=== PATIENT | female | born 1990 | race Caucasian/White ===

== ENCOUNTER 2022-06-30 09:39 | Outpatient (CLI) | payer MEDICARE, OTHER, SELFPAY ==
--- OUTSIDE RECORDS SUMMARY | 2022-06-30 09:47 | XMS_ITS | Encounter Summary ---
:1990 Author Organization [facility] Address [address] [place] [id number] Care Team Providers Name Role Phone Monty Musa MD Primary Care Provider Alfonso Tang Unavailable Unavailable Dayanara Bee MD Unavailable Min Lange MD Unavailable Unavailable Albert Gee MD Unavailable Mel Buckley RN Unavailable Douglas Cadet MD Unavailable [phone] Rosalba Pendleton MANUFACTURING FINANCE MANAGER SAUSAGE SMOKER Unavailable Rosalba Pendleton APRN [employer]AGE S[employer]KER Unavailable Douglas Cadet MD Unavailable [phone] Albert Gee MD Unavailable Reason for Referral Consultation (Routine: Next available opening) - Pending Review Specialty Diagnoses / Procedures Referred By Contact Refer red To Contact Cardiovascular Disease Diagnoses Vasovagal syncope Autonomic dysfunction Albert Gee MD [address] [facility] [address] [place] [address] Referral ID Status Reason Start Date Expiration Date Visits V isits Requested Authorized [id number] Pending 05/28/2022 05/28/2023 1 1 Review Reason for Visit Reason Comments Follow Up No questions while rooming p t, pt requested removal of a medication during e check in, phq9 score of 11 today, pt declined triage, states she speaks to counselor Consultation (Routine: Next available opening) - Pending Review Specialty Diagnoses / Procedures Referred By Contact Refer red To Contact Cardiovascular Disease Diagnoses Vasovagal syncope Albert Gee MD [address] [place] [address] [address] [place] [address] Referral ID Status Reason Start Date Expiration Date Visits V isits Requested Authorized [id number] Pending 03/03/2022 03/03/2023 1 1 Review Encounter Details Date Type Department Care Team Description 05/28/[address] [facility] Albert Geeg al syncope; Heart Clinic Christina Carlos MD Autonomic dysfunction [address] [id number] [place], [place] [phone] Social History Tobacco Use Types Packs/Day Years Used Date Smoking Tobacco: Never Smokeless Tobacco: Never Alcohol Use Standard Drinks/Week Comments No 0 (1 standard drink = 0.6 oz pure alcoho l) Sex Assigned at Date Recorded Female 10/31/2021 7:59 AM SOFTWARE ARCHITECT COVID-19 Exposure Response Date Recorded In the last 10 days, have you been in contact with No / Unsu re 05/04/2022 7:58 AM CDT someone who was confirmed or suspected to have Coronavirus/COVID-19? documented as of this encounter Patient Instructions Patient Zion Blake RN - 05/28/2022 12:00 PM CDT Images from the original note were not included. You were seen in the Electrophysiology Clinic today by: Dr Gee Plan: Medication Changes: Increase fludrocortisone to 0.2mg daily Follow up visit: 2 months If you have further questions, please utilize [employer] to contact us. Your Care Team: EP Cardiology Telephone Number Nurse Line DIAZ Linder RN For scheduling appointments: Leslie For procedure scheduling: Lizet Laguna For the Device Clinic (Pacemakers, ICDs, Loop Recorders) During business hours: [phone] After business hours: [phone]- select option 4 and ask for job code [id number]. On-call asphalt paver operator for after hours or on weekends: [phone], option #4, and ask to speak to the on-call asphalt paver operator. Cardiovascular Clinic: [address] [place] [address]. [place] [address] As always, Thank you for trusting us with your health care needs! documented in this encounter Progress Notes Brit Johnson MA - 05/28/2022 12:00 PM CDT Latricia is a 32 year old who is being evaluated via a billable video visit. How would you like to obtain your AVS? MyChart If the video visit is dropped, the invitation should be resent by: Text to cell phone: [phone] Will anyone else be joining your video visit? No SUE Villa/WAYNE Answers for HPI/ROS submitted by the patient on 05/28/2022 If you checked off any problems, how difficult have these problems made it for you to do your work, take care of things at home, or get along with other people?: Somewhat difficult PHQ9 TOTAL SCORE: 11 Albert Gee MD - 05/28/2022 12:00 PM CDT HPI: Latricia is a 32-year-old woman who is being followed in this clinic for recurrent vasovagal faints. Latricia is not working outside the home currently. She does not recognize a consistent trigger but feels that heart whether may be contributing. She continues to take fludrocortisone 0.1 daily and uses compressive stockings on her lower legs. She uses 2 Vitassium caplets daily and about 30 ounces of Pedialyte. At today's visit we reviewed her not an exercise test which was revealed excellent heart rate response and excellent stamina. Also reviewed the latest ambulatory ECG monitor in which she did have a faint but it occurred during sinus rhythm with a heart rate in the 90s. There were no significant abnormal rhythms detected. Despite the current treatment schedule Latricia continues to have symptoms. These are occurring about twice per week. 1 recent episode was typical. She was driving and felt unwell with symptoms of being hot and nausea. She pulled over to the side of the road and was noted by a witness to be sweating and guerrero. She did faint after she pulled over and open the door. These symptoms were very typical of vasovagal episode. Based on Latricia's continuing symptoms from the discussed the role of using compressive undergarments such as spanx as well as increasing her fludrocortisone to 0.2 daily. If there is does not seem to beadequate we will add midodrine our next visit. Latricia voiced understanding and agreement with the plan. PAST MEDICAL HISTORY: Past Medical History: Diagnosis Date ??? Anesthesia complication sensitivity ??? Autonomic dysfunction ??? Chronic constipation ??? Depression ??? Depressive disorder ??? Generalized anxiety disorder ??? History of colonic polyps ??? HLD (hyperlipidemia) ??? Migraines ??? Mixed sleep apnea Central and obstructive according to 05/05/16 PSG ??? Obesity ??? Other nervous system complications ??? PCOS (polycystic ovarian syndrome) ??? Stomach problems ??? Syncope CURRENT MEDICATIONS: Current Outpatient Medications Medication Sig Dispense Refill ??? clonazePAM (KLONOPIN) 0.5 MG tablet Take 0.5 mg by mouth daily ??? clonazePAM (KLONOPIN) 0.5 MG tablet Take 0.5 mg by mouth as needed ??? DULoxetine (CYMBALTA) 30 MG capsule Take 30 mg by mouth 2 times daily ??? erenumab-aooe (AIMOVIG) 140 MG/ML injection Inject 1 mL (140 mg) Subcutaneous every 30 days 1 mL12 ??? fludrocortisone (FLORINEF) 0.1 MG tablet Take 1 tablet (0.1 mg) by mouth daily 90 tablet 2 ??? hydrOXYzine (ATARAX) 50 MG tablet Take 50 mg by mouth daily ??? ipratropium (ATROVENT) 0.03 % nasal spray ??? KURVELO 0.15-30 MG-MCG tablet Take 0.15-30 tablets by mouth ??? linaclotide (LINZESS) 145 MCG capsule Take 2 capsules (290 mcg) by mouth every morning (before breakfast) 60 capsule 11 ??? meclizine (ANTIVERT) 25 MG tablet TAKE 1 TABLET BY MOUTH THREE TIMES DAILY ??? ondansetron (ZOFRAN-ODT) 4 MG disintegrating tablet DISSOLVE 1 TABLET (4 MG TOTAL) ON TONGUE EVERY 8 (EIGHT) HOURS NEEDED FOR NAUSEA. ??? order for DME Equipment being ordered: Micro climate cooling vest 1 kit 0 ??? prochlorperazine (COMPAZINE) 5 MG tablet Take 1-2 tablets (5-10 mg) by mouth every 6 hours as needed for nausea or vomiting 20 tablet 3 ??? SUMAtriptan (IMITREX) 100 MG tablet Take 1 tablet (100 mg) by mouth at onset of headache for migraine (may repeat in 2 hours as needed. Max 2 tabs in 24 hours) 12 tablet 6 ??? ubrogepant (UBRELVY) 100 MG tablet Take 1 tablet (100 mg) by mouth at onset of headache (may repeat in 2 hours as needed. Max 2 tabs in 24 hours) 20 tablet 9 PAST SURGICAL HISTORY: Past Surgical History: Procedure Laterality Date ??? APPENDECTOMY ??? APPENDECTOMY ??? BREAST SURGERY ??? COLONOSCOPY N/A 12/10/2016 Procedure: COMBINED COLONOSCOPY, SINGLE OR MULTIPLE BIOPSY/POLYPECTOMY BY BIOPSY; Surgeon: Chaitanya Colon MD; Location: [facility] ??? COLONOSCOPY WITH CO2 INSUFFLATION N/A 12/13/2014 Procedure: COLONOSCOPY WITH CO2 INSUFFLATION; Surgeon: Adelso Dawson MD; Location: [facility] ??? ORTHOPEDIC SURGERY ??? ZZC EXPLORATORY OF ABDOMEN ALLERGIES: Allergies Allergen Reactions ??? Augmentin GI Disturbance ? ? Vicodin Hp [Apap-Fd&C Blue #1-Hydrocodone] FAMILY HISTORY: Family History Problem Relation Age of Onset ??? Colon Polyps Other grandfather ??? Cancer - colorectal Father 50 ??? Diabetes Father ??? Coronary Artery Disease Father ??? Hyperlipidemia Father ??? Colon Cancer Father ??? Colon Polyps Father ??? Obesity Father ??? Cancer Other breast ??? Coronary Artery Disease Mother ??? Hyperlipidemia Mother ??? Aneurysm Mother ??? Colon Polyps Mother ??? Depression Mother ??? Anxiety Disorder Mother ??? Anesthesia Reaction Mother ??? Cerebrovascular Disease Maternal Grandmother ??? Diabetes Paternal Grandmother ??? Breast Cancer Paternal Grandmother ??? Ovarian Cancer Paternal Grandmother ??? Cerebrovascular Disease Other ??? Colon Polyps Other ??? Breast Cancer Other ??? Ovarian Cancer Sister ??? Crohn's Disease No family hx of ??? Ulcerative Colitis No family hx of SOCIAL HISTORY: Social History Tobacco Use ??? Smoking status: Never Smoker ??? Smokeless tobacco: Never Used Substance Use Topics ??? Alcohol use: No ??? Drug use: No ROS: Constitutional: No fever, chills, or sweats. Weight stable. ENT: No visual disturbance, . Cardiovascular: As per HPI. Respiratory: No cough, hemoptysis. GI: No nausea, vomiting, . : No hematuria. Integument: Negative. Psychiatric: Negative. Hematologic: , no easy bleeding. Neuro: Negative. Endocrinology: No significant heat or cold intolerance Musculoskeletal: No myalgia. Exam: There were no vitals taken for this visit. GENERAL APPEARANCE: healthy, alert and no distress HEENT: no icterus,no central cyanosis NECK:JVP not elevated RESPIRATORY:no rales, rhonchi or wheezes, no use of accessory muscles, no retractions, respirations are unlabored, normal respiratory rate NEURO: alert and oriented to person/place/time, normal speechand affect SKIN: no ecchymoses, no rashes Labs: CBC RESULTS: Lab Results Component Value Date WBC 4.7 03/04/2022 WBC 5.2 04/10/2016 RBC 4.49 03/04/2022 RBC 4.29 04/10/2016 HGB 14.0 03/04/2022 HGB 13.3 04/10/2016 HCT 40.7 03/04/2022 HCT 38.9 04/10/2016 MCV 91 03/04/2022 MCV 91 04/10/2016 MCH 31.2 03/04/2022 MCH 31.1 04/10/2016 MCHC 34.4 03/04/2022 MCHC 34.2 04/10/2016 RDW 12.9 03/04/2022 RDW 12.2 04/10/2016 PLT 222 03/04/2022 PLT 232 04/10/2016 PLT 257 01/07/2015 BMP RESULTS: Lab Results Component Value Date NA 135 03/04/2022 NA 137 04/10/2016 POTASSIUM 4.1 03/04/2022 POTASSIUM 3.9 04/10/2016 CHLORIDE 108 03/04/2022 CHLORIDE 103 04/10/2016 CO2 25 03/04/2022 CO2 24 01/07/2015 ANIONGAP 2 (L) 03/04/2022 ANIONGAP 10 04/10/2016 GLC 82 03/04/2022 GLC 82 04/10/2016 BUN 9 03/04/2022 BUN 8 01/07/2015 CR 0.56 03/04/2022 CR 0.72 04/10/2016 GFRESTIMATED >90 03/04/2022 GFRESTIMATED >90 Non GFR Calc 01/07/2015 GFRESTBLACK >90 GFR Calc 01/07/2015 JESUS 9.3 03/04/2022 JESUS 9.3 04/10/2016 INR RESULTS: No results found for: INR Procedures: PULMONARY FUNCTION TESTS: No flowsheet data found. ECHOCARDIOGRAM: No results found for this or any previous visit (from the past 8760 hour(s)). Assessment and Plan: 1. Recurrent vasovagal syncope resistant to current treatment strategy 2. Excellent exercise tolerance based on Brad study 3. Documented syncopal episode on ambulatory monitor in sinus rhythm in the 90s. Plan 1. Increase fludrocortisone to 0.2 mg daily- Please provide prescription to [facility] for 3-month supply and 4 refills 2. Follow-up clinic visit in approximately 2 months to assess need for adding midodrine Video on 12: 00; video of 12: 20 Platform Doximity Patient at home; clinic [facility] heart Total elapsed time today with chart review, video visit and documentation 40 minutes I very much appreciated the opportunity to see and assess Latricia Hatch in the clinic today. Please do not hesitate to contact my office if you have any questions or concerns. Albert Gee MD Cardiac Arrhythmia Service [facility] [phone] CC ALBERT GEE documented in this encounter Nursing Notes Brit Johnson MA - 05/28/2022 12:00 PM CDT Chief Complaint Patient presents with ??? Follow Up No questions while rooming pt, pt requested removal of a medication during e check in, phq9 score of 11 today, pt declined triage, states she speaks to counselor Patient declined individual allergy and medication review by information support project manager because patient denies any changes since echeck-in completion and states all information entered during echeck-in remains accurate. SUE Villa/WAYNE Zion Rendon RN - 05/28/2022 12:00 PM CDT Received PHQ9 red alert. Virtual bottle gauger documented that patient declined speaking to triage nurse, as she sees a counselor. Vice President Of Advertising has also notified provider per protocol. documented in this encounter Miscellaneous Notes Addendum Note - Zion Rendon RN - 05/28/2022 12:00 PM CDT Addended by: ZION RENDON on: 05/28/2022 02:08 PM Modules accepted: Orders, SmartSet documented in this encounter Plan of Treatment Upcoming Encounters Date Type Specialty Care Team Description 08/19/2022 Office Visit Gastroenterology Mirza Vasquez MD [address] [place] [id number] (Wo rk) Scheduled Referrals Name Type Priority Associated Diagnoses Order S chedule Follow-Up with Referral Routine: Next Vasovagal syncop e Expected: Cardiology available opening Autonomic 07/28/2022 dysfunction (Approximate), Expires: 05/28/2023 documented as of this encounter Visit Diagnoses Diagnosis Vasovagal syncope Syncope and collapse Autonomic dysfunction Unspecified disorder of autonomic nervou s system documented in this encounter Additional Health Concerns Assessment Noted Time PHQ-9 Depression Total Score: 11 05/28/2022 11:52 AM C DT documented as of this encounter Care Teams Cement Block Maker Relationship Specialty Start Date End Date Monty Musa, PCP - General Family Medicine 08/13/21 [facility] [address] [place] [address] Alfonso Tang Family Practice 08/13/21 Dayanara Bee MD Pediatrics 12/26/[address] [place] [address] [address] [place], [place] [id number] Min Lange MD Neurology 03/30/16 Albert Christopher MD Cardiology 10/27/16 MD [place] [address] [facility] [address] [place] [address] Mel Buckley, Nurse Coordinator Physical Medicine and 12/02/16 senior c software engineer Douglas Cadet MD Gastroenterology 08/13/21 [facility] [place] [address] [place] [address] Rosalba Pendleton Nurse Practitioner Neurology 09/05/21 [facility] [employer] SAUSAGE SMOKER [address] [address] Rosalba Pendleton Assigned Neuroscience 11/09/21 Alexi, Provider MANUFACTURING FINANCE MANAGER SAUSAGE SMOKER [address] [id number] Douglas Cadet Assigned 03/14/22 [facility] [address] [place] [address] Albert Gee Assigned Heart and 03/14/22 MD [place] Vascular Provider [address] [facility] [address] [place], [place] [address] documented as of this encounter
--- OUTSIDE RECORDS SUMMARY | 2022-06-30 09:47 | XMS_ITS | Encounter Summary ---
:1990 Author Organization [place] Address [address] [place] [address] Care Team Providers Name Role Phone Monty Musa MD Primary Care Provider Alfonso Tang Unavailable Unavailable Dayanara Bee MD Unavailable Min Lange MD Unavailable Unavailable Marlo Madsen MD Unavailable Mel Buckley RN Unavailable Douglas Cadet MD Unavailable [phone] Rosalba Pendleton SERVICES ACCOUNT MANAGER MANAGER SEARCH ENGINE Unavailable Rosalba Pendleton APRN MANAGER SEARCH ENGINE Unavailable Douglas Cadet MD Unavailable [phone] Marlo Madsen MD Unavailable Reason for Referral Diagnostic Imaging NM (Routine) - Closed Specialty Diagnoses / Procedures Referred By Contact Refer red To Contact Diagnoses Irritable bowel syndrome with constipation Chronic nausea Chronic abdominal pain Douglas Cadet, Procedures NM Gastric emptying [address] [place], [place] [address] Referral ID Status Reason Start Date Expiration Date Visits Requ ested Visits Authorized [id number] Closed 03/04/2022 03/04/2023 1 1 Reason for Visit Diagnostic Imaging NM (Routine) - Closed Specialty Diagnoses / Procedures Referred By Contact Refer red To Contact Diagnoses Irritable bowel syndrome with constipation Chronic nausea Chronic abdominal pain Douglas Cadet, Procedures NM Gastric emptying MD [address] [place], [place] [address] Referral ID Status Reason Start Date Expiration Date Visits Requ ested Visits Authorized [id number] Closed 03/04/2022 03/04/2023 1 1 Encounter Details Date Type Department Care Team Description 05/04/2022 Hospital Encounter [facility] Douglas Cadet Ir ritable bowel syndrome with constipation; [facility] Imaging MD [place] Chronic nausea; 500 [facility] 500 [facility] Chronic abdominal pain [facility] [address] [place], [place] [phone] [address] Social History Tobacco Use Types Packs/Day Years Used Date Smoking Tobacco: Never Smokeless Tobacco: Never Alcohol Use Standard Drinks/Week Comments No 0 (1 standard drink = 0.6 oz pure alcoho l) Sex Assigned at Date Recorded Female 10/31/2021 7:59 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 documented as of this encounter Medications at Time of Discharge Medication Sig Dispensed Refills Start Date End Date clonazePAM (KLONOPIN) Take 0.5 mg by mouth 0 07/16 0.5 MG tablet daily DULoxetine (CYMBALTA) 30 Take 30 mg by mouth 0 MG capsule 2 times daily erenumab-aooe (AIMOVIG) Inject 1 mL (140 mg) 1 mL 12 140 MG/ML Subcutaneous every injectionIndications: 30 days Intractable 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 hydrOXYzine (ATARAX) 50 Take 50 mg by mouth 0 MG tablet daily ipratropium (ATROVENT) 0 10/13/2021 0.03 % nasal spray KURVELO 0.15-30 MG-MCG Take 0.15-30 tablets 0 tablet by mouth linaclotide (LINZESS) Take 2 capsules (290 60 capsule 11 02/12 145 MCG mcg) by mouth every capsuleIndications: morning (before Irritable bowel syndrome breakfast) with constipation, Chronic idiopathic constipation meclizine (ANTIVERT) 25 TAKE 1 TABLET BY 0 2015 MG tablet MOUTH THREE TIMES DAILY ondansetron (ZOFRAN-ODT) DISSOLVE 1 TABLET (4 0 0 12/27/2015 4 MG disintegrating MG TOTAL) ON TONGUE tablet EVERY 8 (EIGHT) HOURS NEEDED FOR NAUSEA. order for Equipment being 1 kit 0 04/03/2015 DMEIndications: ordered: Micro Dysautonomia (H), Heat climate cooling vest intolerance prochlorperazine Take 1-2 tablets 20 tablet 3 01/14/2022 (COMPAZINE) 5 MG (5-10 mg) by mouth tabletIndications: every 6 hours as Intractable chronic needed for nausea or migraine without aura vomiting and without status migrainosus SUMAtriptan (IMITREX) Take 1 tablet (100 12 tablet 6 2021 100 MG mg) by mouth at tabletIndications: onset of headache Intractable chronic for migraine (may migraine without aura repeat in 2 hours as and without status needed. Max 2 tabs migrainosus in 24 hours) ubrogepant (UBRELVY) 100 Take 1 tablet (100 20 tablet 9 MG tabletIndications: mg) by mouth at Intractable chronic onset of headache migraine without aura (may repeat in 2 and without status hours as needed. Max migrainosus 2 tabs in 24 hours) fludrocortisone Take 1 tablet (0.1 90 tablet 2 03/03/2022 0 05/28/2022 (FLORINEF) 0.1 MG mg) by mouth daily tabletIndications: Autonomic dysfunction documented as of this encounter Plan of Treatment Upcoming Encounters Date Type Specialty Care Team Description 08/19/2022 Office Visit Gastroenterology Mirza Vasquez MD [address] [place] [address] [id number] (Wo rk) documented as of this encounter Procedures Procedure Name Priority Date/Time Associated Diagnosis Comme nts NM GASTRIC EMPTYING Routine 05/04/2022 12:46 PM Irritable paige l Results for this CDT syndrome with procedure are in constipation the results Chronic nausea section. Chronic abdominal pain documented in this encounter Results NM Gastric emptying (05/04/2022 12:46 PM CDT) Anatomical Region Laterality Modality Abdomen/Pelvis Nuclear Medicine Specimen (Source) Anatomical Location Collection Method / Collectio n Time Received Time / Laterality Volume Impressions 05/04/2022 1:28 PM CDT IMPRESSION: Upper limits of normal for gastric emptying. ?? Reference Range: Gastric emptying - 30 minutes: <70% of retention (> 30% e mptying) suggests abnormally ?? fast emptying. - 60 minutes: <90% retention (>10% empty ing) is normal; less than 30% ?? retention (>70% emptying) suggests a bnormally rapid emptying. - 90 minutes: <65% retention (> 35% empt ruben) is normal. - 120 minutes: <60% retention (> 40% emp tying) is normal. - 180 minutes: <30% retention (> 70% emp tying) is normal. Gastric emptying T-1/2: Solid: The normal range is 60-105 minute s Liquid only: Normal range is 10-45 minut es. Liquid only-children: At 60 minutes, nor mal range is 44-58 % . Liquid only-infants: At 60 minutes, norm al range is 32-64 %. I have personally reviewed the examinati on and initial interpretation and I agree with the findings. DEMOND REMY MD Narrative 05/04/2022 1:28 PM CDT EXAM: ??NM GASTRIC EMPTYING, 05/04/2022 12:46 PM. HISTORY: Irritable bowel syndrome with c onstipation; Chronic nausea; Chronic abdominal pain; Chronic abdomina l pain TECHNIQUE: The patient ingested 2.2 mCi of Tc-99m sulfur colloid in 2 eggs and 2 toast with jelly. Static imag es were acquired at approximately 1 hour intervals out throu gh 4 hours using a dual head gamma camera in an anterior and posterio r position. The calculation of emptying was based on dual head imaging with geometric mean calculations. ??A Linear square fit was calculated to the emptying curve to determine the amount of residua l activity at each time point. FINDINGS: Percent retention at 60 min = 89%. Percent retention at 120 min = 58%. Percent retention at 180 min = 29%. Percent retention at 240 min =8%. T 1/2 emptying time = ??136 mins. Procedure Note Demond Remy MD - 022 EXAM: NM GASTRIC EMPTYING, 05/04/2022 12: 46 PM. HISTORY: Irritable bowel syndrome with c onstipation; Chronic nausea; Chronic abdominal pain; Chronic abdomina l pain TECHNIQUE: The patient ingested 2.2 mCi of Tc-99m sulfur colloid in 2 eggs and 2 toast with jelly. Static imag es were acquired at approximately 1 hour intervals out throu gh 4 hours using a dual head gamma camera in an anterior and posterio r position. The calculation of emptying was based on dual head imaging with geometric mean calculations. A Linear square fit was ca lculated to the emptying curve to determine the amount of residua l activity at each time point. FINDINGS: Percent retention at 60 min = 89%. Percent retention at 120 min = 58%. Percent retention at 180 min = 29%. Percent retention at 240 min =8%. T 1/2 emptying time = 136 mins. IMPRESSION: Upper limits of normal for g astric emptying. Reference Range: Gastric emptying - 30 minutes: <70% of retention (> 30% e mptying) suggests abnormally fast emptying. - 60 minutes: <90% retention (>10% empty ing) is normal; less than 30% retention (>70% emptying) suggests abno rmally rapid emptying. - 90 minutes: <65% retention (> 35% empt ruben) is normal. - 120 minutes: <60% retention (> 40% emp tying) is normal. - 180 minutes: <30% retention (> 70% emp tying) is normal. Gastric emptying T-1/2: Solid: The normal range is 60-105 minute s Liquid only: Normal range is 10-45 minut es. Liquid only-children: At 60 minutes, nor mal range is 44-58 % . Liquid only-infants: At 60 minutes, norm al range is 32-64 %. I have personally reviewed the examinati on and initial interpretation and I agree with the findings. DEMOND REMY MD [place] MD IMG NM ORDERABLES documented in this encounter Visit Diagnoses Diagnosis Irritable bowel syndrome with constipati on Irritable bowel syndrome Chronic nausea Nausea alone Chronic abdominal pain Abdominal pain, unspecified site documented in this encounter Administered Medications Inactive Administered Medications - up to 3 most recent administrations Medication Order MAR Action Action Date Dose Rate Site technetium sulfur colloid Given 05/04/2022 8:23 AM 2.2 millicuri es radioisotope oral solution CDT 1.6-2.4 millicurie 1.6-2.4 millicurie, Oral, ONCE, On 05/04/22 at 0830, For 1 dose, Supplied by, and administered by Nuclear Medicine. documented in this encounter Additional Health Concerns Assessment Noted Time PHQ-9 Depression Total Score: 17 01/14/2022 7:02 AM CD T documented as of this encounter Care Teams Corporate Compliance Officer Relationship Specialty Start Date End Date Monty Musa, PCP - General Family Medicine 08/13/21 [facility] [address] [place] [address] Alfonso Tang Family Practice 08/13/21 Dayanara Bee MD Pediatrics 12/26/[address] [place] [address] 75 [place], [place] [address] Min Lange MD Neurology 03/30/16 Marlo Christopher MD Cardiology 10/27/16 MD Terrance [address] [place] [address] 508 [place], [place] [address] Mel Buckley, Nurse Coordinator Physical Medicine and 12/02/16 salt lifter Douglas Cadet MD Gastroenterology 08/13/21 MD [place] [address] [place], [place] [address] Rosalba Pendleton Nurse Practitioner Neurology 09/05/21 Alexi, SERVICES ACCOUNT MANAGER MANAGER SEARCH ENGINE 909 [id number] [place], [place] [address] Rosalba Pendleton Assigned Neuroscience 11/09/21 Alexi, Provider SERVICES ACCOUNT MANAGER MANAGER SEARCH ENGINE [id number] [place], [place] [id number] Douglas Cadet Assigned 03/14/22 MD [place] Gastroenterology [address] [facility] Provider [place], [place] [id number] Marlo Madsen Assigned Heart and 03/14/22 MD [place] Vascular Provider 420 [facility] [address] [place], [place] [address] documented as of this encounter
--- OUTSIDE RECORDS SUMMARY | 2022-06-30 09:47 | XMS_ITS | Encounter Summary ---
:1990 Author Organization [place] Address [address] [place] [address]. [place] [address] Care Team Providers Name Role Phone Monty Musa MD Primary Care Provider Alfonso aTng Unavailable Unavailable Dayanara Bee MD Unavailable Min Lange MD Unavailable Unavailable Marlo Madsen MD Unavailable Mel Buckley RN Unavailable Douglas Cadet MD Unavailable [phone] Rosalba Pendleton APRN COMPLAINT MANAGER Unavailable Rosalba Pendleton APRN COMPLAINT MANAGER Unavailable Reason for Visit CV Testing (Routine) - Pending Review Specialty Diagnoses / Procedures Referred By Contact Refer red To Contact Diagnoses Vasovagal syncope Marlo Madsen MD Procedures Cardiac Event Monitor Adult/Pediatric [address] [facility] 508 [place], [place] [address] Referral ID Status Reason Start Date Expiration Date Visits V isits Requested Authorized [id number] Pending 03/03/2022 03/03/2023 1 1 Review Encounter Details Date Type Department Care Team Description 03/03/2022 Ancillary Procedure [facility] Marlo Madsen, Syncope [facility] Christina GAUTHIER [address] [place] [address] [phone] (Wo rk) Social History Tobacco Use Types Packs/Day Years Used Date Smoking Tobacco: Never Smokeless Tobacco: Never Alcohol Use Standard Drinks/Week Comments No 0 (1 standard drink = 0.6 oz pure alcoho l) Sex Assigned at Date Recorded Female 10/31/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 documented as of this encounter Plan of Treatment Upcoming Encounters Date Type Specialty Care Team Description 08/19/2022 Office Visit Gastroenterology Mirza Vasquez MD [address] [place] [phone] (Wo rk) documented as of this encounter Procedures Procedure Name Priority Date/Time Associated Diagnosis Comme nts CARDIAC EVENT MONITOR Routine 03/03/2022 10:58 AM Syncope APPLICATION AND PROVIDER CDT INTERPRETATION documented in this encounter Results CARDIAC EVENT MONITOR APPLICATION AND PROVIDER INTERPRETATION (03/03/2022 10:58 AM CDT) Anatomical Region Laterality Modality Other Specimen (Source) Anatomical Location Collection Method / Collectio n Time Received Time / Laterality Volume Narrative This result has an attachment that is no t available. Marlo Madsen MD CV CARDIAC SERVICES ORDERABL ES documented in this encounter Visit Diagnoses Diagnosis Syncope Syncope and collapse documented in this encounter Additional Health Concerns Assessment Noted Time PHQ-9 Depression Total Score: 17 01/14/2022 7:02 AM CD T documented as of this encounter Care Teams Marine Equipment Test Engineer Relationship Specialty Start Date End Date Monty Musa, PCP - General Family Medicine 08/13/21 [facility] [address] [place] [address] Alfonso Tang Family Practice 08/13/21 Dayanara Bee MD MD Pediatrics 12/26/14 420 [facility] 75 [place] [address] Min Lange MD Neurology 03/30/16 Marlo Christopher MD Cardiology 10/27/16 MD [place] 420 [facility] 508 [place] [address] Mel Buckley, RN Nurse Coordinator Physical Medicine and 12/02/16 Rehabilitation (Work) Douglas Cadet MD Gastroenterology 08/13/21 MD [place] 500 [place] [address] Rosalba Pendleton Nurse Practitioner Neurology 09/05/21 Alexi, DIRECT CARE PROVIDER COMPLAINT MANAGER [address] [address] Rosalba Pendleton Assigned Neuroscience 11/09/21 Alexi, Provider DIRECT CARE PROVIDER COMPLAINT MANAGER [address] [address] documented as of this encounter
--- OUTSIDE RECORDS SUMMARY | 2022-06-30 09:47 | XMS_ITS | Encounter Summary ---
:1990 Author Organization [place] Address [address] [place] [address] Care Team Providers Name Role Phone Monty Musa MD Primary Care Provider Alfonso Tang Unavailable Unavailable Dayanara Bee MD Unavailable Min Lange MD Unavailable Unavailable Marlo Madsen MD Unavailable Mel Buckley RN Unavailable Douglas Cadet MD Unavailable [phone] Rosalba Pendleton APRN LEAD PONY RIDER Unavailable Rosalba Pendleton APRN LEAD PONY RIDER Unavailable Douglas Cadet MD Unavailable [phone] Marlo Madsen MD Unavailable Encounter Details Date Type Department Care Team Description 05/04/2022 Travel Social History Tobacco Use Types Packs/Day Years Used Date Smoking Tobacco: Never Smokeless Tobacco: Never Alcohol Use Standard Drinks/Week Comments No 0 (1 standard drink = 0.6 oz pure alcoho l) Sex Assigned at Date Recorded Female 10/31/2021 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 documented as of this encounter Plan of Treatment Upcoming Encounters Date Type Specialty Care Team Description 08/19/2022 Office Visit Gastroenterology Mirza Vasquez MD 909 [place], [place] [phone] (Wo rk) documented as of this encounter Visit Diagnoses Not on filedocumented in this encounter Additional Health Concerns Assessment Noted Time PHQ-9 Depression Total Score: 17 01/14/2022 7:02 AM CD T documented as of this encounter Care Teams Custom Seamstress Relationship Specialty Start Date End Date Monty Musa, PCP - General Family Medicine 08/13/21 [facility] [address] [place] [address] Alfonso Tang Family Practice 08/13/21 Dayanara Bee MD Pediatrics 12/26/[address] [place] [address] 75 [place], [place] [address] Min Lange MD Neurology 03/30/16 Marlo Christopher MD Cardiology 10/27/16 MD [place] 420 [facility] 508 [place], [place] [address] Mel Buckley, Nurse Coordinator Physical Medicine and 12/02/16 chemical laboratory tester Douglas Cadet MD Gastroenterology 08/13/21 MD [place] 500 [place] [address] Rosalba Pendleton Nurse Practitioner Neurology 09/05/21 BAM TruongN LEAD PONY RIDER 909 [id number] [place], [place] [address] Rosalba Pendleton Assigned Neuroscience 11/09/21 Alexi, Provider FINANCIAL COMPLIANCE MANAGER LEAD PONY RIDER 909 [facility] [id number] [place], [place] 3[address] Douglas Cadet Assigned 03/14/22 MD [place] Gastroenterology 500 [facility] Provider [place], [place] [address] Marlo Madsen Assigned Heart and 03/14/22 MD [place] Vascular Provider 420 [facility] [address] [place] [address] documented as of this encounter
--- OUTSIDE RECORDS SUMMARY | 2022-06-30 09:47 | XMS_ITS | Encounter Summary ---
:1990 Author Organization [place] Address [address] [place] [address]. [place] [address] Care Team Providers Name Role Phone Monty Musa MD Primary Care Provider Alfonso Tang Unavailable Unavailable Dayanara Bee MD Unavailable Min Lange MD Unavailable Unavailable Marlo Madsen MD Unavailable Mel Buckley RN Unavailable Douglas Cadet MD Unavailable [phone] Rosalba Pendleton COUNSELING SERVICES DIRECTOR ADULT PROTECTIVE CASEWORKER Unavailable Rosalba Pendleton APRN ADULT PROTECTIVE CASEWORKER Unavailable Douglas Cadet MD Unavailable [phone] Marlo Madsen MD Unavailable Encounter Details Date Type Department Care Team Description 03/17/2022 Telephone [facility] Nathan Finnegan Hospitalists [address] [place] [address] [phone] [place] [address] 282 [place] [address] (Wo rk) Social History Tobacco Use Types Packs/Day Years Used Date Smoking Tobacco: Never Smokeless Tobacco: Never Alcohol Use Standard Drinks/Week Comments No 0 (1 standard drink = 0.6 oz pure alcoho l) Sex Assigned at Date Recorded Female 10/31/2021 7:59 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 documented as of this encounter Miscellaneous Notes Telephone Encounter - Nathan Finnegan MD - 03/17/2022 12:13 AM CDT Received call from [facility] that patient had a syncope event; I am told that the rhythm was sinus at a rate of 90 bpm during the encounter. Patient estimates she was out for 20 - 30 seconds during the episode. She declined medical attention. Will route to Dr. Madsen for further assessment and planning. documented in this encounter Plan of Treatment Upcoming Encounters Date Type Specialty Care Team Description 08/19/2022 Office Visit Gastroenterology Mirza Vasquez MD [address] [place] [address] [phone] (Wo rk) documented as of this encounter Visit Diagnoses Not on filedocumented in this encounter Additional Health Concerns Assessment Noted Time PHQ-9 Depression Total Score: 17 01/14/2022 7:02 AM CD T documented as of this encounter Care Teams Casino Floor Runner Relationship Specialty Start Date End Date Monty Musa, PCP - General Family Medicine 08/13/21 [facility] [address] [place] [address] Alfonso Tang Family Practice 08/13/21 Dayanara Bee MD Pediatrics 12/26/[address] [place] [address] 75 [place], [place] [address] Min Lange MD Neurology 03/30/16 Marlo Christopher MD Cardiology 10/27/16 MD [place] 420 [facility] 508 [place], [place] [address] Mel Buckley, Nurse Coordinator Physical Medicine and 12/02/16 clinical trial specialist Douglas Cadet MD Gastroenterology 08/13/21 MD [place] 500 [place] [address] Rosalba Pendleton Nurse Practitioner Neurology 09/05/21 Alexi, COUNSELING SERVICES DIRECTOR ADULT PROTECTIVE CASEWORKER [address] [address] Rosalba Pendleton Assigned Neuroscience 11/09/21 Alexi, Provider COUNSELING SERVICES DIRECTOR ADULT PROTECTIVE CASEWORKER [address] [address] Douglas Cadet Assigned 03/14/22 MD [place] Gastroenterology 500 [place] [address] Marlo Madsen Assigned Heart and 03/14/22 MD [place] Vascular Provider [address] [address] [place], [place] [address] documented as of this encounter
--- OUTSIDE RECORDS SUMMARY | 2022-06-30 09:47 | XMS_ITS | Encounter Summary ---
:1990 Author Organization [place] Address [address] [place] [address] Care Team Providers Name Role Phone Monty Musa MD Primary Care Provider Alfonso Tang Unavailable Unavailable Dayanara Bee MD Unavailable Min Lange MD Unavailable Unavailable Marlo Madsen MD Unavailable Mel Buckley RN Unavailable Douglas Cadet MD Unavailable [phone] Rosalba Pendleton APRN CHEESE CUTTER Unavailable Rosalba Pendleton APRN CHEESE CUTTER Unavailable Douglas Cadet MD Unavailable [phone] Marlo Madsen MD Unavailable Encounter Details Date Type Department Care Team Description 03/18/2022 Travel Social History Tobacco Use Types Packs/Day Years Used Date Smoking Tobacco: Never Smokeless Tobacco: Never Alcohol Use Standard Drinks/Week Comments No 0 (1 standard drink = 0.6 oz pure alcoho l) Sex Assigned at Date Recorded Female 10/31/2021 7:59 AM 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 documented as of this encounter Plan of Treatment Upcoming Encounters Date Type Specialty Care Team Description 08/19/2022 Office Visit Gastroenterology Mirza Vasquez MD 909 [place], [place] [id number] (Wo rk) documented as of this encounter Visit Diagnoses Not on filedocumented in this encounter Additional Health Concerns Assessment Noted Time PHQ-9 Depression Total Score: 17 01/14/2022 7:02 AM CD T documented as of this encounter Care Teams Extrusion Press Adjuster Relationship Specialty Start Date End Date Monty Musa, PCP - General Family Medicine 08/13/21 [facility] [address] [place] [address] Alfonso Tang Family Practice 08/13/21 Dayanara Bee MD Pediatrics 12/26/[address] [place] [address] 75 [place], [place] [address] Min Lange MD Neurology 03/30/16 Marlo Christopher MD Cardiology 10/27/16 MD [place] 420 [facility] 508 [place], [place] [address] Mel Buckley, Nurse Coordinator Physical Medicine and 12/02/16 corporate account executive Douglas Cadet MD Gastroenterology 08/13/21 MD [place] 500 [place] [address] Rosalba Pendleton Nurse Practitioner Neurology 09/05/21 BAM TruongN CHEESE CUTTER 909 [id number] [place], [place] [address] Rosalba Pendleton Assigned Neuroscience 11/09/21 Alexi, Provider TRAFFIC COURT REFEREE CHEESE CUTTER 909 [facility] [id number] [place], [place] [address] Douglas Cadet Assigned 03/14/22 MD [place] Gastro[facility] 500 [facility] Provider [place], [place] [address] Marlo Madsen Assigned Heart and 03/14/22 MD [place] Vascular Provider 420 [facility] [address] [place] [address] documented as of this encounter
--- OUTSIDE RECORDS SUMMARY | 2022-06-30 09:47 | XMS_ITS | Encounter Summary ---
:1990 Author Organization [facility] Address [address] [place] [id number] Care Team Providers Name Role Phone Monty Musa MD Primary Care Provider Alfonso Tang Unavailable Unavailable Dayanara Bee MD Unavailable Min Lange MD Unavailable Unavailable Marlo Madsen MD Unavailable Mel Buckley RN Unavailable Douglas Cadet MD Unavailable [phone] Rosalba Pendleton APRN GUEST ASSOCIATE Unavailable Rosalba Pendleton APRN GUEST ASSOCIATE Unavailable Reason for Referral Diagnostic Imaging NM (Routine) - Closed Specialty Diagnoses / Procedures Referred By Contact Refer red To Contact Diagnoses Irritable bowel syndrome with constipation Chronic nausea Chronic abdominal pain Douglas Cadet, Procedures NM Gastric emptying [address] [place] [place], [place] [address] Referral ID Status Reason Start Date Expiration Date Visits Requ ested Visits Authorized [id number] Closed 03/04/2022 03/04/2023 1 1 Consultation (Routine) - Pending Review Specialty Diagnoses / Procedures Referred By Contact Refer red To Contact Diagnoses Irritable bowel syndrome with constipation Chronic idiopathic constipation Douglas Cadet MD [address] [place] [place], [place] [address] Referral ID Status Reason Start Date Expiration Date Visits V isits Requested Authorized [id number] Pending 03/04/2022 03/04/2023 1 1 Review Scheduling Instructions Refer to Pelvic Floor Center Reason for Visit Reason Comments New Patient Consultation (Routine) - Pending Review Specialty Diagnoses / Procedures Referred By Contact Refer red To Contact Gastroenterology Diagnoses Irritable bowel syndrome with constipation Monty Musa MD [facility] Gastroenterology [address] 4[address] [place] [phone] Fax: Referral ID Status Reason Start Date Expiration Date Visits V isits Requested Authorized [id number] Pending 08/12/2021 08/12/2022 1 1 Review Encounter Details Date Type Department Care Team Description 03/04/2022 Office Visit [facility] Monty Musa MD [facility] [address] [place] [address] Irritable bowel syndrome with constipati on (Primary Dx); Gastroenterology Clinic Douglas Cadet MD [address] [place] [id number] Chronic idiopathic constipation; Jerome Chronic nausea; [address] [place] [address] Chronic abdominal pain 4th [place] [address] Social History Tobacco Use Types Packs/Day Years Used Date Smoking Tobacco: Never Smokeless Tobacco: Never Alcohol Use Standard Drinks/Week Comments No 0 (1 standard drink = 0.6 oz pure alcoho l) Sex Assigned at Date Recorded Female 10/31/2021 7:59 AM [employer] COVID-19 Exposure Response Date Recorded In the last 10 days, have you been in contact with No / Unsu re 03/04/2022 10:51 AM CDT someone who was confirmed or suspected to have Coronavirus/COVID-19? documented as of this encounter Last Filed Vital Signs Vital Sign Reading Time Taken Comments Blood Pressure 114/84 03/04/2022 10:53 AM CDT Pulse 78 03/04/2022 10:53 AM CDT Temperature - - Respiratory Rate - - Oxygen Saturation 99% 03/04/2022 10:53 AM CDT Inhaled Oxygen Concentration - - Weight 70 kg (154 lb 4.8 oz) 03/04/2022 10:53 AM CDT Height 170.2 cm (5' 7) 03/04/2022 10:53 AM CDT Body Mass Index 24.17 03/04/2022 10:53 AM CDT documented in this encounter Patient Instructions Patient InstructionsDouglas Cadet MD - 03/04/2022 11:20 AM CDT It is very nice to meet you today. I have outlined my recommendations below. We will work to improve your constipation. We will restart the Linzess at 290 mcg daily. You can always decrease the dose to 145 mcg if the higher dose causes too much diarrhea. While we are waiting for the Linzess to get approved you can increase your miralax to 2 heaping capfuls. If needed you can always go up to 3 capfuls. Ok to take the dulcolax if you don't have a BM after 3-4 (hopefully the need for this decreases) We will place a referral to the pelvic floor center. This can be helpful to manage constipation if there is pelvic floor dysfunction. Call my nurse if you do not hear from anyone about scheduling this within 1-2 weeks. Usually the pelvic floor center is booking out 3 months We will check some routine labs today I will see if I can find a way to get you a new TENDS unit documented in this encounter Progress Notes Douglas Cadet MD - 03/04/2022 11:20 AM CDT GI CLINIC VISIT CC/REFERRING MD: Monty Musa REASON FOR CONSULTATION: Monty Musa for Chief Complaint Patient presents with ??? New Patient Chronic GI symptoms ASSESSMENT/PLAN: 1. Chronic idiopathic constipation- likely has underlying slow transit. There may be a component of pelvic floor dysfunction. She has done well on Linzess in the past. We will restart this at 290 mcg/day. When she starts the Linzess she can take the MiraLAX as needed. Until she has access to the Linzess she can increase her MiraLAX to 2 capfuls per day. We will refer her to the pelvic floor center tosee if there is any evidence of pelvic floor dysfunction. If she is present she may benefit from biofeedback or physical therapy - Linzess 290 mcg daily. She will let us know if there is an issue filling the prescription - MiraLAX 2 capfuls per day until she starts the Linzess. Then decrease to 1 capful per day. Adjust as needed - Referral to pelvic floor center - 64 ounces of water daily - Continue to work to obtain fiber in diet 2. Nausea- currently, seems to be driven by underlying constipation. Manage constipation as above. Also, her migraines are driving factor. These are improved now that she has started her new medication. She will continue to follow with neurology. There has been a question of delayed gastric emptying on an EGD in the past. We will order a gastric emptying study but only do this after her constipation is improved. - Manage constipation - Obtain gastric emptying study in 2 months after she is on the Linzess - Continue to manage chronic migraines with neurology. 3. Chronic abdominal pain- likely contributed by constipation and visceral hypersensitivity. Manage as above. We will see how best we can get her a new TENS unit. The patient would like to follow-up with Dr. Vasquez going forward. We will work to get her a follow-up in 4 months. RTC [address] Vasquez Thank you for this consultation. It was a pleasure to participate in the care of this patient; please contact us with any further questions. I spent a total of 60 minutes during the day of encounter performed chart review, meeting with patient, patient counseling, care coordination, and documentation. This note was created with voice recognition software, and while reviewed for accuracy, typos may remain. Douglas Cadet MD Inflammatory Bowel Disease Program Division of Gastroenterology, Hepatology and Nutrition [facility] Pager: [phone] HPI: Latricia is a very pleasant 32-year-old female with long history of chronic diabetic constipation, chronic nausea, chronic migraines, dysautonomia who is here to reestablish care in the GI clinic and [facility]. She has a long history of GI issues and had follow-up with Dr. Dawson did [facility] as well as Dr. Vasquez. She then moved to [place] after getting . Unfortunately, she has not and has now moved back to [place]. She tried to set up an appointment with Dr. Vasquez but there was no adequate opening. She is now seeing me today in clinic. 1. Constipation-her main complaint today is ongoing issues with constipation. Please see Dr. Vasquez's prior notes for full details. In the past she was actually quite well managed on Linzess 290 mcg daily with MiraLAX as needed. In doing this she would have multiple looser bowel movements alternating with some harder bowel movements most days of the week. She will take MiraLAX as needed. When she moved on to [place] her insurance no longer cover the Linzess. She transitioned to taking MiraLAX 1 capful per day. On this regimen she goes about 4 to 5 days without a bowel movement. She then will take a Dulcolax and then have multiple bowel movements (up to 6). His bowel movements start at a Bossier score of 1 and then loosen up to a Bossier score of 4. She is definitely interested in going back on the Linzess. She has never been seen at the pelvic floor center. She does note sometimes that she has to insert her finger to get things positioned correctly to have a bowel movement. 2. Chronic nausea-also longstanding. Currently, she associates her nausea most significantly with when her constipation is less well controlled. Nausea appears improved when she is having more regular bowel movements and worse when she is now. Nausea also is worse with her migraines. Migraines are better controlled now on her new medication. 3. Question of delayed gastric emptying-she reports that she has not had a Gastrografin study since her adolescence. She states that while in [place] she had an upper endoscopy that showed residual food in her stomach even though she has been n.p.o. for 15 hours. She cannot remember whether she was constipated at the time of access. 4. Chronic abdominal pain-she attributes this to her chronic constipation and irritable bowel syndrome and possibly delayed gastric emptying. At baseline it is 4 out of 10 in severity. It can worsen and go up to 8 out of 10. She derives great benefit from a TENS unit. Her current TENS unit is very oldand she is wondering if she can get a prescription for a new one. 5. Personal history of colon polyps and family history of colon cancer under the age of 60-she has had multiple colonoscopies. Most recent in our system was in 2017 with 2 hyperplastic polyps at the rectosigmoid junction. She reports she had another colonoscopy in 2019 in [place] with 1 small cecal adenoma and some hyperplastic polyps. She did have a colonoscopy in [place] (we do not have these records) as she reports she had some small hyperplastic polyps. She wonders if she can extend her colonoscopy up to 3 years. ROS: No fevers or chills No weight loss No blurry vision, double vision or change in vision No sore throat No lymphadenopathy No headache, paraesthesias, or weakness in a limb No shortness of breath or wheezing No chest pain or pressure No arthralgias or myalgias No rashes or skin changes No odynophagia or dysphagia No BRBPR, hematochezia, melena No dysuria, frequency or urgency No hot/cold intolerance or polyria No anxiety or depression PREVIOUS ENDOSCOPY: As above PERTINENT RELEVANT IMAGING OR LABS: As above ALLERGIES: Allergies Allergen Reactions ??? Augmentin GI Disturbance ? ? Vicodin Hp [Apap-Fd&C Blue #1-Hydrocodone] PERTINENT MEDICATIONS: Current Outpatient Medications: ??? clonazePAM (KLONOPIN) 0.5 MG tablet, Take 0.5 mg by mouth daily, Disp: , Rfl: ??? clonazePAM (KLONOPIN) 0.5 MG tablet, Take 0.5 mg by mouth as needed, Disp: , Rfl: ??? DULoxetine (CYMBALTA) 30 MG capsule, Take 30 mg by mouth 2 times daily, Disp: , Rfl: ??? erenumab-aooe (AIMOVIG) 140 MG/ML injection, Inject 1 mL (140 mg) Subcutaneous every 30 days, Disp: 1 mL, Rfl: 12 ??? fludrocortisone (FLORINEF) 0.1 MG tablet, Take 1 tablet (0.1 mg) by mouth daily, Disp: 90 tablet, Rfl: 2 ??? hydrOXYzine (ATARAX) 50 MG tablet, Take 50 mg by mouth daily, Disp: , Rfl: ??? ipratropium (ATROVENT) 0.03 % nasal spray, , Disp: , Rfl: ??? KURVELO 0.15-30 MG-MCG tablet, Take 0.15-30 tablets by mouth, Disp: , Rfl: ??? meclizine (ANTIVERT) 25 MG tablet, TAKE 1 TABLET BY MOUTH THREE TIMES DAILY, Disp: , Rfl: ??? ondansetron (ZOFRAN-ODT) 4 MG disintegrating tablet, DISSOLVE 1 TABLET (4 MG TOTAL) ON TONGUE EVERY 8 (EIGHT) HOURS NEEDED FOR NAUSEA., Disp: , Rfl: ??? order for DME, Equipment being ordered: Micro climate cooling vest, Disp: 1 kit, Rfl: 0 ??? prochlorperazine (COMPAZINE) 5 MG tablet, Take 1-2 tablets (5-10 mg) by mouth every 6 hours as needed for nausea or vomiting, Disp: 20 tablet, Rfl: 3 ??? SUMAtriptan (IMITREX) 100 MG tablet, Take 1 tablet (100 mg) by mouth at onset of headache for migraine (may repeat in 2 hours as needed. Max 2 tabs in 24 hours), Disp: 12 tablet, Rfl: 6 ??? ubrogepant (UBRELVY) 100 MG tablet, Take 1 tablet (100 mg) by mouth at onset of headache (may repeat in 2 hours as needed. Max 2 tabs in 24 hours), Disp: 20 tablet, Rfl: 9 PROBLEM LIST Patient Active Problem List Diagnosis Date Noted ??? Irritable bowel syndrome without diarrhea 04/15/2016 Priority: Medium ??? Syncope 01/25/2014 Priority: Medium ??? Intractable 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 aura 10/05/2013 Priority: Medium Problem list name updated by automated process. Provider to review ??? Autonomic nervous system disorder 10/05/2013 Priority: Medium ??? Abdominal pain, generalized 10/05/2013 Priority: Medium PERTINENT PAST MEDICAL HISTORY: Past Medical History: Diagnosis [...] ovarian syndrome) ??? Stomach problems ??? Syncope PREVIOUS SURGERIES: Past Surgical History: Procedure Laterality Date ??? APPENDECTOMY ??? APPENDECTOMY ??? BREAST SURGERY ??? COLONOSCOPY N/A 12/10/2016 Procedure: COMBINED COLONOSCOPY, SINGLE OR MULTIPLE BIOPSY/POLYPECTOMY BY BIOPSY; Surgeon: Chaitanya Colon MD; Location: [facility] ??? COLONOSCOPY WITH CO2 INSUFFLATION N/A 12/13/2014 Procedure: COLONOSCOPY WITH CO2 INSUFFLATION; Surgeon: Adelso Dawson MD; Location: [facility] ??? ORTHOPEDIC SURGERY ??? ZZC EXPLORATORY OF ABDOMEN SOCIAL HISTORY: Social History Socioeconomic History ??? Marital status: Spouse name: Not on file ??? Number of children: Not on file ??? Years of education: Not on file ??? Highest education level: Not on file Occupational History ??? Not on file Tobacco Use ??? Smoking status: Never Smoker ??? Smokeless tobacco: Never Used Substance and Sexual Activity ??? Alcohol use: No ??? Drug use: No ??? Sexual activity: Yes Partners: Male control/protection: Pill Other Topics Concern ??? Not on file Social History Narrative ??? Not on file Social Determinants of Health Financial Resource Strain: Not on file Food Insecurity: Not on file Transportation Needs: Not on file Physical Activity: Not on file Stress: Not on file Social Connections: Not on file Intimate Partner Violence: Not on file Housing Stability: Not on file FAMILY HISTORY: Family History Problem Relation Age [...] ??? Ulcerative Colitis No family hx of Past/family/social history reviewed and no changes PHYSICAL EXAMINATION: Constitutional: aaox3, cooperative, pleasant, not dyspneic/diaphoretic, no acute distress Vitals reviewed: BP 114/84 Pulse 78 Ht 1.702 m (5' 7) Wt 70 kg (154 lb 4.8 oz) SpO2 99% BMI 24.17 kg/m?? Wt: Wt Readings from Last 2 Encounters: 03/04/22 70 kg (154 lb 4.8 oz) 03/03/22 68.4 kg (150 lb 14.4 oz) Eyes: Sclera anicteric/injected Ears/nose/mouth/throat: Normal oropharynx without ulcers or exudate, mucus membranes moist, hearing intact Neck: supple, thyroid normal size CV: No edema Respiratory: Unlabored breathing Lymph: No axillary, submandibular, supraclavicular or inguinal lymphadenopathy Abd: Nondistended, +bs, no hepatosplenomegaly, nontender, no peritoneal signs Skin: warm, perfused, no jaundice Psych: Normal affect MSK: Normal gait Answers for HPI/ROS submitted by the patient on 03/02/2022 General Symptoms: Yes Skin Symptoms: No HENT Symptoms: No EYE SYMPTOMS: No HEART SYMPTOMS: Yes LUNG SYMPTOMS: No INTESTINAL SYMPTOMS: Yes URINARY SYMPTOMS: No GYNECOLOGIC SYMPTOMS: No BREAST SYMPTOMS: No SKELETAL SYMPTOMS: No BLOOD SYMPTOMS: No NERVOUS SYSTEM SYMPTOMS: Yes MENTAL HEALTH SYMPTOMS: Yes Fever: No Loss of appetite: No Weight loss: No Weight gain: No Fatigue: Yes Night sweats: No Chills: No Increased stress: Yes Excessive hunger: No Excessive thirst: Yes Feeling hot or cold when others believe the temperature is normal: Yes Loss of height: No Post-operative complications: No Surgical site pain: No Hallucinations: No Change in or Loss of Energy: Yes Hyperactivity: No Confusion: Yes Chest pain or pressure: No Fast or irregular heartbeat: Yes Pain in legs with walking: No Trouble breathing while lying down: No Fingers or toes appear blue: Yes High blood pressure: No Low blood pressure: Yes Fainting: Yes Murmurs: No Pacemaker: No Varicose veins: No Edema or swelling: No Wake up at night with shortness of breath: No Light-headedness: Yes Exercise intolerance: Yes Heart burn or indigestion: No Nausea: Yes Vomiting: No Abdominal pain: Yes Bloating: No Constipation: Yes Diarrhea: No Blood in stool: No Black stools: No Rectal or Anal pain: No Fecal incontinence: No Yellowing of skin or eyes: No Vomit with blood: No Change in stools: No Trouble with coordination: Yes Dizziness or trouble with balance: Yes Fainting or black-out spells: Yes Memory loss: No Headache: Yes Seizures: No Speech problems: No Tingling: No Tremor: No Weakness: Yes Difficulty walking: No Paralysis: No Numbness: No Nervous or Anxious: Yes Depression: Yes Trouble sleeping: Yes Trouble thinking or concentrating: No Mood changes: No Panic attacks: Yes documented in this encounter Nursing Notes Cindy Vines CMA - 03/04/2022 11:20 AM CDT Chief Complaint Patient presents with ??? New Patient Vitals: 03/04/22 1053 BP: 114/84 Pulse: 78 SpO2: 99% Weight: 70 kg (154 lb 4.8 oz) Height: 1.702 m (5' 7) Body mass index is 24.17 kg/m??. Cindy Vines CMA documented in this encounter Miscellaneous Notes Addendum Note - Cristina King - 03/04/2022 11:20 AM CDT Addended by: CRISTINA KING on: 03/04/2022 05:06 PM Modules accepted: Orders documented in this encounter Plan of Treatment Upcoming Encounters Date Type Specialty Care Team Description 08/19/2022 Office Visit Gastroenterology iMrza Vasquez MD [address] [place] [address] (Wo rk) Scheduled Referrals Name Type Priority Associated Diagnoses Order S chedule Other Specialty Referral Routine Irritable bowel syndrome Ordered: 03/04/2022 Referral with constipatio n Chronic idiopathic constipation documented as of this encounter Procedures Procedure Name Priority Date/Time Associated Diagnosis Comme nts FOLATE Routine 03/04/2022 12:35 PM Irritable bowel Resul ts for this CDT syndrome with procedure are in the constipation results section. Chronic idiopathic constipation Chronic nausea Chronic abdominal pain documented in this encounter [...] at approximately 1 hour intervals out throu 4 hours using a dual head gamma [...] acquired at approximately 1 hour intervals [facility] using a dual head gamma [...] findings. DEMOND REMY MD Douglas Cadet MD [facility] [place] ORDERABLES Folate (03/04/2022 12:35 PM CDT) athologist Signature Folic Acid 32.2 4.6 - 34.8 03/04/2022 [facility] ng/mL 8:02 PM CDT Specimen Anatomical Collection Method / Collection Time Recei monika Time (Source) Location / Volume Laterality Blood STRUCTURE OF RIGHT Venipuncture / 03/04/2022 12:35 5:06 UPPER LIMB / Unknown PM CDT PM CDT Unknown Douglas Cadet MD LAB - BLOOD ORDERABLES Performing Organization Address City/State/ZIP Code Phon e Number [facility] [place] [address] [phone] Lab [address] [facility] [address] Building, Room 3-580 IgA (03/04/2022 12:35 PM CDT) athologist Signature Immunoglobulin A 149 84 - 499 03/05/2022 [facility] mg/dL 10:20 AM CDT CORE/PROT/END O Specimen Anatomical Collection Method / Collection Time Recei monika Time (Source) Location / Volume Laterality Blood STRUCTURE OF RIGHT Venipuncture / 03/04/2022 12:35 UPPER LIMB / Unknown PM CDT 12:37 PM CDT Unknown Douglas Cadet MD LAB - BLOOD ORDERABLES Performing Organization Address City/State/ZIP Code Phon e Number [facility] CORE/PROT/ENDO [facility] [place], [place] [address] Core/Prot/Endo [address] [facility] [address] Building, Room 3-580 Hepatic panel (03/04/2022 12:35 PM CDT) athologist Signature Bilirubin Total 0.2 0.2 - 1.3 03/04/2022 [facility] [place]/dL 1:01 PM CDT LABORATORY - CORE LAB Bilirubin Direct <0.1 0.0 - 0.2 03/04/2022 [facility] mg/dL 1:01 PM CDT LABORATORY - CORE LAB Protein Total 7.6 6.8 - 8.8 03/04/2022 [facility] g/dL 1:01 PM CDT LABORATORY - CORE LAB Albumin 3.4 3.4 - 5.0 03/04/2022 [facility] g/dL 1:01 PM CDT LABORATORY - CORE LAB Alkaline 50 40 - 150 03/04/2022 [facility] Phosphatase U/L 1:01 PM CDT LABORATORY - CORE LAB AST 23 0 - 45 U/L 03/04/2022 [facility] 1:01 PM CDT LABORATORY - CORE LAB ALT 22 0 - 50 U/L 03/04/2022 [facility] 1:01 PM CDT LABORATORY - CORE LAB Specimen Anatomical Collection Method / Collection Time Recei monika Time (Source) Location / Volume Laterality Blood STRUCTURE OF RIGHT Venipuncture / 03/04/2022 12:35 UPPER LIMB / Unknown PM CDT 12:37 PM CDT Unknown Douglas Cadet MD LAB - BLOOD ORDERABLES Performing Organization Address City/State/ZIP Code Phon e Number [facility] - CORE LAB [facility] [place] [address] 1[address] Floor Lab Core Lab [facility] - CORE LAB [place], [place] [address] Clinics and Surgery [address] 1st Floor Lab Core Lab (ABNORMAL) Basic metabolic panel (03/04/2022 12:35 PM CDT) athologist Signature Sodium 135 133 - 144 03/04/2022 [facility] mmol/L 12:57 PM CDT - CORE LAB Potassium 4.1 3.4 - 5.3 03/04/2022 [facility] mmol/L 12:57 PM CDT - CORE LAB Chloride 108 94 - 109 03/04/2022 [facility] mmol/L 12:57 PM CDT - CORE LAB Carbon Dioxide 25 20 - 32 03/04/2022 [facility] LABORATOR Y (CO2) mmol/L 12:57 PM CDT - CORE LAB Anion Gap 2 (L) 3 - 14 03/04/2022 [facility] mmol/L 12:57 PM CDT - CORE LAB Urea Nitrogen 9 7 - 30 03/04/2022 [facility] mg/dL 12:57 PM CDT - CORE LAB Creatinine 0.56 0.52 - 03/04/2022 [facility] 1.04 mg/dL 12:57 PM CDT - CORE LAB Calcium 9.3 8.5 - 10.1 03/04/2022 [facility] mg/dL 12:57 PM CDT - CORE LAB Glucose 82 70 - 99 03/04/2022 [facility] mg/dL 12:57 PM CDT - CORE LAB GFR Estimate >90 >60 03/04/2022 [facility] mL/min/1.7 12:57 PM CDT - CORE LAB 3m2 Comment: Effective September 02, 2021 eGF Rcr in adults is calculated using the 2020 CKD-EPI creatinine equation which includ es age and gender (Charlie et al., NEJ, DOI: 10.1056/UDUZgh6877149) Specimen Anatomical Collection Method / Collection Time Recei monika Time (Source) Location / Volume Laterality Blood STRUCTURE OF RIGHT Venipuncture / 03/04/2022 12:35 UPPER LIMB / Unknown PM CDT 12:37 PM CDT Unknown Douglas Cadet MD LAB - BLOOD ORDERABLES Performing Organization Address City/State/ZIP Code Phon e Number [facility] - CORE LAB [facility] [place] [address] [place] - [address] 1[address] Floor Lab Core Lab [facility] - CORE LAB [place], [place] [address] Clinics and Surgery [place] - [address] 1[address] Floor Lab Core Lab TSH (03/04/2022 12:35 PM CDT) athologist Signature TSH 0.65 0.40 - 4.00 03/04/2022 [facility] mU/L 1:08 PM CDT - CORE LAB Specimen Anatomical Collection Method / Collection Time Recei monika Time (Source) Location / Volume Laterality Blood STRUCTURE OF RIGHT Venipuncture / 03/04/2022 12:35 UPPER LIMB / Unknown PM CDT 12:37 PM CDT Unknown Douglas Cadet MD LAB - BLOOD ORDERABLES Performing Organization Address [facility] Phon e Number [facility] - CORE LAB [facility] [place] [address] 1[address] Floor Lab Core Lab [facility] - CORE LAB [place], [place] [address] Clinics and Surgery [address] Floor Lab Core Lab Vitamin B12 (03/04/2022 12:35 PM CDT) P athologist Signature Vitamin B12 331 193 - 986 03/04/2022 [facility] pg/mL 1:23 PM CDT - CORE LAB Specimen Anatomical Collection Method / Collection Time Recei monika Time (Source) Location / Volume Laterality Blood STRUCTURE OF RIGHT Venipuncture / 03/04/2022 12:35 UPPER LIMB / Unknown PM CDT 12:37 PM CDT Unknown Douglas Cadet MD LAB - BLOOD ORDERABLES Performing Organization Address [facility] Phon e Number [facility] - CORE LAB [facility] [place] [address] Floor Lab Core Lab [facility] - CORE LAB [place], [place] [address] Clinics and Surgery [address] Floor Lab Core Lab Tissue transglutaminase mikayla IgA and IgG (03/04/2022 12:31 PM CDT) Patholo gist Method Time Signature Tissue 0.3 <7.0 U/mL 03/05/2022 [facility] Transglutaminase 2:00 PM CDT CORE/PROT/E ND Antibody IgA O Comment: Negative- The tTG-IgA assay has limited utility for patients with decreased levels of IgA. Screening for celiac dise ase should include IgA testing to rule out selective IgA deficiency and to guide se lection and interpretation of serological testing. tTG-IgG testing may be positive in celiac disease patients with IgA deficiency. Tissue Transglutaminase <0.6 <7.0 U/mL 03/05/2022 2:00 PM SPECIALTY Antibody IgG CDT CORE/PROT/ENDO Comment: Negative Specimen Anatomical Collection Method / Collection Time Recei monika Time (Source) Location / Volume Laterality Blood STRUCTURE OF RIGHT Venipuncture / 03/04/2022 12:31 HAND / Unknown Unknown PM CDT 12:32 PM CDT Douglas Cadet MD LAB - BLOOD ORDERABLES Performing Organization Address City/State/ZIP Code Phon e Number SPECIALTY CORE/PROT/ENDO Specialty [place], [place] [address] Core/Prot/Endo [address] [facility] [address] Building, Room 3-580 documented in this encounter Visit Diagnoses Diagnosis Irritable bowel syndrome with constipati on - Primary Irritable bowel syndrome Chronic idiopathic constipation Unspecified constipation Chronic nausea Nausea alone Chronic abdominal pain Abdominal pain, unspecified site Irritable bowel syndrome with constipati on Irritable bowel syndrome Chronic nausea Nausea alone Chronic abdominal pain Abdominal pain, unspecified site documented in this encounter Additional Health Concerns Assessment Noted Time PHQ-9 Depression Total Score: 17 01/14/2022 7:02 AM CD T documented as of this encounter Care Teams Machine Rough Rounder Relationship Specialty Start Date End Date Monty Musa, PCP - General Family Medicine 08/13/21 [facility] [address] [place] [address] Alfonso Tang Family Practice 08/13/21 Dayanara Bee MD MD Pediatrics 12/26/14 420 [facility] 75 [place], [place] [address] Min Lange MD Neurology 03/30/16 Marlo Christopher MD Cardiology 10/27/16 MD Terrance [address] [facility] 508 [place], [place] [address] Mel Buckley, RN Nurse Coordinator Physical Medicine and 12/02/16 Rehabilitation (Work) Douglas Cadet MD Gastroenterology 08/13/21 [place] [address] [place] [id number] Rosalba Pendleton Nurse Practitioner Neurology 09/05/21 MAXIMILIANO Truong GUEST ASSOCIATE [address] [id number] Rosalba Pendleton Assigned Neuroscience 11/09/21 Alexi, Provider INFORMATION TECHNOLOGY INSTRUCTOR GUEST ASSOCIATE [address] [address] documented as of this encounter
--- OUTSIDE RECORDS SUMMARY | 2022-06-30 09:47 | XMS_ITS | Encounter Summary ---
:1990 Author Organization [place] Address [address] [place] [address] Care Team Providers Name Role Phone Monty Musa MD Primary Care Provider Alfonso Tang Unavailable Unavailable Dayanara Bee MD Unavailable Min Lange MD Unavailable Unavailable Marlo Madsen MD Unavailable Mel Buckley RN Unavailable Douglas Cadet MD Unavailable Rosalba Pendleton APRN PUMP TESTER Unavailable Rosalba Pendleton APRN PUMP TESTER Unavailable Encounter Details Date Type Department Care Team Description 03/04/2022 Travel Social History Tobacco Use Types Packs/Day Years Used Date Smoking Tobacco: Never Smokeless Tobacco: Never Alcohol Use Standard Drinks/Week Comments No 0 (1 standard drink = 0.6 oz pure alcoho l) Sex Assigned at Date Recorded Female 10/31/2021 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 documented as of this encounter Plan of Treatment Upcoming Encounters Date Type Specialty Care Team Description 08/19/2022 Office Visit Gastroenterology Mirza Vasquez MD 909 [place] [address] (Wo rk) documented as of this encounter Visit Diagnoses Not on filedocumented in this encounter Additional Health Concerns Assessment Noted Time PHQ-9 Depression Total Score: 17 01/14/2022 7:02 AM CD T documented as of this encounter Care Teams Defect Cutter Relationship Specialty Start Date End Date Monty Musa, PCP - General Family Medicine 08/13/21 [facility] [address] [place] [address] Alfonso Tang [facility] Practice 08/13/21 Dayanara Bee MD MD Pediatrics 12/26/14 420 [facility] 75 [place] [address] Min Lange MD Neurology 03/30/16 Marlo Christopher MD Cardiology 10/27/16 MD Terrance 420 [facility] 508 [place], [place] [address] Mel Buckley, RN Nurse Coordinator Physical Medicine and 12/02/16 Rehabilitation (Work) Douglas Cadet MD Gastroenterology 08/13/21 MD [place] [address] [place] [address] Rosalba Pendleton Nurse Practitioner Neurology 09/05/21 MAXIMILIANO Truong PUMP TESTER [address] [phone] Rosalba Pendleton Assigned Neuroscience 11/09/21 Alexi, Provider SCRAP PILER PUMP TESTER [address] [address] documented as of this encounter
--- OUTSIDE RECORDS SUMMARY | 2022-06-30 09:47 | XMS_ITS | Encounter Summary ---
:1990 Author Organization [place] Address [address] [place] [address]. [place] [address] Care Team Providers Name Role Phone Monty Musa MD Primary Care Provider Alfonso Tang Unavailable Unavailable Dayanara Bee MD Unavailable Min Lange MD Unavailable Unavailable Marlo Madsen MD Unavailable Mel Buckley RN Unavailable Douglas Cadet MD Unavailable [phone] Rosalba Pendleton APRN MELTER SUPERVISOR ELECTRIC ARC FURNACE Unavailable Rosalba Pendleton APRN MELTER SUPERVISOR ELECTRIC ARC FURNACE Unavailable Encounter Details Date Type Department Care Team Description 03/04/2022 Lab [facility] Lab Irrita ble bowel syndrome with [place] constipation [address] [facility] [address] 1st Floor [place], [place] [phone] Social History Tobacco Use Types Packs/Day Years Used Date Smoking Tobacco: Never Smokeless Tobacco: Never Alcohol Use Standard Drinks/Week Comments No 0 (1 standard drink = 0.6 oz pure alcoho l) Sex Assigned at Date Recorded Female 10/31/2021 7:59 AM RN ADVANCED COVID-19 Exposure Response Date Recorded In the last 10 days, have you been in contact with No / Unsu re 03/04/2022 10:51 AM CDT someone who was confirmed or suspected to have Coronavirus/COVID-19? documented as of this encounter Plan of Treatment Upcoming Encounters Date Type Specialty Care Team Description 08/19/2022 Office Visit Gastroenterology Mirza Vasquez MD [address] [place] [address] (Wo rk) documented as of this encounter Procedures Procedure Name Priority Date/Time Associated Comments Diagnosis CBC WITH PLATELETS AND Routine 03/04/2022 12:35 Irritable paige l Results for this DIFFERENTIAL PM CDT syndrome with procedure are in constipation the results section. CBC WITH PLATELETS & Routine 03/04/2022 12:35 Irritable bowel Results for this DIFFERENTIAL PM CDT syndrome with procedure are in constipation the results section. TSH Routine 03/04/2022 12:35 Irritable bowel Results for this PM CDT syndrome with procedure are in constipation the results section. IGA Routine 03/04/2022 12:35 Irritable bowel Results for this PM CDT syndrome with procedure are in constipation the results section. HEPATIC FUNCTION PANEL Routine 03/04/2022 12:35 Irritable paige l Results for this PM CDT syndrome with procedure are in constipation the results section. VITAMIN B12 Routine 03/04/2022 12:35 Irritable bowel Results for this PM CDT syndrome with procedure are in constipation the results section. BASIC METABOLIC PANEL Routine 03/04/2022 12:35 Irritable bowel Results for this PM CDT syndrome with procedure are in constipation the results section. TISSUE TRANSGLUTAMINASE Routine 03/04/2022 12:31 Irritable bow el Results for this MIKAYLA IGA AND IGG PM CDT syndrome with procedure a re in constipation the results section. documented in this encounter Results CBC with platelets and differential (03/04/2022 12:35 PM CDT) Analysis Performed At Patho logist Time Signature WBC Count 4.7 4.0 - 11.0 03/04/2022 [facility] 10e3/uL 12:41 PM CDT LABORATORY - CORE LAB RBC Count 4.49 3.80 - 03/04/2022 [facility] 5.20 12:41 PM CDT LABORATORY - 10e6/uL CORE LAB Hemoglobin 14.0 11.7 - 03/04/2022 [facility] 15.7 g/dL 12:41 PM CDT LABORATORY - CORE LAB Hematocrit 40.7 35.0 - 03/04/2022 [facility] 47.0 % 12:41 PM CDT LABORATORY - CORE LAB MCV 91 78 - 100 03/04/2022 [facility] fL 12:41 PM CDT LABORATORY - CORE LAB MCH 31.2 26.5 - 03/04/2022 [facility] 33.0 pg 12:41 PM CDT LABORATORY - CORE LAB MCHC 34.4 31.5 - 03/04/2022 [facility] 36.5 g/dL 12:41 PM CDT LABORATORY - CORE LAB RDW 12.9 10.0 - 03/04/2022 [facility] 15.0 % 12:41 PM CDT LABORATORY - CORE LAB Platelet Count 222 150 - 450 03/04/2022 [facility] 10e3/uL 12:41 PM CDT LABORATORY - CORE LAB % Neutrophils 64 % 03/04/2022 [facility] 12:41 PM CDT LABORATORY - CORE LAB % Lymphocytes 29 % 03/04/2022 [facility] 12:41 PM CDT LABORATORY - CORE LAB % Monocytes 6 % 03/04/2022 [facility] 12:41 PM CDT LABORATORY - CORE LAB % Eosinophils 1 % 03/04/2022 [facility] 12:41 PM CDT LABORATORY - CORE LAB % Basophils 0 % 03/04/2022 [facility] 12:41 PM CDT LABORATORY - CORE LAB % Immature 0 % 03/04/2022 [facility] Granulocytes 12:41 PM CDT LABORATORY - CORE LAB NRBCs per 100 WBC 0 <1 /100 03/04/2022 [facility] 12:41 PM CDT LABORATORY - CORE LAB Absolute 3.0 1.6 - 8.3 03/04/2022 [facility] Neutrophils 10e3/uL 12:41 PM CDT LABORATORY - CORE LAB Absolute 1.4 0.8 - 5.3 03/04/2022 [facility] Lymphocytes 10e3/uL 12:41 PM CDT LABORATORY - CORE LAB Absolute 0.3 0.0 - 1.3 03/04/2022 [facility] Monocytes 10e3/uL 12:41 PM CDT LABORATORY - CORE LAB Absolute 0.0 0.0 - 0.7 03/04/2022 [facility] Eosinophils 10e3/uL 12:41 PM CDT LABORATORY - CORE LAB Absolute 0.0 0.0 - 0.2 03/04/2022 [facility] Basophils 10e3/uL 12:41 PM CDT LABORATORY - CORE LAB Absolute Immature 0.0 <=0.4 03/04/2022 [facility] Granulocytes 10e3/uL 12:41 PM CDT LABORATORY - CORE LAB Absolute NRBCs 0.0 10e3/uL 03/04/2022 [facility] 12:41 PM CDT LABORATORY - CORE LAB Specimen Anatomical Collection Method / Collection Time Recei monika Time (Source) Location / Volume Laterality Blood STRUCTURE OF RIGHT Venipuncture / 03/04/2022 12:35 UPPER LIMB / Unknown PM CDT 12:37 PM CDT Unknown Douglas Cadet MD LAB - BLOOD ORDERABLES Performing Organization Address [facility] Phon e Number [facility]ORATORY - CORE LAB [facility] [place] [address] 1st Floor Lab Core Lab [facility] - CORE LAB [place], [place] [address] Clinics and Surgery [address] 1st Floor Lab Core Lab Vitamin B12 (03/04/2022 12:35 PM CDT) athologist Signature Vitamin B12 331 193 - 986 03/04/2022 [facility] pg/mL 1:23 PM CDT - CORE LAB Specimen Anatomical Collection Method / Collection Time Recei monika Time (Source) Location / Volume Laterality Blood STRUCTURE OF RIGHT Venipuncture / 03/04/2022 12:35 UPPER LIMB / Unknown PM CDT 12:37 PM CDT Unknown Douglas Cadet MD LAB - BLOOD ORDERABLES Performing Organization Address City/[facility] Phon e Number [facility]ORATORY - CORE LAB [facility] [place] [address] 1st Floor Lab Core Lab [facility]ATORY - CORE LAB [place], [place] [address] [facility] [address] 1st Floor Lab Core Lab TSH (03/04/2022 12:35 PM CDT) athologist Signature TSH 0.65 0.40 - 4.00 03/04/2022 [facility] mU/L 1:08 PM CDT - CORE LAB Specimen Anatomical Collection Method / Collection Time Recei monika Time (Source) Location / Volume Laterality Blood STRUCTURE OF RIGHT Venipuncture / 03/04/2022 12:35 UPPER LIMB / Unknown PM CDT 12:37 PM CDT Unknown Douglas Cadet MD LAB - BLOOD ORDERABLES Performing Organization Address [facility]/State/ZIP Code Phon e Number [facility]ORATORY - CORE LAB [facility] [place] [address] 1st Floor Lab Core Lab [facility] - CORE LAB [place], [place] [address] Clinics and Surgery [place] - [address] 1st Floor Lab Core Lab (ABNORMAL) Basic metabolic panel (03/04/2022 12:35 PM CDT) P athologist Signature Sodium 135 133 - 144 03/04/2022 [facility] mmol/L 12:57 PM CDT - CORE LAB Potassium 4.1 3.4 - 5.3 03/04/2022 [facility] mmol/L 12:57 PM CDT - CORE LAB Chloride 108 94 - 109 03/04/2022 [facility] mmol/L 12:57 PM CDT - CORE LAB Carbon Dioxide 25 20 - 32 03/04/2022 [facility] LABORATOR Y (CO2) mmol/L 12:57 PM CDT - CORE LAB Anion Gap 2 (L) 3 - 14 03/04/2022 [facility] mmol/L 12:57 PM CDT - CORE LAB Urea Nitrogen 9 7 - 30 03/04/2022 [facility] mg/dL 12:57 PM CDT - CORE LAB Creatinine 0.56 0.52 - 03/04/2022 [facility] 1.04 mg/dL 12:57 PM CDT - CORE LAB Calcium 9.3 8.5 - 10.1 03/04/2022 [facility] mg/dL 12:57 PM CDT - CORE LAB Glucose 82 70 - 99 03/04/2022 [facility] mg/dL 12:57 PM CDT - CORE LAB GFR Estimate >90 >60 03/04/2022 [facility] mL/min/1.7 12:57 PM CDT - CORE LAB 3m2 Comment: Effective September 02, 2021 eGF Rcr in adults is calculated using the 2020 CKD-EPI creatinine equation which includ es age and gender (Charlie et al., NEJM, DOI: 10.1056/GCUScs6434167) Specimen Anatomical Collection Method / Collection Time Recei monika Time (Source) Location / Volume Laterality Blood STRUCTURE OF RIGHT Venipuncture / 03/04/2022 12:35 UPPER LIMB / Unknown PM CDT 12:37 PM CDT Unknown Douglas Cadet MD LAB - BLOOD ORDERABLES Performing Organization Address [facility]/State/[facility] Code Phon e Number [facility] LABORATORY - CORE LAB [facility] [place] [address] 1st Floor Lab Core Lab [facility] LABORATORY - CORE LAB [place], [place] [address] Clinics and Surgery [address] 1st Floor Lab Core Lab Hepatic panel (03/04/2022 12:35 PM CDT) athologist Signature Bilirubin Total 0.2 0.2 - 1.3 03/04/2022 [facility] mg/dL 1:01 PM CDT LABORATORY - CORE LAB Bilirubin Direct <0.1 0.0 - 0.2 03/04/2022 [facility] mg/dL 1:01 PM CDT LABORATORY - CORE LAB Protein Total 7.6 6.8 - 8.8 03/04/2022 [facility] g/dL 1:01 PM CDT LABORATORY - CORE LAB Albumin 3.4 3.4 - 5.0 03/04/2022 [facility] g/dL 1:01 PM CDT LABORATORY - CORE LAB Alkaline 50 40 - 150 03/04/2022 [facility] Phosphatase U/L 1:01 PM CDT LABORATORY - CORE LAB AST 23 0 - 45 U/L 03/04/2022 [facility] 1:01 PM CDT LABORATORY - CORE LAB ALT 22 0 - 50 U/L 03/04/2022 [facility] 1:01 PM CDT LABORATORY - CORE LAB Specimen Anatomical Collection Method / Collection Time Recei monika Time (Source) Location / Volume Laterality Blood STRUCTURE OF RIGHT Venipuncture / 03/04/2022 12:35 UPPER LIMB / Unknown PM CDT 12:37 PM CDT Unknown Douglas Cadet MD LAB - BLOOD ORDERABLES Performing Organization Address City/State/ZIP Code Phon e Number [facility] LABORATORY - CORE LAB [facility] [place] [address] Center - [address] 1st Floor Lab Core Lab [facility] LABORATORY - CORE LAB [place], [place] [address] Clinics and Surgery Center - [address] 1st Floor Lab Core Lab IgA (03/04/2022 12:35 PM CDT) P athologist Signature Immunoglobulin A 149 84 - 499 03/05/2022 [facility] mg/dL 10:20 AM CDT CORE/PROT/END O Specimen Anatomical Collection Method / Collection Time Recei monika Time (Source) Location / Volume Laterality Blood STRUCTURE OF RIGHT Venipuncture / 03/04/2022 12:35 UPPER LIMB / Unknown PM CDT 12:37 PM CDT Unknown Douglas Cadet MD LAB - BLOOD ORDERABLES Performing Organization Address City/[facility]/ZIP Code Phon e Number [facility] CORE/PROT/ENDO [facility] [place], [place] [address] Core/Prot/Endo [address] [facility] [address] Building, Room 3-580 Tissue transglutaminase mikayla IgA and IgG (03/04/2022 [...] Transglutaminase <0.6 <7.0 U/mL 03/05/2022 2:00 PM [facility] Antibody IgG CDT CORE/PROT/ENDO Comment: Negative Specimen Anatomical Collection Method / Collection Time Recei monika Time (Source) Location / Volume Laterality Blood STRUCTURE OF RIGHT Venipuncture / 03/04/2022 12:31 HAND / Unknown Unknown PM CDT 12:32 PM CDT Douglas Cadet MD LAB - BLOOD ORDERABLES Performing Organization Address City/State/ZIP Code Phon e Number [facility] CORE/PROT/ENDO [facility] [place], [place] [address] Core/Prot/Endo [address] [facility] [address] Building, Room 3-580 documented in this encounter Visit Diagnoses Diagnosis Irritable bowel syndrome with constipati on Irritable bowel syndrome documented in this encounter Additional Health Concerns Assessment Noted Time PHQ-9 Depression Total Score: 17 01/14/2022 7:02 AM CD T documented as of this encounter Care Teams Baseball Pitcher Relationship Specialty Start Date End Date Monty Musa, PCP - General Family Medicine 08/13/21 [facility] [address] [place] [address] Alfonso Tang Family Practice 08/13/21 Dayanara Bee MD MD Pediatrics 12/26/14 420 [facility] 75 [place], [place] [address] Min Lange MD Neurology 03/30/16 Marlo Christopher MD Cardiology 10/27/16 MD Terrance 420 [facility] 508 [place], [place] [address] Mel Buckley, DIAZ Nurse Coordinator Physical Medicine and 12/02/16 Rehabilitation (Work) Douglas Cadet MD Gastroenterology 08/13/21 MD [place] [address] [place] [address] Rosalba Pendleton Nurse Practitioner Neurology 09/05/21 Alexi, SURVEYOR HYDROGRAPHIC MELTER SUPERVISOR ELECTRIC ARC FURNACE [address] [id number] [place], [place] [address] Rosalba Pendleton Assigned Neuroscience 11/09/21 Alexi, Provider SURVEYOR HYDROGRAPHIC MELTER SUPERVISOR ELECTRIC ARC FURNACE [address] [id number] [place] [address] documented as of this encounter
--- OUTSIDE RECORDS SUMMARY | 2022-06-30 09:47 | XMS_ITS | Encounter Summary ---
:1990 Author Organization [place] Address [address] [place] [address] Care Team Providers Name Role Phone Monty Musa MD Primary Care Provider Alfonso Tang Unavailable Unavailable Dayanara Bee MD Unavailable Min Lange MD Unavailable Unavailable Marlo Madsen MD Unavailable Mel Buckley RN Unavailable Douglas Cadet MD Unavailable [phone] Rosalba Pendleton APRN CUSTOM FRAMING SPECIALIST Unavailable Rosalba Pendleton APRN CUSTOM FRAMING SPECIALIST Unavailable Encounter Details Date Type Department Care Team Description 03/03/2022 Travel Social History Tobacco Use Types Packs/Day Years Used Date Smoking Tobacco: Never Smokeless Tobacco: Never Alcohol Use Standard Drinks/Week Comments No 0 (1 standard drink = 0.6 oz pure alcoho l) Sex Assigned at Date Recorded Female 10/31/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 documented as of this encounter Plan of Treatment Upcoming Encounters Date Type Specialty Care Team Description 08/19/2022 Office Visit Gastroenterology Mirza Vasquez MD 909 [place] [address] (Wo rk) documented as of this encounter Visit Diagnoses Not on filedocumented in this encounter Additional Health Concerns Assessment Noted Time PHQ-9 Depression Total Score: 17 01/14/2022 7:02 AM CD T documented as of this encounter Care Teams Sole Stitcher Hand Relationship Specialty Start Date End Date Monty Musa, PCP - General Family Medicine 08/13/21 [facility] [address] [place] [address] Alfonso Tang [facility] Practice 08/13/21 Dayanara Bee MD MD Pediatrics 12/26/14 420 [facility] 75 [place] [address] Min Lange MD Neurology 03/30/16 Marlo Christopher MD Cardiology 10/27/16 MD Terr[place] 420 [facility] [address] [place], [place] [address] Mel Buckley, RN Nurse Coordinator Physical Medicine and 12/02/16 Rehabilitation (Work) Douglas Cadet MD Gastroenterology 08/13/21 MD [place] [address] [place] [address] Rosalba Pendleton Nurse Practitioner Neurology 09/05/21 MAXIMILIANO Truong CUSTOM FRAMING SPECIALIST [address] [phone] Rosalba Pendleton Assigned Neuroscience 11/09/21 Alexi, Provider DECK MECHANIC CUSTOM FRAMING SPECIALIST [address] [address] documented as of this encounter
--- OUTSIDE RECORDS SUMMARY | 2022-06-30 09:47 | XMS_ITS | Encounter Summary ---
:1990 Author Organization [facility] Address [address] [place] [address]. [place] [address] Care Team Providers Name Role Phone Monty Musa MD Primary Care Provider Alfonso Tang Unavailable Unavailable Dayanara Bee MD Unavailable Min Lange MD Unavailable Unavailable Marlo Madsen MD Unavailable Mel Buckley RN Unavailable Douglas Cadet MD Unavailable [phone] Rosalba Pendleton WOMEN'S STUDIES PROFESSOR MANUFACTURING BAKER Unavailable Rosalba Pendleton APRN MANUFACTURING BAKER Unavailable Douglas Cadet MD Unavailable [phone] Marlo Madsen MD Unavailable Encounter Details Date Type Department Care Team Description 05/29/2022 [facility] Marlo Madsen MD [id number] [place] [address] [phone] Social History Tobacco Use Types Packs/Day Years Used Date Smoking Tobacco: Never Smokeless Tobacco: Never Alcohol Use Standard Drinks/Week Comments No 0 (1 standard drink = 0.6 oz pure alcoho l) Sex Assigned at Date Recorded Female 10/31/2021 7:59 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 documented as of this encounter Miscellaneous Notes Telephone Encounter - Rosenda Perez - 05/29/2022 11:28 AM CDT 05/29: LVM/MC sent to schedule f/u. -SS documented in this encounter Plan of Treatment Upcoming Encounters Date Type Specialty Care Team Description 08/19/2022 Office Visit Gastroenterology Mirza Vasquez MD [address] [place] [address] (Wo rk) documented as of this encounter Visit Diagnoses Not on filedocumented in this encounter Additional Health Concerns Assessment Noted Time PHQ-9 Depression Total Score: 11 05/28/2022 11:52 AM C DT documented as of this encounter Care Teams Senior Application Programmer Relationship Specialty Start Date End Date Monty Musa, PCP - General Family Medicine 08/13/21 [facility] [address] [place] [address] Alfonso Tang Family Practice 08/13/21 Dayanara Bee MD Pediatrics 12/26/14 [address] [facility] 75 [place] [address] Min Lange MD Neurology 03/30/16 Marlo Christopher MD Cardiology 10/27/16 MD Terr[place] [address] [facility] 508 [place], [place] [address] Mel Buckley, Nurse Coordinator Physical Medicine and 12/02/16 cone runner Douglas Cadet MD Gastroenterology 08/13/21 MD [place] 500 [place] [address] Rosalba Pendleton Nurse Practitioner Neurology 09/05/21 Alexi, WOMEN'S STUDIES PROFESSOR MANUFACTURING BAKER [address] [address], [place] [address] Rosalba Pendleton Assigned Neuroscience 11/09/21 Alexi, Provider WOMEN'S STUDIES PROFESSOR MANUFACTURING BAKER [address] [id number] [address] Douglas Cadet Assigned 03/14/22 MD [place] Gastroenterology 500 [facility] [place] [address] Marlo Madsen Assigned Heart and 03/14/22 MD [place] Vascular Provider [address] [facility] [address] [place], [place] [address] documented as of this encounter
--- OUTSIDE RECORDS SUMMARY | 2022-06-30 09:47 | XMS_ITS | Encounter Summary ---
:1990 Author Organization [facility] Address [address] [place] [address] Care Team Providers Name Role Phone Monty Musa MD Primary Care Provider Alfonso Tang Unavailable Unavailable Dayanara Bee MD Unavailable Min Lange MD Unavailable Unavailable Marlo Madsen MD Unavailable Mel Buckley RN Unavailable Douglas Cadet MD Unavailable [phone] Rosalba Pendleton APRN ELECTRIC SEALING MACHINE OPERATOR Unavailable Rosalba Pendleton APRN ELECTRIC SEALING MACHINE OPERATOR Unavailable Douglas Cadet MD Unavailable [phone] Marlo Madsen MD Unavailable Encounter Details Date Type Department Care Team Description 03/17/2022 Travel Social History Tobacco Use Types Packs/Day Years Used Date Smoking Tobacco: Never Smokeless Tobacco: Never Alcohol Use Standard Drinks/Week Comments No 0 (1 standard drink = 0.6 oz pure alcoho l) Sex Assigned at Date Recorded 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 documented as of this encounter Plan of Treatment Upcoming Encounters Date Type Specialty Care Team Description 08/19/2022 Office Visit Gastroenterology Mirza Vasquez MD [address] [place], [place] [id number] (Wo rk) documented as of this encounter Visit Diagnoses Not on filedocumented in this encounter Additional Health Concerns Assessment Noted Time PHQ-9 Depression Total Score: 17 01/14/2022 7:02 AM CD T documented as of this encounter Care Teams Collections And Archives Director Relationship Specialty Start Date End Date Monty Musa, PCP - General Family Medicine 08/13/21 [facility] [address] [place] [address] Alfonso Tang Family Practice 08/13/21 Dayanara Bee MD Pediatrics 12/26/[address] [place] [address] 75 [place], [place] [address] Min Lange MD Neurology 03/30/16 Marlo Christopher MD Cardiology 10/27/16 MD [place] [address] [facility] 508 [place], [place] [address] Mel Buckley, Nurse Coordinator Physical Medicine and 12/02/16 performance improvement analyst Douglas Cadet MD Gastroenterology 08/13/21 MD [place] 500 [place] [address] oRsalba Pendleton Nurse Practitioner Neurology 09/05/21 BAM TruongN ELECTRIC SEALING MACHINE OPERATOR 909 [facility] [place], [place] [address] Rosalba Pendleton Assigned Neuroscience 11/09/21 Alexi, Provider PACU NURSE ELECTRIC SEALING MACHINE OPERATOR 909 [facility] [id number] [place], [place] [address] Douglas Cadet Assigned 03/14/22 MD [place] Gastroenterology 500 [facility] Provider [place], [place] [address] Marlo Madsen Assigned Heart and 03/14/22 MD [place] Vascular Provider 420 [facility] [address] [place] [address] documented as of this encounter
--- OUTSIDE RECORDS SUMMARY | 2022-06-30 09:47 | XMS_ITS | Clinical Summary ---
:1990 Author Organization [facility] Address [address] [place] [address] Care Team Providers Name Role Phone Monty Musa MD Primary Care Provider Alfonso Tang Unavailable Unavailable Dayanara Bee MD Unavailable Min Lange MD Unavailable Unavailable Marlo Madsen MD Unavailable Mel Buckley RN Unavailable Douglas Cadet MD Unavailable [phone] Rosalba Pendleton SECURITY OFFICERS AND GUARDS THREAD MILLING MACHINE SET UP OPERATOR Unavailable Rosalba Pendleton APRN THREAD MILLING MACHINE SET UP OPERATOR Unavailable Douglas Cadet MD Unavailable [phone] Marlo Madsen MD Unavailable Allergies Active Allergy Reactions Severity Noted Date Comments Augmentin GI Disturbance Medium 10/21/2016 Apap-Fd&C Blue #1-Hydrocodone 01/14/2022 Medications Medication Sig Dispensed Refills Start Date End Date Status order for Equipment being 1 kit 0 04/03/2015 Act [facility] DMEIndications: ordered: Micro Dysautonomia (H), Heat climate cooling intolerance vest meclizine (ANTIVERT) TAKE 1 TABLET BY 0 12/27/2015 Active 25 MG tablet MOUTH THREE TIMES DAILY ondansetron DISSOLVE 1 TABLET 0 12/27/2015 Active (ZOFRAN-ODT) 4 MG (4 MG TOTAL) ON disintegrating tablet TONGUE EVERY 8 (EIGHT) HOURS NEEDED FOR NAUSEA. clonazePAM (KLONOPIN) Take 0.5 mg by 0 01/01/2016 Active 0.5 MG tablet mouth as needed erenumab-aooe Inject 1 mL (140 1 mL 12 10/31/2021 Active (AIMOVIG) 140 MG/ML mg) Subcutaneous injectionIndications: every 30 days Intractable 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 ubrogepant (UBRELVY) Take 1 tablet (100 20 tablet 9 10/31/2021 Active 100 MG mg) by mouth at tabletIndications: onset of headache Intractable chronic (may repeat in 2 migraine without aura hours as needed. and without status Max 2 tabs in 24 migrainosus hours) hydrOXYzine (ATARAX) Take 50 mg by 0 01/07/2022 Active 50 MG tablet mouth daily clonazePAM (KLONOPIN) Take 0.5 mg by 0 08/12/2021 Active 0.5 MG tablet mouth daily ipratropium (ATROVENT) 0 10/13/2021 Active 0.03 % nasal spray KURVELO 0.15-30 MG-MCG Take 0.15-30 0 12/05/2021 Active tablet tablets by mouth prochlorperazine Take 1-2 tablets 20 tablet 3 01/14/2022 Active (COMPAZINE) 5 MG (5-10 mg) by mouth tabletIndications: every 6 hours as Intractable chronic needed for nausea migraine without aura or vomiting and without status migrainosus SUMAtriptan (IMITREX) Take 1 tablet (100 12 tablet 6 2 Active 100 MG mg) by mouth at tabletIndications: onset of headache Intractable chronic for migraine (may migraine without aura repeat in 2 hours and without status as needed. Max 2 migrainosus tabs in 24 hours) DULoxetine (CYMBALTA) Take 30 mg by 0 02/02/2022 Active 30 MG capsule mouth 2 times daily linaclotide (LINZESS) Take 2 capsules 60 capsule 11 03/04/2022 Active 145 MCG (290 mcg) by mouth capsuleIndications: every morning Irritable bowel (before breakfast) syndrome with constipation, Chronic idiopathic constipation fludrocortisone Take 2 tablets 180 tablet 3 05/28/2022 Active (FLORINEF) 0.1 MG (0.2 mg) by mouth tabletIndications: daily Vasovagal syncope Active Problems Problem Noted Date Irritable bowel syndrome without diarrhea 04/15/2016 Syncope 01/25/2014 Intractable 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 aura 10/05/2013 Overview: Problem list name updated by rosemary cintron 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 Abdominal pain, generalized 10/05/2013 Encounters Date Type Specialty Care Team Description 06/01/2022 Telephone Cardiology Marlo Madsen MD 05/29/2022 Telephone Cardiology Marlo Madsen MD 05/28/2022 Virtual Visit Cardiology Marlo Madsen, Vasova gal syncope; Autonomic dysfu nction 05/04/2022 Hospital Encounter Radiology. Douglas Cadet Irrradu le bowel syndrome with constipation; MD [place] Chronic nausea ; Chronic abdomin al pain 05/04/2022 Travel 05/03/2022 Travel from Last 3 Months Immunizations Name Administration Dates Next Due DTAP (<7y) 11/16/2003, 03/31/1996, 01/31/1993, 1991, 1991, 1991 HEPA 03/24/2013, 11/01/2006 HPV 02/02/2011, 09/19/2010 HepB 05/15/2004, 12/18/2003, 11/16/2003 Influenza (IIV3) PF 05/23/2013 MMR 03/31/1996, 06/14/1992 Pedvax-hib 06/14/1992, 1991, 1991 Poliovirus, inactivated (IPV) 03/31/1996, 1991, 1990, 1991 Tdap (Adacel,Boostrix) 03/24/2013 Varicella 03/24/2013, 08/03/1995 Family History Medical History Relation Comments Cancer - colorectal Father Colon Cancer Father Colon Polyps Father Coronary Artery Disease Father Diabetes Father Hyperlipidemia Father Obesity Father Cerebrovascular Disease Maternal Grandmother Anesthesia Reaction Mother Aneurysm Mother Anxiety Disorder Mother Colon Polyps Mother Coronary Artery Disease Mother Depression Mother Hyperlipidemia Mother Colon Polyps Other 1 grandfather Cancer Other 2 breast Cerebrovascular Disease Other 3 Colon Polyps Other 3 Breast Cancer Other 4 Breast Cancer Paternal Grandmother Diabetes Paternal Grandmother Ovarian Cancer Paternal Grandmother Ovarian Cancer Sister Crohn's Disease No family hx of Ulcerative Colitis No family hx of Relation Status Comments Father Maternal Grandmother Mother Other 1 Other 2 Other 3 Other 4 Paternal Grandmother Sister Social History Tobacco Use Types Packs/Day Years Used Date Smoking Tobacco: Never Smokeless Tobacco: Never Tobacco Cessation: Counseling Given: No Alcohol Use Standard Drinks/Week Comments No 0 (1 standard drink = 0.6 oz pure alcoho l) Sex Assigned at Date Recorded 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 Vital Signs Vital Sign Reading Time Taken Comments Blood Pressure 114/84 03/04/2022 10:53 AM CDT Pulse 78 03/04/2022 10:53 AM CDT Temperature 36.6 ??C (97.9 ??F) 12/18/2016 8:54 AM CDT Respiratory Rate 8 12/10/2016 9:59 AM CDT Oxygen Saturation 99% 03/04/2022 10:53 AM CDT Inhaled Oxygen Concentration - - Weight 70 kg (154 lb 4.8 oz) 03/04/2022 10:53 AM CDT Height 170.2 cm (5' 7) 03/04/2022 10:53 AM CDT Body Mass Index 24.17 03/04/2022 10:53 AM CDT Plan of Treatment Upcoming Encounters Date Type Specialty Care Team Description 08/19/2022 Office Visit Gastroenterology Mirza Vasquez MD [address] [place] [phone] (Wo rk) Health Maintenance Due Date Last Done Comments ADVANCE CARE PLANNING 1990 ANNUAL REVIEW OF HM ORDERS 1991 HIV SCREENING 2006 HEPATITIS C SCREENING 2009 MEDICARE ANNUAL WELLNESS 2009 VISIT PAP 03/13/2018 03/13/2015 COVID-19 Vaccine (4 - 12/26/2021 10/31/2021, 01/29/2021, Booster for Moderna series) 01/01/2021 INFLUENZA VACCINE (#1) 2022 06/04/2021, 05/25/2016, 05/23/2013, Additional history exists DTAP/TDAP/TD IMMUNIZATION 03/24/2023 03/24/2013, 11/16/2003 , (5 - Td or Tdap) 11/16/2003, Additional history exists IPV IMMUNIZATION Completed 03/31/1996, 1991, 1991, Additional history exists HEPATITIS B IMMUNIZATION Completed 05/15/2004, 12/18/2003, 11/16/2003 PHQ-2 (once per calendar Completed 05/28/2022, 05/28/2022, year) 01/14/2022, Additional history exists MENINGITIS IMMUNIZATION Aged Out No longe r eligible based on patient 's age to complete this topic Pneumococcal Vaccine: Aged Out No longer eligible Pediatrics (0 to 5 Years) based on patient's age and At-Risk Patients (6 to to co mplete this topic 64 Years) Procedures Procedure Name Priority Date/Time Associated Diagnosis Comme nts NM GASTRIC EMPTYING Routine 05/04/2022 12:46 PM Irritable paige l Results for this CDT syndrome with procedure are in constipation the results Chronic nausea section. Chronic abdominal pain from Last 3 Months Results NM Gastric emptying (05/04/2022 12:46 PM [...] acquired at approximately 1 hour intervals out [facility] 4 hours using a dual head gamma [...] [facility] using a dual head [...] MD Douglas Cadet MD IMG NM ORDERABLES from Last 3 Months Insurance Payer Benefit Plan / Subscriber ID Effective Phone Address T ype Group Dates MEDICA MEDICA PRIME [id number] 2021-Prese [phone] [address] Indemnity SOLUTION nt [address] [place] [address] MEDICA MEDICA ACCESS [id number] 2021-Prese [phone] [address] [address] HMO ABILITY MA nt [address] [place] [address] MEDICARE MEDICARE FOR HB [id number] 2019-Prese [phone] ATTN CLAIMS Medicare SUPPLEMENT nt 40 [address] [facility] [place] [address] (Home) [place] [id number] Care Teams Flame Cutting Machine Operator Helper Relationship Specialty Start Date End Date Monty Musa, PCP - General Family Medicine 08/13/21 [facility] [address] [place] [address] Alfonso Tang Family Practice 08/13/21 Dayanara Bee MD Pediatrics 12/26/14 420 [facility] 75 [place], [place] [address] Min Lange MD Neurology 03/30/16 Marlo Christopher MD Cardiology 10/27/16 MD [place] 420 [facility] 508 [place], [place] [address] Mel Buckley, Nurse Coordinator Physical Medicine and 12/02/16 date night sitter Douglas Cadet MD Gastroenterology 08/13/21 MD [place] 500 [place], [place] [address] Rosalba Pendleton Nurse Practitioner Neurology 09/05/21 Alexi, SECURITY OFFICERS AND GUARDS THREAD MILLING MACHINE SET UP OPERATOR [address] [address] Rosalba Pendleton Assigned Neuroscience 11/09/21 Alexi, Provider SECURITY OFFICERS AND GUARDS THREAD MILLING MACHINE SET UP OPERATOR [address] [address] Douglas Cadet Assigned 03/14/22 MD [place] Gastroenterology 500 [facility] Provider [place], [place] [address] Marlo Madsen Assigned Heart and 03/14/22 MD [place] Vascular Provider [address] [address]
--- OUTSIDE RECORDS SUMMARY | 2022-06-30 09:47 | XMS_ITS | Encounter Summary ---
:1990 Author Organization [facility] Address [address] [place] [address] Care Team Providers Name Role Phone Monty Musa MD Primary Care Provider Alfonso Tang Unavailable Unavailable Dayanara Bee MD Unavailable Min Lange MD Unavailable Unavailable Albert Madsen MD Unavailable Mel Buckley RN Unavailable Douglas Cadet MD Unavailable [phone] Rosalba Pendleton APRN RADIO RECORDER Unavailable Rosalba Pendleton APRN RADIO RECORDER Unavailable Douglas Cadet MD Unavailable [phone] Albert Madsen MD Unavailable Reason for Referral CV Testing (Routine) - Closed Specialty Diagnoses / Procedures Referred By Contact Refer red To Contact Diagnoses Bradycardia Vasovagal syncope Albert Madsen MD Procedures Stress Test - Adult [address] [facility] [address] [place], [place] [address] Referral ID Status Reason Start Date Expiration Date Visits Requ ested Visits Authorized [id number] Closed 03/03/2022 03/03/2023 1 1 Reason for Visit CV Testing (Routine) - Closed Specialty Diagnoses / Procedures Referred By Contact Refer red To Contact Diagnoses Bradycardia Vasovagal syncope Albert Madsen MD Procedures Stress Test - Adult [address] [address] Referral ID Status Reason Start Date Expiration Date Visits Requ ested Visits Authorized [id number] Closed 03/03/2022 03/03/2023 1 1 Encounter Details Date Type Department Care Team Description 03/18/2022 Hospital Encounter [facility] Albert Madsen Br adycardia; [facility] MD Prudencio Vasovagal syncope [address] Heart Care [facility] 50 [address] [place] [phone] Social History Tobacco Use Types Packs/Day Years Used Date Smoking Tobacco: Never Smokeless Tobacco: Never Alcohol Use Standard Drinks/Week Comments No 0 (1 standard drink = 0.6 oz pure alcoho l) Sex Assigned at Date Recorded 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 documented in this encounter Results EXERCISE STRESS TEST (03/18/2022 10:12 AM CDT) Anatomical Region Laterality Modality Other Specimen (Source) Anatomical Collection Method Collection Time Re ceived Time Location / / Volume Laterality 03/18/2022 9:04 AM CDT Narrative 03/23/2022 1:39 AM CDT [id number]^MARLEN^ALBERT^PRUDENCIO [facility] Echocardiography Laboratory [address] [place] [address] Name: DARIN HATCH : 1990 Study Date: 03/18/2022 09:04 AM Age: 32 yrs Gender: Female Patient Location: [facility] Reason For Study: Bradycardia, Vasovagal syncope History: Bradycardiac, Vasovagal Syncope Ordering Physician: ALBERT MADSEN Referring Physician: ALBERT MADSEN Performed By: Chan Lowery HR: 72 BP: 120/86 mmHg Medications: Fludrocortisone Interpretation Summary This was an exercise stress test, no javier ges were submitted for review. The indication for the test was vasovagal sy ncope. Patient exercised for a total of 26 antonino akil and 01 seconds on the Brad protocol then continued on with a manual protocol that peaked with 5.0mph and 21.5% incline. She achieved a maximum he art rate of 186BPM, corresponding to 16 METS and representing 98% of the maxi mum predicted heart rate. Heart rate and blood pressure response to exercise were blunted. No desaturation was noted. The study was terminated due to l ightheadedness at maximal stress. Baseline ECG shows normal sinus rhythm w ith a heart rate of 72BPM. No ST segment or T wave changes noted with str ess to suggest underlying myocardial ischemia. Occasional PACs noted during s tress and recovery. No VT or other arrhythmias. Stress Results ?Protocol: ??brad ?Maximum Predicted HR: ?? 189 bpm ?Target HR: 161 bpm ? % Maximum Predicted HR: 98 % ?Stage ?? DurationHeart Ra te ??BP ? Comment ?(mm:ss) ?? (b pm) ?Rest ?76 ?125/81SpO2 100% ? Stage 1 ?2:00 ?9 4 ?132/80SpO2 100% ? Stage 2 ?4:00 ?9 0 ?/ ?? SpO2 100% ? Stage 3 ?6:00 ?9 3 ?126/82SpO2 100% ? Stage 4 ?8:00 ? 101 ?122/78SpO2 100% ? Stage 5 ?? 10:00 ? 103 ?126/80SpO2 100% ? Stage 6 ?? 12:00 ? 115 ?128/76SpO2 99% ? Stage 7 ?? 14:00 ? 122 ?142/86SpO2 99% ? Stage 8 ?? 16:00 ? 129 ?146/82SpO2 99% ? Stage 9 ?? 18:00 ? 139 ?154/84SpO2 98% ?Stage 10 ?? 20:00 ? 149 ?158/80SpO2 99% ? Stage 11-13 26:00 ? 186 ?164/82SpO2 99%, Lightheaded ? Stress Duration: ? ? 26:01 mm:ss * ? Maximum Stress HR: 186 bpm * ?METS: 16 Report approved by: Jose STEWART 01:39 AM Procedure Andrey Briggs MD - 03/23/2022 [id number]^MARLEN^ALBERT^PRUDENCIO [facility] Echocardiography Laboratory [address] [place] [address] Name: DARIN HATCH : 1990 Study Date: 03/18/2022 09:04 AM Age: 32 yrs Gender: Female Patient Location: [facility] Reason For Study: Bradycardia, Vasovagal syncope History: Bradycardiac, Vasovagal Syncope Ordering Physician: ALBERT MADSEN Referring Physician: ALBERT MADSEN Performed By: Chan Lowery HR: 72 BP: 120/86 mmHg Medications: Fludrocortisone Interpretation Summary This was an exercise stress test, no javier ges were submitted for review. The indication for the test was vasovagal sy ncope. Patient exercised for a total of 26 antonino akil and 01 seconds on the Brad protocol then continued on with a manual protocol that peaked with 5.0mph and 21.5% incline. She achieved a maximum he art rate of 186BPM, corresponding to 16 METS and representing 98% of the maxi mum predicted heart rate. Heart rate and blood pressure response to exercise were blunted. No desaturation was noted. The study was terminated due to l ightheadedness at maximal stress. Baseline ECG shows normal sinus rhythm w ith a heart rate of 72BPM. No ST segment or T wave changes noted with str ess to suggest underlying myocardial ischemia. Occasional PACs noted during s tress and recovery. No VT or other arrhythmias. Stress Results Protocol: brad Maximum Predicted HR : 189 bpm Target HR: 161 bpm % Maximum Predicted HR: 98 % Stage DurationHeart Rate BP Comment (mm:ss) (bpm) Rest 76 125/81SpO2 100% Stage 1 2:00 94 132/80SpO2 100% Stage 2 4:00 90 / SpO2 100% Stage 3 6:00 93 126/82SpO2 100% Stage 4 8:00 101 122/78SpO2 100% Stage 5 10:00 103 126/80SpO2 100% Stage 6 12:00 115 128/76SpO2 99% Stage 7 14:00 122 142/86SpO2 99% Stage 8 16:00 129 146/82SpO2 99% Stage 9 18:00 139 154/84SpO2 98% Stage 10 20:00 149 158/80SpO2 99% Stage 11-13 26:00 186 164/82SpO2 99%, 4 -06/22 Lightheaded Stress Duration: 26:01 mm:ss * Maximum Stress HR: 186 bpm * METS: 16 Report approved by: Jose STEWART 01:39 AM Albert Madsen MD CV CARDIAC SERVICES ORDERABL ES documented in this encounter Visit Diagnoses Diagnosis Bradycardia Other specified cardiac dysrhythmias Vasovagal syncope Syncope and collapse documented in this encounter Additional Health Concerns Assessment Noted Time PHQ-9 Depression Total Score: 17 01/14/2022 7:02 AM CD T documented as of this encounter Care Teams Rn Transition Relationship Specialty Start Date End Date Monty Musa, PCP - General Family Medicine 08/13/21 [facility] [address] [place] [address] Alfonso Tang Family Practice 08/13/21 Dayanara Bee MD Pediatrics 12/26/[address] [place] [address] 75 [place], [place] [address] Min Lange MD Neurology 03/30/16 Albert Christopher MD Cardiology 10/27/16 MD Prudencio 420 [facility] [address] [place] [address] Mel Buckley, Nurse Coordinator Physical Medicine and 12/02/16 metal shaping machine operator Douglas Cadet MD Gastroenterology 08/13/21 MD [place] [address] [place] [address] Rosalba Pendleton Nurse Practitioner Neurology 09/05/21 Alexi, SHARE HOLDER RADIO RECORDER [address] [address] Rosalba Pendleton Assigned Neuroscience 11/09/21 Alexi, Provider SHARE HOLDER RADIO RECORDER [address] [address] Douglas Cadet Assigned 03/14/22 MD [place] Gastro[facility] 500 [place] [address] Albert Madsen Assigned Heart and 03/14/22 MD Prudencio Vascular Provider [address] [place] [address] [address] [place] [address] documented as of this encounter
--- OUTSIDE RECORDS SUMMARY | 2022-06-30 09:47 | XMS_ITS | Encounter Summary ---
:1991 Author Organization [facility] Address [address] [place] [address]. [place] [address] Care Team Providers Name Role Phone Monty Musa MD Primary Care Provider Alfonso Tang Unavailable Unavailable Dayanara Bee MD Unavailable Min Lange MD Unavailable Unavailable Marlo Madsen MD Unavailable Mel Buckley RN Unavailable Douglas Cadet MD Unavailable [phone] Rosalba Pendleton MILD DISABILITIES TEACHER HAND WORKER Unavailable Rosalba Pendleton APRN HAND WORKER Unavailable Douglas Cadet MD Unavailable [phone] Marlo Madsen MD Unavailable Encounter Details Date Type Department Care Team Description 06/01/2022 [facility] Marlo Madsen MD [id number] [place] [address] [phone] Social History Tobacco Use Types Packs/Day Years Used Date Smoking Tobacco: Never Smokeless Tobacco: Never Alcohol Use Standard Drinks/Week Comments No 0 (1 standard drink = 0.6 oz pure alcoho l) Sex Assigned at Date Recorded Female 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 documented as of this encounter Miscellaneous Notes Telephone Encounter - Rosenda Perez - 06/01/2022 12:27 PM CDT 05/31: LVM/MC sent to schedule f/u. Remove max attempts reached. -SS documented in this encounter Plan of Treatment Upcoming Encounters Date Type Specialty Care Team Description 08/19/2022 Office Visit Gastroenterology Mirza Vasquez MD [address] [place] [address] (Wo rk) documented as of this encounter Visit Diagnoses Not on filedocumented in this encounter Additional Health Concerns Assessment Noted Time PHQ-9 Depression Total Score: 11 05/28/2022 11:52 AM C DT documented as of this encounter Care Teams Clay Mixer Relationship Specialty Start Date End Date Monty Musa, PCP - General Family Medicine 08/13/21 [facility] [address] [place] [address] Alfonso Tang Family Practice 08/13/21 Dayanara Bee MD Pediatrics 12/26/[address] [place] [address] 75 [place] [address] Min Lange MD Neurology 03/30/16 Marlo Christophre MD Cardiology 10/27/16 MD [place] [facility] 508 [place] [address] Mel Buckley, Nurse Coordinator Physical Medicine and 12/02/16 accounting system expert Douglas Cadet MD Gastroenterology 08/13/21 MD [place] 500 [place] [address] Rosalba Pendleton Nurse Practitioner Neurology 09/05/21 Alexi, MILD DISABILITIES TEACHER HAND WORKER [address] [address] Rosalba Pendleton Assigned Neuroscience 11/09/21 Alexi, Provider MILD DISABILITIES TEACHER HAND WORKER [address] [address] Douglas Cadet Assigned 03/14/22 MD [place] Gastroenterology 500 [facility] [place] [address] Marlo Madsen Assigned Heart and 03/14/22 MD [place] Vascular Provider [address] [facility] [address] [place] [address] documented as of this encounter
--- OUTSIDE RECORDS SUMMARY | 2022-06-30 09:47 | XMS_ITS | Encounter Summary ---
:1990 Author Organization [facility] Address [address] [place] [address] Care Team Providers Name Role Phone Monty Musa MD Primary Care Provider Alfonso Tang Unavailable Unavailable Dayanara Bee MD Unavailable Min Lange MD Unavailable Unavailable Marlo Madsen MD Unavailable Mel Buckley RN Unavailable Douglas Cadet MD Unavailable [phone] Rosalba Pendleton APRN BULK PICKER Unavailable Rosalba Pendleton APRN BULK PICKER Unavailable Douglas Cadet MD Unavailable [phone] Marlo Madsen MD Unavailable Encounter Details Date Type Department Care Team Description 05/03/2022 Travel Social History Tobacco Use Types Packs/Day Years Used Date Smoking Tobacco: Never Smokeless Tobacco: Never Alcohol Use Standard Drinks/Week Comments No 0 (1 standard drink = 0.6 oz pure alcoho l) Sex Assigned at Date Recorded 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 documented as of this encounter Plan of Treatment Upcoming Encounters Date Type Specialty Care Team Description 08/19/2022 Office Visit Gastroenterology Mirza Vasquez MD [address] [place], [place] [id number] (Wo rk) documented as of this encounter Visit Diagnoses Not on filedocumented in this encounter Additional Health Concerns Assessment Noted Time PHQ-9 Depression Total Score: 17 01/14/2022 7:02 AM CD T documented as of this encounter Care Teams Electroplating Technician Relationship Specialty Start Date End Date Monty Musa, PCP - General Family Medicine 08/13/21 [facility] [address] [place] [address] Alfonso Tang Family Practice 08/13/21 Dayanara Bee MD Pediatrics 12/26/[address] [place] [address] 75 [place], [place] [address] Min Lange MD Neurology 03/30/16 Marlo Christopher MD Cardiology 10/27/16 MD [place] 420 [facility] 508 [place], [place] [id number] Mel Buckley, Nurse Coordinator Physical Medicine and 12/02/16 machine ceramic coater Douglas Cadet MD Gastroenterology 08/13/21 MD [place] 500 [place] [address] Rosalba Pendleton Nurse Practitioner Neurology 09/05/21 B[facility] BULK PICKER 909 [id number] [place], [place] [address] Rosalba Pendleton Assigned Neuroscience 11/09/21 Alexi, Provider FILL TECHNICIAN BULK PICKER 909 [facility] [id number] [place], [place] [id number] Douglas Cadet Assigned 03/14/22 MD [place] Gastroenterology 500 [facility] Provider [place], [place] [address] Marlo Madsen Assigned Heart and 03/14/22 MD [place] Vascular Provider 420 [facility] 508 [place] [address] documented as of this encounter
--- OUTSIDE RECORDS SUMMARY | 2022-06-30 09:48 | XMS_ITS | Encounter Summary ---
:1990 Author Organization [facility] Address [address] [place] [address] Care Team Providers Name Role Phone Monty Musa MD Primary Care Provider Alfonso Tang Unavailable Unavailable Dayanara Bee MD Unavailable Min Lange MD Unavailable Unavailable Marlo Madsen MD Unavailable Mel Buckley RN Unavailable Douglas Cadet MD Unavailable Rosalba Pnedleton APRN TRAILER TECHNICIAN Unavailable Rosalba Pendleton APRN TRAILER TECHNICIAN Unavailable Reason for Referral Diagnostic Imaging MRI (Routine) - Closed Specialty Diagnoses / Procedures Referred By Contact Refer red To Contact Diagnoses Family history of cerebral aneurysm Headache disorder Other hereditary cerebrovascular disease Rosalba Pendleton Procedures MRA Brain ([place]) w/o Contrast MAXIMILIANO Truong TRAILER TECHNICIAN 909 [facility] [id number] [place], [place] [address] Referral ID Status Reason Start Date Expiration Date Visits Requ ested Visits Authorized [id number] Closed 01/14/2022 01/14/2023 1 1 Reason for Visit Diagnostic Imaging MRI (Routine) - Closed Specialty Diagnoses / Procedures Referred By Contact Refer red To Contact Diagnoses Family history of cerebral aneurysm Headache disorder Other hereditary cerebrovascular disease Rosalba Pendleton Procedures MRA Brain ([place]) w/o Contrast MAXIMILIANO Truong TRAILER TECHNICIAN 909 [id number] [place], [place] [address] Referral ID Status Reason Start Date Expiration Date Visits Requ ested Visits Authorized [id number] Closed 01/14/2022 01/14/2023 1 1 Encounter Details Date Type Department Care Team Description 01/21/2022 Hospital Encounter [facility] Sheela Pendleton history of cerebral aneurysm; [facility] Rosalba Headache disorder; [address], Other hered itary cerebrovascular disease [address] PRESERVATIVE FILLER MACHINE OPERATOR TRAILER TECHNICIAN [place], [place] 909 [facility] [phone] [id number] [phone] [place] [address] Social History Tobacco Use Types Packs/Day Years Used Date Smoking Tobacco: Never Smokeless Tobacco: Never Alcohol Use Standard Drinks/Week Comments No 0 (1 standard drink = 0.6 oz pure alcoho l) Sex Assigned at Date Recorded Female 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/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 documented as of this encounter Medications at Time of Discharge Medication Sig Dispensed Refills Start Date End Date clonazePAM (KLONOPIN) 0.5 Take 0.5 mg by mouth 0 08/12/2021 MG tablet daily erenumab-aooe (AIMOVIG) Inject 1 mL (140 mg) 1 mL 12 140 MG/ML Subcutaneous every injectionIndications: 30 days Intractable 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 hydrOXYzine (ATARAX) 50 Take 50 mg by mouth 0 MG tablet daily ipratropium (ATROVENT) 0 10/13/2021 0.03 % nasal spray KURVELO 0.15-30 MG-MCG Take 0.15-30 tablets 0 tablet by mouth meclizine (ANTIVERT) 25 TAKE 1 TABLET BY 0 2015 MG tablet MOUTH THREE TIMES DAILY ondansetron (ZOFRAN-ODT) DISSOLVE 1 TABLET (4 0 0 12/27/2015 4 MG disintegrating MG TOTAL) ON TONGUE tablet EVERY 8 (EIGHT) HOURS NEEDED FOR NAUSEA. order for DMEIndications: Equipment being 1 kit 0 04/03 Dysautonomia (H), Heat ordered: Micro intolerance climate cooling vest prochlorperazine Take 1-2 tablets 20 tablet 3 01/14/2022 (COMPAZINE) 5 MG (5-10 mg) by mouth tabletIndications: every 6 hours as Intractable chronic needed for nausea or migraine without aura and vomiting without status migrainosus SUMAtriptan (IMITREX) 100 Take 1 tablet (100 12 tablet 6 MG tabletIndications: mg) by mouth at Intractable chronic onset of headache migraine without aura and for migraine (may without status repeat in 2 hours as migrainosus needed. Max 2 tabs in 24 hours) ubrogepant (UBRELVY) 100 Take 1 tablet (100 20 tablet 9 MG tabletIndications: mg) by mouth at Intractable chronic onset of headache migraine without aura and (may repeat in 2 without status hours as needed. Max migrainosus 2 tabs in 24 hours) citalopram (CELEXA) 20 MG Take 20 mg by mouth 0 03/03/2022 tablet daily desvenlafaxine (PRISTIQ) Take 100 mg by mouth 0 0 12/10/2021 03/03/2022 100 MG 24 hr tablet daily fludrocortisone Take 1 tablet (0.1 30 tablet 0 09/05/2016 0 03/03/2022 (FLORINEF) 0.1 MG mg) by mouth daily tabletIndications: No refills, please Autonomic dysfunction contact PCP or appt needed ondansetron (ZOFRAN-ODT) Take 1 tablet (4 mg) 20 tablet 3 0 10/31/2021 03/03/2022 4 MG ODT tabIndications: by mouth every 8 Intractable chronic hours as needed for migraine without aura and nausea without status migrainosus documented as of this encounter Miscellaneous Notes Result Encounter Note - Rosalba Pendleton APRN TRAILER TECHNICIAN - 01/21/2022 11:59 PM CDT Nicole Rome, Your recent brain MRA did not show anything abnormal at this time-in particular there is no aneurysmor narrowing of your vessels seen. Rosalba Rondon documented in this encounter Plan of Treatment Upcoming Encounters Date Type Specialty Care Team Description 08/19/2022 Office Visit Gastroenterology Mirza Vasquez MD [address] [place] [address] (Wo rk) documented as of this encounter Procedures Procedure Name Priority Date/Time Associated Diagnosis Comme nts MRA BRAIN ([place] Routine 01/21/2022 9:10 AM Family history of Results for this OF CHILE[place]) W/O CDT cerebral aneurys m procedure are in CONTRAST Headache disorde r the results Other hereditary section. cerebrovascular disease documented in this encounter Results MRA Brain ([place]) w/o Contrast (01/21/2022 9:10 AM CDT) Anatomical Region Laterality Modality Head, SUBRAD MR NEURO, UMP MR NEURO, RAD MR Magnetic Resonance Specimen (Source) Anatomical Location Collection Method / Collectio n Time Received Time / Laterality Volume Impressions 01/21/2022 10:56 AM CDT IMPRESSION: ??Normal MR angiogram of the head. ?? FILIPPO GALEAS MD SYSTEM ID: ??[id number] Narrative 01/21/2022 10:56 AM CDT MR ANGIOGRAM OF THE HEAD WITHOUT CONTRAST ?? 01/21/2022 9:10 AM COMPARISON: None HISTORY: Cerebral aneurysm screening, ge netic risk; Family history of cerebral aneurysm; Headache disorder; Ot her hereditary cerebrovascular disease. TECHNIQUE: ??3D [id number] MR angiog ojrge of the head without contrast. MIP reconstruction of all MR a ngiographic data was performed. FINDINGS: ??The bilateral distal interna l carotid, basilar, bilateral anterior cerebral, bilateral middle cere bral and bilateral posterior cerebral arteries are patent and unremar kable with no evidence for cerebral artery stenosis or aneurysm. Procedure Note Filippo Galeas MD - 01/21/2022Forma tting of this note might be different from the original. MR ANGIOGRAM OF THE HEAD WITHOUT CONTRAS T 01/21/2022 9:10 AM COMPARISON: None HISTORY: Cerebral aneurysm screening, ge netic risk; Family history of cerebral aneurysm; Headache disorder; Ot her hereditary cerebrovascular disease. TECHNIQUE: 3D [id number] MR angiogra m of the head without contrast. MIP reconstruction of all MR a ngiographic data was performed. FINDINGS: The bilateral distal internal carotid, basilar, bilateral anterior cerebral, bilateral middle cere bral and bilateral posterior cerebral arteries are patent and unremar kable with no evidence for cerebral artery stenosis or aneurysm. IMPRESSION: Normal MR angiogram of the h ead. FILIPPO GALEAS MD SYSTEM ID: [id number] Rosalba Pendleton PRESERVATIVE FILLER MACHINE OPERATOR TRAILER TECHNICIAN IMG MRI ORDERAB LES documented in this encounter Visit Diagnoses Diagnosis Family history of cerebral aneurysm Family history of other cardiovascular d iseases Headache disorder Headache Other hereditary cerebrovascular disease documented in this encounter Additional Health Concerns Assessment Noted Time PHQ-9 Depression Total Score: 17 01/14/2022 7:02 AM CD T documented as of this encounter Care Teams Occupational Safety Specialist Relationship Specialty Start Date End Date Monty Musa, PCP - General Family Medicine 08/13/21 [facility] [address] [place] [address] Alfonso Tang Family Practice 08/13/21 Dayanara Bee MD MD Pediatrics 12/26/[address] [place] [address] 75 [place] [address] Min Lange MD Neurology 03/30/16 Marlo Christopher MD Cardiology 10/27/16 MD [place] 420 [facility] 508 [place] [address] Mel Buckley, RN Nurse Coordinator Physical Medicine and 12/02/16 Rehabilitation (Work) Douglas Cadet MD Gastroenterology 08/13/21 MD [place] 500 [place] [address] Rosalba Pendleton Nurse Practitioner Neurology 09/05/21 MAXIMILIANO Truong TRAILER TECHNICIAN [address] [address] Rosalba Pendleton Assigned Neuroscience 11/09/21 Alexi, Provider PRESERVATIVE FILLER MACHINE OPERATOR TRAILER TECHNICIAN [address] [address] documented as of this encounter
--- OUTSIDE RECORDS SUMMARY | 2022-06-30 09:48 | XMS_ITS | Encounter Summary ---
:1991 Author Organization [facility] Address [address] [place] [address] Care Team Providers Name Role Phone Alfonso Tang Primary Care Provider Unavailable Dayanara Bee MD Unavailable Min Lange MD Unavailable Unavailable Marlo Madsen MD Unavailable Mel Buckley RN Unavailable Encounter Details Date Type Department Care Team Description 01/18/2017 Records - [facility] CONVERSION Provider, Zo campbell Social History Tobacco Use Types Packs/Day Years Used Date Smoking Tobacco: Never Smokeless Tobacco: Never Alcohol Use Standard Drinks/Week Comments No 0 (1 standard drink = 0.6 oz pure alcoho l) Sex Assigned at Date Recorded Female 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 documented as of this encounter Plan of Treatment Upcoming Encounters Date Type Specialty Care Team Description 08/19/2022 Office Visit Gastroenterology Mirza Vasquez MD 909 [place] [address] (Wo rk) documented as of this encounter Visit Diagnoses Not on filedocumented in this encounter Care Teams Shipping Team Leader Relationship Specialty Start Date End Date Alfonso Tang PCP - General Family Practice 09/04/13 08/12/21 Dayanara Bee MD MD Pediatrics 12/26/[address] [place] [address] 75 [place] [address] Min Lange MD MD Neurology 03/30/16 Marlo Madsen MD Cardiology 10/27/[address] [place] [address] Mel Buckley, DIAZ Nurse Coordinator Physical Medicine and 12/02/16 Rehabilitation documented as of this encounter
--- OUTSIDE RECORDS SUMMARY | 2022-06-30 09:48 | XMS_ITS | Encounter Summary ---
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 documented as of this encounter Plan of Treatment Upcoming Encounters Date Type Specialty Care Team Description 08/19/2022 Office Visit Gastroenterology Mirza Vasquez MD 909 [place] [address] (Wo rk) documented as of this encounter Visit Diagnoses Not on filedocumented in this encounter Care Teams Barber Relationship Specialty Start Date End Date Monty Musa MD PCP - General Family Medicine 08/13/21 [facility] [address] [place] [address] Alfonso Tang Family Practice 08/13/21 Dayanara Bee MD MD Pediatrics 12/26/14 420 [facility] 75 [place] [address] Min Lange MD MD Neurology 03/30/16 Marlo Madsen MD Cardiology 10/27/16 [place] 420 [facility] 508 [place] [address] Mel Buckley, RN Nurse Coordinator Physical Medicine and 12/02/16 Rehabilitation Douglas Cadet MD Gastroenterology 08/13/21 MD [place] 500 [place] [address] documented as of this encounter
--- OUTSIDE RECORDS SUMMARY | 2022-06-30 09:48 | XMS_ITS | Encounter Summary ---
:1991 Author Organization [facility] Address [address] [facility] [place] [address] Care Team Providers Name Role Phone Alfonso Tang Primary Care Provider Unavailable Dayanara Bee MD Unavailable Min Lange MD Unavailable Unavailable Marlo Madsen MD Unavailable Mel Buckley RN Unavailable Reason for Referral CV Cardio consult (Routine) - Pending Review Specialty Diagnoses / Procedures Referred By Contact Refer red To Contact Cardiovascular Disease Diagnoses Bradycardia Monty Musa MD Cardiac Services [facility] 9[address] 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 documented as of this encounter Plan of Treatment Upcoming Encounters Date Type Specialty Care Team Description 08/19/2022 Office Visit Gastroenterology Mirza Vasquez MD [address] [place] [phone] (Wo rk) Scheduled Referrals Name Type Priority Associated Diagnoses Order S chedule Adult Cardiology Eval Referral Routine Bradycardia Ordere d: 08/12/2021 Referral documented as of this encounter Visit Diagnoses Diagnosis Bradycardia - Primary Other specified cardiac dysrhythmias documented in this encounter Care Teams Delivery Driver Assistant Relationship Specialty Start Date End Date Alfonso Tang PCP - General Family Practice 09/04/13 08/12/21 Dayanara Bee MD MD Pediatrics 12/26/[address] [place] [address] 75 [place], [place] [id number] Min Lange MD MD Neurology 03/30/16 Marlo Madsen MD Cardiology 10/27/[address] [place], [place] [address] Mel Buckley, DIAZ Nurse Coordinator Physical Medicine and 12/02/16 Rehabilitation documented as of this encounter
--- OUTSIDE RECORDS SUMMARY | 2022-06-30 09:48 | XMS_ITS | Encounter Summary ---
:1991 Author Organization [facility] Address [address] [place] [address]. [place] [address] Care Team Providers Name Role Phone Alfonso Tang Primary Care Provider Unavailable Monty Musa MD Primary Care Provider Alfonso Tang Unavailable Unavailable Dayanara Bee MD Unavailable Min Lange MD Unavailable Unavailable Marlo Madsen MD Unavailable Mel Buckley RN Unavailable Douglas Cadet MD Unavailable [phone] Encounter Details Date Type Department Care Team Description 08/12/2021 Medical Correspondence [facility], CLINIC REFERRAL Health [facility] Non-Provider [facility] [address] [place] [phone] Social History Tobacco Use Types Packs/Day Years Used Date Smoking Tobacco: Never Assessed Sex Assigned at Date Recorded Female 10/31/2021 7:59 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 documented as of this encounter Plan of Treatment Upcoming Encounters Date Type Specialty Care Team Description 08/19/2022 Office Visit Gastroenterology Mirza Vasquez MD 909 [place] [address] (Wo rk) documented as of this encounter Visit Diagnoses Not on filedocumented in this encounter Care Teams Camper Assembler Relationship Specialty Start Date End Date Alfonso Tang PCP - General Family Practice 09/04/13 08/12/21 Monty Musa MD PCP - General Family Medicine 08/13/21 [facility] [address] [place] [address] Alfonso Tang Family Practice 08/13/21 Dayanara Bee MD MD Pediatrics 12/26/[address] [place] [address] 75 [place] [address] Min Lange MD MD Neurology 03/30/16 Marlo Madsen MD Cardiology 10/27/[address] [place] [address] Mel Buckley, RN Nurse Coordinator Physical Medicine and 12/02/16 Rehabilitation Douglas Cadet MD Gastroenterology 08/13/21 MD [place] [address] [place] [address] documented as of this encounter
--- OUTSIDE RECORDS SUMMARY | 2022-06-30 09:48 | XMS_ITS | Encounter Summary ---
:1990 Author Organization [place] Address [address] [place] [address] Care Team Providers Name Role Phone Monty Musa MD Primary Care Provider Alfonso Tang Unavailable Unavailable Dayanara Bee MD Unavailable Min Lange MD Unavailable Unavailable Marlo Madsen MD Unavailable Mel Buckley RN Unavailable Douglas Cadet MD Unavailable [phone] Rosalba Pendleton APRN SAT MATH TUTOR Unavailable Reason for Visit Reason Onset Date Comments Prior Auth - Medication 10/31/2021 ubrogepant (UBRE LVY) 100 MG tablet--APPROVED Encounter Details Date Type Department Care Team Description 10/31/2021 [facility] Bianca Quintanilla, DIAZ Prior A [facility] - Medication Neurology Clinic (ubrogepant (UBRELVY) [place] 100 MG tablet--APPROVED) [address] [address] Social History Tobacco Use Types Packs/Day Years Used Date Smoking Tobacco: Never Smokeless Tobacco: Never Alcohol Use Standard Drinks/Week Comments No 0 (1 standard drink = 0.6 oz pure alcoho l) Sex Assigned at Date Recorded Female 10/31/2021 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 Prior Authorization Approval Authorization Effective Date: 10/03/2021 Authorization Expiration Date: 11/02/2022 Medication: ubrogepant (UBRELVY) 100 MG tablet--APPROVED Approved Dose/Quantity: Reference #: Insurance Company: [employer] - Expected CoPay: CoPay Card Available: [facility] Assistance Needed: Which Pharmacy is filling the prescription (Not needed for infusion/clinic administered): [facility] [address] [place] [address] Pharmacy Notified: Yes Patient Notified: Yes Instructed pharmacy to notify patient when script is ready to machine pecan picker/ship. DER SET UP OPERATOR THREAD Telephone Encounter - Adriana Anand - 11/02/2021 9:54 AM CST Images from the original note were not included. PA Initiation Medication: ubrogepant (UBRELVY) 100 MG tablet Insurance Company: [employer] - Pharmacy Filling the Rx: [facility] [address] [place] [address] Filling Pharmacy Filling Pharmacy Start Date: 11/02/2021 DER SET UP OPERATOR THREAD Telephone Encounter - Bianca Quintanilla RN - 10/31/2021 9:20 AM CST Prior Authorization Retail Medication Request ?? Medication/Dose: Ubrelvy ICD code (if different than what is on RX): G43.719 Previously Tried and Failed: Botox, zonisamide, atrovastatin, sumatriptan, eletriptan, rizatriptan, zolmitriptan, topiramate, gabapentin, Rationale: migraine ?? Insurance Name: medicare ? Pharmacy Information (if different than what is on RX) Name: Phone: ?? DER SET UP OPERATOR THREAD documented in this encounter Plan of Treatment Upcoming Encounters Date Type Specialty Care Team Description 08/19/2022 Office Visit Gastroenterology Mirza Vasquez MD 909 [place], [place] [id number] (Wo rk) documented as of this encounter Visit Diagnoses Not on filedocumented in this encounter Additional Health Concerns Assessment Noted Time PHQ-9 Depression Total Score: 16 11/01/2021 7:01 AM CS T documented as of this encounter Care Teams Senior Integration Architect Relationship Specialty Start Date End Date Monty Musa MD PCP - General Family Medicine 08/13/21 [facility] [address] [place] [address] Alfonso Tang [facility] 08/13/21 Dayanara Bee MD MD Pediatrics 12/26/14 420 [facility] [address] [place] [address] Min Lange MD Neurology 03/30/16 Marlo Christopher MD Cardiology 10/27/16 MD Terrance 420 [facility] [address] [place] [address] Mel Buckley, DIAZ Nurse Coordinator Physical Medicine and 12/02/16 Rehabilitation Douglas Cadet MD Gastroenterology 08/13/21 [place] [address] [place] [address] Rosalba Pendleton Nurse Practitioner Neurology 09/05/21 MAXIMILIANO Truong SAT MATH TUTOR 909 [id number] [place] [address] documented as of this encounter
--- OUTSIDE RECORDS SUMMARY | 2022-06-30 09:48 | XMS_ITS | Encounter Summary ---
:1990 Author Organization [place] Address [address] [place] [address]. [place] [address] Care Team Providers Name Role Phone Monty Musa MD Primary Care Provider Alfonso Tang Unavailable Unavailable Dayanara Bee MD Unavailable Min Lange MD Unavailable Unavailable Marlo Madsen MD Unavailable Mel Buckley RN Unavailable Douglas Cadet MD Unavailable [phone] Rosalba Pendleton APRN SOFT WORK CIGAR MACHINE OPERATOR Unavailable Reason for Visit Reason Comments Headache Consultation (Routine) - Pending Review Specialty Diagnoses / Procedures Referred By Contact Refer red To Contact Diagnoses Migraine Monty Musa MD [facility] [address] [place] [address] Referral ID Status Reason Start Date Expiration Date Visits V isits Requested Authorized [id number] Pending 08/12/2021 08/12/2022 1 1 Review Encounter Details Date Type Department Care Team Description 10/31/2021 Virtual Visit [facility] Monty Musa MD [facility] [address] [place] [address] Intractable chronic Neurology Clinic Rosalba Pendleton APRN SOFT WORK CIGAR MACHINE OPERATOR 909 [facility] [id number] [place], [place] [id number] migraine without aura [place] and without status 909 [facility] migrainosus (Primary 3rd Floor Dx) [place] [address] Social History Tobacco Use Types Packs/Day Years Used Date Smoking Tobacco: Never Smokeless Tobacco: Never Alcohol Use Standard Drinks/Week Comments No 0 (1 standard drink = 0.6 oz pure alcoho l) Sex Assigned at Date Recorded Female 10/31/2021 7:59 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 Compazine side effects -dizziness, drowsiness, insomnia, increased anxiety, muscle tension Follow up in 2-3 months or sooner if needed GHT SOLICITOR documented in this encounter Progress Notes Rosalba Pendleton APRN CNP - 10/31/2021 8:30 AM CST Latricia is a 31 year old who is being evaluated via a billable video visit. How would you like to obtain your AVS? MyChart If the video visit is dropped, the invitation should be resent by: Text to cell phone: [phone] Will anyone else be joining your video visit? No Video Start Time: 8:47 AM Video-Visit Details Type of service: Video Visit Video End Time: Originating Location (pt. Location): Home Distant Location (provider location): [facility] Platform used for Video Visit: [facility] MIGRAINE DISABILITY ASSESSMENT (MIDAS) On how many days in the last 3 months did you miss work or school because of your headaches? 0 How many days in the last 3 months was your productivity at work or school reduced by half or more because of your headaches? (Do not include days you counted in question 1 where you missed work or school.) 0 On how many days in the last 3 months did you not do household work (such as housework, home repairsand maintenance, shopping, caring for children and relatives) because of your headaches? 30 How many days in the last 3 months was your productivity in household work reduced by half or more because of your headaches? (Do not include days you counted in question 3 where you did not do household work). 30 On how many days in the last 3 months did you miss family, social, or lesiure activities because of your headaches? 25 MIDAS Total Score: 85 On how many days in the last 3 months did you have a headache? (If a headache lasted more than 1 day, count each day.) 54 On a scale of 0 - 10, on average how painful were these headaches (where 0 = no pain at all, and 10 = pain as bad as it can be.) 7 Last Patient-Answered HIT-6 Questionnaire HIT-6 10/31/2021 When you have headaches, how often is the pain severe 11 How often do headaches limit your ability to do usual daily activities including household work, work, school, or social activities? 10 When you have a headache, how often do you wish you could lie down? 13 In the past 4 weeks, how often have you felt too tired to do work or daily activities because of your headaches 11 In the past 4 weeks, how often have you felt fed up or irritated because of your headaches 11 In the past 4 weeks, how often did headaches limit your ability to concentrate on work or daily activities 10 HIT-6 Total Score 66 ASSESSMENT AND PLAN: Chronic migraine headaches and meets criteria for chronic migraine headaches. Plan to reinstate Aimovig for migraine prevention and Ubrelvy as a rescue as needed Ondansetron for nausea as need may cause worsening of headache May try compazine +benedryl as needed for nausea/vomiting with migraine headache. Compazine side effects -dizziness, drowsiness, insomnia, increased anxiety, muscle tension Follow up in 2-3 months or sooner if needed Ara Rome is a 31 year old who presents for the following health issues -headache HPI Back to [place] about a year ago after divorce. Lived in [place] for 4 years and return back to [place] Saw Dr Lange in 2016 -note reviewed Was seen at [facility]-note reviewed -last visit in January 2020 Was provided with Aimovig 140 mg for about a year and it was very effective and reduced migraine headaches from 25-28/month down to 10-12/month and migraine headaches were less intense while on Aimovig. No side effects with Aimovig. Off Aimovig for about a year and headaches back to 20-22 headache days per month now and duration from 24-48 hours. Missed events due to migraine headaches and affecting life. Headaches are loc-behind left eye and left supraorbital area and radiates to the left side of her head and if start on the right side than extremely severe but less frequent. Gradually increasing in pain and pain severe to prevent from doing thing. Pain is pounding. Associated with photophobia, nauseaand vomiting, fatigue and increased tiredness. I reviewed abortive treatments that have been tried and failed in the past and these include DHE nasal spray, Relpax, oral Imitrex, rizatriptan, naratriptan, injectable Imitrex, Zomig and Midrin, ubrelvy helped a little bit, tried ibuprofen or any other NSAIDs did not do anything, percocet -9 pills in3 month, Nurtec -no effect, She has been tried on several preventative drugs including Topamax, zonisamide, Depakote and gabapentin. I am reluctant to use a beta angella with her history of dysautonomia. She is already on antidepressant drug- citalopram Botox injections-helped a little bit but not much and much better response to Aimovig and only med patient found to help Depression is always there -started seeing mental health-a therapist and GP who manages meds. Has crisis line numbers. Has support. SI thoughts but would never act on them. SH On disability Objective Vitals - Patient Reported Weight (Patient Reported): 58.1 kg (128 lb) Pain Score: Moderate Pain (4) Pain Loc: Head Physical Exam GENERAL: Healthy, alert and no distress EYES: Eyes grossly normal to inspection. RESP: No audible wheeze, cough, or visible cyanosis. No visible retractions or increased work of breathing. SKIN: Visible skin clear. No significant rash, abnormal pigmentation or lesions. NEURO: Face is symmetrical and symmetrical facial expressions Mentation and speech appropriate for age. PSYCH: Mentation appears normal, affect normal, judgement and insight intact, normal speech and appearance well-groomed. I discussed all my recommendations with Latricia Hatch who verbalizes understanding and comfortable with the plan. All of patient's questions were answered from the best of my knowledge. Patient is in agreement with the plan. 66 minutes spent on the date of the encounter doing video access, chart review, exam, results review, meds review, treatment plan, documentation and further activities as noted above Rosalba Pendleton APRN, [facility] Headache certified [facility] GHT SOLICITOR documented in this encounter Plan of Treatment Upcoming Encounters Date Type Specialty Care Team Description 08/19/2022 Office Visit Gastroenterology Mirza Vasquez MD [address] [place] [id number] (Wo rk) Scheduled Referrals Name Type Priority Associated Diagnoses Order S [facility] Adult Neurology Referral Referral Routine Migraine Ord ered: 08/12/2021 documented as of this encounter Visit Diagnoses Diagnosis Intractable 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 aur a and without status migrainosus - Primary Chronic migraine without aura, with intr actable migraine, so stated, without mention of status migrainosus documented in this encounter Additional Health Concerns Assessment Noted Time PHQ-9 Depression Total Score: 16 11/01/2021 7:01 AM CS T documented as of this encounter Care Teams Process Pumper Relationship Specialty Start Date End Date Monty Musa MD PCP - General Family Medicine 08/13/21 [facility] [address] [place] [address] Alfonso Tang Family Practice 08/13/21 Dayanara Bee MD MD Pediatrics 12/26/14 [address] [place] [address] [facility] [address] [place] [address] Min Lange MD Neurology 03/30/16 Marlo Christopher MD Cardiology 10/27/16 MD Terrance 420 [facility] [address] [place] [address] Mel Buckley, RN Nurse Coordinator Physical Medicine and 12/02/16 Rehabilitation Douglas Cadet MD Gastroenterology 08/13/21 MD [place] [address] [place] [address] Rosalba Pendleton Nurse Practitioner Neurology 09/05/21 MAXIMILIANO Truong SOFT WORK CIGAR MACHINE OPERATOR 909 [facility], [place] [address] documented as of this encounter
--- OUTSIDE RECORDS SUMMARY | 2022-06-30 09:48 | XMS_ITS | Encounter Summary ---
:1990 Author Organization [place] Address [address] [place] [address]. [place] [address] Care Team Providers Name Role Phone Monty Musa MD Primary Care Provider Alfonso Tang Unavailable Unavailable Dayanara Bee MD Unavailable Min Lange MD Unavailable Unavailable Marlo Madsen MD Unavailable Mel Bucklye RN Unavailable Douglas Cadet MD Unavailable [phone] Rosalba Pendleton APRN SENSOR SPECIALIST Unavailable Reason for Visit Reason Onset Date Comments Prior Auth - Medication 10/31/2021 erenumab-aooe (A IMOVIG) 140 MG/ML injection--APPROVED Encounter Details Date Type Department Care Team Description 10/31/2021 [facility] Bianca Quintanilla, DIAZ Prior A [facility] - Medication Neurology Clinic (erenumab-a ooe (AIMOVIG) [place] 140 MG/ML 909 [facility] injection--APPROVED) [address] [place] [address] Social History Tobacco Use Types Packs/Day Years Used Date Smoking Tobacco: Never Smokeless Tobacco: Never Alcohol Use Standard Drinks/Week Comments No 0 (1 standard drink = 0.6 oz pure alcoho l) Sex Assigned at Date Recorded Female 10/31/2021 7:59 AM 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 Prior Authorization Approval Authorization Effective Date: 10/03/2021 Authorization Expiration Date: 11/02/2022 Medication: erenumab-aooe (AIMOVIG) 140 MG/ML injection--APPROVED Approved Dose/Quantity: Reference #: Insurance Company: [employer] - Expected CoPay: CoPay Card Available: [facility] Assistance Needed: Which Pharmacy is filling the prescription (Not needed for infusion/clinic administered): [facility] [address] [place] [address] Pharmacy Notified: Yes Patient Notified: Yes Instructed pharmacy to notify patient when script is ready to pickling grader/ship. D SERVICES ARCHITECT Telephone Encounter - Adriana Anand - 11/02/2021 9:47 AM CST Images from the original note were not included. PA Initiation Medication: erenumab-aooe (AIMOVIG) 140 MG/ML injection Insurance [employer]: [employer] - Pharmacy Filling the Rx: [facility] [address] [place] [address] Filling Pharmacy Filling Pharmacy Start Date: 11/02/2021 D SERVICES ARCHITECT Telephone Encounter - Bianca Quintanilla RN - 10/31/2021 9:16 AM CST Prior Authorization Retail Medication Request Medication/Dose: erenumab-aooe (AIMOVIG) 140 MG/ML injection; Inject 1 mL (140 mg) Subcutaneous every 30 days - Subcutaneous ICD code (if different than what is on RX): G43.719 Previously Tried and Failed: Botox, zonisamide, atrovastatin, sumatriptan, eletriptan, rizatriptan, zolmitriptan, topiramate, gabapentin, Rationale: migraine Insurance Name: medicare Pharmacy Information (if different than what is on RX) Name: Phone: D SERVICES ARCHITECT documented in this encounter Plan of Treatment Upcoming Encounters Date Type Specialty Care Team Description 08/19/2022 Office Visit Gastroenterology Mirza Vasquez MD 909 [place] [address] (Wo rk) documented as of this encounter Visit Diagnoses Not on filedocumented in this encounter Additional Health Concerns Assessment Noted Time PHQ-9 Depression Total Score: 16 11/01/2021 7:01 AM CS T documented as of this encounter Care Teams Salesperson Terrazzo Tiles Relationship Specialty Start Date End Date Monty Musa MD PCP - General Family Medicine 08/13/21 [facility] [address] [place] [address] [facility] 08/13/21 Dayanara Bee MD MD Pediatrics 12/26/14 420 [facility] [address] [place], [place] [address] Min Lange MD Neurology 03/30/16 Marlo Christopher MD Cardiology 10/27/16 MD Terrance 420 [facility] [address] [place], [place] [address] Mel Buckley, RN Nurse Coordinator Physical Medicine and 12/02/16 Rehabilitation Douglas Cadet MD Gastroenterology 08/13/21 MD [place] [address] [place], [place] [id number] Rosalba Pendleton Nurse Practitioner Neurology 09/05/21 MAXIMILIANO Truong SENSOR SPECIALIST 909 [facility] [id number] [place] [address] documented as of this encounter
--- OUTSIDE RECORDS SUMMARY | 2022-06-30 09:48 | XMS_ITS | Encounter Summary ---
:1990 Author Organization [facility] Address [address] [place] [id number] Care Team Providers Name Role Phone Lázaro Castellanos MD Primary Care Provider Alfonso Tang Unavailable Unavailable Dayanara Bee MD Unavailable Min Lange MD Unavailable Unavailable Albert Gee MD Unavailable Mel Buckley RN Unavailable Douglas Cadet MD Unavailable [phone] Rosalab Pendleton APRN WOODS SUPERINTENDENT Unavailable Rosalba Pendleton APRN WOODS SUPERINTENDENT Unavailable Reason for Referral CV Testing (Routine) - Closed Specialty Diagnoses / Procedures Referred By Contact Refer red To Contact Diagnoses Bradycardia Vasovagal syncope Albert Gee MD Procedures Stress Test - Adult [address] [facility] [address] [place], [place] [address] Referral ID Status Reason Start Date Expiration Date Visits Requ ested Visits Authorized [id number] Closed 03/03/2022 03/03/2023 1 1 V Testing (Routine) - Pending Review Specialty Diagnoses / Procedures Referred By Contact Refer red To Contact Diagnoses Vasovagal syncope Albert Gee MD Procedures Cardiac Event Monitor Adult/Pediatric [address] [place] [address] [address] [place], [place] [address] Referral ID Status Reason Start Date Expiration Date Visits V isits Requested Authorized [id number] Pending 03/03/2022 03/03/2023 1 1 Review Consultation (Routine: Next available opening) - Pending Review Specialty Diagnoses / Procedures Referred By Contact Refer red To Contact Cardiovascular Disease Diagnoses Vasovagal syncope Albert Gee MD [address] [place] [id number] Referral ID Status Reason Start Date Expiration Date Visits V isits Requested Authorized [id number] Pending 03/03/2022 03/03/2023 1 1 Review Reason for Visit Reason Comments New Patient Hx of dysautonomia, hypotens ion and bradycardia, syncopal spells CV Cardio consult (Routine) - Pending Review Specialty Diagnoses / Procedures Referred By Contact Refer red To Contact Cardiovascular Disease Diagnoses Bradycardia Lázaro Castellanos MD Cardiac Services [address] [place] [phone] Fax: Referral ID Status Reason Start Date Expiration Date Visits V isits Requested Authorized [id number] Pending 08/12/2021 08/12/2022 1 1 Review Encounter Details Date Type Department Care Team Description 03/03/2022 Office Visit [facility] Lázaro Castellanos MD [facility] [address] [place] [address] Bradycardia (Primary Dx); Heart Clinic Albert Cowan MD [address] [facility] [address] [place] [address] Vasovagal syncope; [address] [facility] Autonomic dysfunction; [place], [place] Syncope and collapse [phone] Social History Tobacco Use Types Packs/Day Years Used Date Smoking Tobacco: Never Smokeless Tobacco: Never Alcohol Use Standard Drinks/Week Comments No 0 (1 standard drink = 0.6 oz pure alcoho l) Sex Assigned at Date Recorded Female 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 documented as of this encounter Last Filed Vital Signs Vital Sign Reading Time Taken Comments Blood Pressure - - Pulse - - Temperature - - Respiratory Rate - - Oxygen Saturation 98% 03/03/2022 9:49 AM CDT Inhaled Oxygen Concentration - - Weight 68.4 kg (150 lb 14.4 03/03/2022 9:49 AM with kasie es on oz) CDT Height 170.2 cm (5' 7) 03/03/2022 9:49 AM with shoes o n CDT Body Mass Index 23.63 03/03/2022 9:49 AM CDT documented in this encounter Patient Instructions Patient InstructionsJuliana Kelley RN - 03/03/2022 10:08 AM CDT Images from the original note were not included. You were seen in the Electrophysiology Clinic today by: Dr Gee Plan: Labs/Tests Needed: 14 day biotel Treadmill stress test Follow up visit: 2-3 months video visit Your Care Team: EP Cardiology Telephone Number Nurse Line Juliana Kelley, RN For scheduling appts or procedures: [facility] [place] (Pacemakers, ICDs, Loop Recorders) During business hours: [phone] After business hours: [phone]- select option 4 and ask for job code [phone]. On-call rolling attendant for after hours or on weekends: [phone], option #4, and ask to speak to the on-call rolling attendant. Cardiovascular Clinic: [address] [facility] [address] As always, Thank you for trusting us with your health care needs! documented in this encounter Progress Notes Albert Gee MD - 03/03/2022 10:00 AM CDT HPI: Darin is a pleasant 32-year-old woman who was last seen in this clinic in 2013. She had moved away to [place] in the interim and is just recently returned. At today's visit Darin indicates that she continues to have periodic lightheadedness and near syncope when standing for prolonged period of time. This occurs 3 or 4 times per week. On other occasions she may in fact have a savannah syncopal event-these occur about twice a month. Previously she was begun on fludrocortisone with reasonable success in regard to her dizziness but she continued to have other symptoms which did not respond. She is also known to have gastroparesis and has a tens unit for pain control. Today she indicates that she still does use it off and on. Currently Darin's principal complaints are the near syncope and syncope noted above. Additional symptoms include concern regarding a slow resting heart rate (in the 30s to 40s at rest). She has howevernoted that her heart rate has come up since beginning the a nasal spray for rhinitis. I assured her that his slow resting heart rate was not necessarily a concern that she also has some slowness of heart rate response to exertion with persistence of high heart rates following termination of exercise. Although unlikely the possibility of sinus node dysfunction needs consideration and the treadmill stress test using a Brad protocol may be helpful. We will also provide a ambulatory ECG monitor to assess symptomatic events in the outpatient environment. Darin has no evident underlying structural heart disease and no medical issues although she is now disabled due to a combination of fainting symptoms, depression, and a prior diagnosis of dysautonomia.Currently her fainting episodes or often associated with a prodrome of nausea and feeling hot. For several years bleeding has been not taking fludrocortisone but this was restarted last winter. Prior to fludrocortisone her blood pressures were in the 70/40 range, normally she says and afterwardstypically 100/60. Orthostatic evaluation was undertaken today with the following results: Supine blood pressure 116/80 heart rate 74 Immediate seated blood pressure 129/89 heart rate 83 Immediate standing blood pressure 124/89 heart rate 82 Standing 1 minute blood pressure 128/92 heart rate 102-feels okay but somewhat hot standing 3 minutes blood pressure 126/91 heart rate 105-feels hot and woozy We will assess Darin with exercise test and ambulatory ECG monitor. No change in medications for thetime being. We will follow-up with a video visit in about 2 months time. \\\\\\ Summary from 2013 visit: The patient is a 23-year-old female with past medical history significant for dysautonomia. ?? The patient was previously followed at the [facility]. Her symptomatology includes nausea, abdominal pain and dizziness. She also has a history of migraines for which she is seen by neurology. She is being followed by [facility] regarding her chronic abdominal pain and is managed currently with a TENS unit. ?? The reason for this consultation is her history of recurrent dizziness with postural change and syncope while standing PAST MEDICAL HISTORY: Past Medical History: Diagnosis Date ??? Anesthesia complication sensitivity ??? Autonomic dysfunction ??? Depression ??? Generalized anxiety disorder ??? HLD (hyperlipidemia) ??? Migraines ??? Mixed sleep apnea Central and obstructive according to 05/05/16 PSG ??? Obesity ??? PCOS (polycystic ovarian syndrome) ??? Syncope CURRENT MEDICATIONS: Current Outpatient Medications Medication Sig Dispense Refill ??? clonazePAM (KLONOPIN) 0.5 MG tablet Take 0.5 mg by mouth daily ??? erenumab-aooe (AIMOVIG) 140 MG/ML injection Inject 1 mL (140 mg) Subcutaneous every 30 days 1 mL12 ??? fludrocortisone (FLORINEF) 0.1 MG tablet Take 1 tablet (0.1 mg) by mouth daily No refills, please contact PCP or appt needed (Patient taking differently: Take 0.2 mg by mouth every morning No refills, please contact PCP or appt needed) 30 tablet 0 ??? hydrOXYzine (ATARAX) 50 MG tablet Take 50 mg by mouth daily ??? ipratropium (ATROVENT) 0.03 % nasal spray ??? KURVELO 0.15-30 MG-MCG tablet Take 0.15-30 tablets by mouth ??? meclizine (ANTIVERT) 25 MG tablet TAKE [...] tabs in 24 hours) 20 tablet 9 ??? citalopram (CELEXA) 20 MG tablet Take 20 mg by mouth daily ??? clonazePAM (KLONOPIN) 0.5 MG tablet Take 0.5 mg by mouth as needed ??? desvenlafaxine (PRISTIQ) 100 MG 24 hr tablet Take 100 mg by mouth daily ??? DULoxetine (CYMBALTA) 30 MG capsule Take 30 mg by mouth 2 times daily ??? ondansetron (ZOFRAN-ODT) 4 MG ODT tab Take 1 tablet (4 mg) by mouth every 8 hours as needed for nausea (Patient not taking: Reported on 03/03/2022) 20 tablet 3 PAST SURGICAL HISTORY: Past Surgical History: Procedure Laterality Date ??? APPENDECTOMY ??? APPENDECTOMY ??? COLONOSCOPY N/A 12/10/2016 Procedure: COMBINED COLONOSCOPY, SINGLE OR MULTIPLE BIOPSY/POLYPECTOMY BY BIOPSY; Surgeon: Chaitanya Colon MD; Location: [facility] ??? COLONOSCOPY WITH CO2 INSUFFLATION N/A 12/13/2014 Procedure: COLONOSCOPY WITH CO2 INSUFFLATION; Surgeon: Adelso Dawson MD; Location: [facility] OR ??? ZZC EXPLORATORY OF ABDOMEN ALLERGIES: Allergies Allergen Reactions ??? Augmentin GI Disturbance ? ? Vicodin Hp [Apap-Fd&C Blue #1-Hydrocodone] FAMILY HISTORY: Family History Problem Relation Age of Onset ??? Colon Polyps Other grandfather ??? Cancer - colorectal Father 50 ??? Cancer Other breast ??? Crohn's Disease No family hx of ??? Ulcerative Colitis No family hx of SOCIAL HISTORY: Social History Tobacco Use ??? Smoking status: Never Smoker ??? Smokeless tobacco: Never Used Substance Use Topics ??? Alcohol use: No ??? Drug use: No ROS: Constitutional: No fever, chills, or sweats. Weight stable. ENT: No visual disturbance, ear ache, epistaxis, sore throat. Cardiovascular: As per HPI. Respiratory: No cough, hemoptysis. GI: No nausea, vomiting, hematemesis, melena, or hematochezia. : No hematuria. Integument: Negative. Psychiatric: Negative. Hematologic:no easy bleeding. Neuro: Negative apart from the faints noted in HPI. Endocrinology: No significant heat or cold intolerance Musculoskeletal: No myalgia. Exam: Ht 1.702 m (5' 7) Wt 68.4 kg (150 lb 14.4 oz) SpO2 98% BMI 23.63 kg/m?? GENERAL APPEARANCE: healthy, alert and no distress HEENT: no icterus,, no central cyanosis NECK: , JVP not elevated RESPIRATORY: no rales, rhonchi or wheezes, no use of accessory muscles, no retractions, respirationsare unlabored, normal respiratory rate CARDIOVASCULAR: regular rhythm, normal S1 with physiologic split S2, ABDOMEN: soft, non tender, w NEURO: alert and oriented to person/place/time, normal speech, gait and affect SKIN: no ecchymoses, no rashes Labs: CBC RESULTS: Lab Results Component Value Date WBC 5.2 04/10/2016 RBC 4.29 04/10/2016 HGB 13.3 04/10/2016 HCT 38.9 04/10/2016 MCV 91 04/10/2016 MCH 31.1 04/10/2016 MCHC 34.2 04/10/2016 RDW 12.2 04/10/2016 PLT 232 04/10/2016 PLT 257 01/07/2015 BMP RESULTS: Lab Results Component Value Date NA 137 04/10/2016 POTASSIUM 3.9 04/10/2016 CHLORIDE 103 04/10/2016 CO2 24 01/07/2015 ANIONGAP 10 04/10/2016 GLC 82 04/10/2016 BUN 8 01/07/2015 CR 0.72 04/10/2016 GFRESTIMATED >90 Non GFR Calc 01/07/2015 GFRESTBLACK >90 GFR Calc 01/07/2015 JESUS 9.3 04/10/2016 INR RESULTS: No results found for: INR Procedures: PULMONARY FUNCTION TESTS: No flowsheet data found. ECHOCARDIOGRAM: No results found for this or any previous visit (from the past 8760 hour(s)). Assessment and Plan: 1. Possible dysautonomia manifesting primarily as vasovagal-like symptoms 2. Low resting heart rates with slow heart rate increments on exertion and sustained high heart rates as described by patient but not yet documented-rule out sinus node dysfunction Plan 1. Brad exercise protocol 2. Bio tell ambulatory ECG monitoring-2 weeks 3. Clinic follow-up (video) approximately 2 months Total elapsed time today with chart review, clinic visit and documentation 60 minutes I very much appreciated the opportunity to see and assess Darin Hatch in the clinic today. Please do not hesitate to contact my office if you have any questions or concerns. Albert Gee MD Cardiac Arrhythmia Service [facility] [phone] CC LÁZARO CASTELLANOS documented in this encounter Nursing Notes Reuben Trejo - 03/03/2022 10:00 AM CDT Chief Complaint Patient presents with ??? New Patient Hx of dysautonomia, hypotension and bradycardia, syncopal spells Vitals were taken and medications were reconciled. EKG was performed DELIA Lucero 10:08 AM documented in this encounter Plan of Treatment Upcoming Encounters Date Type Specialty Care Team Description 08/19/2022 Office Visit Gastroenterology Mirza Vasquez MD [address] [place] [phone] (Wo rk) Scheduled Referrals Name Type Priority Associated Diagnoses Order S chedule Follow-Up with Referral Routine: Next Vasovagal syncope Expecte d: Cardiology available opening 05/03/2022 (Approximate), Expires: 03/03/2023 documented as of this encounter Procedures Procedure Name Priority Date/Time Associated Diagnosis Comme nts EKG 12-LEAD, Routine 03/03/2022 9:55 AM Bradycardia Results f or this TRACING ONLY CDT procedure are i n the results section. documented in this encounter Results EXERCISE STRESS TEST (03/18/2022 10:12 AM CDT) Anatomical Region Laterality Modality Other Specimen (Source) Anatomical Collection Method Collection Time Re ceived Time Location / / Volume Laterality 03/18/2022 9:04 AM CDT Narrative 03/23/2022 1:39 AM CDT [id number]^MARLEN^ALBERT^PRUDENCIO [facility] Echocardiography Laboratory [address] [place] [id number] Name: DARIN HATCH : 1990 Study Date: 03/18/2022 09:04 AM Age: 32 yrs Gender: Female Patient Location: [facility] Reason For Study: Bradycardia, Vasovagal syncope History: Bradycardiac, Vasovagal Syncope Ordering Physician: ALBERT GEE Referring Physician: ALBERT GEE Performed By: Chan Lowery HR: 72 BP: [...] Stage 11-13 26:00 ? 186 ?164/82SpO2 99%, 4-10/10 Lightheaded ? Stress Duration: ? ? 26:01 mm:ss * ? Maximum Stress HR: 186 bpm * ?METS: 16 Report approved by: Jose STEWART 01:39 AM Procedure Note Andrey Holliday MD - 03/23/2022 [id number]^MARLEN^ALBERT^PRUDENCIO [facility] Echocardiography Laboratory [address] [id number] Name: DARIN HATCH : 1990 Study Date: 03/18/2022 09:04 AM Age: 32 yrs Gender: Female Patient Location: [facility] Reason For Study: Bradycardia, Vasovagal syncope History: Bradycardiac, Vasovagal Syncope Ordering Physician: ALBERT GEE Referring Physician: ALBERT GEE Performed By: Chan Lowery HR: 72 BP: [...] Stage 11-13 26:00 186 164/82SpO2 99%, 4 -10/10 Lightheaded Stress Duration: 26:01 mm:ss * Maximum Stress HR: 186 bpm * METS: 16 Report approved by: Jose STEWART 01:39 AM Albert Gee MD CV CARDIAC SERVICES ORDERABL ES CARDIAC EVENT MONITOR APPLICATION AND PROVIDER INTERPRETATION (03/03/2022 10:58 AM CDT) Anatomical Region Laterality Modality Other Specimen (Source) Anatomical Location Collection Method / Collectio n Time Received Time / Laterality Volume Narrative This result has an attachment that is no t available. Albert Gee MD CV CARDIAC SERVICES ORDERABL ES EKG 12-lead, tracing only (Same Day) (03/03/2022 9:55 AM CDT) Component Value Ref Range Test Analysis Performed Pathologis t Method Time At Signature Systolic Blood mmHg RADIOLOGY Pressure RESULTS Diastolic Blood mmHg RADIOLOGY Pressure RESULTS Ventricular Rate 73 BPM RADIOLOGY RESULTS Atrial Rate 73 BPM RADIOLOGY RESULTS VA Interval 136 ms RADIOLOGY RESULTS QRS Duration 96 ms RADIOLOGY RESULTS QT 396 ms RADIOLOGY RESULTS QTc 436 ms RADIOLOGY RESULTS P Savanna 50 degrees RADIOLOGY RESULTS R AXIS 68 degrees RADIOLOGY RESULTS T Savanna 40 degrees RADIOLOGY RESULTS Interpretation Sinus rhythm RADIOLOGY ECG Normal ECG RESULTS When compared with ECG of 12-JUL-2014 13:28, No significant change was found Confirmed by Susy Vazquez ([id number]) on 03/04/2022 9:53:22 AM Specimen Anatomical Collection Method Collection Time Receive d Time (Source) Location / / Volume Laterality 03/03/2022 9:55 AM 9:53 CDT AM CDT Albert Gee MD ECG ORDERABLES Performing Organization Address City/State/ZIP Code Phon e Number RADIOLOGY RESULTS documented in this encounter Visit Diagnoses Diagnosis Bradycardia - Primary Other specified cardiac dysrhythmias Vasovagal syncope Syncope and collapse Autonomic dysfunction Unspecified disorder of autonomic nervou s system Syncope and collapse Bradycardia Other specified cardiac dysrhythmias Vasovagal syncope Syncope and collapse documented in this encounter Additional Health Concerns Assessment Noted Time PHQ-9 Depression Total Score: 17 01/14/2022 7:02 AM CD T documented as of this encounter Care Teams Shank Taper Relationship Specialty Start Date End Date Lázaro Castellanos, PCP - General Family Medicine 08/13/21 [facility] [address] [place] [address] Alfonso Tang Family Practice 08/13/21 Dayanara Bee MD MD Pediatrics 12/26/14 [address] [facility] [address] [place] [address] Min Lange MD Neurology 03/30/16 Albert Christopher MD Cardiology 10/27/16 MD Prudencio [address] [facility] [address] [place] [address] Mel Buckley, RN Nurse Coordinator Physical Medicine and 12/02/16 Rehabilitation (Work) Douglas Cadet MD Gastroenterology 08/13/21 [place] [address] [place] [address] Rosalba Pendleton Nurse Practitioner Neurology 09/05/21 MAXIMILIANO Truong WOODS SUPERINTENDENT [address] [address] Rosalba Pendleton Assigned Neuroscience 11/09/21 Alexi, Provider LOCKSTITCH LINING MAKER WOODS SUPERINTENDENT [address] [address] documented as of this encounter"
--- OUTSIDE RECORDS SUMMARY | 2022-06-30 09:48 | XMS_ITS | Encounter Summary ---
:1990 Author Organization [place] Address [facility] [place] [address] Care Team Providers Name Role Phone Alfonso Tang Primary Care Provider Unavailable Dayanara Bee MD Unavailable Min Lange MD Unavailable Unavailable Marlo Madsen MD Unavailable Mel Buckley RN Unavailable Reason for Referral Consultation (Routine) - Pending Review Specialty Diagnoses / Procedures Referred By Contact Refer red To Contact Gastroenterology Diagnoses Irritable bowel syndrome with constipation Monty Musa MD [facility] [address] [place] [phone] Fax: Referral ID Status Reason Start Date Expiration Date Visits V isits Requested Authorized [id number] Pending 08/12/2021 08/12/2022 1 1 Review 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 HELPER Encounter Details Date Type Department Care Team Description 08/12/2021 Transcribe Orders GENERIC EXTERNAL Provider, Generic I rritable bowel DATA DEPARTMENT External Data syndrome wi th constipation (Primary Dx) Social History Tobacco Use Types Packs/Day Years Used Date Smoking Tobacco: Never Assessed Sex Assigned at Date Recorded Female 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 Plan of Treatment Upcoming Encounters Date Type Specialty Care Team Description 08/19/2022 Office Visit Gastroenterology Mirza Vasquez MD [address] [place] [phone] (Wo rk) Scheduled Referrals Name Type Priority Associated Diagnoses Order S chedule Adult Gastro Ref - Referral Routine Irritable bowel syndro me Expected: 08/12/2021 Consult Only with constipation (Approxima te), Expires: 2021 documented as of this encounter Visit Diagnoses Diagnosis Irritable bowel syndrome with constipati on - Primary Irritable bowel syndrome documented in this encounter Care Teams [employer] Business Manager Relationship Specialty Start Date End Date Alfonso Tang PCP - General Family Practice 09/04/13 08/12/21 Dayanara Bee MD MD Pediatrics 12/26/[address] [place] [address] [address] [place], [place] [id number] Min Lange MD MD Neurology 03/30/16 Marlo Madsen MD Cardiology 10/27/16 [place] [address] [facility] [address] [place] [address] Mel Buckley, RN Nurse Coordinator Physical Medicine and 12/02/16 Rehabilitation documented as of this encounter
--- OUTSIDE RECORDS SUMMARY | 2022-06-30 09:48 | XMS_ITS | Encounter Summary ---
:1990 Author Organization [place] Address [address] [place] [address]. [place] [address] Care Team Providers Name Role Phone Monty Musa MD Primary Care Provider Alfonso Tang Unavailable Unavailable Dayanara Bee MD Unavailable Min Lange MD Unavailable Unavailable Marlo Madsen MD Unavailable Mel Buckley RN Unavailable Douglas Cadet MD Unavailable [phone] Rosalba Pendleton APRN APPLIANCE COUNSELOR Unavailable Rosalba Pendleton APRN APPLIANCE COUNSELOR Unavailable Reason for Visit Reason Onset Date Comments Previsit 02/11/2022 Encounter Details Date Type Department Care Team Description 02/11/2022 PRE VISIT [facility] Douglas Cadet Previsit Gastroenterology Clinic Samantha jenkins MD [place] [id number] [place], [place] [id number] [place] [address] Floor [place] [address] 5-4800 [phone] Social History Tobacco Use Types Packs/Day Years Used Date Smoking Tobacco: Never Smokeless Tobacco: Never Alcohol Use Standard Drinks/Week Comments No 0 (1 standard drink = 0.6 oz pure alcoho l) Sex Assigned at Date Recorded Female 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 Referring Provider: Dr. Monty Musa ?? Referring Clinic: [facility] ?? Reason for Visit/Diagnosis: IBS with constipation FUTURE VISIT INFORMATION: ?? Appointment Date: 02/11/2022 ?? Appointment Time: 2:20 PM NOTES STATUS DETAILS OFFICE NOTE from Referring Provider Received 08/12/[address] Musa OFFICE NOTE from Other Specialist Internal 11/18/16, 04/15/16, 10/16/[address] Abby Vasquez ([facility]) 03/21/[address] Chanda Durand ([facility]) 09/18/[address] 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 SUPERVISOR documented in this encounter Plan of Treatment Upcoming Encounters Date Type Specialty Care Team Description 08/19/2022 Office Visit Gastroenterology Mirza Vasquez MD [address] [place] [address] (Wo rk) documented as of this encounter Visit Diagnoses Not on filedocumented in this encounter Additional Health Concerns Assessment Noted Time PHQ-9 Depression Total Score: 17 01/14/2022 7:02 AM CD T documented as of this encounter Care Teams Consulting Psychologist Relationship Specialty Start Date End Date Monty Musa, PCP - General Family Medicine 08/13/21 [facility] [address] [place] [address] Alfonso Tang Family Practice 08/13/21 Dayanara Bee MD MD Pediatrics 12/26/14 [address] [facility] [address] [place] [address] Min Lange MD Neurology 03/30/16 Marlo Christopher MD Cardiology 10/27/16 MD [place] [address] [facility] [address] [place] [address] Mel Buckley, DIAZ Nurse Coordinator Physical Medicine and 12/02/16 Rehabilitation (Work) Douglas Cadet MD Gastroenterology 08/13/21 MD [place] [address] [place] [address] Rosalba Pendleton Nurse Practitioner Neurology 09/05/21 Alexi, DIRECTOR QUALITY ASSURANCE APPLIANCE COUNSELOR [address] [address] Rosalba Pendleton Assigned Neuroscience 11/09/21 Alexi, Provider DIRECTOR QUALITY ASSURANCE APPLIANCE COUNSELOR [address] [address] documented as of this encounter
--- OUTSIDE RECORDS SUMMARY | 2022-06-30 09:48 | XMS_ITS | Encounter Summary ---
:1990 Author Organization [place] Address [address] [place] [address]. [place] [address] Care Team Providers Name Role Phone Monty Musa MD Primary Care Provider Alfonso Tang Unavailable Unavailable Dayanara Bee MD Unavailable Min Lange MD Unavailable Unavailable Marlo Madsen MD Unavailable Mel Buckley RN Unavailable Douglas Cadet MD Unavailable [phone] Rosalba Pendleton APRN INDUSTRIAL DESIGNER Unavailable Rosalba Pendleton APRN INDUSTRIAL DESIGNER Unavailable Reason for Visit Reason Onset Date Comments Previsit 03/03/2022 Encounter Details Date Type Department Care Team Description 03/03/2022 PRE VISIT [facility] Marlo Madsen MD Previsit Clinic [id number] [place] [address] 5-4800 [phone] Social History Tobacco Use Types Packs/Day Years Used Date Smoking Tobacco: Never Smokeless Tobacco: Never Alcohol Use Standard Drinks/Week Comments No 0 (1 standard drink = 0.6 oz pure alcoho l) Sex Assigned at Date Recorded 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 uMsa [facility] 08-12-21 OFFICE NOTE from other hand brush filler N/A DISCHARGE SUMMARY from hospital N/A DISCHARGE REPORT from the ER N/A OPERATIVE REPORT N/A MEDICATION LIST Internal LABS BMP N/A CBC Internal 08-12-21 CMP N/A Lipids Internal 08-12-21 TSH N/A DIAGNOSTIC PROCEDURES EKG N/A Monitor Reports N/A IMAGING (DISC & REPORT) Echo N/A Stress Tests N/A Cath N/A MRI/MRA N/A CT/CTA N/A documented in this encounter Plan of Treatment Upcoming Encounters Date Type Specialty Care Team Description 08/19/2022 Office Visit Gastroenterology Mirza Vasquez MD [address] [place] [address] (Wo rk) documented as of this encounter Visit Diagnoses Not on filedocumented in this encounter Additional Health Concerns Assessment Noted Time PHQ-9 Depression Total Score: 17 01/14/2022 7:02 AM CD T documented as of this encounter Care Teams Lead Engineer Relationship Specialty Start Date End Date Monty Musa, PCP - General Family Medicine 08/13/21 [facility] [address] [place] [address] Alfonso Tang Family Practice 08/13/21 Dayanara Bee MD MD Pediatrics 12/26/14 [address] [facility] [address] [place] [address] Min Lange MD Neurology 03/30/16 Marlo Christopher MD Cardiology 10/27/16 MD [place] [address] [facility] [address] [place] [address] Mel Buckley, RN Nurse Coordinator Physical Medicine and 12/02/16 Rehabilitation (Work) Douglas Cadet MD Gastroenterology 08/13/21 MD [place] [address] [place] [address] Rosalba Pendleton Nurse Practitioner Neurology 09/05/21 Alexi, APPLICATIONS ANALYST INDUSTRIAL DESIGNER [address] [address] Rosalba Pendleton Assigned Neuroscience 11/09/21 Alexi, Provider APPLICATIONS ANALYST INDUSTRIAL DESIGNER [address] [address] documented as of this encounter
--- OUTSIDE RECORDS SUMMARY | 2022-06-30 09:48 | XMS_ITS | Encounter Summary ---
:1990 Author Organization [place] Address [address] [place] [address] Care Team Providers Name Role Phone Alfonso Tang Primary Care Provider Unavailable Dayanara Bee MD Unavailable Min Lange MD Unavailable Unavailable Marlo Madsen MD Unavailable Mel Buckley RN Unavailable Encounter Details Date Type Department Care Team Description 02/01/2017 [facility] Only [facility] Neurology Min Lange, Migraine without aura and wi thout status migrainosus, not intractable; [address] [place] [address] Intractable 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 [address] [place] [address] Social History Tobacco Use Types Packs/Day Years Used Date Smoking Tobacco: Never Smokeless Tobacco: Never Alcohol Use Standard Drinks/Week Comments No 0 (1 standard drink = 0.6 oz pure alcoho l) Sex Assigned at Date Recorded 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 as of this encounter Plan of Treatment Upcoming Encounters Date Type Specialty Care Team Description 08/19/2022 Office Visit Gastroenterology Mirza Vasquez MD [address] [place] [address] (Wo rk) documented as of this encounter Visit Diagnoses Diagnosis Migraine without aura and without status migrainosus, not intractable Migraine without aura, without mention o f intractable migraine without mention of status migrainosus Intractable 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 aur a and without status migrainosus Chronic migraine without aura, with intr actable migraine, so stated, without mention of status migrainosus documented in this encounter Care Teams Clinical Biochemist Relationship Specialty Start Date End Date Alfonso Tang PCP - General Family Practice 09/04/13 08/12/21 Dayanara Bee MD MD Pediatrics 12/26/[address] [place] [address] 75 [place] [address] Min Lange MD MD Neurology 03/30/16 Marlo Madsen MD Cardiology 10/27/[address] [place] [address] Mel Buckley RN Nurse Coordinator Physical Medicine and 12/02/16 Rehabilitation documented as of this encounter
--- OUTSIDE RECORDS SUMMARY | 2022-06-30 09:48 | XMS_ITS | Encounter Summary ---
:1990 Author Organization [place] Address [address] [place] [address]. [place] [address] Care Team Providers Name Role Phone Monty Musa MD Primary Care Provider Alfonso Tang Unavailable Unavailable Dayanara Bee MD Unavailable Min Lange MD Unavailable Unavailable Marlo Madsen MD Unavailable Mel Buckley RN Unavailable Douglas Cadet MD Unavailable [phone] Rosalba Pendleton STOVE FITTER OLDER WORKER SPECIALIST Unavailable Rosalba Pendleton APRN OLDER WORKER SPECIALIST Unavailable Douglas Cadet MD Unavailable [phone] Marlo Madsen MD Unavailable Reason for Visit Reason Onset Date Comments Appointment 08/13/2021 Encounter Details Date Type Department Care Team Description 08/13/2021 [facility] Douglas Cadet ent Gastroenterology Clinic Samantha ejnkins MD [employer] [address] [place] [address] [address]th Floor [place] [id number] [phone] Social History Tobacco Use Types Packs/Day Years Used Date Smoking Tobacco: Never Assessed Sex Assigned at Date Recorded Female 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 documented as of this encounter Miscellaneous Notes Telephone Encounter - Ashleigh Shahid - 08/13/2021 10:07 AM CST [facility] Call Center Phone Message May a detailed message be left on voicemail: yes Reason for Call: Other: Patient is being referred for IBS and is experiencing weight loss, 80lbs within the last year. Please review per scheduling guidelines. Thanks! Action Taken: Message routed to: [facility] GI Travel Screening: Not Applicable TRUCTION TRENCH DIGGER documented in this encounter Plan of Treatment Upcoming Encounters Date Type Specialty Care Team Description 08/19/2022 Office Visit Gastroenterology Mirza Vasquez MD [address] [place], [place] [address] (Wo rk) documented as of this encounter Visit Diagnoses Not on filedocumented in this encounter Care Teams Sap Functional Analyst Relationship Specialty Start Date End Date Monty Musa, PCP - General Family Medicine 08/13/21 [facility] [address] [place] [address] Alfonso Tang Family Practice 08/13/21 Dayanara Bee MD Pediatrics 12/26/[address] [place] [address] 75 [place] [address] Min Lange MD Neurology 03/30/16 Marlo Christopher MD Cardiology 10/27/16 MD [place] [address] [facility] [address] [place], [place] [id number] Mel Buckley, Nurse Coordinator Physical Medicine and 12/02/16 web content specialist Douglas Cadet MD Gastroenterology 08/13/21 MD [place] [address] [place], [place] [phone] Rosalba Pendleton Nurse Practitioner Neurology 09/05/21 Alexi, STOVE FITTER OLDER WORKER SPECIALIST [address] [id number] Rosalba Pendleton Assigned Neuroscience 11/09/21 Alexi, Provider STOVE FITTER OLDER WORKER SPECIALIST [address] [address] Douglas Cadet Assigned 03/14/22 MD [place] Gastroenterology [address] [facility] [place] [address] Marlo Madsen Assigned Heart and 03/14/22 MD [place] Vascular Provider [address] [facility] [address] [facility] [address] [place] [address] documented as of this encounter
--- OUTSIDE RECORDS SUMMARY | 2022-06-30 09:48 | XMS_ITS | Encounter Summary ---
:1990 Author Organization [place] Address [address] [place] [address] Care Team Providers Name Role Phone Alfonso Tang Primary Care Provider Unavailable Dayanara Bee MD Unavailable Min Lange MD Unavailable Unavailable Marlo Madsen MD Unavailable Mel Buckley RN Unavailable Encounter Details Date Type Department Care Team Description 02/07/2021 Records - [facility] CONVERSION Provider, Histor ical Social History Tobacco Use Types Packs/Day Years Used Date Smoking Tobacco: Never Smokeless Tobacco: Never Alcohol Use Standard Drinks/Week Comments No 0 (1 standard drink = 0.6 oz pure alcoho l) Sex Assigned at Date Recorded 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 documented in this encounter Results CT Head w/o Contrast (10/12/2004 12:00 AM AVIATION TECHNICIAN AIRCRAFT) Anatomical Region Laterality Modality Head, SUBRAD CT NEURO, SUBRAD CT NEURO, UMP CT NEURO, Computed Tomography RAD CT Specimen (Source) Anatomical Location Collection Method / Collectio n Time Received Time / Laterality Volume Narrative 10/12/2004 12:00 AM AVIATION TECHNICIAN AIRCRAFT See Historical Hospital Medical Record f or documentation Procedure Note Provider, Historical - 02/07/2021Formatt ing of this note might be different from the original. See Historical Hospital Medical Record f or documentation Historical Provider IMG CT ORDERABLES documented in this encounter Visit Diagnoses Not on filedocumented in this encounter Care Teams Industrial Engineering Manager Relationship Specialty Start Date End Date Alfonso Tang PCP - General Family Practice 09/04/13 08/12/21 Dayanara Bee MD MD Pediatrics 12/26/[address] [place] [address] [address] [place] [address] Min Lange MD MD Neurology 03/30/16 Marlo Madsen MD Cardiology 10/27/[address] [place] [address] [address] [place], [place] [phone] Mel Buckley, RN Nurse Coordinator Physical Medicine and 12/02/16 Rehabilitation documented as of this encounter
--- OUTSIDE RECORDS SUMMARY | 2022-06-30 09:48 | XMS_ITS | Encounter Summary ---
:1990 Author Organization [place] Address [address] [place] [address]. [place] [address] Care Team Providers Name Role Phone Alfonso Tang Primary Care Provider Unavailable Dayanara Bee MD Unavailable Min Lange MD Unavailable Unavailable Marlo Madsen MD Unavailable Mel Buckley RN Unavailable Reason for Visit Reason Comments Appointment NEED NEW PCP Encounter Details Date Type Department Care Team Description 11/15/2018 [facility] Provider, Appoint ment ([facility] NEW PCP ) [address] [address] Social History Tobacco Use Types Packs/Day Years Used Date Smoking Tobacco: Never Smokeless Tobacco: Never Alcohol Use Standard Drinks/Week Comments No 0 (1 standard drink = 0.6 oz pure alcoho l) Sex Assigned at Date Recorded Female 10/31/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 Tang as a primary care provider. Dr. Tang retired from clinic practice August 2018. The patient is due to establish care with a new provider. The conventional underwriter intends to contact the patient to assist with the scheduling process. If the patient has established care elsewhere, please discontinue Kitty as the primary physician and close. The patient has sought care elsewhere. CE CLERK ROUTINE documented in this encounter Plan of Treatment Upcoming Encounters Date Type Specialty Care Team Description 08/19/2022 Office Visit Gastroenterology Mirza Vasquez MD [address] [place] [address] (Wo rk) documented as of this encounter Visit Diagnoses Not on filedocumented in this encounter Care Teams Electric Power Machine Operator Relationship Specialty Start Date End Date Alfonso Tang PCP - General Family Practice 09/04/13 08/12/21 Dayanara Bee MD MD Pediatrics 12/26/[address] [place] [address] 75 [place] [address] Min Lange MD MD Neurology 03/30/16 Marlo Madsen MD Cardiology 10/27/[address] [place] [address] Mel Buckley, RN Nurse Coordinator Physical Medicine and 12/02/16 Rehabilitation documented as of this encounter
--- OUTSIDE RECORDS SUMMARY | 2022-06-30 09:48 | XMS_ITS | Encounter Summary ---
:1990 Author Organization [facility] Address [address] [place] [address] Care Team Providers Name Role Phone Monty Musa MD Primary Care Provider Alfonso Tang Unavailable Unavailable Dayanara Bee MD Unavailable Min Lange MD Unavailable Unavailable Marlo Madsen MD Unavailable Mel Buckley RN Unavailable Douglas Cadet MD Unavailable Rosalba Pendleton APRN DIRECTOR OF FIELD COORDINATION Unavailable Rosalba Pendleton APRN DIRECTOR OF FIELD COORDINATION Unavailable Reason for Referral Diagnostic Imaging MRI (Routine) - Closed Specialty Diagnoses / Procedures Referred By Contact Refer red To Contact Diagnoses Family history of cerebral aneurysm Headache disorder Other hereditary cerebrovascular disease Rosalba Pendleton Procedures MRA Brain ([place]) w/o Contrast MAXIMILIANO Truong DIRECTOR OF FIELD COORDINATION 909 [facility] [id number] [place], [place] [address] Referral ID Status Reason Start Date Expiration Date Visits Requ ested Visits Authorized [id number] Closed 01/14/2022 01/14/2023 1 1 Reason for Visit Reason Comments Video Visit F/U Encounter Details Date Type Department Care Team Description 01/14/2022 Virtual Visit M [facility] Rosalba Pendleton Ruba ctable 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 (Primary Dx); Neurology Clinic Gurpreetnuria hi story of cerebral aneurysm; [place] MAXIMILIANO GONZALEZ Headache disorder; 909 [facility] [address] [facility] Other hereditary cerebrovasc ular disease 3rd Floor [id number] [place] [address] [phone] Social History Tobacco Use Types Packs/Day Years Used Date Smoking Tobacco: Never Smokeless Tobacco: Never Alcohol Use Standard Drinks/Week Comments No 0 (1 standard drink = 0.6 oz pure alcoho l) Sex Assigned at Date Recorded Female 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 Side effects-drowsiness, insomnia, increased anxiety and muscle tightness Retrial of sumatriptan 100 mg at headache onset and repeat in 2 hours as needed. Max 200 mg in 24 hours. Side effects-drowsiness, dizziness, worsening of headache, muscle tighness. Stop if chest pain Follow up In 3-5 months or sooner if needed Family history -mother, maternal uncles and maternal cousin -all had cerebral aneurysm. Had brain MRA in 2014 and was recommended to repeat brain MRA in at least [address] Lange/per patient. documented in this encounter Progress Notes Rosalba Pendleton, MAXIMILIANO DIRECTOR OF FIELD COORDINATION - 01/14/2022 9:30 AM CDT Latricia is a 31 year old who is being evaluated via a billable video visit. How would you like to obtain your AVS? MyChart If the video visit is dropped, the invitation should be resent by: Send to e- mail at: [email or web address] Will anyone else be joining your video visit? No Video Start Time: 9:40 AM Video-Visit Details Type of service: Video Visit Video End Time:9:57 AM Originating Location (pt. Location): Home Distant Location (provider location): [facility] Platform used for Video Visit: [employer] Answers for HPI/ROS submitted by the patient on 01/13/2022 If you checked off any problems, how difficult have these problems made it for you to do your work, take care of things at home, or get along with other people?: Very difficult PHQ9 TOTAL SCORE: 17 [facility] follow up: Initial Headache Clinic visit on 10/31/2021, see note for details. Aimovig definetely helping with migraine frequency. No side effects but some pain in the injection side but not concerning. Has been using Ubrelvy for about 8 days/month -works 25% of the time and total headaches 10-12/months. Prior to Aimovig 20 HAs /month and not as intense now as before starting treatment. In the past was not able to get out the bed because of severe pain -no longer an issue. tried and failed in the past and these include DHE nasal spray, Relpax, oral Imitrex, rizatriptan, naratriptan, injectable Imitrex, Zomig and Midrin Discussed rescue options to optimize and will remain on the same prevention. Plan: Headache prevention-continue Aimovig monthly Rescue treatment -Ubrelvy as needed Ibuprofen as needed but limit use to no more than 14 days per month May try prochlorperazine 5-10 mg every 6 hours as needed +bendryl 25-50 mg orally every 6-8 hours asneeded for a severe migraine rescue treatment. Side effects-drowsiness, insomnia, increased anxiety and muscle tightness Retrial of sumatriptan 100 mg at headache onset and repeat in 2 hours as needed. Max 200 mg in 24 hours. Side effects-drowsiness, dizziness, worsening of headache, muscle tighness. Stop if chest pain Follow up In 3-5 months or sooner if needed Family history -mother, maternal uncles and maternal cousin -all had cerebral aneurysm. Had brain MRA in 2014 and was recommended to repeat brain MRA in at least [address] Lange/per patient. Patient is alert and no in apparent acute distress, mentation appears normal, judgement and insight intact, normal speech. I discussed all my recommendations with Latricia Hatch who verbalizes understanding and comfortable with the plan. All of patient's questions were answered from the best of my knowledge. Patient is in agreement with the plan. 23 minutes spent on the date of the encounter doing video access, chart review, meds review, treatment plan, documentation and further activities as noted above Rosalba Pendleton APRN, [facility] Headache certified [facility]rology Clinic documented in this encounter Plan of Treatment Upcoming Encounters Date Type Specialty Care Team Description 08/19/2022 Office Visit Gastroenterology Mirza Vasquez MD [address] [place] [id number] (Wo rk) documented as of this encounter Results MRA Brain ([place]) w/o Contrast (01/21/2022 9:10 AM CDT) Anatomical Region Laterality Modality Head, SUBRAD MR NEURO, UMP MR NEURO, RAD MR Magnetic Resonance Specimen (Source) Anatomical Location Collection Method / Collectio n Time Received Time / Laterality Volume Impressions 01/21/2022 10:56 AM CDT IMPRESSION: ??Normal MR angiogram of the head. ?? FILIPPO GALEAS MD SYSTEM ID: ??[id number] Narrative 01/21/2022 10:56 AM CDT MR ANGIOGRAM OF THE HEAD WITHOUT CONTRAST ?? 01/21/2022 9:10 AM COMPARISON: None HISTORY: Cerebral aneurysm screening, ge netic risk; Family history of cerebral aneurysm; Headache disorder; Ot her hereditary cerebrovascular disease. TECHNIQUE: ??3D [id number] MR angiog jorge of the head without contrast. MIP reconstruction [...] AM COMPARISON: None HISTORY: Cerebral aneurysm screening, netic risk; Family history of cerebral aneurysm; Headache disorder; Ot her hereditary cerebrovascular disease. TECHNIQUE: 3D [id number] MR angiogra m of the head without [...] h ead. FILIPPO GALEAS MD SYSTEM ID: [id number] Rosalba Pendleton APRN DIRECTOR OF FIELD COORDINATION IMG MRI ORDERAB LES documented in this encounter Visit Diagnoses Diagnosis Intractable 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 aur a and without status migrainosus - Primary Chronic migraine without aura, with intr actable migraine, so stated, without mention of status migrainosus Family history of cerebral aneurysm Family history of other cardiovascular d iseases Headache disorder Headache Other hereditary cerebrovascular disease Family history of cerebral aneurysm Family history of other cardiovascular d iseases Headache disorder Headache Other hereditary cerebrovascular disease documented in this encounter Additional Health Concerns Assessment Noted Time PHQ-9 Depression Total Score: 17 01/14/2022 7:02 AM CD T documented as of this encounter Care Teams Grocery Store Associate Relationship Specialty Start Date End Date Monty Musa, PCP - General Family Medicine 08/13/21 [facility] [address] [place] [address] Alfonso Tang Family Practice 08/13/21 Dayanara Bee MD MD Pediatrics 12/26/14 420 [facility] 75 [place] [address] Min Lange MD Neurology 03/30/16 Marlo Christopher MD Cardiology 10/27/16 MD Terrance 420 [facility] 508 [place] [address] Mel Buckley, RN Nurse Coordinator Physical Medicine and 12/02/16 Rehabilitation (Work) Douglas Cadet MD Gastroenterology 08/13/21 MD [place] [address] [place] [address] Rosalba Pendleton Nurse Practitioner Neurology 09/05/21 MAXIMILIANO Truong DIRECTOR OF FIELD COORDINATION [address] [place] [address] Rosalba Pendleton Assigned Neuroscience 11/09/21 Alexi, Provider CEMENT BOAT AND BARGE LOADER DIRECTOR OF FIELD COORDINATION [address] [place] [address] documented as of this encounter
--- OUTSIDE RECORDS SUMMARY | 2022-06-30 09:48 | XMS_ITS | Encounter Summary ---
:1990 Author Organization [facility] Address [address] [place] [address] Care Team Providers Name Role Phone Monty Musa MD Primary Care Provider Alfonso Tang Unavailable Unavailable Dayanara Bee MD Unavailable Min Lange MD Unavailable Unavailable Marlo Madsen MD Unavailable Mel Buckley RN Unavailable Douglas Cadet MD Unavailable [phone] Rosalba Pendleton APRN GLASS BLOCK INSTALLER Unavailable Rosalba Pendleton APRN GLASS BLOCK INSTALLER Unavailable Encounter Details Date Type Department Care Team Description 03/02/2022 Travel Social History Tobacco Use Types Packs/Day Years Used Date Smoking Tobacco: Never Smokeless Tobacco: Never Alcohol Use Standard Drinks/Week Comments No 0 (1 standard drink = 0.6 oz pure alcoho l) Sex Assigned at Date Recorded Female 10/31/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 documented as of this encounter Plan of Treatment Upcoming Encounters Date Type Specialty Care Team Description 08/19/2022 Office Visit Gastroenterology Mirza Vasquez MD 909 [place] [address] (Wo rk) documented as of this encounter Visit Diagnoses Not on filedocumented in this encounter Additional Health Concerns Assessment Noted Time PHQ-9 Depression Total Score: 17 01/14/2022 7:02 AM CD T documented as of this encounter Care Teams Metal Drilling Machine Operator Relationship Specialty Start Date End Date Monty Musa, PCP - General Family Medicine 08/13/21 [facility] [address] [place] [address] Alfonso Tang [facility] Practice 08/13/21 Dayanara Bee MD MD Pediatrics 12/26/14 420 [facility] 75 [place], [place] [phone] Min Lange MD Neurology 03/30/16 Marlo Christopher MD Cardiology 10/27/16 MD Terrance 420 [facility] 508 [place], [place] [phone] Mel Buckley, RN Nurse Coordinator Physical Medicine and 12/02/16 Rehabilitation (Work) Douglas Cadet MD Gastroenterology 08/13/21 MD [place] [address] [place], [place] [phone] Rosalba Pendleton Nurse Practitioner Neurology 09/05/21 Alexi, AGRICULTURAL EQUIPMENT TEST ENGINEER GLASS BLOCK INSTALLER [address] [id number] Rosalba Pendleton Assigned Neuroscience 11/09/21 Aelxi, Provider AGRICULTURAL EQUIPMENT TEST ENGINEER GLASS BLOCK INSTALLER [address] [id number] documented as of this encounter
--- OUTSIDE RECORDS SUMMARY | 2022-06-30 09:48 | XMS_ITS | Encounter Summary ---
:1990 Author Organization [facility] Address [address] [place] [address] Care Team Providers Name Role Phone Alfonso Tang Primary Care Provider Unavailable Dayanara Bee MD Unavailable Min Lange MD Unavailable Unavailable Marlo Madsen MD Unavailable Mel Buckley RN Unavailable Encounter Details Date Type Department Care Team Description 02/10/2021 [facility] Provider, Histor ical Social History Tobacco Use Types Packs/Day Years Used Date Smoking Tobacco: Never Smokeless Tobacco: Never Alcohol Use Standard Drinks/Week Comments No 0 (1 standard drink = 0.6 oz pure alcoho l) Sex Assigned at Date Recorded Female 10/31/2021 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 CT MISC FCIS ORDER Routine 09/29/2007 12:00 AM Re sults for this INTERNATIONAL MARKETING COORDINATOR procedure are i n the results section. documented in this encounter Results CT Misc Order (09/29/2007 12:00 AM INTERNATIONAL MARKETING COORDINATOR) Anatomical Region Laterality Modality Computed Tomography Specimen (Source) Anatomical Location Collection Method / Collectio n Time Received Time / Laterality Volume Narrative 09/29/2007 12:00 AM INTERNATIONAL MARKETING COORDINATOR See Historical Hospital Medical Record f or documentation Procedure Note Provider, Historical - 02/10/2021Formatt ing of this note might be different from the original. See Historical Hospital Medical Record f or documentation Historical Provider IMG CT ORDERABLES CT Misc Order (09/29/2007 12:00 AM INTERNATIONAL MARKETING COORDINATOR) Anatomical Region Laterality Modality Computed Tomography Specimen (Source) Anatomical Location Collection Method / Collectio n Time Received Time / Laterality Volume Narrative 09/29/2007 12:00 AM INTERNATIONAL MARKETING COORDINATOR See Historical Hospital Medical Record f or documentation Procedure Note Provider, Historical - 02/10/2021Formatt ing of this note might be different from the original. See Historical Hospital Medical Record f or documentation Historical Provider IMG CT ORDERABLES documented in this encounter Visit Diagnoses Not on filedocumented in this encounter Care Teams Lining Stamper Relationship Specialty Start Date End Date Alfonso Tang PCP - General Family Practice 09/04/13 08/12/21 Dayanara Bee MD MD Pediatrics 12/26/14 420 [facility] 75 [place] [address] Min Lange MD MD Neurology 03/30/16 Marlo Madsen MD Cardiology 10/27/16 MD 420 [facility] [address] [place] [address] Mel Buckley, DIAZ Nurse Coordinator Physical Medicine and 12/02/16 Rehabilitation documented as of this encounter
--- OUTSIDE RECORDS SUMMARY | 2022-06-30 09:48 | XMS_ITS | Encounter Summary ---
:1990 Author Organization [facility] Address [address] [place] [address]. [place] [address] Care Team Providers Name Role Phone Alfonso Tang Primary Care Provider Unavailable Dayanara Bee MD Unavailable Min Lange MD Unavailable Unavailable Marlo Madsen MD Unavailable Mel Buckley RN Unavailable Reason for Visit Reason Comments Sleep Problem [facility] Encounter Details Date Type Department Care Team Description 02/10/2017 Documentation Only [facility] Sleep Sleep Problem (STM ) Center [facility] Care [address] [place] [address], [address] [place] [address] Social History Tobacco Use Types Packs/Day Years Used Date Smoking Tobacco: Never Smokeless Tobacco: Never Alcohol Use Standard Drinks/Week Comments No 0 (1 standard drink = 0.6 oz pure alcoho l) Sex Assigned at Date Recorded Female 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 ? Compliance (Goal >70%) % compliance greater than four hours rolling average 14 days: 64. % ? ? Leak (Goal < 10%) Average % of night in large leak Rolling Average 14 days (PATEL): 1% ? ? AHI (Goal < 5) AHI Rolling Average 14 Day: 2.75 ? ? Usage (Goal >240) Time mask on face 14 day average: 276 min Assessment:Pt not meeting objective benchmarks for compliance however this has been increasing. Action plan: Waiting for patient to return call. pt to follow up per provider request (1-2 yrs) documented in this encounter Plan of Treatment Upcoming Encounters Date Type Specialty Care Team Description 08/19/2022 Office Visit Gastroenterology Mirza Vasquez MD [address] [place] [address] (Wo rk) documented as of this encounter Visit Diagnoses Not on filedocumented in this encounter Care Teams Dock Associate Relationship Specialty Start Date End Date Alfonso Tang PCP - General Family Practice 09/04/13 08/12/21 Dayanara Bee MD MD Pediatrics 12/26/[address] [place] [address] 75 [place] [address] Min Lange MD MD Neurology 03/30/16 Marlo Madsen MD Cardiology 10/27/[address] [place] [address] 508 [place] [address] Mel Buckley, RN Nurse Coordinator Physical Medicine and 12/02/16 Rehabilitation documented as of this encounter
--- OUTSIDE RECORDS SUMMARY | 2022-06-30 09:48 | XMS_ITS | Encounter Summary ---
:1990 Author Organization [facility] Address [address] [place] [place] [address]. [place] [address] Care Team Providers Name Role Phone Monty Musa MD Primary Care Provider Alfonso Tang Unavailable Unavailable Dayanara Bee MD Unavailable Min Lange MD Unavailable Unavailable Marlo Madsen MD Unavailable Mel Buckley RN Unavailable Douglas Cadet MD Unavailable Rosalba Pendleton APRN [facility] Unavailable Reason for Visit Reason Onset Date Comments *-*INCOMING RECORDS*-* 10/31/2021 Appointment 2021 Encounter Details Date Type Department Care Team Description [facility]/31[facility]*-* Neurology Clinic MAXIMILIANO Truong (Paula ointment 10/31/2021) [facility] [address] [id number] [place] [address] [phone] (Wo rk) Social History Tobacco Use Types Packs/Day Years Used Date Smoking Tobacco: Never Smokeless Tobacco: Never Alcohol Use Standard Drinks/Week Comments No 0 (1 standard drink = 0.6 oz pure alcoho l) Sex Assigned at Date Recorded Female 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 Date: 10/31/2021 ?? Time: 830am ?? Location: [facility] REFERRAL INFORMATION: ?? Referring provider: Dr. Musa ?? Referring providers clinic: [facility] ?? Reason for visit/diagnosis Headaches RECORDS REQUESTED FROM: Clinic name Comments Records Status Imaging Status [facility] Scanned to Chart No Images Internal Dr. Lange-08/28/2016, 04/09/2016 MRA Brain-01/22/2015 Epic PACS [facility] Requested Requested 10/22/2021-Request for records and Images faxed to [facility]-MR @ 205pm 10/30/2021-2nd Request for Records and Images faxed to [facility]-MR @ 749am 10/31/2021-[place] records scanned to Chart-MR @ 938am [employer] HULL documented in this encounter Plan of Treatment Upcoming Encounters Date Type Specialty Care Team Description 08/19/2022 Office Visit Gastroenterology Mirza Vasquez MD [address] [place] [phone] (Wo rk) documented as of this encounter Visit Diagnoses Not on filedocumented in this encounter Additional Health Concerns Assessment Noted Time PHQ-9 Depression Total Score: 16 11/01/2021 7:01 AM CS T documented as of this encounter Care Teams Distribution Systems Serviceperson Relationship Specialty Start Date End Date Monty Musa MD PCP - General Family Medicine 08/13/21 [facility] [address] [place] [address] Alfonso Tang Family Practice 08/13/21 Dayanraa Bee MD MD Pediatrics 12/26/14 420 [facility] 75 [place] [address] Min Lange MD Neurology 03/30/16 Marlo Christopher MD Cardiology 10/27/16 MD Terrance 420 [facility] [address] [place] [address] Mel Buckley, RN Nurse Coordinator Physical Medicine and 12/02/16 Rehabilitation Douglas Cadet MD Gastroenterology 08/13/21 MD [place] [address] [place] [address] Rosalba Pendleton Nurse Practitioner Neurology 09/05/21 MAXIMILIANO Truong COMPUTER PERIPHERAL EQUIPMENT OPERATOR 909 [facility] [id number] [place] [address] documented as of this encounter
--- OUTSIDE RECORDS SUMMARY | 2022-06-30 09:48 | XMS_ITS | Encounter Summary ---
:1990 Author Organization [place] Address [facility] [place] [address] Care Team Providers Name Role Phone Alfonso Tang Primary Care Provider Unavailable Dayanara Bee MD Unavailable Min Lange MD Unavailable Unavailable Marlo Madsen MD Unavailable Mel Buckley RN Unavailable Reason for Referral Consultation (Routine) - Pending Review Specialty Diagnoses / Procedures Referred By Contact Refer red To Contact Diagnoses Migraine Monty Musa MD [facility] [address] [place] [address] Referral ID Status Reason Start Date Expiration Date Visits V isits Requested Authorized [id number] Pending 08/12/2021 08/12/2022 1 1 Review OMER AGENT Encounter Details Date Type Department Care Team Description 08/12/2021 Transcribe Orders GENERIC EXTERNAL Provider, Yvette manzanares (Primary DATA DEPARTMENT External Data Dx) Social History Tobacco Use Types Packs/Day Years Used Date Smoking Tobacco: Never Assessed Sex Assigned at Date Recorded Female 10/31/2021 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 documented as of this encounter Plan of Treatment Upcoming Encounters Date Type Specialty Care Team Description 08/19/2022 Office Visit Gastroenterology Mirza Vasquez MD 909 [place], [place] [phone] (Wo rk) Scheduled Referrals Name Type Priority Associated Diagnoses Order [facility] Adult Neurology Referral Referral Routine Migraine Ord ered: 08/12/2021 documented as of this encounter Visit Diagnoses Diagnosis Migraine - Primary Migraine, unspecified, without mention o f intractable migraine without mention of status migrainosus documented in this encounter Care Teams Customer Relations Coordinator Relationship Specialty Start Date End Date Alfonso Tang PCP - General Family Practice 09/04/13 08/12/21 Dayanara Bee MD MD Pediatrics 12/26/[address] [place] [address] 75 [place] [address] Min aLnge MD MD Neurology 03/30/16 Marlo Madsen MD Cardiology 10/27/[address] [place] [address] Mel Buckley, RN Nurse Coordinator Physical Medicine and 12/02/16 Rehabilitation documented as of this encounter
--- OUTSIDE RECORDS SUMMARY | 2022-06-30 09:48 | XMS_ITS | Encounter Summary ---
:1990 Author Organization [place] Address [address] [place] [address]. [place] [address] Care Team Providers Name Role Phone Alfonso Tang Primary Care Provider Unavailable Dayanara Bee MD Unavailable Min Lange MD Unavailable Unavailable Marlo Madsen MD Unavailable Mel Buckley RN Unavailable Encounter Details Date Type Department Care Team Description 02/01/2017 Office Visit [facility] Gastroenterology Latricia Bryan depressive and IBD Clinic L, PhD disorder, recurrent [address] [place] [address] [address] [facility] episode, moderate 4th Floor SE (H) (Primary Dx) [place], [place] [address] [place], [place] [phone] Social History Tobacco Use Types Packs/Day Years Used Date Smoking Tobacco: Never Smokeless Tobacco: Never Alcohol Use Standard Drinks/Week Comments No 0 (1 standard drink = 0.6 oz pure alcoho l) Sex Assigned at Date Recorded Female 10/31/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 I called to check-in and left patient a callback voicemail. Patient will be rescheduled per their availability. She plans to move to [facility] at the end of the month. I encouraged her to call if any questions orneeds arise prior to her move. Latricia Bryan, PhD, Clinical Health Psychologist documented in this encounter Plan of Treatment Upcoming Encounters Date Type Specialty Care Team Description 08/19/2022 Office Visit Gastroenterology Mirza Vasquez MD [address] [place] [id number] (Wo rk) documented as of this encounter Visit Diagnoses Diagnosis Major depressive disorder, recurrent epi sode, moderate (H) - Primary Major depressive disorder, recurrent epi sode, moderate documented in this encounter Care Teams Inbound Call Center Representative Relationship Specialty Start Date End Date Alfonso Tang PCP - General Family Practice 09/04/13 08/12/21 Dayanara Bee MD MD Pediatrics 12/26/[address] [place] [address] 75 [place], [place] [phone] Min Lange MD MD Neurology 03/30/16 Marlo Madsen MD Cardiology 10/27/[address] 508 [place], [place] [address] Mel Buckley, RN Nurse Coordinator Physical Medicine and 12/02/16 Rehabilitation documented as of this encounter
--- OUTSIDE RECORDS SUMMARY | 2022-06-30 09:48 | XMS_ITS | Encounter Summary ---
:1990 Author Organization [place] Address [address] [place] [address] Care Team Providers Name Role Phone Alfonso Tang Primary Care Provider Unavailable Dayanara Bee MD Unavailable Min Lange MD Unavailable Unavailable Marlo Madsen MD Unavailable Mel Buckley RN Unavailable Encounter Details Date Type Department Care Team Description 02/09/2021 Records - [facility] Provider, Histor ical Social History Tobacco Use Types Packs/Day Years Used Date Smoking Tobacco: Never Smokeless Tobacco: Never Alcohol Use Standard Drinks/Week Comments No 0 (1 standard drink = 0.6 oz pure alcoho l) Sex Assigned at Date Recorded Female 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 CT MISC FCIS ORDER Routine 10/21/2006 12:00 AM Re sults for this DEPARTMENT CLERK procedure are i n the results section. documented in this encounter Results CT Misc Order (10/21/2006 12:00 AM DEPARTMENT CLERK) Anatomical Region Laterality Modality Computed Tomography Specimen (Source) Anatomical Location Collection Method / Collectio n Time Received Time / Laterality Volume Narrative 10/21/2006 12:00 AM DEPARTMENT CLERK See Historical Hospital Medical Record f or documentation Procedure Note Provider, Historical - 02/09/2021Formatt ing of this note might be different from the original. See Historical Hospital Medical Record f or documentation Historical Provider IMG CT ORDERABLES CT Misc Order (10/21/2006 12:00 AM DEPARTMENT CLERK) Anatomical Region Laterality Modality Computed Tomography Specimen (Source) Anatomical Location Collection Method / Collectio n Time Received Time / Laterality Volume Narrative 10/21/2006 12:00 AM DEPARTMENT CLERK See Historical Hospital Medical Record f or documentation Procedure Note Provider, Historical - 02/09/2021Formatt ing of this note might be different from the original. See Historical Hospital Medical Record f or documentation Historical Provider IMG CT ORDERABLES documented in this encounter Visit Diagnoses Not on filedocumented in this encounter Care Teams Timber Management Assistant Relationship Specialty Start Date End Date Alfonso Tang PCP - General Family Practice 09/04/13 08/12/21 Dayanara Bee MD MD Pediatrics 12/26/14 420 [facility] 75 [place] [address] Min Lange MD MD Neurology 03/30/16 Marlo Madsen MD Cardiology 10/27/16 420 [facility] 508 [place] [address] Mel Buckley, DIAZ Nurse Coordinator Physical Medicine and 12/02/16 Rehabilitation documented as of this encounter
--- OUTSIDE RECORDS SUMMARY | 2022-06-30 09:48 | XMS_ITS | Encounter Summary ---
:1990 Author Organization [place] Address [address] [place] [address] Care Team Providers Name Role Phone Monty Musa MD Primary Care Provider Alfonso Tang Unavailable Unavailable Dayanara Bee MD Unavailable Min Lange MD Unavailable Unavailable Marlo Madsen MD Unavailable Mel Buckley RN Unavailable Douglas Cadet MD Unavailable [phone] Rosalba Pendleton APRN PRESS ROOM SUPERVISOR Unavailable Rosalba Pendleton APRN PRESS ROOM SUPERVISOR Unavailable Encounter Details Date Type Department Care Team Description 01/14/2022 Travel Social History Tobacco Use Types Packs/Day Years Used Date Smoking Tobacco: Never Smokeless Tobacco: Never Alcohol Use Standard Drinks/Week Comments No 0 (1 standard drink = 0.6 oz pure alcoho l) Sex Assigned at Date Recorded Female 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 documented as of this encounter Plan of Treatment Upcoming Encounters Date Type Specialty Care Team Description 08/19/2022 Office Visit Gastroenterology Mirza Vasquez MD 909 [place] [address] (Wo rk) documented as of this encounter Visit Diagnoses Not on filedocumented in this encounter Additional Health Concerns Assessment Noted Time PHQ-9 Depression Total Score: 17 01/14/2022 7:02 AM CD T documented as of this encounter Care Teams Senior Teradata Developer Relationship Specialty Start Date End Date Monty Musa, PCP - General Family Medicine 08/13/21 [facility] [address] [place] [address] Alfonso Tang Family Practice 08/13/21 Dayanara Bee MD MD Pediatrics 12/26/14 420 [facility] 75 [place] [address] Min Lange MD Neurology 03/30/16 Marlo Christopher MD Cardiology 10/27/16 MD [place] 420 [facility] 508 [place], [place] [address] Mel Buckley, RN Nurse Coordinator Physical Medicine and 12/02/16 Rehabilitation (Work) Douglas Cadet MD Gastroenterology 08/13/21 [facility] [place] [address] [place] [address] Rosalba Pendleton Nurse Practitioner Neurology 09/05/21 MAXIMILIANO Truong PRESS ROOM SUPERVISOR [address] [phone] Rosalba Pendleton Assigned Neuroscience 11/09/21 Alexi, Provider RECORD TABULATING CLERK PRESS ROOM SUPERVISOR [address] [address] documented as of this encounter
--- OUTSIDE RECORDS SUMMARY | 2022-06-30 09:48 | XMS_ITS | Encounter Summary ---
:1990 Author Organization [place] Address [address] [place] [address] Care Team Providers Name Role Phone Alfonso Tang Primary Care Provider Unavailable Dayanara Bee MD Unavailable Min Lange MD Unavailable Unavailable Marlo Madsen MD Unavailable Mel Buckley RN Unavailable Encounter Details Date Type Department Care Team Description 02/01/2017 Records - [facility] CONVERSION Provider, Zo campbell Social History Tobacco Use Types Packs/Day Years Used Date Smoking Tobacco: Never Smokeless Tobacco: Never Alcohol Use Standard Drinks/Week Comments No 0 (1 standard drink = 0.6 oz pure alcoho l) Sex Assigned at Date Recorded Female 10/31/2021 7:59 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 documented as of this encounter Plan of Treatment Upcoming Encounters Date Type Specialty Care Team Description 08/19/2022 Office Visit Gastroenterology Mirza Vasquez MD 909 [place] [address] (Wo rk) documented as of this encounter Visit Diagnoses Not on filedocumented in this encounter Care Teams Index Editor Relationship Specialty Start Date End Date Alfonso Tang PCP - General Family Practice 09/04/13 08/12/21 Dayanara Bee MD MD Pediatrics 12/26/[address] [place] [address] 75 [place] [address] Min Lange MD MD Neurology 03/30/16 Marlo Madsen MD Cardiology 10/27/[address] [place] [address] Mel Buckley, DIAZ Nurse Coordinator Physical Medicine and 12/02/16 Rehabilitation documented as of this encounter
--- OUTSIDE RECORDS SUMMARY | 2022-06-30 09:48 | XMS_ITS | Encounter Summary ---
:1990 Author Organization [place] Address [address] [place] [address] Care Team Providers Name Role Phone Alfonso Tang Primary Care Provider Unavailable Dayanara Bee MD Unavailable Min Lange MD Unavailable Unavailable Marlo Madsen MD Unavailable Mel Buckley RN Unavailable Reason for Visit Reason Comments Medication Refill Encounter Details Date Type Department Care Team Description 05/04/2017 Refill [facility] Min Lange MD Medication Refill Physicians [facility] [address] [place] [address], [facility] [address] [place] [address] Social History Tobacco Use Types Packs/Day Years Used Date Smoking Tobacco: Never Smokeless Tobacco: Never Alcohol Use Standard Drinks/Week Comments No 0 (1 standard drink = 0.6 oz pure alcoho l) Sex Assigned at Date Recorded Female 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 documented as of this encounter Plan of Treatment Upcoming Encounters Date Type Specialty Care Team Description 08/19/2022 Office Visit Gastroenterology Mirza Vasquez MD [address] [place] [phone] (Wo rk) documented as of this encounter Visit Diagnoses Diagnosis Migraine without aura and without status migrainosus, not intractable Migraine without aura, without mention o f intractable migraine without mention of status migrainosus documented in this encounter Care Teams Solar Sales Assessor Relationship Specialty Start Date End Date Alfonso Tang PCP - General Family Practice 09/04/13 08/12/21 Dayanara Bee MD MD Pediatrics 12/26/[address] [place] [address] 75 [place] [address] Min Lange MD MD Neurology 03/30/16 Marlo Madsen MD Cardiology 10/27/[address] 508 [place] [address] Mel Buckley, DIAZ Nurse Coordinator Physical Medicine and 12/02/16 Rehabilitation documented as of this encounter
--- OUTSIDE RECORDS SUMMARY | 2022-06-30 09:48 | XMS_ITS | Encounter Summary ---
:1990 Author Organization [place] Address [address] [place] [address] Care Team Providers Name Role Phone Alfonso Tang Primary Care Provider Unavailable Dayanara Bee MD Unavailable Min Lange MD Unavailable Unavailable Marlo Madsen MD Unavailable Mel Buckley RN Unavailable Encounter Details Date Type Department Care Team Description 02/09/2021 Records - [facility] Provider, Histor ical Social History Tobacco Use Types Packs/Day Years Used Date Smoking Tobacco: Never Smokeless Tobacco: Never Alcohol Use Standard Drinks/Week Comments No 0 (1 standard drink = 0.6 oz pure alcoho l) Sex Assigned at Date Recorded 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 CT MISC FCIS ORDER Routine 09/01/2006 12:00 AM Re sults for this WIND UP OPERATOR procedure are i n the results section. documented in this encounter Results CT Misc Order (09/01/2006 12:00 AM WIND UP OPERATOR) Anatomical Region Laterality Modality Computed Tomography Specimen (Source) Anatomical Location Collection Method / Collectio n Time Received Time / Laterality Volume Narrative 09/01/2006 12:00 AM WIND UP OPERATOR See Historical Hospital Medical Record f or documentation Procedure Note Provider, Historical - 02/09/2021Formatt ing of this note might be different from the original. See Historical Hospital Medical Record f or documentation Historical Provider IMG CT ORDERABLES CT Misc Order (09/01/2006 12:00 AM WIND UP OPERATOR) Anatomical Region Laterality Modality Computed Tomography Specimen (Source) Anatomical Location Collection Method / Collectio n Time Received Time / Laterality Volume Narrative 09/01/2006 12:00 AM WIND UP OPERATOR See Historical Hospital Medical Record f or documentation Procedure Note Provider, Historical - 02/09/2021Formatt ing of this note might be different from the original. See Historical Hospital Medical Record f or documentation Historical Provider IMG CT ORDERABLES documented in this encounter Visit Diagnoses Not on filedocumented in this encounter Care Teams Oil Driller Relationship Specialty Start Date End Date Alfonso Tang PCP - General Family Practice 09/04/13 08/12/21 Dayanara Bee MD MD Pediatrics 12/26/14 420 [facility] 75 [place] [address] Min Lange MD MD Neurology 03/30/16 Marlo Madsen MD Cardiology 10/27/16 420 [facility] 508 [place] [address] Mel Buckley, DIAZ Nurse Coordinator Physical Medicine and 12/02/16 Rehabilitation documented as of this encounter
--- OUTSIDE RECORDS SUMMARY | 2022-06-30 09:48 | XMS_ITS | Encounter Summary ---
:1991 Author Organization [facility] Address [address] [place] [address] Care Team Providers Name Role Phone Alfonso Tang Primary Care Provider Unavailable Dayanara Bee MD Unavailable Min Lange MD Unavailable Unavailable Marlo Madsen MD Unavailable Mel Buckley RN Unavailable Reason for Referral Consultation - Closed Specialty Diagnoses / Procedures Referred By Contact Refer red To Contact Diagnoses Intractable 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 aura [facility] Neurology [address] [place] [phone] Referral ID Status Reason Start Date Expiration Date Visits Requ ested Visits Authorized [id number] Closed 02/01/2017 02/01/2018 1 1 Encounter Details Date Type Department Care Team Description 02/01/2017 [facility] Neurology Sarah Pardo RN 909 [facility] [address] [place] [address] [place] [phone] Social History Tobacco Use Types Packs/Day Years Used Date Smoking Tobacco: Never Smokeless Tobacco: Never Alcohol Use Standard Drinks/Week Comments No 0 (1 standard drink = 0.6 oz pure alcoho l) Sex Assigned at Date Recorded 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 encounter Plan of Treatment Upcoming Encounters Date Type Specialty Care Team Description 08/19/2022 Office Visit Gastroenterology Mirza Vasquez MD [address] [place] [address] (Wo rk) Scheduled Referrals Name Type Priority Associated Diagnoses Order S chedule NEUROLOGY ADULT Referral Routine Intractable chronic Order ed: 02/01/2017 REFERRAL migraine without aura documented as of this encounter Visit Diagnoses Diagnosis Intractable 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 aur a - Primary Chronic migraine without aura, with intr actable migraine, so stated, without mention of status migrainosus documented in this encounter Care Teams Home Manager Relationship Specialty Start Date End Date Alfonso Tang PCP - General Family Practice 09/04/13 08/12/21 Dayanara Bee MD MD Pediatrics 12/26/[address] [place] [address] 75 [place], [place] [phone] Min Lange MD MD Neurology 03/30/16 Marlo Madsen MD Cardiology 10/27/[address] [place] [address] Mel Buckley, DIAZ Nurse Coordinator Physical Medicine and 12/02/16 Rehabilitation documented as of this encounter
--- OUTSIDE RECORDS SUMMARY | 2022-06-30 09:48 | XMS_ITS | Encounter Summary ---
:1990 Author Organization [place] Address [address] [place] [address] Care Team Providers Name Role Phone Alfonso Tang Primary Care Provider Unavailable Dayanara Bee MD Unavailable Min Lange MD Unavailable Unavailable Marlo Madsen MD Unavailable Mel Buckley RN Unavailable Reason for Visit Reason Onset Date Comments Clinic Care Coordination - Follow-up 01/29/2017 Encounter Details Date Type Department Care Team Description 01/29/2017 Telephone [facility] Gastroenterology Dmitri Vasquez [facility] Abby Coordination - 9 [facility] MD [place] Follow-up 4th Floor [address] [place] [phone] [place], [place] [phone] [address] Social History Tobacco Use Types Packs/Day Years Used Date Smoking Tobacco: Never Smokeless Tobacco: Never Alcohol Use Standard Drinks/Week Comments No 0 (1 standard drink = 0.6 oz pure alcoho l) Sex Assigned at Date Recorded 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 Vasquez. Per pt she had discussed this at her last visit and Dr. Vasquez did not have any specific provider that she recommended, but was confident that they would have a GI provider who could continue care. Pt states okayto mail this referral, confirmed her new address. Will route to speech and language clinician. Cierra Briscoe LPN documented in this encounter Plan of Treatment Upcoming Encounters Date Type Specialty Care Team Description 08/19/2022 Office Visit Gastroenterology Mirza Vasquez MD 909 [place] [address] (Wo rk) documented as of this encounter Visit Diagnoses Not on filedocumented in this encounter Care Teams Batch Or Continuous Still Operator Relationship Specialty Start Date End Date Alfonso Tang PCP - General Family Practice 09/04/13 08/12/21 Dayanara Bee MD MD Pediatrics 12/26/[address] [place] [address] 75 [place], [place] [phone] Min Lange MD MD Neurology 03/30/16 Marlo Madsen MD Cardiology 10/27/[address] [place], [place] [phone] Mel Buckley, DIAZ Nurse Coordinator Physical Medicine and 12/02/16 Rehabilitation documented as of this encounter
--- OUTSIDE RECORDS SUMMARY | 2022-06-30 09:48 | XMS_ITS | Encounter Summary ---
:1990 Author Organization [place] Address [address] [place] [address] Care Team Providers Name Role Phone Alfonso Tang Primary Care Provider Unavailable Dayanara Bee MD Unavailable Min Lange MD Unavailable Unavailable Marlo Madsen MD Unavailable Mel Buckley RN Unavailable Reason for Visit Reason Comments Medication Refill Encounter Details Date Type Department Care Team Description 08/10/2017 [facility] [place] Alfonso Tang RETIRED Medication Refill [facility] [address] [address] Social History Tobacco Use Types Packs/Day Years Used Date Smoking Tobacco: Never Smokeless Tobacco: Never Alcohol Use Standard Drinks/Week Comments No 0 (1 standard drink = 0.6 oz pure alcoho l) Sex Assigned at Date Recorded 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 documented as of this encounter Plan of Treatment Upcoming Encounters Date Type Specialty Care Team Description 08/19/2022 Office Visit Gastroenterology Mirza Vasquez MD 909 [place], [place] [address] (Wo rk) documented as of this encounter Visit Diagnoses Not on filedocumented in this encounter Care Teams Layout Designer Relationship Specialty Start Date End Date Alfonso Tang PCP - General Family Practice 09/04/13 08/12/21 Dayanara Bee MD MD Pediatrics 12/26/14 420 [facility] 75 [place] [address] Min Lange MD MD Neurology 03/30/16 Marlo Madsen MD Cardiology 10/27/16 [place] 420 [facility] 508 [place] [address] Mel Buckley, RN Nurse Coordinator Physical Medicine and 12/02/16 Rehabilitation documented as of this encounter
--- OUTSIDE RECORDS SUMMARY | 2022-06-30 09:49 | XMS_ITS | Encounter Summary ---
:1990 Author Organization [place] Address [address] [place] [address] Care Team Providers Name Role Phone Alfonso Tang Primary Care Provider Unavailable Dayanara Bee MD Unavailable Min Lange MD Unavailable Unavailable Marlo Madsen MD Unavailable Mel Buckley RN Unavailable Encounter Details Date Type Department Care Team Description 01/04/2017 Records - [facility] CONVERSION Provider, Zo campbell Social History Tobacco Use Types Packs/Day Years Used Date Smoking Tobacco: Never Smokeless Tobacco: Never Alcohol Use Standard Drinks/Week Comments No 0 (1 standard drink = 0.6 oz pure alcoho l) Sex Assigned at Date Recorded 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 documented as of this encounter Plan of Treatment Upcoming Encounters Date Type Specialty Care Team Description 08/19/2022 Office Visit Gastroenterology Mirza Vasquez MD 909 [place] [address] (Wo rk) documented as of this encounter Visit Diagnoses Not on filedocumented in this encounter Care Teams Sourcing Consultant Relationship Specialty Start Date End Date Alfonso Tang PCP - General Family Practice 09/04/13 08/12/21 Dayanara Bee MD MD Pediatrics 12/26/[address] [place] [address] 75 [place] [address] Min Lange MD MD Neurology 03/30/16 Malro Madsen MD Cardiology 10/27/[address] [place] [address] Mel Buckley, DIAZ Nurse Coordinator Physical Medicine and 12/02/16 Rehabilitation documented as of this encounter
--- OUTSIDE RECORDS SUMMARY | 2022-06-30 09:49 | XMS_ITS | Encounter Summary ---
:1991 Author Organization [place] Address [address] [place] [address] Care Team Providers Name Role Phone Alfonso Tang Primary Care Provider Unavailable Dayanara Bee MD Unavailable Min Lange MD Unavailable Unavailable Marlo Madsen MD Unavailable Encounter Details Date Type Department Care Team Description 11/24/2016 Documentation Only [facility] Johan Burleson MD Canceled (Other) [facility] [address] [place] [address] [address] [address] [address] [place], [place] (Work) [address] [phone] Social History Tobacco Use Types Packs/Day Years Used Date Smoking Tobacco: Never Smokeless Tobacco: Never Alcohol Use Standard Drinks/Week Comments No 0 (1 standard drink = 0.6 oz pure alcoho l) Sex Assigned at Date Recorded 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 as of 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 encounter Plan of Treatment Upcoming Encounters Date Type Specialty Care Team Description 08/19/2022 Office Visit Gastroenterology Mirza Vasquez MD 909 [place] [address] (Wo rk) documented as of this encounter Visit Diagnoses Not on filedocumented in this encounter Care Teams Machine Filler Relationship Specialty Start Date End Date Alfonso Tang PCP - General Family Practice 09/04/13 08/12/21 Dayanara Bee MD MD Pediatrics 12/26/14 420 [facility] 75 [place] [address] Min Lange MD MD Neurology 03/30/16 Marlo Madsen MD MD Cardiology 10/27/16 420 [facility] 508 [place] [address] documented as of this encounter
--- OUTSIDE RECORDS SUMMARY | 2022-06-30 09:49 | XMS_ITS | Encounter Summary ---
:1990 Author Organization [facility] Address [address] [place] [address]. [place] [address] Care Team Providers Name Role Phone Alfonso Tang Primary Care Provider Unavailable Dayanara Bee MD Unavailable Min Lange MD Unavailable Unavailable Marlo Madsen MD Unavailable Mel Buckley RN Unavailable Reason for Visit Reason Comments RECHECK UMP RETURN MIGRAINE BOTOX Encounter Details Date Type Department Care Team Description 12/18/2016 [facility] Mauricio Melgar actable chronic Medicine and MD Laura migraine withou t aura Rehabilitation and without status [address] [place] [address] migrainosus (Primary 3rd Floor Dx) [place] [address] Social History Tobacco Use Types Packs/Day Years Used Date Smoking Tobacco: Never Smokeless Tobacco: Never Alcohol Use Standard Drinks/Week Comments No 0 (1 standard drink = 0.6 oz pure alcoho l) Sex Assigned at Date Recorded 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 documented as of this encounter Last Filed Vital Signs Vital Sign Reading Time Taken Comments Blood Pressure 121/68 12/18/2016 8:54 AM CDT Pulse 65 12/18/2016 8:54 AM CDT Temperature 36.6 ??C (97.9 ??F) 12/18/2016 8:54 AM CDT Respiratory Rate - - Oxygen Saturation - - Inhaled Oxygen Concentration - - Weight 99.9 kg (220 lb 3.2 oz) 12/18/2016 8:54 AM CDT Height 167.6 cm (5' 6) 12/18/2016 8:54 AM CDT Body Mass Index 35.54 12/18/2016 8:54 AM CDT documented in this encounter Progress Notes Mauricio Melgar - 12/18/2016 8:45 AM CDT BOTULINUM TOXIN PROCEDURE - HEADACHE - NOTE Chief Complaint Patient presents with ??? RECHECK UMP RETURN MIGRAINE BOTOX BP 121/68 (BP Location: Left arm, Patient Position: Chair, Cuff Size: Adult Large) Pulse 65 Temp97.9 ??F (36.6 ??C) (Oral) Ht 1.676 m (5' 6) Wt 99.9 kg (220 lb 3.2 oz) BMI 35.54 kg/m2 Current Outpatient Prescriptions: ??? botulinum toxin type A (BOTOX) 100 UNITS injection, Inject 200 Units into the muscle every 3 months, Disp: 200 Units, Rfl: 4 ??? clonazePAM (KLONOPIN) 0.5 MG tablet, Take 0.5 mg by mouth as needed, Disp: , Rfl: ??? medroxyPROGESTERone (PROVERA) 10 MG tablet, Take 10 mg by mouth every 3 months, Disp: , Rfl: ??? Atorvastatin Calcium (LIPITOR PO), Take 20 mg by mouth At Bedtime , Disp: , Rfl: ??? metoclopramide (REGLAN) 5 MG tablet, Take 1 tablet (5 mg) by mouth 2 times daily as needed, Disp: 30 tablet, Rfl: 1 ??? fludrocortisone (FLORINEF) 0.1 MG tablet, Take 1 tablet (0.1 mg) by mouth daily No refills, please contact PCP or appt needed (Patient taking differently: Take 0.2 mg by mouth every morning No refills, please contact PCP or appt needed), Disp: 30 tablet, Rfl: 0 ??? clobetasol (TEMOVATE) 0.05 % cream, Apply topically as needed, Disp: , Rfl: ??? CITALOPRAM HYDROBROMIDE PO, Take 10 mg by mouth every evening , Disp: , Rfl: ??? zonisamide (ZONEGRAN) 50 MG capsule, TAKE 4 CAPSULES BY ORAL ROUTE DAILY, Disp: 120 capsule, Rfl: 8 ??? oxyCODONE-acetaminophen (PERCOCET) 5-325 MG per tablet, Take 1 tablet by mouth every 12 hours asneeded for moderate to severe pain, Disp: 10 tablet, Rfl: 0 ??? order for DME, DREAMSTATION 5-15 CM/H20 NASAL WISP FABRIC, Disp: , Rfl: ??? meclizine (ANTIVERT) 25 MG tablet, TAKE 1 TABLET BY MOUTH THREE TIMES DAILY, Disp: , Rfl: ??? ondansetron (ZOFRAN-ODT) 4 MG disintegrating tablet, DISSOLVE 1 TABLET (4 MG TOTAL) ON TONGUE EVERY 8 (EIGHT) HOURS NEEDED FOR NAUSEA., Disp: , Rfl: ??? desvenlafaxine succinate (PRISTIQ) 100 MG TB24 24 hr tablet, Take 100 mg by mouth every morning , Disp: , Rfl: ??? linaclotide (LINZESS) 290 MCG capsule, Take 1 capsule (290 mcg) by mouth every morning (before breakfast) Please follow up in clinic as scheduled, Disp: 30 capsule, Rfl: 11 ??? order for DME, Equipment being ordered: Micro climate cooling vest, Disp: 1 kit, Rfl: 0 ??? Multiple Vitamins-Minerals (WOMENS MULTIVITAMIN PLUS PO), Take 1 tablet by mouth every morning ,Disp: , Rfl: Allergies Allergen Reactions ??? Augmentin GI Disturbance PHYSICAL EXAM: She doesn't have a headache today, but had a 7/10 headache on Wednesday, which lasted about 8 hours. HPI: Patient denies new medical diagnoses, illnesses, hospitalizations, emergency room visits, and injuries since the previous injection with botulinum neurotoxin. We reviewed the recommended safety guidelines for Botox from any vaccine injection, such as the seasonal flu vaccine, by a minimum of 10-14 days with Latricia Machado. She acknowledged understanding. RESPONSE TO PREVIOUS TREATMENT: N/A - Initial treatment. BOTULINUM NEUROTOXIN INJECTION PROCEDURES: VERIFICATION OF PATIENT IDENTIFICATION AND PROCEDURE Initials Patient Name pag Patient pag Procedure Verified by: pag Prior to the start of the procedure and with procedural staff participation, I verbally confirmed the patient???s identity using two indicators, relevant allergies, that the procedure was appropriate and matched the consent or emergent situation, and that the correct equipment/implants were available. Immediately prior to starting the procedure I conducted the Time Out with the procedural staff and re-confirmed the patient???s name, procedure, and site/side. (The Joint Commission universal protocol was followed.) Yes Sedation (Moderate or Deep): None Above assessments performed by: Mel Buckley RN Safety Intern Mauricio Melgar MD INDICATIONS FOR PROCEDURES: Latricia Machado is a 26 year old patient with chronic migraine headaches. Her baseline symptoms have been recalcitrant to oral medications and conservative therapy. She is here today for reinjection with Botox. GOAL OF PROCEDURE: The goal of this procedure is to decrease pain and enhance functional independence. TOTAL DOSE ADMINISTERED: Dose Administered: 100 units Botox (Botulinum Toxin Type A) 2:1 Dilution Diluent Used: Preservative Free Normal Saline Total Volume of Diluent Used: 2 ml Lot # [id number] Expiration Date: 06/[address] [facility] #: Botox 100u ([id number]) Medication guide was offered to patient and was accepted. CONSENT: The risks, benefits, and treatment options were discussed with Latricia Machado and she agreed to proceed. Written consent was obtained by [facility]. EQUIPMENT USED: Needle-30 gauge SKIN PREPARATION: Skin preparation was performed using an alcohol wipe. GUIDANCE DESCRIPTION: Electro-myographic guidance was necessary throughout the posterior neck portion to accurately identify all areas of spastic muscles while avoiding injection of non-spastic muscles, neighboring nerves and nearby vascular structures. AREA/MUSCLE INJECTED: HEAD & SCALP MUSCLES: 100 units Botox = Total Dose, 2:1 Dilution Right Occipitalis - 12.5 units of Botox at 3 sites (5 units at 2 sites and 2.5 units at 1 site) Left Occipitalis - 12.5 units of Botox at 3 sites (5 units at 2 sites and 2.5 units at 1 site) Right Temporalis - 20 units of Botox at 4 site/s. Left Temporalis - 20 units of Botox at 4 site/s. Right Frontalis - 10 units of Botox at 2 site/s. Left Frontalis - 10 units of Botox at 2 site/s. Right Material Expediter - 5 units of Botox at 1 site/s. Left Material Expediter - 5 units of Botox at 1 site/s. Procerus - 5 units of Botox at 1 site/s. RESPONSE TO PROCEDURE: Latricia Machado tolerated the procedure well and there were no immediate complications. She was allowed to recover for an appropriate period of time and was discharged home in stable condition. FOLLOW UP: Latricia Machado was asked to follow up by phone in 7-14 days with Mel Buckley RN, Safety Intern, to report her response to this series of injections. Based on the patient's previous response tothis therapy, Latricia Machado was rescheduled for the next series of injections in 12 weeks. PLAN (Medication Changes, Therapy Orders, Work or Disability Issues, etc.): Patient will continue tomonitor response to today's injections. documented in this encounter Nursing Notes Bailey Prater CMA - 12/18/2016 8:45 AM CDT Chief Complaint Patient presents with ??? RECHECK UMP RETURN MIGRAINE BOTOX Bailey Prater MA documented in this encounter Plan of Treatment Upcoming Encounters Date Type Specialty Care Team Description 08/19/2022 Office Visit Gastroenterology Mirza Vasquez MD [address] [place] [address] [phone] (Wo rk) documented as of this encounter Procedures Procedure Name Priority Date/Time Associated Diagnosis Comme [facility] CHEMODENERVATE Routine 12/18/2016 9:25 AM Intractable chron ic FACIAL,TRIGERM,NERV CDT migraine without aura MIGRAINE and without status migrainosus documented in this encounter Visit Diagnoses Diagnosis Intractable 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 aur a and without status migrainosus - Primary Chronic migraine without aura, with intr actable migraine, so stated, without mention of status migrainosus documented in this encounter Care Teams Rag Cutting Machine Operator Relationship Specialty Start Date End Date Alfonso Tang PCP - General Family Practice 09/04/13 08/12/21 Dayanara Bee MD MD Pediatrics 12/26/[address] [place] [address] [address] [place], [place] [address] Min Lange MD MD Neurology 03/30/16 Marlo Madsen MD Cardiology 10/27/[address] [place] [id number] Mel Buckley, DIAZ Nurse Coordinator Physical Medicine and 12/02/16 Rehabilitation documented as of this encounter
--- OUTSIDE RECORDS SUMMARY | 2022-06-30 09:49 | XMS_ITS | Encounter Summary ---
:1990 Author Organization [facility] Address [address] [place] [address]. [place] [address] Care Team Providers Name Role Phone Alfonso Tang Primary Care Provider Unavailable Dayanara Bee MD Unavailable Min Lange MD Unavailable Unavailable Marlo Madsen MD Unavailable Mel Buckley RN Unavailable Reason for Visit Auth/Cert Specialty Diagnoses / Procedures Referred By Contact Refer red To Contact Gastroenterology Diagnoses family history of colon cancer, IBS and pre-cancerous polyp, increased constipation [facility] Endoscopy Procedures COLONOSCOPY [address] [place] [address] Phone: Referral ID Status Reason Start Date Expiration Date Visits Requ ested Visits Authorized [id number] 1 1 Encounter Details Date Type Department Care Team Description 12/10/2016 Hospital Encounter [facility] Juno More, Endoscopy MD Chaitanya [address] [facility] [address] [place] [address] 2A [phone] [place] [address] (Wo rk) Social History Tobacco Use Types Packs/Day Years Used Date Smoking Tobacco: Never Smokeless Tobacco: Never Alcohol Use Standard Drinks/Week Comments No 0 (1 standard drink = 0.6 oz pure alcoho l) Sex Assigned at Date Recorded 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 encounter Last Filed Vital Signs Vital Sign Reading Time Taken Comments Blood Pressure 114/86 12/10/2016 9:50 AM CDT Pulse 70 12/10/2016 8:12 AM CDT Temperature 36.7 ??C (98 ??F) 12/10/2016 8:12 AM CDT Respiratory Rate 8 12/10/2016 9:59 AM CDT Oxygen Saturation 98% 12/10/2016 9:59 AM CDT Inhaled Oxygen Concentration - - Weight 96.2 kg (212 lb) 12/10/2016 8:12 AM CDT Height - - Body Mass Index 34.22 11/27/2016 10:12 AM CDT documented in this encounter Discharge Instructions Discharge InstructionsDouglas Maza RN - 12/10/2016 9:45 AM CDT Discharge Instructions after Colonoscopy or Sigmoidoscopy Today you had a _x___ Colonoscopy Activity and Diet You were given medicine for pain. You may be dizzy or sleepy. For 24 hours: ??? Do not drive or use heavy equipment. ??? Do not make important decisions. ??? Do not drink any alcohol. You may return to your normal diet and medicines. Discomfort ??? Air was placed in your colon during the exam in order to see it. Walking helps to pass the air. ??? You may take Tylenol (acetaminophen) for pain unless your doctor has told you not to. Do not take aspirin or ibuprofen (Advil, Motrin, or other anti-inflammatory drugs) for __3___ days. Follow-up __x__ We took small tissue samples or polyps to study. Your doctor will call you with the results within two weeks. When to call: Call right away if you have: ??? Unusual pain in belly or chest pain not relieved with passing air. ??? More than 1 to 2 Tablespoons of bleeding from your rectum. ??? Fever above 100.6?? F (37.5?? C). If you have severe pain, bleeding, or shortness of breath, go to an emergency room. If you have questions, call: Wednesday to Wednesday, 7 a.m. to 4:30 p.m. Endoscopy: [phone] (We may have to call you back) After hours Hospital: [phone] (Ask for the GI fellow radio control crane operator) documented in this encounter Medications at Time of Discharge Medication Sig Dispensed Refills Start Date End Date clonazePAM (KLONOPIN) 0.5 Take 0.5 mg by 0 2015 MG tablet mouth as needed meclizine (ANTIVERT) 25 MG TAKE 1 TABLET BY 0 tablet MOUTH THREE TIMES DAILY ondansetron (ZOFRAN-ODT) 4 DISSOLVE 1 TABLET 0 MG disintegrating tablet (4 MG TOTAL) ON TONGUE EVERY 8 (EIGHT) HOURS NEEDED FOR NAUSEA. order for DMEIndications: Equipment being 1 kit 0 04/03 Dysautonomia (H), Heat ordered: Micro intolerance climate cooling vest Atorvastatin Calcium Take 20 mg by 0 0 10/31/2021 (LIPITOR PO) mouth At Bedtime CITALOPRAM HYDROBROMIDE PO Take 10 mg by 0 10/31/2021 mouth every evening desvenlafaxine succinate Take 100 mg by 0 014 10/31/2021 (PRISTIQ) 100 MG TB24 24 mouth every hr tablet morning fludrocortisone (FLORINEF) Take 1 tablet (0.1 30 tablet 0 1 11/06/2015 03/03/2022 0.1 MG tabletIndications: mg) by mouth daily Autonomic dysfunction No refills, please contact PCP or appt needed linaclotide (LINZESS) 290 Take 1 capsule 30 capsule 11 201510/31/2021 MCG capsuleIndications: (290 mcg) by mouth Irritable bowel syndrome every morning without diarrhea (before breakfast) Please follow up in clinic as scheduled metoclopramide (REGLAN) 5 Take 1 tablet (5 30 tablet 1 04/201710/31/2021 MG tabletIndications: mg) by mouth 2 Non-intractable vomiting times daily as with nausea, unspecified needed vomiting type Multiple Vitamins-Minerals Take 1 tablet by 0 10/31/2021 (WOMENS MULTIVITAMIN PLUS mouth every PO) morning order for DME DREAMSTATION 0 2 5-15 CM/H20 NASAL WISP FABRIC oxyCODONE-acetaminophen Take 1 tablet by 10 tablet 0 201502/01/2017 (PERCOCET) 5-325 MG per mouth every 12 tabletIndications: hours as needed Migraine without aura and for moderate to without status severe pain migrainosus, not intractable, Intractable 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 zonisamide (ZONEGRAN) 50 TAKE 4 CAPSULES BY 120 capsule 8 05/04/2017 MG capsuleIndications: ORAL ROUTE DAILY Migraine without aura and without status migrainosus, not intractable botulinum toxin type A Inject 200 Units 200 Units 4 017 10/31/2021 (BOTOX) 100 UNITS into the muscle injectionIndications: every 3 months Intractable 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 clobetasol (TEMOVATE) 0.05 Apply topically as 0 10/31/2021 % cream needed medroxyPROGESTERone Take 10 mg by 0 (PROVERA) 10 MG tablet mouth every 3 months documented as of this encounter Nursing Notes eT Coronel RN - 12/10/2016 9:10 AM CDT Colonoscopy done under MAC, VS and medications per MONORAIL OPERATOR . Polypectomy x2 sent to path documented in this encounter Plan of Treatment Upcoming Encounters Date Type Specialty Care Team Description 08/19/2022 Office Visit Gastroenterology Mirza Vasquez MD [address] [place] [phone] (Wo rk) documented as of this encounter Procedures Procedure Name Priority Date/Time Associated Diagnosis Comme [facility] SURGICAL PATHOLOGY Routine 12/10/2016 9:37 AM Res ults for this EXAM CDT procedure are i n the results section. COLONOSCOPY, WITH 12/10/2016 9:02 AM family history of POLYPECTOMY AND CDT colon cancer, IBS and BIOPSY pre-cancerous polyp, increased constipation Special Needs What is your current height? 5'6What is your current weight?205 Have you had a procedure in the past that w as difficult to tolerate with conscious sedation? Needs MAC for syncope episodesIn t he past year, have you had any heart related issues that required cardiac stenting or other implantable devices? NoWhat type of implantable device do you ross ve? NoAre you currently taking any blood thinners? No Do you use oxygen on a renetta nuous basis? NoDo you currently use any a lcohol or street drugs? NoDo you have any history of post-traumatic stress syndrome or mental health issues? Dep ression/anxiety COLONOSCOPY Routine 12/10/2016 8:54 AM CDT Resul ts for this procedure are in the results section . documented in this encounter Results Surgical pathology exam (12/10/2016 9:37 AM CDT) Component Value Ref Test Analysis Performed At [facility] Range Method Time Signature Copath Patient Name: DARIN MACHADO Report MR#: [id number] Specimen #: [id number] Collected: 12/10/2016 Received: 12/10/2016 Reported: 12/11/2016 13:53 Ordering Phy(s): CHAITANYA MORE For improved result formatting, select 'View Enhanced Report Format' under Linked Documents section. SPECIMEN(S): Rectosigmoid polyp FINAL DIAGNOSIS: COLON, RECTOSIGMOID POLYPS, POLYPECTOMIES: - Two hyperplastic polyps - Negative for dysplasia and malignancy I have personally reviewed all specimens and or slides, incl uding the listed special stains, and used them with my medical judgeme nt to determine the final diagnosis. Electronically signed out by: Blanka Ferguson M.D., [facility] CLINICAL HISTORY: High risk colon cancer surveillance: Personal history of col onic polyps. Lower gastrointestinal endoscopy findings include two recto -sigmoid colon polyps. GROSS: The specimen is received in formalin with proper patient alesia ntification, labeled rectosigmoid polyps x2. ??The specimen consists of a single whittaker-pink soft tissue fragment that measures 0.7 cm dimension . ??The specimen is entirely submitted in cassette 1. (Dictated by: Suzan Sloan 12/10/2016 11:03 AM) MICROSCOPIC: Microscopic examination is performed. CPT Codes: A: 56511-PY9 TESTING LAB LOCATION: [facility], [address] ?? [address] COLLECTION SITE: Client: [facility] Location: [facility]EL[facility] ([place]) Specimen (Source) Anatomical Collection Method Collection Time Re ceived Time Location / / Volume Laterality Polyp TOPOGRAPHY UNKNOWN 12/10/2016 9:37 AM (morphologic / Unknown CDT abnormality) Chaitanya [facility] Performing Organization Address City/State/ZIP Code Phon e Billie [facility] COLONOSCOPY (12/10/2016 8:54 AM CDT) Component Value Ref Test Analysis Performed At [facility] Range Method Time Signature COLONOSCOPY [facility] RADIOLOGY [address] [place] [address] [phone] ? End oscopy Department RESULTS Patient Name: Darin Machado ? Procedure Date: 12/10/2016 8:54 AM ? Accou nt Number: [id number] Date of : 1990 ?Admit Type: Out patient Age: 26 ? Room: [facility]. Gender: Female ?Note Statu s: Finalized Attending MD: Chaitanya Fraire MD ? Total Sedation Ti me: Procedure: ? Colonoscopy Indications: ? Hig h risk colon cancer surveillance: Personal history of ? colonic polyps; father with h x CRC, age 51 Providers: ? Chaitanya Fraire MD, Te gonzalez RN Referring MD: ?Abby Vasquez MD Medicines: ? Mo nitored Anesthesia Care, See the Anesthesia note for ? documentation of the ad ministered medications Complications: ? No immediate complications. Procedure: ? Pre-Anesthesia Assessment: ? - Prior to the procedure, a History and Physical was ? performed, and patient medications and allergies were ? reviewed. The patient is competent. The risks and ? benefits of the procedure and the sedation options and ? risks were discussed with the patient. All questions ? were answered and informed consent was obtained. Patient ? identification and proposed procedure were verified by ? the physician, the nurse and the anesthesiologist in the ? pre-procedure area in the procedure room. Mental Status ? Examination: alert and oriented. Airway Examination: ? normal oropharyng eal airway and neck mobility. ? Respiratory Examination: clear to auscultation. CV ? Examination: normal. Prophylactic Antibiotics: The ? patient does not require prophylactic antibiotics. Prior ? Anticoagulants: The patient has taken no previous ? anticoagu lant or antiplatelet agents. ASA Grade ? Assessment: II - A patient with mild systemic disease. ? After reviewing the risks and benefits, the patient was ? deemed in satisfactory condition to undergo the ? procedure. The anesthesia plan was to use monitored ? anesthesia care (MAC). Immedi ately prior to ? administration of medications, the patient was ? re-assessed for adequacy to receive sedatives. The heart ? rate, respiratory rate, oxygen saturations, blood ? pressure, adequacy of pulmonary ventilation, and ? response to care were monitored throughout the ? procedure. The physical status of the patient was ? re-assessed after the procedu re. ? After obtaining informed consent, the colonoscope was ? passed under direct vision. Throughout the procedure, ? the patie nt's blood pressure, pulse, and oxygen ? saturations were monitored continuously. The Colonoscope ? was introduced through the anus and advanced to the ? cecum, identified by appendiceal orifice and ileocecal ? valve. The colonoscopy was performed without difficulty. ? The patient tolerated the procedure well. The quality of ? the bowel preparation was antonio quate. ? Findings: ? Two semi-sessile polyps were found in the recto-sigmo id colon. The ? polyps were 1 to 2 mm in size. These polyps wer e removed with a jumbo ? cold forceps. Resection and retrieval were complete. ? The exam was otherwise without abnormality on d irect and retroflexion ? views. ? Impression: ?- Two 1 to 2 mm polyps at th e recto-sigmoid colon. ? Resected and retrieved. ? - The examination was otherwise normal on direct and ? retroflexion views. Recommendation: ?- Discharge patient to home. ? - Return to previous diet. ? - Await pathology results. ? Chaitanya Fraire MD 12/10/2016 10:34 AM I was physically present for the entire viewing portion of t he exam. Signature of teaching physician [id number] Fraire MD Number of Addenda: 0 Note Initiated On: 12/10/2016 8:54 AM Scope In: 12:00:00 AM Scope Out: 12:00:00 AM Specimen (Source) Anatomical Collection Method Collection Time Re ceived Time Location / / Volume Laterality 12/10/2016 8:54 AM CDT Abby Vasquez MD PROCEDURES Performing Organization Address City/State/ZIP Code Phon e Number RADIOLOGY RESULTS documented in this encounter Visit Diagnoses Not on filedocumented in this encounter Administered Medications Inactive Administered Medications - up to 3 most recent administrations Medication Order MAR Action Action Date Dose Rate Site simethicone (MYLICON) suspension Given 12/10/2016 9:06 AM CDT 2 mLs PRN, Starting on Aleshia 12/10/16 at 0906, Intra-procedure documented in this encounter Active and Recently Administered Medications Times are shown in CDT. PRN Medication Order 12/08/2016 12/09/2016 12/10/2016 simethicone (MYLICON) suspension 0906 (Given - Provider: Te Coronel, DIAZ) PRN, Starting on Aleshia 12/10/16 at 0906, Intra-procedure documented in this encounter Care Teams Physical Design Engineer Relationship Specialty Start Date End Date Alfonso Tang PCP - General Family Practice 09/04/13 08/12/21 Dayanara Bee MD MD Pediatrics 12/26/[address] [place] [address] [address] [place] [address] Min Lange MD MD Neurology 03/30/16 Marlo Madsen MD Cardiology 10/27/[address] [place] [address] Mel Buckley, RN Nurse Coordinator Physical Medicine and 12/02/16 Rehabilitation documented as of this encounter
--- OUTSIDE RECORDS SUMMARY | 2022-06-30 09:49 | XMS_ITS | Encounter Summary ---
:1990 Author Organization [place] Address [address] [place] [id number] Care Team Providers Name Role Phone Alfonso Tang Primary Care Provider Unavailable Dayanara Bee MD Unavailable Min Lange MD Unavailable Unavailable Marlo Madsen MD Unavailable Mel Buckley RN Unavailable Encounter Details Date Type Department Care Team Description 12/28/2016 Records - [facility] CONVERSION Provider, Zo campbell Social History Tobacco Use Types Packs/Day Years Used Date Smoking Tobacco: Never Smokeless Tobacco: Never Alcohol Use Standard Drinks/Week Comments No 0 (1 standard drink = 0.6 oz pure alcoho l) Sex 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 at Date 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 Plan of Treatment Upcoming Encounters Date Type Specialty Care Team Description 08/19/2022 Office Visit Gastroenterology Mirza Vasquez MD [address] [place] [address] (Wo rk) documented as of this encounter Visit Diagnoses Not on filedocumented in this encounter Care Teams Flaker Operator Relationship Specialty Start Date End Date Alfonso Tang PCP - General Family Practice 09/04/13 08/12/21 Dayanara Bee MD MD Pediatrics 12/26/[address] [place] [address] [address] [place] [address] Min Lange MD MD Neurology 03/30/16 Marlo Madsen MD Cardiology 10/27/[address] [place] [address] Mel Buckley, DIAZ Nurse Coordinator Physical Medicine and 12/02/16 Rehabilitation documented as of this encounter
--- OUTSIDE RECORDS SUMMARY | 2022-06-30 09:49 | XMS_ITS | Encounter Summary ---
:1990 Author Organization [place] Address [address] [place] [address]. [place] [address] Care Team Providers Name Role Phone Alfonso Tang Primary Care Provider Unavailable Dayanara Bee MD Unavailable Min Lange MD Unavailable Unavailable Marlo Madsen MD Unavailable Mel Buckley RN Unavailable Encounter Details Date Type Department Care Team Description 01/18/2017 Office Visit Health Gastroenterology Latricia Bryan depressive disorder, recurrent, moderate (H) (Primary Dx); and IBD Clinic L, PhD WALDEMAR (generalized anxiety disorder) [address] [place] [phone] [place], [place] [phone] [address] Social History Tobacco Use Types Packs/Day Years Used Date Smoking Tobacco: Never Smokeless Tobacco: Never Alcohol Use Standard Drinks/Week Comments No 0 (1 standard drink = 0.6 oz pure alcoho l) Sex 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 Health Psychology Clinic Department of Medicine Florencia Powell, PhD, LP Clinics and Surgery Center [facility] Rohit Eng, PhD, LP 3rd Floor [place] Mail Code 456 Pardeep Bruno, PhD, ABPP, LP 906 [facility], 420 [facility], Latricia Bryan, PhD, LP [place] [id number] [place] [address] Verena Cervantes, PhD, LP Health Psychology Follow-Up Note SUBJECTIVE: Latricia Machado is a 26-year-old female with a medical history significant for dysautonomia, frequent migraines, chronic abdominal pain, nausea and vomiting, and chronic constipation. She was seen for individual therapy for coping with chronic illness. Reported increase acceptance of chronic illness using uninvited guest metaphor; she described 2 examples on how acceptance has allowed her engage in activities with family, albeit in modified ways. Patient reported she is planning to move to [facility] live with her fiance at the end of January. We plan to meet one more time in 2 weeks, then she plans to transfer care to the [facility]. Discussed ways to cope with this transition asthe focus of this session, including ways to communicate health needs proactively to her fiance, maintain close connection with her mother despite distance, and how to disclose information about her health to new friends and acquaintances. 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 Discussed connection between thoughts, feelings, behaviors, and bodily sensations when she avoids communication or activitieswhen feeling ill. Encouraged non-judgmental exploration of internal experiences and discussed incorporation of mindfulness meditation as a strategy to facilitate this. Encouraged acceptance of health st atus while maintaining engagement in valued activities. OBJECTIVE: The patient was alert and oriented to person, place, time and situation. Grooming was within normal limits. She maintained good eye contact. Psychomotor activity was unremarkable. Mood appeared mildly dysphoric and affect was appropriate to session content. Speech was clear, coherent and of normal rate, rhythm and volume. Thoughts were logical and organized. Insight and judgment were good. She appears motivated to participate in therapy. She denied current suicidal or assaultive ideation, plan or intent. ? ASSESSMENT: Latricia Machado is a 26-year-old female with chronic medical illness who recently took aleave of absence from work due to worsening in her health state. She presents with moderate depression and mild anxiety. It appears she has numerous effective coping strategies but reports interest in gaining support in processing the change in her health status. ? DIAGNOSES: Major depressive disorder, recurrent, moderate; generalized anxiety disorder. PLAN: RTC every 2 weeks for individual therapy focused on coping with health changes. Time in: 4:12 Time out: 5:07 Extended session due to complexity of case and length of interval. Latricia Bryan, PhD, Clinical Health Psychologist Tx plan completed: 01/04/17 Tx plan due: 01/04/18 documented in this encounter Plan of Treatment Upcoming Encounters Date Type Specialty Care Team Description 08/19/2022 Office Visit Gastroenterology Mirza Vasquez MD [address] [place] [id number] (Wo rk) documented as of this encounter Visit Diagnoses Diagnosis Major depressive disorder, recurrent, mo derate (H) - Primary Major depressive disorder, recurrent epi sode, moderate WALDEMAR (generalized anxiety disorder) Generalized anxiety disorder documented in this encounter Care Teams Traveling Plant Operator Relationship Specialty Start Date End Date Alfonso Tang PCP - General Family Practice 09/04/13 08/12/21 Dayanara Bee MD MD Pediatrics 12/26/[address] [place] [address] [address] [place], [place] [address] Min Lange MD MD Neurology 03/30/16 Marlo Madsen MD Cardiology 10/27/16 [place] [address] [facility] [address] [place], [place] [phone] Mel Buckley, RN Nurse Coordinator Physical Medicine and 12/02/16 Rehabilitation documented as of this encounter
--- OUTSIDE RECORDS SUMMARY | 2022-06-30 09:49 | XMS_ITS | Encounter Summary ---
:1990 Author Organization [place] Address [address] [place] [address]. [place] [address] Care Team Providers Name Role Phone Alfonso Tang Primary Care Provider Unavailable Dayanara Bee MD Unavailable Min Lange MD Unavailable Unavailable Marlo Madsen MD Unavailable Mel Buckley RN Unavailable Reason for Visit Reason Onset Date Comments Prior Auth - Medication 12/08/2016 Linzess 290g - approved Encounter Details Date Type Department Care Team Description 12/08/2016 Telephone [facility] Gastroenterology Joan Mckeon ior Auth - and IBD Clinic DIAZ Handuniversity tutor (Linzess [address] [facility] 290mcg - approved) [address] [place], [place] [phone] Social History Tobacco Use Types Packs/Day Years Used Date Smoking Tobacco: Never Smokeless Tobacco: Never Alcohol Use Standard Drinks/Week Comments No 0 (1 standard drink = 0.6 oz pure alcoho l) Sex Assigned at Date Recorded 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 Prior Authorization Approval Authorization Effective Date: 12/17/2016 Authorization Expiration Date: 09/12/1999 Medication: Linzess 290mcg - approved Approved Dose/Quantity: Reference #: Insurance Company: [employer] - Expected CoPay: $25.00 CoPay Card Available: Foundation Assistance Needed: Which Pharmacy is filling the prescription (Not needed for infusion/clinic administered): [id number] - [place], [place] - [address] [facility] Pharmacy Notified: Yes Patient Notified: Yes Telephone Encounter - Jodie Macias - 12/15/2016 2:31 PM CDT [facility] Prior Authorization Team [place] Initiation Medication: Linzess 290mcg Insurance Company: [employer] - Pharmacy Filling the Rx: [id number] - [place], [place] - [address] [facility] Filling Pharmacy Filling Pharmacy Fax: Start Date: 12/15/2016 Manually faxed to [employer] at [phone]. Telephone Encounter - Peace Mckeon RN - 12/08/2016 9:50 AM CDT Prior Authorization Specialty Medication Request Medication/Dose: Linzess 290mcg Take 1 capsule (290 mcg) by mouth every morning (before breakfast Diagnosis and ICD: Constipation New/Renewal/Insurance Change PA: Renewal Important Lab Values: Previously Tried and Failed Therapies: Rationale: Would you like to include any research articles? If yes please include the hyperlink(s) below or fax @ [phone]. (Include Name and MRN) If you received a fax notification from an outside Pharmacy; Pharmacy Name:[facility] [place] [facility] #:[phone] Pharmacy documented in this encounter Plan of Treatment Upcoming Encounters Date Type Specialty Care Team Description 08/19/2022 Office Visit Gastroenterology Mirza Vasquez MD [address] [place] [address] (Wo rk) documented as of this encounter Visit Diagnoses Not on filedocumented in this encounter Care Teams Supply Chain Development Manager Relationship Specialty Start Date End Date Alfonso Tang PCP - General Family Practice 09/04/13 08/12/21 Dayanara Bee MD MD Pediatrics 12/26/[address] [place] [address] [address] [place] [address] Min Lange MD MD Neurology 03/30/16 Marlo Madsen MD Cardiology 10/27/[address] [place] [address] Mel Buckley, RN Nurse Coordinator Physical Medicine and 12/02/16 Rehabilitation documented as of this encounter
--- OUTSIDE RECORDS SUMMARY | 2022-06-30 09:49 | XMS_ITS | Encounter Summary ---
:1990 Author Organization [place] Address [address] [place] [address]. [place] [address] Care Team Providers Name Role Phone Alfonso Tang Primary Care Provider Unavailable Dayanara Bee MD Unavailable Min Lange MD Unavailable Unavailable Marlo Madsen MD Unavailable Reason for Visit Reason Comments Consult [facility] NEW - Migraine Botox Encounter Details Date Type Department Care Team Description 11/27/2016 [facility] Mauricio Melgar chronic Medicine and MD Laura migraine withou t aura Rehabilitation and without status [address] [place] [address] migrainosus (Primary 3rd Floor Dx) [place] [address] Social History Tobacco Use Types Packs/Day Years Used Date Smoking Tobacco: Never Smokeless Tobacco: Never Alcohol Use Standard Drinks/Week Comments No 0 (1 standard drink = 0.6 oz pure alcoho l) Sex Assigned at Date Recorded 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 Lange, [facility] Neurology CHIEF COMPLAINT: Chronic migraine headache HEADACHE PATTERN, HISTORY & PHYSICAL: Headache Onset History: Latricia Machado has a history of headaches over the last 14 years. She is seeking evaluation now because her medications are not helping any longer. Previous evaluation/s include: consult with neurology, ENT consult and MRA of brain in 2015 at [facility], and MRI of brainin 2011 at [facility]. Headache Family History: history of migraine headaches in mother, sister(s) and maternal grandmother Current Headache Pattern: Frequency (How many headache days per month?): 8 migraine days, with another 10 headache days, total of 18 days per month. Duration of Headache: Her headaches are 4-6 hours, and the migraines are 3-4 days. Aura: visual scintillations Associated Symptoms: nausea, vomiting, light sensitivity, sound sensitivity and numbness, sensory changes or weakness--over all, with fainting Migraine Complications: No new stroke-like symptoms, loss of vision or speech, numbness or weakness Description of Headache Pain & Location: throbbing pain, squeezing pain, global, unilateral in the both temporal area temples, right side >left side, left side >right side, right eye and left eye Level of Pain during usual or 'typical' headache: 7/10 Level of Pain during the worst headache: 10/10 Do headaches interfere with or prevent usual activities or diminish patient's productivity at home or work? Yes - She can't function at all with her migraines, missing about 3 days per month. She has to be at home in bed, so she also misses out on any family or social activities. Non-Pharmacologic Treatments Tried: (such as food trigger elimination diets, biofeedback, relaxation, physical therapy, chiropractic, etc.) Trial of ice or heat to neck, Physical therapy and vocational childcare teacher and massage therapy. Medications Tried: Rescue Meds: APAP/ASA/Caf Solu-Cortef (Hydrocortisone) Injection Toradol (Ketorolac) IM Demerol (Meperidine) Injection IV Reglan IV DHE NSAIDs: Ibuprofen - Advil Naproxen Sodium - Aleve Triptan's: Relpax (Eletriptan) PO Maxalt / Maxalt CANDLE MOLDER HAND (Rizatriptan) PO Imitrex (Sumatriptan) PO, Nasal [place], SQ Zomig / Zomig ZMT (Zolmitriptan) PO, Nasal [place], SQ Adjunctive Therapy: Compazine (Prochlorperazine) Zofran Prophylactic Drug Treatment: Antiepileptics - Depakote, Depakote - ER (Divalproex Sodium) valproate soduim Neurontin (Gabapentin) Topamax (Topiramate) Beta - Blockers - Lopressor (Metoprolol) Muscle Relaxants - Zanaflex (Tizanidine) Tricyclics - Elavil (Amitriptyline) Aventyl, Pamelor (Nortriptyline) Emergency Room utilization to treat headache symptoms: (If so, how often and when was the last time used): Yes - 6 times per year, she only goes when she is vomiting uncontrollably. Her last visit was 2 weeks ago. Acute Migraine Plan in Place?: Yes , If yes describe: She goes to a quiet, dark room, with sunglasses on, after taking Zofran, Ibuprofen, a triptan (depending on which one she was prescribed), sometimes using Percoset, and always using ice packs. Are Headaches worsening over time? Yes - they have increased in frequency and duration, now being very drug resistant to give her any relief. What makes headaches better? dark room, ice, NSAIDs, prescription medication: percoset and quiet room What makes headaches worse or triggers headaches? Environment: weather pattern changes and light, especially fluorescent lights Food: tyramine (aged cheese, etc.), MSG and nuts Stress: stress Past Medical and Surgical History: Past Medical History: Past Medical History Diagnosis Date ??? Anesthesia complication sensitivity ??? Autonomic dysfunction ??? Depression ??? Generalized anxiety disorder ??? HLD (hyperlipidemia) ??? Migraines ??? Mixed sleep apnea Central and obstructive according to 05/05/16 PSG ??? Obesity ??? PCOS (polycystic ovarian syndrome) ??? Syncope Past Surgical History: Past Surgical History Procedure Laterality Date ??? C exploratory of abdomen ??? Colonoscopy with co2 insufflation N/A 12/13/2014 Procedure: COLONOSCOPY WITH CO2 INSUFFLATION; Surgeon: Adelso Dawson MD; Location: [facility] OR Social History: Social History Social History ??? Marital status: Single Spouse name: N/A ??? Number of children: N/A ??? Years of education: N/A Occupational History ??? Not on file. Social History Main Topics ??? Smoking status: Never Smoker ??? Smokeless tobacco: Never Used ??? Alcohol use No ??? Drug use: No ??? Sexual activity: Yes Other Topics Concern ??? Not on file Social History Narrative Family History: Family History Problem Relation Age of Onset ??? Colon Polyps Other grandfather ??? Cancer - colorectal Father 50 ??? CANCER Other breast ??? Crohn Disease No family hx of ??? Ulcerative Colitis No family hx of Immunizations: Immunization History Administered Date(s) Administered ? ? DTAP (<7y) 1991, 1991, 1991, 01/31/1993, 03/31/1996, 11/16/2003 ??? Hepatitis A Vac Ped/Adol-2 Dose 11/01/2006, 03/24/2013 ??? Hepatitis B 11/16/2003, 12/18/2003, 05/15/2004 ??? Human Papilloma Virus 09/19/2010, 02/02/2011 ??? IPV 1991, 1991, 1991, 03/31/1996 ??? Influenza (IIV3) 05/23/2013 ??? MMR 06/14/1992, 03/31/1996 ??? Pedvax-hib 1991, 1991, 06/14/1992 ??? Tdap (Adacel,Boostrix) 03/24/2013 ??? Varicella 08/03/1995, 03/24/2013 Allergies: Allergies Allergen Reactions ??? Augmentin GI Disturbance Medications: Current Outpatient Prescriptions Medication ??? clonazePAM (KLONOPIN) 0.5 MG tablet ??? medroxyPROGESTERone (PROVERA) 10 MG tablet ??? Atorvastatin Calcium (LIPITOR PO) ??? metoclopramide (REGLAN) 5 MG tablet ??? fludrocortisone (FLORINEF) 0.1 MG tablet ??? clobetasol (TEMOVATE) 0.05 % cream ??? CITALOPRAM HYDROBROMIDE PO ??? zonisamide (ZONEGRAN) 50 MG capsule ??? oxyCODONE-acetaminophen (PERCOCET) 5-325 MG per tablet ??? order for DME ??? meclizine (ANTIVERT) 25 MG tablet ??? ondansetron (ZOFRAN-ODT) 4 MG disintegrating tablet ??? desvenlafaxine succinate (PRISTIQ) 100 MG TB24 24 hr tablet ??? linaclotide (LINZESS) 290 MCG capsule ??? order for DME ??? Multiple Vitamins-Minerals (WOMENS MULTIVITAMIN PLUS PO) No current facility-administered medications for this visit. Review of Systems: Review Of Systems Skin: positive for eczema Eyes: positive for, eye pain, glasses Ears/Nose/Throat: positive for vertigo, and bruxism Respiratory: No shortness of breath, dyspnea on exertion, cough, or hemoptysis Cardiovascular: positive for syncope or near-syncope Gastrointestinal: positive for nausea, vomiting, abdominal pain, constipation and IBS Genitourinary: positive for polycystic ovarian Musculoskeletal: positive for knee problems Neurologic: positive for migraine headaches, headaches and syncope Psychiatric: positive for sleep disturbance (MEDARDO), anxiety and depression stable Hematologic/Lymphatic/Immunologic: negative Endocrine: negative, positive for cold intolerance and heat intolerance VITALS: BP 119/86 (BP Location: Right arm, Patient Position: Chair, Cuff Size: Adult Large) Pulse 85Ht 1.676 m (5' 6) Wt 98 kg (216 lb) SpO2 96% BMI 34.86 kg/m2 IMAGING: MRA in 2015 at the [place]: IMPRESSION Impression: 1. No evidence of intracranial aneurysm or other abnormality on head MR angiography. 2. No evidence of intracranial hemorrhage or mass. ?? REJI CHUA MD ASSESSMENT: Latricia Machado is a 26 year old female with a history of Chronic migraine headaches and headaches that are debilitating in her life since she was 13 years old. She has tried a number of pharmacologic and non-pharmacologic treatments to manage her chronic migraine headaches with limited success. Most of them do not give her any relief and she is now using Percoset for some pain relief, which she would like to avoid. At this time, I believe She is a good candidate for trial of Botox for management of chronic migraine headache. PLAN: 1. Submit request for prior authorization for Botox for management of chronic migraine headaches from insurer. 2. Schedule for injection procedure when authorization has been determined. documented in this encounter Nursing Notes Bailey Prater CMA - 11/27/2016 9:30 AM CDT documented in this encounter Plan of Treatment Upcoming Encounters Date Type Specialty Care Team Description 08/19/2022 Office Visit Gastroenterology Mirza Vasquez MD [address] [place] [phone] (Wo rk) documented as of this encounter Visit Diagnoses Diagnosis Intractable 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 aur a and without status migrainosus - Primary Chronic migraine without aura, with intr actable migraine, so stated, without mention of status migrainosus documented in this encounter Care Teams Tree Inspector Relationship Specialty Start Date End Date Alfonso Tang PCP - General Family Practice 09/04/13 08/12/21 Dayanara Bee MD MD Pediatrics 12/26/14 [address] [facility] [address] [place], [place] [phone] Min Lange MD MD Neurology 03/30/16 Marlo Madsen MD MD Cardiology 10/27/16 [address] [facility] [address] [place], [place] [phone] documented as of this encounter
--- OUTSIDE RECORDS SUMMARY | 2022-06-30 09:49 | XMS_ITS | Encounter Summary ---
:1990 Author Organization [facility] Address [address] [place] [id number] Care Team Providers Name Role Phone Alfonso Tang Primary Care Provider Unavailable Dayanara Bee MD Unavailable Min Lange MD Unavailable Unavailable Marlo Madsen MD Unavailable Mel Buckley RN Unavailable Reason for Visit Auth/Cert Specialty Diagnoses / Procedures Referred By Contact Refer red To Contact Gastroenterology Diagnoses family history of colon cancer, IBS and pre-cancerous polyp, increased constipation [facility] Endoscopy Procedures COLONOSCOPY [address] [place] [address] Phone: Referral ID Status Reason Start Date Expiration Date Visits Requ ested Visits Authorized [id number] 1 1 Encounter Details Date Type Department Care Team Description 12/10/2016 Anesthesia Event [facility] Cece Castaneda MD [address] [facility] [address] [place], [place] [address] Endoscopy Felicitas Coleman APRN HOSE COUPLING JOINER [address] [facility] [address] [place] [address] [address] [place] [address] Anesthesia Record Procedure Summary Procedure Name Responsible Anesthesia Start Anesthesia Stop Anesthesiologist Time Time COLONOSCOPY, WITH Jeovany Castaneda MD 12/10/16 0900 12/10/16 0943 POLYPECTOMY AND BIOPSY (Anus) Events Date Time Event Comment 12/10/2016 0817 0900 An Start 0901 An Start Data 0908 AN INCISION 0915 Present 0938 an stop data 0943 An Stop Electronically s igned by Felicitas Lorenzo Jared on December 10, 2016 9:43 AM Name Total midazolam 1mg/mL 2 mg lidocaine 2% 60 mg propofol (DIPRIVAN) injection 10 mg/mL vial 80 mg propofol (DIPRIVAN) injection 10 mg/mL vial 249.6 mg ondansetron 2mg/mL 4 mg No abx ordered pre-op 1 each LR 300 mL Agents Name NO HELIOX O2 N2O Air Exp Sevoflurane Exp Isoflurane Exp Desflurane Exp N2O O2 Delivery Device Ins Sevoflurane Ins Isoflurane Ins Desflurane O2 Auxiliary Blood No blood administrations on file. 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 Anesthesia Type: MAC Note: Anesthesia Post Evaluation Patient location during evaluation: PACU Patient participation: Able to fully participate in evaluation Level of consciousness: awake Pain management: adequate Airway patency: patent Cardiovascular status: acceptable Respiratory status: acceptable Hydration status: acceptable PONV: none Anesthetic complications: None Last vitals: Vitals: 12/10/16 0957 12/10/16 0958 12/10/16 0959 BP: Pulse: Resp: 18 (!) 0 8 Temp: SpO2: 97% 100% 98% Electronically Signed By: Jeovany Castaneda MD December 10, 2016 10:35 AM Anesthesia Preprocedure Evaluation - Jeovany Castaneda MD - 11/24/2016 1:48 PM CDT Anesthesia Evaluation . Pt has had prior anesthetic. Type: General and MAC History of anesthetic complications ROS/MED HX ENT/Pulmonary: Comment: Central and obstructive sleep apnea (+)sleep apnea, uses CPAP , . Other pulmonary disease . Neurologic: Comment: Last migraine was 11/23 (has them on a weekly basis.) Is on a prophylactic regimen, will be seeing another Neurologist about Botox therapy. (+)migraines, other neuro Autonomic dysfunction (dysautonomia), typically manifested as dizziness, loss of consciousness Cardiovascular: (+) Dyslipidemia, ----. : . . TURCIOS, fainting (syncope). :. Irregular Heartbeat/Palpitations, . (-) orthopnea/PND METS/Exercise Tolerance: Comment: Activity is limited due to symptoms of dysautonomia 3 - Able to walk 1-2 blocks without stopping Hematologic: - neg hematologic ROS Musculoskeletal: - neg musculoskeletal ROS GI/Hepatic: Comment: Nausea/vomiting Constipation (+) Other GI/Hepatic Chronic diffuse abdominal pain; Irritable bowel syndrome (-) GERD Renal/Genitourinary: - ROS Renal section negative Endo: (+) Obesity, Other Endocrine Disorder Polycystic ovarian syndrome. Psychiatric: (+) psychiatric history anxiety and depression Infectious Disease: - neg infectious disease ROS Malignancy: - no malignancy Other: (+) H/O Chronic Pain,H/O chronic opiod use , PAC Discussion and Assessment ASA Classification: 2 Case is suitable for: [place] Anesthetic techniques and relevant risks discussed: MAC with GA as backup Invasive monitoring and risk discussed: No Types: Possibility and Risk of blood transfusion discussed: No NPO instructions given: Additional anesthetic preparation and risks discussed: Needs early admission to pre-op area: Other: PAC Resident/DIRECT SALES PROFESSIONAL Anesthesia Assessment: Latricia Machado is a 26 year old female scheduled to undergo Colonoscopy on 12/10/[address] Juno More. She has the following specific operative considerations: 1. History of waking during anesthesia: Please see Dr. Subramanian's recommendations. 2. History of dysautonomia, manifested as dizziness and syncopal-episodes: Recommend that the patient be monitored closely throughout the amy-oprocedural period. Recommend that the patient be assistedduring transfers and with repositioning, and the siderails be up when the patient is on a cart, in order to prevent injury. 3. Diagnosis of obstructive sleep apnea: Recommend careful positioning to prevent airway compromise and close monitoring of the patient's respiratory status. 4. Obesity: Recommend careful positioning to prevent airway/ventilatory compromise, or tissue injury. 5. Will order a BMP for the AM of the procedure. Revised Cardiac Risk Index: 0.4% risk of major adverse cardiac event. Anesthesia considerations: Refer to PAC assessment in the anesthesia records. VTE risk: 0.26% MEDARDO risk: Low PONV risk score= 3. (If > 2, anti-emetic intervention is recommended.) Reviewed and Signed by PAC Mid-Level Provider/Resident Mid-Level Provider/Resident: Florencia Gates CNP Date: 11/24/16 Time: 1550 Attending Anesthesiologist Anesthesia Assessment: 26 year old for colonoscopy. Chart reviewed, patient seen and evaluated; agree with above assessment. Patient has autonomic dysreflexia that is almost POTs - with episodes, BP typically is veyr low 70s systolic) and HR high (120) but just not quite enough to meet the stated definition. Syncope has been extensively worked up, no other reason for syncope. Patient is appropriate for the planned procedure without further workup or medical management change. The final anesthesia plan will be determined by the physician anesthesiologist caring for the patient on the day of surgery. Reviewed and Signed by PAC Anesthesiologist Anesthesiologist: NILAY Date: 11/24/2016 Time: Pass/Fail: Pass Disposition: PAC Pharmacist Assessment: Pharmacist: Date: Time: Anesthesia Plan History & Physical Review History and physical reviewed and following examination; no interval change. ASA Status: 3 . NPO Status: > 6 hours Plan for MAC with Intravenous induction. Maintenance will be TIVA. Reason for MAC: Difficulty with conscious sedation (QS) Postoperative Care Consents I have examined the patient and reviewed the record with the above resident or COMMUNICATIONS OPERATOR and agree with above assessment and recommendations. Jeovany Castaneda M.D. Staff Anesthesiologist December 10, 2016, 8:25 AM . documented in this encounter Miscellaneous Notes Anesthesia Care Transfer Note - Felicitas Coleman APRN CRNA - 12/10/2016 9:42 AM CDT Patient: Latricia Machado Procedure(s): - Wound Class: II-Clean Contaminated Diagnosis: family history of colon cancer, IBS and pre-cancerous polyp, increased constipation Diagnosis Additional Information: No value filed. Anesthesia Type: MAC Note: Airway :Room Air Patient transferred to:Phase II Comments: Anesthesia Care Transfer Note Patient: Latricia Machado Transferred to: Endo recovery Patient vital signs: stable Airway: none Spontaneous breathing. Arouses to voice. Monitored. Report to RN. Vitals: (Last set prior to Anesthesia Care Transfer) CARYL VITALS 12/10/2016 0908 - 12/10/2016 0942 12/10/2016 Pulse: 67 Ht Rate: 68 SpO2: 99 % Resp Rate (set): 10 Electronically Signed By: Felicitas Coleman APRN CRNA December 10, 2016 9:42 AM documented in this encounter Plan of Treatment Upcoming Encounters Date Type Specialty Care Team Description 08/19/2022 Office Visit Gastroenterology Mirza Vasquez MD [address] [place] [phone] (Wo rk) documented as of this encounter Visit Diagnoses Not on filedocumented in this encounter Administered Medications Inactive Administered Medications - up to 3 most recent administrations Medication Order MAR Action Action Date Dose Rate Site lactated ringers infusion New Bag 12/10/2016 9:00 AM CDT Intravenous, CONTINUOUS PRN, Anesthesia Intra-op, Starting on Aleshia 12/10/16 at 0900, Until Aleshia 12/10/16 at 0943 lidocaine injection 2% (MDV) Given 12/10/2016 9:02 AM CDT 60 mg Intravenous, PRN, Starting on Aleshia 12/10/16 at 0902, Anesthesia Intra-op midazolam (VERSED) injection Given 12/10/2016 9:00 AM CDT 2 mg Intravenous, PRN, anxiety, Starting on Aleshia 12/10/16 at 0900, Anesthesia Intra-op No abx ordered pre-op Given 12/10/2016 9:00 AM CDT 1 each PRN, Starting on Aleshia 12/10/16 at 0900, Until Aleshia 12/10/16 at 0943, Anesthesia Intra-op ondansetron (ZOFRAN) injection Given 12/10/2016 9:10 AM CDT 4 mg Intravenous, PRN, nausea, vomiting, Administer over 2-5 Minutes, Starting on Aleshia 12/10/16 at 0910, Anesthesia Intra-op propofol (DIPRIVAN) injection 10 mg/mL v ial Given 12/10/2016 9:04 AM CDT 30 mg Intravenous, PRN, Starting on Aleshia 12/10/16 at 0903, Anesthesia Intra-op Given 12/10/2016 9:03 AM CDT 50 mg propofol (DIPRIVAN) Rate/Dose Change 12/10/2016 9:22 80 mcg/kg/min 46 .1 mL/hr injection 10 mg/mL vial AM CDT Intravenous, CONTINUOUS PRN, Starting on Aleshia 12/10/16 at 0904, Anesthesia Intra-op New Bag 12/10/2016 9:04 AM CDT 100 mcg/kg/min 57.6 mL/hr documented in this encounter Care Teams Machine Scallop Cutter Relationship Specialty Start Date End Date Alfonso Tang PCP - General Family Practice 09/04/13 08/12/21 Dayanara Bee MD MD Pediatrics 12/26/14 [address] [facility] [address] [place] [address] Min Lange MD MD Neurology 03/30/16 Marlo Madsen MD Cardiology 10/27/16 [address] [facility] [address] [place] [address] Mel Buckley, DIAZ Nurse Coordinator Physical Medicine and 12/02/16 Rehabilitation documented as of this encounter
--- OUTSIDE RECORDS SUMMARY | 2022-06-30 09:49 | XMS_ITS | Encounter Summary ---
:1990 Author Organization [facility] Address [address] [place] [address] Care Team Providers Name Role Phone Alfonso Tang Primary Care Provider Unavailable Dayanara Bee MD Unavailable Min Lange MD Unavailable Unavailable Marlo Madsen MD Unavailable Mel Buckley RN Unavailable Reason for Visit Reason Comments Forms Encounter Details Date Type Department Care Team Description 11/24/2016 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 documented as of this encounter Plan of Treatment Upcoming Encounters Date Type Specialty Care Team Description 08/19/2022 Office Visit Gastroenterology Mirza Vasquez MD [address] [place] [address] (Wo rk) documented as of this encounter Visit Diagnoses Not on filedocumented in this encounter Care Teams Security Software Engineer Relationship Specialty Start Date End Date Alfonso Tang PCP - General Family Practice 09/04/13 08/12/21 Dayanara Bee MD MD Pediatrics 12/26/14 [address] [facility] [address] [place] [address] Min Lange MD MD Neurology 03/30/16 Marlo Madsen MD Cardiology 10/27/16 CT [address] [facility] [address] [place] [address] Mel Buckley, DIAZ Nurse Coordinator Physical Medicine and 12/02/16 Rehabilitation documented as of this encounter
--- OUTSIDE RECORDS SUMMARY | 2022-06-30 09:49 | XMS_ITS | Encounter Summary ---
:1990 Author Organization [facility] Address [address] [place] [address] Care Team Providers Name Role Phone Alfonso Tang Primary Care Provider Unavailable Dayanara Bee MD Unavailable Min Lange MD Unavailable Unavailable Marlo Madsen MD Unavailable Mel Buckley RN Unavailable Reason for Visit Reason Onset Date Comments Clinic Care Coordination - Initial 12/07/2016 Encounter Details Date Type Department Care Team Description 12/07/2016 Telephone [facility] Alexandra Moralez Clini [facility] Care Coordination corporate manager - Initial [address] [place] [address] Social History Tobacco Use Types Packs/Day Years Used Date Smoking Tobacco: Never Smokeless Tobacco: Never Alcohol Use Standard Drinks/Week Comments No 0 (1 standard drink = 0.6 oz pure alcoho l) Sex Assigned at Date Recorded 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 Constipation, unspecified constipation type Referring Provider. Devin Burleson MD Rescue Boat Operator? Not needed Arrival time verified? Yes, 1030 Facility location verified? Yes, [address] [facility] Instructions given regarding prep and procedure Prep Type Golytely Are you taking any anticoagulants or blood thinners? No Instructions given? N/A Electronic implanted devices? No Barriers to learning? No Pre procedure teaching completed? Yes Transportation from procedure? Mother, Mother will stay with patient after procedure H&P / Pre op physical completed? Yes, 11/24/16 documented in this encounter Plan of Treatment Upcoming Encounters Date Type Specialty Care Team Description 08/19/2022 Office Visit Gastroenterology Mirza Vasquez MD [address] [place] [address] (Wo rk) documented as of this encounter Visit Diagnoses Not on filedocumented in this encounter Care Teams Film Numberer Relationship Specialty Start Date End Date Alfonso Tang PCP - General Family Practice 09/04/13 08/12/21 Dayanara Bee MD MD Pediatrics 12/26/[address] [place] [address] [address] [place] [address] Min Lange MD MD Neurology 03/30/16 Marlo Madsen MD Cardiology 10/27/[address] [place] [address] Mel Buckley, DIAZ Nurse Coordinator Physical Medicine and 12/02/16 Rehabilitation documented as of this encounter
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
--- OUTSIDE RECORDS SUMMARY | 2022-06-30 09:49 | XMS_ITS | Encounter Summary ---
:1990 Author Organization [facility] Address [address] [place] [address] Care Team Providers Name Role Phone Alfonso Tang Primary Care Provider Unavailable Dayanara Bee MD Unavailable Min Lange MD Unavailable Unavailable Marlo Madsen MD Unavailable Mel Buckley RN Unavailable Encounter Details Date Type Department Care Team Description 11/27/2016 Records - [facility] CONVERSION Provider, Zo campbell Social History Tobacco Use Types Packs/Day Years Used Date Smoking Tobacco: Never Smokeless Tobacco: Never Alcohol Use Standard Drinks/Week Comments No 0 (1 standard drink = 0.6 oz pure alcoho l) Sex Assigned at Date Recorded 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 encounter Plan of Treatment Upcoming Encounters Date Type Specialty Care Team Description 08/19/2022 Office Visit Gastroenterology Mirza Vasquez MD [address] [place] [address] (Wo rk) documented as of this encounter Visit Diagnoses Not on filedocumented in this encounter Care Teams Operations General Agent Relationship Specialty Start Date End Date Alfonso Tang PCP - General Family Practice 09/04/13 08/12/21 Dayanara Bee MD MD Pediatrics 12/26/[address] [place] [address] 75 [place] [address] Min Lange MD MD Neurology 03/30/16 Marlo Madsen MD Cardiology 10/27/[address] [place] [address] Mel Buckley, DIAZ Nurse Coordinator Physical Medicine and 12/02/16 Rehabilitation documented as of this encounter
--- OUTSIDE RECORDS SUMMARY | 2022-06-30 09:49 | XMS_ITS | Encounter Summary ---
:1990 Author Organization [facility] Address [address] [place] [address]. [place] [address] Care Team Providers Name Role Phone Alfonso Tang Primary Care Provider Unavailable Dayanara Bee MD Unavailable Min Lange MD Unavailable Unavailable Marlo Madsen MD Unavailable Mel Buckley RN Unavailable Reason for Visit Auth/Cert Specialty Diagnoses / Procedures Referred By Contact Refer red To Contact Gastroenterology Diagnoses family history of colon cancer, IBS and pre-cancerous polyp, increased constipation [facility] Procedures COLONOSCOPY [address] [place] [address] Phone: Referral ID Status Reason Start Date Expiration Date Visits Requ ested Visits Authorized [id number] 1 1 Encounter Details Date Type Department Care Team Description 12/10/2016 Surgery [facility] Juno Brennan Derik, COLONOSCO PY, WITH Endoscopy MD Chaitanya POLYPECTOMY AND BIOPSY [address] [facility] [address] [facility] [place] [address] 2A [phone] [place], [place] [address] (Wo rk) Surgery Details Date/Time Status Location OR Service Patient Class Case Case Trauma Class Type Case? 12/10/16 9:00 Posted [facility] Outpatient AM 01 Panel 1 Procedure LRB Anes Op Region Wound Class Commen ts COLONOSCOPY, WITH POLYPECTOMY AND N/A MAC Anus II -Clean Contaminated BIOPSY Surgeon Surgeon Role Service Panel Chaiatnya Garza MD Primary Gastroenterology 1 Special Needs What is your current height? 5'6What is your current weight?205 Have you had a procedure in the past that was difficult to tolerate with conscious sedation? Needs MAC for syncope episodesIn the past year , have you had any heart related issues that required cardiac stenting or other implantable devices? NoWhat type of implantable device do you have? NoAre yo u currently taking any blood thinners? No Do you use oxygen on a continuous basis? No Do you currently use any a lcohol or street drugs? NoDo you have an y history of post-traumatic stress syndrome or mental health issues? 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 to 4:30 p.m. Endoscopy: [phone] (We may have to call you back) After hours Hospital: [phone] (Ask for the GI fellow database reporting consultant) documented in this encounter Medications at Time [...] documented as of this encounter Nursing Notes Te Coronel, RN - 12/10/2016 9:10 AM CDT Colonoscopy done under MAC, VS and medications per AIRPLANE NAVIGATOR . Polypectomy x2 sent to path documented in this encounter Plan of Treatment Upcoming Encounters Date Type Specialty Care Team Description 08/19/2022 Office Visit Gastroenterology iMrza Vasquez MD [address] [place] [address] (Wo rk) documented as of this encounter Procedures Procedure Name Priority Date/Time Associated Diagnosis [facility]me [facility] SURGICAL PATHOLOGY Routine 12/10/2016 9:37 AM Res [...] Component Value Ref Test Analysis Performed At [facility] Range Method Time Signature Copath Patient Name: DARIN MACHADO CARMENEMMA Report MR#: [id number] Specimen #: [id number] Collected: 12/10/2016 Received: 12/10/2016 Reported: 12/11/2016 13:53 [...] Electronically signed out by: Blanka Ferguson M.D., [facility] CLINICAL HISTORY: High risk colon cancer surveillance: [...] Microscopic examination is performed. CPT Codes: A: 89953-QI2 TESTING LAB LOCATION: [facility], [address] ?? [address] COLLECTION SITE: Client: [facility] Location: [facility] (B) Specimen (Source) Anatomical Collection Method Collection Time Re ceived Time Location / / Volume Laterality Polyp TOPOGRAPHY UNKNOWN 12/10/2016 9:37 AM (morphologic / Unknown CDT abnormality) Chaitanya More MD [facility] Performing Organization Address City/State/ZIP Code Phon e Number [place] COLONOSCOPY (12/10/2016 8:54 AM CDT) Component Value Ref Test Analysis Performed At [facility] gist Range Method Time Signature COLONOSCOPY [facility] RADIOLOGY [address] [place], [place] [id number] [phone] ? End oscopy Department RESULTS Patient Name: Darin Machado ? Procedure Date: 12/10/2016 8:54 AM ? Accou nt Number: [id number] Date of : 1990 ?Admit Type: Out patient Age: 26 ? Room: [facility]. Gender: Female ?Note Statu s: Finalized Attending [...] t he exam. Signature of teaching physician B4c/Alaina Fraire MD Number of Addenda: 0 Note [...] (MYLICON) suspension 0906 (Given - Provider: Te Coronel RN) PRN, Starting on Aleshia 12/10/16 at 0906, Intra-procedure documented in this encounter Care Teams Resaw Machine Operator Relationship Specialty Start Date End Date Alfonso Tang PCP - General Family Practice 09/04/13 08/12/21 Dayanara Bee MD MD Pediatrics 12/26/[address] [place] [address] 75 [place] [address] Min Lange MD MD Neurology 03/30/16 Marlo Madsen MD Cardiology 10/27/16 [address] [facility] [address] [place] [address] Mel Buckley, RN Nurse Coordinator Physical Medicine and 12/02/16 Rehabilitation documented as of this encounter
--- OUTSIDE RECORDS SUMMARY | 2022-06-30 09:49 | XMS_ITS | Encounter Summary ---
:1990 Author Organization [facility] Address [address] [place] [address] Care Team Providers Name Role Phone Alfonso Tang Primary Care Provider Unavailable Dayanara Bee MD Unavailable Min Lange MD Unavailable Unavailable Marlo Madsen MD Unavailable Mel Buckley RN Unavailable Encounter Details Date Type Department Care Team Description 12/18/2016 Records - [facility] CONVERSION Provider, Zo campbell Social History Tobacco Use Types Packs/Day Years Used Date Smoking Tobacco: Never Smokeless Tobacco: Never Alcohol Use Standard Drinks/Week Comments No 0 (1 standard drink = 0.6 oz pure alcoho l) Sex Assigned at Date Recorded 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 as of this encounter Plan of Treatment Upcoming Encounters Date Type Specialty Care Team Description 08/19/2022 Office Visit Gastroenterology Mirza Vasquez MD [address] [place] [address] (Wo rk) documented as of this encounter Visit Diagnoses Not on filedocumented in this encounter Care Teams Paper Final Inspector Relationship Specialty Start Date End Date Alfonso Tang PCP - General Family Practice 09/04/13 08/12/21 Dayanara Bee MD MD Pediatrics 12/26/[address] [place] [address] [address] [place] [address] Min Lange MD MD Neurology 03/30/16 Marlo Madsen MD Cardiology 10/27/[address] [place] [address] Mel Buckley, DIAZ Nurse Coordinator Physical Medicine and 12/02/16 Rehabilitation documented as of this encounter
--- OUTSIDE RECORDS SUMMARY | 2022-06-30 09:49 | XMS_ITS | Encounter Summary ---
:1990 Author Organization [facility] Address [address] [place] [address]. [place] [address] Care Team Providers Name Role Phone Alfonso Tang Primary Care Provider Unavailable Dayanara Bee MD Unavailable iMn Lange MD Unavailable Unavailable Marlo Madsen MD Unavailable Mel Buckley RN Unavailable Encounter Details Date Type Department Care Team Description 01/04/[address] Office [address] 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 Health Psychology Clinic Department of Medicine Florencia Powell, PhD, LP Clinics and [facility] Rohit Eng, PhD, LP 3rd Floor Orange Mail Code 001 Pardeep Bruno, PhD, ABPP, LP [address] [facility], 420 [facility], Latricia Bryan, PhD, LP [place] [address] [place] [address] Verena Cervantes, PhD, LP Health Psychology Follow-Up Note SUBJECTIVE: Latricia Machado is a 26-year-old female with a medical history significant for dysautonomia, frequent migraines, chronic abdominal pain, nausea and vomiting, and chronic constipation. She was seen for individual therapy for coping with chronic illness. A treatment plan was completed in collaboration with the patient in this session. She reported difficulty finding purpose in this change of health status. Previous experiences in setbacks due to health were reviewed, and she reported flexibly adaptingmultiple times during schoolwork when health setbacks prolonged degree completion. However, uncertainty in how and when to return to work is related to increased distress in this change in health status. Reviewed patient's values and goals, encouraging flexible adaptation to these values depending on health status. Encouraged acceptance of health status while maintaining engagement in valued activities. Discussed connection between thoughts, feelings, behaviors, and bodily sensations as well as waysfor her to change thoughts (e.g., de-catastrophize) and behaviors (pace activity and take breaks) inorder to enhance coping with health symptoms. OBJECTIVE: The patient was alert and oriented [...] on coping with health changes. Time in: 2:07 Time out: 3:00 Extended session due to complexity of case and length of interval. Latricia Bryan, PhD, Clinical Health Psychologist Tx plan completed: 01/04/17 Tx plan due: 01/04/18 documented in this encounter Plan of Treatment Upcoming Encounters Date Type Specialty Care Team Description 08/19/2022 Office Visit Gastroenterology Mirza Vasquez MD [address] [place] [address] (Wo rk) documented as of this encounter Visit Diagnoses Diagnosis Major depressive disorder, recurrent epi sode, moderate (H) - Primary Major depressive disorder, recurrent epi sode, moderate WALDEMAR (generalized anxiety disorder) Generalized anxiety disorder documented in this encounter Care Teams Marketing Database Coordinator Relationship Specialty Start Date End Date Alfonso Tang PCP - General Family Practice 09/04/13 08/12/21 Dayanara Bee MD MD Pediatrics 12/26/[address] [place] [address] [address] [place] [address] Min Lange MD MD Neurology 03/30/16 Marlo Madsen MD Cardiology 10/27/[address] [place] [address] [address] [place], [place] [phone] Mel Buckley, RN Nurse Coordinator Physical Medicine and 12/02/16 Rehabilitation documented as of this encounter
--- OUTSIDE RECORDS SUMMARY | 2022-06-30 09:49 | XMS_ITS | Encounter Summary ---
:1990 Author Organization [place] Address [address] [place] [id number] Care Team Providers Name Role Phone Alfonso Tang Primary Care Provider Unavailable Dayanara Bee MD Unavailable Min Lange MD Unavailable Unavailable Marlo Madsen MD Unavailable Encounter Details Date Type Department Care Team Description 11/24/2016 Office Visit [facility] 3, Pac Paula Const ipation, unspecified constipation type (Primary Dx); Assessment Center Preop examination [address] [facility] 5th [place] [address] Anesthesia Record Procedure Summary Procedure Name Responsible Anesthesia Start Anesthesia Stop Anesthesiologist Time Time COLONOSCOPY, WITH Jeovany Castaneda MD 12/10/16 0900 12/10/16 0943 POLYPECTOMY AND BIOPSY (Anus) Events Date Time Event Comment 12/10/2016 0817 0900 An Start 0901 An Start Data 0908 AN INCISION 0915 MD Present 0938 an stop data 0943 An Stop Electronically s igned by Felicitas Coleman on December 10, 2016 9:43 AM No medications on file. Agents No agents on file. Blood No blood administrations on file. 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 documented as of this encounter Last Filed Vital Signs Vital Sign Reading Time Taken Comments Blood Pressure 131/82 11/24/2016 2:05 PM CDT Pulse 71 11/24/2016 2:05 PM CDT Temperature 36.8 ??C (98.3 ??F) 11/24/2016 2:05 PM CDT Respiratory Rate 14 11/24/2016 2:05 PM CDT Oxygen Saturation 97% 11/24/2016 2:05 PM CDT Inhaled Oxygen Concentration - - Weight 97 kg (213 lb 12.8 oz) 11/24/2016 2:05 PM CDT Height 167.6 cm (5' 6) 11/24/2016 2:05 PM CDT Body Mass Index 34.51 11/24/2016 2:05 PM CDT documented in this encounter H&P Notes Florencia Gates NP - 11/24/2016 2:30 PM CDT Images from the original note were not included. Pre-Operative H & P Date of Encounter: 11/24/2016 Primary Care Physician: Alfonso Tang CC: Irritable bowel disease with increasing constipation; history of pre- cancerous polyp on colonoscopy with family history of colon cancer. HPI: Latricia Machado is a 26 year old female who presents for pre-operative H & P in preparation for Colonoscopy on 12/10/[address] Juno More at [facility]. The patient is followed by Dr. Vasquez with [facility] for irritable bowel disease, and most recently was evaluated on 10/21/16. They developed a plan of care including medications to prevent nausea/vomiting; working on sleep and migraine issues; maintaining a varied diet, including plenty of fluids and high fiber; scheduling an appointment with GI health psychologist, and colonoscopy. Arrangements are being made for the above procedure. History is obtained from the patient and the medical record. Past Medical History: Past Medical History Diagnosis [...] Surgeon: Adelso Dawson MD; Location: [facility] OR Hx of Blood transfusions/reactions: Denies. Hx of abnormal bleeding or anti-platelet use: Denies. Menstrual history: No LMP recorded. Patient uses Depo-Provera, so periods are forced every 3 months. Last menses was 09/08/16. Steroid use in the last year: Course of Prednisone approximately 6 months ago for a rash. Personal or FH of difficulty with anesthesia: Has woken up during procedures with visual and auditory awareness. Prior to admission medications Current Outpatient Prescriptions Medication Sig Dispense Refill ??? clonazePAM (KLONOPIN) 0.5 MG tablet Take 0.5 mg by mouth as needed ??? medroxyPROGESTERone (PROVERA) 10 MG tablet Take 10 mg by mouth every 3 months ??? Atorvastatin Calcium (LIPITOR PO) Take 20 mg by mouth At Bedtime ??? metoclopramide (REGLAN) 5 MG tablet Take 1 tablet (5 mg) by mouth 2 times daily as needed 30 tablet 1 ??? fludrocortisone (FLORINEF) 0.1 MG tablet Take 1 tablet (0.1 mg) by mouth daily No refills, please contact PCP or appt needed (Patient taking differently: Take 0.2 mg by mouth every morning No refills, please contact PCP or appt needed) 30 tablet 0 ??? clobetasol (TEMOVATE) 0.05 % cream Apply topically as needed ??? CITALOPRAM HYDROBROMIDE PO Take 10 mg by mouth every evening ??? zonisamide (ZONEGRAN) 50 MG capsule TAKE 4 CAPSULES BY ORAL ROUTE DAILY 120 capsule 8 ??? oxyCODONE-acetaminophen (PERCOCET) 5-325 MG per tablet Take 1 tablet by mouth every 12 hours as needed for moderate to severe pain 10 tablet 0 ??? meclizine (ANTIVERT) 25 MG tablet TAKE 1 TABLET BY MOUTH THREE TIMES DAILY ??? ondansetron (ZOFRAN-ODT) 4 MG disintegrating tablet DISSOLVE 1 TABLET (4 MG TOTAL) ON TONGUE EVERY 8 (EIGHT) HOURS NEEDED FOR NAUSEA. ??? desvenlafaxine succinate (PRISTIQ) 100 MG TB24 24 hr tablet Take 100 mg by mouth every morning ??? linaclotide (LINZESS) 290 MCG capsule Take 1 capsule (290 mcg) by mouth every morning (before breakfast) Please follow up in clinic as scheduled 30 capsule 11 ??? Multiple Vitamins-Minerals (WOMENS MULTIVITAMIN PLUS PO) Take 1 tablet by mouth every morning ??? order for DME DREAMSTATION 5-15 CM/H20 NASAL WISP FABRIC ??? order for DME Equipment being ordered: Micro climate cooling vest 1 kit 0 Allergies Allergies Allergen Reactions ??? Augmentin GI Disturbance Social History Social History Social History ??? Marital status: [...] Not on file Social History Narrative Family History Family History Problem Relation Age of Onset ??? Colon Polyps Other grandfather ??? Cancer - colorectal Father 50 ??? CANCER Other breast ??? Crohn Disease No family hx of ??? Ulcerative Colitis No family hx of Review of Systems Functional status: Independent in ADL's. 3 METS. Patient reports that her activity level is quite limited due to the increased episodes of dizziness and syncope associated with dysautonomia. Increased activity seems to be a trigger. The complete review of systems is negative other than noted in the HPI or here. Constitutional: Denies recent fevers/chills. Reports an approximately 25 pound weight gain over the past 6 months. Reports that sleep is interrupted due to nausea. Eyes: No recent vision changes. EENT: Denies recent changes in hearing, mouth pain, or difficulty swallowing. Cardiovascular: Denies chest pain, TURCIOS or orthopnea, or palpitations. Respiratory: Denies shortness of breath or significant cough. GI: Reports chronic issues with nausea/vomiting and constipation. : Denies dysuria. Musculoskeletal: Denies joint pain or swelling. Skin: Denies rashes or wounds. Hematologic: Denies easy bruising or bleeding. Neurologic: Denies seizures, dizziness, numbness/tingling. Reports that she has migraines on a weekly basis. She is on a prophylactic medication regimen, but it is no longer effective. Arrangements arebeing made for her to be evaluated by Neurology to discuss possible Botox therapy. Reports that the episodes of dizziness and syncope associated with dysautonomia have become more frequent, occurring once a week. In addition, the time of unconsciousness has increased from a few seconds, to 3-4 minutesin length. While episodes are unpredictable, she is usually able to sense when an episode is coming on and can get herself to a safe place. Psychiatric: Denies changes in mood or affect. BP 131/82 Pulse 71 Temp 98.3 ??F (36.8 ??C) (Oral) Resp 14 Ht 1.676 m (5' 6) Wt 97 kg (213 lb 12.8 oz) SpO2 97% BMI 34.51 kg/m2 213 lbs 12.8 oz 5' 6 Body mass index is 34.51 kg/(m^2). Physical Exam Constitutional: Patient awake, seated upright in a chair, in no apparent distress. Appears stated age. Eyes: Pupils equal, round and reactive to light. Extra ocular muscles intact. Sclera clear. Conjunctiva normal. HENT: Head normocephalic. Oral pharynx intact with moist mucous membranes. Dentition intact. No thyromegaly appreciated. Respiratory: Lung sounds clear to auscultation bilaterally. No rales, rhonchi, or wheezing noted. Cardiovascular: S1, S2, regular rate and rhythm. No murmurs, rubs, or gallops noted. Radial and pedal pulses palpable, bilaterally. No edema noted. GI: Bowel sounds present. Abdomen obese, soft, non-tender to light palpation. No hepatosplenomegaly or masses palpated. Genitourinary: Exam deferred. Lymph/Hematologic: No cervical or supraclavicular lymphadenopathy noted. No excessive bruising noted. Skin: Color appropriate for race, warm, dry. No rashes or wounds at anticipated surgical site. Musculoskeletal: Full extension of the neck. No redness, warmth, or swelling of the joints noted. Gross motor strength is normal. Neurologic: Alert, oriented to name, place and time. Cranial nerves II-XII are grossly intact. Gait is normal. Neuropsychiatric: Calm, cooperative. Normal affect. Lab results were personally reviewed by this provider. Assessment and Plan Latricia Machado is a 26 year old [...] (If > 2, anti-emetic intervention is recommended.) Patient was discussed with Dr. Subramanian. Florencia Gates NP Preoperative Assessment Center [facility] documented in this encounter Plan of Treatment Upcoming Encounters Date Type Specialty Care Team Description 08/19/2022 Office Visit Gastroenterology Mirza Vasquez MD [address] [place] [phone] (Wo rk) documented as of this encounter Visit Diagnoses Diagnosis Constipation, unspecified constipation t ype - Primary Preop examination Preoperative examination, unspecified documented in this encounter Care Teams Focuser Relationship Specialty Start Date End Date Alfonso Tang PCP - General Family Practice 12/23/13 11/30/21 Dayanara Bee MD MD Pediatrics 12/26/14 [address] [facility] [address] [place] [address] Min Lange MD MD Neurology 03/30/16 Marlo Madsen MD MD Cardiology 10/27/16 [address] [facility] [address] [place] [address] documented as of this encounter
--- OUTSIDE RECORDS SUMMARY | 2022-06-30 09:49 | XMS_ITS | Encounter Summary ---
:1991 Author Organization [place] Address [address] [place] [address] Care Team Providers Name Role Phone Alfonso Tang Primary Care Provider Unavailable Dayanara Bee MD Unavailable Min Lange MD Unavailable Unavailable aMrlo Madsen MD Unavailable Encounter Details Date Type Department Care Team Description 11/27/2016 Orders Only [facility] Ina, Mel, Intract able chronic Medicine and RN migraine without aura Rehabilitation [phone] and without status [address] [place] [address] (Work) migrainosus (Primary 3rd Floor Dx) [place] [address] Social History Tobacco Use Types Packs/Day Years Used Date Smoking Tobacco: Never Smokeless Tobacco: Never Alcohol Use Standard Drinks/Week Comments No 0 (1 standard drink = 0.6 oz pure alcoho l) Sex Assigned at Date Recorded 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 as of this encounter Plan of Treatment Upcoming Encounters Date Type Specialty Care Team Description 08/19/2022 Office Visit Gastroenterology Mirza Vasquez MD [address] [place] [address] (Wo rk) documented as of this encounter Visit Diagnoses Diagnosis Intractable 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 aur a and without status migrainosus - Primary Chronic migraine without aura, with intr actable migraine, so stated, without mention of status migrainosus documented in this encounter Care Teams Gang Drill Press Operator Relationship Specialty Start Date End Date Alfonso Tang PCP - General Family Practice 09/04/13 08/12/21 Dayanara Bee MD MD Pediatrics 12/26/14 420 [facility] [address] [place] [address] Min Lange MD MD Neurology 03/30/16 Marlo Madsen MD MD Cardiology 10/27/16 420 [facility] [address] [place], [place] [phone] documented as of this encounter
--- OUTSIDE RECORDS SUMMARY | 2022-06-30 09:49 | XMS_ITS | Encounter Summary ---
:1990 Author Organization [place] Address [address] [place] [address] Care Team Providers Name Role Phone Alfonso Tang Primary Care Provider Unavailable Dayanara Bee MD Unavailable Min Lange MD Unavailable Unavailable Marlo Madsen MD Unavailable Mel Buckley RN Unavailable Encounter Details Date Type Department Care Team Description 11/24/2016 Records - [facility] CONVERSION Provider, Zo campbell Social History Tobacco Use Types Packs/Day Years Used Date Smoking Tobacco: Never Smokeless Tobacco: Never Alcohol Use Standard Drinks/Week Comments No 0 (1 standard drink = 0.6 oz pure alcoho l) Sex Assigned at Date Recorded 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 Plan of Treatment Upcoming Encounters Date Type Specialty Care Team Description 08/19/2022 Office Visit Gastroenterology Mirza Vasquez MD [address] [place] [address] (Wo rk) documented as of this encounter Visit Diagnoses Not on filedocumented in this encounter Care Teams Jointer Operator Relationship Specialty Start Date End Date Alfonso Tang PCP - General Family Practice 09/04/13 08/12/21 Dayanara Bee MD MD Pediatrics 12/26/[address] [place] [address] 75 [place] [address] Min Lange MD MD Neurology 03/30/16 Marlo Madsen MD Cardiology 10/27/[address] [place] [address] Mel Buckley, DIAZ Nurse Coordinator Physical Medicine and 12/02/16 Rehabilitation documented as of this encounter
--- OUTSIDE RECORDS SUMMARY | 2022-06-30 09:50 | XMS_ITS | Encounter Summary ---
:1991 Author Organization [place] Address [address] [place] [address]. [place] [address] Care Team Providers Name Role Phone Alfonso Tang Primary Care Provider Unavailable Dayanara Bee MD Unavailable Min Lange MD Unavailable Unavailable Reason for Visit Reason Comments Sleep Problem STM Encounter Details Date Type Department Care Team Description 07/30/2016 Documentation Only [facility] Sleep Sleep Problem (STM) Center Virtual Care [address] [place] [address], [address] [place] [address] Social History Tobacco Use Types Packs/Day Years Used Date Smoking Tobacco: Never Smokeless Tobacco: Never Alcohol Use Standard Drinks/Week Comments No 0 (1 standard drink = 0.6 oz pure alcoho l) Sex Assigned at Date Recorded 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 Action plan: Pt to have f/u 14 day STM visit. PRODUCT INSPECTOR documented in this encounter Plan of Treatment Upcoming Encounters Date Type Specialty Care Team Description 08/19/2022 Office Visit Gastroenterology Mirza Vasquez MD [address] [place] [address] (Wo rk) documented as of this encounter Visit Diagnoses Not on filedocumented in this encounter Care Teams Pack Master Relationship Specialty Start Date End Date Alfonso Tang PCP - General Family Practice 09/04/13 08/12/21 Dayanara Bee MD MD Pediatrics 12/26/[address] [place] [address] [address] [place], [place] [phone] Min Lange MD MD Neurology 03/30/16 documented as of this encounter
--- OUTSIDE RECORDS SUMMARY | 2022-06-30 09:50 | XMS_ITS | Encounter Summary ---
:1990 Author Organization [place] Address [address] [place] [address] Care Team Providers Name Role Phone Alfonso Tang Primary Care Provider Unavailable Dayanara Bee MD Unavailable Min Lange MD Unavailable Unavailable Marlo Madsen MD Unavailable Mel Buckley RN Unavailable Encounter Details Date Type Department Care Team Description 08/28/2016 Records - 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 encounter Plan of Treatment Upcoming Encounters Date Type Specialty Care Team Description 08/19/2022 Office Visit Gastroenterology Mirza Vasquez MD [address] [place] [address] (Wo rk) documented as of this encounter Visit Diagnoses Not on filedocumented in this encounter Care Teams Safety Inspector Relationship Specialty Start Date End Date Alfonso Tang PCP - General Family Practice 09/04/13 08/12/21 Dayanara Bee MD MD Pediatrics 12/26/[address] [place] [address] 75 [place] [address] Min Lange MD MD Neurology 03/30/16 Marlo Madsen MD Cardiology 10/27/[address] [place] [address] Mel Buckley, DIAZ Nurse Coordinator Physical Medicine and 12/02/16 Rehabilitation documented as of this encounter
--- OUTSIDE RECORDS SUMMARY | 2022-06-30 09:50 | XMS_ITS | Encounter Summary ---
:1990 Author Organization [place] Address [address] [place] [address] Care Team Providers Name Role Phone Alfonso Tang Primary Care Provider Unavailable Dayanara Bee MD Unavailable Min Lange MD Unavailable Unavailable Marlo Madsen MD Unavailable Mel Buckley RN Unavailable Reason for Visit Reason Comments Other [facility] paperwork re: dysautono fidelia Encounter Details Date Type Department Care Team Description 10/13/2016 [facility] Alfonso Tang RETIRED Other ([facility] Provider, Historical paperwork re: 1982 [facility] dysautonomi a) [address] [place] [address] Social History Tobacco Use Types Packs/Day Years Used Date Smoking Tobacco: Never Smokeless Tobacco: Never Alcohol Use Standard Drinks/Week Comments No 0 (1 standard drink = 0.6 oz pure alcoho l) Sex Assigned at Date Recorded 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 documented as of this encounter Plan of Treatment Upcoming Encounters Date Type Specialty Care Team Description 08/19/2022 Office Visit Gastroenterology Mirza Vasquez MD [address] [place] [address] (Wo rk) documented as of this encounter Visit Diagnoses Not on filedocumented in this encounter Care Teams Folding Rules Printing Machine Operator Relationship Specialty Start Date End Date Alfonso Tang PCP - General Family Practice 09/04/13 08/12/21 Dayanara Bee MD MD Pediatrics 12/26/[address] [place] [address] 75 [place] [address] Min Lange MD MD Neurology 03/30/16 Marlo Madsen MD Cardiology 10/27/[address] [place], [place] [address] Mel Buckley, RN Nurse Coordinator Physical Medicine and 12/02/16 Rehabilitation documented as of this encounter
--- OUTSIDE RECORDS SUMMARY | 2022-06-30 09:50 | XMS_ITS | Encounter Summary ---
:1991 Author Organization [place] Address [address] [place] [address]. [place] [address] Care Team Providers Name Role Phone Alfonso Tang Primary Care Provider Unavailable Dayanara Bee MD Unavailable Min Lange MD Unavailable Unavailable Reason for Visit Reason Comments Sleep Problem [facility] Encounter Details Date Type Department Care Team Description 09/23/2016 Documentation Only [facility] Sleep Sleep Problem (STM) Center Virtual Care [address] [place] [address], [address] [place] [address] Social History Tobacco Use Types Packs/Day Years Used Date Smoking Tobacco: Never Smokeless Tobacco: Never Alcohol Use Standard Drinks/Week Comments No 0 (1 standard drink = 0.6 oz pure alcoho l) Sex Assigned at Date Recorded 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 Patient had recent follow up with Dr. Sarkar. She has not used device since follow up. LM for patient to return call. NG FELLER documented in this encounter Plan of Treatment Upcoming Encounters Date Type Specialty Care Team Description 08/19/2022 Office Visit Gastroenterology Mirza Vasquez MD [address] [place] [address] (Wo rk) documented as of this encounter Visit Diagnoses Not on filedocumented in this encounter Care Teams Sterile Products Processor Relationship Specialty Start Date End Date Alfonso Tang PCP - General Family Practice 09/04/13 08/12/21 Dayanara Bee MD MD Pediatrics 12/26/[address] [place] [address] 75 [place] [address] Min Lange MD MD Neurology 03/30/16 documented as of this encounter
--- OUTSIDE RECORDS SUMMARY | 2022-06-30 09:50 | XMS_ITS | Encounter Summary ---
:1990 Author Organization [place] Address [address] [place] [address] Care Team Providers Name Role Phone Alfonso Tang Primary Care Provider Unavailable Dayanara Bee MD Unavailable Min Lange MD Unavailable Unavailable Marlo Madsen MD Unavailable Mel Buckley RN Unavailable Encounter Details Date Type Department Care Team Description 10/20/2016 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 documented as of this encounter Plan of Treatment Upcoming Encounters Date Type Specialty Care Team Description 08/19/2022 Office Visit Gastroenterology Mirza Vasquez MD [address] [place] [address] (Wo rk) documented as of this encounter Visit Diagnoses Not on filedocumented in this encounter Care Teams Firmware Engineer Relationship Specialty Start Date End Date Alfonso Tang PCP - General Family Practice 09/04/13 08/12/21 Dayanara Bee MD MD Pediatrics 12/26/14 [address] [facility] [address] [place] [address] Min Lange MD MD Neurology 03/30/16 Marlo Madsen MD Cardiology 10/27/16 CT [address] [facility] [address] [place], [place] [phone] Mel Buckley, RN Nurse Coordinator Physical Medicine and 12/02/16 Rehabilitation documented as of this encounter
--- OUTSIDE RECORDS SUMMARY | 2022-06-30 09:50 | XMS_ITS | Encounter Summary ---
:1990 Author Organization [place] Address [address] [place] [address]. [place] [address] Support Name Relationship Address Phone Lali Machado Unavailable [address] [facility] [phone] [place] [address] Lali Avitia Unavailable Unavailable Care Team Providers Name Role Phone Alfonso Tang Primary Care Provider Unavailable Dayanara Bee MD Unavailable Min Lange MD Unavailable Unavailable Reason for Visit Reason Comments Devoraena Encounter Details Date Type Department Care Team Description 10/16/2016 Hospital Encounter [facility] Chan Kumar evated LFTs; DEPARTMENT T, Dark stools; [address] [place] [address] [id number] Social History Tobacco Use Types Packs/Day Years Used Date Smoking Tobacco: Never Smokeless Tobacco: Never Alcohol Use Standard Drinks/Week Comments No 0 (1 standard drink = 0.6 oz pure alcoho l) Sex Assigned at Date Recorded Female 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 documented as of this encounter Last Filed Vital Signs Vital Sign Reading Time Taken Comments Blood Pressure - - Pulse - - Temperature - - Respiratory Rate - - Oxygen Saturation - - Inhaled Oxygen Concentration - - Weight 95.3 kg (210 lb) 10/16/2016 6:13 PM NAUTICAL INSTRUMENT MECHANIC Height 167.6 cm (5' 6) 10/16/2016 6:13 PM NAUTICAL INSTRUMENT MECHANIC Body Mass Index 33.89 10/16/2016 6:13 PM NAUTICAL INSTRUMENT MECHANIC documented in this encounter Medications at Time of Discharge Medication Sig Dispensed Refills Start Date End Date clonazePAM (KLONOPIN) Take 0.5 mg by 0 01/01/2016 0.5 MG tablet mouth as needed meclizine (ANTIVERT) 25 TAKE 1 TABLET BY 0 2015 MG tablet MOUTH THREE TIMES DAILY ondansetron (ZOFRAN-ODT) DISSOLVE 1 TABLET 0 12/12 4 MG disintegrating (4 MG TOTAL) ON tablet TONGUE EVERY 8 (EIGHT) HOURS NEEDED FOR NAUSEA. order for Equipment being 1 kit 0 04/03/2015 DMEIndications: ordered: Micro Dysautonomia (H), Heat climate cooling intolerance vest CITALOPRAM HYDROBROMIDE Take 10 mg by mouth 0 10/31/2021 PO every evening desvenlafaxine succinate Take 100 mg by 0 014 10/31/2021 (PRISTIQ) 100 MG TB24 24 mouth every morning hr tablet fludrocortisone Take 1 tablet (0.1 30 tablet 0 09/05/2016 0 03/03/2022 (FLORINEF) 0.1 MG mg) by mouth daily tabletIndications: No refills, please Autonomic dysfunction contact PCP or appt needed linaclotide (LINZESS) Take 1 capsule (290 30 capsule 11 04/1510/31/2021 290 MCG mcg) by mouth every capsuleIndications: morning (before Irritable bowel syndrome breakfast) Please without diarrhea follow up in clinic as scheduled Multiple Take 1 tablet by 0 10/31/19 22 Vitamins-Minerals mouth every morning (WOMENS MULTIVITAMIN PLUS PO) order for DME DREAMSTATION 0 2 5-15 CM/H20 NASAL WISP FABRIC oxyCODONE-acetaminophen Take 1 tablet by 10 tablet 0 201502/01/2017 (PERCOCET) 5-325 MG per mouth every 12 tabletIndications: hours as needed for Migraine without aura moderate to severe and without status pain migrainosus, not intractable, Intractable 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 zonisamide (ZONEGRAN) 50 TAKE 4 CAPSULES BY 120 capsule 8 05/04/2017 MG capsuleIndications: ORAL ROUTE DAILY Migraine without aura and without status migrainosus, not intractable clobetasol (TEMOVATE) Apply topically as 0 10/31/2021 0.05 % cream needed dihydroergotamine Percy 1 spray into 3.5 mL 3 04/09/2016 10/21/2016 (MIGRANAL) 4 MG/ML nasal both nostrils as sprayIndications: needed for migraine Intractable chronic Use in one nostril migraine without aura as directed. No and without status more than 4 sprays migrainosus, Migraine in one hour. without aura and without status migrainosus, not intractable Multiple Vitamin Take 1 capsule by 0 0 10/21/2016 (MULTIVITAMIN S) CAPS mouth Lapine-3 Fatty Acids Take by mouth daily 0 11/24/2016 (OMEGA-3 FISH OIL PO) documented as of this encounter ED Notes Chan Kumar MD - 10/16/2016 6:22 PM CST eMERGENCY dEPARTMENT eNCOUnter CHIEF COMPLAINT Chief Complaint Patient presents with ??? Melena HPI Latricia Machado is a 26 y.o. female with a history of feinting disorder who presents to the ED forevaluation of dark stools. Patient reports she has had a sinus infection for some time. She was placed on Augmentin to treat this problem and started having diarrhea, abdominal cramping, and progressively darkening stools since. Her last bowel movement was today and nearly entirely black. She complains of lightheadedness, decreased urinary frequency, and passed out last night. The patient denies any further associated signs or symptoms. This document serves as a record of services performed by Dr Chan Lopez, it was created on his behalf by Tom Pendleton, a trained medical sales consultant. The creation of this record is based on the scribes personal observations and the providers statements to her. This document has been checked and approvedby the attending provider. PAST MEDICAL HISTORY Past Surgical History: Procedure Laterality Date ??? APPENDECTOMY Past Medical History: Diagnosis Date ??? Anxiety ??? Autonomic dysfunction ??? Polycystic ovaries ??? Postconcussion syndrome CURRENT MEDICATIONS Patient's Medications New Prescriptions AZITHROMYCIN (ZITHROMAX Z-ELODIA) 250 MG TABLET Take 1 tablet (250 mg total) by mouth daily for 5 days. Take 500 mg (2 x 250 mg tablets) on day 1 followed by 250 mg (1 tablet) on days 2-5. Previous Medications ATORVASTATIN (LIPITOR) 20 MG TABLET Take 1 tablet (20 mg total) by mouth bedtime. CITALOPRAM (CELEXA) 10 MG TABLET Take 10 mg by mouth. CLOBETASOL (TEMOVATE) 0.05 % CREAM Apply topically. CLONAZEPAM (KLONOPIN) 0.5 MG TABLET Take 1 tablet (0.5 mg total) by mouth 2 (two) times a day. DESVENLAFAXINE SUCCINATE (PRISTIQ) 100 MG 24 HR TABLET Take 100 mg by mouth. FLUDROCORTISONE (FLORINEF) 0.1 MG TABLET Take 0.1 mg by mouth once daily. FLUDROCORTISONE (FLORINEF) 0.1 MG TABLET Take 2 tabs daily GIANVI, 28, 3-0.02 MG PER TABLET Take 3 tablets by mouth once daily. HYDROCODONE-ACETAMINOPHEN 5-325 MG PER TABLET Take 1 tablet by mouth every 4 (four) hours as neededfor pain. LINACLOTIDE (LINZESS) 290 MCG CAP CAPSULE Take 290 mcg by mouth. LINZESS 290 MCG CAP CAPSULE Take 290 mcg by mouth once. MECLIZINE (ANTIVERT) 25 MG TABLET TAKE 1 TABLET BY MOUTH THREE TIMES DAILY MECLIZINE (ANTIVERT) 25 MG TABLET TAKE 1 TABLET BY MOUTH THREE TIMES DAILY MULTIVITAMIN ORAL Take 1 tablet by mouth daily. TABS. OMEGA-3 FATTY ACIDS-FISH OIL 300-1,000 MG CAP Take by mouth. ONDANSETRON (ZOFRAN-ODT) 4 MG DISINTEGRATING TABLET DISSOLVE 1 TABLET (4 MG TOTAL) ON TONGUE EVERY 8 (EIGHT) HOURS NEEDED FOR NAUSEA. ONDANSETRON (ZOFRAN-ODT) 4 MG DISINTEGRATING TABLET DISSOLVE 1 TABLET (4 MG TOTAL) ON TONGUE EVERY 8 (EIGHT) HOURS NEEDED FOR NAUSEA. OXYCODONE-ACETAMINOPHEN (PERCOCET) 5-325 MG PER TABLET Take 1 tablet by mouth every 4 (four) hours as needed for pain. [id number] OXYCODONE-ACETAMINOPHEN (PERCOCET) 5-325 MG PER TABLET Take 1 tablet by mouth. PREDNISONE (DELTASONE) 10 MG TABLET PRISTIQ 100 MG 24 HR TABLET Take 100 mg by mouth once daily. ZOLMITRIPTAN (ZOMIG) 5 MG TABLET TAKE 1 TABLET AT ONSET OF MIGRAINE. MAY REPEAT ONCE AFTER 2 HOURS.MAX 10 MG/DAY. ZONISAMIDE (ZONEGRAN) 25 MG CAPSULE Take 150 mg by mouth daily. ZONISAMIDE (ZONEGRAN) 50 MG CAPSULE TAKE 4 CAPSULES BY ORAL ROUTE DAILY Modified Medications No medications on file Discontinued Medications No medications on file ALLERGIES No Known Allergies FAMILY HISTORY No family history on file. SOCIAL HISTORY Social History Social History ??? Marital status: Single Spouse name: N/A ??? Number of children: N/A ??? Years of education: N/A Social History Main Topics ??? Smoking status: Never Smoker ??? Smokeless tobacco: Never Used ??? Alcohol use Yes Comment: glass of wine 1/month ??? Drug use: No ??? Sexual activity: Yes Partners: Male Other Topics Concern ??? None Social History Narrative REVIEW OF SYSTEMS Constitutional: Denies fever, chills, weight loss, weakness, loss of appetite, Eyes: No pain, diplopia, vision loss, HENT: Denies sore throat, ear pain, dysphagia, Respiratory: No SOB, wheeze, cough, hemoptysis Cardiovascular: No CP, TURCIOS, palpitations.reports syncope last night GI: Denies nausea, vomiting. Positive for dark stools, abdominal cramping, and diarrhea. Musculoskeletal: Denies any new muscle/joint pain, swelling or loss of function. Skin: Denies rash Neurologic: Denies headache, focal weakness, sensory changes, vertigo, seizure Lymphatic: Denies swollen glands All other systems negative unless noted in HPI. PHYSICAL EXAM VITAL SIGNS: Visit Vitals ??? BP 112/69 ??? Pulse 93 ??? Temp 97.8 ??F (36.6 ??C) (Oral) ??? Resp 17 ??? Ht 5' 6 (1.676 m) ??? Wt 210 lb (95.3 kg) ??? LMP 09/06/2016 ??? SpO2 99% ??? BMI 33.89 kg/m2 General Appearance: Alert, cooperative, normal speech and facial symmetry, appears stated age, Head: Normocephalic, without obvious abnormality, atraumatic Eyes: PERRL, conjunctiva/corneas clear, EOM's intact, no nystagmus ENT: Lips, mucosa, and tongue normal; teeth and gums normal, no dysphonia or difficulty swallowing, mild bilateral frontal sinus tenderness Neck: Supple, symmetrical, trachea midline, no stridor or dysphonia, no soft tissue swelling or tenderness Chest: No tenderness or deformity, no crepitus Cardio: Tachycardic but regular rhythm, S1 and S2 normal, no murmur, rub or gallop, 2+ pulses symmetric in all extremities Pulm: Clear to auscultation bilaterally, respirations unlabored, Back: Symmetric, no curvature, ROM normal, no CVA tenderness, no spinal tenderness Abdomen: Soft, non-tender, non distended, bowel sounds active all four quadrants, no masses, no organomegaly, no rebound or guarding, no peritoneal signs Rectal: No stool, guaiac test negative. Extremities: Extremities normal, there is no tenderness to palpation , atraumatic, no cyanosis or edema, full function and range of motion, pulses equal in all extremities, normal cap refill, no joint swelling Skin: Skin color, texture, no rashes or lesions Lymph: Cervical nodes normal Neuro: Awake, alert, responsive to voice, follows commands, normal speech, no gross motor weakness or sensory loss, moves all extremities, baseline ambulation LABS Pertinent lab results reviewed in chart. Results for orders placed or performed during the hospital encounter of 10/16/16 Basic Metabolic Panel Result Value Ref Range Sodium 142 136 - 145 mmol/L Potassium 3.6 3.5 - 5.0 mmol/L Chloride 108 (H) 98 - 107 mmol/L CO2 24 22 - 31 mmol/L Anion Gap, Calculation 10 5 - 18 mmol/L Glucose 112 70 - 125 mg/dL Calcium 9.5 8.5 - 10.5 mg/dL BUN 9 8 - 22 mg/dL Creatinine 0.71 0.60 - 1.10 mg/dL GFR MDRD Af Amer >60 >60 mL/min/1.73m2 GFR MDRD Non Af Amer >60 >60 mL/min/1.73m2 INR Result Value Ref Range INR 0.99 0.90 - 1.10 Hepatic Profile Result Value Ref Range Bilirubin, Total 0.3 0.0 - 1.0 mg/dL Bilirubin, Direct <0.1 <=0.5 mg/dL Protein, Total 7.5 6.0 - 8.0 g/dL Albumin 4.3 3.5 - 5.0 g/dL Alkaline Phosphatase 99 45 - 120 U/L AST 23 0 - 40 U/L ALT 50 (H) 0 - 45 U/L Urinalysis-UC if Indicated Result Value Ref Range Color, UA Straw Colorless, Yellow, Straw, Light Yellow Clarity, UA Clear Clear Glucose, UA Negative Negative Bilirubin, UA Negative Negative Ketones, UA Negative Negative Specific Welch, UA 1.004 1.001 - 1.030 Blood, UA Negative Negative pH, UA 6.0 4.5 - 8.0 Protein, UA Negative Negative mg/dL Urobilinogen, UA <2.0 E.U./dL <2.0 E.U./dL, 2.0 E.U./dL Nitrite, UA Negative Negative Leukocytes, UA Negative Negative HM1 (CBC with Diff) Result Value Ref Range WBC 6.2 4.0 - 11.0 thou/uL RBC 4.68 3.80 - 5.40 mill/uL Hemoglobin 13.9 12.0 - 16.0 g/dL Hematocrit 41.6 35.0 - 47.0 % MCV 89 80 - 100 fL MCH 29.7 27.0 - 34.0 pg MCHC 33.4 32.0 - 36.0 g/dL RDW 13.2 11.0 - 14.5 % Platelets 236 140 - 440 thou/uL MPV 9.7 8.5 - 12.5 fL Neutrophils % 51 50 - 70 % Lymphocytes % 41 (H) 20 - 40 % Monocytes % 6 2 - 10 % Eosinophils % 2 0 - 6 % Basophils % 0 0 - 2 % Neutrophils Absolute 3.2 2.0 - 7.7 thou/uL Lymphocytes Absolute 2.6 0.8 - 4.4 thou/uL Monocytes Absolute 0.4 0.0 - 0.9 thou/uL Eosinophils Absolute 0.1 0.0 - 0.4 thou/uL Basophils Absolute 0.0 0.0 - 0.2 thou/uL ED MEDS New Prescriptions AZITHROMYCIN (ZITHROMAX Z-ELODIA) 250 MG TABLET Take 1 tablet (250 mg total) by mouth daily for 5 days. Take 500 mg (2 x 250 mg tablets) on day 1 followed by 250 mg (1 tablet) on days 2-5. ED COURSE & MEDICAL DECISION MAKING The patient was interviewed and examined. History in the chart was reviewed. Differential diagnosis includes upper GI bleed, lower GI bleed, gastritis, colitis, medication reaction. Patient is dark-colored stools but no abdominal pain other than some cramping and bloating which is likely due to her Augmentin. The stool guaiac is negative and she has no gross blood on exam. Labs ordered and personally reviewed by me. The ALT is slightly elevated from baseline. This is an undetermined significance but could be related to Augmentin. She will be started on azithromycin and will stop Augmentin. She is follow-up with her regular doctor next week for repeat liver function tests. At the conclusion of the encounter I discussed the results of all of the tests and the disposition with patient. All questions were answered. The patient acknowledged understanding and was involved in the decision making regarding the overall care plan. I discussed with patient the utility, limitations and findings of the exam/interventions/studies done during this visit as well as the list of differential diagnosis and symptoms to monitor/return to ER for. Additional verbal discharge instructions were provided. PROBLEM LIST Dark-colored stools, guaiac-negative Elevated LFT Medication reaction Sinusitis FINAL DIAGNOSIS: 1. Elevated LFTs 2. Dark stools 3. Sinusitis I, Dr. Chan Kumar, personally performed the services described in this documentation , as scribed by Tom Pendleton in my presence, and it is both accurate and complete. Chan Kumar MD 10/16/162029 ICAL INSTRUMENT MECHANIC documented in this encounter Plan of Treatment Upcoming Encounters Date Type Specialty Care Team Description 08/19/2022 Office Visit Gastroenterology Mirza Vasquez MD [address] [place] [address] [phone] (Wo rk) documented as of this encounter Visit Diagnoses Diagnosis Elevated LFTs Other abnormal blood chemistry Dark stools Nonspecific abnormal finding in stool co ntents Sinusitis Unspecified sinusitis (chronic) documented in this encounter Care Teams Community Development Coordinator Relationship Specialty Start Date End Date Alfonso Tang PCP - General Family Practice 09/04/13 08/12/21 Dayanara Bee MD MD Pediatrics 12/26/[address] [place] [address] [address] [place] [address] Min Lange MD MD Neurology 03/30/16 documented as of this encounter
--- OUTSIDE RECORDS SUMMARY | 2022-06-30 09:50 | XMS_ITS | Encounter Summary ---
:1990 Author Organization [facility] Address [address] [place] [address]. [place] [address] Care Team Providers Name Role Phone Alfonso Tang Primary Care Provider Unavailable Dayanara Bee MD Unavailable Min Lange MD Unavailable Unavailable Reason for Visit Reason Comments Sleep Problem STM Encounter Details Date Type Department Care Team Description 08/11/2016 Documentation Only [facility] Sleep Sleep Problem (STM) [facility] Virtual Care [address] [place] [address], [address] [place] [address] Social History Tobacco Use Types Packs/Day Years Used Date Smoking Tobacco: Never Smokeless Tobacco: Never Alcohol Use Standard Drinks/Week Comments No 0 (1 standard drink = 0.6 oz pure alcoho l) Sex Assigned at Date Recorded 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 and Pt to have 30 day STM visit. Device settings: EPAP Min Auto CPAP/ASV: 5 (CPAP Min Auto CPAP/ASV) EPAP Max Auto CPAP/ASV: 15 (CPAP Max Auto CPAP/ASV) Avg EPAP pressure (90th %ile) 14 day average (Patel): 8.2cm H20 Objective measures: 14 day rolling measures ? ? Compliance (Goal >70%) --% compliance greater than four hours rolling average 14 days: 7.14 % ? ? Leak (Goal < 10%) --Average % of night in large leak Rolling Average 14 days (PATEL):0% ? ? AHI (Goal < 5) --AHI Rolling Average 14 Day: 3.16 ? ? Usage (Goal >240) --Time mask on face 14 day average: 77 min ULAR NURSE documented in this encounter Plan of Treatment Upcoming Encounters Date Type Specialty Care Team Description 08/19/2022 Office Visit Gastroenterology Mirza Vasquez MD [address] [place] [phone] (Wo rk) documented as of this encounter Visit Diagnoses Not on filedocumented in this encounter Care Teams Dealer Development Manager Relationship Specialty Start Date End Date Alfonso Tang PCP - General Family Practice 09/04/13 08/12/21 Dayanara Bee MD MD Pediatrics 12/26/[address] [place] [address] [address] [place], [place] [phone] Min Lange MD MD Neurology 03/30/16 documented as of this encounter
--- OUTSIDE RECORDS SUMMARY | 2022-06-30 09:50 | XMS_ITS | Encounter Summary ---
:1990 Author Organization [facility] Address [address] [place] [address] Care Team Providers Name Role Phone Alfonso Tang Primary Care Provider Unavailable Dayanara Bee MD Unavailable Min Lange MD Unavailable Unavailable Marlo Madsen MD Unavailable Reason for Visit Reason Onset Date Comments Appointment 11/02/2016 gi Encounter Details Date Type Department Care Team Description 11/02/2016 Telephone [facility] Gastroenterology and Swathi Bryan, Appointment (gi) [facility] PhD [address] [place], [place] [id number] [phone] Social History Tobacco Use Types Packs/Day Years Used Date Smoking Tobacco: Never Smokeless Tobacco: Never Alcohol Use Standard Drinks/Week Comments No 0 (1 standard drink = 0.6 oz pure alcoho l) Sex Assigned at Date Recorded 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 documented as of this encounter Miscellaneous Notes Telephone Encounter - Ekta Corona - 11/02/2016 2:09 PM CST lvm for patient to call me to rs appointment with latricia Bryan CONDITIONING MANAGER documented in this encounter Plan of Treatment Upcoming Encounters Date Type Specialty Care Team Description 08/19/2022 Office Visit Gastroenterology Mirza Vasquez MD [address] [place] [address] (Wo rk) documented as of this encounter Visit Diagnoses Not on filedocumented in this encounter Care Teams Citizen Participation Specialist Relationship Specialty Start Date End Date Alfonso Tang PCP - General Family Practice 09/04/13 08/12/21 Dayanara Bee MD MD Pediatrics 12/26/14 [address] [facility] [address] [place] [address] Min Lange MD MD Neurology 03/30/16 Marlo Madsen MD MD Cardiology 10/27/16 [address] [facility] [address] [place], [place] [phone] documented as of this encounter
--- OUTSIDE RECORDS SUMMARY | 2022-06-30 09:50 | XMS_ITS | Encounter Summary ---
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 Min Lange MD [address] [place] [address] 3 60 [place] [address] Referral ID Status Reason Start Date Expiration Date Visits Requ ested Visits Authorized [id number] Closed 08/28/2016 08/28/2017 1 1 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 SHAVER MECHANIC Reason for Visit Reason Comments RECHECK 3 mo f/u, med check, migrain es Encounter Details Date Type Department Care Team Description 08/28/2016 Office Visit Min [place], Migraine without aura and without status migrainosus, not intractable (Primary Dx); [facility] Intract able 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 [facility] [address] [place] [address], [address] [place] [address] Social History Tobacco Use Types Packs/Day Years Used Date Smoking Tobacco: Never Smokeless Tobacco: Never Tobacco Cessation: Counseling Given: No Alcohol Use Standard Drinks/Week Comments No 0 (1 standard drink = 0.6 oz pure alcoho l) Sex Assigned at Date Recorded Female 10/31/2021 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 documented as of this encounter Last Filed Vital Signs Vital Sign Reading Time Taken Comments Blood Pressure 124/80 08/28/2016 12:45 PM ELECTRIC SHAVER MECHANIC Pulse 82 08/28/2016 12:45 PM ELECTRIC SHAVER MECHANIC Temperature - - Respiratory Rate 18 08/28/2016 12:45 PM ELECTRIC SHAVER MECHANIC Oxygen Saturation - - Inhaled Oxygen Concentration - - Weight - - Height - - Body Mass Index - - documented in this encounter Progress Notes Min Lange MD - 08/28/2016 1:20 PM CST August 28, 2016 Alfonso Tang MD [address] [place] [address] RE:Latricia Machado :1990 Dear Alfonso: I saw Latricia Machado back. This is followup for migraine headaches. As you know, she also has a history of dysautonomia. Since I last saw her, she did see Dr. Adelso Sarkar from Sleep Medicine. She was diagnosed with sleep apnea. She has an AutoPAP device now and has been using it for about a month. She can only wear itfor about 2 hours. She feels she may need to get a full mask better tolerated and she is going to betalking to the provider about that. Using the AutoPAP has not helped her headaches. Her headaches are becoming more problematic. She will get a severe migraine every 2 weeks or so and these can last 2-5 days. She will also have a milder headache 2-3 days a week for which she takes ibuprofen. She continues on zonisamide, which initially did help her headaches. The current dose is 150 mg a day. She did try DHE nasal spray and it was ineffective. I reviewed abortive treatments that have been tried and failed in the past and these include DHE nasal spray, Relpax, oral Imitrex, injectable Imitrex, Zomig and Midrin. She has been tried on several preventative drugs including Topamax, Depakote and gabapentin. I am reluctant to use a beta angella with her history of dysautonomia. She is already on 2 antidepressant drugs (citalopram and Pristiq). I discussed other treatment options. She is going to increase her zonisamide dose to 200 mg a day. She has tolerated the drug well. I discussed Botox injections, acupuncture and the Cefaly device. She states the Cefaly device would be too expensive for her. She might look into acupuncture. She now is interested in pursuing at least a consultation with Dr. Melgar or Ayush concerning Botox injections and I did put in a referral for her. She has been very judicious in using Percocet and has only used 10 pills since March. I did refill that for her as a rescue medication. I will be seeing her back in the spring. Sincerely, MD MIN Le MD MT: [place] Name: LATRICIA MACHADO MRN: [id number] Account: [id number] : 1990 Service Date: 08/28/2016 Document: [id number] TRIC SHAVER MECHANIC documented in this encounter Nursing Notes Slim Butt LPN - 08/28/2016 12:46 PM CST Chief Complaint Patient presents with ??? RECHECK 3 mo f/u, med check, migraines Slim Butt LPN TRIC SHAVER MECHANIC documented in this encounter Plan of Treatment Upcoming Encounters Date Type Specialty Care Team Description 08/19/2022 Office Visit Gastroenterology Mirza Vasquez MD [address] [place] [address] [id number] (Wo rk) Scheduled Referrals Name Type Priority Associated Diagnoses Order S chedule PHYSIATRY REFERRAL Referral Routine Intractable chronic mi graine Ordered: 08/28/2016 without aura and without status migrainosus documented as of this encounter Visit Diagnoses Diagnosis Migraine without aura and without status migrainosus, not intractable - Primary Migraine without aura, without mention o f intractable migraine without mention of status migrainosus Intractable 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 aur a and without status migrainosus Chronic migraine without aura, with intr actable migraine, so stated, without mention of status migrainosus documented in this encounter Care Teams Paper Pattern Inspector Relationship Specialty Start Date End Date Alfonso Tang PCP - General Family Practice 09/04/13 08/12/21 Dayanara Bee MD MD Pediatrics 12/26/[address] [place] [address] [address] [place] [address] Min Lange MD MD Neurology 03/30/16 documented as of this encounter
--- OUTSIDE RECORDS SUMMARY | 2022-06-30 09:50 | XMS_ITS | Encounter Summary ---
:1990 Author Organization [facility] Address [address] [place] [address] Care Team Providers Name Role Phone Alfonso Tang Primary Care Provider Unavailable Dayanara Bee MD Unavailable Min Lange MD Unavailable Unavailable Marlo Madsen MD Unavailable Mel Buckley RN Unavailable Encounter Details Date Type Department Care Team Description 10/26/2016 [facility] Alfonso Tang RETIRED [facility] Provider, Historical [address] [address] Social History Tobacco Use Types Packs/Day Years Used Date Smoking Tobacco: Never Smokeless Tobacco: Never Alcohol Use Standard Drinks/Week Comments No 0 (1 standard drink = 0.6 oz pure alcoho l) Sex Assigned at Date Recorded 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 encounter Plan of Treatment Upcoming Encounters Date Type Specialty Care Team Description 08/19/2022 Office Visit Gastroenterology Mirza Vasquez MD [address] [place] [address] [phone] (Wo rk) documented as of this encounter Visit Diagnoses Not on filedocumented in this encounter Care Teams Geothermal Installer Relationship Specialty Start Date End Date Alfonso Tang PCP - General Family Practice 09/04/13 08/12/21 Dayanara Bee MD MD Pediatrics 12/26/14 [address] [facility] [address] [place] [address] Min Lange MD MD Neurology 03/30/16 Marlo Madsen MD Cardiology 10/27/16 [place] [facility] [address] [place], [place] [phone] Mel Buckley, RN Nurse Coordinator Physical Medicine and 12/02/16 Rehabilitation documented as of this encounter
--- OUTSIDE RECORDS SUMMARY | 2022-06-30 09:50 | XMS_ITS | Encounter Summary ---
:1990 Author Organization [facility] Address [address] [place] [address]. [place] [address] Care Team Providers Name Role Phone Alfonso Tang Primary Care Provider Unavailable Dayanara Bee MD Unavailable Min Lange MD Unavailable Unavailable Reason for Visit Reason Comments Sleep Problem [facility] Encounter Details Date Type Department Care Team Description 08/31/[address] 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 VISIT Message left for patient to return call Assessment: Pt not meeting objective benchmarks for compliance Action plan: Waiting for patient to return call. and 2 week [facility] recheck appt scheduled Patient has afollow up visit with Dr. Sarkar on 09/16/2015. Device settings: EPAP Min Auto CPAP: 5 (CPAP Min Auto CPAP) EPAP Max Auto CPAP 15 (CPAP Max Auto CPAP) Avg EPAP pressure (90th %ile) 14 day average (Patel): 7.4cm H20 Objective measures: 14 day rolling measures ? ? Compliance (Goal >70%) --% compliance greater than four hours rolling average 14 days: 7.14 % ? ? Leak (Goal < 10%) --Average % of night in large leak Rolling Average 14 days (PATEL): 0% last data upload AHI (Goal < 5) --AHI Rolling Average 14 Day: 1.04 last data upload ? ? Usage (Goal >240) --Time mask on face 14 day average: 91 min UTER REPAIR TECHNICIAN documented in this encounter Plan of Treatment Upcoming Encounters Date Type Specialty Care Team Description 08/19/2022 Office Visit Gastroenterology Mirza Vasquez MD [address] [place] [address] (Wo rk) documented as of this encounter Visit Diagnoses Not on filedocumented in this encounter Care Teams Seaman Relationship Specialty Start Date End Date Alfonso Tang PCP - General Family Practice 09/04/13 08/12/21 Dayanara Bee MD MD Pediatrics 12/26/14 [address] [facility] 75 [place] [address] Min Lange MD MD Neurology 03/30/16 documented as of this encounter
--- OUTSIDE RECORDS SUMMARY | 2022-06-30 09:50 | XMS_ITS | Encounter Summary ---
:1990 Author Organization [facility] Address [address] [place] [address] Care Team Providers Name Role Phone Alfonso Tang Primary Care Provider Unavailable Dayanara Bee MD Unavailable Min Lange MD Unavailable Unavailable Reason for Visit Reason Onset Date Comments Refill Request 09/04/2016 Encounter Details Date Type Department Care Team Description 09/04/2016 [facility]ill [facility] [place] [phone] Social History Tobacco Use Types Packs/Day Years Used Date Smoking Tobacco: Never Smokeless Tobacco: Never Alcohol Use Standard Drinks/Week Comments No 0 (1 standard drink = 0.6 oz pure alcoho l) Sex Assigned at Date Recorded 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 documented as of this encounter Plan of Treatment Upcoming Encounters Date Type Specialty Care Team Description 08/19/2022 Office Visit Gastroenterology Mirza Vasquez MD [address] [place] [address] (Wo rk) documented as of this encounter Visit Diagnoses Diagnosis Autonomic dysfunction - Primary Unspecified disorder of autonomic nervou s system documented in this encounter Care Teams Circuit Breaker Supervisor Relationship Specialty Start Date End Date Alfonso Tang PCP - General Family Practice 09/04/13 08/12/21 Dayanara Bee MD MD Pediatrics 12/26/[address] [place] [address] 75 [place], [place] [phone] Min Lange MD MD Neurology 03/30/16 documented as of this encounter
--- OUTSIDE RECORDS SUMMARY | 2022-06-30 09:50 | XMS_ITS | Encounter Summary ---
:1990 Author Organization [facility] Address [address] [place] [address] Care Team Providers Name Role Phone Alfonso Tang Primary Care Provider Unavailable Dayanara Bee MD Unavailable Min Lange MD Unavailable Unavailable Marlo Madsen MD Unavailable Mel Buckley RN Unavailable Encounter Details Date Type Department Care Team Description 10/21/2016 Records - [facility] CONVERSION Provider, Zo campbell Social History Tobacco Use Types Packs/Day Years Used Date Smoking Tobacco: Never Smokeless Tobacco: Never Alcohol Use Standard Drinks/Week Comments No 0 (1 standard drink = 0.6 oz pure alcoho l) Sex Assigned at Date Recorded 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 as of this encounter Plan of Treatment Upcoming Encounters Date Type Specialty Care Team Description 08/19/2022 Office Visit Gastroenterology Mirza Vasquez MD [address] [place] [address] (Wo rk) documented as of this encounter Visit Diagnoses Not on filedocumented in this encounter Care Teams Circuit Manager Relationship Specialty Start Date End Date Alfonso Tang PCP - General Family Practice 09/04/13 08/12/21 Dayanara Bee MD MD Pediatrics 12/26/[address] [place] [address] 75 [place] [address] Min Lange MD MD Neurology 03/30/16 Marlo Madsen MD Cardiology 10/27/[address] [place] [address] Mel Buckley, DIAZ Nurse Coordinator Physical Medicine and 12/02/16 Rehabilitation documented as of this encounter
--- OUTSIDE RECORDS SUMMARY | 2022-06-30 09:50 | XMS_ITS | Encounter Summary ---
:1990 Author Organization [facility] Address [address] [place] [address] Care Team Providers Name Role Phone Alfonso Tang Primary Care Provider Unavailable Dayanara Bee MD Unavailable Min Lange MD Unavailable Unavailable Marlo Madsen MD Unavailable Mel Buckley RN Unavailable Reason for Visit Reason Comments Hospital F/U [facility] 10/16/16, Dx Dizzines s and Black stools Encounter Details Date Type Department Care Team Description 10/19/2016 Office Visit - [facility] Alfonso Tang RETIRED Abnormal liver enzymes; [facility] Provider, Historical Sinusitis; 1981 [facility] Autonomic n ervous system disorder; [address] [place] [address] Social History Tobacco Use Types Packs/Day Years Used Date Smoking Tobacco: Never Smokeless Tobacco: Never Alcohol Use Standard Drinks/Week Comments No 0 (1 standard drink = 0.6 oz pure alcoho l) Sex Assigned at Date Recorded Female 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 Should been seen in the emergency room for some abdominal cramping as well as some black stools. This is associated with dizziness and afeeling of passing out. She felt very weak. She had been on Augmentin for a sinus infection. She developed some diarrhea and black stools. Evaluation revealed a negative guaiac. Her hemoglobin was stable. It was thought that she was having side effects to the Augmentin. She was switched to azithromycin. Her abdominal symptoms now are improving. She has no further black stools. Her liver enzymes are abnormal in the emergency room so she needs this rechecked today. She also is here for discussion of her disks autonomic syndrome. She's had a prolonged history of chronic abdominal pain, nausea, dizziness, syncopal episodes and bowel irregularities. She's had a difficult time with temperature regulation as well. Her blood pressure has been difficult to control. It's quite variable. She has a history of sleep apnea as well as migraines as well. These conditions are making it impossible for her to be able to have productive employment. She cannot predict when she is going to have symptoms. His symptoms are almost constant. If she would stand for prolonged period of time she will get dizzy and feel like she passes out. She gets very weak. She gets dizzy. She has a difficult time eating and has a lot of nausea. She wonders whether she should file for disability. She is going to school for a masters in counseling but is finding it difficult to be able to sit in class for a prolonged period of time. She also has a difficult time studying and keeping up with work from school. Objective: HEENT: Pupils equal round and reactive to light. Pharynx clear. No erythema noted. Lungs: Lungs are clear. Patient's in no obvious respiratory distress today. Cardiac: There is a regular rhythm present. No murmur heard. Abdomen: Abdomen is soft. No rebound, guarding or rigidity present. Bowel sounds are active throughout. Extremities: 1+ edema noted in both feet and pretibial areas. Skin was warm and dry today. Neurologic: Patient was alert and oriented. Motor strength appeared equal in upper and lower extremities. Sensory exam was normal today. Patient's gait was a little unsteady as she gets lightheaded when she stands. Assessment: 1. Diarrhea with mild abdominal pain and cramping secondary to side effect of Augmentin 2. Recent sinusitis 3. Dysautonomic syndrome 4. Migraine headaches 5. Sleep apnea with overwhelming fatigue 6. Elevated liver enzymes Plan: The patient will stay off of Augmentin. She will complete her course of azithromycin for her sinus infection. We discussed disability at length. I feel that would be a good step for her as she is unable to have any gainful employment due to her multiple medical symptoms. There really is no cure for her condition so her future looks fairly bleak in terms of maintaining employment. She is still lookingfor her to try and get her masters degree. She realizes it may be difficult to maintain any kind of study habits due to her symptoms. I will write her a letter stating I agree with her filing for disability. She will follow-up here as needed. Liver enzymes are repeated today. Patient will be called abnormalities. documented in this encounter Plan of Treatment Upcoming Encounters Date Type Specialty Care Team Description 08/19/2022 Office Visit Gastroenterology Mirza Vasquez MD [address] [place] [address] [phone] (Wo rk) documented as of this encounter Visit Diagnoses Diagnosis Abnormal liver enzymes Nonspecific elevation of levels of trans aminase or lactic acid dehydrogenase (LDH) Sinusitis Unspecified sinusitis (chronic) Autonomic nervous system disorder Unspecified disorder of autonomic nervou s system Migraine Migraine, unspecified, without mention o f intractable migraine without mention of status migrainosus documented in this encounter Care Teams Waistband Setter Lockstitch Relationship Specialty Start Date End Date Alfonso Tang PCP - General Family Practice 09/04/13 08/12/21 Dayanara Bee MD MD Pediatrics 12/26/[address] [place] [address] [id number] Min Lange MD MD Neurology 03/30/16 Marlo Madsen MD Cardiology 10/27/[address] [place] [address] Mel Buckley, DIAZ Nurse Coordinator Physical Medicine and 12/02/16 Rehabilitation documented as of this encounter
--- OUTSIDE RECORDS SUMMARY | 2022-06-30 09:50 | XMS_ITS | Encounter Summary ---
:1990 Author Organization [facility] Address [address] [place] [address] Care Team Providers Name Role Phone Alfonso Tang Primary Care Provider Unavailable Dayanara Bee MD Unavailable Min Lange MD Unavailable Unavailable Marlo Madsen MD Unavailable Encounter Details Date Type Department Care Team Description 11/18/2016 Orders Only [facility], Constipation ([facility] RN Dx) [address] [facility] [address] [place] [address] Social History Tobacco Use Types Packs/Day Years Used Date Smoking Tobacco: Never Smokeless Tobacco: Never Alcohol Use Standard Drinks/Week Comments No 0 (1 standard drink = 0.6 oz pure alcoho l) Sex Assigned at Date Recorded Female 10/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 documented as of this encounter Plan of Treatment Upcoming Encounters Date Type Specialty Care Team Description 08/19/2022 Office Visit Gastroenterology Mirza Vasquez MD [address] [place] [address] (Wo rk) documented as of this encounter Visit Diagnoses Diagnosis Constipation - Primary Unspecified constipation documented in this encounter Care Teams Expansion Envelope Maker Hand Relationship Specialty Start Date End Date Alfonso Tang PCP - General Family Practice 09/04/13 08/12/21 Dayanara Bee MD MD Pediatrics 12/26/[address] [place] [address], [place] [address] Min Lange MD MD Neurology 03/30/16 Marlo Madsen MD MD Cardiology 10/27/16 [address] [facility] [address] [place] [address] documented as of this encounter
--- OUTSIDE RECORDS SUMMARY | 2022-06-30 09:50 | XMS_ITS | Encounter Summary ---
:1990 Author Organization [place] Address [address] [place] [phone] Care Team Providers Name Role Phone Alfonso Tang Primary Care Provider Unavailable Dayanara Bee MD Unavailable Min Lange MD Unavailable Unavailable Reason for Referral Diagnostic Procedure Outpatient - Closed Specialty Diagnoses / Procedures Referred By Contact Refer red To Contact Diagnoses Constipation, unspecified constipation type [facility] [address] [place] [address] [address] [place] [address] Referral ID Status Reason Start Date Expiration Date Visits Requ ested Visits Authorized [id number] Closed 10/21/2016 10/21/2017 1 1 STOCK COUNTER Reason for Visit Reason Comments RECHECK Increased Nausea,vomiting an d Diarrhea VS constipation. Encounter Details Date Type Department Care Team Description 10/21/2016 Office Visit [facility] Gastroenterology V[place], No n-intractable vomiting with nausea, unspecified vomiting type (Primary Dx); and [facility] Abby Constipation, unspecified co nstipation type; [address] [facility] MD Leesa History of colonic polyps 4th Floor [address] [place] [phone] Social History Tobacco Use Types Packs/Day Years Used Date Smoking Tobacco: Never Smokeless Tobacco: Never Alcohol Use Standard Drinks/Week Comments No 0 (1 standard drink = 0.6 oz pure alcoho l) Sex Assigned at Date Recorded Female 10/31/2021 7:59 AM 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 documented as of this encounter Last Filed Vital Signs Vital Sign Reading Time Taken Comments Blood Pressure 144/84 10/21/2016 8:58 AM 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 Pulse 83 10/21/2016 8:58 AM 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 Temperature - - Respiratory Rate - - Oxygen Saturation 98% 10/21/2016 8:58 AM 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 Inhaled Oxygen Concentration - - Weight 94.8 kg (209 lb) 10/21/2016 8:58 AM 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 Height 167.6 cm (5' 6) 10/21/2016 8:58 AM 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 Body Mass Index 33.73 10/21/2016 8:58 AM 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 documented in this encounter Patient Instructions Patient InstructionsAbby Vasquez MD - 10/21/2016 9:37 AM 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 1. Schedule ondansetron (Zofran) every night before bed. 2. Take omeprazole (Prilosec) every night before bed. 3. Take metoclopramide 5-10 mg for severe episodes of nausea/vomiting to attempt to avoid ED visit. 4. Continue to work on your sleep issues as this can greatly impact nausea. 5. Continue to work on migraine control as this can drive nausea/vomiting as well. 6. Work on a maintaining a varied diet - bland fruits exist (bananas, watermelon, etc). 7. A high fiber diet with plenty of fluids (up to 8 glasses of water daily) is suggested to relieve these symptoms. Metamucil or Citrucel, 1 tablespoon (or 4 capsules) once or twice daily can be used to keep bowels regular if needed. 8. Schedule an appointment with GI health psychologist, Latricia Bryan. 9. If you have any questions, please don't hesitate to contact our GI RN Clinic Coordinators at (select option #3 for nurse line). 10. Schedule a colonoscopy. STOCK COUNTER documented in this encounter Progress Notes Abby Vasquez MD - 10/21/2016 9:10 AM CST GI CLINIC VISIT CC: follow-up IBS-C and nausea ASSESSMENT/PLAN: (R11.2) Non-intractable vomiting with nausea, unspecified vomiting type (primary encounter diagnosis) Comment: Noted background of dysautonomia - though no prior pronounced delay in gastric emptying on prior testing or as manifested in the past (no unintentional weight loss, vomiting of meals, etc). Though given current symptoms, will recommend supportive cares for such as outlined below. Certainly migraine HAs contributing, particularly to need for ED visits. Pt working with neurology to aggressively manage this. More frequent nocturnal nausea events with re-start of CPAP - potential contribution of increased gastric distention from forced aerophagia with necessary use of CPAP. Significant issues with non-restorative sleep and insomnia which can contribute and amplify nausea/vomiting. Functional vomiting, cyclical vomiting, etc less likely with her presentation of waking up from sleep with nausea ([facility] generally a more centrally-driven process with improvement with sleep/sedation). Associated symptoms of heat intolerance, breathing issues which would suggest contributors from her other co-morbidities. Will work to prophylactically address nocturnal symptoms with scheduled antiemetics and offer abortive therapy with metoclopramide. Plan: - schedule ondansetron (Zofran) every night before bed. - take omeprazole (Prilosec) every night before bed. - take metoclopramide 5-10 mg for severe episodes of nausea/vomiting to attempt to avoid ED visit. Med discussed. - continue to work on your sleep issues as this can greatly impact nausea. - continue to work on migraine control as this can drive nausea/vomiting as well. - work on a maintaining a varied diet - bland fruits exist (bananas, watermelon, etc). - schedule an appointment with GI health psychologist, Latricia Bryan. (K59.00) Constipation, unspecified constipation type Comment: Stooling daily now with no periods without BMs, though alternating from loose to [place] 1. Pt morebothered by firmer stools with straining. Reviewed again interventions for optimizing stool consistency. Plan: - continue Linzess 290 mcg daily - recommend high fiber diet and up to 8 glasses of water daily - recommend use of Metamucil or Citrucel, 1 tablespoon (or 4 capsules - may be easier to tolerate with nausea) once or twice daily - titrate to stool consistency as discussed (Z86.010) History of colonic polyps Comment: Pt underwent early screening due to family history of colon cancer and polyps. One TA foundand removed. Has been evaluated by genetics counselor (encounter 01/01/15), not felt to be at risk for Verduzco syndrome based on current data. Plan: - as per genetics recs: surveillance colonoscopy in 2-3 years ([id number]), then Q 3yrs for at least two colonoscopies --> colonoscopy ordered to be done within the year as patient's convenience RTC 4 months It was a pleasure to participate in the care of this patient; please contact us with any further questions. A total of 40 minutes was spent with this patient, >50% of which was counseling regarding the above delineated issues. Abby Vasquez MD [employer] Salesperson[employer]man Division of Gastroenterology, Hepatology and Nutrition [facility] HPI: Ms. Machado is a 26 year old female with dysautonomia, frequent migraine HAs, chronic diffuse abdominal pain, nausea, and prior adenomatous polyp who returns to GI clinic for follow-up of her IBS-C and multifactorial nausea. She was previously followed by Dr. Dawson of GI. Her initial visit with this securities underwriter was on 10/16/2015 and she was last seen in GI clinic on 04/15/2016. 1. IBS-C Her history as summarized from my prior documentation: ?? She had significant chronic constipation for years, going for longer than a week without a bowel movement. Associated symptoms included abdominal pain as well as rectal discomfort and painful, bleeding anal fissures. She has been maintained on (full-dose 290 mcg) Linzess for over a year which results in stooling several times a week. About every two weeks she will have a day where she produces three looser/more liquid stools with cramping. At her last visit in Apr 2016, she noted her stools were alternating between 3-4 loose stools in a day to hard, firm stools with straining 1-2 times a day with continued use of Linzess. We increased her hydration (as she'd increased her physicial activity in an effort to lose weight) and added fiber to her daily regimen. Miralax was to be used for periods ofmore pronounced constipation. Today, things are not much changed. Ms. Machado continues on Linzess 290 mcg. In a week will have3 days where she will pass one hard stool, [place] 1, with straining. The other 4 days of the week she will have looser stools - 3-4 BMs throughout the day. These pass easily without urgency and without fecal incontinence. She no longer has days without any stools. Ms. Machado was not able to institute the changes of hydration, fiber, etc into her diet as previously discussed. She is overall ok with her stools and reports her more recent concern is her nausea. 2. Nausea, vomiting Her history as summarized from my prior documentation: This has been felt to be multifactorial in origin and was initially worked up at [place]. Prior GES wasnormal. Prior head imaging (brain MRI) has been unremarkable. She was previously on metoclopramide, but more recently has been maintained on ondansetron. The nausea did not improved with regulation of her stooling pattern. It seems most days she does well without significant nausea and is able to tolerate po intake and maintain her weight. She reports nausea may develop if she goes more than a few hours without eating and thus she ensures she has frequent snacks to limit this. Once a week she'll experience daytime nausea which is managed with one dose of ondansetron. Interestingly she reports nightt dez episodes where she will awaken feeling very hot and clammy and note nausea. She will take all her covers off, take an ondansetron and is able to fall asleep again. She denies any other autonomic symptoms during this time. She denies any reflux-related symptoms and did trial an OTC antacid at night to see if this prevented the episodes; it did not. Today, Ms. Machado reports that her dysautonomia has worsened in the last 3 months and with this she has experienced more nausea with vomiting. She states her dysautomia issues have led to more frequent syncopal episodes and severe migraines which last 2-4 days. She has been working with Dr. Madsen, of cardiology, and her PCP, Dr. Tang on these issues. Her florinef was recently increased (from0.1 --> 0.2 daily)though she hasn't yet noted a change. She is now working with Dr. Lange of neurology in order to optimize her migraine control. Ms. Machado states she has been seen in the ED formigraine pain and/or migraine-related vomiting. She was given metoclopramide which she found beneficial. Ms. Machado relates most of her increased nausea and vomiting to migraine episodes, though she has had some times where nausea has occurred independent of a GARNER. With her nausea she continues to havedays of pronounced symptoms (three nausea episodes a day) and other days when she is symptom-free.She believes she has nausea on most days of the week (as opposed to once weekly previously). She previously reported occasional nocturnal nausea but now is reporting most nausea episodes occur at night, and she feels she wakes up due to nausea. As before the episodes are accompanied by feeling hot but newly bring a sense of difficulty breathing which she further characterizies as a feeling like there isn't enough air in the room. She may vomit, and if she does she brings up what she had for dinner that night. Use of ondansetron helps, but may not stop the nausea completely. She has not lost any weight despite her nausea, reporting her weight has increased since her last visit, though she worries that she is eating less. She is restricting her foods eating primarily cereal, protein bars, and salads. She has been following with Dr. Sarkar of sleep medicine, and has recently restarted use of regularC-PAP. Currently she starts each night on CPAP, and awakens after 2-3 hrs on CPAP, reportedly due tonausea and experiences the sense of difficulty breathing. She will take an ondansetron most night. She typically has difficulty falling back asleep and does not put her CPAP back on. She has not noted increased eructation after taking off her CPAP. ROS: Remainder of comprehensive ROS is negative. PROBLEM LIST Patient Active Problem List Diagnosis Date Noted ??? Irritable bowel syndrome without diarrhea 04/15/2016 Priority: Medium ??? Syncope 01/25/2014 Priority: Medium ??? Intractable 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 aura 10/05/2013 Problem list name updated by automated process. Provider to review ??? Autonomic nervous system disorder 10/05/2013 ??? Abdominal pain, generalized 10/05/2013 PERTINENT MEDICATIONS: Current Outpatient Prescriptions Medication ??? Azithromycin (ZITHROMAX Z-ELODIA PO) ??? Atorvastatin Calcium (LIPITOR PO) ??? fludrocortisone (FLORINEF) 0.1 MG tablet ??? [...] ??? Multiple Vitamins-Minerals (WOMENS MULTIVITAMIN PLUS PO) ??? [place]-3 Fatty Acids (OMEGA-3 FISH OIL PO) No current facility-administered medications for this visit. PHYSICAL EXAMINATION: Vitals BP 144/84 mmHg Pulse 83 Ht 1.676 m (5' 6) Wt 94.802 kg (209 lb) BMI 33.75 kg/m2 SpO2 98% LMP 09/08/2016 Wt Wt Readings from Last 2 Encounters: 10/21/16 94.802 kg (209 lb) 09/16/16 94.348 kg (208 lb) Gen: Pt sitting up in NAD, interactive and cooperative on exam Eyes: sclerae anicteric, no injection ENT: MMM Cardiac: RRR, nl S1, S2 Resp: Clear on anterior exam GI: Normoactive BS, abd soft, nontender Skin: Warm, dry, no jaundice, nails appear healthy Neuro: alert, oriented, answers questions appropriately PERTINENT STUDIES: Orders Only on 05/05/2016 Component Date Value Ref Range Status ??? WBC 04/10/2016 5.2 Final ??? RBC Count 04/10/2016 4.29 Final ??? Hemoglobin 04/10/2016 13.3 11.7 - 15.7 g/dL Final ??? Hematocrit 04/10/2016 38.9 Final ??? MCV 04/10/2016 91 Final ??? MCH 04/10/2016 31.1 Final ??? MCHC 04/10/2016 34.2 Final ??? RDW 04/10/2016 12.2 Final ??? Platelet Count 04/10/2016 232 150 - 450 10^9/L Final ??? Sodium 04/10/2016 137 Final ??? Potassium 04/10/2016 3.9 Final ??? Chloride 04/10/2016 103 Final ??? CO2, TOTAL 04/10/2016 24 Final ??? Anion Gap 04/10/2016 10 Final ??? Glucose 04/10/2016 82 70 - 99 mg/dL Final ??? Creatinine 04/10/2016 0.72 Final ??? Calcium 04/10/2016 9.3 Final documented in this encounter Nursing Notes Angelita Arteaga LPN - 10/21/2016 8:59 AM CST Chief Complaint Patient presents with ??? RECHECK Increased Nausea,vomiting and Diarrhea VS constipation. Filed Vitals: 10/21/16 0858 BP: 144/84 Pulse: 83 Height: 1.676 m (5' 6) Weight: 94.802 kg (209 lb) SpO2: 98% Body mass index is 33.75 kg/(m^2). STOCK COUNTER documented in this encounter Plan of Treatment Upcoming Encounters Date Type Specialty Care Team Description 08/19/2022 Office Visit Gastroenterology Mirza Vasquez MD [address] [place] [id number] (Wo rk) Scheduled Referrals Name Type Priority Associated Diagnoses Order S chedule GASTROENTEROLOGY ADULT REF Referral Routine Constipation, Ordered: PROCEDURE ONLY unspecified 10/21/2016 constipation type documented as of this encounter Visit Diagnoses Diagnosis Non-intractable vomiting with nausea, un specified vomiting type - Primary Constipation, unspecified constipation t ype History of colonic polyps Personal history of colonic polyps documented in this encounter Care Teams Pilot Control Operator Helper Relationship Specialty Start Date End Date Alfonso Tang PCP - General Family Practice 09/04/13 08/12/21 Dayanara Bee MD MD Pediatrics 12/26/[address] [place] [address] [address] [place] [address] Min Lange MD MD Neurology 03/30/16 documented as of this encounter
--- OUTSIDE RECORDS SUMMARY | 2022-06-30 09:50 | XMS_ITS | Encounter Summary ---
:1990 Author Organization [place] Address [address] [place] [address] Care Team Providers Name Role Phone Alfonso Tang Primary Care Provider Unavailable Dayanara Bee MD Unavailable Min Lange MD Unavailable Unavailable Marlo Madsen MD Unavailable Mel Buckley RN Unavailable Reason for Visit Reason Comments Zi had an IV in her arm at [facility] a week ago, now there is a hard spot on arm and arm is throbbing Encounter Details Date Type Department Care Team Description 10/24/2016 [facility] Alfonso Tang RETIRED Zi (had an IV in [facility] Provider, Historical her arm at [address] 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 documented as of this encounter Plan of Treatment Upcoming Encounters Date Type Specialty Care Team Description 08/19/2022 Office Visit Gastroenterology Mirza Vasquez MD [address] [place] [address] (Wo rk) documented as of this encounter Visit Diagnoses Not on filedocumented in this encounter Care Teams Transit Planning Director Relationship Specialty Start Date End Date Alfonso Tang PCP - General Family Practice 09/04/13 08/12/21 Dayanara Bee MD MD Pediatrics 12/26/14 [facility] [address] [place] [address] Min Lange MD MD Neurology 03/30/16 Marlo Madsen MD Cardiology 10/27/16 MD [address] [facility] [address] [place] [address] Mel Buckley, RN Nurse Coordinator Physical Medicine and 12/02/16 Rehabilitation documented as of this encounter
--- OUTSIDE RECORDS SUMMARY | 2022-06-30 09:50 | XMS_ITS | Encounter Summary ---
:1990 Author Organization [place] Address [address] [place] [address] Care Team Providers Name Role Phone Alfonso Tang Primary Care Provider Unavailable Dayanara Bee MD Unavailable Min Lange MD Unavailable Unavailable Marlo Madsen MD Unavailable Mel Buckley RN Unavailable Encounter Details Date Type Department Care Team Description 10/20/2016 [facility] Alfonso Tang RETIRED [facility] Provider, Historical [address] [address] Social History Tobacco Use Types Packs/Day Years Used Date Smoking Tobacco: Never Smokeless Tobacco: Never Alcohol Use Standard Drinks/Week Comments No 0 (1 standard drink = 0.6 oz pure alcoho l) Sex Assigned at Date Recorded Female 10/31/2021 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 documented as of this encounter Plan of Treatment Upcoming Encounters Date Type Specialty Care Team Description 08/19/2022 Office Visit Gastroenterology Mirza Vasquez MD [address] [place] [phone] (Wo rk) documented as of this encounter Visit Diagnoses Not on filedocumented in this encounter Care Teams Vice President Of Instruction Relationship Specialty Start Date End Date Alfonso Tang PCP - General Family Practice 09/04/13 08/12/21 Dayanara Bee MD MD Pediatrics 12/26/14 [address] [facility] [address] [place] [address] Min Lange MD MD Neurology 03/30/16 Marlo Madsen MD Cardiology 10/27/16 [place] [address] [facility] [address] [place], [place] [phone] Mel Buckley, RN Nurse Coordinator Physical Medicine and 12/02/16 Rehabilitation documented as of this encounter
--- OUTSIDE RECORDS SUMMARY | 2022-06-30 09:50 | XMS_ITS | Encounter Summary ---
:1990 Author Organization [place] Address [address] [place] [address] Care Team Providers Name Role Phone Alfonso Tang Primary Care Provider Unavailable Monty Musa MD Primary Care Provider Alfonso Tang Unavailable Unavailable Dayanara Bee MD Unavailable Min Lange MD Unavailable Unavailable Marlo Madsen MD Unavailable Mel Buckley RN Unavailable Douglas Cadet MD Unavailable [phone] Rosalba Pendleton REMELT FURNACE EXPEDITER MCAT TUTOR Unavailable Rosalba Pendleton APRN MCAT TUTOR Unavailable Douglas Cadet MD Unavailable [phone] Marlo Madsen MD Unavailable Encounter Details Date Type Department Care Team Description 09/16/2016 Records - [facility] CONVERSION Scan, Non-Provider Social History Tobacco Use Types Packs/Day Years Used Date Smoking Tobacco: Never Smokeless Tobacco: Never Alcohol Use Standard Drinks/Week Comments No 0 (1 standard drink = 0.6 oz pure alcoho l) Sex Assigned at Date Recorded Female 10/31/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 documented as of this encounter Plan of Treatment Upcoming Encounters Date Type Specialty Care Team Description 08/19/2022 Office Visit Gastroenterology Mirza Vasquez MD [address] [place] [address] (Wo rk) documented as of this encounter Visit Diagnoses Not on filedocumented in this encounter Care Teams Project Manager Finance Relationship Specialty Start Date End Date Alfonso Tang PCP - General Family Practice 09/04/13 08/12/21 Monty Musa, PCP - General [facility] Medicine 08/13/21 [facility] [address] [place] [address] Alfonso Tang Family Practice 08/13/21 Dayanara Bee MD Pediatrics 12/26/14 420 [facility] [address] [place], [place] [address] Min Lange MD Neurology 03/30/16 Marlo Christopher MD Cardiology 10/27/16 MD [place] 420 [facility] [address] [place], [place] [address] Mel Buckley, Nurse Coordinator Physical Medicine and 12/02/16 stock grader Douglas Cadet MD Gastroenterology 08/13/21 MD [place] [address] [place], [place] [phone] Rosalba Pnedleton Nurse Practitioner Neurology 09/05/21 Alexi, REMELT FURNACE EXPEDITER MCAT TUTOR [address] [phone] Rosalba Pendleton Assigned Neuroscience 11/09/21 Alexi, Provider REMELT FURNACE EXPEDITER MCAT TUTOR [address] [phone] Douglas Cadet Assigned 03/14/22 MD [place] [facility]astroenterology [address] [facility] Provider [place], [place] [phone] Marlo Madsen Assigned Heart and 03/14/22 MD [place] Vascular Provider [address] [place] [address] [address] [place], [place] [phone] documented as of this encounter
--- OUTSIDE RECORDS SUMMARY | 2022-06-30 09:50 | XMS_ITS | Encounter Summary ---
:1991 Author Organization [facility] Address [address] [place] [address] Care Team Providers Name Role Phone Alfonso Tang Primary Care Provider Unavailable Dayanara Bee MD Unavailable Min Lange MD Unavailable Unavailable Marlo Madsen MD Unavailable Mel Buckley RN Unavailable Reason for Visit Reason Comments Follow Up cholesterol, Encounter Details Date Type Department Care Team Description 09/16/2016 Office Visit - [facility] Alfonso Tang RETIRED Hyperlipidemia; [facility] Provider, Historical Autonomic nervous system disorder 1981 [facility] [address] [place] [address] Social History Tobacco Use Types Packs/Day Years Used Date Smoking Tobacco: Never Smokeless Tobacco: Never Alcohol Use Standard Drinks/Week Comments No 0 (1 standard drink = 0.6 oz pure alcoho l) Sex Assigned at Date Recorded Female 10/31/2021 7:59 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 She had seen her director franchise sales who did a lipid panel. Her cholesterol is elevated. She brings in results with her today. She states she follows a good low cholesterol diet. Her mother and father both have high cholesterol. There is heart disease in thefamily. Father has diabetes and heart disease. She now is here for a discussion on what to do for her high cholesterol. She also is having more problems with her dysautonomia. She is having problems with dizziness. She gets near syncopal episodes. She has palpitations easily. Her bowels have been veryirregular. She gets weak easily. She is not sleeping well. Objective: HEENT: Pupils equal round and reactive to light. Pharynx is clear. Patient's alert and oriented. Neck no thyromegaly noted. Cardiac: There is a regular rhythm present. No murmur heard. Lungs: Patient is in no respiratory distress today. Lungs are clear. Abdomen: Abdomen is mildly tender throughout. Bowel sounds are active throughout. It is soft. No masses are present. No rebound, guarding or rigidity present. Extremities: Trace edema noted in the feet and legs today. Patient's gait is steady. She is able to arise from a sitting position without much problem. Assessment: 1. Hyperlipidemia. This is most likely familial as her diet is good. 2. Dysautonomia Plan: We will increase her Florinef to 0.2 mg daily. I instructed her in side effects of this. She will update me in the next week or 2 with her progress on this. She'll try to stay aerobically active. She will continue a good well-balanced diet. Will start atorvastatin 20 mg daily. She was instructed in side effects of this. She will discontinue the fish oils that her director franchise sales started her on as she will be starting atorvastatin. I will see her back here in 1-2 months for recheck. documented in this encounter Plan of Treatment Upcoming Encounters Date Type Specialty Care Team Description 08/19/2022 Office Visit Gastroenterology Mirza Vasquez MD [address] [place], [place] [id number] (Wo rk) documented as of this encounter Visit Diagnoses Diagnosis Hyperlipidemia Other and unspecified hyperlipidemia Autonomic nervous system disorder Unspecified disorder of autonomic nervou s system documented in this encounter Care Teams Regional Account Director Relationship Specialty Start Date End Date Alfonso Tang PCP - General Family Practice 09/04/13 08/12/21 Dayanara Bee MD MD Pediatrics 12/26/[address] [place] [address] [address] [place] [address] Min Lange MD MD Neurology 03/30/16 Marlo Madsen MD Cardiology 10/27/[address] [place] [address] Mel Buckley, RN Nurse Coordinator Physical Medicine and 12/02/16 Rehabilitation documented as of this encounter
--- OUTSIDE RECORDS SUMMARY | 2022-06-30 09:50 | XMS_ITS | Encounter Summary ---
:1991 Author Organization [place] Address [address] [place] [address] Care Team Providers Name Role Phone Alfonso Tang Primary Care Provider Unavailable Dayanara Bee MD Unavailable Min Lange MD Unavailable Unavailable Marlo Madsen MD Unavailable Mel Buckley RN Unavailable Encounter Details Date Type Department Care Team Description 10/20/2016 [facility] Alfonso Tang RETIRED [facility] Provider, Historical [address] [address] Social History Tobacco Use Types Packs/Day Years Used Date Smoking Tobacco: Never Smokeless Tobacco: Never Alcohol Use Standard Drinks/Week Comments No 0 (1 standard drink = 0.6 oz pure alcoho l) Sex Assigned at Date Recorded Female 10/31/2021 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 documented as of this encounter Plan of Treatment Upcoming Encounters Date Type Specialty Care Team Description 08/19/2022 Office Visit Gastroenterology Mirza Vasquez MD [address] [place] [id number] (Wo rk) documented as of this encounter Visit Diagnoses Not on filedocumented in this encounter Care Teams Natural Resources Extension Educator Relationship Specialty Start Date End Date Alfonso Tang PCP - General Family Practice 09/04/13 08/12/21 Dayanara Bee MD MD Pediatrics 12/26/14 [facility] 75 [place] [address] Min Lange MD MD Neurology 03/30/16 Marlo Madsen MD Cardiology 10/27/16 [place] [facility] [address] [place], [place] [address] Mel Buckley, RN Nurse Coordinator Physical Medicine and 12/02/16 Rehabilitation documented as of this encounter
--- OUTSIDE RECORDS SUMMARY | 2022-06-30 09:50 | XMS_ITS | Encounter Summary ---
:1991 Author Organization [facility] Address [address] [place] [address] Care Team Providers Name Role Phone Alfonso Tang Primary Care Provider Unavailable Monty Musa MD Primary Care Provider Alfonso Tang Unavailable Unavailable Dayanara Bee MD Unavailable Min Lange MD Unavailable Unavailable Marlo Madsen MD Unavailable Mel Buckley RN Unavailable Douglas Cadet MD Unavailable [phone] Rosalba Pendleton VOICE DATA COMMUNICATIONS ENGINEER TRANSITION PROGRAM MANAGER Unavailable Rosalba Pendleton APRN TRANSITION PROGRAM MANAGER Unavailable Douglas Cadet MD Unavailable [phone] Marlo Madsen MD Unavailable Encounter Details Date Type Department Care Team Description 10/27/2016 Records - [facility] CONVERSION Scan, Non-Provider Social History Tobacco Use Types Packs/Day Years Used Date Smoking Tobacco: Never Smokeless Tobacco: Never Alcohol Use Standard Drinks/Week Comments No 0 (1 standard drink = 0.6 oz pure alcoho l) Sex Assigned at Date Recorded Female 10/31/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 documented as of this encounter Plan of Treatment Upcoming Encounters Date Type Specialty Care Team Description 08/19/2022 Office Visit Gastroenterology Mirza Vasquez MD [address] [place] [address] (Wo rk) documented as of this encounter Visit Diagnoses Not on filedocumented in this encounter Care Teams Coverstitch Machine Operator Relationship Specialty Start Date End Date Alfonso Tang PCP - General Family Practice 09/04/13 08/12/21 Monty Musa, PCP - General [facility] Medicine 08/13/21 [facility] [address] [place] [address] lAfonso Tang Family Practice 08/13/21 Dayanara Bee MD Pediatrics 12/26/14 [address] [facility] 75 [place], [place] [phone] Min Lange MD Neurology 03/30/16 Marlo Christopher MD Cardiology 10/27/16 MD [place] [address] [facility] [address] [place], [place] [address] Mel Buckley, Nurse Coordinator Physical Medicine and 12/02/16 catalogue maker Douglas Cadet MD Gastroenterology 08/13/21 MD [facility] [address] [place], [place] [phone] Rosalba Pendleton Nurse Practitioner Neurology 09/05/21 Alexi, VOICE DATA COMMUNICATIONS ENGINEER TRANSITION PROGRAM MANAGER [address] [id number] Rosalba Pendleton Assigned Neuroscience 11/09/21 Alexi, Provider VOICE DATA COMMUNICATIONS ENGINEER TRANSITION PROGRAM MANAGER [address] [id number] Douglas Cadet Assigned 03/14/22 MD [facility] [address] [facility] Provider [place], [place] [address] Marlo Madsen Assigned Heart and 03/14/22 MD [place] Vascular Provider [address] [place] [address] 508 [place], [place] [phone] documented as of this encounter
--- OUTSIDE RECORDS SUMMARY | 2022-06-30 09:50 | XMS_ITS | Encounter Summary ---
:1991 Author Organization [place] Address [facility] [place] [address] Care Team Providers Name Role Phone Alfonso Tang Primary Care Provider Unavailable Dayanara Bee MD Unavailable Min Lange MD Unavailable Unavailable Reason for Referral Specialty Diagnoses / Procedures Referred By Contact Refer red To Contact [facility] [address] [facility] [place] [address] Referral ID Status Reason Start Date Expiration Date Visits Requ ested Visits Authorized ICAL ADMINISTRATOR Reason for Visit Reason Comments Sleep Problem Encounter Details Date Type Department Care Team Description 07/27/2016 Documentation Only [facility] Sleep Problem [place] [address] [facility] [address] [place] [address] Social History Tobacco Use Types Packs/Day Years Used Date Smoking Tobacco: Never Smokeless Tobacco: Never Alcohol Use Standard Drinks/Week Comments No 0 (1 standard drink = 0.6 oz pure alcoho l) Sex Assigned at Date Recorded Female 10/31/2021 7:59 AM 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 Patient Latricia Machado was set up at [place] on July 27, 2016. Patient received a [employer] DreamStation Auto. Pressures were set at 5-15 cm H2O. Patient???s ramp is 5 cm H2O for Off andFLEX/EPR is 2. Patient received a [employer] Mask name: NANETTE FABRIC Nasal mask Size Small, heated tubing and heated humidifier. Patient is enrolled in the [employer] Program and does need to meet compliance. Patient has a follow up on 09/16/[address] Sarkar. Nathalie Fall ICAL ADMINISTRATOR documented in this encounter Plan of Treatment Upcoming Encounters Date Type Specialty Care Team Description 08/19/2022 Office Visit Gastroenterology Mirza Vasquez MD [address] [place] [address] (Wo rk) Scheduled Referrals Name Type Priority Associated Diagnoses Order S chedule SLEEP MACHINE INFORMATION Referral Routine Or dered: 07/27/2016 documented as of this encounter Visit Diagnoses Not on filedocumented in this encounter Care Teams Picker Tender Relationship Specialty Start Date End Date Alfonso Tang PCP - General Family Practice 09/04/13 08/12/21 Dayanara Bee MD MD Pediatrics 12/26/[address] [place] [address] 75 [place], [place] [address] Min Lange MD MD Neurology 03/30/16 documented as of this encounter
--- OUTSIDE RECORDS SUMMARY | 2022-06-30 09:50 | XMS_ITS | Encounter Summary ---
:1990 Author Organization [facility] Address [address] [place] [address] Care Team Providers Name Role Phone Alfonso Tang Primary Care Provider Unavailable Dayanara Bee MD Unavailable Min Lange MD Unavailable Unavailable Marlo Madsen MD Unavailable Mel Buckley RN Unavailable Encounter Details Date Type Department Care Team Description 05/25/2016 Records - [facility] CONVERSION Provider, Zo campbell Social History Tobacco Use Types Packs/Day Years Used Date Smoking Tobacco: Never Smokeless Tobacco: Never Alcohol Use Standard Drinks/Week Comments No 0 (1 standard drink = 0.6 oz pure alcoho l) Sex Assigned at Date Recorded Female 10/31/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 documented as of this encounter Plan of Treatment Upcoming Encounters Date Type Specialty Care Team Description 08/19/2022 Office Visit Gastroenterology Mirza Vasquez MD [address] [place] [address] (Wo rk) documented as of this encounter Visit Diagnoses Not on filedocumented in this encounter Care Teams Wood Room Hand Relationship Specialty Start Date End Date Alfonso Tang PCP - General Family Practice 09/04/13 08/12/21 Dayanara Bee MD MD Pediatrics 12/26/[address] [place] [address] [address] [place] [address] Min Lange MD MD Neurology 03/30/16 Marlo Madsen MD Cardiology 10/27/[address] [place] [address] Mel Buckley, DIAZ Nurse Coordinator Physical Medicine and 12/02/16 Rehabilitation documented as of this encounter
--- OUTSIDE RECORDS SUMMARY | 2022-06-30 09:50 | XMS_ITS | Encounter Summary ---
:1991 Author Organization [place] Address [address] [place] [address] Care Team Providers Name Role Phone Alfonso Tang Primary Care Provider Unavailable Dayanara Bee MD Unavailable Min Lange MD Unavailable Unavailable Marlo Madsen MD Unavailable Mel Buckley RN Unavailable Reason for Visit Reason Comments Medication Refill Encounter Details Date Type Department Care Team Description 11/19/2016 [facility] [place] Alfonso Tang RETIRED Medication Refill [facility], Historical [address] [address] Social History Tobacco Use Types Packs/Day Years Used Date Smoking Tobacco: Never Smokeless Tobacco: Never Alcohol Use Standard Drinks/Week Comments No 0 (1 standard drink = 0.6 oz pure alcoho l) Sex Assigned at Date Recorded Female 10/31/2021 7:59 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 documented as of this encounter Plan of Treatment Upcoming Encounters Date Type Specialty Care Team Description 08/19/2022 Office Visit Gastroenterology Mirza Vasquez MD [address] [place], [place] [address] (Wo rk) documented as of this encounter Visit Diagnoses Diagnosis Dizziness Dizziness and giddiness documented in this encounter Care Teams Polishing Wheel Setter Relationship Specialty Start Date End Date Alfonso Tang PCP - General Family Practice 09/04/13 08/12/21 Dayanara Bee MD MD Pediatrics 12/26/[address] [place] [address] 75 [place] [address] Min Lange MD MD Neurology 03/30/16 Marlo Madsen MD Cardiology 10/27/16 [place] [address] [facility] [address] [place] [address] Mel Buckley, RN Nurse Coordinator Physical Medicine and 12/02/16 Rehabilitation documented as of this encounter
--- OUTSIDE RECORDS SUMMARY | 2022-06-30 09:50 | XMS_ITS | Encounter Summary ---
:1991 Author Organization [place] Address [address] [place] [address] Care Team Providers Name Role Phone Alfonso Tang Primary Care Provider Unavailable Dayanara Bee MD Unavailable Min Lange MD Unavailable Unavailable Marlo Madsen MD Unavailable Mel Buckley RN Unavailable Reason for Visit Reason Comments Appointment Flare up of Dysautonomia/oth er illnesses Encounter Details Date Type Department Care Team Description 07/20/2016 [facility] Alfonso Tang RETIRED [facility] up of 1981 [facility] Dysautonomi a/othe. [address] .. 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 documented as of this encounter Plan of Treatment Upcoming Encounters Date Type Specialty Care Team Description 08/19/2022 Office Visit Gastroenterology Mirza Vasquez MD [address] [place] [address] (Wo rk) documented as of this encounter Visit Diagnoses Not on filedocumented in this encounter Care Teams Utilization Supervisor Relationship Specialty Start Date End Date Alfonso Tang PCP - General Family Practice 09/04/13 08/12/21 Dayanara Bee MD MD Pediatrics 12/26/[address] [place] [address] 75 [place] [address] Min Lange MD MD Neurology 03/30/16 Marlo Madsen MD Cardiology 10/27/[address] [place] [address] Mel Buckley, RN Nurse Coordinator Physical Medicine and 12/02/16 Rehabilitation documented as of this encounter
--- OUTSIDE RECORDS SUMMARY | 2022-06-30 09:50 | XMS_ITS | Encounter Summary ---
:1990 Author Organization [facility] Address [address] [place] [address] Care Team Providers Name Role Phone Alfonso Tang Primary Care Provider Unavailable Dayanara Bee MD Unavailable Min Lange MD Unavailable Unavailable Reason for Visit Reason Comments Sleep Problem CPAP follow up Encounter Details Date Type Department Care Team Description 09/16/2016 Office Visit [facility] Adelso Paulino MEDARDO (ob structive sleep Sleep Centers Carey Sullivan MD apnea) (Primary Dx) [address] [facility] [address] [place] [address] [address] [place] [address] [place] [address] Social History Tobacco Use Types Packs/Day Years Used Date Smoking Tobacco: Never Smokeless Tobacco: Never Alcohol Use Standard Drinks/Week Comments No 0 (1 standard drink = 0.6 oz pure alcoho l) Sex Assigned at Date Recorded Female 10/31/2021 7:59 AM HOT END OPERATOR documented as of this encounter Last Filed Vital Signs Vital Sign Reading Time Taken Comments Blood Pressure 116/76 09/16/2016 9:00 AM HOT END OPERATOR Pulse 56 09/16/2016 9:00 AM HOT END OPERATOR Temperature 36.6 ??C (97.9 ??F) 09/16/2016 9:00 AM HOT END OPERATOR Respiratory Rate - - Oxygen Saturation 98% 09/16/2016 9:00 AM HOT END OPERATOR Inhaled Oxygen Concentration - - Weight 94.3 kg (208 lb) 09/16/2016 9:00 AM HOT END OPERATOR Height 167.6 cm (5' 6) 09/16/2016 9:00 AM HOT END OPERATOR Body Mass Index 33.57 09/16/2016 9:00 AM HOT END OPERATOR documented in this encounter Patient Instructions Patient InstructionsJodie Pedro MA - 09/16/2016 9:46 AM CST Your BMI is Body mass index is 33.59 kg/(m^2). Weight management is a personal decision. If you are interested in exploring weight loss strategies,the following discussion covers the approaches that may be successful. Body mass index (BMI) is one way to tell whether you are at a healthy weight, overweight, or obese. It measures your weight in relation to your height. A BMI of 18.5 to 24.9 is in the healthy range. A person with a BMI of 25 to 29.9 is considered overweight, and someone with a BMI of 30 or greater is considered obese. More than two-thirds of Citizen Of [place] adults are considered overweight or obese. Being overweight or obese increases the risk for further weight gain. Excess weight may lead to heart disease and diabetes. Creating and following plans for healthy eating and physical activity may help you improve your health. Weight control is part of healthy lifestyle and includes exercise, emotional health, and healthy eating habits. Careful eating habits lifelong are the mainstay of weight control. Though there are significant health benefits from weight loss, long-term weight loss with diet alone may be very difficult to achieve- studies show long-term success with dietary management in less than 10% of people. Attaining a healthy weight may be especially difficult to achieve in those with severe obesity. In some cases, medications, devices and surgical management might be considered. What can you do? If you are overweight or obese and are interested in methods for weight loss, you should discuss this with your provider. ??? Consider reducing daily calorie intake by 500 calories. ??? Keep a food journal. ??? Avoiding skipping meals, consider cutting portions instead. Diet combined with exercise helps maintain muscle while optimizing fat loss. Strength training is particularly important for building and maintaining muscle mass. Exercise helps reduce stress, increaseenergy, and improves fitness. Increasing exercise without diet control, however, may not burn enoughcalories to loose weight. ??? Start walking three days a week 10-20 minutes at a time ??? Work towards walking thirty minutes five days a week ??? Eventually, increase the speed of your walking for 1-2 minutes at time In addition, we recommend that you review healthy lifestyles and methods for weight loss available through the National Institutes of Health patient information sites: http://win.niddk.nih.gov/publications/index.htm And look into health and wellness programs that may be available through your health insurance provider, employer, local community center, or stephanie club. Weight management plan: Patient was referred to their PCP to discuss a diet and exercise plan. END OPERATOR documented in this encounter Progress Notes Adelso Paulino MD - 09/16/2016 10:11 AM CST SLEEP MEDICINE FOLLOWUP NOTE Ms. Latricia Machado is 26 years old. She has a very challenging history of nonrestorative sleep. 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 The last time we saw her, we arranged for her to go on an auto titration CPAP for moderate sleep disordered breathing that we noted on a previous study. She had an apnea-hypopnea index of 25 events an hour. While I was not certain that correcting this sleep disordered breathing would resolve all of her symptoms, it seemed quite apparent that this was the most appropriate place to. Unfortunately, she has not been able to tolerate CPAP for more than an hour or 2 a night and many nights she is not using it at all. We had a long discussion regarding strategies to better control sleep disordered breathing. We discussed whether or not she has nasal obstruction which she indicated that she does not, in which case we would have her see our electrolytic de scaler. She is quite interested about a full face mask which I am happy to prescribe for her and I have done. However, I explained to her that our goal mustbe to increase her utilization of CPAP to at least 6 hours a night, preferably closer to 8 hours a night, for us to get a better handle as to whether or not this can improve her daytime fatigue, sleepiness and nocturnal motor activity. I would not pursue treatment of clonazepam or other sleep consolidating agents to address her nocturnal motor activity until her sleep disordered breathing is brought under control and she indicates that she understands. Regardless, she states that she is quite motivated to give CPAP another try at this time, indicates that she understands the goal is to use it between 6-8 hours a night and depending on where we are atthat time we may pursue further treatment of nocturnal motor activity or possible repeat study to confirm whether or not she does have REM sleep without atonia in the absence of sleep disordered breathing. The patient understands the plan. She has been advised to never operate a motor vehicle if she is tired or sleepy. Ten minutes were spent with the patient today, greater than 50% of the time in counseling and coordination of care. ADELSO PAULINO MD MT: KEZIA Name: LATRICIA MACHADO Account: [id number] : 1990 Visit Date: 09/16/2016 Document: [id number] END OPERATOR Adelso Paulino MD - 09/16/2016 10:02 AM CST See dictation END OPERATOR documented in this encounter Nursing Notes Jodie Pedro MA - 09/16/2016 9:45 AM CST Chief Complaint Patient presents with ??? Sleep Problem CPAP follow up Initial BP 116/76 mmHg Pulse 56 Temp(Src) 97.9 ??F (36.6 ??C) (Oral) Ht 1.676 m (5' 6) Wt 94.348 kg (208 lb) BMI 33.59 kg/m2 SpO2 98% Estimated body mass index is 33.59 kg/(m^2) as calculated from the following: Height as of this encounter: 1.676 m (5' 6). Weight as of this encounter: 94.348 kg (208 lb). BP completed using cuff size: large right arm Jodie Pedro MA [facility] END OPERATOR documented in this encounter Plan of Treatment Upcoming Encounters Date Type Specialty Care Team Description 08/19/2022 Office Visit Gastroenterology Mirza Vasquez MD [address] [place] [address] (Wo rk) documented as of this encounter Visit Diagnoses Diagnosis MEDARDO (obstructive sleep apnea) - Primary Obstructive sleep apnea (adult) (pediatr ic) documented in this encounter Care Teams Environmental Specialist Relationship Specialty Start Date End Date Alfonso Tang PCP - General Family Practice 09/04/13 08/12/21 Dayanara Bee MD MD Pediatrics 12/26/[address] [place] [address] [address] [place], [place] [phone] Min Lange MD MD Neurology 03/30/16 documented as of this encounter
--- OUTSIDE RECORDS SUMMARY | 2022-06-30 09:50 | XMS_ITS | Encounter Summary ---
:1990 Author Organization [facility] Address [address] [place] [address] Care Team Providers Name Role Phone Alfonso Tang Primary Care Provider Unavailable Dayanara Bee MD Unavailable Min Lange MD Unavailable Unavailable Marlo Madsen MD Unavailable Mel Buckley RN Unavailable Reason for Visit Reason Comments Loss of Consciousness Encounter Details Date Type Department Care Team Description 07/31/2016 Communication - 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 documented as of this encounter Plan of Treatment Upcoming Encounters Date Type Specialty Care Team Description 08/19/2022 Office Visit Gastroenterology Mirza Vasquez MD [address] [place], [place] [phone] (Wo rk) documented as of this encounter Visit Diagnoses Not on filedocumented in this encounter Care Teams Transfer Controller Relationship Specialty Start Date End Date Alfonso Tnag PCP - General Family Practice 09/04/13 08/12/21 Dayanara Bee MD MD Pediatrics 12/26/14 [address] [facility] [address] [place] [address] Min Lange MD MD Neurology 03/30/16 Marlo Madsen MD Cardiology 10/27/16 [place] [address] [facility] [address] [place], [place] [address] Mel Buckley, RN Nurse Coordinator Physical Medicine and 12/02/16 Rehabilitation documented as of this encounter
--- OUTSIDE RECORDS SUMMARY | 2022-06-30 09:50 | XMS_ITS | Encounter Summary ---
:1990 Author Organization [facility] Address [address] [place] [address] Care Team Providers Name Role Phone Alfonso Tang Primary Care Provider Unavailable Dayanara Bee MD Unavailable Min Lange MD Unavailable Unavailable Marlo Madsen MD Unavailable Mel Buckley RN Unavailable Reason for Visit Reason Comments General Visit Encounter Details Date Type Department Care Team Description 10/26/2016 [facility] Alfonso Tang RETIRED General Visit [facility] Provider, Historical [address] [address] Social History Tobacco Use Types Packs/Day Years Used Date Smoking Tobacco: Never Smokeless Tobacco: Never Alcohol Use Standard Drinks/Week Comments No 0 (1 standard drink = 0.6 oz pure alcoho l) Sex Assigned at Date Recorded Female 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 documented as of this encounter Plan of Treatment Upcoming Encounters Date Type Specialty Care Team Description 08/19/2022 Office Visit Gastroenterology Mirza Vasquez MD [address] [place], [place] [phone] (Wo rk) documented as of this encounter Visit Diagnoses Not on filedocumented in this encounter Care Teams Parts Technician Relationship Specialty Start Date End Date Alfonso Tang PCP - General Family Practice 09/04/13 08/12/21 Dayanara Bee MD MD Pediatrics 12/26/14 [address] [facility] [address] [place] [address] Min Lange MD MD Neurology 03/30/16 Marlo Madsen MD Cardiology 10/27/16 [place] [address] [facility] [address] [place] [address] Mel Buckley, DIAZ Nurse Coordinator Physical Medicine and 12/02/16 Rehabilitation documented as of this encounter
--- OUTSIDE RECORDS SUMMARY | 2022-06-30 09:50 | XMS_ITS | Encounter Summary ---
:1990 Author Organization [facility] Address [address] [place] [address]. [place] [address] Care Team Providers Name Role Phone Alfonso Tang Primary Care Provider Unavailable Dayanara Bee MD Unavailable Min Lange MD Unavailable Unavailable Encounter Details Date Type Department Care Team Description 05/25/2016 Telephone [facility] Jose Armando Fall [address] [facility] [address] [place] [address] Social History Tobacco Use Types Packs/Day Years Used Date Smoking Tobacco: Never Smokeless Tobacco: Never Alcohol Use Standard Drinks/Week Comments No 0 (1 standard drink = 0.6 oz pure alcoho l) Sex Assigned at Date Recorded 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
--- OUTSIDE RECORDS SUMMARY | 2022-06-30 09:51 | XMS_ITS | Encounter Summary ---
:1990 Author Organization [facility] Address [address] [place] [address] Care Team Providers Name Role Phone Alfonso Tang Primary Care Provider Unavailable Dayanara Bee MD Unavailable Min Lange MD Unavailable Unavailable Reason for Visit Reason Onset Date Comments Refill Request 05/07/2016 Encounter Details Date Type Department Care Team Description 05/07/2016 [facility]ill 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 documented as of this encounter Plan of Treatment Upcoming Encounters Date Type Specialty Care Team Description 08/19/2022 Office Visit Gastroenterology Mirza Vasquez MD [address] [place] [address] (Wo rk) documented as of this encounter Visit Diagnoses Diagnosis Autonomic dysfunction - Primary Unspecified disorder of autonomic nervou s system documented in this encounter Care Teams Grain Packer Relationship Specialty Start Date End Date Alfonso Tang PCP - General Family Practice 09/04/13 08/12/21 Dayanara Bee MD MD Pediatrics 12/26/[address] [place] [address] 75 [place], [place] [phone] Min Lange MD MD Neurology 03/30/16 documented as of this encounter
--- OUTSIDE RECORDS SUMMARY | 2022-06-30 09:51 | XMS_ITS | Encounter Summary ---
:1990 Author Organization [facility] Address [address] [place] [address]. [place] [address] Care Team Providers Name Role Phone Alfonso Tang Primary Care Provider Unavailable Dayanara Bee MD Unavailable Min Lange MD Unavailable Unavailable Reason for Visit Reason Comments Sleep Problem PSG (Routine) - Closed Specialty Diagnoses / Procedures Referred By Contact Refer red To Contact Sleep Medicine Diagnoses [facility] Procedures PSG SPLIT [address] [facility] [address] [place] [phone] Phone: Referral ID Status Reason Start Date Expiration Date Visits Requ ested Visits Authorized [id number] Closed 04/28/2016 04/28/2017 1 1 Encounter Details Date Type Department Care Team Description 05/05/2016 Therapy Visit [facility] Sleep Sle ep disorder; [facility] Obstructive sleep apnea synd frannie [address] [facility] [address] [place] [address] Social History Tobacco Use Types Packs/Day Years Used Date Smoking Tobacco: Never Smokeless Tobacco: Never Alcohol Use Standard Drinks/Week Comments No 0 (1 standard drink = 0.6 oz pure alcoho l) Sex Assigned at Date Recorded Female 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 Patient did not meet criteria for PAP therapy. documented in this encounter Procedure Notes Adelso Sarkar MD - 05/08/2016 1:13 PM CDT Images from the original note were not included. SLEEP STUDY INTERPRETATION POLYSOMNOGRAPHY REPORT Patient: Latricia Machado Date of : 1990 Study Date: 05/05/2016 Referring Provider: MD Tang John Ordering Provider: MD Sarkar Michael Indications for Polysomnography: The patient is a 26 y old Female who is 5' 5 and weighs 200.0 lbs.Her BMI is 33.3, [place] sleepiness scale 4.0 and neck size is 41.0. Relevant medical history includes snoring, witnessed apneas, spells of motor activities. A diagnostic polysomnogram was performed toevaluate for sleep apnea/PLMS/RBD/Parasomnias. Polysomnogram Data: A full night polysomnogram recorded the standard physiologic parameters including EEG, EOG, EMG, ECG, nasal and oral airflow. Respiratory parameters of chest and abdominal movementswere recorded with respiratory inductance plethysmography. Oxygen saturation was recorded by pulse oximetry. Sleep Architecture: Sleep fragmentation The total recording time of the polysomnogram was 463.1 minutes. The total sleep time was 380.0 minutes. Sleep latency was 29.5 minutes. REM latency was 240.0 minutes. Arousal index was 60.3 arousals per hour. Sleep efficiency was 82.1%. Wake after sleep onset was 44.0 minutes. The patient spent 22.5%of total sleep time in Stage N1, 49.7% in Stage N2, 19.1% in Stages N3, and 8.7% in REM. Time in REMsupine was 31.5 minutes. Respiration: Moderate sleep disordered breathing best characterized as mixed (combination of both obstructive and central phenomena). Of note the patient did have REM supine during the study. ??? Events - The polysomnogram revealed a presence of 1 obstructive, 1 central, and - mixed apneas resulting in an apnea index of 0.3 events per hour. There were 153 hypopneas resulting in a hypopnea index of 24.2 events per hour. The combined apnea/hypopnea index was 24.5 events per hour. The REM AHIwas 32.7 events per hour. The supine AHI was 20.5 events per hour. The RERA index was - events per hour. The RDI was 24.5 events per hour. ??? Snoring - was reported as mild-moderate. ??? Respiratory rate and pattern - was notable for normal respiratory rate and pattern. ??? Sustained Sleep Associated Hypoventilation - Transcutaneous carbon dioxide monitoring was not used. ??? Sleep Associated Hypoxemia - (Greater than 5 minutes O2 sat below 89%) was not present. Baselineoxygen saturation was 96.3%. Lowest oxygen saturation was 90.8%. Time spent less than or equal to 88% was 0 minutes. Time spent less than or equal to 89% was 0 minutes. 24.5 - 24.5 Movement Activity: Increased motor activity including both PLMs during NREM sleep (video shows atypical movements often abduction/adduction of lower extremities instead of typical triple flexion response) and transient muscle activity during REM sleep. However many of these motor events were temporally correlated with sleep disordered breathing. ??? Periodic Limb Activity - There were 96 PLMs during the entire study. The PLM index was 15.2 movements per hour. The PLM Arousal Index was 6.6 per hour. ??? REM EMG Activity - Excessive transient muscle activity was present. ??? Nocturnal Behavior - Abnormal sleep related behaviors were noted out of NREM sleep. The behaviors appeared to be consistent with dream enactment. These events were characterized as abduction, adduction oscillation (?tremor) of the lower extremities. Seizure montage was not employed ??? Bruxism - None apparent. Cardiac Summary: Sinus, intermittent tachycardia The average pulse rate was 65.8 bpm. The minimum pulse rate was 50.9 bpm while the maximum pulse rate was 112.9 bpm. Assessment: ??? Moderate sleep disordered breathing best characterized as mixed (combination of both obstructiveand central phenomena). Of note the patient did have REM supine during the study. o Recommend first addressing the patients obstructive component of mixed apneas as the improved sleep consolidation often also corrects the central component as well. - Treatment options include: ??? Dental Appliance ??? Auto CPAP ??? Upper Airway Surgery ??? Increased motor activity including both PLMs during NREM sleep (video shows atypical movements often abduction/adduction of lower extremities instead of typical triple flexion response) and transient muscle activity during REM sleep. However many of these motor events were temporally correlated with sleep disordered breathing. o Recommend first addressing sleep disordered breathing. If behaviors persist could consider repeat PSG if suspicion is high for parasomnia disorder or referral to video EEG monitoring if suspicion is high for seizure disorder. ??? Advise regarding the risks of drowsy driving. ??? Suggest optimizing sleep schedule and avoiding sleep deprivation. ??? Weight management Diagnostic Code(s): G47.33, G47.9 Adleso Sarkar MD documented in this encounter Plan of Treatment Upcoming Encounters Date Type Specialty Care Team Description 08/19/2022 Office Visit Gastroenterology Mirza Vasquez MD [address] [place] [phone] (Wo rk) documented as of this encounter Procedures Procedure Name Priority Date/Time Associated Diagnosis Comme nts C4 PLANNER COMPREHENSIVE SLEEP Routine 05/25/2016 Sleep di sorder Obstructive sleep apnea synd frannie documented in this encounter Results Comprehensive Sleep Study (05/25/2016) Narrative This result has an attachment that is no t available. Adelso Sarkar MD PROCEDURES documented in this encounter Visit Diagnoses Diagnosis Sleep disorder Sleep disturbance, unspecified Obstructive sleep apnea syndrome Obstructive sleep apnea (adult) (pediatr ic) documented in this encounter Care Teams Sterile Instrument Technician Relationship Specialty Start Date End Date Alfonso Tang PCP - General Family Practice 09/04/13 08/12/21 Dayanara Bee MD MD Pediatrics 12/26/[address] [place] [address] 75 [place] [address] Min Lange MD MD Neurology 03/30/16 documented as of this encounter
--- OUTSIDE RECORDS SUMMARY | 2022-06-30 09:51 | XMS_ITS | Encounter Summary ---
:1990 Author Organization [facility] Address [address] [place] [address] Care Team Providers Name Role Phone Alfonso Tang Primary Care Provider Unavailable Dayanara Bee MD Unavailable Min Lange MD Unavailable Unavailable Marlo Madsen MD Unavailable Mel Buckley RN Unavailable Encounter Details Date Type Department Care Team Description 01/01/2016 [facility] Alfonso Tang RETIRED [facility] Provider, Historical [address] [address] Social History Tobacco Use Types Packs/Day Years Used Date Smoking Tobacco: Never Smokeless Tobacco: Never Alcohol Use Standard Drinks/Week Comments No 0 (1 standard drink = 0.6 oz pure alcoho l) Sex Assigned at Date Recorded Female 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 documented as of this encounter Plan of Treatment Upcoming Encounters Date Type Specialty Care Team Description 08/19/2022 Office Visit Gastroenterology Mirza Vasquez MD [address] [place] [phone] (Wo rk) documented as of this encounter Visit Diagnoses Not on filedocumented in this encounter Care Teams Windows Systems Administrator Relationship Specialty Start Date End Date Alfonso Tang PCP - General Family Practice 09/04/13 08/12/21 Dayanara Bee MD MD Pediatrics 12/26/14 [address] [facility] [address] [place] [address] Min Lange MD MD Neurology 03/30/16 Marlo Madsen MD Cardiology 10/27/16 [place] [address] [facility] [address] [place], [place] [address] Mel Buckley, RN Nurse Coordinator Physical Medicine and 12/02/16 Rehabilitation documented as of this encounter
--- OUTSIDE RECORDS SUMMARY | 2022-06-30 09:51 | XMS_ITS | Encounter Summary ---
:1990 Author Organization [facility] Address [address] [place] [address]. [place] [address] Care Team Providers Name Role Phone Alfonso Tang Primary Care Provider Unavailable Dayanara Bee MD Unavailable Min Lange MD Unavailable Unavailable Reason for Visit Reason Comments RECHECK f/u psg 05/05 Encounter Details Date Type Department Care Team Description 05/25/2016 Office Visit [facility] Gary Paulino MEDARDO (ob structive sleep Sleep Centers Michelle Sullivan MD apnea) (Primary Dx) [address] [facility] [address] [place] [address] [address] [place] [address] [place] [phone] Social History Tobacco Use Types Packs/Day Years Used Date Smoking Tobacco: Never Smokeless Tobacco: Never Alcohol Use Standard Drinks/Week Comments No 0 (1 standard drink = 0.6 oz pure alcoho l) Sex Assigned at Date Recorded 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 documented as of this encounter Last Filed Vital Signs Vital Sign Reading Time Taken Comments Blood Pressure 119/82 05/25/2016 8:00 AM CDT Pulse 86 05/25/2016 8:00 AM CDT Temperature - - Respiratory Rate 14 05/25/2016 8:00 AM CDT Oxygen Saturation 98% 05/25/2016 8:00 AM CDT Inhaled Oxygen Concentration - - Weight 92.9 kg (204 lb 12.9 oz) 05/25/2016 8:00 AM CDT Height 165.1 cm (5' 5) 05/25/2016 8:00 AM CDT Body Mass Index 34.08 05/25/2016 8:00 AM CDT documented in this encounter Patient Instructions Patient InstructionsAmy Pendleton - 05/25/2016 8:13 AM CDT Your BMI is Body mass index is 34.08 kg/(m^2). Weight management is a personal decision. [...] is considered obese. More than two-thirds of [place] adults are considered overweight or obese. Being [...] to discuss a diet and exercise plan. documented in this encounter Progress Notes Gary Paulino MD - 05/25/2016 8:13 AM CDT Ms. Darin Machado is 26 years old. She has a very challenging history of nonrestorative sleep. Please see my previous note in regard to the fact that we were concerned about the possibility of sleep disordered breathing, circadian realignment, prolonged sleep requirement, narcolepsy, sleep-related movement disorder, dream enactment behavior as well as the possibility of nocturnal epilepsy. We went ahead and arranged for the patient to have an overnight PSG which demonstrated moderate sleep disordered breathing best characterized as mixed. We discussed the results of the study as well as some findings of motor activity during the sleep study; however, our first task would be to go ahead and fix the sleep disordered breathing. She knows quite a bit about obstructive sleep apnea since her father is on a CPAP machine, although he is not particularly adherent apparently. She indicated that she is certainly willing to give it a try. We could get her set up right away; however, she is having some acute issues with a cold and possible sinus infection and she indicated that she is going to be pursuing urgent care for that, which I think is an excellent idea. We will go ahead and wait about a week for her sinuses to clear up before starting CPAP to give her the best chance of success. In the meanwhile it is critically important that she should not operate a motor vehicle if she is tired or sleepy and she has indicated that she understands. It was a great privilege being asked to participate in her care. Ten minutes were spent with the patient today, greater than 50% of the time in counseling and coordination of care. GARY PAULINO MD MT: jennifer Name: DARIN MACHADO Account: [id number] : 1990 Visit Date: 05/25/2016 Document: [id number] Gary Paulino MD - 05/25/2016 8:05 AM CDT See dictation documented in this encounter Nursing Notes Amy Pendleton - 05/25/2016 8:13 AM CDT Chief Complaint Patient presents with ??? RECHECK f/u psg 05/05 Initial BP 119/82 mmHg Pulse 86 Resp 14 Ht 1.651 m (5' 5) Wt 92.9 kg (204 lb 12.9 oz) BMI34.08 kg/m2 SpO2 98% Estimated body mass index is 34.08 kg/(m^2) as calculated from the following: Height as of this encounter: 1.651 m (5' 5). Weight as of this encounter: 92.9 kg (204 lb 12.9 oz). BP completed using cuff size: regular Amy Pendleton CNA, Clinical Coordinator documented in this encounter Miscellaneous Notes Addendum Note - Amy Pendleton - 05/25/2016 8:14 AM CDT Addended by: AMY PENDLETON on: 05/25/2016 08:14 AM Modules accepted: Medications documented in this encounter Plan of Treatment Upcoming Encounters Date Type Specialty Care Team Description 08/19/2022 Office Visit Gastroenterology Mirza Vasquez MD [address] [place] [id number] (Wo rk) documented as of this encounter Visit Diagnoses Diagnosis MEDARDO (obstructive sleep apnea) - Primary Obstructive sleep apnea (adult) (pediatr ic) documented in this encounter Care Teams Senior Financial Reporting Analyst Relationship Specialty Start Date End Date Alfonso Tang PCP - General Family Practice 09/04/13 08/12/21 Dayanara Bee MD MD Pediatrics 12/26/[address] [place] [address] [address] [place] [address] Min Lange MD MD Neurology 03/30/16 documented as of this encounter
--- OUTSIDE RECORDS SUMMARY | 2022-06-30 09:51 | XMS_ITS | Encounter Summary ---
:1990 Author Organization [facility] Address [address] [place] [address] Care Team Providers Name Role Phone Alfonso Tang Primary Care Provider Unavailable Dayanara Bee MD Unavailable Min Lange MD Unavailable Unavailable Marlo Madsen MD Unavailable Mel Buckley RN Unavailable Reason for Visit Reason Comments Medication Refill Encounter Details Date Type Department Care Team Description 12/27/2015 [facility] Alfonso Tang RETIRED Medication Refill [facility], Historical [address] [address] Social History Tobacco Use Types Packs/Day Years Used Date Smoking Tobacco: Never Smokeless Tobacco: Never Alcohol Use Standard Drinks/Week Comments No 0 (1 standard drink = 0.6 oz pure alcoho l) Sex Assigned at Date Recorded 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 documented as of this encounter Plan of Treatment Upcoming Encounters Date Type Specialty Care Team Description 08/19/2022 Office Visit Gastroenterology Mirza Vasquez MD [address] [place], [place] [id number] (Wo rk) documented as of this encounter Visit Diagnoses Not on filedocumented in this encounter Care Teams Agricultural Research Director Relationship Specialty Start Date End Date Alfonso Tang PCP - General Family Practice 09/04/13 08/12/21 Dayanara Bee MD MD Pediatrics 12/26/14 [address] [facility] [address] [place] [address] Min Lange MD MD Neurology 03/30/16 Marlo Madsen MD Cardiology 10/27/16 [place] [address] [facility] [address] [place] [address] Mel Buckley, RN Nurse Coordinator Physical Medicine and 12/02/16 Rehabilitation documented as of this encounter
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
--- OUTSIDE RECORDS SUMMARY | 2022-06-30 09:51 | XMS_ITS | Encounter Summary ---
:1990 Author Organization [facility] Address [address] [place] [address] Care Team Providers Name Role Phone Alfonso Tang Primary Care Provider Unavailable Dayanara Bee MD Unavailable Min Crane MD Unavailable Unavailable Reason for Referral - Closed Specialty Diagnoses / Procedures Referred By Contact Refer red To Contact Diagnoses Sleep disorder Min Crane MD 360 [facility] 3 60 [place] [address] Referral ID Status Reason Start Date Expiration Date Visits Requ ested Visits Authorized [id number] Closed 04/21/2016 04/21/2017 1 1 - Closed Specialty Diagnoses / Procedures Referred By Contact Refer red To Contact Diagnoses Intractable 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 Min Crane MD Procedures Basic metabolic panel 360 [facility] 360 [place] [address] Referral ID Status Reason Start Date Expiration Date Visits Requ ested Visits Authorized [id number] Closed 04/14/2016 04/14/2017 1 1 - Closed Specialty Diagnoses / Procedures Referred By Contact Refer red To Contact Diagnoses Intractable 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 Min Crane MD Procedures CBC with platelets [address] [address] Referral ID Status Reason Start Date Expiration Date Visits Requ ested Visits Authorized [id number] Closed 04/14/2016 04/14/2017 1 1 Reason for Visit Reason Comments RECHECK follow up migraines Encounter Details Date Type Department Care Team Description 04/09/2016 Office Visit [facility] Min Crane Intractab le 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 (Primary Dx); [facility] Migrain e without aura and without status migrainosus, not intractable; [facility] [address] [place] [address], [address] [place] [address] Social History Tobacco Use Types Packs/Day Years Used Date Smoking Tobacco: Never Smokeless Tobacco: Never Alcohol Use Standard Drinks/Week Comments No 0 (1 standard drink = 0.6 oz pure alcoho l) Sex Assigned at Date Recorded 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 Tang: Latricia Machado returns for followup of migraine headaches. She continues to have about 1 headache each month that can last a day or more. She continues on Zonegran at a dose of 150 mg a day. She has tried a variety of triptan medications without benefit. SinceI last saw her, she tried Midrin that has not helped. She has not tried DHE nasal spray. She does have some Percocet left over from a prior surgery and she finds that this will take the edge off the headache enough that she does not have to go to the emergency room. She indicates that she was evaluated for a mitochondrial disorder and the testing proved negative. She does have a history of recurrent syncope and dysautonomia of uncertain etiology. Today, she asked me about seeing a Sleep Medicine specialist. For a couple of years, she reports that people have noticed that she will shake in her sleep and moan. She has never bitten her tongue or lost her urine. She awakens in odd positions and feels very tired during the day. She has never had anepisode such as this during the daytime. Her current medications are Zonegran 150 mg a day, Percocet, Florinef, Celexa, Linzess, Zofran p.r.n., Pristiq, Antivert p.r.n. and a multivitamin. Examination reveals her heart rate is 84. Blood pressure is 112/76. Funduscopic examination is unremarkable. Venous pulsations are noted. Visual andersen are intact. Cranial nerves II-XII are intact. Motor, sensory, cerebellar and gait testing are normal. Reflexes are 2+. Plantar responses are flexor. IMPRESSION: 1. Migraine. 2. Sleep disorder. PLAN: She is going to continue on Zonegran 150 mg. I have asked her to try Migranal nasal spray now to see if it will abort her headaches. She has found that Percocet will allow her to keep from going to the emergency room and I did give her a prescription for 10 Percocet to use as a rescue medication. She assures me that this would suffice for 3 months. She is interested in seeing a sleep disorder specialist concerning abnormal movements that are notedduring her sleep. I am referring her to Dr. Adelso Sarkar for this purpose. I am going to check a CBC and basic metabolic panel, and I will communicate those results to her. ([facility] OK. CALLED PATIENT ON 04/18/16) I should note that last year she mentioned that there was a strong family history of intracranial aneurysms. We did do a MR angiographic study at that time and it was negative. Sincerely, Min Crane MD cc: Adelso Sarkar MD [address] [address] MIN CRANE MD MT: nicole Name: LATRICIA MACHADO MRN: [id number] Account: [id number] : 1990 Service Date: 04/09/2016 Document: [id number] documented in this encounter Plan of Treatment Upcoming Encounters Date Type Specialty Care Team Description 08/19/2022 Office Visit Gastroenterology Mirza Vasquez MD [address] [place] [address] (Wo rk) Scheduled Referrals Name Type Priority Associated Diagnoses Order S chedule SLEEP EVALUATION & Referral Routine Sleep disorder Expecte d: 04/21/2016, MANAGEMENT REFERRAL - s: 04/09/2017 ADULT documented as of this encounter Results Basic metabolic panel (04/10/2016) athologist Signature Sodium 137 mmol/L Potassium 3.9 mmol/L Chloride 103 mmol/L CO2, TOTAL 24 mmol/L Anion Gap 10 mmol/L Glucose 82 70 - 99 mg/dL Urea Nitrogen mg/dL Creatinine 0.72 mg/dL Calcium 9.3 mg/dL Specimen (Source) Anatomical Location Collection Method / Collectio n Time Received Time / Laterality Volume Blood specimen 04/10/2016 (specimen) Narrative This result has an attachment that is no t available. Min Crane MD LAB - BLOOD ORDERABLES CBC with platelets (04/10/2016) P athologist Signature WBC 5.2 10^9/L RBC Count 4.29 10^12/L Hemoglobin 13.3 11.7 - 15.7 g/dL Hematocrit 38.9 % MCV 91 fl MCH 31.1 pg MCHC 34.2 g/dL RDW 12.2 % Platelet Count 232 150 - 450 10^9/L Specimen (Source) Anatomical Location Collection Method / Collectio n Time Received Time / Laterality Volume Blood specimen 04/10/2016 (specimen) Narrative This result has an attachment that is no t available. Min Crane MD LAB - BLOOD ORDERABLES documented in this encounter Visit Diagnoses Diagnosis Intractable 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 aur a and without status migrainosus - Primary Chronic migraine without aura, with intr actable migraine, so stated, without mention of status migrainosus Migraine without aura and without status migrainosus, not intractable Migraine without aura, without mention o f intractable migraine without mention of status migrainosus Sleep disorder Sleep disturbance, unspecified documented in this encounter Care Teams Telehealth Nurse Relationship Specialty Start Date End Date Alfonso Tang PCP - General Family Practice 09/04/13 08/12/21 Dayanara Bee MD MD Pediatrics 12/26/[address] [place] [address] [address] [place] [address] Min Crane MD MD Neurology 03/30/16 documented as of this encounter
--- OUTSIDE RECORDS SUMMARY | 2022-06-30 09:51 | XMS_ITS | Encounter Summary ---
:1991 Author Organization [facility] Address [address] [place] [address] Care Team Providers Name Role Phone Alfonso Tang Primary Care Provider Unavailable Dayanara Bee MD Unavailable Min Lange MD Unavailable Unavailable Marlo Madsen MD Unavailable Mel Buckley RN Unavailable Encounter Details Date Type Department Care Team Description 04/15/2016 Records - [facility] CONVERSION Provider, oZ campbell Social History Tobacco Use Types Packs/Day Years Used Date Smoking Tobacco: Never Smokeless Tobacco: Never Alcohol Use Standard Drinks/Week Comments No 0 (1 standard drink = 0.6 oz pure alcoho l) Sex Assigned at Date Recorded 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 Plan of Treatment Upcoming Encounters Date Type Specialty Care Team Description 08/19/2022 Office Visit Gastroenterology Mirza Vasquez MD [address] [place] [address] (Wo rk) documented as of this encounter Visit Diagnoses Not on filedocumented in this encounter Care Teams Chief Medical Director Relationship Specialty Start Date End Date Alfonso Tang PCP - General Family Practice 09/04/13 08/12/21 Dayanara Bee MD MD Pediatrics 12/26/[address] [place] [address] [address] [place] [address] Min Lange MD MD Neurology 03/30/16 Marlo Madsen MD Cardiology 10/27/[address] [place] [address] Mel Buckley, DIAZ Nurse Coordinator Physical Medicine and 12/02/16 Rehabilitation documented as of this encounter
--- OUTSIDE RECORDS SUMMARY | 2022-06-30 09:51 | XMS_ITS | Encounter Summary ---
:1991 Author Organization [facility] Address [address] [place] [address] Care Team Providers Name Role Phone Alfonso Tang Primary Care Provider Unavailable Dayanara Bee MD Unavailable Min Lange MD Unavailable Unavailable Marlo Madsen MD Unavailable Mel Buckley RN Unavailable Encounter Details Date Type Department Care Team Description 04/09/2016 Records - [facility] CONVERSION Provider, Zo campbell Social History Tobacco Use Types Packs/Day Years Used Date Smoking Tobacco: Never Smokeless Tobacco: Never Alcohol Use Standard Drinks/Week Comments No 0 (1 standard drink = 0.6 oz pure alcoho l) Sex Assigned at Date Recorded 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 Plan of Treatment Upcoming Encounters Date Type Specialty Care Team Description 08/19/2022 Office Visit Gastroenterology Mirza Vasquez MD [address] [place] [address] (Wo rk) documented as of this encounter Visit Diagnoses Not on filedocumented in this encounter Care Teams Binding Cutter Relationship Specialty Start Date End Date Alfonso Tang PCP - General Family Practice 09/04/13 08/12/21 Dayanara Bee MD MD Pediatrics 12/26/[address] [place] [address] [address] [place] [address] Min Lange MD MD Neurology 03/30/16 Marlo Madsen MD Cardiology 10/27/[address] [place] [address] Mel Buckley, DIAZ Nurse Coordinator Physical Medicine and 12/02/16 Rehabilitation documented as of this encounter
--- OUTSIDE RECORDS SUMMARY | 2022-06-30 09:51 | XMS_ITS | Encounter Summary ---
:1990 Author Organization [facility] Address [address] [place] [address] Care Team Providers Name Role Phone Alfonso Tang Primary Care Provider Unavailable Dayanara Bee MD Unavailable Min Lange MD Unavailable Unavailable Reason for Visit Reason Comments Diarrhea Encounter Details Date Type Department Care Team Description 04/15/2016 Office Visit [facility] Gastroenterology Pedro, Jing ritable bowel syndrome without diarrhea (Primary Dx); and IBD Clinic [place] Adenomatous colon polyp [address] [facility] MD [place] [facility] Floor [address] [place] [phone] [phone] Social History Tobacco Use Types Packs/Day Years Used Date Smoking Tobacco: Never Smokeless Tobacco: Never Alcohol Use Standard Drinks/Week Comments No 0 (1 standard drink = 0.6 oz pure alcoho l) Sex Assigned at Date Recorded Female 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 Continue Linzess daily (290 mcg). 2. A high fiber diet with plenty of fluids (up to 8 glasses of water daily) is suggested. 3. Can increase dietary fiber and consider addition of Metamucil or Citrucel 1 tablespoon once or twice daily can be used. 4. Ok for use of as needed Miralax during periods of more significant constipation. 5. Ok to continue topical OTC treatments for small anal tears. Please notify us if having more significant discomfort for consideration of other therapies. 6. Keep up the great work with increased physical activity. 7. Follow-up in GI clinic in 6 months' time. 8. If you have any questions, please don't hesitate to contact our GI RN Clinic Coordinators at (select option #3 for nurse line). documented in this encounter Progress Notes Abby Vasquez MD - 04/15/2016 11:05 AM CDT GI CLINIC VISIT CC: follow-up IBS-C ASSESSMENT/PLAN: K58.0) Irritable bowel syndrome with diarrhea?? (primary encounter diagnosis) Comment: ?Improved from prior baseline with Linzess, with overall good stool volume output, though now with periods of looser stools as well as firmer stools with straining. Will work on dietary adjustments toattempt to regulate bowel pattern with continued medical management of constipation. Ensure plan in place for more pronounced constipation symptoms. Notably, pt denies prior trial of Amitiza. Plan: ?? - will refill linaclotide (LINZESS) 290 MCG capsule - maintain a high fiber diet with plenty of fluids (up to 8 glasses of water daily)--> ensure youare maintaining adequate hydration with newly increased physical activity, particularly in this summer weather - increase dietary fiber and consider addition of Metamucil or Citrucel 1 tablespoon once or twice daily can be used. - ok for use of as needed Miralax if more significant periods of constipation. - continue topical OTC treatments for small anal tears. Please notify us if having more significant discomfort for consideration of other therapies. - keep up the great work with increased physical activity and healthy diet changes (D12.6) Adenomatous colon polyp Comment: ?Pt underwent early screening (in December 2014) due to family history of colon cancer and polyps. OneTA found and removed. ?? Has been evaluated by genetics counselor (encounter 01/01/15), not felt to be at risk for Verduzco syndrome based on current data. ?? Plan: ?? - surveillance colonoscopy in 2-3 years, then Q 3yrs for at least two colonoscopies --> reviewed again with patient today who believes, schedule-dickerson, colonoscopy may be best completed summer 2016 ?? RTC 6 months It was a pleasure to participate in the care of this patient; please contact us with any further questions. A total of 30 minutes was spent with this patient, >50% of which was counseling regarding the above delineated issues. Abby Vasquez MD Research Pharmacistsupervisor sewing room Division of Gastroenterology, Hepatology and Nutrition [facility] HPI: Ms. Machado is a 25 year old female with dysautonomia, frequent migraine HAs, chronic diffuse abdominal pain, nausea, and prior adenomatous polyp who returns to GI clinic for follow-up of her IBS-C.She was previously followed by Dr. Dawson of GI. Her initial visit with this provider was 10/16/15. At her last visit, Ms. Machado reported good response to Linzess which she had been on for just over a year. She was stooling several times weekly going no longer than 3 days without a BM (as opposed to > 1 week). One to two times a month she experienced an episodes of loose to liquid stools with cramping. She'd had no side effects. Her chronic multifactorial nausea persisted but was helped by use of ondansetron. Control of her constipation did not improve her nausea but she continued to maintain her weight and tolerate po intakewithout issue. Today, Ms. Machado continues on daily Linzess (290 mcg) without issue. The medication has not been as effective at maintaining her bowel pattern as previously. At this time she reports in a typical week she will have 3-4 days with hard stools with some straining and noting occasional anal tearing. On these days she can produce 1-2 small, firm stools. The rest of the week she will go 3-4 times in aday producing what she feels is a high volume of looser/unformed stools. She denies any new change in her medications, nor marked change in her daily hydration or caffeine intake. She has increased her physical activity and decreased her portion sizes leading to an intended weight loss of 25 lbs in the last 3 month. In regards to her nausea and vague abdominal pains they are unchanged from baseline and do not seemto vary with her changing stool pattern. Ms. Machado continues to find ondansetron helpful for severe episodes of nausea (particularly the nighttime episodes where she awakens feeling nauseated). As d alfonsoussed previously, Ms. Machado does not believe this nocturnal episodes are related to nocturnalrefluxant and had no prior response to attempts at acid control. ROS: Remainder of comprehensive ROS is otherwise negative. PROBLEM LIST Patient Active Problem List Diagnosis Date Noted ??? Syncope 01/25/2014 Priority: Medium ??? Intractable 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 aura 10/05/2013 Problem list name updated by automated process. Provider to review ??? Autonomic nervous system disorder 10/05/2013 ??? Abdominal pain, generalized 10/05/2013 PERTINENT MEDICATIONS: Current Outpatient Prescriptions Medication ??? meclizine (ANTIVERT) 25 MG tablet ??? ondansetron (ZOFRAN-ODT) 4 MG disintegrating tablet ??? desvenlafaxine succinate (PRISTIQ) 100 MG TB24 24 hr tablet ??? Multiple Vitamin (MULTIVITAMIN S) CAPS ??? zonisamide (ZONEGRAN) 50 MG capsule ??? oxyCODONE-acetaminophen (PERCOCET) 5-325 MG per tablet ??? dihydroergotamine (MIGRANAL) 4 MG/ML nasal spray ??? fludrocortisone (FLORINEF) 0.1 MG tablet ??? citalopram (CELEXA) 10 MG/5ML solution ??? linaclotide (LINZESS) 290 MCG capsule ??? order for DME ??? Multiple Vitamins-Minerals (WOMENS MULTIVITAMIN PLUS PO) ??? [DISCONTINUED] Desvenlafaxine Succinate (PRISTIQ) 100 MG TB24 24 hr tablet No current facility-administered medications for this visit. PHYSICAL EXAMINATION: Vitals BP 115/81 mmHg Pulse 85 Ht 1.651 m (5' 5) Wt 92.171 kg (203 lb 3.2 oz) BMI 33.81 kg/m2 SpO2 96% Wt Wt Readings from Last 2 Encounters: 04/15/16 92.171 kg (203 lb 3.2 oz) 10/16/15 100.699 kg (222 lb) Gen: Pt sitting up on exam table in NAD, interactive and cooperative on exam Eyes: sclerae anicteric, no injection ENT: OP clear, MMM Cardiac: RRR, nl S1, S2, radial pulses +2 b/l, no peripheral edema Resp: Clear on anterior exam GI: Normoactive BS, abd soft, flat, nontender Skin: Warm, dry, no jaundice, nails appear healthy Neuro: alert, oriented, answers questions appropriately PERTINENT STUDIES: Office Visit on 03/21/2015 Component Date Value Ref Range Status ??? Specimen Description 03/21/2015 Feces Final ??? Ova and Parasite Exam 03/21/2015 Final Value:Routine parasitology exam negative Cryptosporidium, Cyclospora, and Microsporidia are not readily detected by this method. A single negative specimen does not rule out parasitic infection. ??? Micro Report Status 03/21/2015 FINAL 03/22/2015 Final documented in this encounter Nursing Notes Ama Bustamante RN - 04/15/2016 11:51 AM CDT Printed after visit summary given to patient along with verbal instructions. Follow up appointment given. Jodie Rosario CMA - 04/15/2016 11:13 AM CDT Chief Complaint Patient presents with ??? Diarrhea Filed Vitals: 04/15/16 1110 BP: 115/81 Pulse: 85 Height: 1.651 m (5' 5) Weight: 92.171 kg (203 lb 3.2 oz) SpO2: 96% Body mass index is 33.81 kg/(m^2). Jodie Rosario CMA documented in this encounter Plan of Treatment Upcoming Encounters Date Type Specialty Care Team Description 08/19/2022 Office Visit Gastroenterology Mirza Vasquez MD [address] [place] [phone] (Wo rk) documented as of this encounter Visit Diagnoses Diagnosis Irritable bowel syndrome without diarrhe a - Primary Irritable bowel syndrome Adenomatous colon polyp Benign neoplasm of colon documented in this encounter Care Teams Biometrics Experimentalist Relationship Specialty Start Date End Date Alfonso Tang PCP - General Family Practice 09/04/13 08/12/21 Dayanara Bee MD MD Pediatrics 12/26/[address] [place] [address] 75 [place], [place] [address] Min Lange MD MD Neurology 03/30/16 documented as of this encounter
--- OUTSIDE RECORDS SUMMARY | 2022-06-30 09:51 | XMS_ITS | Encounter Summary ---
:1991 Author Organization [facility] Address [address] [place] [address] Care Team Providers Name Role Phone Alfonso Tang Primary Care Provider Unavailable Dayanara Bee MD Unavailable Reason for Visit Reason Onset Date Comments Refill Request 01/13/2016 Encounter Details Date Type Department Care Team Description 01/13/2016 Refill [facility] [address] [place] [address] [phone] Social History Tobacco Use Types Packs/Day Years Used Date Smoking Tobacco: Never Smokeless Tobacco: Never Alcohol Use Standard Drinks/Week Comments No 0 (1 standard drink = 0.6 oz pure alcoho l) Sex Assigned at Date Recorded 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 as of this encounter Plan of Treatment Upcoming Encounters Date Type Specialty Care Team Description 08/19/2022 Office Visit Gastroenterology Mirza Vasquez MD [address] [place] [address] (Wo rk) documented as of this encounter Visit Diagnoses Diagnosis Autonomic dysfunction - Primary Unspecified disorder of autonomic nervou s system documented in this encounter Care Teams Veneer Jointer Helper Relationship Specialty Start Date End Date Alfonso Tang PCP - General Family Practice 12/23/13 11/30/21 Dayanara Bee MD MD Pediatrics 12/26/[address] [place] [address] documented as of this encounter
--- OUTSIDE RECORDS SUMMARY | 2022-06-30 09:51 | XMS_ITS | Encounter Summary ---
:1991 Author Organization [facility] Address [address] [place] [address] Care Team Providers Name Role Phone Alfonso Tang Primary Care Provider Unavailable Dayanara Bee MD Unavailable Min Lange MD Unavailable Unavailable Encounter Details Date Type Department Care Team Description 05/05/2016 Orders Only [facility] Miranda Trujillo In tractable chronic Physicians [facility] migraine without aura Neurology Clinic and without status [address] [facility] [address] [place] [address] Social History Tobacco Use Types Packs/Day Years Used Date Smoking Tobacco: Never Smokeless Tobacco: Never Alcohol Use Standard Drinks/Week Comments No 0 (1 standard drink = 0.6 oz pure alcoho l) Sex Assigned at Date Recorded 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 migrainosus CBC WITH PLATELETS Routine 04/10/2016 Intractable chronic Re sults for this migraine without aura proced ure are in the and without status results s ection. migrainosus documented in this encounter Results Basic metabolic panel (04/10/2016) P athologist Signature Sodium 137 mmol/L Potassium 3.9 [...] attachment that is no t available. Min Lange MD LAB - BLOOD ORDERABLES CBC with [...] attachment that is no t available. Min Lange MD LAB - BLOOD ORDERABLES documented in this encounter Visit Diagnoses Diagnosis Intractable 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 aur a and without status migrainosus Chronic migraine without aura, with intr actable migraine, so stated, without mention of status migrainosus documented in this encounter Care Teams Communications Department Chairperson Relationship Specialty Start Date End Date Alfonso Tang PCP - General Family Practice 09/04/13 08/12/21 Dayanara Bee MD MD Pediatrics 12/26/[address] [place] [address] [address] [place] [address] Min Lange MD MD Neurology 03/30/16 documented as of this encounter
--- OUTSIDE RECORDS SUMMARY | 2022-06-30 09:51 | XMS_ITS | Encounter Summary ---
:1991 Author Organization [facility] Address [address] [place] [address] Care Team Providers Name Role Phone Alfonso Tang Primary Care Provider Unavailable Dayanara Bee MD Unavailable Reason for Visit Reason Comments Medication Refill Encounter Details Date Type Department Care Team Description 02/10/2016 Refill [facility] Min Lange MD Medication Refill [facility] Neurology Clinic [address] [place] [address], [address] [place] [address] Social History Tobacco Use Types Packs/Day Years Used Date Smoking Tobacco: Never Smokeless Tobacco: Never Alcohol Use Standard Drinks/Week Comments No 0 (1 standard drink = 0.6 oz pure alcoho l) Sex Assigned at Date Recorded 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 documented as of this encounter Plan of Treatment Upcoming Encounters Date Type Specialty Care Team Description 08/19/2022 Office Visit Gastroenterology Mirza Vasquez MD [address] [place], [place] [phone] (Wo rk) documented as of this encounter Visit Diagnoses Diagnosis Intractable 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 aur a - Primary Chronic migraine without aura, with intr actable migraine, so stated, without mention of status migrainosus Migraine without aura and without status migrainosus, not intractable Migraine without aura, without mention o f intractable migraine without mention of status migrainosus documented in this encounter Care Teams Brush Stainer Relationship Specialty Start Date End Date Alfonso Tang PCP - General Family Practice 09/04/13 08/12/21 Dayanara Bee MD MD Pediatrics 12/26/[address] [place] [phone] documented as of this encounter
--- OUTSIDE RECORDS SUMMARY | 2022-06-30 09:51 | XMS_ITS | Encounter Summary ---
:1991 Author Organization [facility] Address [address] [place] [address] Care Team Providers Name Role Phone Alfonso Tang Primary Care Provider Unavailable Dayanara Bee MD Unavailable Reason for Visit Reason Onset Date Comments Refill Request 01/09/2016 Encounter Details Date Type Department Care Team Description 01/09/2016 Refill [facility] [address] [place] [address] [phone] Social History Tobacco Use Types Packs/Day Years Used Date Smoking Tobacco: Never Smokeless Tobacco: Never Alcohol Use Standard Drinks/Week Comments No 0 (1 standard drink = 0.6 oz pure alcoho l) Sex Assigned at Date Recorded 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 documented as of this encounter Plan of Treatment Upcoming Encounters Date Type Specialty Care Team Description 08/19/2022 Office Visit Gastroenterology Mirza Vasquez MD [address] [place] [address] (Wo rk) documented as of this encounter Visit Diagnoses Diagnosis Autonomic dysfunction - Primary Unspecified disorder of autonomic nervou s system documented in this encounter Care Teams Doughmaker Relationship Specialty Start Date End Date Alfonso Tang PCP - General Family Practice 12/23/13 11/30/21 Dayanara Bee MD MD Pediatrics 12/26/[address] [place] [phone] documented as of this encounter
--- OUTSIDE RECORDS SUMMARY | 2022-06-30 09:51 | XMS_ITS | Encounter Summary ---
:1991 Author Organization [facility] Address [address] [place] [address] Care Team Providers Name Role Phone Alfonso Tang Primary Care Provider Unavailable Dayanara Bee MD Unavailable Min Lange MD Unavailable Unavailable Marlo Madsen MD Unavailable Mel Buckley RN Unavailable Encounter Details Date Type Department Care Team Description 04/10/2016 [facility] wit hout aura Laboratory and without status [address] migrainosus [address] [place] [address] Social History Tobacco Use Types Packs/Day Years Used Date Smoking Tobacco: Never Smokeless Tobacco: Never Alcohol Use Standard Drinks/Week Comments No 0 (1 standard drink = 0.6 oz pure alcoho l) Sex Assigned at Date Recorded Female 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 documented as of this encounter Plan of Treatment Upcoming Encounters Date Type Specialty Care Team Description 08/19/2022 Office Visit Gastroenterology Mirza Vasquez MD [address] [place], [place] [address] (Wo rk) documented as of this encounter Visit Diagnoses Diagnosis Intractable 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 aur a and without status migrainosus Chronic migraine without aura, with intr actable migraine, so stated, without mention of status migrainosus documented in this encounter Care Teams Vice President Of Consulting Services Relationship Specialty Start Date End Date Alfonso Tang PCP - General Family Practice 09/04/13 08/12/21 Dayanara Bee MD MD Pediatrics 12/26/[address] [place] [address] [address] [place] [address] Min Lange MD MD Neurology 03/30/16 Marlo Madsen MD Cardiology 10/27/[address] [place], [place] [address] Mel Buckley, RN Nurse Coordinator Physical Medicine and 12/02/16 Rehabilitation documented as of this encounter
--- OUTSIDE RECORDS SUMMARY | 2022-06-30 09:51 | XMS_ITS | Encounter Summary ---
:1991 Author Organization [facility] Address [address] [place] [address]. [place] [address] Care Team Providers Name Role Phone Alfonso Tang Primary Care Provider Unavailable Dayanara Bee MD Unavailable Min Lange MD Unavailable Unavailable Marlo Madsen MD Unavailable Mel Buckley RN Unavailable Encounter Details Date Type Department Care Team Description 04/10/2016 [facility] Min Lange MD In [facility] Provider, Historical migraine without Laboratory aura and without [address] status migr ainosus [address] [place] [address] Social History Tobacco Use Types Packs/Day Years Used Date Smoking Tobacco: Never Smokeless Tobacco: Never Alcohol Use Standard Drinks/Week Comments No 0 (1 standard drink = 0.6 oz pure alcoho l) Sex Assigned at Date Recorded Female 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 documented as of this encounter Plan of Treatment Upcoming Encounters Date Type Specialty Care Team Description 08/19/2022 Office Visit Gastroenterology Mirza Vasquez MD [address] [place], [place] [phone] (Wo rk) documented as of this encounter Visit Diagnoses Diagnosis Intractable 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 aur a and without status migrainosus Chronic migraine without aura, with intr actable migraine, so stated, without mention of status migrainosus documented in this encounter Care Teams Tiedown Operator Relationship Specialty Start Date End Date Alfonso Tang PCP - General Family Practice 09/04/13 08/12/21 Dayanara Bee MD MD Pediatrics 12/26/[address] [place] [address] 75 [place] [address] Min Lange MD MD Neurology 03/30/16 Marlo Madsen MD Cardiology 10/27/[address] [place] [address] Mel Buckley, RN Nurse Coordinator Physical Medicine and 12/02/16 Rehabilitation documented as of this encounter
--- OUTSIDE RECORDS SUMMARY | 2022-06-30 09:52 | XMS_ITS | Encounter Summary ---
:1990 Author Organization [facility] Address [address] [place] [address] Care Team Providers Name Role Phone Alfonso Tang Primary Care Provider Unavailable Dayanara Bee MD Unavailable Reason for Visit Reason Comments RECHECK 4 month follow up Encounter Details Date Type Department Care Team Description 01/18/2015 Office Visit [facility] Min Garrett, Rex m igraine without aura, with intractable migraine, so stated, without mention of status migrainosus (Primary Dx); [facility] Family history of brain aneurysm [facility] [address] [place] [address], [facility] [address] [place] [address] Social History Tobacco Use Types Packs/Day Years Used Date Smoking Tobacco: Never Smokeless Tobacco: Never Alcohol Use Standard Drinks/Week Comments No 0 (1 standard drink = 0.6 oz pure alcoho l) Sex Assigned at Date Recorded 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 This is for reevaluation of migraine. She also has a history of recurrent syncope and dysautonomia. She is currently being evaluated for a mitochondrial disorder. Her headaches have remained stable now at about 1 headache a month. Unfortunately, she will still need to go into the emergency room to get relief. There is a lot of nausea and vomiting with the headaches. The Zofran ODT that she has does not alleviate this. She wonders about oral Reglan to utilize since the intravenous Reglan she receives in the emergency room oftentimes helps. She has no interest in utilizing a suppository. Unfortunately, her headaches have not responded in the past to a variety of triptan agents includingImitrex injection. She is tolerating the Zonegran well as a dose of 125 mg. On 01/07/2015 she had a normal CBC and comprehensive metabolic panel. Today, she also mentions to me that she was told she should be screened for intracranial aneurysms. Her mother has an intracranial aneurysm as does her maternal uncle and also a maternal cousin whose aneurysm ruptured. IMPRESSION: 1. Migraine. 2. Strong family history of intracranial aneurysms. PLAN: She is going to increase her Zonegran dose to 150 mg. I discussed other acute treatments for her headaches including nasal DHE and Midrin, since she is not responded to triptans in the past. She would first like to try the Midrin and I gave her a prescription. I did give her a prescription for oral Reglan 10 mg. I told her to be very judicious in using this agent as long-term use can result in extrapyramidal side effects. She is aware of this. In view of her strong family history of intracranial aneurysms, I have ordered an intracranial MR angiogram for screening purposes. I will relay the results to her when available. I do plan to see her back for routine followup in 4 months. ADDENDUM 01/23/15: MRA NEGATIVE-NO ANEURYSM. Called and left message for patient. 01/31/15: Head MRI report from [facility] done 10/16/2011 received. Normal study. Sincerely, Min Crane MD ADDENDUM: Total visit time 25 minutes. More than 50% of this time was spent in counseling and coordination of care. MIN CRANE MD MT: [place] Name: LATRICIA MACHADO Account: [id number] : 1990 Service Date: 01/18/2015 Document: [id number] documented in this encounter Plan of Treatment Upcoming Encounters Date Type Specialty Care Team Description 08/19/2022 Office Visit Gastroenterology Mirza Vasquez MD [address] [place] [id number] (Wo rk) documented as of this encounter Results MRA Brain & Angiogram (01/22/2015 6:29 PM CDT) Anatomical Region Laterality Modality Head, SUBRAD MR NEURO, UMP MR NEURO Magn etic Resonance Specimen (Source) Anatomical Location Collection Method / Collectio n Time Received Time / Laterality Volume Impressions 01/23/2015 10:05 AM CDT Impression: 1. No evidence of intracranial aneurysm or other abnormality on head MR angiography. 2. No evidence of intracranial hemorrhag e or mass. REJI YATES MD Narrative 01/23/2015 10:05 AM CDT Brain MRI without intravenous contrast Head MRA without intravenous contrast History: ??Evaluate for aneurysm. Strong family history of intracranial aneurysms,Family history of stroke (cere brovascular). Comparison: ??none Technique: BRAIN MRI: sagittal T1-weighted and axia l diffusion, FLAIR, T2-weighted, and susceptibility images o f the whole brain without intravenous contrast. HEAD MR Angiogram: 3D [id number] MRA of the head was also obtained without intravenous contrast. Findings: There is no mass effect or midline shif t or intracranial hemorrhage. Axial diffusion weighted images demonstr ate no definite acute infarction. The ventricles do not appear enlarged out of proportion to the cerebral sulci. The major intracrani al vascular flow-voids do appear patent. Head MRA demonstrates patent major intra cranial arteries. The anterior communicating artery appears patent. Reg arding the posterior communicating arteries, they appear osorio nt bilaterally. Procedure Note Reji Yates MD - 01/11 Brain MRI without intravenous contrast Head MRA without intravenous contrast History: Evaluate for aneurysm. Strong f amily history of intracranial aneurysms,Family history of stroke (cere brovascular). Comparison: none Technique: BRAIN MRI: sagittal T1-weighted and axia l diffusion, FLAIR, T2-weighted, and susceptibility images o f the whole brain without intravenous contrast. HEAD MR Angiogram: 3D [id number] MRA of the head was also obtained without intravenous contrast. Findings: There is no mass effect or midline shif t or intracranial hemorrhage. Axial diffusion weighted images demonstr ate no definite acute infarction. The ventricles do not appear enlarged out of proportion to the cerebral sulci. The major intracrani al vascular flow-voids do appear patent. Head MRA demonstrates patent major intra cranial arteries. The anterior communicating artery appears patent. Reg arding the posterior communicating arteries, they appear osorio nt bilaterally. IMPRESSION Impression: 1. No evidence of intracranial aneurysm or other abnormality on head MR angiography. 2. No evidence of intracranial hemorrhag e or mass. REJI YATES MD Min Crane MD IMG MRI ORDERABLES documented in this encounter Visit Diagnoses Diagnosis Chronic migraine without aura, with intr actable migraine, so stated, without mention of status migrainosus - Primary Family history of brain aneurysm Family history of other cardiovascular d iseases Family history of brain aneurysm Family history of other cardiovascular d iseases documented in this encounter Care Teams Software Intern Relationship Specialty Start Date End Date Alfonso Tang PCP - General Family Practice 09/04/13 08/12/21 Dayanara Bee MD MD Pediatrics 12/26/[address] [place] [address] [address] [place] [address] documented as of this encounter
--- OUTSIDE RECORDS SUMMARY | 2022-06-30 09:52 | XMS_ITS | Encounter Summary ---
:1990 Author Organization [place] Address [address] [place] [address] Care Team Providers Name Role Phone Alfonso Tang Primary Care Provider Unavailable Dayanara Bee MD Unavailable Min Lange MD Unavailable Unavailable Marlo Madsen MD Unavailable Mel Buckley RN Unavailable Encounter Details Date Type Department Care Team Description 12/23/2015 [facility] Alfonso Tang RETIRED [facility] Provider, Historical [address] [address] Social History Tobacco Use Types Packs/Day Years Used Date Smoking Tobacco: Never Smokeless Tobacco: Never Alcohol Use Standard Drinks/Week Comments No 0 (1 standard drink = 0.6 oz pure alcoho l) Sex Assigned at Date Recorded 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 documented as of this encounter Plan of Treatment Upcoming Encounters Date Type Specialty Care Team Description 08/19/2022 Office Visit Gastroenterology Mirza Vasquez MD [address] [place] [address] [phone] (Wo rk) documented as of this encounter Visit Diagnoses Not on filedocumented in this encounter Care Teams Store Sales Manager Relationship Specialty Start Date End Date Alfonso Tang PCP - General Family Practice 09/04/13 08/12/21 Dayanara Bee MD MD Pediatrics 12/26/14 [address] [facility] [address] [place] [address] Min Lange MD MD Neurology 03/30/16 Marlo Madsen MD Cardiology 10/27/16 [place] [facility] [address] [place], [place] [address] Mel Buckley, RN Nurse Coordinator Physical Medicine and 12/02/16 Rehabilitation documented as of this encounter
--- OUTSIDE RECORDS SUMMARY | 2022-06-30 09:52 | XMS_ITS | Encounter Summary ---
:1990 Author Organization [place] Address [address] [place] [address]. [place] [address] Care Team Providers Name Role Phone Alfonso Tang Primary Care Provider Unavailable Dayanara Bee MD Unavailable Reason for Visit Reason Onset Date Comments Clinic Care Coordination - Follow-up 01/24/2015 rec ommendation for colonoscopy in 2 to 3 years. Encounter Details Date Type Department Care Team Description 01/24/2015 Telephone Medicine GI - 1E Ama Bustamante RN Clinic Care Coordination [facility] [phone] [facility] (Work) (recommendation for 1st Floor, Clinic 1E colonoscopy in 2 to 3 6 [facility] years. 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 Patient is aware. documented in this encounter Plan of Treatment Upcoming Encounters Date Type Specialty Care Team Description 08/19/2022 Office Visit Gastroenterology Mirza Vasquez MD [address] [place] [address] (Wo rk) documented as of this encounter Visit Diagnoses Not on filedocumented in this encounter Care Teams Special Officer Automat Relationship Specialty Start Date End Date Alfonso Tang PCP - General Family Practice 09/04/13 08/12/21 Dayanara Bee MD MD Pediatrics 12/26/14 [address] [facility] [address] [place] [address] documented as of this encounter
--- OUTSIDE RECORDS SUMMARY | 2022-06-30 09:52 | XMS_ITS | Encounter Summary ---
:1990 Author Organization [place] Address [address] [place] [address] Care Team Providers Name Role Phone Alfonso Tang Primary Care Provider Unavailable Dayanara Bee MD Unavailable Min Lange MD Unavailable Unavailable Marlo Madsen MD Unavailable Mel Buckley RN Unavailable Reason for Visit Reason Comments Other Encounter Details Date Type Department Care Team Description 09/21/2015 [facility] Alfonso Tang RETIRED Other [facility] Provider, Historical [address] [phone] Social History Tobacco Use Types Packs/Day Years Used Date Smoking Tobacco: Never Smokeless Tobacco: Never Alcohol Use Standard Drinks/Week Comments No 0 (1 standard drink = 0.6 oz pure alcoho l) Sex Assigned at Date Recorded 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 encounter Plan of Treatment Upcoming Encounters Date Type Specialty Care Team Description 08/19/2022 Office Visit Gastroenterology Mirza Vasquez MD [address] [place] [address] (Wo rk) documented as of this encounter Visit Diagnoses Not on filedocumented in this encounter Care Teams Feather Trimmer Relationship Specialty Start Date End Date Alfonso Tang PCP - General Family Practice 09/04/13 08/12/21 Dayanara Bee MD MD Pediatrics 12/26/14 [address] [facility] [address] [place] [address] Min Lange MD MD Neurology 03/30/16 Marlo Madsen MD Cardiology 10/27/16 [place] [address] [facility] [address] [place] [address] Mel Buckley, DIAZ Nurse Coordinator Physical Medicine and 12/02/16 Rehabilitation documented as of this encounter
--- OUTSIDE RECORDS SUMMARY | 2022-06-30 09:52 | XMS_ITS | Encounter Summary ---
:1990 Author Organization [place] Address [address] [place] [address]. [place] [address] Care Team Providers Name Role Phone Alfonso Tang Primary Care Provider Unavailable Dayanara Bee MD Unavailable Encounter Details Date Type Department Care Team Description 01/22/2015 Radiant Appointment [facility] history of Center brain aneurysm 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 documented in this encounter Results MRA Brain & Angiogram [...] evidence of intracranial hemorrhag e or mass. WAQAS YATES MD Narrative 01/23/2015 10:05 AM CDT Brain MRI without intravenous contrast Head MRA without intravenous contrast History: ??Evaluate for aneurysm. Strong family history of intracranial aneurysms,Family history of stroke (cere brovascular). Comparison: ??none Technique: BRAIN MRI: sagittal T1-weighted and axia l diffusion, FLAIR, T2-weighted, and susceptibility images o f the whole brain without intravenous contrast. HEAD MR Angiogram: 3D [id number] MRA of the head was also obtained [...] they appear osorio nt bilaterally. Procedure Note Waqas Yates MD - 01/11 Brain MRI without intravenous contrast Head MRA without intravenous contrast History: Evaluate for aneurysm. Strong f amily history of intracranial aneurysms,Family history of stroke (cere brovascular). Comparison: none Technique: BRAIN MRI: sagittal T1-weighted and axia l diffusion, FLAIR, T2-weighted, and susceptibility images o f the whole brain without intravenous contrast. HEAD MR Angiogram: 3D [id number] MRA of the head was also obtained [...] evidence of intracranial hemorrhag e or mass. WAQAS YATES MD Min Lange MD IMG MRI ORDERABLES documented in this encounter Visit Diagnoses Diagnosis Family history of brain aneurysm Family history of other cardiovascular d iseases documented in this encounter Care Teams Food And Nutrition Services Assistant Relationship Specialty Start Date End Date Alfonso Tang PCP - General Family Practice 09/04/13 08/12/21 Dayanara Bee MD MD Pediatrics 12/26/[address] [place] [phone] documented as of this encounter
--- OUTSIDE RECORDS SUMMARY | 2022-06-30 09:52 | XMS_ITS | Encounter Summary ---
:1990 Author Organization [place] Address [address] [place] [address] Care Team Providers Name Role Phone Alfonso Tang Primary Care Provider Unavailable Dayanara Bee MD Unavailable Reason for Visit Reason Comments Medication Refill Encounter Details Date Type Department Care Team Description 12/14/2015 Refill [facility] Min Lange MD Medication Refill Physicians [facility] Clinic [address] [place] [address], [address] [place] [address] Social History Tobacco Use Types Packs/Day Years Used Date Smoking Tobacco: Never Smokeless Tobacco: Never Alcohol Use Standard Drinks/Week Comments No 0 (1 standard drink = 0.6 oz pure alcoho l) Sex Assigned at Date Recorded 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 Plan of Treatment Upcoming Encounters Date Type Specialty Care Team Description 08/19/2022 Office Visit Gastroenterology Mirza Vasquez MD [address] [place], [place] [phone] (Wo rk) documented as of this encounter Visit Diagnoses Diagnosis Intractable 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 aur a - Primary Chronic migraine without aura, with intr actable migraine, so stated, without mention of status migrainosus Migraine without aura and without status migrainosus, not intractable Migraine without aura, without mention o f intractable migraine without mention of status migrainosus documented in this encounter Care Teams Cloth Doffer Relationship Specialty Start Date End Date Alfonso Tang PCP - General Family Practice 09/04/13 08/12/21 Dayanara Bee MD MD Pediatrics 12/26/[address] [place] [phone] documented as of this encounter
--- OUTSIDE RECORDS SUMMARY | 2022-06-30 09:52 | XMS_ITS | Encounter Summary ---
:1990 Author Organization [place] Address [address] [place] [address] Care Team Providers Name Role Phone Alfonso Tang Primary Care Provider Unavailable Dayanara Bee MD Unavailable Reason for Visit Reason Onset Date Comments *-*INCOMING RECORDS*-* 09/25/2015 Encounter Details Date Type Department Care Team Description 09/25/2015 PRE VISIT Medicine GI - 1E Abby Vasquez *-*INCOMING RECORDS*-* Ayan Landers MD Building [address] [place] [address] 1st Floor, Clinic [address] [phone] (Wo rk) [address] [phone] Social History Tobacco Use Types Packs/Day Years Used Date Smoking Tobacco: Never Smokeless Tobacco: Never Alcohol Use Standard Drinks/Week Comments No 0 (1 standard drink = 0.6 oz pure alcoho l) Sex Assigned at Date Recorded 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 Lange in [facility]. ECTOR OPEN DIE documented in this encounter Plan of Treatment Upcoming Encounters Date Type Specialty Care Team Description 08/19/2022 Office Visit Gastroenterology Mirza Vasquez MD [address] [place] [address] (Wo rk) documented as of this encounter Visit Diagnoses Not on filedocumented in this encounter Care Teams Washateria Attendant Relationship Specialty Start Date End Date Alfonso Tang PCP - General Family Practice 09/04/13 08/12/21 Dayanara Bee MD MD Pediatrics 12/26/[address] [place] [address] [address] [place], [place] [phone] documented as of this encounter
--- OUTSIDE RECORDS SUMMARY | 2022-06-30 09:52 | XMS_ITS | Encounter Summary ---
:1990 Author Organization [facility] Address [address] [place] [address] Care Team Providers Name Role Phone Alfonso Tang Primary Care Provider Unavailable Dayanara Bee MD Unavailable Reason for Visit Reason Onset Date Comments Refill Request 10/08/2015 Zonisamide 50 mg Encounter Details Date Type Department Care Team Description 10/08/2015 Refill [facility] Min Lange, Refill Request Physicians [facility] (Zonisami de 50 mg) Neurology Clinic [address] [place] [address], [facility] [address] [place] [address] Social History Tobacco Use Types Packs/Day Years Used Date Smoking Tobacco: Never Smokeless Tobacco: Never Alcohol Use Standard Drinks/Week Comments No 0 (1 standard drink = 0.6 oz pure alcoho l) Sex Assigned at Date Recorded 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 of 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 encounter Plan of Treatment Upcoming Encounters Date Type Specialty Care Team Description 08/19/2022 Office Visit Gastroenterology Mirza Vasquez MD [address] [place], [place] [phone] (Wo rk) documented as of this encounter Visit Diagnoses Diagnosis Intractable 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 aur a - Primary Chronic migraine without aura, with intr actable migraine, so stated, without mention of status migrainosus Migraine without aura and without status migrainosus, not intractable Migraine without aura, without mention o f intractable migraine without mention of status migrainosus documented in this encounter Care Teams Lathe Set Up Person Relationship Specialty Start Date End Date Alfonso Tang PCP - General Family Practice 09/04/13 08/12/21 Dayanara Bee MD MD Pediatrics 12/26/[address] [place] [address] [address] [place] [address] documented as of this encounter
--- OUTSIDE RECORDS SUMMARY | 2022-06-30 09:52 | XMS_ITS | Encounter Summary ---
:1990 Author Organization [facility] Address [address] [place] [address] Care Team Providers Name Role Phone Alfonso Tang Primary Care Provider Unavailable Dayanara Bee MD Unavailable Reason for Visit Reason Comments Headache Encounter Details Date Type Department Care Team Description 06/06/2015 Hospital Encounter [facility] Joseph Fraser MD [address] [place] [phone] Migraine DEPARTMENT Provider, Kayce [address] [place] [phone] Social History Tobacco Use Types Packs/Day Years Used Date Smoking Tobacco: Never Smokeless Tobacco: Never Alcohol Use Standard Drinks/Week Comments No 0 (1 standard drink = 0.6 oz pure alcoho l) Sex Assigned at Date Recorded 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 Last Filed Vital Signs Vital Sign Reading Time Taken Comments Blood Pressure - - Pulse - - Temperature - - Respiratory Rate - - Oxygen Saturation - - Inhaled Oxygen Concentration - - Weight 83.9 kg (185 lb) 06/06/2015 5:21 AM CDT Height 167.6 cm (5' 6) 06/06/2015 5:21 AM CDT Body Mass Index 29.86 06/06/2015 5:21 AM CDT documented in this encounter Medications at Time of Discharge Medication Sig Dispensed Refills Start Date End Date order for DMEIndications: Equipment being 1 kit 0 04/03 Dysautonomia (H), Heat ordered: Micro intolerance climate cooling vest desvenlafaxine succinate Take 100 mg by 0 014 10/31/2021 (PRISTIQ) 100 MG TB24 24 mouth every morning hr tablet Multiple Take 1 tablet by 0 10/31/19 Vitamins-Minerals (WOMENS mouth every morning MULTIVITAMIN PLUS PO) acetaminophen-isomethepte Take 1 capsule by 10 capsule 1 04/201510/16/2015 ne-dichloralphenazone mouth every 4 hours (MIDRIN) 325-65-100 MG as needed for capsuleIndications: headaches Chronic migraine without aura, with intractable migraine, so stated, without mention of status migrainosus Desvenlafaxine Succinate Take 1 tablet by 0 04/15/2016 (PRISTIQ) 100 MG TB24 24 mouth daily hr tablet drospirenone-ethinyl 0 01/27/2015 08/0 11/2015 estradiol (GIANVI) 3-0.02 MG per tablet Drospirenone-Ethinyl Take 1 tablet by 0 10/16/2015 Estradiol (LIOR PO) mouth daily fludrocortisone Take 1 tablet (0.1 90 tablet 3 01/10/2015 0 01/09/2016 (FLORINEF) 0.1 MG mg) by mouth daily tabletIndications: Autonomic dysfunction linaclotide (LINZESS) 290 Take 1 capsule (290 30 capsule 2 0 04/17/2015 07/30/2015 MCG capsuleIndications: mcg) by mouth every Irritable bowel syndrome morning (before breakfast) meclizine (ANTIVERT) 25 Take 1 tablet by 0 04/15/2016 MG tablet mouth 3 times daily as needed metoclopramide (REGLAN) One tablet as 8 tablet 0 5 10/16/2015 10 MG tabletIndications: needed for nausea Chronic migraine without related to migraine aura, with intractable migraine, so stated, without mention of status migrainosus ondansetron (ZOFRAN-ODT) Take 1 tablet by 0 04/15/2016 4 MG disintegrating mouth as needed tablet zonisamide (ZONEGRAN) 50 Three capsules a 90 capsule 6 01/1810/08/2015 MG capsuleIndications: day Chronic migraine without aura, with intractable migraine, so stated, without mention of status migrainosus documented as of this encounter ED Notes Joseph Fraser R - 06/06/2015 5:29 AM CDT History Chief Complaint Patient presents with ??? Headache HPI 25-year-old female with a history of migraine headaches who presents to the emergency department this morning for evaluation of her typical migraine symptoms. She states that she usually gets these headaches once per month and they are related to her menstrual cycle. This is a normal time for her headache and this is her typical migraine symptoms. She does have throbbing aching generalized headache with photophobia. She has nausea and vomiting associated with it. She has had no chills or fever. No neck pain. No numbness or weakness. No other complaints at this time. Past Medical History Diagnosis Date ??? Polycystic ovaries Polycystic ovarian cysts ??? Autonomic dysfunction ??? Anxiety ??? Postconcussion syndrome History reviewed. No pertinent past surgical history. History reviewed. No pertinent family history. History Substance Use Topics ??? Smoking status: Never Smoker ??? Smokeless tobacco: Never Used ??? Alcohol Use: Yes Comment: glass of wine 1/month Review of Systems Constitutional: Negative for fever and chills. HENT: Negative for sore throat. Eyes: Negative for visual disturbance. Respiratory: Negative for shortness of breath. Cardiovascular: Negative for chest pain. Gastrointestinal: Positive for nausea and vomiting. Negative for abdominal pain. Endocrine: Negative for polyuria. Genitourinary: Negative for dysuria. Musculoskeletal: Negative for neck pain and neck stiffness. Skin: Negative for rash. Neurological: Positive for headaches. Physical Exam BP 141/80 Pulse 99 Temp(Src) 97.9 ??F (36.6 ??C) (Oral) Resp 20 Ht 5' 6 (1.676 m) Wt 185 lb (83.915 kg) BMI 29.87 kg/m2 SpO2 97% LMP 05/16/2015 Physical Exam Nursing note and vitals reviewed. Constitutional: She appears well-developed and well-nourished. No distress. HENT: Head: Normocephalic and atraumatic. Eyes: Conjunctivae and EOM are normal. Pupils are equal, round, and reactive to light. Neck: Neck supple. Cardiovascular: Normal rate and regular rhythm. Pulmonary/Chest: Effort normal and breath sounds normal. Abdominal: Soft. There is no tenderness. Musculoskeletal: She exhibits no edema. Neurological: She is alert. No cranial nerve deficit. She exhibits normal muscle tone. Coordination normal. Skin: Skin is warm and dry. Psychiatric: She has a normal mood and affect. ED Course Procedures MDM The patient was seen and examined. She has a normal neurologic exam and there is nothing to make me think this is not her typical migraine symptoms. She agrees that diagnostics would not be useful based on her subjective experience. She is treated with IV saline, Toradol, Compazine, Benadryl, Dilaudid, and Decadron. After approximately 2 hours in the emergency department and after receiving her interventions she states that she is feeling much better and she is amenable to discharge. She'll follow-up with her neurologist. Discharged return instructions given, all questions answered and she is in agreement. Final Diagnoses Final diagnoses: Migraine Joseph Fraser MD 06/06/15 0718 documented in this encounter Plan of Treatment Upcoming Encounters Date Type Specialty Care Team Description 08/19/2022 Office Visit Gastroenterology Mirza Vasquez MD [address] [place] [phone] (Wo rk) documented as of this encounter Visit Diagnoses Diagnosis Migraine Migraine, unspecified, without mention o f intractable migraine without mention of status migrainosus documented in this encounter Care Teams Process Engineering Technician Relationship Specialty Start Date End Date Alfonso Tang PCP - General Family Practice 09/04/13 08/12/21 Dayanara Bee MD MD Pediatrics 12/26/[address] [place] [phone] documented as of this encounter
--- OUTSIDE RECORDS SUMMARY | 2022-06-30 09:52 | XMS_ITS | Encounter Summary ---
:1990 Author Organization [place] Address [address] [place] [id number] Care Team Providers Name Role Phone Alfonso Tang Primary Care Provider Unavailable Dayanara Bee MD Unavailable Min Lange MD Unavailable Unavailable Marlo Mdasen MD Unavailable Mel Buckley RN Unavailable Reason for Visit Reason Comments Other Encounter Details Date Type Department Care Team Description 05/05/2015 [facility] Alfonso Tang RETIRED Other [facility] Provider, Historical [address] [phone] Social History Tobacco Use Types Packs/Day Years Used Date Smoking Tobacco: Never Smokeless Tobacco: Never Alcohol Use Standard Drinks/Week Comments No 0 (1 standard drink = 0.6 oz pure alcoho l) Sex Assigned at Date Recorded 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 encounter Plan of Treatment Upcoming Encounters Date Type Specialty Care Team Description 08/19/2022 Office Visit Gastroenterology Mirza Vasquez MD [address] [place] [address] (Wo rk) documented as of this encounter Visit Diagnoses Not on filedocumented in this encounter Care Teams Head Counselor Relationship Specialty Start Date End Date Alfonso Tang PCP - General Family Practice 09/04/13 08/12/21 Dayanara Bee MD MD Pediatrics 12/26/14 [address] [facility] [address] [place] [address] Min Lange MD MD Neurology 03/30/16 Marlo Madsen MD Cardiology 10/27/16 [place] [address] [facility] [address] [place] [address] Mel Buckley, DIAZ Nurse Coordinator Physical Medicine and 12/02/16 Rehabilitation documented as of this encounter
--- OUTSIDE RECORDS SUMMARY | 2022-06-30 09:52 | XMS_ITS | Encounter Summary ---
:1990 Author Organization [place] Address [address] [place] [address]. [place] [address] Care Team Providers Name Role Phone Alfonso Tang Primary Care Provider Unavailable Dayanara Bee MD Unavailable Reason for Visit Reason Onset Date Comments Refill Request 01/15/2015 Encounter Details Date Type Department Care Team Description 01/15/2015 Refill [facility] Hernan Weiss, Refill Request Physicians [facility] [address] [facility] [address] Floor, Clinic [address] [place] [address] [facility] [address] [place] [address] [place] [phone] Social History Tobacco Use Types Packs/Day Years Used Date Smoking Tobacco: Never Smokeless Tobacco: Never Alcohol Use Standard Drinks/Week Comments No 0 (1 standard drink = 0.6 oz pure alcoho l) Sex Assigned at Date Recorded 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
--- OUTSIDE RECORDS SUMMARY | 2022-06-30 09:52 | XMS_ITS | Encounter Summary ---
:1990 Author Organization [place] Address [address] [place] [address]. [place] [address] Care Team Providers Name Role Phone Alfonso Tang Primary Care Provider Unavailable Dayanara Bee MD Unavailable Reason for Visit Reason Comments Abdominal Pain Diarrhea Nausea Encounter Details Date Type Department Care Team Description 03/21/2015 Office Visit [facility] Chanda Durand M D Diarrhea (Primary Dx); [place] [address] [facility] Fecal incontinence; [address] Autonomic [place] [address] [place], [place] [phone] (Wo rk) Social History Tobacco Use Types Packs/Day Years Used Date Smoking Tobacco: Never Smokeless Tobacco: Never Alcohol Use Standard Drinks/Week Comments No 0 (1 standard drink = 0.6 oz pure alcoho l) Sex Assigned at Date Recorded 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 It was a pleasure to meet you. I am currently building my patient panel and would be happy to see you back in clinic. I currently see patients on mornings and afternoons. Chanda Durand MD Internal Medicine-Pediatrics Resident For appointments: [phone] Doctor's Instructions: For your stools we will stop your linaclotide for the next couple of days and monitor your stools. If the stools continue it is okay to try imodium to try to slow the stools as long as you are not having fevers or bloody stools. We will check your stools for hookworm. If you develop any of the following please seek medical attention: fevers, bloody stools, back pain,increased incontinence, or worsening abdominal pain. If things are not improving in the next week, please contact your reducing machine operator for an appointment. documented in this encounter Progress Notes Chanda Durand MD - 03/21/2015 7:55 AM CDT SUBJECTIVE: Latricia Machado is a 25 year old female who presents to clinic today for the following health issues: Diarrhea, nausea and bloating ?? Duration: x 2-3 weeks ?? Description (location/character/radiation): cramping, mostly bilateral lower abdomen. Pain is consistent with her baseline dysautonomia pain. It has been unchanged throughout her increase in diarrhea. Associated flank pain: None ?? Intensity: Moderate, rated 3-6/10 which is her baseline. ?? Accompanying signs and symptoms: Fever/Chills: no Gas/Bloating: YES. She does have bloating at her baseline, but over the last 2- 3 weeks her symptomshave been more constant. Nausea/vomitting: YES. She does have chronic nausea at her baseline, but over the last couple of weeks her nausea has been much worse. It wakes her from sleep at night and she spends 1-2 hours sittingnear the toilet with the urge to vomit, although she has not vomited. She has tried her zofran without relief. She is also prescribed reglan for nausea associated with migraines but she has not tried this for her symptoms. Diarrhea: YES. Latricia has had daily diarrhea over the last couple of weeks. It has slowly been worsening over this timeframe. The diarrhea is not bloody, nor is it black or tarry. She is having up to 6stools daily and was incontinent of stool x1 yesterday because of the urgency she is having. She denies any back pain, no lower extremity numbness or weakness, no saddle anesthesia. She is on linaclotide for her chronic constipation and has occasionally held this medication in the last couple weeks, though overall continues to use it. Dysuria or Hematuria: no Vaginal symptoms: none. No vaginal bleeding. She is on [place] and has an appointment with her bridge game director next week to discuss different options for her control which perhaps have less impact on her migraines. ?? History (previous similar pain/trauma/previous testing): hx of chronic abdominal pain secondary to her history of dysautonomia, but this is much different. At her baseline with the dysautonomia she has chronic abdominal pain (which has not changed), nausea (which is increased with this episode), bloating (which is increased with this episode) and constipation (which she has the opposite as above). ?? Precipitating or alleviating factors: Pain worse with eating/BM/urination: No Pain relieved by BM: no ?? Therapies tried and outcome: Pepto Bismol without relief. Zofran without relief. ?? LMP: 03/01/15 Of note, the patient is worried about possible hookworm infection as the source of her symptoms. Gideon was diagnosed with this 2 weeks ago and was treated. The dog has not had confirmed clearing of infection with repeat stool sample. Problem list and histories reviewed & adjusted, as indicated. Additional history: as documented Patient Active Problem List Diagnosis ??? Chronic migraine without aura, with intractable migraine, so stated, without mention of status migrainosus ??? Autonomic nervous system disorder ??? Abdominal pain, generalized ??? Syncope Past Surgical History Procedure Laterality Date ??? C exploratory of abdomen ??? Colonoscopy with co2 insufflation N/A 12/13/2014 Procedure: COLONOSCOPY WITH CO2 INSUFFLATION; Surgeon: Adelso Dawson MD; Location: [facility] OR History Substance Use Topics ??? Smoking status: Never Smoker ??? Smokeless tobacco: Never Used ??? Alcohol Use: No Family History Problem Relation Age of Onset ??? Colon Polyps grandfather ??? Crohn Disease No family hx of ??? Ulcerative Colitis No family hx of ??? Cancer - colorectal Father ??? Cancer breast ROS: General: no fevers, chills, weight loss Ears/Nose/Throat: no sinus congestion, sore throat, rhirorrhea, or ear pain Skin: No rashes or lesions. Respiratory: no shortness or breath or cough Cardiovascular: no chest pain, lower extremity swelling, palpitations. Gastrointestinal: see above Genitourinary: no frequency, urgency or dysuria MSK: no arthralgias or myalgias. No back pain. Neuro: migraines, at baseline. No lower extremity weakness/numbness/tingling. Psych: no mood changes Endocrine: dysautonomia at baseline, on fludrocortisone OBJECTIVE: BP 110/80 mmHg Pulse 74 Temp(Src) 98.2 ??F (36.8 ??C) (Oral) Wt 194 lb (87.998 kg) SpO2 99% LMP 03/01/2015 ? No Body mass index is 31.33 kg/(m^2). Exam: General: the patient is pleasant, resting comfortably, no acute distress. HEENT: Normocephalic, atraumatic. No oral lesions. Lungs: Clear to auscultation, no wheezes or crackles. CV: RRR, nl s1 and s2, no m/r/g. Abdomen: Soft, nondistended, nontender. No rebound or guarding. Bowel sounds active. Extremities: No lower extremity edema. Peripheral pulses strong and symmetric. Skin: no appreciable skin lesions/rashes on exposed skin. Neuro: Alert and oriented x4, grossly normal neurologic exam. Diagnostic Test Results: Stool O&P pending ASSESSMENT/PLAN: 1. Diarrhea Etiology of patient's increased diarrhea is unclear. She lacks any concerning red flag signs or symptoms such as fever, melena, bloody stools, or significant abdominal pain. Patient appears well hydrated today on exam. Most likely this represents an acute flare of her dysautonomia, though she has not had similar symptoms in the past. Patient most concerned about possible hookworm infection, transmitted by her dog. Though this is unlikely, I think it is reasonable to test for this. Does not appear lupe a more concerning bacterial infection. Colonoscopy 12/2014 showed a single tubular adenoma withoutevidence of dysplasia or malignancy. Other possibilities to consider are - Ova and Parasite Exam Routine; Future - Ova and Parasite Exam Routine - Hold linaclotide until stools begin to firm - Can consider the addition of loperamide if stools continue to be loose. Though she will start with stopping the linaclotide first and add this in a few days if not improved. We did discuss the contraindication of this drug in the setting of fevers or bloody stools. - May benefit from probiotics - If not improved in the next week would have her return to clinic and/or contact her reducing machine operator. - Discussed concerning red flag s/s to seek medical attention for 2. Fecal incontinence Most likely secondary to urgency. Has only happened once. No back pain, saddle anesthesia or lower extremity symptoms to suggest neurological etiology. No associated urinary incontinence. - Continue to monitor for recurrence. If continues would consider further investigation. 3. Autonomic nervous system disorder Has been stable. Currently followed by Dr. Dawson of GI and Dr. Madsen of cardiology Follow up: return to clinic if not improving over the next several days or sooner if develops fevers, bloody stools or more incontinence. Chanda Durand MD Med-Peds Resident PGY-2 [facility] Attestation: I have reviewed the documentation from Dr. Durand and discussed the findings with Dr. Durand. I agree with the documentation of Dr. Durand. Ama Merino MD Internal Medicine/Pediatrics [facility] documented in this encounter Nursing Notes Arina Posey LPN - 03/21/2015 9:37 AM CDT Chief Complaint Patient presents with ??? Abdominal Pain ??? Diarrhea ??? Nausea Initial BP 110/80 mmHg Pulse 74 Temp(Src) 98.2 ??F (36.8 ??C) (Oral) Wt 194 lb (87.998 kg) SpO2 99% LMP 03/01/2015 ? No Estimated body mass index is 31.33 kg/(m^2) as calculated from the following: Height as of 01/07/15: 5' 6 (1.676 m). Weight as of this encounter: 194 lb (87.998 kg). BP completed using cuff size: regular documented in this encounter Plan of Treatment Upcoming Encounters Date Type Specialty Care Team Description 08/19/2022 Office Visit Gastroenterology Mirza Vasquez MD [address] [place] [phone] (Wo rk) documented as of this encounter Procedures Procedure Name Priority Date/Time Associated Diagnosis Comme nts OVA AND PARASITE Routine 03/21/2015 3:03 PM Diarrhea Resul ts for this EXAM ROUTINE CDT procedure are i n the results section. documented in this encounter Results Ova and Parasite Exam Routine (03/21/2015 3:03 PM CDT) Component Value Ref Test Analysis Performed At [facility] Range Method Time Signature Specimen Feces [facility] Ova and Routine parasitology exam negative [facility] Parasite Exam Cryptosporidium, Cyclospora, and Microsporidia are not readily detected by this [facility] method. A single negative specimen does not rule out para sitic infection. [facility] Micro Report FINAL 03/22/[address] [facility] Specimen Anatomical Collection Method Collection Time Receive d Time (Source) Location / / Volume Laterality Stool specimen 03/21/2015 3:03 PM 015 3:04 (specimen) CDT PM CDT Ama Merino MD LAB - MICRO GENERAL ORDERABL ES Performing Organization Address City/State/ZIP Code Phon e Number [address] [address] [facility] [address] [place] [address] documented in this encounter Visit Diagnoses Diagnosis Diarrhea - Primary Fecal incontinence Full incontinence of feces Autonomic nervous system disorder Unspecified disorder of autonomic nervou s system documented in this encounter Care Teams Door Maker Relationship Specialty Start Date End Date Alfonso Tang PCP - General Family Practice 09/04/13 08/12/21 Dayanara Bee MD MD Pediatrics 12/26/[address] [place] [phone] documented as of this encounter
--- OUTSIDE RECORDS SUMMARY | 2022-06-30 09:52 | XMS_ITS | Encounter Summary ---
:1990 Author Organization [facility] Address [address] [place] [address] Care Team Providers Name Role Phone Alfonso Tang Primary Care Provider Unavailable Dayanara Bee MD Unavailable Reason for Visit Reason Comments Consult Follow up Encounter Details Date Type Department Care Team Description 10/16/2015 Office Visit Medicine GI - 1E Abby Vasquez Irritable bowel syndrome wit h diarrhea (Primary Dx); Ayan Landers MD Adenomatous colon polyp Building [address] [place] [address] 1st Floor, Clinic [address] [phone] (Work) [phone] Social History Tobacco Use Types Packs/Day Years Used Date Smoking Tobacco: Never Smokeless Tobacco: Never Alcohol Use Standard Drinks/Week Comments No 0 (1 standard drink = 0.6 oz pure alcoho l) Sex Assigned at Date Recorded Female 10/31/2021 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 documented as of this encounter Last Filed Vital Signs Vital Sign Reading Time Taken Comments Blood Pressure 115/84 10/16/2015 12:17 PM MERCHANDISING PROFESSOR Pulse 88 10/16/2015 12:17 PM MERCHANDISING PROFESSOR Temperature - - Respiratory Rate - - Oxygen Saturation 96% 10/16/2015 12:17 PM MERCHANDISING PROFESSOR Inhaled Oxygen Concentration - - Weight 100.7 kg (222 lb) 10/16/2015 12:17 PM MERCHANDISING PROFESSOR Height 165.1 cm (5' 5) 10/16/2015 12:17 PM MERCHANDISING PROFESSOR Body Mass Index 36.94 10/16/2015 12:17 PM MERCHANDISING PROFESSOR documented in this encounter Patient Instructions Patient InstructionsAbby Vasquez MD - 10/16/2015 12:48 PM MERCHANDISING PROFESSOR 1. Continue Linzess 2. Continue ondansetron (Zofran) on as needed basis 3. Monitor for signs of acid reflux as we discussed. 4. Follow-up in GI clinic in 6 months' time. 5. Surveillance colonoscopy 2-3 years from your last one (in December 2014). For questions regarding your care Wednesday through Wednesday, contact the RN GI attending ambulatory care, Call Ama Bustamante at [phone] and leave a voicemail. Your call will be returned same day, or if consultation is needed with the provider, it may be following day - or you may send a My Chart message. For medication refills (prescribed by the GI clinic), contact your pharmacy. For appointment rescheduling/cancellation, contact Ekta at [phone] After hours, or if you have an immediate GI concern and cannot wait for a return call, contact the GI Fellow at [phone] and select option #4. HANDISING PROFESSOR documented in this encounter Progress Notes Abby Vasquez MD - 10/16/2015 12:25 PM CST GI CLINIC VISIT CC: follow-up IBS-D ASSESSMENT/PLAN: (K58.0) Irritable bowel syndrome with diarrhea (primary encounter diagnosis) Comment: Improved from prior baseline with Linzess. Occasional symptoms of diarrhea with cramping, manageable at this time. Pt happy with frequency of stooling. No further issues with anal fissures, no straining. Plan: - will refill linaclotide (LINZESS) 290 MCG capsule - follow-up in GI clinic in 6 months (D12.6) Adenomatous colon polyp Comment: Pt underwent early screening due to family history of colon cancer and polyps. One TA found and removed. Has been evaluated by genetics counselor (encounter 01/01/15), not felt to be at risk for Verduzco syndrome based on current data. Plan: - surveillance colonoscopy in 2-3 years, then Q 3yrs for at least two colonoscopies RTC 6 months It was a pleasure to participate in the care of this patient; please contact us with any further questions. A total of 25 minutes was spent with this patient, >50% of which was counseling regarding the above delineated issues. Abby Vasquez MD Migrant Leaderpupil personnel services director Division of Gastroenterology, Hepatology and Nutrition [facility] HPI: Ms. Machado is a 25 year old female with dysautonomia, frequent migraine HAs, chronic diffuse abdominal pain, nausea, and prior adenomatous polyp who returns to GI clinic for follow-up of her IBS-D.She was previously followed by Dr. Dawson of GI. She had significant constipation in the past going > 1 week without a bowel movement. Associatedsymptoms included abdominal pain as well as rectal discomfort and painful, bleeding anal fissures. She has been maintained on (full-dose) Linzess for > 1 year with good effect. She is currently stooling several times a week. About every two weeks she will have a day where she produces three looser/more liquid stools with cramping. Once a week she reports going a day or two with no stools. She has never gone more than 3 days without a BM. There are other times when she is a bit more regular and stools more formed. She has not had further issues with passing hard stool or straining. She is tolerating Linzess without other noted side effects. Of note, Ms. Machado also has had issues with chronic nausea (felt to be multifactorial in origin). She was previously on metoclopramide, but more [...] one dose of ondansetron. Interestingly she reports nighttime episodes where she will awaken feeling very hot and clammy and note nausea. She will take all her covers off, take an ondansetron and is able to fall asleep again. This occurs about once a week. She denies any other autonomic symptoms during this time. She denies any reflux- related symptoms and did trial an OTC antacid at night to see if this prevented the episodes; it did not. ROS: Fevers/chills: none Headache: none Vision changes: none Chest pain/pressure: none Dyspnea: none Skin changes/rashes: none Lymphadenopathy: none Myalgias/Arthralgias: none Anxiety/depression: none PROBLEM LIST Patient Active Problem List Diagnosis Date Noted ??? Syncope 01/25/2014 Priority: Medium ??? Intractable 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 aura 10/05/2013 Problem list name updated by automated process. Provider to review ??? Autonomic nervous system disorder 10/05/2013 ??? Abdominal pain, generalized 10/05/2013 PERTINENT MEDICATIONS: Current Outpatient Prescriptions Medication ??? citalopram (CELEXA) 10 MG/5ML solution ??? zonisamide (ZONEGRAN) 50 MG capsule ??? linaclotide (LINZESS) 290 MCG capsule ??? order for DME ??? fludrocortisone (FLORINEF) 0.1 MG tablet ??? ondansetron (ZOFRAN-ODT) 4 MG disintegrating tablet ??? Desvenlafaxine Succinate (PRISTIQ) 100 MG TB24 24 hr tablet ??? meclizine (ANTIVERT) 25 MG tablet ??? Multiple Vitamins-Minerals (WOMENS MULTIVITAMIN PLUS PO) No current facility-administered medications for this visit. PHYSICAL EXAMINATION: Vitals BP 115/84 mmHg Pulse 88 Ht 1.651 m (5' 5) Wt 100.699 kg (222 lb) BMI 36.94 kg/m2 SpO2 96% Wt Wt Readings from Last 2 Encounters: 10/16/15 100.699 kg (222 lb) 03/21/15 87.998 kg (194 lb) Gen: Pt sitting up on exam table in NAD, interactive and cooperative on exam Eyes: sclerae anicteric, no injection ENT: OP clear, MMM Cardiac: RRR, nl S1, S2, radial pulses +2 b/l, no peripheral edema Resp: Clear on anterior exam GI: Normoactive BS, abd soft, obese, nontender Skin: Warm, dry, no jaundice, nails [...] Micro Report Status 03/21/2015 FINAL 03/22/2015 Final HANDISING PROFESSOR documented in this encounter Plan of Treatment Upcoming Encounters Date Type Specialty Care Team Description 08/19/2022 Office Visit Gastroenterology Mirza Vasquez MD [address] [place] [address] [phone] (Wo rk) documented as of this encounter Visit Diagnoses Diagnosis Irritable bowel syndrome with diarrhea - Primary Irritable bowel syndrome Adenomatous colon polyp Benign neoplasm of colon documented in this encounter Care Teams Sourcing Assistant Relationship Specialty Start Date End Date Alfonso Tang PCP - General Family Practice 09/04/13 08/12/21 Dayanara Bee MD MD Pediatrics 12/26/[address] [place] [address] 75 [place], [place] [phone] documented as of this encounter
--- OUTSIDE RECORDS SUMMARY | 2022-06-30 09:52 | XMS_ITS | Encounter Summary ---
:1990 Author Organization [facility] Address [address] [place] [address] Care Team Providers Name Role Phone Alfonso Tang Primary Care Provider Unavailable Dayanara Bee MD Unavailable Min Lange MD Unavailable Unavailable Marlo Madsen MD Unavailable Mel Buckley RN Unavailable Reason for Visit Reason Comments Appointment Encounter Details Date Type Department Care Team Description 03/20/2015 [facility] Alfonso Tang RETIRED Appointment [facility] Provider, Historical [address] [phone] Social History Tobacco Use Types Packs/Day Years Used Date Smoking Tobacco: Never Smokeless Tobacco: Never Alcohol Use Standard Drinks/Week Comments No 0 (1 standard drink = 0.6 oz pure alcoho l) Sex Assigned at Date Recorded Female 10/31/2021 7:59 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 documented as of this encounter Plan of Treatment Upcoming Encounters Date Type Specialty Care Team Description 08/19/2022 Office Visit Gastroenterology Mirza Vasquez MD [address] [place], [place] [phone] (Wo rk) documented as of this encounter Visit Diagnoses Not on filedocumented in this encounter Care Teams Oil Heaterman Relationship Specialty Start Date End Date Alfonso Tang PCP - General Family Practice 09/04/13 08/12/21 Dayanara Bee MD MD Pediatrics 12/26/14 [address] [facility] [address] [place] [address] Min Lange MD MD Neurology 03/30/16 Marlo Madsen MD Cardiology 10/27/16 [place] [address] [facility] [address] [place] [address] Mel Buckley, DIAZ Nurse Coordinator Physical Medicine and 12/02/16 Rehabilitation documented as of this encounter
--- OUTSIDE RECORDS SUMMARY | 2022-06-30 09:52 | XMS_ITS | Encounter Summary ---
:1991 Author Organization [facility] Address [address] [place] [address] Care Team Providers Name Role Phone Alfonso Tang Primary Care Provider Unavailable Dayanara Bee MD Unavailable Reason for Visit Reason Onset Date Comments Refill Request 09/12/2015 Encounter Details Date Type Department Care Team Description 09/12/2015 Refill Medicine GI - 1E Adelso Dawson MD Refill Request [facility] [address] [place] [address] 1st Floor, Clinic [address] [place] [address] [phone] Social History Tobacco Use Types Packs/Day Years Used Date Smoking Tobacco: Never Smokeless Tobacco: Never Alcohol Use Standard Drinks/Week Comments No 0 (1 standard drink = 0.6 oz pure alcoho l) Sex Assigned at Date Recorded Female 10/31/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 DIESEL MOTOR MECHANIC documented in this encounter Plan of Treatment Upcoming Encounters Date Type Specialty Care Team Description 08/19/2022 Office Visit Gastroenterology Mirza Vasquez MD [address] [place], [place] [phone] (Wo rk) documented as of this encounter Visit Diagnoses Diagnosis Irritable bowel syndrome with diarrhea - Primary Irritable bowel syndrome documented in this encounter Care Teams Intravenous Therapy Nurse Relationship Specialty Start Date End Date Alfonso Tang PCP - General Family Practice 09/04/13 08/12/21 Dayanara Bee MD MD Pediatrics 12/26/[address] [place] [address] 75 [place], [place] [phone] documented as of this encounter
--- OUTSIDE RECORDS SUMMARY | 2022-06-30 09:52 | XMS_ITS | Encounter Summary ---
:1991 Author Organization [facility] Address [address] [place] [address] Care Team Providers Name Role Phone Alfonso Tang Primary Care Provider Unavailable Dayanara Bee MD Unavailable Min Lange MD Unavailable Unavailable Marlo Madsen MD Unavailable Mel Buckley RN Unavailable Encounter Details Date Type Department Care Team Description 03/11/2015 Records - [facility] CONVERSION Provider, Zo campbell Social History Tobacco Use Types Packs/Day Years Used Date Smoking Tobacco: Never Smokeless Tobacco: Never Alcohol Use Standard Drinks/Week Comments No 0 (1 standard drink = 0.6 oz pure alcoho l) Sex Assigned at Date Recorded Female 10/31/2021 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 documented as of this encounter Plan of Treatment Upcoming Encounters Date Type Specialty Care Team Description 08/19/2022 Office Visit Gastroenterology Mirza Vasquez MD [address] [place] [address] (Wo rk) documented as of this encounter Visit Diagnoses Not on filedocumented in this encounter Care Teams Instructor Private Relationship Specialty Start Date End Date Alfonso Tang PCP - General Family Practice 09/04/13 08/12/21 Dayanara Bee MD MD Pediatrics 12/26/[address] [place] [address] 75 [place] [address] Min Lange MD MD Neurology 03/30/16 Marlo Madsen MD Cardiology 10/27/[address] [place] [address] Mel Buckley, DIAZ Nurse Coordinator Physical Medicine and 12/02/16 Rehabilitation documented as of this encounter
--- OUTSIDE RECORDS SUMMARY | 2022-06-30 09:52 | XMS_ITS | Encounter Summary ---
:1990 Author Organization [facility] Address [address] [place] [address] Care Team Providers Name Role Phone Alfonos Tang Primary Care Provider Unavailable Dayanara Bee MD Unavailable Reason for Visit Reason Onset Date Comments Lab Result Notice 01/24/2015 Encounter Details Date Type Department Care Team Description 01/24/2015 Telephone Medicine Specialty C Abby Romo, Lab Result Notice 3rd Floor, Clinic 3A DIAZ Rosas [address] [phone] Social History Tobacco Use Types Packs/Day Years Used Date Smoking Tobacco: Never Smokeless Tobacco: Never Alcohol Use Standard Drinks/Week Comments No 0 (1 standard drink = 0.6 oz pure alcoho l) Sex Assigned at Date Recorded Female 10/31/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 Bee. Discussed that Dr. Bee was pleased with the findings, biochemical profile was normal, and no labs were suggestive of a mitochondrial disorder. Latricia verbalized understanding and had no additional questions about this. Encouraged to call with questions but no additional follow up was indicated/needed. documented in this encounter Plan of Treatment Upcoming Encounters Date Type Specialty Care Team Description 08/19/2022 Office Visit Gastroenterology Mirza Vasquez MD [address] [place] [phone] (Wo rk) documented as of this encounter Visit Diagnoses Not on filedocumented in this encounter Care Teams Coach Professional Athletes Relationship Specialty Start Date End Date Alfonso Tang PCP - General Family Practice 09/04/13 08/12/21 Dayanara Bee MD MD Pediatrics 12/26/14 [address] [facility] [address] [place], [place] [phone] documented as of this encounter
--- OUTSIDE RECORDS SUMMARY | 2022-06-30 09:52 | XMS_ITS | Encounter Summary ---
:1991 Author Organization [facility] Address [address] [place] [address] Care Team Providers Name Role Phone Alfonso Tang Primary Care Provider Unavailable Dayanara Bee MD Unavailable Min Lange MD Unavailable Unavailable Marlo Madsen MD Unavailable Mel Buckley RN Unavailable Reason for Visit Reason Comments Medication Refill Encounter Details Date Type Department Care Team Description 12/27/2015 [facility] Marlo Mejia Medic ation Refill [facility] Treasure Suárez MD [address] [place] [phone] [place], [place] [phone] [facility] Social History Tobacco Use Types Packs/Day Years Used Date Smoking Tobacco: Never Smokeless Tobacco: Never Alcohol Use Standard Drinks/Week Comments No 0 (1 standard drink = 0.6 oz pure alcoho l) Sex Assigned at Date Recorded Female 10/31/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 documented as of this encounter Plan of Treatment Upcoming Encounters Date Type Specialty Care Team Description 08/19/2022 Office Visit Gastroenterology Mirza Vasquez MD [address] [place] [address] (Wo rk) documented as of this encounter Visit Diagnoses Not on filedocumented in this encounter Care Teams Red Mud Thickener Operator Relationship Specialty Start Date End Date Alfonso Tang PCP - General Family Practice 09/04/13 08/12/21 Dayanara Bee MD MD Pediatrics 12/26/[address] [place] [address] 75 [place] [address] Min Lange MD MD Neurology 03/30/16 Marlo Madsen MD Cardiology 10/27/[address] [place] [address] Mel Buckley, RN Nurse Coordinator Physical Medicine and 12/02/16 Rehabilitation documented as of this encounter
--- OUTSIDE RECORDS SUMMARY | 2022-06-30 09:52 | XMS_ITS | Encounter Summary ---
:1991 Author Organization [facility] Address [address] [place] [address] Care Team Providers Name Role Phone Alfonso Tang Primary Care Provider Unavailable Dayanara Bee MD Unavailable Reason for Visit Reason Onset Date Comments Refill Request 07/30/2015 Encounter Details Date Type Department Care Team Description 07/30/2015 Refill Medicine GI - 1E Adelso Dawson MD Refill Request [facility] [address] [place] [address] 1st Floor, Clinic [address] [place] [address] [phone] Social History Tobacco Use Types Packs/Day Years Used Date Smoking Tobacco: Never Smokeless Tobacco: Never Alcohol Use Standard Drinks/Week Comments No 0 (1 standard drink = 0.6 oz pure alcoho l) Sex Assigned at Date Recorded Female 10/31/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 documented as of this encounter Plan of Treatment Upcoming Encounters Date Type Specialty Care Team Description 08/19/2022 Office Visit Gastroenterology Mirza Vasquez MD [address] [place] [address] (Wo rk) documented as of this encounter Visit Diagnoses Diagnosis Irritable bowel syndrome with diarrhea - Primary Irritable bowel syndrome documented in this encounter Care Teams Patient Services Clerk Relationship Specialty Start Date End Date Alfonso Tang PCP - General Family Practice 09/04/13 08/12/21 Dayanara Bee MD MD Pediatrics 12/26/[address] [place] [address] 75 [place] [address] documented as of this encounter
--- OUTSIDE RECORDS SUMMARY | 2022-06-30 09:52 | XMS_ITS | Encounter Summary ---
:1991 Author Organization [facility] Address [address] [place] [address]. [place] [address] Care Team Providers Name Role Phone Alfonso Tang Primary Care Provider Unavailable Dayanara Bee MD Unavailable Reason for Visit Reason Comments Clinic Care Coordination - Follow-up Encounter Details Date Type Department Care Team Description 04/03/2015 Care Coordination [facility] MD Terrance Coordination - Heart [address] Follow-up Ayan Rosas [facility] [address] [place], [place] 4th Floor, Clinic 4B [address] [facility] [phone] [address] [facility] (Work) [address] [phone] [place], [place] (Fax) [phone] Social History Tobacco Use Types Packs/Day Years Used Date Smoking Tobacco: Never Smokeless Tobacco: Never Alcohol Use Standard Drinks/Week Comments No 0 (1 standard drink = 0.6 oz pure alcoho l) Sex Assigned at Date Recorded Female 10/31/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 Discussed with Dr Madsen, will mail script to pt documented in this encounter Plan of Treatment Upcoming Encounters Date Type Specialty Care Team Description 08/19/2022 Office Visit Gastroenterology Mirza Vasquez MD [address] [place], [place] [phone] (Wo rk) documented as of this encounter Visit Diagnoses Diagnosis Dysautonomia (H) - Primary Unspecified disorder of autonomic nervou s system Heat intolerance Unspecified effects of heat and light documented in this encounter Care Teams Crinkling Machine Operator Relationship Specialty Start Date End Date Alfonso Tang PCP - General Family Practice 09/04/13 08/12/21 Dayanara Bee MD MD Pediatrics 12/26/[address] [place] [id number] documented as of this encounter
--- OUTSIDE RECORDS SUMMARY | 2022-06-30 09:52 | XMS_ITS | Encounter Summary ---
:1990 Author Organization [facility] Address [address] [place] [id number] Care Team Providers Name Role Phone Alfonso Tang Primary Care Provider Unavailable Dayanara Bee MD Unavailable Reason for Visit Reason Comments Migraine Encounter Details Date Type Department Care Team Description 02/26/2015 Hospital Encounter [facility], Nolan otyulissa [facility] [address] [place], [place] [id number] Cephalgia DEPARTMENT Provider, [address] [phone] Social History Tobacco Use Types Packs/Day Years Used Date Smoking Tobacco: Never Smokeless Tobacco: Never Alcohol Use Standard Drinks/Week Comments No 0 (1 standard drink = 0.6 oz pure alcoho l) Sex Assigned at Date Recorded 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 encounter Last Filed Vital Signs Vital Sign Reading Time Taken Comments Blood Pressure - - Pulse - - Temperature - - Respiratory Rate - - Oxygen Saturation - - Inhaled Oxygen Concentration - - Weight 83.9 kg (185 lb) 02/26/2015 9:11 AM CDT Height 167.6 cm (5' 6) 02/26/2015 9:11 AM CDT Body Mass Index 29.86 02/26/2015 9:11 AM CDT documented in this encounter Medications at Time of Discharge Medication Sig Dispensed Refills Start Date End Date acetaminophen-isomethepte Take 1 capsule by 10 capsule 1 04/201510/16/2015 ne-dichloralphenazone mouth every 4 hours (MIDRIN) 325-65-100 MG as needed for capsuleIndications: headaches Chronic migraine without aura, with intractable migraine, so stated, without mention of status migrainosus desvenlafaxine succinate Take 100 mg by 0 014 10/31/2021 (PRISTIQ) 100 MG TB24 24 mouth every morning hr tablet Desvenlafaxine Succinate Take 1 tablet by 0 [...] 1 capsule (290 30 capsule 2 0 01/09/2015 04/17/2015 MCG capsuleIndications: mcg) by mouth every Constipation, Abdominal morning (before pain breakfast) meclizine (ANTIVERT) 25 Take 1 tablet by 0 04/15/2016 MG tablet mouth 3 times daily as needed metoclopramide (REGLAN) One tablet as 8 tablet 0 5 10/16/2015 10 MG tabletIndications: needed for nausea Chronic migraine without related to migraine aura, with intractable migraine, so stated, without mention of status migrainosus Multiple Take 1 tablet by 0 10/31/19 22 Vitamins-Minerals (WOMENS mouth every morning MULTIVITAMIN PLUS PO) ondansetron (ZOFRAN-ODT) Take 1 tablet by 0 04/15/2016 4 MG disintegrating mouth as needed tablet zonisamide (ZONEGRAN) 50 Three capsules a 90 capsule 6 01/1810/08/2015 MG capsuleIndications: day Chronic migraine without aura, with intractable migraine, so stated, without mention of status migrainosus documented as of this encounter ED Notes Oumar Bradley - 02/26/2015 9:53 AM CDT eMERGENCY dEPARTMENT eNCOUnter CHIEF COMPLAINT Chief Complaint Patient presents with ??? Migraine HPI Latricia Machado is a 25 y.o. female who presents to the ED for evaluation of a migraine. Today at 4am, the patient states she woke up for work and had a sudden onset of a constant throbbing right sided headache with associated 6 episodes of vomiting. She denies any recent medicine changes or head trauma. She rates her pain as 10/10 in severity. The patient states this headache feels similar to migraines she has had in the past and it can be alleviated in the ED with dilaudid. She denies any chest pain, diarrhea, bloody or tarry stools, vision changes, or any other related symptoms or complaints. She took oxycodone this morning that did not alleviate her pain. She does not report any exacerbating factors. This document serves as a record of services performed by Dr. Oumar Bradley. It was created on his/her behalf by Florencia Pierre, trained medical i d sales. The creation of this record is based on the scribes personal observations and the providers statements to him/her. This document has been checked and approved by the attending provider. RELEVANT HISTORY Past Medical History Diagnosis Date ??? Polycystic ovaries Polycystic ovarian cysts ??? Autonomic dysfunction ??? Anxiety ??? Postconcussion syndrome No past surgical history on file. CURRENT MEDICATIONS Current Outpatient Rx Name Route Sig Dispense Refill ??? amoxicillin (AMOXIL) 875 MG tablet Oral Take 875 mg by mouth 2 (two) times a day. For 10 days. ??? fludrocortisone (FLORINEF) 0.1 mg tablet Oral Take 0.1 mg by mouth once daily. ??? GIANVI, 28, 3-0.02 mg per tablet Oral Take 3 tablets by mouth once daily. ??? HYDROcodone-acetaminophen 5-325 mg per tablet Oral Take 1 tablet by mouth every 4 (four) hours as needed for pain. 10 tablet 0 ??? LINZESS 290 mcg cap capsule Oral Take 290 mcg by mouth once. ??? meclizine (ANTIVERT) 25 mg tablet Oral Take 25 mg by mouth as needed. ??? mometasone (ELOCON) 0.1 % cream Apply to affected area daily 15 g 1 ??? MULTIVITAMIN ORAL Oral Take 1 tablet by mouth daily. TABS. ??? ondansetron (ZOFRAN-ODT) 4 MG disintegrating tablet Oral Take 1 tablet (4 mg total) by mouth every 8 (eight) hours as needed for nausea. 20 tablet 5 ??? oxyCODONE-acetaminophen (PERCOCET) 5-325 mg per tablet Oral Take 1 tablet by mouth every 4 (four) hours as needed for pain. [id number] 20 tablet 0 ??? predniSONE (DELTASONE) 10 MG tablet ??? PRISTIQ 100 mg 24 hr tablet Oral Take 100 mg by mouth once daily. ??? ZOLMitriptan (ZOMIG) 5 MG tablet TAKE 1 TABLET AT ONSET OF MIGRAINE. MAY REPEAT ONCE AFTER 2 HOURS. MAX 10 MG/DAY. ??? zonisamide (ZONEGRAN) 25 MG capsule Oral Take 150 mg by mouth daily. ALLERGIES No Known Allergies SOCIAL HISTORY She reports that she has never smoked. She has never used smokeless tobacco. She reports that she drinks alcohol. She reports that she does not use illicit drugs. FAMILY HISTORY No family history on file. REVIEW OF SYSTEMS Constitutional: Denies fever or chills. Eyes: Denies diplopia. HENT: Denies sore throat or ear pain. Respiratory: Denies cough or shortness of breath. Cardiovascular: Denies chest pain. GI: Denies abdominal pain, or black or red bloody stools. Positive for nausea and vomiting. Musculoskeletal: Denies any new muscle/joint pain or new back pain. Skin: Denies rash. Neurologic: Positive for headache. Endocrine: Denies polyuria. Other pertinent review of systems findings per HPI PHYSICAL EXAM VITALS SIGNS: BP 84/50 Pulse 93 Temp(Src) 98.3 ??F (36.8 ??C) Resp 18 Ht 5' 6 (1.676 m) Wt 185 lb (83.915 kg) BMI 29.87 kg/m2 SpO2 96% Constitutional: Awake. Alert. Cooperative. HENT: Normocephalic. Atraumatic. Mucous membranes are moist. Neck is supple. Eyes: Scleral non-icteric. EOMI. Respiratory: No respiratory distress. Breath sounds are clear and symmetric. Cardiovascular: Regular rate and rhythm. S1 plus S2. GI: The abdomen is soft and non-tender. Positive bowel sounds. : No CVA tenderness to percussion. Musculoskeletal: No clubbing or cyanosis. No edema. Integument: Warm. Dry. No rash. Neurologic: Alert. Cranial nerves II-XII intact. Equal hand grasp. Strength 5/5 upper and lower extremities. Sensation intact to light touch throughout. Psychiatric: Affect and mood are normal. Cooperative. ED COURSE Patient is feeling better with use of IV Dilaudid and Reglan. Nausea resolved. Still has some headache and will be given one more dose of IV Dilaudid prior to dismissal. MEDICAL DECISION MAKING Patient presents with her typical migraine headache. No recent fever or head trauma. Intact neurologically and do not feel acute imaging is required. Improvement with use of parenteral narcotics. We'llplan on discharge home with patient to rest and use previously prescribed meds as directed. Follow-up with her neurologist in next 2-3 weeks. FINAL IMPRESSION 1. Cephalgia Oumar Wilkinson I, Dr. Oumar Bradley, personally performed the services described in this documentation , as scribed by Florencia Pierre in my presence, and it is both accurate and complete. New Prescriptions No medications on file Oumar Bradley MD 02/26/15 1217 documented in this encounter Plan of Treatment Upcoming Encounters Date Type Specialty Care Team Description 08/19/2022 Office Visit Gastroenterology Mirza Vasquez MD [address] [place] [id number] (Wo rk) documented as of this encounter Visit Diagnoses Diagnosis Cephalgia Headache documented in this encounter Care Teams Scientific Programmer Analyst Relationship Specialty Start Date End Date Alfonso Tang PCP - General Family Practice 09/04/13 08/12/21 Dayanara Bee MD MD Pediatrics 12/26/14 [address] [facility] [address] [place], [place] [phone] documented as of this encounter
--- OUTSIDE RECORDS SUMMARY | 2022-06-30 09:52 | XMS_ITS | Encounter Summary ---
:1990 Author Organization [facility] Address [address] [place] [address] Care Team Providers Name Role Phone Alfonso Tang Primary Care Provider Unavailable Dayanara Bee MD Unavailable Reason for Visit Reason Onset Date Comments Refill Request 01/09/2015 Encounter Details Date Type Department Care Team Description 01/09/2015 Refill Medicine GI - 1E Ama Bustamante, RN Refill Request [facility] 1st Floor, Clinic [address] [place], [place] [phone] Social History Tobacco Use Types Packs/Day Years Used Date Smoking Tobacco: Never Smokeless Tobacco: Never Alcohol Use Standard Drinks/Week Comments No 0 (1 standard drink = 0.6 oz pure alcoho l) Sex Assigned at Date Recorded 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 Plan of Treatment Upcoming Encounters Date Type Specialty Care Team Description 08/19/2022 Office Visit Gastroenterology Mirza Vasquez MD [address] [place], [place] [phone] (Wo rk) documented as of this encounter Visit Diagnoses Diagnosis Constipation - Primary Unspecified constipation Abdominal pain Abdominal pain, unspecified site documented in this encounter Care Teams Facilities Custodian Relationship Specialty Start Date End Date Alfonso Tang PCP - General Family Practice 09/04/13 08/12/21 Dayanara Bee MD MD Pediatrics 12/26/[address] [place] [address] [address] [place], [place] [phone] documented as of this encounter
--- OUTSIDE RECORDS SUMMARY | 2022-06-30 09:52 | XMS_ITS | Encounter Summary ---
:1990 Author Organization [facility] Address [address] [place] [address] Care Team Providers Name Role Phone Alfonso Tang Primary Care Provider Unavailable Dayanara Bee MD Unavailable Min Lange MD Unavailable Unavailable Marlo Madsen MD Unavailable Mel Buckley RN Unavailable Encounter Details Date Type Department Care Team Description 10/16/2015 Records - [facility] CONVERSION Provider, Zo campbell Social History Tobacco Use Types Packs/Day Years Used Date Smoking Tobacco: Never Smokeless Tobacco: Never Alcohol Use Standard Drinks/Week Comments No 0 (1 standard drink = 0.6 oz pure alcoho l) Sex Assigned at Date Recorded 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 Plan of Treatment Upcoming Encounters Date Type Specialty Care Team Description 08/19/2022 Office Visit Gastroenterology Mirza Vasquez MD [address] [place] [address] (Wo rk) documented as of this encounter Visit Diagnoses Not on filedocumented in this encounter Care Teams Hot Iron Worker Relationship Specialty Start Date End Date Alfonso Tang PCP - General Family Practice 09/04/13 08/12/21 Dayanara Bee MD MD Pediatrics 12/26/[address] [place] [address] [address] [place] [address] Min Lange MD MD Neurology 03/30/16 Marlo Madsen MD Cardiology 10/27/[address] [place] [address] Mel Buckley, DIAZ Nurse Coordinator Physical Medicine and 12/02/16 Rehabilitation documented as of this encounter
--- OUTSIDE RECORDS SUMMARY | 2022-06-30 09:52 | XMS_ITS | Encounter Summary ---
:1990 Author Organization [facility] Address [address] [place] [address] Care Team Providers Name Role Phone Alfonso Tang Primary Care Provider Unavailable Dayanara Bee MD Unavailable Reason for Visit Reason Onset Date Comments Refill Request 04/17/2015 Encounter Details Date Type Department Care Team Description 04/17/2015 Refill Medicine GI - 1E Adelso Dawson MD Refill Request [facility] [address] [place] [address] 1st Floor, Clinic [address] [place] [address] [phone] Social History Tobacco Use Types Packs/Day Years Used Date Smoking Tobacco: Never Smokeless Tobacco: Never Alcohol Use Standard Drinks/Week Comments No 0 (1 standard drink = 0.6 oz pure alcoho l) Sex Assigned at Date Recorded 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
--- OUTSIDE RECORDS SUMMARY | 2022-06-30 09:53 | XMS_ITS | Encounter Summary ---
:1990 Author Organization [facility] Address [address] [place] [address] Care Team Providers Name Role Phone Alfonso Tang Primary Care Provider Unavailable Dayanara Bee MD Unavailable Min Lange MD Unavailable Unavailable Marlo Madsen MD Unavailable Mel Buckley RN Unavailable Reason for Visit Reason Comments Medication Refill Encounter Details Date Type Department Care Team Description 10/11/2014 [facility]uling [facility] [place] [phone] Social History Tobacco Use Types Packs/Day Years Used Date Smoking Tobacco: Never Smokeless Tobacco: Never Alcohol Use Standard Drinks/Week Comments No 0 (1 standard drink = 0.6 oz pure alcoho l) Sex Assigned at Date Recorded 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 of 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 encounter Plan of Treatment Upcoming Encounters Date Type Specialty Care Team Description 08/19/2022 Office Visit Gastroenterology Mirza Vasquez MD [address] [place] [address] (Wo rk) documented as of this encounter Visit Diagnoses Diagnosis Nausea Nausea alone documented in this encounter Care Teams General Studies Program Chair Relationship Specialty Start Date End Date Alfonso Tang PCP - General Family Practice 09/04/13 08/12/21 Dayanara Bee MD MD Pediatrics 12/26/14 [address] [facility] [address] [place] [address] Min Lange MD MD Neurology 03/30/16 Marlo Madsen MD Cardiology 10/27/16 [place] [address] [facility] [address] [place] [address] Mel Buckley, RN Nurse Coordinator Physical Medicine and 12/02/16 Rehabilitation documented as of this encounter
--- OUTSIDE RECORDS SUMMARY | 2022-06-30 09:53 | XMS_ITS | Encounter Summary ---
:1990 Author Organization [facility] Address [address] [place] [address]. [place] [address] Care Team Providers Name Role Phone Alfonso Tang Primary Care Provider Unavailable Reason for Visit Auth/Cert - Closed Specialty Diagnoses / Procedures Referred By Contact Refer red To Contact Surgery Diagnoses Family History of Colon Cancer Uu Periop Procedures COLONOSCOPY WITH CO2 INSUFFLATION [address] [place] [address] Phone: Fax: Referral ID Status Reason Start Date Expiration Date Visits Requ ested Visits Authorized [id number] Closed 1 1 Encounter Details Date Type Department Care Team Description 12/13/2014 Hospital Encounter M [facility] Gary Ochoa MD Same Day Surgery [facility] [address] [place], [place] 500 [facility] [address] [place] [address] Social History Tobacco Use Types Packs/Day Years Used Date Smoking Tobacco: Never Smokeless Tobacco: Never Alcohol Use Standard Drinks/Week Comments No 0 (1 standard drink = 0.6 oz pure alcoho l) Sex Assigned at Date Recorded 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 documented as of this encounter Last Filed Vital Signs Vital Sign Reading Time Taken Comments Blood Pressure 112/79 12/13/2014 9:15 AM CDT Pulse 74 12/13/2014 9:15 AM CDT Temperature 36.4 ??C (97.5 ??F) 12/13/2014 9:00 AM CDT Respiratory Rate 18 12/13/2014 9:15 AM CDT Oxygen Saturation 97% 12/13/2014 9:15 AM CDT Inhaled Oxygen Concentration - - Weight 83.2 kg (183 lb 6.8 oz) 12/13/2014 5:43 AM CDT Height 167.6 cm (5' 5.98) 12/13/2014 5:43 AM CDT Body Mass Index 29.62 12/13/2014 5:43 AM CDT documented in this encounter Discharge Instructions Discharge InstructionsBeatriz Contreras RN - 12/13/2014 8:49 AM CDT [facility], [facility] Same-Day [facility] Adult Discharge Orders & Instructions For 24 hours after surgery 1. Get plenty of rest. A responsible adult must stay with you for at least 24 hours after you leave the hospital. 2. Do not drive or use heavy equipment. If you have weakness or tingling, don't drive or use heavy equipment until this feeling goes away. 3. Do not drink alcohol. 4. Avoid strenuous or risky activities. Ask for help when climbing stairs. 5. You may feel lightheaded. IF so, sit for a few minutes before standing. Have someone help you getup. 6. If you have nausea (feel sick to your stomach): Drink only clear liquids such as apple juice, shun larry, broth or 7-Up. Rest may also help. Be sure to drink enough fluids. Move to a regular diet asyou feel able. 7. You may have a slight fever. Call the doctor if your fever is over 100??F (37.7??C) (taken under the tongue) or lasts longer than 24 hours. 8. You may have a dry mouth, a sore throat, muscle aches or trouble sleeping. These should go away after 24 hours. 9. Do not make important or legal decisions. Call your doctor for any of the followin. Signs of infection (fever, growing tenderness at the surgery site, a large amount of drainage or bleeding, severe pain, foul-smelling drainage, redness, swelling). 2. It has been over 8 to 10 hours since surgery and you are still not able to urinate (pass water). 3. Headache for over 24 hours. 4. Numbness, tingling or weakness the day after surgery (if you had spinal anesthesia). To contact a doctor, call or: ??? [phone] and ask for the resident pay station attendant for (answered 24 hours a day) ??? Emergency Department: [facility]: [phone] (TTY for hearing impaired: [phone]) documented in this encounter Medications at Time of Discharge Medication Sig Dispensed Refills Start Date End Date desvenlafaxine succinate Take 100 mg by 0 014 10/31/2021 (PRISTIQ) 100 MG TB24 24 mouth every hr tablet morning Desvenlafaxine Succinate Take 1 tablet by 0 04/15/2016 (PRISTIQ) 100 MG TB24 24 mouth daily hr tablet Drospirenone-Ethinyl Take 1 tablet by 0 10/16/2015 Estradiol (LIOR PO) mouth daily fludrocortisone (FLORINEF) Take 1 tablet 90 tablet 3 201301/08/2015 0.1 MG tabletIndications: (0.1 mg) by mouth Autonomic dysfunction daily linaclotide (LINZESS) 290 Take 1 capsule 30 capsule 2 201401/09/2015 MCG capsuleIndications: (290 mcg) by Constipation, Abdominal mouth every pain morning (before breakfast) meclizine (ANTIVERT) 25 MG Take 1 tablet by 0 04/15/2016 tablet mouth 3 times daily as needed Multiple Vitamins-Minerals Take 1 tablet by 0 10/31/2021 (WOMENS MULTIVITAMIN PLUS mouth every PO) morning ondansetron (ZOFRAN-ODT) 4 Take 1 tablet by 0 04/15/2016 MG disintegrating tablet mouth as needed zonisamide (ZONEGRAN) 25 2 in AM and 3 at 150 capsule 3 01/201501/18/2015 MG capsuleIndications: night Chronic migraine without aura, with intractable migraine, so stated, without mention of status migrainosus documented as of this encounter Nursing Notes Beatriz Contreras, RN - 12/13/2014 9:07 AM CDT Pt awake without complaints drinking water. documented in this encounter Plan of Treatment Upcoming Encounters Date Type Specialty Care Team Description 08/19/2022 Office Visit Gastroenterology Mirza Vasquez MD [address] [place] [address] (Wo rk) documented as of this encounter Procedures Procedure Name Priority Date/Time Associated Comments Diagnosis SURGICAL PATHOLOGY Routine 12/13/2014 7:51 AM Res ults for this EXAM CDT procedure are i n the results section. COLONOSCOPY Routine 12/13/2014 7:32 AM Results f or this CDT procedure are i n the results section. COLONOSCOPY, WITH CO2 12/13/2014 7:28 AM Family Histor y of INSUFFLATION CDT Colon Cancer HCG QUALITATIVE URINE STAT 12/13/2014 5:52 AM Results for this CDT procedure are i n the results section. documented in this encounter Results Surgical pathology exam (12/13/2014 7:51 AM CDT) Component Value Ref Test Analysis Performed At [facility] Range Method Time Signature Copath Report Patient Name: DARIN MACHADO MR#: [id number] Specimen #: [id number] Collected: 12/13/2014 Received: 12/13/2014 Reported: 12/14/2014 10:37 Ordering Phy(s): GARY OCHOA SPECIMEN(S): Colon polyp, transverse FINAL DIAGNOSIS: Large intestine, transverse colon, polypectomy - Tubular adenoma - No evidence of high-grade dysplasia or invasive malignancy I have personally reviewed all specimens and or slides, incl uding the listed special stains, and used them with my medical judgeme nt to determine the final diagnosis. Electronically signed out by: Rob William M.D., Physicians CLINICAL HISTORY: Family history of colon cancer GROSS: The specimen is received in formalin with proper patient alesia ntification, labeled transverse colon polyp and consists of two whittaker-pin k tissue fragments measuring 0.1 and 0.4 cm in greatest dimensions. ? ?The specimen is entirely submitted in cassette 1. (Dictated by: Beck hoffman 12/13/2014 09:15 AM) MICROSCOPIC: A formal microscopic examination was performed. CPT Codes: A: 57093-KO0 TESTING LAB LOCATION: [facility], [address] ?? [address] COLLECTION SITE: Client: [facility] Location: UUOR (B) Specimen Anatomical Collection Method Collection Time Receive d Time (Source) Location / / Volume Laterality 12/13/2014 7:51 AM 5 8:40 CDT AM CDT Gary SAUCEDO - MALACHI Performing Organization Address City/State/ZIP Code Phon e Number [facility] COLONOSCOPY (12/13/2014 7:32 AM CDT) Component Value Ref Test Analysis Performed At [facility] Range Method Time Signature COLONOSCOPY [facility] RADIOLOGY [address] [place], [place] [address] [phone] ? End oscopy Department RESULTS Patient Name: Darin Machado ? Procedure Date: 12/13/2014 7:32 AM ? Accou nt Number: [id number] Date of : 1990 ?Admit Type: Out patient Age: 24 ?Gende r: Female Note Status: Finalized ?Attending MD: Gary Ochoa MD Procedure: ? Colonoscopy Indications: ? FH of Colon Cancer - 1st degree rel ative Providers: ? Gary Ochoa MD, Tiffany prasad, RN Referring MD: ? Medicines: ? Monitored Anesthesia Care Complications: ? No immediate complications. Procedure: ? Pre-Anesthesia Assessment: ? - Prior to the procedure, a History and Physical was ? performed, and patient medications, allergies and ? sensitivities were reviewed. The patient's tolerance of ? previous anesthesia was revie wed. ? - The risks and benefits of the procedure and the ? sedation options and risks were discussed with the ? patient. All questions were answered and informed ? consent was obtained. ? - Patient identification and proposed procedure were ? verified prior to the procedure by the physician and the ? nurse. The procedure was verified in the procedure room ? at 07:45 AM. ? - Pre-procedure physical examination revealed no ? contraindications to sedation . ? - ASA Grade Assessment: I - A normal, healthy patient. ? - After reviewing the risks and benefits, the patient ? was deemed in satisfactory condition to undergo the ? procedure. ? - Immediately prior to administration of medications, ? the patient was re-assessed for adequacy to receive ? sedatives. ? - Sedation was administered by an endoscopy nurse. The ? sedation level attained was m oderate. ? - The heart rate, respiratory rate, oxygen saturations, ? blood pressure, adequacy of pulmonary ventilation, and ? response to care were monitored throughout the procedure. ? - The physical status of the patient was re-assessed ? after the procedure. ? - Monitored anesthesia care under the supervision of an ? anesthesi ologist was determined to be medically ? necessary for this procedure based on patient's history ? of problems with anesthesia. ? After obtaining informed consent, the colonoscope was ? passed under direct vision. Throughout the procedure, ? the patie nt's blood pressure, pulse, and oxygen ? saturations were monitored continuously. The Colonoscope ? was introduced through the anus and advanced to the ? terminal ileum. The colonoscopy was performed with ? moderate difficulty due to significant looping. The ? patient tolerated the procedure fairly well. The quality ? of the bowel preparation was good. ? Findings: ? The perianal and digital rectal examinations were nor mal. ? A flat polyp was found in the transverse colon. The polyp was 6 mm in ? size. The polyp was removed with a jumbo cold force ps. Resection and ? retrieval were complete. ? Impression: ?- One 6 mm polyp in the transverse colon. Resected and ? retrieved. Recommendation: ?- Await pathology results. ? Electronically signed by Gary Ochoa MD Gary Ochoa MD 12/13/2014 8:35 AM Number of Addenda: 0 Note Initiated On: 12/13/2014 7:32 AM Specimen (Source) Anatomical Collection Method Collection Time Re ceived Time Location / / Volume Laterality 12/13/2014 7:32 AM CDT Gary Ochoa MD PROCEDURES Performing Organization Address City/State/ZIP Code Phon e Number RADIOLOGY RESULTS HCG qualitative urine (12/13/2014 5:52 AM CDT) [facility] Signature HCG Qual Urine Negative [facility]G [facility] Specimen Anatomical Collection Method Collection Time Receive d Time (Source) Location / / Volume Laterality Urine specimen URINE SPECIMEN 12/13/2014 5:52 AM 12/13 5:55 (specimen) OBTAINED BY CLEAN CDT AM CDT CATCH PROCEDURE / Unknown Billy Moyer MD LAB - URINE ORDERABLES Performing Organization Address City/State/ZIP Code Phon e Number [facility] [address] [place] [address] [facility] documented in this encounter Visit Diagnoses Not on filedocumented in this encounter Active and Recently Administered Medications Times are shown in CDT. Continuous Medication Order 12/11/2014 12/12/2014 12/13/2014 lactated ringers infusion (CANCELED) 0724 (New Bag - Provider: Demond Zimmerman APRN STUDENT UNION CONSULTANT)0831 (Anesthesia Volume Adjustment - Provider: Demond Zimmerman APRN STUDENT UNION CONSULTANT) at 75-100 mL/hr, Intravenous, CONTINUOUS , UNLESS otherwise indicated., Pre- procedure, Starting Aleshia 12/13/14 at 0600, Until Aleshia 15 at 0835 PRN Medication Order 12/11/2014 12/12/2014 12/13/2014 simethicone 133mg/2mL oral suspension (CANCELED) 0835 (Given - Provider: Gary Ochoa MD) PRN, Starting Aleshia 15 at 0835, Intra-procedure documented in this encounter Care Teams Cistern Room Working Supervisor Relationship Specialty Start Date End Date Alfonso Tang PCP - General Family Practice 09/04/13 08/12/21 documented as of this encounter
--- OUTSIDE RECORDS SUMMARY | 2022-06-30 09:53 | XMS_ITS | Encounter Summary ---
:1990 Author Organization [facility] Address [address] [place] [address] Care Team Providers Name Role Phone Alfonso Tang Primary Care Provider Unavailable Dayanara Bee MD Unavailable Reason for Visit Reason Onset Date Comments Clinic Care Coordination - Follow-up 01/02/2015 Encounter Details Date Type Department Care Team Description 01/02/2015 Telephone Medicine GI - 1E Ama Bustamante RN Clinic Care Coordination [facility] [phone] [facility] (Work) 1st Floor, Clinic [address] [place] [address] Social History Tobacco Use Types Packs/Day Years Used Date Smoking Tobacco: Never Smokeless Tobacco: Never Alcohol Use Standard Drinks/Week Comments No 0 (1 standard drink = 0.6 oz pure alcoho l) Sex Assigned at Date Recorded 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 Dawson request. Left message to check on whether she had received her results and to recommend that she have a repeat colonoscopy in 2 to 3 years. Asked patient to call back to confirm that she has received the message. documented in this encounter Plan of Treatment Upcoming Encounters Date Type Specialty Care Team Description 08/19/2022 Office Visit Gastroenterology Mirza Vasquez MD [address] [place] [phone] (Wo rk) documented as of this encounter Visit Diagnoses Not on filedocumented in this encounter Care Teams Abrasive Band Winder Relationship Specialty Start Date End Date Alfonso Tang PCP - General Family Practice 09/04/13 08/12/21 Dayanara Bee MD MD Pediatrics 12/26/[address] [place] [phone] documented as of this encounter
--- OUTSIDE RECORDS SUMMARY | 2022-06-30 09:53 | XMS_ITS | Encounter Summary ---
:1990 Author Organization [facility] Address [address] [place] [id number] Care Team Providers Name Role Phone Alfonso Tang Primary Care Provider Unavailable Dayanara Bee MD Unavailable Min Lange MD Unavailable Unavailable Marlo Madsen MD Unavailable Mel Buckley RN Unavailable Reason for Visit Reason Comments Pre-Op Exam DOS 12/13/14, Colonoscopy, [facility], Dr Adelso Dawson Encounter Details Date Type Department Care Team Description 12/06/2014 Office Visit - [facility] Alfonso Tang RETIRED Preop examination; [facility] Provider, Historical Family history of colon cancer; 1981 [facility] Nausea; [address] [place] [address] Social History Tobacco Use Types Packs/Day Years Used Date Smoking Tobacco: Never Smokeless Tobacco: Never Alcohol Use Standard Drinks/Week Comments No 0 (1 standard drink = 0.6 oz pure alcoho l) Sex Assigned at Date Recorded 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 Acyanotic syndrome History of abdominal pain with constipation History of migraine headache History of polycystic ovary syndrome Patient approved for surgery with general or local anesthesia. Labs will be done as indicated. Copy of the pre-op was given to the patient to bring along on the day of surgery. Follow up as needed. Proceed with proposed surgery without additional clinical clarifications. No Cardiology consultation or non-invasive testing. Low Risk Surgery. No active cardiac conditions. Urine test was negative today. Subjective: Scheduled Procedure: Colonoscopy Surgery Date: 12/13/14 Surgery Location: [facility] Surgeon: Dr. Adelso Dawson Current Outpatient Prescriptions Medication Sig Dispense Refill ??? fludrocortisone (FLORINEF) 0.1 mg tablet Take 0.1 mg by mouth once daily. ??? GIANVI, 28, 3-0.02 mg per tablet Take 3 tablets by mouth once daily. ??? LINZESS 290 mcg cap capsule Take 290 mcg by mouth once. ??? meclizine (ANTIVERT) 25 mg tablet Take 25 mg by mouth as needed. ??? MULTIVITAMIN ORAL Take 1 tablet by mouth daily. TABS. ??? PRISTIQ 100 mg 24 hr tablet Take 100 mg by mouth once daily. ??? zonisamide (ZONEGRAN) 25 MG capsule Take 150 mg by mouth daily. ??? amoxicillin (AMOXIL) 875 MG tablet Take 875 mg by mouth 2 (two) times a day. For 10 days. ??? HYDROcodone-acetaminophen 5-325 mg per tablet Take 1 tablet by mouth every 4 (four) hours as needed for pain. 10 tablet 0 ??? ondansetron (ZOFRAN-ODT) 4 MG disintegrating tablet Take 1 tablet (4 mg total) by mouth every 8 (eight) hours as needed for nausea. 20 tablet 5 ??? oxyCODONE-acetaminophen (PERCOCET) 5-325 mg per tablet Take 1 tablet by mouth every 4 (four) hours as needed for pain. [id number] 20 tablet 0 ??? predniSONE (DELTASONE) 10 MG tablet ??? ZOLMitriptan (ZOMIG) 5 MG tablet TAKE 1 TABLET AT ONSET OF MIGRAINE. MAY REPEAT ONCE AFTER 2 HOURS. MAX 10 MG/DAY. No current facility-administered medications for this visit. No Known Allergies Immunization History Administered Date(s) Administered ??? DT (pediatric) 1990, 1990, 1990, 01/31/1993, 03/31/1996, 11/16/2003 ??? HPV Quadrivalent 06/09/2007, 09/19/2010, 02/02/2011 ??? Hep A, Adult 03/24/2013 ??? Hep A, historic 11/01/2006 ??? Hep B, Adult, Historic 11/16/2003, 12/18/2003, 05/15/2004 ??? Hib (PRP-OMP) 1990, 1990, 06/14/1992 ??? IPV 03/31/1996 ??? Influenza, inj, historic 05/23/2013 ??? Influenza, seasonal, inj 6-35 mos 06/27/2012 ??? MMR 06/14/1992, 03/31/1996 ??? OPV 1990, 1990, 1990 ??? Td, historic 11/16/2003 ??? Tdap 03/24/2013 ??? Varicella 08/03/1995, 03/24/2013 Patient Active Problem List Diagnosis ??? Polycystic Ovarian Syndrome ??? Postconcussion Syndrome ??? Common Migraine (Without Aura) ??? Leukopenia ??? Cough ??? Abnormal Hepatic Enzyme ??? Acute Cystitis ??? Migraine Headache ??? Fatigue ??? Acute Sinusitis ??? Hemorrhoids ??? Autonomic Nervous System Disorder ??? Chronic Common Migraine (Without Aura) With Intractable Migraine Past Medical History Diagnosis Date ??? Polycystic ovaries Polycystic ovarian cysts ??? Autonomic dysfunction ??? Anxiety ??? Postconcussion syndrome History Social History ??? Marital Status: Single Spouse Name: N/A Number of Children: N/A ??? Years of Education: N/A Occupational History ??? Not on file. Social History Main Topics ??? Smoking status: Never Smoker ??? Smokeless tobacco: Never Used ??? Alcohol Use: Yes Comment: glass of wine 1/month ??? Drug Use: No ??? Sexual Activity: Yes Partners: Male Other Topics Concern ??? Not on file Social History Narrative ??? No narrative on file No past surgical history on file. History of Present Illness Recent Health Fever: no Chills: no Fatigue: no Chest Pain: no Cough: no Dyspnea: no Urinary Frequency: no Nausea: no Vomiting: no Diarrhea: no Abdominal Pain: yes Easy Bruising: no Lower Extremity Swelling: no Pertinent History Prior Anesthesia: yes Previous Anesthesia Reaction: no Diabetes: no Cardiovascular Disease: no Pulmonary Disease: no Renal Disease: no GI Disease: Yes. History of autonomic disorder Sleep Apnea: no Thromboembolic Problems: no Clotting Disorder: no Bleeding Disorder: no Social history of there are no concerns regarding care after surgery After surgery, the patient plans to recover at home with family. Review of Systems Review of Systems Constitutional: Negative. Negative for fever. HENT: Negative. Negative for congestion. Eyes: Negative. Respiratory: Negative. Negative for cough and shortness of breath. Cardiovascular: Negative. Negative for chest pain. Gastrointestinal: Patient complains of intermittent nausea. She also will have some crampy abdominal pain. Endocrine: Negative. Genitourinary: Negative. Musculoskeletal: Negative. Skin: Complains of a rash behind her left ear. No exudate is noted. Allergic/Immunologic: Negative. Neurological: Negative. Hematological: Negative. Psychiatric/Behavioral: Negative. Objective: Filed Vitals: 12/06/14 1128 BP: 104/78 Pulse: 84 Temp: 98.2 ??F (36.8 ??C) TempSrc: Oral Resp: 16 Height: 5' 6 (1.676 m) Weight: 186 lb 1.3 oz (84.405 kg) Physical Exam: Physical Exam Constitutional: She is oriented to person, place, and time. She appears well- developed and well-nourished. No distress. HENT: Right Ear: External ear normal. Left Ear: External ear normal. Nose: Nose normal. Mouth/Throat: Oropharynx is clear and moist. Eyes: Conjunctivae and EOM are normal. Pupils are equal, round, and reactive to light. Neck: Normal range of motion. Neck supple. No JVD present. No thyromegaly present. Cardiovascular: Normal rate, regular rhythm and normal heart sounds. No murmur heard. Pulmonary/Chest: Effort normal and breath sounds normal. No respiratory distress. She has no wheezes. She has no rales. Abdominal: Soft. Bowel sounds are normal. She exhibits no distension and no mass. Musculoskeletal: Normal range of motion. She exhibits no edema. Lymphadenopathy: She has no cervical adenopathy. Neurological: She is alert and oriented to person, place, and time. She has normal reflexes. Skin: Skin is warm and dry. There is mild erythema just posterior to the left ear lobe. There is small area of desquamation noted. No exudate noted. Psychiatric: She has a normal mood and affect. documented in this encounter Plan of Treatment Upcoming Encounters Date Type Specialty Care Team Description 08/19/2022 Office Visit Gastroenterology Mirza Vasquez MD [address] [place] [phone] (Wo rk) documented as of this encounter Visit Diagnoses Diagnosis Preop examination Preoperative examination, unspecified Family history of colon cancer Family history of malignant neoplasm of gastrointestinal tract Nausea Nausea alone Migraine headache Migraine, unspecified, without mention o f intractable migraine without mention of status migrainosus documented in this encounter Care Teams Referral Specialist Relationship Specialty Start Date End Date Alfonso Tang PCP - General Family Practice 09/04/13 08/12/21 Dayanara Bee MD MD Pediatrics 12/26/[address] [place] [address] [address] [place], [place] [id number] Min Lange MD MD Neurology 03/30/16 Marlo Madsen MD Cardiology 10/27/[address] [place] [address] [address] [place], [place] [phone] Mel Buckley, DIAZ Nurse Coordinator Physical Medicine and 12/02/16 Rehabilitation documented as of this encounter
--- OUTSIDE RECORDS SUMMARY | 2022-06-30 09:53 | XMS_ITS | Encounter Summary ---
:1990 Author Organization [place] Address [address] [place] [address] Care Team Providers Name Role Phone Alfonso Tang Primary Care Provider Unavailable Dayanara Bee MD Unavailable Min Lange MD Unavailable Unavailable Marlo Madsen MD Unavailable Mel Buckley RN Unavailable Reason for Visit Reason Comments Medication Refill Encounter Details Date Type Department Care Team Description 10/15/2014 Communication - Alfonso Franks [facility]uling [facility] [place] [address] Social History Tobacco Use Types Packs/Day Years Used Date Smoking Tobacco: Never Smokeless Tobacco: Never Alcohol Use Standard Drinks/Week Comments No 0 (1 standard drink = 0.6 oz pure alcoho l) Sex Assigned at Date Recorded Female 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 documented as of this encounter Plan of Treatment Upcoming Encounters Date Type Specialty Care Team Description 08/19/2022 Office Visit Gastroenterology Mirza Vasquez MD [address] [place] [address] (Wo rk) documented as of this encounter Visit Diagnoses Not on filedocumented in this encounter Care Teams Multi Care Technician Relationship Specialty Start Date End Date Alfonso Tang PCP - General Family Practice 09/04/13 08/12/21 Dayanara Bee MD MD Pediatrics 12/26/14 [address] [facility] [address] [place] [address] Min Lange MD MD Neurology 03/30/16 Marlo Madsen MD Cardiology 10/27/16 [place] [address] [facility] [address] [place] [address] Mel Buckley, DIAZ Nurse Coordinator Physical Medicine and 12/02/16 Rehabilitation documented as of this encounter
--- OUTSIDE RECORDS SUMMARY | 2022-06-30 09:53 | XMS_ITS | Encounter Summary ---
:1990 Author Organization [facility] Address [address] [place] [address] Care Team Providers Name Role Phone Alfonso Tang Primary Care Provider Unavailable Dayanara Bee MD Unavailable Min Lange MD Unavailable Unavailable Marlo Madsen MD Unavailable Mel Buckley RN Unavailable Encounter Details Date Type Department Care Team Description 12/06/2014 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 documented as of this encounter Plan of Treatment Upcoming Encounters Date Type Specialty Care Team Description 08/19/2022 Office Visit Gastroenterology Mirza Vasquez MD [address] [place], [place] [address] (Wo rk) documented as of this encounter Visit Diagnoses Diagnosis Dermatitis Contact dermatitis and other eczema, due to unspecified cause documented in this encounter Care Teams Poultry Picking Machine Tender Relationship Specialty Start Date End Date Alfonso Tang PCP - General Family Practice 09/04/13 08/12/21 Dayanara Bee MD MD Pediatrics 12/26/14 [address] [facility] [address] [place] [address] Min Lange MD MD Neurology 03/30/16 Marlo Madsen MD Cardiology 10/27/16 [place] [address] [facility] [address] [place] [address] Mel Buckley, DIAZ Nurse Coordinator Physical Medicine and 12/02/16 Rehabilitation documented as of this encounter
--- OUTSIDE RECORDS SUMMARY | 2022-06-30 09:53 | XMS_ITS | Encounter Summary ---
:1990 Author Organization [place] Address [address] [place] [address]. [place] [address] Care Team Providers Name Role Phone Alfonso Tagn Primary Care Provider Unavailable Reason for Visit Auth/Cert - Closed Specialty Diagnoses / Procedures Referred By Contact Refer red To Contact Surgery Diagnoses Family History of Colon Cancer U[facility] Periop Procedures COLONOSCOPY WITH CO2 INSUFFLATION [address] [place] [address] Phone: Fax: Referral ID Status Reason Start Date Expiration Date Visits Requ ested Visits Authorized [id number] Closed 1 1 Encounter Details Date Type Department Care Team Description 12/13/2014 Surgery [facility] Mendez Ochoa MD Colonoscopy with [facility] [address] polypectomy [address] [place] [address] Surgery Details Date/Time Status Location OR Service Patient Case Case Traum a Class Class Type Case? 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 documented as of this encounter Last Filed Vital Signs Vital Sign Reading Time Taken Comments Blood Pressure 123/87 12/13/2014 5:43 AM CDT Pulse 88 12/13/2014 5:43 AM CDT Temperature 36.8 ??C (98.2 ??F) 12/13/2014 5:43 AM CDT Respiratory Rate 18 12/13/2014 5:43 AM CDT Oxygen Saturation 98% 12/13/2014 5:43 AM CDT Inhaled Oxygen Concentration - - Weight 83.2 kg (183 lb 6.8 oz) 12/13/2014 5:43 AM CDT Height 167.6 cm (5' 5.98) 12/13/2014 5:43 AM CDT Body Mass Index 29.62 12/13/2014 5:43 AM CDT documented in this encounter Discharge Instructions Discharge InstructionsWBeatriz otero RN - 12/13/2014 8:49 AM CDT [facility], [place] Same-Day Surgery Adult Discharge Orders & Instructions [...] To contact a doctor, call or: ??? [phone] and ask for the resident magnetic resonance technologist for (answered 24 hours a day) ??? Emergency Department: [facility]: [phone] (TTY for hearing impaired: [phone]) documented in this encounter Medications at Time [...] AM and 3 at 150 capsule 3 /01/201501/18/2015 MG capsuleIndications: night Chronic migraine without aura, with intractable migraine, so stated, without mention of status migrainosus documented as of this encounter Nursing Notes Beatriz Contreras, RN - 12/13/2014 9:07 AM CDT Pt awake without complaints drinking water. documented in this encounter Plan of Treatment Upcoming Encounters Date Type Specialty Care Team Description 08/19/2022 Office Visit Gastroenterology Mirza Vasquez MD [address] [place] [address] (Wo rk) documented as of this encounter [...] Component Value Ref Test Analysis Performed At [facility] Method Time Signature Copath Report Patient Name: DARIN MACHADO MR#: [id number] Specimen #: [id number] Collected: 12/13/2014 Received: 12/13/2014 Reported: 12/14/2014 10:37 [...] microscopic examination was performed. CPT Codes: A: 00254-TX0 TESTING LAB LOCATION: [facility], [address] ?? [address] COLLECTION SITE: Client: [facility] Location: UOR (B) Specimen Anatomical Collection Method Collection Time Receive d Time (Source) Location / / Volume Laterality 12/13/2014 7:51 AM 5 8:40 CDT AM CDT Gary SAUCEDO - MALACHI Performing Organization Address City/State/ZIP Code Phon e Number [facility] COLONOSCOPY (12/13/2014 7:32 AM CDT) Component Value Ref Test Analysis Performed At [facility] Method Time Signature COLONOSCOPY [facility] RADIOLOGY [address] [place], [place] [id number] [phone] ? End oscopy Department RESULTS Patient Name: Darin Machado ? Procedure Date: 12/13/2014 7:32 AM ? Accou nt Number: [id number] Date of : 1990 ?Admit Type: Out [...] size. The polyp was removed with a e-[employer] cold force ps. Resection and ? retrieval [...] 5:52 AM CDT) Analysis Performed At Patho logist Time Signature HCG Qual Urine Negative NEG [facility] Specimen Anatomical Collection Method Collection Time Receive d Time (Source) Location / / Volume Laterality Urine specimen URINE SPECIMEN 12/13/2014 5:52 AM 12/13 5:55 (specimen) OBTAINED BY CLEAN CDT AM CDT CATCH PROCEDURE / Unknown Billy Moyer MD LAB - URINE ORDERABLES Performing Organization Address City/[facility]/ZIP Code Phon e Number [facility] [address] [place], [place] [id number] [place] [address] documented in this encounter Visit Diagnoses Not on filedocumented in this encounter Administered Medications Inactive Administered Medications - up to 3 most recent administrations Medication Order MAR Action Action Date Dose Rate Site simethicone 133mg/2mL oral Given 12/13/2014 8:35 AM CDT 4 mLs suspension PRN, Starting on Aleshia 12/13/14 at 0835, Intra-procedure documented in this encounter Active and Recently Administered Medications Times are shown in CDT. Continuous Medication Order 12/11/2014 12/12/2014 12/13/2014 lactated ringers infusion (CANCELED) 0724 (New Bag - Provider: Demond Zimmerman APRN EXPORT DOCUMENTS CLERK)0831 (Anesthesia Volume Adjustment - Provider: Demond Zimmerman APRN EXPORT DOCUMENTS CLERK) at 75-100 mL/hr, Intravenous, CONTINUOUS , UNLESS otherwise indicated., Pre- procedure, Starting Aleshia 15 at 0600, Until Aleshia 4//15 at 0835 PRN Medication Order 12/11/2014 12/12/2014 12/13/2014 simethicone 133mg/2mL oral suspension (CANCELED) 0835 (Given - Provider: Gary Ochoa MD) PRN, Starting Aleshia 15 at 0835, Intra-procedure documented in this encounter Care Teams Vocational Training Teacher Relationship Specialty Start Date End Date Alfonso Tang PCP - General Family Practice 09/04/13 08/12/21 documented as of this encounter
--- OUTSIDE RECORDS SUMMARY | 2022-06-30 09:53 | XMS_ITS | Encounter Summary ---
:1990 Author Organization [facility] Address [address] [place] [address] Care Team Providers Name Role Phone Alfonso Tang Primary Care Provider Unavailable Dayanara Bee MD Unavailable Encounter Details Date Type Department Care Team Description 01/07/2015 Office Visit Medicine Specialty Dayanara Bee MD [address] [place] [address] [facility] Bianca Lowe GC [address] [phone] system disorder 3rd Floor, Clinic 3A (Primary Dx) [place] [address] [address] Social History Tobacco Use Types Packs/Day Years Used Date Smoking Tobacco: Never Smokeless Tobacco: Never Alcohol Use Standard Drinks/Week Comments No 0 (1 standard drink = 0.6 oz pure alcoho l) Sex Assigned at Date Recorded Female 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 Bee due to concerns about a possible mitochondrial disorder. I met with Latricia per the request of Dr. Rohit horowitzw the family history, and to discuss possible recommended genetic testing. Medical History: Latricia is 24 years of age. She was diagnosed with dysautonomia at age 18, though her symptoms began around age 13. Latricia describes her symptoms as chronic abdominal pain, chronic nausea, frequent fainting and dizziness (had normal cardiac work-up), temperature regulation issues, and migraines. Latricia was seen in Cancer Clinic here at the [facility] in March due to a concerning family history of cancer. 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 Latricia had a recent colonoscopy which revealed an adenomatous polyp. Latricia reports that she was recommended to have a follow-upcolonoscopy in 2-3 years, with possible genetic testing for Verduzco Syndrome at that time ([facility] analysis of Latricia's father's tumor had suggested against Verduzco syndrome). Family History: A three generation pedigree was initially obtained by Felicitas Camara MS, CGC in Cancer Genetics on 04/09/2014. The family history was updated today and has been scanned into [employer]. The following is significant: ?? Latricia has a 28-year-old sister who also has dysautonomia, though she is outgrowing her symptoms. This sister had surgery at age 21 for pectus excavatum. This sister is currently with her first child, and the has been mostly uneventful except for the finding of a single umbilical artery. Latricia had a brother who at 7 weeks of age due to SIDS. ?? Latricia's mother is 56 years of age and she also has dysautonomia, though her symptoms are primarily dizziness and fainting spells. Latricia reports that her mother had a recent brain aneurysm. She also has a history of an ovarian tumor at age 34. ?? Latricia's father is 55 years of age, and he has had two bouts of colon cancer at ages 51 and 52. Corinne has diabetes. ?? Latricia's maternal family history is significant for an uncle who had a stroke at age 59, another uncle who has an abnormality of blood vessels in the brain (? AVM) and Parkinson disease, a cousin whoalso has an AVM and had a recent brain aneurysm, an aunt who was diagnosed with breast cancer at age42, and a cousin with early onset hearing loss. Latricia explained that she was recommended to have a baseline brain MRI due to her family history of AVM and brain aneurysm. ?? Latricia's paternal family history is significant for four aunts with a history of benign breast tumors, and grandmother with breast cancer at age 68. ?? Latricia describes her ethnicity as primarily [place] and [place]. There is no known consanguinity in the family. Discussion: Latricia explained that she belongs to a support group for dysautonomia, and that a few members of the group reportedly have symptoms of dysautonomia because they have an underlying mitochondrial disorder. Latricia wonders if this may be an explanation for her symptoms as well. I briefly reviewed a few details about mitochondrial disorders and inheritance. Mitochondrial disorders are disorders in which the body can not produce enough energy to perform all of its functions. The body systems most dependent on this energy include the brain, muscle, heart, kidneys and liver. Mitochondria are under the dual genetic control of both the mitochondrial and nuclear genomes. Primary mitochondrial disorders may exhibit maternal inheritance (i.e., mutations in mitochondrial DNA) or classical Mendelian inheritance (i.e., mutations in nuclear DNA). Mitochondrial mutations can occur in either the mitochondrial genes, or in the nuclear genes that affect mitochondrial function. Such mutations cause the mitochondria to become less efficient in generating energy for the cell, which in turncauses problems with growth, development, and normal function of organs and tissues with high energyrequirements. I explained that genetic testing is available for mitochondrial disorders and involves massively parallel sequencing of the mitochondrial genes and/or nuclear genes that affect mitochondrial function. I discussed possible results which could include 1) positive - a mutation is identified that is associated with a clinically defined mitochondrial disorder, 2) variant of unclear significance - a DNA variant is identified, but it is not known if the variant could cause symptoms of mitochondrial disease, or 3) negative - no disease-causing mutation is identified in any of the mitochondrial genes. Based on Latricia's history and today's exam, Dr. Bee does not feel that Latricia's symptoms are suggestive of a mitochondrial disorder. Therefore, mitochondrial DNA testing was not recommended today. Dr. Bee did order several metabolic labs today. If Latricia's lab results are suggestive of a mitochondrial disorder, which is not anticipated, then we can re-visit the option of genetic testing for further clarification. Plan/Summary: 1. Updated the family history today and scanned into the electronic medical record. 2. Evaluation by Dr. Bee today, and metabolic labs drawn. 3. Genetic testing for mitochondrial disorders was not recommended today due to low index of suspicion. This can be re-visited if Latricia's metabolic labs are suspicious for a mitochondrial disorder, which is not anticipated. 4. Continued follow-up with the Cancer Risk Management Program. 5. Latricia was encouraged to call with questions or concerns. 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
--- OUTSIDE RECORDS SUMMARY | 2022-06-30 09:53 | XMS_ITS | Encounter Summary ---
:1990 Author Organization [facility] Address [address] [place] [address]. [place] [address] Care Team Providers Name Role Phone Alfonso Tang Primary Care Provider Unavailable Dayanara Bee MD Unavailable Reason for Referral Consultation - Closed Specialty Diagnoses / Procedures Referred By Contact Refer red To Contact Diagnoses Autonomic nervous system disorder Chronic migraine without aura, with intractable migraine, so stated, without mention of status migrainosus Syncope Abdominal pain, generalized Dayanara Bee MD [address] [facility] [address] [place], [place] [address] Referral ID Status Reason Start Date Expiration Date Visits Requ ested Visits Authorized [id number] Closed 01/07/2015 07/06/2015 1 1 Reason for Visit Reason Comments Establish Care Patient is here to establish care Encounter Details Date Type Department Care Team Description 01/07/2015 Office Visit Medicine Specialty Dayanara Bee MD Autonomic nervous system disorder (Prima ry Dx); Clinic [address] Chronic migraine without aur a, with intractable migraine, so stated, without mention of status migrainosus; 3rd Floor, Clinic [address] [facility] [address] Syncope; Ayan Rosas [place], [place] Abdo belgica pain, generalized Building [address] [place] [address] [place], [place] (Work) [id number] [phone] Social History Tobacco Use Types Packs/Day Years Used Date Smoking Tobacco: Never Smokeless Tobacco: Never Tobacco Cessation: Counseling Given: No Alcohol Use Standard Drinks/Week Comments No 0 (1 standard drink = 0.6 oz pure alcoho l) Sex Assigned at Date Recorded Female 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 of 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 encounter Last Filed Vital Signs Vital Sign Reading Time Taken Comments Blood Pressure 113/83 01/07/2015 8:46 AM CDT Pulse 95 01/07/2015 8:46 AM CDT Temperature 36.8 ??C (98.3 ??F) 01/07/2015 8:46 AM CDT Respiratory Rate 18 01/07/2015 8:46 AM CDT Oxygen Saturation 97% 01/07/2015 8:46 AM CDT Inhaled Oxygen Concentration - - Weight 85.7 kg (189 lb) 01/07/2015 8:46 AM CDT Height 167.6 cm (5' 6) 01/07/2015 8:46 AM CDT Body Mass Index 30.51 01/07/2015 8:46 AM CDT documented in this encounter Patient Instructions Patient InstructionsDayanara Bee MD - 01/07/2015 9:31 AM CDT Metabolism Clinic Call if any general care questions arise - contact our nurse coordinator Abby Mae at [phone]. documented in this encounter Progress Notes Dayanara Bee MD - 01/07/2015 9:11 AM CDT Adult Metabolism Clinic Consultation Name: Latricia Machado : 1990 Date of Visit: Jan 07, 2015 Primary Provider: Alfonso Tang Referring Provider Samir Reason for consultation: A consultation in the Adult Metabolism Clinic was requested by Adelso Dawson for Ms. Latricia Machado, a 24 year old female for evaluation of concerns regarding whether her symptomatology was due to a mitochondrial disorder. She also saw our genetic counselor at this visit. Assessment: I was glad to find that despite her other complex medical issues, Latricia had no biochemical evidencesuggesting that a mitochondrial condition is present to complicate her issues. Lactate was normal, her organic acids were without features suggesting mitochondrial dysfunction, plasma carnitine was in the low normal range, and she had normal plasma amino acids.The plasma acylcarnitine profile was normal. Kidney and liver tests were normal as were blood counts. Taken together, although Latricia certainlyhas a complex and symptomatic medical picture, there is not evidence based on a biochemical phenotype that this is due to mitochondrial dysfunction. Latricia does have a complex chronic pain syndrome with both abdominal and headache symptoms. Plan: 1 Orders Placed This Encounter Procedures ??? Pyruvic acid ??? Amino acids plasma quantitative ??? Carnitine free and total ??? CK total ??? Acylcarnitines plasma quantitative ??? Lactic acid whole blood ??? CBC with platelets differential ??? Comprehensive metabolic panel ??? Organic acid comprehensive urine ??? Creatinine urine calculation only ??? GENETIC COUNSELING SERVICES Results are as noted, below. 2. Genetic counseling consultation with Bianca Lowe MS, [facility] at this visit to obtain a pedigree. 3. At the time of the visit, Latricia and I agreed that if her biochemical picture suggested against a mitochondrial disorder that she would anticipate seeking a unifying diagnosis in a different spectrumof conditions. 4. Return to the Adult Metabolism Clinic for follow-up if new features are right suggesting a need for further assessment. History of Present Illness: Patient Active Problem List Diagnosis ??? Chronic migraine without aura, with intractable migraine, so stated, without mention of status migrainosus ??? Autonomic nervous system disorder ??? Abdominal pain, generalized ??? Syncope Latricia became having complex symptomatology at about age 13 but was diagnosed at age 18 as having autonomic dysfunction. She suffers from chronic pain and dizziness. She has difficulties with temperature regulation. She has nausea and frequent migraines. At age 17, she underwent a three-week intensive pain management therapy regimen with occupational and physical therapy interventions to assist her in coping with chronic pain issues. Through the years,she has continued to apply these strategies to good effect. She continues to seek additional information and knowledge regarding her condition. She learned from a support group with which she participates that some individuals with mitochondrial disease will have symptoms that overlap hers, prompting her questions about whether she could have a mitochondrial condition. She reviewed this with the genetic counselor who provided counseling information when she reviewed her family history regarding colon cancer concerns. At that time, further metabolic assessment was recommended. Review of available medical records: In 2013, Latricia had a more detailed assessment for her chronic abdominal symptoms. Records from the [facility] indicated an extensive autonomic testing series was undertaken in 2010. This did not define a specific nature of her autonomic dysfunction. In general, the testing was normal. Pertinent prior lab results: Blood counts, CRP, and TSH were normal in October 2013 Pertinent prior imaging results: Head CT done June 2014 because of headaches; this was normal. Past Medical History: Past Medical History Diagnosis Date ??? Autonomic dysfunction ??? Migraines ??? PCOS (polycystic ovarian syndrome) ??? Anesthesia complication sensitivity Hospitalization History: For pain management, see above Surgical History: no specific surgical procedures Other health services currently received are genetic counseling and neurology . Review of Systems: Constitional: negative Eyes: Wears glasses to use the computer. Ears/Nose/Throat: Says that her hearing is like a 70-year-old Respiratory: Has bronchitis approximately once per year Cardiovascular: Has a history of syncope and dizziness Gastrointestinal: Has irritable bowel symptoms. Colonoscopy has been undertaken because of her family history of colon cancer. She has chronic low abdominal pain and has been treated for many years with a TENS unit with some relief. Genitourinary: Reports having had occasional urinary tract infections often on since about age 9 Hematologic/Lymphatic: negative Allergy/Immunologic: negative- no drug allergies Musculoskeletal: negative Endocrine: Indicates that she was prediabetic until weight loss was accomplished Integument: Indicates that she bruises very easily. Has eczema Neurologic: Has intractable migraines. These occur approximately once per month. She is monitored trell regular basis because of this. She has also been diagnosed as having dysautonomia. She has chronicpain. Psychiatric: Depression and anxiety The remainder of the comprehensive review of systems is complete and negative. Family History: A detailed pedigree was obtained at the time of this appointment and is available in the chart and was updated at this visit. Family history is significant for the occurrence of colorectal cancer in her father and a history of aneurysm on her mother's side.. Maternal ethnicity is [place] . Pat ernal ethnicity is [place] . Consanguinity denied. Remainder of history was non-contributory. Family History Problem Relation Age of Onset ??? Colon Polyps grandfather ??? Crohn's Disease No family hx of ??? Ulcerative Colitis No family hx of ??? Cancer - Colorectal Father ??? Cancer breast . 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 She is studying to accomplish a Masters degree in school student counseling. 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 She is currently living with her parents I have reviewed Latricia???s past medical history, family history, social history, medications and allergies as documented in the electronic medical record. There were no additional findings except as noted. Medications: Current Outpatient Prescriptions Medication Sig Dispense Refill ??? zonisamide (ZONEGRAN) 25 MG capsule 2 in AM and 3 at night 150 capsule 3 ??? linaclotide (LINZESS) 290 MCG capsule Take 1 capsule (290 mcg) by mouth every morning (before breakfast) 30 capsule 2 ??? fludrocortisone (FLORINEF) 0.1 MG tablet Take 1 tablet (0.1 mg) by mouth daily 90 tablet 3 ??? ondansetron (ZOFRAN-ODT) 4 MG disintegrating tablet Take 1 tablet by mouth as needed ??? Desvenlafaxine Succinate (PRISTIQ) 100 MG TB24 24 hr tablet Take 1 tablet by mouth daily ??? meclizine (ANTIVERT) 25 MG tablet Take 1 tablet by mouth 3 times daily as needed ??? Drospirenone-Ethinyl Estradiol (LIOR PO) Take 1 tablet by mouth daily ??? Multiple Vitamins-Minerals (WOMENS MULTIVITAMIN PLUS PO) Take 1 tablet by mouth daily Allergies: No Known Allergies Physical Examination: Blood pressure 113/83, pulse 95, temperature 98.3 ??F (36.8 ??C), temperature source Oral, resp. rate 18, height 1.676 m (5' 6), weight 85.73 kg (189 lb), last menstrual period 01/07/2015, SpO2 97 %, not currently . 85.73 kg Body surface area is 2.00 meters squared. General: This was a well-developed, well nourished female who responded appropriately to all requests during the examination. Head and Neck: Shehad hair of normal texture and distribution and her head was proportionate in appearance. Eyes: The pupils were equal, round, and reacted to light. The conjunctivae were clear. Ears: Her ears were normal in architecture and placement. Nose: The nose was clear. Mouth and Throat: The dentition was normal. The throat was without erythema. Respiratory: The chest was clear to auscultation and had a symmetric appearance. CV: On examination of the heart, the rhythm was regular and there was no murmur. GI: The abdomen was soft and had normal bowel sounds. There was no hepatosplenomegaly. : I deferred a examination. Musculoskeletal: There was a full range of motion on the extremity exam, and normal muscular volume and bulk. Neurologic: The neurologic exam was normal, with normal cranial nerves, normal deep tendon reflexes,normal sensation, and a normal gait. She had normal tone. Integument: The skin was normal with no rashes or unusual pigmentation.The nails were normal in architecture. Results of laboratory studies collected at this visit: Results for orders placed or performed in visit on 01/07/15 Pyruvic acid Result Value Ref Range Pyruvic 0.158 Amino acids plasma quantitative Result Value Ref Range Alanine 36 22 - 62 umol/dL Arginine 4 2 - 18 umol/dL Asparagine 5 1 - 5 umol/dL Aspartic Acid <1 0 - 4 umol/dL Citrulline 2 0 - 8 umol/dL Cystine 9 3 - 15 umol/dL Glutamic Acid 8 0 - 16 umol/dL Glutamine 60 41 - 86 umol/dL Glycine 17 13 - 50 umol/dL Histidine 8 3 - 15 umol/dL 1-Methylhistidine 1 0 - 2 umol/dL Hydroxyproline 1 0 - 3 umol/dL Isoleucine 7 4 - 11 umol/dL Leucine 13 8 - 21 umol/dL Lysine 14 6 - 26 umol/dL Methionine 2 1 - 6 umol/dL Ornithine 5 2 - 16 umol/dL Phenylalanine umol/dL 7 3 - 10 umol/dL Proline 16 0 - 48 umol/dL Serine 7 4 - 18 umol/dL Taurine 4 7 - 32 umol/dL Threonine 9 5 - 25 umol/dL Tyrosine 6 4 - 13 umol/dL Valine 24 8 - 46 umol/dL Carnitine free and total Result Value Ref Range Carnitine Free 24 CarnitineTotal 32 Carnitine Esterified 8 Carnitine Esterified/Free Ratio 0.3 CK total Result Value Ref Range CK Total 84 30 - 225 U/L Acylcarnitines plasma quantitative Result Value Ref Range Acylcarn Quant Plasma 00 SEE NOTE 01/09/2015 04:34 PM Unit: not reported (Note) Test Result Flag Unit RefValue Acylcarnitines, Quantitative, P Acetylcarnitine, 5.58 nmol/mL C2 -- REFERENCE VALUE -- 2.00-17.83 (> or = 8 years) Propionylcarnitine 0.60 nmol/mL , C3 -- REFERENCE VALUE -- < 0.88 (> or = 8 years) Iso- 0.27 nmol/mL /Butyrylcarnitine, C4 -- REFERENCE VALUE -- < 0.83 (> or = 8 years) Isovaleryl-/2- 0.16 nmol/mL Methylbutyrylcarn C5 -- REFERENCE VALUE -- < 0.51 (> or = 8 years) Hexanoylcarnitine, 0.03 nmol/mL C6 -- REFERENCE VALUE -- < 0.17 (> or = 8 years) 3-OH- 0.01 nmol/mL hexanoylcarnitine, C6-OH -- REFERENCE VALUE -- < 0.09 (> o r = 8 years) Octenoylcarnitine, 0.06 nmol/mL C8:1 -- REFERENCE VALUE -- < 0.88 (> or = 8 years) Octanoylcarnitine, 0.08 nmol/mL C8 -- REFERENCE VALUE -- < 0.78 (> or = 8 years) Decenoylcarnitine, 0.04 nmol/mL C10:1 -- REFERENCE VALUE -- < 0.47 (> or = 8 years) Decanoylcarnitine, 0.06 nmol/mL C10 -- REFERENCE VALUE -- < 0.88 (> or = 8 years) Glutarylcarnitine, 0.03 nmol/mL C5-DC -- REFERENCE VALUE -- < 0.11 (> or = 8 years) Dodecenoylcarnitin 0.03 nmol/mL e, C12:1 -- REFERENCE VALUE -- < 0.35 (> or = 8 years) Dodecanoylcarnitin 0.04 nmol/mL e, C12 -- REFERENCE VALUE -- < 0.26 (> or = 8 years) 3-OH- 0.01 nmol/mL dodecanoylcarnitine, C12-OH -- REFERENCE VALUE -- < 0.08 (> or = 8 years) Tetradecadienoylca Below detection limit. nmol/mL rnitine, C14:2 A quantitative value cannot be provided because the concentration of tetradecadienoylcarnitine is below the assay's limit of detection, <0.02 nmol/mL. -- REFERENCE VALUE -- < 0.18 (> or = 8 years) Tetradecenoylcarni 0.02 nmol/mL gris, C14:1 -- REFERENCE VALUE -- < 0.24 (> or = 8 years) Tetradecanoylcarni 0.02 nmol/mL gris, C14 -- REFERENCE VALUE -- < 0.12 (> or = 8 years) 3-OH- Below detection limit. nmol/mL tetradecenoylcarnitine C14:1OH A quantitative value cannot be provided because the concentration of 7-NF-qnwixfnfnegdawoidsajsg is below the assay's limit of detection, <0.01 nmol/mL. -- REFERENCE VALUE -- < 0.13 (> or = 8 years) 3-OH- 0.00 nmol/mL tetradecanoylcarnitine, C14-OH -- REFERENCE VALUE -- < 0.08 (> or = 8 years) Hexadecenoylcarnit 0.01 nmol/mL ine, C16:1 -- REFERENCE VALUE -- < 0.10 (> or = 8 years) Hexadecanoylcarnit 0.09 nmol/mL ine, C16 -- REFERENCE VALUE -- < 0.23 (> or = 8 years) 3-OH- 0.00 nmol/mL hexadecenoylcarnitine,C16:1-OH -- REFERENCE VALUE -- < 0.06 (> or = 8 years) 3-OH- 0.00 nmol/mL hexadecanoylcarnitine, C16-OH -- REFERENCE VALUE -- < 0.06 (> or = 8 years) Linoleylcarnitine, 0.03 nmol/mL C18:2 -- REFERENCE VALUE -- < 0.24 (> or = 8 years) Oleylcarnitine, 0.06 nmol/mL C18:1 -- REFERENCE VALUE -- < 0.39 (> or = 8 years) Stearoylcarnitine, 0.04 nmol/mL C18 -- REFERENCE VALUE -- < 0.14 (> or = 8 years) 3-OH- Below detection limit. nmol /mL linoleylcarnitine, C18:2-OH A quantitative value cannot be provided because the concentration of 4-HI-ekvemsnprxuuzmtqnngkrvrs is below the assay's limit of detection, <0.02 nmol/mL. -- REFERENCE VALUE -- < 0.06 (> or = 8 years) 3-OH- Below detection limit. nmol/mL oleylcarnitine, C18:1-OH A quantitative value cannot be provided because the concentration of 3-AF-dzmvodxwfvhzyjzmmjbru is below the assay's limit of detection, <0.01 nmol/mL. -- REFERENCE VALUE -- < 0.06 (> or = 8 years) Comment SEE NOTE In this sample, the acylcarnitine profile was normal. Test Performed by: [place] [id number] Supervisory Investigative Specialist: Pardeep Trinidad II, M.D., Ph.D. Lactic acid whole blood Result Value Ref Range Lactic Acid 1.4 0.7 - 2.1 mmol/L CBC with platelets differential Result Value Ref Range WBC 6.4 4.0 - 11.0 10e9/L RBC Count 4.48 3.8 - 5.2 10e12/L Hemoglobin 13.1 11.7 - 15.7 g/dL Hematocrit 39.2 35.0 - 47.0 % MCV 88 78 - 100 fl MCH 29.2 26.5 - 33.0 pg MCHC 33.4 31.5 - 36.5 g/dL RDW 12.9 10.0 - 15.0 % Platelet Count 257 150 - 450 10e9/L Diff Method Automated Method % Neutrophils 48.0 % % Lymphocytes 42.1 % % Monocytes 7.8 % % Eosinophils 1.7 % % Basophils 0.2 % % Immature Granulocytes 0.2 % Absolute Neutrophil 3.1 1.6 - 8.3 10e9/L Absolute Lymphocytes 2.7 0.8 - 5.3 10e9/L Absolute Monoctyes 0.5 0.0 - 1.3 10e9/L Absolute Eosinophils 0.1 0.0 - 0.7 10e9/L Absolute Basophils 0.0 0.0 - 0.2 10e9/L Abs Immature Granulocytes 0.0 0 - 0.4 10e9/L Comprehensive metabolic panel Result Value Ref Range Sodium 138 133 - 144 mmol/L Potassium 3.7 3.4 - 5.3 mmol/L Chloride 105 94 - 109 mmol/L Carbon Dioxide 24 20 - 32 mmol/L Anion Gap 8 3 - 14 mmol/L Glucose 84 70 - 99 mg/dL Urea Nitrogen 8 7 - 30 mg/dL Creatinine 0.66 0.52 - 1.04 mg/dL GFR Estimate >90 Non GFR Calc >60 mL/min/1.7m2 GFR Estimate If Black >90 GFR Calc >60 mL/min/1.7m2 Calcium 9.0 8.5 - 10.1 mg/dL Bilirubin Total 0.1 (L) 0.2 - 1.3 mg/dL Albumin 3.6 3.4 - 5.0 g/dL Protein Total 7.7 6.8 - 8.8 g/dL Alkaline Phosphatase 82 40 - 150 U/L ALT 33 0 - 50 U/L AST 17 0 - 45 U/L Organic acid comprehensive urine Result Value Ref Range 2-Keto Glutaric Urine Negative 0 - 476 ug/mg Cr 2-Keto Isocaproic Urine Negative 0 - 2 ug/mg Cr 2-OH Butyric Urine Negative 0 - 4 ug/mg Cr 2-OH Glutaric Urine Negative 0 - 72 ug/mg Cr 2-OH Isocaproic Urine Negative 0 ug/mg Cr 3ME Crotonylglyc Urine Negative 0 ug/mg Cr 3-OH 3ME Glutaric Urine Negative 0 - 101 ug/mg Cr 3-OH Butyric Urine Negative 0 - 15 ug/mg Cr 3-OH Glutaric Urine Negative 0 - 17 ug/mg Cr 3-OH Isovaleric Urine Negative 0 - 90 ug/mg Cr 3-OH Propionic Urine Negative 0 - 45 ug/mg Cr 4-OH Butyric Urine Negative ug/mg Cr 5-OH Hexanoic Urine Negative ug/mg Cr 7-OH Octanoic Urine Negative ug/mg Cr Acetoacetic Urine Negative 0 - 6 ug/mg Cr Adipic Urine Negative 0 - 29 ug/mg Cr Citric Urine Negative 0 - 2477 ug/mg Cr Ethylmalonic Urine Negative 0 - 21 ug/mg Cr Fumaric Urine Negative 0 - 10 ug/mg Cr Glutaric Urine Negative 0 - 11 ug/mg Cr Glyceric Urine Negative ug/mg Cr Glyoxylic Urine Negative 0 - 59 ug/mg Cr Hexanoylglycine Urine Negative 0 ug/mg Cr Isovalerylglyc Urine Negative 0 - 16 ug/mg Cr Isocitric Urine Negative 0 - 285 ug/mg Cr Lactic Urine Negative 0 - 132 ug/mg Cr Methyl Citric Urine Negative 0 - 41 ug/mg Cr Methyl Malonic Urine Negative 0 - 14 ug/mg Cr N-Acetylaspartic Urine Negative 0 - 80 ug/mg Cr Oxalic Urine Negative ug/mg Cr Phenylacetic Urine Negative 0 - 6 ug/mg Cr Phenyllactic Urine Negative 0 ug/mg Cr Phenylpropglyc Urine Negative 0 ug/mg Cr Phenylpyruvic Urine Negative 0 ug/mg Cr Pyroglutamic Urine Negative 0 - 139 ug/mg Cr P-OH Phenylacetic Urine Negative 0 - 182 ug/mg Cr P-OH Phenyllactic Urine Negative 0 - 15 ug/mg Cr P-OH Phenylpyruvic Urine Negative 0 - 28 ug/mg Cr Propionylglycine Urine Negative 0 ug/mg Cr Pyruvic Urine Negative 0 - 40 ug/mg Cr Sebacic Urine Negative 0 ug/mg Cr Suberic Urine Negative 0 - 19 ug/mg Cr Suberylglycine Urine Negative ug/mg Cr Succinic Urine Negative 0 - 120 ug/mg Cr Tiglyglycine Urine Negative ug/mg Cr Creatinine urine calculation only Result Value Ref Range Creatinine Urine 92 mg/dL --------- DAYANARA BEE M.D. Professor and Director Division of Genetics and Metabolism Department of Pediatrics [facility] Routed to patient in Comm Mgt Also to Alfonso Tang To Adelso Dawson Melissa documented in this encounter Nursing Notes Courtney Lepe, [facility] - 01/07/2015 8:46 AM CDT Chief Complaint Patient presents with ??? Establish Care Patient is here to establish care Courtney Lepe [facility] 8:46 AM on 01/07/2015. documented in this encounter Plan of Treatment Upcoming Encounters Date Type Specialty Care Team Description 08/19/2022 Office Visit Gastroenterology Mirza Vasquez MD [address] [place] [id number] (Wo rk) Scheduled Referrals Name Type Priority Associated Diagnoses Order S chedule GENETIC COUNSELING Referral Routine Autonomic nervous syst em Ordered: 01/07/2015 SERVICES disorder Chronic Migraine Without Aura, With Intractable Migraine, So Stated, Without Mention Of Status Migrainos us Syncope Abdominal Pain, Generalized documented as of this encounter Procedures Procedure Name Priority Date/Time Associated Comments Diagnosis CBC WITH PLATELETS & Routine 01/07/2015 4:44 Autonomic nervous Results for this DIFFERENTIAL PM CDT system disorder procedure are in Chronic migraine the results without aura, with section. intractable migraine, so stated, without mention of status migrainosus Syncope Abdominal pain, generalized PYRUVIC ACID Routine 01/07/2015 4:44 Autonomic nervous Results for this PM CDT system disorder procedure are in Chronic migraine the results without aura, with section. intractable migraine, so stated, without mention of status migrainosus Syncope Abdominal pain, generalized LACTIC ACID WHOLE BLOOD Routine 01/07/2015 4:44 Autonomic nerv ous Results for this PM CDT system disorder procedure are in Chronic migraine the results without aura, with section. intractable migraine, so stated, without mention of status migrainosus Syncope Abdominal pain, generalized COMPREHENSIVE METABOLIC Routine 01/07/2015 4:44 Autonomic nerv ous Results for this PANEL PM CDT system disorder procedure are in Chronic migraine the results without aura, with section. intractable migraine, so stated, without mention of status migrainosus Syncope Abdominal pain, generalized CK TOTAL Routine 01/07/2015 4:44 Autonomic nervous Results for this PM CDT system disorder procedure are in Chronic migraine the results without aura, with section. intractable migraine, so stated, without mention of status migrainosus Syncope Abdominal pain, generalized CARNITINE FREE AND Routine 01/07/2015 4:44 Autonomic nervous R esults for this TOTAL PM CDT system disorder procedure are in Chronic migraine the results without aura, with section. intractable migraine, so stated, without mention of status migrainosus Syncope Abdominal pain, generalized AMINO ACIDS PLASMA Routine 01/07/2015 4:44 Autonomic nervous R esults for this QUANTITATIVE PM CDT system disorder procedure are in Chronic migraine the results without aura, with section. intractable migraine, so stated, without mention of status migrainosus Syncope Abdominal pain, generalized ACYLCARNITINES Routine 01/07/2015 4:44 Autonomic nervous Resul ts for this QUANTITATIVE PLASMA PM CDT system disor sofia procedure are in Chronic migraine the results without aura, with section. intractable migraine, so stated, without mention of status migrainosus Syncope Abdominal pain, generalized ORGANIC ACID Routine 01/07/2015 4:12 Autonomic nervous Results for this COMPREHENSIVE URINE PM CDT system disor sofia procedure are in Chronic migraine the results without aura, with section. intractable migraine, so stated, without mention of status migrainosus Syncope Abdominal pain, generalized CREATININE URINE Routine 01/07/2015 4:12 Autonomic nervous Res ults for this CALCULATION ONLY (LAB PM CDT system disorder pro cedure are in ONLY) the results section. documented in this encounter Results (ABNORMAL) Comprehensive metabolic panel (01/07/2015 4:44 PM CDT) [facility] gist Method Time Signature Sodium 138 133 - 144 [facility] mmol/L [facility] Potassium 3.7 3.4 - 5.3 [facility] mmol/L [facility] Chloride 105 94 - 109 [facility] mmol/L [facility] Carbon Dioxide 24 20 - 32 [facility] mmol/L [facility] Anion Gap 8 3 - 14 [facility] mmol/L [facility] Glucose 84 70 - 99 [facility] mg/dL [facility] Urea Nitrogen 8 7 - 30 [facility] mg/dL [facility] Creatinine 0.66 0.52 - [facility] 1[facility]04 [facility] mg/dL [facility] GFR Estimate >90 >60 [facility] Non GFR Calc mL/min/1. [facility] [address] GFR Estimate If >90 >60 [facility] Black GFR Calc mL/min/1. [place] [facility] EDICAL 7m2 [facility] Calcium 9.0 8.5 - [facility] 10.1 [place] [facility] mg/dL [facility] Bilirubin Total 0.1 (L) 0.2 - 1.3 [facility] mg/dL [facility] Albumin 3.6 3.4 - 5.0 [facility] g/dL [facility] Protein Total 7.7 6.8 - 8.8 [facility] g/dL [facility] Alkaline 82 40 - 150 [facility] Phosphatase U/L [facility] ALT 33 0 - 50 [facility] U/L [facility] AST 17 0 - 45 [facility] U/L [facility] Specimen Anatomical Collection Method Collection Time Receive d Time (Source) Location / / Volume Laterality Blood specimen 01/07/2015 4:44 PM 015 4:46 (specimen) CDT PM CDT Dayanara Bee MD LAB - BLOOD ORDERABLES Performing Organization Address City/State/ZIP Code Phon e Number [facility] [address] [place], [place] [id number] [place] [address] CBC with platelets differential (01/07/2015 4:44 PM CDT) [facility] gist Method Time Signature WBC 6.4 4.0 - [facility] 11.0 [facility] 10e9/L [facility] RBC Count 4.48 3.8 - 5.2 [facility] 10e12/L [facility] Hemoglobin 13.1 11.7 - [facility] 15.7 g/dL [facility] Hematocrit 39.2 35.0 - [facility] 47.0 % [facility] MCV 88 78 - 100 [facility] fl [facility] MCH 29.2 26.5 - [facility] 33.0 pg [facility] MCHC 33.4 31.5 - [facility] 36.5 g/dL [facility] RDW 12.9 10.0 - [facility] 15.0 % [facility] Platelet Count 257 150 - 450 [facility] 10e9/L [facility] Diff Method Automated [facility] Method [facility] % Neutrophils 48.0 % [facility] % Lymphocytes 42.1 % [facility] % Monocytes 7.8 % [facility] % Eosinophils 1.7 % [facility] % Basophils 0.2 % [facility] % Immature 0.2 % [facility] Granulocytes [facility] Absolute 3.1 1.6 - 8.3 [facility] Neutrophil 10e9/L [facility] Absolute 2.7 0.8 - 5.3 [facility] Lymphocytes 10e9/L [facility] Absolute 0.5 0.0 - 1.3 [facility] Monocytes 10e9/L [facility] Absolute 0.1 0.0 - 0.7 [facility] Eosinophils 10e9/L [facility] Absolute 0.0 0.0 - 0.2 [facility] Basophils 10e9/L [facility] Abs Immature 0.0 0 - 0.4 [facility] Granulocytes 10e9/L [facility] Specimen Anatomical Collection Method Collection Time Receive d Time (Source) Location / / Volume Laterality Blood specimen 01/07/2015 4:44 PM 015 4:46 (specimen) CDT PM CDT Dayanara Bee MD LAB - BLOOD ORDERABLES Performing Organization Address City/[facility]/ZIP Code Phon e Number [facility] [address] Lactic acid whole blood (01/07/2015 4:44 PM CDT) P athologist Signature Lactic Acid 1.4 0.7 - 2.1 [facility] mmol/L [facility] Specimen Anatomical Collection Method Collection Time Receive d Time (Source) Location / / Volume Laterality Blood specimen 01/07/2015 4:44 PM 015 4:46 (specimen) CDT PM CDT Dayanara Bee MD LAB - BLOOD ORDERABLES Performing Organization Address City/[facility] Code Phon e Number [facility] [address] Acylcarnitines plasma quantitative (01/07/2015 4:44 PM CDT) Component Value Ref Test Analysis Performed Pathologis t Range Method Time At Signature Acylcarn SEE NOTE 01/09/2015 04:34 PM 00 U [facility] Quant Unit: not reported OF [place] Plasma (Note) [facility] Test ?Result ? Flag ??Unit ?? RefValue CAMPUS ------ Acylcarnitines, Quantitative, P Acetylcarnitine, ?5.58 ? nmol/mL ?? C2 ?? -- REFERENCE VALUE -- ?? 2.00-17.83 (> or = 8 years) Propionylcarnitine ??0.60 ? nmol/mL ?? , C3 ?? -- REFERENCE VALUE -- ?? < 0.88 (> or = 8 years) Iso- ?0.27 ? nmol/mL ?? /Butyrylcarnitine, C4 ?? -- REFERENCE VALUE -- ?? < 0.83 (> or = 8 years) Isovaleryl-/2- ?0.16 ? nmol/mL ?? Methylbutyrylcarn C5 ?? -- REFERENCE VALUE -- ?? < 0.51 (> or = 8 years) Hexanoylcarnitine, ??0.03 ? nmol/mL ?? C6 ?? -- REFERENCE VALUE -- ?? < 0.17 (> or = 8 years) 3-OH- ? 0.01 ? nmol/mL ?? hexanoylcarnitine, C6-OH ?? -- REFERENCE VALUE -- ?? < 0.09 (> or = 8 years) Octenoylcarnitine, ??0.06 ? nmol/mL ?? C8:1 ?? -- REFERENCE VALUE -- ?? < 0.88 (> or = 8 years) Octanoylcarnitine, ??0.08 ? nmol/mL ?? C8 ?? -- REFERENCE VALUE -- ?? < 0.78 (> or = 8 years) Decenoylcarnitine, ??0.04 ? nmol/mL ?? C10:1 ?? -- REFERENCE VALUE -- ?? < 0.47 (> or = 8 years) Decanoylcarnitine, ??0.06 ? nmol/mL ?? C10 ?? -- REFERENCE VALUE -- ?? < 0.88 (> or = 8 years) Glutarylcarnitine, ??0.03 ? nmol/mL ?? C5-DC ?? -- REFERENCE VALUE -- ?? < 0.11 (> or = 8 years) Dodecenoylcarnitin ??0.03 ? nmol/mL ?? e, C12:1 ?? -- REFERENCE VALUE -- ?? < 0.35 (> or = 8 years) Dodecanoylcarnitin ??0.04 ? nmol/mL ?? e, C12 ?? -- REFERENCE VALUE -- ?? < 0.26 (> or = 8 years) 3-OH- ? 0.01 ? nmol/mL ?? dodecanoylcarnitine, C12-OH ?? -- REFERENCE VALUE -- ?? < 0.08 (> or = 8 years) Tetradecadienoylca ??Below detection limit. ? nmol/m L ?? rnitine, C14:2 ?? A quantitative value cannot be provided because the ?? concentration of tetradecadienoylcarnitine is below the ?? assay's limit of detection, <0.02 nmol/mL. ?? -- REFERENCE VALUE -- ?? < 0.18 (> or = 8 years) Tetradecenoylcarni ??0.02 ? nmol/mL ?? gris, C14:1 ?? -- REFERENCE VALUE -- ?? < 0.24 (> or = 8 years) Tetradecanoylcarni ??0.02 ? nmol/mL ?? gris, C14 ?? -- REFERENCE VALUE -- ?? < 0.12 (> or = 8 years) 3-OH- ? Below detection limit. ? nmol/mL ?? tetradecenoylcarnitine C14:1OH ?? A quantitative value cannot be provided because the ?? concentration of 4-OD-kxprosfnsuaojitosmphom is below th e ?? assay's limit of detection, <0.01 nmol/mL. ?? -- REFERENCE VALUE -- ?? < 0.13 (> or = 8 years) 3-OH- ? 0.00 ? nmol/mL ?? tetradecanoylcarnitine, C14-OH ?? -- REFERENCE VALUE -- ?? < 0.08 (> or = 8 years) Hexadecenoylcarnit ??0.01 ? nmol/mL ?? ine, C16:1 ?? -- REFERENCE VALUE -- ?? < 0.10 (> or = 8 years) Hexadecanoylcarnit ??0.09 ? nmol/mL ?? ine, C16 ?? -- REFERENCE VALUE -- ?? < 0.23 (> or = 8 years) 3-OH- ? 0.00 ? nmol/mL ?? hexadecenoylcarnitine,C16:1-OH ?? -- REFERENCE VALUE -- ?? < 0.06 (> or = 8 years) 3-OH- ? 0.00 ? nmol/mL ?? hexadecanoylcarnitine, C16-OH ?? -- REFERENCE VALUE -- ?? < 0.06 (> or = 8 years) Linoleylcarnitine, ??0.03 ? nmol/mL ?? C18:2 ?? -- REFERENCE VALUE -- ?? < 0.24 (> or = 8 years) Oleylcarnitine, ? 0.06 ? nmol/mL ?? C18:1 ?? -- REFERENCE VALUE -- ?? < 0.39 (> or = 8 years) Stearoylcarnitine, ??0.04 ? nmol/mL ?? C18 ?? -- REFERENCE VALUE -- ?? < 0.14 (> or = 8 years) 3-OH- ? Below detection limit. ? nmol/mL ?? linoleylcarnitine, C18:2-OH ?? A quantitative value cannot be provided because the ?? concentration of 4-DA-hgqnpmgqyeryhdbfctppaipv is below the ?? assay's limit of detection, <0.02 nmol/mL. ?? -- REFERENCE VALUE -- ?? < 0.06 (> or = 8 years) 3-OH- ? Below detection limit. ? nmol/mL ?? oleylcarnitine, C18:1-OH ?? A quantitative value cannot be provided because the ?? concentration of 6-RH-picpgyyqdtnqoosyouyhr is below the ?? assay's limit of detection, <0.01 nmol/mL. ?? -- REFERENCE VALUE -- ?? < 0.06 (> or = 8 years) Comment ? SEE NOTE ?? In this sample, the acylcarnitine profile was normal. ?? Test Performed by: ?? [facility] ?? [address] [place] [address] ?? Supervisory Investigative Specialist: Pardeep Trinidad II, M.D., Ph.D. Specimen Anatomical Collection Method Collection Time Receive d Time (Source) Location / / Volume Laterality Blood specimen 01/07/2015 4:44 PM 015 4:46 (specimen) CDT PM CDT Dayanara Bee MD LAB - BLOOD ORDERABLES Performing Organization Address [facility] Phon e Number [address] CK total (01/07/2015 4:44 PM CDT) P athologist Signature CK Total 84 30 - 225 [facility] Specimen Anatomical Collection Method Collection Time Receive d Time (Source) Location / / Volume Laterality Blood specimen 01/07/2015 4:44 PM 015 4:46 (specimen) CDT PM CDT Dayanara Bee MD LAB - BLOOD ORDERABLES Performing Organization Address [facility] Phon e Number [facility] [address] (ABNORMAL) Carnitine free and total (01/07/2015 4:44 PM CDT) P athologist Signature Carnitine Free 24 (L) [facility] Comment: Reference range: 25 to 60 Unit: umol/L Carnitine Total 32 (L) [facility] Comment: Reference range: 34 to 86 Unit: umol/L (Note) Test developed and characteristics deter mined by [employer]. See Compliance Statement B : [employer]/CS Carnitine Esterified 8 [facility] Comment: Reference range: 5 to 29 Unit: umol/L Carnitine Esterified/Free Ratio 0.3 [facility] Comment: Reference range: 0.1 to 1.0 (Note) Performed by [employer], [address] [place] [address] [email or web address], Paul Roque MD, L ab. Director Specimen Anatomical Collection Method Collection Time Receive d Time (Source) Location / / Volume Laterality Blood specimen 01/07/2015 4:44 PM 015 4:46 (specimen) CDT PM CDT Dayanara Bee MD LAB - BLOOD ORDERABLES Performing Organization Address City/State/ZIP Code Phon e Number [facility] [address] [place] [address] [facility] (ABNORMAL) Amino acids plasma quantitative (01/07/2015 4:44 PM CDT) [facility] gist Method Time Signature Alanine 36 22 - 62 [facility] Arginine 4 2 - 18 [facility] Asparagine 5 1 - 5 [facility] Aspartic Acid <1 0 - 4 [facility] Citrulline 2 0 - 8 [facility] Cystine 9 3 - 15 [facility] Glutamic Acid 8 0 - 16 [facility] Glutamine 60 41 - 86 [facility] Glycine 17 13 - 50 [facility] Histidine 8 3 - 15 [facility] 1-Methylhistidine 1 0 - 2 [facility] Hydroxyproline 1 0 - 3 [facility] Isoleucine 7 4 - 11 [facility] Leucine 13 8 - 21 [facility] Lysine 14 6 - 26 [facility] Methionine 2 1 - 6 [facility] Ornithine 5 2 - 16 [facility] Phenylalanine 7 3 - 10 [facility] Proline 16 0 - 48 [facility] Serine 7 4 - 18 [facility] Taurine 4 (L) 7 - 32 [facility] Threonine 9 5 - 25 [facility] Tyrosine 6 4 - 13 [facility] Valine 24 8 - 46 [facility] Specimen Anatomical Collection Method Collection Time Receive d Time (Source) Location / / Volume Laterality Blood specimen 01/07/2015 4:44 PM 015 4:46 (specimen) CDT PM CDT Dayanara Bee MD LAB - BLOOD ORDERABLES Performing Organization Address City/[facility]/ZIP Code Phon e Number [address] (ABNORMAL) Pyruvic acid (01/07/2015 4:44 PM CDT) athologist Signature Pyruvic 0.158 (H) [facility] Comment: Reference range: 0.030 to 0.107 Unit: mmol/L (Note) Performed by [employer], [address] [place] [id number] [email or web address], Paul Roque MD, L ab. Director Specimen Anatomical Collection Method Collection Time Receive d Time (Source) Location / / Volume Laterality Blood specimen 01/07/2015 4:44 PM 015 4:46 (specimen) CDT PM CDT Dayanara Bee MD LAB - BLOOD ORDERABLES Performing Organization Address City/State/ZIP Code Phon e Number [address] Creatinine urine calculation only (01/07/2015 4:12 PM CDT) athologist Signature Creatinine 92 mg/dL [facility] Specimen Anatomical Collection Method Collection Time Receive d Time (Source) Location / / Volume Laterality 01/07/2015 4:12 PM 5 4:14 CDT PM CDT Dayanara Bee MD LAB - URINE ORDERABLES Performing Organization Address City/State/ZIP Code Phon e Number [facility] [address] [place] [address] [facility] Organic acid comprehensive urine (01/07/2015 4:12 PM CDT) [facility] Method Time Signature 2-Keto Glutaric Negative 0 - 476 [facility] Urine ug/mg Cr [facility] 2-Keto Isocaproic Negative 0 - 2 [facility] F Urine ug/mg Cr [facility] 2-OH Butyric Urine Negative 0 - 4 [facility] ug/mg Cr [facility] 2-OH Glutaric Urine Negative 0 - 72 [facility] ug/mg Cr [facility] 2-OH Isocaproic Negative 0 ug/mg [facility] Urine Cr [facility] 3ME Crotonylglyc Negative 0 ug/mg [facility] Urine Cr [facility] 3-OH 3ME Glutaric Negative 0 - 101 [facility] O F Urine ug/mg Cr [facility] 3-OH Butyric Urine Negative 0 - 15 [facility] ug/mg Cr [facility] 3-OH Glutaric Urine Negative 0 - 17 [facility] ug/mg Cr [facility] 3-OH Isovaleric Negative 0 - 90 [facility] Urine ug/mg Cr [facility] 3-OH Propionic Urine Negative 0 - 45 [facility] Y [facility] ug/mg Cr [facility] 4-OH Butyric Urine Negative ug/mg Cr [facility] 5-OH Hexanoic Urine Negative ug/mg Cr [facility] 7-OH Octanoic Urine Negative ug/mg Cr [facility] Acetoacetic Urine Negative 0 - 6 [facility] F ug/mg Cr [facility] Adipic Urine Negative 0 - 29 [facility] ug/mg Cr [facility] Citric Urine Negative 0 - 2477 [facility] ug/mg Cr [facility] Ethylmalonic Urine Negative 0 - 21 [facility] ug/mg Cr [facility] Fumaric Urine Negative 0 - 10 [facility] ug/mg Cr [facility] Glutaric Urine Negative 0 - 11 [facility] ug/mg Cr [facility] Glyceric Urine Negative ug/mg Cr [facility] Glyoxylic Urine Negative 0 - 59 [facility] ug/mg Cr [facility] Hexanoylglycine Negative 0 ug/mg [facility] Urine Cr [facility] Isovalerylglyc Urine Negative 0 - 16 [facility] Y [facility] ug/mg Cr [facility] Isocitric Urine Negative 0 - 285 [facility] ug/mg Cr [facility] Lactic Urine Negative 0 - 132 [facility] ug/mg Cr [facility] Methyl Citric Urine Negative 0 - 41 [facility] ug/mg Cr [facility] Methyl Malonic Urine Negative 0 - 14 [facility] ug/mg Cr [facility] N-Acetylaspartic Negative 0 - 80 [facility] Urine ug/mg Cr [facility] Oxalic Urine Negative ug/mg Cr [facility] Phenylacetic Urine Negative 0 - 6 [facility] ug/mg Cr [facility] Phenyllactic Urine Negative 0 ug/mg [facility] Cr [facility] Phenylpropglyc Urine Negative 0 ug/mg [facility] OF Cr [facility] Phenylpyruvic Urine Negative 0 ug/mg [facility] Cr [facility] Pyroglutamic Urine Negative 0 - 139 [facility] ug/mg Cr [facility] P-OH Phenylacetic Negative 0 - 182 [facility] F Urine ug/mg Cr [facility] P-OH Phenyllactic Negative 0 - 15 [facility] O F Urine ug/mg Cr [facility] P-OH Phenylpyruvic Negative 0 - 28 [facility] Urine ug/mg Cr [facility] Propionylglycine Negative 0 ug/mg [facility] Urine Cr [facility] Pyruvic Urine Negative 0 - 40 [facility] ug/mg Cr [facility] Sebacic Urine Negative 0 ug/mg [facility] Cr [facility] Suberic Urine Negative 0 - 19 [facility] ug/mg Cr [facility] Suberylglycine Urine Negative ug/mg Cr [facility] Succinic Urine Negative 0 - 120 [facility] ug/mg Cr [facility] Tiglyglycine Urine Negative ug/mg Cr [facility] Specimen Anatomical Collection Method Collection Time Receive d Time (Source) Location / / Volume Laterality Urine specimen 01/07/2015 4:12 PM 015 4:14 (specimen) CDT PM CDT Dayanara Bee MD LAB - URINE ORDERABLES Performing Organization Address City/State/ZIP Code Phon e Number [facility] [address] [place], [place] [id number] [place] [address] documented in this encounter Visit Diagnoses Diagnosis 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
--- OUTSIDE RECORDS SUMMARY | 2022-06-30 09:53 | XMS_ITS | Encounter Summary ---
:1990 Author Organization [place] Address [address] [place] [address] Care Team Providers Name Role Phone Alfonso Tang Primary Care Provider Unavailable Dayanara Bee MD Unavailable Min Lange MD Unavailable Unavailable Marlo Madsen MD Unavailable Mel Buckley RN Unavailable Encounter Details Date Type Department Care Team Description 12/05/2014 Ambulatory - [facility] Alfonso Tang RETIRED Provider, Historical Social History Tobacco Use Types Packs/Day Years Used Date Smoking Tobacco: Never Smokeless Tobacco: Never Alcohol Use Standard Drinks/Week Comments No 0 (1 standard drink = 0.6 oz pure alcoho l) Sex Assigned at Date Recorded 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 documented as of this encounter Plan of Treatment Upcoming Encounters Date Type Specialty Care Team Description 08/19/2022 Office Visit Gastroenterology Mirza Vasquez MD [address] [place], [place] [phone] (Wo rk) documented as of this encounter Visit Diagnoses Not on filedocumented in this encounter Care Teams Electric Engine Mechanic Relationship Specialty Start Date End Date Alfonso Tang PCP - General Family Practice 09/04/13 08/12/21 Dayanara Bee MD MD Pediatrics 12/26/[address] [place] [address] [address] [place] [address] Min Lange MD MD Neurology 03/30/16 Marlo Madsen MD Cardiology 10/27/16 [place] [facility] [address] [place] [address] Mel Buckley, RN Nurse Coordinator Physical Medicine and 12/02/16 Rehabilitation documented as of this encounter
--- OUTSIDE RECORDS SUMMARY | 2022-06-30 09:53 | XMS_ITS | Encounter Summary ---
:1990 Author Organization [facility] Address [address] [place] [address] Care Team Providers Name Role Phone Alfonso Tang Primary Care Provider Unavailable Dayanara Bee MD Unavailable Reason for Visit Reason Onset Date Comments Refill Request 01/08/2015 Encounter Details Date Type Department Care Team Description 01/08/2015 Refill [facility] Marlo Madsen MD Refill Request Physicians Heart [address] [facility] [address] [place], [place] [phone] [place] [address] 4th Floor, Clinic [address] [facility] [address] [place] [phone] Social History Tobacco Use Types Packs/Day Years Used Date Smoking Tobacco: Never Smokeless Tobacco: Never Alcohol Use Standard Drinks/Week Comments No 0 (1 standard drink = 0.6 oz pure alcoho l) Sex Assigned at Date Recorded 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 documented as of this encounter Plan of Treatment Upcoming Encounters Date Type Specialty Care Team Description 08/19/2022 Office Visit Gastroenterology Mirza Vasquez MD [address] [place] [address] (Wo rk) documented as of this encounter Visit Diagnoses Diagnosis Autonomic dysfunction - Primary Unspecified disorder of autonomic nervou s system documented in this encounter Care Teams Learn To Swim Instructor Relationship Specialty Start Date End Date Alfonso Tang PCP - General Family Practice 09/04/13 08/12/21 Dayanara Bee MD MD Pediatrics 12/26/[address] [place] [phone] documented as of this encounter
--- OUTSIDE RECORDS SUMMARY | 2022-06-30 09:53 | XMS_ITS | Encounter Summary ---
:1990 Author Organization [facility] Address [address] [place] [address] Care Team Providers Name Role Phone Alfonso Tang Primary Care Provider Unavailable Dayanara Bee MD Unavailable Min Lange MD Unavailable Unavailable Marlo Madsen MD Unavailable Mel Buckley RN Unavailable Encounter Details Date Type Department Care Team Description 10/15/2014 [facility] Alfonso Tang RETIRED Nausea [facility] Provider, Historical [address] [phone] Social History Tobacco Use Types Packs/Day Years Used Date Smoking Tobacco: Never Smokeless Tobacco: Never Alcohol Use Standard Drinks/Week Comments No 0 (1 standard drink = 0.6 oz pure alcoho l) Sex Assigned at Date Recorded 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 of 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 encounter Plan of Treatment Upcoming Encounters Date Type Specialty Care Team Description 08/19/2022 Office Visit Gastroenterology Mirza Vasquez MD [address] [place], [place] [phone] (Wo rk) documented as of this encounter Visit Diagnoses Diagnosis Nausea Nausea alone documented in this encounter Care Teams Yard Switch Operator Relationship Specialty Start Date End Date Alfonso Tang PCP - General Family Practice 09/04/13 08/12/21 Dayanara Bee MD MD Pediatrics 12/26/14 [address] [facility] [address] [place] [address] Min Lange MD MD Neurology 03/30/16 Marlo Madsen MD Cardiology 10/27/16 [place] [facility] [address] [place], [place] [phone] Mel Buckley, RN Nurse Coordinator Physical Medicine and 12/02/16 Rehabilitation documented as of this encounter
--- OUTSIDE RECORDS SUMMARY | 2022-06-30 09:53 | XMS_ITS | Encounter Summary ---
:1990 Author Organization [facility] Address [address] [place] [address] Care Team Providers Name Role Phone Alfonso Tang Primary Care Provider Unavailable Reason for Visit Reason Onset Date Comments Refill Request 11/15/2014 Zonisamide Encounter Details Date Type Department Care Team Description 11/15/2014 Refill [facility] Min Lange, Refill Request Physicians [facility] (Michelle wolfe) [facility] [address] [place] [address], [address] [place] [address] Social History Tobacco Use Types Packs/Day Years Used Date Smoking Tobacco: Never Smokeless Tobacco: Never Alcohol Use Standard Drinks/Week Comments No 0 (1 standard drink = 0.6 oz pure alcoho l) Sex Assigned at Date Recorded 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
--- OUTSIDE RECORDS SUMMARY | 2022-06-30 09:53 | XMS_ITS | Encounter Summary ---
:1990 Author Organization [facility] Address [address] [place] [address] Care Team Providers Name Role Phone Alfonso Tang Primary Care Provider Unavailable Dayanara Bee MD Unavailable Min Lange MD Unavailable Unavailable Marlo Madsen MD Unavailable Mel Buckley RN Unavailable Reason for Visit Reason Comments Medication Refill Encounter Details Date Type Department Care Team Description 10/11/2014 Communication - [facility] RETIRED Medication Refill [facility] Centralized Provider, Historical Scheduling Formerly [facility] [place] [address] Social History Tobacco Use Types Packs/Day Years Used Date Smoking Tobacco: Never Smokeless Tobacco: Never Alcohol Use Standard Drinks/Week Comments No 0 (1 standard drink = 0.6 oz pure alcoho l) Sex Assigned at Date Recorded 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 documented as of this encounter Plan of Treatment Upcoming Encounters Date Type Specialty Care Team Description 08/19/2022 Office Visit Gastroenterology Mirza Vasquez MD [address] [place] [address] (Wo rk) documented as of this encounter Visit Diagnoses Diagnosis Nausea Nausea alone documented in this encounter Care Teams Engineering Specialist Relationship Specialty Start Date End Date Alfonso Tang PCP - General Family Practice 09/04/13 08/12/21 Dayanara Bee MD MD Pediatrics 12/26/14 [address] [facility] [address] [place] [address] Min Lange MD MD Neurology 03/30/16 Marlo Madsen MD Cardiology 10/27/16 CT [address] [facility] [address] [place] [address] Mel Buckley, RN Nurse Coordinator Physical Medicine and 12/02/16 Rehabilitation documented as of this encounter
--- OUTSIDE RECORDS SUMMARY | 2022-06-30 09:53 | XMS_ITS | Encounter Summary ---
:1990 Author Organization [facility] Address [address] [place] [address]. [place] [address] Care Team Providers Name Role Phone Alfonso Tang Primary Care Provider Unavailable Reason for Visit Auth/Cert - Closed Specialty Diagnoses / Procedures Referred By Contact Refer red To Contact Surgery Diagnoses Family History of Colon Cancer Uu Periop Procedures COLONOSCOPY WITH CO2 INSUFFLATION [address] [place] [address] Phone: Fax: Referral ID Status Reason Start Date Expiration Date Visits Requ ested Visits Authorized [id number] Closed 1 1 Encounter Details Date Type Department Care Team Description 12/13/2014 Anesthesia Event Formerly [facility] Gokul Michel MD XXX RESIGNED XXX [facility] [place], [place] [id number] PeriOp Services Demond Zimmerman APRN SCHEDULING SPECIALIST [address] [place], [place] [address] [address] [place] [address] Anesthesia Record Procedure Summary Procedure Name Responsible Anesthesia Start Anesthesia Stop Anesthesiologist Time Time Colonoscopy with Gokul Michel MD 12/13/14 0724 12/13/14 0837 polypectomy (Rectum) Events Date Time Event Comment 12/13/2014 0724 An Start 0731 An Start Data 0744 AN INCISION 0831 an stop data 0837 An Stop Electronically s igned by Demond Zimmerman on December 13, 2014 9: 30 AM Name Total midazolam 1mg/mL 2 mg fentanyl 50mcg/mL 100 mcg propofol 10mg/mL 220 mg propofol 10mg/mL 242.94 mg lactated ringers infusion 300 mL Agents Name O2 Exp Isoflurane O2 Delivery Device Ins Isoflurane Blood No blood administrations on file. 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 Patient Condition Respiratory Function (RR / SpO2 / Airway Patency): Satisfactory Cardiac Function (HR / Rhythm / BP): Satisfactory Mental Status: Satisfactory. Able to fully participate in evaluation Temperature: Satisfactory Pain Control: Satisfactory PONV: None Beta-Cait Therapy: None indicated Hydration Status: Satisfactory Last Vitals: Filed Vitals: 12/13/14 0845 12/13/14 0900 12/13/14 0915 BP: 113/84 112/73 112/79 Pulse: 74 72 74 Temp: 36.4 ??C (97.5 ??F) Resp: 16 16 18 SpO2: 98% 99% 97% Additional Comments: Anesthesia Preprocedure Evaluation - Gokul Michel MD - 12/13/2014 7:27 AM CDT Anesthesia Evaluation . Pt has had prior anesthetic. Type: General History of anesthetic complications ROS/MED HX ENT/Pulmonary: - neg pulmonary ROS Neurologic: (+)migraines, Cardiovascular: - neg cardiovascular ROS METS/Exercise Tolerance: Hematologic: - neg hematologic ROS Musculoskeletal: - neg musculoskeletal ROS GI/Hepatic: - neg GI/hepatic ROS Renal/Genitourinary: - ROS Renal section negative Endo: - neg endo ROS Psychiatric: - neg psychiatric ROS Infectious Disease: - neg infectious disease ROS Malignancy: - no malignancy Other: - neg other ROS Physical Exam Normal systems: cardiovascular, pulmonary and dental Airway Mallampati: I TM distance: >3 FB Neck ROM: full Dental Cardiovascular Rhythm and rate: regular and normal Pulmonary breath sounds clear to auscultation Anesthesia Plan ASA Score: 1 . Plan for MAC - Maintenance will be TIVA. Routine analgesia and antiemetics to be used for post-operative care. Anesthetic plan, risks, benefits and alternatives discussed with: patient or associate financial representative. . History & Physical Review History and physical reviewed and following examination; no interval change. . documented in this encounter Miscellaneous Notes Anesthesia Care Transfer Note - Demond Zimmerman APRN CRNA - 12/13/2014 8:37 AM CDT Anesthesia Care Transfer Note Patient: Latricia Machado Transferred to: PACU Patient vital signs: stable Airway: none documented in this encounter Plan of Treatment Upcoming Encounters Date Type Specialty Care Team Description 08/19/2022 Office Visit Gastroenterology Mirza Vasquez MD [address] [place] [id number] (Wo rk) documented as of this encounter Visit Diagnoses Not on filedocumented in this encounter Administered Medications Inactive Administered Medications - up to 3 most recent administrations Medication Order MAR Action Action Date Dose Rate Site fentaNYL (SUBLIMAZE) injection Given 12/13/2014 7:42 AM CDT 100 mcg Intravenous, PRN, moderate to severe pain, Starting on Aleshia 12/13/14 at 0742, Anesthesia Intra-op lactated ringers infusion New Bag 12/13/2014 7:24 AM CDT at 75-100 mL/hr, Intravenous, CONTINUOUS, UNLESS otherwise indicated., Pre-procedure, Starting on Aleshia 12/13/14 at 0600, Until Aleshia 12/13/14 at 0835 midazolam (VERSED) injection Given 12/13/2014 7:22 AM CDT 2 mg Intravenous, PRN, anxiety, Starting on Aleshia 12/13/14 at 0722, Anesthesia Intra-op propofol (DIPRIVAN) Rate/Dose Change 12/13/2014 8:03 70 mcg/kg/min 34 .9 mL/hr injection 10 mg/mL vial AM CDT Intravenous, CONTINUOUS PRN, Starting on Aleshia 12/13/14 at 0734, Anesthesia Intra-op New Bag 12/13/2014 7:34 AM CDT 50 mcg/kg/min 25 mL/hr propofol (DIPRIVAN) injection 10 mg/mL v ial Given 12/13/2014 8:05 AM CDT 40 mg Intravenous, PRN, Starting on Aleshia 12/13/14 at 0726, Anesthesia Intra-op Given 12/13/2014 8:02 AM CDT 30 mg Given 12/13/2014 7:57 AM CDT 30 mg documented in this encounter Care Teams Casting Room Helper Relationship Specialty Start Date End Date Alfonso Tang PCP - General Family Practice 09/04/13 08/12/21 documented as of this encounter
--- OUTSIDE RECORDS SUMMARY | 2022-06-30 09:53 | XMS_ITS | Encounter Summary ---
:1990 Author Organization [facility] Address [address] [place] [address] Care Team Providers Name Role Phone Alfonso Tang Primary Care Provider Unavailable Reason for Visit Reason Comments Migraine Encounter Details Date Type Department Care Team Description 10/31/2014 - Hospital Encounter [facility] MD [facility] [address] [facility] [place] [address] Migraine 11/01/2014 DEPARTMENT Provider, [address] [phone] Social History Tobacco Use Types Packs/Day Years Used Date Smoking Tobacco: Never Smokeless Tobacco: Never Alcohol Use Standard Drinks/Week Comments No 0 (1 standard drink = 0.6 oz pure alcoho l) Sex Assigned at Date Recorded 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 encounter Last Filed Vital Signs Vital Sign Reading Time Taken Comments Blood Pressure - - Pulse - - Temperature - - Respiratory Rate - - Oxygen Saturation - - Inhaled Oxygen Concentration - - Weight 81.6 kg (180 lb) 10/31/2014 10:38 PM PROCESS SUPERVISOR Height 165.1 cm (5' 5) 10/31/2014 10:38 PM PROCESS SUPERVISOR Body Mass Index 29.95 10/31/2014 10:38 PM PROCESS SUPERVISOR documented in this encounter Medications at Time [...] AM and 3 at 150 capsule 3 05/201511/15/2014 MG capsuleIndications: night Chronic migraine without aura, with intractable migraine, so stated, without mention of status migrainosus documented as of this encounter ED Notes Trey Mccullough MD - 10/31/2014 10:46 PM CST eMERGENCY dEPARTMENT eNCOUnter CHIEF COMPLAINT Chief Complaint Patient presents with ??? Migraine HPI Latricia Machado is a 24 y.o. female who presents to the Emergency Department for evaluation of headache. The patient developed a headache today at 0600. She describes a continual, worsening, 9/10, throbbing left sided headache. The patient reports associated nausea with 5 episodes of emesis and photophobia. To alleviate her symptoms she has been taking ibuprofen, tylenol, percocet and zofran but isn't able to keep any of the medications down due to the severity of her nausea. The patient reports her typical migraine headache pattern is similar to this current headache although she is more nauseated with this headache than she has been with previous ones. Denies fever. Denies focal weakness. Denies visual changes. Denies recent head trauma or injury. This document serves as a record of services performed by Dr. Trey Mccullough. It was created on his/[facility] by Savana Christopher, trained medical office scheduler. The creation of this record is based on the scribespersonal observations and the providers statements to him/her. This document has been checked and approved by the attending provider. RELEVANT HISTORY Past Medical History Diagnosis Date ??? Polycystic ovaries Polycystic ovarian cysts ??? Autonomic dysfunction ??? Anxiety ??? Postconcussion syndrome No past surgical history on file. CURRENT MEDICATIONS Current Outpatient Rx Name Route Sig Dispense Refill ??? fludrocortisone (FLORINEF) 0.1 mg tablet Oral [...] 25 mg by mouth as needed. ??? ondansetron (ZOFRAN ODT) 4 MG disintegrating tablet Oral Take 1 tablet (4 mg total) by mouth every 8 (eight) hours as needed for nausea (As needed for nausea). 6 tablet 2 ??? ondansetron (ZOFRAN-ODT) 4 MG disintegrating tablet Oral Take 4 mg by mouth. ??? oxyCODONE-acetaminophen (PERCOCET) 5-325 mg per tablet Oral Take 1 tablet by mouth every 4 (four) hours as needed for pain. [id number] 20 tablet 0 ??? predniSONE (DELTASONE) 10 MG tablet ??? PRISTIQ 100 mg 24 hr tablet Oral Take 100 mg by mouth once daily. ??? zonisamide (ZONEGRAN) 25 MG capsule 100 mg. ALLERGIES No Known Allergies SOCIAL HISTORY History Social History ??? Marital Status: Single Spouse Name: N/A Number of Children: N/A ??? Years of Education: N/A Social History Main Topics ??? Smoking status: Never Smoker ??? Smokeless tobacco: Not on file ??? Alcohol Use: No ??? Drug Use: No ??? Sexual Activity: Not on file Other Topics Concern ??? Not on file Social History Narrative ??? No narrative on file REVIEW OF SYSTEMS Review of Systems Constitutional: Negative for fever and chills. Eyes: Positive for photophobia. Respiratory: Negative for cough and shortness of breath. Cardiovascular: Negative for chest pain. Gastrointestinal: Positive for nausea. Negative for vomiting, abdominal pain and diarrhea. Genitourinary: Negative for dysuria and frequency. Musculoskeletal: Negative for neck pain. Skin: Negative for rash. Neurological: Positive for headaches. Negative for dizziness. All other systems reviewed and are negative. PHYSICAL EXAM VITAL SIGNS: BP 113/82 Pulse 126 Temp(Src) 97.9 ??F (36.6 ??C) (Oral) Resp 16 Ht 5' 5 (1.651 m) Wt 180 lb (81.647 kg) BMI 29.95 kg/m2 SpO2 99% LMP 10/10/2014 Physical Exam Nursing note and vitals reviewed. Constitutional: She is oriented to person, place, and time. She appears well- developed and well-nourished. Appears uncomfortable. HENT: Head: Normocephalic and atraumatic. Dry around the lips and mildly dry mucous membranes. Eyes: EOM are normal. Pupils are equal, round, and reactive to light. No scleral icterus. Neck: Normal range of motion. Neck supple. Cardiovascular: Normal rate and regular rhythm. Exam reveals no gallop and no friction rub. No murmur heard. Pulmonary/Chest: Effort normal and breath sounds normal. Abdominal: Soft. Bowel sounds are normal. There is no tenderness. Musculoskeletal: She exhibits no edema. Neurological: She is alert and oriented to person, place, and time. She exhibits normal muscle tone. Skin: Skin is warm and dry. No rash noted. Psychiatric: She has a normal mood and affect. LABS No results found for this visit on 10/31/14. RADIOLOGY Please see official radiology report. No results found. ED COURSE and MDM The patient presented with migraine although more severe regarding her vomiting. The patient responded well to Benadryl, Reglan Toradol and Dilaudid. She will be discharged home and follow-up with her primary physician if headache persists tomorrow. FINAL IMPRESSION No diagnosis found. Problem List Items Addressed This Visit None Visit Diagnoses Migraine - Primary Relevant Medications ketorolac injection 30 mg (TORADOL) (Completed) HYDROmorphone injection 1 mg (DILAUDID) (Completed) HYDROmorphone injection 1 mg (DILAUDID) (Completed) This note is an accurate record of both my words and actions as documented by the scribe. Trey Mccullough MD 11/01/14 0109 documented in this encounter Plan of Treatment Upcoming Encounters Date Type Specialty Care Team Description 08/19/2022 Office Visit Gastroenterology Mirza Vasquez MD [address] [place] [address] (Wo rk) documented as of this encounter Visit Diagnoses Diagnosis Migraine Migraine, unspecified, without mention o f intractable migraine without mention of status migrainosus documented in this encounter Care Teams Hog Buyer Relationship Specialty Start Date End Date Alfonso Tang PCP - General Family Practice 09/04/13 08/12/21 documented as of this encounter
--- OUTSIDE RECORDS SUMMARY | 2022-06-30 09:54 | XMS_ITS | Encounter Summary ---
:1990 Author Organization [facility] Address [address] [place] [address]. [place] [address] Care Team Providers Name Role Phone Alfonso Tang Primary Care Provider Unavailable Dayanara Bee MD Unavailable Min Lange MD Unavailable Unavailable Marlo Madsen MD Unavailable Mel Buckley RN Unavailable Encounter Details Date Type Department Care Team Description 06/29/2014 Ambulatory - [facility] Alfonso Tang RETIRED Chronic migraine [facility] Provider, Historical without aura, with [facility] [address]ractable [address] migraine, so [place], [place] stated[facility] [phone] mention of status [phone] migrainosus Social History Tobacco Use Types Packs/Day Years Used Date Smoking Tobacco: Never Smokeless Tobacco: Never Alcohol Use Standard Drinks/Week Comments No 0 (1 standard drink = 0.6 oz pure alcoho l) Sex Assigned at Date Recorded 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 as of this encounter Plan of Treatment Upcoming Encounters Date Type Specialty Care Team Description 08/19/2022 Office Visit Gastroenterology Mirza Vasquez MD [address] [place] [address] (Wo rk) documented as of this encounter Visit Diagnoses Diagnosis Chronic migraine without aura, with intr actable migraine, so stated, without mention of status migrainosus documented in this encounter Care Teams Director Perioperative Relationship Specialty Start Date End Date Alfonso Tang PCP - General Family Practice 09/04/13 08/12/21 Dayanara Bee MD MD Pediatrics 12/26/[address] [place] [address] [address] [place] [address] Min Lange MD MD Neurology 03/30/16 Marlo Madsen MD Cardiology 10/27/[address] [place] [address] Mel Buckley, DIAZ Nurse Coordinator Physical Medicine and 12/02/16 Rehabilitation documented as of this encounter
--- OUTSIDE RECORDS SUMMARY | 2022-06-30 09:54 | XMS_ITS | Encounter Summary ---
:1990 Author Organization [facility] Address [address] [place] [address]. [place] [address] Care Team Providers Name Role Phone Alfonso Tang Primary Care Provider Unavailable Reason for Visit Reason Comments Consult Called patient to discuss in itial consultation with Dr. Peacock for Botox. Encounter Details Date Type Department Care Team Description 07/25/2014 Care Coordination Physical Medicine and Alcira Sequeira Consult (Called [facility], PT patient to discuss [facility] [address] [facility] 297 consultation with 1st Floor, Clinic [address] [place], [place] Dr. 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 Juan David Peacock. Ms. Machado was referred to Dr. Peacock by Dr. Lange, Neurology, [facility], for evaluation for possible use of the botulinum toxins for management of chronic migraine headaches. I was unable to reach her and left voice-mail on her phone with the reason for my call and my contact information, as well as the contact information for my colleague, Margarita Chowdhury RN. This was the second time I have attempted to makecontact with Ms. Machado. I requested a call back to coordinate scheduling this appointment and to discuss any concerns or questions she may have regarding this referral. Currently awaiting call back. ESTATE ATTORNEY documented in this encounter Plan of Treatment Upcoming Encounters Date Type Specialty Care Team Description 08/19/2022 Office Visit Gastroenterology Mirza Vasquez MD [address] [place] [id number] (Wo rk) documented as of this encounter Visit Diagnoses Not on filedocumented in this encounter Care Teams Franchise Manager Relationship Specialty Start Date End Date Alfonso Tang PCP - General Family Practice 09/04/13 08/12/21 documented as of this encounter
--- OUTSIDE RECORDS SUMMARY | 2022-06-30 09:54 | XMS_ITS | Encounter Summary ---
:1990 Author Organization [facility] Address [address] [place] [address]. [place] [address] Care Team Providers Name Role Phone Alfonso Tang Primary Care Provider Unavailable Reason for Visit Reason Comments Consult Called to discuss consultati on and to schedule initial visit. Encounter Details Date Type Department Care Team Description 07/06/2014 Care Coordination Physical Medicine and Alcira Sequeira Consult (Called to [facility], PT discuss [facility] [address] cons ultation and to Building [facility] 297 schedule initial 1st Floor, Clinic [address] [place], [place] visit.) [address] [facility] [address] [place] [address] [phone] (Work) [phone] Social History Tobacco Use Types Packs/Day Years Used Date Smoking Tobacco: Never Smokeless Tobacco: Never Alcohol Use Standard Drinks/Week Comments No 0 (1 standard drink = 0.6 oz pure alcoho l) Sex Assigned at Date Recorded Female 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 Juan David Peacock. Ms. Machado was referred to Dr. Peacock by Dr. Min Lange, Neurology, for evaluation for possible use of the botulinum toxins for management of chronic migraine headache. I was unable to reach herand left voice-mail on her mobile and home phone numbers with the reason for my call and my contact information. I requested a call back to coordinate scheduling this appointment and to discuss any concerns or questions she may have regarding this referral. Currently awaiting call back. documented in this encounter Plan of Treatment Upcoming Encounters Date Type Specialty Care Team Description 08/19/2022 Office Visit Gastroenterology Mirza Vasquez MD [address] [place] [address] (Wo rk) documented as of this encounter Visit Diagnoses Not on filedocumented in this encounter Care Teams Proprietary Trader Relationship Specialty Start Date End Date Alfonso Tang PCP - General Family Practice 09/04/13 08/12/21 documented as of this encounter
--- OUTSIDE RECORDS SUMMARY | 2022-06-30 09:54 | XMS_ITS | Encounter Summary ---
:1990 Author Organization [facility] Address [address] [place] [address] Care Team Providers Name Role Phone Alfonso Tang Primary Care Provider Unavailable Reason for Visit Reason Comments Migraine Encounter Details Date Type Department Care Team Description 07/02/2014 Hospital Encounter [facility] [place], Chan Suárez MD [address] [place] [address] Headache; DEPARTMENT Provider, Historical Migraine without aura, without mention o f intractable migraine without mention of status migrainosus [address] [address] Social History Tobacco Use Types Packs/Day Years Used Date Smoking Tobacco: Never Smokeless Tobacco: Never Alcohol Use Standard Drinks/Week Comments No 0 (1 standard drink = 0.6 oz pure alcoho l) Sex Assigned at Date Recorded Female 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 Use a fissure pea-sized amount. Store at room temperature. Drospirenone-Ethinyl Take 1 tablet by 0 10/16/2015 Estradiol (LIOR PO) mouth daily fludrocortisone (FLORINEF) Take 1 tablet 90 tablet 3 201301/08/2015 0.1 MG tabletIndications: (0.1 mg) by mouth Autonomic dysfunction daily linaclotide (LINZESS) 290 Take 1 capsule 30 capsule 2 201310/09/2014 MCG capsuleIndications: (290 mcg) by Constipation, Abdominal mouth every pain morning (before breakfast) meclizine (ANTIVERT) 25 MG Take 1 tablet by 0 04/15/2016 tablet mouth 3 times daily as needed Multiple Vitamins-Minerals Take 1 tablet by 0 10/31/2021 (WOMENS MULTIVITAMIN PLUS mouth every PO) morning ondansetron (ZOFRAN-ODT) 4 Take 1 tablet by 0 04/15/2016 MG disintegrating tablet mouth as needed zonisamide (ZONEGRAN) 25 4 CAPS a day 120 capsule 3 06/28/20 14 09/21/2014 MG capsuleIndications: Chronic migraine without aura, with intractable migraine, so stated, without mention of status migrainosus documented as of this encounter ED Notes Chan Richards - 07/02/2014 10:22 AM CDT Patient evaluated for typical migraine headache. No evidence of infection. Patient was treated symptomatically medications. She feels much better. She is comfortable with discharge home. Vital signs are normal Chan Richards MD 07/02/14 1024 Historical Provider - 07/02/2014 6:28 AM CDT Chief Complaint: Chief Complaint Patient presents with ??? Migraine HPI: Complained of 2 days of continual aching pain of the head that radiates throughout the entire head and worse with lights and with associated nausea and vomiting. No fever. Patient with history of recurrent migraine and for which this is typical. No other systemic complaints such as cough or rash Medical History Past Medical History Diagnosis Date ??? Polycystic ovaries Polycystic ovarian cysts ??? Autonomic dysfunction ??? Anxiety ??? Postconcussion syndrome Social History History Substance Use Topics ??? Smoking status: Never Smoker ??? Smokeless tobacco: Not on file ??? Alcohol Use: No Family History Family history noncontributory Medications No current facility-administered medications for this encounter. Current outpatient prescriptions:fludrocortisone (FLORINEF) 0.1 mg tablet, Take 0.1 mg by mouth oncedaily., Disp: , Rfl: ; GIANVI, 28, 3-0.02 mg per tablet, Take 3 tablets by mouth once daily., Disp: , Rfl: ; HYDROcodone-acetaminophen 5- 325 mg per tablet, Take 1 tablet by mouth every 4 (four) hours as needed for pain., Disp: 10 tablet, Rfl: 0; LINZESS 290 mcg cap capsule, Take 290 mcg by mouth once., Disp: , Rfl: meclizine (ANTIVERT) 25 mg tablet, Take 25 mg by mouth as needed., Disp: , Rfl: ; ondansetron (ZOFRAN ODT) 4 MG disintegrating tablet, Take 1 tablet (4 mg total) by mouth every 8 (eight) hours as needed for nausea (As needed for nausea)., Disp: 6 tablet, Rfl: 0; ondansetron (ZOFRAN-ODT) 4 MG disintegrating tablet, Take 4 mg by mouth., Disp: , Rfl: oxyCODONE-acetaminophen (PERCOCET) 5-325 mg per tablet, Take 1 tablet by mouth every 4 (four) hours as needed for pain. [id number], Disp: 20 tablet, Rfl: 0; predniSONE (DELTASONE) 10 MG tablet, , Disp: , Rfl: ; PRISTIQ 100 mg 24 hr tablet, Take 100 mg by mouth once daily., Disp: , Rfl: ; zonisamide (ZONEGRAN) 25 MG capsule, 100 mg., Disp: , Rfl: Review of Systems A 10 point ROS was performed. All pertinent positive and negative findings are in the HPI. All others are negative except as noted Physical Examination: BP 121/76 Pulse 92 Temp(Src) 97.8 ??F (36.6 ??C) (Oral) Resp 18 SpO2 97% LMP 06/16/2014 Constitutional: oriented to person, place, and time. appears well-developed and well-nourished. HENT: Normocephalic and atraumatic. Oropharynx is clear and moist. neck supple Eyes: Conjunctivae and EOM are normal. Pupils are equal, round, and reactive to light. Cardiovascular: Normal rate, regular rhythm, normal heart sounds and intact distal pulses. Pulmonary/Chest: Effort normal and breath sounds normal. Abdominal: Soft, Bowel sounds are normal, non-tender /IRRIGATION SERVICE TECHNICIAN: Deferred Musculoskeletal: Normal range of motion. no swelling, no tenderness Neurological: Symmetrical strength, CN intact, No cerebellar deficits Skin: Skin is warm and dry, no rashes Psychiatric: Normal mood and affect. A&Ox3 Results: No results found for this visit on 07/02/14. Pertinent labs have been reviewed Imaging: Pertinent imaging have been reviewed Procedure: Medical Decision Making: Patient presents with complaint of migraine. I have ordered parental meds to include Reglan BenadrylDecadron Toradol and IV fluid. Patient is receiving these meds as I leave my shift. As long as patient responds adequately she will be discharged to follow-up with her primary physician Diagnosis: Headache Plan: Follow-up with primary physician Jovany Romero MD 07/02/14 0645 documented in this encounter Plan of Treatment Upcoming Encounters Date Type Specialty Care Team Description 08/19/2022 Office Visit Gastroenterology Mirza Vasquez MD [address] [place] [phone] (Wo rk) documented as of this encounter Visit Diagnoses Diagnosis Headache Migraine without aura, without mention o f intractable migraine without mention of status migrainosus documented in this encounter Care Teams Pile Driving Technician Relationship Specialty Start Date End Date Alfonso Tang PCP - General Family Practice 09/04/13 08/12/21 documented as of this encounter
--- OUTSIDE RECORDS SUMMARY | 2022-06-30 09:54 | XMS_ITS | Encounter Summary ---
:1990 Author Organization [facility] Address [address] [place] [address]. 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 Patient stated that that would work and she has received her colon prep and RX. Patient had no questions. LITIES MAINTENANCE ASSISTANT Telephone Encounter - Jennifer Sauer CMA - 09/26/2014 2:57 PM CST Patient called and stating that she wasn't aware of the appointment and she needs to reschedule her colonoscopy procedure that is scheduled in the OR on 11/22/14 at 7:30am. She stated she'll be out of town and would prefer a Wednesday after the 30 of November. Message was sent to Matilde to contact patientto help reschedule her procedure. Jennifer Sauer MA Endoscopy Family Helper LITIES MAINTENANCE ASSISTANT documented in this encounter Plan of Treatment Upcoming Encounters Date Type Specialty Care Team Description 08/19/2022 Office Visit Gastroenterology Mirza Vasquez MD [address] [place] [phone] (Wo rk) documented as of this encounter Visit Diagnoses Not on filedocumented in this encounter Care Teams Actuarial Mathematician Relationship Specialty Start Date End Date Alfonso Tang PCP - General Family Practice 09/04/13 08/12/21 documented as of this encounter
--- OUTSIDE RECORDS SUMMARY | 2022-06-30 09:54 | XMS_ITS | Encounter Summary ---
:1990 Author Organization [facility] Address [address] [place] [address]. [place] [address] Care Team Providers Name Role Phone Alfonso Tang Primary Care Provider Unavailable Reason for Visit Reason Onset Date Comments Previsit 07/12/2014 EKG- dysautonomia, o rthostatic b/p, here for 6 month follow up Encounter Details Date Type Department Care Team Description 07/12/2014 PRE VISIT [facility] Marlo Madsen (EKG- Physicians Anastasia Carlos MD dysautonomia, [facility] [address] [facility] orthostatic b/p, here [address] for 6 month follow up) 4th Floor, Clinic [address] [facility] [id number] [place] [address] [place] [address] Social History Tobacco Use Types Packs/Day Years Used Date Smoking Tobacco: Never Smokeless Tobacco: Never Alcohol Use Standard Drinks/Week Comments No 0 (1 standard drink = 0.6 oz pure alcoho l) Sex Assigned at Date Recorded Female 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 The patient was previously followed at the [facility]. Her symptomatology includes nausea, abdominal pain and dizziness. She also has a history of migraines for which she is seen by neurology. She is being followed by [facility] regarding her chronic abdominal pain and is managed currently with a TENS unit. The reason for this consultation is her history of recurrent dizziness with postural change and syncope while standing. She was previously followed at the [facility] however since she is transition doing adult she is no longer able to follow with them. She recently graduated with a degree in psychology from [employer] and now is enrolled for graduate studies at the [facility]. She wishes to establish herself in our clinic and to continue following with us. She first had an onset of her symptoms at age 13. At the time her primary complaint was chronic abdominal pain. Thereafter she developed symptoms of dizziness and severe migraines. As concerns the dizziness she notes that it is typical with postural change particularly with prolonged standing. Her syncope is precipitated by prolonged standing. Only once has she experienced pre syncope while seated. Witnesses typically note that she is pale, cold, clammy prior to a syncopal episode. These episodes last no longer than a few seconds. She is not injured herself in the past. She has been conservatively managing her symptoms with compression stockings up to the thighs, threetimes the daily value of salt and 60 ounces of water daily. However she notes that this has not beensufficient. PAST MEDICAL HISTORY: Past Medical History Diagnosis Date ??? Autonomic dysfunction ??? Migraines ??? PCOS (polycystic ovarian syndrome) ??? Anesthesia complication sensitivity CURRENT MEDICATIONS: Current Outpatient Prescriptions Medication Sig Dispense Refill ??? zonisamide (ZONEGRAN) 25 MG capsule 4 CAPS a day 120 capsule 3 ??? linaclotide (LINZESS) 290 MCG capsule Take 1 capsule (290 mcg) by mouth every morning (before breakfast) 30 capsule 2 ??? diltiazem 2% in PLO cream, FV COMPOUNDED, 2% GEL To anal opening three times daily. Use a pea-sized amount. Store at room temperature. 60 g 0 ??? fludrocortisone (FLORINEF) 0.1 MG tablet Take [...] PO) Take 1 tablet by mouth daily PAST SURGICAL HISTORY: Past Surgical History Procedure Laterality Date ??? C exploratory of abdomen ALLERGIES: No Known Allergies FAMILY HISTORY: Migraines SOCIAL HISTORY: History Substance Use Topics ??? Smoking status: Never Smoker ??? Smokeless tobacco: Never Used ??? Alcohol Use: No ROS: Constitutional: No fever, chills, or sweats. Weight stable. ENT: No visual disturbance, ear ache, epistaxis, sore throat. Cardiovascular: As per HPI. Respiratory: No cough, hemoptysis. GI: No nausea, vomiting, hematemesis, melena, or hematochezia. : No hematuria. Integument: Negative. Psychiatric: Negative. Hematologic: Easy bruising, no easy bleeding. Exam: GENERAL APPEARANCE: healthy, alert and no distress HEENT: no icterus. NECK: JVP not elevated RESPIRATORY: lungs clear to auscultation - no rales, rhonchi or wheezes, no use of accessory muscles, no retractions, respirations are unlabored, normal respiratory rate CARDIOVASCULAR: regular rhythm, normal S1 with physiologic split S2, no S3 or S4 and no murmur, click or rub, precordium quiet with normal PMI. ABDOMEN: soft, non tender, without hepatosplenomegaly, no masses palpable, bowel sounds normal, aorta not enlarged by palpation, no abdominal bruits EXTREMITIES: peripheral pulses normal, no edema, no bruits Labs: CBC RESULTS: Lab Results Component Value Date WBC 4.2 10/30/2013 RBC 4.46 10/30/2013 HGB 13.5 10/30/2013 HCT 40.1 10/30/2013 MCV 90 10/30/2013 MCH 30.3 10/30/2013 MCHC 33.7 10/30/2013 RDW 12.7 10/30/2013 PLT 208 10/30/2013 BMP RESULTS: No results found for this basename: na, potassium, chloride, CO2, aniongap, glc, bun, cr, gfrestimated, gfrestblack, yaneli, INR RESULTS: No results found for this basename: inr Procedures: 2011: [facility]: Autonomic screen/Sweat test: -all testing normal 2008: [facility]: Consult: autonomic dysfunction, depression, migraines Assessment and Plan: The patient is a 24-year-old female with past medical history significant for dysautonomia. The reason for this consultation is her history of recurrent dizziness with postural change and syncope whilestanding. Based on the above history, the differential diagnosis is likely delayed orthostatic hypotension versus recurrent vasovagal syncope. In the addition to the below prescribed therapies, we will prescribe the patient fludrocortisone 0.1mg daily. We also advised the patient regarding the side effect of hypokalemia, and to maintain a diet that is rich in potassium. We discussed the following strategies to help with symptoms: 1. Try to drink 50-60 ounces of electrolyte fluids per day. Examples: Propel, Pedialyte, Nuun tablets or tomato juice. Gatorade and Powerade are higher in sugar/calories and are okay in moderation or if you are an athlete. Avoid salt tablets. 2. Take medications as prescribed. 3. Standing Training. Follow pamphlet included. Work up to maximum time gradually. You need to be consistent with these exercises. 4. Supine and isometric exercises with or without band. The band will give you more resistence as you progress. These exercises will assist in increasing your intravascular pressure. They also include swimming, rowing, recumbent bike. 5. Try to eat six small meals per day. Try to keep these meals low in carbohydrates and low in gluten. 6. Bike compression shorts- use as much as possible, especially when standing for longer periods of time. You can use bikers shorts or Spanx. 7. Abdominal binder: you may use this along with bike shorts during daytime hours if needed and alone at night. 8. During hot summer hours, stay well hydrated, try to stay in cool -air conditioned climates. Seen and discussed with Dr Tena Payne MD Maintenance Repairer January 25, 2014 I very much appreciated the opportunity to see and assess Ms Latricia Machado in the clinic today with CV Fellow Dr Payne. Latricia was here with her mother and we spent approx 60 min discussing her problems and advising her. They seemed quite pleased. I agree with the note above which summarizes my findings and current recommendations Please do not hesitate to contact my office if you have any questions or concerns. Marlo Madsen MD Cardiac Arrhythmia Service [facility] [phone] CC Patient Care Team: Alfonso Tang as PCP - General (Family Practice) URSZULA CRANE documented in this encounter Plan of Treatment Upcoming Encounters Date Type Specialty Care Team Description 08/19/2022 Office Visit Gastroenterology Mirza Vasquez MD [address] [place] [address] (Wo rk) Scheduled Orders Name Type Priority Associated Diagnoses Order S chedule EKG 12-lead, tracing only EKG Routine Syncope Ex pected: 07/12/2014 (Future) (Approximate), Expires: 11/09/2014 documented as of this encounter Visit Diagnoses Diagnosis Syncope - Primary Syncope and collapse documented in this encounter Care Teams Office Chair Assembler Relationship Specialty Start Date End Date Alfonso Tang PCP - General Family Practice 09/04/13 08/12/21 documented as of this encounter
--- OUTSIDE RECORDS SUMMARY | 2022-06-30 09:54 | XMS_ITS | Encounter Summary ---
:1990 Author Organization [facility] Address [address] [place] [address]. [place] [address] Care Team Providers Name Role Phone Alfonso Tnag Primary Care Provider Unavailable Reason for Visit Reason Onset Date Comments Call to schedule test 09/18/2014 colonoscopy [facility] Encounter Details Date Type Department Care Team Description 09/18/2014 Telephone [facility] Kleber Bradley ll to schedule test Center [facility] (colonoscopy MAC ) [facility] 1st Floor, Clinic [address] [place] [address] Social History Tobacco Use Types Packs/Day Years Used Date Smoking Tobacco: Never Smokeless Tobacco: Never Alcohol Use Standard Drinks/Week Comments No 0 (1 standard drink = 0.6 oz pure alcoho l) Sex Assigned at Date Recorded Female 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 Will mail out colon prep and RX and a map with address and instructions. Left my direct number if this should not work. KLE CHASER Telephone Encounter - Kleber Bradley MA - 09/18/2014 11:23 AM WRINKLE CHASER ----- Message from Teresa Heard RN sent at 09/18/2014 11:13 AM WRINKLE CHASER ----- Regarding: Please call to schedule colonoscopy with MAC In 2-[address] Dawson. Colon cancer Thanks! Teresa KLE CHASER documented in this encounter Plan of Treatment Upcoming Encounters Date Type Specialty Care Team Description 08/19/2022 Office Visit Gastroenterology Mirza Vasquez MD [address] [place] [id number] (Wo rk) documented as of this encounter Visit Diagnoses Not on filedocumented in this encounter Care Teams Superintendent Division Relationship Specialty Start Date End Date Alfonso Tang PCP - General Family Practice 09/04/13 08/12/21 documented as of this encounter
--- OUTSIDE RECORDS SUMMARY | 2022-06-30 09:54 | XMS_ITS | Encounter Summary ---
:1990 Author Organization [facility] Address [address] [place] [address]. [place] [address] Care Team Providers Name Role Phone Alfonso Tang Primary Care Provider Unavailable Reason for Visit Reason Comments Consult Encounter Details Date Type Department Care Team Description 09/26/2014 Care Coordination Physical Medicine and Alcira Sequeira, PT Consult Rehabilitation Clini c [address] 1[address] Floor, Clinic [address] [place] [address] [place] [address] Social History Tobacco Use Types Packs/Day Years Used Date Smoking Tobacco: Never Smokeless Tobacco: Never Alcohol Use Standard Drinks/Week Comments No 0 (1 standard drink = 0.6 oz pure alcoho l) Sex Assigned at Date Recorded Female 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 Machado a number of times, but unfortunately, she never returned my calls. As per Dr. Lange's recent visit with Ms. Machado on 09/21/2014, her headache frequency hasdecreased to approximately one migraine headache per month. In order to be eligible for Botox for management of chronic migraine headaches, her headache frequency must be 15 or more headache days per month. Should her headache frequency increase, to meet or exceed this frequency in the future, she would again be eligible for consideration of Botox. However, at this time, we will not pursue a consultation visit with Dr. Peacock due to her limited headache frequency. IMPLEMENT MECHANIC documented in this encounter Plan of Treatment Upcoming Encounters Date Type Specialty Care Team Description 08/19/2022 Office Visit Gastroenterology Mirza Vasquez MD [address] [place] [phone] (Wo rk) documented as of this encounter Visit Diagnoses Not on filedocumented in this encounter Care Teams Machine Ii Trimmer Relationship Specialty Start Date End Date Alfonso Tang PCP - General Family Practice 09/04/13 08/12/21 documented as of this encounter
--- OUTSIDE RECORDS SUMMARY | 2022-06-30 09:54 | XMS_ITS | Encounter Summary ---
:1990 Author Organization [facility] Address [address] [place] [address] Care Team Providers Name Role Phone Alfonso Tang Primary Care Provider Unavailable Reason for Visit Reason Comments RECHECK nausa and pain Encounter Details Date Type Department Care Team Description 09/18/2014 Office Visit Medicine GI - 1E Adelso Ochoa MD Family history of Ayan Riderteen [address] colon cancer (Primary Building [place], [place] Dx) 1st Floor, Clinic [id number] [place] [phone] Social History Tobacco Use Types Packs/Day Years Used Date Smoking Tobacco: Never Smokeless Tobacco: Never Alcohol Use Standard Drinks/Week Comments No 0 (1 standard drink = 0.6 oz pure alcoho l) Sex Assigned at Date Recorded Female 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 documented as of this encounter Last Filed Vital Signs Vital Sign Reading Time Taken Comments Blood Pressure 115/75 09/18/2014 10:49 AM PROCESS ENVIRONMENTAL TECHNICIAN Pulse 84 09/18/2014 10:49 AM PROCESS ENVIRONMENTAL TECHNICIAN Temperature 36.8 ??C (98.3 ??F) 09/18/2014 10:49 AM PROCESS ENVIRONMENTAL TECHNICIAN Respiratory Rate - - Oxygen Saturation 98% 09/18/2014 10:49 AM PROCESS ENVIRONMENTAL TECHNICIAN Inhaled Oxygen Concentration - - Weight 85.4 kg (188 lb 3.2 oz) 09/18/2014 10:49 AM PROCESS ENVIRONMENTAL TECHNICIAN Height - - Body Mass Index 31.32 08/08/2014 11:50 PM PROCESS ENVIRONMENTAL TECHNICIAN documented in this encounter Patient Instructions Patient InstructionsTeresa Heard RN - 09/18/2014 11:15 AM CST Endoscopy will call you to schedule the colonoscopy with monitored anesthesia care. If you do not hear from them in the next two weeks, please call [phone]. You will need a pre-op visit with your primary doctor 30 days or less prior to the procedure. For questions regarding your care Wednesday through Wednesday, contact the RN GI customer care specialist, Teresa Heard at [phone] and leave a voicemail. Your call will be returned same day, or if consultation is needed with the provider, it may be following - or you may send a [facility] message. For medication refills (prescribed by the GI clinic), contact your pharmacy. For appointment rescheduling/cancellation, contact scheduling at [phone] After hours, or if you have an immediate GI concern and cannot wait for a return call, contact the GI Fellow at [phone] and select option #4. ESS ENVIRONMENTAL TECHNICIAN documented in this encounter Progress Notes Adelso Ochoa MD - 09/18/2014 11:27 AM CST HISTORY OF PRESENT ILLNESS: Latricia Machado is a 24-year-old woman seen in followup for irritable bowel syndrome complicated by anal fissures. Linzess therapy has worked quite effectively for her. She usually has a bowel movement a day. Two times a week she will note that the bowel movement will be quite loose. With this change, the anal fissures have healed and they are no longer problematic for her. The mild lingering nausea remains unchanged. She saw genetic counseling. She is waiting to hear back about the interpretation of the pathology obtained at the time of her father's tumor. If it is consistent with Verduzco syndrome, it is her expectation that she will go forward with genetic testing. PAST MEDICAL HISTORY: The patient profile in [facility] reviewed. MEDICATIONS: The patient profile in [facility] reviewed. PHYSICAL EXAMINATION: GENERAL: Revealed the patient to be a well-groomed, alert young woman in no acute distress. VITAL SIGNS: As charted in [facility] were within normal limits. ABDOMEN: Obese, soft, nontender. Liver and spleen not increased in size. ASSESSMENT: 1. Family history of colon cancer -- we will proceed with colonoscopy with monitored anesthesia care. If her father proves to have a Verduzco family syndrome, options of having the genetic testing done for her father and then subsequent to that for Latrciia and her sister to see if they also have a Verduzco syndrome will be obtained. 2. Irritable bowel syndrome with constipation -- excellent response to Linzess therapy. 3. Focal nodular hyperplasia of the liver. PLAN: 1. Continue Linzess 290 mcg a day. 2. Return to clinic in 6 months. 3. Colonoscopy with monitored anesthesia care. 4. A message was sent to Genetics Counseling regarding their conclusion on whether her father has colon cancer pathology consistent with Verduzco family syndrome. AEDLSO OCHOA MD MT: OLIVIA Name: LATRICIA MACHADO MRN: [id number] Account: [id number] : 1990 Service Date: 09/18/2014 Document: [id number] ESS ENVIRONMENTAL TECHNICIAN documented in this encounter Nursing Notes Elke Lundberg MA - 09/18/2014 10:49 AM CST Chief Complaint Patient presents with ??? RECHECK nausa and pain Filed Vitals: 09/18/14 1049 BP: 115/75 Pulse: 84 Temp: 98.3 ??F (36.8 ??C) TempSrc: Oral Weight: 85.367 kg (188 lb 3.2 oz) SpO2: 98% Body mass index is 31.32 kg/(m^2). Elke Lundberg MA ESS ENVIRONMENTAL TECHNICIAN documented in this encounter Plan of Treatment Upcoming Encounters Date Type Specialty Care Team Description 08/19/2022 Office Visit Gastroenterology Mirza Vasquez MD [address] [place] [phone] (Wo rk) documented as of this encounter Visit Diagnoses Diagnosis Family history of colon cancer - Primary Family history of malignant neoplasm of gastrointestinal tract documented in this encounter Care Teams Imaging Clerk Relationship Specialty Start Date End Date Alfonso Tang PCP - General Family Practice 09/04/13 08/12/21 documented as of this encounter
--- OUTSIDE RECORDS SUMMARY | 2022-06-30 09:54 | XMS_ITS | Encounter Summary ---
:1990 Author Organization [facility] Address [address] [place] [address]. [place] [address] Care Team Providers Name Role Phone Alfonso Tang Primary Care Provider Unavailable Reason for Visit Reason Comments RECHECK 3 month follow-up, medicatio n check Encounter Details Date Type Department Care Team Description 09/21/2014 Office Visit [facility] Chronic m igraine [facility] without aura, with [facility] intractabl e migraine, Clinic so stated, without [address], mention of status [address] migrainosus ([place] [address] Dx) [phone] Social History Tobacco Use Types Packs/Day Years Used Date Smoking Tobacco: Never Smokeless Tobacco: Never Alcohol Use Standard Drinks/Week Comments No 0 (1 standard drink = 0.6 oz pure alcoho l) Sex Assigned at Date Recorded Female 10/31/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 documented as of this encounter Last Filed Vital Signs Vital Sign Reading Time Taken Comments Blood Pressure 100/70 09/21/2014 11:02 AM GASKET FORMER Pulse 82 09/21/2014 11:02 AM GASKET FORMER Temperature - - Respiratory Rate - - Oxygen Saturation - - Inhaled Oxygen Concentration - - Weight 83.9 kg (185 lb) 09/21/2014 11:02 AM GASKET FORMER Height 165.1 cm (5' 5) 09/21/2014 11:02 AM GASKET FORMER Body Mass Index 30.79 09/21/2014 11:02 AM GASKET FORMER documented in this encounter Progress Notes Min Lange MD - 09/21/2014 11:23 AM CST September 21, 2014 Alfonso Tang MD [address], [address] [place], [place] [address] RE:Latricia Machado :1990 Dear Alfonso: I saw Latricia Machado back. She is a patient I follow with intractable migraine. She also has a history of recurrent syncope and dysautonomia. In June she had another bad migraine. She tried injectable Imitrex and it did not help. She has failed multiple oral triptans in the past. At that time I did recommend that she increase her Zonegrandose to 125 mg, but she did not. She has also been reluctant to see Dr. Peacock for Botox injections. Since then she tells me her headaches have decreased in their frequency to about once a month. She is following a food list very closely. She is seeing a chiropractor and also getting massage. Still her headaches are severe and are not relieved with [id number] analgesics. She has had to go to the emergency room and she has been utilizing Percocet that she had a prescription from in the emergency room. Currently, she is taking Zonegran 100 mg a day. She had a normal CBC and basic metabolic panel in June. Other medications are linaclotide, Florinef, Zofran p.r.n., Pristiq, Antivert p.r.n. and LIOR. In the past, she has been tried on gabapentin, Topamax and Depakote for migraine control and these drugs have been ineffective. She has failed multiple triptans for acute management including Imitrex injection. Examination reveals her heart rate is 82. Blood pressure 100/70. Funduscopic examination is unremarkable. Cranial nerves II-XII are intact. Motor examination revealsnormal strength. Cerebellar function is normal. Gait is normal. Reflexes are symmetric. IMPRESSION: Intractable migraine. PLAN: She is comfortable with how she is doing currently. Her headache frequency has definitely decreased. I suggested pushing the Zonegran up to 125 mg a day to see if she can achieve better control and shewill do so. I did discuss Botox treatment if her headache frequency becomes problematic again and she would consider that. She will let me know about this. I am going to see her back in 4 months. Sincerely, MD MIN Le MD MT: [place] Name: LATRICIA MACHADO MRN: [id number] Account: [id number] : 1990 Service Date: 09/21/2014 Document: [id number] ET FORMER documented in this encounter Nursing Notes Courtney Garcia MA - 09/21/2014 11:05 AM CST Chief Complaint Patient presents with ??? RECHECK 3 month follow-up, medication check Courtney Garcia MA ET FORMER documented in this encounter Plan of Treatment Upcoming Encounters Date Type Specialty Care Team Description 08/19/2022 Office Visit Gastroenterology Mirza Vasquez MD [address] [place] [id number] (Wo rk) documented as of this encounter Visit Diagnoses Diagnosis Chronic migraine without aura, with intr actable migraine, so stated, without mention of status migrainosus - Primary documented in this encounter Care Teams Senior Bi Architect Relationship Specialty Start Date End Date Alfonso Tang PCP - General Family Practice 09/04/13 08/12/21 documented as of this encounter
--- OUTSIDE RECORDS SUMMARY | 2022-06-30 09:54 | XMS_ITS | Encounter Summary ---
:1990 Author Organization [facility] Address [address] [place] [address] Care Team Providers Name Role Phone Alfonso Tang Primary Care Provider Unavailable Reason for Visit Reason Onset Date Comments Refill Request 10/09/2014 Encounter Details Date Type Department Care Team Description 10/09/2014 Refill Medicine GI - 1E Teresa Heard RN Refill Request [facility] Building 1st Floor, Clinic [address] [place] [phone] Social History Tobacco Use Types Packs/Day Years Used Date Smoking Tobacco: Never Smokeless Tobacco: Never Alcohol Use Standard Drinks/Week Comments No 0 (1 standard drink = 0.6 oz pure alcoho l) Sex Assigned at Date Recorded 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
--- OUTSIDE RECORDS SUMMARY | 2022-06-30 09:54 | XMS_ITS | Encounter Summary ---
:1990 Author Organization [facility] Address [address] [place] [address] Care Team Providers Name Role Phone Alfonso Tang Primary Care Provider Unavailable Dayanara Bee MD Unavailable Min Lange MD Unavailable Unavailable Marlo Madsen MD Unavailable Mel Buckley RN Unavailable Encounter Details Date Type Department Care Team Description 09/26/2014 [facility] Provider, [facility] Information Management [address] [facility] [address] [place] [address] Social History Tobacco Use Types Packs/Day Years Used Date Smoking Tobacco: Never Smokeless Tobacco: Never Alcohol Use Standard Drinks/Week Comments No 0 (1 standard drink = 0.6 oz pure alcoho l) Sex Assigned at Date Recorded 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 Plan of Treatment Upcoming Encounters Date Type Specialty Care Team Description 08/19/2022 Office Visit Gastroenterology Mirza Vasquez MD [address] [place] [address] (Wo rk) documented as of this encounter Visit Diagnoses Not on filedocumented in this encounter Care Teams Fibre Optic Cable Splicer Relationship Specialty Start Date End Date Alfonso Tang PCP - General Family Practice 09/04/13 08/12/21 Dayanara Bee MD MD Pediatrics 12/26/14 [address] [facility] [address] [place], [place] [phone] Min Lange MD MD Neurology 03/30/16 Marlo Madsen MD Cardiology 10/27/16 [place] [address] [facility] [address] [place], [place] [phone] Mel Buckley, RN Nurse Coordinator Physical Medicine and 12/02/16 Rehabilitation documented as of this encounter
--- OUTSIDE RECORDS SUMMARY | 2022-06-30 09:54 | XMS_ITS | Encounter Summary ---
:1990 Author Organization [facility] Address [address] [place] [address]. [place] [address] Care Team Providers Name Role Phone Alfonso Tang Primary Care Provider Unavailable Reason for Visit Reason Comments Heart Problem here for 6 month follow up Encounter Details Date Type Department Care Team Description 07/12/2014 [facility] franc[facility] Dx[facility] MD Terr[place] Chronic migraine without aura, with intr actable migraine, so stated, without mention of status migrainosus Heart [address] [place] [facility] [address] [place], [place] 4th Floor, Clinic 4B [address] [facility] [phone] [place] [address] (Work) [place] [address] Social History Tobacco Use Types Packs/Day Years Used Date Smoking Tobacco: Never Smokeless Tobacco: Never Alcohol Use Standard Drinks/Week Comments No 0 (1 standard drink = 0.6 oz pure alcoho l) Sex Assigned at Date Recorded 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 of 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 encounter Last Filed Vital Signs Vital Sign Reading Time Taken Comments Blood Pressure 119/81 07/12/2014 2:26 PM standing 5 mi nutes CDT (from Extended Vitals) Pulse 98 07/12/2014 2:26 PM (from Extend ed CDT Vitals) Temperature - - Respiratory Rate - - Oxygen Saturation 99% 07/12/2014 2:06 PM CDT Inhaled Oxygen - - Concentration Weight 83.3 kg (183 lb 11.2 07/12/2014 2:06 PM oz) CDT Height 165.1 cm (5' 5) 07/12/2014 2:06 PM CDT Body Mass Index 30.57 07/12/2014 2:06 PM CDT documented in this encounter Patient Instructions Patient InstructionsMandy Rajput RN - 07/12/2014 2:37 PM CDT You will be scheduled for a follow up visit If you have any questions regarding to your visit please contact your care team: Cardiology Telephone Number Mandy Rajput RN After hours: [phone] For scheduling appts or procedures: Lauryn Bagely or For the Device Clinic (Pacemakers and ICD's) RN's : Deana Murphy During business hours: [phone] After business hours: [phone]- select option 4 and ask for job code [phone]. You can also contact us using My Chart. If you need assistance in setting this up, please contact our office or ask at your follow up visit. If you need a medication refill please contact your pharmacy. Please allow 3 business days for your refill to be completed. As always, Thank you for trusting us with your health care needs! documented in this encounter Progress Notes Marlo Madsen MD - 07/12/2014 2:28 PM CDT HPI: The patient is a 24-year-old female with past medical history significant for dysautonomia. During her last visit she was initiated on Florinef, 0.1mg daily. The patient comes to see us in follow-up after six months. She notes that in the last six months hashad no symptoms of dizziness and she has only had one episode in the last six months of loss of consciousness but attributes that to significant illness during that day. However she still has other issues that remain. 1. persistent daytime fatigue even after 12 hours of sleep. She feels that if she wakes up before 10AM she is persistently fatigued for the day. however if she wakes up later she does okay. 2. persistent feeling of being warm. She notes that she is persistently warm even during cold fall days. 3. intractable migraines that have not changed in frequency but have increased in duration requiringvisits to the emergency room PAST MEDICAL HISTORY: Past Medical History Diagnosis [...] Take 1 tablet by mouth daily ??? diltiazem 2% in PLO cream, FV COMPOUNDED, 2% GEL To anal opening three times daily. Use a pea-sized amount. Store at room temperature. 60 g 0 PAST SURGICAL HISTORY: Past Surgical History Procedure [...] hematemesis, melena, or hematochezia. : No hematuria. Exam: BP 108/71 Pulse 87 Ht 1.651 m (5' 5) Wt 83.326 kg (183 lb 11.2 oz) BMI 30.57 kg/m2 SpO2 99% GENERAL APPEARANCE: healthy, alert and no distress [...] found for this basename: inr Procedures: 2011: [facility]: Autonomic screen/Sweat test: -all testing normal 2008: [facility]: Consult: autonomic dysfunction, depression, migraines Assessment and Plan: The patient is a 24-year-old female with past medical history significant for dysautonomia. The reason for this consultation is her history of recurrent dizziness with postural change and syncope whilestanding. Based on review of the patient's history, recent work up and initiation of florinef: her symptoms listed above do not appear to be associated with adverse effects of florinef. Her migraines having managed by her neurologist. Her recent TSH was normal. Therefore it is possiblethat the symptoms of persistent warmth and fatigue maybe associated with the dysautonomia. - Given the significant improvement in dizziness and increased functional capacity on florinef we feel that they should be continued. - She will need to continue improving her conditioning to manage fatigue. I very much appreciated the opportunity to see and assess Latricia Machado in the clinic with CV Fellow Dr Payne. I agree with the note above which summarizes my findings and current recommendations. . Please do not hesitate to contact my office if you have any questions or concerns. Marlo Madsen MD Cardiac Arrhythmia Service [facility] [phone] Jose Payne MD Search Consultant July 12, 2014 CC Patient Care Team: Alfonso Tang as PCP - General (Family Practice) URSZULA CRANE documented in this encounter Nursing Notes Mandy Rajput, RN - 07/12/2014 2:36 PM CDT Return Appointment: Patient given instructions regarding scheduling next clinic visit. Patient demonstrated understanding of this information and agreed to call with further questions or concerns. documented in this encounter Plan of Treatment Upcoming Encounters Date Type Specialty Care Team Description 08/19/2022 Office Visit Gastroenterology Mirza Vasquez MD [address] [place] [address] (Wo rk) documented as of this encounter Visit Diagnoses Diagnosis Syncope - Primary Syncope and collapse Chronic migraine without aura, with intr actable migraine, so stated, without mention of status migrainosus documented in this encounter Care Teams Ore Fielder Relationship Specialty Start Date End Date Alfonso Tang PCP - General Family Practice 09/04/13 08/12/21 documented as of this encounter
--- OUTSIDE RECORDS SUMMARY | 2022-06-30 09:54 | XMS_ITS | Encounter Summary ---
:1990 Author Organization [facility] Address [address] [place] [address] Care Team Providers Name Role Phone Alfonso Tang Primary Care Provider Unavailable Reason for Visit Reason Comments Vomiting Headache Encounter Details Date Type Department Care Team Description 08/08/2014 - Hospital Encounter [facility] Provider, Zo l Migraine 08/09/2014 DEPARTMENT [address] [phone] Social History Tobacco Use Types Packs/Day Years Used Date Smoking Tobacco: Never Smokeless Tobacco: Never Alcohol Use Standard Drinks/Week Comments No 0 (1 standard drink = 0.6 oz pure alcoho l) Sex Assigned at Date Recorded 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 documented as of this encounter Last Filed Vital Signs Vital Sign Reading Time Taken Comments Blood Pressure - - Pulse - - Temperature - - Respiratory Rate - - Oxygen Saturation - - Inhaled Oxygen Concentration - - Weight 81.6 kg (180 lb) 08/08/2014 11:50 PM SCHOOL PSYCHOLOGY PROFESSOR Height 165.1 cm (5' 5) 08/08/2014 11:50 PM SCHOOL PSYCHOLOGY PROFESSOR Body Mass Index 29.95 08/08/2014 11:50 PM 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 HPI Latricia Machado is a 24 y.o. female who presents to the Emergency Department for evaluation of headache. The patient developed a headache 3 days ago. She describes a continual, worsening, 10/10, throbbing headache. The patient reports associated nausea without vomiting and photophobia. To alleviate her symptoms she has been taking Zofran and Percocet without relief. The patient reports her typical migraine headache pattern is similar to this current headache. Denies fever. Denies focal weakness. Denies visual changes. Denies recent head trauma or injury. The creation of this record is based on the scribe???s observations of the work being performed by Dr. Oumar Bradley MD and the provider???s statements to her. It was created on his behalf by Savana Christopher, a trained medical voucher clerk. This document has been checked and approved by the attending provider. The creation of this record is based on the scribe???s observations of the work being performed by Dr. Arnold Rivas and the provider???s statements to them. It was created on her behalf by Savana Christopher a trained medical voucher clerk. This document has been checked and approved [...] nausea (As needed for nausea). 6 tablet 0 ??? ondansetron (ZOFRAN-ODT) 4 MG disintegrating tablet Oral Take 4 mg by mouth. ??? oxyCODONE-acetaminophen (PERCOCET) 5-325 mg per tablet Oral Take 1 tablet by mouth every 4 (four) hours as needed for pain. [id number] 20 tablet 0 ??? predniSONE (DELTASONE) 10 [...] REVIEW OF SYSTEMS Review of Systems Constitutional: Positive for fatigue. Negative for fever and chills. Positive for generalized weakness. Eyes: Positive for photophobia. Respiratory: Negative for cough and shortness of breath. Cardiovascular: Negative for chest pain and leg swelling. Gastrointestinal: Positive for nausea and vomiting. Negative for abdominal pain and diarrhea. Genitourinary: Negative for dysuria and frequency. Skin: Negative for rash. Neurological: Positive for headaches. Negative for dizziness. All other systems reviewed and are negative. PHYSICAL EXAM VITAL SIGNS: BP 114/66 Pulse 78 Temp(Src) 98.2 ??F (36.8 ??C) (Oral) Resp 18 Ht 5' 5 (1.651m) Wt 180 lb (81.647 kg) BMI 29.95 kg/m2 SpO2 99% Physical Exam Nursing note and vitals reviewed. Constitutional: She is oriented to person, place, and time. She appears well- developed and well-nourished. No distress. HENT: Head: Normocephalic and atraumatic. Mouth/Throat: Oropharynx is clear and moist. Eyes: EOM are normal. Pupils are equal, [...] person, place, and time. She has normal strength. No cranial nerve deficit or sensory deficit. Skin: Skin is warm and dry. No rash noted. Psychiatric: She has a normal mood and affect. ED COURSE and MDM This patient presents to the emergency Department with complaints of a migraine headache. She statesthat she's had this headache but the past 3 days. It is identical in character to her normal migraine headaches. She states that she has been taking Percocet and Zofran for but has not had any relief. Patient denies any fevers, neck stiffness or rashes. She is afebrile in the emergency department. Patient was given Reglan, Benadryl, and Dilaudid for analgesia. She is also given a dose of Toradol. After she received these medications, the patient stated she felt better and asked to be discharged. Patient was given a prescription for Fioricet as she has not been given this medication before for her headaches. She is instructed to return if her headaches worsens or develops any unusual features. Both she and her father I discussed her understanding and agreement with this care plan. She is discharged in stable condition. FINAL IMPRESSION 1. Migraine This note is an accurate record of both my words and actions as documented by the scribe. Arnold Rivas MD 08/09/14 0235 documented in this encounter Plan of Treatment Upcoming Encounters Date Type Specialty Care Team Description 08/19/2022 Office Visit Gastroenterology Mirza Vasquez MD [address] [place] [id number] (Wo rk) documented as of this encounter Visit Diagnoses Diagnosis Migraine Migraine, unspecified, without mention o f intractable migraine without mention of status migrainosus documented in this encounter Care Teams Embossing Clerk Relationship Specialty Start Date End Date Alfonso Tang PCP - General Family Practice 09/04/13 08/12/21 documented as of this encounter
--- OUTSIDE RECORDS SUMMARY | 2022-06-30 09:54 | XMS_ITS | Encounter Summary ---
:1990 Author Organization [facility] Address [address] [place] [address]. [place] [address] Care Team Providers Name Role Phone Alfonso Tang Primary Care Provider Unavailable Reason for Referral Consultation - Closed Specialty Diagnoses / Procedures Referred By Contact Refer red To Contact Diagnoses Chronic migraine without aura, with intractable migraine, so stated, without mention of status migrainosus Min Lange MD [address] [facility] [address] [place] [address] Referral ID Status Reason Start Date Expiration Date Visits Requ ested Visits Authorized [id number] Closed 07/02/2014 12/29/2014 1 1 Encounter Details Date Type Department Care Team Description 07/02/2014 Orders Only [facility] Min Lange, Chronic migraine [address] 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 encounter Plan of Treatment Upcoming Encounters Date Type Specialty Care Team Description 08/19/2022 Office Visit Gastroenterology Mirza Vasquez MD [address] [place] [address] (Wo rk) Scheduled Referrals Name Type Priority Associated Diagnoses Order S chedule PHYSIATRY REFERRAL Referral Routine Chronic Migraine Witho ut Ordered: 07/02/2014 Aura, With Intractable Migraine, So Stated, Without Mention Of Status Migrainosus documented as of this encounter Visit Diagnoses Diagnosis Chronic migraine without aura, with intr actable migraine, so stated, without mention of status migrainosus - Primary documented in this encounter Care Teams Trauma Nurse Relationship Specialty Start Date End Date Alfonso Tang PCP - General Family Practice 09/04/13 08/12/21 documented as of this encounter
--- OUTSIDE RECORDS SUMMARY | 2022-06-30 09:54 | XMS_ITS | Encounter Summary ---
:1990 Author Organization [facility] Address [address] [place] [address]. [place] [address] Care Team Providers Name Role Phone Alfonso Tang Primary Care Provider Unavailable Reason for Visit Reason Comments Consult Called to coordinate schedul ing for initial consultation with Dr. Peacock. Encounter Details Date Type Department Care Team Description 08/08/2014 Care Coordination Physical Medicine and Alcira Sequeira Consult (Called to Rehabilitation Clini c L, PT coordinate [facility] [address] [facility] [address] 1st Floor, Clinic [address] [place], [place] consultation with [facility] [address] 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 Juan David Peacock. Latricianancy Machado was referred to Dr. Peacock by Dr. Min Lange, Neurology, [facility], for evaluation for possible use of the botulinum toxins for management of chronic migraine headache. I was unable to reach her and left voice-mail on her phone with the reason for my call and my contact information, as well as the contact information for my colleague, Margarita Chowdhury RN. I requested a call back to coordinate scheduling this appointment and to discuss any concerns or questions she may have regarding this referral. Currently awaiting call back. ICAL DAMAGE APPRAISER documented in this encounter Plan of Treatment Upcoming Encounters Date Type Specialty Care Team Description 08/19/2022 Office Visit Gastroenterology Mirza Vasquez MD [address] [place] [id number] (Wo rk) documented as of this encounter Visit Diagnoses Not on filedocumented in this encounter Care Teams Reservationist Relationship Specialty Start Date End Date Alfonso Tang PCP - General Family Practice 09/04/13 08/12/21 documented as of this encounter
--- OUTSIDE RECORDS SUMMARY | 2022-06-30 09:54 | XMS_ITS | Encounter Summary ---
:1990 Author Organization [facility] Address [address] [place] [address]. 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
--- OUTSIDE RECORDS SUMMARY | 2022-06-30 09:55 | XMS_ITS | Encounter Summary ---
:1990 Author Organization [facility] Address [address] [place] [address] Care Team Providers Name Role Phone Alfonso Tang Primary Care Provider Unavailable Reason for Visit Reason Comments Headache Encounter Details Date Type Department Care Team Description 06/20/2014 Hospital Encounter [facility] Krysta Castillo MD [address] [place], [place] [id number] Migraine DEPARTMENT Chan Richards MD [address] [place] [address] [phone] Social History Tobacco Use Types Packs/Day Years Used Date Smoking Tobacco: Never Smokeless Tobacco: Never Alcohol Use Standard Drinks/Week Comments No 0 (1 standard drink = 0.6 oz pure alcoho l) Sex Assigned at Date Recorded 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 GELIndications: Anal Use a pea-sized fissure amount. Store at room temperature. Drospirenone-Ethinyl Take 1 tablet by 0 10/16/2015 Estradiol (LIOR PO) mouth daily eletriptan (RELPAX) 40 MG Take 1 tablet (40 12 tablet 1 11/201306/28/2014 tabletIndications: Chronic mg) by mouth at migraine without aura, onset of headache with intractable migraine, for migraine (May so stated, without mention repeat in 2 hours of status migrainosus if needed) fludrocortisone (FLORINEF) Take 1 tablet (0.1 90 tablet 3 0 01/25/2014 01/08/2015 0.1 MG tabletIndications: mg) by mouth daily Autonomic dysfunction linaclotide (LINZESS) 290 Take 1 capsule 30 capsule 2 201306/22/2014 MCG capsuleIndications: (290 mcg) by mouth Constipation, Abdominal every morning pain (before breakfast) meclizine (ANTIVERT) 25 MG Take 1 tablet by 0 04/15/2016 tablet mouth 3 times daily as needed Multiple Vitamins-Minerals Take 1 tablet by 0 10/31/2021 (WOMENS MULTIVITAMIN PLUS mouth every PO) morning ondansetron (ZOFRAN-ODT) 4 Take 1 tablet by 0 04/15/2016 MG disintegrating tablet mouth as needed zonisamide (ZONEGRAN) 25 One at night for 90 capsule 1 05/2906/28/2014 MG capsuleIndications: one week, then 2 Chronic migraine without at night for one aura, with intractable week, then 3 at migraine, so stated, night without mention of status migrainosus documented as of this encounter ED Notes Aline Castillo - 06/20/2014 3:12 PM CDT eMERGENCY dEPARTMENT eNCOUnter CHIEF COMPLAINT Chief Complaint Patient presents with ??? Headache HPI Latricia Machado is a 24 y.o. female who presents to this Emergency Department for the evaluation of headache. She experiences constant, sharp, severe, worsening headache for the past 4-5 days. Initially, headache was localized in the right region of the head but now has radiated to the left. Symptoms including photosensitivity, loss of apptite, less fluid intake, as well as generalized weakness have gotten worse which prompted her to come to this ED for evaluation. The patient has a history of migraine and these symptoms are consistent with her experiences of migraines. She has been taking medication beta angella zonegram without relief. No alleviating factors noted. The patient reports no otheracute symptom and is otherwise healthy. She is scheduled to meet with her neurologist next week for follow up on new medication for migraines. This document has been checked and approved by the attending provider.The creation of this record is based on the scribe???s observations of the work being performed by Aline Castillo and the provider???s statements to them. It was created on her behalf by Camilla Betancur, a trained biomedical repair technician. This document has been checked and approved by the attending provider. PAST MEDICAL HISTORY Past Medical History Diagnosis Date ??? Polycystic ovaries Polycystic ovarian cysts SURGICAL HISTORY No past surgical history on file. CURRENT MEDICATIONS No current outpatient prescriptions on file. ALLERGIES No Known Allergies FAMILY HISTORY No family history on file. SOCIAL HISTORY History Social History ??? Marital Status: Single Spouse Name: N/A Number of Children: N/A ??? Years of Education: N/A Social History Main Topics ??? Smoking status: Not on file ??? Smokeless tobacco: Not on file ??? Alcohol Use: Not on file ??? Drug Use: Not on file ??? Sexually Active: Not on file Other Topics Concern ??? Not on file Social History Narrative ??? No narrative on file REVIEW OF SYSTEMS A 10 point ROS was performed and all pertinent positive and negative findings are in the HPI. All others negative. PHYSICAL EXAM VITAL SIGNS: BP 140/88 Pulse 96 Temp(Src) 97.6 ??F (36.4 ??C) (Tympanic) Resp 16 Ht 5' 5 (1.651 m) Wt 180 lb (81.647 kg) BMI 29.95 kg/m2 SpO2 100% GENERAL: Awake, Alert, and Orientated x3, No acute distress HEENT: Normal cephalic, Atraumatic NECK: Supple, No obvious swelling or abnormality, No stridor PULMONARY: Symmetrical breath sounds without distress, Lungs clear to auscultation bilaterally. CARDIO: Regular rate and rhythm, Distal pulses present and normal ABDOMINAL: Soft, Nondistended, Nontender EXTREMITIES: Moves all extremities spontaneously, warm, no edema NEURO: AAOx3, Cranial nerves grossly intact PSYCH: Normal mood and affect SKIN: No rashes ED COURSE & MEDICAL DECISION MAKING Case discussed with the patient-3:13 PM 24 year old female with a history of migraines who presents with migraine headache. Has tried medication at home without relief. Sees Neurology and scheduled to see them tomorrow. Will treat symptoms and reevaluate. Patient had some improvement with initial management. Given 2 doses of morphine with headache significantly improved. Will dc home. Patient agrees with the plan. FINAL IMPRESSION Migraine Aline Castillo MD 06/20/14 [id number] Chan Richards - 06/20/2014 2:56 PM CDT Patient briefly evaluated for headache. She has a history of migraine headaches with similar features. Her vital signs are normal. She appears nontoxic. Treatment initiated. Evening provider will care for patient. Chan Richards MD 06/20/14 1456 documented in this encounter Plan of Treatment Upcoming Encounters Date Type Specialty Care Team Description 08/19/2022 Office Visit Gastroenterology Mirza Vasquez MD [address] [place] [phone] (Wo rk) documented as of this encounter Visit Diagnoses Diagnosis Migraine Migraine, unspecified, without mention o f intractable migraine without mention of status migrainosus documented in this encounter Care Teams Tomato Grader Relationship Specialty Start Date End Date Alfonso Tang PCP - General Family Practice 09/04/13 08/12/21 documented as of this encounter
--- OUTSIDE RECORDS SUMMARY | 2022-06-30 09:55 | XMS_ITS | Encounter Summary ---
:1990 Author Organization [facility] Address [address] [place] [address]. [place] [address] Care Team Providers Name Role Phone Alfonso Tang Primary Care Provider Unavailable Dayanara Bee MD Unavailable Min Lange MD Unavailable Unavailable Marlo Madsen MD Unavailable Mel Buckley RN Unavailable Encounter Details Date Type Department Care Team Description 03/15/2014 Ambulatory - [facility] Alfonso Tang RETIRED Chronic migraine [facility] Provider, Historical without aura, with [address] [facility] intractable [address] migraine, so [place], [place] 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 encounter Plan of Treatment Upcoming Encounters Date Type Specialty Care Team Description 08/19/2022 Office Visit Gastroenterology Mirza Vasquez MD [address] [place] [address] (Wo rk) documented as of this encounter Visit Diagnoses Diagnosis Chronic migraine without aura, with intr actable migraine, so stated, without mention of status migrainosus documented in this encounter Care Teams Family Practice Physician Relationship Specialty Start Date End Date Alfonso Tang PCP - General Family Practice 09/04/13 08/12/21 Dayanara Bee MD MD Pediatrics 12/26/[address] [place] [address] [address] [place] [address] Min Lange MD MD Neurology 03/30/16 Marlo Madsen MD Cardiology 10/27/[address] [place] [address] Mel Buckley, DIAZ Nurse Coordinator Physical Medicine and 12/02/16 Rehabilitation documented as of this encounter
--- OUTSIDE RECORDS SUMMARY | 2022-06-30 09:55 | XMS_ITS | Encounter Summary ---
:1990 Author Organization [facility] Address [address] [place] [address]. [place] [address] Care Team Providers Name Role Phone Alfonso Tang Primary Care Provider Unavailable Reason for Visit Reason Comments Heart Problem ortho b/p, EKG- dysautonomia /tachy, evaluated at [facility] Encounter Details Date Type Department Care Team Description 01/25/2014 [facility] sfunction (Primary Dx); [facility] MD Terrance Autonomic nervous system disorder; Heart [address] Syncope Botello Wangensteen [facility] [address] [place], [place] 4th Floor, Clinic 4B [address] [facility] [phone] [place] [address] (Work) [place] [address] Social History Tobacco Use Types Packs/Day Years Used Date Smoking Tobacco: Never Smokeless Tobacco: Never Alcohol Use Standard Drinks/Week Comments No 0 (1 standard drink = 0.6 oz pure alcoho l) Sex Assigned at Date Recorded Female 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 Strategies to help with symptoms: 1. Try to [...] to stay in cool -air conditioned climates. If you have any questions regarding to your visit please contact your care team: Cardiology Telephone Number Mandy Rajput RN After hours: [phone] For scheduling appts or procedures: Lauryn Gabrielmiguelkatey or For the Device Clinic (Pacemakers and ICD's) RN's : Deana Murphy During business hours: [phone] After business hours: [phone]- select option 4 and ask for job [...] trusting us with your health care needs! January 2014Wednesday 1 2 3 4 5 6 7 8 9 10 11 12 13 14 15 P NEW ARRHYTHMIA 3:00 PM (40 min.) Marlo Madsen MD [facility] Heart 16 17 18 19 20 21 22 23 24 Happy Birthday! 25 26 27 28 29 30 FebruaryWednesday 1 2 3 4 5 6 7 8 9 10 11 12 13 14 15 16 17 18 19 20 21 22 23 24 25 26 27 28 29 30 documented in this encounter Progress Notes Marlo Madsen MD - 01/25/2014 3:32 PM CDT HPI: The patient is a 23-year-old female with past medical history significant for dysautonomia. The patient was previously followed at the [facility]. Her symptomatology includes nausea, abdominal [...] standing. She was previously followed at the [facility] however since she is transition doing adult she is no longer able to follow with them. She recently graduated with a degree in psychology from [employer] and now is enrolled for graduate studies at the [facility]. She wishes to establish herself in our [...] this has not beensufficient. PAST MEDICAL HISTORY: History reviewed. No pertinent past medical history. CURRENT MEDICATIONS: Current Outpatient Prescriptions Medication Sig Dispense Refill ??? psyllium (METAMUCIL) 58.6 % POWD Take by mouth daily ??? polyethylene glycol (MIRALAX) powder 1 capful (17 g) in 8 oz of liquid 119 g 1 ??? ondansetron (ZOFRAN-ODT) 4 MG disintegrating tablet [...] tablet by mouth daily PAST SURGICAL HISTORY: History reviewed. No pertinent past surgical history. ALLERGIES: No Known Allergies FAMILY HISTORY: Migraines [...] Hematologic: Easy bruising, no easy bleeding. Exam: BP 115/82 Pulse 93 Ht 1.676 m (5' 6) Wt 77.293 kg (170 lb 6.4 oz) BMI 27.52 kg/m2 SpO2 100% Orthostatic Vitals BP Pulse Position Site Cuff Size Time Date 97 Sitting Right Arm Regular 03:33 PM 01/25/2014 112/81 98 Standing Right Arm Regular 03:33 PM 01/25/2014 117/80 102 Standing Right Arm Regular 03:33 PM 01/25/2014 116/74 85 Supine Right Arm Regular 03:32 PM 01/25/2014 No repeat blood pressure data filed. No peak flow data filed. No pain information filed. GENERAL APPEARANCE: healthy, alert and no distress [...] found for this basename: inr Procedures: 2011: [facility]: Autonomic screen/Sweat test: -all testing normal 2008: [facility]: Consult: autonomic dysfunction, depression, migraines Assessment and Plan: The patient is a 23-year-old female with [...] and discussed with Dr Tena Payne MD Credit Reference Clerk January 25, 2014 I very much appreciated [...] concerns. Marlo Madsen MD Cardiac Arrhythmia Service [facility] [phone] CC Patient Care Team: Alfonso Tang as PCP - General (Family Practice) URSZULA CRANE documented in this encounter Nursing Notes Angela Hunt RN - 01/25/2014 5:20 PM CDT New Medication: Patient was educated regarding newly prescribed medication, including discussion of the indication, administration, side effects, and when to report to MD weigh tank operator. Patient demonstrated understanding of this information and agreed to call with further questions or concerns. Return Appointment: Patient given instructions regarding scheduling next clinic visit. Patient demonstrated understanding of this information and agreed to call with further questions or concerns. Patient stated she understood all health information given and agreed to call with further questionsor concerns: Strategies to help with symptoms: 1. Try to [...] to stay in cool -air conditioned climates. Matt Sands CMA - 01/25/2014 3:31 PM CDT Chief Complaint Patient presents with ??? Heart Problem ortho b/p, EKG- dysautonomia/tachy, evaluated at [facility] MATT SANDS CMA documented in this encounter Miscellaneous Notes Addendum Note - Matt Sands CMA - 01/26/2014 9:16 AM CDT Addended by: MATT SANDS on: 01/26/2014 09:16 AM Modules accepted: Orders documented in this encounter Plan of Treatment Upcoming Encounters Date Type Specialty Care Team Description 08/19/2022 Office Visit Gastroenterology Mirza Vasquez MD [address] [place] [id number] (Wo rk) documented as of this encounter Visit Diagnoses Diagnosis Autonomic dysfunction - Primary Unspecified disorder of autonomic nervou s system Autonomic nervous system disorder Unspecified disorder of autonomic nervou s system Syncope Syncope and collapse documented in this encounter Care Teams Pretzel Packer Relationship Specialty Start Date End Date Alfonso Tang PCP - General Family Practice 09/04/13 08/12/21 documented as of this encounter
--- OUTSIDE RECORDS SUMMARY | 2022-06-30 09:55 | XMS_ITS | Encounter Summary ---
:1990 Author Organization [facility] Address [address] [place] [address]. [place] [address] Care Team Providers Name Role Phone Alfonso Tang Primary Care Provider Unavailable Encounter Details Date Type Department Care Team Description 03/30/2014 Oncology Visit [facility] ONC High Risk Felicitas Patel FHx : breast cancer (Primary Dx); Management R F GC FHx: colon cancer [address] [facility] [address] 1st Floor [facility] [address] [place] [phone] Social History Tobacco Use Types Packs/Day Years Used Date Smoking Tobacco: Never Smokeless Tobacco: Never Alcohol Use Standard Drinks/Week Comments No 0 (1 standard drink = 0.6 oz pure alcoho l) Sex Assigned at Date Recorded 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 Personal History: Latricia is a 24 year old woman who has not had cancer. She has a diagnosis of PCOS and autonomic dysfunction. Features of her autonomic dysfunction include: fainting, abdominal pain, nausea, dizziness, and sweating. She is treated with anti-nausea and blood pressure medication. 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 Latricia had her first period at 15 that was induced with Provera. She has been on Daylin since age 16. She had a normal pap smear in January 2013. She performs self breast exams and has clinical breast exams as well. She had breast reduction surgery in August of 2012. She reports having a normal colonoscopy in 2004 and a normal upper endoscopy in 2010. Sheis a non-smoker and reports no other concerning exposures. Family History: (Please see scanned pedigree for detailed family history information) ?? Latricia's father is 55. He was diagnosed with colon cancer at 51 which recurred at 52. He was treated with surgery and has not had genetic testing. ?? Latricia's paternal grandmother is 77 but had breast cancer diagnosed at 68. Her ovaries are intact. ?? Latricia's paternal great grandmother of metastatic cancer at 85 but the primary cancer is unknown. ?? All of Latricia's paternal aunts have had benign breast tumors, per her report. ?? Latricia's mom is 56 years old and also has autonomic dysfunction with very difficult pregnancies requiring hospitalization and tube feeding. She has arthritis and had a SUSAN/USO at 34 due to an ovariantumor. ?? Latricia's maternal aunt had breast cancer at 42 and is now 54. She has not had any genetic testing. ?? Latricia's maternal great aunt had uterine cancer diagnosed at 70 and passed at 93. ?? Latricia's only sister is 28 and also has autonomic dysfunction with migraines. Her only brother at age 7 weeks following an extremely difficult . ?? Her maternal ethnicity is Malay/[place]. Her paternal ethnicity is Malay. Ashkenazi Jew ancestry was denied. Discussion: ?? Based upon her family history of colon cancer in her father, we dicussed the option of genetic testing or tumor screening for Verduzco syndrome. ?? We discussed the natural history and genetics of Verduzco syndrome due to mismatch repair mutations (MLH1, MSH2, MSH6, PMS2, EPCAM). A detailed handout regarding this condition was provided to Latricia atthe end of our appointment today. Her father is the best candidate to undergo tumor screening, and she will discuss this option with him. ?? We also discussed that her maternal aunt's early onset breast cancer is the only feature of the family history concerning for a BRCA gene mutation. Her aunt is the best candidate for initial genetictesting. If a mutation is identified in Latricia's aunt, then it would make sense to offer testing to Latricia, but at this time her BRCA mutation likelihood is low. ?? We discussed that Latricia's breast cancer risk based on her family history is estimated at ~19% (Kassi). This is increased above the general population risk of 12%. ?? Screening recommendations based upon family history: ?? Latricia should begin breast imaging with mammograms at age 33, as this is 10 years prior to the youngest breast cancer diagnosis in the family. Plan: 1) No genetic testing was done today. 2) Latricia will talk to her father about genetic counseling and screening for Verduzco syndrome. An ZARINA was provided today so we can review his pathology records. 3) Latricia will talk to her maternal aunt about the option of genetic testing for BRCA gene mutations. 4) Latricia's lifetime risk of breast cancer is ~19% which is higher than the general population risk of breast cancer. 5) Given her personal and family history of autonomic dysfunction, migraines, etc. I suggested she consider an evaluation for mitochondrial disease through our General Genetics or Metabolic clinics. Scheduling number was given: [phone]. Face to face time: 65 minutes. Felicitas Patel MS, [facility] Genetic Counselor [phone] documented in this encounter Miscellaneous Notes Addendum Note - Felicitas Patel GC - 04/09/2014 4:10 PM CDT Addended by: FELICITAS PATEL on: 04/09/2014 04:10 PM Modules accepted: Level of Service documented in this encounter Plan of Treatment Upcoming Encounters Date Type Specialty Care Team Description 08/19/2022 Office Visit Gastroenterology Mirza Vasquez MD [address] [place] [address] (Wo rk) documented as of this encounter Visit Diagnoses Diagnosis FHx: breast cancer - Primary Family history of malignant neoplasm of breast FHx: colon cancer Family history of malignant neoplasm of gastrointestinal tract documented in this encounter Care Teams Java Application Engineer Relationship Specialty Start Date End Date Alfonso Tang PCP - General Family Practice 09/04/13 08/12/21 documented as of this encounter
--- OUTSIDE RECORDS SUMMARY | 2022-06-30 09:55 | XMS_ITS | Encounter Summary ---
:1990 Author Organization [facility] Address [address] [place] [address] Care Team Providers Name Role Phone Alfonso Tang Primary Care Provider Unavailable Reason for Visit Reason Onset Date Comments Refill Request 06/22/2014 Encounter Details Date Type Department Care Team Description 06/22/2014 Refill Medicine GI - 1E Teresa Heard RN Refill Request 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
--- OUTSIDE RECORDS SUMMARY | 2022-06-30 09:55 | XMS_ITS | Encounter Summary ---
:1990 Author Organization [facility] Address [address] [place] [address]. [place] [address] Care Team Providers Name Role Phone Alfonso Tang Primary Care Provider Unavailable Dayanara Bee MD Unavailable Min Lange MD Unavailable Unavailable Marlo Madsen MD Unavailable Mel Buckley RN Unavailable Encounter Details Date Type Department Care Team Description 03/15/2014 Ambulatory - [facility] Alfonso Tang RETIRED Chronic migraine 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 encounter Plan of Treatment Upcoming Encounters Date Type Specialty Care Team Description 08/19/2022 Office Visit Gastroenterology Mirza Vasquez MD [address] [place] [address] (Wo rk) documented as of this encounter Visit Diagnoses Diagnosis Chronic migraine without aura, with intr actable migraine, so stated, without mention of status migrainosus documented in this encounter Care Teams Associate Chief Nurse Relationship Specialty Start Date End Date Alfonso Tang PCP - General Family Practice 09/04/13 08/12/21 Dayanara Bee MD MD Pediatrics 12/26/[address] [place] [address] [address] [place] [address] Min Lange MD MD Neurology 03/30/16 Marlo Madsen MD Cardiology 10/27/[address] [place] [address] Mel Buckley, DIAZ Nurse Coordinator Physical Medicine and 12/02/16 Rehabilitation documented as of this encounter
--- OUTSIDE RECORDS SUMMARY | 2022-06-30 09:55 | XMS_ITS | Encounter Summary ---
:1990 Author Organization [facility] Address [address] [place] [address]. [place] [address] Care Team Providers Name Role Phone Alfonso Tang Primary Care Provider Unavailable Dayanara Bee MD Unavailable Min Lange MD Unavailable Unavailable Marlo Madsen MD Unavailable Mel Buckley RN Unavailable Encounter Details Date Type Department Care Team Description 06/29/2014 Ambulatory - [facility] Alfonso Tang RETIRED Chronic migraine [facility] Provider, Historical without aura, with [address] 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 as of this encounter Plan of Treatment Upcoming Encounters Date Type Specialty Care Team Description 08/19/2022 Office Visit Gastroenterology Mirza Vasquez MD [address] [place] [address] (Wo rk) documented as of this encounter Visit Diagnoses Diagnosis Chronic migraine without aura, with intr actable migraine, so stated, without mention of status migrainosus documented in this encounter Care Teams Automobile Glass Technician Relationship Specialty Start Date End Date Alfonso Tang PCP - General Family Practice 09/04/13 08/12/21 Dayanara Bee MD MD Pediatrics 12/26/[address] [place] [address] [address] [place] [address] Min Lange MD MD Neurology 03/30/16 Marlo Madsen MD Cardiology 10/27/[address] [place] [address] Mel Buckley, DIAZ Nurse Coordinator Physical Medicine and 12/02/16 Rehabilitation documented as of this encounter
--- OUTSIDE RECORDS SUMMARY | 2022-06-30 09:55 | XMS_ITS | Encounter Summary ---
:1990 Author Organization [facility] Address [address] [place] [address] Care Team Providers Name Role Phone Alfonso Tang Primary Care Provider Unavailable Reason for Visit Reason Onset Date Comments Refill Request 05/29/2014 zonisamide Encounter Details Date Type Department Care Team Description 05/29/2014 Refill [facility] Min Lange, Refill Request Physicians [facility] (lacie wolfe) Neurology Clinic [address] [place] [address], [address] [place] [address] Social History Tobacco Use Types Packs/Day Years Used Date Smoking Tobacco: Never Smokeless Tobacco: Never Alcohol Use Standard Drinks/Week Comments No 0 (1 standard drink = 0.6 oz pure alcoho l) Sex Assigned at Date Recorded 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
--- OUTSIDE RECORDS SUMMARY | 2022-06-30 09:55 | XMS_ITS | Encounter Summary ---
:1990 Author Organization [facility] Address [address] [place] [address] Care Team Providers Name Role Phone Alfonso Tang Primary Care Provider Unavailable Reason for Referral - Closed Specialty Diagnoses / Procedures Referred By Contact Refer red To Contact Diagnoses Abdominal pain, generalized Autonomic nervous system disorder Min Crane MD [address] [place] [address] [address] [place] [address] Referral ID Status Reason Start Date Expiration Date Visits Requ ested Visits Authorized [id number] Closed 10/05/2013 04/03/2014 1 1 E MOVER - Closed Specialty Diagnoses / Procedures Referred By Contact Refer red To Contact Diagnoses Syncope Autonomic nervous system disorder Min Crane MD [address] [place] [address] 3 [address] [place] [address] Referral ID Status Reason Start Date Expiration Date Visits Requ ested Visits Authorized [id number] Closed 10/05/2013 04/03/2014 1 1 E MOVER Reason for Visit Reason Comments Consult autonomic nervous system dis order Encounter Details Date Type Department Care Team Description 10/05/2013 Office Visit [facility] Chronic m igraine without aura, with intractable migraine, so stated, without mention of status migrainosus (Primary Dx); [facility] Autonom ic nervous system disorder; [facility] Neurology Abdominal pain, generalized; Clinic Syncope [address] [facility], [address] [place] [address] Social History Tobacco Use Types Packs/Day Years Used Date Smoking Tobacco: Never Smokeless Tobacco: Never Alcohol Use Standard Drinks/Week Comments No 0 (1 standard drink = 0.6 oz pure alcoho l) Sex Assigned at Date Recorded Female 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 She is a 23-year-old female here for evaluation of an autonomicdisorder. She also has chronic migraine headaches. Around the age of 13 she began experiencing recurrent gastrointestinal pain. She tells me multiple tests were done and she even had exploratory surgery. The latter was unrevealing. 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 She also began experiencing episodes of fainting. These would occur with her in the upright position, particularly if she had prolonged standing. The loss of consciousness was typically very brief. Ultimately, she was evaluated at the [facility] and it was felt that she had autonomic dysfunction.It was recommended she liberalize fluids and salt intake. She tried knee-high compression stockings.She had pain rehabilitation. She was also given a TENS unit for the abdominal pain. The last records I have from the [facility] was in 2010. She did have extensive autonomic reflex screening. This included testing for heart rate response with deep breathing, tilt table testing, and QSWEAT testing. These were all normal. Other testing that she has had done through the [facility] included normal cortisol studies in 2007. This included a morning cortisol and a 24-hour urine collection. She had normal corticotropin level. In 2010 testing done included a normal CBC, iron studies, glucose, hemoglobin A1c, TSH, insulin level and tissue transglutaminase level. When she last saw Dr. Serna in 2010 he felt that her autonomic dysfunction and had most resolved. She has, however, continued to have episodes of syncope and presyncope. The syncope occurs about 5 times a year. If she has an episode come on she typically tries to lie down. She also has continued to have chronic nausea and abdominal pain. She was tried on metoclopramide inthe past but it developed facial twitching. She now takes Ondansetron. In recent months she says katthas had a change in her taste. Everything tasted sweet and she craved sweets. She lost 75 pounds. There has been no change in her sense of smell. The patient also has history of migraine headaches dating back many years. She did have a normal brain MRI scan in 2011 following a concussion. Her typical headache is right-sided, with associated photophobia. She is having about one of these a week. She does get relief with Zomig. She was tried on a low dose of Topamax in the past for migraine prevention (25 mg once or twice a day). It was not helpful. She was also on Depakote for a while but this was stopped given her history of polycystic ovary disease. PAST MEDICAL HISTORY: As noted above. She also has a history of depression and anxiety. CURRENT MEDICATIONS: Zomig 5 mg p.r.n., Ondansetron 4 mg, Pristiq, Meclizine p.r.n., Daylin control, multivitamin, stool softener. She has also recently prescribed amoxicillin. ALLERGIES: The patient has no medical allergies but is intolerant of Vicodin. FAMILY HISTORY: The family history is interesting. She has a mother and sister who have some autonomic disorder. They both have migraine as well. 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 She does not smoke and she does not use alcohol. PHYSICAL EXAMINATION: Reveals a pleasant female. She is alert and cooperative. Heart rate is 84. Blood pressure 116/88 sitting. I had her stand for 2 minutes and there was no drop in her systolic bloodpressure. Funduscopic examination is unremarkable. Venous pulsations are noted. Visual andersen are intact. Cranial nerves II-XII are intact. She is able to taste sweet and salt normally. Motor, sensory, cerebellar and gait testing are normal. There is no evidence of small-fiber sensory loss. Reflexes are 2+. Plantar responses are flexor. IMPRESSION: 1. History of autonomic dysfunction. 2. Chronic abdominal pain with patient history of dysmotility. 3. Episodic syncope and presyncope. 4. Migraine. PLAN: I would like her to undergo further evaluation for the syncope and specifically I would like her to see Dr. Marlo Madsen who is an expert in autonomic dysfunction as it relates to this. I am also referring her for Gastroenterology for further evaluation of her abdominal pain and possible dysmotility. I did suggest she could try wearing thigh high compression hose when she is up for any prolonged period of time to see if this would help her symptoms. I wrote her a prescription for these. I did tell her she should not be driving with her ongoing episodes of syncope and that the rule in [place] is that she should refrain from driving until she has been free of episodes for at least 3 months. In terms of her migraine management, I discussed preventive agents. Topamax could be reconsidered, but given its effect on taste and appetite it was decided not to utilize that as she is already havingsome issues related to these. I would not go back to Depakote. I did suggest she try gabapentin 100 mg 3 times a day for a week and then she can increase to 200 mg3 times a day depending on her response and tolerance. I discussed the potential side effects. I do plan to see her back in 6 weeks to see how she did with the gabapentin. Sincerely, Min Crane MD cc: Marlo Madsen MD Department of Cardiology [facility] MIN CRANE MD MT: lg Name: LATRICIA MACHADO Account: [id number] : 1990 Service Date: 10/05/2013 Document: [id number] E MOVER documented in this encounter Nursing Notes 10/05/2013 12:00 PM CST >> Eagle Bosch LPN [facility] Oct 05, 2013 12:14 PM Patient presents with: Consult - autonomic nervous system disorder Pt presents today with Hx of autonomic dysfunction. Pt reports symptoms of nausea, dizziness, pain in abdomen, and taste abnormalities. Pt reports diagnosis and symptoms since 13 years of age. Pt states that pain level today is 5/10, but she regularly has pain 9/10. Eagle Bosch LPN documented in this encounter Plan of Treatment Upcoming Encounters Date Type Specialty Care Team Description 08/19/2022 Office Visit Gastroenterology Mirza Vasquez MD [address] [place] [phone] (Wo rk) Scheduled Referrals Name Type Priority Associated Diagnoses Order S chedule CARDIOLOGY EVAL ADULT Referral Routine Syncope Ordered: 10/05/2013 REFERRAL Autonomic nervous system disorder GASTROENTEROLOGY ADULT Referral Routine Abdominal pain, Or dered: 10/05/2013 REFERRAL +/- PROCEDURE generaliz ed Autonomic nervous system disorder documented as of this encounter Visit Diagnoses Diagnosis Chronic migraine without aura, with intr actable migraine, so stated, without mention of status migrainosus - Primary Autonomic nervous system disorder Unspecified disorder of autonomic nervou s system Abdominal pain, generalized Syncope Syncope and collapse documented in this encounter Care Teams Spout Worker Relationship Specialty Start Date End Date Alfonso Tang PCP - General Family Practice 09/04/13 08/12/21 documented as of this encounter
--- OUTSIDE RECORDS SUMMARY | 2022-06-30 09:55 | XMS_ITS | Encounter Summary ---
:1990 Author Organization [facility] Address [address] [place] [address]. [place] [address] Care Team Providers Name Role Phone Alfonso Tang Primary Care Provider Unavailable Encounter Details Date Type Department Care Team Description 06/21/2014 Orders Only University Alfonso Chávez Migraine with out aura, [facility] MD Luis with intractable [facility] Neurology [address] 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 Went to [place] ER, received compazine/benedryl/ketorolac. Nausea better, no help for headache. Received MS after that. Headache improved. Went home. Headache back today. Will try [id number] x 2 days, then 40 x 2 days, then d/c. On zonegran 100. F/u with Dr. Lange next week. documented in this encounter Plan of Treatment Upcoming Encounters Date Type Specialty Care Team Description 08/19/2022 Office Visit Gastroenterology Mirza Vasquez MD [address] [place] [address] (Wo rk) documented as of this encounter Visit Diagnoses Diagnosis Migraine without aura, with intractable migraine, so stated, without mention of status migrainosus - Primary documented in this encounter Care Teams Research Pharmacist Relationship Specialty Start Date End Date Alfonso Tang PCP - General Family Practice 09/04/13 08/12/21 documented as of this encounter
--- OUTSIDE RECORDS SUMMARY | 2022-06-30 09:55 | XMS_ITS | Encounter Summary ---
:1990 Author Organization [facility] Address [address] [place] [address] Care Team Providers Name Role Phone Alfonso Tang Primary Care Provider Unavailable Reason for Referral Consultation - Closed Specialty Diagnoses / Procedures Referred By Contact Refer red To Contact Diagnoses Chronic migraine without aura, with intractable migraine, so stated, without mention of status migrainosus Min Crane MD [address] [facility] [address] [place] [address] Referral ID Status Reason Start Date Expiration Date Visits Requ ested Visits Authorized [id number] Closed 03/15/2014 09/11/2014 1 1 - Closed Specialty Diagnoses / Procedures Referred By Contact Refer red To Contact Diagnoses Chronic migraine without aura, with intractable migraine, so stated, without mention of status migrainosus Min Crane MD Procedures Basic metabolic panel [address] [facility] [address] [place] [address] Referral ID Status Reason Start Date Expiration Date Visits Requ ested Visits Authorized [id number] Closed 03/15/2014 09/11/2014 1 1 Reason for Visit Reason Comments RECHECK medication follow up Encounter Details Date Type Department Care Team Description 03/15/2014 Office Visit [facility] [place] Chronic m igraine [place] Christa GAUTHIER without aura, with [facility] Neurology intractabl e migraine, Clinic so stated, without [address] [facility], mention of status [address] migrainosus ([place] [address] Dx) [phone] Social History Tobacco Use Types Packs/Day Years Used Date Smoking Tobacco: Never Smokeless Tobacco: Never Alcohol Use Standard Drinks/Week Comments No 0 (1 standard drink = 0.6 oz pure alcoho l) Sex Assigned at Date Recorded Female 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 She is a patient with intractable migraine. Since last seen, she tried and stopped Topamax. The Topamax made her feel like she would fall over, even at a small dose of 25 mg a day. She is now having a headache about every 10 days, but it can last for days at a time. She is no longer getting benefit from Zomig. I did discuss her treatment options, both from the standpoint of preventative treatments and abortive treatments. Preventive treatments that have been tried have included gabapentin, Topamax and Depakote. I would be reluctant to utilize a beta angella because of her dysautonomia. She has responded to various triptans in the past, but they all seemed to lose their benefit over time. Most recently she was on Zomig but other ones tried have included Relpax, oral Imitrex and Maxalt. I did discuss a trial of zonisamide for preventive treatment. I reviewed side effects. She has no contraindication to the drug. She is interested in trying Zonegran. The initial dose will be 25 mg a day with the latitude to increase to 50 mg and then 75 mg over the next 3 weeks. She is going to have a baseline CBC and basic metabolic panel checked. We discussed Botox injections today and I think ultimately this may be a good treatment for her. Sheis interested in getting an opinion from Dr. Peacock concerning Botox injections and I put in a referral for this. In terms of abortive treatment, I did discuss Imitrex injection. I pointed out to her that it is oftentimes a very intense experience with the drug with the potential for various side effects. She is abit concerned about that and does not want to try the injectable Imitrex at this point. Her mother pointed out that she actually had had a good response to Relpax in the past but it lost its effectiveness. She was probably only on the 20 mg dose. She is interested in trying Relpax again and she was given a prescription for Relpax 40 mg. I did discuss the Cefaly device that was recently approved by the FDA for treatment and prevention of migraine. It is basically a TENS unit worn as a headband. I did tell the patient and her mother that I have no personal experience with the device, and it probably would not be covered by insurance, but if they wish to look into this further, it would be reasonable. I do plan to keep in touch with Latricia and I will call her with the results of her blood tests and see how she has done with the addition of Zonegran and Relpax. ADDENDUM 03/22/14: CBC and BMP OK. Left message for patient. Sincerely, Min Crane MD cc: Juan David Peacock MD [facility] [address] [facility] [address] [place] [address] MIN CRANE MD MT: AKA Name: LATRICIA MACHADO Account: [id number] : 1990 Service Date: 03/15/2014 Document: [id number] documented in this encounter Nursing Notes Dhara Ayoub RN - 03/15/2014 2:52 PM CDT Chief Complaint Patient presents with ??? RECHECK medication follow up Patient stopped Topamax due to dizziness. Dhara Ayoub, RN documented in this encounter Plan of Treatment Upcoming Encounters Date Type Specialty Care Team Description 08/19/2022 Office Visit Gastroenterology Mirza Vasquez MD [address] [place] [address] (Wo rk) Scheduled Referrals Name Type Priority Associated Diagnoses Order S chedule PHYSIATRY REFERRAL Referral Routine Chronic migraine witho ut Ordered: 03/15/2014 aura, with intractable migraine, so stated, without mention of status migrainosus documented as of this encounter Visit Diagnoses Diagnosis Chronic migraine without aura, with intr actable migraine, so stated, without mention of status migrainosus - Primary documented in this encounter Care Teams Material Handling Crew Supervisor Relationship Specialty Start Date End Date Alfonso Tang PCP - General Family Practice 09/04/13 08/12/21 documented as of this encounter
--- OUTSIDE RECORDS SUMMARY | 2022-06-30 09:55 | XMS_ITS | Encounter Summary ---
:1990 Author Organization [facility] Address [address] [place] [address]. [place] [address] Care Team Providers Name Role Phone Alfonso Tang Primary Care Provider Unavailable Encounter Details Date Type Department Care Team Description 06/22/2014 Telephone Neurology Clinic Alfonso Chávez MD [facility] [address] [facility] [address] [place] [address] 1st Floor, Clinic [address] [place] [address] [place] [phone] Social History Tobacco Use Types Packs/Day Years Used Date Smoking Tobacco: Never Smokeless Tobacco: Never Alcohol Use Standard Drinks/Week Comments No 0 (1 standard drink = 0.6 oz pure alcoho l) Sex Assigned at Date Recorded Female 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 Still having headache after first dose of prednisone yesterday. Recommend take second dose before going to ER. documented in this encounter Plan of Treatment Upcoming Encounters Date Type Specialty Care Team Description 08/19/2022 Office Visit Gastroenterology Mirza Vasquez MD [address] [place] [address] (Wo rk) documented as of this encounter Visit Diagnoses Not on filedocumented in this encounter Care Teams Textile Knitter Relationship Specialty Start Date End Date Alfonso Tang PCP - General Family Practice 09/04/13 08/12/21 documented as of this encounter
--- OUTSIDE RECORDS SUMMARY | 2022-06-30 09:55 | XMS_ITS | Encounter Summary ---
:1990 Author Organization [facility] Address [address] [place] [address] Care Team Providers Name Role Phone Alfonso Tang Primary Care Provider Unavailable Reason for Visit Reason Comments Migraine Encounter Details Date Type Department Care Team Description 06/22/2014 Hospital Encounter [facility] [address] [place] [address] Cephalgia DEPARTMENT Provider, [facility] [address] [phone] Social History Tobacco Use Types Packs/Day Years Used Date Smoking Tobacco: Never Smokeless Tobacco: Never Alcohol Use Standard Drinks/Week Comments No 0 (1 standard drink = 0.6 oz pure alcoho l) Sex Assigned at Date Recorded 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 of 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 encounter Last Filed Vital Signs Vital Sign Reading Time Taken Comments Blood Pressure - - Pulse - - Temperature - - Respiratory Rate - - Oxygen Saturation - - Inhaled Oxygen Concentration - - Weight 81.6 kg (180 lb) 06/22/2014 1:15 PM CDT Height 165.1 cm (5' 5) 06/22/2014 1:15 PM CDT Body Mass Index 29.95 06/22/2014 1:15 PM CDT documented in this encounter Medications at Time of Discharge Medication Sig Dispensed Refills Start Date End Date desvenlafaxine succinate Take 100 mg by mouth 0 0 04/18/2014 10/31/2021 (PRISTIQ) 100 MG TB24 24 every morning hr tablet Desvenlafaxine Succinate Take 1 tablet by 0 04/15/2016 (PRISTIQ) 100 MG TB24 24 mouth daily hr tablet diltiazem 2% in PLO To anal opening 60 g 0 03/21/2014 09/21/2014 cream, FV COMPOUNDED, 2% three times daily. GELIndications: Anal Use a pea-sized fissure amount. Store at room temperature. Drospirenone-Ethinyl Take 1 tablet by 0 10/16/2015 Estradiol (LIOR PO) mouth daily eletriptan (RELPAX) 40 Take 1 tablet (40 12 tablet 1 201306/28/2014 MG tabletIndications: mg) by mouth at Chronic migraine without onset of headache aura, with intractable for migraine (May migraine, so stated, repeat in 2 hours if without mention of needed) status migrainosus fludrocortisone Take 1 tablet (0.1 90 tablet 3 01/25/2014 0 01/08/2015 (FLORINEF) 0.1 MG mg) by mouth daily tabletIndications: Autonomic dysfunction linaclotide (LINZESS) Take 1 capsule (290 30 capsule 2 06/2210/09/2014 290 MCG mcg) by mouth every capsuleIndications: morning (before Constipation, Abdominal breakfast) pain meclizine (ANTIVERT) 25 Take 1 tablet by 0 04/15/2016 MG tablet mouth 3 times daily as needed Multiple Take 1 tablet by 0 10/31/19 22 Vitamins-Minerals mouth every morning (WOMENS MULTIVITAMIN PLUS PO) ondansetron (ZOFRAN-ODT) Take 1 tablet by 0 04/15/2016 4 MG disintegrating mouth as needed tablet predniSONE (DELTASONE) Take 1 tablet (10 24 tablet 0 201306/28/2014 10 MG tabletIndications: mg) by mouth See Migraine without aura, Admin Instructions with intractable migraine, so stated, without mention of status migrainosus zonisamide (ZONEGRAN) 25 One at night for one 90 capsule 1 0 05/29/2014 06/28/2014 MG capsuleIndications: week, then 2 at Chronic migraine without night for one week, aura, with intractable then 3 at night migraine, so stated, without mention of status migrainosus documented as of this encounter ED Notes Oumar Bradley - 06/22/2014 1:35 PM CDT eMERGENCY dEPARTMENT eNCOUnter CHIEF COMPLAINT Chief Complaint Patient presents with ??? Migraine HPI Latricia Machado is a 24 y.o. female who presents to the Emergency Department for evaluation of headache. The patient developed a headache 6 days ago. She was seen here in the ED 2 days for this and was treated with IV Toradol, benadryl, compazine and morphine with some improvement. She was discharged home to follow up with her neurologist who she called yesterday and was given a prescription for prednisone. She took 60mg prednisone yesterday and again today without relief and also took zonegran 100mg. She presents today with a persistent, worsening headache. The patient states the headache initially began on the right side and is now on the left. She rates her pain a 9 on a scale of 10. The patie nt reports associated nausea without vomiting and photophobia. Denies phonophobia. The patient reports her typical migraine headache is similar to this headache, pain feels similar, however is different as her headaches normally don't last this long and she is also more diffusely weak. She states her normal migraine headaches occur every 2-3 weeks and generally last for 2-3 days before her pain resolves. Her headaches also localize to one side of her head, will never switch sides like it did with this headache. Denies hitting her head or recent trauma. Denies fever. The creation of this record is based on the scribe???s observations of the work being performed by Dr. Oumar [facility] MD and the provider???s statements to her. It was created on his behalf by Savana Christopher, a trained medical surgical tech. This document has been checked and approved [...] daily. ??? LINZESS 290 mcg cap capsule Oral Take 290 mcg by mouth once. ??? meclizine (ANTIVERT) 25 mg tablet Oral Take 25 mg by mouth as needed. ??? ondansetron (ZOFRAN-ODT) 4 MG disintegrating tablet Oral Take 4 mg by mouth. ??? predniSONE (DELTASONE) 10 MG tablet ??? PRISTIQ 100 mg 24 hr tablet Oral Take 100 mg by mouth once daily. ??? zonisamide (ZONEGRAN) 25 MG capsule 100 mg. ??? HYDROcodone-acetaminophen 5-325 mg per tablet Oral Take 1 tablet by mouth every 4 (four) hours as needed for pain. 10 tablet 0 ??? ondansetron (ZOFRAN ODT) 4 MG disintegrating tablet Oral Take 1 tablet (4 mg total) by mouth every 8 (eight) hours as needed for nausea (As needed for nausea). 6 tablet 0 ??? oxyCODONE-acetaminophen (PERCOCET) 5-325 mg per tablet Oral Take 1 tablet by mouth every 4 (four) hours as needed for pain. [id number] 20 tablet 0 ALLERGIES No Known Allergies SOCIAL HISTORY She reports that she has never smoked. She does not have any smokeless tobacco history on file. She reports that she does not drink alcohol or use illicit drugs. FAMILY HISTORY No family history on file. REVIEW OF SYSTEMS Constitutional: Denies fever or chills. Positive for generalized weakness. Eyes: Denies diplopia. Positive for photophobia. HENT: Denies sore throat or ear pain. Respiratory: Denies cough or shortness of breath. Cardiovascular: Denies chest pain. GI: Positive for nausea. Denies abdominal pain, vomiting, or black or red bloody stools. Musculoskeletal: Denies any new muscle/joint pain or new back pain. Skin: Denies rash. Neurologic: Positive for headache. Denies difficulty with speech. Denies focal weakness. Endocrine: Denies polyuria. Other pertinent review of systems findings per HPI. PHYSICAL EXAM VITALS SIGNS: BP 111/60 Pulse 86 Temp(Src) 98.5 ??F (36.9 ??C) Resp 18 Ht 5' 5 (1.651 m) Wt 180 lb (81.647 kg) BMI 29.95 kg/m2 SpO2 96% LMP 06/16/2014 Constitutional: Awake. Alert. Cooperative. HENT: Normocephalic. Atraumatic. Bilateral TM???s are normal. Mucous membranes are moist. Neck is supple. Eyes: Scleral non-icteric. EOMI. Respiratory: No respiratory distress. Breath sounds are clear and symmetric. Cardiovascular: Regular rate and rhythm. S1 plus S2. GI: The abdomen is soft and non-tender. Positive bowel sounds. : No CVA tenderness to percussion. Musculoskeletal: No clubbing or cyanosis. No edema. Integument: Warm. Dry. No rash. Neurologic: Alert. Cranial nerves II-XII intact. Strength 5/5 upper and lower extremities. Equal hand grasp. Sensation intact to light touch throughout. Psychiatric: Affect and mood are normal. Cooperative. LABS Results for orders placed during the hospital encounter of 06/22/14 POCT , URINE Result Value Range POC Preg, Urine Negative Negative POC Specific Bonner, Urine 1.001 - 1.030 RADIOLOGY Please see official radiology report. CT HEAD WO CONTRAST Final Result: CONCLUSION: Negative CT of the head. ED Course 4:53 PM - Rechecked the patient. Discussed the results of her head CT. She is feeling much better; nausea has resolved and headache has improve. Discussed the plan for discharge and my recommendation for treatment and follow up with her neurologist. The patient verbalized understanding and was in agreement with the plan. 4:56 PM - Originally Vicodin was written for her but she states it made her nauseated; for that reason a prescription for percocet was written for instead. The prescription for Vicodin was destroyed. MEDICAL DECISION MAKING Patient presents with headache with associated nausea. Patient has history of migraine type headaches and feels this is similar there was been hanging on much longer than expected. She was seen 2 days ago with improvement with use of parenteral narcotics and antiemetics. She's had persistent headache since then and for that reason re-presents for further evaluation. No history of head trauma or fever. She is neurologically intact. Because of the prolonged nature of the headache, I obtained a head CTand it was read as normal. No evidence for mass lesion or intracranial bleed. Suspect this is probably a mixed type headache which would best explained its prolonged nature. The patient reports improvement with use of IV Compazine as well as Dilaudid. The patient is discharged home in the company of family and encouraged to rest. May use Percocet as needed for any residual headache with a prescription for Zofran also given. The importance of close follow-up with her primary care provider or her neurologist was strongly emphasized to her prior to departure. FINAL IMPRESSION 1. Cephalgia Oumar Bradley MD 06/23/14 0846 documented in this encounter Plan of Treatment Upcoming Encounters Date Type Specialty Care Team Description 08/19/2022 Office Visit Gastroenterology Mirza Vasquez MD [address] [place] [phone] (Wo rk) documented as of this encounter Procedures Procedure Name Priority Date/Time Associated Diagnosis Comme nts CT HEAD W/O Routine 06/22/2014 4:22 PM Results f or this CONTRAST CDT procedure are i n the results section. documented in this encounter Results CT Head w/o Contrast (06/22/2014 4:22 PM CDT) Anatomical Region Laterality Modality Head, SUBRAD CT NEURO, SUBRAD CT NEURO, UMP CT NEURO, Computed Tomography RAD CT Specimen (Source) Anatomical Location Collection Method / Collectio n Time Received Time / Laterality Volume Impressions 06/22/2014 4:35 PM CDT CONCLUSION: Negative CT of the head. Narrative 06/22/2014 4:35 PM CDT [facility] CT HEAD WO CONTRAST 06/22/2014 4:22 PM INDICATION: Headache TECHNIQUE: Routine CT head without IV co ntrast. Thin-section axial imaging with coronal and sagittal reconstruction. COMPARISON: 10/15/2011 FINDINGS: The intracranial contents are negative. No hemorrhage, mass or acute infarct. Normal size ventricles. Skull and limited view of paranasal sinu ses are normal. Procedure Note Te Azevedo MD - 02/15/2021Formatt ing of this note might be different from the original. [facility] CT HEAD WO CONTRAST 06/22/2014 4:22 PM INDICATION: Headache TECHNIQUE: Routine CT head without IV co ntrast. Thin-section axial imaging with coronal and sagittal reconstruction. COMPARISON: 10/15/2011 FINDINGS: The intracranial contents are negative. No hemorrhage, mass or acute infarct. Normal size ventricles. Skull and limited view of paranasal sinu ses are normal. IMPRESSION: CONCLUSION: Negative CT of the head. Oumar Bradley IMG CT ORDERABLES documented in this encounter Visit Diagnoses Diagnosis Cephalgia Headache documented in this encounter Care Teams Manager Activities Relationship Specialty Start Date End Date Alfonso Tang PCP - General Family Practice 09/04/13 08/12/21 documented as of this encounter
--- OUTSIDE RECORDS SUMMARY | 2022-06-30 09:55 | XMS_ITS | Encounter Summary ---
:1990 Author Organization [facility] Address [address] [place] [address]. [place] [address] Care Team Providers Name Role Phone Alfonso Tang Primary Care Provider Unavailable Reason for Visit Reason Onset Date Comments Patient Request 06/20/2014 Encounter Details Date Type Department Care Team Description 06/20/2014 Telephone [facility] Min Lange MD Patient Request [facility] [address] [place] [address], [address] [place] [phone] Social History Tobacco Use Types Packs/Day Years Used Date Smoking Tobacco: Never Smokeless Tobacco: Never Alcohol Use Standard Drinks/Week Comments No 0 (1 standard drink = 0.6 oz pure alcoho l) Sex Assigned at Date Recorded 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 Headache persists, usually they do not last 5 days. Sleep not helping that much. It does feel like a typical migraine. Recommend ER or for assessment and treatment. Telephone Encounter - Eagle Bosch LPN - 06/20/2014 10:37 AM CDT Pt called in to clinic and explained to Machine Shop Worker that she has still been having migraine headaches forat least five days. Pt states she was instructed to call Dr. Chávez as Dr. Lange is on vacation. Machine Shop Worker informed pt that he would share this message with Dr. Chávez for advisement. Pt verbalized understanding. Eagle Bosch LPN documented in this encounter Plan of Treatment Upcoming Encounters Date Type Specialty Care Team Description 08/19/2022 Office Visit Gastroenterology Mirza Vasquez MD [address] [place] [phone] (Wo rk) documented as of this encounter Visit Diagnoses Not on filedocumented in this encounter Care Teams Crossing Supervisor Relationship Specialty Start Date End Date Alfonso Tang PCP - General Family Practice 09/04/13 08/12/21 documented as of this encounter
--- OUTSIDE RECORDS SUMMARY | 2022-06-30 09:55 | XMS_ITS | Encounter Summary ---
:1990 Author Organization [facility] Address [address] [place] [address]. [place] [address] Care Team Providers Name Role Phone Alfonso Tang Primary Care Provider Unavailable Encounter Details Date Type Department Care Team Description 03/19/2014 Telephone Colon and Rectal Surgery esau Ramsey, MAXIMILIANO Figueroa [facility] [address] [address] [address] Floor, Clinic [address] [place] [address] [place] [phone] Social History Tobacco Use Types Packs/Day Years Used Date Smoking Tobacco: Never Smokeless Tobacco: Never Alcohol Use Standard Drinks/Week Comments No 0 (1 standard drink = 0.6 oz pure alcoho l) Sex Assigned at Date Recorded 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 Dawson for an anal fissure. I calledand spoke with patient. Patient is scheduled for 03/21/14 @ 1:45 pm with Supriya Hadley NP. Pt knows to check in at clinic 1E. documented in this encounter Plan of Treatment Upcoming Encounters Date Type Specialty Care Team Description 08/19/2022 Office Visit Gastroenterology Mirza Vasquez MD [address] [place] [phone] (Wo rk) documented as of this encounter Visit Diagnoses Not on filedocumented in this encounter Care Teams Material Handling Technician Relationship Specialty Start Date End Date Alfonso Tang PCP - General Family Practice 09/04/13 08/12/21 documented as of this encounter
--- OUTSIDE RECORDS SUMMARY | 2022-06-30 09:55 | XMS_ITS | Encounter Summary ---
:1990 Author Organization [facility] Address [address] [place] [address]. 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 I have changed this appointment and will mail her a new patient packet with the corrected information. Telephone Encounter - Sushila Malone - 04/26/2014 2:31 PM CDT Called patient to offer a sooner appointment via the wait list. Left her a message stating that we have an opening 06/11/2014 at 9:10 am. Asked for her to return my call no later than Wednesday at 8:00 am to accept the appointment and that if I do not hear by then I will move into the next wait-list patient. Provided my direct phone number and OK'd her to leave any information on my voice mail if I was unavailable or she needed to call over the weekend. documented in this encounter Plan of Treatment Upcoming Encounters Date Type Specialty Care Team Description 08/19/2022 Office Visit Gastroenterology Mirza Vasquez MD [address] [place] [phone] (Wo rk) documented as of this encounter Visit Diagnoses Not on filedocumented in this encounter Care Teams Circular Clerk Relationship Specialty Start Date End Date Alfonso Tang PCP - General Family Practice 09/04/13 08/12/21 documented as of this encounter
--- OUTSIDE RECORDS SUMMARY | 2022-06-30 09:55 | XMS_ITS | Encounter Summary ---
:1990 Author Organization [facility] Address [address] [place] [address] Care Team Providers Name Role Phone Alfonso Tang Primary Care Provider Unavailable Reason for Visit Reason Comments RECHECK migraine Encounter Details Date Type Department Care Team Description 11/16/2013 Office Visit Min Ennis, Rex m igraine without aura, with intractable migraine, so stated, without mention of status migrainosus (Primary Dx); [facility] Abnorma l finding on thyroid function test [facility] [address] [place] [address], [address] [place] [phone] Social History Tobacco Use Types Packs/Day Years Used Date Smoking Tobacco: Never Smokeless Tobacco: Never Alcohol Use Standard Drinks/Week Comments No 0 (1 standard drink = 0.6 oz pure alcoho l) Sex Assigned at Date Recorded 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 This is followup for migraine headaches. The patient also has a history of chronic abdominal pain and a history of gastric dysmotility. She is undergoing an evaluation by the gastroenterology specialists at the [facility]. She also has a history of autonomic dysfunction with episodic syncope and presyncope. She is scheduled to see Dr. Madsen in Cardiology in January concerning this issue. Regarding her migraines, when I last saw her, she was started on gabapentin and is on a dose of 200 mg 3 times a day now. She tells me her headaches have decreased in their frequency and she is only having 1 every 3 weeks now. Unfortunately, she no longer can abort the headache with Zomig. In the past, she has tried Relpax and Imitrex which were ineffective. She did have laboratory work done after seeing the hadoop application developer. She had a normal CBC, negative C-reactive protein, and a normal TSH. CURRENT MEDICATIONS: 1. Gabapentin 200 mg 3 times a day. 2. Zomig 5 mg p.r.n. 3. MiraLax. 4. Zofran p.r.n. 5. Pristiq. 6. Antivert. 7. Daylin. 8. Multivitamin. 9. Stool softener. Examination reveals she is alert and cooperative. Heart rate 76. Blood pressure 118/82. Funduscopic examination reveals sharp disc margins. Venous pulsations are noted. Visual andersen are intact. Cranial nerves II-XII are intact. Motor, sensory, cerebellar and gait testing are normal. Reflexes are 2+. Plantar responses are flexor. IMPRESSION: Migraine. PLAN: Her headache frequency has improved on gabapentin and she is tolerating the drug well. She is going to increase to 300 mg 3 times a day. She is finding the Zomig ineffective for aborting her headaches now. She failed Relpax and Imitrex in the past. I suggested now she try Maxalt 10 mg. She could also add naproxen to the Maxalt if needed. I am going to be seeing her back in a couple months. ADDENDUM: Headaches worsened with increase in gabapentin and headaches no longer responding to triptans. Also, no menstrual period since starting gabapentin. Two negative tests. This would beunusual side effect but given less than ideal response to drug in terms of headaches will taper off over 10 days. See SUPERVISOR FEED MILL if still problems. Sincerely, MD MIN Santiago MD MT: [place] Name: LATRICIA MACHADO MRN: [id number] Account: [id number] : 1990 Service Date: 11/16/2013 Document: [id number] documented in this encounter Nursing Notes 11/16/2013 3:00 PM CST >> Dhara Monk Nov 16, 2013 2:55 PM Patient presents with: RECHECK - migraine Pt reports less frequent migraines however Zomig is now ineffective. Dhara Ayoub RN documented in this encounter Plan of Treatment Upcoming Encounters Date Type Specialty Care Team Description 08/19/2022 Office Visit Gastroenterology Mirza Vasquez MD [address] [place] [phone] (Wo rk) documented as of this encounter Visit Diagnoses Diagnosis Chronic migraine without aura, with intr actable migraine, so stated, without mention of status migrainosus - Primary Abnormal finding on thyroid function akil t Nonspecific abnormal results of thyroid function study documented in this encounter Care Teams Creel Cleaner Relationship Specialty Start Date End Date Alfonso Tang PCP - General Family Practice 09/04/13 08/12/21 documented as of this encounter
--- OUTSIDE RECORDS SUMMARY | 2022-06-30 09:55 | XMS_ITS | Encounter Summary ---
:1990 Author Organization [facility] Address [address] [place] [address] Care Team Providers Name Role Phone Alfonso Tang Primary Care Provider Unavailable Reason for Visit Reason Comments RECHECK 2 month follow up Encounter Details Date Type Department Care Team Description 02/01/2014 Office Visit [facility] [place] Chronic m igraine [facility] without aura, with [facility] intractabl e migraine, Clinic so stated, without [address], mention of status [address] migrainosus [place] [address] Dx) [phone] Social History Tobacco Use Types Packs/Day Years Used Date Smoking Tobacco: Never Smokeless Tobacco: Never Alcohol Use Standard Drinks/Week Comments No 0 (1 standard drink = 0.6 oz pure alcoho l) Sex Assigned at Date Recorded 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 Last Filed Vital Signs Vital Sign Reading Time Taken Comments Blood Pressure 114/76 02/01/2014 2:58 PM CDT Pulse 68 02/01/2014 2:58 PM CDT Temperature - - Respiratory Rate - - Oxygen Saturation - - Inhaled Oxygen Concentration - - Weight - - Height - - Body Mass Index - - documented in this encounter Patient Instructions Patient InstructionsMin Lange MD - 02/01/2014 3:15 PM CDT Topiramate 25 mg: Week 1: one at night Week 2: One in am and one at night Week 3: One in am and 2 at night Week 4: 2 in am and 2 at night documented in this encounter Progress Notes Min Lange MD - 02/01/2014 3:27 PM CDT February 01, 2014 Alfonso Tang MD [address] [place] [address] RE: Latricia Machado : 1990 Dear Alfonso: I saw Latricia Machado back. She is here for reevaluation of chronic migraine. After I originally saw her in November she tried gabapentin. Initially it did seem to be helping her headaches. She increased the dose and started developing irregular menses that probably relates more toher polycystic ovarian disease then it did the gabapentin. In addition, she also noted her headacheswere getting worse and so she discontinued the drug. She estimates that she gets attacks of migraine 4-5 times a month with each headache lasting up to 3days. This would work out to 12-15 headache days per month. She has been tried on a variety of triptans including Zomig, Maxalt, Relpax and Imitrex. These have been ineffective. She has also tried nonsteroidal anti- inflammatory drugs. She was on a low dose of Topamax in the past (25 mg twice a day). It was ineffective at that dose. She was tried on Depakote in the past, but that was stopped because of her history of polycystic ovarydisease. Since I saw her, she did see Dr. Marlo Madsen for evaluation and treatment of her longstanding dysautonomia. He advised her to increase her electrolyte fluids, wear biker shorts or an abdominal binder. He also recommended exercises to do. Florinef was started. CURRENT MEDICATIONS: 1. Florinef 0.1 mg a day. 2. Metamucil. 3. MiraLax. 4. Zofran. 5. Pristiq. 6. Antivert p.r.n. 7. Daylin. 8. Multivitamin. Examination reveals she is alert and cooperative. Heart rate is 68. Blood pressure 114/76. Funduscopic examination reveals sharp disc margins. Venous pulsations are noted. Visual andersen are intact. Cranial nerves II-XII are intact. Motor, sensory, cerebellar and gait testing are normal. Reflexes are 2+ in the upper extremities, 3+ at the knees and 2+ at the ankles. Plantar responses are flexor. IMPRESSION: Intractable migraine. PLAN: I discussed retrying Topamax. She was only on a modest dose in the past. She is open to this. I reviewed potential side effects with her. I told her if it exacerbates her chronic gastrointestinalsymptoms, she should stop it. She is not planning . She is going to start on 25 mg of Topamax at night for a week, then she can go to 25 mg twice a day for a week, then 75 mg in divided doses for another week and then 50 mg twice a day. I told her if her headaches improve on a lower dose, she does not need to increase the dose. I have asked her to followup with me in 6 weeks. Sincerely, MD MIN Le MD MT: [place] Name: LATRICIA MACHADO Account: [id number] : 1990 Service Date: 02/01/2014 Document: [id number] documented in this encounter Nursing Notes Dhara Ayoub RN - 02/01/2014 2:55 PM CDT Chief Complaint Patient presents with ??? RECHECK 2 month follow up Patient reports migraines come about every 10 days lasting 3-4 days. Prior to migraine starting patient reports bloodshot eyes. Dhara Ayoub RN documented in this encounter Plan of Treatment Upcoming Encounters Date Type Specialty Care Team Description 08/19/2022 Office Visit Gastroenterology Mirza Vasquez MD [address] [place] [address] (Wo rk) documented as of this encounter Visit Diagnoses Diagnosis Chronic migraine without aura, with intr actable migraine, so stated, without mention of status migrainosus - Primary documented in this encounter Care Teams Engraver Optical Frames Relationship Specialty Start Date End Date Alfonso Tang PCP - General Family Practice 09/04/13 08/12/21 documented as of this encounter
--- OUTSIDE RECORDS SUMMARY | 2022-06-30 09:55 | XMS_ITS | Encounter Summary ---
:1990 Author Organization [facility] Address [address] [place] [address]. [place] [address] Care Team Providers Name Role Phone Alfonso Tang Primary Care Provider Unavailable Reason for Visit Reason Onset Date Comments Previsit 10/27/2013 Encounter Details Date Type Department Care Team Description 10/27/2013 PRE VISIT Medicine GI - 1E Adelso Dawson MD Previsit [facility] [address] [place] [address] 1st Floor, Clinic [address] [place] [phone] Social History Tobacco Use Types Packs/Day Years Used Date Smoking Tobacco: Never Smokeless Tobacco: Never Alcohol Use Standard Drinks/Week Comments No 0 (1 standard drink = 0.6 oz pure alcoho l) Sex Assigned at Date Recorded 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 Reached Patient: No - left message: on voicemail Reason for Visit: Previsit Problem List: Patient Active Problem List Diagnosis Date Noted ??? Chronic migraine without aura, with intractable migraine, so stated, without mention of status migrainosus 10/05/2013 ??? Autonomic nervous system disorder 10/05/2013 ??? Abdominal pain, generalized 10/05/2013 Patient Care Team: Alfonso Tang as PCP - General (Family Practice) Referred by: provider PCP: Alfonso Tang History Substance Use Topics ??? Smoking status: Never Smoker ??? Smokeless tobacco: Never Used ??? Alcohol Use: No Current Outpatient Prescriptions Medication Sig ??? ZOLMitriptan (ZOMIG) 5 MG tablet Take 1 tablet by mouth at onset of headache ??? ondansetron (ZOFRAN-ODT) 4 MG disintegrating tablet Take 1 tablet by mouth as needed ??? Desvenlafaxine Succinate (PRISTIQ) 100 MG TB24 24 hr tablet Take 1 tablet by mouth daily ??? meclizine (ANTIVERT) 25 MG tablet Take 1 tablet by mouth 3 times daily as needed ??? Drospirenone-Ethinyl Estradiol (LIOR PO) Take 1 tablet by mouth daily ??? amoxicillin (AMOXIL) 875 MG tablet Take 1 tablet by mouth 2 times daily ??? Multiple Vitamins-Minerals (WOMENS MULTIVITAMIN PLUS PO) Take 1 tablet by mouth daily ??? Docusate Calcium (STOOL SOFTENER PO) Take by mouth every 48 hours ??? gabapentin (NEURONTIN) 100 MG capsule One three times a day. May increase to 2 three times a dayafter 2 weeks No Known Allergies Preferred Pharmacies: [facility] [address] [place] [address] Patient instructions: Bring outside medical records, images, and/or studies Arrive 15 minutes early If health history form was received in the mail please bring to the appointment, or arrive early to complete health history form if patient did not receive. Called and left message on patient's voicemail reminding them of their appointment on 10/30/2013 at 11;00am . Asked patient to bring their current list of medications and drug allergies. I gave them mynumber to call back if they had any questions, concerns, or need to reschedule. ERY CUTTER documented in this encounter Plan of Treatment Upcoming Encounters Date Type Specialty Care Team Description 08/19/2022 Office Visit Gastroenterology Mirza Vasquez MD [address] [place] [phone] (Wo rk) documented as of this encounter Visit Diagnoses Not on filedocumented in this encounter Care Teams Tool Maker Bench Relationship Specialty Start Date End Date Alfonso Tang PCP - General Family Practice 09/04/13 08/12/21 documented as of this encounter
--- OUTSIDE RECORDS SUMMARY | 2022-06-30 09:55 | XMS_ITS | Encounter Summary ---
:1990 Author Organization [facility] Address [address] [place] [address]. [place] [address] Care Team Providers Name Role Phone Alfonso Tang Primary Care Provider Unavailable Reason for Referral Consultation - Closed Specialty Diagnoses / Procedures Referred By Contact Refer red To Contact Diagnoses Family history of colon cancer Family history of breast cancer in female Adelso Ochoa MD [address] [place] [address] Referral ID Status Reason Start Date Expiration Date Visits Requ ested Visits Authorized [id number] Closed 03/14/2014 09/10/2014 1 1 onsultation - Closed Specialty Diagnoses / Procedures Referred By Contact Refer red To Contact Diagnoses Anal fissure Adelso Ochoa MD [address] [place] [address] Referral ID Status Reason Start Date Expiration Date Visits Requ ested Visits Authorized [id number] Closed 03/14/2014 09/10/2014 1 1 Reason for Visit Reason Comments RECHECK Follow up nausea and abdomin al pain Encounter Details Date Type Department Care Team Description 03/14/2014 Office Visit Medicine GI - 1E Adelso Ochoa MD Constipation (Primary Dx); Ayan Rosas [address] Family history of colon cancer; [place], [place] Abdominal pain; 1st Floor, Clinic 1E [address] Anal fissure; [address] Family [place] [address] Social History Tobacco Use Types Packs/Day Years Used Date Smoking Tobacco: Never Smokeless Tobacco: Never Alcohol Use Standard Drinks/Week Comments No 0 (1 standard drink = 0.6 oz pure alcoho l) Sex Assigned at Date Recorded 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 Last Filed Vital Signs Vital Sign Reading Time Taken Comments Blood Pressure 119/73 03/14/2014 3:40 PM CDT Pulse 81 03/14/2014 3:40 PM CDT Temperature 36.7 ??C (98.1 ??F) 03/14/2014 3:40 PM CDT Respiratory Rate - - Oxygen Saturation 98% 03/14/2014 3:40 PM CDT Inhaled Oxygen Concentration - - Weight 80.5 kg (177 lb 6.4 oz) 03/14/2014 3:40 PM CDT Height 165.1 cm (5' 5) 03/14/2014 3:40 PM CDT Body Mass Index 29.52 03/14/2014 3:40 PM CDT documented in this encounter Patient Instructions Patient InstructionsTeresa Heard RN - 03/14/2014 4:30 PM CDT Colorectal surgery referral -- call [phone] Cancer Risk Management -- call [phone] to schedule For questions regarding your care Wednesday through Wednesday, contact the RN GI care process manager, Teresa Heard at [phone] and leave a voicemail. I will return your call same day or next business day - or you may send a My Chart message. For medication refills (prescribed by the GI clinic), contact your pharmacy. For appointment rescheduling/cancellation, contact scheduling at [phone] After hours, or if you have an immediate GI concern and cannot wait for a return call, contact the GI Fellow at [phone] and select option #4. documented in this encounter Progress Notes Adelso Ochoa MD - 03/15/2014 8:31 AM CDT HISTORY OF PRESENT ILLNESS: Latricia Machado is a 24-year-old woman who presents for followup of multiple gastrointestinal complaints. She has chronic constipation and treats this with MiraLax. Using MiraLax consistently, she has 1 large bowel movement a day. Although the stools are not firm, it does lead to chronic perianal trauma, and she has reopened a fissure. With that, she has significant pain with bowel movements and bleeding. She has been [facility] Theyprovided a prescription for nifedipine and encouraged to increase fiber intake. With this, the fissure nearly healed but not completely. It was recommended that she see them in followup. She has not done that. She denies difficulty transferring material from the rectum. She views the primary problem as just the volume of stool passed. Latricia also has chronic diffuse abdominal pain with nausea. The pain is reduced by TENS unit. She uses this in an on-demand mode. She finds that will reduce the pain level from 7-8 when it gets that high to something about 5. For some reason, pain has decreased recently. She has been having 1 episode of significant pain week as opposed to the usual 2-3 times per week. She has been extensively evaluated since age 13 by [facility], both pediatric and adult division, and also [facility]. The treatment she found helped the best was provided by her primary physician, and it was Reglan. She took it for 8 months. When she developed eye twitching, the medication was stopped. The eye twitching resolved in 2 weeks. She had no other neurologic side effects of the medication. She offers no additional complaints at the present time. PAST MEDICAL HISTORY: Possible mild autonomic nervous system disorder, chronic migraine headache disorder, chronic constipation with abdominal pain that is probable irritable bowel syndrome with constipation. MEDICATIONS: The patient profile in [facility] reviewed. ADVERSE DRUG REACTIONS: Patient profile in [facility] reviewed. FAMILY HISTORY: Pertinent for breast cancer in a maternal aunt at age 42, a grandmother at age 60 and 2 paternal aunts around age 50. Her father has had 2 cancers diagnosis, 1 at less than age 50. SOCIAL HISTORY: Latricia is a nonsmoker. 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 PHYSICAL EXAMINATION: GENERAL: Revealed the patient to be a well-groomed, alert young woman in no acute distress. VITAL SIGNS: As charted in [facility] were noted and were normal. LABORATORY/IMAGING EVALUATION: Since my initial visit with Latricia include C- reactive protein less than 0.5. TSH 0.56. CBC was within normal limits. 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 Documentation of the degree of injury present and alternatives beyond topical nifedipine would be appropriate to consider. I will ask that she be seen in followup for consult by [facility]. Left colonoscopy to define any associated inflammation with the fissure and probably total colonoscopy would be appropriate steps. 2. Chronic abdominal pain with constipation - This fits criteria for chronic undifferentiated abdominal pain. There are not strong features that suggest a motility disorder that would respond to Reglan. With the history of neurologic side effect from Reglan and the family history of breast cancer, I am uncomfortable until we get better definition of her risk in providing domperidone which can lead increased prolactin level and is contraindicated in women with significant family history of breast cancer. It will be interesting to see if more effective emptying of the colon possibly provided by Linzess reduces these symptoms. 3. Family history of early onset breast cancer in multiple relatives and early onset colon cancer. Genetics counseling will provide more information on when she should begin surveillance colonoscopy and also frequency. Genetic testing for both breast and colon cancer maybe indicated. Even her young age, if it is determined she has Verduzco family syndrome, a total colonoscopy would be appropriate. PLAN: 1. Referral to Colorectal Surgery. 2. Continue MiraLax 1 dose daily. 3. Linzess 290 mcg a day. If she notes response, she will stop the MiraLax 4. Referral to genetic counseling. 5. Colonoscopy. Monitored anesthesia care will probably be required for her to have the exam. I willask Colorectal Surgery to perform the exam if they feel the fissure needs to be exam under anesthesia. I also would be willing to perform the exam to follow their evaluation also. Education and counseling was the focus of this visit. We reviewed the various medical problems and the plans. My concerns about her family history and the potential for Verduzco family syndrome was reviewed. Her multiple questions were answered. Total time 40 minutes. Education and counseling time 30 minutes. ADELSO OCHOA MD MT: AILEEN Name: LATRICIA MACHADO MRN: [id number] Account: [id number] : 1990 Service Date: 03/14/2014 Document: [id number] documented in this encounter Nursing Notes Teo Alan CMA - 03/14/2014 3:42 PM CDT Chief Complaint Patient presents with ??? RECHECK Follow up nausea and abdominal pain Filed Vitals: 03/14/14 1540 BP: 119/73 Pulse: 81 Temp: 98.1 ??F (36.7 ??C) TempSrc: Oral Height: 1.651 m (5' 5) Weight: 80.468 kg (177 lb 6.4 oz) SpO2: 98% Body mass index is 29.52 kg/(m^2). Teo Alan MA documented in this encounter Plan of Treatment Upcoming Encounters Date Type Specialty Care Team Description 08/19/2022 Office Visit Gastroenterology Mirza Vasquez MD [address] [place] [address] (Wo rk) Scheduled Referrals Name Type Priority Associated Diagnoses Order S chedule COLORECTAL SURGERY Referral Routine Anal fissure Ordered: 03/14/2014 REFERRAL CANCER RISK MGMT/CANCER Referral Routine Family history of colon Ordered: 03/14/2014 GENETIC COUNSELING cancer REFERRAL Family history of breast cancer in female documented as of this encounter Visit Diagnoses Diagnosis Constipation - Primary Unspecified constipation Family history of colon cancer Family history of malignant neoplasm of gastrointestinal tract Abdominal pain Abdominal pain, unspecified site Anal fissure Family history of breast cancer in femal e Family history of malignant neoplasm of breast documented in this encounter Care Teams Avionics Electrical Engineer Relationship Specialty Start Date End Date Alfonso Tang PCP - General Family Practice 09/04/13 08/12/21 documented as of this encounter
--- OUTSIDE RECORDS SUMMARY | 2022-06-30 09:55 | XMS_ITS | Encounter Summary ---
:1990 Author Organization [facility] Address [address] [place] [address] Care Team Providers Name Role Phone Alfonso Tang Primary Care Provider Unavailable Reason for Visit Reason Onset Date Comments Medication Question 11/29/2013 gabapentin Encounter Details Date Type Department Care Team Description 11/29/[address] [facility] Shoshana Ayoub RN Medication Question Physicians [facility] [phone] (gabapent in) Neurology Clinic (Work) [address] 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 Since increasing gabapentin she has noticed frequency of headaches increased. In the past 11 days she has had 6 days with headaches. She did decrease gabapentin back to 200 mg three times daily as of today. Her concern is that she has not had her menstrual cycle since starting gabapentin in September. She denies . Message sent to Dr Lange. Dhara Ayoub RN documented in this encounter Plan of Treatment Upcoming Encounters Date Type Specialty Care Team Description 08/19/2022 Office Visit Gastroenterology Mirza Vasquez MD [address] [place] [address] (Wo rk) documented as of this encounter Visit Diagnoses Not on filedocumented in this encounter Care Teams C D Area Supervisor Relationship Specialty Start Date End Date Alfonso Tang PCP - General Family Practice 09/04/13 08/12/21 documented as of this encounter
--- OUTSIDE RECORDS SUMMARY | 2022-06-30 09:55 | XMS_ITS | Encounter Summary ---
:1990 Author Organization [facility] Address [address] [place] [address]. [place] [address] Care Team Providers Name Role Phone Alfonso Tang Primary Care Provider Unavailable Reason for Visit Reason Comments Consult Abdominal pain Encounter Details Date Type Department Care Team Description 10/30/2013 Office Visit Medicine GI - 1E Gary Dawson MD Nausea (Primary Dx); Ayan Roass [address] Abdominal pain; Building [place], [place] Constipation 1st Floor, Clinic [address] [place] [id number] Social History Tobacco Use Types Packs/Day Years Used Date Smoking Tobacco: Never Smokeless Tobacco: Never Alcohol Use Standard Drinks/Week Comments No 0 (1 standard drink = 0.6 oz pure alcoho l) Sex Assigned at Date Recorded Female 10/31/2021 7:59 AM LADLE PATCHER documented as of this encounter Last Filed Vital Signs Vital Sign Reading Time Taken Comments Blood Pressure 115/65 10/30/2013 10:41 AM LADLE PATCHER Pulse 95 10/30/2013 10:41 AM LADLE PATCHER Temperature 36.7 ??C (98 ??F) 10/30/2013 10:41 AM LADLE PATCHER Respiratory Rate - - Oxygen Saturation 97% 10/30/2013 10:41 AM LADLE PATCHER Inhaled Oxygen Concentration - - Weight 75.8 kg (167 lb) 10/30/2013 10:41 AM LADLE PATCHER Height 165.1 cm (5' 5) 10/30/2013 10:41 AM LADLE PATCHER Body Mass Index 27.79 10/30/2013 10:41 AM LADLE PATCHER documented in this encounter Patient Instructions Patient InstructionsTeresa Heard RN - 10/30/2013 11:49 AM CST ZARINA from [facility] and [facility] Blood tests today: Inflammation test, blood count, and thyroid test. Start Miralax twice a day Psyllium (generic Metamucil) is always healthy and often soothing for the gut. It improves stool by sopping up water. It gives skinny or loose stool better form and softens hard stool. It supports the normal vineet of the gut. Start with one rounded teaspoon daily After one week increase to two heaping teaspoons daily. After another week, if not good, increase to twice daily. No one feels better on it the first week. Nearly everyone feels better after a month. Twice daily is more often important when taking for loose stool. Mix in water, hot water, or dilute OJ. For questions regarding your care Wednesday through Wednesday, contact the GI rn palliative care, DIAZ Moore at [phone] or MESSI [place] at [phone]. For medication refills (prescribed by the GI clinic), contact your pharmacy. For appointment rescheduling/cancellation, contact scheduling at [phone] For prior authorizations needed for insurance, contact Geovanna at [phone] After hours, or if you have an immediate GI concern and cannot wait for a return call, contact the GI Fellow at [phone] and select option #4. Drink immediately. OK to try capsules (4-6) or Metamucil or Konsyl. OK to find unflavored and try it in oatmeal. (Drink plenty of water.) If stool is soft enough, large enough, but difficult to evacuate, add docusate sodium (Colace) 200 mg or 300 mg daily. E PATCHER documented in this encounter Progress Notes Gary Dawson MD - 10/30/2013 12:32 PM CST CONSULT NOTE ORDERING PROVIDER: Dr. Min Lange. REASON FOR CONSULTATION: Chronic nausea and abdominal pain. HISTORY OF PRESENT ILLNESS: Darin Machado is a 23-year-old woman seen in consult at the request ofDr. Lange for chronic nausea and abdominal pain. These symptoms have been presents for years. She has been extensively evaluated at [facility] [place] [place] and the [facility]. This has included exploratory laparotomy, colonoscopy, upper GI endoscopy and motility testing. Specific results of prior testing and consultation are not available at the time of this visit. She also has been seenat [facility] in the past year for treatment of constipation associated with an analfissure. Darin carries the diagnosis of an autonomic disorder and chronic migraine headaches. The autonomic disorder was diagnosed when she was 13-years old. In addition to gastrointestinal symptoms, she noted episodes of fainting or presyncope. These were brief, and particularly more unlikely if she was required to be in a standing position for a prolonged period. The diagnosis of an autonomics dysfunction was made at the [facility]. She was encouraged to liberalize fluids and salt intake and try knee-hi compressions stockings. No specific cause for abdominal pain was noted. She was sent to a pain rehab program at [facility] and given a TENS unit for abdominal pain. She has been followed at the [facility] periodically sense. Apparently, the last visit was in 2010.Extensive autonomic reflex screening was repeated, including heart rate response with deep breathing, tilt table testing and a Q- sweat test. On records available for Dr. Lange's review, these tests were all normal. Additional testing done at [facility] in 2007 included normal cortisol studies. When last seen by Dr. Serna at the [facility] in 2010, he thought the autonomic dysfunction had resolved. She reports still having 5 episodes of syncope a year. She also has chronic nausea, which has slowlybeen increasing. It does not respond to ondansetron, and metoclopramide caused facial twitching. Shedoes not vomit. She has lost 75 pounds over the past year. She has not lost weight intentionally. The abdominal pain is diffuse and ranges in intensity from 4 to a scale of 10 over a day. She has a bowel movement about every 5 days if she does not take something to facilitate one. She uses stool softener docusate. She took MiraLax once a day for a 4-month period with no benefit. The MiraLax was started by [facility] when she presented with trouble with constipation and complaints of an anal fissure. No imagings was done. She also received a prescription for a cream she applied around the anus twice a day. She does not remember whether it was nitroglycerin cream, diltiazem or Anusolwith hydrocortisone. 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 PAST MEDICAL HISTORY: 1. Chronic undifferentiated abdominal pain. 2. Migraine headache disorders. 3. History of autonomic nervous system disorder. 4. Chronic constipation with recurrent anal fissure. MEDICATIONS: The patient profile in [facility] was reviewed. ADVERSE DRUG REACTIONS: The patient profile in [facility] was reviewed. FAMILY HISTORY: Pertinent for colonic cancer diagnosed in her father at age 51, and he apparently has had a second cancer diagnosed since then. Paternal grandmother had colon cancer diagnosed at age 78. SOCIAL HISTORY: She is a student who is finishing her senior year in college. She is quite concernedabout the impact of these symptoms impairing her ability in the work force. She does not smoke or drink alcohol. REVIEW OF SYSTEMS: Ten systems were reviewed. With the exception of the complaints mentioned above, she is asymptomatic. PHYSICAL EXAMINATION: GENERAL: Revealed the patient to be a well groomed young woman in no acute distress. VITAL SIGNS: Height 5 feet 5 inches, weight 167, blood pressure 115/65, pulse 95, temperature 98, oxygen saturation 97%. HEENT: Exams demonstrated anicteric sclerae, clear oral cavity, no thyromegaly. SKIN: No rashes or stigmata of chronic liver disease. LYMPHATIC: Negative antecubital and supraclavicular adenopathy. CHEST: Lungs clear to P&A. CV: Peripheral pulses are 2+ and symmetrical, no jugular venous distension. No murmurs or extra sounds noted. ABDOMEN: Soft and nontender. I was unable to appreciate masses or organomegaly. EXTREMITIES: No evidence of active inflammation, edema or deformity. NEUROLOGIC: Oriented x3. ASSESSMENT: 1. Chronic constipation with anal fissure. It would be important to review the records of both [facility] and the [facility] evaluations. As this apparent fissure has persisted for a 9-months, the area should be imaged, including at least the left colonoscopy. If she has not received a calcium channel angella in the form of an ointment, she will receive diltiazem cream for 1 month. If the fissure does not resolve with that treatment, would refer to Colorectal Surgery for further evaluation. Pending receipt of outside records, I have encouraged MiraLax twice a day and fiber supplementation. 2. Chronic undifferentiated abdominal pain. The physical exam and history do not suggest a chronic intestinal pseudo-obstruction, nor autonomic dysfunction as the cause for the probable visceral afferent nervous system dysfunction. I am keen to review the [facility] records for prior treatment trialsand their conclusion as to the etiology of the discomfort. 3. Chronic nausea without vomiting. In the absence of vomiting and abdominal distension, it is difficult to cite gastroparesis as the cause for this. With the nausea present on a constant basis, a functional etiology versus a central nervous system etiology does see more likely. Thyroid dysfunction should be considered and excluded. 4. Family history of colon cancer. We should try to obtain more informational about the 2 colon cancers that her father had to see if it qualifies as a Verduzco family syndrome, and if testing for Verduzco syndrome has been performed. If it has, these tests will also be obtained for Darin. PLAN: 1. Sedimentation rate. 2. CBC. 3. TSH level. 4. Release of information to obtain all the gastroenterology records from the [facility] and [facility]. 5. When the records from the above institutions are available, I will review them and decide on further evaluation and followup. 6. MiraLax twice a day along with a tablespoon of soluble fiber. 7. We anticipate a return visit will be scheduled and potentially additional testing performed afterreview of outside records. Education and counseling were an important part of this visit. I indicated how her symptoms are different from that of a chronic intestinal pseudo-obstruction. The importance of reviewing outside records to decide what, if any, additional evaluation was reviewed. Treatment steps to manage anal fissureproceeding up to and including colorectal surgery referral were discussed. cc: MD GARY Santiago MD MT: ALEA Name: DARIN MACHADO MRN: [id number] Account: [id number] : 1990 Service Date: 10/30/2013 Document: [id number] E PATCHER documented in this encounter Nursing Notes 10/30/2013 11:00 AM CST >> ziggy Virgen CMA Mon Oct 30, 2013 10:43 AM Patient presents with: Consult - Abdominal pain 10/30/13 1041 BP: 115/65 Pulse: 95 Temp: 98 ??F (36.7 ??C) TempSrc: Oral Height: 1.651 m (5' 5) Weight: 75.751 kg (167 lb) SpO2: 97% Body mass index is 27.79 kg/(m^2). Ziggy Virgen CMA documented in this encounter Plan of Treatment Upcoming Encounters Date Type Specialty Care Team Description 08/19/2022 Office Visit Gastroenterology Mirza Vasquez MD [address] [place] [address] (Wo rk) documented as of this encounter Procedures Procedure Name Priority Date/Time Associated Diagnosis Comme nts TSH Routine 10/30/2013 12:08 PM Nausea Results for this LADLE PATCHER Abdominal pain procedure are in the results section. CRP INFLAMMATION Routine 10/30/2013 12:08 PM Nausea Results for this LADLE PATCHER Abdominal pain procedure are in the results section. CBC WITH PLATELETS Routine 10/30/2013 12:08 PM Nausea Results for this LADLE PATCHER Abdominal pain procedure are in the results section. documented in this encounter Results TSH (10/30/2013 12:08 PM LADLE PATCHER) P athologist Signature TSH 0.56 0.4 - 5.0 [facility] mU/L [facility] Specimen Anatomical Collection Method Collection Time Receive d Time (Source) Location / / Volume Laterality Blood specimen 10/30/2013 12:08 4 (specimen) PM LADLE PATCHER 12:09 PM LADLE PATCHER Gary Dawson MD LAB - BLOOD ORDERABLES Performing Organization Address City/State/ZIP Code Phon e Number [facility] [address] [place] [address] [facility] CRP inflammation (10/30/2013 12:08 PM LADLE PATCHER) Analysis Performed At Patho logist Time Signature CRP Inflammation <5.0 0.0 - 8.0 [facility] mg/L [facility] Specimen Anatomical Collection Method Collection Time Receive d Time (Source) Location / / Volume Laterality Blood specimen 10/30/2013 12:08 4 (specimen) PM LADLE PATCHER 12:09 PM LADLE PATCHER Gary Dawson MD LAB - BLOOD ORDERABLES Performing Organization Address City/[facility]/ZIP Code Phon e Number [facility] [address] [phone] [facility] CBC with platelets (10/30/2013 12:08 PM LADLE PATCHER) P athologist Signature WBC 4.2 4.0 - 11.0 [facility] 10e9/L [facility] RBC Count 4.46 3.8 - 5.2 [facility] 10e12/L [facility] Hemoglobin 13.5 11.7 - [facility] 15.7 g/dL [facility] Hematocrit 40.1 35.0 - [facility] 47.0 % [facility] MCV 90 78 - 100 [facility] fl [facility]S MCH 30.3 26.5 - [facility] 33.0 pg CAMPUS LABS MCHC 33.7 31.5 - [facility] 36.5 g/dL CAMPUS [facility]S RDW 12.7 10.0 - [facility] 15.0 % [facility]S Platelet Count 208 150 - 450 [facility] 10e9/L [facility] Specimen Anatomical Collection Method Collection Time Receive d Time (Source) Location / / Volume Laterality Blood specimen 10/30/2013 12:08 4 (specimen) PM LADLE PATCHER 12:09 PM LADLE PATCHER Gary Dawson MD LAB - BLOOD ORDERABLES Performing Organization Address City/[facility]/ZIP Code Phon e Number [facility] [address] [place] [address] [facility] documented in this encounter Visit Diagnoses Diagnosis Nausea - Primary Nausea alone Abdominal pain Abdominal pain, unspecified site Constipation Unspecified constipation documented in this encounter Care Teams Postal Mail Carrier Relationship Specialty Start Date End Date Alfonso Tang PCP - General Family Practice 09/04/13 08/12/21 documented as of this encounter
--- OUTSIDE RECORDS SUMMARY | 2022-06-30 09:55 | XMS_ITS | Encounter Summary ---
:1990 Author Organization [facility] Address [address] [place] [id number] Care Team Providers Name Role Phone Alfonso Tang Primary Care Provider Unavailable Dayanara Bee MD Unavailable Min Lange MD Unavailable Unavailable Marlo Madsen MD Unavailable Mel Buckley RN Unavailable Encounter Details Date Type Department Care Team Description 10/15/2011 Records - [address] [phone] Social History Tobacco Use Types Packs/Day Years Used Date Smoking Tobacco: Never Assessed Sex Assigned at Date Recorded Female 10/31/2021 7:59 AM OIL SCOUT documented as of this encounter Plan of Treatment Upcoming Encounters Date Type Specialty Care Team Description 08/19/2022 Office Visit Gastroenterology Mirza Vasquez MD [address] [place], [place] [phone] (Wo rk) documented as of this encounter Procedures Procedure Name Priority Date/Time Associated Diagnosis Comme nts MR BRAIN W/O Routine 10/16/2011 12:00 AM Results for this CONTRAST OIL SCOUT procedure are i n the results section. CT HEAD W/O Routine 10/15/2011 12:00 AM Results for this CONTRAST OIL SCOUT procedure are i n the results section. CT CERVICAL SPINE Routine 10/15/2011 12:00 AM Res ults for this W/O CONTRAST OIL SCOUT procedure are i n the results section. documented in this encounter Results MR Brain w/o Contrast (10/16/2011 12:00 AM OIL SCOUT) Anatomical Region Laterality Modality Head, SUBRAD MR NEURO, UMP MR NEURO, RAD MR Other Specimen (Source) Anatomical Location Collection Method / Collectio n Time Received Time / Laterality Volume Narrative 10/16/2011 12:00 AM OIL SCOUT See Historical Hospital Medical Record f or documentation Procedure Note Provider, Historical - 02/13/2021Formatt ing of this note might be different from the original. See Historical Hospital Medical Record f or documentation Historical Provider IMG MRI ORDERABLES CT Cervical Spine w/o Contrast (10/15/2011 12:00 AM OIL SCOUT) Anatomical Region Laterality Modality Spine, SUBRAD CT NEURO, SUBRAD CT NEURO, UMP CT SPINE, Computed Tomography RAD CT Specimen (Source) Anatomical Location Collection Method / Collectio n Time Received Time / Laterality Volume Narrative 10/15/2011 12:00 AM OIL SCOUT See Historical Hospital Medical Record f or documentation Procedure Note Provider, Historical - 02/13/2021Formatt ing of this note might be different from the original. See Historical Hospital Medical Record f or documentation Historical Provider IMG CT ORDERABLES CT Head w/o Contrast (10/15/2011 12:00 AM OIL SCOUT) Anatomical Region Laterality Modality Head, SUBRAD CT NEURO, SUBRAD CT NEURO, UMP CT NEURO, Computed Tomography RAD CT Specimen (Source) Anatomical Location Collection Method / Collectio n Time Received Time / Laterality Volume Narrative 10/15/2011 12:00 AM OIL SCOUT See Historical Hospital Medical Record f or documentation Procedure Note Provider, Historical - 02/13/2021Formatt ing of this note might be different from the original. See Historical Hospital Medical Record f or documentation Historical Provider IMG CT ORDERABLES documented in this encounter Visit Diagnoses Not on filedocumented in this encounter Care Teams Systems Librarian Relationship Specialty Start Date End Date Alfonso Tang PCP - General Family Practice 09/04/13 08/12/21 Dayanara Bee MD MD Pediatrics 12/26/[address] [place] [address] [address] [place] [address] Min Lange MD MD Neurology 03/30/16 Marlo Mdasen MD Cardiology 10/27/[address] [place] [phone] Mel Buckley, RN Nurse Coordinator Physical Medicine and 12/02/16 Rehabilitation documented as of this encounter
--- OUTSIDE RECORDS SUMMARY | 2022-06-30 09:55 | XMS_ITS | Encounter Summary ---
:1990 Author Organization [facility] Address [address] [place] [address]. [place] [address] Care Team Providers Name Role Phone Alfonso Tang Primary Care Provider Unavailable Reason for Visit Reason Comments Consult Anal Fissure Encounter Details Date Type Department Care Team Description 03/21/2014 Office Visit Colon and Rectal von Johnie Marwitz, Anal fi ssure (Primary Dx); Surgery Clinic Supriya Serrato APRN Constipation [place] [facility] Building [address] [facility] 1st Floor, Clinic [address] [place], [place] [id number] [place] [address] (Wo rk) [id number] [phone] Social History Tobacco Use Types Packs/Day Years Used Date Smoking Tobacco: Never Smokeless Tobacco: Never Alcohol Use Standard Drinks/Week Comments No 0 (1 standard drink = 0.6 oz pure alcoho l) Sex Assigned at Date Recorded Female 10/31/2021 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 Diltiazem ointment 2% to be applied 3 times daily for 8 weeks 2. Continue bowel regimen per Dr. Dawson. If able, increase both dietary fiber and fiber supplement todecrease leakage of moisture in the perianal area which may be contributing to your itching and skinbreakdown 3. Tuck a gauze between your buttocks to wick away moisture 4. May use Calmoseptine cream (over the counter) for itching and to protect skin 5. Follow up in 4 weeks. Will discuss further intervention for fissure if diltiazem is not improvingsymptoms after 4 weeks 6. Use wet wipes rather than toilet paper. May also try washing and then using a blow dryer to avoidtrauma of wiping with toilet paper. 7. Try wearing only cotton underwear 8. Avoid perfume-containing soaps (can try Dove soap). documented in this encounter Progress Notes Supriya Hadley CNP - 03/21/2014 3:39 PM CDT Colon and Rectal Surgery Consult Clinic Note Date: 03/21/2014 Referring provider: Adelso Dawson MD [address] [address] RE: Latricia Machado : 1990 FAWN: 03/21/2014 Latricia Machado is a very pleasant 24 year old female with a significant past medical history of chronic constipation, abdominal pain, and autonomic nervous system disorder with a recent diagnosis ofanal fissure. Given these findings they were subsequently sent to the [facility] for an opinion on this and a new patient consultation. HPI: Ms. Machado developed an anal fissure about one year ago. She was seen at [facility] and started on topical nifedipine. She tolerated this well and felt that her fissurehad begun to heal. She had several large bowel movements, however, and the fissure reopened. She hadnot followed up with them recently. She is following with Dr. Dawson for her chronic constipation. Sheis currently on daily Metamucil, Miralax, and Linzess. She has one soft bowel movement a day now butstates that it is large. This causes pain and bleeding. The pain is sharp with bowel movements and she has residual throbbing pain for about 45 minutes after bowel movements. The bleeding is always bright red and only with wiping. She feels that she has bleeding of the perianal skin also. She uses baby wipes for this. She feels that her perianal skin is always moist and is frequently itchy. She denies any incontinence of stool or flatus. She had a colonoscopy in 2004, which was normal. Her father had colon cancer at age 51. She additionally has a family history of breast cancer in a maternal aunt, three paternal aunts, and her paternalgrandmother. She is seeing a genetic counselor in the next few weeks as advised by Dr. Dawson. Assessment/Plan: 24 year old female with a significant past medical history of chronic constipation,abdominal pain, and autonomic nervous system disorder with a recent diagnosis of anal fissure. She responded well previously to nifedipine but did not have complete healing of her fissure in the setting of chronic constipation. She feels her constipation is much better controlled at this time and she has one large soft bowel movement a day. On exam, she has a very superficial anal fissure in the posterior midline without bleeding. Her sphincter is quite tight making visualization of the fissure difficult. Since this appears very superficial at this time and she responded well to topical treatment in the past, recommended we try topical treatment again with good control of constipation. Will try this for 4 weeks but if her symptoms do not improve will discuss possible Botox injections. Additionally, her perianal skin has lichenification and excoriation. She denies any incontinence butfeels the skin is always moist and itchy. Would like her to try to bulk up her stools more to decrease leakage of mucous and will try to protect and heal her skin in the meantime. She had previously discussed having a possible colonoscopy with Dr. Dawson. Would like her fissure to heal prior to this. 1. Diltiazem ointment 2% to be applied 3 times daily for 8 weeks 2. Continue bowel regimen per Dr. Dawson. If able, increase both dietary fiber and fiber supplement todecrease leakage of moisture in the perianal area which may be contributing to your itching and skinbreakdown 3. Tuck a gauze between your buttocks to wick away moisture 4. May use Calmoseptine cream (over the counter) for itching and to protect skin 5. Follow up in 4 weeks. Will discuss further intervention for fissure if diltiazem is not improvingsymptoms after 4 weeks 6. Use wet wipes rather than toilet paper. May also try washing and then using a blow dryer to avoidtrauma of wiping with toilet paper. 7. Try wearing only cotton underwear 8. Avoid perfume-containing soaps (can try Dove soap). Patient's questions were answered to her stated satisfaction and she is in agreement with this plan. Medical history: Past Medical History Diagnosis Date ??? Autonomic dysfunction ??? Migraines ??? PCOS (polycystic ovarian syndrome) ??? Anesthesia complication sensitivity Surgical history: Past Surgical History Procedure Laterality Date ??? C exploratory of abdomen Problem list: Patient Active Problem List Diagnosis Date Noted ??? Syncope 01/25/2014 Priority: Medium ??? Chronic migraine without aura, with intractable migraine, so stated, without mention of status migrainosus 10/05/2013 ??? Autonomic nervous system disorder 10/05/2013 ??? Abdominal pain, generalized 10/05/2013 Medications: Current Outpatient Prescriptions Medication Sig Dispense Refill ??? diltiazem 2% in PLO cream, FV COMPOUNDED, 2% GEL To anal opening three times daily. Use a pea-sized amount. Store at room temperature. 60 g 0 ??? zonisamide (ZONEGRAN) 25 MG capsule One at night for one week, then 2 at night for one week, then 3 at night 90 capsule 1 ??? eletriptan (RELPAX) 40 MG tablet Take 1 tablet (40 mg) by mouth at onset of headache for migraine (May repeat in 2 hours if needed) 12 tablet 1 ??? linaclotide (LINZESS) 290 MCG capsule Take 1 capsule (290 mcg) by mouth every morning (before breakfast) 30 capsule 2 ??? psyllium (METAMUCIL) 58.6 % POWD Take by mouth daily ??? fludrocortisone (FLORINEF) 0.1 MG tablet Take 1 tablet (0.1 mg) by mouth daily 90 tablet 3 ??? polyethylene glycol (MIRALAX) powder 1 capful [...] Take 1 tablet by mouth daily Allergies: Not on File Family history: Family History Problem Relation Age of Onset ??? Colon Polyps grandfather ??? Crohn's Disease No family hx of ??? Ulcerative Colitis No family hx of ??? Colon CA Father ??? Cancer breast Social history: History Substance Use Topics ??? Smoking status: Never Smoker ??? Smokeless tobacco: Never Used ??? Alcohol Use: No Marital status: single. 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 Consult Anal Fissure Filed Vitals: 03/21/14 1342 BP: 118/74 Pulse: 82 Temp: 97.6 ??F (36.4 ??C) TempSrc: Oral Height: 1.651 m (5' 5) Weight: 81.012 kg (178 lb 9.6 oz) SpO2: 97% Body mass index is 29.72 kg/(m^2). WAYNE Jones Lena M, RN 03/21/2014 3:17 PM Signed OBSTETRIC HISTORY Number of pregnancies: 0 Number of C-sections: 0 Number vaginal delivery: 0 Injury? 0 COLORECTAL-SPECIFIC REVIEW OF SYSTEMS: Abdominal Pain? Yes Vomiting blood? Yes Constipation? Better with current medication Diarrhea? No Blood in stool? No Painful bowel movements? No Pelvic pain? No Anal pain? No Liver disease? No Number of bowel movements daily? 1 Previous colonoscopy? Yes, date: 2004 Findings: normal Where? [facility] OTHER REVIEW OF SYSTEMS: Constitutional: Weight change? Yes - Up Fevers or chills? No Hematologic: Anemia/Other Blood Problems? No Frequent bruising? Yes Blood clots in legs or lungs? No Endocrine: Thyroid problems? No Diabetes? Pre-diabetic HEENT: Loss of vision? No Diminished hearing? No Throat or sinus problems? No Cardiac: Chest pain? No Heart attack? No High cholesterol? Yes Palpitations? No High Blood Pressure? No Leg Swelling? Due to meds Respiratory: Difficulty breathing? No Sleep apnea? No Genitourinary/Renal: Postmenopausal? No weight control engineer problems? PCOS Urinary tract infections? No Kidney problems? No Urinary incontinence? No Musculoskeletal/Dermatologic: Joint problems or back problems? No Skin problems? exzema Neurologic: Headaches? No Stroke? No Seizure/Nerve problems? No Psychiatric: Depression? Yes Anxiety? Yes Physical Examination: BP 118/74 Pulse 82 Temp(Src) 97.6 ??F (36.4 ??C) (Oral) Ht 1.651 m (5' 5) Wt 81.012 kg (178lb 9.6 oz) BMI 29.72 kg/m2 SpO2 97% General: alert and oriented, in no acute distress, sitting comfortably HEENT: mucous membranes moist Abdomen: soft, non distended, non tender to palpation, no masses or hepatosplenomegaly, no rebound or guarding Perianal external examination: Perianal skin: moist with excoriation and some skin erosions. Lesions: No. Eversion of buttocks: There was evidence of an anal fissure. Details: Superficial posterior midline anal fissure between skin folds. Sphincter very tight on exam, making visualization of fissure difficult. No bleeding on exam. Some pain with eversion of buttocks. Skin tags or external hemorrhoids: No. Digital rectal examination: Was deferred in order not to cause further trauma. Anoscopy: Was deferred in order not to cause further trauma. Total face to face time was 30 minutes, >50% counseling. Supriya Hadley RN, DISPATCHER RADIOACTIVE WASTE DISPOSAL-C Colon and Rectal Surgery [facility] documented in this encounter Nursing Notes Damari Rodriguez RN - 03/21/2014 3:12 PM CDT OBSTETRIC HISTORY Number of pregnancies: 0 Number of C-sections: 0 Number vaginal delivery: 0 Injury? 0 COLORECTAL-SPECIFIC REVIEW OF SYSTEMS: Abdominal Pain? Yes Vomiting blood? Yes Constipation? Better with current medication Diarrhea? No Blood in stool? No Painful bowel movements? No Pelvic pain? No Anal pain? No Liver disease? No Number of bowel movements daily? 1 Previous colonoscopy? Yes, date: 2004 Findings: normal Where? [facility] OTHER REVIEW OF SYSTEMS: Constitutional: Weight change? Yes - Up Fevers or chills? No Hematologic: Anemia/Other Blood Problems? No Frequent bruising? Yes Blood clots in legs or lungs? No Endocrine: Thyroid problems? No Diabetes? Pre-diabetic HEENT: Loss of vision? No Diminished hearing? No Throat or sinus problems? No Cardiac: Chest pain? No Heart attack? No High cholesterol? Yes Palpitations? No High Blood Pressure? No Leg Swelling? Due to meds Respiratory: Difficulty breathing? No Sleep apnea? No Genitourinary/Renal: Postmenopausal? No weight control engineer problems? PCOS Urinary tract infections? No Kidney problems? No Urinary incontinence? No Musculoskeletal/Dermatologic: Joint problems or back problems? No Skin problems? exzema Neurologic: Headaches? No Stroke? No Seizure/Nerve problems? No Psychiatric: Depression? Yes Anxiety? Yes Ziggy Virgen CMA - 03/21/2014 1:42 PM CDT Chief Complaint Patient presents with ??? Consult Anal Fissure Filed Vitals: 03/21/14 1342 BP: 118/74 Pulse: 82 Temp: 97.6 ??F (36.4 ??C) TempSrc: Oral Height: 1.651 m (5' 5) Weight: 81.012 kg (178 lb 9.6 oz) SpO2: 97% Body mass index is 29.72 kg/(m^2). Ziggy Virgen CMA documented in this encounter Plan of Treatment Upcoming Encounters Date Type Specialty Care Team Description 08/19/2022 Office Visit Gastroenterology Mirza Vasquez MD [address] [place] [id number] (Wo rk) documented as of this encounter Visit Diagnoses Diagnosis Anal fissure - Primary Constipation Unspecified constipation documented in this encounter Care Teams Cane Flume Watchman Relationship Specialty Start Date End Date Alfonso Tang PCP - General Family Practice 09/04/13 08/12/21 documented as of this encounter
--- OUTSIDE RECORDS SUMMARY | 2022-06-30 09:55 | XMS_ITS | Encounter Summary ---
:1990 Author Organization [facility] Address [address] [place] [address]. [place] [address] Care Team Providers Name Role Phone Alfonso Tang Primary Care Provider Unavailable Reason for Visit Reason Comments RECHECK anal fissure Encounter Details Date Type Department Care Team Description 04/23/2014 Office Visit Colon and Rectal [facility], Pruritu s ani (Primary Surgery Clinic Supriya Serrato, HEDIS MANAGER Dx) Ayan Rosas [facility] Building [address] [facility] 1st Floor, Clinic [address] [place], [place] [id number] [place] [address] (Wo rk) [phone] Social History Tobacco Use Types Packs/Day Years Used Date Smoking Tobacco: Never Smokeless Tobacco: Never Alcohol Use Standard Drinks/Week Comments No 0 (1 standard drink = 0.6 oz pure alcoho l) Sex Assigned at Date Recorded 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 documented as of this encounter Last Filed Vital Signs Vital Sign Reading Time Taken Comments Blood Pressure 99/70 04/23/2014 8:57 AM CDT Pulse 90 04/23/2014 8:57 AM CDT Temperature - - Respiratory Rate - - Oxygen Saturation 97% 04/23/2014 8:57 AM CDT Inhaled Oxygen Concentration - - Weight 79.7 kg (175 lb 12.8 oz) 04/23/2014 8:57 AM CDT Height 165.1 cm (5' 5) 04/23/2014 8:57 AM CDT Body Mass Index 29.25 04/23/2014 8:57 AM CDT documented in this encounter Progress Notes Supriya Hadley, LISA - 04/23/2014 9:43 AM CDT Colon and Rectal Surgery Follow Up Clinic Note Referring provider: Adelso Dawson MD [address] [address] RE: Latricia Machado : 1990 FAWN: 04/23/14 Latricia Machado is a very pleasant 24 year old female with a significant past medical history of chronic constipation, abdominal pain, and autonomic nervous system disorder who was seen in clinic on 03/21/14 with anal fissure and presents today for follow up. HPI: Ms. Machado has been using diltiazem three times a day until about one week ago. She no longer has pain or bleeding with bowel movements. She feels her fissure is healed. She continues to have itching and perianal irritation. She feels as though this sometimes bleeds. She has been using Calmoseptine which is helpful but does not last very long. She uses wet wipes instead of toilet paper. She has been tucking gauze between her buttocks and this comes out wet. She has not noted any difference in pruritus with dietary modifications. She uses Dove only soap and is not washing between her buttocks and wears cotton only underwear. Her constipation is much better controlled now. She is having 1-2 l oose bowel movements a day with the use of Linzess. She stopped taking Miralax and Metamucil since this has been working well. She has about one formed bowel movement a week. She had a colonoscopy in 2004, which was normal. She met with a genetic counselor given her family history of colon and breast cancer. Assessment/Plan: 24 year old female with a significant past medical history of chronic constipation,abdominal pain, and autonomic nervous system disorder with healed anal fissure and pruritus ani. Herfissure appears healed on exam and she is no longer having any pain or bleeding with bowel movements. Her constipation is well controlled with Linzess. She continues to have pruritus ani and her perianal skin has lichenification and excoriation consistent with this. She has quite a bit of moisture on the gauze she tucks between her buttocks. Recommended she restart a fiber supplement to bulk up her stools to see if this decreases moisture. Continue tucking gauze between buttocks and using Calmoseptine as needed. As fissure is now healed, colonoscopy okay at this time and recommended given family history. She would like to discuss this with Dr. Dawson prior to scheduling. Would like her to follow up in 4 weeks if her symptoms persist. She can otherwise follow up as needed. Medical history: Past Medical History Diagnosis Date [...] by mouth daily Allergies: No Known Allergies Family history: Family History Problem Relation Age [...] graduate school Nursing Notes: Ziggy Virgen CMA 04/23/2014 9:00 AM Signed Chief Complaint Patient presents with ??? RECHECK anal fissure Filed Vitals: 04/23/14 0857 BP: 99/70 Pulse: 90 Height: 1.651 m (5' 5) Weight: 79.742 kg (175 lb 12.8 oz) SpO2: 97% Body mass index is 29.25 kg/(m^2). Ziggy Virgen CMA Physical Examination: BP 99/70 Pulse 90 Ht 1.651 m (5' 5) Wt 79.742 kg (175 lb 12.8 oz) BMI 29.25 kg/m2 SpO2 97% General: alert and oriented, in no acute distress, sitting comfortably HEENT: mucous membranes moist Abdomen: soft, non distended, non tender to palpation, no masses or hepatosplenomegaly, no rebound or guarding Perianal external examination: Perianal skin: moist with lichenification, excoriation and some skin fissuring. Lesions: No. Eversion of buttocks: There was no evidence of an anal fissure. Skin tags or external hemorrhoids: No. Digital rectal examination: Was deferred. Anoscopy: Was deferred. Total face to face time was 20 minutes, >50% counseling. Supriya Hadley RN, PROJECT ACCOUNT MANAGER-C Colon and Rectal Surgery [facility] documented in this encounter Nursing Notes Ziggy Virgen CMA - 04/23/2014 8:59 AM CDT Chief Complaint Patient presents with ??? RECHECK anal fissure Filed Vitals: 04/23/14 0857 BP: 99/70 Pulse: 90 Height: 1.651 m (5' 5) Weight: 79.742 kg (175 lb 12.8 oz) SpO2: 97% Body mass index is 29.25 kg/(m^2). Ziggy Virgen CMA documented in this encounter Plan of Treatment Upcoming Encounters Date Type Specialty Care Team Description 08/19/2022 Office Visit Gastroenterology Mizra Vasquez MD [address] [place] [id number] (Wo rk) documented as of this encounter Visit Diagnoses Diagnosis Pruritus ani - Primary documented in this encounter Care Teams Welding Pantograph Machine Operator Relationship Specialty Start Date End Date Alfonso Tang PCP - General Family Practice 09/04/13 08/12/21 documented as of this encounter
--- OUTSIDE RECORDS SUMMARY | 2022-06-30 09:55 | XMS_ITS | Encounter Summary ---
:1990 Author Organization [place] Address [address] [place] [address]. [place] [address] Care Team Providers Name Role Phone Alfonso Tang Primary Care Provider Unavailable Reason for Visit Reason Comments RECHECK migraine headache Encounter Details Date Type Department Care Team Description 06/28/2014 Office Visit Min [place] Chronic m igraine [place] [facility] without aura, with [facility] Neurology intractabl e migraine, Clinic so stated, without [address], mention of status [address] [place] [address] Social History Tobacco Use Types Packs/Day Years Used Date Smoking Tobacco: Never Smokeless Tobacco: Never Tobacco Cessation: Counseling Given: No Alcohol Use Standard Drinks/Week Comments No 0 (1 standard drink = 0.6 oz pure alcoho l) Sex Assigned at Date Recorded 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 This is followup for intractable migraine. She also has a history of recurrent syncope and dysautonomia. Since I saw her in March, she did start on Zonegran. She is tolerating the drug well and it definitely has helped reduce the frequency of her headaches. She is now having a migraine every 3 weeks, although recently she had a headache that persisted 8 days. She went to [facility] and had a head CT scan done. She tells me it was negative and I will be getting that report. She was placed on an8-day course of prednisone by Dr. Chávez and the headache broke. Her Zonegran dose was increased to 100 mg a day. Unfortunately, Relpax, as has been the case with other oral triptans, was ineffective. I again note that she has previously tried gabapentin, Topamax and Depakote for migraine control. She did see Dr. Marlo Madsen for further evaluation and treatment of her dysautonomia with posturaldizziness and syncope. He made a number of recommendations that I reviewed with her and which she for the most part is following. She does feel that this has been helpful. She has also been started on Florinef. Examination today reveals her heart rate is 88. Blood pressure 116/86. Funduscopic examination reveals sharp disc margins. Visual andersen are intact. Cranial nerves II-XII are intact. Motor, sensory, cerebellar and gait testing are normal. Reflexes are 2-3+ and symmetric. Plantar responses are flexor. IMPRESSION: Intractable migraine. PLAN: There has been some improvement in terms of headache frequency since Zonegran was initiated and she will continue on the current dose of 100 mg. She has failed multiple oral triptans for acute management and is now interested in trying Imitrex injection. I reviewed side effects with her and pointed out that with the injectable triptan the side effects can sometimes be more intense. She is aware of this. I did provide her with diet sheet for patients with migraine that we reviewed together. I am going to get a followup CBC and basic metabolic panel as she will be continuing on Zonegran. ADDENDUM : CBC and BMP from 06/29/14 Normal. I did receive the head CT scan report from [facility] dated 06/22/2014. It was a negativestudy. I am going to see her back in 3 months. ADDENDUM 07/02/14: Another bad migraine. Imitrex injection no help and had to go to ER. Will refer to Dr Peacock for consideration of Botox Rx. Increase Zonegran to 125 mg. Sincerely, MD MIN Le MD MT: AKA Name: LATRICIA MACHADO Account: [id number] : 1990 Service Date: 06/28/2014 Document: [id number] documented in this encounter Nursing Notes Eagle Bos[place] LPN - 06/28/2014 2:31 PM CDT Chief Complaint Patient presents with ??? RECHECK migraine headache Return pt here for migraine headache. Pt reports a stretch of seven days recently with daily headaches resulting in two visits to the ER on 06/20/14 and 06/22/14. Pt reports no symptoms since 06/23/14. Eagle Bosch LPN documented in this encounter Plan of Treatment Upcoming Encounters Date Type Specialty Care Team Description 08/19/2022 Office Visit Gastroenterology Mirza Vasquez MD [address] [place] [address] [phone] (Wo rk) documented as of this encounter Visit Diagnoses Diagnosis Chronic migraine without aura, with intr actable migraine, so stated, without mention of status migrainosus documented in this encounter Care Teams French Cord Binder Relationship Specialty Start Date End Date Alfonso Tang PCP - General Family Practice 09/04/13 08/12/21 documented as of this encounter
--- OUTSIDE RECORDS SUMMARY | 2022-06-30 09:55 | XMS_ITS | Encounter Summary ---
:1990 Author Organization [place] Address [address] [place] [address]. [place] [address] Care Team Providers Name Role Phone Alfonso Tang Primary Care Provider Unavailable Encounter Details Date Type Department Care Team Description 06/19/[address] 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 She has had migraine for the last 4 days. She is on zonegran 75 per day. relpax has not been helpful. Currently taking ibuprofen and tylenol for pain. Going to class, but otherwise lying in bed using ice pack. I discussed with her the past treatments that have failed. At this point recommend taking extra 50 mg of zonegran now, increase daily dose to 100 mg, and call tomorrow with progress report. documented in this encounter Plan of Treatment Upcoming Encounters Date Type Specialty Care Team Description 08/19/2022 Office Visit Gastroenterology Mirza Vasquez MD [address] [place] [address] (Wo rk) documented as of this encounter Visit Diagnoses Not on filedocumented in this encounter Care Teams Final Inspector Balance Wheel Relationship Specialty Start Date End Date Alfonso Tang PCP - General Family Practice 09/04/13 08/12/21 documented as of this encounter
--- OUTSIDE RECORDS SUMMARY | 2022-06-30 09:55 | XMS_ITS | Encounter Summary ---
:1990 Author Organization [place] Address [address] [place] [address]. [place] [address] Care Team Providers Name Role Phone LorrainejoeAlfonso walker Primary Care Provider Unavailable Reason for Visit Reason Onset Date Comments Previsit 01/04/2014 ortho b/p, EKG- dysa utonomia/tachy, evaluated at [facility] Encounter Details Date Type Department Care Team Description 01/04/2014 PRE VISIT [facility] Marlo Madsen (ortho b/p, Physicians Anastasia Carlos MD EKG- Botello Wangensteen [address] [facility] dysautonomia/tachy, [address] evaluated at [place]) 4th Floor, Clinic [address] [facility] [address] [place] [address] [place] [address] Social History Tobacco Use Types Packs/Day Years Used Date Smoking Tobacco: Never Smokeless Tobacco: Never Alcohol Use Standard Drinks/Week Comments No 0 (1 standard drink = 0.6 oz pure alcoho l) Sex Assigned at Date Recorded 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 Miscellaneous Notes Telephone Encounter - Mandy Rajput RN - 01/04/2014 4:44 PM CDT 2011: [facility]: Autonomic screen/Sweat test: -all testing normal 2008: [facility]: Consult: autonomic dysfunction, depression, migraines documented in this encounter Plan of Treatment Upcoming Encounters Date Type Specialty Care Team Description 08/19/2022 Office Visit Gastroenterology Mirza Vasquez MD [address] [place] [address] (Wo rk) documented as of this encounter Visit Diagnoses Diagnosis 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
--- OUTSIDE RECORDS SUMMARY | 2022-06-30 09:56 | XMS_ITS | Encounter Summary ---
:1990 Author Organization [place] Address [address] [place] [address] Care Team Providers Name Role Phone Alfonso Tang Primary Care Provider Unavailable Dayanara Bee MD Unavailable Min Lange MD Unavailable Unavailable Marlo Madsen MD Unavailable Mel Buckley RN Unavailable Encounter Details Date Type Department Care Team Description 05/15/2011 Records - [facility] Fang Gacria, [facility] Treasure GAUTHIER [address] [phone] Social History Tobacco Use Types Packs/Day Years Used Date Smoking Tobacco: Never Assessed Sex Assigned at Date Recorded 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 documented in this encounter Results Celiac (Gluten) Antibody Panel (05/15/2011 3:27 PM CDT) Analysis Performed At [facility] Time Signature Immunoglobulin A 135 65 - 400 05/15/2011 [facility] mg/dL 3:27 PM CDT [facility] Comment: ?? Positive results for the tTG and/or gliadin antibodies indicate ?? possible celiac disease and a small intestinal biopsy may be ?? indicated. Antibody levels decrease in patients on gluten-free ?? diets; therefore, negative results d o not exclude celiac disease. ?? Total serum IgA is measured to ident karl selective IgA deficiency, ?? which is present in up to 10% of marco iac disease patients. Such ?? patients would have negative results on IgA assays, but may have ?? positive results on IgG antibody ass ays. Deamidated Gliadin 0.7 <10.1 U/mL 05/15/2011 3:27 PM [facility]. Antibody IgA CDT [facility] Tissue Transglutaminase 0.4 <10.1 U/mL 05/15/2011 3 :27 PM [facility]. Antibody IgA CDT [facility] Deamidated Gliadin <0.4 <10.1 U/mL 05/15/2011 3:27 PM [facility]. Antibody IgG CDT [facility] Comment: Gliadin Interp. ? < 7 U/mL = Negative ?7-10 U/mL = Equivocal ?> 10 U/mL = Positive Tissue Transglutaminase <0.6 <10.1 U/mL 05/15/2011 3 :27 PM [facility]. Antibody IgG CDT [facility] Comment: Tissue Transglutam. ? (tTG) Interp. ? < 7 U/mL = Negative ?7-10 U/mL = Equivocal ?> 10 U/mL = Positive Specimen Anatomical Collection Method Collection Time Receive d Time (Source) Location / / Volume Laterality 05/15/2011 3:27 PM 1 3:27 CDT PM CDT Fang Garcia MD LAB - BLOOD ORDERABLES Performing Organization Address [facility] Phon [place] [address] [phone] [address] [facility] documented in this encounter Visit Diagnoses Not on filedocumented in this encounter Care Teams Wildlife Veterinarian Relationship Specialty Start Date End Date Alfonso Tang PCP - General Family Practice 09/04/13 08/12/21 Dayanara Bee MD MD Pediatrics 12/26/[address] [place] [address] [address] [place] [address] Min Lange MD MD Neurology 03/30/16 Marlo Madsen MD Cardiology 10/27/[address] [place], [place] [address] [place], [place] [address] Mel Buckley, RN Nurse Coordinator Physical Medicine and 12/02/16 Rehabilitation documented as of this encounter
--- OUTSIDE RECORDS SUMMARY | 2022-06-30 09:56 | XMS_ITS | Encounter Summary ---
:1990 Author Organization [place] [facility] Address [address] [place] [address] Care Team Providers Name Role Phone Alfonso Tang Primary Care Provider Unavailable Dayanara Bee MD Unavailable Min Lange MD Unavailable Unavailable Marlo Madsen MD Unavailable Mel Buckley RN Unavailable Encounter Details Date Type Department Care Team Description 04/09/2009 Records - [facility] Alfonso Mccracken RETIRED 1981 [facility] [address] [place] [phone] Social History Tobacco Use Types Packs/Day Years Used Date Smoking Tobacco: Never Assessed Sex Assigned at Date Recorded 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 documented in this encounter Results Hemoglobin A1c (04/09/2009 11:45 AM CDT) P athologist Signature Hemoglobin A1C 5.5 3.5 - 6.0 04/09/2009 HEALTH % 11:45 AM CDT [facility] Specimen Anatomical Collection Method Collection Time Receive d Time (Source) Location / / Volume Laterality 04/09/2009 11:45 04/09/2009 AM CDT 11:45 AM CDT Alfonso Tang LAB - BLOOD ORDERABLES Performing Organization Address City/State/[facility] Code Phon e Number [facility] [place] [address] [address] [facility] [address] documented in this encounter Visit Diagnoses Not on filedocumented in this encounter Care Teams Swine Extension Field Specialist Relationship Specialty Start Date End Date Alfonso Tang PCP - General Family Practice 09/04/13 08/12/21 Dayanara Bee MD MD Pediatrics 12/26/[address] [place] [address] [address] [place] [address] Min Lange MD MD Neurology 03/30/16 Marlo Madsen MD Cardiology 10/27/[address] [place] [address] Mel Buckley, RN Nurse Coordinator Physical Medicine and 12/02/16 Rehabilitation documented as of this encounter
[2022-06-30 15:41] LABS: Albumin* 4.6 g/dL (3.3-5.0); Chloride* 99 mmol/L (96-114); Potassium* 3.5 mmol/L (3.6-5.1); Sodium* 136 mmol/L (135-149)
[2022-06-30 15:43] LABS: Creatinine* 0.7 mg/dL (0.5-1.5); Estimated Glomerular Filt Rate 119 ml/min
[2022-06-30 15:44] LABS: Alanine Aminotransferase* 21 U/L (4-35); Alkaline Phosphatase* 68 U/L (40-150); Aspartate Amino Transferase* 28 U/L (12-35); Bilirubin Total* 0.6 mg/dL (0.1-1.5); Blood Urea Nitrogen* 7 mg/dL (5-24); Calcium* 9.1 mg/dL (8.4-10.6); Carbon Dioxide* 30 mmol/L (20-32); Glucose* 85 mg/dL (60-115); Lipase* 48 U/L (23-300); Total Protein* 7.4 g/dL (6.0-8.3)
== END 2022-06-30 09:40 | disposition home or self-care (01) ==
PROVIDERS: PCP Family Medicine; Visit Provider Family Medicine
DX: R11.2 Nausea with vomiting, unspecified (principal)
CPT/HCPCS: 80053; 83690

== ENCOUNTER 2022-10-21 11:15 | Outpatient (CLI) | payer MEDICARE, OTHER, SELFPAY ==
[2022-10-21 17:43] LABS: Albumin* 3.8 g/dL (3.3-5.0); Chloride* 105 mmol/L (96-114)
[2022-10-21 17:44] LABS: Potassium* 3.5 mmol/L (3.6-5.1); Sodium* 138 mmol/L (135-149)
[2022-10-21 17:46] LABS: Alanine Aminotransferase* 19 U/L (4-35); Alkaline Phosphatase* 52 U/L (40-150); Aspartate Amino Transferase* 26 U/L (12-35); Bilirubin Total* 0.5 mg/dL (0.1-1.5); Blood Urea Nitrogen* 7 mg/dL (5-24); Carbon Dioxide* 28 mmol/L (20-32); Creatinine* 0.6 mg/dL (0.5-1.5); Estimated Glomerular Filt Rate 123 ml/min; Total Protein* 6.6 g/dL (6.0-8.3)
[2022-10-21 17:47] LABS: Calcium* 8.5 mg/dL (8.4-10.6); Glucose* 75 mg/dL (60-115)
[2022-10-21 17:49] LABS: C Reactive Protein* 1.5 mg/dL (0.5-1.0)
== END 2022-10-21 11:16 | disposition home or self-care (01) ==
PROVIDERS: PCP Family Medicine; Visit Provider Family Medicine
DX: R61 Generalized hyperhidrosis (principal)
CPT/HCPCS: 80053; 84443; 86140

== ENCOUNTER 2023-08-23 10:12 | Outpatient (CLI) | payer MEDICARE, OTHER, SELFPAY | END 2023-08-23 10:13 | disposition home or self-care (01) | LOC: NFLDREF 08-24 11:40 | PROVIDERS: PCP Family Medicine; Referring Provider Family Medicine; Visit Provider Obstetrics & Gynecology | DX: N91.1 Secondary amenorrhea (principal) | CPT/HCPCS: 82627; 84143; 84144; 84146; 84403; 84439; 84443 ==

== ENCOUNTER 2023-09-27 15:40 | Outpatient (CLI) | payer MEDICARE, OTHER, SELFPAY ==
--- OUTSIDE RECORDS SUMMARY | 2023-09-27 15:43 | XMS_ITS | Clinical Summary ---
Author Name Unknown Organization [facility] [facility] Address [place], [place] [address] Care Team Providers Care Radio Repairer Domestic Name Role Phone Pcp, No Primary Care Provider Adelso Ramos MD Unavailable [phone] Allergies Active Allergy Reactions Criticality Noted Date Comments Amoxicillin-Pot Clavulanate Hypertension 2017 hypertension Hydrocodone-Acetaminophen GI Upset 01/05/2018 Medications Medication Sig Dispensed Refills Start Date End Date Status citalopram (CELEXA) 20 mg tablet Take 20 mg by mouth once daily. 0 11/09/2021 Active clonazePAM (KLONOPIN) 0.5 mg tablet TAKE ONE TABLET BY MOUTH DAILY NEEDED FOR ANXIETY 0 06/26/2022 Active DULoxetine (CYMBALTA) 30 mg Delayed-release capsule TAKE ONE CAPSULE BY MOUTH ONE TIME DAILY along with 60 mg cap for total daily dose of 90 mg 0 09/07/2022 Active DULoxetine (CYMBALTA) 60 mg Delayed-release capsule TAKE ONE CAPSULE BY MOUTH ONE TIME DAILY ALONG WITH ONE 30 MG CAPSULE FOR TOTAL DAILY DOSE OF 90 MG 0 09/07/2022 Active Aimovig Autoinjector 140 mg/mL auto-injector Inject 1 mL (140 mg) Subcutaneous every 30 days 0 10/03/2022 Active hydrOXYzine HCL (ATARAX) 25 mg tablet Take 1-2 tablets by mouth daily as needed 0 09/07/2022 Active Kurvelo, 28, 0.15-0.03 mg tablet TAKE 1 TABLET BY MOUTH ONCE DAILY. Skip the placebo pills for the first two packs. Take the placebo pills of the third pack. 0 08/17/2022 Active mometasone 0.1% (ELOCON 0.1% CREAM) 0.1 % cream Apply topically to affected area(s). 0 Active ondansetron (ZOFRAN ODT) 4 mg disintegrating tablet Take 1 tablet (4 mg) by mouth every 8 hours as needed for nausea 0 09/07/2022 Active SUMAtriptan (IMITREX) 100 mg tablet TAKE 1 TABLET (100 MG) BY MOUTH AT ONSET OF HEADACHE FOR MIGRAINE. MAY REPEAT IN 2 HOURS NEEDED. MAX 2 TABLETS IN 24 HOURS. 0 01/16/2022 Active prochlorperazine (COMPAZINE) 5 mg tablet Take 1-2 tablets (5-10 mg) by mouth every 6 hours as needed for nausea or vomiting 0 01/16/2022 Active Ubrelvy 100 mg tab tablet Take 1 tablet (100 mg) by mouth at onset of headache (may repeat in 2 hours as needed. Max 2 tabs in 24 hours) 0 11/03/2021 Active lubiprostone (AMITIZA) 24 mcg capsule Take 1 capsule (24 mcg) by mouth 2 times daily (with meals) 0 08/20/2022 Active fludrocortisone (FLORINEF) 0.1 mg tab No Take 0.2 mg by mouth once daily. 0 09/07/2022 Active Encounters Date Type Department Care Team Description 08/23/2023 Lab Requisition [facility] [phone] Unknown, Doctor from Last 3 Months Social History Tobacco Use Types Packs/Day Years Used Date Smoking Tobacco: Never Smokeless Tobacco: Never Tobacco Cessation:Counseling Given: Not Answered Sex and Gender Information Value Date Recorded Sex Assigned at Not on file Gender Identity Not on file Sexual Orientation Not on file Obstetrics History Last Filed Vital Signs Vital Sign Reading Time Taken Comments Blood Pressure 119/79 03/07/2023 5:32 PM CDT Pulse 77 03/07/2023 5:32 PM CDT Temperature 36.7 ??C (98 ??F) 03/07/2023 5:32 PM CDT Respiratory Rate 20 03/07/2023 5:32 PM CDT Oxygen Saturation 98% 03/07/2023 5:32 PM CDT Inhaled Oxygen Concentration - - Weight 77.1 kg (170 lb) 03/07/2023 5:32 PM CDT Height - - Body Mass Index - - Plan of Treatment Health Maintenance Due Date Last Done Comments Tdap 2002 Depression screening for age 12+ 2003 HIV for age 15-65 2006 BMI (ht and wt on same day) for age 18+ 2009 Hepatitis C screening for age 18-79 2009 Tetanus booster 2011 COVID-19 vaccine series ( season) 2023 07/22/2022, 10/31/2021, 01/29/2021, Additional history exists Influenza for age 9-49 05/14/2023 Pap test for age 21-65 08/20/2026 3, 08/20/2023, 11/24/2021, Additional history exists Pneumococcal series for age 6-64 Aged Out No longer eligible based on patient's age to complete this topic Procedures Procedure Name Priority Date/Time Associated Diagnosis Comments LAB TRACKING EVENT Routine 08/20/2023 12 :00 PM PLOW AND BORING MACHINE TENDER DECISION UNIT RN THIN PREP PAP SCREEN IMAGED Routine 08/20/2023 12:00 PM PLOW AND BORING MACHINE TENDER HPV THIN PREP Routine 08/20/2023 12:00 PM PLOW AND BORING MACHINE TENDER from Last 3 Months Results * LAB TRACKING EVENT (08/20/2023 12:00 PM PLOW AND BORING MACHINE TENDER) Other (Other) Client Collect / Unknown 08/20/2023 12:00 PM PLOW AND BORING MACHINE TENDER 08/23/2023 3:57 PM PLOW AND BORING MACHINE TENDER Doctor Unknown LAB BILL ONLY [facility] [address] [place] [address], * DECISION UNIT RN THIN PREP PAP SCREEN IMAGED (08/20/2023 12:00 PM PLOW AND BORING MACHINE TENDER) Case Report Gynecologic Cytology Report ? Case: [id number] ? Authorizing Provider: ??Unknown, Doctor ?Collected: ? 08/20/2023 1200 ? Ordering Location: ? [facility] ?Received: ?08/24/2023 1143 ? First Screen: ?Jonathan Guerra A ? Rescreen: ?Mandy Bhatti ? Specimen: ?DECISION UNIT RN ThinPrep Vial Screening, Cervical ? 09/01/2023 1:51 PM PLOW AND BORING MACHINE TENDER [facility] INTERPRETATION/ RESULT NEGATIVE FOR INTRAEPITHELIAL LESION OR MALIGNANCY (NIL) (none) 09/01/2023 1:51 PM PLOW AND BORING MACHINE TENDER [facility] IMEN ADEQUACY Satisfactory for evaluation Endocervical component present 09/01/2023 1:51 PM PLOW AND BORING MACHINE TENDER [facility] HPV REQUEST HPV and PAP 09/01/2023 1:51 PM PLOW AND BORING MACHINE TENDER [facility] Date of LMP 08/02/2023 09/01/2023 1:51 PM PLOW AND BORING MACHINE TENDER [facility] Last Pap Date 11/24/2021 09/01/2023 1:51 PM PLOW AND BORING MACHINE TENDER [facility] Last Pap Result ASCUS 1:51 PM PLOW AND BORING MACHINE TENDER [facility] Abnormal Pap or [place] Bx in last 5 years Yes 09/01/2023 1:51 PM PLOW AND BORING MACHINE TENDER [facility] Menstrual Status Regular Periods 09/01/2023 1:51 PM PLOW AND BORING MACHINE TENDER [facility] [place] Bx Done Today No 09/01/2023 1:51 PM PLOW AND BORING MACHINE TENDER [facility] Additional Information 09/01/2023 1:51 PM PLOW AND BORING MACHINE TENDER [facility] Comment: Interpreted at [facility] - [address] [facility] [address], [place] [address] Automated Review Successful 09/01/2023 1:51 PM PLOW AND BORING MACHINE TENDER [facility] Comment:Specimen processed s uccessfully by automated clinical recruiter device, ThinPrep Imaging System, [employer] ANCILLARY TESTING DECISION UNIT RN HPV Ordered, Please see separate report 09/01/2023 1:51 PM PLOW AND BORING MACHINE TENDER [facility] Note The pap test is a screening technique, not a diagnostic procedure. It is used primarily to screen for squamous cancers and precursor lesions. Published studies have shown that it is subject to both false negative and false positive results. The pap test should not be used as the sole means to diagnose or exclude pre-malignant and malignant lesions. 09/01/2023 1:51 PM PLOW AND BORING MACHINE TENDER [facility] Other (Cervical) 08/20/2023 12:00 PM PLOW AND BORING MACHINE TENDER 08/24/2023 11:43 AM PLOW AND BORING MACHINE TENDER Doctor Unknown PATHOLOGY/CYTOLOGY [facility] [address] [place] [address], * (ABNORMAL) HPV HIGH RISK (08/20/2023 12:00 PM PLOW AND BORING MACHINE TENDER) TYPE 16 Negative Negative 08/26/2023 11:15 AM PLOW AND BORING MACHINE TENDER [facility] TYPE 18 Negative Negative 08/26/2023 11:15 AM PLOW AND BORING MACHINE TENDER [facility] TRA LABORATORY OTHER HIGH RISK TYPES Positive(A) Negative 08/26/2023 11:15 AM PLOW AND BORING MACHINE TENDER [facility] Other (Cervical) 08/20/2023 12:00 PM PLOW AND BORING MACHINE TENDER 08/24/2023 11:43 AM PLOW AND BORING MACHINE TENDER Narrative [facility] - 08/26/2023 11:15 AM PLOW AND BORING MACHINE TENDER Specimen is positive for the DNA of any one of, or combination of, the following high risk HPV types: 31, 33, 35, 39, 45, 51, 52, 56, 58, 59, 66, 68. HPV types 16 and 18 DNA were undetectable or below the pre-set threshold. ? Methodology: Sharon Vahid 4800 HPV Test Doctor Unknown MICROBIOLOGY [facility] [address] [place] [address], from Last 3 Months Care Teams Radio Repairer Domestic Relationship Specialty Start Date End Date Pcp, No . PCP - General 10/11/22 Adelso Lara MD [address] [place] [address] 10/11/22
--- OUTSIDE RECORDS SUMMARY | 2023-09-27 15:44 | XMS_ITS | Encounter Summary ---
Author Name Unknown Organization [place] Address [address] [facility] [place] [address] Care Team Providers Care Programmer Numerical Control Name Role Phone Monty Musa MD Primary Care Provider Alfonso Tang Unavailable Unavailable Dayanara Bee MD Unavailable [phone] Min Lange MD Unavailable Unavailable Marlo Madsen MD Unavailable [phone] Mel Buckley RN Unavailable [phone] Douglas Cadet MD Unavailable Rosalba Pendleton APRN OUTSIDE PROPERTY AGENT Unavaila ble Rosalba Pendleton APRN OUTSIDE PROPERTY AGENT Unavaila ble Marlo Madsen MD Unavailable [phone] Abby Vasquez MD Unavailable Abby Vasquez MD Unavailable Airam Hodges PA-C Unavailable [phone] Reason for Referral * Diagnostic Imaging XR (Routine) - Pending Review Specialty Diagnoses / Procedures Referred By Contac t Referred To Contact Radiology. Diagnoses Slow transit constipation Procedures XR Abdomen 1 View Zain Quintana MD [address] [place] [address] Referral ID Status Reason Start Date Expiration Date V isits Requested Visits Authorized [id number] Pending Review 09/21/2023 09/20/2024 1 1 T CUSTODIAN * Diagnostic Imaging XR (Routine) - Pending Review Specialty Diagnoses / Procedures Referred By Contac t Referred To Contact Radiology. Diagnoses Slow transit constipation Procedures XR Abdomen 1 View Zain Quintana MD [address] [place] [address] Referral ID Status Reason Start Date Expiration Date V isits Requested Visits Authorized [id number] Pending Review 09/21/2023 09/20/2024 1 1 T CUSTODIAN * Diagnostic Imaging XR (Routine) - Pending Review Specialty Diagnoses / Procedures Referred By Contac t Referred To Contact Radiology. Diagnoses Slow transit constipation Procedures XR Abdomen 1 View Zain Quintana MD [address] [place] [address] Referral ID Status Reason Start Date Expiration Date V isits Requested Visits Authorized [id number] Pending Review 09/21/2023 09/20/2024 1 1 T CUSTODIAN * Rehab Therapy Physical Therapy (Routine: Next available opening) - Pending Review Specialty Diagnoses / Procedures Referred By Contac t Referred To Contact Diagnoses Slow transit constipation Zain Quintana MD [address] [place] [address] Referral ID Status Reason Start Date Expiration Date V isits Requested Visits Authorized [id number] Pending Review 09/21/2023 09/20/2024 1 1 Question Answer Preferred Location: [facility] Scheduling Instructions: If you have not heard from the scheduling office within 2 business days, please call [phone] for [employer] [facility], for [place] and [phone] for [place]. Course of Action Evaluation and Treatment Adult or Pediatrics Adult Specialty Services: Pelvic Health Pelvic Health: Constipation Comments Please be aware that coverage of these services is subject to the terms and limitations of your health insurance plan. Call member services at your health plan with any benefit or coverage questions. If you have not heard from the scheduling office within 2 business days, please call [phone] for [facility], for [place] and [phone] for [place]. T CUSTODIAN Reason for Visit * Reason Comments Consult * Consultation (Routine: Next available opening) - Pending Review Specialty Diagnoses / Procedures Referred By Contgeovany t Referred To Contact Colon and Rectal Surgery Diagnoses Constipation, unspecified constipation type Abby Vasquez MD [address] [place] [address] Referral ID Status Reason Start Date Expiration Date V isits Requested Visits Authorized [id number] Pending Review 07/14/2023 07/13/2024 1 1 Encounter Details Date Type Department Care Team (Late st Contact Info) Description 09/21/2023 10:00 AM NIGHT CUSTODIAN Office Visit [facility] [address] [address] Zain Quintana MD [address] [place] [address] Slow transit constipation (Primary Dx); Constipation, unspecified constipation type Social History Tobacco Use Types Packs/Day Years Used Date Smoking Tobacco: Never Smokeless Tobacco: Never Alcohol Use Standard Drinks/Week Comments No 0 (1 standard drink = 0.6 oz pur e alcohol) PHQ-2 Answer Date Recorded PHQ-2 Score 4 07/15/2023 Adolescent Education Answer Date Record ed Getting School Help Needed Not on file 06/04 Sex and Gender Information Value Date Recorded Sex Assigned at Female 10/31/2021 7:59 AM NIGHT CUSTODIAN Gender Identity Female 10/31/2021 7:59 AM NIGHT CUSTODIAN Sexual Orientation Straight 10/31/2021 7: 59 AM NIGHT CUSTODIAN documented as of this encounter Last Filed Vital Signs Vital Sign Reading Time Taken Comments Blood Pressure 108/78 09/21/2023 9:49 AM NIGHT CUSTODIAN Pulse 85 09/21/2023 9:49 AM NIGHT CUSTODIAN Temperature - - Respiratory Rate - - Oxygen Saturation 100% 09/21/2023 9:49 AM NIGHT CUSTODIAN Inhaled Oxygen Concentration - - Weight - - Height - - Body Mass Index - - documented in this encounter Patient Instructions * Patient Instructions* Latricia Prasad RN - 09/21/2023 10:00 AM NIGHT CUSTODIAN Follow up: Go out front to schedule your sitz marker test You will get the sitz marker downstairs at the pharmacy PT- Physical Therapy will call you to schedule this Follow up after 6 months by calling [phone] T CUSTODIAN documented in this encounter Progress Notes * Zain Quintana MD - 09/21/2023 10:00 AM CST Images from the original note were not included. Colon and Rectal Surgery Clinic Note RE: Latricia Hatch. : 1990. FAWN: 09/21/2023. Reason for visit: discuss stoma for constipation. HPI: Latricia Hatch is a 33 year old female who presents today to discuss a stoma for chronic constipation. She has a past medical history of depression, dysautonomia, anxiety, HLD, sleep apnea, obesity, PCOS, and migraines. PFC testing in November 2022 demonstrated high resting and squeeze pressures on a norectal manometry as well as a blunted tolerable volume on the balloon test. EMG and defecography were both consistent with nonrelaxation of the pelvic floor. She underwent biofeedback/PT with limited improvement. She has tried Amitiza and Linzess in the past. She is now trying Trulance and currently on Miralax and mag oxide with fleet enemas or glycerin suppositories as needed. Her last colonoscopy was in 2021 with two hyperplastic polyps in the sigmoid colon. She follows with Dr. Neva Vasquez in GI. Today Latricia feels fine, she has had minimal improvements with medications and PT, which she tried for 7 weeks. Colonoscopy (10/16/2021): Surgical Pathology (10/16/2021): A) COLON, DESCENDING, POLYPECTOMY: 1. Colonic mucosa with no diagnostic abnormalities (clinically, 1 polyp) 2. Negative for serrated change, dysplasia, and malignancy B) COLON, SIGMOID, POLYPECTOMIES: 1. Hyperplastic polyps (2) CT Abdomen/Pelvis (07/09/2023): IMPRESSION: No acute findings or other explanation for symptoms. Pelvic Floor Testing (12/03/2022): Medical history: Depression Axniety HLD Sleep Apnea Obesity PCOS Migraines Dysautonomia Surgical history: Appendectomy Family history: Family History Problem Relation Age of Onset Colon Polyps Other grandfather Cancer - colorectal Father 50 Diabetes Father Coronary Artery Disease Father Hyperlipidemia Father Colon Cancer Father Colon Polyps Father Obesity Father Cancer Other breast Coronary Artery Disease Mother Hyperlipidemia Mother Aneurysm Mother Colon Polyps Mother Depression Mother Anxiety Disorder Mother Anesthesia Reaction Mother Cerebrovascular Disease Maternal Grandmother Diabetes Paternal Grandmother Breast Cancer Paternal Grandmother Ovarian Cancer Paternal Grandmother Cerebrovascular Disease Other Colon Polyps Other Breast Cancer Other Ovarian Cancer Sister Crohn's Disease No family hx of Ulcerative Colitis No family hx of Medications: Current Outpatient Medications Medication Sig Dispense Refill AIMOVIG 140 MG/ML injection Inject 1 mL (140 mg) Subcutaneous every 30 days 1 mL 11 barium sulfate (Snow & AlpsMARKS RADIOPAQUE MARKERS) CAPS capsule Take 1 capsule by mouth once for 1 dose 1 capsule 0 clonazePAM (KLONOPIN) 0.5 MG tablet Take 0.5 mg by mouth daily DULoxetine (CYMBALTA) 30 MG capsule Take 30 mg by mouth 2 times daily fludrocortisone (FLORINEF) 0.1 MG tablet Take 2 tablets (0.2 mg) by mouth daily 180 tablet 3 hydrOXYzine (ATARAX) 50 MG tablet Take 50 mg by mouth daily Magnesium Oxide -Mg Supplement 500 MG TABS Take 1 tablet (500 mg) by mouth daily for 180 days 120 tablet 1 midodrine (PROAMATINE) 5 MG tablet Take 2 tablets (10mg) in the morning, and 1 tablet (5mg) in the afternoon. Do not take within 4 hours lying down 270 tablet 1 ondansetron (ZOFRAN ODT) 4 MG ODT tab Take 1 tablet by mouth every 8 hours as needed order for DME Equipment being ordered: Micro climate cooling vest 1 kit 0 plecanatide (TRULANCE) 3 MG tablet Take 1 tablet (3 mg) by mouth daily 30 tablet 1 prochlorperazine (COMPAZINE) 5 MG tablet Take 1-2 tablets (5-10 mg) by mouth every 6 hours as needed for nausea or vomiting 20 tablet 3 Zavegepant HCl 10 MG/ACT SOLN [place] 10 mg in nostril at onset of headache (migraine. Max one spray in 24 hours) 6 each 11 ZOLMitriptan (ZOMIG-ZMT) 5 MG ODT Take 1 tablet (5 mg) by mouth at onset of headache for migraine May repeat in 2 hours. Max 2 tablets/24 hours. 18 tablet 11 Allergies: Allergies Allergen Reactions Amoxicillin-Pot Clavulanate GI Disturbance Vicodin Hp [Hydrocodone-Acetaminophen] Social history: Social History Tobacco Use Smoking status: Never Smokeless tobacco: Never Substance Use Topics Alcohol use: No Marital status: . ROS: A complete review of systems was performed with the patient and all systems negative except as per HPI. Physical Examination: VS obtained by Jose Ware, EMT-P BP 108/78 (BP Location: Left arm, Patient Position: Sitting, Cuff Size: Adult Large) Pulse 85 SpO2 100% General: Well hydrated. No acute distress. CV: RRR Lung: Non-labored breathing on RA Abdomen: Soft, NT. No inguinal adenopathy palpated. ASSESSMENT This is a 33 year old F with a past medical history of depression, dysautonomia, anxiety, HLD, sleep apnea, obesity, PCOS, and migraines, presenting with constipation resistant to multiple line of medications. We discussed her pelvic floor testing together with the importance of pelvic floor and biofeedback for a prolonged period of time given the non-relaxing pelvic floor. She would like to try more conservative options before discussing an ostomy. All pertinent labs and imaging were personally reviewed by me. PLAN - Sitz marker study - Pelvic floor PT and biofeedback for 6 months - Continue GI care - RTC then or sooner if needed 45 minutes spent on the date of the encounter doing chart review, history and exam, imaging review,documentation and further activities as noted above. Zain Quintana MD Accounting Lecturer Division of Colon and Rectal Surgery [facility] Referring Provider: Abby Vasquez MD [address] [place] [address] Primary Care Provider: Monty Musa T CUSTODIAN documented in this encounter Nursing Notes * Jose Ware, DELIA - 09/21/2023 10:00 AM CST Chief Complaint Patient presents with Consult Vitals: 09/21/23 0949 BP: 108/78 BP Location: Left arm Patient Position: Sitting Cuff Size: Adult Large Pulse: 85 SpO2: 100% There is no height or weight on file to calculate BMI. Jose Ware EMT-P T CUSTODIAN documented in this encounter Plan of Treatment Upcoming Encounters Date Type Department Care Team (Late st Contact Info) Description 09/29/2023 9:30 AM NIGHT CUSTODIAN Ancillary Procedure [facility] [address] [facility] [address] [place] [phone] Zain Quintana MD [address] [place], [place] 1957[address] 10/01/2023 9:30 AM NIGHT CUSTODIAN Ancillary Procedure [facility] [address] Counts [address] [address] [place] [phone] Zain Quintana MD [address] [place], [place] [phone] 10/18/2023 PRE VISIT [facility] [address] 4th [place] [phone] Airam Hodges PA-C [address] [place], [place] [phone] Previsit 10/21/2023 11:30 AM NIGHT CUSTODIAN Therapy Visit [facility] [address] [facility] [address] [place] [address] Zain Quintana MD [address] [place] [address] [place], [place] [address] [place] [address] 10/26/2023 1:00 PM NIGHT CUSTODIAN Virtual Visit [facility] [address] [phone] Latricia Pettit PA-C [address] [place] [address] [phone] 10/28/2023 10:50 AM NIGHT CUSTODIAN Therapy Visit [address] [address] Zain Quintana MD [address] [place] [address] Lainey Simon, PT [address] [place] [address] 11/04/2023 10:50 AM NIGHT CUSTODIAN Therapy Visit [address] [address] Zain Quintana MD [address] [place] [address] Lainey Simon, PT [address] [place] [address] 11/24/2023 10:40 AM CDT Office Visit [facility] [address] [phone] Abby Vasquez MD [address] [place] [address] 01/13/2024 10:00 AM CDT Virtual Visit [facility] [address] 3rd [place] [phone] Rosalba Pendleton, MARRIAGE COUNSELOR OUTSIDE PROPERTY AGENT [address] [place] [address] [id number] [place] [address] 01/20/2024 8:00 PM CDT Therapy Visit [facility] [address] [place] [phone] 03/14/2024 10:30 AM CDT Office Visit [facility] [address] [place] [phone] Abhishek Acevedo PA-C [address] [address] 03/21/2024 11:30 AM CDT Office Visit [facility] [address] [place] [phone] Zain Quintana MD [address] [place] [address] Scheduled Orders Name Type Priority Associated Diagnoses Orde r Schedule XR Abdomen 1 View Imaging Routine Slow transit constipation Expected: 09/21/2023 (Approximate), Expires: 09/21/2024 XR Abdomen 1 View Imaging Routine Slow transit constipation Expected: 09/21/2023 (Approximate), Expires: 09/21/2024 Scheduled Referrals Name Type Priority Associated Diagnoses Orde r Schedule Physical Therapy Referral Referral Routine: Next available opening Slow transit constipation Expected: 09/21/2023 (Approximate), Expires: 09/21/2024 documented as of this encounter Results * XR Abdomen 1 View (09/27/2023 9:02 AM NIGHT CUSTODIAN) Anatomical Region Laterality Modality Abdomen/Pelvis Computed Radiogr aphy Impressions 09/27/2023 10:27 AM NIGHT CUSTODIAN IMPRESSION: Sitz markers are seen along the ascending and transverse colon. Nonobstructive bowel gas pattern. Moderate to large stool burden is seen throughout the colon. No acute bony abnormality. DERREK VILLAGOMEZ MD SYSTEM ID: ??[id number] Narrative 09/27/2023 10:27 AM NIGHT CUSTODIAN ABDOMEN TWO VIEWS 09/27/2023 9:02 AM HISTORY: Sitz Marker Study; Slow transit constipation COMPARISON: None. Procedure Note Derrek Villagomez MD - 09/27/2023 ABDOMEN TWO VIEWS 09/27/2023 9:02 AM HISTORY: Sitz Marker Study; Slow transit constipation COMPARISON: None. IMPRESSION: Sitz markers are seen along the ascending and transverse colon. Nonobstructive bowel gas pattern. Moderate to large stool burden is seen throughout the colon. No acute bony abnormality. DERREK VILLAGOMEZ MD SYSTEM ID: [id number] Zain Quintana MD IMG DIAGNOSTIC IMAGI NG ORDERABLES documented in this encounter Visit Diagnoses Diagnosis Slow transit constipation- Primary Constipation, unspecified constipation type Slow transit constipation documented in this encounter Additional Health Concerns Assessment Noted Time PHQ-9 Depression Total Score: 12 023 8:53 AM CDT documented as of this encounter Care Teams Programmer Numerical Control Relationship Specialty Start Date End Date Monty Musa MD [facility] [address] [place] [address] PCP - General Family Medicine 08/13/21 Alfonso Tang [facility] [address] [place] [address] Family Practice 08/13/21 Dayanara Bee MD [address] [place] [address] Pediatrics 12/26/14 Min Lange MD [address] [facility] 75 [place] [address] Neurology 03/30/16 Marlo Madsen MD [address] [place], [place] [address] [place], [place] [phone] Cardiology 10/27/16 Mel Buckley, RN Nurse Coordinator Physical Medicine and Rehabilitation 12/02/16 Douglas Cadet MD [address] [place] [address] Gastroenterology 08/13/21 Rosalba Pendleton APRN OUTSIDE PROPERTY AGENT [address] [place] [address] [phone] Nurse Practitioner Neurology 09/05/21 Rosalba Pendleton APRN OUTSIDE PROPERTY AGENT [address] [place] [address] [phone] Assigned Neuroscience Provider 11/09/21 Marlo Madsen MD [address] [place] [address] [phone] Assigned Heart and Vascular Provider 03/14/22 Abby Vasquez MD [address] [place] [address] 190885 Gastroenterology 07/16/22 Abby Vasquez MD [address] [place] [address] Assigned PCP 09/26/22 Airam Hodges PA-C [address] [place] [address] Physician Senior Marketing Specialist Surgery 07/19/23 documented as of this encounter
--- OUTSIDE RECORDS SUMMARY | 2023-09-27 15:44 | XMS_ITS | Encounter Summary ---
Author Name Unknown Organization [place] Address [address] [facility] [place] [address] Care Team Providers Care Silverware Buffer Name Role Phone Monty Musa MD Primary Care Provider Alfonso Tang Unavailable Unavailable Dayanara Bee MD Unavailable [phone] Min Lange MD Unavailable Unavailable Marlo Madsen MD Unavailable [phone] Mel Buckley RN Unavailable [phone] Douglas Cadet MD Unavailable Rosalba Pendleton APRN EGG GRADER Unavaila ble Rosalba Pendleton APRN EGG GRADER Unavaila ble Marlo Madsen MD Unavailable [phone] Abby Vasquez MD Unavailable Abby Vasquez MD Unavailable Airam Hodges PA-C Unavailable [phone] Reason for Visit * Diagnostic Imaging XR (Routine) - Pending Review Specialty Diagnoses / Procedures Referred By Contac t Referred To Contact Radiology. Diagnoses Slow transit constipation Procedures XR Abdomen 1 View Zain Quintana MD [address] [place] [address] Referral ID Status Reason Start Date Expiration Date V isits Requested Visits Authorized [id number] Pending Review 09/21/2023 09/20/2024 1 1 Encounter Details Date Type Department Care Team (Latest Contact Info) Description 09/27/2023 9:30 AM PERSONALIZATION SPECIALIST Ancillary Procedure [facility] [address] [place] [phone] Zain Quintana MD [address] [place] [address] Slow transit constipation Social History Tobacco Use Types Packs/Day Years [...] Sex Assigned at Female 10/31/2021 7:59 AM PERSONALIZATION SPECIALIST Gender Identity Female 10/31/2021 7:59 AM PERSONALIZATION SPECIALIST Sexual Orientation Straight 10/31/2021 7: 59 AM PERSONALIZATION SPECIALIST documented as of this encounter Plan of Treatment Upcoming Encounters Date Type Department Care Team (Late st Contact Info) Description 09/29/2023 9:30 AM PERSONALIZATION SPECIALIST Ancillary Procedure [facility] [address] [place] [phone] Zain Quintana MD [address] [place] [address] 10/01/2023 9:30 AM PERSONALIZATION SPECIALIST Ancillary Procedure [facility] [address] [place] [phone] Zain Quintana MD [address] [place] [address] 10/18/2023 PRE VISIT [facility] [address] [phone] Airam Hodges PA-C [address] [place] [address] Previsit 10/21/2023 11:30 AM PERSONALIZATION SPECIALIST Therapy Visit [address] [address] Zain Quintana MD [address] [place] [address] Lainey Simon, PT [address] [place] [address] 10/26/2023 1:00 PM PERSONALIZATION SPECIALIST Virtual Visit [facility] [address] [phone] Latricia Pettit PA-C [address] [place] [address] 10/28/2023 10:50 AM PERSONALIZATION SPECIALIST Therapy Visit [address] [address] Zain Quintana MD [address] [place] [address] Lainey Simon, PT [address] [place] [address] 11/04/2023 10:50 AM PERSONALIZATION SPECIALIST Therapy Visit [address] [address] Zain Quintana MD [address] [place] [address] [place] [address] [place], [place] [address] 11/24/2023 10:40 AM CDT Office Visit [facility] [address] [place] [phone] Abby Vasquez MD [address] [place] [address] 371705 01/13/2024 10:00 AM CDT Virtual Visit [facility] [address] [place] [phone] Rosalba Pendleton, MAXIMILIANO [address] WS9801W[place], [place] [address] 01/20/2024 8:00 PM CDT Therapy Visit [facility] [address] [phone] 03/14/2024 10:30 AM CDT Office Visit [address] [phone] Abhishek Acevedo PA-C [address] [id number] 03/21/2024 11:30 AM CDT Office Visit [facility] [address] [phone] Zain Quintana MD [address] [place] [address] 870335 documented as of this encounter Procedures Procedure Name Priority Date/Time Associated Diagnosis Comments XR ABDOMEN 1 VIEW Routine 09/27/2023 9:0 2 AM PERSONALIZATION SPECIALIST Slow transit constipation documented in this encounter Results * XR Abdomen 1 View (09/27/2023 9:02 AM PERSONALIZATION SPECIALIST) Anatomical Region Laterality Modality Abdomen/Pelvis Computed Radiogr aphy Impressions 09/27/2023 10:27 AM PERSONALIZATION SPECIALIST IMPRESSION: Sitz markers are seen along the ascending and transverse colon. Nonobstructive bowel gas pattern. Moderate to large stool burden is seen throughout the colon. No acute bony abnormality. DERREK VILLAGOMEZ MD SYSTEM ID: [id number] Narrative 09/27/2023 10:27 AM PERSONALIZATION SPECIALIST ABDOMEN TWO VIEWS 09/27/2023 9:02 AM HISTORY: [...] bony abnormality. DERREK VILLAGOMEZ MD SYSTEM ID: [id number] Zain Quintana MD IMG DIAGNOSTIC IMAGI NG ORDERABLES documented in this encounter Visit Diagnoses Diagnosis Slow transit constipation documented in this encounter Additional Health Concerns Assessment Noted Time PHQ-9 Depression Total Score: 12 023 8:53 AM CDT documented as of this encounter Care Teams Silverware Buffer Relationship Specialty Start Date End Date Monty Musa MD [facility] [address] [place] [address] PCP - General Family Medicine 08/13/21 Alfonso Tang [facility] [address] [place] [address] Family Practice 08/13/21 Dayanara Bee MD [address] [place] [address] Pediatrics 12/26/14 Min Lange MD [address] [place] [address] 75 [place] [address] Neurology 03/30/16 Marlo Madsen MD [address] [place] [address] 508 [place] [address] Cardiology 10/27/16 Mel Buckley, RN Nurse Coordinator Physical Medicine and Rehabilitation 12/02/16 Douglas Cadet MD [address] [place] [address] [phone] Gastroenterology 08/13/21 Rosalba Pendleton APRN EGG GRADER [address] [place] [address] [phone] Nurse Practitioner Neurology 09/05/21 Rosalba Pendleton APRN EGG GRADER [address] [place] [address] 470315 Assigned Neuroscience Provider 11/09/21 Marlo Madsen MD [address] [place] [address] Assigned Heart and Vascular Provider 03/14/22 Abby Vasquez MD [address] [place] [address] [phone] Gastroenterology 07/16/22 Abby Vasquez MD [address] [place] [address] 169205 Assigned PCP 09/26/22 Airam Hodges PA-C 500 [place] [address] Physician Director Electrical Engineering Surgery 07/19/23 documented as of this encounter
--- OUTSIDE RECORDS SUMMARY | 2023-09-27 15:44 | XMS_ITS | Encounter Summary ---
Author Name Unknown Organization [place] Address [address] [facility] [place] [address] Care Team Providers Care Linux Systems Engineer Name Role Phone Monty Musa MD Primary Care Provider [phone] Alfonso Tang Unavailable Unavailable Dayanara Bee MD Unavailable [phone] Min Lange MD Unavailable Unavailable Marlo Madsen MD Unavailable [phone] Mel Buckley RN Unavailable [phone] Douglas Cadet MD Unavailable [phone] Rosalba Pendleton APRN RETAIL EQUIPMENT ASSOCIATE Unavaila ble Rosalba Pendleton APRN RETAIL EQUIPMENT ASSOCIATE Unavaila ble Marlo Madsen MD Unavailable [phone] Abby Vasquez MD Unavailable Abby Vasquez MD Unavailable Airam Hodges PA-C Unavailable [phone] Reason for Visit * Reason Comments Medication Refill Encounter Details Date Type Department Care Team (Late st Contact Info) Description 09/26/2023 [facility] [place] [address] [facility] [address] 4th [place] [address] Abby Vasquez MD [address] [place] [address] [phone] Medication Refill Social History Tobacco Use Types Packs/Day Years [...] Sex Assigned at Female 10/31/2021 7:59 AM SHED BOSS Gender Identity Female 10/31/2021 7:59 AM SHED BOSS Sexual Orientation Straight 10/31/2021 7: 59 AM SHED BOSS documented as of this encounter Plan of Treatment Upcoming Encounters Date Type Department Care Team (Late st Contact Info) Description 09/29/2023 9:30 AM SHED BOSS Ancillary Procedure [facility] [address] [place] [phone] Zain Quintana MD [address] [place], [place] [phone] 10/01/2023 9:30 AM SHED BOSS Ancillary Procedure [facility] [address] [place] [phone] Zain Quintana MD [address] [place], [place] [phone] 10/18/2023 PRE VISIT [facility] [address]th [place] [address] Airam Hodges PA-C [address] [place] [address] Previsit 10/21/2023 11:30 AM SHED BOSS Therapy Visit [facility] Rehabilitation Services [facility] [address] [place] [address] Zain Quintana MD [address] [place] [address] Lainey Simon, PT [address] [place] [address] 10/26/2023 1:00 PM SHED BOSS Virtual Visit [facility] Gastroenterology Clinic [address] [phone] Latricia Pettit PA-C [address] [place] [address] 586085 10/28/2023 10:50 AM SHED BOSS Therapy Visit [address] [address] Zain Quintana MD [address] [place] [address] Lainey Simon, PT [address] [place] [address] 11/04/2023 10:50 AM SHED BOSS Therapy Visit [address] [address] Zain Quintana MD [address] [place] [address] Lainey Simon, PT [address] [place] [address] 11/24/2023 10:40 AM CDT Office Visit [facility] Gastroenterology [address] [phone] Abby Vasquez MD [address] [place] [address] 01/13/2024 10:00 AM CDT Virtual Visit [facility] Neurology Clinic [address] 3rd [place] [phone] Rosalba Pendleton APRN RETAIL EQUIPMENT ASSOCIATE [address] [place] [address] [id number] [place] [address] 01/20/2024 8:00 PM CDT Therapy Visit [facility] Sleep [address] [phone] 03/14/2024 10:30 AM CDT Office Visit [address] [phone] Abhishek Acevedo PA-C [address] [address] 03/21/2024 11:30 AM CDT Office Visit [facility] [address] [place] [phone] Zain Quintana MD [address] [place] [address] 330305 documented as of this encounter Visit Diagnoses Diagnosis Irritable bowel syndrome with constipation Irritable bowel syndrome documented in this encounter Additional Health Concerns Assessment Noted Time PHQ-9 Depression Total Score: 12 023 8:53 AM CDT documented as of this encounter Care Teams Linux Systems Engineer Relationship Specialty Start Date End Date Monty Musa MD [facility] MEDICAL [facility] [address] [place] [address] PCP - General Family Medicine 08/13/21 Alfonso Tang [facility] [address] [place] [address] [facility] 08/13/21 Dayanara Bee MD [address] [place] [address] Pediatrics 12/26/14 Min Lange MD [address] [place] [address] Neurology 03/30/16 Marlo Madsen MD [address] [place] [address] 708345 Cardiology 10/27/16 Mel Buckley, RN Nurse Coordinator Physical Medicine and Rehabilitation 12/02/16 Douglas Cadet MD [address] [place] [address] 490385 Gastroenterology 08/13/21 Rosalba Pendleton APRN RETAIL EQUIPMENT ASSOCIATE [address] [place] [address] [phone] Nurse Practitioner Neurology 09/05/21 Rosalba Pendleton APRN RETAIL EQUIPMENT ASSOCIATE [address] [place] [address] Assigned Neuroscience Provider 11/09/21 Marlo Madsen MD [address] [place] [address] [phone] Assigned Heart and Vascular Provider 03/14/22 Abby Vasquez MD [address] [place] [address] [phone] Gastroenterology 07/16/22 Abby Vasquez MD [address] [place] [address] [phone] Assigned PCP 09/26/22 Airam Hodges PA-C [address] [place] [address] [phone] Physician Shear Operator Helper Surgery 07/19/23 documented as of this encounter
--- OUTSIDE RECORDS SUMMARY | 2023-09-27 15:44 | XMS_ITS | Encounter Summary ---
Author Name Unknown Organization [place] Address [address] [facility] [place] [address] Care Team Providers Care Reed Press Feeder Name Role Phone Monty Musa MD Primary Care Provider [phone] Alfonso Tang Unavailable Unavailable Dayanara Bee MD Unavailable [phone] Min Lange MD Unavailable Unavailable Marlo Madsen MD Unavailable [phone] Mel Buckley RN Unavailable [phone] Douglas Cadet MD Unavailable [phone] Rosalba Pendleton APRN TALK SHOW HOST Unavaila ble Rosalba Pendleton APRN TALK SHOW HOST Unavaila ble Marlo Madsen MD Unavailable [phone] Abby Vasquez MD Unavailable Abby Vasquez MD Unavailable Airam Hodges PA-C Unavailable [phone] Encounter Details Date Type Department Care Team (Latest Contact Info) Description 09/21/2023 Travel Social History Tobacco Use Types Packs/Day [...] Sex Assigned at Female 10/31/2021 7:59 AM EDITOR MANAGING DIRECTOR Gender Identity Female 10/31/2021 7:59 AM EDITOR MANAGING DIRECTOR Sexual Orientation Straight 10/31/2021 7: 59 AM EDITOR MANAGING DIRECTOR documented as of this encounter Plan of Treatment Upcoming Encounters Date Type Department Care Team (Late st Contact Info) Description 09/29/2023 9:30 AM EDITOR MANAGING DIRECTOR Ancillary Procedure [facility] [address] [facility] [address] [place] [phone] Zain Quintana MD [address] [place], [place] 265235 10/01/2023 9:30 AM EDITOR MANAGING DIRECTOR Ancillary Procedure [facility] [address] [facility] [address] [place] [phone] Zain Quintana MD 500 [place], [place] [phone] 10/18/2023 PRE VISIT [facility] [place] [address] [facility] [address] 4th [place] [phone] Airam Hodges PA-C 500 [place], [place] 947015 Previsit 10/21/2023 11:30 AM EDITOR MANAGING DIRECTOR Therapy Visit [facility] Rehabilitation Services [facility] [address] [facility] [address] [place] [address] Zain Quintana MD 500 [place], [place] 307235 [place] [address] [place] [address] 10/26/2023 1:00 PM EDITOR MANAGING DIRECTOR Virtual Visit [facility] Gastroenterology [address] [phone] Latricia Pettit PA-C [address] [place] [address] 10/28/2023 10:50 AM EDITOR MANAGING DIRECTOR Therapy Visit [address] [address] Zain Quintana MD [address] [place] [address] [phone] Lainey Simon, JAY [address] [place] [address] 11/04/2023 10:50 AM EDITOR MANAGING DIRECTOR Therapy Visit [address] [address] Zain Quintana MD [address] [place] [address] 836845 Lainey Simon, JAY [address] [place] [address] 11/24/2023 10:40 AM CDT Office Visit [facility] Gastroenterology [address] [phone] Abby Vasquez MD [address] [place] [address] 747635 01/13/2024 10:00 AM CDT Virtual Visit [facility] Neurology [address] [phone] Rosalba Pendleton, ECO INDUSTRIAL DEVELOPMENT CONSULTANT TALK SHOW HOST [address] [facility] [id number] [place], [place] [address] 01/20/2024 8:00 PM CDT Therapy Visit [facility] Sleep [facility] [address] [place] [phone] 03/14/2024 10:30 AM CDT Office Visit [facility] [address] [facility] [address] [place] [phone] Abhishek Acevedo PA-C [address] [phone] 03/21/2024 11:30 AM CDT Office Visit [facility] [address] 4th [place] [phone] Zain Quintana MD [address] [place] [address] 716005 documented as of this encounter Visit Diagnoses Not on filedocumented in this encounter Additional Health Concerns Assessment Noted Time PHQ-9 Depression Total Score: 12 023 8:53 AM CDT documented as of this encounter Care Teams Reed Press Feeder Relationship Specialty Start Date End Date Monty Musa MD [facility] [address] [place] [address] PCP - General Family Medicine 08/13/21 Alfonso Tang [facility] [address] [place] [address] Family Practice 08/13/21 Dayanara Bee MD [address] [place] [address] 75 [place] [address] Pediatrics 12/26/14 Min Lange MD [address] [facility] 75 [place] [address] Neurology 03/30/16 Marlo Madsen MD [address] [place] [address] 508 [place] [address] Cardiology 10/27/16 Mel Buckley, RN Nurse Coordinator Physical Medicine and Rehabilitation 12/02/16 Douglas Cadet MD [address] [place] [address] Gastroenterology 08/13/21 Rosalba Pendleton APRN TALK SHOW HOST [address] [place] [address] 714985 Nurse Practitioner Neurology 09/05/21 Rosalba Pendleton APRN TALK SHOW HOST [address] [place] [address] 234285 Assigned Neuroscience Provider 11/09/21 Marlo Madsen MD [address] [place] [address] [phone] Assigned Heart and Vascular Provider 03/14/22 Abby Vasquez MD [address] [place] [address] [phone] Gastroenterology 07/16/22 Abby Vasquez MD [address] [place] [address] Assigned PCP 09/26/22 Airam Hodges PA-C 500 [place] [address] Physician Tooth Cutter Surgery 07/19/23 documented as of this encounter
--- OUTSIDE RECORDS SUMMARY | 2023-09-27 15:44 | XMS_ITS | Clinical Summary ---
Author Name Unknown Organization [place] Address [address] [facility] [place] [address] Care Team Providers [employer] Representative Name Role Phone Monty Musa MD Primary Care Provider Alfonso Tang Unavailable Unavailable Dayanara eBe MD Unavailable [phone] Min Lange MD Unavailable Unavailable Marlo Madsen MD Unavailable [phone] Mel Buckley RN Unavailable [phone] Douglas Cadet MD Unavailable Rosalba Pendleton APRN CLINICAL LABORATORY SCIENTIST Unavaila ble Rosalba Pendleton APRN CLINICAL LABORATORY SCIENTIST Unavaila ble Marlo Madsen MD Unavailable [phone] Abby Vasquez MD Unavailable Abby Vasquez MD Unavailable Airam Hodges PA-C Unavailable [phone] Allergies Active Allergy Reactions Criticality Noted Date Comments Amoxicillin-Pot Clavulanate GI Disturbance Medium 04/2017 Hydrocodone-Acetaminophen 01/14/2022 Medications Medication Sig Dispensed Refills Start Date End Date Status order for DMEIndications:Dy sautonomia (H),Heat intolerance Equipment being ordered: Micro climate cooling vest 1 kit 0 04/03/2015 Active hydrOXYzine (ATARAX) 50 MG tablet Take 50 mg by mouth daily 0 01/07/2022 Active clonazePAM (KLONOPIN) 0.5 MG tablet Take 0.5 mg by mouth daily 0 08/12/2021 Active prochlorperazine (COMPAZINE) 5 MG tabletIndications :Intractable 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 Take 1-2 tablets (5-10 mg) by mouth every 6 hours as needed for nausea or vomiting 20 tablet 3 01/14/2022 Active DULoxetine (CYMBALTA) 30 MG capsule Take 30 mg by mouth 2 times daily 0 02/02/2022 Active AIMOVIG 140 MG/ML injectionIndicati ons:Intractable 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 Inject 1 mL (140 mg) Subcutaneous every 30 days 1 mL 11 11/03/2022 Active ondansetron (ZOFRAN ODT) 4 MG ODT tab Take 1 tablet by mouth every 8 hours as needed 0 08/12/2021 Active ZOLMitriptan (ZOMIG-ZMT) 5 MG ODTIndications:Mi graine without aura and without status migrainosus, not intractable Take 1 tablet (5 mg) by mouth at onset of headache for migraine May repeat in 2 hours. Max 2 tablets/24 hours. 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 Do not take within 4 hours lying down 270 tablet 1 06/04/2023 Active fludrocortisone (FLORINEF) 0.1 MG tabletIndications :Vasovagal syncope Take 2 tablets (0.2 mg) by mouth daily 180 tablet 3 06/22/2023 Active plecanatide (TRULANCE) 3 MG tabletIndications :Irritable bowel syndrome with constipation Take 1 tablet (3 mg) by mouth daily 30 tablet 1 07/14/2023 Active Zavegepant HCl 10 MG/ACT SOLNIndications:M igraine without aura and without status migrainosus, not intractable [place] 10 mg in nostril at onset of headache (migraine. Max one spray in 24 hours) 6 each 11 07/15/2023 Active linaclotide (LINZESS) 290 MCG capsuleIndication s:Irritable bowel syndrome with constipation Take 1 capsule (290 mcg) by mouth every morning before breakfast 90 capsule 3 05/19/2023 4 Discontinue d(Med Rec(No AVS / No eCancel)) barium sulfate (SITZMARKS RADIOPAQUE MARKERS) CAPS capsuleIndication s:Slow transit constipation Take 1 capsule by mouth once for 1 dose 1 capsule 0 09/21/2023 4 Active Problems Problem Noted Date Diagnosed Date Irritable bowel syndrome without diarrhea 2015 Syncope 01/25/2014 Intractable 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 aura 2013 Overview: Problem list name updated by automated process. 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 Abdominal pain, generalized 10/05/2013 Encounters Date Type Department Care Team Description 09/27/2023 9:30 AM AUTOMOTIVE PRODUCT ENGINEER Ancillary Procedure [address] [place] [phone] Zain Quintana MD Slow transit constipation 09/27/2023 Travel 09/26/2023 Refill [facility] [address] [address] Abby Vasquez MD Medication Refill 09/21/2023 10:00 AM AUTOMOTIVE PRODUCT ENGINEER Office Visit [facility] [address] [phone] Zain Quintana MD Slow transit constipation (Primary Dx); Constipation, unspecified constipation type 09/21/2023 Travel 09/19/2023 Travel 09/17/2023 1:30 PM AUTOMOTIVE PRODUCT ENGINEER Lab [facility] [address] [place] [phone] Restless legs syndrome (RLS); Low iron 09/17/2023 Travel 09/15/2023 11:00 AM AUTOMOTIVE PRODUCT ENGINEER Office Visit [facility] [address] [phone] Rosalba Pendleton APRN CNP Goltz, Bennett Ezra, PA-C Delayed sleep phase syndrome (Primary Dx); History of sleep apnea; Morning headache; Insomnia, unspecified type; Restless legs syndrome (RLS); Low iron 09/13/2023 Travel 07/16/2023 MyC Medical Advice [facility] [address] [phone] Sheri Edmonds RN 07/15/2023 9:00 AM CDT Virtual Visit [facility] [address] [phone] Rosalba Pendleton APRN CNP Migraine without aura and without status migrainosus, not intractable (Primary Dx); History of sleep apnea; Morning headache; Insomnia, unspecified type 07/15/2023 Telephone [facility] [address] [phone] Rosalba Pendleton APRN CNP Clinic Care Coordination - Follow-up 07/15/2023 Telephone [facility] [address] [phone] Rosalba Pendleton APRN CNP Prior Auth - Medication (Zavegepant HCl 10 MG/ACT SOLN ) 07/14/2023 10:00 AM CDT Office Visit [facility] [address] [phone] Abby Vasquez MD Irritable bowel syndrome with constipation (Primary Dx); Constipation, unspecified constipation type; Pelvic floor dysfunction 07/14/2023 Travel 07/10/2023 MyC Medical Advice [facility] [address] [phone] Abby Vasquez MD 07/09/2023 1:34 PM CDT - 07/09/2023 6:47 PM CDT Emergency [facility] Emergency Dept [address] [place] [phone] Ashly Colvin DO Abdominal pain, unspecified abdominal location Discharge Disposition: Home or Self Care 07/09/2023 Travel 07/07/2023 Travel 06/28/2023 MyC Medical Advice [facility] [address] [phone] Vivian Carter from Last 3 Months Immunizations Name Administration Dates Next Due DTAP (<7y) 11/16/2003, 6,01/31/1993,1991,,1991 HEPA 03/24/2013,11/01/2006 HIB(PRP-OMP)(PedvaxHIB) 06/14/1992,1991, HPV 02/02/2011,09/19/2010 HepB 05/15/2004,12/18/2003,11/16/2003 Influenza (IIV3) PF 05/23/2013 MMR 03/31/1996,06/14/1992 Poliovirus, inactivated (IPV) 03/31/1996, 991,1991,1991 TDAP (Adacel,Boostrix) 03/24/2013 Varicella 03/24/2013,08/03/1995 Family History Medical History Relation Comments Cancer [...] Tobacco: Never Tobacco Cessation:Counseling Given: Not Answered Alcohol Use Standard Drinks/Week Comments No 0 (1 standard drink = 0.6 oz pur e alcohol) PHQ-2 Answer Date Recorded PHQ-2 Score 4 07/15/2023 Adolescent Education Answer Date Record ed Getting School Help Needed Not on file 06/04 Sex and Gender Information Value Date Recorded Sex Assigned at Female 10/31/2021 7:59 AM AUTOMOTIVE PRODUCT ENGINEER Gender Identity Female 10/31/2021 7:59 AM AUTOMOTIVE PRODUCT ENGINEER Sexual Orientation Straight 10/31/2021 7: 59 AM AUTOMOTIVE PRODUCT ENGINEER Last Filed Vital Signs Vital Sign Reading Time Taken Comments Blood Pressure 108/78 09/21/2023 9:49 AM AUTOMOTIVE PRODUCT ENGINEER Pulse 85 09/21/2023 9:49 AM AUTOMOTIVE PRODUCT ENGINEER Temperature 36.3 ??C (97.3 ??F) 07/09/2023 12:06 PM C DT Respiratory Rate 18 07/09/2023 6:46 PM CDT Oxygen Saturation 100% 09/21/2023 9:49 AM AUTOMOTIVE PRODUCT ENGINEER Inhaled Oxygen Concentration - - Weight 80.1 kg (176 lb 9.6 oz) 09/15/2023 11:00 AM AUTOMOTIVE PRODUCT ENGINEER Height 167.6 cm (5' 5.98) 09/15/2023 11:[address] Body Mass Index 28.52 09/15/2023 11:00 AM AUTOMOTIVE PRODUCT ENGINEER Plan of Treatment Upcoming Encounters Date Type Department Care Team (Late st Contact Info) Description 09/29/2023 9:30 AM AUTOMOTIVE PRODUCT ENGINEER Ancillary Procedure [facility] [address] [place] [address] Zain Quintana MD [address] [place] [address] 10/01/2023 9:30 AM AUTOMOTIVE PRODUCT ENGINEER Ancillary Procedure [facility] [address] [place] [address] Zain Quintana MD [address] [place] [address] [phone] 10/18/2023 PRE VISIT [facility] [address] [phone] Airam Hodges PA-C [address] [place] [address] [phone] Previsit 10/21/2023 11:30 AM AUTOMOTIVE PRODUCT ENGINEER Therapy Visit [address] [address] Zain Quintana MD [address] [place] [address] [phone] Lainey Simon, PT [address] [place] [address] 10/26/2023 1:00 PM AUTOMOTIVE PRODUCT ENGINEER Virtual Visit [facility] [address] [phone] Latricia Pettit PA-C [address] [place] [address] 10/28/2023 10:50 AM AUTOMOTIVE PRODUCT ENGINEER Therapy Visit [address] [place] [address] Zain Quintana MD [address] [place] [address] [phone] Lainey Simon, PT [address] [place] [address] 11/04/2023 10:50 AM AUTOMOTIVE PRODUCT ENGINEER Therapy Visit [facility] [address] [facility] [address] [place] [address] Zain Quintana MD [address] [place], [place] [address] Lainey Simon, JAY [address] [place] [address] 11/24/2023 10:40 AM CDT Office Visit [facility] [address] [place] [phone] Abby Vasquez MD [address] [place] [address] [phone] 01/13/2024 10:00 AM CDT Virtual Visit [facility] [address] [place] [phone] Rosalba Pendleton, LABOR UNION BUSINESS REPRESENTATIVE [address] [id number] [place], [place] [phone] 01/20/2024 8:00 PM CDT Therapy Visit [facility] [address] [phone] 03/14/2024 10:30 AM CDT Office Visit [facility] [address] [phone] Abhishek Acevedo PA-C [address] [phone] 03/21/2024 11:30 AM CDT Office Visit [facility] [address] [place] [phone] Zain Quintana MD [address] [place] [address] Health Maintenance Due Date Last Done Comments ADVANCE CARE PLANNING 1991 ANNUAL REVIEW OF HM ORDERS 1991 CT COLONOGRAPHY 1991 FIT 1991 FLEX SIG 1991 sDNA (Cologuard) 1991 HIV SCREENING 2006 HEPATITIS C SCREENING 2009 MEDICARE ANNUAL WELLNESS VISIT 2009 DTAP/TDAP/TD IMMUNIZATION (8 - Td or Tdap) 03/24/2023 03/24/2013, 11/16/2003, 11/16/2003, Additional history exists PHQ-2 (once per calendar year) 2023 07/15/2023, 07/15/2023, 04/02/2023, Additional history exists PAP 08/20/2026 08/20/2023, 120 04/2023, 11/24/2021, Additional history exists COLONOSCOPY 10/16/2026 10/16/2021, 0 11/2021, 12/10/2016, Additional history exists COLORECTAL CANCER SCREENING 10/16/2026 IPV IMMUNIZATION Completed 03/31/1996, , 1991, Additional history exists HEPATITIS B IMMUNIZATION Completed 004, 12/18/2003, 11/16/2003 HPV IMMUNIZATION Completed 02/02/2011, 03/2011, 06/09/2007 COVID-19 Vaccine Completed 06/18/2023, 05/2022, 10/31/2021, Additional history exists INFLUENZA VACCINE Completed 06/18/2023, , 06/04/2021, Additional history exists MENINGITIS IMMUNIZATION Aged Out No l onger eligible based on patient's age to complete this topic Pneumococcal Vaccine: Pediatrics (0 to 5 Years) and At-Risk Patients (6 to 64 Years) Aged Out No longer eligible based on patient's age to complete this topic RSV MONOCLONAL ANTIBODY Aged Out No l onger eligible based on patient's age to complete this topic Procedures Procedure Name Priority Date/Time Associated Diagnosis Comments XR ABDOMEN 1 VIEW Routine 09/27/2023 9:0 2 AM AUTOMOTIVE PRODUCT ENGINEER Slow transit constipation FERRITIN Routine 09/17/2023 1:20 PM AUTOMOTIVE PRODUCT ENGINEER Restless legs syndrome (RLS) Low iron CT ABDOMEN PELVIS W CONTRAST STAT 07/09/2023 4:29 PM CDT HCG QUALITATIVE URINE STAT 07/09/2023 3:47 PM CDT ROUTINE UA WITH MICROSCOPIC REFLEX TO CULTURE STAT 07/09/2023 3:47 PM CDT CBC WITH PLATELETS & DIFFERENTIAL STAT 07/09/2023 1:44 PM CDT HCG QUALITATIVE STAT 07/09/2023 1:44 PM CDT EXTRA RED TOP TUBE STAT 07/09/2023 1: 44 PM CDT EXTRA BLUE TOP TUBE STAT 07/09/2023 1 :44 PM CDT CBC WITH PLATELETS AND DIFFERENTIAL STAT 07/09/2023 1:44 PM CDT EXTRA TUBE STAT 07/09/2023 1:44 PM CDT MAGNESIUM STAT 07/09/2023 1:44 PM CDT LIPASE STAT 07/09/2023 1:44 PM CDT COMPREHENSIVE METABOLIC PANEL STAT 07/09/2023 1:44 PM CDT from Last 3 Months Results * XR Abdomen 1 View (09/27/2023 9:02 AM AUTOMOTIVE PRODUCT ENGINEER) Anatomical Region Laterality Modality Abdomen/Pelvis Computed Radiogr aphy Impressions 09/27/2023 10:27 AM AUTOMOTIVE PRODUCT ENGINEER IMPRESSION: Sitz markers are seen along the ascending and transverse colon. Nonobstructive bowel gas pattern. Moderate to large stool burden is seen throughout the colon. No acute bony abnormality. DERREK VILLAGOMEZ MD SYSTEM ID: [id number] Narrative 09/27/2023 10:27 AM AUTOMOTIVE PRODUCT ENGINEER ABDOMEN TWO VIEWS 09/27/2023 9:02 AM HISTORY: [...] bony abnormality. DERREK VILLAGOMEZ MD SYSTEM ID: [id number] Zain Quintana MD IMG DIAGNOSTIC IMAGI NG ORDERABLES * Ferritin (09/17/2023 1:20 PM AUTOMOTIVE PRODUCT ENGINEER) Ferritin 40 6 - 175 ng/mL 09/17/2023 9:34 PM AUTOMOTIVE PRODUCT ENGINEER [facility] Blood BLOOD SPECIMEN / Unknown Venipuncture / Unknown 09/17/2023 1:20 PM AUTOMOTIVE PRODUCT ENGINEER 09/17/2023 1:20 PM AUTOMOTIVE PRODUCT ENGINEER Abhishek Acevedo PA-C LAB - BLOOD SOTO ZAYAS [facility] Organization Address City/State/ZIP Co de Phone Number [facility] [address], [address] [phone], [facility] [phone] * CT Abdomen Pelvis w Contrast (07/09/2023 4:29 PM CDT) Anatomical Region Laterality Modality Abdomen/Pelvis, SUBRAD CT SHANNON DY, UMP CT ABDOMEN PELVIS, RAD CT Computed Tomography 07/09/2023 4:29 PM CDT Impressions 07/09/2023 4:45 PM CDT IMPRESSION: No acute findings or other explanation for symptoms. Narrative 07/09/2023 4:45 PM CDT EXAM: CT ABDOMEN PELVIS W CONTRAST LOCATION: [facility] DATE: 07/09/2023 INDICATION: r o SBO. hx of IBS, diffuse lower abd pain,constipation, and decrease in appetite. COMPARISON: 07/15/2022 TECHNIQUE: CT scan of the abdomen and pelvis was performed following injection of IV contrast. Multiplanar reformats were obtained. Dose reduction techniques were used. CONTRAST: 89mL Isovue 370 FINDINGS: LOWER CHEST: Normal. HEPATOBILIARY: The liver and bile ducts are unremarkable. The gallbladder is absent. PANCREAS: Normal. SPLEEN: Normal. ADRENAL GLANDS: Normal. KIDNEYS/BLADDER: Normal. BOWEL: No obstruction or inflammatory change. LYMPH NODES: Normal. VASCULATURE: Unremarkable. PELVIC ORGANS: Normal. MUSCULOSKELETAL: Normal. Procedure Note Cuong Waldrop MD - 07/09/2023 EXAM: CT ABDOMEN PELVIS W CONTRAST LOCATION: [facility] DATE: 07/09/2023 INDICATION: r o SBO. hx of IBS, diffuse lower abd pain,constipation, anddecrease in appetite. COMPARISON: 07/15/2022 TECHNIQUE: CT scan of the abdomen and pelvis was performed followinginjection of IV contrast. Multiplanar reformats were obtained. Dosereduction techniques were used. CONTRAST: 89mL Isovue 370 FINDINGS: LOWER CHEST: Normal. HEPATOBILIARY: The liver and bile ducts are unremarkable. The gallbladderis absent. PANCREAS: Normal. SPLEEN: Normal. ADRENAL GLANDS: Normal. KIDNEYS/BLADDER: Normal. BOWEL: No obstruction or inflammatory change. LYMPH NODES: Normal. VASCULATURE: Unremarkable. PELVIC ORGANS: Normal. MUSCULOSKELETAL: Normal. IMPRESSION: No acute findings or other explanation for symptoms. Ashly Colvin DO IMG CT ORDERABLES * HCG qualitative urine (UPT) (07/09/2023 3:47 PM CDT) hCG Urine Qualitative Negative Negative GADIEL 07/09/2023 4:49 PM CDT [facility] Comment:This test is for scr eening purposes. Results should be interpreted along with the clinical picture. Confirmation testing is available if warranted by ordering [id number], HCG Quantitative . Urine URINE SPECIMEN OBTAINED BY CLEAN CATCH PROCEDURE / Unknown Non-blood Collection / Unknown 07/09/2023 3:47 PM CDT 07/09/2023 3:57 PM CDT Ashly Vinicius DO LAB - URINE ORDERABL ES [facility] [address] Lab (1st floor, no room number) [place] [address], [facility] [phone] * (ABNORMAL) UA with Microscopic reflex to Culture (07/09/2023 3:47 PM CDT) Color Urine Light Yellow Colorless, Straw, Light Yellow, Yellow 07/09/2023 4:23 PM CDT LABORATORY Appearance Urine Clear Clear 07/09/20 4:23 PM CDT LABORATORY Glucose Urine Negative Negative mg/dL 07/09/2023 4:23 PM CDT LABORATORY Bilirubin Urine Negative Negative 4:23 PM CDT LABORATORY Ketones Urine Negative Negative mg/dL 07/09/2023 4:23 PM CDT LABORATORY Specific [place] Urine 1.005 1.003 - 1.035 07/09/2023 4:23 PM CDT LABORATORY Blood Urine Negative Negative 07/09/2023 4:23 PM CDT LABORATORY pH Urine 6.0 5.0 - 7.0 07/09/2023 4:23 PM CDT LABORATORY Protein Albumin Urine Negative Negative mg/dL 07/09/2023 4:23 PM CDT LABORATORY Urobilinogen Urine Normal Normal, 2.0 mg/dL 07/09/2023 4:23 PM CDT LABORATORY Nitrite Urine Negative Negative 07/09/2023 4:23 PM CDT LABORATORY Leukocyte Esterase Urine Negative Negative 07/09/2023 4:23 PM CDT LABORATORY RBC Urine <1 <=2 /HPF 07/09/2023 4:23 PM CDT LABORATORY WBC Urine 1 <=5 /HPF 07/09/2023 4:23 PM CDT LABORATORY Squamous Epithelials Urine 4(H) <=1 /HPF 07/09/2023 4:23 PM CDT LABORATORY Urine URINE SPECIMEN OBTAINED BY CLEAN CATCH PROCEDURE / Unknown Non-blood Collection / Unknown 07/09/2023 3:47 PM CDT 07/09/2023 3:57 PM CDT Narrative [facility] - 07/09/2023 4:23 PM CDT Urine Culture not indicated Ashly Colvin DO LAB - URINE ORDERABL ES [facility] [address] Lab (1st floor, no room number) [place] [address], [facility] [phone] * Extra Red Top Tube (07/09/2023 1:44 PM CDT) Hold Specimen [facility] 07/09/2023 3:01 PM CDT [facility] Blood BLOOD SPECIMEN / Unknown Venipuncture / Unknown 07/09/2023 1:44 PM CDT 07/09/2023 1:54 PM CDT Ashly Colvin DO LAB - BLOOD ORDERABL ES Performing Organization Address [facility]/ZIP Co de Phone Number [facility] [address] Lab (1st floor, no room number) [place] [address], [facility] [phone] * Extra Blue Top Tube (07/09/2023 1:44 PM CDT) Hold Specimen [facility] 07/09/2023 3:01 PM CDT [facility] Blood BLOOD SPECIMEN / Unknown Venipuncture / Unknown 07/09/2023 1:44 PM CDT 07/09/2023 1:54 PM CDT Ashly Colvin DO LAB - BLOOD ORDERABL ES [facility] [address] Lab (1st floor, no room number) [place] [address], [facility] [phone] * CBC with platelets and differential (07/09/2023 1:44 PM CDT) WBC Count 4.4 4.0 - 11.0 10e3/uL 07/09/2023 1:57 PM CDT [facility] RBC Count 4.43 3.80 - 5.20 10e6/uL 07/09/2023 1:57 PM CDT [facility] Hemoglobin 13.0 11.7 - 15.7 g/dL 07/09/2023 1:57 PM CDT [facility] Hematocrit 39.0 35.0 - 47.0 % 07/09/2023 1:57 PM CDT [facility] MCV 88 78 - 100 fL 07/09/2023 1:57 PM CDT [facility] MCH 29.3 26.5 - 33.0 pg 07/09/2023 1:57 PM CDT [facility] MCHC 33.3 31.5 - 36.5 g/dL 07/09/2023 1:57 PM CDT [facility] RDW 13.8 10.0 - 15.0 % 07/09/2023 1:57 PM CDT [facility] Platelet Count 249 150 - 450 10e3/uL 07/09/2023 1:57 PM CDT [facility] % Neutrophils 51 % 07/09/2023 1:57 PM CDT [facility] % Lymphocytes 39 % 07/09/2023 1:57 PM CDT [facility] % Monocytes 8 % 07/09/2023 1:57 PM CDT [facility] % Eosinophils 1 % 07/09/2023 1:57 PM CDT [facility] % Basophils 1 % 07/09/2023 1:57 PM CDT [facility] % Immature Granulocytes 0 % 07/09/2023 1:57 PM CDT [facility] NRBCs per 100 WBC 0 <1 /100 023 1:57 PM CDT [facility] Absolute Neutrophils 2.2 1.6 - 8.3 10e3/uL 07/09/2023 1:57 PM CDT [facility] Absolute Lymphocytes 1.7 0.8 - 5.3 10e3/uL 07/09/2023 1:57 PM CDT [facility] Absolute Monocytes 0.3 0.0 - 1.3 10e3/uL 07/09/2023 1:57 PM CDT [facility] Absolute Eosinophils 0.1 0.0 - 0.7 10e3/uL 07/09/2023 1:57 PM CDT [facility] Absolute Basophils 0.0 0.0 - 0.2 10e3/uL 07/09/2023 1:57 PM CDT [facility] Absolute Immature Granulocytes 0.0 <=0.4 10e3/uL 07/09/2023 1:57 PM CDT [facility] Absolute NRBCs 0.0 10e3/uL 07/09/2023 1:57 PM CDT [facility] Blood BLOOD SPECIMEN / Unknown Venipuncture / Unknown 07/09/2023 1:44 PM CDT 07/09/2023 1:54 PM CDT Ashly Colvin DO LAB - BLOOD ORDERABL ES [facility] [address] Lab (1st floor, no room number) [place] [address], [facility] [phone] * Magnesium (07/09/2023 1:44 PM CDT) Magnesium 2.3 1.7 - 2.3 mg/dL 07/09/2023 2:16 PM CDT [facility] Blood BLOOD SPECIMEN / Unknown Venipuncture / Unknown 07/09/2023 1:44 PM CDT 07/09/2023 1:54 PM CDT Ashly Colvin DO LAB - BLOOD ORDERABL ES Performing Organization Address [facility]/ZIP Co de Phone Number [facility] [address] Lab (1st floor, no room number) [place] [address], [facility] [phone] * Lipase (07/09/2023 1:44 PM CDT) Lipase 30 13 - 60 U/L 07/09/2023 2:16 PM CDT [facility] Blood BLOOD SPECIMEN / Unknown Venipuncture / Unknown 07/09/2023 1:44 PM CDT 07/09/2023 1:54 PM CDT Ashly Colvin DO LAB - BLOOD ORDERABL ES [facility] [address] Lab (1st floor, no room number) [place] [address], [facility] [phone] * HCG QUALitative (blood) (07/09/2023 1:44 PM CDT) hCG Serum Qualitative Negative Negative GADIEL 07/09/2023 4:05 PM CDT [facility] Comment:This test is for scr eening purposes. Results should be interpreted along with the clinical picture. Confirmation testing is available if warranted by ordering [id number], HCG Quantitative . Blood BLOOD SPECIMEN / Unknown Venipuncture / Unknown 07/09/2023 1:44 PM CDT 07/09/2023 1:54 PM CDT Ashly Colvin DO LAB - BLOOD ORDERABL ES [facility] [address] [facility] Lab (1st floor, no room number) [place] [phone], [facility] [phone] * Comprehensive metabolic panel (07/09/2023 1:44 PM CDT) Sodium 135 135 - 145 mmol/L 07/09/2023 2:16 PM CDT [facility] Comment:Reference intervals for this test were updated on 06/08/2023 to more accurately reflect our healthy population. There may be differences in the flagging of prior results with similar values performed with this method. Interpretation of those prior results can be made in the context of the updated reference intervals. Potassium 4.3 3.4 - 5.3 mmol/L 07/09/2023 2:16 PM CDT LABORATORY Carbon Dioxide (CO2) 27 22 - 29 mmol/L 07/09/2023 2:16 PM CDT [facility] Anion Gap 10 7 - 15 mmol/L 07/09/2023 2:16 PM CDT [facility] Urea Nitrogen 8.6 6.0 - 20.0 mg/dL 07/09/2023 2:16 PM CDT [facility] Creatinine 0.71 0.51 - 0.95 mg/dL 07/09/2023 2:16 PM CDT [facility] GFR Estimate >90 >60 mL/min/1. 73m2 07/09/2023 2:16 PM CDT [facility] Calcium 9.5 8.6 - 10.0 mg/dL 07/09/2023 2:16 PM CDT [facility] Chloride 98 98 - 107 mmol/L 07/09/2023 2:16 PM CDT [facility] Glucose 77 70 - 99 mg/dL 07/09/2023 2:16 PM CDT [facility] Alkaline Phosphatase 91 35 - 104 U/L 07/09/2023 2:16 PM CDT [facility] AST 27 0 - 45 U/L 07/09/2023 2:16 PM CDT [facility] Comment:Reference intervals for this test were updated on 02/22/2023 to more accurately reflect our healthy population. There may be differences in the flagging of prior results with similar values performed with this method. Interpretation of those prior results can be made in the context of the updated reference intervals. ALT 24 0 - 50 U/L 07/09/2023 2:16 PM CDT [facility] Comment:Reference intervals for this test were updated on 02/22/2023 to more accurately reflect our healthy population. There may be differences in the flagging of prior results with similar values performed with this method. Interpretation of those prior results can be made in the context of the updated reference intervals. Protein Total 7.6 6.4 - 8.3 g/dL 07/09/2023 2:16 PM CDT [facility] Albumin 5.0 3.5 - 5.2 g/dL 07/09/2023 2:16 PM CDT [facility] Bilirubin Total 0.5 <=1.2 mg/dL 07/09/2023 2:16 PM CDT [facility] Blood BLOOD SPECIMEN / Unknown Venipuncture / Unknown 07/09/2023 1:44 PM CDT 07/09/2023 1:54 PM CDT Ashly Colvin DO LAB - BLOOD ORDERABL ES [facility] Acute Care Lab [address] [facility] Lab (1st floor, no room number) [place] [address], [facility] [phone] from Last 3 Months Care Teams Sales Solutions Representative Relationship Specialty Start Date End Date Monty Musa MD [facility] [address] [place] [address] PCP - General Family Medicine 08/13/21 Alfonso Tang [facility] [address] [place] [address] Family Practice 08/13/21 Dayanara Bee MD [address] [facility] [address] [place] [address] Pediatrics 12/26/14 Min Lange MD [address] [facility] [address] [place] [address] Neurology 03/30/16 Marlo Madsen MD 420 [facility] 508 [place] [address] Cardiology 10/27/16 Mel Buckley, RN Nurse Coordinator Physical Medicine and Rehabilitation 12/02/16 Douglas Cadet MD 500 [place] [address] Gastroenterology 08/13/21 Rosalba Pendleton APRN CLINICAL LABORATORY SCIENTIST [address] [place] [address] Nurse Practitioner Neurology 09/05/21 Rosalba Pendleton APRN CLINICAL LABORATORY SCIENTIST [address] [place] [address] Assigned Neuroscience Provider 11/09/21 Marlo Madsen MD [address] [place] [address] Assigned Heart and Vascular Provider 03/14/22 Abby Vasquez MD [address] [place] [address] Gastroenterology 07/16/22 Abby Vasquez MD [address] [place] [address] Assigned PCP 09/26/22 Airam Hodges PA-C [address] [place] [address] [id number] Physician [employer]sphere Commerce Consultant Surgery 07/19/23
--- OUTSIDE RECORDS SUMMARY | 2023-09-27 15:44 | XMS_ITS | Referral Summary ---
Author Name Unknown Organization [place] Address [address] [facility] [place] [address] Care Team Providers Care Clerical Assigner Name Role Phone Monty Musa MD Primary Care Provider Alfonso Tang Unavailable Unavailable Dayanara Bee MD Unavailable [phone] Min Lange MD Unavailable Unavailable Marlo Madsen MD Unavailable [phone] Mel Buckley RN Unavailable [phone] Douglas Cadet MD Unavailable [phone] Rosalba Pendleton APRN DISTRIBUTION TRANSFORMER ASSEMBLER Unavaila ble Rosalba Pendleton APRN DISTRIBUTION TRANSFORMER ASSEMBLER Unavaila ble Marlo Madsen MD Unavailable [phone] Abby Vasquez MD Unavailable Abby Vasquez MD Unavailable Airam Hodges PA-C Unavailable [phone] Encounters Date Type Department Care Team Description 09/27/2023 Travel 09/27/2023 9:30 AM DIGITIZER OPERATOR Ancillary Procedure [address] [place] [address] Zain Quintana MD Slow transit constipation 09/26/2023 Refill [facility] [address] [phone] Abby Vasquez MD Medication Refill 09/21/2023 Travel 09/21/2023 10:00 AM DIGITIZER OPERATOR Office Visit [facility] [address] [phone] Zain Quintana MD Slow transit constipation (Primary Dx); Constipation, unspecified constipation type 09/19/2023 Travel 09/17/2023 Travel 09/17/2023 1:30 PM DIGITIZER OPERATOR Lab [facility] [address] [place] [phone] Restless legs syndrome (RLS); Low iron 09/15/2023 11:00 AM DIGITIZER OPERATOR Office Visit [facility] Sleep [facility] [address] [phone] Rosalba Pendleton APRN CNP Goltz, Bennett Ezra, PA-C Delayed sleep phase syndrome (Primary Dx); History of sleep apnea; Morning headache; Insomnia, unspecified type; Restless legs syndrome (RLS); Low iron 09/13/2023 Travel 07/16/2023 MyC Medical Advice [facility] Gastroenterology [facility] [address] [place] [address] Sheri Edmonds RN 07/15/2023 Telephone [facility] Neurology Clinic [address] [address] Rosalba Pendleton APRN CNP Clinic Care Coordination - Follow-up 07/15/2023 Telephone [facility] [address] [address] Rosalba Pendleton APRN CNP Prior Auth - Medication (Zavegepant HCl 10 MG/ACT SOLN ) 07/15/2023 9:00 AM CDT Virtual Visit [facility] Neurology [facility] [address] [place] [phone] Rosalba Pendleton APRN CNP Migraine without aura and without status migrainosus, not intractable (Primary Dx); History of sleep apnea; Morning headache; Insomnia, unspecified type 07/14/2023 Travel 07/14/2023 10:00 AM CDT Office Visit [facility] [address] [address] Abby Vasquez MD Irritable bowel syndrome with constipation (Primary Dx); Constipation, unspecified constipation type; Pelvic floor dysfunction 07/10/2023 MyC Medical Advice [facility] [address] [address] Abby Vasquez MD 07/09/2023 Travel 07/09/2023 1:34 PM CDT - 07/09/2023 6:47 PM CDT Emergency [facility] Emergency Dept [address] [place] [phone] Ashly Colvin DO Abdominal pain, unspecified abdominal location Discharge Disposition: Home or Self Care 07/07/2023 Travel 06/28/2023 MyC Medical Advice [facility] [address] [phone] Vivian Carter from Last 3 Months Allergies Active Allergy Reactions Criticality Noted Date [...] -Mg Supplement 500 MG TABSIndications:C hronic idiopathic constipation,Sdv Pilot/Navigator/Dds Operator rianna abdominal pain Take 1 tablet (500 [...] aura and without status migrainosus, not intractable Zenda 10 mg in nostril at onset of [...] system disorder 10/05/2013 Abdominal pain, generalized 10/05/2013 Immunizations Name Administration Dates Next Due DTAP (<7y) 11/16/2003, 6,01/31/1993,1991,,1991 HEPA 03/24/2013,11/01/2006 HIB(PRP-OMP)(PedvaxHIB) 06/14/1992,1991, HPV 02/02/2011,09/19/2010 HepB 05/15/2004,12/18/2003,11/16/2003 Influenza (IIV3) PF 05/23/2013 MMR 03/31/1996,06/14/1992 Poliovirus, inactivated (IPV) 03/31/1996, 991,1991,1991 TDAP (Adacel,Boostrix) 03/24/2013 Varicella 03/24/2013,08/03/1995 Social History Tobacco Use Types Packs/Day Years [...] Sex Assigned at Female 10/31/2021 7:59 AM DIGITIZER OPERATOR Gender Identity Female 10/31/2021 7:59 AM DIGITIZER OPERATOR Sexual Orientation Straight 10/31/2021 7: 59 AM DIGITIZER OPERATOR Last Filed Vital Signs Vital Sign Reading Time Taken Comments Blood Pressure 108/78 09/21/2023 9:49 AM DIGITIZER OPERATOR Pulse 85 09/21/2023 9:49 AM DIGITIZER OPERATOR Temperature 36.3 ??C (97.3 ??F) 07/09/2023 12:06 PM C DT Respiratory Rate 18 07/09/2023 6:46 PM CDT Oxygen Saturation 100% 09/21/2023 9:49 AM DIGITIZER OPERATOR Inhaled Oxygen Concentration - - Weight 80.1 kg (176 lb 9.6 oz) 09/15/2023 11:00 AM DIGITIZER OPERATOR Height 167.6 cm (5' 5.98) 09/15/2023 11:[address] Body Mass Index 28.52 09/15/2023 11:00 AM DIGITIZER OPERATOR Plan of Treatment Upcoming Encounters Date Type Department Care Team (Late st Contact Info) Description 09/29/2023 9:30 AM DIGITIZER OPERATOR Ancillary Procedure [address] [place] [phone] Zain Quintana MD 500 [place], [place] 15[address] 10/01/2023 9:30 AM DIGITIZER OPERATOR Ancillary Procedure [facility] [address] [facility] [address] [place] [phone] Zain Quintana MD [address] [place], [place] 5256[address] 10/18/2023 PRE VISIT [facility] [place] [address] [facility] [address] 4th [place] [phone] Airam Hodges PA-C 500 [place], [place] 5957[address] Previsit 10/21/2023 11:30 AM DIGITIZER OPERATOR Therapy Visit [address] [address] Zain Quintana MD [address] [place] [address] Lainey Simon, PT [address] [place] [address] 10/26/2023 1:00 PM DIGITIZER OPERATOR Virtual Visit [facility] G[facility]enterology [facility] [address] [phone] Latricia Pettit PA-C [address] [place] [address] 10/28/2023 10:50 AM DIGITIZER OPERATOR Therapy Visit [address] [address] Zain Quintana MD [address] [place] [address] Lainey Simon, PT [address] [place] [address] 11/04/2023 10:50 AM DIGITIZER OPERATOR Therapy Visit [address] [address] Zain Quintana MD [address] [place] [address] Lainey Simon, PT [address] [place] [address] 11/24/2023 10:40 AM CDT Office Visit [facility]astroenterology [facility] [address] [place] [phone] Abby Vasquez MD [address] [place] [address] 01/13/2024 10:00 AM CDT Virtual Visit [facility] Neurology Clinic [address] [place] [phone] Rosalba Pendleton, MAXIMILIANO DISTRIBUTION TRANSFORMER ASSEMBLER [address] [place] [address] [id number] [place], [place] 8[address] 01/20/2024 8:00 PM CDT Therapy Visit [facility] Sleep [address] [phone] 03/14/2024 10:30 AM CDT Office Visit [facility] Sleep [address] [phone] Abhishek Acevedo PA-C [address] [id number] 03/21/2024 11:30 AM CDT Office Visit [facility] [address] [phone] Zain Quintana MD [address] [place] [address] Procedures Procedure Name Priority Date/Time Associated Diagnosis Comments XR ABDOMEN 1 VIEW Routine 09/27/2023 9:0 2 AM DIGITIZER OPERATOR Slow transit constipation FERRITIN Routine 09/17/2023 1:20 PM DIGITIZER OPERATOR Restless legs syndrome (RLS) Low iron CT [...] XR Abdomen 1 View (09/27/2023 9:02 AM DIGITIZER OPERATOR) Anatomical Region Laterality Modality Abdomen/Pelvis Computed Radiogr aphy Impressions 09/27/2023 10:27 AM DIGITIZER OPERATOR IMPRESSION: Sitz markers are seen along the ascending and transverse colon. Nonobstructive bowel gas pattern. Moderate to large stool burden is seen throughout the colon. No acute bony abnormality. DERREK VILLAGOMEZ MD SYSTEM ID: [id number] Narrative 09/27/2023 10:27 AM DIGITIZER OPERATOR ABDOMEN TWO VIEWS 09/27/2023 9:02 AM HISTORY: [...] bony abnormality. DERREK VILLAGOMEZ MD SYSTEM ID: [id number] Zain Quintana MD IMG DIAGNOSTIC IMAGI NG ORDERABLES * Ferritin (09/17/2023 1:20 PM DIGITIZER OPERATOR) Ferritin 40 6 - 175 ng/mL 09/17/2023 9:34 PM DIGITIZER OPERATOR [facility] Blood BLOOD SPECIMEN / Unknown Venipuncture / Unknown 09/17/2023 1:20 PM DIGITIZER OPERATOR 09/17/2023 1:20 PM DIGITIZER OPERATOR Abhishek Acevedo PA-C LAB - BLOOD SOTO ZAYAS [facility] Organization Address City/State/ZIP Co de Phone Number [facility] Core Lab [address] [facility], Room 3-[address] [place] [phone], [facility] [phone] * CT Abdomen Pelvis w Contrast (07/09/2023 4:29 PM CDT) Anatomical Region Laterality Modality Abdomen/Pelvis, SUBRAD CT SHANNON DY, UMP CT ABDOMEN PELVIS, RAD CT Computed Tomography 07/09/2023 4:29 PM CDT Impressions 07/09/2023 4:45 PM CDT IMPRESSION: No acute findings or other explanation for symptoms. Narrative 07/09/2023 4:45 PM CDT EXAM: CT ABDOMEN PELVIS W CONTRAST LOCATION: [facility] DATE: 07/09/2023 INDICATION: r o SBO. [...] EXAM: CT ABDOMEN PELVIS W CONTRAST LOCATION: [facility] DATE: 07/09/2023 INDICATION: r o SBO. [...] Negative Negative GADIEL 07/09/2023 4:49 PM CDT LABORATORY Comment:This test is for scr eening purposes. Results should be interpreted along with the clinical picture. Confirmation testing is available if warranted by ordering [id number], HCG Quantitative . Urine URINE SPECIMEN OBTAINED BY CLEAN CATCH PROCEDURE / Unknown Non-blood Collection / Unknown 07/09/2023 3:47 PM CDT 07/09/2023 3:57 PM CDT Ashly Colvin DO LAB - URINE ORDERABL ES [facility] Acute Care Lab [address] [facility] Lab (1st floor, no room number) [place] [address], [facility] [phone] * (ABNORMAL) UA with Microscopic reflex to [...] mg/dL 07/09/2023 4:23 PM CDT LABORATORY Specific Reynolds Urine 1.005 1.003 - 1.035 07/09/2023 4:23 [...] PM CDT 07/09/2023 3:57 PM CDT Narrative LABORATORY - 07/09/2023 4:23 PM CDT Urine Culture not indicated Ashly Colvin DO LAB - URINE ORDERABL ES LABORATORY [facility] Acute Care Lab [address] [facility] Lab (1st floor, no room number) [place] [address], [facility] [phone] * Extra Red Top Tube (07/09/2023 1:44 PM CDT) Hold Specimen [facility] 07/09/2023 3:01 PM CDT [facility] Blood BLOOD SPECIMEN / Unknown Venipuncture / Unknown 07/09/2023 1:44 PM CDT 07/09/2023 1:54 PM CDT Ashly Colvin DO LAB - BLOOD ORDERABL ES LABORATORY [facility] Care Lab [address] Lab (1st floor, no room number) [place] [phone], [facility] [phone] * Extra Blue Top Tube (07/09/2023 1:44 PM CDT) Hold Specimen [facility] 07/09/2023 3:01 PM CDT [facility] Blood BLOOD SPECIMEN / Unknown Venipuncture / Unknown 07/09/2023 1:44 PM CDT 07/09/2023 1:54 PM CDT Ashly Colvin DO LAB - BLOOD ORDERABL ES [facility] Lab [address] Lab (1st floor, no room number) [place] [address], [facility] [phone] * CBC with platelets and differential (07/09/2023 [...] Colvin DO LAB - BLOOD ORDERABL ES LABORATORY [facility] Care Lab [address] Lab (1st floor, no room number) [place] [address], [facility] [phone] * Magnesium (07/09/2023 1:44 PM CDT) Magnesium 2.3 1.7 - 2.3 mg/dL 07/09/2023 2:16 PM CDT [facility] Blood BLOOD SPECIMEN / Unknown Venipuncture / Unknown 07/09/2023 1:44 PM CDT 07/09/2023 1:54 PM CDT Ashly Colvin DO LAB - BLOOD ORDERABL ES Performing Organization Address [facility]/ZIP Co de Phone Number [facility] Lab [address] Lab (1st floor, no room number) [place] [address], [facility] [phone] * Lipase (07/09/2023 1:44 PM CDT) Pathologist [facility] Lipase 30 13 - 60 U/L 07/09/2023 2:16 PM CDT LABORATORY Blood BLOOD SPECIMEN / Unknown Venipuncture / Unknown 07/09/2023 1:44 PM CDT 07/09/2023 1:54 PM CDT Ashly Colvin LAB - BLOOD ORDERABL ES LABORATORY [facility] Lab [address] Lab (1st floor, no room number) [place] [address], [facility] [phone] * HCG QUALitative (blood) (07/09/2023 1:44 PM CDT) hCG Serum Qualitative Negative Negative GADIEL 07/09/2023 4:05 PM CDT [facility] Comment:This test is for scr eening purposes. Results should be interpreted along with the clinical picture. Confirmation testing is available if warranted by ordering [id number], HCG Quantitative . Blood BLOOD SPECIMEN / Unknown Venipuncture / Unknown 07/09/2023 1:44 PM CDT 07/09/2023 1:54 PM CDT Ashly Colvin LAB - BLOOD ORDERABL ES [facility] Acute Care Lab [address] [facility] Lab (1st floor, no room number) [place] [address], [facility] [phone] * Comprehensive metabolic panel (07/09/2023 1:44 PM [...] - 107 mmol/L 07/09/2023 2:16 PM CDT LABORATORY Glucose 77 70 - 99 mg/dL [...] LAB - BLOOD ORDERABL ES [facility] Acute Care Lab [address] [facility] Lab (1st floor, no room number) [place] [address], [facility] [phone] from Last 3 Months Care Teams Clerical Assigner Relationship Specialty Start Date End Date Monty Musa MD [facility] [address] [place] [address] PCP - General Family Medicine 08/13/21 Alfonso Tang [facility] [address] [place] [address] Family Practice 08/13/21 Dayanara Bee MD [address] [facility] 75 [place] [address] Pediatrics 12/26/14 Min Lange MD [address] [facility] [address] [place] [address] Neurology 03/30/16 Marlo Madsen MD [address] [facility] [address] [place] [address] Cardiology 10/27/16 Mel Buckley, RN Nurse Coordinator Physical Medicine and Rehabilitation 12/02/16 Douglas Cadet MD [address] [place], [place] 6[address] Gastroenterology 08/13/21 Rosalba Pendleton APRN DISTRIBUTION TRANSFORMER ASSEMBLER [address] [place], [place] [id number] [place] [address] Nurse Practitioner Neurology 09/05/21 Rosalba Pendleton APRN DISTRIBUTION TRANSFORMER ASSEMBLER [address] [place] [address] [id number] [place], [place] 645875 Assigned Neuroscience Provider 11/09/21 Marlo Madsen MD [address] [place] [address] 508 [place], [place] 274025 Assigned Heart and Vascular Provider 03/14/22 Abby Vasquez MD [address] [place] [address] 351675 Gastroenterology 07/16/22 Abby Vasquez MD [address] [place] [address] 536105 Assigned PCP 09/26/22 Airam Hodges PA-C [address] [place] [address] 172365 Physician Cat Operator Surgery 07/19/23
--- OUTSIDE RECORDS SUMMARY | 2023-09-27 15:44 | XMS_ITS | Encounter Summary ---
Author Name Unknown Organization [place] Address [address] [facility] [place] [address] Care Team Providers Care Machine Deicer Element Winder Name Role Phone Monty Musa MD Primary Care Provider Alfonso Tang Unavailable Unavailable Dayanara Bee MD Unavailable [phone] Min Lange MD Unavailable Unavailable Marlo Madsen MD Unavailable [phone] Mel Buckley RN Unavailable [phone] Douglas Cadet MD Unavailable [phone] Rosalba Pendleton APRN SOURCING ASSOCIATE Unavaila ble Rosalba Pendleton APRN SOURCING ASSOCIATE Unavaila ble Marlo Madsen MD Unavailable [phone] Abby Vasquez MD Unavailable Abby Vasquez MD Unavailable Airam Hodges PA-C Unavailable [phone] Encounter Details Date Type Department Care Team (Latest Contact Info) Description 09/27/2023 Travel Social History Tobacco Use Types Packs/Day [...] Sex Assigned at Female 10/31/2021 7:59 AM NEW ACCOUNTS BANKING REPRESENTATIVE Gender Identity Female 10/31/2021 7:59 AM NEW ACCOUNTS BANKING REPRESENTATIVE Sexual Orientation Straight 10/31/2021 7: 59 AM NEW ACCOUNTS BANKING REPRESENTATIVE documented as of this encounter Plan of Treatment Upcoming Encounters Date Type Department Care Team (Late st Contact Info) Description 09/29/2023 9:30 AM NEW ACCOUNTS BANKING REPRESENTATIVE Ancillary Procedure [facility] [address] [facility] [address] [place] [phone] Zain Quintana MD [address] [place], [place] 0[address] 10/01/2023 9:30 AM NEW ACCOUNTS BANKING REPRESENTATIVE Ancillary Procedure [facility] [address] [facility] [address] [place] [phone] Zain Quintana MD [address] [place], [place] [address] 10/18/2023 PRE VISIT [facility] Colon [facility] Rectal Surgery [facility] [place] [address] [facility] [address] 4th [place] [phone] Airam Hodges PA-C 500 [place], [place] 3549[address] Previsit 10/21/2023 11:30 AM NEW ACCOUNTS BANKING REPRESENTATIVE Therapy Visit [facility] Rehabilitation Services [facility] [address] [facility] [address] [place] [address] Zain Quintana MD [address] [place], [place] 82[address] [place] [address] [place] [address] 10/26/2023 1:00 PM NEW ACCOUNTS BANKING REPRESENTATIVE Virtual Visit [facility] Gastroenterology [address] [phone] Latricia Pettit PA-C [address] [place] [address] 10/28/2023 10:50 AM NEW ACCOUNTS BANKING REPRESENTATIVE Therapy Visit [address] [address] Zain Quintana MD [address] [place] [address] 942725 Lainey Simon, JAY [address] [place] [address] 11/04/2023 10:50 AM NEW ACCOUNTS BANKING REPRESENTATIVE Therapy Visit [address] [address] Zain Quintana MD [address] [place] [address] [phone] Lainey Simon, JAY [address] [place] [address] 11/24/2023 10:40 AM CDT Office Visit [facility] Gastroenterology [address] [phone] Abby Vasquez MD [address] [place] [address] 679095 01/13/2024 10:00 AM CDT Virtual Visit [facility] Neurology [address] [phone] Rosalba Pendleton, MEDICAL ILLUSTRATOR SOURCING ASSOCIATE [address] [facility] [id number] [place], [place] [address] 01/20/2024 8:00 PM CDT Therapy Visit [facility] Sleep [facility] [address] [place] [phone] 03/14/2024 10:30 AM CDT Office Visit [facility] [address] [facility] 103 [place] [phone] Abhishek Acevedo PA-C [address] [id number] 03/21/2024 11:30 AM CDT Office Visit [facility] Colon and Rectal Surgery Clinic [address] 4th [place] [phone] Zain Quintana MD [address] [place] [address] 875255 documented as of this encounter Visit Diagnoses Not on filedocumented in this encounter Additional Health Concerns Assessment Noted Time PHQ-9 Depression Total Score: 12 023 8:53 AM CDT documented as of this encounter Care Teams Machine Deicer Element Winder Relationship Specialty Start Date End Date Monty Musa MD [facility] [address] [place] [address] PCP - General Family Medicine 08/13/21 Alfonso Tang [facility] [address] [place] [address] Family Practice 08/13/21 Dayanara Bee MD [address] [place] [address] 75 [place] [address] Pediatrics 12/26/14 Min Lange MD [address] [facility] 75 [place] [address] Neurology 03/30/16 Marlo Madsen MD [address] [place] [address] 508 [place] [address] Cardiology 10/27/16 Mel Buckley, RN Nurse Coordinator Physical Medicine and Rehabilitation 12/02/16 Douglas Cadet MD [address] [place] [address] Gastroenterology 08/13/21 Rosalba Pendleton APRN SOURCING ASSOCIATE [address] [place] [address] 395155 Nurse Practitioner Neurology 09/05/21 Rosalba Pendleton APRN SOURCING ASSOCIATE [address] [place] [address] [phone] Assigned Neuroscience Provider 11/09/21 Marlo Madsen MD [address] [place] [address] [phone] Assigned Heart and Vascular Provider 03/14/22 Abby Vasquez MD [address] [place] [address] 659935 Gastroenterology 07/16/22 Abby Vasquez MD [address] [place] [address] Assigned PCP 09/26/22 Airam Hodges PA-C 500 [place] [address] Physician Scratch Polisher Surgery 07/19/23 documented as of this encounter
--- OUTSIDE RECORDS SUMMARY | 2023-09-27 15:45 | XMS_ITS | Encounter Summary ---
Author Name Unknown Organization [place] Address [address] [facility] [place] [address] Care Team Providers Care Home Teaching Grades 7 And 8 Teacher Name Role Phone Monty Musa MD Primary Care Provider [phone] Alfonso Tang Unavailable Unavailable Dayanara Bee MD Unavailable [phone] Min Lange MD Unavailable Unavailable Marlo Madsen MD Unavailable [phone] Mel Buckley RN Unavailable [phone] Douglas Cadet MD Unavailable [phone] Rosalba Pendleton APRN NURSE PRN Unavaila ble Rosalba Pendleton APRN NURSE PRN Unavaila ble Douglas Cadet MD Unavailable [phone] Marlo Madsen MD Unavailable [phone] Abby Vasquez MD Unavailable Abby Vasquez MD Unavailable Reason for Referral * Consultation (Routine: Next available opening) - Pending Review Specialty Diagnoses / Procedures Referred By Contgeovany t Referred To Contact Diagnoses History of sleep apnea Morning headache Insomnia, unspecified type Rosalba Pendleton APRN NURSE PRN [address] [place] [address] Referral ID Status Reason Start Date Expiration Date V isits Requested Visits Authorized [id number] Pending Review 07/15/2023 07/14/2024 1 1 Question Answer Reason for Referral: Sleep Apnea, Excessive Daytime Sleepiness, Insomnia Scheduling Instructions: [facility] will call you to coordinate your care as prescribed by your provider. If you don't hear from a parts representative within 2 business days, please call [phone]. Additional Information: Former patient of Dr Sarkar. Patient would like to re-establish care with him for sleep apnea. Thank you Comments Please be aware that coverage of these services is subject to the terms and limitations of your health insurance plan. Call member services at your health plan with any benefit or coverage questions. [facility] will call you to coordinate your care as prescribed by your provider. If you don't hear from a parts representative within 2 business days, please call [phone]. Reason for Visit * Reason Comments Video Visit Follow-up Encounter Details Date Type Department Care Team (Late st Contact Info) Description 07/15/2023 9:00 AM CDT Virtual Visit [facility] Neurology Clinic [address] [address] Rosalba Pendleton, MAXIMILIANO NURSE PRN [address] [place], [place] [address] [address] Migraine without aura and without status migrainosus, not intractable (Primary Dx); History of sleep apnea; Morning headache; Insomnia, unspecified type Social History Tobacco Use Types Packs/Day [...] Sex Assigned at Female 10/31/2021 7:59 AM DIRECTOR OF CATH LAB Gender Identity Female 10/31/2021 7:59 AM DIRECTOR OF CATH LAB Sexual Orientation Straight 10/31/2021 7: 59 AM DIRECTOR OF CATH LAB documented as of this encounter Patient Instructions * Patient Instructions* Rosalba Pendleton APRN CNP - 07/15/2023 9:00 AM CDT Plan: Continue Aimovig for migraine prevention Rescue treatment Prochlorperazine and/or ondansetron as needed for migraine symptoms zolmitriptan as needed for migraine rescue A trial of zavegepant as needed -side effects -allergic reaction, nasal irritation Follow up in 6 months if stable or sooner if needed Morning headaches and history of sleep apnea-obstructive and central. Former patient of Dr Sarkar. Patient would like to re-establish care with him for sleep apnea. documented in this encounter Progress Notes * Rosalba Pendleton APRN CNP - 07/15/2023 9:00 AM CDT Latricia is a 33 year old who is being evaluated via a billable video visit. Subjective Latricia is a 33 year old, presenting for the following health issues:headache Video Visit (Follow-up ) Lats visit 04/02/2023, see note for sam Saw Dr Lange in 2016 -Was seen at [facility]- -last visit in January 2020, see notes in Epic for history details Headache treatment Aimoving and happy with migraine frequency down -2-3/months vs 20/month. Total headache 10-15 /month but bad migraine days per month 2-3. Happy with where she is now with Aimovig and rescue -zolmitriptan as needed and best so far. But would be opened to see if headaches can be controlled better. A trial of zavegepant for rescue treatment Morning headaches lasting two -three hours when waking up. In the past few month -more frequent 2-3/week and slowly fades up. In the past was diagnosed with MEDARDO and central sleep apnea -Sleep study 7years ago. Had a CPAP but did not tolerated. Compazine as needed Ondansetron as needed Retrial of zolmitriptan at last visit in March 2023 and zolmitriptan works half the time Sumatriptan oral and injectable did not work Eletriptan -did not work Rizatriptan-did not work migranal nasal -no help Naratriptan -did not work Prochlorperazine works for the nausea but prefers ondansetron -works well Ubrelvy did not work Nurtec-no effect Topamax, zonisamide, Depakote and gabapentin Venlafaxine in the past Currently on duloxetine Botox -a little bit improvement but not much Plan: Continue Aimovig for migraine prevention Rescue treatment Prochlorperazine and/or ondansetron as needed for migraine symptoms zolmitriptan as needed for migraine rescue A trial of zavegepant as needed -side effects -allergic reaction, nasal irritation Follow up in 6 months if stable or sooner if needed Morning headaches and history of sleep apnea-obstructive and central. Former patient of Dr Sarkar. Patient would like to re-establish care with him for sleep apnea. IBS acting out -has been seen by GI Objective Vitals - Patient Reported Weight (Patient Reported): 78 kg (172 lb) Height (Patient Reported): 167.6 cm (5' 6) BMI (Based on Pt Reported Ht/Wt): 27.76 Pain Score: No Pain (0) Physical Exam Patient is alert and no in apparent acute distress, mentation appears normal, judgement and insightintact, normal speech, no weakness I discussed all my recommendations with Latricia Hatch who verbalizes understanding and comfortable with the plan. 26 minutes spent on the date of the encounter doing video access, chart review, meds review, treatment plan, documentation and further activities as noted above Rosalba Pendleton APRN, CNP [facility] Headache certified [facility] Neurology Clinic Video-Visit Details Type of service: Video Visit Originating Location (pt. Location): Home Distant Location (provider location): Off-site Platform used for Video Visit: Johana CTOR OF CATH LAB documented in this encounter Nursing Notes * Raina Chowdhury - 07/15/2023 9:00 AM CDT Is the patient currently in the state of [place]? YES Visit mode:VIDEO If the visit is dropped, the patient can be reconnected by: TELEPHONE VISIT: Phone number: Telephone Information: Will anyone else be joining the visit? NO (If patient encounters technical issues they should call [phone] :[phone]) How would you like to obtain your AVS? MyChart Are changes needed to the allergy or medication list? Pt stated no med changes Reason for visit: Video Visit (Follow-up ) Raina Chowdhury VVF documented in this encounter Plan of Treatment Upcoming Encounters Date Type Department Care Team (Late st Contact Info) Description 09/29/2023 9:30 AM DIRECTOR OF CATH LAB Ancillary Procedure [facility] [address] [place] [phone] Zain Quintana MD [address] [place], [place] [address] 10/01/2023 9:30 AM DIRECTOR OF CATH LAB Ancillary Procedure [facility] [address] [place] [phone] Zain Quintana MD [address] [place] [address] 10/18/2023 PRE VISIT [facility] Colon and Rectal Surgery [facility] [place] [address] [facility] [address] 4th [place] [phone] Airam Hodges PA-C [address] [place] [address] Previsit 10/21/2023 11:30 AM DIRECTOR OF CATH LAB Therapy Visit [facility] Rehabilitation Services [facility] [address] [facility] [address] [place] [address] Zain Quintana MD [address] [place] [address] Lainey Simon, PT [address] [place] [address] 10/26/2023 1:00 PM DIRECTOR OF CATH LAB Virtual Visit [facility] Gastroenterology Clinic [address] [phone] Latricia Pettit PA-C [address] [place] [address] 10/28/2023 10:50 AM DIRECTOR OF CATH LAB Therapy Visit [address] [address] Zain Quintana MD [address] [place] [address] Lainey Simon, PT [address] [place] [address] 11/04/2023 10:50 AM DIRECTOR OF CATH LAB Therapy Visit [address] [address] Zain Quintana MD [address] [place] [address] Lainey Simon, PT [address] [place] [address] 11/24/2023 10:40 AM CDT Office Visit [facility] Gastroenterology [address] [phone] Abby Vasquez MD [address] [place] [address] 01/13/2024 10:00 AM CDT Virtual Visit [facility] Neurology Clinic [address] [place] [phone] Rosalba Pendleton, MAXIMILIANO NURSE PRN [address] [place] [address] [id number] [address] 01/20/2024 8:00 PM CDT Therapy Visit [facility] Sleep [address] [phone] 03/14/2024 10:30 AM CDT Office Visit [address] [phone] Abhishek Acevedo PA-C [address] [address] 03/21/2024 11:30 AM CDT Office Visit [facility] Colon and Rectal Surgery Clinic [address] [place] [phone] Zain Quintana MD [address] [place] [address] Scheduled Referrals Name Type Priority Associated Diagnoses Orde r Schedule Adult Sleep Eval & Management Referral Referral Routine: Next available opening History of sleep apnea Morning headache Insomnia, unspecified type Expected: 07/15/2023 (Approximate), Expires: 07/15/2024 documented as of this encounter Visit Diagnoses Diagnosis Migraine without aura and without status migrainosus, not intractable- Primary Migraine without aura, without mention of intractable migraine without mention of status migrainosus History of sleep apnea Personal history of other specified diseases Morning headache Headache Insomnia, unspecified type documented in this encounter Additional Health Concerns Assessment Noted Time PHQ-9 Depression Total Score: 12 023 8:53 AM CDT documented as of this encounter Care Teams Home Teaching Grades 7 And 8 Teacher Relationship Specialty Start Date End Date Monty Musa MD [facility] [address] [place] [address] PCP - General Family Medicine 08/13/21 Alfonso Tang [facility] [address] [place] [address] Family [facility] 08/13/21 Dayanara Bee MD [address] [facility] 75 [place], [place] [address] Pediatrics 12/26/14 Min Lange MD [address] [facility] 75 [place] [address] Neurology 03/30/16 Marlo Madsen MD [address] [facility] [address] [place], [place] 7[address] Cardiology 10/27/16 Mel Buckley, RN Nurse Coordinator Physical Medicine and Rehabilitation 12/02/16 Douglas Cadet MD [address] [place] [address] Gastroenterology 08/13/21 Rosalba Pendleton APRN NURSE PRN [address] 290535 Nurse Practitioner Neurology 09/05/21 Rosalba Pendleton APRN NURSE PRN [address] [phone] Assigned Neuroscience Provider 11/09/21 Douglas Cadet MD [address] [place] [address] Assigned Gastroenterology Provider 03/14/22 09/03/23 Mralo Madsen MD [address] [place] [address] [address] [place] [address] Assigned Heart and Vascular Provider 03/14/22 Abby Vasquez MD [address] [place] [address] [phone] Gastroenterology 07/16/22 Abby Vasquez MD [address] [place] [address] 069025 Assigned PCP 09/26/22 documented as of this encounter
--- OUTSIDE RECORDS SUMMARY | 2023-09-27 15:45 | XMS_ITS | Encounter Summary ---
Author Name Unknown Organization [place] Address [address] [facility] [place] [address] Care Team Providers Care Dry Cleaning Checker Name Role Phone Monty Musa MD Primary Care Provider [phone] Alfonso Tang Unavailable Unavailable Dayanara Bee MD Unavailable [phone] Min Lange MD Unavailable Unavailable Marlo Madsen MD Unavailable [phone] Mel Buckley RN Unavailable [phone] Douglas Cadet MD Unavailable [phone] Rosalba Pendleton APRN RESIDENTIAL PROPERTY MANAGER Unavaila ble Rosalba Pendleton APRN RESIDENTIAL PROPERTY MANAGER Unavaila ble Douglas Cadet MD Unavailable [phone] Marlo Madsen MD Unavailable [phone] Abby Vasquez MD Unavailable Abby Vasquez MD Unavailable Airam Hodges PA-C Unavailable [phone] Encounter Details Date Type Department Care Team (Late st Contact Info) Description 07/16/2023 [facility] Gastroenterology Clinic [place] [address] [phone] Sheri Edmonds, DIAZ Social History Tobacco Use Types Packs/Day Years [...] Sex Assigned at Female 10/31/2021 7:59 AM EXCAVATING MACHINE OPERATOR Gender Identity Female 10/31/2021 7:59 AM EXCAVATING MACHINE OPERATOR Sexual Orientation Straight 10/31/2021 7: 59 AM EXCAVATING MACHINE OPERATOR documented as of this encounter Plan of Treatment Upcoming Encounters Date Type Department Care Team (Late st Contact Info) Description 09/29/2023 9:30 AM EXCAVATING MACHINE OPERATOR Ancillary Procedure [facility] [address] [place] [phone] Zain Quintana MD 500 [place], [place] [address] 10/01/2023 9:30 AM EXCAVATING MACHINE OPERATOR Ancillary Procedure [facility] [address] [place] [phone] Zain Quintana MD [address] [place], [place] [address] 10/18/2023 PRE VISIT [facility] Colon and Rectal Surgery Clinic [address] [phone] Airam Hodges PA-C 500 [place], [place] [address] Previsit 10/21/2023 11:30 AM EXCAVATING MACHINE OPERATOR Therapy Visit [facility] Rehabilitation Services [facility] [address] [facility] [address] [place] [address] Zain Quintana MD 500 [place] [address] Lainey Simon, PT [address] [place] [address] 10/26/2023 1:00 PM EXCAVATING MACHINE OPERATOR Virtual Visit [facility] Gastroenterology [address] [phone] Latricia Pettit PA-C [address] [place] [address] 10/28/2023 10:50 AM EXCAVATING MACHINE OPERATOR Therapy Visit [address] [place] [address] Zain Quintana MD 500 [place] [address] Lainey Simon, PT [address] [place] [address] 11/04/2023 10:50 AM EXCAVATING MACHINE OPERATOR Therapy Visit [address] [place] [address] Zain Quintana MD [address] [place] [address] Lainey Simon, PT [address] [place] [address] 11/24/2023 10:40 AM CDT Office Visit [facility] Gastroenterology [address] [phone] Abby Vasquez MD [address] [place] [address] 01/13/2024 10:00 AM CDT Virtual Visit [facility] Neurology Clinic [address] 3rd [place] [phone] Rosalba Pendleton APRN RESIDENTIAL PROPERTY MANAGER [address] [place] [address] [id number] [place], [place] [address] 01/20/2024 8:00 PM CDT Therapy Visit [facility] Sleep [facility] [address] [place] [phone] 03/14/2024 10:30 AM CDT Office Visit [facility] [address] [phone] Abihshek Acevedo PA-C [address] [id number] 03/21/2024 11:30 AM CDT Office Visit [facility] Colon and Rectal Surgery Clinic [address] 4th [place] [phone] Zain Quintana MD [address] [place] [address]115 documented as of this encounter Visit Diagnoses Not on filedocumented in this encounter Additional Health Concerns Assessment Noted Time PHQ-9 Depression Total Score: 12 023 8:53 AM CDT documented as of this encounter Care Teams Dry Cleaning Checker Relationship Specialty Start Date End Date Monty Musa MD [facility] [address] [place] [address] PCP - General Family Medicine 08/13/21 Alfonso Tang [facility] [address] [place] [address] Family Practice 08/13/21 Dayanara Bee MD 420 [facility] 75 [place] [address] Pediatrics 12/26/14 Min Lange MD 420 [facility] 75 [place] [address] Neurology 03/30/16 Marlo Madsen MD [address] 8[address] Cardiology 10/27/16 Mel Buckley, RN Nurse Coordinator Physical Medicine and Rehabilitation 12/02/16 Douglas Cadet MD 500 [place] [address] Gastroenterology 08/13/21 Rosalba Pendleton APRN RESIDENTIAL PROPERTY MANAGER [address] [place] [address] 477625 Nurse Practitioner Neurology 09/05/21 Rosalba Pendleton APRN RESIDENTIAL PROPERTY MANAGER [address] [place] [address] Assigned Neuroscience Provider 11/09/21 Douglas Cadet MD 500 [place] [address] Assigned Gastroenterology Provider 03/14/22 09/03/23 Marlo Madsen MD [address] [address] Assigned Heart and Vascular Provider 03/14/22 Abby Vasquez MD 909 [place], [place] [address] Gastroenterology 07/16/22 Abby Vasquez MD [address] [place] [address] 814945 Assigned PCP 09/26/22 Airam Hodges PA-C [address] [place] [address] Physician Felled Seam Operator Chainstitch Surgery 07/19/23 documented as of this encounter
--- OUTSIDE RECORDS SUMMARY | 2023-09-27 15:45 | XMS_ITS | Encounter Summary ---
Author Name Unknown Organization [facility] Address [address] [facility] [place] [address] Care Team Providers Care Cost Clerk Name Role Phone Monty Musa MD Primary Care Provider Alfonso Tang Unavailable Unavailable Dayanara Bee MD Unavailable [phone] Min Lange MD Unavailable Unavailable Marlo Madsen MD Unavailable [phone] Mel Buckley RN Unavailable [phone] Douglas Cadet MD Unavailable Rosalba Pendleton APRN GAMBLING MONITOR Unavaila ble Rosalba Pendleton APRN GAMBLING MONITOR Unavaila ble Marlo Madsen MD Unavailable [phone] Abby Vasquez MD Unavailable Abby Vasquez MD Unavailable Airam Hodges PA-C Unavailable [phone] Encounter Details Date Type Department Care Team (Late st Contact Info) Description 09/17/2023 1:30 PM [facility] Laboratory [address] [place] [address] Restless legs syndrome (RLS); Low iron Social History Tobacco Use Types Packs/Day Years [...] Sex Assigned at Female 10/31/2021 7:59 AM BOX CLOSING MACHINE OPERATOR Gender Identity Female 10/31/2021 7:59 AM BOX CLOSING MACHINE OPERATOR Sexual Orientation Straight 10/31/2021 7: 59 AM BOX CLOSING MACHINE OPERATOR documented as of this encounter Miscellaneous Notes * Result Encounter Note - Abhishek Acevedo PA-C - 09/17/2023 1:30 PM BOX CLOSING MACHINE OPERATOR Hello Latricia- Your ferritin came back at 40, which is slightly low when it comes to restless legs. Levels below 50 (some even say 75) can contribute to restless legs. I would suggest adding an iron supplement suchas Vitron C either daily or every other day, depending on how you tolerate it. Iron supplements cancause constipation or upset stomach. Ensure plenty of water and fiber in diet. Consider Colace if constipation is a problem. Avoid taking it with levothyroxine and antacids. Give that a try for 1-2 months and let me know if you notice any difference in the restless legs. RegardsAbhishek PA-C CLOSING MACHINE OPERATOR documented in this encounter Plan of Treatment Upcoming Encounters Date Type Department Care Team (Late st Contact Info) Description 09/29/2023 9:30 AM BOX CLOSING MACHINE OPERATOR Ancillary Procedure [facility] [address] [place] [phone] Zain Quintana MD [address] [place] [address] 10/01/2023 9:30 AM BOX CLOSING MACHINE OPERATOR Ancillary Procedure [facility] [address] [place] [address] Zain Quintana MD [address] [place], [place] [address] 10/18/2023 PRE VISIT [facility] [address] [phone] Airam Hodges PA-C 500 [place], [place] [address]855 Previsit 10/21/2023 11:30 AM BOX CLOSING MACHINE OPERATOR Therapy Visit [address] [address] Zain Quintana MD 500 [place], [place] 121875 Lainey Simon, PT [address] [place] [address] 10/26/2023 1:00 PM BOX CLOSING MACHINE OPERATOR Virtual Visit [facility] Gastroenterology Clinic [address] [phone] Latricia Pettit PA-C 909 [place] [address] 10/28/2023 10:50 AM BOX CLOSING MACHINE OPERATOR Therapy Visit [address] [address] Zain Quintana MD [address] [place], [place] [address] Lainey Simon, PT [address] [place] [address] 11/04/2023 10:50 AM BOX CLOSING MACHINE OPERATOR Therapy Visit [facility] Rehabilitation Services [facility] [address] [facility] 300 [place] [address] Zain Quintana MD [address] [place] [address] [place] [address] [place] [address] 11/24/2023 10:40 AM CDT Office Visit [facility] Gastro[facility]ology [facility] [address] [place] [phone] Abby Vasquez MD [address] [place] [address] 01/13/2024 10:00 AM CDT Virtual Visit [facility] Neurology Clinic [address] [place] [phone] Rosalba Pendleton, RETIREMENT ADMINISTRATOR GAMBLING MONITOR [address] [place] [address] [id number] [place], [place] [address] 01/20/2024 8:00 PM CDT Therapy Visit [facility] Sleep [address] [phone] 03/14/2024 10:30 AM CDT Office Visit [facility] Sleep [address] [address] Abhishek Acevedo PA-C [address] [id number] 03/21/2024 11:30 AM CDT Office Visit [facility] [address] [place] [phone] Zain Quintana MD 500 [place] [address] documented as of this encounter Procedures Procedure Name Priority Date/Time Associated Diagnosis Comments FERRITIN Routine 09/17/2023 1:20 PM BOX CLOSING MACHINE OPERATOR Restless legs syndrome (RLS) Low iron documented in this encounter Results * Ferritin (09/17/2023 1:20 PM BOX CLOSING MACHINE OPERATOR) Ferritin 40 6 - 175 ng/mL 09/17/2023 9:34 PM BOX CLOSING MACHINE OPERATOR [facility] Blood BLOOD SPECIMEN / Unknown Venipuncture / Unknown 09/17/2023 1:20 PM BOX CLOSING MACHINE OPERATOR 09/17/2023 1:20 PM BOX CLOSING MACHINE OPERATOR Abhishek Acevedo PA-C LAB - BLOOD SOTO ZAYAS [facility] [address] [facility] [address] Building, Room 3-580 [place] [address] [phone] documented in this encounter Visit Diagnoses Diagnosis Restless legs syndrome (RLS) Low iron Iron deficiency anemia, unspecified documented in this encounter Additional Health Concerns Assessment Noted Time PHQ-9 Depression Total Score: 12 023 8:53 AM CDT documented as of this encounter Care Teams Cost Clerk Relationship Specialty Start Date End Date Monty Musa MD [facility] [address] [place] [address] PCP - General Family Medicine 08/13/21 Alfonso Tang [facility] [address] [place] [address] Family Practice 08/13/21 Dayanara Bee MD [address] [place] [address] 75 [place] [address] Pediatrics 12/26/14 Min Lange MD 420 [facility] 75 [place] [address] Neurology 03/30/16 Marlo Madsen MD [address] [place] [address] 508 [place] [address] Cardiology 10/27/16 Mel Buckley, RN Nurse Coordinator Physical Medicine and Rehabilitation 12/02/16 Douglas Cadet MD [address] [place] [address] Gastroenterology 08/13/21 Rosalba Pendleton APRN GAMBLING MONITOR [address] [place] [address] 230255 Nurse Practitioner Neurology 09/05/21 Rosalba Pendleton APRN GAMBLING MONITOR [address] [place] [address] Assigned Neuroscience Provider 11/09/21 Marlo Madsen MD [address] [place] [address] 154705 Assigned Heart and Vascular Provider 03/14/22 Abby Vasquez MD [address] [place] [address] 443505 Gastroenterology 07/16/22 Abby Vasquez MD [address] [place] [address] Assigned PCP 09/26/22 Airam Hodges PA-C 500 [place] [address] Physician Wheel Loader Operator Surgery 07/19/23 documented as of this encounter
--- OUTSIDE RECORDS SUMMARY | 2023-09-27 15:45 | XMS_ITS | Encounter Summary ---
Author Name Unknown Organization [facility] Address [address] [facility] [place] [address] Care Team Providers Care Gameplay Engineer Name Role Phone Monty Musa MD Primary Care Provider [phone] Alfonso Tang Unavailable Unavailable Dayanara Bee MD Unavailable [phone] Min Lange MD Unavailable Unavailable Marlo Madsen MD Unavailable [phone] Mel Buckley RN Unavailable [phone] Douglas Cadet MD Unavailable [phone] Rosalba Pendleton APRN CURRICULUM AND ASSESSMENT DIRECTOR Unavaila ble Rosalba Pendleton APRN CURRICULUM AND ASSESSMENT DIRECTOR Unavaila ble Douglas Cadet MD Unavailable [phone] Marlo Madsen MD Unavailable [phone] Abby Vasquez MD Unavailable Abby Vasquez MD Unavailable Encounter Details Date Type Department Care Team (Latest Contact Info) Description 07/14/2023 Travel Social History Tobacco Use Types Packs/Day [...] Sex Assigned at Female 10/31/2021 7:59 AM PROJECT SCHEDULER Gender Identity Female 10/31/2021 7:59 AM PROJECT SCHEDULER Sexual Orientation Straight 10/31/2021 7: 59 AM PROJECT SCHEDULER documented as of this encounter Plan of Treatment Upcoming Encounters Date Type Department Care Team (Late st Contact Info) Description 09/29/2023 9:30 AM PROJECT SCHEDULER Ancillary Procedure [facility] [address] [place] [phone] Zain Quintana MD 500 [place], [place] 42[address] 10/01/2023 9:30 AM PROJECT SCHEDULER Ancillary Procedure [facility] [address] [place] [phone] Zain Quintana MD [address] [place], [place] [address]165 10/18/2023 PRE VISIT [facility] Colon and Rectal Surgery Clinic [place] [address] [facility] [address] 4th [place] [phone] Airam Hodges PA-C 500 [place], [place] 139[address] Previsit 10/21/2023 11:30 AM PROJECT SCHEDULER Therapy Visit [facility] Rehabilitation Services [facility] [address] [facility] [address] [place] [address] Zain Quintana MD 500 [place], [place] 5[address] [place] [address] [place] [address] 10/26/2023 1:00 PM PROJECT SCHEDULER Virtual Visit [facility] Gastroenterology [address] [phone] Latricia Pettit PA-C [address] [place] [address] 10/28/2023 10:50 AM PROJECT SCHEDULER Therapy Visit [address] [address] Zain Quintana MD [address] [place] [address] 667075 Lainey Simon, JAY [address] [place] [address] 11/04/2023 10:50 AM PROJECT SCHEDULER Therapy Visit [address] [address] Zain Quintana MD [address] [place] [address] 610835 Lainey Simon, JAY [address] [place] [address] 11/24/2023 10:40 AM CDT Office Visit [facility] Gastroenterology [address] [phone] Abby Vasquez MD [address] [place] [address] 213265 01/13/2024 10:00 AM CDT Virtual Visit [facility] Neurology [address] [phone] Rosalba Pendleton, COMMUNICATIONS PROFESSOR CURRICULUM AND ASSESSMENT DIRECTOR [address] [facility] [place] [id number] [address] 01/20/2024 8:00 PM CDT Therapy Visit [facility] Sleep [facility] [address] [place] [phone] 03/14/2024 10:30 AM CDT Office Visit [facility] Sleep [facility] 6363 [facility] 103 [place] [phone] Abhishek Acevedo PA-C [address] [id number] 03/21/2024 11:30 AM CDT Office Visit [facility]al Surgery Clinic [address] 4th [place] [phone] Zain Quintana MD [address] [place] [address] 545685 documented as of this encounter Visit Diagnoses Not on filedocumented in this encounter Additional Health Concerns Assessment Noted Time PHQ-9 Depression Total Score: 11 022 11:52 AM CDT documented as of this encounter Care Teams Gameplay Engineer Relationship Specialty Start Date End Date Monty Musa MD [facility] [address] [place] [address] PCP - General Family Medicine 08/13/21 Alfonso Tang [facility] [address] [place] [address] Family Practice 08/13/21 Dayanara Bee MD [address] [place] [address] 75 [place] [address] Pediatrics 12/26/14 Min Lange MD 420 [facility] 75 [place] [address] Neurology 03/30/16 Marlo Madsen MD [address] [address] Cardiology 10/27/16 Mel Buckley, RN Nurse Coordinator Physical Medicine and Rehabilitation 12/02/16 Douglas Cadet MD 500 [place] [address] Gastroenterology 08/13/21 Rosalba Pendleton APRN CURRICULUM AND ASSESSMENT DIRECTOR [address] [place] [address] 014685 Nurse Practitioner Neurology 09/05/21 Rosalba Pendleton APRN CURRICULUM AND ASSESSMENT DIRECTOR [address] [place] [address] 952895 Assigned Neuroscience Provider 11/09/21 Douglas Cadet MD 500 [place] [address] Assigned Gastroenterology Provider 03/14/22 09/03/23 Marlo Madsen MD [address] [address] Assigned Heart and Vascular Provider 03/14/22 Abby Vasquez MD [address] [place] [address] Gastroenterology 07/16/22 Abby Vasquez MD 9 [place] [address] Assigned PCP 09/26/22 documented as of this encounter
--- OUTSIDE RECORDS SUMMARY | 2023-09-27 15:45 | XMS_ITS | Encounter Summary ---
Author Name Unknown Organization [place] Address [address] [facility] [place] [address] Care Team Providers Care Senior Cyber Security Analyst Name Role Phone Monty Musa MD Primary Care Provider [phone] Alfonso Tang Unavailable Unavailable Dayanara Bee MD Unavailable [phone] Min Lange MD Unavailable Unavailable Marlo Madsen MD Unavailable [phone] Mel Buckley RN Unavailable [phone] Douglas Cadet MD Unavailable [phone] Rosalba Pendleton APRN FOLDER STITCHER OPERATOR Unavaila ble Rosalba Pendleton APRN FOLDER STITCHER OPERATOR Unavaila ble Marlo Madsen MD Unavailable [phone] Abby Vasquez MD Unavailable Abby Vasquez MD Unavailable Airam Hodges PA-C Unavailable [phone] Encounter Details Date Type Department Care Team (Latest Contact Info) Description 09/19/2023 Travel Social History Tobacco Use Types Packs/Day [...] Sex Assigned at Female 10/31/2021 7:59 AM KNIFE OPERATOR Gender Identity Female 10/31/2021 7:59 AM KNIFE OPERATOR Sexual Orientation Straight 10/31/2021 7: 59 AM KNIFE OPERATOR documented as of this encounter Plan of Treatment Upcoming Encounters Date Type Department Care Team (Late st Contact Info) Description 09/29/2023 9:30 AM KNIFE OPERATOR Ancillary Procedure [facility] [address] [facility] [address] [place] [phone] Zain Quintana MD 500 [place], [place] [address] 10/01/2023 9:30 AM KNIFE OPERATOR Ancillary Procedure [facility] [address] [facility] [address] [place] [phone] Zain Quintana MD 500 [place], [place] 1350[address] 10/18/2023 PRE VISIT [facility] Colon and Rectal Surgery Clinic [place] [address] [facility] [address] 4th [place] [phone] Airam Hodges PA-C 500 [place], [place] 403195 Previsit 10/21/2023 11:30 AM KNIFE OPERATOR Therapy Visit [facility] Rehabilitation Services [facility] [address] [facility] [address] [place] [address] Zain Quintana MD 500 [place], [place] 23[address] [place] [address] [place] [address] 10/26/2023 1:00 PM KNIFE OPERATOR Virtual Visit [facility] Gastroenterology [address] [phone] Latricia Pettit PA-C [address] [place] [address] 10/28/2023 10:50 AM KNIFE OPERATOR Therapy Visit [address] [address] Zain Quintana MD [address] [place] [address] 044315 Lainey Simon, JAY [address] [place] [address] 11/04/2023 10:50 AM KNIFE OPERATOR Therapy Visit [address] [address] Zain Quintana MD [address] [place] [address] 256675 Lainey Simon, JAY [address] [place] [address] 11/24/2023 10:40 AM CDT Office Visit [facility] Gastroenterology [address] [phone] Abby Vasquez MD [address] [place] [address] 421805 01/13/2024 10:00 AM CDT Virtual Visit [facility] Neurology [address] [phone] Rosalba Pendleton, TEST PULLER FOLDER STITCHER OPERATOR 909 [facility] IB1952AC [place], [place] [address] 01/20/2024 8:00 PM CDT Therapy Visit [facility] Sleep [facility] [address] [place] [phone] 03/14/2024 10:30 AM CDT Office Visit [facility] 6363 [facility] 103 [place] [phone] Abhishek Acevedo PA-C [address] [phone] 03/21/2024 11:30 AM CDT Office Visit [facility] Colon [facility] Rectal Surgery Clinic [address] 4th [place] [phone] Zain Quintana MD [address] [place] [address] 218595 documented as of this encounter Visit Diagnoses Not on filedocumented in this encounter Additional Health Concerns Assessment Noted Time PHQ-9 Depression Total Score: 12 023 8:53 AM CDT documented as of this encounter Care Teams Senior Cyber Security Analyst Relationship Specialty Start Date End Date Monty Musa MD [facility] [address] [place] [address] PCP - General Family Medicine 08/13/21 Alfonso Tang [facility] [address] [place] [address] Family Practice 08/13/21 Dayanara Bee MD [address] [place] [address] 75 [place] [address] Pediatrics 12/26/14 Min Lange MD 420 [facility] 75 [place] [address] Neurology 03/30/16 Marlo Madsen MD [address] [place] [address] 508 [place] [address] Cardiology 10/27/16 Mel Buckley, RN Nurse Coordinator Physical Medicine and Rehabilitation 12/02/16 Douglas Cadet MD [address] [place] [address] Gastroenterology 08/13/21 Rosalba Pendleton APRN FOLDER STITCHER OPERATOR [address] [place] [address] 318825 Nurse Practitioner Neurology 09/05/21 Rosalba Pendleton APRN FOLDER STITCHER OPERATOR [address] [place] [address] 566445 Assigned Neuroscience Provider 11/09/21 Marlo Madsen MD [address] [place] [address] 774425 Assigned Heart and Vascular Provider 03/14/22 Abby Vasquez MD [address] [place] [address] 753245 Gastroenterology 07/16/22 Abby Vasquez MD [address] [place] [address] Assigned PCP 09/26/22 Airam Hodges PA-C 500 [place] [address] Physician Physical Education Specialist Surgery 07/19/23 documented as of this encounter
--- OUTSIDE RECORDS SUMMARY | 2023-09-27 15:45 | XMS_ITS | Encounter Summary ---
Author Name Unknown Organization [place] Address [address] [facility] [place] [address] Care Team Providers Care Mechanic Welder Truck Driver Name Role Phone Monty Musa MD Primary Care Provider [phone] Alfonso Tang Unavailable Unavailable Dayanara Bee MD Unavailable [phone] Min Lange MD Unavailable Unavailable Marlo Madsen MD Unavailable [phone] Mel Buckley RN Unavailable [phone] Douglas Cadet MD Unavailable [phone] Rosalba Pendleton APRN SCHOOL TRAFFIC GUARD Unavaila ble Rosalba Pendleton APRN SCHOOL TRAFFIC GUARD Unavaila ble Douglas Cadet MD Unavailable [phone] Marlo Madsen MD Unavailable [phone] Abby Vasquez MD Unavailable Abby Vasquez MD Unavailable Airam Hodges PA-C Unavailable [phone] Reason for Visit * Reason Onset Date Comments Prior Auth - Medication 07/15/2023 Zavegepa nt HCl 10 MG/ACT SOLN Encounter Details Date Type Department Care Team (Late st Contact Info) Description 07/15/2023 Telephone [facility] Neurology Clinic [address] 3rd [place] [address] Rosalba Pendleton APRN SCHOOL TRAFFIC GUARD [address] [facility] [id number] [place] [address] Prior Auth - Medication (Zavegepant HCl 10 MG/ACT SOLN ) Social History Tobacco Use Types Packs/Day Years [...] Sex Assigned at Female 10/31/2021 7:59 AM CARBURIZING FURNACE OPERATOR Gender Identity Female 10/31/2021 7:59 AM CARBURIZING FURNACE OPERATOR Sexual Orientation Straight 10/31/2021 7: 59 AM CARBURIZING FURNACE OPERATOR documented as of this encounter Miscellaneous Notes * Telephone Encounter - Lavinia Ayoub - 07/20/2023 2:34 PM CST Images from the original note were not included. Prior Authorization Approval Medication: ZAVZPRET 10 MG/ACT NA SOLN Authorization Effective Date: 06/20/2023 Authorization Expiration Date: 07/19/2024 Approved Dose/Quantity: Reference #: Insurance [employer]: [employer] Non-Specialty PA's - Expected CoPay: $ CoPay Card Available: Financial Assistance Needed: Which Pharmacy is filling the prescription: [id number] [place] [id number] Pharmacy Notified: Yes Patient Notified: Instructed pharmacy to notify patient when script is ready to cotton picking machine operator/ship. URIZING FURNACE OPERATOR * Telephone Encounter - Joy Presley CMA - 07/15/2023 9:52 AM CDT Prior Authorization Retail Medication Request Medication/Dose: Zavegepant HCl 10 MG/ACT SOLN ICD code (if different than what is on RX): Previously Tried and Failed: See Chart Rationale: see chart Insurance Name: [employer] Pharmacy Information (if different than what is on RX) Name: Phone: documented in this encounter Plan of Treatment Upcoming Encounters Date Type Department Care Team (Late st Contact Info) Description 09/29/2023 9:30 AM CARBURIZING FURNACE OPERATOR Ancillary Procedure [facility] [address] [place] [phone] Zain Quintana MD [address] [place], [place] [address] 10/01/2023 9:30 AM CARBURIZING FURNACE OPERATOR Ancillary Procedure [facility] [address] [place] [phone] Zain Quintana MD [address] [place], [place] [address] 10/18/2023 PRE VISIT [facility] Colon and Rectal Surgery Clinic [address] 4th [place] [phone] Airam Hodges PA-C [address] [place], [place] [address] Previsit 10/21/2023 11:30 AM CARBURIZING FURNACE OPERATOR Therapy Visit [facility] Rehabilitation Services [facility] [address] [facility] [address] [place], [place] [phone] Zain Quintana MD [address] [place], [place] 6[address] [place] [address] [place], [place] [phone] 10/26/2023 1:00 PM CARBURIZING FURNACE OPERATOR Virtual Visit [facility] Gastroenterology Clinic [address] [phone] Latricia Pettit PA-C [address] [place] [address] 10/28/2023 10:50 AM CARBURIZING FURNACE OPERATOR Therapy Visit [address] [address] Zain Quintana MD [address] [place] [address] 845495 Lainey Simon, PT [address] [place] [address] 11/04/2023 10:50 AM CARBURIZING FURNACE OPERATOR Therapy Visit [address] [address] Zain Quintana MD [address] [place] [address] Lainey Simon, PT [address] [place] [address] 11/24/2023 10:40 AM CDT Office Visit [facility] Gastroenterology Clinic [address] [phone] Abby Vasquez MD [address] [place] [address] 01/13/2024 10:00 AM CDT Virtual Visit [facility] Neurology [address] [address] Rosalba Pendleton APRN SCHOOL TRAFFIC GUARD [address] [facility] [id number] [place] [address] 01/20/2024 8:00 PM CDT Therapy Visit [facility] Sleep [facility] [address] [facility] 103 [place] [address] 03/14/2024 10:30 AM CDT Office Visit [facility] [address] [facility] 103 [place] [address] Abhishek Acevedo PA-C [address] [facility] 103 [place], [place] [id number] 03/21/2024 11:30 AM CDT Office Visit [facility] Colon and Rectal Surgery Clinic [address] 4th [place] [phone] Zain Quinatna MD [address] [place] [address] [phone] documented as of this encounter Visit Diagnoses Not on filedocumented in this encounter Additional Health Concerns Assessment Noted Time PHQ-9 Depression Total Score: 12 023 8:53 AM CDT documented as of this encounter Care Teams Mechanic Welder Truck Driver Relationship Specialty Start Date End Date Monty Musa MD [facility] [address] [place] [address] PCP - General Family Medicine 08/13/21 Alfonso Tang [facility] [address] [place] [address] Family Practice 08/13/21 Dayanara Bee MD [address] [place] [address] 75 [place], [place] [address] Pediatrics 12/26/14 Min Lange MD [address] [facility] 75 [place] [address] Neurology 03/30/16 Marlo Madsen MD [address] [address] Cardiology 10/27/16 Mel Buckley, RN Nurse Coordinator Physical Medicine and Rehabilitation 12/02/16 Douglas Cadet MD [address] [place], [place] 6469[address] Gastroenterology 08/13/21 Rosalba Pendleton APRN SCHOOL TRAFFIC GUARD [address] [place] [address] [phone] Nurse Practitioner Neurology 09/05/21 Rosalba Pendleton APRN SCHOOL TRAFFIC GUARD [address] [place] [address] [phone] Assigned Neuroscience Provider 11/09/21 Douglas Cadet MD [address] [place] [address] Assigned Gastroenterology Provider 03/14/22 09/03/23 Marlo Madsen MD [address] 863145 Assigned Heart and Vascular Provider 03/14/22 Abby Vasquez MD [address] [place] [address] 5[address]45 Gastroenterology 07/16/22 Abby Vasquez MD [address] [place], [place] 5[address] Assigned PCP 09/26/22 Airam Hodges PA-C [address] [place], [place] [address] Physician Contact Assembler Surgery 07/19/23 documented as of this encounter
--- OUTSIDE RECORDS SUMMARY | 2023-09-27 15:45 | XMS_ITS | Encounter Summary ---
Author Name Unknown Organization [place] Address [address] [facility] [place] [address] Care Team Providers Care Lead Housekeeper Name Role Phone Monty Musa MD Primary Care Provider [phone] Alfonso Tang Unavailable Unavailable Dayanara Bee MD Unavailable [phone] Min Lange MD Unavailable Unavailable Marlo Madsen MD Unavailable [phone] Mel Buckley RN Unavailable [phone] Douglas Cadet MD Unavailable [phone] Rosalba Pendleton APRN CARBON BRUSH MAKER Unavaila ble Rosalba Pendleton APRN CARBON BRUSH MAKER Unavaila ble Douglas Cadet MD Unavailable [phone] Marlo Madsen MD Unavailable [phone] Abby Vasquez MD Unavailable Abby Vasquez MD Unavailable Reason for Visit * Reason Onset Date Comments Clinic Care Coordination - Follow-up 07/15/2023 Encounter Details Date Type Department Care Team (Late st Contact Info) Description 07/15/2023 Telephone [facility] Neurology [facility] [address] [place] [address] Rosalba Pendleton, MAXIMILIANO CARBON BRUSH MAKER [address] [facility] [id number] [place], [place] [phone] Clinic Care Coordination - Follow-up Social History Tobacco Use Types Packs/Day Years [...] Sex Assigned at Female 10/31/2021 7:59 AM CREDIT AND COLLECTION MANAGER Gender Identity Female 10/31/2021 7:59 AM CREDIT AND COLLECTION MANAGER Sexual Orientation Straight 10/31/2021 7: 59 AM CREDIT AND COLLECTION MANAGER documented as of this encounter Plan of Treatment Upcoming Encounters Date Type Department Care Team (Late st Contact Info) Description 09/29/2023 9:30 AM CREDIT AND COLLECTION MANAGER Ancillary Procedure [facility] [address] [place] [phone] Zain Quintana MD [address] [place], [place] [address] 10/01/2023 9:30 AM CREDIT AND COLLECTION MANAGER Ancillary Procedure [facility] [address] [place] [phone] Zain Quintana MD [address] [place] [address] 10/18/2023 PRE VISIT [facility] Colon and Rectal Surgery Clinic [address] [address] Airam Hodges PA-C 500 [place], [place] [address] Previsit 10/21/2023 11:30 AM CREDIT AND COLLECTION MANAGER Therapy Visit [address] [address] Zain Quintana MD [address] [place] [address] Lainey Simon, PT [address] [place] [address] 10/26/2023 1:00 PM CREDIT AND COLLECTION MANAGER Virtual Visit [facility] Gastroenterology Clinic [address] [phone] Latricia Pettit PA-C [address] [place] [address] 10/28/2023 10:50 AM CREDIT AND COLLECTION MANAGER Therapy Visit [address] [address] Zain Quintana MD [address] [place] [address] Lainey Simon, PT [address] [place] [address] 11/04/2023 10:50 AM CREDIT AND COLLECTION MANAGER Therapy Visit [address] [address] Zain Quintana MD [address] [place] [address] Lainey Simon, PT [address] [place] [address] 11/24/2023 10:40 AM CDT Office Visit [facility] Gastroenterology Clinic [address] [place] [phone] Abby Vasquez MD [address] [place] [address] 247255 01/13/2024 10:00 AM CDT Virtual Visit [facility] Neurology Clinic [address]rd [place] [phone] Rosalba Pendleton, HAND PICKER CARBON BRUSH MAKER [address] [place] [address] [id number] [place], [place] [address] 01/20/2024 8:00 PM CDT Therapy Visit [facility] Sleep [address] [phone] 03/14/2024 10:30 AM CDT Office Visit [address] [phone] Abhishek Acevedo PA-C [address] [id number] 03/21/2024 11:30 AM CDT Office Visit [facility] Colon and Rectal Surgery Clinic [address] [phone] Zain Quintana MD [address] [place] [address] 920725 documented as of this encounter Visit Diagnoses Not on filedocumented in this encounter Additional Health Concerns Assessment Noted Time PHQ-9 Depression Total Score: 12 023 8:53 AM CDT documented as of this encounter Care Teams Lead Housekeeper Relationship Specialty Start Date End Date Monty Musa MD [facility] 103 15 [facility] [place] [address] PCP - General Family Medicine 08/13/21 Kitty Alfonso Odalis [facility] [address] [place] [address] [facility] 08/13/21 Dayanara Bee MD 420 [facility] 75 [place] [address] Pediatrics 12/26/14 Min Lange MD 420 [facility] 75 [place] [address] Neurology 03/30/16 Marlo Madsen MD 420 [facility] 508 [place], [place] 25[address] Cardiology 10/27/16 Mel Buckley RN Nurse Coordinator Physical Medicine and Rehabilitation 12/02/16 Douglas Cadet MD [address] [place] [address] Gastroenterology 08/13/21 Rosalba Pendleton APRN CARBON BRUSH MAKER [address] [place] [address] [phone] Nurse Practitioner Neurology 09/05/21 Rosalba Pendleton APRN CARBON BRUSH MAKER [address] [place] [address] 157765 Assigned Neuroscience Provider 11/09/21 Douglas Cadet MD [address] [place] [address] Assigned Gastroenterology Provider 03/14/22 09/03/23 Marlo Madsen MD [address] [place] [address] 508 [place] [address] Assigned Heart and Vascular Provider 03/14/22 Abby Vasquez MD [address] [place] [address] Gastroenterology 07/16/22 Abby Vasquez MD [address] [place] [address] Assigned PCP 09/26/22 documented as of this encounter
--- OUTSIDE RECORDS SUMMARY | 2023-09-27 15:45 | XMS_ITS | Encounter Summary ---
Author Name Unknown Organization [place] Address [address] [facility] [place] [address] Care Team Providers Care Crate Liner Name Role Phone Monty Musa MD Primary Care Provider Alfonso Tang Unavailable Unavailable Dayanara Bee MD Unavailable [phone] Min Lange MD Unavailable Unavailable Marlo Madsen MD Unavailable [phone] Mel Buckley RN Unavailable [phone] Douglas Cadet MD Unavailable Rosalba Pendleton APRN ASSEMBLER WATCH TRAIN Unavaila ble Rosalba Pendleton APRN ASSEMBLER WATCH TRAIN Unavaila ble Marlo Madsen MD Unavailable [phone] Abby Vasquez MD Unavailable Abby Vasquez MD Unavailable Airam Hodges PA-C Unavailable [phone] Reason for Visit * Reason Comments Sleep Problem Wakes up with headac he, lots of movement, insomnia * Consultation (Routine: Next available opening) - Pending Review Specialty Diagnoses / Procedures Referred By Contgeovany t Referred To Contact Diagnoses History of sleep apnea Morning headache Insomnia, unspecified type Rosalba Pendleton, MAXIMILIANO ASSEMBLER WATCH TRAIN [id number] [place] [address] Referral ID Status Reason Start Date Expiration Date V isits Requested Visits Authorized [id number] Pending Review 07/15/2023 07/14/2024 1 1 Encounter Details Date Type Department Care Team (Late st Contact Info) Description 09/15/2023 11:00 AM PROGRESSIVE CARE NURSE Office Visit [facility] [place] [address] [place] [phone] Rosalba Pendleton, POACHER WRINGER OPERATOR ASSEMBLER WATCH TRAIN [id number] [place] [address] Abhishek Acevedo PA-C [address] [facility] [address] [place], [place] [id number] Delayed sleep phase syndrome (Primary Dx); History of sleep apnea; Morning headache; Insomnia, unspecified type; Restless legs syndrome (RLS); Low iron Social [...] Sex Assigned at Female 10/31/2021 7:59 AM PROGRESSIVE CARE NURSE Gender Identity Female 10/31/2021 7:59 AM PROGRESSIVE CARE NURSE Sexual Orientation Straight 10/31/2021 7: 59 AM PROGRESSIVE CARE NURSE documented as of this encounter Last Filed Vital Signs Vital Sign Reading Time Taken Comments Blood Pressure 121/84 09/15/2023 11:00 AM PROGRESSIVE CARE NURSE Pulse 75 09/15/2023 11:00 AM PROGRESSIVE CARE NURSE Temperature - - Respiratory Rate - - Oxygen Saturation 100% 09/15/2023 11:00 AM PROGRESSIVE CARE NURSE Inhaled Oxygen Concentration - - Weight 80.1 kg (176 lb 9.6 oz) 09/15/2023 11:00 AM PROGRESSIVE CARE NURSE Height 167.6 cm (5' 5.98) 09/15/2023 11:[address] Body Mass Index 28.52 09/15/2023 11:00 AM PROGRESSIVE CARE NURSE documented in this encounter Patient Instructions * Patient Instructions* Abhishek Acevedo PA-C - 09/15/2023 11:00 AM PROGRESSIVE CARE NURSE Instructions for treating Delayed Sleep Phase Syndrome: Delayed Sleep Phase Syndrome (DSPS) means that your body's internal timing is set late compared to the 24 hour day. Therefore, it is often difficult to get up on time for work in the morning and sometimes difficult to fall asleep on time, in order to get enough sleep. People with DSPS often tend tolike to stay up late on weekends and sleep in until between 10 AM and noon, sometimes even later.This is actually a bad habit that will perpetuate the problem. It reinforces your body's tendency to be on that later schedule. You should go to bed when you are sleepy and ready to sleep. During this entire process, you shouldnot engage in activities that may make it worse, such as watching TV in bed, leaving the TV on all night, drinking any caffeine 6 hours before bed or exercising 1-2 hours before bed. Start taking Melatonin, 0.5-1 mg tablet 3-5 hours before the time that you fall asleep on average (not your desired bedtime or time that you get in bed, but the time you normally fall asleep on your own). Upon awakening, get exposure to sun-light for about 30-45 minutes. You do not need to look at the sun, in fact, this is dangerous. Reading the paper with the sun shining on you is adequate. Alternatively, you may use a Seasonal Affective Disorder Lamp (intensity 10,000 Lux) instead of the sun. The lamp should be positioned 1-2 arms lengths away from you. They lamps are sold at Home Medical Companies such as [employer] or [employer]. A prescription can be written to get insurance coverage in some cases. They are also sold on [employer]. Consider Verilux Happy Light Lucent. Using the light and melatonin should help march your internal clock (known as your circadian rhythms) gradually earlier. As your bedtime advances, remember to take your melatonin earlier, keeping it 5 hours before your fall asleep time. Avoid naps and sleeping in because sleeping during the day will delay your body's clock and you will have to start from scratch. More information about light therapy: If the cost of any light box is too much, you can also purchase a compact fluorescent all spectrum light bulb at a local hardware store for about $8. The most commonly available bulb is 1400 lumen. You would need two of these positioned within 1 meter of yourself to be equivalent to 2,500 lux. The bulbs can be placed in a standard light fixture. Additionally, they can be placed in a mountable fixture that is used in greenhouses. Mountable fixtures are also available at hardware stores for about$9. Do not look directly at the light. If you have any concerns regarding the safety of bright light therapy for you, it is recommended that you consult an chemist instrumentation before using a light box. If you have a condition that makes your eyes very sensitive to light, macular degeneration, a family history of such problems, or diabetic changes to your eyes, consult an chemist instrumentation before using a light box. If you have anxiety disorder and have an increase in anxiety discontinue use. RESSIVE CARE NURSE documented in this encounter Progress Notes * Abhishek Acevedo PA-C - 09/15/2023 11:00 AM CST Images from the original note were not included. Outpatient Sleep Medicine Consultation: Name: Latricia Hatch Age: [age] year old Date of : 1990 Date of Consultation: September 14, 2023 Consultation is requested by: Rosalba Pendleton APRN ASSEMBLER WATCH TRAIN [address] [facility] [id number] [place] [address] Rosalba Wu Primary care provider: Monty Musa Reason for Sleep Consult: Latricia Hatch is sent by Rosalba Wu for a sleep consultation regarding history of MEDARDO, insomnia and morning headache. Patient???s Reason for visit Latricia Hatch main reason for visit: Insomnia, increased headaches upon waking, increased movementsin sleep Patient states problem(s) started: Began to get worse approximately 9 months ago. Latricia Hatch's goals for this visit: Come up with a plan to detemine if previous sleep issues havereturned or worsened. Assessment and Plan: Summary Sleep Diagnoses and Recommendations: (Z86.69) History of sleep apnea (primary encounter diagnosis), (R51.9) Morning headache Comment: Latricia had a sleep study in 2016 that showed an AHI of 24.5/hr, almost entirely mixed hypopneas. It was not positional. She did not tolerate CPAP. She could not fall asleep with it. She has lost about 25# since then. She has minimal snoring in the last couple of years. She is currently not observed very closely while sleeping, though. She does wake with headaches and that seems to be worsening. Her father had MEDARDO and was diagnosed with narcolepsy. Latricia has a small airway. Negative riskfactors include: BMI is <35 (28), no HTN, age <50 (32), neck <40 cm (38 cm), female gender. She has a history of dysautonomia which could factor into a number of related symptoms including drenching night sweats about once per week. She also mentions having had a heart rate as low as 30 bpm during sleep. Plan: Comprehensive Sleep Study Given her >10% weight loss and prior CPAP intolerance, I would like to re- evaluate the type and severity of breathing events. Order placed for an in lab PSG. She was advised to bring her clonazepam with her. I recommended trying to fall asleep without it so as to not mask limb movements, but she can take it if not falling asleep. (G47.21) Delayed sleep phase syndrome, (G47.00) Insomnia, unspecified type Comment: Latricia has difficulty falling asleep. She goes to bed about 10:30 PM. It takes 1-2 hours tofall asleep most nights. Sometimes she does not fall asleep until 3-4 AM. She will take 0.5 mg clonazepam about once a week if it is getting to 2 AM and she is still awake. She has an alarm set at 9:30 AM. She may nap 1-2 hours in the late morning if she does not fall asleep until 2-4 AM. Plan: We discussed getting 30 minutes of bright light exposure in the morning, either with the sun or a SAD Lamp of 10,000 lux intensity. Avoid bright light, including electronics, in the hour beforebedtime. Take 1 mg melatonin 3-5 hours prior to natural sleep onset. Keep a consistent sleep schedule, avoiding naps and sleeping in. Limit time in bed to about 8.5 hours (G25.81) Restless legs syndrome (RLS), (E61.1) Low iron Comment: She has restless legs about twice per week. She has some history of low iron on prior labwork. She also donates blood occasionally and will take a [employer] vitamin with iron for a week before and after donating. She has not noticed worsening symptoms after donating. Plan: Ferritin I will check ferritin. If that is normal, we may consider a trial of gabapentin. Comorbid Diagnoses: Anxiety, depression, PCOS, MEDARDO and central sleep apnea, migraines Summary Counseling: Sleep Testing Reviewed Obstructive Sleep Apnea Reviewed Complications of Untreated Sleep Apnea Reviewed Patient will follow up as soon as possible after the sleep study. We will review his results over MyChart and initiate treatment before the follow up if the follow up is significantly delayed. Abhishek Acevedo PA-C Total time spent reviewing medical records, history and physical examination, review of previous testing and interpretation as well as documentation on this date:80 min CC: Rosalba Franz* History of Present Illness: Latricia wakes with headaches which last 2-3 hours. PSG in 2016 showed moderately severe apnea, mostlymixed hypopneas. Her sleep was highly fragmented. She also had limb movements accompanying many of these events, in both NREM and REM sleep. She tried CPAP for about a year but did not tolerate it. She tried 3 different styles of masks. She could not fall asleep with it. Her weight is down 25# since her sleep study. She had an EEG done at [facility] for autonomic dysfunction. There was no abnormal EEG but report describes an event where her entire body seemed to lose tone despite the EEG being consistent with wakefulness. Tilt table testing was not abnormal. She has clonazepam 0.5 mg for anxiety. She takes it about once per week for sleep. She takes hydroxyzine daily and it does not make her sleepy. Past Sleep Evaluations: 05/05/2016. (Wt: 200#) AHI 24.5/hr (mostly mixed hypopneas). Supine AHI 20.5/hr (non-supine AHI 30.9/hr), REM AHI 32.7/hr. O2 maxwell 90.8%. SLEEP-WAKE SCHEDULE: Work/School Days: Patient goes to school/work: No Usually gets into bed at 10:30 Takes patient about 1-2 hours to fall asleep. Sometimes she does not fall asleep until 2-3 AM and then will take clonazepam. Within 30 minutes she can get to sleep then. Has trouble falling asleep 5 nights per week Wakes up in the middle of the night 2-3 times. Wakes up due to Use the bathroom;Uncertain. RRx1 She has trouble falling back asleep 2-3 times times a week. It usually takes 15-30 minutes to get back to sleep Patient is usually up at 9:00-10:00 am Uses alarm: Yes. It is a struggle to get up to the alarm. She probably wouldn't get up until noon if she did not set an alarm. She sleeps better at the end of the night. Weekends/Non-work Days/All Other Days: Usually gets into bed at 10:30/11 Takes patient about 1-2 hours to fall asleep Patient is usually up at 9:00-10:00 am Uses alarm: Yes Sleep Need Patient gets 6 hours sleep on average Patient thinks she needs about 8 hours sleep Latricia Hatch prefers to sleep in this position(s): Side;Stomach Patient states they do the following activities in bed: Watch TV;Use phone, computer, or tablet Naps Patient takes a purposeful nap 3-4 times a week and naps are usually 1-2 hours in duration. She usually takes naps if she did not fall asleep until 3-4 AM. It will be 1-2 hours after she wakes. She falls asleep more quickly for naps. She rarely remembers dreams when napping. She feels better after a nap: Yes She dozes off unintentionally 1-2 days per week. She dozes when scrolling on her phone. Patient has had a driving accident or near-miss due to sleepiness/drowsiness: No She may get drowsyif driving over an hour. That has been more in the last 6 months. SLEEP DISRUPTIONS: Breathing/Snoring Patient snores:Yes, not that bad. It may be a low hum. Other people complain about her snoring: No Patient has been told she stops breathing in her sleep:No, no snorts for at least a couple of years She has issues with the following: Morning headaches. She gets nausea at night often. Movement: Patient gets pain, discomfort, with an urge to move: Yes. Occasionally when trying to get to sleep,she gets restless legs, maybe twice per week. It may last 10-15 minutes. She donates blood and willtake [place] vitamins to boost her iron for about a week before and after donating. Clonazepam does help with that. She took gabapentin in the past for migraines, she tolerated it but it did not help the migraines. It happens when she is resting: Yes It happens more at night: Yes Patient has been told she kicks her legs at night: Yes She moves around a lot and kicks a lot in her sleep. She also changes positions a lot in her sleep. Behaviors in Sleep: Latricia Hatch has experienced the following behaviors while sleeping: Sleep- talking;Teeth grinding;Kicking or punching;Waking up paralyzed;Night terrors (screaming,yelling or acting afraid but not recalling event) She will wake up yelling when she is having a nightmare, maybe once a month. Often the dreams are about some type of bug or spider. She can be chased or running from something and then a bug will jump out at her. It is not a stereotypical dream. When she wakes, she sits up and jerks her arms. Her heart is racing. Her movements are as she is waking, not while she is asleep. About every other month, she feels she can't move for about an hour, although it is usually only 2-3 minutes. She can have her eyes partially open. No hallucinations and no cataplexy. No sleep walking (since childhood). Is there anything else you would like your sleep provider to know: Previous sleep study done showing several sleep anomalies CAFFEINE AND OTHER SUBSTANCES: Patient consumes caffeinated beverages per day: 4-5 diet Coke Last caffeine use is usually: 8pm. She has tried cutting it out after 4 PM and it did not change her sleep. List of any prescribed or over the counter stimulants that patient takes: None List of any prescribed or over the counter sleep medication patient takes: CLONEZEPAM List of previous sleep medications that patient has tried: Melatonin, lunesta, clonezepam. Lunesta 3 mg helped. She took that when her father passed. She was on it for a few months. Melatonin up to 12-15 mg did not help. 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 She is on disability with her dysautonomia. SCALES: EPWORTH SLEEPINESS SCALE 09/13/2023 10:12 PM Arcadia Sleepiness Scale (??Naveen Gupta [id number]
ESS - [place] - Final version - Jul 20 - [facility] Research Mack.) Sitting and reading Slight chance of dozing Watching TV Slight chance of dozing Sitting, inactive in a public place (e.g. a theatre or a meeting) Slight chance of dozing As a passenger in a car for an hour without a break Moderate chance of dozing Lying down to rest in the afternoon when circumstances permit Moderate chance of dozing Sitting and talking to someone Would never doze Sitting quietly after a lunch without alcohol Moderate chance of dozing In a car, while stopped for a few minutes in traffic Slight chance of dozing Arcadia Score (MC) 10 Arcadia Score (Sleep) 10 INSOMNIA SEVERITY INDEX (CHRISTY) ?? 09/13/2023 9:57 PM Insomnia Severity Index (CHRISTY) Difficulty falling asleep 3 Difficulty staying asleep 2 Problems waking up too early 0 How SATISFIED/DISSATISFIED are you with your CURRENT sleep pattern? 3 How NOTICEABLE to others do you think your sleep problem is in terms of impairing the quality of your life? 2 How WORRIED/DISTRESSED are you about your current sleep problem? 2 To what extent do you consider your sleep problem to INTERFERE with your daily functioning (e.g. daytime fatigue, mood, ability to function at work/daily chores, concentration, memory, mood, etc.) CURRENTLY? 3 CHRISTY Total Score 15 Guidelines for Scoring/Interpretation: Total score categories: 0-7 = No clinically significant insomnia 8-14 = Subthreshold insomnia 15-21 = Clinical insomnia (moderate severity) 22-28 = Clinical insomnia (severe) Used via courtesy of www.[employer] Communicationsealth.fl.gov with permission from Tez Treviño PhD., [employer] STOP BANG 09/13/2023 10:13 PM STOP BANG Questionnaire (?? 2008, the [place] Society of Anesthesiologists, Inc. [employer] 1. Snoring - Do you snore loudly (louder than talking or loud enough to be heard through closed doors)? No 2. Tired - Do you often feel tired, fatigued, or sleepy during daytime? Yes 3. Observed - Has anyone observed you stop breathing during your sleep? No 4. Blood pressure - Do you have or are you being treated for high blood pressure? No 5. BMI - BMI more than 35 kg/m2? No 6. Age - Age over 50 yr old? No 7. Neck circumference - Neck circumference greater than 40 cm? No 8. Gender - Gender male? No STOP BANG Score (MC): 2 (Low risk of MEDARDO) GAD7 No data to display CAGE-AID No data to display CAGE-AID reprinted with permission from the [place] Medical Journal, Oscar Wilkes. and LETITIA Barry, Conjoint screening questionnaires for alcohol and drug abuse [place] Medical Journal 94: 135-140, 1994. PATIENT HEALTH QUESTIONNAIRE-9 (PHQ - 9) 07/15/2023 8:52 AM PHQ-9 ([employer]) 1. Little interest or pleasure in doing things 2 2. Feeling down, depressed, or hopeless 2 3. Trouble falling or staying asleep, or sleeping too much 2 4. Feeling tired or having little energy 2 5. Poor appetite or overeating 2 6. Feeling bad about yourself - or that you are a failure or have let yourself or your family down 1 7. Trouble concentrating on things, such as reading the newspaper or watching television 1 8. Moving or speaking so slowly that other people could have noticed. Or the opposite - being so fidgety or restless that you have been moving around a lot more than usual 0 9. Thoughts that you would be better off , or of hurting yourself in some way 0 PHQ-9 Total Score 12 If you checked off any problems, how difficult have these problems made it for you to do your work,take care of things at home, or get along with other people? Somewhat difficult 6. Feeling bad about yourself 1 7. Trouble concentrating 1 8. Moving slowly or restless 0 9. Suicidal or self-harm thoughts 0 Difficulty at work, home, or with people Somewhat difficult Developed by Drs. Joseph Delong, Verena Vasquez, Harshad Cesar and colleagues, with an educational barak from [employer]. No permission required to reproduce, translate, display or distribute. Allergies: Allergies Allergen Reactions Amoxicillin-Pot Clavulanate GI Disturbance Vicodin Hp [Hydrocodone-Acetaminophen] Medications: Current Outpatient Medications Medication Sig Dispense Refill AIMOVIG 140 MG/ML injection Inject 1 mL (140 mg) Subcutaneous every 30 days 1 mL 11 clonazePAM (KLONOPIN) 0.5 MG tablet Take 0.5 mg by mouth daily DULoxetine (CYMBALTA) 30 MG capsule Take 30 mg by mouth 2 times daily fludrocortisone (FLORINEF) 0.1 MG tablet Take 2 tablets (0.2 mg) by mouth daily 180 tablet 3 hydrOXYzine (ATARAX) 50 MG tablet Take 50 mg by mouth daily linaclotide (LINZESS) 290 MCG capsule Take 1 capsule (290 mcg) by mouth every morning before breakfast 90 capsule 3 Magnesium Oxide -Mg Supplement 500 MG TABS [...] tablet 3 Zavegepant HCl 10 MG/ACT SOLN [place] 10 mg in nostril at onset of headache (migraine. Max one spray in 24 hours) 6 each 11 ZOLMitriptan (ZOMIG-ZMT) 5 MG ODT Take 1 tablet (5 mg) by mouth at onset of headache for migraine May repeat in 2 hours. Max 2 tablets/24 hours. 18 tablet 11 Problem List: Patient Active Problem List Diagnosis Date Noted Irritable bowel syndrome without diarrhea 04/15/2016 Priority: Medium Syncope 01/25/2014 Priority: Medium Intractable 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 aura 10/05/2013 Priority: Medium Problem list name updated by automated process. 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 Priority: Medium Abdominal pain, generalized 10/05/2013 Priority: Medium Past Medical/Surgical History: Past Medical History: Diagnosis Date Anesthesia complication sensitivity Autonomic dysfunction Chronic constipation Depression Depressive disorder Generalized anxiety disorder History of colonic polyps HLD (hyperlipidemia) Migraines Mixed sleep apnea Central and obstructive according to 05/05/16 PSG Obesity Other nervous system complications PCOS (polycystic ovarian syndrome) Stomach problems Syncope Past Surgical History: Procedure Laterality Date APPENDECTOMY APPENDECTOMY BREAST SURGERY COLONOSCOPY N/A 12/10/2016 Procedure: COMBINED COLONOSCOPY, SINGLE OR MULTIPLE BIOPSY/POLYPECTOMY BY BIOPSY; Surgeon: Chaitanya Colon MD; Location: [facility] COLONOSCOPY WITH CO2 INSUFFLATION N/A 12/13/2014 Procedure: COLONOSCOPY WITH CO2 INSUFFLATION; Surgeon: Adelso Dawson MD; Location: [facility]OPEDIC SURGERY [facility] EXPLOR[facility]ORY OF ABDOMEN Social History: Social History Socioeconomic History Marital status: Spouse name: Not on file Number of children: Not on file Years of education: Not on file Highest education level: Not on file Occupational History Not on file Tobacco Use Smoking status: Never Smokeless tobacco: Never Substance and Sexual Activity Alcohol use: No Drug use: No Sexual activity: Yes Partners: Male control/protection: Pill Other Topics Concern Not on file Social History Narrative Not on file Social Determinants of Health Financial Resource Strain: Not on file Food Insecurity: Not on file Transportation Needs: Not on file Physical Activity: Not on file Stress: Not on file Social Connections: Not on file Interpersonal Safety: Not on file Housing Stability: Not on file Family History: Family History Problem Relation Age [...] of Ulcerative Colitis No family hx of Review of Systems: A complete review of systems reviewed by me is negative with the exeption of what has been mentioned in the history of present illness. In the last TWO WEEKS have you experienced any of the following symptoms? Fevers: No Night Sweats: Yes, weekly-drenched Weight Gain: Yes Pain at Night: No Double Vision: No Changes in Vision: Yes Difficulty Breathing through Nose: No Sore Throat in Morning: No Dry Mouth in the Morning: No Shortness of Breath Lying Flat: Yes Shortness of Breath With Activity: No Awakening with Shortness of Breath: No Increased Cough: No Heart Racing at Night: Yes Swelling in Feet or Legs: No Diarrhea at Night: No Heartburn at Night: No Urinating More than Once at Night: Yes Losing Control of Urine at Night: No Joint Pains at Night: No Headaches in Morning: Yes Weakness in Arms or Legs: No Depressed Mood: Yes Anxiety: Yes Physical Examination: Vitals: BP 121/84 Pulse 75 Ht 1.676 m (5' 5.98) Wt 80.1 kg (176 lb 9.6 oz) SpO2 100% BMI28.52 kg/m?? Neck Cir (cm): 38 cm GENERAL APPEARANCE: healthy, alert, no distress, and cooperative EYES: Eyes grossly normal to inspection, PERRL, conjunctivae and sclerae normal, and lids and lashes normal HENT: oropharynx small and oral mucous membranes moist NECK: no adenopathy, no asymmetry, masses, or scars, thyroid normal to palpation, and trachea midline and normal to palpation RESP: lungs clear to auscultation - no rales, rhonchi or wheezes CV: regular rates and rhythm, no murmur, click or rub, and no irregular beats LYMPHATICS: no cervical adenopathy MS: extremities normal- no gross deformities noted NEURO: Normal strength and tone, mentation intact, and speech normal Mallampati Class: IV. Tonsillar Stage: 1 hidden by pillars. Data: All pertinent previous laboratory data reviewed Recent Labs Lab Test 07/09/23 1344 07/15/22 0006 NA 135 136 POTASSIUM 4.3 3.3* CHLORIDE 98 100 CO2 27 25 ANIONGAP 10 11 GLC 77 88 BUN 8.6 7.0 CR 0.71 0.70 JESUS 9.5 9.0 Recent Labs Lab Test 07/09/23 1344 WBC 4.4 RBC 4.43 HGB 13.0 HCT 39.0 MCV 88 MCH 29.3 MCHC 33.3 RDW 13.8 PLT 249 Recent Labs Lab Test 07/09/23 1344 PROTTOTAL 7.6 ALBUMIN 5.0 BILITOTAL 0.5 ALKPHOS 91 AST 27 ALT 24 TSH (mU/L) Date Value 03/04/2022 0.65 10/30/2013 0.56 No results found for: UAMP, UBARB, BENZODIAZEUR, UCANN, UCOC, OPIT, UPCP No results found for: IRONSAT, [id number], JOE No results found for: PH, PHARTERIAL, PO2, KT4CCQBYUVD, SAT, PCO2, HCO3, BASEEXCESS, ALO, BEB @LABRCNTIPR(phv:4,pco2v:4,po2v:4,hco3v:4,mauro:4,o2per:4)@ Echocardiology: No results found for this or any previous visit (from the past 4320 hour(s)). Chest x-ray: No results found for this or any previous visit from the past [address]: No results found for this or any previous visit from the past 365 days. PFT: Most Recent [facility] Pulmonary Function Testing No results found for: Abhishek Acevedo PA-C, KEILA 09/14/2023 RESSIVE CARE NURSE documented in this encounter Nursing Notes * Terry Vasquez MA - 09/15/2023 11:00 AM CST Chief Complaint Patient presents with Sleep Problem Wakes up with headache, lots of movement, insomnia Initial BP 121/84 Pulse 75 Ht 1.676 m (5' 5.98) Wt 80.1 kg (176 lb 9.6 oz) SpO2 100% BMI28.52 kg/m?? Estimated body mass index is 28.52 kg/m?? as calculated from the following: Height as of this encounter: 1.676 m (5' 5.98). Weight as of this encounter: 80.1 kg (176 lb 9.6 oz). Medication Reconciliation: complete ESS 10 Neck circumference: 38 centimeters. Terry Vasquez MA RESSIVE CARE NURSE documented in this encounter Plan of Treatment Upcoming Encounters Date Type Department Care Team (Late st Contact Info) Description 09/29/2023 9:30 AM PROGRESSIVE CARE NURSE Ancillary Procedure [facility] [address] [place] [phone] Zain Quintana MD [address] [place], [place] 7939[address] 10/01/2023 9:30 AM PROGRESSIVE CARE NURSE Ancillary Procedure [facility] [address] [place] [phone] Zain Quintana MD [address] [place] [address] 10/18/2023 PRE VISIT [facility] [place] [address] [facility] [address] 4th [place] [phone] Airam Hodges PA-C 500 [place] [address] Previsit 10/21/2023 11:30 AM PROGRESSIVE CARE NURSE Therapy Visit [facility] Rehabilitation Services [facility] [address] [facility] [address] [place] [address] Zain Quintana MD [address] [place], [place] 367405 [place] [address] [place] [address] 10/26/2023 1:00 PM PROGRESSIVE CARE NURSE Virtual Visit [facility]ology [facility] [address] [phone] Latricia Pettit PA-C [address] [place] [address] 10/28/2023 10:50 AM PROGRESSIVE CARE NURSE Therapy Visit [address] [address] Zain Quintana MD [address] [place] [address] 653505 Lainey Simon, PT [address] [place] [address] 11/04/2023 10:50 AM PROGRESSIVE CARE NURSE Therapy Visit [address] [address] Zain Quintana MD [address] [place] [address] 611165 Lainey Simon, PT [address] [place] [address] 11/24/2023 10:40 AM CDT Office Visit [facility] [address] [phone] Abby Vasquez MD [address] [place] [address] 01/13/2024 10:00 AM CDT Virtual Visit [facility] Neurology Clinic [address] [phone] Rosalba Pendleton APRN [address] [place] [id number] [place] [address] 01/20/2024 8:00 PM CDT Therapy Visit [facility] Sleep [facility] [address] [address] [place] [phone] 03/14/2024 10:30 AM CDT Office Visit [facility] [address] [place] [phone] Abhishek Acevedo PA-C [address] [id number] 03/21/2024 11:30 AM CDT Office Visit [facility] [address] 4th [place] [phone] Zain Quintana MD [address] [place] [address] Scheduled Orders Name Type Priority Associated Diagnoses Orde r Schedule Comprehensive Sleep Study Procedures Routine History of sleep apnea Morning headache Expected: 09/29/2023 (Approximate), Expires: 03/15/2024 documented as of this encounter Results * Ferritin (09/17/2023 1:20 PM PROGRESSIVE CARE NURSE) Ferritin 40 6 - 175 ng/mL 09/17/2023 9:34 PM PROGRESSIVE CARE NURSE U [facility] Blood BLOOD SPECIMEN / Unknown Venipuncture / Unknown 09/17/2023 1:20 PM PROGRESSIVE CARE NURSE 09/17/2023 1:20 PM PROGRESSIVE CARE NURSE Abhishek Acevedo PA-C LAB - BLOOD ORDE MARQUE[facility] [address] [facility] [address], Room 3-580 [place] [address] [phone] documented in this encounter Visit Diagnoses Diagnosis 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, delayed sleep phase type History of sleep apnea Personal history of other specified diseases Morning headache Headache Insomnia, unspecified type Restless legs syndrome (RLS) Low iron Iron deficiency anemia, unspecified documented in this encounter Additional Health Concerns Assessment Noted Time PHQ-9 Depression Total Score: 12 023 8:53 AM CDT documented as of this encounter Care Teams Crate Liner Relationship Specialty Start Date End Date Monty Musa MD [facility] [address] [place] [address] PCP - General Family Medicine 08/13/21 Alfonso Tang [facility] [address] [place] [address] [facility] 08/13/21 Dayanara Bee MD 420 [facility] 75 [place] [address] Pediatrics 12/26/14 Min Lange MD 420 [facility] 75 [place] [address] Neurology 03/30/16 Marlo Madsen MD [address] [place] [address] 508 [place] [address] Cardiology 10/27/16 Mel Buckley, RN Nurse Coordinator Physical Medicine and Rehabilitation 12/02/16 Douglas Cadet MD [address] [place] [address] Gastroenterology 08/13/21 Rosalba Pendleton APRN ASSEMBLER WATCH TRAIN [address] [place], [place] [address] [place] [address] Nurse Practitioner Neurology 09/05/21 Rosalba Pendleton POACHER WRINGER OPERATOR ASSEMBLER WATCH TRAIN 909 [facility] [id number] [place], [place] 398685 Assigned Neuroscience Provider 11/09/21 Marlo Madsen MD 420 [facility] 508 [place], [place] 543155 Assigned Heart and Vascular Provider 03/14/22 Abby Vasquez MD [address] [place] [address] 140275 Gastroenterology 07/16/22 Abby Vasquez MD [address] [place] [address] 859015 Assigned PCP 09/26/22 Ariam Hodges PA-C [address] [place] [address] 688925 Physician Commercial Hvac Service Technician Surgery 07/19/23 documented as of this encounter
--- OUTSIDE RECORDS SUMMARY | 2023-09-27 15:45 | XMS_ITS | Encounter Summary ---
Author Name Unknown Organization [facility] Address [address] [facility] [place] [address] Care Team Providers Care Scrap Stripper Hand Name Role Phone Monty Musa MD Primary Care Provider [phone] Alfonso Tang Unavailable Unavailable Dayanara Bee MD Unavailable [phone] Min Lange MD Unavailable Unavailable Marlo Madsen MD Unavailable [phone] Mel Buckley RN Unavailable [phone] Douglas Cadet MD Unavailable Rosalba Pendleton APRN BLOOD SPLATTER ANALYST Unavaila ble Rosalba Pendleton APRN BLOOD SPLATTER ANALYST Unavaila ble Marlo Madsen MD Unavailable [phone] Abby Vasquez MD Unavailable Abby Vasquez MD Unavailable Airam Hodges PA-C Unavailable [phone] Encounter Details Date Type Department Care Team (Latest Contact Info) Description 09/13/2023 Travel Social History Tobacco Use Types Packs/Day [...] Sex Assigned at Female 10/31/2021 7:59 AM CEPHALOMETRIC TRACER Gender Identity Female 10/31/2021 7:59 AM CEPHALOMETRIC TRACER Sexual Orientation Straight 10/31/2021 7: 59 AM CEPHALOMETRIC TRACER documented as of this encounter Plan of Treatment Upcoming Encounters Date Type Department Care Team (Late st Contact Info) Description 09/29/2023 9:30 AM CEPHALOMETRIC TRACER Ancillary Procedure [facility] [address] [facility] [address] [place] [phone] Zain Quintana MD [address] [place], [place] 865305 10/01/2023 9:30 AM CEPHALOMETRIC TRACER Ancillary Procedure [facility] [address] [facility] [address] [place] [phone] Zain Quintana MD [address] [place], [place] 080905 10/18/2023 PRE VISIT [facility] [place] [address] [facility] [address] 4th [place] [phone] Airam Hodges PA-C 500 [place], [place] 454205 Previsit 10/21/2023 11:30 AM CEPHALOMETRIC TRACER Therapy Visit [facility] Rehabilitation Services [facility] [address] [facility] [address] [place] [address] Zain Quintana MD 500 [place], [place] 923415 [place] [address] [place] [address] 10/26/2023 1:00 PM CEPHALOMETRIC TRACER Virtual Visit [facility] Gastroenterology [address] [phone] Latricia Pettit PA-C [address] [place] [address] 10/28/2023 10:50 AM CEPHALOMETRIC TRACER Therapy Visit [address] [address] Zain Quintana MD [address] [place] [address] 195215 Lainey Simon, JAY [address] [place] [address] 11/04/2023 10:50 AM CEPHALOMETRIC TRACER Therapy Visit [address] [address] Zain Quintana MD [address] [place] [address] 286505 Lainey Simon, JAY [address] [place] [address] 11/24/2023 10:40 AM CDT Office Visit [facility] Gastroenterology [address] [phone] Abby Vasquez MD [address] [place] [address] 415365 01/13/2024 10:00 AM CDT Virtual Visit [facility] Neurology [address] [phone] Rosalba Pendleton, CORPORATE PHYSICAL SECURITY SUPERVISOR BLOOD SPLATTER ANALYST 909 [facility] [id number] [place], [place] 4520[address] 01/20/2024 8:00 PM CDT Therapy Visit [facility] Sleep [facility] [address] [place] [phone] 03/14/2024 10:30 AM CDT Office Visit [facility] 6363 [facility] 103 [place] [phone] Abhishek Acevedo PA-C [address] [phone] 03/21/2024 11:30 AM CDT Office Visit [facility] [address] 4th [place] [phone] Zain Quintana MD [address] [place] [address] 840485 documented as of this encounter Visit Diagnoses Not on filedocumented in this encounter Additional Health Concerns Assessment Noted Time PHQ-9 Depression Total Score: 12 023 8:53 AM CDT documented as of this encounter Care Teams Scrap Stripper Hand Relationship Specialty Start Date End Date Monty Musa MD [facility] [address] [place] [address] PCP - General Family Medicine 08/13/21 Alfonso Tang [facility] [address] [place] [address] Family Practice 08/13/21 Dayanara Bee MD [address] [place] [address] 75 [place] [address] Pediatrics 12/26/14 Min Lange MD 420 [facility] 75 [place] [address] Neurology 03/30/16 Marlo Madsen MD [address] [place] [address] 508 [place] [address] Cardiology 10/27/16 Mel Buckley, RN Nurse Coordinator Physical Medicine and Rehabilitation 12/02/16 Douglas Cadet MD [address] [place] [address] Gastroenterology 08/13/21 Rosalba Pendleton APRN BLOOD SPLATTER ANALYST [address] [place] [address] 132985 Nurse Practitioner Neurology 09/05/21 Rosalba Pendleton APRN BLOOD SPLATTER ANALYST [address] [place] [address] 489695 Assigned Neuroscience Provider 11/09/21 Marlo Madsen MD [address] [place] [address] 720415 Assigned Heart and Vascular Provider 03/14/22 Abby Vasquez MD [address] [place] [address] 408155 Gastroenterology 07/16/22 Abby Vasquez MD [address] [place] [address] Assigned PCP 09/26/22 Airam Hodges PA-C 500 [place] [address] Physician Area Development Manager Surgery 07/19/23 documented as of this encounter
--- OUTSIDE RECORDS SUMMARY | 2023-09-27 15:45 | XMS_ITS | Encounter Summary ---
Author Name Unknown Organization [facility] Address [address] [facility] [place] [address] Care Team Providers Care Apartment Manager Name Role Phone Monty Musa MD Primary Care Provider Alfonso Tang Unavailable Unavailable Dayanara Bee MD Unavailable [phone] Min Lange MD Unavailable Unavailable Marlo Madsen MD Unavailable [phone] Mel Buckley RN Unavailable [phone] Douglas Cadet MD Unavailable [phone] Rosalba Pendleton APRN SAMPLE BODY BUILDER Unavaila ble Rosalba Pendleton APRN SAMPLE BODY BUILDER Unavaila ble Marlo Madsen MD Unavailable [phone] Abby Vasquez MD Unavailable Abby Vasquez MD Unavailable Airam Hodges PA-C Unavailable [phone] Encounter Details Date Type Department Care Team (Latest Contact Info) Description 09/17/2023 Travel Social History Tobacco Use Types Packs/Day [...] Sex Assigned at Female 10/31/2021 7:59 AM SANDING MACHINE OPERATOR Gender Identity Female 10/31/2021 7:59 AM SANDING MACHINE OPERATOR Sexual Orientation Straight 10/31/2021 7: 59 AM SANDING MACHINE OPERATOR documented as of this encounter Plan of Treatment Upcoming Encounters Date Type Department Care Team (Late st Contact Info) Description 09/29/2023 9:30 AM SANDING MACHINE OPERATOR Ancillary Procedure [facility] [address] [facility] [address] [place] [phone] Zain Quintana MD 500 [place], [place] [address] 10/01/2023 9:30 AM SANDING MACHINE OPERATOR Ancillary Procedure [facility] [address] [facility] [address] [place] [phone] Zain Quintana MD 500 [place], [place] 332435 10/18/2023 PRE VISIT [facility] [place] [address] [facility] [address] 4th [place] [phone] Airam Hodges PA-C 500 [place], [place] 625515 Previsit 10/21/2023 11:30 AM SANDING MACHINE OPERATOR Therapy Visit [facility] Rehabilitation Services [facility] [address] [facility] [address] [place] [address] Zain Quintana MD 500 [place], [place] 530925 [place] [address] [place] [address] 10/26/2023 1:00 PM SANDING MACHINE OPERATOR Virtual Visit [facility] Gastroenterology [address] [phone] Latricia Pettit PA-C [address] [place] [address] 10/28/2023 10:50 AM SANDING MACHINE OPERATOR Therapy Visit [address] [address] Zain Quintana MD [address] [place] [address] 651725 Lainey Simon, JAY [address] [place] [address] 11/04/2023 10:50 AM SANDING MACHINE OPERATOR Therapy Visit [address] [address] Zain Quintana MD [address] [place] [address] 302385 Lainey Simon, JAY [address] [place] [address] 11/24/2023 10:40 AM CDT Office Visit [facility] Gastroenterology [address] [phone] Abby Vasquez MD [address] [place] [address] 741315 01/13/2024 10:00 AM CDT Virtual Visit [facility] Neurology [address] [phone] Rosalba Pendleton, CAD ADMINISTRATOR SAMPLE BODY BUILDER 909 [facility] [id number] [place], [place] 8817[address] 01/20/2024 8:00 PM CDT Therapy Visit [facility] Sleep [facility] [address] [place] [phone] 03/14/2024 10:30 AM CDT Office Visit [facility] 6363 [facility] 103 [place] [phone] Abhishek Acevedo PA-C [address] [id number] 03/21/2024 11:30 AM CDT Office Visit [facility] [address] 4th [place] [phone] Zain Quintana MD [address] [place] [address] 359135 documented as of this encounter Visit Diagnoses Not on filedocumented in this encounter Additional Health Concerns Assessment Noted Time PHQ-9 Depression Total Score: 12 023 8:53 AM CDT documented as of this encounter Care Teams Apartment Manager Relationship Specialty Start Date End Date Monty Musa MD [facility] [address] [place] [address] PCP - General Family Medicine 08/13/21 Alfonso Tang [facility] [address] [place] [address] Family Practice 08/13/21 Dayanara Bee MD [address] [place] [address] 75 [place] [address] Pediatrics 12/26/14 Min Lange MD 420 [facility] 75 [place] [address] Neurology 03/30/16 Marlo Madsen MD [address] [place] [address] 508 [place] [address] Cardiology 10/27/16 Mel Buckley, RN Nurse Coordinator Physical Medicine and Rehabilitation 12/02/16 Douglas Cadet MD [address] [place] [address] Gastroenterology 08/13/21 Rosalba Pendleton APRN SAMPLE BODY BUILDER [address] [place] [address] 379305 Nurse Practitioner Neurology 09/05/21 Rosalba Pendleton APRN SAMPLE BODY BUILDER [address] [place] [address] 166485 Assigned Neuroscience Provider 11/09/21 Marlo Madsen MD [address] [place] [address] [phone] Assigned Heart and Vascular Provider 03/14/22 Abby Vasquez MD [address] [place] [address] 576905 Gastroenterology 07/16/22 Abby Vasquez MD [address] [place] [address] Assigned PCP 09/26/22 Airam Hodges PA-C 500 [place] [address] Physician Commercial Attorney Surgery 07/19/23 documented as of this encounter
--- OUTSIDE RECORDS SUMMARY | 2023-09-27 15:46 | XMS_ITS | Encounter Summary ---
Author Name Unknown Organization [place] Address [address] [facility] 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 Name Role Phone Monty Musa MD Primary Care Provider [phone] Alfonso Tang Unavailable Unavailable Dayanara Bee MD Unavailable [phone] Min Lange MD Unavailable Unavailable Marlo Madsen MD Unavailable [phone] Mel Buckley RN Unavailable [phone] Douglas Cadet MD Unavailable [phone] Rosalba Pendleton APRN RN MOBILE Unavaila ble Rosalba Pendleton APRN RN MOBILE Unavaila ble Douglas Cadet MD Unavailable [phone] Marlo Madsen MD Unavailable [phone] Abby Vasquez MD Unavailable Abby Vasquez MD Unavailable Reason for Visit * Reason Comments Abdominal Pain Encounter Details Date Type Department Care Team (Late st Contact Info) Description 07/09/2023 1:34 PM CDT - 07/09/2023 6:[address] [facility] Emergency Dept [address] [place] [address] Ashly Colvin DO [facility] [address] [place] [address] Abdominal pain, unspecified abdominal location Discharge Disposition: Home or Self Care Social History Tobacco Use Types Packs/Day Years Used Date Smoking Tobacco: Never Smokeless Tobacco: Never Alcohol Use Standard Drinks/Week Comments No 0 (1 standard drink = 0.6 oz pur e alcohol) PHQ-2 Answer Date Recorded PHQ-2 Score 2 04/02/2023 Adolescent Education Answer Date Record ed Getting School Help Needed Not on file 06/04 Sex and Gender Information Value Date Recorded Sex Assigned at Female 10/31/2021 7:59 AM DRIP BOX TENDER Gender Identity Female 10/31/2021 7:59 AM DRIP BOX TENDER Sexual Orientation Straight 10/31/2021 7: 59 AM DRIP BOX TENDER documented as of this encounter Last Filed Vital Signs Vital Sign Reading Time Taken Comments Blood Pressure 114/58 07/09/2023 6:46 PM CDT Pulse 85 07/09/2023 6:46 PM CDT Temperature 36.3 ??C (97.3 ??F) 07/09/2023 12:06 PM C DT Respiratory Rate 18 07/09/2023 6:46 PM CDT Oxygen Saturation 99% 07/09/2023 6:46 PM CDT Inhaled Oxygen Concentration - - Weight - - Height - - Body Mass Index - - documented in this encounter Discharge Instructions * Discharge Instructions* Ashly Colvin DO - 07/09/2023 6:19 PM CDT Discharge Instructions Abdominal Pain Abdominal pain (belly pain) can be caused by many things. Your evaluation today does not show the exact cause for your pain. Your provider today has decided that it is unlikely your pain is due to a life threatening problem, or a problem requiring surgery or hospital admission. Sometimes those problems cannot be found right away, so it is very important that you follow up as directed. Sometimes only the changes which occur over time allow the cause of your pain to be found. Generally, every Emergency Department visit should have a follow-up clinic visit with either a primary or a specialty clinic/provider. Please follow-up as instructed by your emergency provider today.With abdominal pain, we often recommend very close follow-up, such as the following day. ADULTS: Return to the Emergency Department right away if: You get an oral temperature above 102oF or as directed by your provider. You have blood in your stools. This may be bright red or appear as black, tarry stools. You keep vomiting (throwing up) or cannot drink liquids. You see blood when you vomit. You cannot have a bowel movement or you cannot pass gas. Your stomach gets bloated or bigger. Your skin or the whites of your eyes look yellow. You faint. You have bloody, frequent or painful urination (peeing). You have new symptoms or anything that worries you. CHILDREN: Return to the Emergency Department right away if your child has any of the above-listed symptoms or the following: Pushes your hand away or screams/cries when his/her belly is touched. You notice your child is very fussy or weak. Your child is very tired and is too tired to eat or drink. Your child is dehydrated. Signs of dehydration can be: Significant change in the amount of wet diapers/urine. Your infant or child starts to have dry mouth and lips, or no saliva (spit) or tears. WOMEN: Return to the Emergency Department right away if you have any of the above-listed symptoms or the following: You have bleeding, leaking fluid or passing tissue from the vagina. You have worse pain or cramping, or pain in your shoulder or back. You have vomiting that will not stop. You have a temperature of 100oF or more. Your baby is not moving as much as usual. You faint. You get a bad headache with or without eye problems and abdominal pain. You have a seizure. You have unusual discharge from your vagina and abdominal pain. Abdominal pain is pretty common during . Your pain may or may not be related to your . You should follow-up closely with your OB provider so they can evaluate you and your baby. Until you follow-up with your regular provider, do the following: Avoid sex and do not put anything in your vagina. Drink clear fluids. Only take medications approved by your provider. MORE INFORMATION: Appendicitis: A possible cause of abdominal pain in any person who still has their appendix is acute appendicitis. Appendicitis is often hard to diagnose. Testing does not always rule out early appendicitis or other causes of abdominal pain. Close follow-up with your provider and re-evaluations maybe needed to figure out the reason for your abdominal pain. Follow-up: It is very important that you make an appointment with your clinic and go to the appointment. If you do not follow-up with your primary provider, it may result in missing an important development which could result in permanent injury or disability and/or lasting pain. If there is any problem keeping your appointment, call your provider or return to the Emergency Department. Medications: Take your medications as directed by your provider today. Before using vhyu-wmr-mxbctin medications, ask your provider and make sure to take the medications as directed. If you have any questions about medications, ask your provider. Diet: Resume your normal diet as much as possible, but do not eat fried, fatty or spicy foods whileyou have pain. Do not drink alcohol or have caffeine. Do not smoke tobacco. Probiotics: If you have been given an antibiotic, you may want to also take a probiotic pill or eatyogurt with live cultures. Probiotics have good bacteria to help your intestines stay healthy. Studies have shown that probiotics help prevent diarrhea (loose stools) and other intestine problems (including C. diff infection) when you take antibiotics. You can buy these without a prescription in the pharmacy section of the store. If you were given a prescription for medicine here today, be sure to read all of the information (including the package insert) that comes with your prescription. This will include important information about the medicine, its side effects, and any warnings that you need to know about. The pharmacist who fills the prescription can provide more information and answer questions you may have about the medicine. If you have questions or concerns that the pharmacist cannot address, please call or return to the Emergency Department. Remember that you can always come back to the Emergency Department if you are not able to see your regular provider in the amount of time listed above, if you get any new symptoms, or if there is anything that worries you. * Attachments The following attachments cannot be sent through Care Everywhere. * Abdominal Pain (Afghan) documented in this encounter Medications at Time of Discharge Medication Sig Dispensed Refills Start Date End Date AIMOVIG 140 MG/ML injectionIndications: Intractable 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 Inject 1 mL (140 mg) Subcutaneous every 30 days 1 mL 11 11/03/2022 clonazePAM (KLONOPIN) 0.5 MG tablet Take 0.5 mg by mouth daily 0 08/12/2021 DULoxetine (CYMBALTA) 30 MG capsule Take 30 mg by mouth 2 times daily 0 02/02/2022 fludrocortisone (FLORINEF) 0.1 MG tabletIndications:Vas ovagal syncope Take 2 tablets (0.2 mg) by mouth daily 180 tablet 3 06/22/2023 hydrOXYzine (ATARAX) 50 MG tablet Take 50 mg by mouth daily 0 01/07/2022 Magnesium Oxide -Mg Supplement 500 MG TABSIndications:Chron ic idiopathic constipation,Chronic abdominal pain Take 1 tablet (500 mg) by mouth daily for 180 days 120 tablet 1 04/23/2023 10/20/2023 midodrine (PROAMATINE) 5 MG tabletIndications:Syn cope and collapse,Palpitations ,Vasovagal syncope Take 2 tablets (10mg) in the morning, and 1 tablet (5mg) in the afternoon. Do not take within 4 hours lying down 270 tablet 1 06/04/2023 ondansetron (ZOFRAN ODT) 4 MG ODT tab Take 1 tablet by mouth every 8 hours as needed 0 08/12/2021 order for DMEIndications:Dysaut onomia (H),Heat intolerance Equipment being ordered: Micro climate cooling vest 1 kit 0 04/03/2015 prochlorperazine (COMPAZINE) 5 MG tabletIndications:Int ractable 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 Take 1-2 tablets (5-10 mg) by mouth every 6 hours as needed for nausea or vomiting 20 tablet 3 01/14/2022 ZOLMitriptan (ZOMIG-ZMT) 5 MG ODTIndications:Migrai ne without aura and without status migrainosus, not intractable Take 1 tablet (5 mg) by mouth at onset of headache for migraine May repeat in 2 hours. Max 2 tablets/24 hours. 18 tablet 11 04/02/2023 dicyclomine (BENTYL) 10 MG capsule Take 1 capsule (10 mg) by mouth 3 times daily as needed 21 capsule 0 07/09/2023 07/16/2023 linaclotide (LINZESS) 290 MCG capsuleIndications:Ir ritable bowel syndrome with constipation Take 1 capsule (290 mcg) by mouth every morning before breakfast 90 capsule 3 05/19/2023 09/15/2023 documented as of this encounter ED Notes * Ashly Colvin DO - 07/09/2023 1:39 PM CDT PIT/Triage Evaluation Patient presented with abdominal pain. The patient reports that she has a history of PCOS and uncontrolled IBS. She states that she went 6 days without a bowel movement. She reports that she took Miralax and experienced minimal output 4 days ago. She states that she has not had a bowel movement forthe last 2 days and is experiencing progressive lower abdominal pain. She reports that she is additionally experiencing nausea. She denies being able to pass gas, vomiting, fever, or urinary problems. She reports that her last period was 8 weeks ago; she confirms that this is normal for her. Exam is notable for: General: Alert, interactive Cardiovascular: Well perfused Lungs: No respiratory distress, no accessory muscle use Neuro: Moving all 4 extremities Skin: Warm, dry Psych: Normal affect Appropriate interventions for symptom management were initiated if applicable. Appropriate diagnostic tests were initiated if indicated. Important information for subsequent clinician: Labs, CT abd pelvis ordered. I briefly evaluated the patient and developed an initial plan of care. I discussed this plan and explained that this brief interaction does not constitute a full evaluation. Patient/family understands that they should wait to be fully evaluated and discuss any test results with another clinician prior to leaving the hospital. Ashly Colvin DO 07/09/23 1402 * Deidre Acosta RN - 07/09/2023 12:08 PM CDT Pt here for abdominal pain. Hx of IBS-C and used an enema and a miralax prep a few days ago after 6days of constipation. Had minimal output. Now has pain, distention, and is passing minimal amounts of gas. Endorses some nausea - has used Zofran. Has follow-up w/ GI next week. * Ashly Colvin, DO - 07/09/2023 11:49 AM CDT History Chief Complaint: Abdominal Pain The history is provided by the patient. Latricia Hatch is a 33 year old female who presented to the ED with abdominal pain. The patient reports that she has a history of PCOS and uncontrolled IBS. She states that she went 6 days without a bowel movement. She reports that she took Miralax and experienced minimal output 4 days ago. She states that she has not had a bowel movement for the last 2 days and is experiencing progressive lower abdominal pain. She reports that she is additionally experiencing nausea. She denies being able to pass gas, vomiting, fever, or urinary problems. She reports that her last period was 8 weeks ago; she confirms that this is normal for her. Independent Historian: None - Patient Only Review of External Notes: Reviewed recent MyChart conversation with GI Medications: Aimovig Clonazepam Duloxetine Fludrocortisone Hydroxyzine Linaclotide Magnesium Oxide -Mg Supplement Midodrine Ondansetron Prochlorperazine Zolmitriptan Past Medical History: Anesthesia complication Autonomic dysfunction Chronic constipation Depression Depressive disorder Generalized anxiety disorder History of colonic polyps HLD (hyperlipidemia) Migraines Mixed sleep apnea Obesity Other nervous system complications PCOS (polycystic ovarian syndrome) Stomach problems Syncope Irritable bowel syndrome without diarrhea Intractable 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 aura Postconcussion Syndrome Leukopenia Acute Cystitis Hemorrhoids Dysautonomia Past Surgical History: Colonoscopy (N/A) Colonoscopy with co2 insufflation (N/A) Appendectomy Breast surgery Orthopedic surgery [facility] exploratory of abdomen Physical Exam Patient Vitals for the past 24 hrs: BP Temp Temp src Pulse Resp SpO2 07/09/23 1700 -- -- -- -- -- 99 % 07/09/23 1206 (!) 135/111 97.3 ??F (36.3 ??C) Temporal 71 18 99 % Physical Exam Vitals reviewed. Constitutional: General: She is not in acute distress. Appearance: She is not ill-appearing. HENT: Head: Normocephalic and atraumatic. Eyes: Extraocular Movements: Extraocular movements intact. Cardiovascular: Rate and Rhythm: Normal rate and regular rhythm. Pulmonary: Effort: Pulmonary effort is normal. No respiratory distress. Breath sounds: Normal breath sounds. No wheezing. Abdominal: Palpations: Abdomen is soft. Tenderness: There is no abdominal tenderness. There is no guarding. Musculoskeletal: Cervical back: Normal range of motion. Skin: General: Skin is warm and dry. Neurological: Mental Status: She is alert and oriented to person, place, and time. GCS: GCS eye subscore is 4. GCS verbal subscore is 5. GCS motor subscore is 6. Psychiatric: Behavior: Behavior normal. Emergency Department Course Imaging: CT Abdomen Pelvis w Contrast Final Result IMPRESSION: No acute findings or other explanation for symptoms. Laboratory: Labs Ordered and Resulted from Time of ED Arrival to Time of ED Departure ROUTINE UA WITH MICROSCOPIC REFLEX TO CULTURE - Abnormal Result Value Color Urine Light Yellow Appearance Urine Clear Glucose Urine Negative Bilirubin Urine Negative Ketones Urine Negative Specific [place] Urine 1.005 Blood Urine Negative pH Urine 6.0 Protein Albumin Urine Negative Urobilinogen Urine Normal Nitrite Urine Negative Leukocyte Esterase Urine Negative RBC Urine <1 WBC Urine 1 Squamous Epithelials Urine 4 (*) COMPREHENSIVE METABOLIC PANEL - Normal Sodium 135 Potassium 4.3 Carbon Dioxide (CO2) 27 Anion Gap 10 Urea Nitrogen 8.6 Creatinine 0.71 GFR Estimate >90 Calcium 9.5 Chloride 98 Glucose 77 Alkaline Phosphatase 91 AST 27 ALT 24 Protein Total 7.6 Albumin 5.0 Bilirubin Total 0.5 LIPASE - Normal Lipase 30 MAGNESIUM - Normal Magnesium 2.3 HCG QUALITATIVE URINE - Normal hCG Urine Qualitative Negative HCG QUALITATIVE - Normal hCG Serum Qualitative Negative CBC WITH PLATELETS AND DIFFERENTIAL WBC Count 4.4 RBC Count 4.43 Hemoglobin 13.0 Hematocrit 39.0 MCV 88 MCH 29.3 MCHC 33.3 RDW 13.8 Platelet Count 249 % Neutrophils 51 % Lymphocytes 39 % Monocytes 8 % Eosinophils 1 % Basophils 1 % Immature Granulocytes 0 NRBCs per 100 WBC 0 Absolute Neutrophils 2.2 Absolute Lymphocytes 1.7 Absolute Monocytes 0.3 Absolute Eosinophils 0.1 Absolute Basophils 0.0 Absolute Immature Granulocytes 0.0 Absolute NRBCs 0.0 Emergency Department Course & Assessments: Interventions: Medications CT Scan Flush (62 mLs Intravenous $Given 07/09/231624) iopamidol (ISOVUE-370) solution 500 mL (89 mLs Intravenous $Given 07/09/231624) sodium chloride 0.9% BOLUS 1,000 mL (0 mLs Intravenous Stopped 07/09/23 1748) ondansetron (ZOFRAN) injection 4 mg (4 mg Intravenous $Given 07/09/23 1635) morphine (PF) injection 4 mg (4 mg Intravenous $Given 07/09/23 1651) dicyclomine (BENTYL) capsule 10 mg (10 mg Oral $Given 07/09/23 1734) Independent Interpretation (X-rays, CTs, rhythm strip): None Assessments/Consultations/Discussion of Management or Tests: ED Course as of 07/09/23 1844 WedJul 09, [id number] I briefly obtained history and examined the patient in triage. 1531 Hemoglobin: 13.0 153 I rechecked the patient and explained findings. 170 I rechecked the patient and explained findings. She states that she has cramping. 1814 I rechecked the patient and explained findings. Patient reports that she is feeling better. 1839 I rechecked the patient and explained findings. Social Determinants of Health affecting care: None Disposition: The patient was discharged to home. Impression & Plan Medical Decision Makin-year-old female with history of IBS-C presenting today with abdominal pain. She states that recently over the last 6 days she was constipated gave her cell phone enema as well as MiraLAX. She was able to have a bowel movement. She states that she has had worsening lower abdominal pain, cramping as well as decrease in appetite. She reports nausea without vomiting. She has had no recent fevers. She is on Linzess for her IBS. Patient was given IV fluids, Zofran and morphine for pain. CT scan asnoted above. Lab work is unremarkable. No obvious signs of any acute kidney injury, liver injury. Patient updated on results. She was able to tolerate p.o. while in the ER. She did states she had lower abdominal cramping she was given Bentyl with improvement of her symptoms. I discussed with her the plan for discharge home close follow-up with her GI doctor. Strict return precautions including any worsening pain, inability tolerate p.o. or any concerning symptoms. She verbalized understanding and agreement. She was sent home with a prescription for Bentyl. Diagnosis: ICD-10-CM 1. Abdominal pain, unspecified abdominal location R10.9 Discharge Medications: New Prescriptions DICYCLOMINE (BENTYL) 10 MG CAPSULE Take 1 capsule (10 mg) by mouth 3 times daily as needed Scribe Disclosure: I, Nicolasa Chandra, am serving as a scribe at 3:57 PM on 07/09/2023 to document services personally performed by Ashly Colvin DO based on my observations and the provider's statements to me. 07/09/2023 Ashly Colvin DO Doan, Tiffani, DO 07/09/23 1905 documented in this encounter Plan of Treatment Upcoming Encounters Date Type Department Care Team (Late st Contact Info) Description 09/29/2023 9:30 AM DRIP BOX TENDER Ancillary Procedure [address] [place] [phone] Zain Quintana MD [address] [place], [place] [address] 10/01/2023 9:30 AM DRIP BOX TENDER Ancillary Procedure [facility] [address] [facility] [address] [place] [phone] Zain Quintana MD [address] [place], [place] [address] 10/18/2023 PRE VISIT [place] [facility] [place] [address] [facility] [address] 4th [place] [phone] Airam Hodges PA-C [address] [place], [place] [phone] Previsit 10/21/2023 11:30 AM DRIP BOX TENDER Therapy Visit [place] [facility] [address] [facility] [address] [place] [address] Zain Quintana MD [address] [place], [place] [address] Lainey Simon, JAY [address] [place] [address] 10/26/2023 1:00 PM DRIP BOX TENDER Virtual Visit [place] [facility] [address] [phone] Latricia Pettit PA-C [address] [place] [address] 10/28/2023 10:50 AM DRIP BOX TENDER Therapy Visit [address] [address] Zain Quintana MD [address] [place] [address] Lainey Simon, JAY [address] [place] [address] 11/04/2023 10:50 AM DRIP BOX TENDER Therapy Visit [address] [address] Zain Quintana MD [address] [place] [address] Lainey Simon, JAY [address] [place] [address] 11/24/2023 10:40 AM CDT Office Visit [place] [facility] [address] [phone] Abby Vasquez MD [address] [place] [address] 01/13/2024 10:00 AM CDT Virtual Visit [place] [facility] [address] 3rd [place] [phone] Rosalba Pendleton APRN RN MOBILE [address] [place] [address] [id number] [place] [address] 01/20/2024 8:00 PM CDT Therapy Visit [place] [facility] [address] [facility] [address] [place] [phone] 03/14/2024 10:30 AM CDT Office Visit [facility] [address] [facility] [address] [place] [phone] Abhishek Acevedo PA-C [address] [facility] [address] [place] [address] 03/21/2024 11:30 AM CDT Office Visit [facility] [address]th [place] [phone] Zain Quintana MD [address] [place] [phone] documented as of this encounter Procedures Procedure Name Priority Date/Time Associated Diagnosis Comments CT ABDOMEN PELVIS W CONTRAST STAT 07/09/2023 4:29 PM CDT HCG QUALITATIVE URINE STAT 07/09/2023 3:47 PM CDT ROUTINE UA WITH MICROSCOPIC REFLEX TO CULTURE STAT 07/09/2023 3:47 PM CDT EXTRA TUBE STAT 07/09/2023 1:44 PM CDT EXTRA RED TOP TUBE STAT 07/09/2023 1: 44 PM CDT EXTRA BLUE TOP TUBE STAT 07/09/2023 1 :44 PM CDT CBC WITH PLATELETS AND DIFFERENTIAL STAT 07/09/2023 1:44 PM CDT CBC WITH PLATELETS & DIFFERENTIAL STAT 07/09/2023 1:44 PM CDT MAGNESIUM STAT 07/09/2023 1:44 PM CDT LIPASE STAT 07/09/2023 1:44 PM CDT HCG QUALITATIVE STAT 07/09/2023 1:44 PM CDT COMPREHENSIVE METABOLIC PANEL STAT 07/09/2023 1:44 PM CDT documented in this encounter Results * CT Abdomen Pelvis w Contrast (07/09/2023 4:29 PM CDT) Anatomical Region Laterality Modality Abdomen/Pelvis, SUBRAD CT SHANNON DY, UMP CT ABDOMEN PELVIS, RAD CT Computed Tomography 07/09/2023 4:29 PM CDT Impressions 07/09/2023 4:45 PM CDT IMPRESSION: No acute findings or other explanation for symptoms. Narrative 07/09/2023 4:45 PM CDT EXAM: CT ABDOMEN PELVIS W CONTRAST LOCATION: [facility] DATE: 07/09/2023 INDICATION: r o SBO. hx [...] EXAM: CT ABDOMEN PELVIS W CONTRAST LOCATION: [facility] DATE: 07/09/2023 INDICATION: r o SBO. hx [...] testing is available if warranted by ordering [id number], HCG Quantitative . Urine URINE SPECIMEN OBTAINED BY CLEAN CATCH PROCEDURE / Unknown Non-blood Collection / Unknown 07/09/2023 3:47 PM CDT 07/09/2023 3:57 PM CDT Ashly Colvin DO LAB - URINE ORDERABL ES LABORATORY [facility] [address] [facility] (1st floor, no room number) [place] [id number] [phone] * (ABNORMAL) UA with Microscopic reflex to Culture (07/09/2023 3:47 PM CDT) Color Urine Light Yellow Colorless, Straw, Light Yellow, Yellow 07/09/2023 4:23 PM CDT LABORATORY Appearance Urine Clear Clear 07/09/20 4:23 PM CDT [facility] Glucose Urine Negative Negative mg/dL 07/09/2023 4:23 PM CDT [facility] Bilirubin Urine Negative Negative 4:23 PM CDT [facility] Ketones Urine Negative Negative mg/dL 07/09/2023 4:23 PM CDT [facility] Specific [place] Urine 1.005 1.003 - 1.035 07/09/2023 4:23 PM CDT [facility] Blood Urine Negative Negative 07/09/2023 4:23 PM CDT [facility] pH Urine 6.0 5.0 - 7.0 07/09/2023 4:23 PM CDT [facility] Protein Albumin Urine Negative Negative mg/dL 07/09/2023 4:23 PM CDT [facility] Urobilinogen Urine Normal Normal, 2.0 mg/dL 07/09/2023 4:23 PM CDT [facility] Nitrite Urine Negative Negative 07/09/2023 4:23 PM CDT [facility] Leukocyte Esterase Urine Negative Negative 07/09/2023 4:23 PM CDT [facility] RBC Urine <1 <=2 /HPF 07/09/2023 4:23 PM CDT [facility] WBC Urine 1 <=5 /HPF 07/09/2023 4:23 PM CDT [facility] Squamous Epithelials Urine 4(H) <=1 /HPF 07/09/2023 4:23 PM CDT [facility] Urine URINE SPECIMEN OBTAINED BY CLEAN CATCH PROCEDURE / Unknown Non-blood Collection / Unknown 07/09/2023 3:47 PM CDT 07/09/2023 3:57 PM CDT Narrative LABORATORY - 07/09/2023 4:23 PM CDT Urine Culture not indicated Ashly Colvin DO LAB - URINE ORDERABL ES LABORATORY [facility] Acute Care Lab [address] Lab (1st floor, no room number) [place] [address], [facility] [phone] * HCG QUALitative (blood) (07/09/2023 1:44 PM CDT) hCG Serum Qualitative Negative Negative GADIEL 07/09/2023 4:05 PM CDT RH LABORATORY Comment:This test is for scr eening purposes. Results should be interpreted along with the clinical picture. Confirmation testing is available if warranted by ordering [id number], HCG Quantitative . Blood BLOOD SPECIMEN / Unknown Venipuncture / Unknown 07/09/2023 1:44 PM CDT 07/09/2023 1:54 PM CDT Ashly Colvin DO LAB - BLOOD ORDERABL ES Performing Organization Address City/[facility]/ZIP Co de Phone Number [facility] Care Lab [address] Lab (1st floor, no room number) [place] [address], [facility] [phone] * Extra Red Top Tube (07/09/2023 1:44 PM CDT) Hold Specimen [facility] 07/09/2023 3:01 PM CDT RH LABORATORY Blood BLOOD SPECIMEN / Unknown Venipuncture / Unknown 07/09/2023 1:44 PM CDT 07/09/2023 1:54 PM CDT Ashly Colvin DO LAB - BLOOD ORDERABL ES Performing Organization Address [facility]/ZIP Co de Phone Number [facility] Lab [address] Lab (1st floor, no room number) [place] [address], [facility] [phone] * Extra Blue Top Tube (07/09/2023 1:44 PM CDT) Hold Specimen [facility] 07/09/2023 3:01 PM CDT RH LABORATORY Blood BLOOD SPECIMEN / Unknown Venipuncture / Unknown 07/09/2023 1:44 PM CDT 07/09/2023 1:54 PM CDT Ashly Colvin DO LAB - BLOOD ORDERABL ES Performing Organization Address City/[facility]/ZIP Co de Phone Number [facility] Lab [address] Lab (1st floor, no room number) [place] [address], [facility] [phone] * CBC with platelets and differential (07/09/2023 [...] DO LAB - BLOOD ORDERABL ES LABORATORY [facility] Lab [address] Lab (1st floor, no room number) [place] [address], [facility] [phone] * Magnesium (07/09/2023 1:44 PM CDT) Magnesium 2.3 1.7 - 2.3 mg/dL 07/09/2023 2:16 PM CDT RH LABORATORY Blood BLOOD SPECIMEN / Unknown Venipuncture / Unknown 07/09/2023 1:44 PM CDT 07/09/2023 1:54 PM CDT Ashly Colvin DO LAB - BLOOD ORDERABL ES Performing Organization Address [facility]/ZIP Co de Phone Number LABORATORY [facility] Lab [address] Lab (1st floor, no room number) [place] [address], [facility] [phone] * Lipase (07/09/2023 1:44 PM CDT) Lipase 30 13 - 60 U/L 07/09/2023 2:16 PM CDT RH LABORATORY Blood BLOOD SPECIMEN / Unknown Venipuncture / Unknown 07/09/2023 1:44 PM CDT 07/09/2023 1:54 PM CDT Ashly Colvin DO LAB - BLOOD ORDERABL ES RH LABORATORY [facility] Acute Care Lab [address] [facility] Lab (1st floor, no room number) [place] [address], [facility] [phone] * Comprehensive metabolic panel (07/09/2023 1:44 PM CDT) [facility] Signature Sodium 135 135 - 145 mmol/L 07/09/2023 2:16 PM CDT LABORATORY Comment:Reference intervals for this test were [...] - 29 mmol/L 07/09/2023 2:16 PM CDT LABORATORY Anion Gap 10 7 - 15 mmol/L 07/09/2023 2:16 PM CDT RH LABORATORY Urea Nitrogen 8.6 6.0 - 20.0 mg/dL 07/09/2023 2:16 PM CDT LABORATORY Creatinine 0.71 0.51 - 0.95 mg/dL 07/09/2023 2:16 PM CDT RH LABORATORY GFR Estimate >90 >60 mL/min/1. 73m2 07/09/2023 2:16 PM CDT LABORATORY Calcium 9.5 8.6 - 10.0 mg/dL 07/09/2023 2:16 PM CDT LABORATORY Chloride 98 98 - 107 mmol/L [...] DO LAB - BLOOD ORDERABL ES LABORATORY [facility] Acute Care Lab [address] [facility] Lab (1st floor, no room number) [place] [address], [facility] [phone] documented in this encounter Visit Diagnoses Diagnosis Abdominal pain, unspecified abdominal location documented in this encounter Administered Medications Inactive Administered Medications - up to 3 most recent administrations Medication Order MAR Action Action Date Dose Rate Site CT Scan Flush Intravenous, 100 mL, ONCE, On Wed07/09/23 at 1625, For 1 dose, This entry is for use by Radiology to intermittently used as a flush in patients receiving a CT scan. $Given 07/09/2023 4:25 PM CDT 62 mLs dicyclomine (BENTYL) capsule 10 mg 10 mg, Oral, ONCE, On Wed07/09/23 at 1730, For 1 dose, Recommended to take before meals. $Given 07/09/2023 5:34 PM CDT 10 mg iopamidol (ISOVUE-370) solution 500 mL 500 mL, Intravenous, ONCE, On Wed07/09/23 at 1625, For 1 dose $Given 07/09/2023 4:25 PM CDT 89 mLs morphine (PF) injection 4 mg 4 mg, Intravenous, ONCE, On Wed07/09/23 at 1640, For 1 dose $Given 07/09/2023 4:51 PM CDT 4 mg ondansetron (ZOFRAN) injection 4 mg 4 mg, Intravenous, ONCE, Administer over 2-5 Minutes, On Wed07/09/23 at 1630, For 1 dose, Irritant. $Given 07/09/2023 4:35 PM CDT 4 mg sodium chloride 0.9% BOLUS 1,000 mL Intravenous, 1,000 mL, ONCE, at 1,000 mL/hr, Administer over 1 Hours, On Wed07/09/23 at 1630, For 1 dose $New Bag 07/09/2023 4:35 PM CDT 1,000 mLs 1000 mL/hr documented in this encounter Active and Recently Administered Medications Times are shown in CDT. Scheduled Medication Order 07/07/2023 07/08/2023 07/09/2023 CT Scan Flush (COMPLETED) Intravenous, 100 mL, ONCE, On Wed07/09/23 at 1625, For 1 dose, This entry is for use by Radiology to intermittently used as a flush in patients receiving a CT scan. 1625 ($Given - Provi sofia: Kristina Vu) dicyclomine (BENTYL) capsule 10 mg (COMPLETED) 10 mg, Oral, ONCE, On Wed07/09/23 at 1730, For 1 dose, Recommended to take before meals. 1734 ($Given - Provi sofia: Sue Webb RN) iopamidol (ISOVUE-370) solution 500 mL (COMPLETED) 500 mL, Intravenous, ONCE, On Wed07/09/23 at 1625, For 1 dose 1625 ($Given - Provi sofia: Kristina Renee Vu) morphine (PF) injection 4 mg (COMPLETED) 4 mg, Intravenous, ONCE, On Wed07/09/23 at 1640, For 1 dose 1651 ($Given - Provi sofia: Sue Webb, DIAZ) ondansetron (ZOFRAN) injection 4 mg (COMPLETED) 4 mg, Intravenous, ONCE, Administer over 2-5 Minutes, On Wed07/09/23 at 1630, For 1 dose, Irritant. 1635 ($Given - Provi sofia: Sue Webb RN) sodium chloride 0.9% BOLUS 1,000 mL (COMPLETED) Intravenous, 1,000 mL, ONCE, at 1,000 mL/hr, Administer over 1 Hours, On Wed07/09/23 at 1630, For 1 dose 1635 ($New Bag - Pro vider: Sue Webb, DIAZ)1748 (Stopped - Provider: Sue Webb RN) documented in this encounter Additional Health Concerns Assessment Noted Time PHQ-9 Depression Total Score: 11 022 11:52 AM CDT documented as of this encounter Care Teams Foam Machine Operator Relationship Specialty Start Date End Date Monty Musa MD [facility] [address] [place] [address] PCP - General Family Medicine 08/13/21 Alfonso Tang [facility] [address] [place] [address] Family Practice 08/13/21 Dayanara Bee MD [address] [facility] 75 [place], [place] [address] Pediatrics 12/26/14 Min Lange MD [address] [facility] [address] [place] [address] Neurology 03/30/16 Marlo Madsen MD [address] [facility] [address] [place] [address] Cardiology 10/27/16 Mel Buckley, RN Nurse Coordinator Physical Medicine and Rehabilitation 12/02/16 Douglas Cadet MD 500 [place], [place] [address] Gastroenterology 08/13/21 Rosalba Pendleton APRN RN [facility]BILE [address] [facility] [place] [address] Nurse Practitioner Neurology 09/05/21 Rosalba Pendleton APRN RN MOBILE [address] [place] [address] [address] Assigned Neuroscience Provider 11/09/21 Douglas Cadet MD [address] [place] [address]54115 Assigned Gastroenterology Provider 03/14/22 09/03/23 Marlo Madsen MD [address] [place] [address] 508 [place] [address] Assigned Heart and Vascular Provider 03/14/22 Abby Vasquez MD [address] [place] [address] 422265 Gastroenterology 07/16/22 Abby Vasquez MD [address] [place] [address] [id number] Assigned PCP 09/26/22 documented as of this encounter
--- OUTSIDE RECORDS SUMMARY | 2023-09-27 15:46 | XMS_ITS | Encounter Summary ---
Author Name Unknown Organization [place] Address [address] [facility] [place] [address] Care Team Providers Care Precision Dyer Name Role Phone Monty Musa MD Primary Care Provider [phone] Alfonso Tang Unavailable Unavailable Dayanara Bee MD Unavailable [phone] Min Lange MD Unavailable Unavailable Marlo Madsen MD Unavailable [phone] Mel Buckley RN Unavailable [phone] Douglas Cadet MD Unavailable [phone] Rosalba Pendleton APRN TECHNICIAN'S HELPER Unavaila ble Rosalba Pendleton APRN TECHNICIAN'S HELPER Unavaila ble Douglas Cadet MD Unavailable [phone] Marlo Madsen MD Unavailable [phone] Abby Vasquez MD Unavailable Abby Vasquez MD Unavailable Encounter Details Date Type Department Care Team (Latest Contact Info) Description 07/09/2023 Travel Social History Tobacco Use Types Packs/Day [...] Sex Assigned at Female 10/31/2021 7:59 AM HOTEL STAFF MEMBER Gender Identity Female 10/31/2021 7:59 AM HOTEL STAFF MEMBER Sexual Orientation Straight 10/31/2021 7: 59 AM HOTEL STAFF MEMBER documented as of this encounter Plan of Treatment Upcoming Encounters Date Type Department Care Team (Late st Contact Info) Description 09/29/2023 9:30 AM HOTEL STAFF MEMBER Ancillary Procedure [facility] [address] [facility] [address] [place] [phone] Zain Quintana MD [address] [place], [place] [address] 10/01/2023 9:30 AM HOTEL STAFF MEMBER Ancillary Procedure [facility] [address] [facility] [address] [place] [phone] Zain Quintana MD [address] [place], [place] [address] 10/18/2023 PRE VISIT [facility] Colon and [facility]al Surgery [facility] [place] [address] [facility] [address] 4th [place] [phone] Airam Hodges PA-C 500 [place], [place] 87[address] Previsit 10/21/2023 11:30 AM HOTEL STAFF MEMBER Therapy Visit [facility] Rehabilitation Services [facility] [address] [facility] [address] [place] [address] Zain Quintana MD [address] [place], [place] [address] [place] [address] [place] [address] 10/26/2023 1:00 PM HOTEL STAFF MEMBER Virtual Visit [facility] Gastroenterology [address] [phone] Latricia Pettit PA-C [address] [place] [address] 10/28/2023 10:50 AM HOTEL STAFF MEMBER Therapy Visit [address] [address] Zain Quintana MD [address] [place] [address] Lainey Simon, JAY [address] [place] [address] 11/04/2023 10:50 AM HOTEL STAFF MEMBER Therapy Visit [address] [address] Zain Quintana MD [address] [place] [address] 991495 Lainey Simon, JAY [address] [place] [address] 11/24/2023 10:40 AM CDT Office Visit [facility] Gastroenterology [address] [phone] Abby Vasquez MD [address] [place] [address]295 01/13/2024 10:00 AM CDT Virtual Visit [facility] Neurology [address] [phone] Rosalba Pendleton, SCIENCES DEAN TECHNICIAN'S HELPER 909 [facility] [id number] [place] [address] 01/20/2024 8:00 PM CDT Therapy Visit [facility] Sleep [facility] [address] [place] [phone] 03/14/2024 10:30 AM CDT Office Visit [facility] Sleep [facility] 6363 [facility] 103 [place] [phone] Abhishek Acevedo PA-C [address] [phone] 03/21/2024 11:30 AM CDT Office Visit [facility] Colon [facility]al [facility] [address] 4th [place] [phone] Zain Quintana MD [address] [place] [address] 721785 documented as of this encounter Visit Diagnoses Not on filedocumented in this encounter Additional Health Concerns Assessment Noted Time PHQ-9 Depression Total Score: 11 022 11:52 AM CDT documented as of this encounter Care Teams Precision Dyer Relationship Specialty Start Date End Date Monty Musa MD [facility] [address] [place] [address] PCP - General Family Medicine 08/13/21 Alfonso Tang [facility] [address] [place] [address] Family Practice 08/13/21 Dayanara Bee MD [address] [place] [address] 75 [place] [address] Pediatrics 12/26/14 Min Lange MD 420 [facility] 75 [place] [address] Neurology 03/30/16 Marlo Madsen MD [address] [address] Cardiology 10/27/16 Mel Buclkey, RN Nurse Coordinator Physical Medicine and Rehabilitation 12/02/16 Douglas Cadet MD 500 [place] [address] Gastroenterology 08/13/21 Rosalba Pendleton APRN TECHNICIAN'S HELPER [address] [place] [address]405 Nurse Practitioner Neurology 09/05/21 Rosalba Pendleton APRN TECHNICIAN'S HELPER [address] [place] [address] [phone] Assigned Neuroscience Provider 11/09/21 Douglas Cadet MD 500 [place] [address] Assigned Gastroenterology Provider 03/14/22 09/03/23 Marlo Madsen MD [address] [address] Assigned Heart and Vascular Provider 03/14/22 Abby Vasquez MD [address] [place] [address] Gastroenterology 07/16/22 Abby Vasquez MD 9 [place] [address] Assigned PCP 09/26/22 documented as of this encounter
--- OUTSIDE RECORDS SUMMARY | 2023-09-27 15:46 | XMS_ITS | Encounter Summary ---
Author Name Unknown Organization [place] Address [address] [facility] [place] [address] Care Team Providers Care Locker Attendant Name Role Phone Monty Musa MD Primary Care Provider [phone] Alfonso Tang Unavailable Unavailable Dayanara Bee MD Unavailable [phone] Min Lange MD Unavailable Unavailable Marlo Madsen MD Unavailable [phone] Mel Buckley RN Unavailable [phone] Douglas Cadet MD Unavailable [phone] Rosalba Pendleton APRN HELIX COIL WINDER Unavaila ble Rosalba Pendleton APRN HELIX COIL WINDER Unavaila ble Douglas Cadet MD Unavailable [phone] Marlo Madsen MD Unavailable [phone] Abby Vasquez MD Unavailable Abby Vasquez MD Unavailable Reason for Visit * Reason Onset Date Comments Refill Request 06/01/2023 midodrine (PROAM ATINE) 5 MG tablet Encounter Details Date Type Department Care Team (Late st Contact Info) Description 06/01/2023 Refill [facility] 909 [place] [phone] Marlo Madsen MD 420 [facility] 508 [place], [place] [address] Refill Request (midodrine (PROAMATINE) 5 MG tablet) Social History Tobacco Use Types Packs/Day Years [...] Sex Assigned at Female 10/31/2021 7:59 AM BROOM MAKER Gender Identity Female 10/31/2021 7:59 AM BROOM MAKER Sexual Orientation Straight 10/31/2021 7: 59 AM BROOM MAKER documented as of this encounter Miscellaneous Notes * Telephone Encounter - Lucinda Sandoval RN - 06/04/2023 11:13 AM CDT midodrine (PROAMATINE) 5 MG tablet 180 tablet 1 01/19/2023 Direction change from last clinic visit. Needs new Rx sent in Plan 1. Increase midodrine to 10 mg in the morning and 5 at noon Not on refill protocol Lucinda Sandoval RN * Telephone Encounter - Palma Colby LPN - 06/01/2023 12:39 PM CDT Images from the original note were not included. documented in this encounter Plan of Treatment Upcoming Encounters Date Type Department Care Team (Late st Contact Info) Description 09/29/2023 9:30 AM BROOM MAKER Ancillary Procedure M [address] [place] [address] Zain Quintana MD 500 [place] [address] 10/01/2023 9:30 AM BROOM MAKER Ancillary Procedure [facility] [address] [place] [phone] Zain Qiuntana MD 500 [place], [place] [address] 10/18/2023 PRE VISIT [facility] Colon and Rectal Surgery Clinic [address] [phone] Airam Hogdes PA-C 500 [place], [place] [address] Previsit 10/21/2023 11:30 AM BROOM MAKER Therapy Visit [address] [place] [address] Zain Quintana MD 500 [place], [place] [address] [place] [address] [place], [place] [address] 10/26/2023 1:00 PM BROOM MAKER Virtual Visit [facility] Gastroenterology Clinic [address] [phone] Latricia Pettit PA-C 909 [place] [address] 10/28/2023 10:50 AM BROOM MAKER Therapy Visit [address] 300 [place], [place] [address] Zain Quintana MD 500 [place], [place] 5028[address] [place] [address] [place] [address] 11/04/2023 10:50 AM BROOM MAKER Therapy Visit [facility] Rehabilitation Services [facility] [address] [facility] [address] [place] [address] Zain Quintana MD [address] [place] [address] [place] [address] [place] [address] 11/24/2023 10:40 AM CDT Office Visit [facility] Gastroenterology Clinic [address]th [place] [phone] Abby Vasquez MD [address] [place] [address] 01/13/2024 10:00 AM CDT Virtual Visit [facility] Neurology Clinic [address]rd [place] [phone] Rosalba Pendleton APRN [address] [id number] [place] [address] 01/20/2024 8:00 PM CDT Therapy Visit [facility] Sleep [place] [address] [place] [address] 03/14/2024 10:30 AM CDT Office Visit [facility] Sleep [facility] [address] [place] [address] [place] [phone] Abhishek Acevedo PA-C [address] [phone] 03/21/2024 11:30 AM CDT Office Visit [facility] Colon and Rectal Surgery [facility] [place] [address] [facility] 4th [place] [phone] Zain Quintana MD 500 [place] [address] documented as of this encounter Visit Diagnoses Diagnosis Syncope and collapse Palpitations Vasovagal syncope Syncope and collapse documented in this encounter Additional Health Concerns Assessment Noted Time PHQ-9 Depression Total Score: 11 022 11:52 AM CDT documented as of this encounter Care Teams Locker Attendant Relationship Specialty Start Date End Date Monty Musa MD [facility] [address] [place] [address] PCP - General Family Medicine 08/13/21 Alfonso Tang [facility] [address] [place] [address] Family Practice 08/13/21 Dayanara Bee MD 420 [facility] 75 [place] [address] Pediatrics 12/26/14 Min Lange MD 420 [facility] 75 [place] [address] Neurology 03/30/16 Marlo Madsen MD [address] [place] [address] 508 [place] [address] Cardiology 10/27/16 Mel Buckley, RN Nurse Coordinator Physical Medicine and Rehabilitation 12/02/16 Douglas Cadet MD [address] [place] [address] Gastroenterology 08/13/21 Rosalba Pendleton APRN HELIX COIL WINDER [address] [place] [address] Nurse Practitioner Neurology 09/05/21 Rosalba Pendleton APRN HELIX COIL WINDER [address] [place] [address] Assigned Neuroscience Provider 11/09/21 Douglas Cadet MD [address] [place] [address] 948465 Assigned Gastroenterology Provider 03/14/22 09/03/23 Marlo Madsen MD [address] [place] [address] 508 [place] [address] Assigned Heart and Vascular Provider 03/14/22 Abby Vasquez MD [address] [place] [address] 281515 Gastroenterology 07/16/22 Abby Vasquez MD [address] [place] [address] [phone] Assigned PCP 09/26/22 documented as of this encounter
--- OUTSIDE RECORDS SUMMARY | 2023-09-27 15:46 | XMS_ITS | Encounter Summary ---
Author Name Unknown Organization [place] Address [address] [facility] [place] [address] Care Team Providers Care Marketing Production Coordinator Name Role Phone Monty Musa MD Primary Care Provider [phone] Alfonso Tang Unavailable Unavailable Dayanara Bee MD Unavailable [phone] Min Lange MD Unavailable Unavailable Marlo Madsen MD Unavailable [phone] Mel Buckley RN Unavailable [phone] Douglas Cadet MD Unavailable [phone] Rosalba Pendleton APRN SURGICAL CLINICAL REVIEWER Unavaila ble Rosalba Pendleton APRN SURGICAL CLINICAL REVIEWER Unavaila ble Douglas Cadet MD Unavailable [phone] Marlo Madsen MD Unavailable [phone] Abby Vasquez MD Unavailable Abby Vasquez MD Unavailable Encounter Details Date Type Department Care Team (Late st Contact Info) Description 06/28/2023 [facility] Gastroenterology Clinic [place] [address] [facility] [address] 4th [place] [address] Vivian Carter Social History Tobacco Use Types Packs/Day Years [...] Sex Assigned at Female 10/31/2021 7:59 AM PAINTER MAINTENANCE Gender Identity Female 10/31/2021 7:59 AM PAINTER MAINTENANCE Sexual Orientation Straight 10/31/2021 7: 59 AM PAINTER MAINTENANCE documented as of this encounter Miscellaneous Notes * Telephone Encounter - Vivian Carter - 07/05/2023 1:57 PM CDT Called to remind patient of their upcoming appointment with our GI clinic, on WedJul 14 at 10:00am with Dr. Abby Vasquez. This appointment is scheduled as an in-person appt. Please arrive 15 minutes early to check in for your appointment. , if your appointment is virtual (video or telephone)you need to be in [place] for the visit. To reschedule or cancel patient to call [phone]. Vivian Carter documented in this encounter Plan of Treatment Upcoming Encounters Date Type Department Care Team (Late st Contact Info) Description 09/29/2023 9:30 AM PAINTER MAINTENANCE Ancillary Procedure [facility] [address] [place] [phone] Zain Quintana MD 500 [place] [address] 10/01/2023 9:30 AM PAINTER MAINTENANCE Ancillary Procedure [facility] [address] [place] [phone] Zain Quintana MD 500 [place] [address] 10/18/2023 PRE VISIT [facility] Colon and Rectal Surgery Clinic [address] [phone] Airam Hodges PA-C [address] [place] [address] Previsit 10/21/2023 11:30 AM PAINTER MAINTENANCE Therapy Visit [address] [address] Zain Quintana MD [address] [place] [address] 767105 Lainey Simon, PT [address] [place] [address] 10/26/2023 1:00 PM PAINTER MAINTENANCE Virtual Visit [facility] Gastroenterology Clinic [address] [phone] Latricia Pettit PA-C [address] [place] [address] 10/28/2023 10:50 AM PAINTER MAINTENANCE Therapy Visit [address] [address] Zain Quintana MD [address] [place] [address] Lainey Simon, PT [address] [place] [address] 11/04/2023 10:50 AM PAINTER MAINTENANCE Therapy Visit [address] [address] Zain Quintana MD [address] [place] [address] 322915 [place] [address] [place] [address] 11/24/2023 10:40 AM CDT Office Visit [facility] Gastroenterology Clinic [address] 4th [place] [phone] Abby Vasquez MD [address] [place] [address] 931955 01/13/2024 10:00 AM CDT Virtual Visit [facility] Neurology Clinic [address] [phone] Rosalba Pendleton, MAXIMILIANO [address] [id number] [address] 01/20/2024 8:00 PM CDT Therapy Visit [facility] Sleep [address] [address] 03/14/2024 10:30 AM CDT Office Visit [facility] Sleep [address] [address] Abhishek Acevedo PA-C [address] [id number] 03/21/2024 11:30 AM CDT Office Visit [facility] Colon and Rectal Surgery Clinic [address] [phone] Zain Quintana MD [address] [place] [address] 300115 documented as of this encounter Visit Diagnoses Not on filedocumented in this encounter Additional Health Concerns Assessment Noted Time PHQ-9 Depression Total Score: 11 022 11:52 AM CDT documented as of this encounter Care Teams Marketing Production Coordinator Relationship Specialty Start Date End Date Monty Musa MD [facility] [address] [place] [address] PCP - General Family Medicine 08/13/21 Alfonso Tang [facility] [address] [place] [address] Family Practice 08/13/21 Dayanara Bee MD 420 [facility] 75 [place], [place] 835[address] Pediatrics 12/26/14 Min Lange MD 420 [facility] 75 [place] [address] Neurology 03/30/16 Marlo Madsen MD 420 [facility] 508 [place] [address] Cardiology 10/27/16 Mel Buckley, RN Nurse Coordinator Physical Medicine and Rehabilitation 12/02/16 Douglas Cadet MD [address] [place] [address] 674785 Gastroenterology 08/13/21 Rosalba Pendleton APRN SURGICAL CLINICAL REVIEWER [address] [place], [place] [address] Nurse Practitioner Neurology 09/05/21 Rosalba Pendleton APRN SURGICAL CLINICAL REVIEWER [address] [phone] Assigned Neuroscience Provider 11/09/21 Douglas Cadet MD [address] [place] [address] Assigned Gastroenterology Provider 03/14/22 09/03/23 Marlo Madsen MD [address] [place] [address] 508 [place] [address] Assigned Heart and Vascular Provider 03/14/22 Abby Vasquez MD [address] [place] [address] 848175 Gastroenterology 07/16/22 Abby Vasquez MD [address] [place] [address] 655885 Assigned PCP 09/26/22 documented as of this encounter
--- OUTSIDE RECORDS SUMMARY | 2023-09-27 15:46 | XMS_ITS | Encounter Summary ---
Author Name Unknown Organization [place] Address [address] [facility] [place] [address] Care Team Providers Care Slab Conditioner Supervisor Name Role Phone Monty Musa MD Primary Care Provider [phone] Alfonso Tang Unavailable Unavailable Dayanara Bee MD Unavailable [phone] Min Lange MD Unavailable Unavailable Marlo Madsen MD Unavailable [phone] Mel Buckley RN Unavailable [phone] Douglas Cadet MD Unavailable [phone] Rosalba Pendleton APRN STRAP MACHINE OPERATOR Unavaila ble Rosalba Pendleton APRN STRAP MACHINE OPERATOR Unavaila ble Douglas Cadet MD Unavailable [phone] Marlo Madsen MD Unavailable [phone] Abby Vasquez MD Unavailable Abby Vasquez MD Unavailable Airam Hodges PA-C Unavailable [phone] Encounter Details Date Type Department Care Team (Late st Contact Info) Description 07/10/2023 [facility] Medical [facility] Gastroenterology Clinic [place] [address] [phone] Abby Vasquez MD 909 [place], [place] 506735 Social History Tobacco Use Types Packs/Day Years [...] Sex Assigned at Female 10/31/2021 7:59 AM BANQUET WAITER/WAITRESS Gender Identity Female 10/31/2021 7:59 AM BANQUET WAITER/WAITRESS Sexual Orientation Straight 10/31/2021 7: 59 AM BANQUET WAITER/WAITRESS documented as of this encounter Plan of Treatment Upcoming Encounters Date Type Department Care Team (Late st Contact Info) Description 09/29/2023 9:30 AM BANQUET WAITER/WAITRESS Ancillary Procedure [facility] [address] [facility] [address] [place] [phone] Zain Quintana MD 500 [place], [place] 530135 10/01/2023 9:30 AM BANQUET WAITER/WAITRESS Ancillary Procedure [facility] [address] [facility] [address] [place] [phone] Zain Quintana MD 500 [place], [place] 7965[address] 10/18/2023 PRE VISIT [facility] Colon and Rectal Surgery Clinic [place] [address] [address] Airam Hodges PA-C 500 [place], [place] 635045 Previsit 10/21/2023 11:30 AM BANQUET WAITER/WAITRESS Therapy Visit [facility] Rehabilitation [address] [address] Zain Quintana MD [address] [place] [address] Lainey Simon, JAY [address] [place] [address] 10/26/2023 1:00 PM BANQUET WAITER/WAITRESS Virtual Visit [facility] Gastroenterology [address] [phone] Latricia Pettit PA-C [address] [place] [address] 10/28/2023 10:50 AM BANQUET WAITER/WAITRESS Therapy Visit [address] [address] Zain Quintana MD [address] [place] [address] Lainey Simon PT [address] [place] [address] 11/04/2023 10:50 AM BANQUET WAITER/WAITRESS Therapy Visit [address] [address] Zain Quintana MD [address] [place] [address] Lainey Simon PT [address] [place] [address] 11/24/2023 10:40 AM CDT Office Visit [facility] Gastroenterology Clinic [address] [phone] Abby Vasquez MD [address] [place] [address] 01/13/2024 10:00 AM CDT Virtual Visit [facility] Neurology Clinic [address] 3rd [place] [phone] Rosalba Pendleton, MAXIMILIANO STRAP MACHINE OPERATOR [address] [place] [address] [id number] [place] [address] 01/20/2024 8:00 PM CDT Therapy Visit [facility] Sleep [address] [phone] 03/14/2024 10:30 AM CDT Office Visit [address] [phone] Abhishek Acevedo PA-C 6347 [facility] 103 [place] [address] 03/21/2024 11:30 AM CDT Office Visit [facility] Colon and Rectal Surgery Clinic [address] 4th [place] [phone] Zain Quintana MD [address] [place] [address] [phone] documented as of this encounter Visit Diagnoses Not on filedocumented in this encounter Additional Health Concerns Assessment Noted Time PHQ-9 Depression Total Score: 11 022 11:52 AM CDT documented as of this encounter Care Teams Slab Conditioner Supervisor Relationship Specialty Start Date End Date Monty Musa MD [facility] [address] [place] [address] PCP - General Family Medicine 08/13/21 Alfonso Tang [facility] [address] [place] [address] [facility] 08/13/21 Dayanara Bee MD 420 [facility] 75 [place] [address] Pediatrics 12/26/14 Min Lange MD [address] [address] Neurology 03/30/16 Marlo Madsen MD [address] [place] [address] 069675 Cardiology 10/27/16 Mel Buckley, RN Nurse Coordinator Physical Medicine and Rehabilitation 12/02/16 Douglas Cadet MD 500 [place] [address] Gastroenterology 08/13/21 Rosalba Pendleton APRN STRAP MACHINE OPERATOR [address] [place] [address] 236865 Nurse Practitioner Neurology 09/05/21 Rosalba Pendleton APRN STRAP MACHINE OPERATOR [address] [place] [address] Assigned Neuroscience Provider 11/09/21 Douglas Cadet MD 500 [place] [address] Assigned Gastroenterology Provider 03/14/22 09/03/23 Marlo Madsen MD [address] [place] [address] Assigned Heart and Vascular Provider 03/14/22 Abby Vasquez MD [address] [place] [address] Gastroenterology 07/16/22 Abby Vasquez MD [address] [place] [address] Assigned PCP 09/26/22 Airam Hodges PA-C [address] [place] [address] 176225 Physician Healthcare Analyst Surgery 07/19/23 documented as of this encounter
--- OUTSIDE RECORDS SUMMARY | 2023-09-27 15:46 | XMS_ITS | Encounter Summary ---
Author Name Unknown Organization [place] Address [address] [facility] [place] [address] Care Team Providers Care Pleat Patternmaker Name Role Phone Monty Musa MD Primary Care Provider [phone] Alfonso Tang Unavailable Unavailable Dayanara Bee MD Unavailable [phone] Min Lange MD Unavailable Unavailable Marlo Madsen MD Unavailable [phone] Mel Buckley RN Unavailable [phone] Douglas Cadet MD Unavailable [phone] Rosalba Pendleton APRN AUTOMATIC DIE CUTTING MACHINE OPERATOR Unavaila ble Rosalba Pendleton APRN AUTOMATIC DIE CUTTING MACHINE OPERATOR Unavaila ble Douglas Cadet MD Unavailable [phone] Marlo Madsen MD Unavailable [phone] Abby Vasquez MD Unavailable Abby Vasquez MD Unavailable Reason for Visit * Reason Comments Medication Refill Encounter Details Date Type Department Care Team (Late st Contact Info) Description 05/15/2023 [facility] Gastroenterology [facility] [place] 909 [facility] [address] 4th [place] [phone] Abby Vasquez MD 909 [place], [place] 802395 Medication Refill Social History Tobacco Use Types Packs/Day Years Used Date Smoking Tobacco: Never Smokeless Tobacco: Never Alcohol Use Standard Drinks/Week Comments No 0 (1 standard drink = 0.6 oz pur e alcohol) PHQ-2 Answer Date Recorded PHQ-2 Score 2 04/02/2023 Sex and Gender Information Value Date Recorded Sex Assigned at Female 10/31/2021 7:59 AM RAIL DOWELING MACHINE OPERATOR Gender Identity Female 10/31/2021 7:59 AM RAIL DOWELING MACHINE OPERATOR Sexual Orientation Straight 10/31/2021 7: 59 AM RAIL DOWELING MACHINE OPERATOR COVID-19 Exposure Response Date Recorded In the last 10 days, have yo u been in contact with someone who was confirmed or suspected to have Coronavirus/COVID-19? Unable to assess 04/27/2023 10:12 AM CDT documented as of this encounter Miscellaneous Notes * Telephone Encounter - Teresa Colon RN - 05/19/2023 3:00 PM CDT 04/23/2023 [facility] Gastroenterology [facility] [place] Latricia Pettit PA-C Gastroenterology documented in this encounter Plan of Treatment Upcoming Encounters Date Type Department Care Team (Late st Contact Info) Description 09/29/2023 9:30 AM RAIL DOWELING MACHINE OPERATOR Ancillary Procedure [facility] [address] [place] [phone] Zain Quintana MD 500 [place], [place] 533235 10/01/2023 9:30 AM RAIL DOWELING MACHINE OPERATOR Ancillary Procedure [facility] [address] [place] [phone] Zain Quintana MD 500 [place], [place] [phone] 10/18/2023 PRE VISIT [facility] Colon [facility]al Surgery Clinic [address] [phone] Airam Hodges PA-C [address] [place] [address] Previsit 10/21/2023 11:30 AM RAIL DOWELING MACHINE OPERATOR Therapy Visit [address] [address] Zain Quintana MD [address] [place] [address] 398755 Lainey Simon, PT [address] [place] [address] 10/26/2023 1:00 PM RAIL DOWELING MACHINE OPERATOR Virtual Visit [facility] Gastroenterology Clinic [address] [phone] Latricia Pettit PA-C [address] [place] [address] 10/28/2023 10:50 AM RAIL DOWELING MACHINE OPERATOR Therapy Visit [address] [address] Zain Quintana MD [address] [place] [address] Lainey Simon, PT [address] [place] [address] 11/04/2023 10:50 AM RAIL DOWELING MACHINE OPERATOR Therapy Visit [address] [address] Zain Quintana MD 500 [place], [place] 0[address]45 [place] [address] [place] [address] 11/24/2023 10:40 AM CDT Office Visit [facility] Gastro[facility]ology Clinic [address] 4th [place] [phone] Abby Vasquez MD [address] [place] [address] 458545 01/13/2024 10:00 AM CDT Virtual Visit [facility] Neurology Clinic [address] 3rd [place] [phone] Rosalba Pendleton APRN [address] [id number] [place], [place] [address] 01/20/2024 8:00 PM CDT Therapy Visit [facility] Sleep [address] [phone] 03/14/2024 10:30 AM CDT Office Visit [facility] Sleep [address] [phone] Abhishek Acevedo PA-C [address] [id number] 03/21/2024 11:30 AM CDT Office Visit [facility]al [facility] Clinic [address] [phone] Zain Quintana MD [address] [place] [address] 856365 documented as of this encounter Visit Diagnoses Diagnosis Irritable bowel syndrome with constipation Irritable bowel syndrome documented in this encounter Additional Health Concerns Assessment Noted Time PHQ-9 Depression Total Score: 11 022 11:52 AM CDT documented as of this encounter Care Teams Pleat Patternmaker Relationship Specialty Start Date End Date Monty Musa MD [facility] [address] [place] [address] PCP - General Family Medicine 08/13/21 Alfonso Tang [facility] [address] [place] [address] Family Practice 08/13/21 Dayanara Bee MD [address] [place] [address] 75 [place] [address] Pediatrics 12/26/14 Min Lange MD [address] [place] [address] 75 [place] [address] Neurology 03/30/16 Marlo Madsen MD [address] [place] [address] 508 [place] [address] Cardiology 10/27/16 Mel Buckley, RN Nurse Coordinator Physical Medicine and Rehabilitation 12/02/16 Douglas Cadet MD [address] [place] [address] Gastroenterology 08/13/21 Rosalba Pendleton APRN AUTOMATIC DIE CUTTING MACHINE OPERATOR [address] [place] [address] Nurse Practitioner Neurology 09/05/21 Rosalba Pendleton APRN AUTOMATIC DIE CUTTING MACHINE OPERATOR [address] [place] [address] Assigned Neuroscience Provider 11/09/21 Douglas Cadet MD [address] [place] [address] Assigned Gastroenterology Provider 03/14/22 09/03/23 Marlo Madsen MD [address] [place] [address] 508 [place] [address] Assigned Heart and Vascular Provider 03/14/22 Abby Vasquez MD [address] [place] [address] Gastroenterology 07/16/22 Abby Vasquez MD [address] [place] [address] Assigned PCP 09/26/22 documented as of this encounter
--- OUTSIDE RECORDS SUMMARY | 2023-09-27 15:46 | XMS_ITS | Encounter Summary ---
Author Name Unknown Organization [place] Address [address] [facility] [place] [address] Care Team Providers Care Reference Investigator Name Role Phone Monty Musa MD Primary Care Provider [phone] Alfonso Tang Unavailable Unavailable Dayanara Bee MD Unavailable [phone] Min Lange MD Unavailable Unavailable Marlo Madsen MD Unavailable [phone] Mel Buckley RN Unavailable [phone] Douglas Cadet MD Unavailable [phone] Rosalba Pendleton APRN CLASSICS PROFESSOR Unavaila ble Rosalba Pendleton APRN CLASSICS PROFESSOR Unavaila ble Douglas Cadet MD Unavailable [phone] Marlo Madsen MD Unavailable [phone] Abby Vasquez MD Unavailable Abby Vasquez MD Unavailable Reason for Visit * Reason Comments Refill Request fludrocortisone (SOHA RINEF) 0.1 MG tablet 180 tablet 3 05/28/2022 Encounter Details Date Type Department Care Team (Late st Contact Info) Description 06/17/2023 [facility] Heart [facility] 909 [place] [phone] Marlo Madsen MD 420 [facility] 508 [place], [place] 534215 Refill Request (fludrocortisone (FLORINEF) 0.1 MG tablet 180 tablet 3 05/28/2022) Social History Tobacco Use Types Packs/Day Years [...] Sex Assigned at Female 10/31/2021 7:59 AM BOBBIN PRESSER Gender Identity Female 10/31/2021 7:59 AM BOBBIN PRESSER Sexual Orientation Straight 10/31/2021 7: 59 AM BOBBIN PRESSER documented as of this encounter Miscellaneous Notes * Telephone Encounter - Lucinda Sandoval RN - 06/18/2023 3:10 PM CDT fludrocortisone (FLORINEF) 0.1 MG tablet 180 tablet 3 05/28/2022 Last Office Visit: 04/27/23 Future Office visit: none Routing refill request to provider for review/approval because: Drug not on the cardiology refill protocol Lucinda Sandoval RN documented in this encounter Plan of Treatment Upcoming Encounters Date Type Department Care Team (Late st Contact Info) Description 09/29/2023 9:30 AM BOBBIN PRESSER Ancillary Procedure [facility] [address] [place] [address] Zain Quintana MD [address] [place] [address] 10/01/2023 9:30 AM BOBBIN PRESSER Ancillary Procedure [facility] [address] [place] [address] Zain Quintana MD 500 [place] [address] 10/18/2023 PRE VISIT [facility] Colon and Rectal Surgery Clinic [address] [phone] Airam Hodges PA-C 500 [place] [address] Previsit 10/21/2023 11:30 AM BOBBIN PRESSER Therapy Visit [address] [address] Zain Quintana MD 500 [place], [place] 66[address] Lainey Simon, PT [address] [place] [address] 10/26/2023 1:00 PM BOBBIN PRESSER Virtual Visit [facility] Gastroenterology Clinic [address] [phone] Latricia Pettit PA-C 909 [place] [address] 10/28/2023 10:50 AM BOBBIN PRESSER Therapy Visit [address] [address] Zain Quintana MD [address] [place] [address] 135335 Lainey Simon, PT [address] [place] [address] 11/04/2023 10:50 AM BOBBIN PRESSER Therapy Visit [facility] Rehabilitation Services [facility] [address] [facility] 300 [place] [address] Zain Quintana MD [address] [place] [address] Lainey Simon, JAY [address] [place] [address] 11/24/2023 10:40 AM CDT Office Visit [facility] Gastroenterology Clinic [address]th [place] [phone] Abby Vasquez MD [address] [place] [address] 01/13/2024 10:00 AM CDT Virtual Visit [facility] Neurology Clinic [address] 3rd [place] [phone] Rosalba Pendleton, MAXIMILIANO [address] [id number] [place], [place] [address] 01/20/2024 8:00 PM CDT Therapy Visit [facility] Sleep [address] [phone] 03/14/2024 10:30 AM CDT Office Visit [facility] Sleep [address] [address] Abhishek Acevedo PA-C [address] [address] 03/21/2024 11:30 AM CDT Office Visit [facility] Colon and Rectal Surgery Clinic [address] [place] [address] Zain Quintana MD 500 [place] [address] documented as of this encounter Visit Diagnoses Diagnosis Vasovagal syncope Syncope and collapse documented in this encounter Additional Health Concerns Assessment Noted Time PHQ-9 Depression Total Score: 11 05/28/ 022 11:52 AM CDT documented as of this encounter Care Teams Reference Investigator Relationship Specialty Start Date End Date Monty Musa MD [facility] [address] [place] [address] PCP - General Family Medicine 08/13/21 Alfonso Tang [facility] [address] [place] [address] [facility] 08/13/21 Dayanara Bee MD 420 [facility] 75 [place] [address] Pediatrics 12/26/14 Min Lange MD 420 [facility] 75 [place] [address] Neurology 03/30/16 Marlo Madsen MD 420 [facility] 508 [place] [address] Cardiology 10/27/16 Mel Buckley, RN Nurse Coordinator Physical Medicine and Rehabilitation 12/02/16 Douglas Cadet MD 500 [place], [place] 7812[address] Gastroenterology 08/13/21 Rosalba Pendleton APRN CLASSICS PROFESSOR [address] [place], [place] [address] [address] Nurse Practitioner Neurology 09/05/21 Rosalba Pendleton APRN CLASSICS PROFESSOR [address] [place] [address] [id number] [place], [place] 891105 Assigned Neuroscience Provider 11/09/21 Douglas Cadet MD [address] [place] [address] 174365 Assigned Gastroenterology Provider 03/14/22 09/03/23 Marlo Madsen MD [address] [place] [address] 508 [place], [place] 215185 Assigned Heart and Vascular Provider 03/14/22 Abby Vasquez MD [address] [place] [address] 379305 Gastroenterology 07/16/22 Abby Vasquez MD [address] [place] [address] 395955 Assigned PCP 09/26/22 documented as of this encounter
--- OUTSIDE RECORDS SUMMARY | 2023-09-27 15:46 | XMS_ITS | Encounter Summary ---
Author Name Unknown Organization [place] Address [address] [facility] [place] [address] Care Team Providers Care Welfare Service Aide Name Role Phone Monty Musa MD Primary Care Provider [phone] Alfonso Tang Unavailable Unavailable Dayanara Bee MD Unavailable [phone] Min Lange MD Unavailable Unavailable Marlo Madsen MD Unavailable [phone] Mel Buckley RN Unavailable [phone] Douglas Cadet MD Unavailable [phone] Rosalba Pendleton APRN REGISTERED ASSOCIATE Unavaila ble Rosalba Pendleton APRN REGISTERED ASSOCIATE Unavaila ble Douglas Cadet MD Unavailable [phone] Marlo Madsen MD Unavailable [phone] Abby Vasquez MD Unavailable Abby Vasquez MD Unavailable Encounter Details Date Type Department Care Team (Latest Contact Info) Description 07/07/2023 Travel Social History Tobacco Use Types Packs/Day [...] Sex Assigned at Female 10/31/2021 7:59 AM BOILER WATER TESTER Gender Identity Female 10/31/2021 7:59 AM BOILER WATER TESTER Sexual Orientation Straight 10/31/2021 7: 59 AM BOILER WATER TESTER documented as of this encounter Plan of Treatment Upcoming Encounters Date Type Department Care Team (Late st Contact Info) Description 09/29/2023 9:30 AM BOILER WATER TESTER Ancillary Procedure [facility] [address] [facility] [address] [place] [phone] Zain Quintana MD 500 [place], [place] [phone] 10/01/2023 9:30 AM BOILER WATER TESTER Ancillary Procedure [facility] [address] [facility] [address] [place] [phone] Zain Quintana MD 500 [place], [place] [address] 10/18/2023 PRE VISIT [facility] [place] [address] [facility] [address] 4th [place] [phone] Airam Hodges PA-C 500 [place], [place] [address] Previsit 10/21/2023 11:30 AM BOILER WATER TESTER Therapy Visit [facility] Rehabilitation Services [facility] [address] [facility] [address] [place] [address] Zain Quintana MD 500 [place], [place] 89[address] [place] [address] [place] [address] 10/26/2023 1:00 PM BOILER WATER TESTER Virtual Visit [facility] Gastroenterology [address] [phone] Latricia Petitt PA-C [address] [place] [address] 10/28/2023 10:50 AM BOILER WATER TESTER Therapy Visit [address] [address] Zain Quintana MD [address] [place] [address] 567105 Lainey Simon, JAY [address] [place] [address] 11/04/2023 10:50 AM BOILER WATER TESTER Therapy Visit [address] [address] Zain Quintana MD [address] [place] [address] 047195 Lainey Simon, JAY [address] [place] [address] 11/24/2023 10:40 AM CDT Office Visit [facility] Gastroenterology [address] [phone] Abby Vasquez MD [address] [place] [address] 026865 01/13/2024 10:00 AM CDT Virtual Visit [facility] Neurology [address] [phone] Rosalba Pendleton, SANDWICH ARTIST REGISTERED ASSOCIATE [address] [facility] [id number] [place] [address] 01/20/2024 8:00 PM CDT Therapy Visit [facility] Sleep [facility] [address] [place] [phone] 03/14/2024 10:30 AM CDT Office Visit [facility] Sleep [facility] 6[address] [facility] 103 [place] [phone] Abhishek Acevedo PA-C [address] [id number] 03/21/2024 11:30 AM CDT Office Visit [facility] [address] 4th [place] [phone] Zain Quintana MD [address] [place] [address] [phone] documented as of this encounter Visit Diagnoses Not on filedocumented in this encounter Additional Health Concerns Assessment Noted Time PHQ-9 Depression Total Score: 11 022 11:52 AM CDT documented as of this encounter Care Teams Welfare Service Aide Relationship Specialty Start Date End Date Monty Musa MD [facility] [address] [place] [address] PCP - General Family Medicine 08/13/21 Alfonso Tang [facility] [address] [place] [address] Family Practice 08/13/21 Dayanara Bee MD [address] [place] [address] 75 [place] [address] Pediatrics 12/26/14 Min Lange MD [address] [facility] 75 [place] [address] Neurology 03/30/16 Marlo Madsen MD [address] [address] Cardiology 10/27/16 Mel Buckley, RN Nurse Coordinator Physical Medicine and Rehabilitation 12/02/16 Douglas Cadet MD 500 [place] [address] Gastroenterology 08/13/21 Rosalba Pendleton APRN REGISTERED ASSOCIATE [address] [place] [address] [phone] Nurse Practitioner Neurology 09/05/21 Rosalba Pendleton APRN REGISTERED ASSOCIATE [address] [place] [address] [phone] Assigned Neuroscience Provider 11/09/21 Douglas Cadet MD 500 [place] [address] Assigned Gastroenterology Provider 03/14/22 09/03/23 Marlo Madsen MD [address] [address] Assigned Heart and Vascular Provider 03/14/22 Abby Vasquez MD [address] [place] [address] Gastroenterology 07/16/22 Abby Vasquez MD 9 [place] [address] Assigned PCP 09/26/22 documented as of this encounter
--- OUTSIDE RECORDS SUMMARY | 2023-09-27 15:46 | XMS_ITS | Encounter Summary ---
Author Name Unknown Organization [place] Address [address] [facility] [place] [address] Care Team Providers Care Tare Worker Name Role Phone Monty Musa MD Primary Care Provider [phone] Alfonso Tang Unavailable Unavailable Dayanara Bee MD Unavailable [phone] Min Lange MD Unavailable Unavailable Marlo Madsen MD Unavailable [phone] Mel Buckley RN Unavailable [phone] Douglas Cadet MD Unavailable [phone] Rosalba Pendleton APRN RISK SPECIALIST Unavaila ble Rosalba Pendleton APRN RISK SPECIALIST Unavaila ble Douglas Cadet MD Unavailable [phone] Marlo Madsen MD Unavailable [phone] Abby Vasquez MD Unavailable Abby Vasquez MD Unavailable Reason for Visit * Reason Onset Date Comments Appointment 05/26/2023 Reschedule 07/14 Appt Time Encounter Details Date Type Department Care Team (Late st Contact Info) Description 05/26/2023 [facility] Gastroenterology Clinic [address] [place] [address] Abby Vasquez MD [address] [place] [address] [phone] Appointment (Reschedule 07/14 Appt Time) Social History Tobacco Use Types Packs/Day Years Used Date Smoking Tobacco: Never Smokeless Tobacco: Never Alcohol Use Standard Drinks/Week Comments No 0 (1 standard drink = 0.6 oz pur e alcohol) PHQ-2 Answer Date Recorded PHQ-2 Score 2 04/02/2023 Sex and Gender Information Value Date Recorded Sex Assigned at Female 10/31/2021 7:59 AM HAM PASSER Gender Identity Female 10/31/2021 7:59 AM HAM PASSER Sexual Orientation Straight 10/31/2021 7: 59 AM HAM PASSER COVID-19 Exposure Response Date Recorded In the last 10 days, have yo u been in contact with someone who was confirmed or suspected to have Coronavirus/COVID-19? Unable to assess 04/27/2023 10:12 AM CDT documented as of this encounter Miscellaneous Notes * Telephone Encounter - Benjamin Quevedo - 05/26/2023 9:34 AM CDT [facility], sent mychart to reschedule the following appointment: Appt on 07/14/[address] Vasquez due to the provider already being booked at the scheduled time @ 840 am. Reschedule to 10 am on the same day, slot is held. Left K pod # documented in this encounter Plan of Treatment Upcoming Encounters Date Type Department Care Team (Late st Contact Info) Description 09/29/2023 9:30 AM HAM PASSER Ancillary Procedure [facility] [address] [place] [address] Zain Quintana MD [address] [place] [address] 10/01/2023 9:30 AM HAM PASSER Ancillary Procedure [facility] [address] [place] [phone] Zain Quintana MD 500 [place], [place] [address] 10/18/2023 PRE VISIT [facility]al Surgery [facility] [address] [phone] Airam Hodges PA-C 500 [place] [address] Previsit 10/21/2023 11:30 AM HAM PASSER Therapy Visit [address] [place] [address] Zain Quintana MD [address] [place] [address] 564145 Lainey Simon, PT [address] [place] [address] [phone] 10/26/2023 1:00 PM HAM PASSER Virtual Visit [facility] Gastroenterology Clinic [address] [phone] Latricia Pettit PA-C [address] [place] [address] 10/28/2023 10:50 AM HAM PASSER Therapy Visit [address] [place] [address] Zain Quintana MD [address] [place] [address] 197595 Lainey Simon, PT [address] [place] [address] 285707 11/04/2023 10:50 AM HAM PASSER Therapy Visit [facility] Rehabilitation Services [facility] [address] [facility] 300 [place] [address] Zain Quintana MD [address] [place] [address] Lainey Simon, JAY [address] [place], [place] 8[address] 11/24/2023 10:40 AM CDT Office Visit [facility] Gastroenterology Clinic [address] [place] [phone] Abby Vasquez MD [address] [place] [address] 01/13/2024 10:00 AM CDT Virtual Visit [facility] Neurology Clinic [address] 3rd [place] [phone] Rosalba Pendleton APRN [address] [place], [place] [address] 01/20/2024 8:00 PM CDT Therapy Visit [facility] Sleep [address] [phone] 03/14/2024 10:30 AM CDT Office Visit [facility] Sleep [facility] [address] [place] [phone] Abhishek Acevedo PA-C [address] [facility] [address] [place] [address] 03/21/2024 11:30 AM CDT Office Visit [facility] [address] [place] [phone] Zain Quintana MD 500 [place] [address] documented as of this encounter Visit Diagnoses Not on filedocumented in this encounter Additional Health Concerns Assessment Noted Time PHQ-9 Depression Total Score: 11 022 11:52 AM CDT documented as of this encounter Care Teams Tare Worker Relationship Specialty Start Date End Date Monty Musa MD [facility] [address] [place] [address] PCP - General Family Medicine 08/13/21 Alfonso Tang [facility] [address] [place] [address] Family Practice 08/13/21 Dayanara Bee MD 420 [facility] 75 [place] [address] Pediatrics 12/26/14 Min Lange MD 420 [facility] 75 [place] [address] Neurology 03/30/16 Marlo Madsen MD 420 [facility] [address] [place] [address] Cardiology 10/27/16 Mel Buckley, RN Nurse Coordinator Physical Medicine and Rehabilitation 12/02/16 Douglas Cadet MD 500 [place] [address] Gastroenterology 08/13/21 Rosalba Pendleton APRN RISK SPECIALIST [address] [place] [id number] [address] Nurse Practitioner Neurology 09/05/21 Rosalba Pendleton APRN RISK SPECIALIST [address] [place] [address] [id number] [place], [place] 89[address] Assigned Neuroscience Provider 11/09/21 Douglas Cadet MD [address] [place] [address] [id number] Assigned Gastroenterology Provider 03/14/22 09/03/23 Marlo Madsen MD [address] [place] [address] [address] [place] [address] Assigned Heart and Vascular Provider 03/14/22 Abby Vasquez MD [address] [place] [address] Gastroenterology 07/16/22 Abby Vasquez MD [address] [place] [address] 018805 Assigned PCP 09/26/22 documented as of this encounter
--- OUTSIDE RECORDS SUMMARY | 2023-09-27 15:46 | XMS_ITS | Encounter Summary ---
Author Name Unknown Organization [facility] Address [address] [facility] [place] [address] Care Team Providers Care Bi Application Developer Name Role Phone Monty Musa MD Primary Care Provider [phone] Alfonso Tang Unavailable Unavailable Dayanara Bee MD Unavailable [phone] Min Lange MD Unavailable Unavailable Marlo Madsen MD Unavailable [phone] Mel Buckley RN Unavailable [phone] Douglas Cadet MD Unavailable [phone] Rosalba Pendleton APRN OPTOMETRY TEACHER Unav[employer]a ble Rosalba Pendleton APRN OPTOMETRY TEACHER Unavaila ble Douglas Cadet MD Unavailable [phone] Marlo Madsen MD Unavailable [phone] Abby Vasquez MD Unavailable Abby Vasquez MD Unavailable Reason for Referral * Consultation (Routine: Next available opening) - Pending Review Specialty Diagnoses / Procedures Referred By Contgeovany t Referred To Contact Colon and Rectal Surgery Diagnoses Constipation, unspecified constipation type Abby Vasquez MD [address] [place] [address] Referral ID Status Reason Start Date Expiration Date V isits Requested Visits Authorized [id number] Pending Review 07/14/2023 07/13/2024 1 1 Question Answer Reason for Referral: Other My Clinical Question Is: constipation, failing medical management Special Concerns: None Scheduling Instructions: [employer] will call you to coordinate care as prescribed your provider. If you don? t hear from a dairy supplies sales representative within 2 business days, please call . Comments Please be aware that coverage of these services is subject to the terms and limitations of your health insurance plan. Call member services at your health plan with any benefit or coverage questions. [employer] will call you to coordinate care as prescribed your provider. If you don? t hear from a dairy supplies sales representative within 2 business days, please call . Reason for Visit * Reason Comments Follow Up Encounter Details Date Type Department Care Team (Latest Contact Info) Description 07/14/2023 10:00 AM CDT Office Visit [facility] [address] [phone] Abby Vasquez MD [address] [place] [id number] Irritable bowel syndrome with constipation (Primary Dx); Constipation, unspecified constipation type; Pelvic floor dysfunction Social History Tobacco Use Types Packs/Day Years [...] Sex Assigned at Female 10/31/2021 7:59 AM SUPERVISOR RIDES Gender Identity Female 10/31/2021 7:59 AM SUPERVISOR RIDES Sexual Orientation Straight 10/31/2021 7: 59 AM SUPERVISOR RIDES documented as of this encounter Last Filed Vital Signs Vital Sign Reading Time Taken Comments Blood Pressure 119/82 07/14/2023 9:57 AM CDT Pulse 75 07/14/2023 9:57 AM CDT Temperature - - Respiratory Rate - - Oxygen Saturation 99% 07/14/2023 9:57 AM CDT Inhaled Oxygen Concentration - - Weight 78.2 kg (172 lb 8 oz) 07/14/2023 9:57 AM CDT Height 167.6 cm (5' 6) 07/14/2023 9:57 AM CDT Body Mass Index 27.84 07/14/2023 9:57 AM CDT documented in this encounter Patient Instructions * Patient Instructions* Abby Vasquez MD - 07/14/2023 10:00 AM CDT Action Plan: - if no BM for 3-4 days --> trial Fleets enemas twice daily or glycerin suppositories twice daily - if no BM for 4-5 days --> trial Miralax cleanout (ok for 4-16 capfuls of Miralax - drinking one glass every 15 minutes or so) - will refer to colorectal surgery to talk about future options - will switch to plecanatide/Trulance - until then, continue Linzess 290 mcg daily, increase magnesium oxide to 1000 mg daily, continue Miralax daily - ok to increase to up to 3 capfuls daily - contact GI clinic once you have Trulance or if you hear from pharmacy about issues filling it - at this time, given symptoms - enact action plan as outlined above - follow-up in GI clinic in 3-6 months If you have any questions, please don't hesitate to contact me through our GI RN Court Deputy, Sheri Edmonds, at . documented in this encounter Progress Notes * Abby Vasquez MD - 07/14/2023 10:00 AM CDT GI CLINIC VISIT CC: follow-up ASSESSMENT/PLAN: #Constipation #Pelvic Floor Dysfunction Chronic constipation with pelvic floor dysfunction s/p biofeedback/PT with limited improvement. Loss of response to Amitiza and now loss of response to Linzess (less frequent BMs, requiring addition of osmotic laxatives but still having days without BMs and presentation to ED). Discussed adjustment of daily regimen as well as aggressive application of action plan as outlined below (noted presence of colonic stool burden on recent CT despite partial bowel cleanout). Will move forward with Trulance (noted pt with hx of depression, may be risk for SI with use of Motegrity). Until then continue Linzess and increase Miralax and mag oxide as below. For action plan we reviewed proper enema administration. Ok to use twice daily as needed. Will add glycerin suppository to plan. Favor treatments from below when feel presence of stool in rectum or having marked nausea. Ok for Miralax prep if failure of these measure or if not having nausea. In thefuture would consider scheduled bowel cleanouts (? Monthly?). For severe symptoms unresponsive to measures in the action plan - would consider outpatient gastrograffin enema in effort to avoid ED/hospitalization. She did inquire as to next steps if she fails available medications and whether surgery would be necessary. She would favor meeting with a colorectal surgeon at this time to understand potential options and what additional testing may be needed before taking such a step. Referral placed. #Colorectal Cancer Screening Due for repeat colonoscopy in 2026. Action Plan: - if no BM for 3-4 days --> trial Fleets enemas twice daily or glycerin suppositories twice daily - if no BM for 4-5 days --> trial Miralax cleanout (ok for 4-16 capfuls of Miralax - drinking one glass every 15 minutes or so) - will refer to colorectal surgery to talk about potential future options - will switch to plecanatide/Trulance - until then, continue Linzess 290 mcg daily, increase magnesium oxide to 1000 mg daily, continue Miralax daily - ok to increase to up to 3 capfuls daily - contact GI clinic once you have Trulance or if you hear from pharmacy about issues filling it --> would plan to not take Linzess, Miralax,and mag oxide once Trulance is started (though osmotic laxatives can always be added back in if needed) - at this time, given symptoms - enact action plan as outlined above - follow-up in GI clinic in 3-6 months It was a pleasure to participate in the care of this patient; please contact us with any further questions. A total of 25 [id number] minutes was spent with this patient, >50% of which was counseling regarding the above delineated issues. An additional 25 minutes was spent on the date of the encounter doing chart review, documentation, and further activities as noted above. Abby Vasquez MD Dressage Instructorgraphic art designer Division of Gastroenterology, Hepatology and Nutrition [facility] HPI: Ms Latricia Hatch is a very pleasant 33 yo female with dysautonomia, frequent migraine HAs, chronic diffuse abdominal pain, constipation, nausea, and prior adenomatous polyp who returns to GI clinic forfollow-up of her constipation and nausea. She was previously seen by Dr. Dawson and Dr. Vasquez prior to moving to [place] in 2017 after getting . She moved back to [place] and was seen by Dr. Cadet in 02/2022 for chronic constipation, abdominal pain and nausea and this engineering writer on 08/19/2022. Her last visit with this engineering writer was 12/09/22 and she was most recently seen by KENDRICK Coto on 04/23/23. For constipation work-up, [facility]. Testing revealed high resting and squeeze pressures on anorectal manometry as well as a blunted tolerable volume on the balloon test. EMG and defecography were both consistent with nonrelaxation of the pelvic floor. Noanatomic issues were identified and she underwent pelvic floor PT; she did not feel this improved things much, perhaps less straining. She has not had a Sitz marker study with understandable reluctance to stop bowels meds for testing. She has had prior colonoscopies (father diagnosed with colon cancer at the age of 49). Colonoscopy at our institution was in 2016 with 2 small hyperplastic polyps re sected. She subsequently had another colonoscopy in [place] which she reports was normal. In early 2021, she had a colonoscopy in [place] with a few small polyps removed - one was normal colon tissue and two were hyperplastic polyps. Recommended follow-up is for 2026 due to family history witha two-day prep. For treatment, she was started on Linzess around 2013 for chronic constipation which improved her constipation and resulted in BMs every other day. In 2016, she moved to [place] and stopped Linzessas she felt her constipation was under good control. She did transition to a gummy fiber supplement. By 2021, she experienced worsening constipation (1 BM every 4-5 days) with associated abdominal pain and nausea. Dr. Cadet planned to restart Linzess which unfortunately was not covered by her insurance. Ultimately, she was started on Amitiza 8mcg BID, as well as 17g Miralax BID. Intermittently, she used Ducolax (which also seems to lose effect recently) and fleet enema for constipation. She found mg citrate helpful but not milk of magnesium. Gastric emptying study 05/04/2022 was normal. Amitiza effect waned and we were able to get her back on Linzess. Initially this led to a large BM every other day or so. She feels with time it's effectiveness is decreasing and Miralax as well as magnesium oxide have been added to her daily regimen. Currently she is taking 290 mcg Linzess with 1 capful Miralax and 500 mg Mag oxide (if she has a BM that day) otherwise 1000 mg Mag oxide. Typically this will lead to three days with BMs, followed by several days with no stool output and increaseddiscomfort and subjective bloating. An action plan was put into place with enemas and partial bowelcleanouts to address increasing symptoms. Unfortunately she had more significant symptoms last week. She had 5 days without a BM and ultimately used a Fleets enema one time (5 minutes on left side, 10 minutes on right side) with no response.She did not try additional enemas. The following day with no stool output she did a half-Miralax prep. This did lead to several loose stools and she felt her abdominal distention markedly improved. The following day - her distention returned with significant pain and cramping. She waited a day and the symptoms remained and she felt she was not able to pass gas and ultimately developed nausea. Shepresented to the ED and got morphine which helped the pain. A CT scan did not reveal any concerningacute pathology - of note stool is seen throughout the colon despite a bowel prep done in the days prior (per my read). She tried eating (juice and crackers) but the pain worsened. She was given Bentyl which helped some. Since discharge she hasn't had a ton of stool output - mostly small, liquid BMs. Pain is a bit better and Bentyl is helping. She has been able to eat more, but is sticking with aBRAT-like diet to minimize symptoms (tolerating things like applesauce). PROBLEM LIST Patient Active Problem List Diagnosis Date Noted Irritable bowel syndrome without diarrhea 04/15/2016 Priority: Medium Syncope 01/25/2014 Priority: Medium Intractable 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 aura 10/05/2013 Priority: Medium Problem list name updated by automated process. 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 Priority: Medium Abdominal pain, generalized 10/05/2013 Priority: Medium PERTINENT MEDICATIONS: Current Outpatient Medications Medication AIMOVIG 140 MG/ML injection clonazePAM (KLONOPIN) 0.5 MG tablet dicyclomine (BENTYL) 10 MG capsule DULoxetine (CYMBALTA) 30 MG capsule fludrocortisone (FLORINEF) 0.1 MG tablet hydrOXYzine (ATARAX) 50 MG tablet linaclotide (LINZESS) 290 MCG capsule Magnesium Oxide -Mg Supplement 500 MG TABS midodrine (PROAMATINE) 5 MG tablet ondansetron (ZOFRAN ODT) 4 MG ODT tab order for DME prochlorperazine (COMPAZINE) 5 MG tablet ZOLMitriptan (ZOMIG-ZMT) 5 MG ODT No current facility-administered medications for this visit. PHYSICAL EXAMINATION: Vitals BP 119/82 Pulse 75 Ht 1.676 m (5' 6) Wt 78.2 kg (172 lb 8 oz) SpO2 99% BMI 27.84 kg/m?? Wt Wt Readings from Last 2 Encounters: 07/14/23 78.2 kg (172 lb 8 oz) 04/27/23 80.3 kg (177 lb) Gen: Pt sitting up in NAD, interactive and cooperative on exam Eyes: sclerae anicteric, no injection ENT: OP clear, MMM Skin: Warm, dry, no jaundice Neuro: alert, oriented, answers questions appropriately PERTINENT STUDIES: Office Visit on 04/03/2023 Component Date Value Ref Range Status Group A Strep antigen 04/03/2023 Negative Negative Final Group A strep by PCR 04/03/2023 Not Detected Not Detected Final SARS CoV2 PCR 04/03/2023 Negative Negative Final documented in this encounter Nursing Notes * Vivian Carter - 07/14/2023 10:00 AM CDT Chief Complaint Patient presents with Follow Up Vitals: 07/14/23 0957 BP: 119/82 Pulse: 75 SpO2: 99% Weight: 78.2 kg (172 lb 8 oz) Height: 1.676 m (5' 6) Body mass index is 27.84 kg/m??. Vivian Carter documented in this encounter Plan of Treatment Upcoming Encounters Date Type Department Care Team (Late st Contact Info) Description 09/29/2023 9:30 AM SUPERVISOR RIDES Ancillary Procedure [address] [place] [phone] Zain Quintana MD [address] [place], [place] [id number] 10/01/2023 9:30 AM SUPERVISOR RIDES Ancillary Procedure [address] [place] [phone] Zain Quintana MD [address] [place], [place] [id number] 10/18/2023 PRE VISIT [facility] [address] [place] [address] Airam Maldonado PA-C [address] [place] [address] Previsit 10/21/2023 11:30 AM SUPERVISOR RIDES Therapy Visit [address] [address] Zain Quintana MD [address] [place] [address] Lainey Simon, PT [address] [place] [address] 10/26/2023 1:00 PM SUPERVISOR RIDES Virtual Visit [facility] [address] [phone] Latricia Pettit PA-C [address] [place] [address] 10/28/2023 10:50 AM SUPERVISOR RIDES Therapy Visit [address] [address] Zain Quintana MD [address] [place] [address] Lainey Simon, PT [address] [place] [address] 11/04/2023 10:50 AM SUPERVISOR RIDES Therapy Visit [address] [address] Zain Quintana MD [address] [place] [address] Lainey Simon, PT [address] [place] [address] 11/24/2023 10:40 AM CDT Office Visit [facility] [address] [phone] Abby Vasquez MD [address] [place] [id number] 01/13/2024 10:00 AM CDT Virtual Visit [facility] Neurology Clinic [address] [phone] Rosalba Pendleton APRN [address] [id number], [place] [id number] 01/20/2024 8:00 PM CDT Therapy Visit [facility] Sleep [address] [phone] 03/14/2024 10:30 AM CDT Office Visit [address] [phone] Abhishek Acevedo PA-C [address] [id number] 03/21/2024 11:30 AM CDT Office Visit [facility] [address] [phone] Zain Quintana MD [address] [place] [address] [id number] Scheduled Referrals Name Type Priority Associated Diagnoses Orde r Schedule Adult Colorectal Surgery Magazine Feeder Referral Referral Routine: Next available opening Constipation, unspecified constipation type Expected: 07/14/2023 (Approximate), Expires: 07/14/2024 documented as of this encounter Visit Diagnoses Diagnosis Irritable bowel syndrome with constipation- Primary Irritable bowel syndrome Constipation, unspecified constipation type Pelvic floor dysfunction Pelvic muscle wasting documented in this encounter Additional Health Concerns Assessment Noted Time PHQ-9 Depression Total Score: 11 022 11:52 AM CDT documented as of this encounter Care Teams Bi Application Developer Relationship Specialty Start Date End Date Monty Musa MD [facility] [address] [place] [address] PCP - General Family Medicine 08/13/21 Alfonso Tang [facility] [address] [place] [address] Family [facility] 08/13/21 Dayanara Bee MD [address] [place] [address] [address] [place] [address] Pediatrics 12/26/14 Min Lange MD [address] [place] [address] [address] [place] [address] Neurology 03/30/16 Marlo Madsen MD [address] [place] [address] [address] [place] [address] Cardiology 10/27/16 Mel Buckley, RN Nurse Coordinator Physical Medicine and Rehabilitation 12/02/16 Douglas Cadet MD [address] [place] [address] Gastroenterology 08/13/21 Rosalba Pendleton APRN OPTOMETRY TEACHER [address] [place] [address] Nurse Practitioner Neurology 09/05/21 Rosalba Pendleton APRN OPTOMETRY TEACHER [address] [place], [place] [id number] [place] [address] Assigned Neuroscience Provider 11/09/21 Douglas Cadet MD [address] [place] [address] Assigned Gastroenterology Provider 03/14/22 09/03/23 Marlo Madsen MD [address] [place] [address] [address] [place] [address] Assigned Heart and Vascular Provider 03/14/22 Abby Vasquez MD [address] [place] [address] Gastroenterology 07/16/22 Abby Vasquez MD [address] [place] [address] Assigned PCP 09/26/22 documented as of this encounter
--- OUTSIDE RECORDS SUMMARY | 2023-09-27 15:47 | XMS_ITS | Encounter Summary ---
Author Name Unknown Organization [place] Address [address] [facility] [address] Care Team Providers Care Health Technical Writer Name Role Phone Monty Musa MD Primary Care Provider [phone] Alfonso Tang Unavailable Unavailable Dayanara Bee MD Unavailable [phone] Min Lange MD Unavailable Unavailable Marlo Madsen MD Unavailable [phone] Mel Buckley RN Unavailable [phone] Douglas Cadet MD Unavailable [phone] Rosalba Pendleton APRN MILKING MACHINE MECHANIC Unavaila ble Rosalba Pendleton APRN MILKING MACHINE MECHANIC Unavaila ble Douglas Cadet MD Unavailable [phone] Marlo Madsen MD Unavailable [phone] Abby Vasquez MD Unavailable Abby Vasquez MD Unavailable Reason for Visit * Reason Comments Follow Up Encounter Details Date Type Department Care Team (Latest Contact Info) Description 04/23/2023 11:30 AM CDT Office Visit [facility] [place] [id number] [place] [address] Abby Vasquez MD [address] [place], [place] [address] Darin Mckeon PA-C [address] [place], [place] [address] Constipation, unspecified constipation type (Primary Dx); Chronic idiopathic constipation; Chronic abdominal pain; Pelvic floor dysfunction Social History Tobacco Use Types Packs/Day Years Used Date Smoking Tobacco: Never Smokeless Tobacco: Never Tobacco Cessation:Counseling Given: Not Answered Alcohol Use Standard Drinks/Week Comments No 0 (1 standard drink = 0.6 oz pur e alcohol) PHQ-2 Answer Date Recorded PHQ-2 Score 2 04/02/2023 Sex and Gender Information Value Date Recorded Sex Assigned at Female 10/31/2021 7:59 AM TENTER Gender Identity Female 10/31/2021 7:59 AM TENTER Sexual Orientation Straight 10/31/2021 7: 59 AM TENTER COVID-19 Exposure Response Date Recorded In the last 10 days, have yo u been in contact with someone who was confirmed or suspected to have Coronavirus/COVID-19? Unable to assess 04/27/2023 10:12 AM CDT documented as of this encounter Last Filed Vital Signs Vital Sign Reading Time Taken Comments Blood Pressure 129/90 04/23/2023 11:29 AM CDT Pulse 78 04/23/2023 11:29 AM CDT Temperature - - Respiratory Rate - - Oxygen Saturation 97% 04/23/2023 11:29 AM CDT Inhaled Oxygen Concentration - - Weight 79.1 kg (174 lb 4.8 oz) 04/23/2023 11:29 AM CDT Height 167.6 cm (5' 6) 04/23/2023 11:29 AM CDT Body Mass Index 28.13 04/23/2023 11:29 AM CDT documented in this encounter Patient Instructions * Patient Instructions* Darin Mckeon PA-C - 04/23/2023 11:30 AM CDT It was a pleasure taking care of you today. I've included a brief summary of our discussion and care plan from today's visit below. Please review this information with your primary care provider. My recommendations are summarized as follows: - Continuing Linzess at 290 mcg daily -Start magnesium oxide 500 mg once nightly, on days where there are missed bowel movements please take an additional tablet prior to bed for a total of 1,000mg. Please do not exceed 2 tablets/day. - If no BM for 4-5 days, use Fleets enema/tap water enema or complete Miralax bowel cleanse. With addition of magnesium oxide please refrain from ilgv-chj-sorjgaj use of magnesium citrate. - Contact GI clinic if you do not have success with above recommendations, and then can consider therapeutic gastrograffin enema To schedule endoscopic procedures you may call: [phone] To schedule radiology (imaging) tests you may call: [phone] To schedule an ENT appointment you may call: [phone] Please call my nurse Kaur ([phone]), Elisa ([phone]) with any questions or concerns. Return to GI Clinic in [address] Neva Vasqeuz to review your progress. Who do I call with any questions after my visit? Please be in touch if there are any further questions that arise following today's visit. There aremultiple ways to contact your gastroenterology care team. During business hours, you may reach a Gastroenterology nurse at [phone] and choose option 3. To schedule or reschedule an appointment, please call [phone]. You can always send a secure message through [email or web address] messages are answered by your nurse or doctor typically within 24 hours. Please allow extra time on weekends and holidays. For urgent/emergent questions after business hours, you may reach the on-call GI Fellow by contacting the [facility] central control room operator at . How will I get the results of any tests ordered? You will receive all of your results. If you have signed up for [employer], any tests ordered at your visit will be available to you after your physician reviews them. Typically this takes 1-2 weeks. Ifthere are urgent results that require a change in your care plan, your physician or nurse will callyou to discuss the next steps. What is GageInhart? [email or web address] is a secure way for you to access all of your healthcare records from the [facility]. It is a web based computer program, so you can sign on to it from any location. It also allows you to send secure messages to your care team. I recommend signing up for [email or web address] access if you have not already done so and are comfortable with using a computer. How to I schedule a follow-up visit? If you did not schedule a follow-up visit today, please call [phone] to schedule a follow-up office visit. If you feel you received exceptional care and are interested in supporting the clinical and research goals of Darin Mckeon PA-C or the Division of Gastroenterology, Hepatology, and Nutrition please contact [email or web address] from the [facility] to discuss opportunities to donate. Sincerely, Darin Mckeon PA-C Division of Gastroenterology, Hepatology, and Nutrition [facility] documented in this encounter Progress Notes * Darin Mckeon PA-C - 04/23/2023 11:30 AM CDT Images from the original note were not included. Gastroenterology Visit for: Darin Hatch 1990 Reason for Visit: chief complaint Referred by: Pedro / [facility] [id number] Patient Care Team: Monty Musa MD as PCP - General (Family Medicine) Dayanara Bee MD as (Pediatrics) Min Lange MD as MD (Neurology) Marlo Madsen MD as MD (Cardiology) Mel Buckley, RN as Nurse Coordinator (Physical Medicine and Rehabilitation) Alfonso Tang (Inactive) (Family Practice) Douglas Cadet MD as MD (Gastroenterology) Rosalba Pendleton APRN CNP as Nurse Practitioner (Neurology) Rosalba Pendleton APRN CNP as Assigned Neuroscience Provider Douglas Caedt MD as Assigned Gastroenterology Provider Marlo Madsen MD as Assigned Heart and Vascular Provider Abby Vasquez MD as MD (Gastroenterology) Abby Vasquez MD as Assigned PCP History of Present Illness: Darin Hatch is a 33 year old female with significant past medical history pertinent for dysautonomia, frequent migraine HAs, chronic diffuse abdominal pain, constipation, nausea, and prior adenomatous polyp who is presenting as a new patient in consultation at the request of Dr. Vasquez with a chief complaint of constipation/irregular bowel habits. Interval History April 24, 2023: Today Darin reports that her bowel patterns are cyclical. Describes having 3 days of large bowel movements most consistent with Anselmo Stool Scale Type 4. She then will have 3-5 days without a bowelmovement. During this period has increased abdominal pains and bloating. Current regimen consistentof Linzess 290mcg, heaping tablet spoon daily and 10g fiber daily. She reports that with the initiation of Linzess she was having bowel movements daily however she now is having less frequent bowel movements. She had a similar experience with Amitiza. Since last OV she has had to take Magnesium Citrate once and this was after 5 days without stoolingafter giving an enema without no relief. Finished pelvic floor therapy with minimal improvement in stool frequency however she does report less straining to facilitate a BM. Denies weight loss, incontinence of feces, steatorrhea, melena, hematochezia and BRBR. Father had colon cancer x2. Diagnosed at 51 and had recurrence at age 53. No family history or GI related malignancy (esophageal, gastric, pancreatic, liver or colon). 12/09/2022 HPI: Ms Darin Hatch is a very pleasant 32 yo female with dysautonomia, frequent migraine HAs, chronic diffuse abdominal pain, constipation, nausea, and prior adenomatous polyp who returns to GI clinic forfollow-up of her constipation and nausea. She was previously seen by Dr. Dawson and Dr. Vasquez prior to moving to [place] in 2016 after getting . She moved back to [place] recently and was seen by Dr. Cadet in 02/2022 for chronic constipation, abdominal pain and nausea and this aligner typewriter on 08/19/2022. Briefly, she was started on Linzess around 2013 for chronic constipation which improved her constipation and resulted in BMs every other day. In 2017, she moved to [place] and stopped Linzess as she felt her constipation was under good control. She did transition to a gummy fiber supplement. In the last year, she has experienced worsening constipation (1 BM every 4-5 days) with associated abdominal pain and nausea. Dr. Cadet planned to restart Linzess which unfortunately was not covered by her insurance. Ultimately, she was started on Amitiza 8mcg BID, as well as 17g Miralax BID. Intermittently, she used Ducolax (which also seems to lose effect recently) and fleet enema for constipation.She finds mg citrate helpful but not milk of magnesium. Gastric emptying study 05/04/2022 was normal. Since our last visit, Amitiza seemed to work for just over a month or so, but it's effect waned therafter. A prior authorization was filed for Linzess. She continued with Miralax daily, but additional efforts with bisacodyl, Fleets's enemas, etc were unhelpful. Ultimately she was able to track downbottles of magnesium citrate and took two which finally led to emptying of her bowels and improved pain and nausea. Linzess was ultimately approved and she obtained it just 10 days go. Since then she's been moving her bowels every other day and the amount is large. She continues with one heaping capful of Miralax daily and increased to 4 fiber gummies daily (per recommendation of the [facility]). She also adds that when she last used an enema she was able to trial the technique of administering while on her left side and rotating her body with some improved output. She was seen at the [facility] earlier this month. Testing revealed high resting and squeeze pressures on anorectal manometry as well as a blunted tolerable volume on the balloon test. EMG and defecography were both consistent with nonrelaxation of the pelvic floor. No anatomic issues wereidentified and she is planned to start pelvic floor PT next week. As previously noted, Ms. Hatch's father was diagnosed with colon cancer at the age of 49. She has had many colonoscopies in the past. Most recent at our institution was in 2016 when revealed 2 small hyperplastic polyps. She subsequently had another colonoscopy in [place] which she reports was normal. In early 2020, she had a colonoscopy in [place] which was reported to be negative for adenoma. We do not have these reports at this time. Esophageal Questionnaire(s) BEDQ Questionnaire No data to display No data to display Eckardt Questionnaire No data to display Promis 10 Questionnaire No data to display STUDIES & PROCEDURES: EGD: Colonoscopy: 11/2016 Findings: Two semi-sessile polyps were found in the recto-sigmoid colon. The polyps were 1 to 2 mm in size. These polyps were removed with a jumbo cold forceps. Resection and retrieval were complete. The exam was otherwise without abnormality on direct and retroflexion views. Impression: - Two 1 to 2 mm polyps at the recto-sigmoid colon. Resected and retrieved. - The examination was otherwise normal on direct and retroflexion views. FINAL DIAGNOSIS: COLON, RECTOSIGMOID POLYPS, POLYPECTOMIES: - Two hyperplastic polyps - Negative for dysplasia and malignancy 12/2014 Findings: The perianal and digital rectal examinations were normal. A flat polyp was found in the transverse colon. The polyp was 6 mm in size. The polyp was removed with a jumbo cold forceps. Resection and retrieval were complete. Impression: - One 6 mm polyp in the transverse colon. Resected and retrieved. FINAL DIAGNOSIS: Large intestine, transverse colon, polypectomy - Tubular adenoma - No evidence of high-grade dysplasia or invasive malignancy EndoFLIP directed at the UES or LES (8cm (EF-325) balloon length or 16cm (EF- 322) balloon length): Date: 8cm balloon Balloon inflation Balloon pressure CSA (mm^2) DI (mm^2/mmHg) Dmin (mm) Compliance 20 (ladmark ID) 30 40 50 16cm balloon Balloon inflation Balloon pressure CSA (mm^2) DI (mm^2/mmHg) Dmin (mm) Compliance 30 (ladmark ID) 40 50 60 70 High Resolution Manometry: PH/Impedance: Mckee: CT: 07/15/2022 IMPRESSION: 1. There is a large amount of stool in the rectosigmoid colon. No bowel obstruction or inflammation. Esophagram: FL VSS: GES: U/S: 05/04/2023 FINDINGS: Percent retention at 60 min = 89%. Percent retention at 120 min = 58%. Percent retention at 180 min = 29%. Percent retention at 240 min =8%. ?? T 1/2 emptying time = 136 mins. ?? IMPRESSION: Upper limits of normal for gastric emptying. XRAY: Other: 11/2022 [facility] Prior medical records were reviewed including, but not limited to, notes from referring providers, lab work, radiographic tests, and other diagnostic tests. Pertinent results were summarized above. History Past Medical History: Diagnosis Date ??? Anesthesia complication sensitivity ??? Autonomic dysfunction ??? Chronic constipation ??? Depression ??? Depressive disorder ??? Generalized anxiety disorder ??? History of colonic polyps ??? HLD (hyperlipidemia) ??? Migraines ??? Mixed sleep apnea Central and obstructive according to 05/05/16 PSG ??? Obesity ??? Other nervous system complications ??? PCOS (polycystic ovarian syndrome) ??? Stomach problems ??? Syncope Past Surgical History: Procedure Laterality Date ??? APPENDECTOMY ??? APPENDECTOMY ??? BREAST SURGERY ??? COLONOSCOPY N/A 12/10/2016 Procedure: COMBINED COLONOSCOPY, SINGLE OR MULTIPLE BIOPSY/POLYPECTOMY BY BIOPSY; Surgeon: Chaitanya Colon MD; Location: [facility] ??? COLONOSCOPY WITH CO2 INSUFFLATION N/A 12/13/2014 Procedure: COLONOSCOPY WITH CO2 INSUFFLATION; Surgeon: Adelso Dawson MD; Location: [facility] OR ??? ORTHOPEDIC SURGERY ??? [facility] EXPLORATORY OF ABDOMEN Social History Socioeconomic History ??? Marital status: Spouse name: Not on file ??? Number of children: Not on file ??? Years of education: Not on file ??? Highest education level: Not on file Occupational History ??? Not on file Tobacco Use ??? Smoking status: Never ??? Smokeless tobacco: Never Substance and Sexual Activity ??? Alcohol use: [...] file Housing Stability: Not on file Family History Problem Relation Age of Onset [...] ??? Ulcerative Colitis No family hx of Family history reviewed and edited as appropriate Medications and Allergies: Outpatient Encounter Medications as of 04/23/2023 Medication Sig Dispense Refill ??? AIMOVIG 140 MG/ML injection Inject 1 mL (140 mg) Subcutaneous every 30 days 1 mL 11 ??? clonazePAM (KLONOPIN) 0.5 MG tablet Take 0.5 mg by mouth daily ??? DULoxetine (CYMBALTA) 30 MG capsule Take 30 mg by mouth 2 times daily ??? fludrocortisone (FLORINEF) 0.1 MG tablet Take 2 tablets (0.2 mg) by mouth daily 180 tablet 3 ??? hydrOXYzine (ATARAX) 50 MG tablet Take 50 mg by mouth daily ??? linaclotide (LINZESS) 290 MCG capsule Take 1 capsule (290 mcg) by mouth every morning (before breakfast) 30 capsule 2 ??? midodrine (PROAMATINE) 5 MG tablet Take 1 tablet (5 mg) by mouth 2 times daily Do not take within 4 hours lying down 180 tablet 1 ??? ondansetron (ZOFRAN ODT) 4 MG ODT tab Take 1 tablet by mouth every 8 hours as needed ??? order for DME Equipment being ordered: Micro climate cooling vest 1 kit 0 ??? prochlorperazine (COMPAZINE) 5 MG tablet Take 1-2 tablets (5-10 mg) by mouth every 6 hours as needed for nausea or vomiting 20 tablet 3 ??? ZOLMitriptan (ZOMIG-ZMT) 5 MG ODT Take 1 tablet (5 mg) by mouth at onset of headache for migraine May repeat in 2 hours. Max 2 tablets/24 hours. 18 tablet 11 No facility-administered encounter medications on file as of 04/23/2023. Allergies Allergen Reactions ??? Amoxicillin-Pot Clavulanate GI Disturbance ??? Vicodin Hp [Hydrocodone-Acetaminophen] Review of systems: A full 10 point review of systems was obtained and was negative except for the pertinent positives and negatives stated within the HPI. Objective Findings: Physical Exam: Constitutional: BP (!) 129/90 Pulse 78 Ht 1.676 m (5' 6) Wt 79.1 kg (174 lb 4.8 oz) SpO2 97% BMI 28.13 kg/m?? General: Alert, cooperative, no distress, well-appearing Head: Atraumatic, normocephalic, no obvious abnormalities Eyes: Sclera anicteric, no obvious conjunctival hemorrhage Nose: Nares normal, no obvious malformation, no obvious rhinorrhea Respiratory: Resting comfortably, no apparent distress, no cough. Gastrointestinal: Flat, non distended Skin: No jaundice, no obvious rash Neurologic: AAOx3, no obvious neurologic abnormality Psychiatric: Normal Affect, appropriate mood Extremities: No obvious edema, no obvious malformation Labs, Radiology, Pathology Lab Results Component Value Date WBC 11.4 (H) 07/15/2022 WBC 4.7 03/04/2022 WBC 5.2 04/10/2016 HGB 12.3 07/15/2022 HGB 10.0 (L) 07/15/2022 HGB 14.9 07/15/2022 PLT 254 07/15/2022 PLT 222 03/04/2022 PLT 232 04/10/2016 ALT 22 03/04/2022 ALT 33 01/07/2015 AST 23 03/04/2022 AST 17 01/07/2015 NA 136 07/15/2022 NA 135 03/04/2022 NA 137 04/10/2016 BUN 7.0 07/15/2022 BUN 9 03/04/2022 BUN 8 01/07/2015 CO2 25 07/15/2022 CO2 25 03/04/2022 CO2 24 01/07/2015 TSH 0.65 03/04/2022 TSH 0.56 10/30/2013 Liver Function Studies - Recent Labs Lab Test 03/04/22 1235 PROTTOTAL 7.6 ALBUMIN 3.4 BILITOTAL 0.2 ALKPHOS 50 AST 23 ALT 22 Patient Active Problem List Diagnosis Date Noted ??? Irritable bowel syndrome without diarrhea 04/15/2016 Priority: Medium ??? Syncope 01/25/2014 Priority: Medium ??? Intractable 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 aura 10/05/2013 Priority: Medium Problem list name updated by automated process. Provider to review ??? Autonomic nervous system disorder 10/05/2013 Priority: Medium ??? Abdominal pain, generalized 10/05/2013 Priority: Medium Assessment and Plan Assessment/Plan: Darin Hatch is a 33 year old female with significant past medical history pertinent for dysautonomia, frequent migraine HAs, chronic diffuse abdominal pain, constipation, nausea, and prior adenomatous polyp who is presenting as a new patient in consultation at the request of Dr. Vasquez with a chief complaint of constipation/irregular bowel habits. #Constipation #Pelvic Floor Dysfunction Darin presents today with concerns of chronic constipation. Current bowel regimen consists of Linzess 290 mcg, MiraLAX 17 g once daily and fiber supplement of 10 g daily. Currently she is having typical bowel patterns with Anselmo stool type IV stools occurring consecutively for 2 to 3 days followed by 3 to 5 days without a bowel movement. She has underwent pelvic floor therapy with biofeedback with reports of minimal improvement in stool frequency however has reported decreased straining/pushing and improvement in her ability to initiate a bowel movement. As she continues to have some success with Linzess will make adjustments in osmotic laxatives. If no improvement would then consider additional colonic motility testing. Future considerations would be trial of Motegrity or Trulance as she is not previously used these medications. - Continuing Linzess at 290 mcg daily -Start magnesium oxide 500 mg once nightly, on days where there are missed bowel movements please take an additional tablet prior to bed for a total of 1,000mg. Please do not exceed 2 tablets/day. - If no BM for 4-5 days, use Fleets enema/tap water enema or complete Miralax bowel cleanse. With addition of magnesium oxide please refrain from uawg-oue-hwnoiyg use of magnesium citrate. - Contact GI clinic if you do not have success with above recommendations, and then can consider therapeutic gastrograffin enema #Colorectal Cancer Screening Colonoscopy 2016 with 2 hyperplastic polyps. Previous colonoscopies with adenomas. Family history pertinent for father with colorectal cancer at age 50. Per patient she has had a more recent colonoscopy which message has been sent to clinical administrative support technician to obtain records. Per prior documentationand patient reports she has been on a 3-year recall. - Repeat colonoscopy pending on findings on most recent endoscopic evaluation ADDENDUM 05/05/2023: 10/2021 [facility] All polyps were benign either normal colonic tissue or hyperplastic. Recall per performing providerwas 5 years secondary to family history of father with colon cancer. Follow up plan: Return to clinic [address] Vasquez followed by OV with myself 6 months from today or sooneras needed. The risks and benefits of my recommendations, as well as other treatment options were discussed with the patient and any available family today. All questions were answered. o Follow up: As planned above. Today, I personally spent 22 minutes in direct face to face time with the patient, of which greater than 50% of the time was spent in patient education and counseling as described above. Approximately 16 minutes were spent on indirect care associated with the patient's consultation including but not limited to review of: patient medical records to date, clinic visits, hospital records, lab results, imaging studies, procedural documentation, and coordinating care with other providers. The findings from this review are summarized in the above note. All of the above accounted for a cumulative time of 38 minutes and was performed on the date of service. The patient verbalized understanding of the plan and was appreciative for the time spent and information provided during the office visit. Darin Mckeon PA-C Division of Gastroenterology, Hepatology, and Nutrition [facility] Documentation assisted by voice recognition and documentation system. documented in this encounter Nursing Notes * Stephani Wheatley MA - 04/23/2023 11:30 AM CDT Chief Complaint Patient presents with Follow Up Vitals: 04/23/23 1129 BP: (!) 129/90 Pulse: 78 SpO2: 97% Weight: 79.1 kg (174 lb 4.8 oz) Height: 1.676 m (5' 6) Body mass index is 28.13 kg/m??. Stephani Wheatley MA documented in this encounter Miscellaneous Notes * Addendum Note - Darin Mckeon PA-C - 04/23/2023 11:30 AM CDTAddended by: DARIN MCKEON on: 04/24/2023 10:40 AM Modules accepted: Orders documented in this encounter Plan of Treatment Upcoming Encounters Date Type Department Care Team (Late st Contact Info) Description 09/29/2023 9:30 AM TENTER Ancillary Procedure [facility] [address] [facility] [address] [place] [phone] Zain Quintana MD [address] [place], [place] [address] 10/01/2023 9:30 AM TENTER Ancillary Procedure [facility] [address] [place] [phone] Zain Quintana MD [address] [place], [place] [id number] 10/18/2023 PRE VISIT [facility] [address] [place] [phone] Airam Hodges PA-C [address] [place], [place] [address] Previsit 10/21/2023 11:30 AM TENTER Therapy Visit [facility] [address] [facility] [address] [place], [place] [address] Zain Quintana MD [address] [place], [place] [address] [place] [address] [place], [place] [id number] 10/26/2023 1:00 PM TENTER Virtual Visit [facility] [address] [phone] Darin Mckeon PA-C [address] [place] [id number] 10/28/2023 10:50 AM TENTER Therapy Visit [address] [address] Zain Quintana MD [address] [place] [id number] Lainey Simon, PT [address] [place] [address] 11/04/2023 10:50 AM TENTER Therapy Visit [address] [address] Zain Quintana MD [address] [place] [address] Lainey Simon, PT [address] [place] [address] 11/24/2023 10:40 AM CDT Office Visit [facility] [address] [phone] Abby Vasquez MD [address] [place] [address] 01/13/2024 10:00 AM CDT Virtual Visit [facility] Neurology [address] [phone] Rosalba Pendleton APRN MILKING MACHINE MECHANIC [address] [place] [address] [id number] [place] [address] 01/20/2024 8:00 PM CDT Therapy Visit [facility] [address] [phone] 03/14/2024 10:30 AM CDT Office Visit [facility] [address] [phone] Abhishek Acevedo PA-C [address] [id number] 03/21/2024 11:30 AM CDT Office Visit [facility] [address] 4th [place] [phone] Zain Quintana MD [address] [place] [address] documented as of this encounter Visit Diagnoses Diagnosis Constipation, unspecified constipation type- Primary Chronic idiopathic constipation Unspecified constipation Chronic abdominal pain Abdominal pain, unspecified site Pelvic floor dysfunction Pelvic muscle wasting documented in this encounter Additional Health Concerns Assessment Noted Time PHQ-9 Depression Total Score: 11 022 11:52 AM CDT documented as of this encounter Care Teams Health Technical Writer Relationship Specialty Start Date End Date Monty Musa MD [facility] [address] [place] [address] PCP - General Family Medicine 08/13/21 Alfonso Tang [facility] [address] [place] [address] Family Practice 08/13/21 Dayanara Bee MD [address] [place] [address] Pediatrics 12/26/14 Min Lange MD 420 [facility] 75 [place] [address] Neurology 03/30/16 Marlo Madsen MD [address] [address] Cardiology 10/27/16 Mel Buckley, RN Nurse Coordinator Physical Medicine and Rehabilitation 12/02/16 Douglas Cadet MD [address] [place] [address] Gastroenterology 08/13/21 Rosalba Pendleton APRN MILKING MACHINE MECHANIC [address] [place] [address] Nurse Practitioner Neurology 09/05/21 Rosalba Pendleton APRN MILKING MACHINE MECHANIC [address] [place] [address] Assigned Neuroscience Provider 11/09/21 Douglas Cadet MD [address] [place] [address] Assigned Gastroenterology Provider 03/14/22 09/03/23 Marlo Madsen MD [address] [place] [address] Assigned Heart and Vascular Provider 03/14/22 Abby Vasquez MD [address] [place] [address] Gastroenterology 07/16/22 Abby Vasquez MD 9 [place] [address] Assigned PCP 09/26/22 documented as of this encounter
--- OUTSIDE RECORDS SUMMARY | 2023-09-27 15:47 | XMS_ITS | Encounter Summary ---
Author Name Unknown Organization [place] Address [address] [facility] [place] [address] Care Team Providers Care Bend Sorter Name Role Phone Monty Musa MD Primary Care Provider [phone] Alfonso Tang Unavailable Unavailable Dayanara Bee MD Unavailable [phone] Min Lange MD Unavailable Unavailable Marlo Madsen MD Unavailable [phone] Mel Buckley RN Unavailable [phone] Douglas Cadet MD Unavailable [phone] Rosalba Pendleton APRN APPLICATION LEAD Unavaila ble Rosalba Pendleton APRN APPLICATION LEAD Unavaila ble Douglas Cadet MD Unavailable [phone] Marlo Madsen MD Unavailable [phone] Abby Vasquez MD Unavailable Abby Vasquez MD Unavailable Encounter Details Date Type Department Care Team (Latest Contact Info) Description 04/16/2023 Travel Social History Tobacco Use Types Packs/Day Years Used Date Smoking Tobacco: Never Smokeless Tobacco: Never Alcohol Use Standard Drinks/Week Comments No 0 (1 standard drink = 0.6 oz pur e alcohol) PHQ-2 Answer Date Recorded PHQ-2 Score 2 04/02/2023 Sex and Gender Information Value Date Recorded Sex Assigned at Female 10/31/2021 7:59 AM THEATER SET PRODUCTION DESIGNER Gender Identity Female 10/31/2021 7:59 AM THEATER SET PRODUCTION DESIGNER Sexual Orientation Straight 10/31/2021 7: 59 AM THEATER SET PRODUCTION DESIGNER COVID-19 Exposure Response Date Recorded In the last 10 days, have yo u been in contact with someone who was confirmed or suspected to have Coronavirus/COVID-19? No / Unsure 04/16/2023 10:05 AM CDT documented as of this encounter Plan of Treatment Upcoming Encounters Date Type Department Care Team (Late st Contact Info) Description 09/29/2023 9:30 AM THEATER SET PRODUCTION DESIGNER Ancillary Procedure [facility] [address] [place] [phone] Zain Quintana MD [address] [place], [place] [address] 10/01/2023 9:30 AM THEATER SET PRODUCTION DESIGNER Ancillary Procedure [facility] [address] [place] [phone] Zain Quintana MD [address] [place], [place] [address]25 10/18/2023 PRE VISIT [facility] [address] 4th [place] [phone] Airam Hodges PA-C 500 [place], [place] [phone] Previsit 10/21/2023 11:30 AM THEATER SET PRODUCTION DESIGNER Therapy Visit [facility] Rehabilitation [facility] [address] [facility] [address] [place] [address] Zain Quintana MD [address] [place], [place] [phone] Lainey Simon, JAY [address] [place] [address] 10/26/2023 1:00 PM THEATER SET PRODUCTION DESIGNER Virtual Visit [facility] [address] [phone] Latricia Pettit PA-C [address] [place] [address] 10/28/2023 10:50 AM THEATER SET PRODUCTION DESIGNER Therapy Visit [address] [address] Zain Quintana MD [address] [place] [address] Lainey Simon, JAY [address] [place] [address] 11/04/2023 10:50 AM THEATER SET PRODUCTION DESIGNER Therapy Visit [address] [address] Zain Quintana MD [address] [place] [address] Lainey Simon PT [address] [place] [address] 11/24/2023 10:40 AM CDT Office Visit [facility] [address] [phone] Abby Vasquez MD [address] [place] [address] 01/13/2024 10:00 AM CDT Virtual Visit [facility] [address] 3rd [place] [phone] Rosalba Pendleton APRN [address] [id number] [place] [address] 01/20/2024 8:00 PM CDT Therapy Visit [facility] [address] [phone] 03/14/2024 10:30 AM CDT Office Visit [facility] [address] [address] Abhishek Acevedo PA-C [address] [facility] 103 [place], [place] [phone] 03/21/2024 11:30 AM CDT Office Visit [facility] [address] 4th [place] [phone] Zain Quintana MD [address] [place] [address] [phone] documented as of this encounter Visit Diagnoses Not on filedocumented in this encounter Additional Health Concerns Assessment Noted Time PHQ-9 Depression Total Score: 11 022 11:52 AM CDT documented as of this encounter Care Teams Bend Sorter Relationship Specialty Start Date End Date Monty Musa MD [facility] [address] [place] [address] PCP - General Family Medicine 08/13/21 Alfonso Tang [facility] [address] [place] [address] Family Practice 08/13/21 Dayanara Bee MD [address] [place] [address] 75 [place] [address] Pediatrics 12/26/14 Min Lange MD 420 [facility] 75 [place] [address] Neurology 03/30/16 Marlo Madsen MD [address] [address] Cardiology 10/27/16 Mel Buckley, RN Nurse Coordinator Physical Medicine and Rehabilitation 12/02/16 Douglas Cadet MD [address] [place] [address] Gastroenterology 08/13/21 Rosalba Pendleton APRN APPLICATION LEAD [address] [place] [address] Nurse Practitioner Neurology 09/05/21 Rosalba Pendleton APRN APPLICATION LEAD [address] [place] [address] Assigned Neuroscience Provider 11/09/21 Douglas Cadet MD [address] [place] [address] Assigned Gastroenterology Provider 03/14/22 09/03/23 Marlo Madsen MD [address] [place] [address] Assigned Heart and Vascular Provider 03/14/22 Abby Vasquez MD [address] [place] [address] Gastroenterology 07/16/22 Abby Vasquez MD [address] [place] [address] Assigned PCP 09/26/22 documented as of this encounter
--- OUTSIDE RECORDS SUMMARY | 2023-09-27 15:47 | XMS_ITS | Encounter Summary ---
Author Name Unknown Organization [place] Address [address] [facility] [place] [address] Care Team Providers Care Combat Information Center Officer Name Role Phone Monty Musa MD Primary Care Provider [phone] Alfonso Tang Unavailable Unavailable Dayanara Bee MD Unavailable [phone] Min Lange MD Unavailable Unavailable Albert Gee MD Unavailable [phone] Mel Buckley RN Unavailable [phone] Douglas Cadet MD Unavailable [phone] Rosalba Pendleton APRN USER EXPERIENCE LEAD Unavaila ble Rosalba Pendleton APRN USER EXPERIENCE LEAD Unavaila ble Douglas Cadet MD Unavailable [phone] Albert Gee MD Unavailable [phone] Abby Vasquez MD Unavailable Abby Vasquez MD Unavailable Reason for Referral * Consultation (Routine: Next available opening) - Pending Review Specialty Diagnoses / Procedures Referred By Contgeovany t Referred To Contact Cardiovascular Disease Diagnoses Syncope and collapse Palpitations Vasovagal syncope Albert Gee MD [address] [address] Referral ID Status Reason Start Date Expiration Date V isits Requested Visits Authorized [id number] Pending Review 04/27/2023 04/26/2024 1 1 Scheduling Instructions Video visit with Dr. Gee Question Answer Follow-up with: Self Reason for follow-up: EP Scheduling Instructions: [facility] will call you to coordinate your care as prescribed by your provider. If you have concerns about scheduling, please call [phone]. Comments [facility] will call you to coordinate your care as prescribed by your provider. If you have concerns about scheduling, please call [phone]. Reason for Visit * Reason Comments Follow Up Return Cardiology- 3 mo follow up for VVS * Consultation (Routine: Next available opening) - Pending Review Specialty Diagnoses / Procedures Referred By Contac t Referred To Contact Cardiovascular Disease Diagnoses Syncope and collapse Palpitations Vasovagal syncope Albert Gee MD [address] [place] [address] Referral ID Status Reason Start Date Expiration Date V isits Requested Visits Authorized [id number] Pending Review 01/19/2023 01/19/2024 1 1 Encounter Details Date Type Department Care Team (Late st Contact Info) Description 04/27/2023 2:30 PM CDT Office Visit [facility] [address] [address] Albert Gee MD [address] [place] [address] [phone] Syncope and collapse; Palpitations; Vasovagal syncope Social History Tobacco Use Types Packs/Day Years Used Date Smoking Tobacco: Never Smokeless Tobacco: Never Tobacco Cessation:Counseling Given: Not Answered Alcohol Use Standard Drinks/Week Comments No 0 (1 standard drink = 0.6 oz pur e alcohol) PHQ-2 Answer Date Recorded PHQ-2 Score 2 04/02/2023 Sex and Gender Information Value Date Recorded Sex Assigned at Female 10/31/2021 7:59 AM HOTEL HOUSEMAN Gender Identity Female 10/31/2021 7:59 AM HOTEL HOUSEMAN Sexual Orientation Straight 10/31/2021 7: 59 AM HOTEL HOUSEMAN COVID-19 Exposure Response Date Recorded In the last 10 days, have yo u been in contact with someone who was confirmed or suspected to have Coronavirus/COVID-19? Unable to assess 04/27/2023 10:12 AM CDT documented as of this encounter Last Filed Vital Signs Vital Sign Reading Time Taken Comments Blood Pressure 128/88 04/27/2023 2:35 PM CDT Pulse 81 04/27/2023 2:35 PM CDT Temperature - - Respiratory Rate - - Oxygen Saturation 97% 04/27/2023 2:35 PM CDT Inhaled Oxygen Concentration - - Weight 80.3 kg (177 lb) 04/27/2023 2:35 PM CDT Height 167.6 cm (5' 6) 04/27/2023 2:35 PM CDT Body Mass Index 28.57 04/27/2023 2:35 PM CDT documented in this encounter Patient Instructions * Patient Instructions* Miladis Wang RN - 04/27/2023 2:30 PM CDT Images from the original note were not included. You were seen in the Electrophysiology Clinic today by: Dr. Gee Plan: Medication Changes: None. Follow up Visit: Video visit with Dr. eGe in 1 year If you have further questions, please utilize [employer] to contact us. Your Care Team: EP Cardiology Telephone Number Nurse Line Javier Wang RN For scheduling appointments: Leslie For procedure scheduling: Lizet Laguna For the Device Clinic (Pacemakers, ICDs, Loop Recorders) During business hours: [phone] After business hours: [phone]- select option 4 and ask for job code [id number]. On-call director of physical therapy for after hours or on weekends: [phone], option #4, and ask to speak to the on-call director of physical therapy. Cardiovascular Clinic: [address] [place] [address]. [place] [address] As always, Thank you for trusting us with your health care needs! documented in this encounter Progress Notes * Albert Gee MD - 04/27/2023 2:30 PM CDT Images from the original note were not included. HPI: Latricia is a 33-year-old woman with history of recurrent vasovagal faints. She has recently been treated with a combination of fludrocortisone and low-dose midodrine with good result. Since her last visit she has had only 1 fainting episode. That occurred when she was taking her first boxing class. The property assessment monitor on at that time did not show any bradycardia but did reveal a sinus tachycardia. Symptoms however were classic for vasovagal event with pallor, sweatiness, feeling hot, feeling nauseated, and lying down to abort the episode. Given patient's current state with relatively good control we will increase her midodrine to 10 in the morning and 5 at noon. I reemphasized the importance of hydration and electrolyte intake. She does use Pedialyte on a regular basis. Depending on her follow-up we will plan to see her again in 1 years time but could see her earlier if needed PAST MEDICAL HISTORY: Past Medical History: Diagnosis Date Anesthesia complication sensitivity Autonomic dysfunction Chronic constipation Depression Depressive disorder Generalized anxiety disorder History of colonic polyps HLD (hyperlipidemia) Migraines Mixed sleep apnea Central and obstructive according to 05/05/16 PSG Obesity Other nervous system complications PCOS (polycystic ovarian syndrome) Stomach problems Syncope CURRENT MEDICATIONS: Current Outpatient Medications Medication [...] every morning (before breakfast) 30 capsule 2 Magnesium Oxide -Mg Supplement 500 MG TABS Take 1 tablet (500 mg) by mouth daily for 180 days 120 tablet 1 midodrine (PROAMATINE) 5 MG tablet Take 1 tablet (5 mg) by mouth 2 times daily Do not take within 4hours lying down 180 tablet 1 ondansetron (ZOFRAN ODT) 4 MG ODT tab Take 1 tablet by mouth every 8 hours as needed order for DME Equipment being ordered: Micro climate cooling vest 1 kit 0 prochlorperazine (COMPAZINE) 5 MG tablet Take 1-2 tablets (5-10 mg) by mouth every 6 hours as needed for nausea or vomiting 20 tablet 3 ZOLMitriptan (ZOMIG-ZMT) 5 MG ODT Take 1 tablet (5 mg) by mouth at onset of headache for migraine May repeat in 2 hours. Max 2 tablets/24 hours. 18 tablet 11 PAST SURGICAL HISTORY: Past Surgical History: Procedure Laterality Date APPENDECTOMY APPENDECTOMY BREAST SURGERY COLONOSCOPY N/A 12/10/2016 Procedure: COMBINED COLONOSCOPY, SINGLE OR MULTIPLE BIOPSY/POLYPECTOMY BY BIOPSY; Surgeon: Chaitanya Colon MD; Location: [facility] COLONOSCOPY WITH CO2 INSUFFLATION N/A 12/13/2014 Procedure: COLONOSCOPY WITH CO2 INSUFFLATION; Surgeon: Adelso Dawson MD; Location: [facility]THOPEDIC SURGERY [facility] EXPLORATORY OF ABDOMEN ALLERGIES: Allergies Allergen Reactions Amoxicillin-Pot Clavulanate GI Disturbance Vicodin Hp [Hydrocodone-Acetaminophen] FAMILY HISTORY: Family History Problem Relation Age [...] of Ulcerative Colitis No family hx of SOCIAL HISTORY: Social History Tobacco Use Smoking status: Never Smokeless tobacco: Never Substance Use Topics Alcohol use: No Drug use: No ROS: Constitutional: No fever, chills, or sweats. Weight stable. ENT: No visual disturbance, ear ache, epistaxis, sore throat. Cardiovascular: As per HPI. Respiratory: No cough, hemoptysis. GI: No nausea, vomiting. : No hematuria. Integument: Negative. Psychiatric: Negative. Hematologic: no easy bleeding. Neuro: Negative. Endocrinology: No significant heat or cold intolerance Musculoskeletal: No myalgia. Exam: BP 128/88 (BP Location: Right arm, Patient Position: Chair, Cuff Size: Adult Regular) Pulse 81 Ht 1.676 m (5' 6) Wt 80.3 kg (177 lb) SpO2 97% BMI 28.57 kg/m?? GENERAL APPEARANCE: healthy, alert and no distress HEENT: no icterus,, no central cyanosis NECK: , JVP not elevated RESPIRATORY: no rales, rhonchi or wheezes, no use of accessory muscles, no retractions, respirations are unlabored, normal respiratory rate NEURO: alert and oriented to person/place/time, normal speech, gait and affect. SKIN: no ecchymoses, no rashes Labs: CBC RESULTS: Lab Results Component Value Date WBC 11.4 (H) 07/15/2022 WBC 5.2 04/10/2016 RBC 4.88 07/15/2022 RBC 4.29 04/10/2016 HGB 12.3 07/15/2022 HGB 13.3 04/10/2016 HCT 45.2 07/15/2022 HCT 38.9 04/10/2016 MCV 93 07/15/2022 MCV 91 04/10/2016 MCH 30.5 07/15/2022 MCH 31.1 04/10/2016 MCHC 33.0 07/15/2022 MCHC 34.2 04/10/2016 RDW 12.6 07/15/2022 RDW 12.2 04/10/2016 PLT 254 07/15/2022 PLT 232 04/10/2016 PLT 257 01/07/2015 BMP RESULTS: Lab Results Component Value Date NA 136 07/15/2022 NA 137 04/10/2016 POTASSIUM 3.3 (L) 07/15/2022 POTASSIUM 4.1 03/04/2022 POTASSIUM 3.9 04/10/2016 CHLORIDE 100 07/15/2022 CHLORIDE 108 03/04/2022 CHLORIDE 103 04/10/2016 CO2 25 07/15/2022 CO2 25 03/04/2022 CO2 24 01/07/2015 ANIONGAP 11 07/15/2022 ANIONGAP 2 (L) 03/04/2022 ANIONGAP 10 04/10/2016 GLC 88 07/15/2022 GLC 82 03/04/2022 GLC 82 04/10/2016 BUN 7.0 07/15/2022 BUN 9 03/04/2022 BUN 8 01/07/2015 CR 0.70 07/15/2022 CR 0.72 04/10/2016 GFRESTIMATED >90 07/15/2022 GFRESTIMATED >90 Non GFR Calc 01/07/2015 GFRESTBLACK >90 GFR Calc 01/07/2015 JESUS 9.0 07/15/2022 JESUS 9.3 04/10/2016 INR RESULTS: No results found for: INR Procedures: PULMONARY FUNCTION TESTS: No data to display ECHOCARDIOGRAM: No results found for this or any previous visit (from the past 8760 hour(s)). Assessment and Plan: 1. Recurrent vasovagal faints-improved with fludrocortisone and midodrine Plan 1. Increase midodrine to 10 mg in the morning and 5 at noon 2. Follow-up video visit to assess status in about 1 year or earlier if needed Total elapsed time today with chart review, clinic visit and documentation 20 minutes I very much appreciated the opportunity to see and assess Latricia Hatch in the clinic today. [place] not hesitate to contact my office if you have any questions or concerns. Albert Gee MD Cardiac Arrhythmia Service [facility] [phone] CC ALBERT GEE documented in this encounter Nursing Notes * Blane Arias - 04/27/2023 2:30 PM CDT Chief Complaint Patient presents with Follow Up Return Cardiology- 3 mo follow up for VVS Vitals were taken and medications reconciled. DELIA Fischer 2:42 PM documented in this encounter Plan of Treatment Upcoming Encounters Date Type Department Care Team (Late st Contact Info) Description 09/29/2023 9:30 AM HOTEL HOUSEMAN Ancillary Procedure [address] [place] [address] Zain Quintana MD [address] [place] [address] 10/01/2023 9:30 AM HOTEL HOUSEMAN Ancillary Procedure [facility] [address] [place] [place] [address] Zain Quintana MD 500 [place], [place] [address] 10/18/2023 PRE VISIT [facility] [address] [phone] Airam Hodges PA-C 500 [place], [place] [phone] Previsit 10/21/2023 11:30 AM HOTEL HOUSEMAN Therapy Visit [facility] [address] [place] [address] [address] [place] [address] Zain Quintana MD [address] [place], [place] 277[address] [place] [address] [place] [address] 10/26/2023 1:00 PM HOTEL HOUSEMAN Virtual Visit [facility] Gastroenterology Clinic [address] [phone] Latricia Pettit PA-C [address]09 [place], [place] [phone] 10/28/2023 10:50 AM HOTEL HOUSEMAN Therapy Visit [address] [place] [address] Zain Quintana MD [address] [place], [place] 9[address] [place] [address] [place] [address] 11/04/2023 10:50 AM HOTEL HOUSEMAN Therapy Visit [facility] Rehabilitation Services [facility] [address] [facility] 300 [place] [address] Zain Quintana MD [address] [place] [address] [place] [address] [place] [address] 11/24/2023 10:40 AM CDT Office Visit [facility] Gastroenterology Clinic [address] [place] [phone] Abby Vasquez MD [address] [place] [address] 01/13/2024 10:00 AM CDT Virtual Visit [facility] Neurology Clinic [address] [place] [phone] Rosalba Pendleton APRN [address] SW6201WO [place] [address] 01/20/2024 8:00 PM CDT Therapy Visit [facility] Sleep [place] [address] SY[place]IE Martinez [address] 03/14/2024 10:30 AM CDT Office Visit [facility] Sleep [facility] [address] [place] [address] SYDNIE Martinez [phone] Abhishek Acevedo PA-C [address] [place] [address] [place] [phone] 03/21/2024 11:30 AM CDT Office Visit [facility] Colon [facility]al Surgery [facility] [place] [address] [facility] [address] 4th [place] [phone] Zain Quintana MD 500 [place] [address] Scheduled Referrals Name Type Priority Associated Diagnoses Orde r Schedule Follow-Up with Cardiology EP 1 Year Referral Routine: Next available opening Syncope and collapse Palpitations Vasovagal syncope Expected: 04/27/2024 (Approximate), Expires: 04/27/2024 documented as of this encounter Visit Diagnoses Diagnosis Syncope and collapse Palpitations Vasovagal syncope Syncope and collapse documented in this encounter Additional Health Concerns Assessment Noted Time PHQ-9 Depression Total Score: 11 022 11:52 AM CDT documented as of this encounter Care Teams Combat Information Center Officer Relationship Specialty Start Date End Date Monty Musa MD [facility] [address] [place] [address] PCP - General Family Medicine 08/13/21 Alfonso Tang [facility] [address] [place] [address] Family Practice 08/13/21 Dayanara Bee MD [address] [facility] 75 [place] [address] Pediatrics 12/26/14 Min Lange MD [address] [facility] 75 [place] [address] Neurology 03/30/16 Albert Gee MD [address] [facility] 508 [place] [address] Cardiology 10/27/16 Mel Buckley, RN Nurse Coordinator Physical Medicine and Rehabilitation 12/02/16 Douglas Cadet MD 500 [place] [address] Gastroenterology 08/13/21 Rosalba Pendleton APRN USER EXPERIENCE LEAD [address] [place] [address] Nurse Practitioner Neurology 09/05/21 Rosalba Pendleton APRN USER EXPERIENCE LEAD [address] [place] [address] 144075 Assigned Neuroscience Provider 11/09/21 Douglas Cadet MD 500 [place] [address] Assigned Gastroenterology Provider 03/14/22 09/03/23 Albert Gee MD [address] [place] [address] 508 [place], [place] 9865[address] Assigned Heart and Vascular Provider 03/14/22 Abby Vasquez MD [address] [place] [address] Gastroenterology 07/16/22 Abby Vasquez MD [address] [place] [address] Assigned PCP 09/26/22 documented as of this encounter
--- OUTSIDE RECORDS SUMMARY | 2023-09-27 15:47 | XMS_ITS | Encounter Summary ---
Author Name Unknown Organization [place] Address [address] [facility] [place] [address] Care Team Providers Care Audiovisual Aids Technician Name Role Phone Monty Musa MD Primary Care Provider [phone] Alfonso Tang Unavailable Unavailable Dayanara Bee MD Unavailable [phone] Min Lange MD Unavailable Unavailable Marlo Madsen MD Unavailable [phone] Mel Buckley RN Unavailable [phone] Douglas Cadet MD Unavailable [phone] Rosalba Pendleton APRN STAFF ATTORNEY Unavaila ble Rosalba [place] APRN STAFF ATTORNEY Unavaila ble Douglas Cadet MD Unavailable [phone] Marlo Madsen MD Unavailable [phone] Abby Vasquez MD Unavailable Abby Vasquez MD Unavailable Encounter Details Date Type Department Care Team (Latest Contact Info) Description 04/27/2023 Travel Social History Tobacco Use Types Packs/Day Years Used Date Smoking Tobacco: Never Smokeless Tobacco: Never Alcohol Use Standard Drinks/Week Comments No 0 (1 standard drink = 0.6 oz pur e alcohol) PHQ-2 Answer Date Recorded PHQ-2 Score 2 04/02/2023 Sex and Gender Information Value Date Recorded Sex Assigned at Female 10/31/2021 7:59 AM WELCOME DESK AGENT Gender Identity Female 10/31/2021 7:59 AM WELCOME DESK AGENT Sexual Orientation Straight 10/31/2021 7: 59 AM WELCOME DESK AGENT COVID-19 Exposure Response Date Recorded In the last 10 days, have yo u been in contact with someone who was confirmed or suspected to have Coronavirus/COVID-19? Unable to assess 04/27/2023 10:12 AM CDT documented as of this encounter Plan of Treatment Upcoming Encounters Date Type Department Care Team (Late st Contact Info) Description 09/29/2023 9:30 AM WELCOME DESK AGENT Ancillary Procedure [facility] [address] [facility] [address] [place] [phone] Zain Quintana MD 500 [place], [place] [address] 10/01/2023 9:30 AM WELCOME DESK AGENT Ancillary Procedure [facility] [address] [facility] [address] [place] [phone] Zain Quintana MD 500 [place], [place] [address] 10/18/[address] [facility] Colon and Rectal Surgery Clinic [place] [address] [facility] [address] 4th [place] [phone] Airam Hodges PA-C 500 [place], [place] [phone] Previsit 10/21/2023 11:30 AM WELCOME DESK AGENT Therapy Visit [facility] Rehabilitation Services [facility] [address] [facility] [address] [place] [address] Zain Quintana MD 500 [place], [place] 12[address] Lainey Simon JAY [address] [place] [address] 10/26/2023 1:00 PM WELCOME DESK AGENT Virtual Visit [facility] Gastroenterology Clinic [address] [phone] Latricia Pettit PA-C [address] [place] [address] 10/28/2023 10:50 AM WELCOME DESK AGENT Therapy Visit [address] [address] Zain Quintana MD [address] [place] [address] Lainey Simon PT [address] [place] [address] 11/04/2023 10:50 AM WELCOME DESK AGENT Therapy Visit [address] [address] Zain Quintana MD [address] [place] [address] Lainey Simon PT [address] [place] [address] 11/24/2023 10:40 AM CDT Office Visit [facility] Gastroenterology Clinic [address] [phone] Abby Vasquez MD [address] [place] [address] 01/13/2024 10:00 AM CDT Virtual Visit [facility] Neurology Clinic [address] 3rd [place] [phone] Rosalba Pendleton APRN [address] [id number] [place] [address] 01/20/2024 8:00 PM CDT Therapy Visit [facility] Sleep [facility] [address] [phone] 03/14/2024 10:30 AM CDT Office Visit [facility] [address] [address] Abhishek Acevedo PA-C [address] [facility] [address] [place], [place] [phone] 03/21/2024 11:30 AM CDT Office Visit [facility] Colon and Rectal Surgery Clinic [address] 4th [place] [phone] Zain Quintana MD [address] [place] [address] documented as of this encounter Visit Diagnoses Not on filedocumented in this encounter Additional Health Concerns Assessment Noted Time PHQ-9 Depression Total Score: 11 022 11:52 AM CDT documented as of this encounter Care Teams Audiovisual Aids Technician Relationship Specialty Start Date End Date Monty Musa MD [facility] [address] [place] [address] PCP - General Family Medicine 08/13/21 Alfonso Tang [facility] [address] [place] [address] Family Practice 08/13/21 Dayanara Bee MD [address] [place] [address] 75 [place], [place] [address] Pediatrics 12/26/14 Min Lange MD 420 [facility] 75 [place] [address] Neurology 03/30/16 Marlo Madsen MD [address] [address] Cardiology 10/27/16 Mel Buckley, RN Nurse Coordinator Physical Medicine and Rehabilitation 12/02/16 Douglas Cadet MD [address] [place] [address] Gastroenterology 08/13/21 Rosalba Pendleton APRN STAFF ATTORNEY [address] [place] [address] Nurse Practitioner Neurology 09/05/21 Rosalba Pendleton APRN STAFF ATTORNEY [address] [place] [address] Assigned Neuroscience Provider 11/09/21 Douglas Cadet MD [address] [place] [address] Assigned Gastroenterology Provider 03/14/22 09/03/23 Marlo Madsen MD [address] [place] [address] Assigned Heart and Vascular Provider 03/14/22 Abby Vasquez MD [address] [place] [address] Gastroenterology 07/16/22 Abby Vasquez MD [address] [place] [address] Assigned PCP 09/26/22 documented as of this encounter
--- OUTSIDE RECORDS SUMMARY | 2023-09-27 15:47 | XMS_ITS | Encounter Summary ---
Author Name Unknown Organization [place] Address [address] [facility] [place] [address] Care Team Providers Care Tool Grinder Operator Name Role Phone Monty Musa MD Primary Care Provider [phone] Alfonso Tang Unavailable Unavailable Dayanara Bee MD Unavailable [phone] Min Lange MD Unavailable Unavailable Marlo Madsen MD Unavailable [phone] Mel Buckley RN Unavailable [phone] Douglas Cadet MD Unavailable [phone] Rosalba Pendleton APRN CAMP ADVISOR Unavaila ble Rosalba Pendleton APRN CAMP ADVISOR Unavaila ble Douglas Cadet MD Unavailable [phone] Marlo Madsen MD Unavailable [phone] Abby Vasquez MD Unavailable Abby Vasquez MD Unavailable Reason for Visit * Reason Onset Date Comments Refill Request 05/01/2023 midodrine (PROAM ATINE) 5 MG tablet Encounter Details Date Type Department Care Team (Late st Contact Info) Description 05/01/2023 Refill M [facility] [address] [place] [phone] Marlo Madsen MD 420 [facility] 508 [place], [place] [address] Refill Request (midodrine (PROAMATINE) 5 MG tablet ) Social History Tobacco Use Types Packs/Day Years Used Date Smoking Tobacco: Never Smokeless Tobacco: Never Alcohol Use Standard Drinks/Week Comments No 0 (1 standard drink = 0.6 oz pur e alcohol) PHQ-2 Answer Date Recorded PHQ-2 Score 2 04/02/2023 Sex and Gender Information Value Date Recorded Sex Assigned at Female 10/31/2021 7:59 AM KNOWLEDGE MANAGER Gender Identity Female 10/31/2021 7:59 AM KNOWLEDGE MANAGER Sexual Orientation Straight 10/31/2021 7: 59 AM KNOWLEDGE MANAGER COVID-19 Exposure Response Date Recorded In the last 10 days, have yo u been in contact with someone who was confirmed or suspected to have Coronavirus/COVID-19? Unable to assess 04/27/2023 10:12 AM CDT documented as of this encounter Miscellaneous Notes * Telephone Encounter - Palma Colby LPN - 05/03/2023 1:06 PM CDT Images from the original note were not included. documented in this encounter Plan of Treatment Upcoming Encounters Date Type Department Care Team (Late st Contact Info) Description 09/29/2023 9:30 AM KNOWLEDGE MANAGER Ancillary Procedure [facility] [address] [place] [address] [place] [phone] Zain Quintana MD 500 [place], [place] [address] 10/01/2023 9:30 AM KNOWLEDGE MANAGER Ancillary Procedure [facility] [address] [place] [address] [place] [phone] Zain Quintana MD 500 [place] [address] 10/18/[address] [facility] [address] [phone] Airam Hodges PA-C [address] [place] [address] Previsit 10/21/2023 11:30 AM KNOWLEDGE MANAGER Therapy Visit [address] [address] Zain Quintana MD [address] [place] [address] Lainey Simon, PT [address] [place] [address] 10/26/2023 1:00 PM KNOWLEDGE MANAGER Virtual Visit [facility] [address] [phone] Latricia Pettit PA-C [address] [place] [address] 10/28/2023 10:50 AM KNOWLEDGE MANAGER Therapy Visit [address] [address] Zain Quintana MD [address] [place] [address] Lainey Simon, PT [address] [place] [address] 11/04/2023 10:50 AM KNOWLEDGE MANAGER Therapy Visit [address] [address] Zain Quintana MD [address] [place] [address] 583505 [place] [address] [place] [address] 11/24/2023 10:40 AM CDT Office Visit [facility] [address] [place] [phone] Abby Vasquez MD [address] [place] [address] 01/13/2024 10:00 AM CDT Virtual Visit [facility] Neurology Clinic [address] [place] [phone] Rosalba Pendleton, MAXIMILIANO [address] [id number] [place], [place] [address] 01/20/2024 8:00 PM CDT Therapy Visit [facility] Sleep [address] [phone] 03/14/2024 10:30 AM CDT Office Visit [facility] Sleep [address] [phone] Abhishek Acevedo PA-C [address] [address] 03/21/2024 11:30 AM CDT Office Visit [facility] [address] [phone] Zain Quintana MD [address] [place] [address] 356245 documented as of this encounter Visit Diagnoses Diagnosis Syncope and collapse Palpitations Vasovagal syncope Syncope and collapse documented in this encounter Additional Health Concerns Assessment Noted Time PHQ-9 Depression Total Score: 11 022 11:52 AM CDT documented as of this encounter Care Teams Tool Grinder Operator Relationship Specialty Start Date End Date Monty Musa MD [facility] [address] [place] [address] PCP - General Family Medicine 08/13/21 Alfonso Tang [facility] [address] [place] [address] [facility] 08/13/21 Dayanara Bee MD 420 [facility] 75 [place], [place] [address] Pediatrics 12/26/14 Min Lange MD 420 [facility] 75 [place] [address] Neurology 03/30/16 Marlo Madsen MD [address] [place] [address] 508 [place] [address] Cardiology 10/27/16 Mel Buckley, RN Nurse Coordinator Physical Medicine and Rehabilitation 12/02/16 Douglas Cadet MD [address] [place] [address] Gastroenterology 08/13/21 Rosalba Pendleton APRN CAMP ADVISOR [address] [place] [address] [place] [address] Nurse Practitioner Neurology 09/05/21 Rosalba Pendleton APRN CAMP ADVISOR [address] [place] [address] [id number] [place] [address] Assigned Neuroscience Provider 11/09/21 Douglas Cadet MD [address] [place] [address] Assigned Gastroenterology Provider 03/14/22 09/03/23 Marlo Madsen MD [address] [place] [address] 508 [place] [address] Assigned Heart and Vascular Provider 03/14/22 Abby Vasquez MD [address] [place] [address] Gastroenterology 07/16/22 Abby Vasquez MD [address] [place] [address] Assigned PCP 09/26/22 documented as of this encounter
--- OUTSIDE RECORDS SUMMARY | 2023-09-27 15:47 | XMS_ITS | Encounter Summary ---
Author Name Unknown Organization [place] Address [address] [facility] [place] [address] Care Team Providers Care Burlap Spreader Name Role Phone Monty Musa MD Primary Care Provider [phone] Alfonso Tang Unavailable Unavailable Dayanara Bee MD Unavailable [phone] Min Lange MD Unavailable Unavailable Marlo Madsen MD Unavailable [phone] Mel Buckley RN Unavailable [phone] Douglas Cadet MD Unavailable [phone] Rosalba Pendleton APRN WORKERS' COMPENSATION CLAIMS SUPERVISOR Unavaila ble Rosalba Pendleton APRN WORKERS' COMPENSATION CLAIMS SUPERVISOR Unavaila ble Douglas Cadet MD Unavailable [phone] Marlo Madsen MD Unavailable [phone] Abby Vasquez MD Unavailable Abby Vasquez MD Unavailable Encounter Details Date Type Department Care Team (Latest Contact Info) Description 04/23/2023 Travel Social History Tobacco Use Types Packs/Day Years Used Date Smoking Tobacco: Never Smokeless Tobacco: Never Alcohol Use Standard Drinks/Week Comments No 0 (1 standard drink = 0.6 oz pur e alcohol) PHQ-2 Answer Date Recorded PHQ-2 Score 2 04/02/2023 Sex and Gender Information Value Date Recorded Sex Assigned at Female 10/31/2021 7:59 AM VICE PRESIDENT SALES AND MARKETING Gender Identity Female 10/31/2021 7:59 AM VICE PRESIDENT SALES AND MARKETING Sexual Orientation Straight 10/31/2021 7: 59 AM VICE PRESIDENT SALES AND MARKETING COVID-19 Exposure Response Date Recorded In the last 10 days, have yo u been in contact with someone who was confirmed or suspected to have Coronavirus/COVID-19? No / Unsure 04/23/2023 11:23 AM CDT documented as of this encounter Plan of Treatment Upcoming Encounters Date Type Department Care Team (Late st Contact Info) Description 09/29/2023 9:30 AM VICE PRESIDENT SALES AND MARKETING Ancillary Procedure [address] [place] [phone] Zain Quintana MD [address] [place], [place] [address] 10/01/2023 9:30 AM VICE PRESIDENT SALES AND MARKETING Ancillary Procedure [facility] [address] [facility] [address] [place] [phone] Zain Quintana MD [address] [place], [place] [address] 10/18/2023 PRE VISIT [facility] [address] 4th [place] [phone] Airam Hodges PA-C 500 [place], [place] [address] Previsit 10/21/2023 11:30 AM VICE PRESIDENT SALES AND MARKETING Therapy Visit [facility] [address] [facility] [address] [place] [address] Zain Quintana MD [address] [place], [place] [address] Lainey Simon, JAY [address] [place] [address] 10/26/2023 1:00 PM VICE PRESIDENT SALES AND MARKETING Virtual Visit [facility] [address] [phone] Latricia Pettit PA-C [address] [place] [address] 10/28/2023 10:50 AM VICE PRESIDENT SALES AND MARKETING Therapy Visit [address] [address] Zain Quintana MD [address] [place] [address] Lainey Simon, JAY [address] [place] [address] 11/04/2023 10:50 AM VICE PRESIDENT SALES AND MARKETING Therapy Visit [address] [address] Zain Quintana MD [address] [place] [address] Lainey Simon PT [address] [place] [address] 11/24/2023 10:40 AM CDT Office Visit [facility] [address] [phone] Abby Vasquez MD [address] [place] [address] 01/13/2024 10:00 AM CDT Virtual Visit [facility] Neurology [facility] [address] 3rd [place] [phone] Rosalba Pendleton APRN [address] [id number] [address] 01/20/2024 8:00 PM CDT Therapy Visit [facility] [address] [phone] 03/14/2024 10:30 AM CDT Office Visit [facility] [address] [address] Abhishek Acevedo PA-C 3178 [facility] 103 [place], [place] [id number] 03/21/2024 11:30 AM CDT Office Visit [facility] [address] 4th [place] [phone] Zain Quintana MD [address] [place] [address] 018075 documented as of this encounter Visit Diagnoses Not on filedocumented in this encounter Additional Health Concerns Assessment Noted Time PHQ-9 Depression Total Score: 11 022 11:52 AM CDT documented as of this encounter Care Teams Burlap Spreader Relationship Specialty Start Date End Date Monty Musa MD [facility] [address] [place] [address] PCP - General Family Medicine 08/13/21 Alfonso Tang [facility] [address] [place] [address] Family Practice 08/13/21 Dayanara Bee MD [address] [place] [address] 75 [place] [address] Pediatrics 12/26/14 Min Lange MD 420 [facility] [address] [place] [address] Neurology 03/30/16 Marlo Madsen MD [address] [address] Cardiology 10/27/16 Mel Buckley, RN Nurse Coordinator Physical Medicine and Rehabilitation 12/02/16 Douglas Cadet MD [address] [place] [address] Gastroenterology 08/13/21 Rosalba Pendleton APRN WORKERS' COMPENSATION CLAIMS SUPERVISOR [address] [place] [address] Nurse Practitioner Neurology 09/05/21 Rosalba Pendleton APRN WORKERS' COMPENSATION CLAIMS SUPERVISOR [address] [place] [address] Assigned Neuroscience Provider 11/09/21 Douglas Cadet MD [address] [place] [address] Assigned Gastroenterology Provider 03/14/22 09/03/23 Marlo Madsen MD [address] [place] [address] Assigned Heart and Vascular Provider 03/14/22 Abby Vasquez MD [address] [place] [address] Gastroenterology 07/16/22 Abby Vasquez MD [address] [place] [address] Assigned PCP 09/26/22 documented as of this encounter
--- OUTSIDE RECORDS SUMMARY | 2023-09-27 15:47 | XMS_ITS | Encounter Summary ---
Author Name Unknown Organization [place] Address [address] [facility] [place] [address] Care Team Providers Care Inside B2B Sales Name Role Phone Monty Musa MD Primary Care Provider [phone] Alfonso Tang Unavailable Unavailable Dayanara Bee MD Unavailable [phone] Min Lange MD Unavailable Unavailable Marlo Madsen MD Unavailable [phone] Mel Buckley RN Unavailable [phone] Douglas Cadet MD Unavailable [phone] Rosalba Pendleton APRN BRUSH HAND Unavaila ble Rosalba Pendleton APRN BRUSH HAND Unavaila ble Douglas Cadet MD Unavailable [phone] Marlo Madsen MD Unavailable [phone] Abby Vasquez MD Unavailable Abby Vasquez MD Unavailable Reason for Visit * Reason Onset Date Comments Requested [facility] records- colonoscopy 2022 Encounter Details Date Type Department Care Team (Latest Contact Info) Description 04/28/2023 Documentation Only [facility] [address] [place] [phone] Melany Freeman LPN Requested [facility] records- colonoscopy Social History Tobacco Use Types Packs/Day Years Used Date Smoking Tobacco: Never Smokeless Tobacco: Never Alcohol Use Standard Drinks/Week Comments No 0 (1 standard drink = 0.6 oz pur e alcohol) PHQ-2 Answer Date Recorded PHQ-2 Score 2 04/02/2023 Sex and Gender Information Value Date Recorded Sex Assigned at Female 10/31/2021 7:59 AM RURAL ELECTRIFICATION ENGINEER Gender Identity Female 10/31/2021 7:59 AM RURAL ELECTRIFICATION ENGINEER Sexual Orientation Straight 10/31/2021 7: 59 AM RURAL ELECTRIFICATION ENGINEER COVID-19 Exposure Response Date Recorded In the last 10 days, have yo u been in contact with someone who was confirmed or suspected to have Coronavirus/COVID-19? Unable to assess 04/27/2023 10:12 AM CDT documented as of this encounter Progress Notes * Melany Freeman LPN - 04/28/2023 10:55 AM CDT Faxed request to [facility] at [phone] requesting colonoscopy record be faxed to us. Spoke to Sammi in [facility] and she will send over records. Report received and sent to HIM to scan into chart. documented in this encounter Plan of Treatment Upcoming Encounters Date Type Department Care Team (Late st Contact Info) Description 09/29/2023 9:30 AM RURAL ELECTRIFICATION ENGINEER Ancillary Procedure [facility] [address] [place] [phone] Zain Quintana MD 500 [place], [place] [address] 10/01/2023 9:30 AM RURAL ELECTRIFICATION ENGINEER Ancillary Procedure [facility] [address] [place] [phone] Zain Quintana MD 500 [place], [place] [address] 10/18/2023 PRE VISIT [facility] [address] [phone] Airam Hodges PA-C [address] [place] [address] Previsit 10/21/2023 11:30 AM RURAL ELECTRIFICATION ENGINEER Therapy Visit [address] [address] Zain Quintana MD [address] [place] [address] 689725 Lainey Simon, PT [address] [place] [address] 10/26/2023 1:00 PM RURAL ELECTRIFICATION ENGINEER Virtual Visit [facility] [address] [phone] Latricia Pettit PA-C [address] [place] [address] 10/28/2023 10:50 AM RURAL ELECTRIFICATION ENGINEER Therapy Visit [address] [address] Zain Quintana MD [address] [place] [address] Lainey Simon, PT [address] [place] [address] 11/04/2023 10:50 AM RURAL ELECTRIFICATION ENGINEER Therapy Visit [address] [address] Zain Quintana MD 500 [place], [place] [address] [place] [address] [place] [address] 11/24/2023 10:40 AM CDT Office Visit [facility] [address] [place] [phone] Abby Vasquez MD [address] [place] [address] 01/13/2024 10:00 AM CDT Virtual Visit [facility] Neurology Clinic [address] [place] [phone] Rosalba Pendleton APRN [address] [id number] [place], [place] [address] 01/20/2024 8:00 PM CDT Therapy Visit [facility] Sleep [address] [phone] 03/14/2024 10:30 AM CDT Office Visit [facility] [address] [address] Abhishek Acevedo PA-C [address] [id number] 03/21/2024 11:30 AM CDT Office Visit [facility] [address] [phone] Zain Quintana MD [address] [place] [address] 058865 documented as of this encounter Visit Diagnoses Not on filedocumented in this encounter Additional Health Concerns Assessment Noted Time PHQ-9 Depression Total Score: 11 022 11:52 AM CDT documented as of this encounter Care Teams Inside B2B Sales Relationship Specialty Start Date End Date Monty Musa MD [facility] [address] [place] [address] PCP - General Family Medicine 08/13/21 Alfonso Tang [facility] [address] [place] [address] Family Practice 08/13/21 Daynaara Bee MD [address] [place] [address] Pediatrics 12/26/14 Min Lange MD [address] [address] Neurology 03/30/16 Marlo Madsen MD [address] [place] [address] 508 [place], [place] 7[address] Cardiology 10/27/16 Mel Buckley, RN Nurse Coordinator Physical Medicine and Rehabilitation 12/02/16 Douglas Cadet MD [address] [place] [address] 046875 Gastroenterology 08/13/21 Rosalba Pendleton APRN BRUSH HAND [address] [place] [address] 815025 Nurse Practitioner Neurology 09/05/21 Rosalba Pendleton APRN BRUSH HAND [address] [place] [address] Assigned Neuroscience Provider 11/09/21 Douglas Cadet MD [address] [place] [address] Assigned Gastroenterology Provider 03/14/22 09/03/23 Marlo Madsen MD [address] [place] [address] 508 [place] [address] Assigned Heart and Vascular Provider 03/14/22 Abby Vasquez MD [address] [place] [address] Gastroenterology 07/16/22 Abby Vasquez MD [address] [place] [address] Assigned PCP 09/26/22 documented as of this encounter
--- OUTSIDE RECORDS SUMMARY | 2023-09-27 15:47 | XMS_ITS | Encounter Summary ---
Author Name Unknown Organization [place] Address [address] [facility] [place] [address] Care Team Providers Care Canvas Goods Maker Name Role Phone Monty Musa MD Primary Care Provider [phone] Alfonso Tang Unavailable Unavailable Dayanara Bee MD Unavailable [phone] Min Lange MD Unavailable Unavailable Marlo Madsen MD Unavailable [phone] Mel Buckley RN Unavailable [phone] Douglas Cadet MD Unavailable [phone] Rosalba Pendleton APRN CHOKER HOOKER Unavaila ble Rosalba Pendleton APRN CHOKER HOOKER Unavaila ble Douglas Cadet MD Unavailable [phone] Marlo Madsen MD Unavailable [phone] Abby Vasquez MD Unavailable Abby Vasquez MD Unavailable Reason for Visit * Reason Onset Date Comments Appointment 04/27/2023 Follow up in Nov [facility] Encounter Details Date Type Department Care Team (Late st Contact Info) Description 04/27/2023 Telephone [facility] [place] [address] [place] [phone] Abby Vasquez MD 9[address] [place], [place] [address] Appointment (Follow up in July ) Social History Tobacco Use Types Packs/Day Years Used Date Smoking Tobacco: Never Smokeless Tobacco: Never Alcohol Use Standard Drinks/Week Comments No 0 (1 standard drink = 0.6 oz pur e alcohol) PHQ-2 Answer Date Recorded PHQ-2 Score 2 04/02/2023 Sex and Gender Information Value Date Recorded Sex Assigned at Female 10/31/2021 7:59 AM COPIER OPERATOR Gender Identity Female 10/31/2021 7:59 AM COPIER OPERATOR Sexual Orientation Straight 10/31/2021 7: 59 AM COPIER OPERATOR COVID-19 Exposure Response Date Recorded In the last 10 days, have yo u been in contact with someone who was confirmed or suspected to have Coronavirus/COVID-19? Unable to assess 04/27/2023 10:12 AM CDT documented as of this encounter Miscellaneous Notes * Telephone Encounter - Jenny Keita - 04/27/2023 10:13 AM CDT Intern Brand received a message from Latricia Pettit to help get Pt scheduled for a follow up visit with Dr. Vasquez in July. Pt is now scheduled for an appointment with Dr. Vasquez on 07/14/2023 at 8:40am for an in-person clinic visit. documented in this encounter Plan of Treatment Upcoming Encounters Date Type Department Care Team (Late st Contact Info) Description 09/29/2023 9:30 AM COPIER OPERATOR Ancillary Procedure [facility] [address] [place] [address] Zain Quintana MD 500 [place] [address] 10/01/2023 9:30 AM COPIER OPERATOR Ancillary Procedure [facility] [address] [facility] [address] [place] [address] Zain Quintana MD 500 [place] [address] 10/18/2023 PRE VISIT [facility] [address] [phone] Airam Hodges PA-C 500 [place] [address] Previsit 10/21/2023 11:30 AM COPIER OPERATOR Therapy Visit [address] [address] Zain Quintana MD 500 [place], [place] [address] Lainey Simon, PT [address] [place] [address] 10/26/2023 1:00 PM COPIER OPERATOR Virtual Visit [facility] [address] [phone] Latricia Pettit PA-C 909 [place] [address] 10/28/2023 10:50 AM COPIER OPERATOR Therapy Visit [address] [address] Zain Quintana MD [address] [place] [address] Lainey Simon, PT [address] [place] [address] 11/04/2023 10:50 AM COPIER OPERATOR Therapy Visit [facility] [address] [facility] [address] [place] [address] Zain Quintana MD [address] [place] [address] Lainey Simon, JAY [address] [place] [address] 11/24/2023 10:40 AM CDT Office Visit [facility] [address] [place] [phone] Abby Vasquez MD [address] [place] [address] 01/13/2024 10:00 AM CDT Virtual Visit [facility] [address] 3rd [place] [phone] Rosalba Pendleton, MAXIMILIANO [address] [id number] [place], [place] [address] 01/20/2024 8:00 PM CDT Therapy Visit [facility] [address] [phone] 03/14/2024 10:30 AM CDT Office Visit [facility] [address] [address] Abhishek Acevedo PA-C [address] [address] 03/21/2024 11:30 AM CDT Office Visit [facility] [address] [place] [address] Zain Quintana MD 500 [place] [address] documented as of this encounter Visit Diagnoses Not on filedocumented in this encounter Additional Health Concerns Assessment Noted Time PHQ-9 Depression Total Score: 11 022 11:52 AM CDT documented as of this encounter Care Teams Canvas Goods Maker Relationship Specialty Start Date End Date Monty Musa MD [facility] [address] [place] [address] PCP - General Family Medicine 08/13/21 Alfonso Tang [facility] [address] [place] [address] Family Practice 08/13/21 Dayanara Bee MD [address] [facility] 75 [place] [address] Pediatrics 12/26/14 Min Lange MD [address] [facility] 75 [place] [address] Neurology 03/30/16 Marlo Madsen MD [address] [facility] 508 [place] [address] Cardiology 10/27/16 Mel Buckley, RN Nurse Coordinator Physical Medicine and Rehabilitation 12/02/16 Douglas Cadet MD 500 [place], [place] 9[address] Gastroenterology 08/13/21 Rosalba Pendleton APRN CHOKER HOOKER [address] [place] [address] [place] [address] Nurse Practitioner Neurology 09/05/21 Rosalba Pendleton APRN CHOKER HOOKER [address] [place] [address] [id number] [place] [address] Assigned Neuroscience Provider 11/09/21 Douglas Cadet MD [address] [place] [address] [id number] Assigned Gastroenterology Provider 03/14/22 09/03/23 Marlo Madsen MD [address] [place] [address] 508 [place], [place] [phone] Assigned Heart and Vascular Provider 03/14/22 Abby Vasquez MD [address] [place] [address] 363[address] Gastroenterology 07/16/22 Abby Vasquez MD [address] [place] [address] 136975 Assigned PCP 09/26/22 documented as of this encounter
--- OUTSIDE RECORDS SUMMARY | 2023-09-27 15:47 | XMS_ITS | Encounter Summary ---
Author Name Unknown Organization [place] Address [address] [place] [address] Care Team Providers Care Television Host Name Role Phone Monty Musa MD Primary Care Provider [phone] Alfonso Tang Unavailable Unavailable Dayanara Bee MD Unavailable [phone] Min Lange MD Unavailable Unavailable Marlo Madsen MD Unavailable [phone] Mel Buckley RN Unavailable [phone] Douglas Cadet MD Unavailable [phone] Rosalba Pendleton APRN MANAGER OF MAINTENANCE Unavaila ble Rosalba Pendleton APRN MANAGER OF MAINTENANCE Unavaila ble Douglas Cadet MD Unavailable [phone] Marlo Madsen MD Unavailable [phone] Abby Vasquez MD Unavailable Abby Vasquez MD Unavailable Reason for Visit * Reason Onset Date Comments Appointment 05/10/2023 07/14/2023 Encounter Details Date Type Department Care Team (Late st Contact Info) Description 05/10/2023 [facility] [place] [address] [place] [phone] Abby Vasquez MD 909 [place], [place] [phone] Appointment (07/14/2023) Social History Tobacco Use Types Packs/Day Years [...] Sex Assigned at Female 10/31/2021 7:59 AM STARTING GATE DRIVER Gender Identity Female 10/31/2021 7:59 AM STARTING GATE DRIVER Sexual Orientation Straight 10/31/2021 7: 59 AM STARTING GATE DRIVER COVID-19 Exposure Response Date Recorded In the last 10 days, have yo u been in contact with someone who was confirmed or suspected to have Coronavirus/COVID-19? Unable to assess 04/27/2023 10:12 AM CDT documented as of this encounter Miscellaneous Notes * Telephone Encounter - Jenny Keita - 05/10/2023 2:11 PM CDT Unit Educator is reaching out to Pt to see if Pt's appointment on 07/14/2023 at 8:40am with Dr. Vasquez can be changed to 07/21/2023 at 8:40am, per clinic change in schedule. Unit Educator called and left message for the Pt, along with call back number. documented in this encounter Plan of Treatment Upcoming Encounters Date Type Department Care Team (Late st Contact Info) Description 09/29/2023 9:30 AM STARTING GATE DRIVER Ancillary Procedure [address] [place] [address] Zain Quintana MD 500 [place], [place] [address] 10/01/2023 9:30 AM STARTING GATE DRIVER Ancillary Procedure [facility] [address] [place] [phone] Zain Quintana MD 500 [place] [address] 10/18/2023 PRE VISIT [facility] [address] [phone] Airam Hodges PA-C 500 [place], [place] [address] Previsit 10/21/2023 11:30 AM STARTING GATE DRIVER Therapy Visit [address] [place], [place] [address] Zain Quintana MD 500 [place], [place] [address] L[place], [place] [id number] [place] [address] 10/26/2023 1:00 PM STARTING GATE DRIVER Virtual Visit [facility] [address] [phone] Latricia Pettit PA-C [address] [place] [address] 10/28/2023 10:50 AM STARTING GATE DRIVER Therapy Visit [address] 300 [place], [place] [address] Zain Quintana MD 500 [place], [place] [address] Lain[place], [place] [address] [place] [address] 11/04/2023 10:50 AM STARTING GATE DRIVER Therapy Visit [facility] [address] [facility] [address] [place] [address] Zain Quintana MD [address] [place] [address] Lainey Simon, JAY [address] [place] [address] 11/24/2023 10:40 AM CDT Office Visit [facility] [address] [place] [phone] Abby Vasquez MD [address] [place] [address] 01/13/2024 10:00 AM CDT Virtual Visit [facility] [address] 3rd [place] [phone] Rosalba Pendleton APRN [address] KV7030ME [place] [address] 01/20/2024 8:00 PM CDT Therapy Visit [facility] [address] [phone] 03/14/2024 10:30 AM CDT Office Visit [facility] [address] [address] Abhishek Acevedo PA-C 6363 [facility] 103 [place] [address] 03/21/2024 11:30 AM CDT Office Visit [facility] [place] 9[address] [facility] 4th [place] [phone] Zain Quintana MD 500 [place], [place] [address]135 documented as of this encounter Visit Diagnoses Not on filedocumented in this encounter Additional Health Concerns Assessment Noted Time PHQ-9 Depression Total Score: 11 022 11:52 AM CDT documented as of this encounter Care Teams Television Host Relationship Specialty Start Date End Date Monty Musa MD [facility] [address] [place] [address] PCP - General Family Medicine 08/13/21 Alfonso Tang [facility] [address] [place] [address] Family Practice 08/13/21 Dayanara Bee MD 420 [facility] 75 [place] [address] Pediatrics 12/26/14 Min Lange MD 420 [facility] 75 [place] [address] Neurology 03/30/16 Marlo Madsen MD [address] [place] [address] 508 [place] [address] Cardiology 10/27/16 Mel Buckley, RN Nurse Coordinator Physical Medicine and Rehabilitation 12/02/16 Douglas Cadet MD [address] [place] [address] Gastroenterology 08/13/21 Rosalba Pendleton APRN MANAGER OF MAINTENANCE [address] [place] [address] [address] Nurse Practitioner Neurology 09/05/21 Rosalba Pendleton APRN MANAGER OF MAINTENANCE [address] [place] [address] Assigned Neuroscience Provider 11/09/21 Douglas Cadet MD [address] [place] [address] Assigned Gastroenterology Provider 03/14/22 09/03/23 Marlo Madsen MD [address] [place] [address] 508 [place] [address] Assigned Heart and Vascular Provider 03/14/22 Abby Vasquez MD [address] [place] [address] Gastroenterology 07/16/22 Abby Vasquez MD [address] [place] [address] Assigned PCP 09/26/22 documented as of this encounter
--- OUTSIDE RECORDS SUMMARY | 2023-09-27 15:47 | XMS_ITS | Encounter Summary ---
Author Name Unknown Organization [place] Address [address] [facility] [place] [address] Care Team Providers Care Marble Ceiling Installer Name Role Phone Monty Musa MD Primary Care Provider [phone] Alfonso Tang Unavailable Unavailable Dayanara Bee MD Unavailable [phone] Min Lange MD Unavailable Unavailable Marlo Madsen MD Unavailable [phone] Mel Buckley RN Unavailable [phone] Douglas Cadet MD Unavailable [phone] Rosalba Pendleton APRN ORDER ENTRY REPRESENTATIVE Unavaila ble Rosalba Pendleton APRN ORDER ENTRY REPRESENTATIVE Unavaila ble Douglas Cadet MD Unavailable [phone] Marlo Madsen MD Unavailable [phone] Abby Vasquez MD Unavailable Abby Vasquez MD Unavailable Airam Hodges PA-C Unavailable [phone] Encounter Details Date Type Department Care Team (Late st Contact Info) Description 05/05/2023 [facility] [place] [address] [phone] Latricia Pettit PA-C [address] [place] [address] [phone] Social History Tobacco Use Types Packs/Day Years Used Date Smoking Tobacco: Never Smokeless Tobacco: Never Alcohol Use Standard Drinks/Week Comments No 0 (1 standard drink = 0.6 oz pur e alcohol) PHQ-2 Answer Date Recorded PHQ-2 Score 2 04/02/2023 Sex and Gender Information Value Date Recorded Sex Assigned at Female 10/31/2021 7:59 AM DIE POLISHER Gender Identity Female 10/31/2021 7:59 AM DIE POLISHER Sexual Orientation Straight 10/31/2021 7: 59 AM DIE POLISHER COVID-19 Exposure Response Date Recorded In the last 10 days, have yo u been in contact with someone who was confirmed or suspected to have Coronavirus/COVID-19? Unable to assess 04/27/2023 10:12 AM CDT documented as of this encounter Plan of Treatment Upcoming Encounters Date Type Department Care Team (Late st Contact Info) Description 09/29/2023 9:30 AM DIE POLISHER Ancillary Procedure [place] [address] [place] [phone] Zain Quintana MD [address] [place] [address] 7[address]95 10/01/2023 9:30 AM DIE POLISHER Ancillary Procedure [facility] [address] [place] [phone] Zian Quintana MD [address] [place] [address] 912145 10/18/2023 PRE VISIT [facility] [address] [address] Airam Hodges PA-C [address] [place] [address] [phone] Previsit 10/21/2023 11:30 AM DIE POLISHER Therapy Visit [address] [address] Zain Quintana MD [address] [place] [address] Lainey Simon, PT [address] [place] [address] 10/26/2023 1:00 PM DIE POLISHER Virtual Visit [facility] [address] [phone] Latricia Pettit PA-C [address] [place] [address] 10/28/2023 10:50 AM DIE POLISHER Therapy Visit [address] [address] Zain Quintana MD [address] [place] [address] Lainey Simon, PT [address] [place] [address] 11/04/2023 10:50 AM DIE POLISHER Therapy Visit [address] [address] Zain Quintana MD [address] [place] [address] Lainey Simon, PT [address] [place] [address] 11/24/2023 10:40 AM CDT Office Visit [facility] [address]th [place] [phone] Abby Vasquez MD [address] [place] [address] 042535 01/13/2024 10:00 AM CDT Virtual Visit [facility] [address] [place] [phone] Rosalba Pendleton, TICKET TAKER FERRYBOAT ORDER ENTRY REPRESENTATIVE [address] [place] [address] EL1581IS [place], [place] [address] 01/20/2024 8:00 PM CDT Therapy Visit [facility] [address] [phone] 03/14/2024 10:30 AM CDT Office Visit [facility] [address] [phone] Abhishek Acevedo PA-C [address] [id number] 03/21/2024 11:30 AM CDT Office Visit [facility] [address] [phone] Zain Quintana MD [address] [place] [address] documented as of this encounter Visit Diagnoses Not on filedocumented in this encounter Additional Health Concerns Assessment Noted Time PHQ-9 Depression Total Score: 11 05/28/ 022 11:52 AM CDT documented as of this encounter Care Teams Marble Ceiling Installer Relationship Specialty Start Date End Date Monty Musa MD [facility] [address] [facility] [place] [address] PCP - General Family Medicine 08/13/21 Alfonso Tang [facility] [address] [place] [address] [facility] 08/13/21 Dayanara Bee MD 420 [facility] 75 [place], [place] [address] Pediatrics 12/26/14 Min Lange MD 420 [facility] 75 [place] [address] Neurology 03/30/16 Marlo Madsen MD 420 [facility] 508 [place] [address] Cardiology 10/27/16 Mel Buckley, DIAZ Nurse Coordinator Physical Medicine and Rehabilitation 12/02/16 Douglas Cadet MD 500 [place], [place] 2239[address] MD Gastroenterology 08/13/21 Rosalba Pendleton APRN ORDER ENTRY REPRESENTATIVE [address] [place], [place] [address]J [place], [place] [address] Nurse Practitioner Neurology 09/05/21 Rosalba Pendleton APRN ORDER ENTRY REPRESENTATIVE [address] [place], [place] [address] [place], [place] [address] Assigned Neuroscience Provider 11/09/21 Douglas Cadet MD 500 [place] [address] Assigned Gastroenterology Provider 03/14/22 09/03/23 Marlo Madsen MD 420 [facility] 508 [place], [place] 9[address] Assigned Heart and Vascular Provider 03/14/22 Abby Vasquez MD [address] [place] [address] 982345 Gastroenterology 07/16/22 Abby Vasquez MD [address] [place] [address] 962255 Assigned PCP 09/26/22 Airam Hodges PA-C [address] [place] [address] [phone] Physician Sawmilling Operator Surgery 07/19/23 documented as of this encounter
--- OUTSIDE RECORDS SUMMARY | 2023-09-27 15:48 | XMS_ITS | Encounter Summary ---
Author Name Unknown Organization [place] Address [address] [facility] [place] [address] Care Team Providers Care Tool Maintenance Technician Name Role Phone Monty Musa MD Primary Care Provider [phone] Alfonso Tang Unavailable Unavailable Dayanara Bee MD Unavailable [phone] Min Lange MD Unavailable Unavailable Marlo Madsen MD Unavailable [phone] Mel Buckley RN Unavailable [phone] Douglas Cadet MD Unavailable [phone] Rosalba Pendleton APRN TRIGONOMETRY TUTOR Unavaila ble Rosalba Pendleton APRN TRIGONOMETRY TUTOR Unavaila ble Douglas Cadet MD Unavailable [phone] Marlo Madsen MD Unavailable [phone] Abby Vasquez MD Unavailable Abby Vasquez MD Unavailable Encounter Details Date Type Department Care Team (Latest Contact Info) Description 12/09/2022 Travel Social History Tobacco Use Types Packs/Day Years Used Date Smoking Tobacco: Never Smokeless Tobacco: Never Alcohol Use Standard Drinks/Week Comments No 0 (1 standard drink = 0.6 oz pur e alcohol) PHQ-2 Answer Date Recorded PHQ-2 Score 1 12/09/2022 Sex and Gender Information Value Date Recorded Sex Assigned at Female 10/31/2021 7:59 AM TRANSPORTATION DESIGN ENGINEER Gender Identity Female 10/31/2021 7:59 AM TRANSPORTATION DESIGN ENGINEER Sexual Orientation Straight 10/31/2021 7: 59 AM TRANSPORTATION DESIGN ENGINEER COVID-19 Exposure Response Date Recorded In the last 10 days, have yo u been in contact with someone who was confirmed or suspected to have Coronavirus/COVID-19? No / Unsure 12/09/2022 1:53 PM CDT documented as of this encounter Plan of Treatment Upcoming Encounters Date Type Department Care Team (Late st Contact Info) Description 09/29/2023 9:30 AM TRANSPORTATION DESIGN ENGINEER Ancillary Procedure [facility] [address] [place] [phone] Zain Quintana MD [address] [place], [place] [address] 10/01/2023 9:30 AM TRANSPORTATION DESIGN ENGINEER Ancillary Procedure [facility] [address] [place] [phone] Zain Quintana MD [address] [place], [place] [id number] 10/18/2023 PRE VISIT [facility] [address] 4th [place] [phone] Airam Hodges PA-C 500 [place], [place] [address] Previsit 10/21/2023 11:30 AM TRANSPORTATION DESIGN ENGINEER Therapy Visit [facility] Rehabilitation Services [facility] [address] [facility] [address] [place] [address] Zain Quintana MD [address] [place], [place] [address] Lainey Simon, JAY [address] [place] [address] 10/26/2023 1:00 PM TRANSPORTATION DESIGN ENGINEER Virtual Visit [facility] [address] [phone] Latricia Pettit PA-C [address] [place] [address] 10/28/2023 10:50 AM TRANSPORTATION DESIGN ENGINEER Therapy Visit [address] [address] Zain Quintana MD [address] [place] [address] Lainey Simon, JAY [address] [place] [address] 11/04/2023 10:50 AM TRANSPORTATION DESIGN ENGINEER Therapy Visit [address] [address] Zain Quintana MD [address] [place] [address] Lainey Simon PT [address] [place] [address] 11/24/2023 10:40 AM CDT Office Visit [facility] [address] [phone] Abby Vasquez MD [address] [place] [address] 01/13/2024 10:00 AM CDT Virtual Visit [facility] Neurology [facility] [address] 3rd [place] [phone] Rosalba Pendleton APRN [address] [id number] [place] [address] 01/20/2024 8:00 PM CDT Therapy Visit [facility] Sleep [facility] [address] [phone] 03/14/2024 10:30 AM CDT Office Visit [facility] [address] [address] Abhishek Acevedo PA-C [address] [facility] 103 [place], [place] [phone] 03/21/2024 11:30 AM CDT Office Visit [facility] [address] 4th [place] [phone] Zain Quintana MD [address] [place] [address] 264425 documented as of this encounter Visit Diagnoses Not on filedocumented in this encounter Additional Health Concerns Assessment Noted Time PHQ-9 Depression Total Score: 11 022 11:52 AM CDT documented as of this encounter Care Teams Tool Maintenance Technician Relationship Specialty Start Date End Date Monty Musa MD [facility] [address] [place] [address] PCP - General Family Medicine 08/13/21 Alfonso Tang [facility] [address] [place] [address] Family Practice 08/13/21 Dayanara Bee MD [address] [place] [address] 75 [place] [address] Pediatrics 12/26/14 Min Lange MD [address] [facility] 75 [place] [address] Neurology 03/30/16 Marlo Madsen MD [address] [address] Cardiology 10/27/16 Mel Buckley, RN Nurse Coordinator Physical Medicine and Rehabilitation 12/02/16 Douglas Cadet MD [address] [place] [address] Gastroenterology 08/13/21 Rosalba Pendleton APRN TRIGONOMETRY TUTOR [address] [place] [address] Nurse Practitioner Neurology 09/05/21 Rosalba Pendleton APRN TRIGONOMETRY TUTOR [address] [place] [address] Assigned Neuroscience Provider 11/09/21 Douglas Cadet MD [address] [place] [address] Assigned Gastroenterology Provider 03/14/22 09/03/23 Marlo Madsen MD [address] [place] [address] Assigned Heart and Vascular Provider 03/14/22 Abby Vasquez MD [address] [place] [address] Gastroenterology 07/16/22 Abby Vasquez MD [address] [place] [address] Assigned PCP 09/26/22 documented as of this encounter
--- OUTSIDE RECORDS SUMMARY | 2023-09-27 15:48 | XMS_ITS | Encounter Summary ---
Author Name Unknown Organization [place] Address [address] [facility] [place] [address] Care Team Providers Care Bleach Liquor Maker Name Role Phone Monty Musa MD Primary Care Provider [phone] Alfonso Tang Unavailable Unavailable Dayanara Bee MD Unavailable [phone] Min Lange MD Unavailable Unavailable Albert Gee MD Unavailable [phone] Mel Buckley RN Unavailable [phone] Douglas Cadet MD Unavailable [phone] Rosalba Pendleton APRN [facility]NER Unavaila ble Rosalba Pendleton APRN DEHORNER Unavaila ble Douglas Cadet MD Unavailable [phone] Albert Gee MD Unavailable [phone] Abby Vasquez MD Unavailable Abby Vasquez MD Unavailable Reason for Referral * CV Testing (Routine) - Pending Review Specialty Diagnoses / Procedures Referred By Contac t Referred To Contact Diagnoses Syncope and collapse Palpitations Vasovagal syncope Procedures Cardiac Event Monitor Adult/Pediatric Albert Gee MD [address] [address] Referral ID Status Reason Start Date Expiration Date V isits Requested Visits Authorized Pending Review 01/19/2023 01/19/2024 1 1 * Consultation (Routine: Next available opening) - Pending Review Specialty Diagnoses / Procedures Referred By Contac t Referred To Contact Cardiovascular Disease Diagnoses Syncope and collapse Palpitations Vasovagal syncope Albert Gee MD [address] [place] [address] Referral ID Status Reason Start Date Expiration Date V isits Requested Visits Authorized Pending Review 01/19/2023 01/19/20[address] Gee in 2-3 months Question Answer Follow-up with: Self Scheduling Instructions: [facility] will call you to coordinate your care as prescribed by your provider. If you have concerns about scheduling, please call [phone]. Comments [facility] will call you to coordinate your care as prescribed by your provider. If you have concerns about scheduling, please call [phone]. Reason for Visit * Reason Comments Follow Up * Consultation (Routine: Next available opening) - Closed Specialty Diagnoses / Procedures Referred By Emily jenkins Referred To Contact Cardiovascular Disease Diagnoses Vasovagal syncope Albert Gee MD [address] [place] [address] Referral ID Status Reason Start Date Expiration Date Visits Re quested Visits Authorized [id number] Closed 03/03/2022 03/03/2023 1 1 Encounter Details Date Type Department Care Team (Late st Contact Info) Description 01/19/2023 12:30 PM CDT Virtual Visit [facility] [address] [phone] Albert Gee MD [address] [place] [id number] Syncope and collapse (Primary Dx); Palpitations; Vasovagal syncope Social History Tobacco Use Types Packs/Day Years Used Date Smoking Tobacco: Never Smokeless Tobacco: Never Alcohol Use Standard Drinks/Week Comments No 0 (1 standard drink = 0.6 oz pur e alcohol) PHQ-2 Answer Date Recorded PHQ-2 Score 2 01/19/2023 Sex and Gender Information Value Date Recorded Sex Assigned at Female 10/31/2021 7:59 AM BIBLE WORKER Gender Identity Female 10/31/2021 7:59 AM BIBLE WORKER Sexual Orientation Straight 10/31/2021 7: 59 AM BIBLE WORKER documented as of this encounter Patient Instructions * Patient Instructions* Juliana Edwards RN - 01/19/2023 12:30 PM CDT Images from the original note were not included. You were seen in the Electrophysiology Clinic today by: Dr Gee Plan: Medication Changes: START- Midodrine 5mg twice a day, not to be taken within 4 hours of lying down Labs/Tests Needed: 30 day Zamzee event monitor - to be mailed to patient Follow up Visit: 2-3 months If you have further questions, please utilize Fanchimp to contact us. Your Care Team: EP Cardiology Telephone Number Nurse Line DIAZ Linder RN For scheduling appointments: Leslie For procedure scheduling: Lizet Laguna For the Device Clinic (Pacemakers, ICDs, Loop Recorders) During business hours: [phone] After business hours: [phone]- select option 4 and ask for job code [id number]. On-call texture artist for after hours or on weekends: [phone], option #4, and ask to speak to the on-call texture artist. Cardiovascular Clinic: [address] [place] [address]. [place] [address] As always, Thank you for trusting us with your health care needs! documented in this encounter Progress Notes * Albert Gee MD - 01/19/2023 12:30 PM CDT Images from the original note were not included. Virtual Visit Details Type of service: Video Visit HPI: Latricia is a 32-year-old woman with recurrent vasovagal faints. She does not recognize a consistent trigger. She continues to take fludrocortisone 0.1 daily Since her last visit Latricia indicates that the episodes of fainting have substantially diminished and she has an episode every month or so. However she continues to have near syncopal events consequently I suggested that we add midodrine at a modest dose to try and get a better outcome. Apart from her syncopal symptoms Latricia has noted some palpitations which were picked up on her Fitbit as abrupt increases in heart rate from resting levels to about 110 or so with minimal to moderateactivity. I recommended that we look into this with a conventional heart monitor and try to ascertain what rhythm she is sensing. Most likely than not its supraventricular ectopy and I reassured her in that regard. We will revisit the monitor and response to midodrine later this year. PAST MEDICAL HISTORY: Past Medical History: Diagnosis [...] Outpatient Medications Medication Sig Dispense Refill ??? AIMOVIG 140 [...] Take 50 mg by mouth daily ??? KURVELO 0.15-30 MG-MCG tablet Take 0.15-30 tablets by mouth ??? linaclotide (LINZESS) 290 MCG capsule Take 1 capsule (290 mcg) by mouth every morning (before breakfast) 30 capsule 1 ??? ondansetron (ZOFRAN ODT) 4 MG [...] in 24 hours) 20 tablet 9 ??? clonazePAM (KLONOPIN) 0.5 MG tablet Take 0.5 mg by mouth as needed ??? diazepam (VALIUM) 5 MG tablet Take 1 tablet (5 mg) by mouth every 6 hours as needed for muscle spasms (Patient not taking: Reported on 08/19/2022) 6 tablet 0 ??? ipratropium (ATROVENT) 0.03 % nasal spray (Patient not taking: Reported on 01/19/2023) ??? lubiprostone (AMITIZA) 24 MCG capsule Take 1 capsule (24 mcg) by mouth 2 times daily (with meals) (Patient not taking: Reported on 12/09/2022) 120 capsule 3 ??? lubiprostone (AMITIZA) 8 MCG capsule Take 1 capsule (8 mcg) by mouth 2 times daily (Patient nottaking: Reported on 12/09/2022) 60 capsule 0 ??? lubiprostone (AMITIZA) 8 MCG capsule Take 1 capsule (8 mcg) by mouth 2 times daily (Patient nottaking: Reported on 08/19/2022) 60 capsule 0 ??? meclizine (ANTIVERT) 25 MG tablet TAKE 1 TABLET BY MOUTH THREE TIMES DAILY (Patient not taking:Reported on 08/19/2022) PAST SURGICAL HISTORY: Past Surgical History: Procedure [...] OF ABDOMEN ALLERGIES: Allergies Allergen Reactions ??? Amoxicillin-Pot Clavulanate GI Disturbance ??? Vicodin Hp [Hydrocodone-Acetaminophen] FAMILY HISTORY: Family History [...] History Tobacco Use ??? Smoking status: Never ??? Smokeless tobacco: Never Substance Use Topics ??? Alcohol use: No [...] significant heat or cold intolerance Musculoskeletal: No myalgia or other rheumatologic complaint this time. Exam: [facility] 10/11/2022 (Approximate) GENERAL APPEARANCE: healthy, alert and no distress HEENT: no icterus,no central cyanosis NECK: JVP not elevated RESPIRATORY:no rales, rhonchi or wheezes, no use of accessory muscles, no retractions, respirationsare unlabored, normal respiratory rate NEURO: alert and oriented to person/place/time, normal speech,and affect. SKIN: no ecchymoses, no rashes Labs: [...] found for: INR Procedures: PULMONARY FUNCTION TESTS: View : No data to display. ECHOCARDIOGRAM: No results found for this or any previous visit (from the past 8760 hour(s)). Assessment and Plan: 1. Recurrent syncopal episodes-vasovagal by history-improved on current therapy but still having presyncopal events 2. Palpitations of unknown etiology Plan 1. Add midodrine 5 mg twice daily-send prescription to Pharmacy in [facility]-3-month supply, 4 refills 2. Arrange for Biotel heart monitor for 1 month to assess palpitations 3. Follow-up video visit to be arranged after Biotel recording is complete- approximately 2 to 3 months Total elapsed time today with chart review, video visit and documentation 30 minutes Video on 12: 20; off 12: 35 Platform Doximity Patient at home; clinic [facility] heart I very much appreciated the opportunity to see and assess Latricia Hatch in the clinic today. [place] not hesitate to contact my office if you have any questions or concerns. Albert Gee MD Cardiac Arrhythmia Service [facility] [phone] CC ALBERT GEE documented in this encounter Nursing Notes * Brit Johnson MA - 01/19/2023 12:30 PM CDT Is the patient currently in the state of [place]? YES Visit mode:VIDEO If the visit is dropped, the patient can be reconnected by: VIDEO VISIT: Text to cell phone: [phone] Will anyone else be joining the visit? NO How would you like to obtain your AVS? MyChart Are changes needed to the allergy or medication list? YES: Pt flagged medications for removal during e check in, please review/remove Reason for visit: Follow Up SUE Villa/WAYNE documented in this encounter Miscellaneous Notes * Addendum Note - Juliana Edwards RN - 01/19/2023 12:30 PM CDTAddended by: JULIANA EDWARDS on: 01/19/2023 01:37 PM Modules accepted: Orders documented in this encounter Plan of Treatment Upcoming Encounters Date Type Department Care Team (Late st Contact Info) Description 09/29/2023 9:30 AM BIBLE WORKER Ancillary Procedure [facility] [address] [facility] [address] [place] [phone] Zain Quintana MD [address] [place], [place] [address] 10/01/2023 9:30 AM BIBLE WORKER Ancillary Procedure [facility] [address] [facility] [address] [place] [phone] Zain Quintana MD [address] [place], [place] [phone] 10/18/2023 PRE VISIT [facility] [address] [phone] Airam Hodges PA-C 500 [place], [place] [address] Previsit 10/21/2023 11:30 AM BIBLE WORKER Therapy Visit [facility] [address] [facility] 300 [place] [address] Zain Quintana MD [address] [place], [place] 7[address] [place] [address] [place] [address] 10/26/2023 1:00 PM BIBLE WORKER Virtual Visit [facility] [address] [phone] Latricia Pettit PA-C [address] [place] [address] 10/28/2023 10:50 AM BIBLE WORKER Therapy Visit [address] [address] Zain Quintana MD [address] [place] [address] Lainey Simon, PT [address] [place] [address] 11/04/2023 10:50 AM BIBLE WORKER Therapy Visit [address] [address] Zain Quintana MD [address] [place] [address] Lainey Simon, PT [address] [place] [address] 11/24/2023 10:40 AM CDT Office Visit [facility] [address] [place] [phone] Abby Vasquez MD [address] [place] [address] 01/13/2024 10:00 AM CDT Virtual Visit [facility] Neurology [facility] [address] [place] [phone] Rosalba Pendleton APRN [address] TL5208QP [place], [place] [address] 01/20/2024 8:00 PM CDT Therapy Visit [facility] [address] [place] [address] [place] [phone] 03/14/2024 10:30 AM CDT Office Visit [facility] 6363 [facility] 103 [place] [phone] Abhishek Acevedo PA-C 5[address] [facility] 103 [place] [id number] 03/21/2024 11:30 AM CDT Office Visit [facility] [address] 4th [place] [address] Zain Quintana MD [address] [place] [address] Scheduled Referrals Name Type Priority Associated Diagnoses Orde r Schedule Follow-Up with Cardiology Referral Routine: Next available opening Syncope and collapse Palpitations Vasovagal syncope Expected: 04/21/2023 (Approximate), Expires: 01/20/2024 documented as of this encounter Results * Cardiac Event Monitor Adult/Pediatric (01/21/2023) Anatomical Region Laterality Modality Other Albert Gee MD CV CARDIAC SERVICE S ORDERABLES documented in this encounter Visit Diagnoses Diagnosis Syncope and collapse- Primary Palpitations Vasovagal syncope Syncope and collapse documented in this encounter Additional Health Concerns Assessment Noted Time PHQ-9 Depression Total Score: 11 022 11:52 AM CDT documented as of this encounter Care Teams Bleach Liquor Maker Relationship Specialty Start Date End Date Monty Musa MD [facility] [address] [place] [place] [address] PCP - General Family Medicine 08/13/21 Alfonso Tang [facility] [address] [place] [address] [facility] Practice 08/13/21 Dayanara Bee MD [address] [phone] Pediatrics 12/26/14 Min Lange MD [address] [address] Neurology 03/30/16 Albert Gee MD [address] [place] [address] 727995 Cardiology 10/27/16 Mel Buckley RN Nurse Coordinator Physical Medicine and Rehabilitation 12/02/16 Douglas Cadet MD [address] [place], [place] 54[address] Gastroenterology 08/13/21 Rosalba Pendleton APRN [facility] [address] [place] [address] [phone] Nurse Practitioner Neurology 09/05/21 Rosalba Pendleton APRN [facility] [address] [place] [address] [phone] Assigned Neuroscience Provider 11/09/21 Douglas Cadet MD [address] [place], [place] [address] Assigned Gastroenterology Provider 03/14/22 09/03/23 Albert Gee MD [address] [place] [address] [phone] Assigned Heart and Vascular Provider 03/14/22 Abby Vasquez MD [address] [place], [place] [address] Gastroenterology 07/16/22 Abby Vasquez MD [address] [place], [place] [address] Assigned PCP 09/26/22 documented as of this encounter
--- OUTSIDE RECORDS SUMMARY | 2023-09-27 15:48 | XMS_ITS | Encounter Summary ---
Author Name Unknown Organization [place] Address [address] [place] [address] Care Team Providers Care Mining Consultant Name Role Phone Monty Musa MD Primary Care Provider [phone] Alfonso Tang Unavailable Unavailable Dayanara Bee MD Unavailable [phone] Min Lange MD Unavailable Unavailable Marlo Madsen MD Unavailable [phone] Mel Buckley RN Unavailable [phone] Douglas Cadet MD Unavailable [phone] OFFICER Unavaila ble Rosalba Pendleton APRN COURT OFFICER Unavaila ble Douglas Cadet MD Unavailable [phone] Marlo Madsen MD Unavailable [phone] Abby Vasquez MD Unavailable Abby Vasquez MD Unavailable Reason for Visit * Reason Onset Date Comments Biotel send out 01/20/2023 Encounter Details Date Type Department Care Team (Late st Contact Info) Description 01/20/2023 Documentation Only [facility] Heart [address] [address] Marlo Madsen MD 420 [facility] 508 [place], [place] [address] Yohannes send out Social History Tobacco Use Types Packs/Day Years Used Date Smoking Tobacco: Never Smokeless Tobacco: Never Alcohol Use Standard Drinks/Week Comments No 0 (1 standard drink = 0.6 oz pur e alcohol) PHQ-2 Answer Date Recorded PHQ-2 Score 2 01/19/2023 Sex and Gender Information Value Date Recorded Sex Assigned at Female 10/31/2021 7:59 AM LONGWALL SHEARER OPERATOR Gender Identity Female 10/31/2021 7:59 AM LONGWALL SHEARER OPERATOR Sexual Orientation Straight 10/31/2021 7: 59 AM LONGWALL SHEARER OPERATOR documented as of this encounter Progress Notes * Leslie Woo CMA - 01/20/2023 12:00 PM CDT YOHANNES SEND OUT Leslie Umana 01/20 documented in this encounter Plan of Treatment Upcoming Encounters Date Type Department Care Team (Late st Contact Info) Description 09/29/2023 9:30 AM LONGWALL SHEARER OPERATOR Ancillary Procedure [address] [place] [phone] Zain Quintana MD [address] [place] [address] 328195 10/01/2023 9:30 AM LONGWALL SHEARER OPERATOR Ancillary Procedure [address] [place] [phone] Zain Quintana MD [address] [place] [address] 815375 10/18/2023 PRE VISIT [facility]al [facility] [place] [address] [facility] 4th [place] [phone] Airam Hodges PA-C [address] [place] [address] Previsit 10/21/2023 11:30 AM LONGWALL SHEARER OPERATOR Therapy Visit [address] [address] Zain Quintana MD [address] [place] [address] Lainey Simon, PT [address] [place] [address] 10/26/2023 1:00 PM LONGWALL SHEARER OPERATOR Virtual Visit [facility] Gastroenterology [facility] [address] [phone] Latricia Pettit PA-C [address] [place] [address] 10/28/2023 10:50 AM LONGWALL SHEARER OPERATOR Therapy Visit [address] [address] Zain Quintana MD [address] [place] [address] Lainey Simon, PT [address] [place] [address] 11/04/2023 10:50 AM LONGWALL SHEARER OPERATOR Therapy Visit [address] [address] Zain Quintana MD [address] [place] [address] Lainey Simon, PT [address] [place] [address] 11/24/2023 10:40 AM CDT Office Visit [facility] Gastroenterology [facility] [address] 4th [place] [phone] Abby Vasquez MD [address] [place] [address] 994595 01/13/2024 10:00 AM CDT Virtual Visit [facility] Neurology Clinic [address] [phone] Rosalba Pendleton APRN [address] [place], [place] [address] 01/20/2024 8:00 PM CDT Therapy Visit [facility] Sleep [address] [phone] 03/14/2024 10:30 AM CDT Office Visit [address] [address] Abhishek Acevedo PA-C [address] [address] 03/21/2024 11:30 AM CDT Office Visit [facility] [address] [phone] Zain Quintana MD [address] [place] [address] [phone] documented as of this encounter Visit Diagnoses Not on filedocumented in this encounter Additional Health Concerns Assessment Noted Time PHQ-9 Depression Total Score: 11 05/28/2 022 11:52 AM CDT documented as of this encounter Care Teams Mining Consultant Relationship Specialty Start Date End Date Monty Musa MD [facility] [address] [place] [address] PCP - General Family Medicine 08/13/21 Alfonso Tang [facility] [address] [place] [address] [facility] 08/13/21 Dayanara Bee MD [address] [facility] 75 [place], [place] 596865 Pediatrics 12/26/14 Min Lange MD [address] [address] Neurology 03/30/16 Marlo Madsen MD 420 [facility] 508 [place], [place] 07[address] Cardiology 10/27/16 Mel Buckley, RN Nurse Coordinator Physical Medicine and Rehabilitation 12/02/16 Douglas Cadet MD [address] [place] [address] 564015 Gastroenterology 08/13/[address] COURT OFFICER [address] [place], [place] [address]J [place], [place] 35[address] Nurse Practitioner Neurology 09/05/[address]N COURT OFFICER [address] [place] [address] 643715 Assigned Neuroscience Provider 11/09/21 Douglas Cadet MD [address] [place] [address] [phone] Assigned Gastroenterology Provider 03/14/22 09/03/23 Marlo Madsen MD [address] [place] [address] 508 [place] [address] Assigned Heart and Vascular Provider 03/14/22 Abby Vasquez MD [address] [place] [address] Gastroenterology 07/16/22 Abby Vasquez MD [address] [place] [address] [phone] Assigned PCP 09/26/22 documented as of this encounter
--- OUTSIDE RECORDS SUMMARY | 2023-09-27 15:48 | XMS_ITS | Encounter Summary ---
Author Name Unknown Organization [place] Address [address] [facility] [address] Care Team Providers Care Sander Hand Name Role Phone Monty Musa MD Primary Care Provider [phone] Alfonso Tang Unavailable Unavailable Dayanara Bee MD Unavailable [phone] Min Lange MD Unavailable Unavailable Marlo Madsen MD Unavailable [phone] Mel Buckley RN Unavailable [phone] Douglas Cadet MD Unavailable [phone] Rosalba Pendleton APRN ENTRY LEVEL MANAGER Unavaila ble Rosalba Pendleton APRN ENTRY LEVEL MANAGER Unavaila ble Douglas Cadet MD Unavailable [phone] Marlo Madsen MD Unavailable [phone] VisAbby kathleen MD Unavailable Abby Vasquez MD Unavailable Reason for Visit * Reason Onset Date Comments Results 04/04/2023 Was told they wo uld get the test results for covid test, wasn't avail on mychart. Wants to know the results Encounter Details Date Type Department Care Team (Late Contact Info) Description 04/04/2023 Telephone [facility] [address] [place] [address] Juliana Cartwright DO [address] [place] [address] Results (Was told they would get the test results for covid test, wasn't avail on mychart. Wants to know the results) Social History Tobacco Use Types Packs/Day Years Used Date Smoking Tobacco: Never Smokeless Tobacco: Never Alcohol Use Standard Drinks/Week Comments No 0 (1 standard drink = 0.6 oz pur e alcohol) PHQ-2 Answer Date Recorded PHQ-2 Score 2 04/02/2023 Sex and Gender Information Value Date Recorded Sex Assigned at Female 10/31/2021 7:59 AM POCKET CUTTER Gender Identity Female 10/31/2021 7:59 AM POCKET CUTTER Sexual Orientation Straight 10/31/2021 7: 59 AM POCKET CUTTER COVID-19 Exposure Response Date Recorded In the last 10 days, have yo u been in contact with someone who was confirmed or suspected to have Coronavirus/COVID-19? No / Unsure 04/03/2023 11:46 AM CDT documented as of this encounter Miscellaneous Notes * Telephone Encounter - Michael Arteaga CMA - 04/05/2023 5:41 PM CDT Talked to patient at 545pm and advised the covid test was NEG.Michael Arteaga CMA * Telephone Encounter - Mirela Keita - 04/04/2023 3:00 PM CDT Test Results Contacts Type Contact Phone/Fax 04/04/2023 03:00 PM CDT Phone (Incoming) Latricia Hatch (Self) [phone] (M) Who ordered the test: Juliana Cartwright Type of test: Lab Date of test: 04/03/23 Where was the test performed: [facility] What are your questions/concerns?: What are the results Could we send this information to you in Elastifile or would you prefer to receive a phone call?: Patient would like to be contacted via Elastifile documented in this encounter Plan of Treatment Upcoming Encounters Date Type Department Care Team (Late st Contact Info) Description 09/29/2023 9:30 AM POCKET CUTTER Ancillary Procedure [facility] 303 [facility] 180 [place] [phone] Zain Quintana MD [address] [place], [place] [address] 10/01/2023 9:30 AM POCKET CUTTER Ancillary Procedure [facility] [address] [facility] [address] [place] [phone] Zain Quintana MD [address] [place], [place] [address] 10/18/[address] [facility] Colon [facility]al Surgery Clinic [address] [address] Airam Hodges PA-C 500 [place], [place] 9[address] Previsit 10/21/2023 11:30 AM POCKET CUTTER Therapy Visit [facility] Rehabilitation Services [facility] [address] [facility] 300 [place] [address] Zain Quintana MD [address] [place], [place] 0[address] [place] [address] [place] [address] 10/26/2023 1:00 PM POCKET CUTTER Virtual Visit [facility] Gastroenterology Clinic [address] [phone] Latricia Pettit PA-C [address] [place] [address] 10/28/2023 10:50 AM POCKET CUTTER Therapy Visit [address] [address] Zain Quintana MD [address] [place] [address] Lainey [place], [place] [phone] [place] [address] 11/04/2023 10:50 AM POCKET CUTTER Therapy Visit [address] [address] Zain Quintana MD [address] [place] [address] Lainey Simon, PT [address] [place] [address] 11/24/2023 10:40 AM CDT Office Visit [facility] Gastroenterology Clinic [address] [place] [phone] Abby Vasquez MD [address] [place] [address] 01/13/2024 10:00 AM CDT Virtual Visit [facility] Neurology Clinic [address]rd [place] [phone] Rosalba Pendleton APRN [address] [id number] [place], [place] [address] 01/20/2024 8:00 PM CDT Therapy Visit [facility] Sleep [facility] 6363 [facility] [address] [place] [phone] 03/14/2024 10:30 AM CDT Office [facility] Sleep [facility] [place] 6[address] [facility] 103 [place] [phone] Abhishek Acevedo PA-C 8924 [facility] 103 [place] [phone] 03/21/2024 11:30 AM CDT Office Visit [facility] Colon [facility]al Surgery [facility] [address] [place] [phone] Zain Quintana MD [address] [place] [address] [phone] documented as of this encounter Visit Diagnoses Not on filedocumented in this encounter Additional Health Concerns Infection Onset Date Last Indicated Resolved Time Rule Out COVID-19 04/03/2023 04/03/2023 04/04/2023 6:30 PM CDT Assessment Noted Time PHQ-9 Depression Total Score: 11 022 11:52 AM CDT documented as of this encounter Care Teams Sander Hand Relationship Specialty Start Date End Date Monty Musa MD [facility] [address] [place] [address] PCP - General Family Medicine 08/13/21 Alfonso Tang [facility] [address] [place] [address] Family Practice 08/13/21 Dayanara Bee MD [address] [place] [address] 75 [place] [address] Pediatrics 12/26/14 Min Lange MD 420 [facility] 75 [place] [address] Neurology 03/30/16 Marlo Madsen MD 420 [facility] 508 [place] [address] Cardiology 10/27/16 Mel Buckley, RN Nurse Coordinator Physical Medicine and Rehabilitation 12/02/16 Douglas Cadet MD 500 [place] [address] Gastroenterology 08/13/21 Rosalba Pendleton APRN ENTRY LEVEL MANAGER [address] [place] [address] 158025 Nurse Practitioner Neurology 09/05/21 Rosalba Pendleton APRN ENTRY LEVEL MANAGER [address] [place] [address] 576635 Assigned Neuroscience Provider 11/09/21 Douglas Cadet MD [address] [place], [place] 38[address]35 Assigned Gastroenterology Provider 03/14/22 09/03/23 Marlo Madsen MD [address] [place] [address] Assigned Heart and Vascular Provider 03/14/22 Abby Vasquez MD [address] [place] [address] Gastroenterology 07/16/22 Abby Vasquez MD 9 [place] [address] Assigned PCP 09/26/22 documented as of this encounter
--- OUTSIDE RECORDS SUMMARY | 2023-09-27 15:48 | XMS_ITS | Encounter Summary ---
Author Name Unknown Organization [place] Address [address] [facility] [place] [address] Care Team Providers Care Underground Production Foreperson Name Role Phone Monty Musa MD Primary Care Provider [phone] Alfonso Tang Unavailable Unavailable Dayanara Bee MD Unavailable [phone] Min Lange MD Unavailable Unavailable Marlo Madsen MD Unavailable [phone] Mel Buckley RN Unavailable [phone] Douglas Cadet MD Unavailable [phone] Rosalba Pendleton APRN FARO DEALER Unavaila ble Rosalba Pendleton APRN FARO DEALER Unavaila ble Douglas Cadet MD Unavailable [phone] Marlo Madsen MD Unavailable [phone] Abby Vasquez MD Unavailable Abby Vasquez MD Unavailable Airam Hodges PA-C Unavailable [phone] Encounter Details Date Type Department Care Team (Late st Contact Info) Description 01/21/2023 [facility] Heart [address] [phone] Marlo Madsen MD 420 [facility] 508 [place], [place] 6[address] Social History Tobacco Use Types Packs/Day Years Used Date Smoking Tobacco: Never Smokeless Tobacco: Never Alcohol Use Standard Drinks/Week Comments No 0 (1 standard drink = 0.6 oz pur e alcohol) PHQ-2 Answer Date Recorded PHQ-2 Score 2 01/19/2023 Sex and Gender Information Value Date Recorded Sex Assigned at Female 10/31/2021 7:59 AM DATA OPERATIONS MANAGER Gender Identity Female 10/31/2021 7:59 AM DATA OPERATIONS MANAGER Sexual Orientation Straight 10/31/2021 7: 59 AM DATA OPERATIONS MANAGER documented as of this encounter Plan of Treatment Upcoming Encounters Date Type Department Care Team (Late st Contact Info) Description 09/29/2023 9:30 AM DATA OPERATIONS MANAGER Ancillary Procedure [address] [place] [phone] Zain Quintana MD 500 [place], [place] [address] 10/01/2023 9:30 AM DATA OPERATIONS MANAGER Ancillary Procedure [facility] 303 [facility] [address] [place] [phone] Zain Quintana MD 500 [place], [place] [address] 10/18/2023 PRE VISIT [facility] Colon and Rectal Surgery Clinic [place] 909 [facility] 4th [place] [phone] Airam Hodges PA-C 500 [place], [place] 565035 Previsit 10/21/2023 11:30 AM DATA OPERATIONS MANAGER Therapy Visit [facility] Rehabilitation Services [facility] [address] [facility] [address] [place] [address] Zain Quintana MD 500 [place] [address] Lainey Simon, PT [address] [place] [address] 10/26/2023 1:00 PM DATA OPERATIONS MANAGER Virtual Visit [facility] Gastroenterology Clinic [address] [phone] Latricia Pettit PA-C [address] [place] [address] 286935 10/28/2023 10:50 AM DATA OPERATIONS MANAGER Therapy Visit [address] [address] Zain Quintana MD [address] [place] [address] Lainey Simon, PT [address] [place] [address] 11/04/2023 10:50 AM DATA OPERATIONS MANAGER Therapy Visit [address] [address] Zain Quintana MD [address] [place] [address] Lainey Simon, PT [address] [place] [address] 368937 11/24/2023 10:40 AM CDT Office Visit [facility] Gastroenterology Clinic [address] [phone] Abby Vasquez MD [address] [place] [address] 01/13/2024 10:00 AM CDT Virtual Visit [facility] Neurology Clinic [address] 3rd [place] [phone] Rosalba Pendleton, EDITORIAL CARTOONIST FARO DEALER [address] [place] [address] [id number] [place] [address] 01/20/2024 8:00 PM CDT Therapy Visit [facility] Sleep [facility] [address] [phone] 03/14/2024 10:30 AM CDT Office Visit [facility] [address] [phone] Abhishek Acevedo PA-C 9841 [facility] 103 [place] [address] 03/21/2024 11:30 AM CDT Office Visit [facility] Colon [facility]al Surgery Clinic [address]th [place] [phone] Zain Quintana MD [address] [place] [address] documented as of this encounter Visit Diagnoses Not on filedocumented in this encounter Additional Health Concerns Infection Onset Date Last Indicated Resolved Time Rule Out COVID-19 04/03/2023 04/03/2023 04/04/2023 6:30 PM CDT Assessment Noted Time PHQ-9 Depression Total Score: 11 022 11:52 AM CDT documented as of this encounter Care Teams Underground Production Foreperson Relationship Specialty Start Date End Date Monty Musa MD [facility] [address] [place] [address] PCP - General Family Medicine 08/13/21 Kitty Alfonso Odalis [facility] [address] [place] [address] [facility] 08/13/21 Dayanara Bee MD 420 [facility] 75 [place] [address] Pediatrics 12/26/14 Min Lange MD 420 [facility] 75 [place] [address] Neurology 03/30/16 Marlo Madsen MD [address] [place] [address] 508 [place], [place] 1460[address] Cardiology 10/27/16 Mel Buckley RN Nurse Coordinator Physical Medicine and Rehabilitation 12/02/16 Douglas Cadet MD [address] [place] [address] Gastroenterology 08/13/21 Rosalba Pendleton APRN FARO DEALER [address] [place] [address] Nurse Practitioner Neurology 09/05/21 Rosalba Pendleton APRN FARO DEALER [address] [place] [address] Assigned Neuroscience Provider 11/09/21 Douglas Cadet MD [address] [place] [address] Assigned Gastroenterology Provider 03/14/22 09/03/23 Marlo Madsen MD [address] [place] [address] 508 [place] [address] Assigned Heart and Vascular Provider 03/14/22 Abby Vasquez MD [address] [place] [address] [phone] Gastroenterology 07/16/22 Abby Vasquez MD [address] [place] [address] 707165 Assigned PCP 09/26/22 Airam Hodges PA-C [address] [place] [address] [id number] Physician Home Performance Laborer Surgery 07/19/23 documented as of this encounter
--- OUTSIDE RECORDS SUMMARY | 2023-09-27 15:48 | XMS_ITS | Encounter Summary ---
Author Name Unknown Organization [place] Address [address] [facility] [place] [address] Care Team Providers Care Mobile Architect Name Role Phone Monty Musa MD Primary Care Provider [phone] Alfonso Tang Unavailable Unavailable Dayanara Bee MD Unavailable [phone] Min Lange MD Unavailable Unavailable Marlo Madsen MD Unavailable [phone] Mel Buckley RN Unavailable [phone] Douglas Cadet MD Unavailable [phone] Rosalba Pendleton APRN HORSES OR MULES TEAMSTER Unavaila ble Rosalba Pendleton APRN HORSES OR MULES TEAMSTER Unavaila ble Douglas Cadet MD Unavailable [phone] Marlo Madsen MD Unavailable [phone] Abby Vasquez MD Unavailable Abby Vasquez MD Unavailable Airam Hodges PA-C Unavailable [phone] Encounter Details Date Type Department Care Team (Late st Contact Info) Description 04/02/2023 [facility] G[facility]ology Clinic Laura [address] [phone] Vivian Carter Social History Tobacco Use Types Packs/Day Years Used Date Smoking Tobacco: Never Smokeless Tobacco: Never Alcohol Use Standard Drinks/Week Comments No 0 (1 standard drink = 0.6 oz pur e alcohol) PHQ-2 Answer Date Recorded PHQ-2 Score 2 04/02/2023 Sex and Gender Information Value Date Recorded Sex Assigned at Female 10/31/2021 7:59 AM NEON GLASS BLOWER Gender Identity Female 10/31/2021 7:59 AM NEON GLASS BLOWER Sexual Orientation Straight 10/31/2021 7: 59 AM NEON GLASS BLOWER COVID-19 Exposure Response Date Recorded In the last 10 days, have yo u been in contact with someone who was confirmed or suspected to have Coronavirus/COVID-19? No / Unsure 04/03/2023 11:46 AM CDT documented as of this encounter Plan of Treatment Upcoming Encounters Date Type Department Care Team (Late st Contact Info) Description 09/29/2023 9:30 AM NEON GLASS BLOWER Ancillary Procedure [facility] [address] [place] [phone] Zain Quintana MD [address] [place], [place] [address] 10/01/2023 9:30 AM NEON GLASS BLOWER Ancillary Procedure [facility] [address] [place] [phone] Zain Quintana MD [address] [place], [place] [address] 10/18/[address] [facility] Colon and Rectal Surgery Clinic Laura [address] [phone] Airam Hodges PA-C 500 [place], [place] [address] Previsit 10/21/2023 11:30 AM NEON GLASS BLOWER Therapy Visit [facility] Rehabilitation Services [facility] [address] [place] [address] Zain Quintana MD [address] [place] [address] Lainey Simon PT [address] [place] [address] 10/26/2023 1:00 PM NEON GLASS BLOWER Virtual Visit [facility] Gastroenterology [address] [phone] Latricia Pettit PA-C [address] [place] [address] [id number] 10/28/2023 10:50 AM NEON GLASS BLOWER Therapy Visit [address] [address] Zain Quintana MD [address] [place] [address] Lainey Simon PT [address] [place] [address] 11/04/2023 10:50 AM NEON GLASS BLOWER Therapy Visit [address] [address] Zain Quintana MD [address] [place] [address] Lainey Simon PT [address] [place] [address] 11/24/2023 10:40 AM CDT Office Visit [facility] Gastroenterology [address] [phone] Abby Vasquez MD [address] [place] [address] 01/13/2024 10:00 AM CDT Virtual Visit [facility] Neurology Clinic [address] 3rd [place] [phone] Rosalba Pendleton, MAXIMILIANO [address] [id number] [address] 01/20/2024 8:00 PM CDT Therapy Visit [facility] Sleep [address] [phone] 03/14/2024 10:30 AM CDT Office Visit [address] [phone] Abhishek Acevedo PA-C [address] [id number] 03/21/2024 11:30 AM CDT Office Visit [facility] Colon and Rectal Surgery Clinic [address] 4th [place] [phone] Zain Quintana MD [address] [place] [address] [phone] documented as of this encounter Visit Diagnoses Not on filedocumented in this encounter Additional Health Concerns Infection Onset Date Last Indicated Resolved Time Rule Out COVID-19 04/03/2023 04/03/2023 04/04/2023 6:30 PM CDT Assessment Noted Time PHQ-9 Depression Total Score: 11 05/28/2 022 11:52 AM CDT documented as of this encounter Care Teams Mobile Architect Relationship Specialty Start Date End Date Monty Musa MD [facility] [address] [place] [address] PCP - General Family Medicine 08/13/21 Alfonso Tang [facility] [address] [place] [address] [facility] 08/13/21 Dayanara Bee MD 420 [facility] EM[facility] 75 [place], [place] [phone] Pediatrics 12/26/14 Min Lange MD 420 [facility] 75 [place] [address] Neurology 03/30/16 Marlo Madsen MD 420 [facility] 508 [place], [place] 4246[address] Cardiology 10/27/16 Mel Buckley RN Nurse Coordinator Physical Medicine and Rehabilitation 12/02/16 Douglas Cadet MD 500 [place], [place] [phone] MD Gastroenterology 08/13/21 Rosalba Pendleton APRN HORSES OR MULES TEAMSTER [address] [place], [place] [address] [place], [place] [address] Nurse Practitioner Neurology 09/05/21 Rosalba Pendleton APRN HORSES OR MULES TEAMSTER [address] [place], [place] [address] [place], [place] [phone] Assigned Neuroscience Provider 11/09/21 Douglas Cadet MD [address] [place] [address] Assigned Gastroenterology Provider 03/14/22 09/03/23 Marlo Madsen MD 420 [facility] 508 [place], [place] [address] Assigned Heart and Vascular Provider 03/14/22 Abby Vasquez MD [address] [place] [address] [phone] Gastroenterology 07/16/22 Abby Vasquez MD [address] [place] [address] 323335 Assigned PCP 09/26/22 Airam Hodges PA-C [address] [place] [address] 339265 Physician [facility] 07/19/23 documented as of this encounter
--- OUTSIDE RECORDS SUMMARY | 2023-09-27 15:48 | XMS_ITS | Encounter Summary ---
Author Name Unknown Organization [place] Address [address] [place] [address] Care Team Providers Care Retail Business Development Manager Name Role Phone Monty Musa MD Primary Care Provider [phone] Alfonso Tang Unavailable Unavailable Dayanara Bee MD Unavailable [phone] Min Lange MD Unavailable Unavailable Marlo Madsen MD Unavailable [phone] Mel Buckley RN Unavailable [phone] Douglas Cadet MD Unavailable [phone] Rosalba Pendleton APRN CYBER FORENSICS ANALYST Unavaila ble Rosalba Pendleton APRN CYBER FORENSICS ANALYST Unavaila ble Douglas Cadet MD Unavailable [phone] Marlo Madsen MD Unavailable [phone] Abby Vasquez MD Unavailable Abby Vasquez MD Unavailable Encounter Details Date Type Department Care Team (Latest Contact Info) Description 04/03/2023 Travel Social History Tobacco Use Types Packs/Day Years Used Date Smoking Tobacco: Never Smokeless Tobacco: Never Alcohol Use Standard Drinks/Week Comments No 0 (1 standard drink = 0.6 oz pur e alcohol) PHQ-2 Answer Date Recorded PHQ-2 Score 2 04/02/2023 Sex and Gender Information Value Date Recorded Sex Assigned at Female 10/31/2021 7:59 AM ENGINE MECHANIC Gender Identity Female 10/31/2021 7:59 AM ENGINE MECHANIC Sexual Orientation Straight 10/31/2021 7: 59 AM ENGINE MECHANIC COVID-19 Exposure Response Date Recorded In the last 10 days, have yo u been in contact with someone who was confirmed or suspected to have Coronavirus/COVID-19? No / Unsure 04/03/2023 11:46 AM CDT documented as of this encounter Plan of Treatment Upcoming Encounters Date Type Department Care Team (Late st Contact Info) Description 09/29/2023 9:30 AM ENGINE MECHANIC Ancillary Procedure [address] [place] [phone] Zain Quintana MD [address] [place], [place] [address] 10/01/2023 9:30 AM ENGINE MECHANIC Ancillary Procedure [facility] [address] [facility] [address] [place] [phone] Zain Quintana MD [address] [place], [place] [address] 10/18/2023 PRE VISIT [facility] [address] 4th [place] [phone] Airam Hodges PA-C 500 [place], [place] [address] Previsit 10/21/2023 11:30 AM ENGINE MECHANIC Therapy Visit [facility] [address] [facility] [address] [place] [address] Zain Quintana MD [address] [place], [place] [address] Lainey Simon, JAY [address] [place] [address] 10/26/2023 1:00 PM ENGINE MECHANIC Virtual Visit [facility] [address] [phone] Latricia Pettit PA-C [address] [place] [address] 10/28/2023 10:50 AM ENGINE MECHANIC Therapy Visit [address] [address] Zain Quintana MD [address] [place] [address] Lainey Simon, JAY [address] [place] [address] 11/04/2023 10:50 AM ENGINE MECHANIC Therapy Visit [address] [address] Zain Quintana MD [address] [place] [address] Lainey Simon PT [address] [place] [address] 11/24/2023 10:40 AM CDT Office Visit [facility] [address] [phone] Abby Vasquez MD [address] [place] [address] 01/13/2024 10:00 AM CDT Virtual Visit [facility] Neurology Clinic [address] 3rd [place] [phone] Rosalba Pendleton APRN [address] [id number] [place] [address] 01/20/2024 8:00 PM CDT Therapy Visit [facility] Sleep [facility] 6[address] [facility] 103 [place] [phone] 03/14/2024 10:30 AM CDT Office Visit [facility] [address] [phone] Abhishek Acevedo PA-C 4898 [facility] 103 [place], [place] [phone] 03/21/2024 11:30 AM CDT Office Visit [facility] [address]th [place] [phone] Zain Quintana MD [address] [place] [address] documented as of this encounter Visit Diagnoses Not on filedocumented in this encounter Additional Health Concerns Infection Onset Date Last Indicated Resolved Time Rule Out COVID-19 04/03/2023 04/03/2023 04/04/2023 6:30 PM CDT Assessment Noted Time PHQ-9 Depression Total Score: 11 022 11:52 AM CDT documented as of this encounter Care Teams Retail Business Development Manager Relationship Specialty Start Date End Date Monty Musa MD [facility] [address] [place] [address] PCP - General Family Medicine 08/13/21 Alfonso Tang [facility] [address] [place] [address] Family Practice 08/13/21 Dayanara Bee MD [address] 219[address] Pediatrics 12/26/14 Min Lange MD [address] [address] Neurology 03/30/16 Marlo Madsen MD [address] [place] [address] Cardiology 10/27/16 Mel Buckley, RN Nurse Coordinator Physical Medicine and Rehabilitation 12/02/16 Douglas Cadet MD 500 [place], [place] [address]45 Gastroenterology 08/13/21 Rosalba Pendleton APRN CYBER FORENSICS ANALYST [address] [place] [address] 685655 Nurse Practitioner Neurology 09/05/21 Rosalba Pendleton APRN CYBER FORENSICS ANALYST [address] [place] [address] Assigned Neuroscience Provider 11/09/21 Douglas Cadet MD 500 [place], [place] [address]35 Assigned Gastroenterology Provider 03/14/22 09/03/23 Marlo Madsen MD [address] 415[address] Assigned Heart and Vascular Provider 03/14/22 Abby Vasquez MD 909 [place] [address] Gastroenterology 07/16/22 Abby Vasquez MD 909 [place] [address] Assigned PCP 09/26/22 documented as of this encounter
--- OUTSIDE RECORDS SUMMARY | 2023-09-27 15:48 | XMS_ITS | Encounter Summary ---
Author Name Unknown Organization [place] Address [address] [facility] [place] [address] Care Team Providers Care Engineering Test Mechanic Name Role Phone Monty Musa MD Primary Care Provider [phone] Alfonso Tang Unavailable Unavailable Dayanara Bee MD Unavailable [phone] Min Lange MD Unavailable Unavailable Marlo Madsen MD Unavailable [phone] Mel Buckley RN Unavailable [phone] Douglas Cadet MD Unavailable [phone] Rosalba Pendleton APRN CHINESE HERBALIST Unavaila ble Rosalba Pendleton APRN CHINESE HERBALIST Unavaila ble Douglas Cadet MD Unavailable [phone] Marlo Madsen MD Unavailable [phone] Abby Vasquez MD Unavailable Abby Vasquez MD Unavailable Reason for Visit * Reason Comments Sinus Problem 2 days, sinus pressu re/pain/drainage, sore throat, cough, neg at home covid Encounter Details Date Type Department Care Team (Late st Contact Info) Description 04/03/2023 12:15 PM CDT Office Visit [facility] [address] [place] [address] Juliana Cartwright DO [address] [place] [address] Throat pain (Primary Dx); Upper respiratory tract infection, unspecified type Social History Tobacco Use Types Packs/Day Years Used Date Smoking Tobacco: Never Smokeless Tobacco: Never Alcohol Use Standard Drinks/Week Comments No 0 (1 standard drink = 0.6 oz pur e alcohol) PHQ-2 Answer Date Recorded PHQ-2 Score 2 04/02/2023 Sex and Gender Information Value Date Recorded Sex Assigned at Female 10/31/2021 7:59 AM SENIOR DATA ANALYST Gender Identity Female 10/31/2021 7:59 AM SENIOR DATA ANALYST Sexual Orientation Straight 10/31/2021 7: 59 AM SENIOR DATA ANALYST COVID-19 Exposure Response Date Recorded In the last 10 days, have yo u been in contact with someone who was confirmed or suspected to have Coronavirus/COVID-19? No / Unsure 04/03/2023 11:46 AM CDT documented as of this encounter Last Filed Vital Signs Vital Sign Reading Time Taken Comments Blood Pressure 130/92 04/03/2023 11:53 AM CDT Pulse 71 04/03/2023 11:53 AM CDT Temperature 36.4 ??C (97.6 ??F) 04/03/2023 11:53 AM C DT Respiratory Rate 16 04/03/2023 11:53 AM CDT Oxygen Saturation 100% 04/03/2023 11:53 AM CDT Inhaled Oxygen Concentration - - Weight - - Height - - Body Mass Index - - documented in this encounter Progress Notes * Juliana Cartwright DO - 04/03/2023 12:15 PM CDT SUBJECTIVE: Latricia Hatch is a 33 year old female presenting with Chief Complaint Patient presents with ??? Sinus Problem 2 days, sinus pressure/pain/drainage, sore throat, cough, neg at home covid Symptoms started 2 days ago with sinus congestion/pressure, sore throat, cough, nausea and loose stools. 2 BM's today, no blood in stools. No vomiting. No fevers. Has felt short of breath with stairs. Exposed to nephew about a week after he recovered from mono and covid. She had mono in her 20's. Home covid done on day 1 of illness was negative. She's had twice before, last time about a year ago.She is vaccinated and boosted. Predisposing factors include: No h/o asthma. OBJECTIVE BP (!) 130/92 Pulse 71 Temp 97.6 ??F (36.4 ??C) Resp 16 SpO2 100% GENERAL: Awake, alert and interactive. No acute distress. HEENT: NC/AT, EOMI, clear conjunctiva. Nose congested. Oropharynx moist and clear. TM's and EAC's benign. NECK: supple and free of adenopathy CHEST: Lungs are clear, no rhonchi, wheezing or rales. Normal symmetric air entry throughout both lung andersen. HEART: S1 and S2 normal, no murmurs. Regular rate and rhythm. Labs: Results for orders placed or performed in visit on 04/03/23 Streptococcus A Rapid Screen w/Reflex to PCR - Clinic Collect Status: Normal Specimen: Throat; Swab Result Value Ref Range Group A Strep antigen Negative Negative ASSESSMENT/PLAN ICD-10-CM 1. Throat pain R07.0 Streptococcus A Rapid Screen w/Reflex to PCR - Clinic Collect Group A Streptococcus PCR Throat Swab Symptomatic COVID-19 Virus (Coronavirus) by PCR Nose 2. Upper respiratory tract infection, unspecified type J06.9 Viral illness suspected. covid is pending along with backup strep. We discussed the expected courseof the illness and symptomatic cares in detail. Advised to return to care if symptoms not improvingas expected, do not resolve completely, or if any new or worsening symptoms develop. documented in this encounter Plan of Treatment Upcoming Encounters Date Type Department Care Team (Late st Contact Info) Description 09/29/2023 9:30 AM SENIOR DATA ANALYST Ancillary Procedure [facility] [address] [place] [address] Zain Quintana MD [address] [place] [address] 10/01/2023 9:30 AM SENIOR DATA ANALYST Ancillary Procedure [facility] [address] [place] [phone] Zain Quintana MD [address] [place] [address] 10/18/2023 PRE VISIT [facility] Colon and Rectal Surgery Clinic [address] [phone] Airam Hodges PA-C [address] [place], [place] [address] Previsit 10/21/2023 11:30 AM SENIOR DATA ANALYST Therapy Visit [address] [place] [address] Zain Quintana MD [address] [place], [place] [phone] Lainey Simon, PT [address] [place] [id number] 10/26/2023 1:00 PM SENIOR DATA ANALYST Virtual Visit [facility] Gastroenterology Clinic [address] [phone] Latricia Pettit PA-C 9 [place] [address] 10/28/2023 10:50 AM SENIOR DATA ANALYST Therapy Visit [address] [place] [address] Zain Quintana MD [address] [place], [place] [phone] [place] [address] [place] [address] 11/04/2023 10:50 AM SENIOR DATA ANALYST Therapy Visit [facility] Rehabilitation Services [facility] [address] [facility] [address] [place] [address] Zain Quintana MD [address] [place] [address] [place] [address] [place] [address] 11/24/2023 10:40 AM CDT Office Visit [facility] Gastroenterology Clinic [address] [place] [phone] Abby Vasquez MD [address] [place] [address] 01/13/2024 10:00 AM CDT Virtual Visit [facility] Neurology Clinic [address] [place] [phone] Rosalba Pendleton, MAXIMILIANO [address] [id number] [place] [address] 01/20/2024 8:00 PM CDT Therapy Visit [facility] Sleep [place] [address] [place] [address] 03/14/2024 10:30 AM CDT Office Visit [facility] Sleep [place] [address] [place] [address] Abhishek Acevedo PA-C [address] [facility] [address] [place] [id number] 03/21/2024 11:30 AM CDT Office Visit [facility] Colon and Rectal Surgery Clinic [place] [phone] [facility] [address] 4th [place] [address] Zain Quintana MD [address] [place] [address] documented as of this encounter Procedures Procedure Name Priority Date/Time Associated Diagnosis Comments COVID-19 VIRUS (CORONAVIRUS) BY PCR Routine 04/03/2023 12:20 PM CDT Throat pain STREPTOCOCCUS A RAPID SCREEN W REFELX TO PCR Routine 04/03/2023 11:55 AM CDT Throat pain GROUP A STREPTOCOCCUS PCR THROAT SWAB Routine 04/03/2023 11:55 AM CDT Throat pain documented in this encounter Results * Symptomatic COVID-19 Virus (Coronavirus) by PCR Nose (04/03/2023 12:20 PM CDT) SARS CoV2 PCR Negative Negative 04/04/2023 6:30 PM CDT [facility] Comment:NEGATIVE: SARS-CoV-2 (COVID-19) RNA not detected, presumed negative. Swab NASAL STRUCTURE / Unknown Non-blood Collection / Unknown 04/03/2023 12:20 PM CDT 04/03/2023 12:21 PM CDT Narrative [facility] - 04/04/2023 6:30 PM CDT Testing was performed using the Aptima SARS-CoV-2 Assay on the [employer] Instrument System. Additional information about this Emergency Use Authorization (EUA) assay can be found via the Lab Guide. This test should be ordered for the detection of SARS-CoV-2 in individuals who meet SARS-CoV-2 clinical and/or epidemiological criteria. Test performance is unknown in asymptomatic patients. This test is for in vitro diagnostic use under the FDA EUA for laboratories certified under CLIA to perform high complexity testing. This test has not been FDA cleared or approved. A negative result does not rule out the presence of PCR inhibitors in the specimen or target RNA in concentration below the limit of detection for the assay. The possibility of a false negative should be considered if the patient's recent exposure or clinical presentation suggests COVID-19. This test was validated by the [facility] Infectious Diseases Diagnostic Laboratory. This laboratory is certified under the Clinical Laboratory Improvement Amendments of 1988 (CLIA-88) as qualified to perform high complexity laboratory testing. Juliana Cartwright DO LAB - MICRO GENER AL ORDERABLES Performing Organization Address City/[facility]/ZIP Co de Phone Number [facility] Inf. Diseases Diag. Lab [address] [facility], [address] [place] [phone], [facility] [phone] * Group A Streptococcus PCR Throat Swab (04/03/2023 11:55 AM CDT) Pathologist [facility] Group A strep by PCR Not Detected Not Detected 04/04/2023 3:32 PM CDT [facility] Swab STRUCTURE OF ANTERIOR PORTION OF NECK / Unknown Non-blood Collection / Unknown 04/03/2023 11:55 AM CDT 04/03/2023 12:04 PM CDT Narrative [facility] - 04/04/2023 3:32 PM CDT The Xpert Xpress Strep A test, performed on the [employer]?? Instrument Systems, is a rapid, qualitative in vitro diagnostic test for the detection of Streptococcus pyogenes (Group A ? - hemolytic Streptococcus, Strep A) in throat swab specimens from patients with signs and symptoms of pharyngitis. The Xpert Xpress Strep A test can be used as an aid in the diagnosis of Group A Streptococcal pharyngitis. The assay is not intended to monitor treatment for Group A Streptococcus infections. The Xpert Xpress Strep A test utilizes an automated real-time polymerase chain reaction (PCR) to detect Streptococcus pyogenes DNA. Sweta Garzon PA-C LAB - MICRO GEN ERAL ORDERABLES Performing Organization Address City/[facility]/ZIP Co de Phone Number [facility] Inf. Diseases Diag. Lab [address] [facility], [address] [place] [phone], [facility] [phone] * Streptococcus A Rapid Screen w/Reflex to PCR - Clinic Collect (04/03/2023 11:55 AM CDT) Group A Strep antigen Negative Negative 04/03/2023 12:04 PM CDT [facility] Swab STRUCTURE OF ANTERIOR PORTION OF NECK / Unknown Non-blood Collection / Unknown 04/03/2023 11:55 AM CDT 04/03/2023 11:57 AM CDT Sweta Garzon PA-C LAB - MICRO GEN ERAL ORDERABLES [facility] [address] [facility] Lab (no room number, 1st floor of clinic) [place] [address], [facility] [phone] documented in this encounter Visit Diagnoses Diagnosis Throat pain- Primary Upper respiratory tract infection, unspecified type documented in this encounter Additional Health Concerns Infection Onset Date Last Indicated Resolved Time Rule Out COVID-19 04/03/2023 04/03/2023 04/04/2023 6:30 PM CDT Assessment Noted Time PHQ-9 Depression Total Score: 11 022 11:52 AM CDT documented as of this encounter Care Teams Engineering Test Mechanic Relationship Specialty Start Date End Date Monty Musa MD [facility] [address] [place] [address] PCP - General Family Medicine 08/13/21 Alfonso Tang [facility] [address] [place] [address] Family Practice 08/13/21 Dayanara Bee MD [address] 654[address] Pediatrics 12/26/14 Min Lange MD 420 [facility] [address] [place] [address] Neurology 03/30/16 Marlo Madsen MD [address] [address] Cardiology 10/27/16 Mel Buckley, RN Nurse Coordinator Physical Medicine and Rehabilitation 12/02/16 Douglas Cadet MD 500 [place] [address] Gastroenterology 08/13/21 Rosalba Pendleton APRN CHINESE HERBALIST [address] [place] [address] [id number] Nurse Practitioner Neurology 09/05/21 Rosalba Pendleton APRN CHINESE HERBALIST [address] [place] [address] Assigned Neuroscience Provider 11/09/21 Douglas Cadet MD [address] [place] [address] Assigned Gastroenterology Provider 03/14/22 09/03/23 Marlo Madsen MD [address] [place] [address] Assigned Heart and Vascular Provider 03/14/22 Abby Vasquez MD [address] [place] [address] [id number] Gastroenterology 07/16/22 Abby Vasquez MD [address] [place] [address] Assigned PCP 09/26/22 documented as of this encounter
--- OUTSIDE RECORDS SUMMARY | 2023-09-27 15:48 | XMS_ITS | Encounter Summary ---
Author Name Unknown Organization [place] Address [address] [facility] [place] [address] Care Team Providers Care Securities Consultant Name Role Phone Monty Musa MD Primary Care Provider [phone] Alfonso Tang Unavailable Unavailable Dayanara Bee MD Unavailable [phone] Min Lange MD Unavailable Unavailable Marlo Madsen MD Unavailable [phone] Mel Buckley RN Unavailable [phone] Douglas Cadet MD Unavailable [phone] Rosalba Pendleton APRN WAFFLE MACHINE OPERATOR Unavaila ble Rosalba Pendleton APRN WAFFLE MACHINE OPERATOR Unavaila ble Douglas Cadet MD Unavailable [phone] Marlo Madsen MD Unavailable [phone] Abby Vasquez MD Unavailable Abby Vasquez MD Unavailable Encounter Details Date Type Department Care Team (Late st Contact Info) Description 02/25/2023 [facility] Only [facility] Heart [place] [id number] [place] [address] Marlo Madsen MD [address] [facility] 508 [place] [address] Syncope and collapse; Palpitations; Vasovagal syncope Social History Tobacco Use Types Packs/Day Years Used Date Smoking Tobacco: Never Smokeless Tobacco: Never Alcohol Use Standard Drinks/Week Comments No 0 (1 standard drink = 0.6 oz pur e alcohol) PHQ-2 Answer Date Recorded PHQ-2 Score 2 01/19/2023 Sex and Gender Information Value Date Recorded Sex Assigned at Female 10/31/2021 7:59 AM DIP GUIDER STOVES Gender Identity Female 10/31/2021 7:59 AM DIP GUIDER STOVES Sexual Orientation Straight 10/31/2021 7: 59 AM DIP GUIDER STOVES documented as of this encounter Plan of Treatment Upcoming Encounters Date Type Department Care Team (Late st Contact Info) Description 09/29/2023 9:30 AM DIP GUIDER STOVES Ancillary Procedure [facility] [address] [facility] [address] [place] [phone] Zain Quintana MD 500 [place] [address] 10/01/2023 9:30 AM DIP GUIDER STOVES Ancillary Procedure [facility] [address] [facility] [address] [place] [phone] Zain Quintana MD 500 [place], [place] [address] 10/18/2023 PRE VISIT [facility] Colon and Rectal Surgery Clinic [place] [address] [facility] 4th [place] [phone] Airam Hodges PA-C 500 [place], [place] 7[address] Previsit 10/21/2023 11:30 AM DIP GUIDER STOVES Therapy Visit [facility] Rehabilitation Services [facility] [address] [facility] [address] [place] [address] Zain Quintana MD 500 [place] [address] Lainey Simon, PT [address] [place] [address] 10/26/2023 1:00 PM DIP GUIDER STOVES Virtual Visit [facility] Gastroenterology [address] [phone] Latricia Pettit PA-C [address] [place] [address] 10/28/2023 10:50 AM DIP GUIDER STOVES Therapy Visit [address] [place] [address] Zain Quintana MD [address] [place] [address] Lainey Simon, PT [address] [place] [address] 11/04/2023 10:50 AM DIP GUIDER STOVES Therapy Visit [address] [place] [address] Zain Quintana MD [address] [place] [address] Lainey Simon, PT [address] [place] [address] 11/24/2023 10:40 AM CDT Office Visit [facility] Gastroenterology [address] [phone] Abby Vasquez MD [address] [place] [address]285 01/13/2024 10:00 AM CDT Virtual Visit [facility] Neurology Clinic [address] 3rd [place] [phone] Rosalba Pendleton APRN WAFFLE MACHINE OPERATOR [address] [place] [address] [id number] [place], [place] [address] 01/20/2024 8:00 PM CDT Therapy Visit [facility] Sleep [facility] [address] [place] [address] 03/14/2024 10:30 AM CDT Office Visit [facility] [address] [place] [phone] Abhishek Acevedo PA-C [address] [phone] 03/21/2024 11:30 AM CDT Office Visit [facility] Colon and Rectal Surgery Clinic [address] [place] [phone] Zain Quintana MD [address] [place] [address] [phone] documented as of this encounter Procedures Procedure Name Priority Date/Time Associated Diagnosis Comments CARDIAC EVENT MONITOR ADULT PEDIATRIC Routine 01/21/2023 Syncope and collapse Palpitations Vasovagal syncope documented in this encounter Results * Cardiac Event Monitor Adult/Pediatric (01/21/2023) Anatomical Region Laterality Modality Other Marlo Madsen MD CV CARDIAC SERVICE S ORDERABLES documented in this encounter Visit Diagnoses Diagnosis Syncope and collapse Palpitations Vasovagal syncope Syncope and collapse documented in this encounter Additional Health Concerns Assessment Noted Time PHQ-9 Depression Total Score: 11 05/28/2 022 11:52 AM CDT documented as of this encounter Care Teams Securities Consultant Relationship Specialty Start Date End Date Monty Musa MD [facility] [address] [place] [address] PCP - General Family Medicine 08/13/21 Alfonso Tang [facility] [address] [place] [address] Family Practice 08/13/21 Dayanara Bee MD [address] [facility] 75 [place], [place] 335065 Pediatrics 12/26/14 Min Lange MD 420 [facility] 75 [place] [address] Neurology 03/30/16 Marlo Madsen MD 420 [facility] [address] [place], [place] 47[address] Cardiology 10/27/16 Mel Buckley, RN Nurse Coordinator Physical Medicine and Rehabilitation 12/02/16 Duoglas Cadet MD [address] [place] [address]1995 Gastroenterology 08/13/21 Rosalba Pendleton APRN WAFFLE MACHINE OPERATOR [address] [place], [place] [address] Nurse Practitioner Neurology 09/05/21 Rosalba Pendleton APRN WAFFLE MACHINE OPERATOR [address] [phone] Assigned Neuroscience Provider 11/09/21 Douglas Cadet MD 500 [place], [place] [phone] Gastroenterology Provider 03/14/22 09/03/23 Marlo Madsen MD [address] [place] [address] 508 [place] [address] Assigned Heart and Vascular Provider 03/14/22 Abby Vasquez MD [address] [place] [address] Gastroenterology 07/16/22 Abby Vasquez MD [address] [place] [address] Assigned PCP 09/26/22 documented as of this encounter
--- OUTSIDE RECORDS SUMMARY | 2023-09-27 15:48 | XMS_ITS | Encounter Summary ---
Author Name Unknown Organization [place] Address [address] [place] [address] Care Team Providers Care Ammonia Still Operator Name Role Phone Monty Musa MD Primary Care Provider [phone] Alfonso Tang Unavailable Unavailable Dayanara Bee MD Unavailable [phone] Min Lange MD Unavailable Unavailable Marlo Madsen MD Unavailable [phone] Mel Buckley RN Unavailable [phone] Douglas Cadet MD Unavailable [phone] Rosalba Pendleton APRN RESEARCH STATISTICIAN Unavaila ble Rosalba Pendleton APRN RESEARCH STATISTICIAN Unavaila ble Douglas Cadet MD Unavailable [phone] Marlo Madsen MD Unavailable [phone] Abby Vasquez MD Unavailable Abby Vasquez MD Unavailable Reason for Visit * Reason Comments Medication Refill Encounter Details Date Type Department Care Team (Late st Contact Info) Description 02/02/2023 [facility] [place] [address] [facility] [address] 4th [place] [phone] Abby Vasquez MD [address] [place] [id number] Medication Refill Social History Tobacco Use Types Packs/Day Years Used Date Smoking Tobacco: Never Smokeless Tobacco: Never Alcohol Use Standard Drinks/Week Comments No 0 (1 standard drink = 0.6 oz pur e alcohol) PHQ-2 Answer Date Recorded PHQ-2 Score 2 01/19/2023 Sex and Gender Information Value Date Recorded Sex Assigned at Female 10/31/2021 7:59 AM INSPECTOR METAL FABRICATING Gender Identity Female 10/31/2021 7:59 AM INSPECTOR METAL FABRICATING Sexual Orientation Straight 10/31/2021 7: 59 AM INSPECTOR METAL FABRICATING documented as of this encounter Miscellaneous Notes * Telephone Encounter - Isi Euceda, RN - 02/04/2023 3:50 PM CDT Last Clinic Visit: 12/09/2022 [facility] [place] Scheduled for follow-up 04/15/23 documented in this encounter Plan of Treatment Upcoming Encounters Date Type Department Care Team (Late st Contact Info) Description 09/29/2023 9:30 AM INSPECTOR METAL FABRICATING Ancillary Procedure [address] [place] [phone] Zain Quintana MD [address] [place], [place] [address] 10/01/2023 9:30 AM INSPECTOR METAL FABRICATING Ancillary Procedure [facility] [address] [place] [phone] Zain Quintana MD [address] [place] [address] 10/18/2023 PRE VISIT [facility] [address] 4th [place] [phone] Airam Hodges PA-C 500 [place] [address] Previsit 10/21/2023 11:30 AM INSPECTOR METAL FABRICATING Therapy Visit [address] [address] Zain Quintana MD [address] [place] [address] Lainey Simon, PT [address] [place] [address] 10/26/2023 1:00 PM INSPECTOR METAL FABRICATING Virtual Visit [facility] [address] [phone] Latricia Pettit PA-C [address] [place] [address] 10/28/2023 10:50 AM INSPECTOR METAL FABRICATING Therapy Visit [address] [address] Zain Quintana MD [address] [place] [address] Lainey Simon, PT [address] [place] [address] 11/04/2023 10:50 AM INSPECTOR METAL FABRICATING Therapy Visit [address] [address] Zain Quintana MD [address] [place] [address] Lainey Simon, PT [address] [place] [address] 11/24/2023 10:40 AM CDT Office Visit [facility] [address]th [place] [phone] Abby Vasquez MD [address] [place] [address] [id number] 01/13/2024 10:00 AM CDT Virtual Visit [facility] [address]rd [place] [phone] Rosalba Pendleton APRN [address] [id number] [place], [place] [id number] 01/20/2024 8:00 PM CDT Therapy Visit [facility] [address] [phone] 03/14/2024 10:30 AM CDT Office Visit [address] [phone] Abhishek Acevedo PA-C [address] [id number] 03/21/2024 11:30 AM CDT Office Visit [facility] [address] [phone] Zain Quintana MD [address] [place] [address] 882195 documented as of this encounter Visit Diagnoses Diagnosis Irritable bowel syndrome with constipation Irritable bowel syndrome documented in this encounter Additional Health Concerns Assessment Noted Time PHQ-9 Depression Total Score: 11 022 11:52 AM CDT documented as of this encounter Care Teams Ammonia Still Operator Relationship Specialty Start Date End Date Monty Musa MD [facility] [address] [place] [address] PCP - General Family Medicine 08/13/21 Alfonso Tang [facility] [address] [place] [address] Family [facility] 08/13/21 Dayanara Bee MD [address] [address] Pediatrics 12/26/14 Min Lange MD [address] [address] Neurology 03/30/16 Marlo Madsen MD [address] [place], [place] [address] [place], [place] [address] Cardiology 10/27/16 Mel Buckley, RN Nurse Coordinator Physical Medicine and Rehabilitation 12/02/16 Douglas Cadet MD [address] [place] [address] Gastroenterology 08/13/21 Rosalba Pendleton APRN RESEARCH STATISTICIAN [address] [place] [address] Nurse Practitioner Neurology 09/05/21 Rosalba Pendleton APRN RESEARCH STATISTICIAN [address] [address] Assigned Neuroscience Provider 11/09/21 Douglas Cadet MD [address] [place] [address] Assigned Gastroenterology Provider 03/14/22 09/03/23 Marlo Madsen MD [address] [place] [address] 508 [place] [address] Assigned Heart and Vascular Provider 03/14/22 Abby Vasquez MD [address] [place] [address] Gastroenterology 07/16/22 Abby Vasquez MD [address] [place] [address] Assigned PCP 09/26/22 documented as of this encounter
--- OUTSIDE RECORDS SUMMARY | 2023-09-27 15:48 | XMS_ITS | Encounter Summary ---
Author Name Unknown Organization [place] Address [address] [facility] [place] [address] Care Team Providers Care Fur Designer Name Role Phone Monty Musa MD Primary Care Provider [phone] Alfonso Tang Unavailable Unavailable Dayanara Bee MD Unavailable [phone] Min Lange MD Unavailable Unavailable Marlo Madsen MD Unavailable [phone] Mel Buckley RN Unavailable [phone] Douglas Cadet MD Unavailable [phone] Rosalba Pendleton APRN CHASSIS DRIVER Unavaila ble Rosalba Pendleton APRN CHASSIS DRIVER Unavaila ble Douglas Cadet MD Unavailable [phone] Marol Madsen MD Unavailable [phone] Abby Vasquez MD Unavailable Abby Vasquez MD Unavailable Reason for Visit * Reason Comments Follow Up Encounter Details Date Type Department Care Team (Latest Contact Info) Description 12/09/2022 2:00 PM CDT Office Visit [facility] [place] [address] [facility] [address] 4th [place] [address] Abby Vasquez MD 9 [place] [address] Constipation, unspecified constipation type (Primary Dx) Social History Tobacco Use Types Packs/Day Years Used Date Smoking Tobacco: Never Smokeless Tobacco: Never Tobacco Cessation:Counseling Given: Not Answered Alcohol Use Standard Drinks/Week Comments No 0 (1 standard drink = 0.6 oz pur e alcohol) PHQ-2 Answer Date Recorded PHQ-2 Score 1 12/09/2022 Sex and Gender Information Value Date Recorded Sex Assigned at Female 10/31/2021 7:59 AM BAKERY AND DELI SALES MANAGER Gender Identity Female 10/31/2021 7:59 AM BAKERY AND DELI SALES MANAGER Sexual Orientation Straight 10/31/2021 7: 59 AM BAKERY AND DELI SALES MANAGER COVID-19 Exposure Response Date Recorded In the last 10 days, have yo u been in contact with someone who was confirmed or suspected to have Coronavirus/COVID-19? No / Unsure 12/09/2022 1:53 PM CDT documented as of this encounter Last Filed Vital Signs Vital Sign Reading Time Taken Comments Blood Pressure 128/88 12/09/2022 1:55 PM CDT Pulse - - Temperature - - Respiratory Rate - - Oxygen Saturation - - Inhaled Oxygen Concentration - - Weight - - Height - - Body Mass Index - - documented in this encounter Patient Instructions * Patient Instructions* Abby Vasquez MD - 12/09/2022 2:00 PM CDT - continuing Linzess at 290 mcg daily - continue Miralax 1-2 capfuls daily - ok to increase Miralax if decreased BMs - if no BM for 4-5 days, use Fleets enema and/or magnesium citrate - ok for Miralax prep as needed if no response to above measures - contact GI clinic if prep not working, can consider therapeutic gastrograffin enema - follow-up in GI clinic in 4 months If you have any questions, please don't hesitate to contact me through our GI RN Corporate Tax Preparer, Sheri Edmonds, at . documented in this encounter Progress Notes * Abby Vasquez MD - 12/09/2022 2:00 PM CDT GI CLINIC VISIT CC: follow-up ASSESSMENT/PLAN: (K59.00) Constipation, unspecified constipation type (primary encounter diagnosis) Chronic constipation for which she is back on Linzess (had prior success with it, but used Amitiza as per insurance coverage which she failed after several weeks). Takes 1-2 capfuls Miralax in addition to Linzess. Constipation work-up has identified pelvic floor dysfunction for which she is plannedfor PT. ?? Will continue with bowel regimen as outlined below, action plan for worsening constipation was discussed as well. Would ideally like to assess colonic motility, particularly after PT intervention forher pelvic floor dysfunction. Ms. Hatch was most open to considering this if there is a failure of her Linzess and she needs to go off to transition to another medication. At this time, she, understandably, would not want to stop a well-working bowel regimen in order to undergo the Sitz marker test. Ms. Hatch has not previously tried Motegrity or Trulance. - continuing Linzess at 290 mcg daily - continue Miralax 1-2 capfuls daily - ok to increase Miralax if decreased BMs - if no BM for 4-5 days, use Fleets enema and/or magnesium citrate - ok for Miralax prep as needed if no response to above measures - contact GI clinic if prep not working, can consider therapeutic gastrograffin enema - follow-up in GI clinic in 4 months It was a pleasure to participate in the care of this patient; please contact us with any further questions. A total of 25 [id number] minutes was spent with this patient, >50% of which was counseling regarding the above delineated issues. An additional 15 minutes was spent on the date of the encounter doing chart review, documentation, and further activities as noted above. Abby Vasquez MD Swine Nutritionistoperational risk analyst Division of Gastroenterology, Hepatology and Nutrition [facility] HPI: Ms Latricia Hatch is a very pleasant 32 yo female with dysautonomia, frequent migraine HAs, chronic diffuse abdominal pain, constipation, nausea, and prior adenomatous polyp who returns to GI clinic forfollow-up of her constipation and nausea. She was previously seen by Dr. Dawson and Dr. Vasquez prior to moving to [place] in 2017 after getting . She moved back to [place] recently and was seen by Dr. Cadet in 02/2022 for chronic constipation, abdominal pain and nausea and this global technical writer on 08/19/2022. ?? Briefly, she was started on Linzess around 2013 for chronic constipation which improved her constipation and resulted in BMs every other day. In 2016, she moved to [place] and stopped Linzess as she felt her [...] magnesium. Gastric emptying study 05/04/2022 was normal. ?? Since our last visit, Amitiza seemed to [...] polyps. She subsequently had another colonoscopy in [place] which she reports was normal. In early 2020, she had a colonoscopy in [place] which was reported to be negative for adenoma. We do not have these reports at this time. ?? PROBLEM LIST Patient Active Problem List Diagnosis Date Noted ??? Irritable bowel syndrome without diarrhea 04/15/2016 Priority: Medium ??? Syncope 01/25/2014 Priority: Medium ??? Intractable 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 aura 10/05/2013 Priority: Medium Problem list name updated by automated process. Provider to review ??? Autonomic nervous system disorder 10/05/2013 Priority: Medium ??? Abdominal pain, generalized 10/05/2013 Priority: Medium PERTINENT MEDICATIONS: Current Outpatient Medications Medication ??? AIMOVIG 140 MG/ML injection ??? clonazePAM (KLONOPIN) 0.5 MG tablet ??? DULoxetine (CYMBALTA) 30 MG capsule ??? fludrocortisone (FLORINEF) 0.1 MG tablet ??? hydrOXYzine (ATARAX) 50 MG tablet ??? KURVELO 0.15-30 MG-MCG tablet ??? linaclotide (LINZESS) 290 MCG capsule ??? ondansetron (ZOFRAN ODT) 4 MG ODT tab ??? order for DME ??? SUMAtriptan (IMITREX) 100 MG tablet ??? ubrogepant (UBRELVY) 100 MG tablet ??? clonazePAM (KLONOPIN) 0.5 MG tablet ??? diazepam (VALIUM) 5 MG tablet ??? ipratropium (ATROVENT) 0.03 % nasal spray ??? lubiprostone (AMITIZA) 24 MCG capsule ??? lubiprostone (AMITIZA) 8 MCG capsule ??? lubiprostone (AMITIZA) 8 MCG capsule ??? meclizine (ANTIVERT) 25 MG tablet ??? prochlorperazine (COMPAZINE) 5 MG tablet No current facility-administered medications for this visit. PHYSICAL EXAMINATION: Vitals BP 128/88 Pulse (P) 66 Ht (P) 1.702 m (5' 7) Wt (P) 75.3 kg (165 lb 14.4 oz) LMP 10/11/2022 (Approximate) SpO2 (P) 100% BMI (P) 25.98 kg/m?? Wt Wt Readings from Last 2 Encounters: 12/09/22 (P) 75.3 kg (165 lb 14.4 oz) 08/19/22 71.2 kg (157 lb) Gen: Pt sitting up on exam table in NAD, interactive and cooperative on exam Eyes: sclerae anicteric, no injection Cardiac: RRR, nl S1, S2, radial pulses +2 b/l, no peripheral edema Resp: Clear on anterior exam GI: Normoactive BS, abd soft, Skin: Warm, dry, no jaundice, nails appear healthy Neuro: alert, oriented, answers questions appropriately PERTINENT STUDIES: Lab on 03/04/2022 Component Date Value Ref Range Status ??? Immunoglobulin A 03/04/2022 149 84 - 499 mg/dL Final ? ? Tissue Transglutaminase Antibody I* 03/04/2022 0.3 <7.0 U/mL Final ? ? Tissue Transglutaminase Antibody I* 03/04/2022 <0.6 <7.0 U/mL Final ??? Bilirubin Total 03/04/2022 0.2 0.2 - 1.3 mg/dL Final ? ? Bilirubin Direct 03/04/2022 <0.1 0.0 - 0.2 mg/dL Final ??? Protein Total 03/04/2022 7.6 6.8 - 8.8 g/dL Final ??? Albumin 03/04/2022 3.4 3.4 - 5.0 g/dL Final ??? Alkaline Phosphatase 03/04/2022 50 40 - 150 U/L Final ??? AST 03/04/2022 23 0 - 45 U/L Final ??? ALT 03/04/2022 22 0 - 50 U/L Final ??? Sodium 03/04/2022 135 133 - 144 mmol/L Final ??? Potassium 03/04/2022 4.1 3.4 - 5.3 mmol/L Final ??? Chloride 03/04/2022 108 94 - 109 mmol/L Final ??? Carbon Dioxide (CO2) 03/04/2022 25 20 - 32 mmol/L Final ??? Anion Gap 03/04/2022 2 (L) 3 - 14 mmol/L Final ??? Urea Nitrogen 03/04/2022 9 7 - 30 mg/dL Final ??? Creatinine 03/04/2022 0.56 0.52 - 1.04 mg/dL Final ??? Calcium 03/04/2022 9.3 8.5 - 10.1 mg/dL Final ??? Glucose 03/04/2022 82 70 - 99 mg/dL Final ? ? GFR Estimate 03/04/2022 >90 >60 mL/min/1.73m2 Final ??? TSH 03/04/2022 0.65 0.40 - 4.00 mU/L Final ??? Vitamin B12 03/04/2022 331 193 - 986 pg/mL Final ??? WBC Count 03/04/2022 4.7 4.0 - 11.0 10e3/uL Final ??? RBC Count 03/04/2022 4.49 3.80 - 5.20 10e6/uL Final ??? Hemoglobin 03/04/2022 14.0 11.7 - 15.7 g/dL Final ??? Hematocrit 03/04/2022 40.7 35.0 - 47.0 % Final ??? MCV 03/04/2022 91 78 - 100 fL Final ??? MCH 03/04/2022 31.2 26.5 - 33.0 pg Final ??? MCHC 03/04/2022 34.4 31.5 - 36.5 g/dL Final ??? RDW 03/04/2022 12.9 10.0 - 15.0 % Final ??? Platelet Count 03/04/2022 222 150 - 450 10e3/uL Final ??? % Neutrophils 03/04/2022 64 % Final ??? % Lymphocytes 03/04/2022 29 % Final ??? % Monocytes 03/04/2022 6 % Final ??? % Eosinophils 03/04/2022 1 % Final ??? % Basophils 03/04/2022 0 % Final ??? % Immature Granulocytes 03/04/2022 0 % Final ? ? NRBCs per 100 WBC 03/04/2022 0 <1 /100 Final ??? Absolute Neutrophils 03/04/2022 3.0 1.6 - 8.3 10e3/uL Final ??? Absolute Lymphocytes 03/04/2022 1.4 0.8 - 5.3 10e3/uL Final ??? Absolute Monocytes 03/04/2022 0.3 0.0 - 1.3 10e3/uL Final ??? Absolute Eosinophils 03/04/2022 0.0 0.0 - 0.7 10e3/uL Final ??? Absolute Basophils 03/04/2022 0.0 0.0 - 0.2 10e3/uL Final ? ? Absolute Immature Granulocytes 03/04/2022 0.0 <=0.4 10e3/uL Final ??? Absolute NRBCs 03/04/2022 0.0 10e3/uL Final documented in this encounter Nursing Notes * Vivian Carter - 12/09/2022 2:00 PM CDT Chief Complaint Patient presents with ??? Follow Up Vitals: 12/09/22 1355 BP: 128/88 Pulse: (P) 66 SpO2: (P) 100% Weight: (P) 75.3 kg (165 lb 14.4 oz) Height: (P) 1.702 m (5' 7) Body mass index is 25.98 kg/m?? (pended). Vivian Carter documented in this encounter Plan of Treatment Upcoming Encounters Date Type Department Care Team (Late st Contact Info) Description 09/29/2023 9:30 AM BAKERY AND DELI SALES MANAGER Ancillary Procedure [facility] [address] [place] [phone] Zain Quintana MD 500 [place] [address] 10/01/2023 9:30 AM BAKERY AND DELI SALES MANAGER Ancillary Procedure [facility] [address] [facility] [address] [place] [phone] Zain Quintana MD 500 [place], [place] 290[address] 10/18/2023 PRE VISIT [facility] [address] [phone] Airam Hodges PA-C 500 [place], [place] [address] Previsit 10/21/2023 11:30 AM BAKERY AND DELI SALES MANAGER Therapy Visit [facility] [id number] [place] [address] [address] [place] [address] Zain Quintana MD 500 [place], [place] 6787[address] Lainey Simon, JAY [address] [place] [address] 10/26/2023 1:00 PM BAKERY AND DELI SALES MANAGER Virtual Visit [facility] [address] [phone] Latricia Pettit PA-C 9 [place] [address] 10/28/2023 10:50 AM BAKERY AND DELI SALES MANAGER Therapy Visit [facility] [address] [facility] [address] [place] [address] Zain Quintana MD 500 [place] [address] [place] [address] [place] [address] 11/04/2023 10:50 AM BAKERY AND DELI SALES MANAGER Therapy Visit [facility] [address] [facility] [address] [place] [address] Zain Quintana MD 500 [place] [address] [place] [address] [place] [address] 11/24/2023 10:40 AM CDT Office Visit [facility] [address] [place] [phone] Abby Vasquez MD [address] [place] [address] 01/13/2024 10:00 AM CDT Virtual Visit [facility]rology [facility] [address] [place] [phone] Rosalba Pendleton, MAXIMILIANO [address] IJ0237SC [place] [address] 01/20/2024 8:00 PM CDT Therapy Visit [facility] [place] [phone] [address] [address] 03/14/2024 10:30 AM CDT Office Visit [facility] [place] [phone] [facility] [address] [place] [phone] Abhishek Acevedo PA-C [address] [facility] [address] [place] [address] 03/21/2024 11:30 AM CDT Office Visit [facility] [address] 4th [place] [phone] Zain Quintana MD [address] [place] [address] [place], [place] [address] documented as of this encounter Visit Diagnoses Diagnosis Constipation, unspecified constipation type- Primary documented in this encounter Additional Health Concerns Assessment Noted Time PHQ-9 Depression Total Score: 11 022 11:52 AM CDT documented as of this encounter Care Teams Fur Designer Relationship Specialty Start Date End Date Monty Musa MD [facility] [address] [place] [address] PCP - General Family Medicine 08/13/21 Alfonso Tang [facility] [address] [place] [address] Family Practice 08/13/21 Dayanara Bee MD [address] [facility] 75 [place] [address] Pediatrics 12/26/14 Min Lange MD [address] [facility] 75 [place] [address] Neurology 03/30/16 Marlo Madsen MD [address] [facility] 508 [place] [address] Cardiology 10/27/16 Mel Buckley, RN Nurse Coordinator Physical Medicine and Rehabilitation 12/02/16 Douglas Cadet MD 500 [place] [address] Gastroenterology 08/13/21 Rosalba Pendleton APRN CHASSIS DRIVER [address] [place] [address] Nurse Practitioner Neurology 09/05/21 Rosalba Pendleton APRN CHASSIS DRIVER [address] [place] [address] [id number] Assigned Neuroscience Provider 11/09/21 Douglas Cadet MD 500 [place] [address] Assigned Gastroenterology Provider 03/14/22 09/03/23 Marlo Madsen MD [address] [place] [address] 508 [place], [place] [phone] Assigned Heart and Vascular Provider 03/14/22 Abby Vasquez MD [address] [place] [address] [id number] Gastroenterology 07/16/22 Abby Vasquez MD [address] [place] [address] Assigned PCP 09/26/22 documented as of this encounter
--- OUTSIDE RECORDS SUMMARY | 2023-09-27 15:48 | XMS_ITS | Encounter Summary ---
Author Name Unknown Organization [place] Address [address] [facility] [place] [address] Care Team Providers Care Resident Care Aide Name Role Phone Monty Musa MD Primary Care Provider [phone] Alfonso aTng Unavailable Unavailable Dayanara Bee MD Unavailable [phone] Min Lange MD Unavailable Unavailable Marlo Madsen MD Unavailable [phone] Mel Buckley RN Unavailable [phone] Douglas Cadet MD Unavailable [phone] Rosalba Pendleton APRN CHEMISTRY TEACHER Unavaila ble Rosalba Pendleton APRN CHEMISTRY TEACHER Unavaila ble Douglas Cadet MD Unavailable [phone] Marlo Madsen MD Unavailable [phone] Abby Vasquez MD Unavailable Abby Vasquez MD Unavailable Reason for Visit * Reason Comments Follow Up Encounter Details Date Type Department Care Team (Late st Contact Info) Description 04/02/2023 9:00 AM CDT Virtual Visit [facility] Neurology Clinic [address] 3rd [place] [phone] Rosalba Pendleton APRN CHEMISTRY TEACHER [address] [place] [id number] [place] [address] Migraine without aura and without status migrainosus, not intractable (Primary Dx) Social History Tobacco Use Types Packs/Day Years Used Date Smoking Tobacco: Never Smokeless Tobacco: Never Tobacco Cessation:Counseling Given: Not Answered Alcohol Use Standard Drinks/Week Comments No 0 (1 standard drink = 0.6 oz pur e alcohol) PHQ-2 Answer Date Recorded PHQ-2 Score 2 04/02/2023 Sex and Gender Information Value Date Recorded Sex Assigned at Female 10/31/2021 7:59 AM ART GILDER Gender Identity Female 10/31/2021 7:59 AM ART GILDER Sexual Orientation Straight 10/31/2021 7: 59 AM ART GILDER COVID-19 Exposure Response Date Recorded In the last 10 days, have jan u been in contact with someone who was confirmed or suspected to have Coronavirus/COVID-19? No / Unsure 04/03/2023 11:46 AM CDT documented as of this encounter Patient Instructions * Patient Instructions* Rosalba Pendleton APRN CNP - 04/02/2023 9:00 AM CDT Plan: Continue Aimovig for migraine prevention Rescue treatment Prochlorperazine and/or ondansetron as needed for migraine symptoms Retrial of zolmitriptan as needed for migraine rescue May consider antimigraine devices-Cefaly, Nerivio, Relivion for migraine rescue and prevention Follow up in 3-6 months if stable or sooner if needed documented in this encounter Progress Notes * Rosalba Pendleton APRN CNP - 04/02/2023 9:00 AM CDT Latricia is a 33 year old who is being evaluated via a billable video visit. Subjective Latricia is a 33 year old, presenting for the following health issues: Follow Up Lats visit 01/14/2022, see note for sam Saw Dr Lange in 2016 -note reviewed Was seen at [facility]-note reviewed -last visit in January 2020 Doing well. Has a cold today but doing ok. Will check it out if gets worse. Severe migriane 3-4/months and may be another 5-6/months migraines can function with. Primarily right sided but behind right eye -when has a migraine and resolves when migraine resolves. Day before migraines feeling off and than next morning wakes up with migraine. Describes migraine symptoms. Has been doing Aimoving and happy with migraine frequency down -3-4/months vs 20/month. Rescue treatment Sumatriptan oral and injectable did not work Eletriptan -did not work Rizatriptan-did not work migranal nasal -no help Naratriptan -did not work Prochlorperazine works for the nausea but prefers ondansetron -works well Ubrelvy did not work Nurtec-no effect Zolmitriptan -worked well and than stop working 4 years ago Topamax, zonisamide, Depakote and gabapentin Botox -a little bit improvement but not much Patient is happy with her prevention but not happy with the rescue because when migraine comes tendto last at least 24 hours an sometimes 36 hours and causes impact on daily activities and life during migraine flare ups. Plan is to optimize migraine rescue Plan: Continue Aimovig for migraine prevention Rescue treatment Prochlorperazine and/or ondansetron as needed for migraine symptoms Retrial of zolmitriptan as needed for migraine rescue May consider antimigraine devices-Cefaly, Nerivio, Relivion for migraine rescue and prevention Follow up in 3-6 months if stable or sooner if needed Last Patient-Answered HIT-6 Questionnaire 04/02/2023 8:42 AM HIT-6 When you have headaches, how often is [...] or daily activities because of your headaches 10 In the past 4 weeks, how often have you felt fed up or irritated because of your headaches 10 In the past 4 weeks, how often did headaches limit your ability to concentrate on work or daily activities 10 HIT-6 Total Score 64 No change in score 64 on 01/13/2022 Objective Vitals - Patient Reported Pain Score: Mild Pain (3) Pain Loc: Head Physical Exam GENERAL: Healthy, alert and no distress RESP: No audible wheeze, cough, or visible cyanosis. No visible retractions or increased work of breathing. NEURO: Face is symmetrical and symmetrical facial expressions, no weakness Mentation and speech appropriate for age. PSYCH: Mentation appears normal, affect normal, judgement and insight intact, normal speech and appearance well-groomed. I discussed all my recommendations with Latricia Hatch who verbalizes understanding and comfortable with the plan. 29 minutes spent on the date of the encounter doing video access, chart review, results review, meds review, treatment plan, documentation and further activities as noted above Rosalba Pendleton APRN, CNP [facility] Headache certified [facility] Neurology [facility] Video-Visit Details Type of service: Video Visit Originating Location (pt. Location): Home Distant Location (provider location): Off-site Platform used for Video Visit: AmWell documented in this encounter Nursing Notes * Mikala Pierce - 04/02/2023 9:00 AM CDT Is the patient currently in the state of [place]? YES Visit mode:VIDEO If the visit is dropped, the patient can be reconnected by: VIDEO VISIT: Text to cell phone: [phone] Will anyone else be joining the visit? NO How would you like to obtain your AVS? MyChart Are changes needed to the allergy or medication list? NO Reason for visit: Follow Up documented in this encounter Plan of Treatment Upcoming Encounters Date Type Department Care Team (Late st Contact Info) Description 09/29/2023 9:30 AM ART GILDER Ancillary Procedure [address] [place] [address] Zain Quintana MD [address] [place], [place] 7[address]15 10/01/2023 9:30 AM ART GILDER Ancillary Procedure [facility] [address] [place] [phone] Zain Quintana MD [address] [place], [place] [phone] 10/18/2023 PRE VISIT [facility] [address] [phone] Airam Hodges PA-C 500 [place], [place] 419975 Previsit 10/21/2023 11:30 AM ART GILDER Therapy Visit [place] [id number] [facility] [address] [place] [address] Zain Quintana MD [address] [place], [place] 337405 [place] [address] [place], [place] 10[address]37 10/26/2023 1:00 PM ART GILDER Virtual Visit [facility] Gastroenterology Clinic [place] [address] [phone] Latricia Pettit PA-C [address] [place] [address] 493985 10/28/2023 10:50 AM ART GILDER Therapy Visit [address] [place], [place] 8[address] Zain Quintana MD [address] [place] [address] [place] [address] [place] [address] 11/04/2023 10:50 AM ART GILDER Therapy Visit [facility] Rehabilitation Services [facility] [address] [facility] [address] [place] [address] Zain Quintana MD [address] [place] [address] Lainey Simon, PT [address] [place] [address] 11/24/2023 10:40 AM CDT Office Visit [facility] Gastroenterology Clinic [address]th [place] [phone] Abby Vasquez MD [address] [place] [address] 01/13/2024 10:00 AM CDT Virtual Visit [facility] Neurology Clinic [address]rd [place] [phone] Rosalba Pendleton APRN [address] HY6681IE [place] [address] 01/20/2024 8:00 PM CDT Therapy Visit [facility] Sleep [address] [phone] 03/14/2024 10:30 AM CDT Office Visit [facility] Sleep [facility] [address] [place] [phone] Abhishek Acevedo PA-C [address] [address] 03/21/2024 11:30 AM CDT Office Visit [facility]al [facility] [place] 322859 [facility] 4th [place] [phone] Zain Quintana MD [address] [place] [address] 840285 documented as of this encounter Visit Diagnoses Diagnosis Migraine without aura and without status migrainosus, not intractable- Primary Migraine without aura, without mention of intractable migraine without mention of status migrainosus documented in this encounter Additional Health Concerns Assessment Noted Time PHQ-9 Depression Total Score: 11 022 11:52 AM CDT documented as of this encounter Care Teams Resident Care Aide Relationship Specialty Start Date End Date Monty Musa MD [facility] [address] [place] [address] PCP - General Family Medicine 08/13/21 Alfonso Tang [facility] [address] [place] [address] Family Practice 08/13/21 Dayanara Bee MD [address] [address] Pediatrics 12/26/14 Min Lange MD 420 [facility] 75 [place] [address] Neurology 03/30/16 Marlo Madsen MD [address] [place] [address] 508 [place], [place] 901315 Cardiology 10/27/16 Mel Buckley, RN Nurse Coordinator Physical Medicine and Rehabilitation 12/02/16 Douglas Cadet MD [address] [place] [address] [place] [address] Gastroenterology 08/13/21 Rosalba Pendleton APRN CHEMISTRY TEACHER [address] [place] [address] Nurse Practitioner Neurology 09/05/21 Rosalba Pendleton APRN CHEMISTRY TEACHER [address] [place] [address] Assigned Neuroscience Provider 11/09/21 Douglas Cadet MD 500 [place] [address] Assigned Gastroenterology Provider 03/14/22 09/03/23 Marlo Madsen MD [address] [place] [address] 508 [place] [address] Assigned Heart and Vascular Provider 03/14/22 Abby Vasquez MD [address] [place] [address] Gastroenterology 07/16/22 Abby Vasquez MD [address] [place] [address] Assigned PCP 09/26/22 documented as of this encounter
--- OUTSIDE RECORDS SUMMARY | 2023-09-27 15:49 | XMS_ITS | Encounter Summary ---
Author Name Unknown Organization [place] Address [address] [facility] [place] [address] Care Team Providers Care Ceramics Test Engineer Name Role Phone Monty Musa MD Primary Care Provider [phone] Alfonso Tang Unavailable Unavailable Dayanara Bee MD Unavailable [phone] Min Lange MD Unavailable Unavailable Marlo Madsen MD Unavailable [phone] Mel Buckley RN Unavailable [phone] Douglas Cadet MD Unavailable [phone] Rosalba Pendleton APRN UX DESIGN LEAD Unavaila ble Rosalba Pendleton APRN UX DESIGN LEAD Unavaila ble Douglas Cadet MD Unavailable [phone] Marlo Madsen MD Unavailable [phone] Abby Vasquez MD Unavailable Abby Vasquez MD Unavailable Airam Hodges PA-C Unavailable [phone] Encounter Details Date Type Department Care Team (Late st Contact Info) Description 11/03/2022 [facility] Neurology [facility] [facility] [address] [place] [phone] Cierra Perez RN Social History Tobacco Use Types Packs/Day Years Used Date Smoking Tobacco: Never Smokeless Tobacco: Never Alcohol Use Standard Drinks/Week Comments No 0 (1 standard drink = 0.6 oz pur e alcohol) PHQ-2 Answer Date Recorded PHQ-2 Score 3 05/28/2022 Sex and Gender Information Value Date Recorded Sex Assigned at Female 10/31/2021 7:59 AM MANAGER NET Gender Identity Female 10/31/2021 7:59 AM MANAGER NET Sexual Orientation Straight 10/31/2021 7: 59 AM MANAGER NET documented as of this encounter Plan of Treatment Upcoming Encounters Date Type Department Care Team (Late st Contact Info) Description 09/29/2023 9:30 AM MANAGER NET Ancillary Procedure [facility] [address] [facility] [address] [place] [phone] Zain Quintana MD 500 [place], [place] 5[address]35 10/01/2023 9:30 AM MANAGER NET Ancillary Procedure [facility] [address] [facility] [address] [place] [phone] Zain Quintana MD 500 [place], [place] 26[address]35 10/18/2023 PRE VISIT [facility] Colon [facility]al Surgery Clinic [address]th [place] [phone] Airam Hodges PA-C 500 [place], [place] 6[address]35 Previsit 10/21/2023 11:30 AM MANAGER NET Therapy Visit [facility] Rehabilitation Services [facility] [address] [facility] [address] [place] [address] Zain Quintana MD 500 [place], [place] 1686[address] Lainey Simon, PT [address] [place] [address] 10/26/2023 1:00 PM MANAGER NET Virtual Visit [facility] Gastroenterology [address] [phone] Latricia Pettit PA-C [address] [place] [address] 10/28/2023 10:50 AM MANAGER NET Therapy Visit [address] [address] Zain Quintana MD [address] [place] [address] Lainey Simon, PT [address] [place] [address] 11/04/2023 10:50 AM MANAGER NET Therapy Visit [address] [address] Zain Quintana MD [address] [place] [address] Lainey Simon, PT [address] [place] [address] 11/24/2023 10:40 AM CDT Office Visit [facility] Gastroenterology Clinic [address] [phone] Abby Vasquez MD [address] [place] [address] 002525 01/13/2024 10:00 AM CDT Virtual Visit [facility] Neurology Clinic [address] 3rd [place] [phone] Rosalba Pendleton APRN [address] HF2314RF [place] [address] 01/20/2024 8:00 PM CDT Therapy Visit [facility] Sleep [facility] [address] [place] [phone] 03/14/2024 10:30 AM CDT Office Visit [facility] [address] [place] [phone] Abhishek Acevedo PA-C [address] [phone] 03/21/2024 11:30 AM CDT Office Visit [facility]al Surgery [facility] [address] 4th [place] [phone] Zain Quintana MD [address] [place] [address] 248995 documented as of this encounter Visit Diagnoses Not on filedocumented in this encounter Additional Health Concerns Infection Onset Date Last Indicated Resolved Time Rule Out COVID-19 04/03/2023 04/03/2023 04/04/2023 6:30 PM CDT Assessment Noted Time PHQ-9 Depression Total Score: 11 022 11:52 AM CDT documented as of this encounter Care Teams Ceramics Test Engineer Relationship Specialty Start Date End Date Monty Musa MD [facility] MEDICAL [facility] [address] [place] [address] PCP - General Family Medicine 08/13/21 Alfonso Tang [facility] [address] [place] [address] [facility] Practice 08/13/21 Dayanara Bee MD [address] 574925 Pediatrics 12/26/14 Min Lange MD [address] [address] Neurology 03/30/16 Marlo Madsen MD [address] [place] [address] Cardiology 10/27/16 Mel Buckley, RN Nurse Coordinator Physical Medicine and Rehabilitation 12/02/16 Douglas Cadet MD 500 [place] [address] Gastroenterology 08/13/21 Rosalba Pendleton APRN UX DESIGN LEAD [address] [place] [address] [id number] Nurse Practitioner Neurology 09/05/21 Rosalba Pendleton APRN UX DESIGN LEAD [address] [place] [address] Assigned Neuroscience Provider 11/09/21 Douglas Cadet MD 500 [place] [address] Assigned Gastroenterology Provider 03/14/22 09/03/23 Marlo Madsen MD [address] [place] [address] Assigned Heart and Vascular Provider 03/14/22 Abby Vasquez MD [address] [place] [address] 691275 Gastroenterology 07/16/22 Abby Vasquez MD [address] [place] [address] 861035 Assigned PCP 09/26/22 Airam Hodges PA-C [address] [place] [address] [phone] Physician Operations And Maintenance Technican Surgery 07/19/23 documented as of this encounter
--- OUTSIDE RECORDS SUMMARY | 2023-09-27 15:49 | XMS_ITS | Encounter Summary ---
Author Name Unknown Organization [place] Address [address] [facility] [place] [address] Care Team Providers Care Structural Steel Trades Worker Name Role Phone Monty Musa MD Primary Care Provider [phone] Alfonso Tang Unavailable Unavailable Dayanara Bee MD Unavailable [phone] Min Lange MD Unavailable Unavailable Marlo Madsen MD Unavailable [phone] Mel Buckley RN Unavailable [phone] Douglas Cadet MD Unavailable [phone] Rosalba Pendleton APRN INDIVIDUAL PENSION CONSULTANT Unavaila ble Rosalba Pendleton APRN INDIVIDUAL PENSION CONSULTANT Unavaila ble Douglas Cadet MD Unavailable [phone] Marlo Madsen MD Unavailable [phone] Abby Vasquez MD Unavailable Abby Vasquez MD Unavailable Reason for Visit * Reason Onset Date Comments Prior Auth - Medication 11/03/2022 AIMOVIG 140 MG/ML injection--APPROVED Encounter Details Date Type Department Care Team (Late st Contact Info) Description 11/03/2022 Telephone [facility] Neurology [address] [place] [phone] Cierra Perez RN Prior Auth - Medication (AIMOVIG 140 MG/ML injection--APPROVED) Social History Tobacco Use Types Packs/Day Years Used Date Smoking Tobacco: Never Smokeless Tobacco: Never Alcohol Use Standard Drinks/Week Comments No 0 (1 standard drink = 0.6 oz pur e alcohol) PHQ-2 Answer Date Recorded PHQ-2 Score 3 05/28/2022 Sex and Gender Information Value Date Recorded Sex Assigned at Female 10/31/2021 7:59 AM RESIDENTIAL HOUSEKEEPER Gender Identity Female 10/31/2021 7:59 AM RESIDENTIAL HOUSEKEEPER Sexual Orientation Straight 10/31/2021 7: 59 AM RESIDENTIAL HOUSEKEEPER documented as of this encounter Miscellaneous Notes * Telephone Encounter - Adriana Salinas - 11/09/2022 11:02 AM CST Images from the original note were not included. Prior Authorization Approval Authorization Effective Date: 10/09/2022 Authorization Expiration Date: 11/08/2023 Medication: AIMOVIG 140 MG/ML injection--APPROVED Approved Dose/Quantity: Reference #: Insurance Company: [employer] - Expected CoPay: CoPay Card Available: Foundation Assistance Needed: Which Pharmacy is filling the prescription (Not needed for infusion/clinic administered): [facility] [id number] [place] [address] Pharmacy Notified: Yes Patient Notified: Yes Instructed pharmacy to notify patient when script is ready to picker/puller/ship. DENTIAL HOUSEKEEPER * Telephone Encounter - Adriana Salinas - 11/08/2022 11:51 AM CST Images from the original note were not included. PA Initiation Medication: AIMOVIG 140 MG/ML injection Insurance Company: [employer] - Pharmacy Filling the Rx: [facility] [id number] [place] [id number] [place] [address] Filling Pharmacy Filling Pharmacy Start Date: 11/08/2022 DENTIAL HOUSEKEEPER * Telephone Encounter - Cierra Perez RN - 11/03/2022 3:06 PM CST Prior Authorization Retail Medication Request Medication/Dose: AIMOVIG 140 MG/ML injection ICD code (if different than what is on RX): Previously Tried and Failed: Botox, zonisamide, atrovastatin, sumatriptan, eletriptan, rizatriptan, zolmitriptan, topiramate, gabapentin, Rationale: migraine Has been using Aimovig Insurance Name: [employer] Pharmacy Information (if different than what is on RX) Name: Phone: DENTIAL HOUSEKEEPER documented in this encounter Plan of Treatment Upcoming Encounters Date Type Department Care Team (Late st Contact Info) Description 09/29/2023 9:30 AM RESIDENTIAL HOUSEKEEPER Ancillary Procedure [address] [place] [phone] Zain Quintana MD 500 [place], [place] [phone] 10/01/2023 9:30 AM RESIDENTIAL HOUSEKEEPER Ancillary Procedure [facility] [address] [facility] [address] [place] [phone] Zain Quintana MD 500 [place], [place] [address] 10/18/2023 PRE VISIT [facility] Colon [facility]al Surgery Clinic [place] 036029 [facility] 4th [place] [phone] Airam Hodges PA-C 500 [place], [place] 722445 Previsit 10/21/2023 11:30 AM RESIDENTIAL HOUSEKEEPER Therapy Visit [address] [address] Zain Quintana MD 500 [place] [address] Lainey Simon, PT [address] [place] [address] 10/26/2023 1:00 PM RESIDENTIAL HOUSEKEEPER Virtual Visit [facility] Gastroenterology Clinic [address] [phone] Latricia Pettit PA-C [address] [place] [address] 10/28/2023 10:50 AM RESIDENTIAL HOUSEKEEPER Therapy Visit [address] [address] Zain Quintana MD [address] [place] [address] Lainey Simon, JAY [address] [place] [address] 11/04/2023 10:50 AM RESIDENTIAL HOUSEKEEPER Therapy Visit [address] [address] Zain Quintana MD [address] [place] [address] Lainey Simon, JAY [address] [place] [address] 11/24/2023 10:40 AM CDT Office Visit [facility] Gastroenterology Clinic [address] [place] [phone] Abby Vasquez MD [address] [place] [address] 175285 01/13/2024 10:00 AM CDT Virtual Visit [facility] Neurology Clinic [address] [phone] Rosalba Pendleton, SPONGE FISHERMAN INDIVIDUAL PENSION CONSULTANT [address] [place] [address] [id number] [place], [place] 6[address]145 01/20/2024 8:00 PM CDT Therapy Visit [facility] Sleep [address] [phone] 03/14/2024 10:30 AM CDT Office Visit [facility] Sleep [address] [phone] Abhishek Acevedo PA-C [address] [phone] 03/21/2024 11:30 AM CDT Office Visit [facility]al Surgery Clinic [address] [phone] Zain Quintana MD [address] [place] [address] documented as of this encounter Visit Diagnoses Not on filedocumented in this encounter Additional Health Concerns Assessment Noted Time PHQ-9 Depression Total Score: 11 022 11:52 AM CDT documented as of this encounter Care Teams Structural Steel Trades Worker Relationship Specialty Start Date End Date Monty Musa MD [facility] [address] [place] [address] PCP - General Family Medicine 08/13/21 Kitty Alfonso Odalis [facility] [address] [place] [address] [facility] 08/13/21 Dayanara Bee MD 420 [facility] 75 [place], [place] 8[address] Pediatrics 12/26/14 Min Lange MD 420 [facility] 75 [place] [address] Neurology 03/30/16 Marlo Madsen MD 420 [facility] 508 [place], [place] 6[address] Cardiology 10/27/16 Mel Buckley, DIAZ Nurse Coordinator Physical Medicine and Rehabilitation 12/02/16 Douglas Cadet MD 500 [place], [place] 0899[address] Gastroenterology 08/13/21 Rosalba Pendleton APRN INDIVIDUAL PENSION CONSULTANT [address] [place] [address] 965215 Nurse Practitioner Neurology 09/05/21 Rosalba Pendleton APRN INDIVIDUAL PENSION CONSULTANT [address] [place] [address] 777855 Assigned Neuroscience Provider 11/09/21 Douglas Cadet MD 500 [place] [address] Assigned Gastroenterology Provider 03/14/22 09/03/23 Marlo Madsen MD [address] [place] [address] 508 [place] [address] Assigned Heart and Vascular Provider 03/14/22 Abby Vasquez MD [address] [place] [address] 448465 Gastroenterology 07/16/22 Abby Vasquez MD [address] [place] [address] Assigned PCP 09/26/22 documented as of this encounter
--- OUTSIDE RECORDS SUMMARY | 2023-09-27 15:49 | XMS_ITS | Encounter Summary ---
Author Name Unknown Organization Fields Address [address] [place] [address] Care Team Providers Care Travel Agency Manager Name Role Phone Monty Musa MD Primary Care Provider [phone] Alfonso Tang Unavailable Unavailable Dayanara Bee MD Unavailable [phone] Min Lange MD Unavailable Unavailable Marlo Madsen MD Unavailable [phone] Mel Buckley RN Unavailable [phone] oDuglas Cadet MD Unavailable [phone] Rosalba Pendleton APRN DATA COLLECTION ASSOCIATE Unavaila ble Rosalba Pendleton APRN DATA COLLECTION ASSOCIATE Unavaila ble Douglas Cadet MD Unavailable [phone] Marlo Madsen MD Unavailable [phone] Abby Vasquez MD Unavailable Abby Vasquze MD Unavailable Airam Hodges PA-C Unavailable [phone] Encounter Details Date Type Department Care Team (Late st Contact Info) Description 08/03/2022 [facility] Gastroenterology Clinic [place] [address] [phone] Stephani Wheatley MA Social History Tobacco Use Types Packs/Day Years Used Date Smoking Tobacco: Never Smokeless Tobacco: Never Alcohol Use Standard Drinks/Week Comments No 0 (1 standard drink = 0.6 oz pur e alcohol) PHQ-2 Answer Date Recorded PHQ-2 Score 3 05/28/2022 Sex and Gender Information Value Date Recorded Sex Assigned at Female 10/31/2021 7:59 AM SOIL FERTILITY SPECIALIST Gender Identity Female 10/31/2021 7:59 AM SOIL FERTILITY SPECIALIST Sexual Orientation Straight 10/31/2021 7: 59 AM SOIL FERTILITY SPECIALIST COVID-19 Exposure Response Date Recorded In the last 10 days, have yo u been in contact with someone who was confirmed or suspected to have Coronavirus/COVID-19? No / Unsure 07/14/2022 9:15 PM CDT documented as of this encounter Plan of Treatment Upcoming Encounters Date Type Department Care Team (Late st Contact Info) Description 09/29/2023 9:30 AM SOIL FERTILITY SPECIALIST Ancillary Procedure [facility] [address] [facility] [address] [place] [phone] Zain Quintana MD 500 [place], [place] 86[address] 10/01/2023 9:30 AM SOIL FERTILITY SPECIALIST Ancillary Procedure [facility] [address] [facility] [address] [place] [phone] Zain Quintana MD 500 [place] [address] 10/18/2023 PRE VISIT [facility] Colon and Rectal Surgery Clinic [place] [address] [phone] Airam Hodges PA-C 500 [place], [place] 288935 Previsit 10/21/2023 11:30 AM SOIL FERTILITY SPECIALIST Therapy Visit [facility] Rehabilitation Services [address] [address] Zain Quintana MD [address] [place] [address] Lainey Simon, JAY [address] [place] [address] 10/26/2023 1:00 PM SOIL FERTILITY SPECIALIST Virtual Visit [facility] Gastroenterology [address] [phone] Latricia Pettit PA-C [address] [place] [address] 420305 10/28/2023 10:50 AM SOIL FERTILITY SPECIALIST Therapy Visit [address] [address] Zain Quintana MD [address] [place] [address] Lainey Simon PT [address] [place] [address] 11/04/2023 10:50 AM SOIL FERTILITY SPECIALIST Therapy Visit [address] [address] Zain Quintana MD [address] [place] [address] Lainey Simon PT [address] [place] [address] 11/24/2023 10:40 AM CDT Office Visit [facility] Gastroenterology Clinic [address] [phone] Abby Vasquez MD [address] [place] [address] 01/13/2024 10:00 AM CDT Virtual Visit [facility] Neurology Clinic [address] 3rd [place] [phone] Rosalba Pendleton, MAXIMILIANO DATA COLLECTION ASSOCIATE [address] [place] [address] [id number] [place] [address] 01/20/2024 8:00 PM CDT Therapy Visit [facility] Sleep [facility] [address] [place] [phone] 03/14/2024 10:30 AM CDT Office Visit [address] [phone] Abhishek Acevedo PA-C 5228 [facility] 103 [place], [place] [id number] 03/21/2024 11:30 AM CDT Office Visit [facility] Colon and Rectal Surgery Clinic [address] 4th [place] [phone] Zain Quintana MD [address] [place] [address] 690275 documented as of this encounter Visit Diagnoses Not on filedocumented in this encounter Additional Health Concerns Infection Onset Date Last Indicated Resolved Time Rule Out COVID-19 04/03/2023 04/03/2023 04/04/2023 6:30 PM CDT Assessment Noted Time PHQ-9 Depression Total Score: 11 05/28/ 022 11:52 AM CDT documented as of this encounter Care Teams Travel Agency Manager Relationship Specialty Start Date End Date Monty Musa MD [facility] [address] [place] [address] PCP - General Family Medicine 08/13/21 Alfonso Tang [facility] MEDICAL [facility] [address] [place] [address] [facility] Practice 08/13/21 Dayanara Bee MD 420 [facility] 75 [place] [address] Pediatrics 12/26/14 Min Lange MD 420 [facility] 75 [place] [address] Neurology 03/30/16 Marlo Madsen MD 420 [facility] 508 [place] [address] Cardiology 10/27/16 Mel Buckley, RN Nurse Coordinator Physical Medicine and Rehabilitation 12/02/16 Douglas Cadet MD 500 [place], [place] 855445 MD Gastroenterology 08/13/21 Rosalba Pendleton APRN DATA COLLECTION ASSOCIATE [address] [place] [id number] [place], [place] [address] Nurse Practitioner Neurology 09/05/21 Rosalba Pendleton APRN DATA COLLECTION ASSOCIATE [address] [id number] [place], [place] [address] Assigned Neuroscience Provider 11/09/21 Douglas Cadet MD 500 [place], [place] 261695 Assigned Gastroenterology Provider 03/14/22 09/03/23 Marlo Madsen MD [address] [place] [address] 508 [place], [place] 728825 Assigned Heart and Vascular Provider 03/14/22 Abby Vasquez MD [address] [place] [address] 194225 Gastroenterology 07/16/22 Abby Vasquez MD [address] [place] [address] [id number] Assigned PCP 09/26/22 Airam Hodges PA-C [address] [place] [address] 299235 Physician [facility] 07/19/23 documented as of this encounter
--- OUTSIDE RECORDS SUMMARY | 2023-09-27 15:49 | XMS_ITS | Encounter Summary ---
Author Name Unknown Organization [place] Address [address] [facility] [place] [address] Care Team Providers Care Fish Icer Name Role Phone Monty Musa MD Primary Care Provider [phone] Alfonso Tang Unavailable Unavailable Dayanara Bee MD Unavailable [phone] Min Lange MD Unavailable Unavailable Marlo Madsen MD Unavailable [phone] Mel Buckley RN Unavailable [phone] Douglas Cadet MD Unavailable [phone] Rosalba Pendleton APRN ALTERATIONS SUPERVISOR Unavaila ble Rosalba Pendleton APRN ALTERATIONS SUPERVISOR Unavaila ble Douglas Cadet MD Unavailable [phone] Marlo Madsen MD Unavailable [phone] Abby Vasquez MD Unavailable Abby Vasquez MD Unavailable Encounter Details Date Type Department Care Team (Latest Contact Info) Description 11/18/2022 Orders Only [facility] Gastroenterology Clinic [place] [address] [facility] 4th [place] [address] Sheri Edmonds RN Irritable bowel syndrome with constipation (Primary Dx) Social History Tobacco Use Types Packs/Day Years Used Date Smoking Tobacco: Never Smokeless Tobacco: Never Alcohol Use Standard Drinks/Week Comments No 0 (1 standard drink = 0.6 oz pur e alcohol) PHQ-2 Answer Date Recorded PHQ-2 Score 3 05/28/2022 Sex and Gender Information Value Date Recorded Sex Assigned at Female 10/31/2021 7:59 AM SAND PLANT ATTENDANT Gender Identity Female 10/31/2021 7:59 AM SAND PLANT ATTENDANT Sexual Orientation Straight 10/31/2021 7: 59 AM SAND PLANT ATTENDANT documented as of this encounter Plan of Treatment Upcoming Encounters Date Type Department Care Team (Late st Contact Info) Description 09/29/2023 9:30 AM SAND PLANT ATTENDANT Ancillary Procedure [facility] [address] [facility] [address] [place] [phone] Zain Quintana MD 500 [place], [place] 4213[address] 10/01/2023 9:30 AM SAND PLANT ATTENDANT Ancillary Procedure [facility] [address] [facility] [address] [place] [phone] Zain Quintana MD 500 [place], [place] [address] 10/18/2023 PRE VISIT [facility] Colon and Rectal Surgery Clinic [place] [address] [facility] 4th [place] [phone] Airam Hodges PA-C 500 [place], [place] 890905 Previsit 10/21/2023 11:30 AM SAND PLANT ATTENDANT Therapy Visit [facility] Rehabilitation Services [facility] [address] [facility] [address] [place] [address] Zain Quintana MD 500 [place], [place] 427685 Lainey Simon, PT [address] [place] [address] 10/26/2023 1:00 PM SAND PLANT ATTENDANT Virtual Visit [facility] Gastroenterology Clinic [address] [phone] Latricia Pettit PA-C [address] [place] [address] 10/28/2023 10:50 AM SAND PLANT ATTENDANT Therapy Visit [address] [address] Zain Quintana MD [address] [place] [address] Lainey Simon, JAY [address] [place] [address] 11/04/2023 10:50 AM SAND PLANT ATTENDANT Therapy Visit [address] [address] Zain Quintana MD [address] [place] [address] Lainey Simon PT [address] [place] [address] 11/24/2023 10:40 AM CDT Office Visit [facility] Gastroenterology Clinic [address] [phone] Abby Vasquez MD [address] [place] [address] 01/13/2024 10:00 AM CDT Virtual Visit [facility] Neurology Clinic [address] 3rd [place] [phone] Rosalba Pendleton APRN [address] [id number] [place] [address] 01/20/2024 8:00 PM CDT Therapy Visit [facility] Sleep [facility] [address] [phone] 03/14/2024 10:30 AM CDT Office Visit [facility] [address] [phone] Abhishek Acevedo PA-C [address] [id number] 03/21/2024 11:30 AM CDT Office Visit [facility] Colon and Rectal Surgery Clinic [address] 4th [place] [phone] Zain Quintana MD [address] [place] [address] 652215 documented as of this encounter Visit Diagnoses Diagnosis Irritable bowel syndrome with constipation- Primary Irritable bowel syndrome documented in this encounter Additional Health Concerns Assessment Noted Time PHQ-9 Depression Total Score: 11 022 11:52 AM CDT documented as of this encounter Care Teams Fish Icer Relationship Specialty Start Date End Date Monty Musa MD [facility]ICAL [facility] [address] [place] [address] PCP - General Family Medicine 08/13/21 Alfonso Tang [facility] [address] [place] [address] Family Practice 08/13/21 Dayanara Bee MD [address] [place] [address] [address] Pediatrics 12/26/14 Min Lange MD [address] [place] [address] Neurology 03/30/16 Marlo Madsen MD [address] [place] [address] Cardiology 10/27/16 Mel Buckley, RN Nurse Coordinator Physical Medicine and Rehabilitation 12/02/16 Douglas Cadet MD [address] [place] [address] Gastroenterology 08/13/21 Rosalba Pendleton APRN ALTERATIONS SUPERVISOR [address] [place] [address] Nurse Practitioner Neurology 09/05/21 Rosalba Pendleton APRN ALTERATIONS SUPERVISOR [address] [place] [address] Assigned Neuroscience Provider 11/09/21 Douglas Cadet MD [address] [place] [address] Assigned Gastroenterology Provider 03/14/22 09/03/23 Marlo Madsen MD [address] [place] [address] Assigned Heart and Vascular Provider 03/14/22 Abby Vasquez MD [address] [place] [address] Gastroenterology 07/16/22 Abby Vasquze MD 909 [place] [address] Assigned PCP 09/26/22 documented as of this encounter
--- OUTSIDE RECORDS SUMMARY | 2023-09-27 15:49 | XMS_ITS | Encounter Summary ---
Author Name Unknown Organization [place] Address [address] [place] [address] Care Team Providers Care Sew On Operator Name Role Phone Monty Musa MD Primary Care Provider [phone] Alfonso Tang Unavailable Unavailable Dayanara Bee MD Unavailable [phone] Min Lange MD Unavailable Unavailable Marlo Madsen MD Unavailable [phone] Mel Buckley RN Unavailable [phone] Douglas Cadet MD Unavailable [phone] Rosalba Pendleton APRN COMMERCIAL LINES ACCOUNT MANAGER Unavaila ble Rosalba Pendleton APRN COMMERCIAL LINES ACCOUNT MANAGER Unavaila ble Douglas Cadet MD Unavailable [phone] Marlo Madsen MD Unavailable [phone] Abby Vasquez MD Unavailable Abby Vasquez MD Unavailable Reason for Visit * Reason Comments Medication Refill Encounter Details Date Type Department Care Team (Late st Contact Info) Description [facility] [address] 3rd [place] [address] Rosalba Pendleton APRN COMMERCIAL LINES ACCOUNT MANAGER [address] [facility] [id number] [place] [address] Medication Refill Social History Tobacco Use Types Packs/Day Years Used Date Smoking Tobacco: Never Smokeless Tobacco: Never Alcohol Use Standard Drinks/Week Comments No 0 (1 standard drink = 0.6 oz pur e alcohol) PHQ-2 Answer Date Recorded PHQ-2 Score 3 05/28/2022 Sex and Gender Information Value Date Recorded Sex Assigned at Female 10/31/2021 7:59 AM TRANSACTION MANAGER Gender Identity Female 10/31/2021 7:59 AM TRANSACTION MANAGER Sexual Orientation Straight 10/31/2021 7: 59 AM TRANSACTION MANAGER documented as of this encounter Miscellaneous Notes * Telephone Encounter - Rosalba Pendleton APRN CNP - 11/03/2022 2:57 PM CST Please submit PA renewal and follow up needed in January or in the summer for med review. Thank you SACTION MANAGER * Telephone Encounter - Marissa Sharp CMA - 11/02/2022 8:40 AM CST Rx Authorization: Requested Medication/ Dose Aimovig Subcutaneous Solution Auto-injector 140 MG/ML Date last refill ordered: 10/31/21 Quantity ordered: 1ml # refills: 12 Date of last clinic visit with ordering provider: 01/14/22 Date of next clinic visit with ordering provider: All pertinent protocol data (lab date/result): Include pertinent information from patients message: SACTION MANAGER documented in this encounter Plan of Treatment Upcoming Encounters Date Type Department Care Team (Late st Contact Info) Description 09/29/2023 9:30 AM TRANSACTION MANAGER Ancillary Procedure [address] [place] [address] Zain Quintana MD 500 [place] [address] 10/01/2023 9:30 AM TRANSACTION MANAGER Ancillary Procedure [facility] [address] [place] [address] Zain Quintana MD 500 [place], [place] [address] 10/18/2023 PRE VISIT [facility] Colon and Rectal Surgery Clinic [address] [phone] Airam Hodges PA-C 500 [place], [place] 6[address] Previsit 10/21/2023 11:30 AM TRANSACTION MANAGER Therapy Visit [facility] [address] [place] [address] [address] [place] [address] Zain Quintana MD 500 [place], [place] [address] [place] [address] [place] [address] 10/26/2023 1:00 PM TRANSACTION MANAGER Virtual Visit [facility] Gastroenterology Clinic [address] [phone] Latricia Pettit PA-C 909 [place], [place] 026915 10/28/2023 10:50 AM TRANSACTION MANAGER Therapy Visit [address] [place] [address] Zain Quintana MD 500 [place], [place] [address] [place] [address] [place] [address] 11/04/2023 10:50 AM TRANSACTION MANAGER Therapy Visit [facility] Rehabilitation Services [facility] [address] [facility] 300 [place] [address] Zain Quintana MD [address] [place] [address] L[place], [place] [id number] [place] [address] 11/24/2023 10:40 AM CDT Office Visit [facility] Gastroenterology Clinic [address] 4th [place] [phone] Abby Vasquez MD [address] [place] [address] 01/13/2024 10:00 AM CDT Virtual Visit [facility] Neurology Clinic [address] 3rd [place] [phone] Rosalba Pendleton APRN [address] [id number] [place] [address] 01/20/2024 8:00 PM CDT Therapy Visit [facility] Sleep [place] [address] [place] [address] 03/14/2024 10:30 AM CDT Office Visit [facility] Sleep [place] [address] [place] [address] Abhishek Acevedo PA-C [address] [address] [place] [id number] 03/21/2024 11:30 AM CDT Office Visit [facility] Colon and Rectal Surgery Clinic [place] 909 [facility] 4th [place] [phone] Zain Quintana MD 500 [place] [address] documented as of this encounter Visit Diagnoses Diagnosis Intractable 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 Chronic migraine without aura, with intractable migraine, so stated, without mention of status migrainosus documented in this encounter Additional Health Concerns Assessment Noted Time PHQ-9 Depression Total Score: 11 022 11:52 AM CDT documented as of this encounter Care Teams Sew On Operator Relationship Specialty Start Date End Date Monty Musa MD [facility] [address] [place] [address] PCP - General Family Medicine 08/13/21 Alfonso Tang [facility] [address] [place] [address] Family Practice 08/13/21 Dayanara Bee MD [address] [place] [address] Pediatrics 12/26/14 Min Lange MD [address] [place] [address] 75 [place] [address] Neurology 03/30/16 Marlo Madsen MD [address] [place] [address] 508 [place] [address] Cardiology 10/27/16 Mel Buckley, RN Nurse Coordinator Physical Medicine and Rehabilitation 12/02/16 Douglas Cadet MD [address] [place] [address] Gastroenterology 08/13/21 Rosalba Pendleton APRN COMMERCIAL LINES ACCOUNT MANAGER [address] [place] [address] Nurse Practitioner Neurology 09/05/21 Rosalba Pendleton APRN COMMERCIAL LINES ACCOUNT MANAGER [address] [place] [address] Assigned Neuroscience Provider 11/09/21 Douglas Cadet MD [address] [place] [address] Assigned Gastroenterology Provider 03/14/22 09/03/23 Marlo Madsen MD [address] [place] [address] 508 [place] [address] Assigned Heart and Vascular Provider 03/14/22 Abby Vasquez MD [address] [place] [address] Gastroenterology 07/16/22 Abby Vasquez MD [address] [place] [address] Assigned PCP 09/26/22 documented as of this encounter
--- OUTSIDE RECORDS SUMMARY | 2023-09-27 15:49 | XMS_ITS | Encounter Summary ---
Author Name Unknown Organization [place] Address [address] [facility] [address] Care Team Providers Care Charging Car Operator Name Role Phone Monty Musa MD Primary Care Provider [phone] Alfonso Tang Unavailable Unavailable Dayanara Bee MD Unavailable [phone] Min Lange MD Unavailable Unavailable Marlo Madsen MD Unavailable [phone] Mel Buckley RN Unavailable [phone] Douglas Cadet MD Unavailable [phone] Rosalba Pendleton APRN GRADER PATROL Unavaila ble Rosalba Pendleton APRN GRADER PATROL Unavaila ble Douglas Cadet MD Unavailable [phone] Marlo Madsen MD Unavailable [phone] Abby Vasquez MD Unavailable Abby Vasquez MD Unavailable Reason for Visit * Reason Onset Date Comments Prior Auth - Medication 11/19/2022 linaclot alesia (LINZESS) 290 MCG capsule -PA APPROVED Encounter Details Date Type Department Care Team (Late st Contact Info) Description 11/19/2022 [facility]ology [facility] [address] 4th [place] [address] Sheri Edmonds RN Prior Auth - Medication (linaclotide (LINZESS) 290 MCG capsule -PA APPROVED ) Social History Tobacco Use Types Packs/Day Years Used Date Smoking Tobacco: Never Smokeless Tobacco: Never Alcohol Use Standard Drinks/Week Comments No 0 (1 standard drink = 0.6 oz pur e alcohol) PHQ-2 Answer Date Recorded PHQ-2 Score 3 05/28/2022 Sex and Gender Information Value Date Recorded Sex Assigned at Female 10/31/2021 7:59 AM CORE STICKER Gender Identity Female 10/31/2021 7:59 AM CORE STICKER Sexual Orientation Straight 10/31/2021 7: 59 AM CORE STICKER documented as of this encounter Miscellaneous Notes * Telephone Encounter - Ed Ching - 11/23/2022 2:32 PM CDT Images from the original note were not included. Prior Authorization Approval Authorization Effective Date: 10/24/2022 Authorization Expiration Date: 11/23/2023 Medication: linaclotide (LINZESS) 290 MCG capsule -PA APPROVED Approved Dose/Quantity: Reference #: Insurance Achieved.co: [employer] - Expected CoPay: CoPay Card Available: [facility] Assistance Needed: Which Pharmacy is filling the prescription (Not needed for infusion/clinic administered): [facility] [address] [place] [address] Pharmacy Notified: Yes- Instructed pharmacy to notify patient when script is ready to quill picking machine operator/ship. Patient Notified: Yes * Telephone Encounter - Her Ed - 11/23/2022 1:31 PM CDT Images from the original note were not included. Central Prior Authorization Team PA Initiation Medication: linaclotide (LINZESS) 290 MCG capsule Insurance Company: [employer] - Pharmacy Filling the Rx: [facility] [address] [place] [address] 3 Filling Pharmacy Filling Pharmacy Fax: Start Date: 11/23/2022 * Telephone Encounter - Sheri Edmonds RN - 11/19/2022 11:33 AM CST Prior Authorization Retail Medication Request Medication/Dose: Disp Refills Start End ANASTACIO linaclotide (LINZESS) 290 MCG capsule 30 capsule 1 11/18/2022 -- Sig - Route: Take 1 capsule (290 mcg) by mouth every morning (before breakfast) - Oral Sent to pharmacy as: linaCLOtide 290 MCG Oral Capsule (Linzess) Class: E-Prescribe Order: [id number] E-Prescribing Status: Receipt confirmed by pharmacy (11/18/2022 ??1:01 PM CORE STICKER) ICD code (if different than what is on RX): Previously Tried and Failed: Amitiza Rationale: Loss of efficacy Insurance Name: Insurance ID: Pharmacy Information (if different than what is on RX) Name: Phone: STICKER documented in this encounter Plan of Treatment Upcoming Encounters Date Type Department Care Team (Late st Contact Info) Description 09/29/2023 9:30 AM CORE STICKER Ancillary Procedure [address] [place] [phone] Zain Quintana MD [address] [place] [address] 246005 10/01/2023 9:30 AM CORE STICKER Ancillary Procedure [address] [place] [phone] Zain Quintana MD [address] [place] [address] 10/18/2023 PRE VISIT [facility] [address] [place] [phone] Airam Hodges PA-C [address] [place] [address] Previsit 10/21/2023 11:30 AM CORE STICKER Therapy Visit [address] [address] Zain Quintana MD [address] [place] [address] Lainey Simon, PT [address] [place] [address] 10/26/2023 1:00 PM CORE STICKER Virtual Visit [facility]ology [facility] [address] [phone] Latricia Pettit PA-C [address] [place] [address] 10/28/2023 10:50 AM CORE STICKER Therapy Visit [address] [address] Zain Quintana MD [address] [place] [address] Lainey Simon, PT [address] [place] [address] 11/04/2023 10:50 AM CORE STICKER Therapy Visit [address] [address] Zain Quintana MD [address] [place] [address] Lainey Simon, PT [address] [place] [address], [place] [address] 11/24/2023 10:40 AM CDT Office Visit [facility] [address] [place] [phone] Abby Vasquez MD [address] [place] [address]995 01/13/2024 10:00 AM CDT Virtual Visit [facility] Neurology Clinic [address] [place] [phone] Rosalba Pendleton APRN [address] LH8324SO [place], [place] [address] 01/20/2024 8:00 PM CDT Therapy Visit [facility] Sleep [address] [phone] 03/14/2024 10:30 AM CDT Office Visit [address] [phone] Abhishek Acevedo PA-C [address] [phone] 03/21/2024 11:30 AM CDT Office Visit [facility] [address] [phone] Zain Quintana MD [address] [place] [address] [phone] documented as of this encounter Visit Diagnoses Not on filedocumented in this encounter Additional Health Concerns Assessment Noted Time PHQ-9 Depression Total Score: 11 022 11:52 AM CDT documented as of this encounter Care Teams Charging Car Operator Relationship Specialty Start Date End Date Monty Musa MD [facility] [address] [place] [address] PCP - General Family Medicine 08/13/21 Alfonso Tang [facility] [address] [place] [address] Family [facility] 08/13/21 Dayanara Bee MD [address] [address] Pediatrics 12/26/14 Min Lange MD [address] [address] Neurology 03/30/16 Marlo Madsen MD [address] [place], [place] [address] [place], [place] [address] Cardiology 10/27/16 Mel Buckley, RN Nurse Coordinator Physical Medicine and Rehabilitation 12/02/16 Douglas Cadet MD [address] [place] [address] Gastroenterology 08/13/21 Rosalba Pendleton APRN GRADER PATROL [address] [place] [address] Nurse Practitioner Neurology 09/05/21 Rosalba Pendleton APRN GRADER PATROL [address] [address] Assigned Neuroscience Provider 11/09/21 Douglas Cadet MD [address] [place] [address] Assigned Gastroenterology Provider 03/14/22 09/03/23 Marlo Madsen MD [address] [place] [address] 508 [place] [address] Assigned Heart and Vascular Provider 03/14/22 Abby Vasquez MD [address] [place] [address] Gastroenterology 07/16/22 Abby Vasquez MD [address] [place] [address] Assigned PCP 09/26/22 documented as of this encounter
--- OUTSIDE RECORDS SUMMARY | 2023-09-27 15:49 | XMS_ITS | Encounter Summary ---
Author Name Unknown Organization [place] Address [address] [facility] [place] [address] Care Team Providers Care Dry Man Name Role Phone Monty Musa MD Primary Care Provider [phone] Alfonso Tang Unavailable Unavailable Dayanara Bee MD Unavailable [phone] Min Lange MD Unavailable Unavailable Marlo Madsen MD Unavailable [phone] Mel Buckley RN Unavailable [phone] Douglas Cadet MD Unavailable [phone] Rosalba Pendleton APRN OIL FIELD ROUSTABOUT Unavaila ble Rosalba Pendleton APRN OIL FIELD ROUSTABOUT Unavaila ble Douglas Cadet MD Unavailable [phone] Marlo Madsen MD Unavailable [phone] Abby Vasquez MD Unavailable Abby Vasquez MD Unavailable Airam Hodges PA-C Unavailable [phone] Encounter Details Date Type Department Care Team (Late st Contact Info) Description 03/17/2022 [facility] Heart [address] [address] Virginia Rendon, DIAZ [address] [place], [place] [address] Social History Tobacco Use Types Packs/Day Years Used Date Smoking Tobacco: Never Smokeless Tobacco: Never Alcohol Use Standard Drinks/Week Comments No 0 (1 standard drink = 0.6 oz pur e alcohol) PHQ-2 Answer Date Recorded PHQ-2 Score 4 01/14/2022 Sex and Gender Information Value Date Recorded Sex Assigned at Female 10/31/2021 7:59 AM EXCAVATOR BACKHOE OPERATOR Gender Identity Female 10/31/2021 7:59 AM EXCAVATOR BACKHOE OPERATOR Sexual Orientation Straight 10/31/2021 7: 59 AM EXCAVATOR BACKHOE OPERATOR COVID-19 Exposure Response Date Recorded In the last 10 days, have yo u been in contact with someone who was confirmed or suspected to have Coronavirus/COVID-19? No / Unsure 03/18/2022 8:57 AM CDT documented as of this encounter Plan of Treatment Upcoming Encounters Date Type Department Care Team (Late st Contact Info) Description 09/29/2023 9:30 AM EXCAVATOR BACKHOE OPERATOR Ancillary Procedure [address] [place] [phone] Zain Quintana MD [address] [place], [place] [address] 10/01/2023 9:30 AM EXCAVATOR BACKHOE OPERATOR Ancillary Procedure [facility] [address] [place] [phone] Zain Quintana MD [address] [place], [place] [address] 10/18/2023 PRE VISIT [facility] Clinic [address] [place] [phone] Airam Hodges PA-C [address] [place], [place] [address] Previsit 10/21/2023 11:30 AM EXCAVATOR BACKHOE OPERATOR Therapy Visit [address] [address] Zain Quintana MD [address] [place] [address] Lainey Simon, PT [address] [place] [address] 10/26/2023 1:00 PM EXCAVATOR BACKHOE OPERATOR Virtual Visit [facility] Gastroenterology Clinic [address] [phone] Latricia Pettit PA-C [address] [place] [address] 10/28/2023 10:50 AM EXCAVATOR BACKHOE OPERATOR Therapy Visit [address] [address] Zain Quintana MD [address] [place] [address] Lainey Simon PT [address] [place] [address] 11/04/2023 10:50 AM EXCAVATOR BACKHOE OPERATOR Therapy Visit [address] [address] Zain Quintana MD [address] [place] [address] Lainey Simon PT [address] [place] [address] 11/24/2023 10:40 AM CDT Office Visit [facility] Gastroenterology Clinic [address] [place] [phone] Abby Vasquez MD [address] [place] [address] 895445 01/13/2024 10:00 AM CDT Virtual Visit [facility] Neurology Clinic [address] [place] [phone] Rosalba Pendleton, MAXIMILIANO OIL FIELD ROUSTABOUT [address] [place] [address] [id number] [place], [place] [address] 01/20/2024 8:00 PM CDT Therapy Visit [facility] Sleep [address] [phone] 03/14/2024 10:30 AM CDT Office Visit [facility] Sleep [address] [phone] Abhishek Acevedo PA-C [address] [phone] 03/21/2024 11:30 AM CDT Office Visit [facility] [address] [phone] Zain Quintana MD [address] [place] [address] documented as of this encounter Visit Diagnoses Not on filedocumented in this encounter Additional Health Concerns Infection Onset Date Last Indicated Resolved Time Rule Out COVID-19 04/03/2023 04/03/2023 04/04/2023 6:30 PM CDT Assessment Noted Time PHQ-9 Depression Total Score: 17 05 022 7:02 AM CDT documented as of this encounter Care Teams Dry Man Relationship Specialty Start Date End Date Monty Musa MD [facility] [address] [place] [address] PCP - General Family Medicine 08/13/21 Alfonso Tang [facility] [address] [place] [address] Family Practice 08/13/21 Dayanara Bee MD 420 [facility] 75 [place], [place] 523225 Pediatrics 12/26/14 Min Lange MD 420 [facility] 75 [place] [address] Neurology 03/30/16 Marlo Madsen MD 420 [facility] [address] [place], [place] 4564[address] Cardiology 10/27/16 Mel Buckley, RN Nurse Coordinator Physical Medicine and Rehabilitation 12/02/16 Douglas Cadet MD [address] [place], [place] 388155 Gastroenterology 08/13/21 Rosalba Pendleton APRN OIL FIELD ROUSTABOUT [address] [place], [place] [address] Nurse Practitioner Neurology 09/05/21 Rosalba Pendleton APRN OIL FIELD ROUSTABOUT [address] 982735 Assigned Neuroscience Provider 11/09/21 Douglas Cadet MD [address] [place], [place] [address] [phone] Assigned Gastroenterology Provider 03/14/22 09/03/23 Marlo Madsen MD [address] [place] [address] 508 [place] [address] Assigned Heart and Vascular Provider 03/14/22 Abby Vasquez MD [address] [place] [address] Gastroenterology 07/16/22 Abby Vasquez MD [address] [place] [address] Assigned PCP 09/26/22 Airam Hodges PA-C [address] [place] [address] Physician Toe Sewer Surgery 07/19/23 documented as of this encounter
--- OUTSIDE RECORDS SUMMARY | 2023-09-27 15:49 | XMS_ITS | Encounter Summary ---
Author Name Unknown Organization [place] Address [address] [place] [address] Care Team Providers Care Shaker Operator Name Role Phone Monty Musa MD Primary Care Provider [phone] Alfonso Tang Unavailable Unavailable Dayanara Bee MD Unavailable [phone] Min Lange MD Unavailable Unavailable Marlo Madsen MD Unavailable [phone] Mel Buckley RN Unavailable [phone] Douglas Cadet MD Unavailable [phone] Rosalba Pendleton APRN INSTRUCTOR WARPER Unavaila ble Rosalba Pendleton APRN INSTRUCTOR WARPER Unavaila ble Douglas Cadet MD Unavailable [phone] Marlo Madsen MD Unavailable [phone] Abby Vasquez MD Unavailable Abby Vasquez MD Unavailable Airam Hodges PA-C Unavailable [phone] Encounter Details Date Type Department Care Team (Late st Contact Info) Description 02/20/2022 [facility] [place] [address] [phone] Cindy Vines CMA Social History Tobacco Use Types Packs/Day Years Used Date Smoking Tobacco: Never Smokeless Tobacco: Never Alcohol Use Standard Drinks/Week Comments No 0 (1 standard drink = 0.6 oz pur e alcohol) PHQ-2 Answer Date Recorded PHQ-2 Score 4 01/14/2022 Sex and Gender Information Value Date Recorded Sex Assigned at Female 10/31/2021 7:59 AM INTERVENTIONAL NURSE Gender Identity Female 10/31/2021 7:59 AM INTERVENTIONAL NURSE Sexual Orientation Straight 10/31/2021 7: 59 AM INTERVENTIONAL NURSE documented as of this encounter Plan of Treatment Upcoming Encounters Date Type Department Care Team (Late st Contact Info) Description 09/29/2023 9:30 AM INTERVENTIONAL NURSE Ancillary Procedure [facility] [address] [facility] [address] [place] [phone] Zain Quintana MD 500 [place], [place] [address] 10/01/2023 9:30 AM INTERVENTIONAL NURSE Ancillary Procedure [facility] [address] [facility] [address] [place] [phone] Zain Quintana MD 500 [place], [place] [address] 10/18/2023 PRE VISIT [facility] [address] [phone] Airam Hodges PA-C 500 [place], [place] [address] Previsit 10/21/2023 11:30 AM INTERVENTIONAL NURSE Therapy Visit [facility] [address] [facility] [address] [place] [address] Zain Quintana MD 500 [place], [place] [address]155 Lainey Simon, PT [address] [place] [address] 10/26/2023 1:00 PM INTERVENTIONAL NURSE Virtual Visit [facility] Gastroenterology [address] [phone] Latricia Pettit PA-C [address] [place] [address] 10/28/2023 10:50 AM INTERVENTIONAL NURSE Therapy Visit [address] [address] Zain Quintana MD [address] [place] [address] Lainey Simon, PT [address] [place] [address] 11/04/2023 10:50 AM INTERVENTIONAL NURSE Therapy Visit [address] [address] Zain Quintana MD [address] [place] [address] Lainey Simon, PT [address] [place] [address] 11/24/2023 10:40 AM CDT Office Visit [facility] Gastro[facility]ology Clinic [address] [phone] Abby Vasquez MD [address] [place] [address] 511335 01/13/2024 10:00 AM CDT Virtual Visit [facility] Neurology Clinic [address] 3rd [place] [phone] Rosalba Pendleton APRN [address] RN5221XD [place] [address] 01/20/2024 8:00 PM CDT Therapy Visit [facility] Sleep [facility] [address] [place] [phone] 03/14/2024 10:30 AM CDT Office Visit [facility] [address] [place] [phone] Abhishek Acevedo PA-C [address] [phone] 03/21/2024 11:30 AM CDT Office Visit [facility] [address] 4th [place] [phone] Zain Quintana MD [address] [place] [address] 651175 documented as of this encounter Visit Diagnoses Not on filedocumented in this encounter Additional Health Concerns Infection Onset Date Last Indicated Resolved Time Rule Out COVID-19 04/03/2023 04/03/2023 04/04/2023 6:30 PM CDT Assessment Noted Time PHQ-9 Depression Total Score: 17 022 7:02 AM CDT documented as of this encounter Care Teams Shaker Operator Relationship Specialty Start Date End Date Monty Musa MD [facility] [address] [place] [address] PCP - General Family Medicine 08/13/21 Alfonso Tang [facility] [address] [place] [address] [facility] Practice 08/13/21 Dayanara Bee MD [address] 317525 Pediatrics 12/26/14 Min Lange MD [address] [address] Neurology 03/30/16 Marlo Madsen MD [address] [place] [address] Cardiology 10/27/16 Mel Buckley, RN Nurse Coordinator Physical Medicine and Rehabilitation 12/02/16 Douglas Cadet MD 500 [place] [address] Gastroenterology 08/13/21 Rosalba Pendleton APRN INSTRUCTOR WARPER [address] [place] [address] [phone] Nurse Practitioner Neurology 09/05/21 Rosalba Pendleton APRN INSTRUCTOR WARPER [address] [place] [address] Assigned Neuroscience Provider 11/09/21 Douglas Cadet MD 500 [place] [address] Assigned Gastroenterology Provider 03/14/22 09/03/23 Marlo Madsen MD [address] [place] [address] Assigned Heart and Vascular Provider 03/14/22 Abby Vasquez MD [address] [place] [address] 203205 Gastroenterology 07/16/22 Abby Vasquez MD [address] [place] [address] 980435 Assigned PCP 09/26/22 Airam Hodges PA-C [address] [place] [address] [id number] Physician Youth Development Specialist Surgery 07/19/23 documented as of this encounter
--- OUTSIDE RECORDS SUMMARY | 2023-09-27 15:49 | XMS_ITS | Encounter Summary ---
Author Name Unknown Organization [place] Address [address] [facility] [place] [address] Care Team Providers Care Hog Slaughterer Name Role Phone Monty Musa MD Primary Care Provider [phone] Alfonso Tang Unavailable Unavailable Dayanara Bee MD Unavailable [phone] Min Lange MD Unavailable Unavailable Marlo Madsen MD Unavailable [phone] Mel Buckley RN Unavailable [phone] Douglas Cadet MD Unavailable [phone] Rosalba Pendleton APRN CORPORATE DEVELOPMENT OFFICER Unavaila ble Rosalba Pendleton APRN CORPORATE DEVELOPMENT OFFICER Unavaila ble Douglas Cadet MD Unavailable [phone] Marlo Madsen MD Unavailable [phone] Abby Vasquez MD Unavailable Abby Vasquez MD Unavailable Airam Hodges PA-C Unavailable [phone] Encounter Details Date Type Department Care Team (Late st Contact Info) Description 05/29/2022 [facility] Heart [address] [phone] Andie Raya Social History Tobacco Use Types Packs/Day Years Used Date Smoking Tobacco: Never Smokeless Tobacco: Never Alcohol Use Standard Drinks/Week Comments No 0 (1 standard drink = 0.6 oz pur e alcohol) PHQ-2 Answer Date Recorded PHQ-2 Score 3 05/28/2022 Sex and Gender Information Value Date Recorded Sex Assigned at Female 10/31/2021 7:59 AM WIRE COMMUNICATIONS ENGINEER Gender Identity Female 10/31/2021 7:59 AM WIRE COMMUNICATIONS ENGINEER Sexual Orientation Straight 10/31/2021 7: 59 AM WIRE COMMUNICATIONS ENGINEER COVID-19 Exposure Response Date Recorded In the last 10 days, have yo u been in contact with someone who was confirmed or suspected to have Coronavirus/COVID-19? No / Unsure 05/04/2022 7:58 AM CDT documented as of this encounter Plan of Treatment Upcoming Encounters Date Type Department Care Team (Late st Contact Info) Description 09/29/2023 9:30 AM WIRE COMMUNICATIONS ENGINEER Ancillary Procedure [facility] [address] [place] [phone] Zain Quintana MD [address] [place], [place] 9[address] 10/01/2023 9:30 AM WIRE COMMUNICATIONS ENGINEER Ancillary Procedure [facility] [address] [place] [phone] Zain Quintana MD [address] [place], [place] [address] 10/18/2023 PRE VISIT [facility]al [facility] [place] [address] [facility] 4th [place] [phone] Airam Hodges PA-C 500 [place], [place] 812615 Previsit 10/21/2023 11:30 AM WIRE COMMUNICATIONS ENGINEER Therapy Visit [facility] Rehabilitation Services [facility] [address] [address] Zain Quintana MD [address] [place] [address] Lainey Simon, PT [address] [place] [address] 10/26/2023 1:00 PM WIRE COMMUNICATIONS ENGINEER Virtual Visit [facility] Gastroenterology Clinic [address] [phone] Latricia Pettit PA-C [address] [place] [address] 276815 10/28/2023 10:50 AM WIRE COMMUNICATIONS ENGINEER Therapy Visit [address] [address] Zain Quintana MD [address] [place] [address] Lainey Simon, PT [address] [place] [address] 11/04/2023 10:50 AM WIRE COMMUNICATIONS ENGINEER Therapy Visit [address] [address] Zain Quintana MD [address] [place] [address] Lainey Simon, PT [address] [place] [address] 11/24/2023 10:40 AM CDT Office Visit [facility] Gastroenterology [address] [phone] Abby Abarca MD [address] [place] [address] 01/13/2024 10:00 AM CDT Virtual Visit [facility] Neurology Clinic [address] 3rd [place] [phone] Rosalba Pendleton APRN [address] [id number] [address] 01/20/2024 8:00 PM CDT Therapy Visit [facility] Sleep [address] [phone] 03/14/2024 10:30 AM CDT Office Visit [address] [phone] Abhishek Acevedo PA-C [address] [address] 03/21/2024 11:30 AM CDT Office Visit [facility] Colon [facility] Rectal Surgery Clinic [address] 4th [place] [phone] Zain Quintana MD [address] [place] [address] 147645 documented as of this encounter Visit Diagnoses Not on filedocumented in this encounter Additional Health Concerns Infection Onset Date Last Indicated Resolved Time Rule Out COVID-19 04/03/2023 04/03/2023 04/04/2023 6:30 PM CDT Assessment Noted Time PHQ-9 Depression Total Score: 11 05/28/2 022 11:52 AM CDT documented as of this encounter Care Teams Hog Slaughterer Relationship Specialty Start Date End Date Monty Musa MD [facility] [address] [facility] [place] [address] PCP - General Family Medicine 08/13/21 Alfonso Tang [facility] [address] [place] [address] [facility] 08/13/21 Dayanara Bee MD [address] [facility] 75 [place], [place] 653335 Pediatrics 12/26/14 Min Lange MD [address] [facility] 75 [place] [address] Neurology 03/30/16 Marlo Madsen MD 420 [facility] 508 [place], [place] 844565 Cardiology 10/27/16 Mel Buckley, RN Nurse Coordinator Physical Medicine and Rehabilitation 12/02/16 Douglas Cadet MD [address] [place], [place] 5239[address] Gastroenterology 08/13/21 Rosalba Pendleton APRN CORPORATE DEVELOPMENT OFFICER [address] [employer] [address]J [place], [place] [address] Nurse Practitioner Neurology 09/05/21 Rosalba Pendleton APRN CORPORATE DEVELOPMENT OFFICER [address] [place], [place] [address] [place], [place] [address] Assigned Neuroscience Provider 11/09/21 Douglas Cadet MD [address] [place] [address] Assigned Gastroenterology Provider 03/14/22 09/03/23 Marlo Madsen MD [address] [facility] 508 [place], [place] 930615 Assigned Heart and Vascular Provider 03/14/22 Abby Vasquez MD [address] [place] [address] 588955 Gastroenterology 07/16/22 Abby Vasquez MD [address] [place] [address] 315275 Assigned PCP 09/26/22 Airam Hodges PA-C [address] [place] [address] Vendor Surgery 07/19/23 documented as of this encounter
--- OUTSIDE RECORDS SUMMARY | 2023-09-27 15:49 | XMS_ITS | Encounter Summary ---
Author Name Unknown Organization [place] Address [address] [place] [address] Care Team Providers Care Director Federal Name Role Phone Monty Musa MD Primary Care Provider [phone] Alfonso Tang Unavailable Unavailable Dayanara Bee MD Unavailable [phone] Min Lange MD Unavailable Unavailable Marlo Madsen MD Unavailable [phone] Mel Buckley RN Unavailable [phone] Douglas Cadet MD Unavailable [phone] Rosalba Pendleton APRN FIELD CARE ADVOCATE Unavaila ble Rosalba Pendleton APRN FIELD CARE ADVOCATE Unavaila ble Douglas Cadet MD Unavailable [phone] Marlo Madsen MD Unavailable [phone] Abby Vasquez MD Unavailable Abby Vasquez MD Unavailable Airam Hodges PA-C Unavailable [phone] Encounter Details Date Type Department Care Team (Late st Contact Info) Description 11/17/2022 [facility]astro[facility]ology Clinic [place] [address] [phone] Abby Vasquez MD [address] [place] [address] [phone] Social History Tobacco Use Types Packs/Day Years Used Date Smoking Tobacco: Never Smokeless Tobacco: Never Alcohol Use Standard Drinks/Week Comments No 0 (1 standard drink = 0.6 oz pur e alcohol) PHQ-2 Answer Date Recorded PHQ-2 Score 3 05/28/2022 Sex and Gender Information Value Date Recorded Sex Assigned at Female 10/31/2021 7:59 AM MAJOR APPLIANCE ASSEMBLY SUPERVISOR Gender Identity Female 10/31/2021 7:59 AM MAJOR APPLIANCE ASSEMBLY SUPERVISOR Sexual Orientation Straight 10/31/2021 7: 59 AM MAJOR APPLIANCE ASSEMBLY SUPERVISOR documented as of this encounter Plan of Treatment Upcoming Encounters Date Type Department Care Team (Late st Contact Info) Description 09/29/2023 9:30 AM MAJOR APPLIANCE ASSEMBLY SUPERVISOR Ancillary Procedure [facility] [address] [facility] [address] [place] [phone] Zain Quintana MD 500 [place], [place] 2525[address] 10/01/2023 9:30 AM MAJOR APPLIANCE ASSEMBLY SUPERVISOR Ancillary Procedure [facility] [address] [facility] [address] [place] [phone] Zain Quintana MD 500 [place], [place] 173105 10/18/2023 PRE VISIT [facility] Colon [facility]al Surgery Clinic [address] [phone] Airam Hodges PA-C 500 [place], [place] 213815 Previsit 10/21/2023 11:30 AM MAJOR APPLIANCE ASSEMBLY SUPERVISOR Therapy Visit [facility] Rehabilitation Services [facility] [address] [facility] [address] [place] [address] Zain Quintana MD 500 [place] [address] [place], [place] [phone] [place] [address] 10/26/2023 1:00 PM MAJOR APPLIANCE ASSEMBLY SUPERVISOR Virtual Visit [facility] Gastroenterology [address] [phone] Latricia Pettit PA-C [address] [place] [address] 026305 10/28/2023 10:50 AM MAJOR APPLIANCE ASSEMBLY SUPERVISOR Therapy Visit [address] [address] Zain Quintana MD [address] [place] [address] Lainey Simon, PT [address] [place] [address] 11/04/2023 10:50 AM MAJOR APPLIANCE ASSEMBLY SUPERVISOR Therapy Visit [address] [address] Zain Quintana MD [address] [place] [address] Lainey Simon, PT [address] [place] [address] 995177 11/24/2023 10:40 AM CDT Office Visit [facility] Gastroenterology [address] [phone] Abby Vasquez MD [address] [place] [address] 01/13/2024 10:00 AM CDT Virtual Visit [facility] Neurology Clinic [address] 3rd [place] [phone] Rosalba Pendleton, EVALUATION ANALYST FIELD CARE ADVOCATE [address] [place] [address] [id number] [place] [address] 01/20/2024 8:00 PM CDT Therapy Visit [facility] [address] [place] [address] [phone] 03/14/2024 10:30 AM CDT Office [facility] [address] [place] [address] [phone] Abhishek Acevedo PA-C [address] [facility] 103 [place] [address] 03/21/2024 11:30 AM CDT Office Visit [facility]al Surgery Clinic [address] 4th [place] [phone] Zain Quintana MD [address] [place] [address] documented as of this encounter Visit Diagnoses Not on filedocumented in this encounter Additional Health Concerns Infection Onset Date Last Indicated Resolved Time Rule Out COVID-19 04/03/2023 04/03/2023 04/04/2023 6:30 PM CDT Assessment Noted Time PHQ-9 Depression Total Score: 11 022 11:52 AM CDT documented as of this encounter Care Teams Director Federal Relationship Specialty Start Date End Date Monty Musa MD [facility] [address] [place] [address] PCP - General Family Medicine 08/13/21 Kitty Alfonso Odalis [facility] [address] [place] [address] [facility] 08/13/21 Dayanara Bee MD 420 [facility] 75 [place] [address] Pediatrics 12/26/14 Min Lange MD 420 [facility] 75 [place] [address] Neurology 03/30/16 Marlo Madsen MD 420 [facility] 508 [place], [place] 986305 Cardiology 10/27/16 Mel Buckley RN Nurse Coordinator Physical Medicine and Rehabilitation 12/02/16 Douglas Cadet MD 500 [place] [address] Gastroenterology 08/13/21 Rosalba Pendleton APRN FIELD CARE ADVOCATE [address] [place] [address] 136085 Nurse Practitioner Neurology 09/05/21 Rosalba Pendleton APRN FIELD CARE ADVOCATE [address] [place] [address] [phone] Assigned Neuroscience Provider 11/09/21 Douglas Cadet MD 500 [place] [address] Assigned Gastroenterology Provider 03/14/22 09/03/23 Marlo Madsen MD 420 [facility] 508 [place] [address] Assigned Heart and Vascular Provider 03/14/22 Abby Vasquez MD [address] [place] [address] 730175 Gastroenterology 07/16/22 Abby Vasquez MD [address] [place] [address] 453555 Assigned PCP 09/26/22 Airam Hodges PA-C [address] [place] [address] [phone] Physician Client Relationship Executive Surgery 07/19/23 documented as of this encounter
--- OUTSIDE RECORDS SUMMARY | 2023-09-27 15:49 | XMS_ITS | Encounter Summary ---
Author Name Unknown Organization [place] Address [address] [facility] [place] [address] Care Team Providers Care Ticket Counter Name Role Phone Monty Musa MD Primary Care Provider [phone] Alfonso Tang Unavailable Unavailable Dayanara Bee MD Unavailable [phone] Min Lange MD Unavailable Unavailable Marlo Madsen MD Unavailable [phone] Mel Buckley RN Unavailable [phone] Douglas Cadet MD Unavailable [phone] Rosalba Pendleton APRN TELEX OPERATOR Unavaila ble Rosalba Pendleton APRN TELEX OPERATOR Unavaila ble Douglas Cadet MD Unavailable [phone] Marlo Madsen MD Unavailable [phone] Abby Vasquez MD Unavailable Abby Vasquez MD Unavailable Airam Hodges PA-C Unavailable [phone] Encounter Details Date Type Department Care Team (Late st Contact Info) Description 11/23/2022 [facility] [place] [address] [phone] Vivian Carter Social History Tobacco Use Types Packs/Day Years Used Date Smoking Tobacco: Never Smokeless Tobacco: Never Alcohol Use Standard Drinks/Week Comments No 0 (1 standard drink = 0.6 oz pur e alcohol) PHQ-2 Answer Date Recorded PHQ-2 Score 3 05/28/2022 Sex and Gender Information Value Date Recorded Sex Assigned at Female 10/31/2021 7:59 AM CARBON SETTER Gender Identity Female 10/31/2021 7:59 AM CARBON SETTER Sexual Orientation Straight 10/31/2021 7: 59 AM CARBON SETTER documented as of this encounter Plan of Treatment Upcoming Encounters Date Type Department Care Team (Late st Contact Info) Description 09/29/2023 9:30 AM CARBON SETTER Ancillary Procedure [facility] [address] [facility] [address] [place] [phone] Zain Quintana MD 500 [place], [place] 0[address]05 10/01/2023 9:30 AM CARBON SETTER Ancillary Procedure [facility] [address] [facility] [address] [place] [phone] Zain Quintana MD 500 [place], [place] 372975 10/18/2023 PRE VISIT [facility] Colon and Rectal Surgery Clinic [address] [phone] Airam Hodges PA-C 500 [place], [place] 862225 Previsit 10/21/2023 11:30 AM CARBON SETTER Therapy Visit [facility] Rehabilitation Services [facility] [address] [facility] [address] [place] [address] Zain Quintana MD 500 [place], [place] 573545 Lainey Simon, PT [address] [place] [address] 10/26/2023 1:00 PM CARBON SETTER Virtual Visit [facility] Gastroenterology [address] [phone] Latricia Pettit PA-C [address] [place] [address] 10/28/2023 10:50 AM CARBON SETTER Therapy Visit [address] [address] Zain Quintana MD [address] [place] [address] Lainey Simon, PT [address] [place] [address] 11/04/2023 10:50 AM CARBON SETTER Therapy Visit [address] [address] Zain Quintana MD [address] [place] [address] Lainey Simon, PT [address] [place] [address] 11/24/2023 10:40 AM CDT Office Visit [facility] Gastroenterology Clinic [address] [phone] Abby Vasquez MD [address] [place] [address] 01/13/2024 10:00 AM CDT Virtual Visit [facility] Neurology Clinic [address] 3rd [place] [phone] Rosalba Pendleton APRN [address] [id number] [place] [address] 01/20/2024 8:00 PM CDT Therapy Visit [facility] Sleep [facility] [address] [phone] 03/14/2024 10:30 AM CDT Office Visit [facility] [address] [place] [address] [phone] Abhishek Acevedo PA-C [address] [id number] 03/21/2024 11:30 AM CDT Office Visit [facility] Colon and Rectal Surgery Clinic [address]th [place] [phone] Zain Quintana MD [address] [place] [address] 923805 documented as of this encounter Visit Diagnoses Not on filedocumented in this encounter Additional Health Concerns Infection Onset Date Last Indicated Resolved Time Rule Out COVID-19 04/03/2023 04/03/2023 04/04/2023 6:30 PM CDT Assessment Noted Time PHQ-9 Depression Total Score: 11 022 11:52 AM CDT documented as of this encounter Care Teams Ticket Counter Relationship Specialty Start Date End Date Monty Musa MD [facility] [address] [place] [address] PCP - General Family Medicine 08/13/21 Alfonso Tang [facility] [address] [place] [address] [facility] Practice 08/13/21 Dayanara Bee MD [address] 659205 Pediatrics 12/26/14 Min Lange MD [address] [address] Neurology 03/30/16 Marlo Madsen MD [address] [place] [address] [phone] Cardiology 10/27/16 Mel Buckley RN Nurse Coordinator Physical Medicine and Rehabilitation 12/02/16 Douglas Cadet MD 500 [place], [place] 287835 Gastroenterology 08/13/21 Rosalba Pendleton APRN TELEX OPERATOR [address] [place] [address] 970755 Nurse Practitioner Neurology 09/05/21 Rosalba Pendleton APRN TELEX OPERATOR [address] [place] [address] [phone] Assigned Neuroscience Provider 11/09/21 Douglas Cadet MD 500 [place], [place] 406885 Assigned Gastroenterology Provider 03/14/22 09/03/23 Marlo Madsen MD [address] [place] [address] [phone] Assigned Heart and Vascular Provider 03/14/22 Abby Vasquez MD 909 [place], [place] 776165 Gastroenterology 07/16/22 Abby Vasquez MD [address] [place] [address] 188875 Assigned PCP 09/26/22 Airam Hodges PA-C [address] [place] [address] 707205 Physician Instrumentation Engineering Technician Surgery 07/19/23 documented as of this encounter
--- OUTSIDE RECORDS SUMMARY | 2023-09-27 15:49 | XMS_ITS | Encounter Summary ---
Author Name Unknown Organization [place] Address 24[address] [facility] [place] [address] Care Team Providers Care Embosser Apprentice Name Role Phone Monty Musa MD Primary Care Provider [phone] Alfonso Tang Unavailable Unavailable Dayanara Bee MD Unavailable [phone] Min Lange MD Unavailable Unavailable Marlo Madsen MD Unavailable [phone] Mel Buckley RN Unavailable [phone] Douglas Cadet MD Unavailable [phone] Rosalba Pendleton APRN CHEMICAL RADIATION TECHNICIAN Unavaila ble Rosalba Pendleton APRN CHEMICAL RADIATION TECHNICIAN Unavaila ble Douglas Cadet MD Unavailable [phone] Marlo Madsen MD Unavailable [phone] Abby Vasquez MD Unavailable Abby Vasquez MD Unavailable Airam Hodges PA-C Unavailable [phone] Encounter Details Date Type Department Care Team (Late st Contact Info) Description 06/01/2022 [facility] [address] [phone] Andie Raya Social History Tobacco Use Types Packs/Day Years Used Date Smoking Tobacco: Never Smokeless Tobacco: Never Alcohol Use Standard Drinks/Week Comments No 0 (1 standard drink = 0.6 oz pur e alcohol) PHQ-2 Answer Date Recorded PHQ-2 Score 3 05/28/2022 Sex and Gender Information Value Date Recorded Sex Assigned at Female 10/31/2021 7:59 AM DIETARY SUPERVISOR Gender Identity Female 10/31/2021 7:59 AM DIETARY SUPERVISOR Sexual Orientation Straight 10/31/2021 7: 59 AM DIETARY SUPERVISOR COVID-19 Exposure Response Date Recorded In the last 10 days, have yo u been in contact with someone who was confirmed or suspected to have Coronavirus/COVID-19? No / Unsure 05/04/2022 7:58 AM CDT documented as of this encounter Plan of Treatment Upcoming Encounters Date Type Department Care Team (Late st Contact Info) Description 09/29/2023 9:30 AM DIETARY SUPERVISOR Ancillary Procedure [facility] [address] [facility] [address] [place] [phone] Zain Quintana MD 500 [place], [place] 45[address] 10/01/2023 9:30 AM DIETARY SUPERVISOR Ancillary Procedure [facility] [address] [facility] [address] [place] [phone] Zain Quintana MD 500 [place], [place] 55[address]45 10/18/2023 PRE VISIT [facility] [place] [address] [facility] 4th [place] [phone] Airam Hodges PA-C 500 [place], [place] 338525 Previsit 10/21/2023 11:30 AM DIETARY SUPERVISOR Therapy Visit [facility] Rehabilitation Services [facility] [address] [address] Zain Quintana MD [address] [place] [address] Lainey Simon, PT [address] [place] [address] 10/26/2023 1:00 PM DIETARY SUPERVISOR Virtual Visit [facility] Gastroenterology Clinic [address] [phone] Latricia Pettit PA-C [address] [place] [address] 021025 10/28/2023 10:50 AM DIETARY SUPERVISOR Therapy Visit [address] [address] Zain Quintana MD [address] [place] [address] Lainey Simon, PT [address] [place] [address] 11/04/2023 10:50 AM DIETARY SUPERVISOR Therapy Visit [address] [address] Zain Quintana MD [address] [place] [address] Lainey Simon, PT [address] [place] [address] 11/24/2023 10:40 AM CDT Office Visit [facility] Gastroenterology [address] [address] Abby Abarca MD [address] [place] [address] 01/13/2024 10:00 AM CDT Virtual Visit [facility] Neurology Clinic [address] 3rd [place] [phone] Rosalba Pendleton APRN [address] [id number] [place] [address] 01/20/2024 8:00 PM CDT Therapy Visit [facility] Sleep [address] [phone] 03/14/2024 10:30 AM CDT Office Visit [address] [phone] Abhishek Acevedo PA-C [address] [address] 03/21/2024 11:30 AM CDT Office Visit [facility] [address] 4th [place] [phone] Zain Quintana MD [address] [place] [address] 126095 documented as of this encounter Visit Diagnoses Not on filedocumented in this encounter Additional Health Concerns Infection Onset Date Last Indicated Resolved Time Rule Out COVID-19 04/03/2023 04/03/2023 04/04/2023 6:30 PM CDT Assessment Noted Time PHQ-9 Depression Total Score: 11 05/28/2 022 11:52 AM CDT documented as of this encounter Care Teams Embosser Apprentice Relationship Specialty Start Date End Date Monty Musa MD [facility] 103 [address] [facility] [place] [address] PCP - General Family Medicine 08/13/21 Alfonso Tang [facility] [address] [place] [address] [facility] 08/13/21 Dayanara Bee MD 420 [facility] 75 [place], [place] 871785 Pediatrics 12/26/14 Min Lange MD 420 [facility] 75 [place] [address] Neurology 03/30/16 Marlo Madsen MD 420 [facility] 508 [place], [place] 859415 Cardiology 10/27/16 Mel Buckley, RN Nurse Coordinator Physical Medicine and Rehabilitation 12/02/16 Douglas Cadet MD 500 [place], [place] 248005 Gastroenterology 08/13/21 Rosalba Pendleton APRN CHEMICAL RADIATION TECHNICIAN [address] [place], [place] [address]J [place], [place] 43[address] Nurse Practitioner Neurology 09/05/21 Rosalba Pendleton APRN CHEMICAL RADIATION TECHNICIAN [address] [place], [place] [address] [place] [address] Assigned Neuroscience Provider 11/09/21 Douglas Cadet MD 500 [place] [address] Assigned Gastroenterology Provider 03/14/22 09/03/23 Marlo Madsen MD 420 [facility] 508 [place], [place] 945585 Assigned Heart and Vascular Provider 03/14/22 Abby Vasquez MD [address] [place] [address] 964515 Gastroenterology 07/16/22 Abby Vasquez MD [address] [place] [address] 328625 Assigned PCP 09/26/22 Airam Hodges PA-C [address] [place] [address] [id number] Physician Property Field Inspector Surgery 07/19/23 documented as of this encounter
--- OUTSIDE RECORDS SUMMARY | 2023-09-27 15:50 | XMS_ITS | Encounter Summary ---
Author Name Unknown Organization [place] Address [address] [facility] [address] Care Team Providers Care Comic Artist Name Role Phone Alfonso Tang Primary Care Provider Unavailabl e Monty Musa MD Primary Care Provider [phone] Alfonso Tang Unavailable Unavailable Dayanara Bee MD Unavailable [phone] Min Lange MD Unavailable Unavailable Marlo Madsen MD Unavailable [phone] Mel Buckley RN Unavailable [phone] Douglas Cadet MD Unavailable [phone] Rosalba Pendleton APRN SCIENTIFIC DIVER Unavaila ble Rosalba Pendleton APRN SCIENTIFIC DIVER Unavaila ble Douglas Cadet MD Unavailable [phone] Marlo Madsen MD Unavailable [phone] Abby Vasquez MD Unavailable Abby Vasquez MD Unavailable Airam Hodges PA-C Unavailable [phone] Encounter Details Date Type Department Care Team (Late st Contact Info) Description 10/27/2016 [facility] - [facility] CONVERSION Scan, Non-Provider Social History Tobacco Use Types Packs/Day Years Used Date Smoking Tobacco: Never Smokeless Tobacco: Never Alcohol Use Standard Drinks/Week Comments No 0 (1 standard drink = 0.6 oz pur e alcohol) Sex and Gender Information Value Date Recorded Sex Assigned at Female 10/31/2021 7:59 AM DOWELING MACHINE OPERATOR Gender Identity Female 10/31/2021 7:59 AM DOWELING MACHINE OPERATOR Sexual Orientation Straight 10/31/2021 7: 59 AM DOWELING MACHINE OPERATOR documented as of this encounter Plan of Treatment Upcoming Encounters Date Type Department Care Team (Late st Contact Info) Description 09/29/2023 9:30 AM DOWELING MACHINE OPERATOR Ancillary Procedure [facility] [address] [facility] [address] [place] [phone] Zain Quintana MD 500 [place], [place] 15[address]35 10/01/2023 9:30 AM DOWELING MACHINE OPERATOR Ancillary Procedure [facility] [address] [facility] [address] [place] [phone] Zain Quintana MD 500 [place], [place] 298845 10/18/2023 PRE VISIT [facility]al Surgery [facility] [place] [address] [facility] [address] 4th [place] [phone] Airam Hodges PA-C 500 [place], [place] 65[address]55 Previsit 10/21/2023 11:30 AM DOWELING MACHINE OPERATOR Therapy Visit [facility] Rehabilitation Services [facility] [address] [facility] [address] [place] [address] Zain Quintana MD 500 [place], [place] 301895 [place] [address] [place] [address] 10/26/2023 1:00 PM DOWELING MACHINE OPERATOR Virtual Visit [facility] Gastroenterology Clinic [address] [phone] Latricia Pettit PA-C [address] [place] [address] 10/28/2023 10:50 AM DOWELING MACHINE OPERATOR Therapy Visit [address] [address] Zain Quintana MD [address] [place] [address] 645555 Lainey Simon, PT [address] [place] [address] 11/04/2023 10:50 AM DOWELING MACHINE OPERATOR Therapy Visit [address] [address] Zain Quintana MD [address] [place] [address] 482655 Lainey Simon, PT [address] [place] [address] 11/24/2023 10:40 AM CDT Office Visit [facility] Gastroenterology Clinic [address] [phone] Abby Vasquez MD [address] [place] [address] 01/13/2024 10:00 AM CDT Virtual Visit [facility] Neurology [address] [phone] Rosalba Pendleton APRN SCIENTIFIC DIVER [address] [facility] [id number] [place], [place] [address] 01/20/2024 8:00 PM CDT Therapy Visit [facility] Sleep [facility] [address] [phone] 03/14/2024 10:30 AM CDT Office Visit [facility] Sleep [facility] [address] [phone] Abhishek Acevedo PA-C [address] [id number] 03/21/2024 11:30 AM CDT Office Visit [facility] Clinic [address] 4th [place] [phone] Zain Quintana MD [address] [place] [address] documented as of this encounter Visit Diagnoses Not on filedocumented in this encounter Additional Health Concerns Infection Onset Date Last Indicated Resolved Time Rule Out COVID-19 04/03/2023 04/03/2023 04/04/2023 6:30 PM CDT documented as of this encounter Care Teams Comic Artist Relationship Specialty Start Date End Date Alfonso Tang PCP - General Family Practice 09/04/13 08/12/21 Monty Musa MD [facility] [address] [place] [address] PCP - General Family Medicine 08/13/21 Alfonso Tang Family Practice 08/13/21 Dayanara Bee MD [address] [place] [address] 75 [place], [place] 177605 Pediatrics 12/26/14 Min Lange MD 420 [facility] 75 [place] [address] Neurology 03/30/16 Marlo Madsen MD 420 [facility] [address] [place] [address] 814745 Cardiology 10/27/16 Mel Buckley, RN Nurse Coordinator Physical Medicine and Rehabilitation 12/02/16 Douglas Cadet MD 500 [place], [place] 723625 Gastroenterology 08/13/21 Rosalba Pendleton APRN SCIENTIFIC DIVER [address] [place] [address] 649375 Nurse Practitioner Neurology 09/05/21 Rosalba Pendleton APRN SCIENTIFIC DIVER [address] [place] [address] 120245 Assigned Neuroscience Provider 11/09/21 Douglas Cadet MD [address] [place] [address] Assigned Gastroenterology Provider 03/14/22 09/03/23 Marlo Madsen MD [address] [place] [address] 094375 Assigned Heart and Vascular Provider 03/14/22 Abby Vasquez MD [address] [place] [address] 229245 Gastroenterology 07/16/22 Abby Vasquez MD 909 [place], [place] 00188455 Assigned PCP 09/26/22 Airam Hodges PA-C 500 [place], [place] [phone] Physician Tape Weaver Surgery 07/19/23 documented as of this encounter
--- OUTSIDE RECORDS SUMMARY | 2023-09-27 15:50 | XMS_ITS | Encounter Summary ---
Author Name Unknown Organization [place] Address 2450 [facility] [place] [address] Care Team Providers Care Pump Operator Byproducts Name Role Phone Alfonso Tang Primary Care Provider Unavailabl e Monty Musa MD Primary Care Provider [phone] Alfonso Tang Unavailable Unavailable Dayanara Bee MD Unavailable [phone] Min Lange MD Unavailable Unavailable Marlo Madsen MD Unavailable [phone] Mel Buckley RN Unavailable [phone] Douglas Cadet MD Unavailable [phone] Rosalba Pendleton APRN WATERWORKS OPERATOR Unavaila ble Rosalba Pendleton APRN WATERWORKS OPERATOR Unavaila ble Douglas Cadet MD Unavailable [phone] Marlo Madsen MD Unavailable [phone] Abby Vasquez MD Unavailable Abby Vasquez MD Unavailable Airam Hodges PA-C Unavailable [phone] Encounter Details Date Type Department Care Team (Late st Contact Info) Description 07/30/2015 [facility] Medical Advice Medicine GI - [facility]E [facility] 1st Floor, Clinic 1E [address] [place] [phone] Ama Bustamante RN Social History Tobacco Use Types Packs/Day Years Used Date Smoking Tobacco: Never Smokeless Tobacco: Never Alcohol Use Standard Drinks/Week Comments No 0 (1 standard drink = 0.6 oz pur e alcohol) Sex and Gender Information Value Date Recorded Sex Assigned at Female 10/31/2021 7:59 AM FIELD SPEC Gender Identity Female 10/31/2021 7:59 AM FIELD SPEC Sexual Orientation Straight 10/31/2021 7: 59 AM FIELD SPEC documented as of this encounter Plan of Treatment Upcoming Encounters Date Type Department Care Team (Late st Contact Info) Description 09/29/2023 9:30 AM FIELD SPEC Ancillary Procedure [address] [place] [phone] Zain Quintana MD 500 [place], [place] 07[address] 10/01/2023 9:30 AM FIELD SPEC Ancillary Procedure [facility] [address] [facility] [address] [place] [phone] Zain Quintana MD 500 [place], [place] 8[address]495 10/18/2023 PRE VISIT [facility] Colon and Rectal Surgery Clinic [place] 909 [facility] 4th [place] [phone] Airam Hodges PA-C 500 [place], [place] 405815 Previsit 10/21/2023 11:30 AM FIELD SPEC Therapy Visit [facility] Rehabilitation Services [facility] [address] [place] [facility] [address] [place] [address] Zain Quintana MD 500 [place], [place] [phone] Lainey Simon, PT [address] [place] [address] 10/26/2023 1:00 PM FIELD SPEC Virtual Visit [facility] Gastroenterology Clinic [address] [phone] Latricia Pettit PA-C [address] [place] [address] 10/28/2023 10:50 AM FIELD SPEC Therapy Visit [address] [address] Zain Quintana MD [address] [place] [address] Lainey Simon, PT [address] [place] [address] 11/04/2023 10:50 AM FIELD SPEC Therapy Visit [address] [address] Zain Quintana MD [address] [place] [address] Lainey Simon, PT [address] [place] [address] 11/24/2023 10:40 AM CDT Office Visit [facility] Gastroenterology Clinic [address] [phone] Abby Vasquez MD [address] [place] [address] 01/13/2024 10:00 AM CDT Virtual Visit [facility] Neurology Clinic [address] 3rd [place] [phone] Rosalba Pendleton APRN [address] ST6601KW [place] [address] 01/20/2024 8:00 PM CDT Therapy Visit [facility] Sleep [facility] [address] [place] [address] [phone] 03/14/2024 10:30 AM CDT Office Visit [address] [phone] Abhishek Acevedo PA-C 6363 [facility] 103 [place], [place] 9525[address] 03/21/2024 11:30 AM CDT Office Visit [facility] Colon [facility]al Surgery Clinic [address] 4th [place] [phone] Zain Quintana MD [address] [place] [address] documented as of this encounter Visit Diagnoses Not on filedocumented in this encounter Additional Health Concerns Infection Onset Date Last Indicated Resolved Time Rule Out COVID-19 04/03/2023 04/03/2023 04/04/2023 6:30 PM CDT documented as of this encounter Care Teams Pump Operator Byproducts Relationship Specialty Start Date End Date Alfonso Tang PCP - General Family Practice 09/04/13 08/12/21 Monty Musa MD [facility] MEDICAL [facility] [address] [place] [address] PCP - General Family Medicine 08/13/21 Alfonso Tang Family Practice 08/13/21 Dayanara Bee MD [address] 550075 Pediatrics 12/26/14 Min Lange MD [address] [address] Neurology 03/30/16 Marlo Madsen MD [address] [place] [address] 103855 Cardiology 10/27/16 Mel Buckley RN Nurse Coordinator Physical Medicine and Rehabilitation 12/02/16 Douglas Cadet MD 500 [place], [place] 122525 Gastroenterology 08/13/21 Rosalba Pendleton APRN WATERWORKS OPERATOR [address] [place] [address] 403865 Nurse Practitioner Neurology 09/05/21 Rosalba Pendleton APRN WATERWORKS OPERATOR [address] [place] [address] 602795 Assigned Neuroscience Provider 11/09/21 Douglas Cadet MD 500 [place], [place] 989825 Assigned Gastroenterology Provider 03/14/22 09/03/23 Marlo Madsen MD [address] [place] [address] 811585 Assigned Heart and Vascular Provider 03/14/22 Abby Vasquez MD 909 [place], [place] 393825 Gastroenterology 07/16/22 Abby Vasquez MD [address] [place] [address] 774875 Assigned PCP 09/26/22 Airam Hodges PA-C [address] [place] [address] 257105 Physician Cotton Weigher Surgery 07/19/23 documented as of this encounter
--- OUTSIDE RECORDS SUMMARY | 2023-09-27 15:50 | XMS_ITS | Encounter Summary ---
Author Name Unknown Organization [place] Address 2450 [facility] [address] Care Team Providers Care Bumper Machine Operator Name Role Phone Alfonso Tang Primary Care Provider Unavailabl e Monty Musa MD Primary Care Provider [phone] Alfonso Tang Unavailable Unavailable Dayanara Bee MD Unavailable [phone] Min Lange MD Unavailable Unavailable Marlo Madsen MD Unavailable [phone] Mel Buckley RN Unavailable [phone] Douglas Cadet MD Unavailable [phone] Rosalba Pendleton APRN ELECTRIC CELL TENDER Unavaila ble Rosalba Pendleton APRN ELECTRIC CELL TENDER Unavaila ble Douglas Cadet MD Unavailable [phone] Marlo Madsen MD Unavailable [phone] Abby Vasquez MD Unavailable Abby Vasquez MD Unavailable Airam Hodges PA-C Unavailable [phone] Encounter Details Date Type Department Care Team (Late st Contact Info) Description 09/16/2016 Records - [facility] CONVERSION Scan, Non-Provider Social History Tobacco Use Types Packs/Day Years Used Date Smoking Tobacco: Never Smokeless Tobacco: Never Alcohol Use Standard Drinks/Week Comments No 0 (1 standard drink = 0.6 oz pur e alcohol) Sex and Gender Information Value Date Recorded Sex Assigned at Female 10/31/2021 7:59 AM CLOTH HAULER Gender Identity Female 10/31/2021 7:59 AM CLOTH HAULER Sexual Orientation Straight 10/31/2021 7: 59 AM CLOTH HAULER documented as of this encounter Plan of Treatment Upcoming Encounters Date Type Department Care Team (Late st Contact Info) Description 09/29/2023 9:30 AM CLOTH HAULER Ancillary Procedure [facility] [address] [facility] [address] [place] [phone] Zain Quintana MD 500 [place], [place] 6[address]65 10/01/2023 9:30 AM CLOTH HAULER Ancillary Procedure [facility] 303 [facility] [address] [place] [phone] Zain Quintana MD 500 [place], [place] 881955 10/18/2023 PRE VISIT [facility] Colon [facility]al [facility] Clinic [place] [address] [facility] [address] 4th [place] [phone] Airam Hodges PA-C 500 [place], [place] 286665 Previsit 10/21/2023 11:30 AM CLOTH HAULER Therapy Visit [facility] Rehabilitation Services [facility] [address] [facility] [address] [place] [address] Zain Quintana MD 500 [place], [place] 482685 [place] [address] [place] [address] 10/26/2023 1:00 PM CLOTH HAULER Virtual Visit [facility] Gastro[facility]ology Clinic [address] [phone] Latricia Pettit PA-C [address] [place] [address] 10/28/2023 10:50 AM CLOTH HAULER Therapy Visit [address] [address] Zain Quintana MD [address] [place] [address] 903295 Lainey Simon, PT [address] [place] [address] 11/04/2023 10:50 AM CLOTH HAULER Therapy Visit [address] [address] Zain Quintana MD [address] [place] [address] 608895 Lainey Simon, PT [address] [place] [address] 11/24/2023 10:40 AM CDT Office Visit [facility] G[facility]ology Clinic [address] [phone] Abby Vasquez MD [address] [place] [address] 01/13/2024 10:00 AM CDT Virtual Visit [facility] Neurology [address] [phone] Rosalba Pendleton APRN ELECTRIC CELL TENDER 909 [facility] [id number] [place], [place] 2[address] 01/20/2024 8:00 PM CDT Therapy Visit [facility] Sleep [facility] [address] [address] 03/14/2024 10:30 AM CDT Office Visit [facility] Sleep [facility] [address] [phone] Abhishek Acevedo PA-C [address] [id number] 03/21/2024 11:30 AM CDT Office Visit [facility] Clinic [address] 4th [place] [phone] Zain Quintana MD [address] [place] [address] documented as of this encounter Visit Diagnoses Not on filedocumented in this encounter Additional Health Concerns Infection Onset Date Last Indicated Resolved Time Rule Out COVID-19 04/03/2023 04/03/2023 04/04/2023 6:30 PM CDT documented as of this encounter Care Teams Bumper Machine Operator Relationship Specialty Start Date End Date Alfonso Tang PCP - General Family Practice 09/04/13 08/12/21 Monty Musa MD [facility] [address] [place] [address] PCP - General Family Medicine 08/13/21 Alfonso Tang Family Practice 08/13/21 Dayanara Bee MD [address] [place] [address] 75 [place], [place] 8[address]285 Pediatrics 12/26/14 Min Lange MD 420 [facility] 75 [place] [address] Neurology 03/30/16 Marlo Madsen MD 420 [facility] [address] [place] [address] 529375 Cardiology 10/27/16 Mel Buckley, RN Nurse Coordinator Physical Medicine and Rehabilitation 12/02/16 Douglas Cadet MD 500 [place], [place] 224145 Gastroenterology 08/13/21 Rosalba Pendleton APRN ELECTRIC CELL TENDER [address] [place] [address] 551095 Nurse Practitioner Neurology 09/05/21 Rosalba Pendleton APRN ELECTRIC CELL TENDER [address] [place] [address] 468385 Assigned Neuroscience Provider 11/09/21 Douglas Cadet MD [address] [place] [address] Assigned Gastroenterology Provider 03/14/22 09/03/23 Marlo Madsen MD [address] [place] [address] 188495 Assigned Heart and Vascular Provider 03/14/22 Abby Vasquez MD [address] [place] [address] 828655 Gastroenterology 07/16/22 Abby Vasquez MD 909 [place], [place] [phone] Assigned PCP 09/26/22 Airam Hodges PA-C 500 [place], [place] [phone] Physician Coffin Maker Surgery 07/19/23 documented as of this encounter
--- OUTSIDE RECORDS SUMMARY | 2023-09-27 15:50 | XMS_ITS | Encounter Summary ---
Author Name Unknown Organization [place] Address [address] [facility] [place] [address] Care Team Providers Care Instructor Of Sociology Name Role Phone Alfonso Tang Primary Care Provider Unavailabl e Monty Musa MD Primary Care Provider [phone] Alfonso Tang Unavailable Unavailable Dayanara Bee MD Unavailable [phone] Min Lange MD Unavailable Unavailable Marlo Madsen MD Unavailable [phone] Mel Buckley RN Unavailable [phone] Douglas Cadet MD Unavailable [phone] Rosalba Pendleton APRN SUPERVISOR FILTRATION Unavaila ble Rosalba Pendleton APRN SUPERVISOR FILTRATION Unavaila ble Douglas Cadet MD Unavailable [phone] Marlo Madsen MD Unavailable [phone] Abby Vasquez MD Unavailable Abby Vasquez MD Unavailable Airam Hodges PA-C Unavailable [phone] Encounter Details Date Type Department Care Team (Late st Contact Info) Description 04/02/2015 [facility] Medical Advice [facility] Physicians Heart [facility] 4th Floor, Clinic 4B [facility] [address] [place] [phone] Marlo Madsen MD 420 [facility] 508 [place] [address] Social History Tobacco Use Types Packs/Day Years Used Date Smoking Tobacco: Never Smokeless Tobacco: Never Alcohol Use Standard Drinks/Week Comments No 0 (1 standard drink = 0.6 oz pur e alcohol) Sex and Gender Information Value Date Recorded Sex Assigned at Female 10/31/2021 7:59 AM STOREROOM SUPERVISOR Gender Identity Female 10/31/2021 7:59 AM STOREROOM SUPERVISOR Sexual Orientation Straight 10/31/2021 7: 59 AM STOREROOM SUPERVISOR documented as of this encounter Plan of Treatment Upcoming Encounters Date Type Department Care Team (Late st Contact Info) Description 09/29/2023 9:30 AM STOREROOM SUPERVISOR Ancillary Procedure [address] [place] [phone] Zain Quintana MD 500 [place], [place] [address]295 10/01/2023 9:30 AM STOREROOM SUPERVISOR Ancillary Procedure [facility] [address] [facility] [address] [place] [phone] Zain Quintana MD 500 [place], [place] 133925 10/18/2023 PRE VISIT [facility] Colon and Rectal Surgery [facility] 909 [facility] 4th [place] [phone] Airam Hodges PA-C 500 [place], [place] 440545 Previsit 10/21/2023 11:30 AM STOREROOM SUPERVISOR Therapy Visit [facility] Rehabilitation Services [facility] [address] [facility] [address] [place] [address] Zain Quintana MD [address] [place] [address] Lainey Simon, PT [address] [place] [address] 10/26/2023 1:00 PM STOREROOM SUPERVISOR Virtual Visit [facility] Gastroenterology [address] [phone] Latricia Pettit PA-C [address] [place] [address] 763035 10/28/2023 10:50 AM STOREROOM SUPERVISOR Therapy Visit [address] [address] Zian Quintana MD [address] [place] [address] Lainey Smion, PT [address] [place] [address] 11/04/2023 10:50 AM STOREROOM SUPERVISOR Therapy Visit [address] [address] Zain Quintana MD [address] [place] [address] Lainey Simon, PT [address] [place] [address] 728277 11/24/2023 10:40 AM CDT Office Visit [facility] Gastroenterology [address] [phone] Abby Vasquez MD [address] [place] [address] 01/13/2024 10:00 AM CDT Virtual Visit [facility] Neurology Clinic [address] 3rd [place] [phone] Rosalba Pendleton, FUR CLEANER SUPERVISOR FILTRATION [address] [place] [address] [id number] [place] [address] 01/20/2024 8:00 PM CDT Therapy Visit [facility] Sleep [address] [phone] 03/14/2024 10:30 AM CDT Office Visit [facility] [address] [place] [phone] Abhishek Acevedo PA-C [address] [id number] 03/21/2024 11:30 AM CDT Office Visit [facility] Colon and Rectal Surgery Clinic [address] 4th [place] [phone] Zain Quintana MD [address] [place] [address] documented as of this encounter Visit Diagnoses Not on filedocumented in this encounter Additional Health Concerns Infection Onset Date Last Indicated Resolved Time Rule Out COVID-19 04/03/2023 04/03/2023 04/04/2023 6:30 PM CDT documented as of this encounter Care Teams Instructor Of Sociology Relationship Specialty Start Date End Date Alfonso Tang PCP - General Family Practice 09/04/13 08/12/21 Monty Musa MD [facility] [address] [place] [address] PCP - General Family Medicine 08/13/21 Alfonso Tang Family Practice 08/13/21 Dayanara Bee MD [address] [address] Pediatrics 12/26/14 Min Lange MD [address] [address] Neurology 03/30/16 Marlo Madsen MD [address] [place] [address] 754375 Cardiology 10/27/16 Mel [place], RN Nurse Coordinator Physical Medicine and Rehabilitation 12/02/16 Douglas Cadet MD 500 [place] [address] Gastroenterology 08/13/21 Rosalba Pendleton APRN SUPERVISOR FILTRATION [address] [place] [address] 285785 Nurse Practitioner Neurology 09/05/21 Rosalba Pendleton APRN SUPERVISOR FILTRATION [address] [place] [address]47 Assigned Neuroscience Provider 11/09/21 Douglas Cadet MD 500 [place] [address] Assigned Gastroenterology Provider 03/14/22 09/03/23 Marlo Madsen MD [address] [place] [address] Assigned Heart and Vascular Provider 03/14/22 Abby Vasquez MD [address] [place] [address] Gastroenterology 07/16/22 Abby Vasquez MD [address] [place] [address] Assigned PCP 09/26/22 Airam Hodges PA-C [address] [place] [address] [id number] Physician Material Checker Surgery 07/19/23 documented as of this encounter
--- OUTSIDE RECORDS SUMMARY | 2023-09-27 15:50 | XMS_ITS | Encounter Summary ---
Author Name Unknown Organization [place] Address [address] [facility] [place] [address] Care Team Providers Care Hospital Supervisor Name Role Phone Monty Musa MD Primary Care Provider [phone] Alfonso Tang Unavailable Unavailable Dayanara Bee MD Unavailable [phone] Min Lange MD Unavailable Unavailable Marlo Madsen MD Unavailable [phone] Mel Buckley RN Unavailable [phone] Douglas Cadet MD Unavailable [phone] Rosalba Pendleton APRN TIN POURER Unavaila ble Rosalba Pendleton APRN TIN POURER Unavaila ble Douglas Cadet MD Unavailable [phone] Marlo Madsen MD Unavailable [phone] Abby Vasquez MD Unavailable Abby Vasquez MD Unavailable Airam Hodges PA-C Unavailable [phone] Reason for Visit * Reason Onset Date Comments Appointment 08/13/2021 Encounter Details Date Type Department Care Team (Late st Contact Info) Description 08/13/[address] [facility] Gastroenterology Clinic [place] [address] [facility] [address] 4th [place] [phone] Douglas Cadet MD [address] [place] [address] Appointment Social History Tobacco Use Types Packs/Day Years Used Date Smoking Tobacco: Never Assessed Sex and Gender Information Value Date Recorded Sex Assigned at Female 10/31/2021 7:59 AM WATER QUALITY MANAGER Gender Identity Female 10/31/2021 7:59 AM WATER QUALITY MANAGER Sexual Orientation Straight 10/31/2021 7: 59 AM WATER QUALITY MANAGER COVID-19 Exposure Response Date Recorded In the last month, have you been in contact with someone who was confirmed or suspected to have Coronavirus / COVID-19? Unable to assess 08/13/2021 10:06 AM WATER QUALITY MANAGER documented as of this encounter Miscellaneous Notes * Telephone Encounter - Ashleigh Shahid - 08/13/2021 10:07 AM CST [facility] Phone Message May a detailed message be left on voicemail: yes Reason for Call: Other: Patient is being referred for IBS and is experiencing weight loss, 80lbs within the last year. Please review per scheduling guidelines. Thanks! Action Taken: Message routed to: [facility] GI Travel Screening: Not Applicable R QUALITY MANAGER documented in this encounter Plan of Treatment Upcoming Encounters Date Type Department Care Team (Late st Contact Info) Description 09/29/2023 9:30 AM WATER QUALITY MANAGER Ancillary Procedure [facility] [address] [place] [phone] Zain Quintana MD [address] [place] [address] 10/01/2023 9:30 AM WATER QUALITY MANAGER Ancillary Procedure [facility] [address] [place] [phone] Zain Quintana MD 500 [place] [address] 10/18/[address] [facility] Colon and Rectal Surgery Clinic [address] [phone] Airam Hodges PA-C 500 [place], [place] 731585 Previsit 10/21/2023 11:30 AM WATER QUALITY MANAGER Therapy Visit [address] [address] Zain Quintana MD [address] [place] [address] Lainey Simon, PT [address] [place] [address] 10/26/2023 1:00 PM WATER QUALITY MANAGER Virtual Visit [facility] Gastroenterology Clinic [address] [phone] Latricia Pettit PA-C [address] [place] [address] 10/28/2023 10:50 AM WATER QUALITY MANAGER Therapy Visit [address] [address] Zain Quintana MD [address] [place] [address] 490555 Lainey Simon, PT [address] [place] [address] 11/04/2023 10:50 AM WATER QUALITY MANAGER Therapy Visit [address] [address] Zain Quintana MD 500 [place], [place] 597875 [place] [address] [place] [address] 11/24/2023 10:40 AM CDT Office Visit [facility] Gastroenterology Clinic [address] 4th [place] [phone] Abby Vasquez MD [address] [place] [address] 649425 01/13/2024 10:00 AM CDT Virtual Visit [facility] Neurology Clinic [address] 3rd [place] [phone] Rosalba Pendleton, MANAGER SUPPLY CHAIN PLANNING [address] AG4855NE [place], [place] [address] 01/20/2024 8:00 PM CDT Therapy Visit [facility] Sleep [address] [phone] 03/14/2024 10:30 AM CDT Office Visit [facility] Sleep [address] [phone] Abhishek Acevedo PA-C [address] [id number] 03/21/2024 11:30 AM CDT Office Visit [facility] Colon and Rectal Surgery Clinic [address] [phone] Zain Quintana MD [address] [place] [address] 298625 documented as of this encounter Visit Diagnoses Not on filedocumented in this encounter Additional Health Concerns Infection Onset Date Last Indicated Resolved Time Rule Out COVID-19 04/03/2023 04/03/2023 04/04/2023 6:30 PM CDT documented as of this encounter Care Teams Hospital Supervisor Relationship Specialty Start Date End Date Monty Musa MD [facility] [address] [place] [address] PCP - General Family Medicine 08/13/21 Alfonso Tang [facility] [address] [place] [address] [facility] 08/13/21 Dayanara Bee MD 420 [facility] 75 [place] [address] Pediatrics 12/26/14 Min Lange MD 420 [facility] 75 [place] [address] Neurology 03/30/16 Marlo Madsen MD 420 [facility] 508 [place] [address] Cardiology 10/27/16 Mel Buckley, RN Nurse Coordinator Physical Medicine and Rehabilitation 12/02/16 Douglas Cadet MD [address] [place] [address] Gastroenterology 08/13/21 Rosalba Pendleton APRN TIN POURER [address] [place] [address] [address] Nurse Practitioner Neurology 09/05/21 Rosalba Pendleton, MANAGER SUPPLY CHAIN PLANNING TIN POURER [address]09 [facility] [id number] [place], [place] 814925 Assigned Neuroscience Provider 11/09/21 Douglas Cadet MD 500 [place] [address] Assigned Gastroenterology Provider 03/14/22 09/03/23 Marlo Madsen MD [address] [place] [address] 508 [place], [place] 679605 Assigned Heart and Vascular Provider 03/14/22 Abby Vasquez MD [address] [place] [address] 554975 Gastroenterology 07/16/22 Abby Vasquez MD [address] [place] [address] 029075 Assigned PCP 09/26/22 Airam Hodges PA-C 500 [place], [place] 200495 Physician Vice President Sales And Marketing Surgery 07/19/23 documented as of this encounter
--- OUTSIDE RECORDS SUMMARY | 2023-09-27 15:50 | XMS_ITS | Encounter Summary ---
Author Name Unknown Organization [place] Address [address] [place] [address] Care Team Providers Care Clinical Support Manager Name Role Phone Alfonso Tang Primary Care Provider Unavailabl e Monty Musa MD Primary Care Provider [phone] Alfonso Tang Unavailable Unavailable Dayanara Bee MD Unavailable [phone] Min Lange MD Unavailable Unavailable Marlo Madsen MD Unavailable [phone] Mel Buckley RN Unavailable [phone] Douglas Cadet MD Unavailable [phone] Rosalba Pendleton APRN ROLL EDGE MACHINE OPERATOR Unavaila ble Rosalba Pendleton APRN ROLL EDGE MACHINE OPERATOR Unavaila ble Douglas Cadet MD Unavailable [phone] Marlo Madsen MD Unavailable [phone] Abby Vasquez MD Unavailable Abby Vasquez MD Unavailable Airam Hodges PA-C Unavailable [phone] Encounter Details Date Type Department Care Team (Late st Contact Info) Description 12/12/2016 [facility] Hepatology Clinic [address] [phone] Chaitanya Garza MD [address] [place] [address] [address] [place], [place] 0[address]05 Social History Tobacco Use Types Packs/Day Years Used Date Smoking Tobacco: Never Smokeless Tobacco: Never Alcohol Use Standard Drinks/Week Comments No 0 (1 standard drink = 0.6 oz pur e alcohol) Sex and Gender Information Value Date Recorded Sex Assigned at Female 10/31/2021 7:59 AM ROASTER HELPER Gender Identity Female 10/31/2021 7:59 AM ROASTER HELPER Sexual Orientation Straight 10/31/2021 7: 59 AM ROASTER HELPER documented as of this encounter Plan of Treatment Upcoming Encounters Date Type Department Care Team (Late st Contact Info) Description 09/29/2023 9:30 AM ROASTER HELPER Ancillary Procedure [address] [place] [phone] Zain Quintana MD 500 [place], [place] 421275 10/01/2023 9:30 AM ROASTER HELPER Ancillary Procedure [facility] [address] [facility] [address] [place] [phone] Zain Quintana MD 500 [place], [place] 081875 10/18/2023 PRE VISIT [facility] Colon and Rectal Surgery Clinic [address] 4th [place] [phone] Airam Hodges PA-C 500 [place], [place] 634135 Previsit 10/21/2023 11:30 AM ROASTER HELPER Therapy Visit [facility] Rehabilitation Services [facility] [address] [facility] [address] [place] [address] Zain Quintana MD 500 [place] [address] Lainey Simon, PT [address] [place] [address] 10/26/2023 1:00 PM ROASTER HELPER Virtual Visit [facility] Gastroenterology Clinic [address] [phone] Latricia Pettit PA-C [address] [place] [address] 465865 10/28/2023 10:50 AM ROASTER HELPER Therapy Visit [address] [address] Zain Quintana MD [address] [place] [address] Lainey Simon, PT [address] [place] [address] 11/04/2023 10:50 AM ROASTER HELPER Therapy Visit [address] [address] Zain Quintana MD [address] [place] [address] Lainey Simon, PT [address] [place] [address] 279207 11/24/2023 10:40 AM CDT Office Visit [facility] Gastroenterology Clinic [address] [phone] Abby Vasquez MD [address] [place] [address] 01/13/2024 10:00 AM CDT Virtual Visit [facility] Neurology Clinic [address] 3rd [place] [phone] Rosalba Pendleton, MAXIMILIANO ROLL EDGE MACHINE OPERATOR [address] [place] [address] [id number] [place] [address] 01/20/2024 8:00 PM CDT Therapy Visit [facility] Sleep [facility] [address] [place] [phone] 03/14/2024 10:30 AM CDT Office Visit [facility] [address] [phone] Abhishek Acevedo PA-C 2906 [facility] 103 [place] [address] 03/21/2024 11:30 AM CDT Office Visit [facility] Colon and Rectal Surgery Clinic [address] 4th [place] [phone] Zain Quintana MD [address] [place] [address] documented as of this encounter Visit Diagnoses Not on filedocumented in this encounter Additional Health Concerns Infection Onset Date Last Indicated Resolved Time Rule Out COVID-19 04/03/2023 04/03/2023 04/04/2023 6:30 PM CDT documented as of this encounter Care Teams Clinical Support Manager Relationship Specialty Start Date End Date Alfonso Tang PCP - General Family Practice 09/04/13 08/12/21 Monty Musa MD [facility] [address] [place] [address] PCP - General Family Medicine 08/13/21 Alfonso Tang Family Practice 08/13/21 Dayanara Bee MD 420 [facility] 75 [place] [address] Pediatrics 12/26/14 Min Lange MD 420 [facility] 75 [place] [address] Neurology 03/30/16 Marlo Madsen MD [address] [place] [address] 211635 Cardiology 10/27/16 Mel Buckley, DIAZ Nurse Coordinator Physical Medicine and Rehabilitation 12/02/16 Douglas Cadet MD 500 [place] [address] Gastroenterology 08/13/21 Rosalba Pendleton APRN ROLL EDGE MACHINE OPERATOR [address] [place] [address] 775405 Nurse Practitioner Neurology 09/05/21 Rosalba Pendleton APRN ROLL EDGE MACHINE OPERATOR [address] [place] [address] Assigned Neuroscience Provider 11/09/21 Douglas Cadet MD 500 [place] [address] Assigned Gastroenterology Provider 03/14/22 09/03/23 Marlo Madsen MD [address] [place] [address] Assigned Heart and Vascular Provider 03/14/22 Abby Vasquez MD [address] [place] [address] Gastroenterology 07/16/22 Abby Vasquez MD [address] [place] [address] Assigned PCP 09/26/22 Airam Hodges PA-C [address] [place] [address] 734155 Physician Documentation Spec Surgery 07/19/23 documented as of this encounter
--- OUTSIDE RECORDS SUMMARY | 2023-09-27 15:50 | XMS_ITS | Encounter Summary ---
Author Name Unknown Organization [place] Address [address] [facility] [place] [address] Care Team Providers Care Swatch Paster Name Role Phone Monty Musa MD Primary Care Provider [phone] Alfonso Tang Unavailable Unavailable Dayanara Bee MD Unavailable [phone] Min Lange MD Unavailable Unavailable Marlo Madsen MD Unavailable [phone] Mel Buckley RN Unavailable [phone] Douglas Cadet MD Unavailable [phone] Rosalba Pendleton APRN BONDING MACHINE TENDER Unavaila ble Rosalba Pendleton APRN BONDING MACHINE TENDER Unavaila ble Douglas Cadet MD Unavailable [phone] Marlo Madsen MD Unavailable [phone] Abby Vasquez MD Unavailable Abby Vasquez MD Unavailable Airam Hodges PA-C Unavailable [phone] Encounter Details Date Type Department Care Team (Late st Contact Info) Description 09/07/2021 MyC Medical Advice Initial Department Andie Raya Social History Tobacco Use Types Packs/Day Years Used Date Smoking Tobacco: Never Assessed Sex and Gender Information Value Date Recorded Sex Assigned at Female 10/31/2021 7:59 AM SPRING INSPECTOR Gender Identity Female 10/31/2021 7:59 AM SPRING INSPECTOR Sexual Orientation Straight 10/31/2021 7: 59 AM SPRING INSPECTOR COVID-19 Exposure Response Date Recorded In the last month, have you been in contact with someone who was confirmed or suspected to have Coronavirus / COVID-19? Unable to assess 08/13/2021 10:06 AM SPRING INSPECTOR documented as of this encounter Plan of Treatment Upcoming Encounters Date Type Department Care Team (Late st Contact Info) Description 09/29/2023 9:30 AM SPRING INSPECTOR Ancillary Procedure [facility] [address] [facility] [address] [place] [phone] Zain Quintana MD 500 [place], [place] [address] 10/01/2023 9:30 AM SPRING INSPECTOR Ancillary Procedure [facility] [address] [facility] [address] [place] [phone] Zain Quintana MD [address] [place], [place] [address] 10/18/2023 PRE VISIT [facility] [address] 4th [place] [phone] Airam Hodges PA-C 500 [place], [place] [phone] Previsit 10/21/2023 11:30 AM SPRING INSPECTOR Therapy Visit [facility] Rehabilitation Services [facility] [address] [facility] 300 [place], [place] [address] Zain Quintana MD 500 [place], [place] 9[address] Lainey Simon, JAY [address] [place] [address] 10/26/2023 1:00 PM SPRING INSPECTOR Virtual Visit [facility] Gastroenterology [address] [phone] Latricia Pettit PA-C [address] [place] [address] 266775 10/28/2023 10:50 AM SPRING INSPECTOR Therapy Visit [address] [address] Zain Quintana MD [address] [place] [address] Lainey Simon, PT [address] [place] [address] 11/04/2023 10:50 AM SPRING INSPECTOR Therapy Visit [address] [address] Zain Quintana MD [address] [place] [address] Lainey Simon, PT [address] [place] [address] 11/24/2023 10:40 AM CDT Office Visit [facility] Gastroenterology Clinic [address] [phone] Abby Vasquez MD [address] [place] [address] 740715 01/13/2024 10:00 AM CDT Virtual Visit [facility] Neurology [address] [phone] Rosalba Pendleton, PLASMA CENTER TECHNICIAN BONDING MACHINE TENDER [address] [facility] [id number] [place] [address] 01/20/2024 8:00 PM CDT Therapy Visit [facility] Sleep [facility] [address] [facility] 103 [place] [phone] 03/14/2024 10:30 AM CDT Office Visit [facility] Sleep [facility] [address] [facility] 103 [place] [address] Abhishek Acevedo PA-C [address] [facility] 103 [place], [place] [phone] 03/21/2024 11:30 AM CDT Office Visit [facility] [address] 4th [place] [phone] Zain Quintana MD [address] [place] [address] [phone] documented as of this encounter Visit Diagnoses Not on filedocumented in this encounter Additional Health Concerns Infection Onset Date Last Indicated Resolved Time Rule Out COVID-19 04/03/2023 04/03/2023 04/04/2023 6:30 PM CDT documented as of this encounter Care Teams Swatch Paster Relationship Specialty Start Date End Date Monty Musa MD [facility] [address] [place] [address] PCP - General Family Medicine 08/13/21 Alfonso Tang [facility] [address] [place] [address] Family Practice 08/13/21 Dayanara Bee MD [address] [place] [address] 75 [place], [place] 9[address]85 Pediatrics 12/26/14 Min Lange MD [address] [facility] 75 [place] [address] Neurology 03/30/16 Marlo Madsen MD [address] 890895 Cardiology 10/27/16 Mel Buckley, RN Nurse Coordinator Physical Medicine and Rehabilitation 12/02/16 Douglas Cadet MD [address] [place] [address] 942335 Gastroenterology 08/13/21 Rosalba Pendleton APRN BONDING MACHINE TENDER [address] [place] [address] 821675 Nurse Practitioner Neurology 09/05/21 Rosalba Pendleton APRN BONDING MACHINE TENDER [address] [place] [address] [phone] Assigned Neuroscience Provider 11/09/21 Douglas Cadet MD [address] [place] [address] Assigned Gastroenterology Provider 03/14/22 09/03/23 Marlo Madsen MD [address] [place] [address] 160525 Assigned Heart and Vascular Provider 03/14/22 Abby Vasquez MD [address] [place] [address] 406725 Gastroenterology 07/16/22 Abby Vasquez MD [address] [place] [address] [id number] Assigned PCP 09/26/22 Airam Hodges PA-C [address] [place] [address] [id number] Physician Recovery Collector Surgery 07/19/23 documented as of this encounter
--- NOTE | 2023-09-27 16:00 | CRLHL7_ITS ---
For Patients: As a result of the Century Cures Act, medical imaging exams and procedure reports are released immediately into your electronic medical record. You may view this report before your referring provider. If you have questions, please contact your health care provider. INDICATION: Irregular cycles, no cholecystic ovarian syndrome. TECHNIQUE: Transvaginal pelvic ultrasound. FINDINGS: Uterus is retroverted and measures 7.5 x 3.1 x 4.1 cm. Normal endometrial stripe thickness of 3 mm. Multiple incidental nabothian cysts in the cervix. Left ovarian volume is 11.7 mL. Left ovary contains at least 12 subcentimeter follicles. No dominant follicle. Right ovarian volume is 24.0 mL. Right ovary contains at least 9 subcentimeter follicles. No dominant follicle. Normal color and spectral Doppler flow to both ovaries. No adnexal mass. Small amount of physiologic pelvic fluid. IMPRESSION: 1. Numerous subcentimeter follicles in both ovaries. No follicles greater than or equal to 1 cm. 2. Enlarged ovaries, right larger than left. 3. Findings support the diagnosis of PCOS. Dictated by Armando Krause MD @ 09/28/2023 9:25:51 AM (Electronically Signed)
== END 2023-09-27 15:41 | disposition home or self-care (01) ==
LOC: US 15:40
PROVIDERS: PCP Family Medicine; Visit Provider Obstetrics & Gynecology
DX: N92.6 Irregular menstruation, unspecified (principal); N83.02 Follicular cyst of left ovary; N83.01 Follicular cyst of right ovary; N91.1 Secondary amenorrhea
CPT/HCPCS: 76830

== ENCOUNTER 2023-10-25 14:02 | Outpatient (CLI) | payer MEDICARE, OTHER, SELFPAY ==
--- OUTSIDE RECORDS SUMMARY | 2023-10-25 14:11 | XMS_ITS | Clinical Summary ---
Author Name Unknown Organization [facility] Address [place], [place] [address] Care Team Providers Care Screening Tech Name Role Phone Pcp, No Primary Care Provider Adelso Ramos MD Unavailable [phone] Allergies Active Allergy Reactions Criticality Noted Date [...] Department Care Team Description 08/23/2023 Lab Requisition [facility] [phone] Unknown, Doctor from Last 3 Months Social [...] TRACKING EVENT Routine 08/20/2023 12 :00 PM SOFTWARE VERIFICATION ENGINEER RETAIL VISUAL MERCHANDISER THIN PREP PAP SCREEN IMAGED Routine 08/20/2023 12:00 PM SOFTWARE VERIFICATION ENGINEER HPV THIN PREP Routine 08/20/2023 12:00 PM SOFTWARE VERIFICATION ENGINEER from Last 3 Months Results * LAB TRACKING EVENT (08/20/2023 12:00 PM SOFTWARE VERIFICATION ENGINEER) Other (Other) Client Collect / Unknown 08/20/2023 12:00 PM SOFTWARE VERIFICATION ENGINEER 08/23/2023 3:57 PM SOFTWARE VERIFICATION ENGINEER Doctor Unknown LAB BILL ONLY [facility] [address] [place] [address], * RETAIL VISUAL MERCHANDISER THIN PREP PAP SCREEN IMAGED (08/20/2023 12:00 PM SOFTWARE VERIFICATION ENGINEER) Case Report Gynecologic Cytology Report ? Case: [id number] ? Authorizing Provider: ??Unknown, Doctor ?Collected: ? 08/20/2023 1200 ? Ordering Location: ? [facility] ?Received: ?08/24/2023 1143 ? First Screen: ?Jonathan Guerra A ? Rescreen: ?Mandy Bhatti ? Specimen: ?RETAIL VISUAL MERCHANDISER ThinPrep Vial Screening, Cervical ? 09/01/2023 1:51 PM SOFTWARE VERIFICATION ENGINEER [facility]-C ENTRAL LABORATORY INTERPRETATION/ RESULT NEGATIVE FOR INTRAEPITHELIAL LESION OR MALIGNANCY (NIL) (none) 09/01/2023 1:51 PM SOFTWARE VERIFICATION ENGINEER [facility] EN[facility]AL LABORATORY IMEN ADEQUACY Satisfactory for evaluation Endocervical component present 09/01/2023 1:51 PM SOFTWARE VERIFICATION ENGINEER [facility] ENTRAL LABORATORY HPV REQUEST HPV and PAP 09/01/2023 1:51 PM SOFTWARE VERIFICATION ENGINEER [facility] EN[facility]AL LABORAT[facility] Date of LMP 08/02/2023 09/01/2023 1:51 PM SOFTWARE VERIFICATION ENGINEER [facility] LAB[facility] Last Pap Date 11/24/2021 09/01/2023 1:51 PM SOFTWARE VERIFICATION ENGINEER [facility] Last Pap Result ASCUS 1:51 PM SOFTWARE VERIFICATION ENGINEER [facility] Abnormal Pap or [place] Bx in last 5 years Yes 09/01/2023 1:51 PM SOFTWARE VERIFICATION ENGINEER [facility] Menstrual Status Regular Periods 09/01/2023 1:51 PM SOFTWARE VERIFICATION ENGINEER [facility] [place] Bx Done Today No 09/01/2023 1:51 PM SOFTWARE VERIFICATION ENGINEER [facility] Additional Information 09/01/2023 1:51 PM SOFTWARE VERIFICATION ENGINEER [facility] Comment: Interpreted at [facility] - [address] [facility] [address], [place] [address] Automated Review Successful 09/01/2023 1:51 PM SOFTWARE VERIFICATION ENGINEER [facility] Comment:Specimen processed s uccessfully by automated shaft sinker device, ThinPrep Imaging System, [employer] ANCILLARY TESTING RETAIL VISUAL MERCHANDISER HPV Ordered, Please see separate report 09/01/2023 1:51 PM SOFTWARE VERIFICATION ENGINEER [facility] Note The pap test is a screening technique, not a diagnostic procedure. It is used primarily to screen for squamous cancers and precursor lesions. Published studies have shown that it is subject to both false negative and false positive results. The pap test should not be used as the sole means to diagnose or exclude pre-malignant and malignant lesions. 09/01/2023 1:51 PM SOFTWARE VERIFICATION ENGINEER [facility] Other (Cervical) 08/20/2023 12:00 PM SOFTWARE VERIFICATION ENGINEER 08/24/2023 11:43 AM SOFTWARE VERIFICATION ENGINEER Doctor Unknown PATHOLOGY/CYTOLOGY [facility] [address] [place] [address], * (ABNORMAL) HPV HIGH RISK (08/20/2023 12:00 PM SOFTWARE VERIFICATION ENGINEER) TYPE 16 Negative Negative 08/26/2023 11:15 AM SOFTWARE VERIFICATION ENGINEER [facility] TRAL LABORATORY TYPE 18 Negative Negative 08/26/2023 11:15 AM SOFTWARE VERIFICATION ENGINEER [facility] TRA LABORATORY OTHER HIGH RISK TYPES Positive(A) Negative 08/26/2023 11:15 AM SOFTWARE VERIFICATION ENGINEER [facility] Other (Cervical) 08/20/2023 12:00 PM SOFTWARE VERIFICATION ENGINEER 08/24/2023 11:43 AM SOFTWARE VERIFICATION ENGINEER Narrative [facility] - 08/26/2023 11:15 AM SOFTWARE VERIFICATION ENGINEER Specimen is positive for the DNA of any one of, or combination of, the following high risk HPV types: 31, 33, 35, 39, 45, 51, 52, 56, 58, 59, 66, 68. HPV types 16 and 18 DNA were undetectable or below the pre-set threshold. ? Methodology: Sharon Vahid 4800 HPV Test Doctor Unknown MICROBIOLOGY [facility] [address] [place] [address], from Last 3 Months Care Teams Screening Tech Relationship Specialty Start Date End Date Pcp, No . PCP - General 10/11/22 Adelso Lara MD [address] [place] [address] 10/11/22
--- OUTSIDE RECORDS SUMMARY | 2023-10-25 14:11 | XMS_ITS | Encounter Summary ---
Author Name Unknown Organization [place] Address [address] [facility] [place] [address] Care Team Providers Care Offender Job Retention Specialist Name Role Phone Monty Musa MD Primary Care Provider Alfonso Tang Unavailable Unavailable Dayanara Bee MD Unavailable [phone] Min Lange MD Unavailable Unavailable Marlo Madsen MD Unavailable [phone] Mel Buckley RN Unavailable [phone] Douglas Cadet MD Unavailable Rosalba Pendleton APRN INDUSTRIAL DESIGN INTERN Unavaila ble Rosalba Pendleton APRN INDUSTRIAL DESIGN INTERN Unavaila ble Marlo Madsen MD Unavailable [phone] Abby Vasquez MD Unavailable Airam Hodges PA-C Unavailable [phone] Zain Quintana MD Unavailable [phone] Latricia Pettit PA-C Unavailable [phone] Reason for Visit * Reason Onset Date Comments Previsit 10/18/2023 Encounter Details Date Type Department Care Team (Late st Contact Info) Description 10/18/2023 PRE VISIT [facility] [address] 4th [place] [address] Airam Hodges PA-C [address] [place] [address] Previsit Social History Tobacco Use Types Packs/Day Years [...] Sex Assigned at Female 10/31/2021 7:59 AM CONTROLS TECHNICIAN Gender Identity Female 10/31/2021 7:59 AM CONTROLS TECHNICIAN Sexual Orientation Straight 10/31/2021 7: 59 AM CONTROLS TECHNICIAN documented as of this encounter Miscellaneous Notes * Telephone Encounter - Jose Ware EMT - 08/26/2023 2:17 PM CST Called and talked to patient about rescheduling patient with a surgeon per Airam Hodges PA-C. Patient was scheduled with Zain Quintana MD ROLS TECHNICIAN * Telephone Encounter - Isi Clark - 07/26/2023 3:46 PM CST Diagnosis, Referred by & from: Constipation Appt date: 10/18/2023 NOTES STATUS DETAILS OFFICE NOTE from referring provider Internal [facility]: 07/14/23, 12/09/22 - GI OV with Dr. Vasquez OFFICE NOTE from other specialist Received / Care Everywhere [facility]: 04/23/23 - GI OV with KENDRICK Coto 03/04/22 - GI OV with Dr. Cadet 04/23/14 - CR OV with Supriya Hagan NP [facility]: 10/11/22 - UC OV with KENDRICK [facility]: 01/07/22 - PCC OV with Dr. Contreras 08/12/21 - PCC OV with Dr Musa DISCHARGE SUMMARY from hospital N/A DISCHARGE REPORT from the ER Internal [facility]: 07/09/23 - ED OV with Dr. Colvin 07/15/22 - ED OV with Dr. Cohen OPERATIVE REPORT N/A MEDICATION LIST Internal LABS BIOPSIES/PATHOLOGY RELATED TO DIAGNOSIS Care Everywhere / Internal [facility]: 10/16/21 - Colon Biopsy (Case: [id number]) [facility]: 12/10/16 - Colon Biopsy (Case: [id number]) 12/13/14 - Colon Biopsy (Case: [id number]) DIAGNOSTIC PROCEDURES PFC TESTING (from the Pelvic floor center includes Manometry, PDNL, EMG, etc.) Received Pelvic Floor Center: 11/12/22 - PFC Testing COLONOSCOPY Received / Internal [facility]: 10/16/21 - Colonoscopy [facility]: 12/10/16 - Colonoscopy 12/13/14 - Colonoscopy IMAGING (DISC & REPORT) CT [facility]: 07/09/23 - CT Abd/Pelvis 07/15/23 - CT Abd/Pelvis 05/04/22 - NM Gastric Records Requested 07/26/23 Facility [facility] Outcome * 07/26/23 3:57 PM Faxed request to [facility] for records to be faxed to the clinic. - Isi * 07/27/23 8:27 AM Records received from [facility] and sent to HIM to be scanned into the chart. -Isi ROLS TECHNICIAN documented in this encounter Plan of Treatment Upcoming Encounters Date Type Department Care Team (Late st Contact Info) Description 10/26/2023 1:00 PM CONTROLS TECHNICIAN Virtual Visit [facility] Gastroenterology Clinic [address] [place] [address] Latricia Pettit PA-C [address] [place] [address] [phone] 10/28/2023 10:50 AM CONTROLS TECHNICIAN Therapy Visit [facility] Rehabilitation Services [facility] [address] [facility] [address] [place], [place] [address] Zain Quintana MD [address] [place] [address] Lainey Simon, PT [address] [place] [address] 11/04/2023 10:50 AM CONTROLS TECHNICIAN Therapy Visit [address] [address] Zain Quintana MD [address] [place] [address] Lainey Simon, PT [address] [place] [address] 11/17/2023 11:00 AM CONTROLS TECHNICIAN Therapy Visit [address] [address] Lainey Simon PT [address] [place] [address] 11/24/2023 10:40 AM CDT Office Visit [facility] G[facility]enterology Clinic [address] [phone] Abby Vasquez MD [address] [place] [address] 11/24/2023 1:30 PM CDT Therapy Visit [address] [address] Lainey Simon, PT [address] [place] [address] 12/01/2023 10:20 AM CDT Therapy Visit [place] [id number] [facility] 300 [place] [address] [place] [address] [place] [address] 12/08/2023 10:20 AM CDT Therapy Visit [address] [place] [address] [place] [address] [place] [address] 01/13/2024 10:00 AM CDT Virtual Visit [facility] Neurology Clinic [address] [place] [phone] Rosalba Pendleton APRN [address] [place], [place] [address] 01/20/2024 8:00 PM CDT Therapy Visit [facility] Sleep [address] [phone] 03/14/2024 10:30 AM CDT Office Visit [address] [phone] Abhishek Acevedo PA-C [address] [address] 03/21/2024 11:30 AM CDT Office Visit [facility] [address] [place] [phone] Zain Quintana MD [address] [place] [address] 285875 documented as of this encounter Visit Diagnoses Not on filedocumented in this encounter Additional Health Concerns Assessment Noted Time PHQ-9 Depression Total Score: 12 023 8:53 AM CDT documented as of this encounter Care Teams Offender Job Retention Specialist Relationship Specialty Start Date End Date Monty Musa MD [facility] [address] [place] [address] PCP - General Family Medicine 08/13/21 Alfonso Tang [facility] [address] [place] [address] Family Practice 08/13/21 Dayanara Bee MD 420 [facility] 75 [place], [place] [address] Pediatrics 12/26/14 Min Lange MD 420 [facility] 75 [place] [address] Neurology 03/30/16 Marlo Madsen MD 420 [facility] 508 [place] [address] Cardiology 10/27/16 Mel Buckley, RN Nurse Coordinator Physical Medicine and Rehabilitation 12/02/16 Douglas Cadet MD [address] [place] [address] Gastroenterology 08/13/21 Rosalba Pendleton APRN INDUSTRIAL DESIGN INTERN [address] 669275 Nurse Practitioner Neurology 09/05/21 Rosalba Pendleton APRN INDUSTRIAL DESIGN INTERN [address] 204165 Assigned Neuroscience Provider 11/09/21 Marlo Madsen MD 420 [facility] [address] [place], [place] 4318[address] Assigned Heart and Vascular Provider 03/14/22 Abby Vasquez MD [address] [place] [address] 997875 Gastroenterology 07/16/22 Airam Hodges PA-C 500 [place], [place] [address] Physician Welt Butter Hand Surgery 07/19/23 Zain Quintana MD 500 [place], [place] 6[address] Assigned Surgical Provider 10/07/23 Latricia Pettit PA-C [address] [place] [address] 059055 Assigned Gastroenterology Provider 10/15/23 documented as of this encounter
--- OUTSIDE RECORDS SUMMARY | 2023-10-25 14:11 | XMS_ITS | Encounter Summary ---
Author Name Unknown Organization [place] Address [address] [facility] [place] [address] Care Team Providers Care Steamfitter Apprentice Name Role Phone Monty Musa MD Primary Care Provider Alfonso Tang Unavailable Unavailable Dayanara Bee MD Unavailable [phone] Min Lange MD Unavailable Unavailable Marlo Madsen MD Unavailable [phone] Mel Buckley RN Unavailable [phone] Douglas Cadet MD Unavailable [phone] Rosalba Pendleton APRN PSYCHOLOGY FELLOW Unavaila ble Rosalba Pendleton APRN PSYCHOLOGY FELLOW Unavaila ble Marlo Madsen MD Unavailable [phone] Abby Vasquez MD Unavailable Airam Hodges PA-C Unavailable [phone] Zain Quintana MD Unavailable [phone] Latricia Pettit PA-C Unavailable [phone] Encounter Details Date Type Department Care Team (Latest Contact Info) Description 10/21/2023 Travel Social History Tobacco Use Types Packs/Day [...] Sex Assigned at Female 10/31/2021 7:59 AM CONVERTER SKIMMER Gender Identity Female 10/31/2021 7:59 AM CONVERTER SKIMMER Sexual Orientation Straight 10/31/2021 7: 59 AM CONVERTER SKIMMER documented as of this encounter Plan of Treatment Upcoming Encounters Date Type Department Care Team (Late st Contact Info) Description 10/26/2023 1:00 PM CONVERTER SKIMMER Virtual Visit [facility] Gastroenterology Clinic [address] 4th [place] [phone] Latricia Pettit PA-C [address] [place] [address] 10/28/2023 10:50 AM CONVERTER SKIMMER Therapy Visit [address] [address] Zain Quintana MD [address] [place] [address] 756235 Lainey Simon, JAY [address] [place] [address] 11/04/2023 10:50 AM CONVERTER SKIMMER Therapy Visit [address] [address] Zain Quintana MD [address] [place] [address] 659575 Lainey Simon, JAY [address] [place] [address] 11/17/2023 11:00 AM CONVERTER SKIMMER Therapy Visit [address] [address] Lainey Simon, PT [address] [place] [address] 96396 11/24/2023 10:40 AM CDT Office Visit [facility] Gastroenterology Clinic [address] 4th [place] [phone] Abby Vasquez MD [address] [place] [address] 11/24/2023 1:30 PM CDT Therapy Visit [address] [address] Lainey Simon, PT [address] [place] [address] 12/01/2023 10:20 AM CDT Therapy Visit [address] [address] Lainey Simon, PT [address] [place] [address] 12/08/2023 10:20 AM CDT Therapy Visit [address] [address] Lainey Simon, PT [address] [place] [address] 01/13/2024 10:00 AM CDT Virtual Visit [facility] Neurology Clinic [place] [address] [facility] 3rd [place] [phone] Rosalba Pendleton APRN [address] [place] [address] 01/20/2024 8:00 PM CDT Therapy Visit [facility] Sleep [facility] [address] [address] [place] [phone] 03/14/2024 10:30 AM CDT Office Visit [facility] [address] [place] [phone] Abhishek Acevedo PA-C 6363 [facility] 103 [place], [place] [phone] 03/21/2024 11:30 AM CDT Office Visit [facility] Colon [facility] Rectal Surgery Clinic [address] 4th [place] [phone] Zain Quintana MD [address] [place] [address] [phone] documented as of this encounter Visit Diagnoses Not on filedocumented in this encounter Additional Health Concerns Assessment Noted Time PHQ-9 Depression Total Score: 12 023 8:53 AM CDT documented as of this encounter Care Teams Steamfitter Apprentice Relationship Specialty Start Date End Date Monty Musa MD [facility] [address] [place] [address] PCP - General Family Medicine 08/13/21 Alfonso Tang [facility] [address] [place] [address] Family Practice 08/13/21 Dayanara Bee MD [address] [address] Pediatrics 12/26/14 Min Lange MD [address] [address] Neurology 03/30/16 Marlo Madsen MD [address] [place] [address] Cardiology 10/27/16 Mel Buckley, RN Nurse Coordinator Physical Medicine and Rehabilitation 12/02/16 Douglas Cadet MD [address] [place] [address] Gastroenterology 08/13/21 Rosalba Pendleton APRN PSYCHOLOGY FELLOW [address] [place] [address] Nurse Practitioner Neurology 09/05/21 Rosalba Pendleton APRN PSYCHOLOGY FELLOW [address] [place] [address] Assigned Neuroscience Provider 11/09/21 Marlo Madsen MD [address] [place] [address] Assigned Heart and Vascular Provider 03/14/22 Abby Vasquez MD [address] [place] [address] Gastroenterology 07/16/22 Airam Hodges PA-C [address] [place] [address] 489745 Physician Health Technician Surgery 07/19/23 Zain Quintana MD [address] [place] [address] [phone] Assigned Surgical Provider 10/07/23 Latricia Pettit PA-C [address] [place] [address] Assigned Gastroenterology Provider 10/15/23 documented as of this encounter
--- OUTSIDE RECORDS SUMMARY | 2023-10-25 14:11 | XMS_ITS | Encounter Summary ---
Author Name Unknown Organization [place] Address [address] [facility] [place] [address] Care Team Providers Care Museum Guide Name Role Phone Monty Musa MD Primary Care Provider [phone] Alfonso Tang Unavailable Unavailable Dayanara Bee MD Unavailable [phone] Min Lange MD Unavailable Unavailable Marlo Madsen MD Unavailable [phone] Mel Buckley RN Unavailable [phone] Douglas Cadet MD Unavailable Rosalba Pendleton APRN ROLLER PRESSER OPERATOR Unavaila ble Rosalba Pendleton APRN ROLLER PRESSER OPERATOR Unavaila ble Marlo Madsen MD Unavailable [phone] Abby Vasquez MD Unavailable Airam Hodges PA-C Unavailable [phone] Zain Quintana MD Unavailable [phone] Latricia Pettit PA-C Unavailable [phone] Encounter Details Date Type Department Care Team (Latest Contact Info) Description 10/18/2023 Travel Social History Tobacco Use Types Packs/Day [...] Sex Assigned at Female 10/31/2021 7:59 AM INSTRUCTION DEAN Gender Identity Female 10/31/2021 7:59 AM INSTRUCTION DEAN Sexual Orientation Straight 10/31/2021 7: 59 AM INSTRUCTION DEAN documented as of this encounter Plan of Treatment Upcoming Encounters Date Type Department Care Team (Late st Contact Info) Description 10/26/2023 1:00 PM INSTRUCTION DEAN Virtual Visit [facility]ology [facility] [address]th [place] [phone] Latricia Pettit PA-C [address] [place] [address] 10/28/2023 10:50 AM INSTRUCTION DEAN Therapy Visit [address] [address] Zain Quintana MD [address] [place] [address] 108765 Lainey Simon, JAY [address] [place] [address] 11/04/2023 10:50 AM INSTRUCTION DEAN Therapy Visit [address] [address] Zain Quintana MD [address] [place] [address] 713565 Lainey Simon, JAY [address] [place] [address] 11/17/2023 11:00 AM INSTRUCTION DEAN Therapy Visit [address] [address] Lainey Simon, PT [address] [place] [address] 11/24/2023 10:40 AM CDT Office Visit [facility] [address] 4th [place] [phone] Abby Vasquez MD [address] [place] [address] 11/24/2023 1:30 PM CDT Therapy Visit [address] [address] Lainey Simon, PT [address] [place] [address] 12/01/2023 10:20 AM CDT Therapy Visit [address] [address] Lainey Simon, PT [address] [place] [address] 12/08/2023 10:20 AM CDT Therapy Visit [address] [address] Lainey Simon, PT [address] [place] [address] 01/13/2024 10:00 AM CDT Virtual Visit [facility] Neurology [facility] [place] 909 [facility] 3rd [place] [phone] Rosalba Pendleton APRN [address] [place] [address] 01/20/2024 8:00 PM CDT Therapy Visit [facility] Sleep [facility] [address] [address] [place] [phone] 03/14/2024 10:30 AM CDT Office Visit [facility] [address] [place] [phone] Abhishek Acevedo PA-C 6363 [facility] 103 [place], [place] [phone] 03/21/2024 11:30 AM CDT Office Visit [facility] [address] 4th [place] [phone] Zain Quintana MD [address] [place] [address] [phone] documented as of this encounter Visit Diagnoses Not on filedocumented in this encounter Additional Health Concerns Assessment Noted Time PHQ-9 Depression Total Score: 12 023 8:53 AM CDT documented as of this encounter Care Teams Museum Guide Relationship Specialty Start Date End Date Monty Musa MD [facility] [address] [place] [address] PCP - General Family Medicine 08/13/21 Alfonso Tang [facility] [address] [place] [address] Family Practice 08/13/21 Dayanara Bee MD [address] [address] Pediatrics 12/26/14 Min Lange MD [address] [address] Neurology 03/30/16 Marlo Madsen MD [address] [place] [address] Cardiology 10/27/16 Mel Buckley, RN Nurse Coordinator Physical Medicine and Rehabilitation 12/02/16 Douglas Cadet MD [address] [place] [address] Gastroenterology 08/13/21 Rosalba Pendleton APRN ROLLER PRESSER OPERATOR [address] [place] [address] Nurse Practitioner Neurology 09/05/21 Rosalba Pendleton APRN ROLLER PRESSER OPERATOR [address] [place] [address] Assigned Neuroscience Provider 11/09/21 Marlo Madsen MD [address] [place] [address] Assigned Heart and Vascular Provider 03/14/22 Abby Vasquez MD [address] [place] [address] Gastroenterology 07/16/22 Airam Hodges PA-C [address] [place] [address] 182785 Physician Pricer Bagger Surgery 07/19/23 Zain Quintana MD [address] [place] [address] 402655 Assigned Surgical Provider 10/07/23 Latricia Pettit PA-C [address] [place] [address] Assigned Gastroenterology Provider 10/15/23 documented as of this encounter
--- OUTSIDE RECORDS SUMMARY | 2023-10-25 14:11 | XMS_ITS | Referral Summary ---
Author Name Unknown Organization [place] Address [address] [facility] [place] [address] Care Team Providers Care Fish Smoker Name Role Phone Monty Musa MD Primary Care Provider Jatinder Tang Unavailable Unavailable Dayanara Bee MD Unavailable [phone] Min Lange MD Unavailable Unavailable Mralo Madsen MD Unavailable [phone] Mel Buckley RN Unavailable [phone] Douglas Cadet MD Unavailable Rosalba Pendleton APRN FOOD SUPERVISOR Unavaila ble Rosalba Pendleton APRN FOOD SUPERVISOR Unavaila ble Marlo Madsen MD Unavailable [phone] Abby Vasquez MD Unavailable Airam Hodges PA-C Unavailable [phone] Zain Quintana MD Unavailable [phone] Latricia Pettit PA-C Unavailable [phone] Encounters Date Type Department Care Team Description 10/25/2023 Telephone [facility] Neurology Clinic [place] 9[address] [facility] [address] 3rd [place] [address] Rosalba Pendleton APRN FOOD SUPERVISOR Prior Authorization 10/21/2023 Travel 10/21/2023 11:30 AM HAND CLERICAL VERIFIER Therapy Visit [facility] Rehabilitation Services [facility] [address] [place] [address] [place] [address] Zain Quintana MD Wild, Abigail, PT Slow transit constipation 10/18/2023 Travel 10/18/2023 PRE VISIT [facility] Colon [facility]al Surgery [facility] [address] [address] Airam Hodges PA-C Previsit 10/13/2023 MyC Medical Advice [facility] Gastroenterology Clinic [address] [phone] Vivian Carter 10/01/2023 Travel 10/01/2023 9:30 AM HAND CLERICAL VERIFIER Ancillary Procedure [facility] [address] [facility] [address] [place] [address] Zain Quintana MD Slow transit constipation 09/29/2023 Travel 09/29/2023 9:30 AM HAND CLERICAL VERIFIER Ancillary Procedure [facility] [address] [facility] [address] [place] [address] Zain Quintana MD Slow transit constipation 09/27/2023 Travel 09/27/2023 9:30 AM HAND CLERICAL VERIFIER Ancillary Procedure [facility] [address] [facility] [address] [place] [address] Zain Quintana MD Slow transit constipation 09/26/2023 Refill [facility] Gastroenterology Clinic [address] [phone] Abby Vasquez MD Medication Refill ( Trulance Oral Tablet 3 MG) 09/21/2023 Travel 09/21/2023 10:00 AM HAND CLERICAL VERIFIER Office Visit [facility] Colon and Rectal Surgery Clinic [address] [place] [address] Zain Quintana MD Slow transit constipation (Primary Dx); Constipation, unspecified constipation type 09/19/2023 Travel 09/17/2023 Travel 09/17/2023 1:30 PM HAND CLERICAL VERIFIER Lab [facility] [address] [place] [address] Restless legs syndrome (RLS); Low iron 09/15/2023 11:00 AM HAND CLERICAL VERIFIER Office Visit [facility] Sleep Centers [address] [place] [phone] Rosalba Pendleton APRN CNP Goltz, Bennett Ezra, PA-C Delayed sleep phase syndrome (Primary Dx); History of sleep apnea; Morning headache; Insomnia, unspecified type; Restless legs syndrome (RLS); Low iron 09/13/2023 Travel from Last 3 Months Allergies Active Allergy Reactions Criticality Noted Date Comments Amoxicillin-Pot Clavulanate GI Disturbance Medium 04/2017 Hydrocodone-Acetaminophen 01/14/2022 Medications Medication Sig Dispensed Refills Start Date End Date Status order for DMEIndications:Dy sautonomia (H),Heat intolerance Equipment being ordered: Micro climate cooling vest 1 kit 0 5 Active hydrOXYzine (ATARAX) 50 MG tablet Take 50 mg by mouth daily 0 2 Active clonazePAM (KLONOPIN) 0.5 MG tablet Take 0.5 mg by mouth daily 0 1 Active prochlorperazine (COMPAZINE) 5 MG tabletIndications :Intractable 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 Take 1-2 tablets (5-10 mg) by mouth every 6 hours as needed for nausea or vomiting 20 tablet 3 2 Active DULoxetine (CYMBALTA) 30 MG capsule Take 30 mg by mouth 2 times daily 0 2 Active AIMOVIG 140 MG/ML injectionIndicati ons:Intractable 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 Inject 1 mL (140 mg) Subcutaneous every 30 days 1 mL 11 3 Active ondansetron (ZOFRAN ODT) 4 MG ODT tab Take 1 tablet by mouth every 8 hours as needed 0 1 Active ZOLMitriptan (ZOMIG-ZMT) 5 MG ODTIndications:Mi graine without aura and without status migrainosus, not intractable Take 1 tablet (5 mg) by mouth at onset of headache for migraine May repeat in 2 hours. Max 2 tablets/24 hours. 18 tablet 11 3 Active midodrine (PROAMATINE) 5 MG tabletIndications :Syncope and collapse,Palpitat ions,Vasovagal syncope Take 2 tablets (10mg) in the morning, and 1 tablet (5mg) in the afternoon. Do not take within 4 hours lying down 270 tablet 1 3 Active fludrocortisone (FLORINEF) 0.1 MG tabletIndications :Vasovagal syncope Take 2 tablets (0.2 mg) by mouth daily 180 tablet 3 3 Active Zavegepant HCl 10 MG/ACT SOLNIndications:M igraine without aura and without status migrainosus, not intractable Centre 10 mg in nostril at onset of headache (migraine. 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 Take 1 tablet (500 mg) by mouth daily for 180 days 120 tablet 1 3 10/20/19 24 plecanatide (TRULANCE) 3 MG tabletIndications :Irritable bowel syndrome with constipation Take 1 tablet (3 mg) by mouth daily 30 tablet 1 3 09/29/19 24 Discontinued Active Problems Problem Noted Date Diagnosed Date [...] Sex Assigned at Female 10/31/2021 7:59 AM HAND CLERICAL VERIFIER Gender Identity Female 10/31/2021 7:59 AM HAND CLERICAL VERIFIER Sexual Orientation Straight 10/31/2021 7: 59 AM HAND CLERICAL VERIFIER Last Filed Vital Signs Vital Sign Reading Time Taken Comments Blood Pressure 108/78 09/21/2023 9:49 AM HAND CLERICAL VERIFIER Pulse 85 09/21/2023 9:49 AM HAND CLERICAL VERIFIER Temperature 36.3 ??C (97.3 ??F) 07/09/2023 12:06 PM C DT Respiratory Rate 18 07/09/2023 6:46 PM CDT Oxygen Saturation 100% 09/21/2023 9:49 AM HAND CLERICAL VERIFIER Inhaled Oxygen Concentration - - Weight 80.1 kg (176 lb 9.6 oz) 09/15/2023 11:00 AM HAND CLERICAL VERIFIER Height 167.6 cm (5' 5.98) 09/15/2023 11:[address] Body Mass Index 28.52 09/15/2023 11:00 AM HAND CLERICAL VERIFIER Plan of Treatment Upcoming Encounters Date Type Department Care Team (Late st Contact Info) Description 10/26/2023 1:00 PM HAND CLERICAL VERIFIER Virtual Visit [facility] Gastroenterology Clinic [address] [phone] Latricia Pettit PA-C [address] [place] [address] 10/28/2023 10:50 AM HAND CLERICAL VERIFIER Therapy Visit [address] [address] Zain Quintana MD [address] [place] [address] 213455 Lainey Simon, PT [address] [place] [address] 11/04/2023 10:50 AM HAND CLERICAL VERIFIER Therapy Visit [address] [address] Zain Quintana MD [address] [place] [address] Lainey Simon, PT [address] [place] [address] 11/17/2023 11:00 AM HAND CLERICAL VERIFIER Therapy Visit [address] [address] Lainey Simon, PT [address] [place] [address] 11/24/2023 10:40 AM CDT Office Visit [facility] Gastroenterology Clinic [address] [phone] Abby Vasquez MD 909 [place] [address] 11/24/2023 1:30 PM CDT Therapy Visit [address] [address] Lainey Simon, PT [address] [place] [address] 12/01/2023 10:20 AM CDT Therapy Visit [address] [address] Lainey Simon, PT [address] [place] [address] 12/08/2023 10:20 AM CDT Therapy Visit [address] [address] Lainey Simon, PT [address] [place] [address] 320317 01/13/2024 10:00 AM CDT Virtual Visit [facility] Neurology Clinic [address] 3rd [place] [phone] Rosalba Pendleton, MAXIMILIANO [address] AF4080IV [place] [address] 01/20/2024 8:00 PM CDT Therapy Visit [facility] Sleep [address] [phone] 03/14/2024 10:30 AM CDT Office Visit [facility] Sleep [address] [address] Abhishek Acevedo PA-C [address] [facility] 103 [place] [address] 03/21/2024 11:30 AM CDT Office Visit [facility] Colon and Rectal Surgery Clinic [address] [place] 025729 [facility] 4th [place] [address] Zain Quintana MD 500 [place], [place] 0[address]415 Procedures Procedure Name Priority Date/Time Associated Diagnosis Comments XR ABDOMEN 1 VIEW Routine 10/01/2023 8:5 8 AM HAND CLERICAL VERIFIER Slow transit constipation XR ABDOMEN 1 VIEW Routine 09/29/2023 8:5 7 AM HAND CLERICAL VERIFIER Slow transit constipation XR ABDOMEN 1 VIEW Routine 09/27/2023 9:0 2 AM HAND CLERICAL VERIFIER Slow transit constipation FERRITIN Routine 09/17/2023 1:20 PM HAND CLERICAL VERIFIER Restless legs syndrome (RLS) Low iron from Last 3 Months Results * XR Abdomen 1 View (10/01/2023 8:58 AM HAND CLERICAL VERIFIER) Only the most recent of3 resultswithin the time period is included. Anatomical Region Laterality Modality Abdomen/Pelvis Computed Radiogr aphy Impressions 10/01/2023 9:33 AM HAND CLERICAL VERIFIER IMPRESSION: Two Sitz markers remain in the rectum. Remainder no longer present. Small to moderate amount of stool. ??Nonobstructed bowel gas pattern. JATINDER ARREOLA MD Narrative 10/01/2023 9:33 AM HAND CLERICAL VERIFIER ABDOMEN ONE VIEW ??10/01/2023 8:58 AM HISTORY: Sitz Marker Study. Slow transit constipation. COMPARISON: September 29, 2023 Procedure Note Jatinder Arreola MD - 10/01/2023 ABDOMEN ONE VIEW 10/01/2023 8:58 AM HISTORY: Sitz Marker Study. Slow transit constipation. COMPARISON: September 29, 2023 IMPRESSION: Two Sitz markers remain in the rectum. Remainder no longer present. Small to moderate amount of stool. Nonobstructed bowel gas pattern. JATINDER ARREOLA MD aZin Quintana MD IMG DIAGNOSTIC IMAGI NG ORDERABLES * Ferritin (09/17/2023 1:20 PM HAND CLERICAL VERIFIER) Ferritin 40 6 - 175 ng/mL 09/17/2023 9:34 PM HAND CLERICAL VERIFIER [facility] Blood BLOOD SPECIMEN / Unknown Venipuncture / Unknown 09/17/2023 1:20 PM HAND CLERICAL VERIFIER 09/17/2023 1:20 PM HAND CLERICAL VERIFIER Abhishek Acevedo PA-C LAB - BLOOD ORDE MARQUEZ [facility] [address] [facility], [address] [address], [facility] [phone] from Last 3 Months Care Teams Fish Smoker Relationship Specialty Start Date End Date Monty Musa MD [facility] [address] [place] [id number] PCP - General Family Medicine 08/13/21 Jatinder Tang [facility] [address] [place] [address] [facility] Practice 08/13/21 Dayanara Bee MD [address] [place] [address] Pediatrics 12/26/14 Min Lange MD [address] [address] Neurology 03/30/16 Marlo Madsen MD [address] [place] [address] 420085 Cardiology 10/27/16 Mel Buckley, DIAZ Nurse Coordinator Physical Medicine and Rehabilitation 12/02/16 Douglas Cadet MD [address] [place] [address] 929685 Gastroenterology 08/13/21 Rosalba Pendleton APRN FOOD SUPERVISOR [address] [place] [address] 472855 Nurse Practitioner Neurology 09/05/21 Rosalba Pendleton APRN FOOD SUPERVISOR [address] [place] [address] [phone] Assigned Neuroscience Provider 11/09/21 Marlo Madsen MD [address] [place] [address] 774555 Assigned Heart and Vascular Provider 03/14/22 Abby Vasquez MD 909 [place] [address] Gastroenterology 07/16/22 Airam Hodges PA-C 500 [place] [address] Physician Psych Assistant Surgery 07/19/23 Zain Quintana MD 500 [place], [place] 351935 Assigned Surgical Provider 10/07/23 Latricia Pettit PA-C [address] [place] [address] Assigned Gastroenterology Provider 10/15/23
--- OUTSIDE RECORDS SUMMARY | 2023-10-25 14:11 | XMS_ITS | Encounter Summary ---
Author Name Unknown Organization [place] Address [address] [facility] [place] [address] Care Team Providers Care Bead Forming Machine Operator Name Role Phone Monty Musa MD Primary Care Provider Alfonso Tang Unavailable Unavailable Dayanara Bee MD Unavailable [phone] Min Lange MD Unavailable Unavailable Marlo Madsen MD Unavailable [phone] Mel Buckley RN Unavailable [phone] Douglas Cadet MD Unavailable Rosalba Pendleton APRN MARINE DIVER Unavaila ble Rosalba Pendleton APRN MARINE DIVER Unavaila ble Marlo Madsen MD Unavailable [phone] Abby Vasquez MD Unavailable Airam Hodges PA-C Unavailable [phone] Zain Quintana MD Unavailable [phone] Latricia Pettit PA-C Unavailable [phone] Encounter Details Date Type Department Care Team (Late st Contact Info) Description 10/13/2023 [facility] [place] [address] [phone] Vivian Carter Social History Tobacco Use Types [...] Sex Assigned at Female 10/31/2021 7:59 AM BEAMER OPERATOR Gender Identity Female 10/31/2021 7:59 AM BEAMER OPERATOR Sexual Orientation Straight 10/31/2021 7: 59 AM BEAMER OPERATOR documented as of this encounter Plan of Treatment Upcoming Encounters Date Type Department Care Team (Late st Contact Info) Description 10/26/2023 1:00 PM BEAMER OPERATOR Virtual Visit [facility] [address] [phone] Latricia Pettit PA-C [address] [place] [address] 10/28/2023 10:50 AM BEAMER OPERATOR Therapy Visit [address] [phone] Zain Quintana MD [address] [place] [address] 697655 Lainey Simon PT [address] [place] [address] 11/04/2023 10:50 AM BEAMER OPERATOR Therapy Visit [address] [phone] Zain Quintana MD [address] [place] [address] 423305 Lainey Simon PT [address] [place] [address] 11/17/2023 11:00 AM BEAMER OPERATOR Therapy Visit [address] [address] Lainey Simon, PT [address] [place] [address] 11/24/2023 10:40 AM CDT Office Visit [facility] [address] [place] [phone] Abby Vasquez MD [address] [place] [address] 11/24/2023 1:30 PM CDT Therapy Visit [address] [address] Lainey Simon, PT [address] [place] [address] 12/01/2023 10:20 AM CDT Therapy Visit [address] [address] Lainey Simon, PT [address] [place] [address] 12/08/2023 10:20 AM CDT Therapy Visit [address] [address] Lainey Simon, PT [address] [place] [address] 01/13/2024 10:00 AM CDT Virtual Visit [facility] [place] [address] [place] [address] 3rd [place] [phone] Rosalba Pendleton, MAXIMILIANO MARINE DIVER [address] [place] [address] [id number] [place] [address] 01/20/2024 8:00 PM CDT Therapy Visit [facility] [address] [phone] 03/14/2024 10:30 AM CDT Office Visit [facility] [address] [address] Abhishek Acevedo PA-C [address] [address] 03/21/2024 11:30 AM CDT Office Visit [facility] [address] [place] [phone] Zain Quintana MD [address] [place] [address] 536865 documented as of this encounter Visit Diagnoses Not on filedocumented in this encounter Additional Health Concerns Assessment Noted Time PHQ-9 Depression Total Score: 12 023 8:53 AM CDT documented as of this encounter Care Teams Bead Forming Machine Operator Relationship Specialty Start Date End Date Monty Musa MD [facility] [address] [place] [address] PCP - General Family Medicine 08/13/21 Alfonso Tang [facility] [address] [place] [address] Family Practice 08/13/21 Dayanara Bee MD [address] [place] [address] 75 [place], [place] [phone] Pediatrics 12/26/14 Min Lange MD [address] [facility] 75 [place] [address] Neurology 03/30/16 Marlo Madsen MD [address] [place] [address] Cardiology 10/27/16 Mel Buckley, DIAZ Nurse Coordinator Physical Medicine and Rehabilitation 12/02/16 Douglas Cadet MD [address] [place] [address] 592505 Gastroenterology 08/13/21 Rosalba Pendleton APRN MARINE DIVER [address] [place] [address] [phone] Nurse Practitioner Neurology 09/05/21 Rosalba Pendleton APRN MARINE DIVER [address] [place] [address] [phone] Assigned Neuroscience Provider 11/09/21 Marlo Madsen MD [address] [place] [address] [phone] Assigned Heart and Vascular Provider 03/14/22 Abby Vasquez MD [address] [place] [address] 648735 Gastroenterology 07/16/22 Airam Hodges PA-C [address] [place] [address] 320055 Physician Sandwich Wrapper Surgery 07/19/23 Zain Quintana MD [address] [place] [address] Assigned Surgical Provider 10/07/23 Latricia Pettit PA-C [address] [place] [address] 135375 Assigned Gastroenterology Provider 10/15/23 documented as of this encounter
--- OUTSIDE RECORDS SUMMARY | 2023-10-25 14:11 | XMS_ITS | Encounter Summary ---
Author Name Unknown Organization [place] Address [address] [place] [address] Care Team Providers Care Associate Loan Officer Name Role Phone Monty Musa MD Primary Care Provider Alfonso Tang Unavailable Unavailable Dayanara Bee MD Unavailable [phone] Min Lange MD Unavailable Unavailable Marlo Madesn MD Unavailable [phone] Mel Buckley RN Unavailable [phone] Douglas Cadet MD Unavailable Rosalba Pendleton APRN GUSSET FOLDER Unavaila ble Roslaba Pendleton APRN GUSSET FOLDER Unavaila ble Marlo Madsen MD Unavailable [phone] bAby Vasquez MD Unavailable Airam Hodges PA-C Unavailable [phone] Zain Quintana MD Unavailable [phone] Latricia Pettit PA-C Unavailable [phone] Reason for Visit * Reason Onset Date Comments Prior Authorization 10/25/2023 Encounter Details Date Type Department Care Team (Late st Contact Info) Description 10/25/[address] [facility]rology [facility] [address] 3rd [place] [phone] Rosalba Pendleton APRN GUSSET FOLDER [address] [place] [address] [id number] [place] [address] Prior Authorization Social History Tobacco Use Types Packs/Day Years [...] Sex Assigned at Female 10/31/2021 7:59 AM MUCKER COFFERDAM Gender Identity Female 10/31/2021 7:59 AM MUCKER COFFERDAM Sexual Orientation Straight 10/31/2021 7: 59 AM MUCKER COFFERDAM documented as of this encounter Miscellaneous Notes * Telephone Encounter - Joy Presley CMA - 10/25/2023 8:47 AM CST Prior Authorization Retail Medication Request NEW Insurance Medication/Dose: AIMOVIG 140 MG/ML injection ICD code (if different than what is on RX): Previously Tried and Failed: Botox, zonisamide, atrovastatin, sumatriptan, eletriptan, rizatriptan, zolmitriptan, topiramate, gabapentin, Rationale: migraine Has been using Aimovig Insurance Name: MEDICARE FOR HB SUPPLEMENT Secondary Ins:MEDICA PRIME SOLUTION ID:[id number] Pharmacy Information (if different than what is on RX) Name: Phone: [facility] documented in this encounter Plan of Treatment Upcoming Encounters Date Type Department Care Team (Late st Contact Info) Description 10/26/2023 1:00 PM MUCKER COFFERDAM Virtual Visit [facility]ology [facility] [address] 4th [place] [phone] Latricia Pettit PA-C [address] [place] [address] 10/28/2023 10:50 AM MUCKER COFFERDAM Therapy Visit [address] [address] Zain Quintana MD [address] [place] [address] Lainey Simon, PT [address] [place] [address] 11/04/2023 10:50 AM MUCKER COFFERDAM Therapy Visit [address] [address] Zain Quintana MD [address] [place] [address] Lainey Simon, PT [address] [place] [address] 11/17/2023 11:00 AM MUCKER COFFERDAM Therapy Visit [address] [address] Lainey Simon, PT [address] [place] [address] 11/24/2023 10:40 AM CDT Office Visit [facility] [address] 4th [place] [phone] Abby Vasquez MD [address] [place] [address] 11/24/2023 1:30 PM CDT Therapy Visit [place] [address] [place] [address] Alfred Lainey, PT [address] [place] [address] 12/01/2023 10:20 AM CDT Therapy Visit [address] [address] Alfred Lainey, PT [address] [place] [address] 12/08/2023 10:20 AM CDT Therapy Visit [address] [address] Lainey Simon, PT [address] [place] [address] [phone] 01/13/2024 10:00 AM CDT Virtual Visit [facility] Neurology [facility] [address] [phone] Rosalba Pendleton APRN [address] [place] [address] 01/20/2024 8:00 PM CDT Therapy Visit [facility] [address] [place] [address] SYDNIE Patino [phone] 03/14/2024 10:30 AM CDT Office Visit [facility] [address] [place] [address] SYDN[place] Patino [address] Abhishek Acevedo PA-C [address] [facility] [address] [place] [address] 03/21/2024 11:30 AM CDT Office Visit [facility] [address] 4th [place] [phone] Zain Quintana MD [address] [place], [place] [phone] documented as of this encounter Visit Diagnoses Not on filedocumented in this encounter Additional Health Concerns Assessment Noted Time PHQ-9 Depression Total Score: 12 023 8:53 AM CDT documented as of this encounter Care Teams Associate Loan Officer Relationship Specialty Start Date End Date Monty Musa MD [facility] [address] [place] [address] PCP - General Family Medicine 08/13/21 Alfonso Tang [facility] [address] [place] [address] Family Practice 08/13/21 Dayanara Bee MD [address] [place] [address] 75 [place] [address] Pediatrics 12/26/14 Min Lange MD [address] [place] [address] 75 [place] [address] Neurology 03/30/16 Marlo Madsen MD [address] [place] [address] 508 [place] [address] Cardiology 10/27/16 Mel Buckley, RN Nurse Coordinator Physical Medicine and Rehabilitation 12/02/16 Douglas Cadet MD [address] [place] [address] 764625 Gastroenterology 08/13/21 Rosalba Pendleton APRN GUSSET FOLDER [address] [place], [place] [id number] [place] [address] Nurse Practitioner Neurology 09/05/21 Rosalba Pendleton APRN GUSSET FOLDER [address] [place] [address] [id number] [place] [address] Assigned Neuroscience Provider 11/09/21 Marlo Madsen MD [address] [place] [address] [facility] [address] [place] [address] Assigned Heart and Vascular Provider 03/14/22 Abby Vasquez MD [address] [place] [address] Gastroenterology 07/16/22 Airam Hodges PA-C [address] [place] [address] Physician Yellow Pages Space Salesperson Surgery 07/19/23 Zain Quintana MD [address] [place] [address] 407955 Assigned Surgical Provider 10/07/23 Latricia Pettit PA-C [address] [place] [address] Assigned Gastroenterology Provider 10/15/23 documented as of this encounter
--- OUTSIDE RECORDS SUMMARY | 2023-10-25 14:11 | XMS_ITS | Encounter Summary ---
Author Name Unknown Organization [place] Address [facility] [place] [address] Care Team Providers Care Circuit Board Drafter Name Role Phone Monty Musa MD Primary Care Provider [phone] Alfonso Tang Unavailable Unavailable Dayanara Bee MD Unavailable [phone] Min Lange MD Unavailable Unavailable Marlo Madsen MD Unavailable [phone] Mel Buckley RN Unavailable [phone] Douglas Cadet MD Unavailable [phone] Rosalba Pendleton APRN PUPPET ENGINEER Unavaila ble Rosalba Pendleton APRN PUPPET ENGINEER Unavaila ble Marlo Madsen MD Unavailable [phone] Abby Vasquez MD Unavailable Airam Hodges PA-C Unavailable [phone] Zain Quintana MD Unavailable [phone] Latricia Pettit PA-C Unavailable [phone] Reason for Visit * Rehab Therapy Integrated Services (Routine: Next available opening) - Authorized Specialty Diagnoses / Procedures Referred By Contgeovany t Referred To Contact Diagnoses Slow transit constipation [address] [address] Referral ID Status Reason Start Date Expiration Date V isits Requested Visits Authorized [id number] Authorized 09/13/2023 09/12/2024 365 365 Encounter Details Date Type Department Care Team (Latest Contact Info) Description 10/21/2023 11:30 AM SUPERVISOR FRONT Therapy Visit [facility] [place] [address] [facility] [address] [place], [place] [id number] Zain Quintana MD [address] [place] [address] [place] [address] [place] [address] Slow transit constipation Social History Tobacco Use [...] Assigned at Female 10/31/2021 7:59 AM SUPERVISOR FRONT Gender Identity Female 10/31/2021 7:59 AM SUPERVISOR FRONT Sexual Orientation Straight 10/31/2021 7: 59 AM SUPERVISOR FRONT documented as of this encounter Progress Notes * Lainey Simon, PT - 10/21/2023 11:30 AM CST PHYSICAL THERAPY EVALUATION Type of Visit: Evaluation See electronic medical record for Abuse and Falls Screening details. Subjective Presenting condition or subjective complaint: Chronic Constipation and difficulty having Bowel movements Date of onset: 08/02/23 Relevant medical history: Concussions; Depression; Migraines or headaches; Sleep disorder like apnea Dates & types of surgery: Breast Reduction 2012, left knee arthroscopy 2019, exploratory abdominal 2005, gallbladder removal 2018 Prior diagnostic imaging/testing results: Other Pelvic Floor testing Prior therapy history for the same diagnosis, illness or injury: Yes Pelvic Floor therapy for 7 weeks November-January 2023 Living Environment Social support: With family members Type of home: Townhome Stairs to enter the home: Yes 2 Is there a railing: No Ramp: No Stairs inside the home: Yes 12 Is there a railing: Yes Help at home: None Equipment owned: Employment: No Hobbies/Interests: Patient goals for therapy: Would like to be able to increase bowel movements and feel that i have had a complete movement Objective PELVIC EVALUATION ADDITIONAL HISTORY: Sex assigned at : Female Gender identity: Female Pronouns: She/Her Hers Bladder History: Feels bladder filling: Yes Triggers for feeling of inability to wait to go to the bathroom: No How long can you wait to urinate: Hours Gets up at night to urinate: Yes 1 Can stop the flow of urine when urinating: Yes Volume of urine usually released: Large Other issues: Bladder infections Number of bladder infections in last 12 months: 2 Fluid intake per day: 80-100oz 48-64oz 0 Medications taken for bladder: No Activities causing urine leak: Sneeze Amount of urine typically leaked: Drops Pads used to help with leaking: No Bowel History: Frequency of bowel movement: 2x per week Consistency of stool: Hard Ignores the urge to defecate: No Other bowel issues: Pain when pooping; Straining to have bowel movement Length of time spent trying to have a bowel movement: 10-15 minutes Sexual Function History: Sexual orientation: Straight Sexually active: Yes Lubrication used: No No Pelvic pain: Initial penetration (rectal or vaginal); Deep penetration (rectal or vaginal); Pelvic exams; Rectal exams; Use of tampon Pain or difficulty with orgasms/erection/ejaculation: No State of menopause: Perimenopause (have not gone through menopause yet) Hormone medications: Yes Progesterone for 10 days every 3 months Are you currently : No, Number of previous pregnancies: 0, Number of deliveries: 0, Have you been diagnosed with pelvic prolapse or abdominal separation: No, Do you get regular exercise: Yes,I do this type of exercise: Walking/jogging/strength training, Have you tried pelvic floor strengthening exercises for 4 weeks: Yes, Do you have any history of trauma that is relevant to your care that you???d like to share: Yes, I???d like to discuss it with my provider in person. Discussed reason for referral regarding pelvic health needs and external/internal pelvic floor muscle examination with patient/guardian. Opportunity provided to ask questions and verbal consent for assessment and intervention was given. POSTURE: WFL LUMBAR SCREEN: AROM WFL HIP SCREEN: Strength: WFL PELVIC/SI SCREEN: WFL BREATHING SYMMETRY: Rib cage flaring, Decreased rib cage mobility PELVIC EXAM External Visual Inspection: At rest: Normal With voluntary pelvic floor contraction: Absent Relaxation of PFM: Partial/delayed relaxation, Non-relaxation Internal Digital Palpation: Per Vagina: Tenderness Myofascial Resistance to Palpation: Firm, Taut Digital Muscle Performance: P (Power): 4/5 E (Endurance): 20 seconds Relaxation Post-Contraction: Partial/delayed relaxation, Non-relaxation Able to bear down w/ LA while boogie ischiocavernosis and bulbocavernosis Per Rectum: Tenderness Myofascial Resistance to Palpation: Firm Digital Muscle Performance: P (Power): 4/5 Relaxation Post-Contraction: Normal ABDOMINAL ASSESSMENT Diastasis Rectus Abdominis (MARYLOU): MARYLOU presence: No Fascial Tension/Restriction: WNL Assessment & Plan CLINICAL IMPRESSIONS Medical Diagnosis: Slow transit constipation Treatment Diagnosis: pelvic floor muscle dysfunction Impression/Assessment: Patient is a 33 year old female with constipation and dyspareunia complaints. The following significant findings have been identified: Pain, Decreased ROM/flexibility, Decreased joint mobility, Impaired muscle performance, and Decreased activity tolerance. 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 Clinical Decision Making (Complexity): Clinical Presentation: Stable/Uncomplicated Clinical Presentation Rationale: based on medical and personal factors listed in PT evaluation Clinical Decision Making (Complexity): Low complexity PLAN OF CARE Treatment Interventions: Interventions: Gait Training, Manual Therapy, Neuromuscular Re-education, Therapeutic Activity, Therapeutic Exercise, Self-Care/Home Management Curator Of Education Goals PT Goal 1 Goal Identifier: Goal 1 Goal Description: The patient will report having 0/10 pain when voiding in order to promote continence, skin activity, and free movement in the community Rationale: to maximize safety and independence with performance of ADLs and functional tasks;to maximize safety and independence with self cares;to maximize safety and independence within the community Target Date: 04/20/24 PT Goal 2 Goal Identifier: Goal 2 Goal Description: The patient will be able to verbalize and demonstrate 2 effective pain managementstrategies in order to promote independence with self- care and full activity participation. Rationale: to maximize safety and independence with self cares Target Date: 04/20/24 PT Goal 3 Goal Identifier: Goal 3 Goal Description: The patient will consistently have 4 or more soft formed bowel movements per weekwith the feeling of having emptied completely. Rationale: to maximize safety and independence with performance of ADLs and functional tasks;to maximize safety and independence within the home;to maximize safety and independence within the community;to maximize safety and independence with transportation;to maximize safety and independence with self cares Target Date: 04/20/24 Frequency of Treatment: 1 x per week for 6-8 weeks, then 1 x every other week Duration of Treatment: 6 months Education Assessment: Learner/Method: Patient;Pictures/Video;No Barriers to Learning;Demonstration;Listening;Reading Risks and benefits of evaluation/treatment have been explained. Patient/Family/caregiver agrees with Plan of Care. Evaluation Time: PT Yves Velásquez Minutes (31473): 10 Signing Clinician: JAY Werner [facility] OUTPATIENT PHYSICAL THERAPY PLAN OF TREATMENT FOR OUTPATIENT REHABILITATION Patient's Last Name, First Name, Latricia Tatum Date of : 1990 Provider's Name [facility] On[facility] Date: 08/02/23 Start of Care Date: 10/21/23 Medical Diagnosis: Slow transit constipation PT Treatment Diagnosis: pelvic floor muscle dysfunction Plan of Treatment Frequency/Duration: 1 x per week for 6-8 weeks, then 1 x every other week/ 6 months Certification date from 10/21/23 to 04/20/24 See note for plan of treatment details and functional goals Lainey Simon PT I CERTIFY THE NEED FOR THESE SERVICES FURNISHED UNDER THIS PLAN OF TREATMENT AND WHILE UNDER MY CARE (Physician attestation of this document indicates review and certification of the therapy plan). Referring Provider: Zain Quintana Initial Assessment See [facility] Evaluation- Start of Care Date: 10/21/23 RVISOR FRONT Associated attestation - Zain Quintana MD - 10/21/2023 3:41 PM SUPERVISOR FRONT Physician Attestation I agree with the information in this note. Zain Quintana MD documented in this encounter Plan of Treatment Upcoming Encounters Date Type Department Care Team (Late st Contact Info) Description 10/26/2023 1:00 PM SUPERVISOR FRONT Virtual Visit [facility] [address] [address] Latricia Pettit PA-C [address] [place] [address] 10/28/2023 10:50 AM SUPERVISOR FRONT Therapy Visit [address] [address] Zain Quintana MD [address] [place] [address] Lainey Simon, PT [address] [place] [address] 11/04/2023 10:50 AM SUPERVISOR FRONT Therapy Visit [address] [address] Zain Quintana MD [address] [place] [address] Lainey Simon, PT [address] [place] [address] 11/17/2023 11:00 AM SUPERVISOR FRONT Therapy Visit [address] [address] Lainey Simon, PT [address] [place] [address] 11/24/2023 10:40 AM CDT Office Visit [facility] [address] [place] [phone] Abby Vasquez MD [address] [place] [address] 11/24/2023 1:30 PM CDT Therapy Visit [address] [address] Lainey Simon, PT [address] [place] [address] 12/01/2023 10:20 AM CDT Therapy Visit [address] [address] Lainey Simon, PT [address] [place] [phone] 12/08/2023 10:20 AM CDT Therapy Visit [address] [address] Lainey Simon, PT [address] [place] [address] 01/13/2024 10:00 AM CDT Virtual Visit [facility] Neurology [facility] [address] [place] [phone] Rosalba Pendleton APRN [address] [id number] [place] [address] 01/20/2024 8:00 PM CDT Therapy Visit [facility] Sleep [address] [address] 03/14/2024 10:30 AM CDT Office Visit [facility] Sleep [address] [place] [phone] Abhishek Acevedo PA-C [address] [facility] 103 [place] [address] 03/21/2024 11:30 AM CDT Office Visit [facility] [place] [address] [facility] [address] 4th [place] [phone] Zain Quintana MD [address] [place] [phone] documented as of this encounter Visit Diagnoses Diagnosis Slow transit constipation documented in this encounter Additional Health Concerns Assessment Noted Time PHQ-9 Depression Total Score: 12 023 8:53 AM CDT documented as of this encounter Care Teams Circuit Board Drafter Relationship Specialty Start Date End Date Monty Musa MD [facility] [address] [place] [address] PCP - General Family Medicine 08/13/21 Alfonso Tang [facility] [address] [place] [address] Family Practice 08/13/21 Dayanara Bee MD [address] [facility] [address] [place] [address] Pediatrics 12/26/14 Min Lange MD [address] [facility] [address] [place] [address] Neurology 03/30/16 Marlo Madsen MD [address] [facility] [address] [place] [address] Cardiology 10/27/16 Mel Buckley, RN Nurse Coordinator Physical Medicine and Rehabilitation 12/02/16 Douglas Cadet MD [address] [place] [address] Gastroenterology 08/13/21 Rosalba Pendleton APRN PUPPET ENGINEER [address] [place] [address] Nurse Practitioner Neurology 09/05/21 Rosalba Pendleton APRN PUPPET ENGINEER [address] [place] [address] Assigned Neuroscience Provider 11/09/21 Marlo Madsen MD [address] [place] [address] Assigned Heart and Vascular Provider 03/14/22 Abby Vasquez MD [address] [place] [address] Gastroenterology 07/16/22 Airam Hodges PA-C 500 [place] [address] Physician [employer] Bi Consultant Surgery 07/19/23 Zain Quintana MD [address] [place] [address] Assigned Surgical Provider 10/07/23 Latricia Pettit PA-C [address] [place] [address] Assigned Gastroenterology Provider 10/15/23 documented as of this encounter
--- OUTSIDE RECORDS SUMMARY | 2023-10-25 14:11 | XMS_ITS | Clinical Summary ---
Author Name Unknown Organization [place] Address [address] [facility] [place] [address] Care Team Providers Care Diffusion Furnace Operator Name Role Phone Monty Musa MD Primary Care Provider Jatinder Tang Unavailable Unavailable Dayanara Bee MD Unavailable [phone] Min aLnge MD Unavailable Unavailable Marlo Madsen MD Unavailable [phone] Mel Buckley RN Unavailable [phone] Douglas Cadet MD Unavailable Rosalba Pendleton APRN SHELLFISH WEIGHER Unavaila ble Rosalba Pendleton APRN SHELLFISH WEIGHER Unavaila ble Marlo Madsen MD Unavailable [phone] Abby Vasquez MD Unavailable Airam Hodges PA-C Unavailable [phone] Zain Quintana MD Unavailable [phone] Latricia Pettit PA-C Unavailable [phone] Allergies Active Allergy Reactions Criticality Noted Date Comments Amoxicillin-Pot Clavulanate GI Disturbance Medium /0 04/2017 Hydrocodone-Acetaminophen 01/14/2022 Medications Medication Sig Dispensed [...] aura and without status migrainosus, not intractable [place] 10 mg in nostril at onset of headache (migraine. 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 Take 1 tablet [...] Team Description 10/25/2023 Telephone [facility] Neurology [facility] [address] [place] [address] Rosalba Pendleton APRN SHELLFISH WEIGHER Prior Authorization 10/21/2023 11:30 AM JOINTER SUBMARINE CABLE Therapy Visit [facility] Rehabilitation Services [facility] [address] [facility] [address] [place], [place] [address] Zain Quintana MD Wild, Abigail, PT Slow transit constipation 10/21/2023 Travel 10/18/2023 Travel 10/18/2023 PRE VISIT [facility]al [facility] [address] [place] [address] Airam Hodges PA-C Previsit 10/13/2023 MyC Medical Advice [facility] [address] [place] [address] Vivian Carter 10/01/2023 9:30 AM JOINTER SUBMARINE CABLE Ancillary Procedure [facility] [address] [place] [address] [place] [address] Zain Quintana MD Slow transit constipation 10/01/2023 Travel 09/29/2023 9:30 AM JOINTER SUBMARINE CABLE Ancillary Procedure [facility] [address] [facility] [address] [place] [address] Zain Quintana MD Slow transit constipation 09/29/2023 Travel 09/27/2023 9:30 AM JOINTER SUBMARINE CABLE Ancillary Procedure [facility] [address] [facility] [address] [place] [address] Zain Quintana MD Slow transit constipation 09/27/2023 Travel 09/26/2023 Refill [facility] [address] [address] Abby Vasquez MD Medication Refill ( Trulance Oral Tablet 3 MG) 09/21/2023 10:00 AM JOINTER SUBMARINE CABLE Office Visit [facility] [address] [address] Zain Quintana MD Slow transit constipation (Primary Dx); Constipation, unspecified constipation type 09/21/2023 Travel 09/19/2023 Travel 09/17/2023 1:30 PM JOINTER SUBMARINE CABLE Lab [facility] [address] [place] [phone] Restless legs syndrome (RLS); Low iron 09/17/2023 Travel 09/15/2023 11:00 AM JOINTER SUBMARINE CABLE Office Visit [facility] [address] [address] Rosalba Pendleton APRN CNP Goltz, Bennett Ezra, PA-C Delayed sleep phase syndrome (Primary Dx); History of sleep apnea; Morning headache; Insomnia, unspecified type; Restless legs syndrome (RLS); Low iron 09/13/2023 Travel from Last 3 Months Immunizations Name [...] Sex Assigned at Female 10/31/2021 7:59 AM JOINTER SUBMARINE CABLE Gender Identity Female 10/31/2021 7:59 AM JOINTER SUBMARINE CABLE Sexual Orientation Straight 10/31/2021 7: 59 AM JOINTER SUBMARINE CABLE Last Filed Vital Signs Vital Sign Reading Time Taken Comments Blood Pressure 108/78 09/21/2023 9:49 AM JOINTER SUBMARINE CABLE Pulse 85 09/21/2023 9:49 AM JOINTER SUBMARINE CABLE Temperature 36.3 ??C (97.3 ??F) 07/09/2023 12:06 PM C DT Respiratory Rate 18 07/09/2023 6:46 PM CDT Oxygen Saturation 100% 09/21/2023 9:49 AM JOINTER SUBMARINE CABLE Inhaled Oxygen Concentration - - Weight 80.1 kg (176 lb 9.6 oz) 09/15/2023 11:00 AM JOINTER SUBMARINE CABLE Height 167.6 cm (5' 5.98) 09/15/2023 11:[address] Body Mass Index 28.52 09/15/2023 11:00 AM JOINTER SUBMARINE CABLE Plan of Treatment Upcoming Encounters Date Type Department Care Team (Late st Contact Info) Description 10/26/2023 1:00 PM JOINTER SUBMARINE CABLE Virtual Visit [facility] [address] [phone] Latricia Pettit PA-C [address] [place] [address] 10/28/2023 10:50 AM JOINTER SUBMARINE CABLE Therapy Visit [address] [address] Zain Quintana MD [address] [place] [address] Lainey Simon, PT [address] [place] [address] 11/04/2023 10:50 AM JOINTER SUBMARINE CABLE Therapy Visit [address] [address] Zain Quintana MD [address] [place] [address] Lainey Simon, PT [address] [place] [address] 11/17/2023 11:00 AM JOINTER SUBMARINE CABLE Therapy Visit [address] [address] Lainey Simon, PT [address] [place] [address] 11/24/2023 10:40 AM CDT Office Visit [facility] [address] [place] [phone] Abby Vasquez MD [address] [place] [address] 11/24/2023 1:30 PM CDT Therapy Visit [address] [address] Lainey Simon, PT [address] [place] [address] 12/01/2023 10:20 AM CDT Therapy Visit [address] [address] Lainey Simon, PT [address] [place] [address] 12/08/2023 10:20 AM CDT Therapy Visit [address] [address] Lainey Simon, PT [address] [place] [address] 01/13/2024 10:00 AM CDT Virtual Visit [facility] Neurology Clinic [address] [place] [phone] Rosalba Pendleton, SLUBBER RUNNER SHELLFISH WEIGHER [address] [facility] [id number] [address] 01/20/2024 8:00 PM CDT Therapy Visit [facility] [address] [facility] [address] [place] [phone] 03/14/2024 10:30 AM CDT Office Visit [facility] [address] [facility] [address] [place] [phone] Abhishek Acevedo PA-C [address] [facility] 103 [place] [id number] 03/21/2024 11:30 AM CDT Office Visit [facility] [address] 4th [place] [phone] Zain Quintana MD [address] [place] [address] Health Maintenance Due Date Last Done Comments [...] 04/02/2023, Additional history exists PAP 08/20/2026 08/20/2023, 04/2023, 11/24/2021, Additional history exists COLONOSCOPY 10/16/2026 10/16/2021, 11/2021, 12/10/2016, Additional history exists COLORECTAL CANCER [...] 1 VIEW Routine 10/01/2023 8:5 8 AM JOINTER SUBMARINE CABLE Slow transit constipation XR ABDOMEN 1 VIEW Routine 09/29/2023 8:5 7 AM JOINTER SUBMARINE CABLE Slow transit constipation XR ABDOMEN 1 VIEW Routine 09/27/2023 9:0 2 AM JOINTER SUBMARINE CABLE Slow transit constipation FERRITIN Routine 09/17/2023 1:20 PM JOINTER SUBMARINE CABLE Restless legs syndrome (RLS) Low iron from Last 3 Months Results * XR Abdomen 1 View (10/01/2023 8:58 AM JOINTER SUBMARINE CABLE) Only the most recent of3 resultswithin the time period is included. Anatomical Region Laterality Modality Abdomen/Pelvis Computed Radiogr aphy Impressions 10/01/2023 9:33 AM JOINTER SUBMARINE CABLE IMPRESSION: Two Sitz markers remain in the rectum. Remainder no longer present. Small to moderate amount of stool. ??Nonobstructed bowel gas pattern. JATINDER ARREOLA MD Narrative 10/01/2023 9:33 AM JOINTER SUBMARINE CABLE ABDOMEN ONE VIEW ??10/01/2023 8:58 AM HISTORY: [...] Nonobstructed bowel gas pattern. JATINDER ARREOLA MD Zain Quintana MD IMG DIAGNOSTIC IMAGI NG ORDERABLES * Ferritin (09/17/2023 1:20 PM JOINTER SUBMARINE CABLE) Ferritin 40 6 - 175 ng/mL 09/17/2023 9:34 PM JOINTER SUBMARINE CABLE [facility] Blood BLOOD SPECIMEN / Unknown Venipuncture / Unknown 09/17/2023 1:20 PM JOINTER SUBMARINE CABLE 09/17/2023 1:20 PM JOINTER SUBMARINE CABLE Abhishek Acevedo PA-C LAB - BLOOD SOTO ZAYAS [facility] [address] [facility], [address] [address], [facility] [phone] from Last 3 Months Care Teams Diffusion Furnace Operator Relationship Specialty Start Date End Date Monty Musa MD [facility] [address] [place] [address] PCP - General Family Medicine 08/13/21 Jatinder Tang [facility] [address] [place] [address] Family Practice 08/13/21 Dayanara Bee MD [address] [facility] 75 [place], [place] [address] Pediatrics 12/26/14 Min Lange MD [address] [facility] 75 [place] [address] Neurology 03/30/16 Marlo Madsen MD [address] [facility] 508 [place], [place] [address] Cardiology 10/27/16 Mel Buckley, RN Nurse Coordinator Physical Medicine and Rehabilitation 12/02/16 Douglas Cadet MD [address] [place] [address] Gastroenterology 08/13/21 Rosalba Pendleton APRN SHELLFISH WEIGHER [address] [address] Nurse Practitioner Neurology 09/05/21 Rosalba Pendleton APRN SHELLFISH WEIGHER [address] [address] Assigned Neuroscience Provider 11/09/21 Marlo Madsen MD [address] [facility] 508 [place] [address] Assigned Heart and Vascular Provider 03/14/22 Abby Vasquez MD [address] [place] [address] Gastroenterology 07/16/22 Airam Hodges PA-C 500 [place] [address] Physician Library Consultant Surgery 07/19/23 Zain Quintana MD 500 [place] [address] Assigned Surgical Provider 10/07/23 Latricia Pettit PA-C [address] [place] [address] Assigned Gastroenterology Provider 10/15/23
--- OUTSIDE RECORDS SUMMARY | 2023-10-25 14:12 | XMS_ITS | Encounter Summary ---
Author Name Unknown Organization [place] Address [address] [facility] [place] [address] Care Team Providers Care Travel Administrator Name Role Phone Monty Musa MD Primary Care Provider [phone] Alfonso Tang Unavailable Unavailable Dayanara Bee MD Unavailable [phone] Min Lange MD Unavailable Unavailable Marlo Madsen MD Unavailable [phone] Mel Buckley RN Unavailable [phone] Douglas Cadet MD Unavailable Rosalba Pendleton APRN NET SOLUTIONS ARCHITECT Unavaila ble Rosalba Pendleton APRN NET SOLUTIONS ARCHITECT Unavaila ble Marlo Madsen MD Unavailable [phone] Abby Vasquez MD Unavailable Abby Vasquez MD Unavailable Airam Hodges PA-C Unavailable [phone] Reason for Visit * Reason Comments Medication Refill Trulance Oral Tablet 3 MG Encounter Details Date Type Department Care Team (Late st Contact Info) Description 09/26/2023 [facility] [place] [facility] [address] [place] [address] [phone] Abby Vasquez MD [address] [place] [address] [phone] Medication Refill ( Trulance Oral Tablet 3 MG) Social History Tobacco Use Types Packs/Day Years [...] Sex Assigned at Female 10/31/2021 7:59 AM VOLUNTEER SERVICES MANAGER Gender Identity Female 10/31/2021 7:59 AM VOLUNTEER SERVICES MANAGER Sexual Orientation Straight 10/31/2021 7: 59 AM VOLUNTEER SERVICES MANAGER documented as of this encounter Miscellaneous Notes * Telephone Encounter - Teresa Colon RN - 09/29/2023 8:27 AM VOLUNTEER SERVICES MANAGER Trulance Oral Tablet 3 MG Last Written Prescription Date: 07/14/23 Last Fill Quantity: 30, # refills: 1 Last Office Visit : 07/14/23 Future Office visit: 10/26/23 RF per protocol. NTEER SERVICES MANAGER documented in this encounter Plan of Treatment Upcoming Encounters Date Type Department Care Team (Late st Contact Info) Description 10/26/2023 1:00 PM VOLUNTEER SERVICES MANAGER Virtual Visit [facility] Gastroenterology Clinic [address] [phone] Latricia Pettit PA-C [address] [place] [address] 020885 10/28/2023 10:50 AM VOLUNTEER SERVICES MANAGER Therapy Visit [facility] Rehabilitation Services [facility] [address] [facility] [address] [place], [place] 329177 Zain Quintana MD [address] [place] [address] Lainey Simon, PT [address] [place] [address] 9[address] 11/04/2023 10:50 AM VOLUNTEER SERVICES MANAGER Therapy Visit [address] [address] Zain Quintana MD [address] [place] [address] Lainey Simon, PT [address] [place] [address] 21496 11/17/2023 11:00 AM VOLUNTEER SERVICES MANAGER Therapy Visit [address] [address] Lainey Simon, PT [address] [place] [address] 88113 11/24/2023 10:40 AM CDT Office Visit [facility] Gastroenterology Clinic [address] [phone] Abby Vasquez MD [address] [place] [address] 060[address] 11/24/2023 1:30 PM CDT Therapy Visit [address] [address] Lainey Simon, PT [address] [place] [address] 98603 12/01/2023 10:20 AM CDT Therapy Visit [address] [address] [place] [address] [place] [address] 12/08/2023 10:20 AM CDT Therapy Visit [facility] Rehabilitation Services [facility] [address] [facility] [address] [place] [address] [place] [address] [place] [address] 01/13/2024 10:00 AM CDT Virtual Visit [facility] Neurology Clinic [address] 3rd [place] [phone] Rosalba Pendleton, MAXIMILIANO [address] [id number] [place], [place] [address]68[address] 01/20/2024 8:00 PM CDT Therapy Visit [facility] Sleep [address] [phone] 03/14/2024 10:30 AM CDT Office Visit [address] [phone] Abhisehk Acevedo PA-C [address] [phone] 03/21/2024 11:30 AM CDT Office Visit [facility] Colon and Rectal Surgery Clinic [address] 4th [place] [address] Zain Quintana MD [address] [place] [address] 754975 documented as of this encounter Visit Diagnoses Diagnosis Irritable bowel syndrome with constipation Irritable bowel syndrome documented in this encounter Additional Health Concerns Assessment Noted Time PHQ-9 Depression Total Score: 12 023 8:53 AM CDT documented as of this encounter Care Teams Travel Administrator Relationship Specialty Start Date End Date Monty Musa MD [facility] [address] [place] [address] PCP - General Family Medicine 08/13/21 Alfonso Tang [facility] [address] [place] [address] Family Practice 08/13/21 Dayanara Bee MD 420 [facility] 75 [place], [place] 165605 Pediatrics 12/26/14 Min Lange MD 420 [facility] 75 [place] [address] Neurology 03/30/16 Marlo Madsen MD [address] [place] [address] 508 [place] [address] Cardiology 10/27/16 Mel Buckley, RN Nurse Coordinator Physical Medicine and Rehabilitation 12/02/16 Douglas Cadet MD [address] [place] [address] 42983 Gastroenterology 08/13/21 Rosalba Pendleton APRN NET SOLUTIONS ARCHITECT [address] [place], [place] [address]J [place], [place] [address] Nurse Practitioner Neurology 09/05/21 Rosalba Pendleton APRN NET SOLUTIONS ARCHITECT [address] [place], [place] [address]J [place], [place] 581175 Assigned Neuroscience Provider 2/27/22 Marlo Madsen MD [address] [place] [address] 508 [place], [place] 938285 Assigned Heart and Vascular Provider 03/14/22 Abby Vasquez MD [address] [place] [address] 294495 Gastroenterology 07/16/22 Abby Vasquez MD [address] [place] [address] 996965 Assigned PCP 09/26/22 10/06/23 Airam Hodges PA-C [address] [place] [address] 044925 Physician Citrix Architect Surgery 07/19/23 documented as of this encounter
--- OUTSIDE RECORDS SUMMARY | 2023-10-25 14:12 | XMS_ITS | Encounter Summary ---
Author Name Unknown Organization [place] Address [address] [facility] [place] [address] Care Team Providers Care Welfare Officer Name Role Phone Monty Musa MD Primary Care Provider [phone] Alfonso Tang Unavailable Unavailable Dayanara Bee MD Unavailable [phone] Min Lange MD Unavailable Unavailable Marlo Madsen MD Unavailable [phone] Mel Buckley RN Unavailable [phone] Douglas Cadet MD Unavailable [phone] Rosalba Pendleton APRN WINDLASSER Unavaila ble Rosalba Pendleton APRN WINDLASSER Unavaila ble Marlo Madsen MD Unavailable [phone] Abby Vasquez MD Unavailable Abby Vasquez MD Unavailable Airam Hodges PA-C Unavailable [phone] Encounter Details Date Type Department Care [...] Sex Assigned at Female 10/31/2021 7:59 AM POLICY OFFICER Gender Identity Female 10/31/2021 7:59 AM POLICY OFFICER Sexual Orientation Straight 10/31/2021 7: 59 AM POLICY OFFICER documented as of this encounter Plan of Treatment Upcoming Encounters Date Type Department Care Team (Late st Contact Info) Description 10/26/2023 1:00 PM POLICY OFFICER Virtual Visit [facility] Gastroenterology Clinic [address] [place] [phone] Latricia Pettit PA-C [address] [place] [address] 10/28/2023 10:50 AM POLICY OFFICER Therapy Visit [address] [address] Zain Quintana MD [address] [place] [address] Lainey Simon PT [address] [place] [address] 11/04/2023 10:50 AM POLICY OFFICER Therapy Visit [address] [address] Zain Quintana MD [address] [place] [address] 274435 Lainey Simon PT [address] [place] [address] 11/17/2023 11:00 AM POLICY OFFICER Therapy Visit [address] [address] [place] [address] [place] [address] 11/24/2023 10:40 AM CDT Office Visit [facility] Gastroenterology Clinic [address] 4th [place] [phone] Abby Vasquez MD [address] [place] [address] 11/24/2023 1:30 PM CDT Therapy Visit [address] [address] Lainey Simon, PT [address] [place] [address] 12/01/2023 10:20 AM CDT Therapy Visit [address] [address] Lainey Simon, PT [address] [place] [address] 12/08/2023 10:20 AM CDT Therapy Visit [address] [address] Lainey Simon, PT [address] [place] [address] 139[address] 01/13/2024 10:00 AM CDT Virtual Visit [facility] Neurology Clinic [address] [place] [phone] Rosalba Pendleton, MAXIMILIANO WINDLASSER 909 [facility] [id number] [place] [address] 01/20/2024 8:00 PM CDT Therapy Visit [facility] Sleep [facility] [address] [address] [place] [phone] 03/14/2024 10:30 AM CDT Office Visit [facility] Sleep [facility] 6363 [facility] 103 [place] [phone] Abhishek Acevedo PA-C 6363 [facility] 103 [place] [address] 03/21/2024 11:30 AM CDT Office Visit [facility] Colon and Rectal Surgery Clinic [address] [place] [phone] Zain Quintana MD [address] [place] [address] [phone] documented as of this encounter Visit Diagnoses Not on filedocumented in this encounter Additional Health Concerns Assessment Noted Time PHQ-9 Depression Total Score: 12 023 8:53 AM CDT documented as of this encounter Care Teams Welfare Officer Relationship Specialty Start Date End Date Monty Musa MD [facility] [address] [place] [address] PCP - General Family Medicine 08/13/21 Alfonso Tang [facility] [address] [place] [address] Family Practice 08/13/21 Dayanara Bee MD [address] [address] Pediatrics 12/26/14 Min Lange MD 420 [facility] 75 [place] [address] Neurology 03/30/16 Marlo Madsen MD [address] [place] [address] Cardiology 10/27/16 Mel Buckley, RN Nurse Coordinator Physical Medicine and Rehabilitation 12/02/16 Douglas Cadet MD [address] [place] [address] Gastroenterology 08/13/21 Rosalba Pendleton APRN WINDLASSER [address] [place] [address] 349705 Nurse Practitioner Neurology 09/05/21 Rosalba Pendleton APRN WINDLASSER [address] [place] [address] 28676 Assigned Neuroscience Provider 11/09/21 Marlo Madsen MD [address] [place] [address] Assigned Heart and Vascular Provider 03/14/22 Abby Vasquez MD [address] [place] [address] 646065 Gastroenterology 07/16/22 Abby Vasquez MD [address] [place] [address] 924435 Assigned PCP 09/26/22 10/06/23 Airam Hodges PA-C [address] [place] [address] 067505 Physician Back Tender Fourdrinier Surgery 07/19/23 documented as of this encounter
--- OUTSIDE RECORDS SUMMARY | 2023-10-25 14:12 | XMS_ITS | Encounter Summary ---
Author Name Unknown Organization [facility] Address [address] [facility] [address] Care Team Providers Care Computer Video Game Designer Name Role Phone Monty Musa MD Primary Care Provider [phone] Alfonso Tang Unavailable Unavailable Dayanara Bee MD Unavailable [phone] Min Lange MD Unavailable Unavailable Marlo Madsen MD Unavailable [phone] Mel Buckley RN Unavailable [phone] Douglas Cadet MD Unavailable [phone] Rosalba Pendleton APRN THERAPIST Unavaila ble Rosalba Pendleton APRN THERAPIST Unavaila ble Marlo Madsen MD Unavailable [phone] Abby Vasquez MD Unavailable Abby Vasquez MD Unavailable Airam Hodges PA-C Unavailable [phone] Encounter Details Date Type Department Care [...] Sex Assigned at Female 10/31/2021 7:59 AM TELEGRAPHIC TYPEWRITER INSTALLER Gender Identity Female 10/31/2021 7:59 AM TELEGRAPHIC TYPEWRITER INSTALLER Sexual Orientation Straight 10/31/2021 7: 59 AM TELEGRAPHIC TYPEWRITER INSTALLER documented as of this encounter Plan of Treatment Upcoming Encounters Date Type Department Care Team (Late st Contact Info) Description 10/26/2023 1:00 PM TELEGRAPHIC TYPEWRITER INSTALLER Virtual Visit [facility] Gastroenterology Clinic [address] [place] [phone] Latricia Pettit PA-C [address] [place] [address] 10/28/2023 10:50 AM TELEGRAPHIC TYPEWRITER INSTALLER Therapy Visit [address] [address] Zain Quintana MD [address] [place] [address] Lainey Simon PT [address] [place] [address] 11/04/2023 10:50 AM TELEGRAPHIC TYPEWRITER INSTALLER Therapy Visit [address] [address] Zain Quintana MD [address] [place] [address] 879815 Lainey Simon PT [address] [place] [address] 11/17/2023 11:00 AM TELEGRAPHIC TYPEWRITER INSTALLER Therapy Visit [address] [address] [place] [address] [place] [address] 11/24/2023 10:40 AM CDT Office Visit [facility] Gastroenterology Clinic [address] 4th [place] [phone] Abby Vasquez MD [address] [place] [address] 11/24/2023 1:30 PM CDT Therapy Visit [address] [address] Lainey Simon, PT [address] [place] [address]88 12/01/2023 10:20 AM CDT Therapy Visit [address] [address] Lainey Simon, PT [address] [place] [address] 12/08/2023 10:20 AM CDT Therapy Visit [address] [address] Lainey Simon, PT [address] [place] [address] 01/13/2024 10:00 AM CDT Virtual Visit [facility] Neurology Clinic [address] [place] [phone] Rosalba Pendleton, MAXIMILIANO THERAPIST 909 [facility] [id number] [place] [address] 01/20/2024 8:00 PM CDT Therapy Visit [facility] Sleep [facility] [address] [address] [place] [phone] 03/14/2024 10:30 AM CDT Office Visit [facility] Sleep [facility] 6363 [facility] 103 [place] [phone] Abhishek Acevedo PA-C 6363 [facility] 103 [place] [address] 03/21/2024 11:30 AM CDT Office Visit [facility] Colon and Rectal Surgery Clinic [address] [place] [phone] Zain Quintana MD [address] [place] [address] [phone] documented as of this encounter Visit Diagnoses Not on filedocumented in this encounter Additional Health Concerns Assessment Noted Time PHQ-9 Depression Total Score: 12 023 8:53 AM CDT documented as of this encounter Care Teams Computer Video Game Designer Relationship Specialty Start Date End Date Monty Musa MD [facility] [address] [place] [address] PCP - General Family Medicine 08/13/21 Alfonso Tang [facility] [address] [place] [address] Family Practice 08/13/21 Dayanara Bee MD [address] [address] Pediatrics 12/26/14 Min Lange MD 420 [facility] 75 [place] [address] Neurology 03/30/16 Marlo Madsen MD [address] [place] [address] Cardiology 10/27/16 Mel Buckley, RN Nurse Coordinator Physical Medicine and Rehabilitation 12/02/16 Douglas Cadet MD [address] [place] [address] Gastroenterology 08/13/21 Rosalba Pendleton APRN THERAPIST [address] [place] [address] 285275 Nurse Practitioner Neurology 09/05/21 Rosalba Pendleton APRN THERAPIST [address] [place] [address]83 Assigned Neuroscience Provider 11/09/21 Marlo Madsen MD [address] [place] [address] 32776 Assigned Heart and Vascular Provider 03/14/22 Abby Vasquez MD [address] [place] [address] 760935 Gastroenterology 07/16/22 Abby Vasquez MD [address] [place] [address] 303095 Assigned PCP 09/26/22 10/06/23 Airam Hodges PA-C [address] [place] [address] 919935 Physician Airport Utility Worker Surgery 07/19/23 documented as of this encounter
--- OUTSIDE RECORDS SUMMARY | 2023-10-25 14:12 | XMS_ITS | Encounter Summary ---
Author Name Unknown Organization [place] Address [address] [facility] [place] [address] Care Team Providers Care Global Engineering Manager Name Role Phone Monty Musa MD Primary Care Provider Jatinder Tang Unavailable Unavailable Dayanara Bee MD Unavailable [phone] Min Lange MD Unavailable Unavailable Marlo Madsen MD Unavailable [phone] Mel Buckley RN Unavailable [phone] Douglas Cadet MD Unavailable Rosalba Pendleton APRN RAISER HELPER Unavaila ble Rosalba Pendleton APRN RAISER HELPER Unavaila ble Marlo Madsen MD Unavailable [phone] Abby Vasquez MD Unavailable Abby Vasquez MD Unavailable Airam Hodges PA-C Unavailable [phone] Reason for Visit * Diagnostic Imaging XR (Routine) - Pending Review Specialty Diagnoses / Procedures Referred By Contac t Referred To Contact Radiology. Diagnoses Slow transit constipation Procedures XR Abdomen 1 View Zain Quintana MD 500 [place] [address] Referral ID Status Reason Start Date Expiration Date V isits Requested Visits Authorized [id number] Pending Review 09/21/2023 09/20/2024 1 1 Encounter Details Date Type Department Care Team (Latest Contact Info) Description 10/01/2023 9:30 AM LAB AIDE Ancillary Procedure [facility] [address] [facility] [address] [place] [phone] Zain Quintana MD [address] [place], [place] [phone] Slow transit constipation Social History Tobacco Use [...] Sex Assigned at Female 10/31/2021 7:59 AM LAB AIDE Gender Identity Female 10/31/2021 7:59 AM LAB AIDE Sexual Orientation Straight 10/31/2021 7: 59 AM LAB AIDE documented as of this encounter Plan of Treatment Upcoming Encounters Date Type Department Care Team (Late st Contact Info) Description 10/26/2023 1:00 PM LAB AIDE Virtual Visit [facility] Gastroenterology Clinic [address] [place] [phone] Latricia Pettit PA-C [address] [place] [address] 10/28/2023 10:50 AM LAB AIDE Therapy Visit [facility] Rehabilitation Services [facility] [address] [employer] [address] [place] [address] Zain Quintana MD 500 [place], [place] 319805 Lainey Simon PT [address] [place] [address] 11/04/2023 10:50 AM LAB AIDE Therapy Visit [address] [address] Zain Quintana MD [address] [place] [address] Lainey Simon, PT [address] [place] [address] 617[address] 11/17/2023 11:00 AM LAB AIDE Therapy Visit [address] [address] Lainey Simon, PT [address] [place] [address] 11/24/2023 10:40 AM CDT Office Visit [facility] Gastroenterology Clinic [address] [phone] Abby Vasquez MD [address] [place] [address] 11/24/2023 1:30 PM CDT Therapy Visit [address] [address] Lainey Simon, PT [address] [place] [address] 12/01/2023 10:20 AM CDT Therapy Visit [address] [address] Lainey Simon, PT [address] [place] [address] 12/08/2023 10:20 AM CDT Therapy Visit [facility] [address] [employer] [address] [place] [address] [place] [address] [place] [address] 01/13/2024 10:00 AM CDT Virtual Visit [facility] Neurology Clinic [address] 3rd [place] [phone] Rosalba Pendleton APRN [address] [place] [address] 01/20/2024 8:00 PM CDT Therapy Visit [facility] Sleep [address] [phone] 03/14/2024 10:30 AM CDT Office Visit [address] [phone] Abhishek Acevedo PA-C 6363 [facility] 103 [place] [address] 03/21/2024 11:30 AM CDT Office Visit [facility] Colon and Rectal Surgery Clinic [address] 4th [place] [phone] Zain Quintana MD [address] [place] [address] 808245 documented as of this encounter Procedures Procedure Name Priority Date/Time Associated Diagnosis Comments XR ABDOMEN 1 VIEW Routine 10/01/2023 8:5 8 AM LAB AIDE Slow transit constipation documented in this encounter Results * XR Abdomen 1 View (10/01/2023 8:58 AM LAB AIDE) Anatomical Region Laterality Modality Abdomen/Pelvis Computed Radiogr aphy Impressions 10/01/2023 9:33 AM LAB AIDE IMPRESSION: Two Sitz markers remain in the rectum. Remainder no longer present. Small to moderate amount of stool. ??Nonobstructed bowel gas pattern. JATINDER ARREOLA MD Narrative 10/01/2023 9:33 AM LAB AIDE ABDOMEN ONE VIEW ??10/01/2023 8:58 AM HISTORY: [...] documented as of this encounter Care Teams Global Engineering Manager Relationship Specialty Start Date End Date Monty Musa MD [facility] [address] [place] [address] PCP - General Family Medicine 08/13/21 Jatinder Tang [facility] [address] [place] [address] Family Practice 08/13/21 Dayanara Bee MD [address] [place] [address] 456125 Pediatrics 12/26/14 Min Lange MD [address] [place] [address] [address] Neurology 03/30/16 Marlo Madsen MD [address] [place] [address] Cardiology 10/27/16 Mel Buckley, RN Nurse Coordinator Physical Medicine and Rehabilitation 12/02/16 Douglas Cadet MD [address] [place] [address] Gastroenterology 08/13/21 Rosalba Pendleton APRN RAISER HELPER [address] [place] [address] Nurse Practitioner Neurology 09/05/21 Rosalba Pendleton APRN RAISER HELPER [address] [place] [address] 38664 Assigned Neuroscience Provider 11/09/21 Marlo Madsen MD [address] [place] [address]52 Assigned Heart and Vascular Provider 03/14/22 Abby Vasquez MD [address] [place] [address] Gastroenterology 07/16/22 Abby Vasquez MD [address] [place] [address] 21556 Assigned PCP 09/26/22 10/06/23 Airam Hodges PA-C [address] [place] [address]365 Physician Telephone Sales Representative Surgery 07/19/23 documented as of this encounter
--- OUTSIDE RECORDS SUMMARY | 2023-10-25 14:12 | XMS_ITS | Encounter Summary ---
Author Name Unknown Organization [place] Address [address] [facility] [place] [address] Care Team Providers Care Automation Qa Lead Name Role Phone Monty Musa MD Primary Care Provider [phone] Alfonso Tang Unavailable Unavailable Dayanara Bee MD Unavailable [phone] Min Lange MD Unavailable Unavailable Marlo Madsen MD Unavailable [phone] Mel Buckley RN Unavailable [phone] Douglas Cadet MD Unavailable [phone] Rosalba Pendleton APRN PATIENT CLERICAL ASSISTANT Unavaila ble Rosalba Pendleton APRN PATIENT CLERICAL ASSISTANT Unavaila ble Marlo Madsen MD Unavailable [phone] Abby Vasquez MD Unavailable Abby Vasquez MD Unavailable Airam Hodges PA-C Unavailable [phone] Encounter Details Date Type Department Care [...] Sex Assigned at Female 10/31/2021 7:59 AM BLOCK CUTTER Gender Identity Female 10/31/2021 7:59 AM BLOCK CUTTER Sexual Orientation Straight 10/31/2021 7: 59 AM BLOCK CUTTER documented as of this encounter Plan of Treatment Upcoming Encounters Date Type Department Care Team (Late st Contact Info) Description 10/26/2023 1:00 PM BLOCK CUTTER Virtual Visit [facility] [address] [place] [phone] Latricia Pettit PA-C [address] [place] [address] 10/28/2023 10:50 AM BLOCK CUTTER Therapy Visit [address] [address] Zain Quintana MD [address] [place] [address] Lainey Simon PT [address] [place] [address] 11/04/2023 10:50 AM BLOCK CUTTER Therapy Visit [address] [address] Zain Quintana MD [address] [place] [address] 040315 Lainey Simon PT [address] [place] [address] 359[address] 11/17/2023 11:00 AM BLOCK CUTTER Therapy Visit [address] [address] [place] [address] [place] [address] 11/24/2023 10:40 AM CDT Office Visit [facility] [address] 4th [place] [phone] Abby Vasquez MD [address] [place] [address] 11/24/2023 1:30 PM CDT Therapy Visit [address] [address] Lainey Simon, PT [address] [place] [address] 12/01/2023 10:20 AM CDT Therapy Visit [address] [address] Lainey Simon, PT [address] [place] [address] 99[address] 12/08/2023 10:20 AM CDT Therapy Visit [address] [address] Lainey Simon, PT [address] [place] [address] 01/13/2024 10:00 AM CDT Virtual Visit [facility] [address] [place] [phone] Rosalba Pendleton, MAXIMILIANO PATIENT CLERICAL ASSISTANT [address] [facility] [id number] [place] [address] 01/20/2024 8:00 PM CDT Therapy Visit [facility] [address] [address] [place] [phone] 03/14/2024 10:30 AM CDT Office Visit [facility] Sleep [facility] 6363 [facility] [address] [place] [phone] Abhishek Acevedo PA-C 6363 [facility] [address] [place] [address] 03/21/2024 11:30 AM CDT Office Visit [facility]al [facility] [address] [place] [phone] Zain Quintana MD [address] [place] [address] [phone] documented as of this encounter Visit Diagnoses Not on filedocumented in this encounter Additional Health Concerns Assessment Noted Time PHQ-9 Depression Total Score: 12 023 8:53 AM CDT documented as of this encounter Care Teams Automation Qa Lead Relationship Specialty Start Date End Date Monty Musa MD [facility] [address] [place] [address] PCP - General Family Medicine 08/13/21 Alfonso Tang [facility] [address] [place] [address] Family Practice 08/13/21 Dayanara Bee MD [address] [address] Pediatrics 12/26/14 Min Lange MD 420 [facility] 75 [place] [address] Neurology 03/30/16 Marlo Madsen MD [address] [place] [address] Cardiology 10/27/16 Mel Buckley, RN Nurse Coordinator Physical Medicine and Rehabilitation 12/02/16 Douglas Cadet MD [address] [place] [address] Gastroenterology 08/13/21 Rosalba Pendleton APRN PATIENT CLERICAL ASSISTANT [address] [place] [address] [phone] Nurse Practitioner Neurology 09/05/21 Rosalba Pendleton APRN PATIENT CLERICAL ASSISTANT [address] [place] [address] 489[address] Assigned Neuroscience Provider 11/09/21 Marlo Madsen MD [address] [place] [address] Assigned Heart and Vascular Provider 03/14/22 Abby Vasquez MD [address] [place] [address] 994225 Gastroenterology 07/16/22 Abby Vasquez MD [address] [place] [address] [phone] Assigned PCP 09/26/22 10/06/23 Airam Hodges PA-C [address] [place] [address] [id number] Physician Pension Manager Surgery 07/19/23 documented as of this encounter
--- OUTSIDE RECORDS SUMMARY | 2023-10-25 14:12 | XMS_ITS | Encounter Summary ---
Author Name Unknown Organization [place] Address [address] [facility] [place] [address] Care Team Providers Care Beauty Director Name Role Phone Monty Musa MD Primary Care Provider Jatinder Tang Unavailable Unavailable Dayanara Bee MD Unavailable [phone] Min Lange MD Unavailable Unavailable Marlo Madsen MD Unavailable [phone] Mel Buckley RN Unavailable [phone] Douglas Cadet MD Unavailable Rosalba Pendleton APRN VICE PRESIDENT RISK MANAGEMENT Unavaila ble Rosalba Pendleton APRN VICE PRESIDENT RISK MANAGEMENT Unavaila ble Marlo Madsen MD Unavailable [phone] Abby Vasquez MD Unavailable Abby Vasquez MD Unavailable Airam Hodges PA-C Unavailable [phone] Reason for Referral * Diagnostic Imaging XR (Routine) - Pending Review Specialty Diagnoses / Procedures Referred By Contac t Referred To Contact Radiology. Diagnoses Slow transit constipation Procedures XR Abdomen 1 View Zain Quintana MD [address] [place] [address] Referral ID Status Reason Start Date Expiration Date V isits Requested Visits Authorized [id number] Pending Review 09/21/2023 09/20/2024 1 1 FLE BOARD OPERATOR * Diagnostic Imaging XR (Routine) - Pending Review Specialty Diagnoses / Procedures Referred By Contac t Referred To Contact Radiology. Diagnoses Slow transit constipation Procedures XR Abdomen 1 View Zain Quintana MD [address] [place] [address] Referral ID Status Reason Start Date Expiration Date V isits Requested Visits Authorized [id number] Pending Review 09/21/2023 09/20/2024 1 1 FLE BOARD OPERATOR * Diagnostic Imaging XR (Routine) - Pending Review Specialty Diagnoses / Procedures Referred By Contac t Referred To Contact Radiology. Diagnoses Slow transit constipation Procedures XR Abdomen 1 View Zain Quintana MD [address] [place] [address] Referral ID Status Reason Start Date Expiration Date V isits Requested Visits Authorized [id number] Pending Review 09/21/2023 09/20/2024 1 1 FLE BOARD OPERATOR * Rehab Therapy Integrated Services (Routine: Next available opening) - Authorized Specialty Diagnoses / Procedures Referred By Emily jenkins Referred To Contact Diagnoses Slow transit constipation [address] [address] Referral ID Status Reason Start Date Expiration Date V isits Requested Visits Authorized [id number] Authorized 09/13/2023 09/12/2024 365 365 Question Answer Preferred Location: [facility] Scheduling Instructions: If you have not heard from the scheduling office within 2 business days, please call [phone] for [place]an[place], for Debitos and [phone] for [place]. Course of Action Evaluation and Treatment Adult [...] office within 2 business days, please call [phone] for Joshua Chaves, for Jojo and [phone] for [place]. FLE BOARD OPERATOR Reason for Visit * Reason Comments Consult * Consultation (Routine: Next available opening) - Pending Review Specialty Diagnoses / Procedures Referred By Contac t Referred To Contact Colon and Rectal Surgery Diagnoses Constipation, unspecified constipation type Abby Vasquez MD [address] [place] [address] Referral ID Status Reason Start Date Expiration Date V isits Requested Visits Authorized [id number] Pending Review 07/14/2023 07/13/2024 1 1 Encounter Details Date Type Department Care Team (Late st Contact Info) Description 09/21/2023 10:00 AM SHUFFLE BOARD OPERATOR Office Visit [facility] Colon and [facility]al Surgery Clinic [address] [place] [address] Zain Quintana MD [address] [place] [address] [phone] Slow transit constipation (Primary Dx); Constipation, unspecified [...] Sex Assigned at Female 10/31/2021 7:59 AM SHUFFLE BOARD OPERATOR Gender Identity Female 10/31/2021 7:59 AM SHUFFLE BOARD OPERATOR Sexual Orientation Straight 10/31/2021 7: 59 AM SHUFFLE BOARD OPERATOR documented as of this encounter Last Filed Vital Signs Vital Sign Reading Time Taken Comments Blood Pressure 108/78 09/21/2023 9:49 AM SHUFFLE BOARD OPERATOR Pulse 85 09/21/2023 9:49 AM SHUFFLE BOARD OPERATOR Temperature - - Respiratory Rate - - Oxygen Saturation 100% 09/21/2023 9:49 AM SHUFFLE BOARD OPERATOR Inhaled Oxygen Concentration - - Weight - - Height - - Body Mass Index - - documented in this encounter Patient Instructions * Patient Instructions* Latricia Prasad RN - 09/21/2023 10:00 AM SHUFFLE BOARD OPERATOR Follow up: Go out front to schedule your sitz marker test You will get the sitz marker downstairs at the pharmacy PT- Physical Therapy will call you to schedule this Follow up after 6 months by calling [phone] FLE BOARD OPERATOR documented in this encounter Progress Notes * [...] 30 days 1 mL 11 barium sulfate ([employer] RADIOPAQUE MARKERS) CAPS capsule Take 1 capsule [...] tablet 3 Zavegepant HCl 10 MG/ACT SOLN [place] 10 mg in nostril at onset of [...] activities as noted above. Zain Quintana MD Network Operations Analyst Division of Colon and Rectal Surgery [facility] Referring Provider: Abby Vasquez MD [address] [place] [address] Primary Care Provider: Monty Musa FLE BOARD OPERATOR documented in this encounter Nursing Notes * Jose Ware EMT - 09/21/2023 10:00 AM CST Chief Complaint Patient presents with Consult Vitals: 09/21/23 0949 BP: 108/78 BP Location: Left arm Patient Position: Sitting Cuff Size: Adult Large Pulse: 85 SpO2: 100% There is no height or weight on file to calculate BMI. Jose Ware EMT-P FLE BOARD OPERATOR documented in this encounter Plan of Treatment Upcoming Encounters Date Type Department Care Team (Late st Contact Info) Description 10/26/2023 1:00 PM SHUFFLE BOARD OPERATOR Virtual Visit [facility] G[facility] [address] [phone] Latricia Pettit PA-C [address] [place] [address] 10/28/2023 10:50 AM SHUFFLE BOARD OPERATOR Therapy Visit [address] [address] Zain Quintana MD [address] [place] [address] [phone] Lainey Simon, PT [address] [place] [address] 11/04/2023 10:50 AM SHUFFLE BOARD OPERATOR Therapy Visit [address] [phone] Zain Quintana MD [address] [place] [address] Lainey Simon PT [address] [place] [address] 11/17/2023 11:00 AM SHUFFLE BOARD OPERATOR Therapy Visit [address] [address] Lainey Simon, PT [address] [place] [address] 11/24/2023 10:40 AM CDT Office Visit [facility] [address] [place] [phone] Abby Vasquez MD [address] [place] [address] 11/24/2023 1:30 PM CDT Therapy Visit [address] [address] Lainey Simon, PT [address] [place] [address] 12/01/2023 10:20 AM CDT Therapy Visit [address] [address] Lainey Simon, PT [address] [place] [address] 12/08/2023 10:20 AM CDT Therapy Visit [address] [address] Lainey Simon, PT [address] [place] [address] 01/13/2024 10:00 AM CDT Virtual Visit [facility] Neu[facility] [address] [place] [phone] Rosalba Pendleton APRN VICE PRESIDENT RISK MANAGEMENT [address] [place] [address] [id number] [place] [address] 01/20/2024 8:00 PM CDT Therapy Visit [facility] [address] [phone] 03/14/2024 10:30 AM CDT Office Visit [facility] [address] [address] Abhishek Acevedo PA-C [address] [phone] 03/21/2024 11:30 AM CDT Office Visit [facility] Clinic [address] [phone] Zain Quintana MD [address] [place] [address] [phone] Scheduled Referrals Name Type Priority Associated Diagnoses Orde r Schedule Physical Therapy Referral Referral Routine: Next available opening Slow transit constipation Expected: 09/21/2023 (Approximate), Expires: 09/21/2024 documented as of this encounter Results * XR Abdomen 1 View (10/01/2023 8:58 AM SHUFFLE BOARD OPERATOR) Anatomical Region Laterality Modality Abdomen/Pelvis Computed Radiogr aphy Impressions 10/01/2023 9:33 AM SHUFFLE BOARD OPERATOR IMPRESSION: Two Sitz markers remain in the rectum. Remainder no longer present. Small to moderate amount of stool. ??Nonobstructed bowel gas pattern. JATINDER ARREOLA MD Narrative 10/01/2023 9:33 AM SHUFFLE BOARD OPERATOR ABDOMEN ONE VIEW ??10/01/2023 8:58 AM HISTORY: [...] pattern. JATINDER ARREOLA MD Zain Quintana MD [facility] NG ORDERABLES * XR Abdomen 1 View (09/29/2023 8:57 AM SHUFFLE BOARD OPERATOR) Anatomical Region Laterality Modality Abdomen/Pelvis Computed Radiogr aphy Impressions 09/29/2023 3:13 PM SHUFFLE BOARD OPERATOR IMPRESSION: Nonobstructive bowel. Moderate stool. Sitz markers have moved to the distal colon since the prior exam. 24 Sitz markers are identified. BETH STONER MD SYSTEM ID: ??[id number] Narrative 09/29/2023 3:13 PM SHUFFLE BOARD OPERATOR ABDOMEN ONE VIEW September 29, 2023 8:57 AM HISTORY: Sitz Marker Study. Slow transit constipation. COMPARISON: KUB 09/27/2023. Procedure Note Beth Stoner MD - 09/29/2023 ABDOMEN ONE VIEW September 29, 2023 8:57 AM HISTORY: Sitz Marker Study. Slow transit constipation. COMPARISON: KUB 09/27/2023. IMPRESSION: Nonobstructive bowel. Moderate stool. Sitz markers have moved to the distal colon since the prior exam. 24 Sitz markers are identified. BETH STONER MD SYSTEM ID: [id number] Zain Quintana MD [facility] NG ORDERABLES * XR Abdomen 1 View (09/27/2023 9:02 AM SHUFFLE BOARD OPERATOR) Anatomical Region Laterality Modality Abdomen/Pelvis Computed Radiogr aphy Impressions 09/27/2023 10:27 AM SHUFFLE BOARD OPERATOR IMPRESSION: Sitz markers are seen along the ascending and transverse colon. Nonobstructive bowel gas pattern. Moderate to large stool burden is seen throughout the colon. No acute bony abnormality. NISSAR VAHORA, MD SYSTEM ID: ??[id number] Narrative 09/27/2023 10:27 AM SHUFFLE BOARD OPERATOR ABDOMEN TWO VIEWS 09/27/2023 9:02 AM [...] bony abnormality. DERREK VILLAGOMEZ MD SYSTEM ID: [id number] Zain Quintana MD IMG DIAGNOSTIC IMAGI NG ORDERABLES documented in this encounter Visit Diagnoses Diagnosis Slow transit constipation- Primary Constipation, unspecified constipation type Slow transit constipation Slow transit constipation Slow transit constipation documented in this encounter Additional Health Concerns Assessment Noted Time PHQ-9 Depression Total Score: 12 023 8:53 AM CDT documented as of this encounter Care Teams Beauty Director Relationship Specialty Start Date End Date Monty Musa MD [facility] [address] [place] [address] PCP - General Family Medicine 08/13/21 Jatinder Tang [facility] [address] [place] [address] Family Practice 08/13/21 Dayanara Bee MD 420 [facility] 75 [place] [address] Pediatrics 12/26/14 Min Lange MD 420 [facility] 75 [place] [address] Neurology 03/30/16 Marlo Madsen MD 420 [facility] 508 [place] [address] Cardiology 10/27/16 Mel Buckley, RN Nurse Coordinator Physical Medicine and Rehabilitation 12/02/16 Douglas Cadet MD [address] [place] [address] Gastroenterology 08/13/21 Rosalba Pendleton APRN VICE PRESIDENT RISK MANAGEMENT [address] [place] [address] Nurse Practitioner Neurology 09/05/21 Rosalba Pendleton APRN VICE PRESIDENT RISK MANAGEMENT [address] [place] [address] Assigned Neuroscience Provider 11/09/21 Marlo Madsen MD [address] [place] [address] 508 [place] [address] Assigned Heart and Vascular Provider 03/14/22 Abby Vasquez MD [address] [place] [address] 036605 Gastroenterology 07/16/22 Abby Vasquez MD [address] [place] [address] Assigned PCP 09/26/22 10/06/23 Airam Hodges PA-C [address] [place] [address] Physician Plisse Machine Operator Surgery 07/19/23 documented as of this encounter
--- OUTSIDE RECORDS SUMMARY | 2023-10-25 14:12 | XMS_ITS | Encounter Summary ---
Author Name Unknown Organization [place] Address [address] [place] [address] Care Team Providers Care Truck Packer Name Role Phone Monty Musa MD Primary Care Provider Alfonso Tang Unavailable Unavailable Dayanara Bee MD Unavailable [phone] Min Lange MD Unavailable Unavailable Marlo Madsen MD Unavailable [phone] Mel Buckley RN Unavailable [phone] Douglas Cadet MD Unavailable [phone] Rosalba Pendleton APRN MECHANICAL MAINTENANCE ENGINEER Unavaila ble Rosalba Pendletno APRN MECHANICAL MAINTENANCE ENGINEER Unavaila ble Marlo Madsen MD Unavailable [phone] Abby Vasquez MD Unavailable Abby Vasquez MD Unavailable Airam Hodges PA-C Unavailable [phone] Encounter Details Date Type Department Care [...] Sex Assigned at Female 10/31/2021 7:59 AM ZIPPER SETTER CHAINSTITCH Gender Identity Female 10/31/2021 7:59 AM ZIPPER SETTER CHAINSTITCH Sexual Orientation Straight 10/31/2021 7: 59 AM ZIPPER SETTER CHAINSTITCH documented as of this encounter Plan of Treatment Upcoming Encounters Date Type Department Care Team (Late st Contact Info) Description 10/26/2023 1:00 PM ZIPPER SETTER CHAINSTITCH Virtual Visit [facility] Gastroenterology Clinic [address] [place] [phone] Latricia Pettit PA-C [address] [place] [address] 10/28/2023 10:50 AM ZIPPER SETTER CHAINSTITCH Therapy Visit [address] [address] Zain Quintana MD [address] [place] [address] Lainey Simon PT [address] [place] [address] 11/04/2023 10:50 AM ZIPPER SETTER CHAINSTITCH Therapy Visit [address] [address] Zain Quintana MD [address] [place] [address] [phone] Lainey Simon PT [address] [place] [address] 11/17/2023 11:00 AM ZIPPER SETTER CHAINSTITCH Therapy Visit [address] [address] [place] [address] [place] [address] 11/24/2023 10:40 AM CDT Office Visit [facility] Gastroenterology Clinic [address] 4th [place] [phone] Abby Vasquez MD [address] [place] [address] 11/24/2023 1:30 PM CDT Therapy Visit [address] [address] Lainey Simon, PT [address] [place] [address] 12/01/2023 10:20 AM CDT Therapy Visit [address] [address] Lainey Simon, PT [address] [place] [address] 12/08/2023 10:20 AM CDT Therapy Visit [address] [address] Lainey Simon, PT [address] [place] [address] 01/13/2024 10:00 AM CDT Virtual Visit [facility] Neurology Clinic [address] [place] [phone] Rosalba Pendleton, MAXIMILIANO MECHANICAL MAINTENANCE ENGINEER [address] [facility] [id number] [place] [address] 01/20/2024 8:00 PM CDT Therapy Visit [facility] Sleep [facility] [address] [address] [place] [phone] 03/14/2024 10:30 AM CDT Office Visit [facility] Sleep [facility] 6363 [facility] [address] [place] [phone] Abhishek Acevedo PA-C 6363 [facility] [address] [place] [address] 03/21/2024 11:30 AM CDT Office Visit [facility] Colon and Rectal Surgery Clinic [address] [place] [phone] Zain Quintana MD [address] [place] [address] [phone] documented as of this encounter Visit Diagnoses Not on filedocumented in this encounter Additional Health Concerns Assessment Noted Time PHQ-9 Depression Total Score: 12 023 8:53 AM CDT documented as of this encounter Care Teams Truck Packer Relationship Specialty Start Date End Date Monty Musa MD [facility] [address] [place] [address] PCP - General Family Medicine 08/13/21 Alfonso Tang [facility] [address] [place] [address] Family Practice 08/13/21 Dayanara Bee MD [address] [address] Pediatrics 12/26/14 Min Lange MD 420 [facility] 75 [place] [address] Neurology 03/30/16 Marlo Madsen MD [address] [place] [address] Cardiology 10/27/16 Mel Buckley, RN Nurse Coordinator Physical Medicine and Rehabilitation 12/02/16 Douglas Cadet MD [address] [place] [address] Gastroenterology 08/13/21 Rosalba Pendleton APRN MECHANICAL MAINTENANCE ENGINEER [address] [place] [address] 774315 Nurse Practitioner Neurology 09/05/21 Rosalba Pendleton APRN MECHANICAL MAINTENANCE ENGINEER [address] [place] [address] Assigned Neuroscience Provider 11/09/21 Marlo Madsen MD [address] [place] [address] Assigned Heart and Vascular Provider 03/14/22 Abby Vasquez MD [address] [place] [address] [phone] Gastroenterology 07/16/22 Abby Vasquez MD [address] [place] [address] 486275 Assigned PCP 09/26/22 10/06/23 Airam Hodges PA-C [address] [place] [address] [phone] Physician Drum Builder Surgery 07/19/23 documented as of this encounter
--- OUTSIDE RECORDS SUMMARY | 2023-10-25 14:12 | XMS_ITS | Encounter Summary ---
Author Name Unknown Organization [place] Address [address] [place] [address] Care Team Providers Care Tubular Riveter Name Role Phone Monty Musa MD Primary Care Provider Alfonso Tang Unavailable Unavailable Dayanara Bee MD Unavailable [phone] Min Lange MD Unavailable Unavailable Marlo Madsen MD Unavailable [phone] Mel Buckley RN Unavailable [phone] Douglas Cadet MD Unavailable [phone] Rosalba Pendleton APRN CARTON PACKAGING MACHINE OPERATOR Unavaila ble Rosalba Pendleton APRN CARTON PACKAGING MACHINE OPERATOR Unavaila ble Marlo Madsen MD Unavailable [phone] Abby Vasquez MD Unavailable Abby Vasquez MD Unavailable Airam Hodges PA-C Unavailable [phone] Encounter Details Date Type Department Care Team (Latest Contact Info) Description 10/01/2023 Travel Social History Tobacco Use Types Packs/Day [...] Sex Assigned at Female 10/31/2021 7:59 AM BAND MANAGER Gender Identity Female 10/31/2021 7:59 AM BAND MANAGER Sexual Orientation Straight 10/31/2021 7: 59 AM BAND MANAGER documented as of this encounter Plan of Treatment Upcoming Encounters Date Type Department Care Team (Late st Contact Info) Description 10/26/2023 1:00 PM BAND MANAGER Virtual Visit [facility] [address] [place] [phone] Latricia Pettit PA-C [address] [place] [address] 10/28/2023 10:50 AM BAND MANAGER Therapy Visit [address] [address] Zain Quintana MD [address] [place] [address] Lainey Simon PT [address] [place] [address] 11/04/2023 10:50 AM BAND MANAGER Therapy Visit [address] [address] Zain Quintana MD [address] [place] [address] 554255 Lainey Simon PT [address] [place] [address] 11/17/2023 11:00 AM BAND MANAGER Therapy Visit [address] [address] [place] [address] [place] [address] 11/24/2023 10:40 AM CDT Office Visit [facility] [address] 4th [place] [phone] Abby Vasquez MD [address] [place] [address] 11/24/2023 1:30 PM CDT Therapy Visit [address] [address] Lainey Simon, PT [address] [place] [address] 613[address] 12/01/2023 10:20 AM CDT Therapy Visit [address] [address] Lainey Simon, PT [address] [place] [address] 12/08/2023 10:20 AM CDT Therapy Visit [address] [address] Lainey Simon, PT [address] [place] [address] 01/13/2024 10:00 AM CDT Virtual Visit [facility] Neurology [facility] [address] [place] [phone] Rosalba Pendleton, MAXIMILIANO CARTON PACKAGING MACHINE OPERATOR [address] [facility] [id number] [place] [address] 01/20/2024 8:00 PM CDT Therapy Visit [facility] Sleep [facility] [address] [address] [place] [phone] 03/14/2024 10:30 AM CDT Office Visit [facility] Sleep [facility] 6363 [facility] 103 [place] [phone] Abhishek Acevedo PA-C 6363 [facility] 103 [place] [address] 03/21/2024 11:30 AM CDT Office Visit [facility] [address] [place] [phone] Zain Quintana MD [address] [place] [address] [phone] documented as of this encounter Visit Diagnoses Not on filedocumented in this encounter Additional Health Concerns Assessment Noted Time PHQ-9 Depression Total Score: 12 023 8:53 AM CDT documented as of this encounter Care Teams Tubular Riveter Relationship Specialty Start Date End Date Monty Musa MD [facility] [address] [place] [address] PCP - General Family Medicine 08/13/21 Alfonso Tang [facility] [address] [place] [address] Family Practice 08/13/21 Dayanara Bee MD [address] [address] Pediatrics 12/26/14 Min Lange MD 420 [facility] 75 [place] [address] Neurology 03/30/16 Marlo Madsen MD [address] [place] [address] Cardiology 10/27/16 Mel Buckley, RN Nurse Coordinator Physical Medicine and Rehabilitation 12/02/16 Douglas Cadet MD [address] [place] [address] Gastroenterology 08/13/21 Rosalba Pendleton APRN CARTON PACKAGING MACHINE OPERATOR [address] [place] [address] 508865 Nurse Practitioner Neurology 09/05/21 Rosalba Pendleton APRN CARTON PACKAGING MACHINE OPERATOR [address] [place] [address] 23842 Assigned Neuroscience Provider 11/09/21 Marlo Madsen MD [address] [place] [address] 12555 Assigned Heart and Vascular Provider 03/14/22 Abby Vasquez MD [address] [place] [address] 992055 Gastroenterology 07/16/22 Abby Vasquez MD [address] [place] [address] 324135 Assigned PCP 09/26/22 10/06/23 Airam Hodges PA-C [address] [place] [address] 747915 Physician Fire Protection Engineer Surgery 07/19/23 documented as of this encounter
--- OUTSIDE RECORDS SUMMARY | 2023-10-25 14:12 | XMS_ITS | Encounter Summary ---
Author Name Unknown Organization [place] Address [address] [facility] [place] [address] Care Team Providers Care Spinner Frame Name Role Phone Monty Musa MD Primary Care Provider Alfonso Tang Unavailable Unavailable Dayanara Bee MD Unavailable [phone] Min Lange MD Unavailable Unavailable Marlo Madsen MD Unavailable [phone] Mel Buckley RN Unavailable [phone] Douglas Cadet MD Unavailable Rosalba Pendleton APRN OIL SPRAYING MACHINE OPERATOR Unavaila ble Rosalba Pendleton APRN OIL SPRAYING MACHINE OPERATOR Unavaila ble Marlo Madsen MD Unavailable [phone] Abby Vasquez MD Unavailable Abby Vasquez MD Unavailable Airam Hodges PA-C Unavailable [phone] Reason for Visit * Diagnostic Imaging XR (Routine) - Pending Review Specialty Diagnoses / Procedures Referred By Contac t Referred To Contact Radiology. Diagnoses Slow transit constipation Procedures XR Abdomen 1 View Zain Quintana MD [address] [place] [address] Referral ID Status Reason Start Date Expiration Date V isits Requested Visits Authorized [id number] Pending Review 09/21/2023 09/20/2024 1 1 Encounter Details Date Type Department Care Team (Latest Contact Info) Description 09/27/2023 9:30 AM MATTRESS STUFFER Ancillary Procedure [facility] [address] Count Includes [facility] [address] [place] [phone] Zain Quintana MD [address] [place], [place] [phone] Slow transit constipation Social History Tobacco Use [...] Sex Assigned at Female 10/31/2021 7:59 AM MATTRESS STUFFER Gender Identity Female 10/31/2021 7:59 AM MATTRESS STUFFER Sexual Orientation Straight 10/31/2021 7: 59 AM MATTRESS STUFFER documented as of this encounter Plan of Treatment Upcoming Encounters Date Type Department Care Team (Late st Contact Info) Description 10/26/2023 1:00 PM MATTRESS STUFFER Virtual Visit [facility] G[facility]ology Clinic [address] [place] [phone] Latricia Pettit PA-C [address] [place] [address] 10/28/2023 10:50 AM MATTRESS STUFFER Therapy Visit [facility] Rehabilitation Services [facility] [address] [facility] [address] [place], [place] 308[address] Zain Quintana MD [address] [place], [place] [address] Lainey Simon PT [address] [place] [address] 11/04/2023 10:50 AM MATTRESS STUFFER Therapy Visit [address] [address] Zain Quintana MD [address] [place] [address] Lainey Simon, PT [address] [place] [address] 29716 11/17/2023 11:00 AM MATTRESS STUFFER Therapy Visit [address] [address] Lainey Simon, PT [address] [place] [address] 9[address] 11/24/2023 10:40 AM CDT Office Visit [facility]ology [facility] [address] [phone] Abby Vasquez MD [address] [place] [address] 11/24/2023 1:30 PM CDT Therapy Visit [address] [address] Lainey Simon, PT [address] [place] [address] 12/01/2023 10:20 AM CDT Therapy Visit [address] [address] Lainey Simon, PT [address] [place] [address] 12/08/2023 10:20 AM CDT Therapy Visit [facility] Rehabilitation Services [facility] [address] [facility] [address] [place] [address] [place] [address] [place] [address] 01/13/2024 10:00 AM CDT Virtual Visit [facility] Neurology Clinic [address] 3rd [place] [phone] Rosalba Pendleton APRN [address] [place] [address] 01/20/2024 8:00 PM CDT Therapy Visit [facility] Sleep [address] [phone] 03/14/2024 10:30 AM CDT Office Visit [address] [phone] Abhishek Acevedo PA-C 6363 [facility] 103 [place] [address] 03/21/2024 11:30 AM CDT Office Visit [facility] Colon [facility]al Surgery Clinic [address] 4th [place] [phone] Zain Quintana MD [address] [place] [address] 036705 documented as of this encounter Procedures Procedure Name Priority Date/Time Associated Diagnosis Comments XR ABDOMEN 1 VIEW Routine 09/27/2023 9:0 2 AM MATTRESS STUFFER Slow transit constipation documented in this encounter Results * XR Abdomen 1 View (09/27/2023 9:02 AM MATTRESS STUFFER) Anatomical Region Laterality Modality Abdomen/Pelvis Computed Radiogr aphy Impressions 09/27/2023 10:27 AM MATTRESS STUFFER IMPRESSION: Sitz markers are seen along the ascending and transverse colon. Nonobstructive bowel gas pattern. Moderate to large stool burden is seen throughout the colon. No acute bony abnormality. DERREK VILLAGOMEZ MD SYSTEM ID: ??[id number] Narrative 09/27/2023 10:27 AM MATTRESS STUFFER ABDOMEN TWO VIEWS 09/27/2023 9:02 AM HISTORY: [...] bony abnormality. DERREK VILLAGOMEZ MD SYSTEM ID: [id number] Zain Quintana MD IMG DIAGNOSTIC IMAGI NG ORDERABLES documented in this encounter Visit Diagnoses Diagnosis Slow transit constipation documented in this encounter Additional Health Concerns Assessment Noted Time PHQ-9 Depression Total Score: 12 023 8:53 AM CDT documented as of this encounter Care Teams Spinner Frame Relationship Specialty Start Date End Date Monty Musa MD [facility] [address] [place] [address] PCP - General Family Medicine 08/13/21 Alfonso Tang [facility]ICAL [facility] [address] [place] [address] Family Practice 08/13/21 Dayanara Bee MD [address] [place] [address] 75 [place] [address] Pediatrics 12/26/14 Min Lnage MD 420 [facility] 75 [place] [address] Neurology 03/30/16 Marlo Madsen MD [address] [place], [place] [address] [place] [address] Cardiology 10/27/16 Mel Buckley, RN Nurse Coordinator Physical Medicine and Rehabilitation 12/02/16 Douglas Cadet MD [address] [place] [address] Gastroenterology 08/13/21 Rosalba Pendleton APRN OIL SPRAYING MACHINE OPERATOR [address] [place] [address] Nurse Practitioner Neurology 09/05/21 Rosalba Pendleton APRN OIL SPRAYING MACHINE OPERATOR [address] [place] [address] 020705 Assigned Neuroscience Provider 11/09/21 Marlo Madsen MD [address] [place] [address]338 Assigned Heart and Vascular Provider 03/14/22 Abby Vasquez MD [address] [place] [address] Gastroenterology 07/16/22 Abby Vasquez MD [address] [place] [address] Assigned PCP 09/26/22 10/06/23 Airam Hodges PA-C [address] [place] [address] [place] [address] Physician Commercial Insulator Surgery 07/19/23 documented as of this encounter
--- OUTSIDE RECORDS SUMMARY | 2023-10-25 14:12 | XMS_ITS | Encounter Summary ---
Author Name Unknown Organization [place] Address [address] [facility] [place] [address] Care Team Providers Care Pharmaceutical Sales Name Role Phone Monty Musa MD Primary Care Provider Alfonso Tang Unavailable Unavailable Dayanara Bee MD Unavailable [phone] Min Lange MD Unavailable Unavailable Marlo Madsen MD Unavailable [phone] Mel Buckley RN Unavailable [phone] Douglas Cadet MD Unavailable [phone] Rosalba Pendleton APRN SPRAYER HAND Unavaila ble Rosalba Pendleton APRN SPRAYER HAND Unavaila ble Marlo Madsen MD Unavailable [phone] Abby Vasquez MD Unavailable Abby Vasquez MD Unavailable Airam Hodges PA-C Unavailable [phone] Encounter Details Date Type Department Care Team (Latest Contact Info) Description 09/29/2023 Travel Social History Tobacco Use Types Packs/Day [...] Sex Assigned at Female 10/31/2021 7:59 AM FBI SPECIAL AGENT Gender Identity Female 10/31/2021 7:59 AM FBI SPECIAL AGENT Sexual Orientation Straight 10/31/2021 7: 59 AM FBI SPECIAL AGENT documented as of this encounter Plan of Treatment Upcoming Encounters Date Type Department Care Team (Late st Contact Info) Description 10/26/2023 1:00 PM FBI SPECIAL AGENT Virtual Visit [facility] Gastro[facility] [address] [place] [phone] Latricia Pettit PA-C [address] [place] [address] 10/28/2023 10:50 AM FBI SPECIAL AGENT Therapy Visit [address] [address] Zain Quintana MD [address] [place] [address] Lainey Siomn PT [address] [place] [address] 11/04/2023 10:50 AM FBI SPECIAL AGENT Therapy Visit [address] [address] Zain Quintana MD [address] [place] [address] 077905 Lainey Simon PT [address] [place] [address] 11/17/2023 11:00 AM FBI SPECIAL AGENT Therapy Visit [address] [address] [place] [address] [place] [address] 11/24/2023 10:40 AM CDT Office Visit [facility] Gastroenterology Clinic [address] 4th [place] [phone] Abby Vasquez MD [address] [place] [address] 11/24/2023 1:30 PM CDT Therapy Visit [address] [address] Lainey Simon, PT [address] [place] [address] 12/01/2023 10:20 AM CDT Therapy Visit [address] [address] Lainey Simon, PT [address] [place] [address] 12/08/2023 10:20 AM CDT Therapy Visit [address] [address] Lainey Simon, PT [address] [place] [address] 01/13/2024 10:00 AM CDT Virtual Visit [facility] Neurology Clinic [address]rd [place] [phone] Rosalba Pendleton, MAXIMILIANO SPRAYER HAND 909 [facility] [id number] [place] [address] 01/20/2024 8:00 PM CDT Therapy Visit [facility] Sleep [facility] [address] [address] [place] [phone] 03/14/2024 10:30 AM CDT Office Visit [facility] 6363 [facility] [address] [place] [phone] Abhishek Acevedo PA-C [address] [facility] 103 [place] [address] 03/21/2024 11:30 AM CDT Office Visit [facility] Colon and Rectal Surgery Clinic [address] [place] [phone] Zain Quintana MD [address] [place] [address] [phone] documented as of this encounter Visit Diagnoses Not on filedocumented in this encounter Additional Health Concerns Assessment Noted Time PHQ-9 Depression Total Score: 12 023 8:53 AM CDT documented as of this encounter Care Teams Pharmaceutical Sales Relationship Specialty Start Date End Date Monty Musa MD [facility] [address] [place] [address] PCP - General Family Medicine 08/13/21 Alfonso Tang [facility] [address] [place] [address] Family Practice 08/13/21 Dayanara Bee MD [address] [address] Pediatrics 12/26/14 Min Lange MD 420 [facility] 75 [place] [address] Neurology 03/30/16 Marlo Madsen MD [address] [place] [address] Cardiology 10/27/16 Mel Buckley, RN Nurse Coordinator Physical Medicine and Rehabilitation 12/02/16 Douglas Cadet MD [address] [place] [address] Gastroenterology 08/13/21 Rosalba Pendleton APRN SPRAYER HAND [address] [place] [address] 610195 Nurse Practitioner Neurology 09/05/21 Rosalba Pendleton APRN SPRAYER HAND [address] [place] [address]7946 Assigned Neuroscience Provider 11/09/21 Marlo Madsen MD [address] [place] [address] Assigned Heart and Vascular Provider 03/14/22 Abby Vasquez MD [address] [place] [address] 155405 Gastroenterology 07/16/22 Abby Vasquez MD [address] [place] [address] 315555 Assigned PCP 09/26/22 10/06/23 Airam Hodges PA-C [address] [place] [address] 461875 Physician Food Writer Surgery 07/19/23 documented as of this encounter
--- OUTSIDE RECORDS SUMMARY | 2023-10-25 14:12 | XMS_ITS | Encounter Summary ---
Author Name Unknown Organization [place] Address [address] [facility] [place] [address] Care Team Providers Care Verse Writer Name Role Phone Monty Musa MD Primary Care Provider Alfonso Tang Unavailable Unavailable Dayanara Bee MD Unavailable [phone] Min Lange MD Unavailable Unavailable Marlo Madsen MD Unavailable [phone] Mel Buckley RN Unavailable [phone] Douglas Cadet MD Unavailable Rosalba Pendleton APRN FILLER SHREDDER Unavaila ble Rosalba Pendleton APRN FILLER SHREDDER Unavaila ble Marlo Madsen MD Unavailable [phone] Abby Vasquez MD Unavailable Abby Vasquez MD Unavailable Airam Hodges PA-C Unavailable [phone] Reason for Visit * Diagnostic Imaging XR (Routine) - Pending Review Specialty Diagnoses / Procedures Referred By Contac t Referred To Contact Radiology. Diagnoses Slow transit constipation Procedures XR Abdomen 1 View Zain Quintana MD 500 [place] [address] Referral ID Status Reason Start Date Expiration Date V isits Requested Visits Authorized [id number] Pending Review 09/21/2023 09/20/2024 1 1 Encounter Details Date Type Department Care Team (Latest Contact Info) Description 09/29/2023 9:30 AM ASSOCIATE PROFESSOR OF THEOLOGY Ancillary Procedure [facility] [address] [facility] [address] [place] [phone] Zain Quintana MD [address] [place], [place] [phone] Slow transit constipation Social History Tobacco Use [...] Sex Assigned at Female 10/31/2021 7:59 AM ASSOCIATE PROFESSOR OF THEOLOGY Gender Identity Female 10/31/2021 7:59 AM ASSOCIATE PROFESSOR OF THEOLOGY Sexual Orientation Straight 10/31/2021 7: 59 AM ASSOCIATE PROFESSOR OF THEOLOGY documented as of this encounter Plan of Treatment Upcoming Encounters Date Type Department Care Team (Late st Contact Info) Description 10/26/2023 1:00 PM ASSOCIATE PROFESSOR OF THEOLOGY Virtual Visit [facility] Gastroenterology Clinic [address]th [place] [phone] Latricia Pettit PA-C [address] [place] [address] 10/28/2023 10:50 AM ASSOCIATE PROFESSOR OF THEOLOGY Therapy Visit [facility] Rehabilitation Services [facility] [address] [facility] [address] [place] [address] Zain Quintana MD 500 [place], [place] 95[address]55 Lainey Simon PT [address] [place] [address] 11/04/2023 10:50 AM ASSOCIATE PROFESSOR OF THEOLOGY Therapy Visit [address] [address] Zain Quintana MD [address] [place] [address] Lainey Simon, PT [address] [place] [address] 11/17/2023 11:00 AM ASSOCIATE PROFESSOR OF THEOLOGY Therapy Visit [address] [address] Lainey Simon, PT [address] [place] [address] 11/24/2023 10:40 AM CDT Office Visit [facility] Gastroenterology Clinic [address] [phone] Abby Vasquez MD [address] [place] [address] 11/24/2023 1:30 PM CDT Therapy Visit [address] [address] Lainey Simon, PT [address] [place] [address] 12/01/2023 10:20 AM CDT Therapy Visit [address] [address] Lainey Simon, PT [address] [place] [address] 12/08/2023 10:20 AM CDT Therapy Visit [facility] Rehabilitation Services [facility] [address] [facility] 300 [place] [address] [place] [address] [place] [address] 01/13/2024 10:00 AM CDT Virtual Visit [facility] Neurology Clinic [address] 3rd [place] [phone] Rosalba Pendleton APRN [address] [place] [address] 01/20/2024 8:00 PM CDT Therapy Visit [facility] Sleep [address] [phone] 03/14/2024 10:30 AM CDT Office Visit [address] [phone] Abhishek Acevedo PA-C 6363 [facility] 103 [place] [address] 03/21/2024 11:30 AM CDT Office Visit [facility] Colon and Rectal Surgery Clinic [address] 4th [place] [phone] Zain Quintana MD [address] [place] [address] 336155 documented as of this encounter Procedures Procedure Name Priority Date/Time Associated Diagnosis Comments XR ABDOMEN 1 VIEW Routine 09/29/2023 8:5 7 AM ASSOCIATE PROFESSOR OF THEOLOGY Slow transit constipation documented in this encounter Results * XR Abdomen 1 View (09/29/2023 8:57 AM ASSOCIATE PROFESSOR OF THEOLOGY) Anatomical Region Laterality Modality Abdomen/Pelvis Computed Radiogr aphy Impressions 09/29/2023 3:13 PM ASSOCIATE PROFESSOR OF THEOLOGY IMPRESSION: Nonobstructive bowel. Moderate stool. Sitz markers have moved to the distal colon since the prior exam. 24 Sitz markers are identified. BETH AYOUB MD SYSTEM ID: [id number] Narrative 09/29/2023 3:13 PM ASSOCIATE PROFESSOR OF THEOLOGY ABDOMEN ONE VIEW September 29, 2023 8:57 AM HISTORY: Sitz Marker Study. Slow transit constipation. COMPARISON: KUB 09/27/2023. Procedure Note Beth Ayoub MD - 09/29/2023 ABDOMEN ONE VIEW September 29, 2023 8:57 AM HISTORY: Sitz Marker Study. Slow transit constipation. COMPARISON: KUB 09/27/2023. IMPRESSION: Nonobstructive bowel. Moderate stool. Sitz markers have moved to the distal colon since the prior exam. 24 Sitz markers are identified. BETH AYOUB MD SYSTEM ID: [id number] Zain Quintana MD IMG DIAGNOSTIC IMAGI NG ORDERABLES documented in this encounter Visit Diagnoses Diagnosis Slow transit constipation documented in this encounter Additional Health Concerns Assessment Noted Time PHQ-9 Depression Total Score: 12 07/15/ 023 8:53 AM CDT documented as of this encounter Care Teams Verse Writer Relationship Specialty Start Date End Date Monty Msua MD [facility] [address] [place] [address] PCP - General Family Medicine 08/13/21 Alfonso Tang [facility] MED[facility] [address] [place] [address] Family Practice 08/13/21 Dayanara Bee MD [address] [place] [address] Pediatrics 12/26/14 Min Lange MD 420 [facility] 75 [place] [address] Neurology 03/30/16 Marlo Madsen MD [address] [place] [address] Cardiology 10/27/16 Mel Buckley, RN Nurse Coordinator Physical Medicine and Rehabilitation 12/02/16 Douglas Cadet MD [address] [place] [address] Gastroenterology 08/13/21 Rosalba Pendleton APRN FILLER SHREDDER [address] [place] [address] Nurse Practitioner Neurology 09/05/21 Rosalba Pendleton APRN FILLER SHREDDER [address] [place] [address] 368135 Assigned Neuroscience Provider 11/09/21 Marlo Madsen MD [address] [place] [address] Assigned Heart and Vascular Provider 03/14/22 Abby Vasquez MD [address] [place] [address] Gastroenterology 07/16/22 Abby Vasquez MD [address] [place] [address] 27[address] Assigned PCP 09/26/22 10/06/23 Airam Hodges PA-C [address] [place] [address] Physician Music Manager Surgery 07/19/23 documented as of this encounter
--- OUTSIDE RECORDS SUMMARY | 2023-10-25 14:13 | XMS_ITS | Encounter Summary ---
Author Name Unknown Organization [place] Address [address] [facility] [place] [address] Care Team Providers Care Communications Equipment Supervisor Name Role Phone Monty Musa MD Primary Care Provider [phone] Alfonso Tang Unavailable Unavailable Dayanara Bee MD Unavailable [phone] Min Lange MD Unavailable Unavailable Marlo Madsen MD Unavailable [phone] Mel Buckley RN Unavailable [phone] Douglas Cadet MD Unavailable Rosalba Pendleton APRN SQUAD LEADER Unavaila ble Rosalba Pendleton APRN SQUAD LEADER Unavaila ble Marlo Madsen MD Unavailable [phone] Abby Vasquez MD Unavailable Abby Vasquez MD Unavailable Airam Hodges PA-C Unavailable [phone] Encounter Details Date Type Department Care Team (Late st Contact Info) Description 09/17/2023 1:30 PM [facility] [address] [place] [address] Restless legs syndrome (RLS); Low [...] Sex Assigned at Female 10/31/2021 7:59 AM NURSING PROGRAM COORDINATOR Gender Identity Female 10/31/2021 7:59 AM NURSING PROGRAM COORDINATOR Sexual Orientation Straight 10/31/2021 7: 59 AM NURSING PROGRAM COORDINATOR documented as of this encounter Miscellaneous Notes * Result Encounter Note - Abhishek Acevedo PA-C - 09/17/2023 1:30 PM NURSING PROGRAM COORDINATOR Nicole Rome- Your ferritin came back at 40, which [...] difference in the restless legs. RegardsAbhishek PA-C ING PROGRAM COORDINATOR documented in this encounter Plan of Treatment Upcoming Encounters Date Type Department Care Team (Late st Contact Info) Description 10/26/2023 1:00 PM NURSING PROGRAM COORDINATOR Virtual Visit [facility] [address] [place] [address] Latricia Pettit PA-C [address] [place] [address] 10/28/2023 10:50 AM NURSING PROGRAM COORDINATOR Therapy Visit [facility] Rehabilitation Services [facility] [place] [address] [place] [address] Zain Quintana MD [address] [place] [address] Lainey Simon, PT [address] [place] [address] 11/04/2023 10:50 AM NURSING PROGRAM COORDINATOR Therapy Visit [address] [address] Zain Quintana MD [address] [place] [address] Lainey Simon, PT [address] [place] [address] 11/17/2023 11:00 AM NURSING PROGRAM COORDINATOR Therapy Visit [address] [address] Lainey Simon, PT [address] [place] [address] 11/24/2023 10:40 AM CDT Office Visit [facility] [address] [phone] Abby Vasquez MD [address] [place] [address] 11/24/2023 1:30 PM CDT Therapy Visit [address] [address] Lainey Simon, PT [address] [place] [address] 12/01/2023 10:20 AM CDT Therapy Visit [facility] [address] [facility] [address] [place] [address] [place] [address] [place] [address] 12/08/2023 10:20 AM CDT Therapy Visit [place] [id number] [facility] [address] [place] [address] [place] [address] [place], [place] [address] 01/13/2024 10:00 AM CDT Virtual Visit [facility] Neurology Clinic [address] [place] [phone] Rosalba Pendleton APRN [address] [place] [address] 01/20/2024 8:00 PM CDT Therapy Visit [facility] Sleep [address] [phone] 03/14/2024 10:30 AM CDT Office Visit [facility] Sleep [address] [phone] Abhishek Acevedo PA-C [address] [address] 03/21/2024 11:30 AM CDT Office Visit [facility]al Surgery [facility] [address] [place] [phone] Zain Quintana MD [address] [place] [address] documented as of this encounter Procedures Procedure Name Priority Date/Time Associated Diagnosis Comments FERRITIN Routine 09/17/2023 1:20 PM NURSING PROGRAM COORDINATOR Restless legs syndrome (RLS) Low iron documented in this encounter Results * Ferritin (09/17/2023 1:20 PM NURSING PROGRAM COORDINATOR) Ferritin 40 6 - 175 ng/mL 09/17/2023 9:34 PM NURSING PROGRAM COORDINATOR [facility] Blood BLOOD SPECIMEN / Unknown Venipuncture / Unknown 09/17/2023 1:20 PM NURSING PROGRAM COORDINATOR 09/17/2023 1:20 PM NURSING PROGRAM COORDINATOR Abhishek Acevedo PA-C LAB - BLOOD ORDE MARQUEZ [facility] [address] [facility], Room [address] [phone] [phone] documented in this encounter Visit Diagnoses Diagnosis Restless legs syndrome (RLS) Low iron Iron deficiency anemia, unspecified documented in this encounter Additional Health Concerns Assessment Noted Time PHQ-9 Depression Total Score: 12 023 8:53 AM CDT documented as of this encounter Care Teams Communications Equipment Supervisor Relationship Specialty Start Date End Date Monty Musa MD [facility] [address] [place] [address] PCP - General Family Medicine 08/13/21 Alfonso Tang [facility] [address] [place] [address] Family Practice 08/13/21 Dayanara Bee MD [address] 817555 Pediatrics 12/26/14 Min Lange MD 420 [facility] 75 [place] [address] Neurology 03/30/16 Marlo Madsen MD [address] [place] [address] Cardiology 10/27/16 Mel Buckley, RN Nurse Coordinator Physical Medicine and Rehabilitation 12/02/16 Douglas Cadet MD [address] [place] [address] Gastroenterology 08/13/21 Rosalba Pendleton APRN SQUAD LEADER [address] [place] [address] 030895 Nurse Practitioner Neurology 09/05/21 Rosalba Pendleton APRN SQUAD LEADER [address] [place] [address] Assigned Neuroscience Provider 11/09/21 Marlo Madsen MD [address] [place] [address] Assigned Heart and Vascular Provider 03/14/22 Abby Vasquez MD [address] [place] [address] Gastroenterology 07/16/22 Abby Vasquez MD [address] [place] [address] 716825 Assigned PCP 09/26/22 10/06/23 Airam Hodges PA-C [address] [place] [address] Physician Metal Sander Surgery 07/19/23 documented as of this encounter
--- OUTSIDE RECORDS SUMMARY | 2023-10-25 14:13 | XMS_ITS | Encounter Summary ---
Author Name Unknown Organization [place] Address [address] [facility] [place] [address] Care Team Providers Care Lubrication Equipment Servicer Name Role Phone Monty Musa MD Primary Care Provider [phone] Alfonso Tang Unavailable Unavailable Dayanara Bee MD Unavailable [phone] Min Lange MD Unavailable Unavailable Marlo Madsen MD Unavailable [phone] Mel Buckley RN Unavailable [phone] Douglas Cadet MD Unavailable Rosalba Pendleton APRN FIELD EXAMINER Unavaila ble Rosalba Pendleton APRN FIELD EXAMINER Unavaila ble Malro Madsen MD Unavailable [phone] Abby Vasquez MD Unavailable Abby Vasquez MD Unavailable Airam Hodges PA-C Unavailable [phone] Reason for Visit * Reason Comments Sleep Problem Wakes up with headac he, lots of movement, insomnia * Consultation (Routine: Next available opening) - Pending Review Specialty Diagnoses / Procedures Referred By Contgeovany t Referred To Contact Diagnoses History of sleep apnea Morning headache Insomnia, unspecified type Rosalba Pendleton, MAXIMILIANO FIELD EXAMINER [address] [id number] [place] [address] Referral ID Status Reason Start Date Expiration Date V isits Requested Visits Authorized [id number] Pending Review 07/15/2023 07/14/2024 1 1 Encounter Details Date Type Department Care Team (Late st Contact Info) Description 09/15/2023 11:00 AM DEVELOPMENT TECHNICAL LEAD Office Visit [facility] [place] [address] [place] [phone] Rosalba Pendleton, [employer] FIELD EXAMINER [address] [id number] [place] [address] Abhishek Acevedo PA-C [address] [facility] 103 [place], [place] [phone] Delayed sleep phase syndrome (Primary Dx); History [...] Sex Assigned at Female 10/31/2021 7:59 AM DEVELOPMENT TECHNICAL LEAD Gender Identity Female 10/31/2021 7:59 AM DEVELOPMENT TECHNICAL LEAD Sexual Orientation Straight 10/31/2021 7: 59 AM DEVELOPMENT TECHNICAL LEAD documented as of this encounter Last Filed Vital Signs Vital Sign Reading Time Taken Comments Blood Pressure 121/84 09/15/2023 11:00 AM DEVELOPMENT TECHNICAL LEAD Pulse 75 09/15/2023 11:00 AM DEVELOPMENT TECHNICAL LEAD Temperature - - Respiratory Rate - - Oxygen Saturation 100% 09/15/2023 11:00 AM DEVELOPMENT TECHNICAL LEAD Inhaled Oxygen Concentration - - Weight 80.1 kg (176 lb 9.6 oz) 09/15/2023 11:00 AM DEVELOPMENT TECHNICAL LEAD Height 167.6 cm (5' 5.98) 09/15/2023 11:[address] Body Mass Index 28.52 09/15/2023 11:00 AM DEVELOPMENT TECHNICAL LEAD documented in this encounter Patient Instructions * Patient Instructions* Abhishek Acevedo PA-C - 09/15/2023 11:00 AM DEVELOPMENT TECHNICAL LEAD Instructions for treating Delayed Sleep Phase Syndrome: [...] sold at Home Medical Companies such as [employer] or [employer]. A prescription can be written to get insurance coverage in some cases. They are also sold on [employer]. Consider Verilux Happy Light Lucent. Using the [...] it is recommended that you consult an event marketing manager before using a light box. If you have a condition that makes your eyes very sensitive to light, macular degeneration, a family history of such problems, or diabetic changes to your eyes, consult an event marketing manager before using a light box. If you have anxiety disorder and have an increase in anxiety discontinue use. LOPMENT TECHNICAL LEAD documented in this encounter Progress Notes * Abhishek Acevedo PA-C - 09/15/2023 11:00 AM CST Images from the original note were not included. Outpatient Sleep Medicine Consultation: Name: Latricia Hatch Age: [age] year old Date of : 1990 Date of Consultation: September 14, 2023 Consultation is requested by: Rosalba Pendleton APRN FIELD EXAMINER [address] [facility] [id number] [place] [address] Rosalba Wu Primary care provider: Monty Musa [...] donates blood occasionally and will take a SubHub vitamin with iron for a week before [...] study. She had an EEG done at [facility] for autonomic dysfunction. There was no abnormal [...] 10-15 minutes. 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 She is on disability with her dysautonomia. SCALES: EPWORTH SLEEPINESS SCALE 09/13/2023 10:12 PM Emden Sleepiness Scale (??Naveen Gupta [phone]
ESS - [place] - Final version - Jul 20 - [facility] Research [employer].) Sitting and reading Slight chance of dozing [...] minutes in traffic Slight chance of dozing Emden Score (MC) 10 Emden Score (Sleep) 10 INSOMNIA SEVERITY INDEX (CHRISTY) [...] Clinical insomnia (severe) Used via courtesy of www.Linkable Networksealth.md.gov with permission from Tez Treviño PhD., [employer]?? [employer] STOP BANG 09/13/2023 10:13 PM STOP BANG Questionnaire (?? 2008, the [place] Society of Anesthesiologists, Inc. [employer].) 1. Snoring - Do [...] and colleagues, with an educational barak from [employer]. No permission required to reproduce, translate, display [...] tablet 3 Zavegepant HCl 10 MG/ACT SOLN Whitmer 10 mg in nostril at onset of [...] Dawson MD; Location: [facility] OR ORTHOPEDIC SURGERY [facility] EXPLORATORY OF ABDOMEN Social History: Social [...] OPIT, UPCP No results found for: IRONSAT, [id number], JOE No results found for: PH, PHARTERIAL, PO2, [id number], SAT, PCO2, HCO3, BASEEXCESS, ALO, BEB @LABRCNTIPR(phv:4,pco2v:4,po2v:4,hco3v:4,mauro:4,o2per:4)@ [...] found for: Abhishek Acevedo PA-C, KEILA 09/14/2023 LOPMENT TECHNICAL LEAD documented in this encounter Nursing Notes * [...] Neck circumference: 38 centimeters. Terry Vasquez MA LOPMENT TECHNICAL LEAD documented in this encounter Plan of Treatment Upcoming Encounters Date Type Department Care Team (Late st Contact Info) Description 10/26/2023 1:00 PM DEVELOPMENT TECHNICAL LEAD Virtual Visit [facility]ology [facility] [address] [place] [phone] Latricia Pettit PA-C [address] [place] [address] 10/28/2023 10:50 AM DEVELOPMENT TECHNICAL LEAD Therapy Visit [address] [address] Zain Quintana MD [address] [place] [address] Lainey Simon PT [address] [place] [address] 11/04/2023 10:50 AM DEVELOPMENT TECHNICAL LEAD Therapy Visit [address] [address] Zain Quintana MD [address] [place] [address] Lainey Simon PT [address] [place] [address] 11/17/2023 11:00 AM DEVELOPMENT TECHNICAL LEAD Therapy Visit [address] [address] Lainey Simon, PT [address] [place] [address] 11/24/2023 10:40 AM CDT Office Visit [facility] [address] [place] [phone] Abby Vasquez MD [address] [place] [address] 11/24/2023 1:30 PM CDT Therapy Visit [address] [address] Lainey Simon, PT [address] [place] [address] 12/01/2023 10:20 AM CDT Therapy Visit [address] [address] Lainey Simon, PT [address] [place] [address] 12/08/2023 10:20 AM CDT Therapy Visit [address] [address] Lainey Simon, PT [address] [place] [address] 01/13/2024 10:00 AM CDT Virtual Visit [facility] Neurology Clinic [address] [place] [phone] Rosalba Pendleton APRN [address] [id number] [place] [address] 01/20/2024 8:00 PM CDT Therapy Visit [facility] Sleep [facility] 6[address] [facility] [address] [place] [place] [phone] 03/14/2024 10:30 AM CDT Office Visit [facility] [address] [facility] [address] [place] [place] [phone] Abhishek Acevedo PA-C [address]170 [facility] [address] [place] [place] [id number] 03/21/2024 11:30 AM CDT Office Visit [facility]al [facility] [address] 4th [place] [address] Zain Quintana MD 500 [place] [address] Scheduled Orders Name Type Priority Associated Diagnoses Orde r Schedule Comprehensive Sleep Study Procedures Routine History of sleep apnea Morning headache Expected: 09/29/2023 (Approximate), Expires: 03/15/2024 documented as of this encounter Results * Ferritin (09/17/2023 1:20 PM DEVELOPMENT TECHNICAL LEAD) Ferritin 40 6 - 175 ng/mL 09/17/2023 9:34 PM DEVELOPMENT TECHNICAL LEAD [facility] Blood BLOOD SPECIMEN / Unknown Venipuncture / Unknown 09/17/2023 1:20 PM DEVELOPMENT TECHNICAL LEAD 09/17/2023 1:20 PM DEVELOPMENT TECHNICAL LEAD Abhishek Acevedo PA-C LAB - BLOOD SOTO ZAYAS [facility] [place] [facility] 500 [facility] [address] Building, Room 3-580 [place] [address], [facility] [phone] documented in this encounter Visit Diagnoses Diagnosis [...] documented as of this encounter Care Teams Lubrication Equipment Servicer Relationship Specialty Start Date End Date Monty Musa MD [facility] [address] [place] [address] PCP - General Family Medicine 08/13/21 Alfonso Tang [facility] [address] [place] [address] Family Practice 08/13/21 Dayanara Bee MD [address] [place] [address] Pediatrics 12/26/14 Min Lange MD [address] [place] [address] 75 [place] [address] Neurology 03/30/16 Marlo Madsen MD [address] [place] [address] 508 [place] [address] Cardiology 10/27/16 Mel Buckley, RN Nurse Coordinator Physical Medicine and Rehabilitation 12/02/16 Douglas Cadet MD [address] [place] [address] 889515 Gastroenterology 08/13/21 Rosalba Pendleton APRN FIELD EXAMINER [address] [place] [address] [phone] Nurse Practitioner Neurology 09/05/21 Rosalba Pendleton APRN FIELD EXAMINER [address] [place] [address] 057905 Assigned Neuroscience Provider 11/09/21 Marlo Madsen MD [address] [place] [address] 508 [place], [place] 739385 Assigned Heart and Vascular Provider 03/14/22 Abby Vasquez MD [address] [place] [address] 097045 Gastroenterology 07/16/22 Abby Vasquze MD [address] [place] [address] 941415 Assigned PCP 09/26/22 10/06/23 Airam Hodges PA-C [address] [place] [address] [id number] Physician Mat Repairer Surgery 07/19/23 documented as of this encounter
--- OUTSIDE RECORDS SUMMARY | 2023-10-25 14:13 | XMS_ITS | Encounter Summary ---
Author Name Unknown Organization [place] Address [address] [facility] [place] [address] Care Team Providers Care Director Of Database Marketing Name Role Phone Monty Musa MD Primary Care Provider [phone] Alfonso Tang Unavailable Unavailable Dayanara Bee MD Unavailable [phone] Min Lange MD Unavailable Unavailable Marlo Madsen MD Unavailable [phone] Mel Buckley RN Unavailable [phone] Douglas Cadet MD Unavailable [phone] Rosalba Pendleton APRN BUTCHER ASSISTANT Unavaila ble Rosalba Pendleton APRN BUTCHER ASSISTANT Unavaila ble Douglas Cadet MD Unavailable [phone] Marlo Madsen MD Unavailable [phone] Abby Vasquez MD Unavailable Abby Vasquez MD Unavailable Airam Hodges PA-C Unavailable [phone] Zain Quintana MD Unavailable [phone] Latricia Pettit PA-C Unavailable [phone] Encounter Details Date Type Department Care Team (Late st Contact Info) Description 07/10/2023 MyC Medical Advice [facility] [address] [phone] Abby Vasquez MD [address] [place] [address] Social History Tobacco Use Types Packs/Day Years [...] Sex Assigned at Female 10/31/2021 7:59 AM ARMORED CAR GUARD Gender Identity Female 10/31/2021 7:59 AM ARMORED CAR GUARD Sexual Orientation Straight 10/31/2021 7: 59 AM ARMORED CAR GUARD documented as of this encounter Plan of Treatment Upcoming Encounters Date Type Department Care Team (Late st Contact Info) Description 10/26/2023 1:00 PM ARMORED CAR GUARD Virtual Visit [facility] [address] [phone] Latricia Pettit PA-C [address] [place] [address] 10/28/2023 10:50 AM ARMORED CAR GUARD Therapy Visit [address] [place] [address] Zain Quintana MD [address] [place] [address] 588325 Lainey Simon PT [address] [place] [address] 11/04/2023 10:50 AM ARMORED CAR GUARD Therapy Visit [address] [place] [address] Zain Quintana MD [address] [place] [address] Lainey Simon, PT [address] [place] [address] 11/17/2023 11:00 AM ARMORED CAR GUARD Therapy Visit [address] [address] Lainey Simon, PT [address] [place] [address] 11/24/2023 10:40 AM CDT Office Visit [facility] [address] 4th [place] [phone] Abby Vasquez MD [address] [place] [address] 11/24/2023 1:30 PM CDT Therapy Visit [address] [address] Lainey Simon, PT [address] [place] [address] 12/01/2023 10:20 AM CDT Therapy Visit [address] [address] Lainey Simon, PT [address] [place] [address] 12/08/2023 10:20 AM CDT Therapy Visit [address] [address] [place] [address] [place] [address] 01/13/2024 10:00 AM CDT Virtual Visit [facility] [address] [facility] 3rd [place] [phone] Rosalba Pendleton, MAXIMILIANO BUTCHER ASSISTANT 909 [facility] [id number] [place] [address] 01/20/2024 8:00 PM CDT Therapy Visit [facility] [address] [phone] 03/14/2024 10:30 AM CDT Office Visit [facility] [address] [place] [phone] Abhishek Acevedo PA-C 8787 [facility] 103 [place], [place] [phone] 03/21/2024 11:30 AM CDT Office Visit [facility]al [facility] [address] [facility] 4th [place] [phone] Zain Quintana MD [address] [place] [address] [phone] documented as of this encounter Visit Diagnoses Not on filedocumented in this encounter Additional Health Concerns Assessment Noted Time PHQ-9 Depression Total Score: 11 022 11:52 AM CDT documented as of this encounter Care Teams Director Of Database Marketing Relationship Specialty Start Date End Date Monty Musa MD [facility] [address] [place] [address] PCP - General Family Medicine 08/13/21 Alfonso Tang [facility] [address] [place] [address] [facility] 08/13/21 Dayanara Bee MD [address] [address] Pediatrics 12/26/14 Min Lange MD [address] [address] Neurology 03/30/16 Marlo Madsen MD [address] [place] [address] 957415 Cardiology 10/27/16 Mel Buckley, RN Nurse Coordinator Physical Medicine and Rehabilitation 12/02/16 Douglas Cadet MD [address] [place] [address] Gastroenterology 08/13/21 Rosalba Pendleton APRN BUTCHER ASSISTANT [address] [place] [address] Nurse Practitioner Neurology 09/05/21 Rosalba Pendleton APRN BUTCHER ASSISTANT [address] [place] [address] Assigned Neuroscience Provider 11/09/21 Douglas Cadet MD 500 [place] [address] Assigned Gastroenterology Provider 03/14/22 09/03/23 Marlo Madsen MD [address] [place] [address] Assigned Heart and Vascular Provider 03/14/22 Abby Vasquez MD [address] [place] [address] Gastroenterology 07/16/22 Abby Vasquez MD [address] [place] [address] Assigned PCP 09/26/22 10/06/23 Airam Hodges PA-C 500 [place] [address] Physician Relationship Advisor Surgery 07/19/23 Zain Quintana MD [address] [place] [address] Assigned Surgical Provider 10/07/23 Latricia Pettit PA-C [address] [place] [address] Assigned Gastroenterology Provider 10/15/23 documented as of this encounter
--- OUTSIDE RECORDS SUMMARY | 2023-10-25 14:13 | XMS_ITS | Encounter Summary ---
Author Name Unknown Organization [place] Address [address] [facility] [place] [address] Care Team Providers Care Payroll Administrator Name Role Phone Monty Musa MD Primary Care Provider [phone] Alfonso Tang Unavailable Unavailable Dayanara Bee MD Unavailable [phone] Min Lange MD Unavailable Unavailable Marlo Madsen MD Unavailable [phone] Mel Buckley RN Unavailable [phone] Douglas Cadet MD Unavailable [phone] Rosalba Pendleton APRN NURSE SPECIAL Unavaila ble Rosalba Pendleton APRN NURSE SPECIAL Unavaila ble Douglas Cadet MD Unavailable [phone] Marlo Madsen MD Unavailable [phone] Abby Vasquez MD Unavailable Abby Vasquez MD Unavailable Airam Hodges PA-C Unavailable [phone] Reason for Visit * Reason Onset Date Comments Prior Auth - Medication 07/15/2023 Zavegepa nt HCl 10 MG/ACT SOLN Encounter Details Date Type Department Care Team (Late st Contact Info) Description 07/15/2023 Telephone [facility] [address] 3rd [place] [address] Rosalba Pendleton APRN NURSE SPECIAL [address] [facility] [id number] [place] [address] Prior Auth - Medication (Zavegepant HCl 10 [...] Sex Assigned at Female 10/31/2021 7:59 AM INFORMATICS APPLICATION ANALYST Gender Identity Female 10/31/2021 7:59 AM INFORMATICS APPLICATION ANALYST Sexual Orientation Straight 10/31/2021 7: 59 AM INFORMATICS APPLICATION ANALYST documented as of this encounter Miscellaneous Notes * Telephone Encounter - Lavinia Ayoub - 07/20/2023 2:34 PM CST Images from the original note were not included. Prior Authorization Approval Medication: ZAVZPRET 10 MG/ACT NA SOLN Authorization Effective Date: 06/20/2023 Authorization Expiration Date: 07/19/2024 Approved Dose/Quantity: Reference #: Insurance [employer]: I-Stand Non-Specialty PA's - Expected CoPay: $ CoPay Card Available: Financial Assistance Needed: Which Pharmacy is filling the prescription: [id number] [place] [address] Pharmacy Notified: Yes Patient Notified: Instructed pharmacy to notify patient when script is ready to mixing picker tender/ship. RMATICS APPLICATION ANALYST * Telephone Encounter - Joy Presley CMA - 07/15/2023 9:52 AM CDT Prior Authorization Retail Medication Request Medication/Dose: Zavegepant HCl 10 MG/ACT SOLN ICD code (if different than what is on RX): Previously Tried and Failed: See Chart Rationale: see chart Insurance Name: [employer] [facility] Information (if different than what is on RX) Name: Phone: documented in this encounter Plan of Treatment Upcoming Encounters Date Type Department Care Team (Late st Contact Info) Description 10/26/2023 1:00 PM INFORMATICS APPLICATION ANALYST Virtual Visit [facility] [address] [place] [phone] Latricia Pettit PA-C [address] [place] [address] 10/28/2023 10:50 AM INFORMATICS APPLICATION ANALYST Therapy Visit [address] [address] Zain Quintana MD [address] [place] [address] [phone] Lainey Simon PT [address] [place] [address] 11/04/2023 10:50 AM INFORMATICS APPLICATION ANALYST Therapy Visit [address] [address] Zain Quintana MD [address] [place] [address] 019325 Lainey Simon PT [address] [place] [address] 11/17/2023 11:00 AM INFORMATICS APPLICATION ANALYST Therapy Visit [address] [place] [address] Lainey Simon, PT [address] [place] [address] 11/24/2023 10:40 AM CDT Office Visit [facility] [address] 4th [place] [phone] Abby Vasquez MD [address] [place] [address] [phone] 11/24/2023 1:30 PM CDT Therapy Visit [address] [address] Lainey Simon, PT [address] [place] [address] 12/01/2023 10:20 AM CDT Therapy Visit [address] [address] Lainey Simon, PT [address] [place] [address] 12/08/2023 10:20 AM CDT Therapy Visit [address] [address] Lainey Simon, PT [address] [place] [address] 01/13/2024 10:00 AM CDT Virtual Visit [facility] [address]rd [place] [phone] Rosalba Pendleton APRN [address] [id number] [place] [address] 01/20/2024 8:00 PM CDT Therapy Visit [facility] [address] [address] [place] [phone] 03/14/2024 10:30 AM CDT Office Visit [facility] [address] [place] [phone] Abhishek Acevedo PA-C 6[address] [facility] [address] [place] [address] 03/21/2024 11:30 AM CDT Office Visit [facility] [address] [place] [address] 4th [place] [phone] Zain Quintana MD [address] [place] [address] [phone] documented as of this encounter Visit Diagnoses Not on filedocumented in this encounter Additional Health Concerns Assessment Noted Time PHQ-9 Depression Total Score: 12 023 8:53 AM CDT documented as of this encounter Care Teams Payroll Administrator Relationship Specialty Start Date End Date Monty Musa MD [facility] [address] [place] [address] PCP - General Family Medicine 08/13/21 Alfonso Tang [facility] [address] [place] [address] Family Practice 08/13/21 Dayanara Bee MD [address] [address] Pediatrics 12/26/14 Min Lange MD 420 [facility] 75 [place] [address] Neurology 03/30/16 Marlo Madsen MD [address] [address] Cardiology 10/27/16 Mel Buckley, RN Nurse Coordinator Physical Medicine and Rehabilitation 12/02/16 Douglas Cadet MD 500 [place] [address] Gastroenterology 08/13/21 Rosalba Pendleton APRN NURSE SPECIAL [address] [place] [address] [phone] Nurse Practitioner Neurology 09/05/21 Rosalba Pendleton APRN NURSE SPECIAL [address] [place] [address] 399655 Assigned Neuroscience Provider 11/09/21 Douglas Cadet MD 500 [place] [address] Assigned Gastroenterology Provider 03/14/22 09/03/23 Marlo Madsen MD [address] [place] [address] Assigned Heart and Vascular Provider 03/14/22 Abby Vasquez MD [address] [place] [address] 186285 Gastroenterology 07/16/22 Abby Vasquez MD [address] [place] [address] Assigned PCP 09/26/22 10/06/23 Airam Hodges PA-C 500 [place], [place] [phone] Physician Wire Rigger Surgery 07/19/23 documented as of this encounter
--- OUTSIDE RECORDS SUMMARY | 2023-10-25 14:13 | XMS_ITS | Encounter Summary ---
Author Name Unknown Organization [place] Address [address] [facility] [place] [address] Care Team Providers Care Senior Hr Business Partner Name Role Phone Monty Musa MD Primary Care Provider Alfonso Tang Unavailable Unavailable Dayanara Bee MD Unavailable [phone] Min Lange MD Unavailable Unavailable Marlo Madsen MD Unavailable [phone] Mel Buckley RN Unavailable [phone] Douglas Cadet MD Unavailable [phone] Rosalba Pendleton APRN TIE SAWYER Unavaila ble Rosalba Pendleton APRN TIE SAWYER Unavaila ble Marlo Madsen MD Unavailable [phone] Abby Vasquez MD Unavailable Abby Vasquez MD Unavailable Airam Hodges PA-C Unavailable [phone] Encounter Details Date Type Department Care [...] Sex Assigned at Female 10/31/2021 7:59 AM ADULT NEUROPSYCHOLOGIST Gender Identity Female 10/31/2021 7:59 AM ADULT NEUROPSYCHOLOGIST Sexual Orientation Straight 10/31/2021 7: 59 AM ADULT NEUROPSYCHOLOGIST documented as of this encounter Plan of Treatment Upcoming Encounters Date Type Department Care Team (Late st Contact Info) Description 10/26/2023 1:00 PM ADULT NEUROPSYCHOLOGIST Virtual Visit [facility] [address] [place] [phone] Latricia Pettit PA-C [address] [place] [address] 10/28/2023 10:50 AM ADULT NEUROPSYCHOLOGIST Therapy Visit [address] [address] Zain Quintana MD [address] [place] [address] Lainey Simon PT [address] [place] [address] 11/04/2023 10:50 AM ADULT NEUROPSYCHOLOGIST Therapy Visit [address] [address] Zain Quintana MD [address] [place] [address] 115965 Lainey iSmon PT [address] [place] [address] 11/17/2023 11:00 AM ADULT NEUROPSYCHOLOGIST Therapy Visit [address] [address] [place] [address] [place] [address] 11/24/2023 10:40 AM CDT Office Visit [facility] [address] 4th [place] [phone] Abby Vasquez MD [address] [place] [address] 11/24/2023 1:30 PM CDT Therapy Visit [address] [address] Lainey Simon, PT [address] [place] [address] 12/01/2023 10:20 AM CDT Therapy Visit [address] [address] Lainey Simon, PT [address] [place] [address] 12/08/2023 10:20 AM CDT Therapy Visit [address] [address] Lainey Simon, PT [address] [place] [address] 01/13/2024 10:00 AM CDT Virtual Visit [facility] [address]rd [place] [phone] Rosalba Pendleton, MAXIMILIANO TIE SAWYER 909 [facility] [id number] [place] [address] 01/20/2024 8:00 PM CDT Therapy Visit [facility] [address] [address] [place] [phone] 03/14/2024 10:30 AM CDT Office Visit [facility] 6363 [facility] [address] [place] [phone] Abhishek Acevedo PA-C 6363 [facility] [address] [place] [address] 03/21/2024 11:30 AM CDT Office Visit [facility] [address]th [place] [phone] Zain Quintana MD [address] [place] [address] [phone] documented as of this encounter Visit Diagnoses Not on filedocumented in this encounter Additional Health Concerns Assessment Noted Time PHQ-9 Depression Total Score: 12 023 8:53 AM CDT documented as of this encounter Care Teams Senior Hr Business Partner Relationship Specialty Start Date End Date Monty Musa MD [facility] [address] [place] [address] PCP - General Family Medicine 08/13/21 Alfonso Tang [facility] [address] [place] [address] Family Practice 08/13/21 Dayanara Bee MD [address] [address] Pediatrics 12/26/14 Min Lange MD 420 [facility] 75 [place] [address] Neurology 03/30/16 Marlo Madsen MD [address] [place] [address] Cardiology 10/27/16 Mel Buckley, RN Nurse Coordinator Physical Medicine and Rehabilitation 12/02/16 Douglas Cadet MD [address] [place] [address] Gastroenterology 08/13/21 Rosalba Pendleton APRN TIE SAWYER [address] [place] [address] 587035 Nurse Practitioner Neurology 09/05/21 Rosalba Pendleton APRN TIE SAWYER [address] [place] [address] Assigned Neuroscience Provider 11/09/21 Marlo Madsen MD [address] [place] [address] Assigned Heart and Vascular Provider 03/14/22 Abby Vasquez MD [address] [place] [address] 992495 Gastroenterology 07/16/22 Abby Vasquez MD [address] [place] [address] 187145 Assigned PCP 09/26/22 10/06/23 Airam Hodges PA-C [address] [place] [address] 313015 Physician Child Watch Attendant Surgery 07/19/23 documented as of this encounter
--- OUTSIDE RECORDS SUMMARY | 2023-10-25 14:13 | XMS_ITS | Encounter Summary ---
Author Name Unknown Organization [place] Address [address] [facility] [place] [address] Care Team Providers Care Manager Continuous Improvement Name Role Phone Monty Musa MD Primary Care Provider [phone] Alfonso Tang Unavailable Unavailable Dayanara Bee MD Unavailable [phone] Min Lange MD Unavailable Unavailable Marlo Madsen MD Unavailable [phone] Mel Buckley RN Unavailable [phone] Douglas Cadet MD Unavailable [phone] Rosalba Pendleton APRN GENETIC COORDINATOR Unavaila ble Rosalba Pendleton APRN GENETIC COORDINATOR Unavaila ble Douglas Cadet MD Unavailable [phone] Marlo Madsen MD Unavailable [phone] Abby Vasquez MD Unavailable Abby Vasquez MD Unavailable Reason for Referral * Consultation (Routine: Next available opening) - Pending Review Specialty Diagnoses / Procedures Referred By Contgeovany t Referred To Contact Colon and Rectal Surgery Diagnoses Constipation, unspecified constipation type Abby Vasquez MD 909 [place] [address] Referral ID Status Reason Start Date Expiration Date V isits Requested Visits Authorized [id number] Pending Review 07/14/2023 07/13/2024 1 1 Question Answer Reason for Referral: Other My Clinical Question Is: constipation, failing medical management Special Concerns: None Scheduling Instructions: [employer] will call you to coordinate care as prescribed your provider. If you don? t hear from a metals sales representative within 2 business days, please call . Comments Please be aware that coverage of these services is subject to the terms and limitations of your health insurance plan. Call member services at your health plan with any benefit or coverage questions. [employer] will call you to coordinate care as prescribed your provider. If you don? t hear from a metals sales representative within 2 business days, please call . Reason for Visit * Reason Comments Follow Up Encounter Details Date Type Department Care Team (Latest Contact Info) Description 07/14/2023 10:00 AM CDT Office Visit [facility] [address] [address] Abby Vasquez MD [address] [place] [address] [phone] Irritable bowel syndrome with constipation (Primary Dx); [...] Sex Assigned at Female 10/31/2021 7:59 AM CONSTRUCTION SALES MANAGER Gender Identity Female 10/31/2021 7:59 AM CONSTRUCTION SALES MANAGER Sexual Orientation Straight 10/31/2021 7: 59 AM CONSTRUCTION SALES MANAGER documented as of this encounter Last [...] to contact me through our GI RN Lacing Operator, Sheri Edmonds, at . documented in this [...] any further questions. A total of 25 ngna-dc-aeya minutes was spent with this patient, >50% of which was counseling regarding the above delineated issues. An additional 25 minutes was spent on the date of the encounter doing chart review, documentation, and further activities as noted above. Abyb Vasquez MD [employer]atordistributed generation project manager Division of Gastroenterology, Hepatology and Nutrition [facility] HPI: Ms Latricia Hatch is a very pleasant 33 yo female with dysautonomia, frequent migraine HAs, chronic diffuse abdominal pain, constipation, nausea, and prior adenomatous polyp who returns to GI clinic forfollow-up of her constipation and nausea. She was previously seen by Dr. Dawson and Dr. Vasquez prior to moving to [place] in 2017 after getting . She moved back to [place] and was seen by Dr. Cadet in 02/2022 for chronic constipation, abdominal pain and nausea and this fiction and nonfiction prose writer on 08/19/2022. Her last visit with this fiction and nonfiction prose writer was 12/09/22 and she was most [...] sected. She subsequently had another colonoscopy in [place] which she reports was normal. In early 2021, she had a colonoscopy in [place] with a few small polyps removed - one was normal colon tissue and two were hyperplastic polyps. Recommended follow-up is for 2026 due to family history witha two-day prep. For treatment, she was started on Linzess around 2013 for chronic constipation which improved her constipation and resulted in BMs every other day. In 2016, she moved to [place] and stopped Linzessas she felt her constipation [...] st Contact Info) Description 10/26/2023 1:00 PM CONSTRUCTION SALES MANAGER Virtual Visit [facility] [address] [place] [address] Latricia Pettit PA-C [address] [place] [address] 10/28/2023 10:50 AM CONSTRUCTION SALES MANAGER Therapy Visit [facility] [address] [facility] [address] [place], [place] [address] Zain Quintana MD [address] [place] [address] 424915 Lainey Simon, JAY [address] [place] [address] 11/04/2023 10:50 AM CONSTRUCTION SALES MANAGER Therapy Visit [address] [address] Zain Quintana MD [address] [place] [address] Lainey Simon, PT [address] [place] [address] 11/17/2023 11:00 AM CONSTRUCTION SALES MANAGER Therapy Visit [address] [address] Lainey Simon, PT [address] [place] [address] 11/24/2023 10:40 AM CDT Office Visit [facility] [address] [phone] Abby Vasquez MD [address] [place] [address] 11/24/2023 1:30 PM CDT Therapy Visit [address] [address] Lainey Simon, PT [address] [place] [address] 12/01/2023 10:20 AM CDT Therapy Visit [address] [address] Lainey Simon, PT [address] [place] [address] 12/08/2023 10:20 AM CDT [facility] [address] [facility] [address] [place] [address] [place] [address] [place] [address] 01/13/2024 10:00 AM CDT Virtual Visit [facility] [place] [address] [facility] 3rd [place] [phone] Rosalba Pendleton, MAXIMILIANO GENETIC COORDINATOR 909 [facility] [id number] [place], [place] [address] 01/20/2024 8:00 PM CDT Therapy Visit [facility] [address] [phone] 03/14/2024 10:30 AM CDT Office Visit [facility] [address] [phone] Abhishek Acevedo PA-C [address] [phone] 03/21/2024 11:30 AM CDT Office Visit [facility] [address] 4th [place] [phone] Zain Quintana MD [address] [place] [address] 479265 Scheduled Referrals Name Type Priority Associated Diagnoses Orde r Schedule Adult Colorectal Surgery Pool Table Mechanic Referral Referral Routine: Next available opening Constipation, unspecified constipation type Expected: 07/14/2023 (Approximate), Expires: 07/14/2024 documented as of this encounter Visit Diagnoses Diagnosis Irritable bowel syndrome with constipation- Primary Irritable bowel syndrome Constipation, unspecified constipation type Pelvic floor dysfunction Pelvic muscle wasting documented in this encounter Additional Health Concerns Assessment Noted Time PHQ-9 Depression Total Score: 05/28/2 022 11:52 AM CDT documented as of this encounter Care Teams Manager Continuous Improvement Relationship Specialty Start Date End Date Monty Musa MD [facility] [address] [place] [address] PCP - General Family Medicine 08/13/21 Alfonso Tang [facility] [address] [place] [address] Family Practice 08/13/21 Dayanara Bee MD 420 [facility] 75 [place], [place] 164675 Pediatrics 12/26/14 Min Lange MD 420 [facility] 75 [place] [address] Neurology 03/30/16 Marlo Madsen MD [address] [place] [address] 508 [place] [address] Cardiology 10/27/16 Mel Buckley, RN Nurse Coordinator Physical Medicine and Rehabilitation 12/02/16 Douglas Cadet MD [address] [place] [address] Gastroenterology 08/13/21 Rosalba Pendleton APRN GENETIC COORDINATOR [address] [place], [place] [address] [place], [place] [address] Nurse Practitioner Neurology 09/05/21 Rosalba Pendleton APRN GENETIC COORDINATOR [address] [place] [address] [phone] Assigned Neuroscience Provider 11/09/21 Douglas Cadet MD [address] [place] [address] Assigned Gastroenterology Provider 03/14/22 09/03/23 Marlo Madsen MD [address] [place] [address] 508 [place] [address] Assigned Heart and Vascular Provider 03/14/22 Abby Vasquez MD [address] [place] [address] 554865 Gastroenterology 07/16/22 Abby Vasquez MD [address] [place] [address] [phone] Assigned PCP 09/26/22 10/06/23 documented as of this encounter
--- OUTSIDE RECORDS SUMMARY | 2023-10-25 14:13 | XMS_ITS | Encounter Summary ---
Author Name Unknown Organization [place] Address [address] [place] [address] Care Team Providers Care Emergency Room Registered Nurse Name Role Phone Monty Musa MD Primary Care Provider [phone] Alfonso Tang Unavailable Unavailable Dayanara Bee MD Unavailable [phone] Min Lange MD Unavailable Unavailable Marlo Madsen MD Unavailable [phone] Mel Buckley RN Unavailable [phone] Douglas Cadet MD Unavailable [phone] Rosalba Pendleton APRN MARINE STEAMFITTER Unavaila ble Rosalba Pendleton APRN MARINE STEAMFITTER Unavaila ble Douglas Cadet MD Unavailable [phone] Marlo Madsen MD Unavailable [phone] Abby Vasquez MD Unavailable Abby Vasquez MD Unavailable Airam Hodges PA-C Unavailable [phone] Zain Quintana MD Unavailable [phone] Latricia Pettit PA-C Unavailable [phone] Encounter Details Date Type Department Care Team (Late st Contact Info) Description 07/16/2023 MyC Medical Advice [facility] [address] [phone] Sheri Edmonds, RN Social History Tobacco Use Types Packs/Day [...] Sex Assigned at Female 10/31/2021 7:59 AM ENGRAVER TIRE MOLD Gender Identity Female 10/31/2021 7:59 AM ENGRAVER TIRE MOLD Sexual Orientation Straight 10/31/2021 7: 59 AM ENGRAVER TIRE MOLD documented as of this encounter Plan of Treatment Upcoming Encounters Date Type Department Care Team (Late st Contact Info) Description 10/26/2023 1:00 PM ENGRAVER TIRE MOLD Virtual Visit [facility] [address] [phone] Latricia Pettit PA-C [address] [place] [address] 770715 10/28/2023 10:50 AM ENGRAVER TIRE MOLD Therapy Visit [address] [address] Zain Quintana MD [address] [place] [address] Lainey Simon, PT [address] [place] [address] 00137 11/04/2023 10:50 AM ENGRAVER TIRE MOLD Therapy Visit [address] [address] Zain Quintana MD [address] [place] [address] Lainey Simon, PT [address] [place] [address] 51424 11/17/2023 11:00 AM ENGRAVER TIRE MOLD Therapy Visit [address] [address] Lainey Simon, PT [address] [place] [address] 63883 11/24/2023 10:40 AM CDT Office Visit [facility] [address] [phone] Abby Vasquez MD [address] [place] [address] 11/24/2023 1:30 PM CDT Therapy Visit [address] [address] Laniey Simon, PT [address] [place] [address] 12/01/2023 10:20 AM CDT Therapy Visit [address] [address] Lainey Simon, PT [address] [place] [address] 83054 12/08/2023 10:20 AM CDT Therapy Visit [address] [address] Lainey Simon, PT [address] [place] [address] 56454 01/13/2024 10:00 AM CDT Virtual Visit [facility] [address] 3rd [place] [phone] Rosalba Pendleton APRN MARINE STEAMFITTER [address] [place] [address] [id number] [place], [place] 996815 01/20/2024 8:00 PM CDT Therapy Visit [facility] [address] [address] 03/14/2024 10:30 AM CDT Office Visit [facility] [address] [phone] Abhishek Acevedo PA-C [address] [id number] 03/21/2024 11:30 AM CDT Office Visit [facility] [address] 4th [place] [phone] Zain Quintana MD [address] [place] [address] 850575 documented as of this encounter Visit Diagnoses Not on filedocumented in this encounter Additional Health Concerns Assessment Noted Time PHQ-9 Depression Total Score: 12 023 8:53 AM CDT documented as of this encounter Care Teams Emergency Room Registered Nurse Relationship Specialty Start Date End Date Monty Musa MD [facility] MEDICAL [facility] [address] [place] [address] PCP - General Family Medicine 08/13/21 Alfonso Tang [facility] MEDICAL [facility] [address] [place] [address] Family Practice 08/13/21 Dayanara Bee MD [address] 803635 Pediatrics 12/26/14 Min Lange MD [address] [address] Neurology 03/30/16 Marlo Madsen MD [address] [place] [address] [address] Cardiology 10/27/16 Mel Buckley, RN Nurse Coordinator Physical Medicine and Rehabilitation 12/02/16 Douglas Cadet MD [address] [place], [place] 739755 Gastroenterology 08/13/21 Rosalba Pendleton APRN MARINE STEAMFITTER [address] [place] [address] 897955 Nurse Practitioner Neurology 09/05/21 Rosalba Pendleton APRN MARINE STEAMFITTER [address] [place] [address] 40588 Assigned Neuroscience Provider 11/09/21 Douglas Cadet MD [address] [place], [place] 885425 Assigned Gastroenterology Provider 03/14/22 09/03/23 Marlo Madsen MD [address] 633845 Assigned Heart and Vascular Provider 03/14/22 Abby Vasquez MD 909 [place] [address] Gastroenterology 07/16/22 Abby Vasquez MD [address] [place] [address] Assigned PCP 09/26/22 10/06/23 Airam Hodges PA-C [address] [place], [place] 453105 Physician Plastic Molding Operator Surgery 07/19/23 Zain Quintana MD [address] [place] [address] Assigned Surgical Provider 10/07/23 Latricia Pettit PA-C [address] [place] [address] Assigned Gastroenterology Provider 10/15/23 documented as of this encounter
--- OUTSIDE RECORDS SUMMARY | 2023-10-25 14:13 | XMS_ITS | Encounter Summary ---
Author Name Unknown Organization [place] Address [address] [facility] [place] [address] Care Team Providers Care Slide Forming Machine Tender Name Role Phone Monty Musa MD Primary Care Provider [phone] Alfonso Tang Unavailable Unavailable Dayanara Bee MD Unavailable [phone] Min Lange MD Unavailable Unavailable Marlo Madsen MD Unavailable [phone] Mel Buckley RN Unavailable [phone] Douglas Cadet MD Unavailable [phone] Rosalba Pendleton APRN RAZOR SHARPENER Unavaila ble Rosalba Pendleton APRN RAZOR SHARPENER Unavaila ble Douglas Cadet MD Unavailable [phone] Marlo Madsen MD Unavailable [phone] Abby Vasquez MD Unavailable Abby Vasquez MD Unavailable Reason for Referral * Consultation (Routine: Next available opening) - Pending Review Specialty Diagnoses / Procedures Referred By Contgeovany t Referred To Contact Diagnoses History of sleep apnea Morning headache Insomnia, unspecified type Rosalba Pendleton APRN RAZOR SHARPENER [address] [place] [address] Referral ID Status Reason Start Date Expiration Date V isits Requested Visits Authorized [id number] Pending Review 07/15/2023 07/14/2024 1 1 Question Answer Reason for Referral: Sleep Apnea, Excessive Daytime Sleepiness, Insomnia Scheduling Instructions: [facility] will call you to coordinate your care as prescribed by your provider. If you don't hear from a call center support representative within 2 business days, please call [phone]. Additional Information: Former patient of Dr Sarkar. Patient would like to re-establish care with him for sleep apnea. Thank you Comments Please be aware that coverage of these services is subject to the terms and limitations of your health insurance plan. Call member services at your health plan with any benefit or coverage questions. [facility] will call you to coordinate your care as prescribed by your provider. If you don't hear from a call center support representative within 2 business days, please call [phone]. Reason for Visit * Reason Comments Video Visit Follow-up Encounter Details Date Type Department Care Team (Late st Contact Info) Description 07/15/2023 9:00 AM CDT Virtual Visit [facility] Neurology Clinic [address] [address] Rosalba Pendleton, MAXIMILIANO RAZOR SHARPENER [address] [place], [place] [id number] [address] Migraine without aura and without status migrainosus, [...] Sex Assigned at Female 10/31/2021 7:59 AM FARM EQUIPMENT MECHANIC APPRENTICE Gender Identity Female 10/31/2021 7:59 AM FARM EQUIPMENT MECHANIC APPRENTICE Sexual Orientation Straight 10/31/2021 7: 59 AM FARM EQUIPMENT MECHANIC APPRENTICE documented as of this encounter Patient Instructions [...] Dr Lange in 2016 -Was seen at [facility]- -last visit in January 2020, see notes [...] as noted above Rosalba Pendleton APRN, CNP [facility] Headache certified [facility] Neurology Clinic Video-Visit Details Type of service: Video Visit Originating Location (pt. Location): Home Distant Location (provider location): Off-site Platform used for Video Visit: Johana EQUIPMENT MECHANIC APPRENTICE documented in this encounter Nursing Notes * Raina Chowdhury - 07/15/2023 9:00 AM CDT Is the patient currently in the state of [place]? YES Visit mode:VIDEO If the visit is dropped, the patient can be reconnected by: TELEPHONE VISIT: Phone number: Telephone Information: Will anyone else be joining the visit? NO (If patient encounters technical issues they should call [phone] :[phone]) How would you like to obtain your AVS? MyChart Are changes needed to the allergy or medication list? Pt stated no med changes Reason for visit: Video Visit (Follow-up ) Raina Chowdhury VVF documented in this encounter Plan of Treatment Upcoming Encounters Date Type Department Care Team (Late st Contact Info) Description 10/26/2023 1:00 PM FARM EQUIPMENT MECHANIC APPRENTICE Virtual Visit [facility] Gastroenterology Clinic [address] [phone] Latricia Pettit PA-C [address] [place] [address] 10/28/2023 10:50 AM FARM EQUIPMENT MECHANIC APPRENTICE Therapy Visit [address] [address] Zain Quintana MD [address] [place] [address] Lainey Simon, PT [address] [place] [address] 11/04/2023 10:50 AM FARM EQUIPMENT MECHANIC APPRENTICE Therapy Visit [address] [address] Zain Quintana MD [address] [place] [address] Lainey Simon, PT [address] [place] [address] 11/17/2023 11:00 AM FARM EQUIPMENT MECHANIC APPRENTICE Therapy Visit [address] [address] Lainey Simon, PT [address] [place] [address] 11/24/2023 10:40 AM CDT Office Visit [facility] Gastroenterology Clinic [address] [phone] Abby Vasquez MD [address] [place] [address] 11/24/2023 1:30 PM CDT Therapy Visit [address] [address] Lainey Simon, PT [address] [place] [address] 12/01/2023 10:20 AM CDT Therapy Visit [address] [address] Lainey Simon, PT [address] [place] [address] 12/08/2023 10:20 AM CDT Therapy Visit [address] [address] Lainey Simon, PT [address] [place] [address] 01/13/2024 10:00 AM CDT Virtual Visit [facility] Neurology Clinic [address] 3rd [place] [phone] Rosalba Pendleton APRN RAZOR SHARPENER [address] [place] [address] [id number] [place] [address] 01/20/2024 8:00 PM CDT Therapy Visit [facility] Sleep [facility] [address] [place] [phone] 03/14/2024 10:30 AM CDT Office Visit [address] [phone] Abhishek Acevedo PA-C [address] [phone] 03/21/2024 11:30 AM CDT Office Visit [facility] Colon [facility] Surgery Clinic [address] 4th [place] [phone] Zain Quintana MD [address] [place] [address] 719585 Scheduled Referrals Name Type Priority Associated Diagnoses [...] documented as of this encounter Care Teams Slide Forming Machine Tender Relationship Specialty Start Date End Date Monty Musa MD [facility] [address] [place] [address] PCP - General Family Medicine 08/13/21 Alfonso Tang [facility] [address] [place] [address] Family Practice 08/13/21 Dayanara Bee MD 420 [facility] 75 [place], [place] 356955 Pediatrics 12/26/14 Min Lange MD 420 [facility] 75 [place] [address] Neurology 03/30/16 Marlo Madsen MD 420 [facility] 508 [place], [place] 367615 Cardiology 10/27/16 Mel Buckley, RN Nurse Coordinator Physical Medicine and Rehabilitation 12/02/16 Douglas Cadet MD 500 [place], [place] 394795 Gastroenterology 08/13/21 Rosalba Pendleton APRN RAZOR SHARPENER [address] [place], [place] [address]J [place], [place] [phone] Nurse Practitioner Neurology 09/05/21 Rosalba Pendleton APRN RAZOR SHARPENER [address] [id number] Assigned Neuroscience Provider 11/09/21 Douglas Cadet MD 500 [place], [place] 943635 Assigned Gastroenterology Provider 03/14/22 09/03/23 Marlo Madsen MD [address] [place] [address] 508 [place], [place] 512885 Assigned Heart and Vascular Provider 03/14/22 Abby Vasquez MD [address] [place] [address] 052515 Gastroenterology 07/16/22 Abby Vasquez MD [address] [place] [address] 821545 Assigned PCP 09/26/22 10/06/23 documented as of this encounter
--- OUTSIDE RECORDS SUMMARY | 2023-10-25 14:13 | XMS_ITS | Encounter Summary ---
Author Name Unknown Organization [place] Address [address] [facility] [place] [address] Care Team Providers Care President And Ceo Name Role Phone Monty Musa MD Primary Care Provider [phone] Alfonso Tang Unavailable Unavailable Dayanara Bee MD Unavailable [phone] Min Lange MD Unavailable Unavailable Marlo Madsen MD Unavailable [phone] Mel Buckley RN Unavailable [phone] Douglas Cadet MD Unavailable [phone] Rosalba Pendleton APRN TOY TRAINS AND ACCESSORIES SALESPERSON Unavaila ble Rosalba Pendleton APRN TOY TRAINS AND ACCESSORIES SALESPERSON Unavaila ble Douglas Cadet MD Unavailable [phone] Marlo Madsen MD Unavailable [phone] Abby [...] Sex Assigned at Female 10/31/2021 7:59 AM CABLE CUTTER AND SWAGER Gender Identity Female 10/31/2021 7:59 AM CABLE CUTTER AND SWAGER Sexual Orientation Straight 10/31/2021 7: 59 AM CABLE CUTTER AND SWAGER documented as of this encounter Plan of Treatment Upcoming Encounters Date Type Department Care Team (Late st Contact Info) Description 10/26/2023 1:00 PM CABLE CUTTER AND SWAGER Virtual Visit [facility] Gastroenterology Clinic [address] [place] [phone] Latricia Pettit PA-C [address] [place] [address] 10/28/2023 10:50 AM CABLE CUTTER AND SWAGER Therapy Visit [address] [address] Zain Quintana MD [address] [place] [address] Lainey Simon PT [address] [place] [address] 11/04/2023 10:50 AM CABLE CUTTER AND SWAGER Therapy Visit [address] [address] Zain Quintana MD [address] [place] [address] 682785 Lainey Simon PT [address] [place] [address] 11/17/2023 11:00 AM CABLE CUTTER AND SWAGER Therapy Visit [address] [address] [place] [address] [place] [address] 11/24/2023 10:40 AM CDT Office Visit [facility] Gastroenterology Clinic [address] 4th [place] [phone] Abby Vasquez MD [address] [place] [address] 11/24/2023 1:30 PM CDT Therapy Visit [address] [address] Lainey Simon, PT [address] [place] [address] 12/01/2023 10:20 AM CDT Therapy Visit [address] [address] Lainey Simon, PT [address] [place] [address] 28[address] 12/08/2023 10:20 AM CDT Therapy Visit [address] [address] Lainey Simon, PT [address] [place] [address] 01/13/2024 10:00 AM CDT Virtual Visit [facility] Neurology Clinic [address] [place] [phone] Rosalba Pendleton, MAXIMILIANO TOY TRAINS AND ACCESSORIES SALESPERSON 9[address] [id number] [place] [address] 01/20/2024 8:00 PM CDT Therapy Visit [facility] Sleep [facility] [address] [place] [address] [place] [phone] 03/14/2024 10:30 AM CDT Office Visit [facility] Sleep [facility] 6363 [facility] 103 [place] [phone] Abhishek Acevedo PA-C 6363 [facility] 103 [place] [address] 03/21/2024 11:30 AM CDT Office Visit [facility] Colon [facility]al Surgery Clinic [address] [place] [phone] Zain Quintana MD [address] [place] [address] [phone] documented as of this encounter Visit Diagnoses Not on filedocumented in this encounter Additional Health Concerns Assessment Noted Time PHQ-9 Depression Total Score: 11 022 11:52 AM CDT documented as of this encounter Care Teams President And Ceo Relationship Specialty Start Date End Date Monty Musa MD [facility] [address] [place] [address] PCP - General Family Medicine 08/13/21 Alfonso Tang [facility] [address] [place] [address] Family Practice 08/13/21 Dayanara Bee MD [address] 183945 Pediatrics 12/26/14 Min Lange MD 420 [facility] EMERGENCY [facility]PARTMENT 75 [place] [address] Neurology 03/30/16 Marlo Madsen MD [address] [place] [address] Cardiology 10/27/16 Mel Buckley, RN Nurse Coordinator Physical Medicine and Rehabilitation 12/02/16 Douglas Cadet MD 500 [place] [address] Gastroenterology 08/13/21 Rosalba Pendleton APRN TOY TRAINS AND ACCESSORIES SALESPERSON [address] [place] [address] 667105 Nurse Practitioner Neurology 09/05/21 Rosalba Pendleton APRN TOY TRAINS AND ACCESSORIES SALESPERSON [address] [place] [address] Assigned Neuroscience Provider 11/09/21 Douglas Cadet MD 500 [place] [address] Assigned Gastroenterology Provider 03/14/22 09/03/23 Marlo Madsen MD [address] [place] [address] Assigned Heart and Vascular Provider 03/14/22 Abby Vasquez MD [address] [place] [address] 651985 Gastroenterology 07/16/22 Abby Vasquez MD [address] [place] [address]704 Assigned PCP 09/26/22 10/06/23 documented as of this encounter
--- OUTSIDE RECORDS SUMMARY | 2023-10-25 14:13 | XMS_ITS | Encounter Summary ---
Author Name Unknown Organization [place] Address [address] [facility] [place] [address] Care Team Providers Care Residential Support Specialist Name Role Phone Monty Musa MD Primary Care Provider [phone] Alfonso Tang Unavailable Unavailable Dayanara Bee MD Unavailable [phone] Min Lange MD Unavailable Unavailable Marlo Madsen MD Unavailable [phone] Mel Buckley RN Unavailable [phone] Douglas Cadet MD Unavailable [phone] Rosalba Pendleton APRN SALES RECRUITMENT SPECIALIST Unavaila ble Rosalba Pendleton APRN SALES RECRUITMENT SPECIALIST Unavaila ble Douglas Cadet MD Unavailable [phone] Marlo Madsen MD Unavailable [phone] Abby Vasquez MD Unavailable Abby Vasquez MD Unavailable Reason for Visit * Reason Onset Date Comments Clinic Care Coordination - Follow-up 07/15/2023 Encounter Details Date Type Department Care Team (Late st Contact Info) Description 07/15/[address] [facility] Neurology [facility] [address] [place] [phone] Rosalba Pendleton APRN SALES RECRUITMENT SPECIALIST [address] [place] [address] [id number] [place] [address] Clinic Care Coordination - Follow-up Social History [...] Assigned at Female 10/31/2021 7:59 AM PROJECT MANAGER FINANCE Gender Identity Female 10/31/2021 7:59 AM PROJECT MANAGER FINANCE Sexual Orientation Straight 10/31/2021 7: 59 AM PROJECT MANAGER FINANCE documented as of this encounter Plan of Treatment Upcoming Encounters Date Type Department Care Team (Late st Contact Info) Description 10/26/2023 1:00 PM PROJECT MANAGER FINANCE Virtual Visit [facility] Gastroenterology Clinic [address] [phone] Latricia Pettit PA-C [address] [place] [address] 10/28/2023 10:50 AM PROJECT MANAGER FINANCE Therapy Visit [address] [address] Zain Quintana MD [address] [place] [address] [place] [address] [place] [address] 137577 11/04/2023 10:50 AM PROJECT MANAGER FINANCE Therapy Visit [address] 834997 Zain Quintana MD [address] [place] [address] Lainey Simon, PT [address] [place] [address] 11/17/2023 11:00 AM PROJECT MANAGER FINANCE Therapy Visit [address] [address] Lainey Simon, PT [address] [place] [address] 11/24/2023 10:40 AM CDT Office Visit [facility] Gastroenterology Clinic [address] [phone] Abby Vasquez MD [address] [place] [address] 11/24/2023 1:30 PM CDT Therapy Visit [address] [address] Lainey Simon, PT [address] [place] [address] 12/01/2023 10:20 AM CDT Therapy Visit [address] [address] Lainey Simon, PT [address] [place] [address] 12/08/2023 10:20 AM CDT Therapy Visit [address] [address] Lainey Simon, PT [address] [place] [address] 01/13/2024 10:00 AM CDT Virtual Visit [facility] Neurology Clinic [address] 3rd [place] [phone] Rosalba Pendleton, CLINICAL LAB TECHNOLOGIST SALES RECRUITMENT SPECIALIST [address] [place] [address] [id number] [place] [address] 01/20/2024 8:00 PM CDT Therapy Visit [facility] Sleep [facility] [address] [phone] 03/14/2024 10:30 AM CDT Office Visit [facility] Sleep [facility] [address] [phone] Abhishek Acevedo PA-C [address] [address] 03/21/2024 11:30 AM CDT Office Visit [facility] Colon and Rectal Surgery Clinic [address] [place] [phone] Zain Quintana MD [address] [place] [address] 673135 documented as of this encounter Visit Diagnoses Not on filedocumented in this encounter Additional Health Concerns Assessment Noted Time PHQ-9 Depression Total Score: 12 023 8:53 AM CDT documented as of this encounter Care Teams Residential Support Specialist Relationship Specialty Start Date End Date Monty Musa MD [facility] EMERGENCY DEPARTMENT [address] [place] [address] PCP - General Family Medicine 08/13/21 Alfonso Tang [facility] MEDICAL [facility] [address] [place] [address] [facility] Practice 08/13/21 Dayanara Bee MD [address] 386425 Pediatrics 12/26/14 Min Lange MD [address] [address] Neurology 03/30/16 Marlo Madsen MD [address] [place] [address] 758255 Cardiology 10/27/16 Mel Buckley, RN Nurse Coordinator Physical Medicine and Rehabilitation 12/02/16 Douglas Cadet MD 500 [place] [address] Gastroenterology 08/13/21 Rosalba Pendleton APRN SALES RECRUITMENT SPECIALIST [address] [place] [address] 348185 Nurse Practitioner Neurology 09/05/21 Rosalba Pendleton APRN SALES RECRUITMENT SPECIALIST [address] [place] [address] Assigned Neuroscience Provider 11/09/21 Douglas Cadet MD 500 [place], [place] 351695 Assigned Gastroenterology Provider 03/14/22 09/03/23 Marlo Madsen MD [address] 501935 Assigned Heart and Vascular Provider 03/14/22 Abby Vasquez MD 909 [place] [address] Gastroenterology 07/16/22 Abby Vasquez MD 909 [place] [address] Assigned PCP 09/26/22 10/06/23 documented as of this encounter
--- OUTSIDE RECORDS SUMMARY | 2023-10-25 14:13 | XMS_ITS | Encounter Summary ---
Author Name Unknown Organization [facility] Address [address] [facility] [place] [address] Care Team Providers Care Service Aide Name Role Phone Monty Musa MD Primary Care Provider [phone] Alfonso Tang Unavailable Unavailable Dayanara Bee MD Unavailable [phone] Min Lange MD Unavailable Unavailable Marlo Madsen MD Unavailable [phone] Mel Buckley RN Unavailable [phone] Douglas Cadet MD Unavailable [phone] Rosalba Pendleton APRN PORTABLE TRACK LINE MARKER Unavaila ble Rosalba Pendleton APRN PORTABLE TRACK LINE MARKER Unavaila ble Douglas Cadet MD Unavailable [phone] Marlo Madsen MD Unavailable [phone] Abby Vasquez MD Unavailable Abby Vasquez [...] Sex Assigned at Female 10/31/2021 7:59 AM LUMBER PRESS OPERATOR Gender Identity Female 10/31/2021 7:59 AM LUMBER PRESS OPERATOR Sexual Orientation Straight 10/31/2021 7: 59 AM LUMBER PRESS OPERATOR documented as of this encounter Plan of Treatment Upcoming Encounters Date Type Department Care Team (Late st Contact Info) Description 10/26/2023 1:00 PM LUMBER PRESS OPERATOR Virtual Visit [facility] [address] [place] [phone] Latricia Pettit PA-C [address] [place] [address] 10/28/2023 10:50 AM LUMBER PRESS OPERATOR Therapy Visit [address] [address] Zain Quintana MD [address] [place] [address] Lainey Simon PT [address] [place] [address] 11/04/2023 10:50 AM LUMBER PRESS OPERATOR Therapy Visit [address] [address] Zain Quintana MD [address] [place] [address] 356295 Lainey Simon PT [address] [place] [address] 11/17/2023 11:00 AM LUMBER PRESS OPERATOR Therapy Visit [address] [address] [place] [address] [place] [address] 11/24/2023 10:40 AM CDT Office Visit [facility] [address] 4th [place] [phone] Abby Vasquez MD [address] [place] [address] 11/24/2023 1:30 PM CDT Therapy Visit [address] [address] Lainey Simon, PT [address] [place] [address] 12/01/2023 10:20 AM CDT Therapy Visit [address] [address] Lainey Simon, PT [address] [place] [address] 12/08/2023 10:20 AM CDT Therapy Visit [address] [address] Lainey Simon, PT [address] [place] [address] 01/13/2024 10:00 AM CDT Virtual Visit [facility] Neurology [facility] [address] [place] [phone] Rosalba Pendleton, MAXIMILIANO PORTABLE TRACK LINE MARKER [address] [facility] [id number] [place] [address] 01/20/2024 8:00 PM CDT Therapy Visit [facility] Sleep [facility] [address] [address] [place] [phone] 03/14/2024 10:30 AM CDT Office Visit [facility] Sleep [facility] 6363 [facility] [address] [place] [phone] Abhishek Acevedo PA-C 6363 [facility] 103 [place] [address] 03/21/2024 11:30 AM CDT Office Visit [facility] [address] [place] [phone] Zain Quintana MD [address] [place] [address] [phone] documented as of this encounter Visit Diagnoses Not on filedocumented in this encounter Additional Health Concerns Assessment Noted Time PHQ-9 Depression Total Score: 11 022 11:52 AM CDT documented as of this encounter Care Teams Service Aide Relationship Specialty Start Date End Date Monty Musa MD [facility] [address] [place] [address] PCP - General Family Medicine 08/13/21 Alfonso Tang [facility] [address] [place] [address] Family Practice 08/13/21 Dayanara Bee MD [address] 503[address] Pediatrics 12/26/14 Min Lange MD 420 [facility] 75 [place] [address] Neurology 03/30/16 Marlo Madsen MD [address] [place] [address] Cardiology 10/27/16 Mel Buckley, RN Nurse Coordinator Physical Medicine and Rehabilitation 12/02/16 Douglas aCdet MD [address] [place] [address] Gastroenterology 08/13/21 Rosalba Pendleton APRN PORTABLE TRACK LINE MARKER [address] [place] [address] [phone] Nurse Practitioner Neurology 09/05/21 Rosalba Pendleton APRN PORTABLE TRACK LINE MARKER [address] [place] [address] Assigned Neuroscience Provider 11/09/21 Douglas Cadet MD [address] [place] [address] Assigned Gastroenterology Provider 03/14/22 09/03/23 Marlo Madsen MD [address] [place] [address] Assigned Heart and Vascular Provider 03/14/22 Abby Vasquez MD [address] [place] [address] 467135 Gastroenterology 07/16/22 Abby Vasquez MD [address] [place] [address] Assigned PCP 09/26/22 10/06/23 documented as of this encounter
--- OUTSIDE RECORDS SUMMARY | 2023-10-25 14:14 | XMS_ITS | Encounter Summary ---
Author Name Unknown Organization [facility] Address [address] [place] [address] Care Team Providers Care Welder Apprentice Arc Name Role Phone Monty Musa MD Primary Care Provider [phone] Alfonso Tang Unavailable Unavailable Dayanara Bee MD Unavailable [phone] Min Lange MD Unavailable Unavailable Marlo Madsen MD Unavailable [phone] Mel Buckley RN Unavailable [phone] Douglas Cadet MD Unavailable [phone] Rosalba Pendleton APRN TELEPHONE REPAIRER Unavaila ble Rosalba Pendleton APRN TELEPHONE REPAIRER Unavaila ble Douglas Cadet MD Unavailable [phone] Marlo Madsen MD Unavailable [phone] Abby Vasquez MD Unavailable Abby Vasquez [...] Sex Assigned at Female 10/31/2021 7:59 AM MACHINE PRECISION ENGRAVER Gender Identity Female 10/31/2021 7:59 AM MACHINE PRECISION ENGRAVER Sexual Orientation Straight 10/31/2021 7: 59 AM MACHINE PRECISION ENGRAVER documented as of this encounter Plan of Treatment Upcoming Encounters Date Type Department Care Team (Late st Contact Info) Description 10/26/2023 1:00 PM MACHINE PRECISION ENGRAVER Virtual Visit [facility] Gastroenterology Clinic [address] [place] [phone] Latricia Pettit PA-C [address] [place] [address] 10/28/2023 10:50 AM MACHINE PRECISION ENGRAVER Therapy Visit [address] [address] Zain Quintana MD [address] [place] [address] Lainey Simon PT [address] [place] [address] 11/04/2023 10:50 AM MACHINE PRECISION ENGRAVER Therapy Visit [address] [address] Zain Quintana MD [address] [place] [address] 078195 Lainey Simon PT [address] [place] [address] 11/17/2023 11:00 AM MACHINE PRECISION ENGRAVER Therapy Visit [address] [address] [place] [address] [place] [address] 11/24/2023 10:40 AM CDT Office Visit [facility] Gastroenterology Clinic [address] 4th [place] [phone] Abby Vasquez MD [address] [place] [address] 11/24/2023 1:30 PM CDT Therapy Visit [address] [address] Lainey Simon, PT [address] [place] [address] 12/01/2023 10:20 AM CDT Therapy Visit [address] [address] Lainey Simon, PT [address] [place] [address] 12/08/2023 10:20 AM CDT Therapy Visit [address] [address] Lainey Simon, PT [address] [place] [address] 01/13/2024 10:00 AM CDT Virtual Visit [facility] Neurology Clinic [address] [place] [phone] Rosalba Pendleton, MAXIMILIANO TELEPHONE REPAIRER [address] [place] [id number] [place] [address] 01/20/2024 8:00 PM CDT Therapy Visit [facility] Sleep [facility] [address] [address] [place] [phone] 03/14/2024 10:30 AM CDT Office Visit [facility] Sleep [facility] 6363 [facility] 103 [place] [phone] Abhishek Acevedo PA-C 6363 [facility] 103 [place] [address] 03/21/2024 11:30 AM CDT Office Visit [facility]al [facility] [address] [place] [phone] Zain Quintana MD [address] [place] [address] [phone] documented as of this encounter Visit Diagnoses Not on filedocumented in this encounter Additional Health Concerns Assessment Noted Time PHQ-9 Depression Total Score: 11 022 11:52 AM CDT documented as of this encounter Care Teams Welder Apprentice Arc Relationship Specialty Start Date End Date Monty Musa MD [facility] [address] [place] [address] PCP - General Family Medicine 08/13/21 Alfonso Tang [facility] [address] [place] [address] Family Practice 08/13/21 Dayanara Bee MD [address] 539[address] Pediatrics 12/26/14 Min Lange MD 420 [facility] 75 [place] [address] Neurology 03/30/16 Marlo Madsen MD [address] [place] [address] Cardiology 10/27/16 Mel Buckley, RN Nurse Coordinator Physical Medicine and Rehabilitation 12/02/16 Douglas Cadet MD 500 [place] [address] Gastroenterology 08/13/21 Rosalba Pendleton APRN TELEPHONE REPAIRER [address] [place] [address] [phone] Nurse Practitioner Neurology 09/05/21 Rosalba Pendleton APRN TELEPHONE REPAIRER [address] [place] [address] Assigned Neuroscience Provider 11/09/21 Douglas Cadet MD 500 [place] [address] Assigned Gastroenterology Provider 03/14/22 09/03/23 Marlo Madsen MD [address] [place] [address] Assigned Heart and Vascular Provider 03/14/22 Abby Vasquez MD [address] [place] [address] [phone] Gastroenterology 07/16/22 Abby Vasquez MD [address] [place] [address] Assigned PCP 09/26/22 10/06/23 documented as of this encounter
--- OUTSIDE RECORDS SUMMARY | 2023-10-25 14:14 | XMS_ITS | Encounter Summary ---
Author Name Unknown Organization [facility] Address [address] [facility] [place] [address] Care Team Providers Care Photocomposing Machine Operator Name Role Phone Monty Musa MD Primary Care Provider [phone] Alfonso Tang Unavailable Unavailable Dayanara Bee MD Unavailable [phone] Min Lange MD Unavailable Unavailable Marlo Madsen MD Unavailable [phone] Mel Buckley RN Unavailable [phone] Douglas Cadet MD Unavailable [phone] Rosalba Pendleton APRN PATIENT INSURANCE CLERK Unavaila ble Rosalba Pendleton APRN PATIENT INSURANCE CLERK Unavaila ble Douglas Cadet MD Unavailable [phone] Marlo Madsen MD Unavailable [phone] Abby Vasquez MD Unavailable Abby Vasquez MD Unavailable Encounter Details Date Type Department Care Team (Late st Contact Info) Description 06/28/2023 [facility] [place] [address] [facility] [address] 4th [place] [address] Vivian Carter Social History Tobacco [...] at Female 10/31/2021 7:59 AM DIRECTOR OF GRADUATE ADMISSIONS Gender Identity Female 10/31/2021 7:59 AM DIRECTOR OF GRADUATE ADMISSIONS Sexual Orientation Straight 10/31/2021 7: 59 AM DIRECTOR OF GRADUATE ADMISSIONS documented as of this encounter Miscellaneous Notes [...] (video or telephone)you need to be in [place] for the visit. To reschedule or cancel patient to call [phone]. Vivian Carter documented in this encounter Plan of Treatment Upcoming Encounters Date Type Department Care Team (Late st Contact Info) Description 10/26/2023 1:00 PM DIRECTOR OF GRADUATE ADMISSIONS Virtual Visit [facility] Gastroenterology [facility] [address] [place] [address] Latricia Pettit PA-C [address] [place] [address] 10/28/2023 10:50 AM DIRECTOR OF GRADUATE ADMISSIONS Therapy Visit [facility] Rehabilitation Services [facility] [address] [facility] [address] [place], [place] 452737 Zain Quintana MD [address] [place] [address] [phone] Lainey Simon, PT [address] [place] [address] 11/04/2023 10:50 AM DIRECTOR OF GRADUATE ADMISSIONS Therapy Visit [address] [address] Zain Quintana MD [address] [place] [address] Lainey Simon, PT [address] [place] [address] 11/17/2023 11:00 AM DIRECTOR OF GRADUATE ADMISSIONS Therapy Visit [address] [address] Lainey Simon, PT [address] [place] [address] 11/24/2023 10:40 AM CDT Office Visit [facility] Gastroenterology Clinic [address] [phone] Abby Vasquez MD [address] [place] [address] 11/24/2023 1:30 PM CDT Therapy Visit [address] [address] Lainey Simon, PT [address] [place] [address] 12/01/2023 10:20 AM CDT Therapy Visit [address] [address] Lainey Simon, PT [address] [place] [address] 12/08/2023 10:20 AM CDT Therapy Visit [facility] Rehabilitation Services [facility] [address] [facility] [address] [place] [address] [place] [address] [place], [place] 181067 01/13/2024 10:00 AM CDT Virtual Visit [facility] Neurology Clinic [address] 3rd [place] [phone] Rosalba Pendleton APRN [address] [id number] [place] [address] 01/20/2024 8:00 PM CDT Therapy Visit [facility] Sleep [address] [phone] 03/14/2024 10:30 AM CDT Office Visit [address] [phone] Abhishek Acevedo PA-C 6363 [facility] 103 [place] [address] 03/21/2024 11:30 AM CDT Office Visit [facility] [address] 4th [place] [phone] Zain Quintana MD [address] [place] [address] 100235 documented as of this encounter Visit Diagnoses Not on filedocumented in this encounter Additional Health Concerns Assessment Noted Time PHQ-9 Depression Total Score: 11 05/28/2 022 11:52 AM CDT documented as of this encounter Care Teams Photocomposing Machine Operator Relationship Specialty Start Date End Date Monty Musa MD [facility] [address] [place] [address] PCP - General Family Medicine 08/13/21 Alfonso Tang [facility] [address] [place] [address] Family Practice 08/13/21 Dayanara Bee MD 420 [facility] 75 [place] [address] Pediatrics 12/26/14 Min Lange MD 420 [facility] 75 [place] [address] Neurology 03/30/16 Marlo Madsen MD 420 [facility] 508 [place], [place] 492985 Cardiology 10/27/16 Mel Buckley, RN Nurse Coordinator Physical Medicine and Rehabilitation 12/02/16 Douglas Cadet MD [address] [place] [address] 634705 Gastroenterology 08/13/21 Rosalba Pendleton APRN PATIENT INSURANCE CLERK [address] [place] [address] Nurse Practitioner Neurology 09/05/21 Rosalba Pendleton APRN PATIENT INSURANCE CLERK [address] 625025 Assigned Neuroscience Provider 11/09/21 Douglas Cadet MD 500 [place] [address] Assigned Gastroenterology Provider 03/14/22 09/03/23 Marlo Madsen MD [address] [place] [address] 508 [place] [address] Assigned Heart and Vascular Provider 03/14/22 Abby Vasquez MD [address] [place] [address] Gastroenterology 07/16/22 Abby Vasquez MD [address] [place] [address] Assigned PCP 09/26/22 10/06/23 documented as of this encounter
--- OUTSIDE RECORDS SUMMARY | 2023-10-25 14:14 | XMS_ITS | Encounter Summary ---
Author Name Unknown Organization [place] Address [address] [place] [address] Care Team Providers Care Unit Secy Name Role Phone Monty Musa MD Primary Care Provider [phone] Alfonso Tang Unavailable Unavailable Dayanara Bee MD Unavailable [phone] Min Lange MD Unavailable Unavailable Marlo Madsen MD Unavailable [phone] Mel Buckley RN Unavailable [phone] Douglas Cadet MD Unavailable [phone] Rosalba Pendleton APRN CHECK PROCESSING CLERK Unavaila ble Rosalba Pendleton APRN CHECK PROCESSING CLERK Unavaila ble Douglas Cadet MD Unavailable [phone] Marlo Madsen MD Unavailable [phone] Abby Vasquez MD Unavailable Abby Vasquez MD Unavailable Reason for Visit * Reason Comments Abdominal Pain Encounter Details Date Type Department Care Team (Late st Contact Info) Description 07/09/2023 1:34 PM CDT - 07/09/2023 6:47 PM CDT Emergency [facility] Emergency Dept [address] [place] [address] Ashly Colvin DO [facility] [address] [place] [address] Abdominal pain, unspecified abdominal location Discharge Disposition: [...] Sex Assigned at Female 10/31/2021 7:59 AM BRANCH OFFICE ADMINISTRATOR Gender Identity Female 10/31/2021 7:59 AM BRANCH OFFICE ADMINISTRATOR Sexual Orientation Straight 10/31/2021 7: 59 AM BRANCH OFFICE ADMINISTRATOR documented as of this encounter Last [...] in the amount of wet diapers/urine. Your or child starts to have dry mouth [...] directed by your provider today. Before using [id number] medications, ask your provider and make sure [...] sent through Care Everywhere. * Abdominal Pain (Uruguayan) documented in this encounter Medications at Time [...] 50 mg by mouth daily 0 01/07/2022 midodrine (PROAMATINE) 5 MG tabletIndications:Syn cope and [...] as needed 21 capsule 0 07/09/2023 07/16/2023 Magnesium Oxide -Mg Supplement 500 MG TABSIndications:Chron ic idiopathic constipation,Chronic abdominal pain Take 1 tablet (500 mg) by mouth daily for 180 days 120 tablet 1 04/23/2023 10/20/2023 linaclotide (LINZESS) 290 MCG capsuleIndications:Ir ritable bowel syndrome with constipation Take 1 capsule (290 mcg) by mouth every morning before breakfast 90 capsule 3 05/19/2023 09/15/2023 documented as of this encounter ED Notes * Aslhy Colvin DO - 07/09/2023 1:39 PM CDT [...] insufflation (N/A) Appendectomy Breast surgery Orthopedic surgery [facility] exploratory of abdomen Physical Exam Patient Vitals [...] Bilirubin Urine Negative Ketones Urine Negative Specific Pike Urine 1.005 Blood Urine Negative pH Urine [...] st Contact Info) Description 10/26/2023 1:00 PM BRANCH OFFICE ADMINISTRATOR Virtual Visit [facility] Gastroenterology Clinic [address] [phone] Latricia Pettit PA-C [address] [place] [address] 10/28/2023 10:50 AM BRANCH OFFICE ADMINISTRATOR Therapy Visit [address] [address] Zain Quintana MD [address] [place] [address] Lainey Simon, JAY [address] [place] [address] 11/04/2023 10:50 AM BRANCH OFFICE ADMINISTRATOR Therapy Visit [address] [address] Zain Quintana MD [address] [place] [address] 838225 Lainey Simon PT [address] [place] [address] 11/17/2023 11:00 AM BRANCH OFFICE ADMINISTRATOR Therapy Visit [address] [address] Lainey Simon, PT [address] [place] [address] 11/24/2023 10:40 AM CDT Office Visit [facility]ology Clinic [address]th [place] [phone] Abby Vasquez MD [address] [place] [address] [phone] 11/24/2023 1:30 PM CDT Therapy Visit [address] [address] Lainey Simon, PT [address] [place] [address] 12/01/2023 10:20 AM CDT Therapy Visit [address] [address] Lainey Simon, PT [address] [place] [address] 12/08/2023 10:20 AM CDT Therapy Visit [address] [address] Lainey Simon, PT [address] [place] [address] 01/13/2024 10:00 AM CDT Virtual Visit [facility] Neurology Clinic [address]rd [place] [phone] Rosalba Pendleton, BATCH UNLOADER CHECK PROCESSING CLERK [address] [facility] [id number] [place] [address] 01/20/2024 8:00 PM CDT Therapy Visit [facility] [address] [facility] [address] [phone] 03/14/2024 10:30 AM CDT Office Visit [facility] [address] [facility] [address] [phone] Abhishek Acevedo PA-C [address] [facility] [address] [phone] 03/21/2024 11:30 AM CDT Office Visit [facility]al Surgery Clinic [address] 4th [place] [phone] Zain Quintana MD [address] [place] [address] documented as of this encounter Procedures Procedure [...] EXAM: CT ABDOMEN PELVIS W CONTRAST LOCATION: [facility] DATE: 07/09/2023 INDICATION: r o SBO. [...] EXAM: CT ABDOMEN PELVIS W CONTRAST LOCATION: [facility] DATE: 07/09/2023 INDICATION: r o SBO. [...] testing is available if warranted by ordering [id number], HCG Quantitative . Urine URINE SPECIMEN OBTAINED BY CLEAN CATCH PROCEDURE / Unknown Non-blood Collection / Unknown 07/09/2023 3:47 PM CDT 07/09/2023 3:57 PM CDT Ashly Colvin DO LAB - URINE ORDERABL ES [facility] Acute Care Lab [address] [facility] Lab (1st floor, no room number) [place] [address], [facility] [phone] * (ABNORMAL) UA with Microscopic reflex to [...] mg/dL 07/09/2023 4:23 PM CDT LABORATORY Specific Pike Urine 1.005 1.003 - 1.035 07/09/2023 4:23 [...] DO LAB - URINE ORDERABL ES LABORATORY [facility] Acute Care Lab [address] Lab (1st floor, no room number) [place] [address], [facility] [phone] * HCG QUALitative (blood) (07/09/2023 1:44 PM CDT) hCG Serum Qualitative Negative Negative GADIEL 07/09/2023 4:05 PM CDT [facility] Comment:This test is for scr eening purposes. Results should be interpreted along with the clinical picture. Confirmation testing is available if warranted by ordering [id number], HCG Quantitative . Blood BLOOD SPECIMEN / Unknown Venipuncture / Unknown 07/09/2023 1:44 PM CDT 07/09/2023 1:54 PM CDT Ashly Colvin DO LAB - BLOOD ORDERABL ES Performing Organization Address City/[facility]/ZIP Co de Phone Number [facility] [address] Lab (1st floor, no room number) [place] [phone], [facility] [phone] * Extra Red Top Tube (07/09/2023 1:44 PM CDT) Hold Specimen [facility] 07/09/2023 3:01 PM CDT [facility] Blood BLOOD SPECIMEN / Unknown Venipuncture / Unknown 07/09/2023 1:44 PM CDT 07/09/2023 1:54 PM CDT Ashly Colvin DO LAB - BLOOD ORDERABL ES Performing Organization Address [facility]/ZIP Co de Phone Number [facility] [address] Lab (1st floor, no room number) [place] [address], [facility] [phone] * Extra Blue Top Tube (07/09/2023 1:44 PM CDT) Hold Specimen [facility] 07/09/2023 3:01 PM CDT [facility] Blood BLOOD SPECIMEN / Unknown Venipuncture / Unknown 07/09/2023 1:44 PM CDT 07/09/2023 1:54 PM CDT Ashly Colvin DO LAB - BLOOD ORDERABL ES Performing Organization Address [facility]/ZIP Co de Phone Number [facility] Care Lab [address] Lab (1st floor, no room number) [place] [address], [facility] [phone] * CBC with platelets and differential (07/09/2023 [...] Colvin DO LAB - BLOOD ORDERABL ES [facility] [address] Lab (1st floor, no room number) [place] [address], [facility] [phone] * Magnesium (07/09/2023 1:44 PM CDT) Magnesium 2.3 1.7 - 2.3 mg/dL 07/09/2023 2:16 PM CDT [facility] Blood BLOOD SPECIMEN / Unknown Venipuncture / Unknown 07/09/2023 1:44 PM CDT 07/09/2023 1:54 PM CDT Ashly Colvin DO LAB - BLOOD ORDERABL ES Performing Organization Address City/[facility]/ZIP Co de Phone Number [facility] [address] Lab (1st floor, no room number) [place] [address], [facility] [phone] * Lipase (07/09/2023 1:44 PM CDT) Lipase 30 13 - 60 U/L 07/09/2023 2:16 PM CDT [facility] Blood BLOOD SPECIMEN / Unknown Venipuncture / Unknown 07/09/2023 1:44 PM CDT 07/09/2023 1:54 PM CDT Ashly Colvin DO LAB - BLOOD ORDERABL ES [facility] Care Lab [address] Lab (1st floor, no room number) [place] [address], [facility] [phone] * Comprehensive metabolic panel (07/09/2023 1:44 PM CDT) [facility] Sodium 135 135 - 145 mmol/L 07/09/2023 [...] - 5.3 mmol/L 07/09/2023 2:16 PM CDT [facility] Carbon Dioxide (CO2) 27 22 - [...] DO LAB - BLOOD ORDERABL ES LABORATORY [facility] Acute Care Lab [address] Lab (1st floor, no room number) [place] [address] [phone] documented in this encounter Visit Diagnoses Diagnosis [...] scan. 1625 ($Given - Provi sofia: Kristina Celestine Vu) dicyclomine (BENTYL) capsule 10 mg (COMPLETED) 10 mg, Oral, ONCE, On Wed07/09/23 at 1730, For 1 dose, Recommended to take before meals. 1734 ($Given - Provi sofia: Sue Webb RN) iopamidol (ISOVUE-370) solution 500 mL (COMPLETED) 500 mL, Intravenous, ONCE, On Wed07/09/23 at 1625, For 1 dose 1625 ($Given - Provi sofia: Kristina A Horace) morphine (PF) injection 4 mg (COMPLETED) 4 mg, Intravenous, ONCE, On Wed07/09/23 at 1640, For 1 dose 1651 ($Given - Provi sofia: Sue Webb RN) ondansetron (ZOFRAN) injection 4 mg (COMPLETED) 4 mg, Intravenous, ONCE, Administer over 2-5 Minutes, On Wed07/09/23 at 1630, For 1 dose, Irritant. 1635 ($Given - Provi sofia: Sue Webb RN) sodium chloride 0.9% BOLUS 1,000 mL (COMPLETED) Intravenous, 1,000 mL, ONCE, at 1,000 mL/hr, Administer over 1 Hours, On Wed07/09/23 at 1630, For 1 dose 1635 ($New Bag - Pro vider: Sue Webb RN)1748 (Stopped - Provider: Sue Webb RN) documented in this encounter Additional Health Concerns Assessment Noted Time PHQ-9 Depression Total Score: 11 022 11:52 AM CDT documented as of this encounter Care Teams Unit Secy Relationship Specialty Start Date End Date Monty Musa MD [facility] [address] [place] [address] PCP - General Family Medicine 08/13/21 Alfonso Tang [facility] [address] [place] [address] Family Practice 08/13/21 Dayanara Bee MD [address] [facility] 75 [place] [address] Pediatrics 12/26/14 Min Lange MD 420 [facility] 75 [place] [address] Neurology 03/30/16 Marlo Madsen MD [address] [facility] 508 [place] [address] Cardiology 10/27/16 Mel Buckley, RN Nurse Coordinator Physical Medicine and Rehabilitation 12/02/16 Douglas Cadet MD 500 [place], [place] 8[address] Gastroenterology 08/13/21 Rosalba Pendleton APRN CHECK PROCESSING CLERK [address] [place] [address] [address] Nurse Practitioner Neurology 09/05/21 Rosalba Pendleton APRN CHECK PROCESSING CLERK [address] [place] [address] [id number] [place] [address] Assigned Neuroscience Provider 11/09/21 Douglas aCdet MD [address] [place] [address] Assigned Gastroenterology Provider 03/14/22 09/03/23 Marlo Madsen MD [address] [place] [address] 508 [place] [address] Assigned Heart and Vascular Provider 03/14/22 Abby Vasquez MD [address] [place] [address] Gastroenterology 07/16/22 Abby Vasquez MD [address] [place] [address] Assigned PCP 09/26/22 10/06/23 documented as of this encounter
--- OUTSIDE RECORDS SUMMARY | 2023-10-25 14:14 | XMS_ITS | Encounter Summary ---
Author Name Unknown Organization [place] Address [address] [facility] [place] [address] Care Team Providers Care Driver Utility Worker Name Role Phone Monty Musa MD Primary Care Provider [phone] Alfonso Tang Unavailable Unavailable Dayanara Bee MD Unavailable [phone] Min Lange MD Unavailable Unavailable Marlo Madsen MD Unavailable [phone] Mel Buckley RN Unavailable [phone] Douglas Cadet MD Unavailable [phone] Rosalba Pendleton APRN POCKETED SPRING MACHINE OPERATOR Unavaila ble Rosalba Pendleton APRN POCKETED SPRING MACHINE OPERATOR Unavaila ble Douglas Cadet MD Unavailable [phone] Marlo Madsen MD Unavailable [phone] Abby Vasquez MD Unavailable Abby Vasquez MD Unavailable Reason for Visit * Reason Comments Refill Request fludrocortisone (SOHA RINEF) 0.1 MG tablet 180 tablet 3 05/28/2022 Encounter Details Date Type Department Care Team (Late st Contact Info) Description 06/17/2023 [facility] Heart Clinic [address] [phone] Marlo Madsen MD 420 [facility] 508 [place], [place] [address] Refill Request (fludrocortisone (FLORINEF) 0.1 MG tablet [...] Sex Assigned at Female 10/31/2021 7:59 AM SCALPING MACHINE OPERATOR Gender Identity Female 10/31/2021 7:59 AM SCALPING MACHINE OPERATOR Sexual Orientation Straight 10/31/2021 7: 59 AM SCALPING MACHINE OPERATOR documented as of this encounter [...] st Contact Info) Description 10/26/2023 1:00 PM SCALPING MACHINE OPERATOR Virtual Visit [facility] Gastroenterology Clinic [address] 4th [place] [phone] Latricia Pettit PA-C [address] [place] [address] 10/28/2023 10:50 AM SCALPING MACHINE OPERATOR Therapy Visit [facility] Services [place] [address] Zain Quintana MD [address] [place] [address] Lainey Simon, PT [address] [place] [address] 11/04/2023 10:50 AM SCALPING MACHINE OPERATOR Therapy Visit [address] [address] Zain Quintana MD [address] [place] [address] Lainey Simon PT [address] [place] [address] 11/17/2023 11:00 AM SCALPING MACHINE OPERATOR Therapy Visit [address] [address] Lainey Simon PT [address] [place] [address] 11/24/2023 10:40 AM CDT Office Visit [facility] Gastroenterology Clinic [address] [phone] Abby Vasquez MD [address] [place] [address] 11/24/2023 1:30 PM CDT Therapy Visit [address] [address] Lainey Simon PT [address] [place] [address] 12/01/2023 10:20 AM CDT Therapy Visit [facility] [address] [facility] [address] [place] [address] [place] [address] [place] [address] 12/08/2023 10:20 AM CDT Therapy Visit [facility] [address] [facility] 300 [place] [address] [place] [address] [place], [place] 9[address]337 01/13/2024 10:00 AM CDT Virtual Visit [facility] Neurology Clinic [address]rd [place] [phone] Rosalba Pendleton, MAXIMILIANO [address] [place] [address] 01/20/2024 8:00 PM CDT Therapy Visit [facility] Sleep [address] [phone] 03/14/2024 10:30 AM CDT Office Visit [facility] Sleep [address] [phone] Abhishek Acevedo PA-C [address] [address] 03/21/2024 11:30 AM CDT Office Visit [facility]al Surgery [facility] [address] 4th [place] [phone] Zain Quintana MD [address] [place] [address] documented as of this encounter Visit Diagnoses Diagnosis Vasovagal syncope Syncope and collapse documented in this encounter Additional Health Concerns Assessment Noted Time PHQ-9 Depression Total Score: 11 022 11:52 AM CDT documented as of this encounter Care Teams Driver Utility Worker Relationship Specialty Start Date End Date Monty Musa MD [facility] [address] [place] [address] PCP - General Family Medicine 08/13/21 Alfonso Tang [facility] [address] [place] [address] [facility] 08/13/21 Dayanara Bee MD [address] [place] [address] Pediatrics 12/26/14 Min Lange MD [address] [place] [address] Neurology 03/30/16 Marlo Madsen MD [address] [place] [address] 508 [place] [address] Cardiology 10/27/16 Mel Buckley, RN Nurse Coordinator Physical Medicine and Rehabilitation 12/02/16 Douglas Cadet MD [address] [place] [address] Gastroenterology 08/13/21 Rosalba Pendleton APRN POCKETED SPRING MACHINE OPERATOR [address] [place] [address] [address] Nurse Practitioner Neurology 09/05/21 Rosalba Pendleton APRN POCKETED SPRING MACHINE OPERATOR [address] [place] [address] [address] Assigned Neuroscience Provider 11/09/21 Douglas Cadet MD [address] [place] [address] Assigned Gastroenterology Provider 03/14/22 09/03/23 Marlo Madsen MD [address] [place] [address] 508 [place] [address] Assigned Heart and Vascular Provider 03/14/22 Abby Vasquez MD [address] [place] [address] Gastroenterology 07/16/22 Abby Vasquez MD [address] [place] [address] Assigned PCP 09/26/22 10/06/23 documented as of this encounter
--- OUTSIDE RECORDS SUMMARY | 2023-10-25 14:14 | XMS_ITS | Encounter Summary ---
Author Name Unknown Organization [place] Address [address] [place] [address] Care Team Providers Care Electronic Commerce Specialist Name Role Phone Monty Musa MD Primary Care Provider Alfonso Tang Unavailable Unavailable Dayanara Bee MD Unavailable [phone] Min Lange MD Unavailable Unavailable Marlo Masden MD Unavailable [phone] Mel Buckley RN Unavailable [phone] Douglas Cadet MD Unavailable [phone] Rosalba Pendleton APRN MAP CLERK Unavaila ble Rosalba Pendleton APRN MAP CLERK Unavaila ble Douglas Cadet MD Unavailable [phone] Marlo Madsen MD Unavailable [phone] Abby Vasquez MD Unavailable Abby Vasquez MD Unavailable Reason for Visit * Reason Onset Date Comments Refill Request 05/01/2023 midodrine (PROAM ATINE) 5 MG tablet Encounter Details Date Type Department Care Team (Late st Contact Info) Description 05/01/2023 [facility] [address] [phone] Marlo Madsen MD 420 [facility] 508 [place], [place] [phone] Refill Request (midodrine (PROAMATINE) 5 MG tablet ) Social History Tobacco Use Types Packs/Day Years Used Date Smoking Tobacco: Never Smokeless Tobacco: Never Alcohol Use Standard Drinks/Week Comments No 0 (1 standard drink = 0.6 oz pur e alcohol) PHQ-2 Answer Date Recorded PHQ-2 Score 2 04/02/2023 Sex and Gender Information Value Date Recorded Sex Assigned at Female 10/31/2021 7:59 AM OPHTHALMOLOGIST Gender Identity Female 10/31/2021 7:59 AM OPHTHALMOLOGIST Sexual Orientation Straight 10/31/2021 7: 59 AM OPHTHALMOLOGIST COVID-19 Exposure Response Date Recorded In the [...] st Contact Info) Description 10/26/2023 1:00 PM OPHTHALMOLOGIST Virtual Visit [facility] Gastroenterology Clinic [address] 4th [place] [phone] Latricia Pettit PA-C [address] [place] [address] 10/28/2023 10:50 AM OPHTHALMOLOGIST Therapy Visit [facility] Rehabilitation Services [facility] [address] [facility] [address] [place], [place] 77[address] Zain Quintana MD [address] [place] [address] Lainey Simon, PT [address] [place] [address] 11/04/2023 10:50 AM OPHTHALMOLOGIST Therapy Visit [address] [address] Zain Quintana MD [address] [place] [address] Lainey Simon, PT [address] [place] [address] 11/17/2023 11:00 AM OPHTHALMOLOGIST Therapy Visit [address] [address] Lainey Simon, PT [address] [place] [address] 11/24/2023 10:40 AM CDT Office Visit [facility] Gastroenterology Clinic [address] [phone] Abby Vasquez MD [address] [place] [address] 11/24/2023 1:30 PM CDT Therapy Visit [address] [address] Lainey Simon, PT [address] [place] [address] 12/01/2023 10:20 AM CDT Therapy Visit [address] [address] [place] [address] [place], [place] [address] 12/08/2023 10:20 AM CDT Therapy Visit [facility] Rehabilitation Services [facility] [address] [facility] 300 [place] [address] [place] [address] [place] [address] 01/13/2024 10:00 AM CDT Virtual Visit [facility] Neurology Clinic [address] 3rd [place] [phone] Rosalba Pendleton, MAXIMILIANO [address] CD0481GW [place], [place] [address] 01/20/2024 8:00 PM CDT Therapy Visit [facility] Sleep [address] [phone] 03/14/2024 10:30 AM CDT Office Visit [address] [phone] Abhishek Acevedo PA-C [address] [address] 03/21/2024 11:30 AM CDT Office Visit [facility]al Surgery Clinic [address] 4th [place] [phone] Zain Quintana MD [address] [place] [address] documented as of this encounter Visit Diagnoses Diagnosis Syncope and collapse Palpitations Vasovagal syncope Syncope and collapse documented in this encounter Additional Health Concerns Assessment Noted Time PHQ-9 Depression Total Score: 11 022 11:52 AM CDT documented as of this encounter Care Teams Electronic Commerce Specialist Relationship Specialty Start Date End Date Monty Musa MD [facility] [address] [place] [address] PCP - General Family Medicine 08/13/21 Alfonso Tang [facility] [address] [place] [address] Family Practice 08/13/21 Dayanara Bee MD 420 [facility] 75 [place], [place] 248[address] Pediatrics 12/26/14 Min Lange MD 420 [facility] 75 [place] [address] Neurology 03/30/16 Marlo Madsen MD 420 [facility] 508 [place] [address] Cardiology 10/27/16 Mel Buckley, RN Nurse Coordinator Physical Medicine and Rehabilitation 12/02/16 Douglas Cadet MD [address] [place] [address] Gastroenterology 08/13/21 Rosalba Pendleton APRN MAP CLERK [address] [place], [place] [address] Nurse Practitioner Neurology 09/05/21 Rosalba Pendleton APRN MAP CLERK [address] [place], [place] [address] Assigned Neuroscience Provider 11/09/21 Douglas Cadet MD [address] [place] [address] Assigned Gastroenterology Provider 03/14/22 09/03/23 Marlo Madsen MD [address] [place] [address] [place] [address] Assigned Heart and Vascular Provider 03/14/22 Abby Vasquez MD [address] [place] [address] Gastroenterology 07/16/22 Abby Vasquez MD [address] [place] [address] 822305 Assigned PCP 09/26/22 10/06/23 documented as of this encounter
--- OUTSIDE RECORDS SUMMARY | 2023-10-25 14:14 | XMS_ITS | Encounter Summary ---
Author Name Unknown Organization [facility] Address [address] [place] [address] Care Team Providers Care Sales Department Manager Name Role Phone Monty Musa MD Primary Care Provider [phone] Alfonso Tang Unavailable Unavailable Dayanara Bee MD Unavailable [phone] Min Lange MD Unavailable Unavailable Marlo Madsen MD Unavailable [phone] Mel Buckley RN Unavailable [phone] Douglas Cadet MD Unavailable [phone] Rosalba Pendleton APRN STAVE AND BOLT EQUALIZER Unavaila ble Rosalba Pendleton APRN STAVE AND BOLT EQUALIZER Unavaila ble Douglas Cadet MD Unavailable [phone] Marlo Madsen MD Unavailable [phone] Abby Vasquez MD Unavailable Abby Vasquez MD Unavailable Reason for Visit * Reason Onset Date Comments Appointment 05/26/2023 Reschedule 07/14 Appt Time Encounter Details Date Type Department Care Team (Late st Contact Info) Description 05/26/2023 [facility] [address] [phone] Abby Vasquez MD [address] [place] [address] 411855 Appointment (Reschedule 07/14 Appt Time) Social History Tobacco Use Types Packs/Day Years Used Date Smoking Tobacco: Never Smokeless Tobacco: Never Alcohol Use Standard Drinks/Week Comments No 0 (1 standard drink = 0.6 oz pur e alcohol) PHQ-2 Answer Date Recorded PHQ-2 Score 2 04/02/2023 Sex and Gender Information Value Date Recorded Sex Assigned at Female 10/31/2021 7:59 AM STAMP MAKER Gender Identity Female 10/31/2021 7:59 AM STAMP MAKER Sexual Orientation Straight 10/31/2021 7: 59 AM STAMP MAKER COVID-19 Exposure Response Date Recorded In the last 10 days, have yo u been in contact with someone who was confirmed or suspected to have Coronavirus/COVID-19? Unable to assess 04/27/2023 10:12 AM CDT documented as of this encounter Miscellaneous Notes * Telephone Encounter - Benjamin Quevedo - 05/26/2023 9:34 AM CDT [facility], sent mychart to reschedule the following appointment: [...] st Contact Info) Description 10/26/2023 1:00 PM STAMP MAKER Virtual Visit [facility] [address] [phone] Latricia Pettit PA-C [address] [place] [address] 10/28/2023 10:50 AM STAMP MAKER Therapy Visit M [address] [address] Zain Quintana MD [address] [place] [address] Lainey Simon, PT [address] [place] [address] 11/04/2023 10:50 AM STAMP MAKER Therapy Visit [address] [address] Zain Quintana MD [address] [place] [address] Lainey Simon, PT [address] [place] [address] 265[address] 11/17/2023 11:00 AM STAMP MAKER Therapy Visit [address] [address] Lainey Simon, PT [address] [place] [address] 11/24/2023 10:40 AM CDT Office Visit [facility] [address] [phone] Abby Vasquez MD [address] [place] [address] 11/24/2023 1:30 PM CDT Therapy Visit [address] [address] Lainey Simon, PT [address] [place] [address] 12/01/2023 10:20 AM CDT [facility] [address] [facility] [address] [place] [address] [place] [address] [place] [address] 12/08/2023 10:20 AM CDT Therapy [facility] [address] [facility] [address] [place] [address] Alayna Simongail, [place] [address] [place] [address] 918647 01/13/2024 10:00 AM CDT Virtual Visit [facility] [address] 3rd [place] [phone] Rosalba Pendleton, MAXIMILIANO [address] [place] [address] 01/20/2024 8:00 PM CDT Therapy Visit [facility] Sleep [address] [phone] 03/14/2024 10:30 AM CDT Office Visit [facility] [address] [phone] Abhishek Acevedo PA-C [address] [address] 03/21/2024 11:30 AM CDT Office Visit [facility] [address] 4th [place] [phone] Zain Quintana MD [address] [place] [address] documented as of this encounter Visit Diagnoses Not on filedocumented in this encounter Additional Health Concerns Assessment Noted Time PHQ-9 Depression Total Score: 11 022 11:52 AM CDT documented as of this encounter Care Teams Sales Department Manager Relationship Specialty Start Date End Date Monty Musa MD [facility] [address] [place] [address] PCP - General Family Medicine 08/13/21 Alfonso Tang [facility] [address] [place] [address] [facility] 08/13/21 Dayanara Bee MD [address] [place] [address] 75 [place] [address] Pediatrics 12/26/14 Min Lange MD 420 [facility] 75 [place] [address] Neurology 03/30/16 Marlo Madsen MD [address] [place] [address] 508 [place], [place] 160865 Cardiology 10/27/16 Mel Buckley, RN Nurse Coordinator Physical Medicine and Rehabilitation 12/02/16 Douglas Cadet MD [address] [place] [address] Gastroenterology 08/13/21 Rosalba Pendleton APRN STAVE AND BOLT EQUALIZER [address] [place] [id number] [address] Nurse Practitioner Neurology 09/05/21 Rosalba Pendleton APRN STAVE AND BOLT EQUALIZER 909 [facility] [id number] [place] [address] Assigned Neuroscience Provider 11/09/21 Douglas Cadet MD [address] [place] [address] Assigned Gastroenterology Provider 03/14/22 09/03/23 Marlo Madsen MD [address] [place] [address] 508 [place] [address] Assigned Heart and Vascular Provider 03/14/22 Abby Vasquez MD [address] [place] [address] Gastroenterology 07/16/22 Abby Vasquez MD [address] [place] [address] Assigned PCP 09/26/22 10/06/23 documented as of this encounter
--- OUTSIDE RECORDS SUMMARY | 2023-10-25 14:14 | XMS_ITS | Encounter Summary ---
Author Name Unknown Organization [facility] Address [address] [facility] [place] [address] Care Team Providers Care Hearing Dog Trainer Name Role Phone Monty Musa MD Primary Care Provider [phone] Alfonso Tang Unavailable Unavailable Dayanara Bee MD Unavailable [phone] Min Lange MD Unavailable Unavailable Marlo Madsen MD Unavailable [phone] Mel Buckley RN Unavailable [phone] Douglas Cadet MD Unavailable [phone] Rosalba Pendleton APRN OIL LABORATORY ANALYST Unavaila ble Rosalba Pendleton APRN OIL LABORATORY ANALYST Unavaila ble Douglas Cadet MD Unavailable [phone] Marlo Madsen MD Unavailable [phone] Abby Vasquez MD Unavailable Abby Vasquez MD Unavailable Airam Hodges PA-C Unavailable [phone] Zain Quintana MD Unavailable [phone] Latricia Pettit PA-C Unavailable Encounter Details Date Type Department Care Team (Late st Contact Info) Description 05/05/2023 MyC Medical Advice [facility] [address] [phone] Latricia Pettit PA-C [address] [place] [address] Social History Tobacco Use Types Packs/Day Years Used Date Smoking Tobacco: Never Smokeless Tobacco: Never Alcohol Use Standard Drinks/Week Comments No 0 (1 standard drink = 0.6 oz pur e alcohol) PHQ-2 Answer Date Recorded PHQ-2 Score 2 04/02/2023 Sex and Gender Information Value Date Recorded Sex Assigned at Female 10/31/2021 7:59 AM MATERIAL MOVER Gender Identity Female 10/31/2021 7:59 AM MATERIAL MOVER Sexual Orientation Straight 10/31/2021 7: 59 AM MATERIAL MOVER COVID-19 Exposure Response Date Recorded In the last 10 days, have yo u been in contact with someone who was confirmed or suspected to have Coronavirus/COVID-19? Unable to assess 04/27/2023 10:12 AM CDT documented as of this encounter Plan of Treatment Upcoming Encounters Date Type Department Care Team (Late st Contact Info) Description 10/26/2023 1:00 PM MATERIAL MOVER Virtual Visit [facility] [address] [phone] Latricia Pettit PA-C [address] [place] [address] 596785 10/28/2023 10:50 AM MATERIAL MOVER Therapy Visit [facility] [address] [facility] [address] [place], [place] 115[address] Zain Quintana MD [address] [place] [address] [place] [address] [place], [place] 9[address]177 11/04/2023 10:50 AM MATERIAL MOVER Therapy Visit [address] [address] Zain Quintana MD [address] [place] [address] Lainey Simon, PT [address] [place] [address] 11/17/2023 11:00 AM MATERIAL MOVER Therapy Visit [address] [address] Lainey Simon, PT [address] [place] [address] 11/24/2023 10:40 AM CDT Office Visit [facility] [address] [phone] Abby Vasquez MD [address] [place] [address] 11/24/2023 1:30 PM CDT Therapy Visit [address] [address] Lainey Simon, PT [address] [place] [address] 12/01/2023 10:20 AM CDT Therapy Visit [address] [address] Lainey Simon, PT [address] [place] [address] 12/08/2023 10:20 AM CDT Therapy Visit [facility] [address] [facility] 300 [place] [address] Alfred LaineyJAY lowry [address] [place] [address] 01/13/2024 10:00 AM CDT Virtual Visit [facility] Neurology [facility] [address] 3rd [place] [phone] Rosalba Pendleton, [employer]STRU[employer]UTIONS ARCHITECT OIL LABORATORY ANALYST [address] [place] [address] [id number] [place], [place] [address] 01/20/2024 8:00 PM CDT Therapy Visit [facility] Sleep [address] [phone] 03/14/2024 10:30 AM CDT Office Visit [address] [phone] Abhishek Acevedo PA-C 2653 [facility] 103 [place], [place] 79[address] 03/21/2024 11:30 AM CDT Office Visit [facility] [address] 4th [place] [phone] Zain Quintana MD [address] [place] [address] documented as of this encounter Visit Diagnoses Not on filedocumented in this encounter Additional Health Concerns Assessment Noted Time PHQ-9 Depression Total Score: 11 022 11:52 AM CDT documented as of this encounter Care Teams Hearing Dog Trainer Relationship Specialty Start Date End Date Monty Musa MD [facility] [address] [place] [address] PCP - General Family Medicine 08/13/21 Alfonso Tang [facility] [address] [place] [address] [facility] Practice 08/13/21 Dayanara Bee MD 420 [facility] 75 [place], [place] 794685 Pediatrics 12/26/14 Min Lange MD 420 [facility] 75 [place] [address] Neurology 03/30/16 Marlo Madsen MD 420 [facility] 508 [place] [address] Cardiology 10/27/16 Mel Buckley, RN Nurse Coordinator Physical Medicine and Rehabilitation 12/02/16 Douglas Cadet MD 500 [place], [place] 555685 MD Gastroenterology 08/13/21 Rosalba Pendleton APRN OIL LABORATORY ANALYST [address] [id number] [place], [place] [address] Nurse Practitioner Neurology 09/05/21 Rosalba Pendleton APRN OIL LABORATORY ANALYST [address] [id number] [place], [place] 15[address] Assigned Neuroscience Provider 11/09/21 Douglas Cadet MD 500 [place], [place] 0[address] Assigned Gastroenterology Provider 03/14/22 09/03/23 Marlo Madsen MD 420 [facility] 508 [place] [address] Assigned Heart and Vascular Provider 03/14/22 Abby Vasquez MD [address] [place] [address] 139445 Gastroenterology 07/16/22 Abby Vasquez MD [address] [place] [address] 983545 Assigned PCP 09/26/22 10/06/23 Airam Hodges PA-C 500 [place], [place] 364705 Physician Powder Blender And Pourer Surgery 07/19/23 Zain Quintana MD 500 [place], [place] 098925 Assigned Surgical Provider 10/07/23 Latricia Pettit PA-C [address] [place] [address] 498745 Assigned Gastroenterology Provider 10/15/23 documented as of this encounter
--- OUTSIDE RECORDS SUMMARY | 2023-10-25 14:14 | XMS_ITS | Encounter Summary ---
Author Name Unknown Organization [employer] Address [address] [facility] [place] [address] Care Team Providers Care Intermediate Accountant Name Role Phone Monty Musa MD Primary Care Provider [phone] Alfonso Tang Unavailable Unavailable Dayanara Bee MD Unavailable [phone] Min Lange MD Unavailable Unavailable Marlo Madsen MD Unavailable [phone] Mel Buckley RN Unavailable [phone] Douglas Cadet MD Unavailable [phone] Rosalba Pendleton APRN PORCELAIN ENAMEL INSTALLER Unavaila ble Rosalba Pendleton APRN PORCELAIN ENAMEL INSTALLER Unavaila ble Douglas Cadet MD Unavailable [phone] Marlo Madsen MD Unavailable [phone] Abby Vasquez MD Unavailable Abby Vasquez MD Unavailable Reason for Visit * Reason Onset Date Comments Refill Request 06/01/2023 midodrine (PROAM ATINE) 5 MG tablet Encounter Details Date Type Department Care Team (Late st Contact Info) Description 06/01/2023 [facility] [address] [phone] Marlo Madsen MD 420 [facility] 508 [place], [place] [address] Refill Request (midodrine (PROAMATINE) 5 MG tablet) [...] Sex Assigned at Female 10/31/2021 7:59 AM CULLET CRUSHER Gender Identity Female 10/31/2021 7:59 AM CULLET CRUSHER Sexual Orientation Straight 10/31/2021 7: 59 AM CULLET CRUSHER documented as of this encounter Miscellaneous Notes [...] st Contact Info) Description 10/26/2023 1:00 PM CULLET CRUSHER Virtual Visit [facility] Gastro[facility] [address] 4th [place] [phone] Latricia Pettit PA-C [address] [place] [address] 10/28/2023 10:50 AM CULLET CRUSHER Therapy Visit [address] [address] Zain Quintana MD [address] [place] [address] Lainey iSmon, PT [address] [place] [address] 11/04/2023 10:50 AM CULLET CRUSHER Therapy Visit [address] [address] Zain Quintana MD [address] [place] [address] Lainey Simon, PT [address] [place] [address] 11/17/2023 11:00 AM CULLET CRUSHER Therapy Visit [address] [address] Lainey Simon, PT [address] [place] [address] 11/24/2023 10:40 AM CDT Office Visit [facility] Gastroenterology Clinic [address] [phone] Abby Vasquez MD [address] [place] [address] 11/24/2023 1:30 PM CDT Therapy Visit [address] [place] [address] Alayna Simongail, PT [address] [place] [address] 12/01/2023 10:20 AM CDT Therapy Visit [address] [address] AlfredAlaynaLainey, PT [address] [place] [address] 12/08/2023 10:20 AM CDT Therapy Visit [address] [address] Alayna Simongail, PT [address] [place] [address] 01/13/2024 10:00 AM CDT Virtual Visit [facility] Neurology Clinic [address] 3rd [place] [phone] Rosalba Pendleton APRN [address] [place] [address] 01/20/2024 8:00 PM CDT Therapy Visit [facility] Sleep [place] [address] SYDNIE Martinez [phone] 03/14/2024 10:30 AM CDT Office Visit [facility] Sleep [place] [address] [place] [address] Abhishek Acevedo PA-C 5908 [facility] 103 [place] [address] 03/21/2024 11:30 AM CDT Office Visit [facility]al [facility] [address] [place] [phone] Zain Quintana MD 500 [place] [address] documented as of this encounter Visit Diagnoses Diagnosis Syncope and collapse Palpitations Vasovagal syncope Syncope and collapse documented in this encounter Additional Health Concerns Assessment Noted Time PHQ-9 Depression Total Score: 11 022 11:52 AM CDT documented as of this encounter Care Teams Intermediate Accountant Relationship Specialty Start Date End Date Monty Musa MD [facility] [address] [place] [address] PCP - General Family Medicine 08/13/21 Alfonso Tang [facility] [address] [place] [address] Family Practice 08/13/21 Dayanara Bee MD [address] [place] [address] 75 [place] [address] Pediatrics 12/26/14 Min Lange MD [address] [place] [address] Neurology 03/30/16 Marlo Madsen MD [address] [place] [address] 508 [place] [address] Cardiology 10/27/16 Mel Buckley, RN Nurse Coordinator Physical Medicine and Rehabilitation 12/02/16 Douglas Cadet MD [address] [place] [address] Gastroenterology 08/13/21 Rosalba Pendleton, FAMILY HEALTH NURSE PRACTITIONER PORCELAIN ENAMEL INSTALLER [address] [place], [place] [address] [address] Nurse Practitioner Neurology 09/05/21 Rosalba Pendleton APRN PORCELAIN ENAMEL INSTALLER [address] [place] [address] Assigned Neuroscience Provider 11/09/21 Douglas Cadet MD [address] [place] [address] Assigned Gastroenterology Provider 03/14/22 09/03/23 Marlo Madsen MD [address] [place] [address] 508 [place] [address] Assigned Heart and Vascular Provider 03/14/22 Abby Vasquez MD [address] [place] [address] Gastroenterology 07/16/22 Abby Vasquez MD [address] [place] [address] Assigned PCP 09/26/22 10/06/23 documented as of this encounter
--- OUTSIDE RECORDS SUMMARY | 2023-10-25 14:14 | XMS_ITS | Encounter Summary ---
Author Name Unknown Organization [place] Address [address] [facility] [place] [address] Care Team Providers Care Iron Launder Operator Name Role Phone Monty Musa MD Primary Care Provider [phone] Alfonso Tang Unavailable Unavailable Dayanara Bee MD Unavailable [phone] Min Lange MD Unavailable Unavailable Marlo Madsen MD Unavailable [phone] Mel Buckley RN Unavailable [phone] Douglas Cadet MD Unavailable [phone] Rosalba Pendleton APRN EXTERMINATOR Unavaila ble Rosalba Pendleton APRN EXTERMINATOR Unavaila ble Douglas Cadet MD Unavailable [phone] Marlo Madsen MD Unavailable [phone] Abby Vasquez MD Unavailable Abby Vasquez MD Unavailable Reason for Visit * Reason Comments Medication Refill Encounter Details Date Type Department Care Team (Late st Contact Info) Description 05/15/2023 [facility] G[facility]ology [facility] [place] [address] [facility] [address] 4th [place] [phone] Abby Vasquez MD [address] [place] [address] 999105 Medication Refill Social History Tobacco Use Types Packs/Day Years Used Date Smoking Tobacco: Never Smokeless Tobacco: Never Alcohol Use Standard Drinks/Week Comments No 0 (1 standard drink = 0.6 oz pur e alcohol) PHQ-2 Answer Date Recorded PHQ-2 Score 2 04/02/2023 Sex and Gender Information Value Date Recorded Sex Assigned at Female 10/31/2021 7:59 AM DICTAPHONE TRANSCRIBER Gender Identity Female 10/31/2021 7:59 AM DICTAPHONE TRANSCRIBER Sexual Orientation Straight 10/31/2021 7: 59 AM DICTAPHONE TRANSCRIBER COVID-19 Exposure Response Date Recorded In the last 10 days, have yo u been in contact with someone who was confirmed or suspected to have Coronavirus/COVID-19? Unable to assess 04/27/2023 10:12 AM CDT documented as of this encounter Miscellaneous Notes * Telephone Encounter - Teresa Colon RN - 05/19/2023 3:00 PM CDT 04/23/2023 [facility] [place] Latricia Pettit PA-C Gastroenterology documented in this encounter Plan of Treatment Upcoming Encounters Date Type Department Care Team (Late st Contact Info) Description 10/26/2023 1:00 PM DICTAPHONE TRANSCRIBER Virtual Visit [facility] [address] [place] [phone] Latricia Pettit PA-C [address] [place] [address] 993015 10/28/2023 10:50 AM DICTAPHONE TRANSCRIBER Therapy Visit [facility] [address] [facility] [address] [place], [place] [address] Zain Quintana MD [address] [place] [address] Lainey Simon, PT [address] [place] [address] 11/04/2023 10:50 AM DICTAPHONE TRANSCRIBER Therapy Visit [address] [address] Zain Quintana MD [address] [place] [address] Lainey Simon, PT [address] [place] [address] 11/17/2023 11:00 AM DICTAPHONE TRANSCRIBER Therapy Visit [address] [address] Lainey Simon, PT [address] [place] [address] 11/24/2023 10:40 AM CDT Office Visit [facility] [address] [phone] Abby Vasquez MD [address] [place] [address] 11/24/2023 1:30 PM CDT Therapy Visit [address] [address] Lainey Simon, PT [address] [place] [address] 12/01/2023 10:20 AM CDT Therapy Visit [address] [address] [place] [address] [place] [address] 12/08/2023 10:20 AM CDT Therapy Visit [facility] [address] [facility] [address] [place] [address] [place] [address] [place] [address] 01/13/2024 10:00 AM CDT Virtual Visit [facility] [address] [place] [phone] Rosalba Pendleton, MAXIMILIANO [address] [id number] [place], [place] [address] 01/20/2024 8:00 PM CDT Therapy Visit [facility] [address] [phone] 03/14/2024 10:30 AM CDT Office Visit [facility] [address] [phone] Abhishek Acevedo PA-C [address] [id number] 03/21/2024 11:30 AM CDT [facility] Visit [facility] [address] [place] [phone] Zain Quintana MD [address] [place] [address] documented as of this encounter Visit Diagnoses Diagnosis Irritable bowel syndrome with constipation Irritable bowel syndrome documented in this encounter Additional Health Concerns Assessment Noted Time PHQ-9 Depression Total Score: 11 09/15/2 022 11:52 AM CDT documented as of this encounter Care Teams Iron Launder Operator Relationship Specialty Start Date End Date Monty Musa MD [facility] [address] [place] [address] PCP - General Family Medicine 08/13/21 Alfonso Tang [facility] [address] [place] [address] Family Practice 08/13/21 Dayanara Bee MD 420 [facility] 75 [place], [place] [address] Pediatrics 12/26/14 Min Lange MD 420 [facility] 75 [place] [address] Neurology 03/30/16 Marlo Madsen MD [address] [place] [address] 508 [place] [address] Cardiology 10/27/16 Mel Buckley, RN Nurse Coordinator Physical Medicine and Rehabilitation 12/02/16 Douglas Cadet MD [address] [place] [address] Gastroenterology 08/13/21 Rosalba Pendleton APRN EXTERMINATOR [address] [place] [address] Nurse Practitioner Neurology 09/05/21 Rosalba Pendleton APRN EXTERMINATOR [address] 557965 Assigned Neuroscience Provider 11/09/21 Douglas Cadet MD [address] [place] [address] Assigned Gastroenterology Provider 03/14/22 09/03/23 Marlo Madsen MD [address] [place] [address] 508 [place], [place] 32[address]65 Assigned Heart and Vascular Provider 03/14/22 Abby Vasquez MD [address] [place] [address] 636735 Gastroenterology 07/16/22 Abby Vasquez MD [address] [place] [address] 053535 Assigned PCP 09/26/22 10/06/23 documented as of this encounter
--- OUTSIDE RECORDS SUMMARY | 2023-10-25 14:14 | XMS_ITS | Encounter Summary ---
Author Name Unknown Organization [place] Address [address] [facility] [place] [address] Care Team Providers Care Freight Car Repairer Name Role Phone Monty Musa MD Primary Care Provider [phone] Alfonso Tang Unavailable Unavailable Dayanara Bee MD Unavailable [phone] Min Lange MD Unavailable Unavailable Marlo Madsen MD Unavailable [phone] Mel Buckley RN Unavailable [phone] Douglas Cadet MD Unavailable [phone] Rosalba Pendleton APRN SOLAR PROJECT ENGINEER Unavaila ble Rosalba Pendleton APRN SOLAR PROJECT ENGINEER Unavaila ble Douglas Cadet MD Unavailable [phone] Marlo Madsen MD Unavailable [phone] Abby Vasquez MD Unavailable Abby Vasquez MD Unavailable Reason for Visit * Reason Onset Date Comments Requested [facility] records- colonoscopy 2022 Encounter Details Date Type Department Care Team (Latest Contact Info) Description 04/28/2023 Documentation Only [facility] [place] [address] [phone] Melany Freeman LPN Requested [facility] records- colonoscopy Social History Tobacco Use Types Packs/Day Years Used Date Smoking Tobacco: Never Smokeless Tobacco: Never Alcohol Use Standard Drinks/Week Comments No 0 (1 standard drink = 0.6 oz pur e alcohol) PHQ-2 Answer Date Recorded PHQ-2 Score 2 04/02/2023 Sex and Gender Information Value Date Recorded Sex Assigned at Female 10/31/2021 7:59 AM PRODUCTION DIRECTOR Gender Identity Female 10/31/2021 7:59 AM PRODUCTION DIRECTOR Sexual Orientation Straight 10/31/2021 7: 59 AM PRODUCTION DIRECTOR COVID-19 Exposure Response Date Recorded In the last 10 days, have yo u been in contact with someone who was confirmed or suspected to have Coronavirus/COVID-19? Unable to assess 04/27/2023 10:12 AM CDT documented as of this encounter Progress Notes * Melany Freeman LPN - 04/28/2023 10:55 AM CDT Faxed request to [facility]ior[facility] Norton at [phone] requesting colonoscopy record be faxed to us. Spoke to Sammi in [facility] and she will send over records. Report received and sent to HIM to scan into chart. documented in this encounter Plan of Treatment Upcoming Encounters Date Type Department Care Team (Late st Contact Info) Description 10/26/2023 1:00 PM PRODUCTION DIRECTOR Virtual Visit [facility] [address] [phone] Latricia Pettit PA-C [address] [place] [address] 566185 10/28/2023 10:50 AM PRODUCTION DIRECTOR Therapy Visit [facility] [place] [address] [facility] [address] [place] [address] Zain Quintana MD [address] [place] [address] 211305 Lainey Simon, PT [address] [place] [address] 11/04/2023 10:50 AM PRODUCTION DIRECTOR Therapy Visit [address] [address] Zain Quintana MD [address] [place] [address] Lainey Simon, PT [address] [place] [address] 11/17/2023 11:00 AM PRODUCTION DIRECTOR Therapy Visit [address] [address] Lainey Simon, PT [address] [place] [address] 11/24/2023 10:40 AM CDT Office Visit [facility] [address] [phone] Abby Vasquez MD [address] [place] [address] 11/24/2023 1:30 PM CDT Therapy Visit [address] [address] Lainey Simon, PT [address] [place] [address] 12/01/2023 10:20 AM CDT Therapy Visit [address] [address] [place] [address] [place] [address] 12/08/2023 10:20 AM CDT Therapy Visit [facility] [address] [facility] [address] [place] [address] [place] [address] [place] [address] 01/13/2024 10:00 AM CDT Virtual Visit [facility] [address] 3rd [place] [phone] Rosalba Pendleton, MAXIMILIANO [address] [id number] [place], [place] [id number] 01/20/2024 8:00 PM CDT Therapy Visit [facility] [address] [phone] 03/14/2024 10:30 AM CDT Office Visit [facility] [address] [phone] Abhishek Acevedo PA-C [address] [id number] 03/21/2024 11:30 AM CDT Office Visit [facility] [address] 4th [place] [phone] Zain Quintana MD [address] [place] [address] 276305 documented as of this encounter Visit Diagnoses Not on filedocumented in this encounter Additional Health Concerns Assessment Noted Time PHQ-9 Depression Total Score: 11 022 11:52 AM CDT documented as of this encounter Care Teams Freight Car Repairer Relationship Specialty Start Date End Date Monty Musa MD [facility] [address] [place] [address] PCP - General Family Medicine 08/13/21 Alfonso Tang [facility] [address] [place] [address] Family Practice 08/13/21 Dayanara Bee MD [address] [facility] 75 [place], [place] 77[address] Pediatrics 12/26/14 Min Lange MD 420 [facility] 75 [place] [address] Neurology 03/30/16 Marlo Madsen MD 420 [facility] 508 [place], [place] [phone] Cardiology 10/27/16 Mel Buckley, RN Nurse Coordinator Physical Medicine and Rehabilitation 12/02/16 Douglas Cadet MD [address] [place] [address] Gastroenterology 08/13/21 Rosalba Pendleton APRN SOLAR PROJECT ENGINEER [address] [address] Nurse Practitioner Neurology 09/05/21 Rosalba Pendleton APRN SOLAR PROJECT ENGINEER [address] [address] Assigned Neuroscience Provider 11/09/21 Douglas Cadet MD [address] [place] [address] Assigned Gastroenterology Provider 03/14/22 09/03/23 Marlo Madsen MD 420 [facility] 508 [place] [address] Assigned Heart and Vascular Provider 03/14/22 Abby Vasquez MD [address] [place] [address] [phone] Gastroenterology 07/16/22 Abby Vasquez MD [address] [place] [address] 447395 Assigned PCP 09/26/22 10/06/23 documented as of this encounter
--- OUTSIDE RECORDS SUMMARY | 2023-10-25 14:14 | XMS_ITS | Encounter Summary ---
Author Name Unknown Organization [place] Address [address] [place] [address] Care Team Providers Care Ccu Nurse Name Role Phone Monty Musa MD Primary Care Provider [phone] Alfonso Tang Unavailable Unavailable Dayanara Bee MD Unavailable [phone] Min Lange MD Unavailable Unavailable Marlo Madsen MD Unavailable [phone] Mel Buckley RN Unavailable [phone] Douglas Cadet MD Unavailable [phone] Rosalba Pendleton APRN SOLID WASTE ENGINEER Unavaila ble Rosalba Pendleton APRN SOLID WASTE ENGINEER Unavaila ble Douglas Cadet MD Unavailable [phone] Marlo Madsen MD Unavailable [phone] Abby Vasquez MD Unavailable Abby Vasquez MD Unavailable Reason for Visit * Reason Onset Date Comments Appointment 05/10/2023 07/14/2023 Encounter Details Date Type Department Care Team (Late st Contact Info) Description 05/10/2023 [facility] [place] [address] [phone] Abby Vasquez MD [address] [place] [address] 844005 Appointment (07/14/2023) Social History Tobacco Use Types [...] Sex Assigned at Female 10/31/2021 7:59 AM CAGE MAKER MACHINE Gender Identity Female 10/31/2021 7:59 AM CAGE MAKER MACHINE Sexual Orientation Straight 10/31/2021 7: 59 AM CAGE MAKER MACHINE COVID-19 Exposure Response Date Recorded In the last 10 days, have yo u been in contact with someone who was confirmed or suspected to have Coronavirus/COVID-19? Unable to assess 04/27/2023 10:12 AM CDT documented as of this encounter Miscellaneous Notes * Telephone Encounter - Jenny Keita - 05/10/2023 2:11 PM CDT [facility] is reaching out to Pt to see if Pt's appointment on 07/14/2023 at 8:40am with Dr. Vasquez can be changed to 07/21/2023 at 8:40am, per clinic change in schedule. [facility] called and left message for the Pt, along with call back number. documented in this encounter Plan of Treatment Upcoming Encounters Date Type Department Care Team (Late st Contact Info) Description 10/26/2023 1:00 PM CAGE MAKER MACHINE Virtual Visit [facility] [address] [phone] Latricia Pettit PA-C [address] [place] [address] 10/28/2023 10:50 AM CAGE MAKER MACHINE Therapy Visit [address] [address] Zain Quintana MD [address] [place] [address] Lainey Simon, PT [address] [place] [address] 11/04/2023 10:50 AM CAGE MAKER MACHINE Therapy Visit [address] [address] Zain Quintana MD [address] [place] [address] Lainey Simon, PT [address] [place] [address] 11/17/2023 11:00 AM CAGE MAKER MACHINE Therapy Visit [address] [address] Lainey Simon PT [address] [place] [address] 11/24/2023 10:40 AM CDT Office Visit [facility] [address] [phone] Abby Vasquez MD [address] [place] [address] 308695 11/24/2023 1:30 PM CDT Therapy Visit [address] [address] Lainey Simon, PT [address] [place] [address] 12/01/2023 10:20 AM CDT Therapy Visit [place] [id number] [facility] 300 [place] [address] Alfred [place], [place] [id number] [place] [address] 12/08/2023 10:20 AM CDT Therapy Visit [address] 300 [place] [address] Lainey Simon, PT [address] [place] [address] 01/13/2024 10:00 AM CDT Virtual Visit [facility] [address] 3rd [place] [phone] Rosalba Pendleton, VAULT MECHANIC [address] [place] [address] 01/20/2024 8:00 PM CDT Therapy Visit [facility] Sleep [address] [phone] 03/14/2024 10:30 AM CDT Office Visit [facility] Sleep [address] [phone] Abhishek Acevedo PA-C [address] [address] 03/21/2024 11:30 AM CDT Office Visit [facility] [address] 4th [place] [phone] Zain Quintana MD 500 [place] [address] documented as of this encounter Visit Diagnoses Not on filedocumented in this encounter Additional Health Concerns Assessment Noted Time PHQ-9 Depression Total Score: 11 022 11:52 AM CDT documented as of this encounter Care Teams Ccu Nurse Relationship Specialty Start Date End Date Monty Musa MD [facility] [address] [place] [address] PCP - General Family Medicine 08/13/21 Alfonso Tang [facility] [address] [place] [address] [facility] 08/13/21 Dayanara Bee MD 420 [facility] 75 [place] [address] Pediatrics 12/26/14 Min Lange MD 420 [facility] 75 [place] [address] Neurology 03/30/16 Marlo Madsen MD 420 [facility] 508 [place] [address] Cardiology 10/27/16 Mel Buckley, RN Nurse Coordinator Physical Medicine and Rehabilitation 12/02/16 Douglas Cadet MD 500 [place] [address] Gastroenterology 08/13/21 Rosalba Pendleton APRN SOLID WASTE ENGINEER [address] [facility]121[address]J [place] [address] Nurse Practitioner Neurology 09/05/21 Rosalba Pendleton APRN SOLID WASTE ENGINEER [address] [place] [address] [id number] [place] [address] Assigned Neuroscience Provider 11/09/21 Douglas Cadet MD [address] [place] [address] Assigned Gastroenterology Provider 03/14/22 09/03/23 Marlo Madsen MD [address] [place] [address] 508 [place] [address] Assigned Heart and Vascular Provider 03/14/22 Abby Vasquez MD [address] [place] [address] Gastroenterology 07/16/22 Abby Vasquez MD [address] [place] [address] 626155 Assigned PCP 09/26/22 10/06/23 documented as of this encounter
--- OUTSIDE RECORDS SUMMARY | 2023-10-25 14:15 | XMS_ITS | Encounter Summary ---
Author Name Unknown Organization [place] Address [address] [facility] [place] [address] Care Team Providers Care Dye Penetrant Testing Technician Name Role Phone Monty Musa MD Primary Care Provider [phone] Alfonso Tang Unavailable Unavailable Dayanara Bee MD Unavailable [phone] Min Lange MD Unavailable Unavailable Marlo Madsen MD Unavailable [phone] Mel Buckley RN Unavailable [phone] Douglas Cadet MD Unavailable [phone] Rosalba Pendleton APRN IRRIGATOR OVERHEAD Unavaila ble Rosalba Pendleton APRN IRRIGATOR OVERHEAD Unavaila ble Douglas Cadet MD Unavailable [phone] Marlo Madsen MD Unavailable [phone] Abby Vasquez MD Unavailable Abby Vasquez [...] Sex Assigned at Female 10/31/2021 7:59 AM HOME HOSPICE RN Gender Identity Female 10/31/2021 7:59 AM HOME HOSPICE RN Sexual Orientation Straight 10/31/2021 7: 59 AM HOME HOSPICE RN COVID-19 Exposure Response Date Recorded In the last 10 days, have yo u been in contact with someone who was confirmed or suspected to have Coronavirus/COVID-19? No / Unsure 04/03/2023 11:46 AM CDT documented as of this encounter Plan of Treatment Upcoming Encounters Date Type Department Care Team (Late st Contact Info) Description 10/26/2023 1:00 PM HOME HOSPICE RN Virtual Visit [facility] [address] [phone] Latricia Pettit PA-C [address] [place] [address] 10/28/2023 10:50 AM HOME HOSPICE RN Therapy Visit [address] [address] Zain Quintana MD [address] [place] [address] Lainey Simon, JAY [address] [place] [address] 11/04/2023 10:50 AM HOME HOSPICE RN Therapy Visit [address] [address] Zain Quintana MD [address] [place] [address] Lainey Simon, JAY [address] [place] [address] 11/17/2023 11:00 AM HOME HOSPICE RN Therapy Visit [address] [address] Lainey Simon, PT [address] [place] [address] 11/24/2023 10:40 AM CDT Office Visit [facility] [address] [place] [phone] Abby Vasquez MD [address] [place] [address] 196435 11/24/2023 1:30 PM CDT Therapy Visit [address] [address] Lainey Simon, PT [address] [place] [address] 12/01/2023 10:20 AM CDT Therapy Visit [address] [address] Lainey Simon, PT [address] [place] [address] 12/08/2023 10:20 AM CDT Therapy Visit [address] [address] Lainey Simon, PT [address] [place] [address] 01/13/2024 10:00 AM CDT Virtual Visit [facility] Neurology Clinic [address]rd [place] [phone] Rosalba Pendleton, SECURITY ROVER IRRIGATOR OVERHEAD 909 [facility] [place] [id number] [address] 01/20/2024 8:00 PM CDT Therapy Visit [facility] Sleep [facility] 6[address] [facility] 103 [place] [phone] 03/14/2024 10:30 AM CDT Office Visit [facility] 6363 [facility] 103 [place] [phone] Abhishek Acevedo PA-C 8778 [facility] 103 [place], [place] [phone] 03/21/2024 11:30 AM CDT Office Visit [facility] [address] 4th [place] [phone] Zain Quintana MD [address] [place] [address] documented as of this encounter Visit Diagnoses Not on filedocumented in this encounter Additional Health Concerns Infection Onset Date Last Indicated Resolved Time Rule Out COVID-19 04/03/2023 04/03/2023 04/04/2023 6:30 PM CDT Assessment Noted Time PHQ-9 Depression Total Score: 11 022 11:52 AM CDT documented as of this encounter Care Teams Dye Penetrant Testing Technician Relationship Specialty Start Date End Date Monty Musa MD [facility] [address] [place] [address] PCP - General Family Medicine 08/13/21 Alfonso Tang [facility] [address] [place] [address] Family Practice 08/13/21 Dayanara Bee MD [address] [place] [address] 75 [place] [address] Pediatrics 12/26/14 Min Lange MD 420 [facility] 75 [place] [address] Neurology 03/30/16 Marlo Madsen MD [address] [address] Cardiology 10/27/16 Mel Buckley, RN Nurse Coordinator Physical Medicine and Rehabilitation 12/02/16 Douglas Cadet MD [address] [place] [address] Gastroenterology 08/13/21 Rosalba Pendleton APRN IRRIGATOR OVERHEAD [address] [place] [address] Nurse Practitioner Neurology 09/05/21 Rosalba Pendleton APRN IRRIGATOR OVERHEAD [address] [place] [address] Assigned Neuroscience Provider 11/09/21 Douglas Cadet MD [address] [place] [address] Assigned Gastroenterology Provider 03/14/22 09/03/23 Marlo Madsen MD [address] [place] [address] Assigned Heart and Vascular Provider 03/14/22 Abby Vasquez MD [address] [place] [address] Gastroenterology 07/16/22 Abby Vasquez MD [address] [place] [address] Assigned PCP 09/26/22 10/06/23 documented as of this encounter
--- OUTSIDE RECORDS SUMMARY | 2023-10-25 14:15 | XMS_ITS | Encounter Summary ---
Author Name Unknown Organization [place] Address [address] [facility] [place] [address] Care Team Providers Care Fuel System Maintenance Worker Name Role Phone Monty Musa MD Primary Care Provider [phone] Alfonso Tang Unavailable Unavailable Dayanara Bee MD Unavailable [phone] Min Lange MD Unavailable Unavailable Albert Gee MD Unavailable [phone] Mel Buckley RN Unavailable [phone] Douglas Cadet MD Unavailable [phone] Rosalba Pnedleton APRN MOLD HOLDER Unavaila ble Rosalba Pendleton APRN MOLD HOLDER Unavaila ble Douglas Cadet MD Unavailable [phone] Albert Gee MD Unavailable [phone] Abby Vasquez MD Unavailable Abby Vasquez MD Unavailable Reason for Referral * Consultation (Routine: Next available opening) - Pending Review Specialty Diagnoses / Procedures Referred By Contgeovany t Referred To Contact Cardiovascular Disease Diagnoses Syncope and collapse Palpitations Vasovagal syncope Albert Gee MD [address] [place] [address] [address] Referral ID Status Reason Start Date Expiration Date V isits Requested Visits Authorized [id number] Pending Review 04/27/2023 04/26/2024 1 1 Scheduling Instructions Video visit with Dr. Gee Question Answer Follow-up with: Self Reason for follow-up: EP Scheduling Instructions: [facility] will call you to coordinate your care as prescribed by your provider. If you have concerns about scheduling, please call [phone]. Comments [facility] will call you to coordinate your care as prescribed by your provider. If you have concerns about scheduling, please call [phone]. Reason for Visit * Reason Comments Follow Up Return Cardiology- 3 mo follow up for VVS * Consultation (Routine: Next available opening) - Pending Review Specialty Diagnoses / Procedures Referred By Contac t Referred To Contact Cardiovascular Disease Diagnoses Syncope and collapse Palpitations Vasovagal syncope Albert Gee MD [address] [place] [address] Referral ID Status Reason Start Date Expiration Date V isits Requested Visits Authorized [id number] Pending Review 01/19/2023 01/19/2024 1 1 Encounter Details Date Type Department Care Team (Late st Contact Info) Description 04/27/2023 2:30 PM CDT Office Visit [facility] Heart Clinic [address] [address] Albert Gee MD [address] [place] [address] [phone] Syncope and collapse; Palpitations; Vasovagal syncope Social [...] Sex Assigned at Female 10/31/2021 7:59 AM PST SUPERVISOR Gender Identity Female 10/31/2021 7:59 AM PST SUPERVISOR Sexual Orientation Straight 10/31/2021 7: 59 AM PST SUPERVISOR COVID-19 Exposure Response Date Recorded In [...] Follow up Visit: Video visit with Dr. Gee in 1 year If you have further questions, please utilize [employer] to contact us. Your Care Team: EP Cardiology Telephone Number Nurse Line Javier Wang RN For scheduling appointments: Leslie For procedure scheduling: Lizet Laguna For the Device Clinic (Pacemakers, ICDs, Loop Recorders) During business hours: [phone] After business hours: [phone]- select option 4 and ask for job code [id number]. On-call system controller for after hours or on weekends: [phone], option #4, and ask to speak to the on-call system controller. Cardiovascular Clinic: [address] [place] [address]. [place] [address] As always, Thank you for trusting us [...] was taking her first boxing class. The child care associate teacher on at that time did not show [...] Dawson MD; Location: [facility] OR ORTHOPEDIC SURGERY [facility] EXPLORATORY OF ABDOMEN ALLERGIES: Allergies Allergen Reactions [...] concerns. Albert Gee MD Cardiac Arrhythmia Service [facility] [phone] CC ALBERT GEE documented in this encounter [...] st Contact Info) Description 10/26/2023 1:00 PM PST SUPERVISOR Virtual Visit [facility] Gastroenterology Clinic [address] 4th [place] [address] Latricia Pettit PA-C [address] [place] [address] 10/28/2023 10:50 AM PST SUPERVISOR Therapy Visit [address] [address] Zain Quintana MD [address] [place] [address] Lainey Simon, PT [address] [place] [address] 11/04/2023 10:50 AM PST SUPERVISOR Therapy Visit [address] [address] Zain Quintana MD [address] [place] [address] Lainey Simon, PT [address] [place] [address] 11/17/2023 11:00 AM PST SUPERVISOR Therapy Visit [address] [address] Lainey Simon, PT [address] [place] [address] 11/24/2023 10:40 AM CDT Office Visit [facility] Gastroenterology Clinic [address] 4th [place] [phone] Abby Vasquez MD [address] [place] [address] 11/24/2023 1:30 PM CDT Therapy Visit [address] [place] [address] Alfred Lainey, PT [address] [place] [address] 12/01/2023 10:20 AM CDT Therapy Visit [address] [address] Lainey Simon, PT [address] [place] [address] 12/08/2023 10:20 AM CDT Therapy Visit [address] [address] Lainey Simon, PT [address] [place] [address] 01/13/2024 10:00 AM CDT Virtual Visit [facility] Neurology Clinic [address] [phone] Rosalba Pendleton, MAXIMILIANO [address] [place] [address] 01/20/2024 8:00 PM CDT Therapy Visit [facility] Sleep [place] [address] [address] [phone] 03/14/2024 10:30 AM CDT Office Visit [facility] Sleep [facility] [address] [address] [place] [address] Abhishek Acevedo PA-C 5544 [facility] [address] [place] [address] 03/21/2024 11:30 AM CDT Office Visit [facility] Colon and Rectal Surgery Clinic [address] 4th [place] [phone] Zain Quintana MD [address] [place] [address] 750385 Scheduled Referrals Name Type Priority Associated Diagnoses [...] documented as of this encounter Care Teams Fuel System Maintenance Worker Relationship Specialty Start Date End Date Monty Musa MD [facility] [address] [place] [address] PCP - General Family Medicine 08/13/21 Alfonso Tang [facility] [address] [place] [address] Family Practice 08/13/21 Dayanara Bee MD [address] [place] [address] Pediatrics 12/26/14 Min Lange MD [address] [place] [address] Neurology 03/30/16 Albert Gee MD [address] [place] [address] Cardiology 10/27/16 Mel Buckley, RN Nurse Coordinator Physical Medicine and Rehabilitation 12/02/16 Douglas Cadet MD [address] [place] [address] Gastroenterology 08/13/21 Rosalba Pendleton APRN MOLD HOLDER [address] [place] [address] Nurse Practitioner Neurology 09/05/21 Rosalba Pendleton APRN MOLD HOLDER [address] [place] [address] Assigned Neuroscience Provider 11/09/21 Douglas Cadet MD [address] [place] [address] Assigned Gastroenterology Provider 03/14/22 09/03/23 Albert Gee MD [address] [place] [address] [address] [place] [address] Assigned Heart and Vascular Provider 03/14/22 Abby Vasquez MD [address] [place] [address] Gastroenterology 07/16/22 Abby Vasquez MD [address] [place] [address] Assigned PCP 09/26/22 10/06/23 documented as of this encounter
--- OUTSIDE RECORDS SUMMARY | 2023-10-25 14:15 | XMS_ITS | Encounter Summary ---
Author Name Unknown Organization [place] Address [address] [facility] [place] [address] Care Team Providers Care Report Analyst Name Role Phone Monty Musa MD Primary Care Provider [phone] Alfonso Tang Unavailable Unavailable Dayanara Bee MD Unavailable [phone] Min Lange MD Unavailable Unavailable Marlo Madsen MD Unavailable [phone] Mel Buckley RN Unavailable [phone] Douglas Cadet MD Unavailable [phone] Rosalba Pendleton APRN CONSULTING MARINE ENGINEER Unavaila ble Rosalba Pendleton APRN CONSULTING MARINE ENGINEER Unavaila ble Douglas Cadet MD Unavailable [phone] Marlo Madsen MD Unavailable [phone] VisAbby kathleen MD Unavailable Abby Vasquez MD Unavailable Reason for Visit * Reason Onset Date Comments Results 04/04/2023 Was told they wo uld get the test results for covid test, wasn't avail on mychart. Wants to know the results Encounter Details Date Type Department Care Team (Late Contact Info) Description 04/04/2023 Telephone [facility] [address] [place] [address] Juliana Cartwright DO [address] [place] [address] Results (Was told they would get the [...] Sex Assigned at Female 10/31/2021 7:59 AM ANGLE SHEAR SET UP OPERATOR Gender Identity Female 10/31/2021 7:59 AM ANGLE SHEAR SET UP OPERATOR Sexual Orientation Straight 10/31/2021 7: 59 AM ANGLE SHEAR SET UP OPERATOR COVID-19 Exposure Response Date Recorded In [...] PM CDT Phone (Incoming) Latricia Hatch (Self) [phone] (M) Who ordered the test: Juliana Cartwright Type of test: Lab Date of test: 04/03/23 Where was the test performed: [facility] What are your questions/concerns?: What are the results Could we send this information to you in [employer] or would you prefer to receive a phone call?: Patient would like to be contacted via [employer] documented in this encounter Plan of Treatment Upcoming Encounters Date Type Department Care Team (Late st Contact Info) Description 10/26/2023 1:00 PM ANGLE SHEAR SET UP OPERATOR Virtual Visit [facility] Gastroenterology Clinic [address] 4th [place] [phone] Latricia Pettit PA-C [address] [place] [address] 10/28/2023 10:50 AM ANGLE SHEAR SET UP OPERATOR Therapy Visit [address] [address] Zain Quintana MD [address] [place] [address] Lainey Simon, PT [address] [place] [address] 11/04/2023 10:50 AM ANGLE SHEAR SET UP OPERATOR Therapy Visit [address] [address] Zain Quintana MD [address] [place] [address] Lainey Simon PT [address] [place] [address] 11/17/2023 11:00 AM ANGLE SHEAR SET UP OPERATOR Therapy Visit [address] [address] Lainey Simon PT [address] [place] [address] 11/24/2023 10:40 AM CDT Office Visit [facility] Gastroenterology Clinic [address] 4th [place] [phone] Abby Vasquez MD [address] [place] [address] 11/24/2023 1:30 PM CDT Therapy Visit [address] [address] Lainey Simon, PT [address] [place] [address] 12/01/2023 10:20 AM CDT Therapy Visit [address] [address] Lainey Simon, PT [address] [place] [address] 12/08/2023 10:20 AM CDT Therapy Visit [address] [address] Lainey Simon, PT [address] [place] [address] 01/13/2024 10:00 AM CDT Virtual Visit [facility] Neurology Clinic [address] 3rd [place] [phone] Rosalba Pendleton APRN [address] [id number] [place] [address] 01/20/2024 8:00 PM CDT Therapy Visit [facility] Sleep [address] [phone] 03/14/2024 10:30 AM CDT Office Visit [facility] Sleep [facility] [place] 6363 [facility] [address] [place] [phone] Abhishek Acevedo PA-C 6363 [facility] [address] [place] [place] [phone] 03/21/2024 11:30 AM CDT Office Visit [facility] Colon and Rectal Surgery Clinic [place] [address] [facility] 4th [place] [phone] Zain Quintana MD [address] [place] [address] [phone] documented as of this encounter Visit Diagnoses Not on filedocumented in this encounter Additional Health Concerns Infection Onset Date Last Indicated Resolved Time Rule Out COVID-19 04/03/2023 04/03/2023 04/04/2023 6:30 PM CDT Assessment Noted Time PHQ-9 Depression Total Score: 11 022 11:52 AM CDT documented as of this encounter Care Teams Report Analyst Relationship Specialty Start Date End Date Monty Musa MD [facility] [address] [place] [address] PCP - General Family Medicine 08/13/21 Alfonso Tang [facility] [address] [place] [address] Family Practice 08/13/21 Dayanara Bee MD [address] [facility] 75 [place] [address] Pediatrics 12/26/14 Min Lange MD [address] [facility] 75 [place] [address] Neurology 03/30/16 Marlo Madsen MD [address] [place] [address] Cardiology 10/27/16 Mel Buckley, RN Nurse Coordinator Physical Medicine and Rehabilitation 12/02/16 Douglas Cadet MD [address] [place] [address] Gastroenterology 08/13/21 Rosalba Pendleton [employer] CONSULTING MARINE ENGINEER [address] [place] [address] 094085 Nurse Practitioner Neurology 09/05/21 Rosalba Pendleton APRN CONSULTING MARINE ENGINEER [address] [place] [address] 695595 Assigned Neuroscience Provider 11/09/21 Douglas Cadet MD [address] [place] [address] Assigned Gastroenterology Provider 03/14/22 09/03/23 Marlo Madsen MD [address] [place] [address] Assigned Heart and Vascular Provider 03/14/22 Abby Vasquez MD [address] [place] [address] 671125 Gastroenterology 07/16/22 Abby Vasquez MD [address] [place] [address] Assigned PCP 09/26/22 10/06/23 documented as of this encounter
--- OUTSIDE RECORDS SUMMARY | 2023-10-25 14:15 | XMS_ITS | Encounter Summary ---
Author Name Unknown Organization [place] Address [address] [facility] [place] [address] Care Team Providers Care Pipe And Boiler Covers Supervisor Name Role Phone Monty Musa MD Primary Care Provider [phone] Alfonso Tang Unavailable Unavailable Dayanara Bee MD Unavailable [phone] Min Lange MD Unavailable Unavailable Marlo Madsen MD Unavailable [phone] Mel Buckley RN Unavailable [phone] Douglas Cadet MD Unavailable [phone] Rosalba Pendleton APRN LARD MIXER Unavaila ble Rosalba Pendleton APRN LARD MIXER Unavaila ble Douglas Cadet MD Unavailable [phone] Marlo Madsen MD Unavailable [phone] Abby Vasquez MD Unavailable Abby Vasquez MD Unavailable Reason for Visit * Reason Comments Follow Up Encounter Details Date Type Department Care Team (Latest Contact Info) Description 04/23/2023 11:30 AM CDT Office Visit [facility] Gastroenterology Clinic [place] [address] [facility] [address] 4th [place] [address] Abby Vasquez MD [address] [place], [place] 8[address] Darin Mckeon PA-C [address] [place], [place] [phone] Constipation, unspecified constipation type (Primary Dx); Chronic [...] Sex Assigned at Female 10/31/2021 7:59 AM BINGO CHECKER Gender Identity Female 10/31/2021 7:59 AM BINGO CHECKER Sexual Orientation Straight 10/31/2021 7: 59 AM BINGO CHECKER COVID-19 Exposure Response Date Recorded In the [...] addition of magnesium oxide please refrain from oymh-ipg-ndvmgvo use of magnesium citrate. - Contact GI clinic if you do not have success with above recommendations, and then can consider therapeutic gastrograffin enema To schedule endoscopic procedures you may call: [phone] To schedule radiology (imaging) tests you may call: [phone] To schedule an ENT appointment you may call: [phone] Please call my nurse Kaur ([phone]), Elisa ([phone]) with any questions or concerns. Return to GI Clinic in [address] Neva Vasquez to review your progress. Who do I call with any questions after my visit? Please be in touch if there are any further questions that arise following today's visit. There aremultiple ways to contact your gastroenterology care team. During business hours, you may reach a Gastroenterology nurse at [phone] and choose option 3. To schedule or reschedule an appointment, please call [phone]. You can always send a secure message through [employer]. [employer] messages are answered by your nurse or doctor typically within 24 hours. Please allow extra time on weekends and holidays. For urgent/emergent questions after business hours, you may reach the on-call GI Fellow by contacting the [facility] commuter train operator at . How will I get the results of any tests ordered? You will receive all of your results. If you have signed up for [employer], any tests ordered at your visit will be available to you after your physician reviews them. Typically this takes 1-2 weeks. Ifthere are urgent results that require a change in your care plan, your physician or nurse will callyou to discuss the next steps. What is [employer]? [employer] is a secure way for you to access all of your healthcare records from the [facility]. It is a web based computer program, so you can sign on to it from any location. It also allows you to send secure messages to your care team. I recommend signing up for [employer] access if you have not already done so and are comfortable with using a computer. How to I schedule a follow-up visit? If you did not schedule a follow-up visit today, please call [phone] to schedule a follow-up office visit. If you feel you received exceptional care and are interested in supporting the clinical and research goals of Darin Mckeon PA-C or the Division of Gastroenterology, Hepatology, and Nutrition please contact [email or web address] from the [facility] to discuss opportunities to donate. Sincerely, Darin Mckeon PA-C Division of Gastroenterology, Hepatology, and Nutrition [facility] documented in this encounter Progress Notes * Darin Mckeon PA-C - 04/23/2023 11:30 AM CDT Images from the original note were not included. Gastroenterology Visit for: Darin Hatch 1990 Reason for Visit: chief complaint Referred by: Pedro / Lady [facility] [id number] Patient Care Team: Monty Musa MD as [...] APRN CNP as Assigned Neuroscience Provider Douglas Cadet MD as Assigned Gastroenterology Provider Marlo Madsen [...] of large bowel movements most consistent with [place]ko Stool Scale Type 4. She then will [...] and Dr. Vasquez prior to moving to [place] in 2016 after getting . She moved back to [place] recently and was seen by Dr. Cadet in 02/2022 for chronic constipation, abdominal pain and nausea and this account underwriter on 08/19/2022. Briefly, she was started on Linzess around 2013 for chronic constipation which improved her constipation and resulted in BMs every other day. In 2017, she moved to [place] and stopped Linzess as she felt her [...] polyps. She subsequently had another colonoscopy in [place] which she reports was normal. In early 2020, she had a colonoscopy in [place] which was reported to be negative for [...] she is having typical bowel patterns with Elko stool type IV stools occurring consecutively for [...] addition of magnesium oxide please refrain from whgd-aky-xyulyyt use of magnesium citrate. - Contact GI [...] which message has been sent to clinical office support associate to obtain records. Per prior documentationand patient reports she has been on a 3-year recall. - Repeat colonoscopy pending on findings on most recent endoscopic evaluation ADDENDUM 05/05/2023: 10/2021 [facility] All polyps were benign either normal colonic [...] PA-C Division of Gastroenterology, Hepatology, and Nutrition [facility] Documentation assisted by voice recognition and documentation [...] st Contact Info) Description 10/26/2023 1:00 PM BINGO CHECKER Virtual Visit [facility] Gastroenterology Clinic [address] [place] [phone] Darin Mckeon PA-C [address] [place] [address] 10/28/2023 10:50 AM BINGO CHECKER Therapy Visit [address] [address] Zain Quintana MD [address] [place] [address] 411005 Lainey Simon PT [address] [place] [address] 11/04/2023 10:50 AM BINGO CHECKER Therapy Visit [address] [address] Zain Quintana MD [address] [place] [address] 942475 Lainey Simon PT [address] [place] [address] 11/17/2023 11:00 AM BINGO CHECKER Therapy Visit [address] [place] [address] Lainey Simon, PT [address] [place] [address] 11/24/2023 10:40 AM CDT Office Visit [facility] Gastroenterology Clinic [address] 4th [place] [phone] Abby Vasquez MD [address] [place] [address] 290455 11/24/2023 1:30 PM CDT Therapy Visit [address] [address] Lainey Simon, PT [address] [place] [address] 12/01/2023 10:20 AM CDT Therapy Visit [address] [address] Lainey Simon, PT [address] [place] [address] 12/08/2023 10:20 AM CDT Therapy Visit [address] [address] Lainey Simon, PT [address] [place] [address] 01/13/2024 10:00 AM CDT Virtual Visit [facility] Neurology [address] [place] [phone] Rosalba Pendleton APRN [address] [id number] [place] [address] 01/20/2024 8:00 PM CDT Therapy Visit [facility] Sleep [facility] [address] [place] [phone] 03/14/2024 10:30 AM CDT Office Visit [facility] [address] [phone] Abhishek Acevedo PA-C [address] [facility] 103 [place] [address] 03/21/2024 11:30 AM CDT Office Visit [facility] Colon and Rectal Surgery Clinic [place] 909 [facility] 4th [place] [phone] Zain Quintana MD [address] [place] [address] 261125 documented as of this encounter Visit Diagnoses Diagnosis Constipation, unspecified constipation type- Primary Chronic idiopathic constipation Unspecified constipation Chronic abdominal pain Abdominal pain, unspecified site Pelvic floor dysfunction Pelvic muscle wasting documented in this encounter Additional Health Concerns Assessment Noted Time PHQ-9 Depression Total Score: 11 022 11:52 AM CDT documented as of this encounter Care Teams Pipe And Boiler Covers Supervisor Relationship Specialty Start Date End Date Monty Musa MD [facility] [place] [address] [place] [address] PCP - General Family Medicine 08/13/21 Alfonso Tang [facility] [place] [address] [place] [address] Family Practice 08/13/21 Dayanara Bee MD [address] [place] [address] 75 [place] [address] Pediatrics 12/26/14 Min Lange MD 420 [facility] 75 [place] [address] Neurology 03/30/16 Marlo Madsen MD [address] [address] Cardiology 10/27/16 Mel Bucklye, RN Nurse Coordinator Physical Medicine and Rehabilitation 12/02/16 Douglas Cadet MD [address] [place] [address] Gastroenterology 08/13/21 Rosalba Pendleton APRN LARD MIXER [address] [place] [address] [phone] Nurse Practitioner Neurology 09/05/21 Rosalba Pendleton APRN LARD MIXER [address] [place] [address] 496885 Assigned Neuroscience Provider 11/09/21 Douglas Cadet MD [address] [place] [address] Assigned Gastroenterology Provider 03/14/22 09/03/23 Marlo Madsen MD [address] [address] Assigned Heart and Vascular Provider 03/14/22 Abby Vasquez MD [address] [place] [address] Gastroenterology 07/16/22 Abby Vasquez MD [address] [place] [address] Assigned PCP 09/26/22 10/06/23 documented as of this encounter
--- OUTSIDE RECORDS SUMMARY | 2023-10-25 14:15 | XMS_ITS | Encounter Summary ---
Author Name Unknown Organization [place] Address [address] [facility] [place] [address] Care Team Providers Care Director Of Officiating Name Role Phone Monty Musa MD Primary Care Provider [phone] Alfonso Tang Unavailable Unavailable Dayanara Bee MD Unavailable [phone] Min Lange MD Unavailable Unavailable Marlo Madsen MD Unavailable [phone] Mel Buckley RN Unavailable [phone] Douglas Cadet MD Unavailable [phone] Rosalba Pendleton APRN WARD AIDE Unavaila ble Rosalba Pendleton APRN WARD AIDE Unavaila ble Douglas Cadet MD Unavailable [phone] Marlo Madsen MD Unavailable [phone] Abby Vasquez MD Unavailable Abby Vasquez [...] Sex Assigned at Female 10/31/2021 7:59 AM HARPSICHORD MAKER Gender Identity Female 10/31/2021 7:59 AM HARPSICHORD MAKER Sexual Orientation Straight 10/31/2021 7: 59 AM HARPSICHORD MAKER COVID-19 Exposure Response Date Recorded In the last 10 days, have yo u been in contact with someone who was confirmed or suspected to have Coronavirus/COVID-19? No / Unsure 04/16/2023 10:05 AM CDT documented as of this encounter Plan of Treatment Upcoming Encounters Date Type Department Care Team (Late st Contact Info) Description 10/26/2023 1:00 PM HARPSICHORD MAKER Virtual Visit [facility] [address] [phone] Latricia Pettit PA-C [address] [place] [address] 10/28/2023 10:50 AM HARPSICHORD MAKER Therapy Visit [address] [address] Zain Quintana MD [address] [place] [address] Lainey Simon, JAY [address] [place] [address] 11/04/2023 10:50 AM HARPSICHORD MAKER Therapy Visit [address] [address] Zain Quintana MD [address] [place] [address] Lainey Simon, JAY [address] [place] [address] 11/17/2023 11:00 AM HARPSICHORD MAKER Therapy Visit [address] [address] Lainey Simon, PT [address] [place] [address] 11/24/2023 10:40 AM CDT Office Visit [facility] [address]th [place] [phone] Abby Vasquez MD [address] [place] [address] 625225 11/24/2023 1:30 PM CDT Therapy Visit [address] [address] Lainey Simon, PT [address] [place] [address] 12/01/2023 10:20 AM CDT Therapy Visit [address] [address] Lainey Simon, PT [address] [place] [address] 12/08/2023 10:20 AM CDT Therapy Visit [address] [address] Lainey Simon, PT [address] [place] [address] 01/13/2024 10:00 AM CDT Virtual Visit [facility] [address]rd [place] [phone] Rosalba Pendleton, PULMONOLOGY TECHNICIAN WARD AIDE [address] [facility] [id number] [address] 01/20/2024 8:00 PM CDT Therapy Visit [facility] [address] [facility] [address] [place] [phone] 03/14/2024 10:30 AM CDT Office Visit [facility] [address] [facility] [address] [place] [phone] Abhishek Acevedo PA-C [address] [facility] 103 [place], [place] [phone] 03/21/2024 11:30 AM CDT Office Visit [facility] [address] 4th [place] [phone] Zain Quintana MD [address] [place] [address] [phone] documented as of this encounter Visit Diagnoses Not on filedocumented in this encounter Additional Health Concerns Assessment Noted Time PHQ-9 Depression Total Score: 11 022 11:52 AM CDT documented as of this encounter Care Teams Director Of Officiating Relationship Specialty Start Date End Date Monty Musa MD [facility] [address] [place] [address] PCP - General Family Medicine 08/13/21 Alfonso Tang [facility] [address] [place] [address] Family Practice 08/13/21 Dayanara Bee MD [address] [place] [address] 75 [place] [address] Pediatrics 12/26/14 Min Lange MD [address] [facility] 75 [place] [address] Neurology 03/30/16 Marlo Madsen MD [address] [place] 177278 [place] [address] Cardiology 10/27/16 Mel Buckley, RN Nurse Coordinator Physical Medicine and Rehabilitation 12/02/16 Douglas Cadet MD 500 [place] [address] Gastroenterology 08/13/21 Rosalba Pendleton APRN WARD AIDE [address] [place] [address] [phone] Nurse Practitioner Neurology 09/05/21 Rosalba Pendleton APRN WARD AIDE [address] [place] [address] [phone] Assigned Neuroscience Provider 11/09/21 Douglas Cadet MD 500 [place] [address] Assigned Gastroenterology Provider 03/14/22 09/03/23 Marlo Madsen MD [address] [address] Assigned Heart and Vascular Provider 03/14/22 Abby Vasquez MD [address] [place] [address] Gastroenterology 07/16/22 Abby Vasquez MD 909 [place] [address] Assigned PCP 09/26/22 10/06/23 documented as of this encounter
--- OUTSIDE RECORDS SUMMARY | 2023-10-25 14:15 | XMS_ITS | Encounter Summary ---
Author Name Unknown Organization [place] Address [address] [facility] [place] [address] Care Team Providers Care Geophysical Laboratory Supervisor Name Role Phone Monty Musa MD Primary Care Provider [phone] Alfonso Tang Unavailable Unavailable Dayanara Bee MD Unavailable [phone] Min Lange MD Unavailable Unavailable Marlo Madsen MD Unavailable [phone] Mel Buckley RN Unavailable [phone] Douglas Cadet MD Unavailable [phone] Rosalba Pendleton APRN CENTRAL SERVICE TECH Unavaila ble Rosalba Pendleton APRN CENTRAL SERVICE TECH Unavaila ble Douglas Cadet MD Unavailable [phone] Marlo Madsen MD Unavailable [phone] Abby Vasquez MD Unavailable Abby Vasquez MD Unavailable Reason for Visit * Reason Comments Sinus Problem 2 days, sinus pressu re/pain/drainage, sore throat, cough, neg at home covid Encounter Details Date Type Department Care Team (Late st Contact Info) Description 04/03/2023 12:15 PM CDT Office Visit [facility] [address] [place] [address] Juliana Cartwright DO [address] [place] [address] Throat pain (Primary Dx); Upper respiratory tract infection, unspecified type Social History Tobacco Use Types Packs/Day Years Used Date Smoking Tobacco: Never Smokeless Tobacco: Never Alcohol Use Standard Drinks/Week Comments No 0 (1 standard drink = 0.6 oz pur e alcohol) PHQ-2 Answer Date Recorded PHQ-2 Score 2 04/02/2023 Sex and Gender Information Value Date Recorded Sex Assigned at Female 10/31/2021 7:59 AM CRAFT MANAGER Gender Identity Female 10/31/2021 7:59 AM CRAFT MANAGER Sexual Orientation Straight 10/31/2021 7: 59 AM CRAFT MANAGER COVID-19 Exposure Response Date Recorded In [...] st Contact Info) Description 10/26/2023 1:00 PM CRAFT MANAGER Virtual Visit [facility] [address]th [place] [address] Latricia Pettit PA-C [address] [place] [address] [phone] 10/28/2023 10:50 AM CRAFT MANAGER Therapy Visit [address] [address] Zain Quintana MD [address] [place] [address] Lainey Simon, PT [address] [place] [address] 11/04/2023 10:50 AM CRAFT MANAGER Therapy Visit [address] [address] Zain Quintana MD [address] [place] [address] Lainey Simon, PT [address] [place] [address] 11/17/2023 11:00 AM CRAFT MANAGER Therapy Visit [address] [address] Lainey Simon, PT [address] [place] [address] 11/24/2023 10:40 AM CDT Office Visit [facility] [address] 4th [place] [phone] Abby Vasquez MD [address] [place] [address] 11/24/2023 1:30 PM CDT Therapy Visit [address] [address] [place] [address] [place] [address] 12/01/2023 10:20 AM CDT Therapy Visit [address] 300 [place] [address] Alfred [place], [place] [phone] [place] [address] 12/08/2023 10:20 AM CDT Therapy Visit [address] [address] Alfred Lainey, PT [address] [place] [address] 01/13/2024 10:00 AM CDT Virtual Visit [facility] [address] [phone] Rosalba Pendleton, LUBRICATION EQUIPMENT SERVICER [address] [address] 01/20/2024 8:00 PM CDT Therapy Visit [facility] [address] [place] [address] [place] [phone] 03/14/2024 10:30 AM CDT Office Visit [facility] [address] [place] [phone] Abhishek Acevedo PA-C [address] [facility] [address] [place] [address] 03/21/2024 11:30 AM CDT Office Visit [facility] [address] [phone] Zain Quintana MD [address] [place] [address] [phone] documented as of this encounter Procedures Procedure [...] by PCR Nose (04/03/2023 12:20 PM CDT) Pathologist [facility] SARS CoV2 PCR Negative Negative 04/04/2023 6:30 PM CDT [facility] Comment:NEGATIVE: SARS-CoV-2 (COVID-19) RNA not detected, presumed negative. Swab NASAL STRUCTURE / Unknown Non-blood Collection / Unknown 04/03/2023 12:20 PM CDT 04/03/2023 12:21 PM CDT Narrative [facility] - 04/04/2023 6:30 PM CDT Testing was performed using the Aptima SARS-CoV-2 Assay on the [employer] Instrument System. Additional information about this Emergency [...] COVID-19. This test was validated by the [facility]. This laboratory is certified under the Clinical Laboratory Improvement Amendments of 1988 (CLIA-88) as qualified to perform high complexity laboratory testing. Juliana Cartwright DO LAB - MICRO GENER AL ORDERABLES [facility] Inf. Diseases Diag. Lab 500 [facility], Room [address] [address], [facility] [phone] * Group A Streptococcus PCR Throat Swab (04/03/2023 11:55 AM CDT) Group A strep by PCR Not Detected Not Detected 04/04/2023 3:32 PM CDT [facility] Swab STRUCTURE OF ANTERIOR PORTION OF NECK / Unknown Non-blood Collection / Unknown 04/03/2023 11:55 AM CDT 04/03/2023 12:04 PM CDT Narrative [facility] - 04/04/2023 3:32 PM CDT The Xpert Xpress Strep A test, performed on the [employer] Instrument Systems, is a rapid, qualitative in [...] MICRO GEN ERAL ORDERABLES Performing Organization Address City/[facility]/ZIP Co de Phone Number [facility] Inf. Diseases Diag. Lab 500 [facility], [address] [address], [facility] [phone] * Streptococcus A Rapid Screen w/Reflex to PCR - Clinic Collect (04/03/2023 11:55 AM CDT) Group A Strep antigen Negative Negative 04/03/2023 12:04 PM CDT [facility] Swab STRUCTURE OF ANTERIOR PORTION OF NECK / Unknown Non-blood Collection / Unknown 04/03/2023 11:55 AM CDT 04/03/2023 11:57 AM CDT Sweta Angela Garzon PA-C LAB - MICRO GEN ERAL ORDERABLES [facility] [address] [facility] Lab (no room number, 1st floor of clinic) [place] [address], [facility] [phone] documented in this encounter Visit Diagnoses Diagnosis Throat pain- Primary Upper respiratory tract infection, unspecified type documented in this encounter Additional Health Concerns Infection Onset Date Last Indicated Resolved Time Rule Out COVID-19 04/03/2023 04/03/2023 04/04/2023 6:30 PM CDT Assessment Noted Time PHQ-9 Depression Total Score: 11 022 11:52 AM CDT documented as of this encounter Care Teams Geophysical Laboratory Supervisor Relationship Specialty Start Date End Date Monty Musa MD [facility] [address] [place] [address] PCP - General Family Medicine 08/13/21 Alfonso Tang [facility] [address] [place] [address] Family Practice 08/13/21 Dayanara Bee MD 420 [facility] 75 [place] [address] Pediatrics 12/26/14 Min Lange MD 420 [facility] 75 [place] [address] Neurology 03/30/16 Marlo Madsen MD 420 [facility] 508 [place] [address] Cardiology 10/27/16 Mel Buckley, RN Nurse Coordinator Physical Medicine and Rehabilitation 12/02/16 Douglas Cadet MD 500 [place] [address] Gastroenterology 08/13/21 Rosalba Pendleton APRN CENTRAL SERVICE TECH [address] [place] [address] Nurse Practitioner Neurology 09/05/21 Rosalba Pendleton APRN CENTRAL SERVICE TECH [address] [place] [address] Assigned Neuroscience Provider 11/09/21 Douglas Cadet MD 500 [place] [address] Assigned Gastroenterology Provider 03/14/22 09/03/23 Marlo Madsen MD [address] [place] [address] 508 [place] [address] Assigned Heart and Vascular Provider 03/14/22 Abby Vasquez MD [address] [place] [address] Gastroenterology 07/16/22 Abby Vasquez MD [address] [place] [address] Assigned PCP 09/26/22 10/06/23 documented as of this encounter
--- OUTSIDE RECORDS SUMMARY | 2023-10-25 14:15 | XMS_ITS | Encounter Summary ---
Author Name Unknown Organization [place] Address [address] [facility] [address] Care Team Providers Care Postal Carrier Name Role Phone Monty Musa MD Primary Care Provider [phone] Alfonso Tang Unavailable Unavailable Dayanara Bee MD Unavailable [phone] Min Lange MD Unavailable Unavailable Marlo Madsen MD Unavailable [phone] Mel Buckley RN Unavailable [phone] Douglas Cadet MD Unavailable [phone] Rosalba Pendleton APRN ARTISTS' MODEL Unavaila ble Rosalba Pendleton APRN ARTISTS' MODEL Unavaila ble Douglas Cadet MD Unavailable [phone] Marlo Madsen MD Unavailable [phone] Abby Vasquez MD Unavailable Abby Vasquez MD Unavailable Reason for Visit * Reason Onset Date Comments Appointment 04/27/2023 Follow up in Nov [facility] Encounter Details Date Type Department Care Team (Late st Contact Info) Description 04/27/2023 Telephone [facility] [place] [address] [phone] Abby Vasquez MD [address] [place] [address] [phone] Appointment (Follow up in July ) Social History Tobacco Use Types Packs/Day Years Used Date Smoking Tobacco: Never Smokeless Tobacco: Never Alcohol Use Standard Drinks/Week Comments No 0 (1 standard drink = 0.6 oz pur e alcohol) PHQ-2 Answer Date Recorded PHQ-2 Score 2 04/02/2023 Sex and Gender Information Value Date Recorded Sex Assigned at Female 10/31/2021 7:59 AM ADMINISTRATOR HEALTH CARE FACILITY Gender Identity Female 10/31/2021 7:59 AM ADMINISTRATOR HEALTH CARE FACILITY Sexual Orientation Straight 10/31/2021 7: 59 AM ADMINISTRATOR HEALTH CARE FACILITY COVID-19 Exposure Response Date Recorded In the last 10 days, have yo u been in contact with someone who was confirmed or suspected to have Coronavirus/COVID-19? Unable to assess 04/27/2023 10:12 AM CDT documented as of this encounter Miscellaneous Notes * Telephone Encounter - Jenny Keita - 04/27/2023 10:13 AM CDT Fpga Engineer received a message from Latricia Pettit to help get Pt scheduled for a follow up visit with Dr. Vasquez in July. Pt is now scheduled for an appointment with Dr. Vasquez on 07/14/2023 at 8:40am for an in-person clinic visit. documented in this encounter Plan of Treatment Upcoming Encounters Date Type Department Care Team (Late st Contact Info) Description 10/26/2023 1:00 PM ADMINISTRATOR HEALTH CARE FACILITY Virtual Visit [facility] [address] [phone] Latricia Pettit PA-C [address] [place] [address] 10/28/2023 10:50 AM ADMINISTRATOR HEALTH CARE FACILITY Therapy Visit [facility] [place] [address] Zain Quintana MD [address] [place] [address] Lainey Simon, PT [address] [place] [address] 11/04/2023 10:50 AM ADMINISTRATOR HEALTH CARE FACILITY Therapy Visit [address] [address] Zain Quintana MD [address] [place] [address] Lainey Simon PT [address] [place] [address] 11/17/2023 11:00 AM ADMINISTRATOR HEALTH CARE FACILITY Therapy Visit [address] [address] Lainey Simon PT [address] [place] [address] 11/24/2023 10:40 AM CDT Office Visit [facility] [address] [phone] Abby Vasquez MD [address] [place] [address] 11/24/2023 1:30 PM CDT Therapy Visit [address] [address] Lainey Simon PT [address] [place] [address] 12/01/2023 10:20 AM CDT Therapy Visit [facility] [address] [facility] [address] [place] [address] [place] [address] [place] [address] 12/08/2023 10:20 AM CDT Therapy Visit [facility] [address] [facility] 300 [place] [address] [place] [address] [place], [place] 23[address] 01/13/2024 10:00 AM CDT Virtual Visit [facility]rology [facility] [address]rd [place] [phone] Rosalba Pendleton, MAXIMILIANO [address] [place] [address] 01/20/2024 8:00 PM CDT Therapy Visit [facility] [address] [phone] 03/14/2024 10:30 AM CDT Office Visit [facility] [address] [phone] Abhishek Acevedo PA-C [address] [address] 03/21/2024 11:30 AM CDT Office Visit [facility] [address] 4th [place] [phone] Zain Quintana MD [address] [place] [address] documented as of this encounter Visit Diagnoses Not on filedocumented in this encounter Additional Health Concerns Assessment Noted Time PHQ-9 Depression Total Score: 11 022 11:52 AM CDT documented as of this encounter Care Teams Postal Carrier Relationship Specialty Start Date End Date Monty Musa MD [facility] [address] [place] [address] PCP - General Family Medicine 08/13/21 Alfonso Tang [facility] [address] [place] [address] Family Practice 08/13/21 Dayanara Bee MD [address] [place] [address] 75 [place] [address] Pediatrics 12/26/14 Min Lange MD [address] [place] [address] 75 [place] [address] Neurology 03/30/16 Marlo Madsen MD [address] [place] [address] 508 [place] [address] Cardiology 10/27/16 Mel Buckley, RN Nurse Coordinator Physical Medicine and Rehabilitation 12/02/16 Douglas Cadet MD [address] [place] [address] Gastroenterology 08/13/21 Rosalba Pendleton APRN ARTISTS' MODEL [address] [place] [address] Nurse Practitioner Neurology 09/05/21 Rosalba Pendleton APRN ARTISTS' MODEL [address] [place], [place] [address]J [place] [address] Assigned Neuroscience Provider 11/09/21 Douglas Cadet MD [address] [place] [address] Assigned Gastroenterology Provider 03/14/22 09/03/23 Marlo Madsen MD [address] [place] [address] 508 [place] [address] Assigned Heart and Vascular Provider 03/14/22 Abby Vasquez MD [address] [place] [address] Gastroenterology 07/16/22 Abby Vasquez MD [address] [place] [address] Assigned PCP 09/26/22 10/06/23 documented as of this encounter
--- OUTSIDE RECORDS SUMMARY | 2023-10-25 14:15 | XMS_ITS | Encounter Summary ---
Author Name Unknown Organization [place] Address [address] [facility] [place] [address] Care Team Providers Care Instrument Shop Supervisor Name Role Phone Monty Musa MD Primary Care Provider [phone] Alfonso Tang Unavailable Unavailable Dayanara Bee MD Unavailable [phone] Min Lange MD Unavailable Unavailable Marlo Madsen MD Unavailable [phone] Mel Buckley RN Unavailable [phone] Douglas Cadet MD Unavailable [phone] Rosalba Pendleton APRN TACTICAL DECEPTION PLANS OFFICER Unavaila ble Rosalba Pendleton APRN TACTICAL DECEPTION PLANS OFFICER Unavaila ble Douglas Cadet MD Unavailable [phone] Marlo Madsen MD Unavailable [phone] Abby Vasquez MD Unavailable Abby Vasquez MD Unavailable Encounter Details Date Type Department Care Team (Late st Contact Info) Description 02/25/2023 [facility] Only [facility] Heart [place] [place] [address] Marlo Madsen MD [address] [facility] 508 [place] [address] Syncope and collapse; Palpitations; Vasovagal syncope Social History Tobacco Use Types Packs/Day Years Used Date Smoking Tobacco: Never Smokeless Tobacco: Never Alcohol Use Standard Drinks/Week Comments No 0 (1 standard drink = 0.6 oz pur e alcohol) PHQ-2 Answer Date Recorded PHQ-2 Score 2 01/19/2023 Sex and Gender Information Value Date Recorded Sex Assigned at Female 10/31/2021 7:59 AM WIRE WINDER Gender Identity Female 10/31/2021 7:59 AM WIRE WINDER Sexual Orientation Straight 10/31/2021 7: 59 AM WIRE WINDER documented as of this encounter Plan of Treatment Upcoming Encounters Date Type Department Care Team (Late st Contact Info) Description 10/26/2023 1:00 PM WIRE WINDER Virtual Visit [facility] Gastroenterology Clinic [address] [phone] Latricia Pettit PA-C [address] [place] [address] 10/28/2023 10:50 AM WIRE WINDER Therapy Visit [address] [address] Zain Quintana MD [address] [place] [address] Lainey Simon PT [address] [place] [address] 11/04/2023 10:50 AM WIRE WINDER Therapy Visit [address] [address] Zain Quintana MD [address] [place] [address] Lainey Simon PT [address] [place] [address] 11/17/2023 11:00 AM WIRE WINDER Therapy Visit [address] [address] Lainey Simon, PT [address] [place] [address] 36063 11/24/2023 10:40 AM CDT Office Visit [facility] Gastroenterology Clinic [address] 4th [place] [phone] Abby Vasquez MD [address] [place] [address] 11/24/2023 1:30 PM CDT Therapy Visit [address] [address] Lainey Smion, PT [address] [place] [address] 12/01/2023 10:20 AM CDT Therapy Visit [address] [address] Lainey Simon, PT [address] [place] [address] 12/08/2023 10:20 AM CDT Therapy Visit [address] [address] Lainey Simon, PT [address] [place] [address] 01/13/2024 10:00 AM CDT Virtual Visit [facility] Neurology Clinic [address] 3rd [place] [phone] Rosalba Pendleton APRN [address] [id number] [place] [address] 01/20/2024 8:00 PM CDT Therapy Visit [facility] Sleep [facility] [address] [phone] 03/14/2024 10:30 AM CDT Office Visit [facility] [address] [address] Abhishek Acevedo PA-C 6349 [facility] 103 [place] [address] 03/21/2024 11:30 AM CDT Office Visit [facility] Colon [facility] Rectal Surgery Clinic [address] [phone] Zain Quintana MD [address] [place] [address] 830445 documented as of this encounter Procedures Procedure [...] Assessment Noted Time PHQ-9 Depression Total Score: 022 11:52 AM CDT documented as of this encounter Care Teams Instrument Shop Supervisor Relationship Specialty Start Date End Date Monty Musa MD [facility] [address] [place] [address] PCP - General Family Medicine 08/13/21 Alfonso Tang [facility] MEDICAL [facility] [address] [place] [address] [facility] 08/13/21 Dayanara Bee MD [address] [facility] 75 [place], [place] 443835 Pediatrics 12/26/14 Min Lange MD [address] [facility] 75 [place] [address] Neurology 03/30/16 Marlo Madsen MD [address] [facility] 508 [place], [place] 4[address] Cardiology 10/27/16 Mle Buckley, DIAZ Nurse Coordinator Physical Medicine and Rehabilitation 12/02/16 Douglas Cadet MD 500 [place] [address] Gastroenterology 08/13/21 Rosalba Pendleton APRN TACTICAL DECEPTION PLANS OFFICER [address] [place], [place] [address]J [place], [place] [address] Nurse Practitioner Neurology 09/05/21 Rosalba Pendleton APRN TACTICAL DECEPTION PLANS OFFICER [address] [place] [address] 927695 Assigned Neuroscience Provider 11/09/21 Douglas Cadet MD 500 [place] [address] Assigned Gastroenterology Provider 03/14/22 09/03/23 Marlo Madsen MD [address] [facility] 508 [place], [place] 077585 Assigned Heart and Vascular Provider 03/14/22 Abby Vasquez MD [address] [place] [address] 378415 Gastroenterology 07/16/22 Abby Vasquez MD [address] [place] [address] 146125 Assigned PCP 09/26/22 10/06/23 documented as of this encounter
--- OUTSIDE RECORDS SUMMARY | 2023-10-25 14:15 | XMS_ITS | Encounter Summary ---
Author Name Unknown Organization [place] Address [address] [facility] [place] [address] Care Team Providers Care Rn Cardiovascular Name Role Phone Monty Musa MD Primary Care Provider [phone] Alfonso Tang Unavailable Unavailable Dayanara Bee MD Unavailable [phone] Min Lange MD Unavailable Unavailable Marlo Madsen MD Unavailable [phone] Mel Buckley RN Unavailable [phone] Douglas Cadet MD Unavailable [phone] Rosalba Pendleton APRN SALESPERSON AUTOMOBILES Unavaila ble Rosalba Pendleton APRN SALESPERSON AUTOMOBILES Unavaila ble Douglas Cadet MD Unavailable [phone] Marlo Madsen MD Unavailable [phone] Abby Vasquez MD Unavailable Abby Vasquez MD Unavailable Reason for Visit * Reason Comments Follow Up Encounter Details Date Type Department Care Team (Late st Contact Info) Description 04/02/2023 9:00 AM CDT Virtual Visit [facility] Neurology Clinic [address] 3rd [place] [phone] Rosalba Pendleton APRN SALESPERSON AUTOMOBILES [address] [facility] [id number] [place] [address] Migraine without aura and without status migrainosus, [...] Sex Assigned at Female 10/31/2021 7:59 AM IMMIGRATION JUDGE Gender Identity Female 10/31/2021 7:59 AM IMMIGRATION JUDGE Sexual Orientation Straight 10/31/2021 7: 59 AM IMMIGRATION JUDGE COVID-19 Exposure Response Date Recorded In the [...] documented in this encounter Progress Notes * Roslaba Pendleton APRN CNP - 04/02/2023 9:00 AM CDT Larticia is a 33 year old who is being evaluated via a billable video visit. Subjective Latricia is a 33 year old, presenting for the following health issues: Follow Up Lats visit 01/14/2022, see note for sam Saw Dr Lange in 2016 -note reviewed Was seen at [facility]-note reviewed -last visit in January 2020 Doing [...] as noted above Rosalba Pendleton APRN, CNP [facility] Headache certified [facility] Video-Visit Details Type of service: [...] by: VIDEO VISIT: Text to cell phone: [phone] Will anyone else be joining the visit? NO How would you like to obtain your AVS? MyChart Are changes needed to the allergy or medication list? NO Reason for visit: Follow Up documented in this encounter Plan of Treatment Upcoming Encounters Date Type Department Care Team (Late st Contact Info) Description 10/26/2023 1:00 PM IMMIGRATION JUDGE Virtual Visit [facility] Gastroenterology Clinic [address] 4th [place] [address] Latricia Pettit PA-C [address] [place] [address] 10/28/2023 10:50 AM IMMIGRATION JUDGE Therapy Visit [address] [address] Zain Quintana MD [address] [place] [address] Lainey Simon, PT [address] [place] [address] 11/04/2023 10:50 AM IMMIGRATION JUDGE Therapy Visit [address] [address] Zain Quintana MD [address] [place] [address] Lainey Simon, PT [address] [place] [address] 11/17/2023 11:00 AM IMMIGRATION JUDGE Therapy Visit [address] [address] Lainey Simon, PT [address] [place] [address] 11/24/2023 10:40 AM CDT Office Visit [facility] [address] [phone] Abby Vasquez MD [address] [place] [address] 11/24/2023 1:30 PM CDT Therapy Visit [address] [address] Lainey Simon, PT [address] [place] [address] 12/01/2023 10:20 AM CDT Therapy Visit [address] [address] Lainey Simon, PT [address] [place] [address] 12/08/2023 10:20 AM CDT Therapy Visit [address] [address] Lainey Simon, PT [address] [place] [address] 01/13/2024 10:00 AM CDT Virtual Visit [facility] [address] [phone] Rosalba Pendleton, MAXIMILIANO [address] [place] [address] 01/20/2024 8:00 PM CDT Therapy Visit [facility] Sleep [place] [address] SYDNIE Martinez [phone] 03/14/2024 10:30 AM CDT Office [facility] Sleep [place] [address] [place] [address] Abhishek Acevedo PA-C [address] [place] [address] [place] [address] 03/21/2024 11:30 AM CDT Office Visit [facility] Colon and Rectal Surgery [facility] [place] 909 [facility] 4th [place] [phone] Zain Quintana MD 500 [place] [address] documented as of this encounter Visit Diagnoses Diagnosis Migraine without aura and without status migrainosus, not intractable- Primary Migraine without aura, without mention of intractable migraine without mention of status migrainosus documented in this encounter Additional Health Concerns Assessment Noted Time PHQ-9 Depression Total Score: 11 022 11:52 AM CDT documented as of this encounter Care Teams Rn Cardiovascular Relationship Specialty Start Date End Date Monty Musa MD [facility] [address] [place] [address] PCP - General Family Medicine 08/13/21 Aflonso Tang [facility] [address] [place] [address] Family Practice 08/13/21 Dayanara Bee MD [address] [place] [address] 75 [place], [place] [address] Pediatrics 12/26/14 Min Lange MD 420 [facility] 75 [place] [address] Neurology 03/30/16 Marlo Madsen MD [address] [place] [address] 508 [place] [address] Cardiology 10/27/16 Mel Buckley, RN Nurse Coordinator Physical Medicine and Rehabilitation 12/02/16 Douglas Cadet MD [address] [place] [address] Gastroenterology 08/13/21 Rosalba Pendleton APRN SALESPERSON AUTOMOBILES [address] [place] [address] Nurse Practitioner Neurology 09/05/21 Rosalba Pendleton APRN SALESPERSON AUTOMOBILES [address] [place] [address] Assigned Neuroscience Provider 11/09/21 Douglas Cadet MD [address] [place] [address] Assigned Gastroenterology Provider 03/14/22 09/03/23 Marlo Madsen MD [address] [place] [address] 508 [place] [address] Assigned Heart and Vascular Provider 03/14/22 Abby Vasquez MD [address] [place] [address] 697105 Gastroenterology 07/16/22 Abby Vasquez MD [address] [place] [address] 086455 Assigned PCP 09/26/22 10/06/23 documented as of this encounter
--- OUTSIDE RECORDS SUMMARY | 2023-10-25 14:15 | XMS_ITS | Encounter Summary ---
Author Name Unknown Organization [place] Address [address] [facility] [place] [address] Care Team Providers Care Profile Shaper Operator Name Role Phone Monty uMsa MD Primary Care Provider [phone] Alfonso Tang Unavailable Unavailable Dayanara Bee MD Unavailable [phone] Min Lange MD Unavailable Unavailable Marlo Madsen MD Unavailable [phone] Mel Buckley RN Unavailable [phone] Douglas Cadet MD Unavailable [phone] Rosalba Pendleton APRN FUR DRY CLEANER Unavaila ble Rosalba Pendleton APRN FUR DRY CLEANER Unavaila ble Douglas Cadet MD Unavailable [phone] Marlo Madsen MD Unavailable [phone] Abby [...] Sex Assigned at Female 10/31/2021 7:59 AM AIRLINE SECURITY REPRESENTATIVE Gender Identity Female 10/31/2021 7:59 AM AIRLINE SECURITY REPRESENTATIVE Sexual Orientation Straight 10/31/2021 7: 59 AM AIRLINE SECURITY REPRESENTATIVE COVID-19 Exposure Response Date Recorded In the last 10 days, have yo u been in contact with someone who was confirmed or suspected to have Coronavirus/COVID-19? No / Unsure 04/23/2023 11:23 AM CDT documented as of this encounter Plan of Treatment Upcoming Encounters Date Type Department Care Team (Late st Contact Info) Description 10/26/2023 1:00 PM AIRLINE SECURITY REPRESENTATIVE Virtual Visit [facility] Gastroenterology Clinic [address] [phone] Latricia Pettit PA-C [address] [place] [address] 10/28/2023 10:50 AM AIRLINE SECURITY REPRESENTATIVE Therapy Visit [address] [address] Zain Quintana MD [address] [place] [address] Lainey Simon, JAY [address] [place] [address] 11/04/2023 10:50 AM AIRLINE SECURITY REPRESENTATIVE Therapy Visit [address] [address] Zain Quintana MD [address] [place] [address] Lainey Simon, JAY [address] [place] [address] 11/17/2023 11:00 AM AIRLINE SECURITY REPRESENTATIVE Therapy Visit [address] [address] Lainey Simon, PT [address] [place] [address] 11/24/2023 10:40 AM CDT Office Visit [facility] Gastroenterology Clinic [address] 4th [place] [phone] Abby Vasquez MD [address] [place] [address] 048095 11/24/2023 1:30 PM CDT Therapy Visit [address] [address] Lainey Simon, PT [address] [place] [address] 12/01/2023 10:20 AM CDT Therapy Visit [address] [address] Lainey Simon, PT [address] [place] [address] 12/08/2023 10:20 AM CDT Therapy Visit [address] [address] Lainey Simon, PT [address] [place] [address] 01/13/2024 10:00 AM CDT Virtual Visit [facility] Neurology Clinic [address] 3rd [place] [phone] Rosalba Pendleton, SPORT INTERNSHIP FUR DRY CLEANER 909 [facility] [id number] [place] [address] 01/20/2024 8:00 PM CDT Therapy Visit [facility] 6363 [facility] 103 [place] [phone] 03/14/2024 10:30 AM CDT Office Visit [facility] 6363 [facility] 103 [place] [phone] Abhishek Acevedo PA-C 1985 [facility] 103 [place], [place] [phone] 03/21/2024 11:30 AM CDT Office Visit [facility] Colon and Rectal Surgery Clinic [address] 4th [place] [phone] Zain Quintana MD [address] [place] [address] 605365 documented as of this encounter Visit Diagnoses Not on filedocumented in this encounter Additional Health Concerns Assessment Noted Time PHQ-9 Depression Total Score: 11 022 11:52 AM CDT documented as of this encounter Care Teams Profile Shaper Operator Relationship Specialty Start Date End Date Monty Musa MD [facility] [address] [place] [address] PCP - General Family Medicine 08/13/21 Alfonso Tang [facility] [address] [place] [address] Family Practice 08/13/21 Dayanara Bee MD [address] [place] [address] 75 [place] [address] Pediatrics 12/26/14 Min Lange MD 420 [facility] 75 [place] [address] Neurology 03/30/16 Marlo Madsen MD [address] 738068 [place] [address] Cardiology 10/27/16 Mel Buckley, RN Nurse Coordinator Physical Medicine and Rehabilitation 12/02/16 Douglas Cadet MD 500 [place] [address] Gastroenterology 08/13/21 Rosalba Pendleton APRN FUR DRY CLEANER [address] [place] [address] 737405 Nurse Practitioner Neurology 09/05/21 Rosalba Pendleton APRN FUR DRY CLEANER [address] [place] [address] 666215 Assigned Neuroscience Provider 11/09/21 Douglas Cadet MD 500 [place] [address] Assigned Gastroenterology Provider 03/14/22 09/03/23 Marlo Madsen MD [address] [address] Assigned Heart and Vascular Provider 03/14/22 Abby Vasquez MD [address] [place] [address] Gastroenterology 07/16/22 Abby Vasquez MD 909 [place] [address] Assigned PCP 09/26/22 10/06/23 documented as of this encounter
--- OUTSIDE RECORDS SUMMARY | 2023-10-25 14:15 | XMS_ITS | Encounter Summary ---
Author Name Unknown Organization [place] Address [address] [facility] [place] [address] Care Team Providers Care Lion Trainer Name Role Phone Monty Musa MD Primary Care Provider [phone] Alfonso Tang Unavailable Unavailable Dayanara Bee MD Unavailable [phone] Min Lange MD Unavailable Unavailable Marlo Madsen MD Unavailable [phone] Mel Buckley RN Unavailable [phone] Douglas Cadet MD Unavailable [phone] Rosalba Pendleton APRN LAWN CARE WORKER Unavaila ble Rosalba ePndleton APRN LAWN CARE WORKER Unavaila ble Douglas Cadet MD Unavailable [phone] Marlo Madsen MD Unavailable [phone] Abby Vasquez MD Unavailable Abby Vasquez [...] Sex Assigned at Female 10/31/2021 7:59 AM BRIGADIER Gender Identity Female 10/31/2021 7:59 AM BRIGADIER Sexual Orientation Straight 10/31/2021 7: 59 AM BRIGADIER COVID-19 Exposure Response Date Recorded In the last 10 days, have yo u been in contact with someone who was confirmed or suspected to have Coronavirus/COVID-19? Unable to assess 04/27/2023 10:12 AM CDT documented as of this encounter Plan of Treatment Upcoming Encounters Date Type Department Care Team (Late st Contact Info) Description 10/26/2023 1:00 PM BRIGADIER Virtual Visit [facility] Gastroenterology Clinic [address] [phone] Latricia Pettit PA-C [address] [place] [address] 10/28/2023 10:50 AM BRIGADIER Therapy Visit [address] [address] Zain Quintana MD [address] [place] [address] Lainey Simon, PT [address] [place] [address] 11/04/2023 10:50 AM BRIGADIER Therapy Visit [address] [address] Zain Quintana MD [address] [place] [address] Lainey Simon, PT [address] [place] [address] 11/17/2023 11:00 AM BRIGADIER Therapy Visit [address] [address] Lainey Simon, PT [address] [place] [address] 11/24/2023 10:40 AM CDT Office Visit [facility] Gastroenterology Clinic [address]th [place] [phone] Abby Vasquez MD [address] [place] [address] 868655 11/24/2023 1:30 PM CDT Therapy Visit [address] [address] Lainey Simon, PT [address] [place] [address] 12/01/2023 10:20 AM CDT Therapy Visit [address] [address] Lainey Simon, PT [address] [place] [address] 12/08/2023 10:20 AM CDT Therapy Visit [address] [address] Lainey Simon, PT [address] [place] [address] 01/13/2024 10:00 AM CDT Virtual Visit [facility] Neurology Clinic [address]rd [place] [phone] Rosalba Pendleton APRN LAWN CARE WORKER [address] [facility] [place] [id number] [place] [address] 01/20/2024 8:00 PM CDT Therapy Visit [facility] Sleep [facility] 6363 [facility] 103 [place] [phone] 03/14/2024 10:30 AM CDT Office Visit [facility] 6363 [facility] 103 [place] [phone] Abhishek Acevedo PA-C 2176 [facility] 103 [place], [place] [id number] 03/21/2024 11:30 AM CDT Office Visit [facility] Colon and Rectal Surgery Clinic [address] 4th [place] [phone] Zain Quintana MD [address] [place] [address] 613225 documented as of this encounter Visit Diagnoses Not on filedocumented in this encounter Additional Health Concerns Assessment Noted Time PHQ-9 Depression Total Score: 11 022 11:52 AM CDT documented as of this encounter Care Teams Lion Trainer Relationship Specialty Start Date End Date Monty Musa MD [facility] [address] [place] [address] PCP - General Family Medicine 08/13/21 Alfonso Tang [facility] [address] [place] [address] Family Practice 08/13/21 Dayanara Bee MD [address] [place] [address] 75 [place] [address] Pediatrics 12/26/14 Min Lange MD 420 [facility] 75 [place] [address] Neurology 03/30/16 Marlo Madsen MD 420 [facility] 508 [place] [address] Cardiology 10/27/16 Mel Buckley, RN Nurse Coordinator Physical Medicine and Rehabilitation 12/02/16 Douglas Cadet MD 500 [place] [address] Gastroenterology 08/13/21 Rosalba Pendleton APRN LAWN CARE WORKER [address] [place] [address] 955305 Nurse Practitioner Neurology 09/05/21 Rosalba Pendleton APRN LAWN CARE WORKER [address] [place] [address] 415625 Assigned Neuroscience Provider 11/09/21 Douglas Cadet MD 500 [place], [place] [address]35 Assigned Gastroenterology Provider 03/14/22 09/03/23 Marlo Madsen MD [address] [place] [address] Assigned Heart and Vascular Provider 03/14/22 Abby Vasquez MD [address] [place] [address] Gastroenterology 07/16/22 Abby Vasquez MD 9 [place] [address] Assigned PCP 09/26/22 10/06/23 documented as of this encounter
--- OUTSIDE RECORDS SUMMARY | 2023-10-25 14:15 | XMS_ITS | Encounter Summary ---
Author Name Unknown Organization [place] Address [address] [facility] [place] [address] Care Team Providers Care Delicatessen Clerk Name Role Phone Monty Musa MD Primary Care Provider [phone] Alfonso Tang Unavailable Unavailable Dayanara Bee MD Unavailable [phone] Min Lange MD Unavailable Unavailable Marlo Madsen MD Unavailable [phone] Mel Buckley RN Unavailable [phone] Douglas Cadet MD Unavailable [phone] Rosalba Pendleton APRN PHOTOGRAPHIC PROCESS SCREEN MAKER Unavaila ble Rosalba Pendleton APRN PHOTOGRAPHIC PROCESS SCREEN MAKER Unavaila ble Douglas Cadet MD Unavailable [phone] Marlo Madsen MD Unavailable [phone] Abby Vasquez MD Unavailable Abby Vasquez MD Unavailable Airam Hodges PA-C Unavailable [phone] Zain Quintana MD Unavailable [phone] Latricia Pettit PA-C Unavailable [phone] Encounter Details Date Type Department Care Team (Late st Contact Info) Description 04/02/2023 MyC Medical Advice [facility] G[facility]ology Clinic [address] [phone] Vivian Carter Social History Tobacco Use Types Packs/Day Years Used Date Smoking Tobacco: Never Smokeless Tobacco: Never Alcohol Use Standard Drinks/Week Comments No 0 (1 standard drink = 0.6 oz pur e alcohol) PHQ-2 Answer Date Recorded PHQ-2 Score 2 04/02/2023 Sex and Gender Information Value Date Recorded Sex Assigned at Female 10/31/2021 7:59 AM SQL DBA Gender Identity Female 10/31/2021 7:59 AM SQL DBA Sexual Orientation Straight 10/31/2021 7: 59 AM SQL DBA COVID-19 Exposure Response Date Recorded In the last 10 days, have yo u been in contact with someone who was confirmed or suspected to have Coronavirus/COVID-19? No / Unsure 04/03/2023 11:46 AM CDT documented as of this encounter Plan of Treatment Upcoming Encounters Date Type Department Care Team (Late st Contact Info) Description 10/26/2023 1:00 PM SQL DBA Virtual Visit [facility]ology [facility] [address] [phone] Latricia Pettit PA-C [address] [place] [address] 10/28/2023 10:50 AM SQL DBA Therapy Visit [address] [address] Zain Quintana MD [address] [place] [address] 171015 Lainey Simon PT [address] [place] [address] 19[address] 11/04/2023 10:50 AM SQL DBA Therapy Visit [address] [address] Zain Quintana MD [address] [place] [address] Lainey Simon, PT [address] [place] [address] 0[address] 11/17/2023 11:00 AM SQL DBA Therapy Visit [address] [address] Lainey Simon, PT [address] [place] [address] 76[address] 11/24/2023 10:40 AM CDT Office Visit [facility]ology [facility] [address] 4th [place] [phone] Abby Vasquez MD [address] [place] [address] 7[address] 11/24/2023 1:30 PM CDT Therapy Visit [address] [address] Lainey Simon, PT [address] [place] [address] 362[address] 12/01/2023 10:20 AM CDT Therapy Visit [address] [address] Lainey Simon, PT [address] [place] [address] 12/08/2023 10:20 AM CDT Therapy Visit [address] [address] [place] [address] [place] [address] 01/13/2024 10:00 AM CDT Virtual Visit [facility] Neurology Clinic [address] 3rd [place] [phone] Rosalba Pendleton, FRET SAW OPERATOR [address] [id number] [place] [address] 01/20/2024 8:00 PM CDT Therapy Visit [facility] Sleep [facility] [address] [place] [address] [phone] 03/14/2024 10:30 AM CDT Office Visit [facility] [address] [place] [address] [phone] Abhishek Acevedo PA-C 4574 [facility] 103 [place], [place] [id number] 03/21/2024 11:30 AM CDT Office Visit [facility] Colon and Rectal Surgery Clinic [address] 4th [place] [phone] Zain Quintana MD [address] [place] [address] 365005 documented as of this encounter Visit Diagnoses Not on filedocumented in this encounter Additional Health Concerns Infection Onset Date Last Indicated Resolved Time Rule Out COVID-19 04/03/2023 04/03/2023 04/04/2023 6:30 PM CDT Assessment Noted Time PHQ-9 Depression Total Score: 11 05/28/ 022 11:52 AM CDT documented as of this encounter Care Teams Delicatessen Clerk Relationship Specialty Start Date End Date Monty Musa MD [facility] [address] [place] [address] PCP - General Family Medicine 08/13/21 Alfonso Tang [facility] [address] [place] [address] [facility] 08/13/21 Dayanara Bee MD 420 [facility] 75 [place], [place] 938015 Pediatrics 12/26/14 Min Lange MD 420 [facility] 75 [place] [address] Neurology 03/30/16 Marlo Madsen MD 420 [facility] 508 [place] [address] Cardiology 10/27/16 Mel Buckley, RN Nurse Coordinator Physical Medicine and Rehabilitation 12/02/16 Douglas Cadet MD 500 [place], [place] 626105 MD Gastroenterology 08/13/21 Rosalba Pendleton APRN PHOTOGRAPHIC PROCESS SCREEN MAKER [address] [facility]2121CJ [place], [place] 982375 Nurse Practitioner Neurology 09/05/21 Rosalba Pendleton APRN PHOTOGRAPHIC PROCESS SCREEN MAKER [address]09 [facility]2121CJ [place], [place] [address]635 Assigned Neuroscience Provider 11/09/21 Douglas Cadet MD 500 [place], [place] 798205 Assigned Gastroenterology Provider 03/14/22 09/03/23 Marlo Madsen MD 420 [facility] 508 [place] [address] Assigned Heart and Vascular Provider 03/14/22 Abby Vasquez MD [address] [place] [address] 002195 Gastroenterology 07/16/22 Abby Vasquez MD [address] [place] [address] 320685 Assigned PCP 09/26/22 10/06/23 Airam Hodges PA-C 500 [place], [place] 526585 Physician [facility] 07/19/23 Zain Quintana MD 500 [place], [place] 558825 Assigned Surgical Provider 10/07/23 Latricia Pettit PA-C [address] [place] [address] 976125 Assigned Gastroenterology Provider 10/15/23 documented as of this encounter
--- OUTSIDE RECORDS SUMMARY | 2023-10-25 14:16 | XMS_ITS | Encounter Summary ---
Author Name Unknown Organization [place] Address 2450 [facility] [place] [address] Care Team Providers Care Web Content Coordinator Name Role Phone Monty Musa MD Primary Care Provider [phone] Alfonso Tang Unavailable Unavailable Dayanara Bee MD Unavailable [phone] Min Lange MD Unavailable Unavailable Marlo Madsen MD Unavailable [phone] Mel Buckley RN Unavailable [phone] Douglas Cadet MD Unavailable [phone] Rosalba Pendleton APRN ROLLER SKATES ASSEMBLER Unavaila ble Rosalba Pendleton APRN ROLLER SKATES ASSEMBLER Unavaila ble Douglas Cadet MD Unavailable [phone] Marlo Madsen MD Unavailable [phone] Abby Vasquez MD Unavailable Abby Vasquez MD Unavailable Airam Hodges PA-C Unavailable [phone] Zain Quintana MD Unavailable [phone] Latricia Pettit PA-C Unavailable [phone] Encounter Details Date Type Department Care Team (Late st Contact Info) Description 11/17/2022 MyC Medical Advice [facility] Gastroenterology Clinic [address] [phone] Abby Vasquez MD [address] [place] [address] Social History Tobacco Use Types Packs/Day Years Used Date Smoking Tobacco: Never Smokeless Tobacco: Never Alcohol Use Standard Drinks/Week Comments No 0 (1 standard drink = 0.6 oz pur e alcohol) PHQ-2 Answer Date Recorded PHQ-2 Score 3 05/28/2022 Sex and Gender Information Value Date Recorded Sex Assigned at Female 10/31/2021 7:59 AM OPERATIONS SUPERVISOR CHEMICAL CLEANING Gender Identity Female 10/31/2021 7:59 AM OPERATIONS SUPERVISOR CHEMICAL CLEANING Sexual Orientation Straight 10/31/2021 7: 59 AM OPERATIONS SUPERVISOR CHEMICAL CLEANING documented as of this encounter Plan of Treatment Upcoming Encounters Date Type Department Care Team (Late st Contact Info) Description 10/26/2023 1:00 PM OPERATIONS SUPERVISOR CHEMICAL CLEANING Virtual Visit [facility] G[facility]ology Clinic [address] [phone] Latricia Pettit PA-C [address] [place] [address] 10/28/2023 10:50 AM OPERATIONS SUPERVISOR CHEMICAL CLEANING Therapy Visit [address] [address] Zain Quintana MD [address] [place] [address] Lainey Simon PT [address] [place] [address] 11/04/2023 10:50 AM OPERATIONS SUPERVISOR CHEMICAL CLEANING Therapy Visit [address] 300 [place], [place] 9[address]387 Zain Quintana MD [address] [place] [address] Lainey Simon, PT [address] [place] [address] 35[address] 11/17/2023 11:00 AM OPERATIONS SUPERVISOR CHEMICAL CLEANING Therapy Visit [address] [address] Lainey Simon, PT [address] [place] [address] 11/24/2023 10:40 AM CDT Office Visit [facility] G[facility]enterology Clinic [address] [phone] Abby Vasquez MD [address] [place] [address] 11/24/2023 1:30 PM CDT Therapy Visit [address] [address] Lainey Simon, PT [address] [place] [address] 12/01/2023 10:20 AM CDT Therapy Visit [address] [address] Lainey Simon, PT [address] [place] [address] 12/08/2023 10:20 AM CDT Therapy Visit [address] [address] Lainey Simon, PT [address] [place] [address], [place] [address] 01/13/2024 10:00 AM CDT Virtual Visit [facility] Neurology Clinic [address] 3rd [place] [phone] Rosalba Pendleton, SENIOR INFORMATION SECURITY ANALYST ROLLER SKATES ASSEMBLER [address] [place] [address] [id number] [address] 01/20/2024 8:00 PM CDT Therapy Visit [facility] Sleep [facility] [address] [place] [address] [phone] 03/14/2024 10:30 AM CDT Office Visit [facility] [address] [place] [address] [phone] Abhishek Acevedo PA-C [address] [address] 03/21/2024 11:30 AM CDT Office Visit [facility] Colon and Rectal Surgery Clinic [address]th [place] [phone] Zain Quintana MD [address] [place] [address] 410165 documented as of this encounter Visit Diagnoses Not on filedocumented in this encounter Additional Health Concerns Infection Onset Date Last Indicated Resolved Time Rule Out COVID-19 04/03/2023 04/03/2023 04/04/2023 6:30 PM CDT Assessment Noted Time PHQ-9 Depression Total Score: 11 022 11:52 AM CDT documented as of this encounter Care Teams Web Content Coordinator Relationship Specialty Start Date End Date Monty Musa MD [facility] [address] [place] [address] PCP - General Family Medicine 08/13/21 Alfonso Tang [facility] [address] [place] [address] [facility] 08/13/21 Dayanara Bee MD 420 [facility] 75 [place], [place] 8[address] Pediatrics 12/26/14 Min Lange MD 420 [facility] 75 [place] [address] Neurology 03/30/16 Marlo Madsen MD 420 [facility] 508 [place], [place] 658[address] Cardiology 10/27/16 Mel Buckley, DIAZ Nurse Coordinator Physical Medicine and Rehabilitation 12/02/16 Douglas Cadet MD 500 [place] [address] Gastroenterology 08/13/21 Rosalba Pendleton APRN ROLLER SKATES ASSEMBLER [address] [place] [address] 111065 Nurse Practitioner Neurology 09/05/21 Rosalba Pendleton APRN ROLLER SKATES ASSEMBLER [address] [place] [address] 512025 Assigned Neuroscience Provider 11/09/21 Douglas Cadet MD 500 [place] [address] Assigned Gastroenterology Provider 03/14/22 09/03/23 Marlo Madsen MD 420 [facility] 508 [place], [place] 219085 Assigned Heart and Vascular Provider 03/14/22 Abby Vasquez MD [address] [place] [address] Gastroenterology 07/16/22 Abby Vasquez MD [address] [place] [address] 675805 Assigned PCP 09/26/22 10/06/23 Airam Hodges PA-C 500 [place] [address] Physician Senior Computer Specialist Surgery 07/19/23 Zain Quintana MD 500 [place] [address] Assigned Surgical Provider 10/07/23 Latricia Pettit PA-C [address] [place] [address] Assigned Gastroenterology Provider 10/15/23 documented as of this encounter
--- OUTSIDE RECORDS SUMMARY | 2023-10-25 14:16 | XMS_ITS | Encounter Summary ---
Author Name Unknown Organization [place] Address 2450 [facility] [place] [address] Care Team Providers Care Fuel Truck Driver Name Role Phone Monty Musa MD Primary Care Provider [phone] Alfonso Tang Unavailable Unavailable Dayanara Bee MD Unavailable [phone] Min Lange MD Unavailable Unavailable Marlo Madsen MD Unavailable [phone] Mel Buckley RN Unavailable [phone] Douglas Cadet MD Unavailable [phone] Rosalba Pendleton APRN BARREL TURNER Unavaila ble Rosalba Pendleton APRN BARREL TURNER Unavaila ble Douglas Cadet MD Unavailable [phone] Marlo Madsen MD Unavailable [phone] Abby Vasquez MD Unavailable Abby Vasquez MD Unavailable Reason for Visit * Reason Onset Date Comments Biotel send out 01/20/2023 Encounter Details Date Type Department Care Team (Late st Contact Info) Description 01/20/2023 Documentation Only [facility] Heart [address] [phone] Marlo Madsen MD 420 [facility] 508 [place], [place] 251515 Yohannes send out Social History Tobacco Use Types Packs/Day Years Used Date Smoking Tobacco: Never Smokeless Tobacco: Never Alcohol Use Standard Drinks/Week Comments No 0 (1 standard drink = 0.6 oz pur e alcohol) PHQ-2 Answer Date Recorded PHQ-2 Score 2 01/19/2023 Sex and Gender Information Value Date Recorded Sex Assigned at Female 10/31/2021 7:59 AM DIAGRAMMER Gender Identity Female 10/31/2021 7:59 AM DIAGRAMMER Sexual Orientation Straight 10/31/2021 7: 59 AM DIAGRAMMER documented as of this encounter Progress Notes * Leslie Woo CMA - 01/20/2023 12:00 PM CDT YOHANNES SEND OUT Leslie Umana 01/20 documented in this encounter Plan of Treatment Upcoming Encounters Date Type Department Care Team (Late st Contact Info) Description 10/26/2023 1:00 PM DIAGRAMMER Virtual Visit [facility] Gastroenterology Clinic [address] 4th [place] [phone] Latricia Pettit PA-C [address] [place] [address] 9[address] 10/28/2023 10:50 AM DIAGRAMMER Therapy Visit [facility] Rehabilitation Services [facility] [address] [facility] [address] [place] [address] Zain Quintana MD 500 [place], [place] 134205 [place] [address] [place] [address] 11/04/2023 10:50 AM DIAGRAMMER Therapy Visit [address] [address] Zain Quintana MD [address] [place] [address] Lainey Simon, PT [address] [place] [address] 11/17/2023 11:00 AM DIAGRAMMER Therapy Visit [address] [address] Lainey Simon, PT [address] [place] [address] 11/24/2023 10:40 AM CDT Office Visit [facility] Gastroenterology Clinic [address] [phone] Abby Vasquez MD [address] [place] [address] 11/24/2023 1:30 PM CDT Therapy Visit [address] [address] Lainey Simon, PT [address] [place] [address] 12/01/2023 10:20 AM CDT Therapy Visit [address] [address] Lainey Simon, PT [address] [place] [address] 12/08/2023 10:20 AM CDT Therapy Visit [place] 1928501 [facility] [address] [place] [address] [place] [address] [place] [address] 01/13/2024 10:00 AM CDT Virtual Visit [facility] Neurology Clinic [place] 909 [facility] 3rd [place] [phone] Rosalba Pendleton, PRINCIPAL DEVELOPER BARREL TURNER 909 [facility] [id number] [place] [address] 01/20/2024 8:00 PM CDT Therapy Visit [facility] Sleep [facility] [address] [phone] 03/14/2024 10:30 AM CDT Office Visit [facility] Sleep [facility] [address] [phone] Abhishek Acevedo PA-C 3515 [facility] 103 [place], [place] [id number] 03/21/2024 11:30 AM CDT Office Visit [facility] Colon and Rectal Surgery Clinic [place] 909 [facility] 4th [place] [phone] Zain Quintana MD [address] [place] [address] documented as of this encounter Visit Diagnoses Not on filedocumented in this encounter Additional Health Concerns Assessment Noted Time PHQ-9 Depression Total Score: 11 022 11:52 AM CDT documented as of this encounter Care Teams Fuel Truck Driver Relationship Specialty Start Date End Date Monty Musa MD [facility] [address] [place] [place] [address] PCP - General Family Medicine 08/13/21 Alfonso Tang [facility] [address] [place] [address] [facility] Practice 08/13/21 Dayanara Bee MD 420 [facility] 75 [place] [address] Pediatrics 12/26/14 Min Lange MD 420 [facility] 75 [place] [address] Neurology 03/30/16 Marlo Madsen MD 420 [facility] 508 [place], [place] 302455 Cardiology 10/27/16 Mel Buckley, RN Nurse Coordinator Physical Medicine and Rehabilitation 12/02/16 Douglas Cadet MD 500 [place], [place] 819345 Gastroenterology 08/13/21 Rosalba Pendleton APRN BARREL TURNER [address] [place] [address] 965005 Nurse Practitioner Neurology 09/05/21 Rosalba Pendleton APRN BARREL TURNER [address] [place] [address] 457775 Assigned Neuroscience Provider 11/09/21 Douglas Cadet MD 500 [place] [address] Assigned Gastroenterology Provider 03/14/22 09/03/23 Marlo Madsen MD 420 [facility] 508 [place] [address] Assigned Heart and Vascular Provider 03/14/22 Abby Vasquez MD [address] [place] [address] Gastroenterology 07/16/22 Abby Vasquez MD [address] [place] [address] Assigned PCP 09/26/22 10/06/23 documented as of this encounter
--- OUTSIDE RECORDS SUMMARY | 2023-10-25 14:16 | XMS_ITS | Encounter Summary ---
Author Name Unknown Organization [place] Address 2450 [place] [address] Care Team Providers Care Financial Aid Administrator Name Role Phone Monty Musa MD Primary Care Provider [phone] Alfonso Tang Unavailable Unavailable Dayanara Bee MD Unavailable [phone] Min Lange MD Unavailable Unavailable Marlo Madsen MD Unavailable [phone] Mel Buckley RN Unavailable [phone] Douglas Cadet MD Unavailable [phone] Rosalba Pendleton APRN VIRTUALIZATION CONSULTANT Unavaila ble Rosalba Pendleton APRN VIRTUALIZATION CONSULTANT Unavaila ble Douglas Cadet MD Unavailable [phone] Marlo Madsen MD Unavailable [phone] Abby Vasquez MD Unavailable Abby Vasquez MD Unavailable Encounter Details Date Type Department Care Team (Latest Contact Info) Description 11/18/[address] [facility] Gastroenterology Clinic [place] 9[address] [facility] [address] 4th [place] [address] Sheri Edmonds RN Irritable bowel [...] Sex Assigned at Female 10/31/2021 7:59 AM CORNICE UPHOLSTERER Gender Identity Female 10/31/2021 7:59 AM CORNICE UPHOLSTERER Sexual Orientation Straight 10/31/2021 7: 59 AM CORNICE UPHOLSTERER documented as of this encounter Plan of Treatment Upcoming Encounters Date Type Department Care Team (Late st Contact Info) Description 10/26/2023 1:00 PM CORNICE UPHOLSTERER Virtual Visit [facility] Gastroenterology Clinic [address] [phone] Latricia Pettit PA-C [address] [place] [address] 10/28/2023 10:50 AM CORNICE UPHOLSTERER Therapy Visit [address] [address] Zain Quintana MD [address] [place] [address] Lainey Simon, PT [address] [place] [address] 11/04/2023 10:50 AM CORNICE UPHOLSTERER Therapy Visit [address] [address] Zain Quintana MD [address] [place] [address] 949915 Lainey Simon, PT [address] [place] [address] 11/17/2023 11:00 AM CORNICE UPHOLSTERER Therapy Visit [address] [address] Lainey Simon, PT [address] [place] [address] 11/24/2023 10:40 AM CDT Office Visit [facility] Gastroenterology Clinic [address] 4th [place] [phone] Abby Vasquez MD [address] [place] [address] 114225 11/24/2023 1:30 PM CDT Therapy Visit [address] [address] Lainey Simon, PT [address] [place] [address] 12/01/2023 10:20 AM CDT Therapy Visit [address] [address] Lainey Simon, PT [address] [place] [address] 12/08/2023 10:20 AM CDT Therapy Visit [address] [address] Lainey Simon, PT [address] [place] [address] 01/13/2024 10:00 AM CDT Virtual Visit [facility] Neurology Clinic [address]rd [place] [phone] Rosalba Pendleton APRN VIRTUALIZATION CONSULTANT 909 [facility] [id number] [place] [address] 01/20/2024 8:00 PM CDT Therapy Visit [facility] [address] [place] [address] [place] [phone] 03/14/2024 10:30 AM CDT Office Visit [facility] 6363 [facility] 103 [place] [phone] Abhishek Acevedo PA-C 4086 [facility] 103 [place], [place] [phone] 03/21/2024 11:30 AM CDT Office Visit [facility] Colon and Rectal Surgery Clinic [address] 4th [place] [phone] Zain Quintana MD [address] [place] [address] documented as of this encounter Visit Diagnoses Diagnosis Irritable bowel syndrome with constipation- Primary Irritable bowel syndrome documented in this encounter Additional Health Concerns Assessment Noted Time PHQ-9 Depression Total Score: 11 022 11:52 AM CDT documented as of this encounter Care Teams Financial Aid Administrator Relationship Specialty Start Date End Date Monty Musa MD [facility] [address] [place] [address] PCP - General Family Medicine 08/13/21 Alfonso Tang [facility] [address] [place] [address] Family Practice 08/13/21 Dayanara Bee MD [address] [place] [address] 75 [place] [address] Pediatrics 12/26/14 Min Lange MD 420 [facility] 75 [place] [address] Neurology 03/30/16 Marlo Madsen MD [address] [place] 907818 [place] [address] Cardiology 10/27/16 Mel Buckley, DIAZ Nurse Coordinator Physical Medicine and Rehabilitation 12/02/16 Douglas Cadet MD 500 [place] [address] Gastroenterology 08/13/21 Rosalba Pendleton APRN VIRTUALIZATION CONSULTANT [address] [place] [address] 663605 Nurse Practitioner Neurology 09/05/21 Rosalba Pendleton APRN VIRTUALIZATION CONSULTANT [address] [place] [address] 896945 Assigned Neuroscience Provider 11/09/21 Douglas Cadet MD 500 [place] [address] Assigned Gastroenterology Provider 03/14/22 09/03/23 Marlo Madsen MD [address] [address] Assigned Heart and Vascular Provider 03/14/22 Abby Vasquez MD [address] [place] [address] Gastroenterology 07/16/22 Abby Vasquez MD 9 [place] [address] Assigned PCP 09/26/22 10/06/23 documented as of this encounter
--- OUTSIDE RECORDS SUMMARY | 2023-10-25 14:16 | XMS_ITS | Encounter Summary ---
Author Name Unknown Organization [place] Address [address] [facility] [place] [address] Care Team Providers Care Vp Client Services Name Role Phone Monty Musa MD Primary Care Provider [phone] Alfonso Tang Unavailable Unavailable Dayanara Bee MD Unavailable [phone] Min Lange MD Unavailable Unavailable Marlo Madsen MD Unavailable [phone] Mel Buckley RN Unavailable [phone] Douglas Cadet MD Unavailable [phone] Rosalba Pendleton APRN COMMUNITY MARKETING MANAGER Unavaila ble Rosalba Pendleton APRN COMMUNITY MARKETING MANAGER Unavaila ble Douglas Cadet MD Unavailable [phone] Marlo Madsen MD Unavailable [phone] Abby Vasquez MD Unavailable Abby Vasquez MD Unavailable Reason for Visit * Reason Comments Medication Refill Encounter Details Date Type Department Care Team (Late st Contact Info) Description 02/02/2023 [facility] [place] [address] [facility] [address] 4th [place] [phone] Abby Vasquez MD [address] [place] [address] [phone] Medication Refill Social History Tobacco Use Types Packs/Day Years Used Date Smoking Tobacco: Never Smokeless Tobacco: Never Alcohol Use Standard Drinks/Week Comments No 0 (1 standard drink = 0.6 oz pur e alcohol) PHQ-2 Answer Date Recorded PHQ-2 Score 2 01/19/2023 Sex and Gender Information Value Date Recorded Sex Assigned at Female 10/31/2021 7:59 AM BANQUET MANAGER Gender Identity Female 10/31/2021 7:59 AM BANQUET MANAGER Sexual Orientation Straight 10/31/2021 7: 59 AM BANQUET MANAGER documented as of this encounter Miscellaneous Notes * Telephone Encounter - Isi Euceda, RN - 02/04/2023 3:50 PM CDT Last Clinic Visit: 12/09/2022 [facility] Gastroenterology [facility] Scheduled for follow-up 04/15/23 documented in this encounter Plan of Treatment Upcoming Encounters Date Type Department Care Team (Late st Contact Info) Description 10/26/2023 1:00 PM BANQUET MANAGER Virtual Visit [facility] Gastroenterology Clinic [address] [phone] Latricia Pettit PA-C [address] [place] [address] [phone] 10/28/2023 10:50 AM BANQUET MANAGER Therapy Visit [facility] Rehabilitation Services [facility] [address] [facility] [address] [place], [place] 0[address] Zain Quintana MD [address] [place] [address] 708715 [place] [address] [place], [place] 8[address]287 11/04/2023 10:50 AM BANQUET MANAGER Therapy Visit [address] [address] Zain Quintana MD [address] [place] [address] Lainey Simon, PT [address] [place] [address] 11/17/2023 11:00 AM BANQUET MANAGER Therapy Visit [address] [address] Lainey Simon, PT [address] [place] [address] 11/24/2023 10:40 AM CDT Office Visit [facility] Gastroenterology Clinic [address] [phone] Abby Vasquez MD [address] [place] [address] 11/24/2023 1:30 PM CDT Therapy Visit [address] [address] Lainey Simon, PT [address] [place] [address] 227[address] 12/01/2023 10:20 AM CDT Therapy Visit [address] [address] Lainey Simon, PT [address] [place] [address] 8[address] 12/08/2023 10:20 AM CDT Therapy Visit [facility] Rehabilitation Services [facility] [address] [facility] 300 [place] [address] Alfred LaineyJAY lowry [address] [place] [address] 01/13/2024 10:00 AM CDT Virtual Visit [facility] Neurology Clinic [address] 3rd [place] [phone] Rosalba Pendleton, FILM PRINTER [address] [id number], [place] [address] 01/20/2024 8:00 PM CDT Therapy Visit [facility] Sleep [address] [phone] 03/14/2024 10:30 AM CDT Office Visit [facility] Sleep [address] [phone] Abhishek Acevedo PA-C [address] [id number] 03/21/2024 11:30 AM CDT Office Visit [facility] Colon and Rectal Surgery Clinic [address] 4th [place] [phone] Zain Quintana MD [address] [place] [address] documented as of this encounter Visit Diagnoses Diagnosis Irritable bowel syndrome with constipation Irritable bowel syndrome documented in this encounter Additional Health Concerns Assessment Noted Time PHQ-9 Depression Total Score: 11 022 11:52 AM CDT documented as of this encounter Care Teams Vp Client Services Relationship Specialty Start Date End Date Monty Musa MD [facility] [address] [place] [address] PCP - General Family Medicine 08/13/21 Alfonso Tang [facility] MEDICAL [facility] [address] [place] [address] [facility] Practice 08/13/21 Dayanara Bee MD 420 [facility] 75 [place], [place] [address]15 Pediatrics 12/26/14 Min Lange MD 420 [facility] 75 [place] [address] Neurology 03/30/16 Marlo Madsen MD 420 [facility] 508 [place], [place] 453185 MD Cardiology 10/27/16 Mel Buckley RN Nurse Coordinator Physical Medicine and Rehabilitation 12/02/16 Douglas Cadet MD 500 [place], [place] 588745 MD Gastroenterology 08/13/21 Rosalba Pendleton APRN COMMUNITY MARKETING MANAGER [address] [place] [id number] [place], [place] 48[address] Nurse Practitioner Neurology 09/05/21 Rosalba Pendleton APRN COMMUNITY MARKETING MANAGER [address] [place], [place] [address] Assigned Neuroscience Provider 11/09/21 Douglas Cadet MD 500 [place], [place] 036875 Assigned Gastroenterology Provider 03/14/22 09/03/23 Marlo Madsen MD 420 [facility] 508 [place], [place] 199605 Assigned Heart and Vascular Provider 03/14/22 Abby Vasquez MD [address] [place] [address] 857165 Gastroenterology 07/16/22 Abby Vasquez MD [address] [place] [address] 695515 Assigned PCP 09/26/22 10/06/23 documented as of this encounter
--- OUTSIDE RECORDS SUMMARY | 2023-10-25 14:16 | XMS_ITS | Encounter Summary ---
Author Name Unknown Organization [place] Address [address] [facility] [place] [address] Care Team Providers Care Bolt Sorter Name Role Phone Monty Musa MD Primary Care Provider [phone] Alfonso Tang Unavailable Unavailable Dayanara Bee MD Unavailable [phone] Min Lange MD Unavailable Unavailable Marlo Madsen MD Unavailable [phone] Mel Buckley RN Unavailable [phone] Douglas Cadet MD Unavailable [phone] Rosalba Pendleton APRN NUT STEAMER Unavaila ble Rosalba Pendleton APRN NUT STEAMER Unavaila ble Douglas Cadet MD Unavailable [phone] Marlo Madsen MD Unavailable [phone] Abby Vasquez MD Unavailable Abby Vasquez MD Unavailable Reason for Visit * Reason Onset Date Comments Prior Auth - Medication 11/03/2022 AIMOVIG 140 MG/ML injection--APPROVED Encounter Details Date Type Department Care Team (Late st Contact Info) Description 11/03/2022 Telephone [facility] Neurology [address] [place] [phone] Cierra Perez RN Prior Auth - Medication [...] Sex Assigned at Female 10/31/2021 7:59 AM MANUFACTURING TECHNOLOGY ANALYST Gender Identity Female 10/31/2021 7:59 AM MANUFACTURING TECHNOLOGY ANALYST Sexual Orientation Straight 10/31/2021 7: 59 AM MANUFACTURING TECHNOLOGY ANALYST documented as of this encounter Miscellaneous Notes * Telephone Encounter - Adriana Salinas - 11/09/2022 11:02 AM CST Images from the original note were not included. Prior Authorization Approval Authorization Effective Date: 10/09/2022 Authorization Expiration Date: 11/08/2023 Medication: AIMOVIG 140 MG/ML injection--APPROVED Approved Dose/Quantity: Reference #: Insurance Company: [employer] - Expected CoPay: CoPay Card Available: Foundation Assistance Needed: Which Pharmacy is filling the prescription (Not needed for infusion/clinic administered): [facility] [address] [place] [address] Pharmacy Notified: Yes Patient Notified: Yes Instructed pharmacy to notify patient when script is ready to pharmacy picking technician/ship. FACTURING TECHNOLOGY ANALYST * Telephone Encounter - Adriana Salinas - 11/08/2022 11:51 AM CST Images from the original note were not included. PA Initiation Medication: AIMOVIG 140 MG/ML injection Insurance Company: [employer] - Pharmacy Filling the Rx: [facility] [id number] [place] [address] [id number] [place] [id number] Filling Pharmacy Filling Pharmacy Start Date: 11/08/2022 FACTURING TECHNOLOGY ANALYST * Telephone Encounter - Cierra Perez RN [...] than what is on RX) Name: Phone: FACTURING TECHNOLOGY ANALYST documented in this encounter Plan of Treatment Upcoming Encounters Date Type Department Care Team (Late st Contact Info) Description 10/26/2023 1:00 PM MANUFACTURING TECHNOLOGY ANALYST Virtual Visit [facility] Gastroenterology Clinic [address] [phone] Latricia Pettit PA-C [address] [place] [address] 749615 10/28/2023 10:50 AM MANUFACTURING TECHNOLOGY ANALYST Therapy Visit [address] [phone] Zain Quintana MD [address] [place] [address] [place] [address] [place] [address] 367067 11/04/2023 10:50 AM MANUFACTURING TECHNOLOGY ANALYST Therapy Visit [address] [phone] Zain Quintana MD [address] [place] [address] Lainey Simon, PT [address] [place] [address] 11/17/2023 11:00 AM MANUFACTURING TECHNOLOGY ANALYST Therapy Visit [address] [address] Lainey Simon, PT [address] [place] [address] 11/24/2023 10:40 AM CDT Office Visit [facility] Gastroenterology Clinic [address] [phone] Abby Vasquez MD [address] [place] [address] 11/24/2023 1:30 PM CDT Therapy Visit [address] [address] Lainey Simon, PT [address] [place] [address] 12/01/2023 10:20 AM CDT Therapy Visit [address] [address] Lainey Simon, PT [address] [place] [address] 12/08/2023 10:20 AM CDT Therapy Visit [address] [address] Lainey Simon, PT [address] [place] [address] 01/13/2024 10:00 AM CDT Virtual Visit [facility] Neurology Clinic [address] 3rd [place] [phone] Rosalba Pendleton, HEAD OF PARTNER DEVELOPMENT NUT STEAMER [address] [place] [address] [id number] [place] [address] 01/20/2024 8:00 PM CDT Therapy Visit [facility] Sleep [facility] [address] [phone] 03/14/2024 10:30 AM CDT Office Visit [facility] Sleep [facility] [address] [phone] Abhishek Acevedo PA-C [address] [address] 03/21/2024 11:30 AM CDT Office Visit [facility] Colon and Rectal Surgery Clinic [address] [place] [address] [place] [phone] Zain Quintana MD [address] [place] [address] 037115 documented as of this encounter Visit Diagnoses Not on filedocumented in this encounter Additional Health Concerns Assessment Noted Time PHQ-9 Depression Total Score: 11 022 11:52 AM CDT documented as of this encounter Care Teams Bolt Sorter Relationship Specialty Start Date End Date Monty Musa MD [facility] MEDICAL [facility] [address] [place] [address] PCP - General Family Medicine 08/13/21 [facility] [address] [place] [address] [facility] Practice 08/13/21 Dayanara Bee MD [address] 378845 Pediatrics 12/26/14 Min Lange MD [address] [address] Neurology 03/30/16 Marlo Madsen MD [address] [place] [address] Cardiology 10/27/16 Mel Buckley, RN Nurse Coordinator Physical Medicine and Rehabilitation 12/02/16 Douglas Cadet MD 500 [place] [address] Gastroenterology 08/13/21 Rosalba Pendleton APRN NUT STEAMER [address] [place] [address] [phone] Nurse Practitioner Neurology 09/05/21 Rosalba Pendleton APRN NUT STEAMER [address] [place] [address] Assigned Neuroscience Provider 11/09/21 Douglas Cadet MD 500 [place] [address] Assigned Gastroenterology Provider 03/14/22 09/03/23 Marlo Madsen MD [address] [place] [address] Assigned Heart and Vascular Provider 03/14/22 Abby Vasquez MD 909 [place], [place] 343775 Gastroenterology 07/16/22 Abby Vasquez MD 909 [place], [place] 414265 Assigned PCP 09/26/22 10/06/23 documented as of this encounter
--- OUTSIDE RECORDS SUMMARY | 2023-10-25 14:16 | XMS_ITS | Encounter Summary ---
Author Name Unknown Organization [place] Address [address] [place] [address] Care Team Providers Care Secretary Bookkeeper Name Role Phone Monty Musa MD Primary Care Provider [phone] Alfonso Tang Unavailable Unavailable Dayanara Bee MD Unavailable [phone] Min Lange MD Unavailable Unavailable Marlo Madsen MD Unavailable [phone] Mel Buckley RN Unavailable [phone] Douglas Cadet MD Unavailable [phone] Rosalba Pendleton APRN GRAIN INSPECTOR Unavaila ble Rosalba Pendleton APRN GRAIN INSPECTOR Unavaila ble Douglas Cadte MD Unavailable [phone] Marlo Madsen MD Unavailable [phone] Abby Vasquez MD Unavailable Abby Vasquez MD Unavailable Airam Hodges PA-C Unavailable [phone] Zain Quintana MD Unavailable [phone] Latricia Pettit PA-C Unavailable [phone] Encounter Details Date Type Department Care Team (Late st Contact Info) Description 01/21/2023 MyC Medical Advice [facility] Heart Clinic [address] [phone] Marlo Madsen MD [address] [place] [address] [place] [address] [phone] Social History Tobacco Use Types Packs/Day Years Used Date Smoking Tobacco: Never Smokeless Tobacco: Never Alcohol Use Standard Drinks/Week Comments No 0 (1 standard drink = 0.6 oz pur e alcohol) PHQ-2 Answer Date Recorded PHQ-2 Score 2 01/19/2023 Sex and Gender Information Value Date Recorded Sex Assigned at Female 10/31/2021 7:59 AM ENVIRONMENTAL CONTROL ADMINISTRATOR Gender Identity Female 10/31/2021 7:59 AM ENVIRONMENTAL CONTROL ADMINISTRATOR Sexual Orientation Straight 10/31/2021 7: 59 AM ENVIRONMENTAL CONTROL ADMINISTRATOR documented as of this encounter Plan of Treatment Upcoming Encounters Date Type Department Care Team (Late st Contact Info) Description 10/26/2023 1:00 PM ENVIRONMENTAL CONTROL ADMINISTRATOR Virtual Visit [facility] Gastroenterology Clinic [address] 4th [place] [phone] Latricia Pettit PA-C [address] [place] [address] 464895 10/28/2023 10:50 AM ENVIRONMENTAL CONTROL ADMINISTRATOR Therapy Visit [address] [phone] Zain Quintana MD [address] [place] [address] 900015 [place] [address] [place] [address] 405237 11/04/2023 10:50 AM ENVIRONMENTAL CONTROL ADMINISTRATOR Therapy Visit [address] 068647 Zain Quintana MD [address] [place] [address] Lainey Simon, PT [address] [place] [address] 11/17/2023 11:00 AM ENVIRONMENTAL CONTROL ADMINISTRATOR Therapy Visit [address] [address] Lainey Simon, PT [address] [place] [address] 11/24/2023 10:40 AM CDT Office Visit [facility] Gastroenterology Clinic [address] [phone] Abby Vasquez MD [address] [place] [address] 11/24/2023 1:30 PM CDT Therapy Visit [address] [address] Lainey Simon, PT [address] [place] [address] 12/01/2023 10:20 AM CDT Therapy Visit [address] [address] Lainey Simon, PT [address] [place] [address] 12/08/2023 10:20 AM CDT Therapy Visit [address] [address] Lainey Simon, PT [address] [place] [address] 01/13/2024 10:00 AM CDT Virtual Visit [facility] Neurology Clinic [address] 3rd [place] [phone] Rosalba Pendleton, DRIVER MATERIAL HANDLER GRAIN INSPECTOR [address] [place] [address] [id number] [place] [address] 01/20/2024 8:00 PM CDT Therapy Visit [facility] Sleep [facility] [address] [place] [address] [phone] 03/14/2024 10:30 AM CDT Office Visit [facility] [address] [place] [address] [phone] Abhishek Acevedo PA-C [address] [facility] 103 [place] [address] 03/21/2024 11:30 AM CDT Office Visit [facility] Colon and Rectal Surgery Clinic [address] [place] [phone] Zain Quintana MD [address] [place] [address] documented as of this encounter Visit Diagnoses Not on filedocumented in this encounter Additional Health Concerns Infection Onset Date Last Indicated Resolved Time Rule Out COVID-19 04/03/2023 04/03/2023 04/04/2023 6:30 PM CDT Assessment Noted Time PHQ-9 Depression Total Score: 11 022 11:52 AM CDT documented as of this encounter Care Teams Secretary Bookkeeper Relationship Specialty Start Date End Date Monty Musa MD [facility] [address] [place] [address] PCP - General Family Medicine 08/13/21 Lorrainejoeaaron Alfonso Odalis [facility] [address] [place] [address] [facility] 08/13/21 Dayanara Bee MD 420 [facility] 75 [place] [address] Pediatrics 12/26/14 Min Lange MD 420 [facility] 75 [place] [address] Neurology 03/30/16 Marlo Madsen MD 420 [facility] 508 [place], [place] 352975 Cardiology 10/27/16 Mel Buckley RN Nurse Coordinator Physical Medicine and Rehabilitation 12/02/16 Douglas Cadet MD [address] [place] [address] Gastroenterology 08/13/21 Rosalba Pendleton APRN GRAIN INSPECTOR [address] [place] [address] 780125 Nurse Practitioner Neurology 09/05/21 Rosalba Pendleton APRN GRAIN INSPECTOR [address] [place] [address] Assigned Neuroscience Provider 11/09/21 Douglas Cadet MD [address] [place] [address] Assigned Gastroenterology Provider 03/14/22 09/03/23 Marlo Madsen MD [address] [place] [address] 508 [place] [address] Assigned Heart and Vascular Provider 03/14/22 Abby Vasquez MD [address] [place] [address] Gastroenterology 07/16/22 Abby Vasquez MD [address] [place] [address] Assigned PCP 09/26/22 10/06/23 Airam Hodges PA-C [address] [place] [address] Physician Flask Fitter Surgery 07/19/23 Zain Quintana MD [address] [place] [address] Assigned Surgical Provider 10/07/23 Latricia Pettit PA-C [address] [place] [address] Assigned Gastroenterology Provider 10/15/23 documented as of this encounter
--- OUTSIDE RECORDS SUMMARY | 2023-10-25 14:16 | XMS_ITS | Encounter Summary ---
Author Name Unknown Organization [place] Address [address] [facility] [place] [address] Care Team Providers Care Railroad Commissioner Name Role Phone Monty Musa MD Primary Care Provider [phone] Alfonso Tang Unavailable Unavailable Dayanara Bee MD Unavailable [phone] Min Lange MD Unavailable Unavailable Marlo Madsen MD Unavailable [phone] Mel Buckley RN Unavailable [phone] Douglas Cadet MD Unavailable [phone] Rosalba Pendleton APRN SMALL MACHINE BINDERY OPERATOR Unavaila ble Rosalba Pendleton APRN SMALL MACHINE BINDERY OPERATOR Unavaila ble Douglas Cadet MD Unavailable [phone] Marlo Madsen MD Unavailable [phone] Abby Vasquez MD Unavailable Abby Vasquez MD Unavailable Reason for Visit * Reason Comments Medication Refill Encounter Details Date Type Department Care Team (Late st Contact Info) Description [facility] [address] 3rd [place] [address] Rosalba Pendleton APRN SMALL MACHINE BINDERY OPERATOR 9 [facility] [id number] [place] [address] Medication Refill Social History Tobacco Use Types Packs/Day Years Used Date Smoking Tobacco: Never Smokeless Tobacco: Never Alcohol Use Standard Drinks/Week Comments No 0 (1 standard drink = 0.6 oz pur e alcohol) PHQ-2 Answer Date Recorded PHQ-2 Score 3 05/28/2022 Sex and Gender Information Value Date Recorded Sex Assigned at Female 10/31/2021 7:59 AM ADMINISTRATIVE OFFICER Gender Identity Female 10/31/2021 7:59 AM ADMINISTRATIVE OFFICER Sexual Orientation Straight 10/31/2021 7: 59 AM ADMINISTRATIVE OFFICER documented as of this encounter Miscellaneous Notes * Telephone Encounter - Rosalba Pendleton APRN CNP - 11/03/2022 2:57 PM CST Please submit PA renewal and follow up needed in January or in the summer for med review. Thank you NISTRATIVE OFFICER * Telephone Encounter - Marissa Sharp CMA - 11/02/2022 8:40 AM CST Rx Authorization: Requested Medication/ Dose Aimovig Subcutaneous Solution Auto-injector 140 MG/ML Date last refill ordered: 10/31/21 Quantity ordered: 1ml # refills: 12 Date of last clinic visit with ordering provider: 01/14/22 Date of next clinic visit with ordering provider: All pertinent protocol data (lab date/result): Include pertinent information from patients message: NISTRATIVE OFFICER documented in this encounter Plan of Treatment Upcoming Encounters Date Type Department Care Team (Late st Contact Info) Description 10/26/2023 1:00 PM ADMINISTRATIVE OFFICER Virtual Visit [facility] [address] 4th [place] [phone] Latricia Pettit, STEFANOC [address] [place] [address] 10/28/2023 10:50 AM ADMINISTRATIVE OFFICER Therapy Visit [address] [address] Zain Quintana MD [address] [place] [address] Lainey Simon, PT [address] [place] [address] 11/04/2023 10:50 AM ADMINISTRATIVE OFFICER Therapy Visit [address] [address] Zain Quintana MD [address] [place] [address] 408145 Lainey Simon, PT [address] [place] [address] 11/17/2023 11:00 AM ADMINISTRATIVE OFFICER Therapy Visit [address] [address] Lainey Simon, PT [address] [place] [address] 11/24/2023 10:40 AM CDT Office Visit [facility] [address]th [place] [phone] Abby Vasquez MD [address] [place] [address] 11/24/2023 1:30 PM CDT Therapy Visit [address] [place] [address] Alfred Lainey, PT [address] [place] [address] 12/01/2023 10:20 AM CDT Therapy Visit [address] [address] Lainey Simon, PT [address] [place] [address] 12/08/2023 10:20 AM CDT Therapy Visit [address] [address] Lainey Simon, PT [address] [place] [address] 989977 01/13/2024 10:00 AM CDT Virtual Visit [facility] Neurology [facility] [address] [phone] Rosalba Pendleton, MAXIMILIANO [id number] [place] [address] 01/20/2024 8:00 PM CDT Therapy Visit [facility] [address] [place] [address] SYDNIE Patino [phone] 03/14/2024 10:30 AM CDT Office Visit [facility] [address] [address] [place] [phone] Abhishek Acevedo PA-C [address] [facility] 103 [place] [address] 03/21/2024 11:30 AM CDT Office Visit [facility]al [facility] [address] 4th [place] [phone] Zain Quintana MD 500 [place], [place] [address] documented as of this encounter Visit Diagnoses Diagnosis Intractable 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 Chronic migraine without aura, with intractable migraine, so stated, without mention of status migrainosus documented in this encounter Additional Health Concerns Assessment Noted Time PHQ-9 Depression Total Score: 11 022 11:52 AM CDT documented as of this encounter Care Teams Railroad Commissioner Relationship Specialty Start Date End Date Monty Musa MD [facility] [address] [place] [address] PCP - General Family Medicine 08/13/21 Alfonso Tang [facility] [address] [place] [address] Family Practice 08/13/21 Dayanara Bee MD [address] [facility] 75 [place] [address] Pediatrics 12/26/14 Min Lange MD [address] [facility] 75 [place] [address] Neurology 03/30/16 Marlo Madsen MD [address] [facility] 508 [place] [address] Cardiology 10/27/16 Mel Buckley, RN Nurse Coordinator Physical Medicine and Rehabilitation 12/02/16 Douglas Cadet MD 500 [place] [address] Gastroenterology 08/13/21 Rosalba Pendleton, NURSE EPIDEMIOLOGIST SMALL MACHINE BINDERY OPERATOR 9[address] [id number] [place] [address] Nurse Practitioner Neurology 09/05/21 Rosalba Pendleton APRN SMALL MACHINE BINDERY OPERATOR [address] [id number] [place] [address] Assigned Neuroscience Provider 11/09/21 Douglas Cadet MD [address] [place] [address] [id number] Assigned Gastroenterology Provider 03/14/22 09/03/23 Marlo Madsen MD [address] [place] [address] 508 [place] [address] Assigned Heart and Vascular Provider 03/14/22 Abby Vasquez MD [address] [place] [address] [id number] Gastroenterology 07/16/22 Abby Vasquez MD [address] [place] [address] Assigned PCP 09/26/22 10/06/23 documented as of this encounter
--- OUTSIDE RECORDS SUMMARY | 2023-10-25 14:16 | XMS_ITS | Encounter Summary ---
Author Name Unknown Organization [place] Address [address] [facility] [place] [address] Care Team Providers Care Educational Sign Language Interpreter Name Role Phone Monty Musa MD Primary Care Provider [phone] Alfonso Tang Unavailable Unavailable Dayanara Bee MD Unavailable [phone] Min Lange MD Unavailable Unavailable Marlo Madsen MD Unavailable [phone] Mel Buckley RN Unavailable [phone] Douglas Cadet MD Unavailable [phone] Rosalba Pendleton APRN RAILCAR SWITCHMAN Unavaila ble Rosalba Pendleton APRN RAILCAR SWITCHMAN Unavaila ble Douglas Cadet MD Unavailable [phone] Marlo Madsen MD Unavailable [phone] Abby Vasquez MD Unavailable Abby Vasquez MD Unavailable Airam Hodges PA-C Unavailable [phone] Zain Quintana MD Unavailable [phone] Latricia Pettit PA-C Unavailable Encounter Details Date Type Department Care Team (Late st Contact Info) Description 11/23/2022 MyC Medical Advice [facility]ology [facility] [address] [phone] Vivian Carter Social History Tobacco Use Types Packs/Day Years Used Date Smoking Tobacco: Never Smokeless Tobacco: Never Alcohol Use Standard Drinks/Week Comments No 0 (1 standard drink = 0.6 oz pur e alcohol) PHQ-2 Answer Date Recorded PHQ-2 Score 3 05/28/2022 Sex and Gender Information Value Date Recorded Sex Assigned at Female 10/31/2021 7:59 AM SENIOR WINDOWS SYSTEMS ENGINEER Gender Identity Female 10/31/2021 7:59 AM SENIOR WINDOWS SYSTEMS ENGINEER Sexual Orientation Straight 10/31/2021 7: 59 AM SENIOR WINDOWS SYSTEMS ENGINEER documented as of this encounter Plan of Treatment Upcoming Encounters Date Type Department Care Team (Late st Contact Info) Description 10/26/2023 1:00 PM SENIOR WINDOWS SYSTEMS ENGINEER Virtual Visit [facility]astroenterology Clinic [address] [phone] Latricia Pettit PA-C [address] [place] [address] 10/28/2023 10:50 AM SENIOR WINDOWS SYSTEMS ENGINEER Therapy Visit [address] [address] Zain Quintana MD [address] [place] [address] Lainey Simon PT [address] [place] [address] 11/04/2023 10:50 AM SENIOR WINDOWS SYSTEMS ENGINEER Therapy Visit [address] [address] Zain Quintana MD [address] [place] [address] Lainey Simon, PT [address] [place] [address] 11/17/2023 11:00 AM SENIOR WINDOWS SYSTEMS ENGINEER Therapy Visit [address] [address] Lainey Simon, PT [address] [place] [address] 11/24/2023 10:40 AM CDT Office Visit [facility]ology [facility] [address] [phone] Abby Vasquez MD [address] [place] [address] 11/24/2023 1:30 PM CDT Therapy Visit [address] [address] Lainey Simon, PT [address] [place] [address] 12/01/2023 10:20 AM CDT Therapy Visit [address] [address] Lainey Simon, PT [address] [place] [address] 12/08/2023 10:20 AM CDT Therapy Visit [address] [address] Lainey Simon, PT [address] [place] [address] 01/13/2024 10:00 AM CDT Virtual Visit [facility] Neurology Clinic [address] 3rd [place] [phone] Rosalba Pendleton APRN [address] [id number] [place] [address] 01/20/2024 8:00 PM CDT Therapy Visit [facility] [address] [place] [phone] 03/14/2024 10:30 AM CDT Office Visit [facility] [address] [place] [phone] Abhishek Acevedo PA-C [address] [phone] 03/21/2024 11:30 AM CDT Office Visit [facility]al Surgery [facility] [address] 4th [place] [phone] Zain Quintana MD [address] [place] [address] 126515 documented as of this encounter Visit Diagnoses Not on filedocumented in this encounter Additional Health Concerns Infection Onset Date Last Indicated Resolved Time Rule Out COVID-19 04/03/2023 04/03/2023 04/04/2023 6:30 PM CDT Assessment Noted Time PHQ-9 Depression Total Score: 11 022 11:52 AM CDT documented as of this encounter Care Teams Educational Sign Language Interpreter Relationship Specialty Start Date End Date Monty Musa MD [facility] [address] [place] [place] [address] PCP - General Family Medicine 08/13/21 Alfonso Tang [facility] [address] [place] [address] [facility] Practice 08/13/21 Dayanara Bee MD [address] 8026[address] Pediatrics 12/26/14 Min Lange MD [address] [address] Neurology 03/30/16 Marlo Madsen MD [address] [place] [address] Cardiology 10/27/16 Mel Buckley, RN Nurse Coordinator Physical Medicine and Rehabilitation 12/02/16 Douglas Cadet MD 500 [place] [address] Gastroenterology 08/13/21 Rosalba Pendleton APRN RAILCAR SWITCHMAN [address] [place] [address] [phone] Nurse Practitioner Neurology 09/05/21 Rosalba Pendleton APRN RAILCAR SWITCHMAN [address] [place] [address] Assigned Neuroscience Provider 11/09/21 Douglas Cadet MD 500 [place] [address] Assigned Gastroenterology Provider 03/14/22 09/03/23 Marlo Madsen MD [address] [place] [address] Assigned Heart and Vascular Provider 03/14/22 Abby Vasquez MD 909 [place], [place] 0[address]85 Gastroenterology 07/16/22 Abby Vasquez MD [address] [place] [address] 294645 Assigned PCP 09/26/22 10/06/23 Airam Hodges PA-C 500 [place], [place] 227945 Physician Quill Worker Surgery 07/19/23 Zain Quintana MD 500 [place], [place] 661375 Assigned Surgical Provider 10/07/23 Latricia Pettit PA-C [address] [place] [address] 955965 Assigned Gastroenterology Provider 10/15/23 documented as of this encounter
--- OUTSIDE RECORDS SUMMARY | 2023-10-25 14:16 | XMS_ITS | Encounter Summary ---
Author Name Unknown Organization [place] Address [address] [facility] [place] [address] Care Team Providers Care Wing Mailer Machine Operator Name Role Phone Monty Musa MD Primary Care Provider [phone] Alfonso Tang Unavailable Unavailable Dayanara Bee MD Unavailable [phone] Min Lange MD Unavailable Unavailable Marlo Madsen MD Unavailable [phone] Mel Buckley RN Unavailable [phone] Douglas Cadet MD Unavailable [phone] Rosalba Pendleton APRN MALE IMPERSONATOR Unavaila ble Rosalba Pendleton APRN MALE IMPERSONATOR Unavaila ble Douglas Cadet MD Unavailable [phone] Marlo Madsen MD Unavailable [phone] Abby Vasquez MD Unavailable Abby Vasquez MD Unavailable Reason for Visit * Reason Comments Follow Up Encounter Details Date Type Department Care Team (Latest Contact Info) Description 12/09/2022 2:00 PM CDT Office Visit [facility] Gastroenterology Clinic [place] [phone] [facility] SE 4th [place] [address] Abby Vasquez MD 9 [place] [address] Constipation, unspecified constipation type (Primary [...] Sex Assigned at Female 10/31/2021 7:59 AM PANEL ASSEMBLER Gender Identity Female 10/31/2021 7:59 AM PANEL ASSEMBLER Sexual Orientation Straight 10/31/2021 7: 59 AM PANEL ASSEMBLER COVID-19 Exposure Response Date Recorded In the [...] to contact me through our GI RN Boat Loader Helper, Sheri Edmonds, at . documented in this [...] any further questions. A total of 25 [id number] minutes was spent with this patient, >50% of which was counseling regarding the above delineated issues. An additional 15 minutes was spent on the date of the encounter doing chart review, documentation, and further activities as noted above. Abby Vasquez MD Windows System Adminsupervisor blast furnace auxiliaries Division of Gastroenterology, Hepatology and Nutrition [facility] HPI: Ms Latricia Hatch is a very pleasant 32 yo female with dysautonomia, frequent migraine HAs, chronic diffuse abdominal pain, constipation, nausea, and prior adenomatous polyp who returns to GI clinic forfollow-up of her constipation and nausea. She was previously seen by Dr. Dawson and Dr. Vasquez prior to moving to [place] in 2017 after getting . She moved back to [place] recently and was seen by Dr. 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 ?? Briefly, she was started on Linzess around 2013 for chronic constipation which improved her constipation and resulted in BMs every other day. In 2016, she moved to [place] and stopped Linzess as she felt her [...] polyps. She subsequently had another colonoscopy in [place] which she reports was normal. In early 2020, she had a colonoscopy in [place] which was reported to be negative for [...] st Contact Info) Description 10/26/2023 1:00 PM PANEL ASSEMBLER Virtual Visit [facility] [address] [phone] Latricia Pettit PA-C [address] [place] [address] 10/28/2023 10:50 AM PANEL ASSEMBLER Therapy Visit [address] [address] Zain Quintana MD [address] [place] [address] 211345 Lainey Simon, PT [address] [place] [address] 11/04/2023 10:50 AM PANEL ASSEMBLER Therapy Visit [address] [address] Zain Quintana MD [address] [place] [address] Laieny Simon, PT [address] [place] [address] 11/17/2023 11:00 AM PANEL ASSEMBLER Therapy Visit [address] [address] Lainey Simon, PT [address] [place] [address] 11/24/2023 10:40 AM CDT Office Visit [facility] [address] [phone] Abby Vasquez MD [address] [place] [address] 11/24/2023 1:30 PM CDT Therapy Visit [address] [address] Lainey Simon, PT [address] [place] [address] 617707 12/01/2023 10:20 AM CDT Therapy Visit [address] [address] Lainey Simon, PT [address] [place] [address] 12/08/2023 10:20 AM CDT Therapy Visit [address] [address] Lainey Simon, PT [address] [place] [address] 112857 01/13/2024 10:00 AM CDT Virtual Visit [facility] Neurology Clinic [address] 3rd [place] [phone] Rosalba Pendleton, MAXIMILIANO [id number] [address] 01/20/2024 8:00 PM CDT Therapy Visit [facility] [place] [phone] [place] [address] SYDNIE Martinez [phone] 03/14/2024 10:30 AM CDT Office Visit [place] [address] [place] [phone] Abhishek Acevedo PA-C [address] [facility] 103 [place] [address] 03/21/2024 11:30 AM CDT Office Visit [facility] Colon [facility]al Surgery [facility] [place] [phone] [facility] 4th [place] [phone] Zain Quintana MD 500 [place], [place] 425155 documented as of this encounter Visit Diagnoses Diagnosis Constipation, unspecified constipation type- Primary documented in this encounter Additional Health Concerns Assessment Noted Time PHQ-9 Depression Total Score: 022 11:52 AM CDT documented as of this encounter Care Teams Wing Mailer Machine Operator Relationship Specialty Start Date End Date Monty Musa MD [facility] [address] [place] [address] PCP - General Family Medicine 08/13/21 Alfonso Tang [facility] [address] [place] [address] Family Practice 08/13/21 Dayanara Bee MD [address] [place] [address] Pediatrics 12/26/14 Min Lange MD [address] [place] [address] Neurology 03/30/16 Marlo Madsen MD [address] [place] [address] 519265 Cardiology 10/27/16 Mel Buckley, RN Nurse Coordinator Physical Medicine and Rehabilitation 12/02/16 Douglas Cadet MD [address] [place] [address] 197385 Gastroenterology 08/13/21 Rosalba Pendleton APRN MALE IMPERSONATOR [address] [place] [address] Nurse Practitioner Neurology 09/05/21 Rosalba Pendleton APRN MALE IMPERSONATOR [address] [place] [address] Assigned Neuroscience Provider 11/09/21 Douglas Cadet MD [address] [place] [address] Assigned Gastroenterology Provider 03/14/22 09/03/23 Marlo Madsen MD [address] [place] [address] 508 [place] [address] Assigned Heart and Vascular Provider 03/14/22 Abby Vasquez MD [address] [place] [address] Gastroenterology 07/16/22 Abby Vasquez MD [address] [place] [address] Assigned PCP 09/26/22 10/06/23 documented as of this encounter
--- OUTSIDE RECORDS SUMMARY | 2023-10-25 14:16 | XMS_ITS | Encounter Summary ---
Author Name Unknown Organization [place] Address [address] [facility] [address] Care Team Providers Care Needle Molder Name Role Phone Monty Musa MD Primary Care Provider [phone] Alfonso Tang Unavailable Unavailable Dayanara Bee MD Unavailable [phone] Min Lange MD Unavailable Unavailable Marlo Madsen MD Unavailable [phone] Mel Buckley RN Unavailable [phone] Douglas Cadet MD Unavailable [phone] Rosalba Pendleton APRN AXMINSTER RUG SETTER Unavaila ble Rosalba Pendleton APRN AXMINSTER RUG SETTER Unavaila ble Douglas Cadet MD Unavailable [phone] Marlo Madsen MD Unavailable [phone] Abby [...] Sex Assigned at Female 10/31/2021 7:59 AM OPERATING ENGINEER APPRENTICE Gender Identity Female 10/31/2021 7:59 AM OPERATING ENGINEER APPRENTICE Sexual Orientation Straight 10/31/2021 7: 59 AM OPERATING ENGINEER APPRENTICE COVID-19 Exposure Response Date Recorded In the last 10 days, have yo u been in contact with someone who was confirmed or suspected to have Coronavirus/COVID-19? No / Unsure 12/09/2022 1:53 PM CDT documented as of this encounter Plan of Treatment Upcoming Encounters Date Type Department Care Team (Late st Contact Info) Description 10/26/2023 1:00 PM OPERATING ENGINEER APPRENTICE Virtual Visit [facility] [address] [phone] Latricia Pettit PA-C [address] [place] [address] 10/28/2023 10:50 AM OPERATING ENGINEER APPRENTICE Therapy Visit [address] [address] Zain Quintana MD [address] [place] [address] Lainey Simon, JAY [address] [place] [address] 11/04/2023 10:50 AM OPERATING ENGINEER APPRENTICE Therapy Visit [address] [address] Zain Quintana MD [address] [place] [address] Lainey Simon, JAY [address] [place] [address] 11/17/2023 11:00 AM OPERATING ENGINEER APPRENTICE Therapy Visit [address] [address] Lainey Simon, PT [address] [place] [address] 11/24/2023 10:40 AM CDT Office Visit [facility] [address] [place] [phone] Abby Vasquez MD [address] [place] [address] 221975 11/24/2023 1:30 PM CDT Therapy Visit [address] [address] Lainey Simon, PT [address] [place] [address] 12/01/2023 10:20 AM CDT Therapy Visit [address] [address] Lainey Simon, PT [address] [place] [address] 12/08/2023 10:20 AM CDT Therapy Visit [address] [address] Lainey Simon, PT [address] [place] [address] 01/13/2024 10:00 AM CDT Virtual Visit [facility] [address] [place] [phone] Rosalba Pendleton, MARKETING INTERN AXMINSTER RUG SETTER 909 [facility] [id number] [place] [address] 01/20/2024 8:00 PM CDT Therapy Visit [facility] 6363 [facility] [address] [place] [phone] 03/14/2024 10:30 AM CDT Office Visit [facility] 6363 [facility] [address] [place] [phone] Abhishek Acevedo PA-C 4633 [facility] 103 [place], [place] [phone] 03/21/2024 11:30 AM CDT Office Visit [facility] [address] 4th [place] [phone] Zain Quintana MD [address] [place] [address] [phone] documented as of this encounter Visit Diagnoses Not on filedocumented in this encounter Additional Health Concerns Assessment Noted Time PHQ-9 Depression Total Score: 11 022 11:52 AM CDT documented as of this encounter Care Teams Needle Molder Relationship Specialty Start Date End Date Monty Musa MD [facility] [address] [place] [address] PCP - General Family Medicine 08/13/21 Alfonso Tang [facility] [address] [place] [address] Family Practice 08/13/21 Dayanara Bee MD [address] [place] [address] 75 [place] [address] Pediatrics 12/26/14 Min Lange MD 420 [facility] 75 [place] [address] Neurology 03/30/16 Marlo Madsen MD [address] [place] 330718 [place] [address] Cardiology 10/27/16 Mel Buckley, RN Nurse Coordinator Physical Medicine and Rehabilitation 12/02/16 Douglas Cadet MD 500 [place] [address] Gastroenterology 08/13/21 Rosalba Pendleton APRN AXMINSTER RUG SETTER [address] [place] [address] 879455 Nurse Practitioner Neurology 09/05/21 Rosalba Pendleton APRN AXMINSTER RUG SETTER [address] [place] [address] 026375 Assigned Neuroscience Provider 11/09/21 Douglas Cadet MD 500 [place] [address] Assigned Gastroenterology Provider 03/14/22 09/03/23 Marlo Madsen MD [address] [address] Assigned Heart and Vascular Provider 03/14/22 Abby Vasquez MD [address] [place] [address] Gastroenterology 07/16/22 Abby Vasquez MD 909 [place] [address] Assigned PCP 09/26/22 10/06/23 documented as of this encounter
--- OUTSIDE RECORDS SUMMARY | 2023-10-25 14:16 | XMS_ITS | Encounter Summary ---
Author Name Unknown Organization [place] Address [address] [facility] [place] [address] Care Team Providers Care Retinal Surgeon Name Role Phone Monty Musa MD Primary Care Provider [phone] Alfonso Tang Unavailable Unavailable Dayanara Bee MD Unavailable [phone] Min Lange MD Unavailable Unavailable Albert Gee MD Unavailable [phone] Mel Buckley RN Unavailable [phone] Douglas Cadet MD Unavailable [phone] Rosalba Pednleton APRN BASKET BRAIDER Unavaila ble Rosalba Pendleton APRN BASKET BRAIDER Unavaila ble Douglas Cadet MD Unavailable [phone] Albert Gee MD Unavailable [phone] Abby Vasquez MD Unavailable Abby Vasquez MD Unavailable Reason for Referral * CV Testing (Routine) - Pending Review Specialty Diagnoses / Procedures Referred By Contac t Referred To Contact Diagnoses Syncope and collapse Palpitations Vasovagal syncope Procedures Cardiac Event Monitor Adult/Pediatric Albert Gee MD [address] [address] Referral ID Status Reason Start Date Expiration Date V isits Requested Visits Authorized Pending Review 01/19/2023 01/19/2024 1 1 * Consultation (Routine: Next available opening) - Pending Review Specialty Diagnoses / Procedures Referred By Contac t Referred To Contact Cardiovascular Disease Diagnoses Syncope and collapse Palpitations Vasovagal syncope Albert Gee MD [address] [place] [address] Referral ID Status Reason Start Date Expiration Date V isits Requested Visits Authorized Pending Review 01/19/2023 01/19/20[address] Gee in 2-3 months Question Answer Follow-up with: Self Scheduling Instructions: [facility] will call you to coordinate your care as prescribed by your provider. If you have concerns about scheduling, please call [phone]. Comments [facility] will call you to coordinate your care as prescribed by your provider. If you have concerns about scheduling, please call [phone]. Reason for Visit * Reason Comments Follow Up * Consultation (Routine: Next available opening) - Closed Specialty Diagnoses / Procedures Referred By Emily jenkins Referred To Contact Cardiovascular Disease Diagnoses Vasovagal syncope Albert Gee MD [address] [place] [address] Referral ID Status Reason Start Date Expiration Date Visits Re quested Visits Authorized [id number] Closed 03/03/2022 03/03/2023 1 1 Encounter Details Date Type Department Care Team (Late st Contact Info) Description 01/19/2023 12:30 PM CDT Virtual Visit [facility] Heart Clinic [address] [address] Albert Gee MD [address] [place] [address] Syncope and collapse (Primary Dx); Palpitations; Vasovagal syncope Social History Tobacco Use Types Packs/Day Years Used Date Smoking Tobacco: Never Smokeless Tobacco: Never Alcohol Use Standard Drinks/Week Comments No 0 (1 standard drink = 0.6 oz pur e alcohol) PHQ-2 Answer Date Recorded PHQ-2 Score 2 01/19/2023 Sex and Gender Information Value Date Recorded Sex Assigned at Female 10/31/2021 7:59 AM SUPERVISOR FURNACE PROCESS Gender Identity Female 10/31/2021 7:59 AM SUPERVISOR FURNACE PROCESS Sexual Orientation Straight 10/31/2021 7: 59 AM SUPERVISOR FURNACE PROCESS documented as of this encounter Patient Instructions * Patient Instructions* Juliana Edwards RN - 01/19/2023 12:30 PM CDT Images from the original note were not included. You were seen in the Electrophysiology Clinic today by: Dr Gee Plan: Medication Changes: START- Midodrine 5mg twice a day, not to be taken within 4 hours of lying down Labs/Tests Needed: 30 day QuickMobile event monitor - to be mailed to patient Follow up Visit: 2-3 months If you have further questions, please utilize [employer] to contact us. Your Care Team: EP Cardiology Telephone Number Nurse Line DIAZ Linder RN For scheduling appointments: Leslie For procedure scheduling: Lizet Laguna For the Device Clinic (Pacemakers, ICDs, Loop Recorders) During business hours: [phone] After business hours: [phone]- select option 4 and ask for job code [id number]. On-call human resources executive assistant for after hours or on weekends: [phone], option #4, and ask to speak to the on-call human resources executive assistant. Cardiovascular Clinic: [address] [place] [address]. [place] [address] As always, Thank you for trusting us [...] or other rheumatologic complaint this time. Exam: [facility] 10/11/2022 (Approximate) GENERAL APPEARANCE: healthy, alert and [...] mg twice daily-send prescription to Pharmacy in [facility]-3-month supply, 4 refills 2. Arrange for Biotel heart monitor for 1 month to assess palpitations 3. Follow-up video visit to be arranged after Biotel recording is complete- approximately 2 to 3 months Total elapsed time today with chart review, video visit and documentation 30 minutes Video on 12: 20; off 12: 35 Platform Doximity Patient at home; clinic [facility] heart I very much appreciated the opportunity to see and assess Latricia Hatch in the clinic today. [place] not hesitate to contact my office if you have any questions or concerns. Albert Gee MD Cardiac Arrhythmia Service [facility] [phone] CC ALBERT GEE documented in this encounter Nursing Notes * Brit Johnson MA - 01/19/2023 12:30 PM CDT Is the patient currently in the state of [place]? YES Visit mode:VIDEO If the visit is dropped, the patient can be reconnected by: VIDEO VISIT: Text to cell phone: [phone] Will anyone else be joining the visit? [...] Contact Info) Description 10/26/2023 1:00 PM SUPERVISOR FURNACE PROCESS Virtual Visit [facility] Gastroenterology Clinic [address] 4th [place] [phone] Latricia Pettit PA-C [address] [place] [address] 10/28/2023 10:50 AM SUPERVISOR FURNACE PROCESS Therapy Visit [address] [address] Zain Quintana MD [address] [place] [address] [phone] Lainey Simon, PT [address] [place] [address] 120307 11/04/2023 10:50 AM SUPERVISOR FURNACE PROCESS Therapy Visit [address] [address] Zain Quintana MD [address] [place] [address] Lainey Simon, PT [address] [place] [address] 063857 11/17/2023 11:00 AM SUPERVISOR FURNACE PROCESS Therapy Visit [address] [address] Lainey Simon PT [address] [place] [address] 11/24/2023 10:40 AM CDT Office Visit [facility] Gastroenterology Clinic [address] 4th [place] [phone] Abby Vasquez MD [address] [place] [address] 11/24/2023 1:30 PM CDT Therapy Visit [address] [address] Lainey Simon, PT [address] [place] [address] 630627 12/01/2023 10:20 AM CDT Therapy Visit [address] [address] Lainey Simon, PT [address] [place] [address] 12/08/2023 10:20 AM CDT Therapy Visit [address] [address] Lainey Simon, PT [address] [place] [address] 01/13/2024 10:00 AM CDT Virtual Visit [facility] Neurology Clinic [address] 3rd [place] [phone] Rosalba Pendleton APRN [id number] [place] [address] 01/20/2024 8:00 PM CDT Therapy Visit [facility] Sleep [address] [place] [phone] 03/14/2024 10:30 AM CDT Office Visit [facility] [place] 6363 [facility] 103 [place] [phone] Abhishek Acevedo PA-C 6363 [facility] 103 [place] [address] 03/21/2024 11:30 AM CDT Office Visit [facility] Colon and Rectal Surgery Clinic [place] [address] [facility] [address] 4th [place] [address] Zain Quintana MD [address] [place] [address] Scheduled Referrals Name Type Priority Associated [...] documented as of this encounter Care Teams Retinal Surgeon Relationship Specialty Start Date End Date Monty Musa MD [facility] [address] [place] [address] PCP - General Family Medicine 08/13/21 Alfonso Tang [facility] [address] [place] [address] Family Practice 08/13/21 Dayanara Bee MD [address] [place] [address] [address] Pediatrics 12/26/14 Min Lange MD [address] [place] [address] Neurology 03/30/16 Albert Gee MD [address] [place] [address] Cardiology 10/27/16 Mel Buckley, RN Nurse Coordinator Physical Medicine and Rehabilitation 12/02/16 Douglas Cadet MD [address] [place] [address] Gastroenterology 08/13/21 Rosalba Pendleton APRN BASKET BRAIDER [address] [place] [address] Nurse Practitioner Neurology 09/05/21 Rosalba Pendleton APRN BASKET BRAIDER [address] [place] [address] Assigned Neuroscience Provider 11/09/21 Douglas Cadet MD [address] [place] [address] Assigned Gastroenterology Provider 03/14/22 09/03/23 Albert Gee MD [address] [place] [address] Assigned Heart and Vascular Provider 03/14/22 Abby Vasquez MD [address] [place] [address] Gastroenterology 07/16/22 Abby Vasquez MD 909 [place] [address] Assigned PCP 09/26/22 10/06/23 documented as of this encounter
--- OUTSIDE RECORDS SUMMARY | 2023-10-25 14:16 | XMS_ITS | Encounter Summary ---
Author Name Unknown Organization [place] Address [address] [facility] [place] [address] Care Team Providers Care Contact Lens Blocker Name Role Phone Monty Musa MD Primary Care Provider [phone] Alfonso Tang Unavailable Unavailable Dayanara Bee MD Unavailable [phone] Min Lange MD Unavailable Unavailable Marlo Madsen MD Unavailable [phone] Mel Buckley RN Unavailable [phone] Douglas Cadet MD Unavailable [phone] Rosalba Pendleton APRN LOCOMOTIVE DRIVER Unavaila ble Rosalba Pendleton APRN LOCOMOTIVE DRIVER Unavaila ble Douglas Cadet MD Unavailable [phone] Marlo Madsen MD Unavailable [phone] Abby Vasquez MD Unavailable Abby Vasquez MD Unavailable Reason for Visit * Reason Onset Date Comments Prior Auth - Medication 11/19/2022 linaclot alesia (LINZESS) 290 MCG capsule -[place] APPROVED Encounter Details Date Type Department Care Team (Late st Contact Info) Description 11/19/2022 [facility] Gastroenterology Clinic [address] 4th [place] [address] Sheri Edmonds RN Prior Auth [...] Sex Assigned at Female 10/31/2021 7:59 AM ON SITE PROPERTY MANAGER Gender Identity Female 10/31/2021 7:59 AM ON SITE PROPERTY MANAGER Sexual Orientation Straight 10/31/2021 7: 59 AM ON SITE PROPERTY MANAGER documented as of this encounter Miscellaneous Notes * Telephone Encounter - Ed Ching - 11/23/2022 2:32 PM CDT Images from the original note were not included. Prior Authorization Approval Authorization Effective Date: 10/24/2022 Authorization Expiration Date: 11/23/2023 Medication: linaclotide (LINZESS) 290 MCG capsule -[place] APPROVED Approved Dose/Quantity: Reference #: Insurance One[employer]: [employer] jobs - Expected CoPay: CoPay Card Available: [facility] Assistance Needed: Which Pharmacy is filling the prescription (Not needed for infusion/clinic administered): [facility] [address] [place] [address] Pharmacy Notified: Yes- Instructed pharmacy to notify patient when script is ready to brick picker/ship. Patient Notified: Yes * Telephone Encounter - Her Ed - 11/23/2022 1:31 PM CDT Images from the original note were not included. Central Prior Authorization Team PA Initiation Medication: linaclotide (LINZESS) 290 MCG capsule Insurance Company: [employer] jobs - Pharmacy Filling the Rx: [facility] [address] [place] [address] 3 Filling Pharmacy Filling Pharmacy Fax: Start [...] MCG Oral Capsule (Linzess) Class: E-Prescribe Order: [id number] E-Prescribing Status: Receipt confirmed by pharmacy (11/18/2022 ??1:01 PM ON SITE PROPERTY MANAGER) ICD code (if different than what is on RX): Previously Tried and Failed: Amitiza Rationale: Loss of efficacy Insurance Name: Insurance ID: Pharmacy Information (if different than what is on RX) Name: Phone: SITE PROPERTY MANAGER documented in this encounter Plan of Treatment Upcoming Encounters Date Type Department Care Team (Late st Contact Info) Description 10/26/2023 1:00 PM ON SITE PROPERTY MANAGER Virtual Visit [facility] Gastroenterology Clinic [address] [place] [phone] Latricia Pettit PA-C [address] [place] [address] 10/28/2023 10:50 AM ON SITE PROPERTY MANAGER Therapy Visit [facility] Rehabilitation Services [facility] [address] [facility] [address] [place], [place] [address] Zain Quintana MD [address] [place] [address] [place] [address] [place], [place] 7[address]337 11/04/2023 10:50 AM ON SITE PROPERTY MANAGER Therapy Visit [address] [address] Zain Quintana MD [address] [place] [address] Lainey Simon, PT [address] [place] [address] 11/17/2023 11:00 AM ON SITE PROPERTY MANAGER Therapy Visit [address] [address] Lainey Simon, PT [address] [place] [address] 11/24/2023 10:40 AM CDT Office Visit [facility] Gastroenterology Clinic [address] [phone] Abby Vasquez MD [address] [place] [address] 11/24/2023 1:30 PM CDT Therapy Visit [address] [address] Lainey Simon, PT [address] [place] [address] 12/01/2023 10:20 AM CDT Therapy Visit [address] [address] Lainey Simon, PT [address] [place] [address] 12/08/2023 10:20 AM CDT Therapy Visit [facility] Rehabilitation Services [facility] [address] [facility] [address] [place] [address] Alfred LaineyJAY lowry [address] [place] [address] 01/13/2024 10:00 AM CDT Virtual Visit [facility] Neurology Clinic [address] 3rd [place] [phone] Rosalba Pendleton, BLINTZE ROLLER LOCOMOTIVE DRIVER [address] [place] [address] [id number] [place], [place] 553025 01/20/2024 8:00 PM CDT Therapy Visit [facility] Sleep [address] [phone] 03/14/2024 10:30 AM CDT Office Visit [address] [address] Abhishek Acevedo PA-C 9736 [facility] 103 [place], [place] [phone] 03/21/2024 11:30 AM CDT Office Visit [facility] Colon and Rectal Surgery Clinic [address] 4th [place] [phone] Zain Quintana MD [address] [place] [address] documented as of this encounter Visit Diagnoses Not on filedocumented in this encounter Additional Health Concerns Assessment Noted Time PHQ-9 Depression Total Score: 11 022 11:52 AM CDT documented as of this encounter Care Teams Contact Lens Blocker Relationship Specialty Start Date End Date Monty Musa MD [facility] [address] [place] [address] PCP - General Family Medicine 08/13/21 Alfonso Tang [facility] [address] [place] [address] [facility] Practice 08/13/21 Dayanara Bee MD 420 [facility] 75 [place], [place] 421855 Pediatrics 12/26/14 Min Lange MD 420 [facility] 75 [place] [address] Neurology 03/30/16 Marlo Madsen MD 420 [facility] 508 [place], [place] 547625 MD Cardiology 10/27/16 Mel Buckley RN Nurse Coordinator Physical Medicine and Rehabilitation 12/02/16 Douglas Cadet MD 500 [place], [place] 544965 MD Gastroenterology 08/13/21 Rosalba Pendleton APRN LOCOMOTIVE DRIVER [address] [id number] [place], [place] 047835 Nurse Practitioner Neurology 09/05/21 Rosalba Pendleton APRN LOCOMOTIVE DRIVER [address] [place], [place] [address] Assigned Neuroscience Provider 11/09/21 Douglas Cadet MD 500 [place], [place] 387645 Assigned Gastroenterology Provider 03/14/22 09/03/23 Marlo Madsen MD 420 [facility] 508 [place], [place] 091465 Assigned Heart and Vascular Provider 03/14/22 Abby Vasquez MD [address] [place] [address] 518925 Gastroenterology 07/16/22 Abby Vasquez MD [address] [place] [address] 857025 Assigned PCP 09/26/22 10/06/23 documented as of this encounter
--- OUTSIDE RECORDS SUMMARY | 2023-10-25 14:16 | XMS_ITS | Encounter Summary ---
Author Name Unknown Organization [place] Address [address] [facility] [place] [address] Care Team Providers Care Manager Hospice Name Role Phone Monty Musa MD Primary Care Provider [phone] Alfonso Tang Unavailable Unavailable Dayanara Bee MD Unavailable [phone] Min Lange MD Unavailable Unavailable Marlo Madsen MD Unavailable [phone] Mel Buckley RN Unavailable [phone] Douglas Cadet MD Unavailable [phone] Rosalba Pendleton APRN ELECTRO MECHANICAL SOLAR TECHNICIAN Unavaila ble Rosalba Pendleton APRN ELECTRO MECHANICAL SOLAR TECHNICIAN Unavaila ble Douglas Cadet MD Unavailable [phone] Marlo Madsen MD Unavailable [phone] Abby Vasquez MD Unavailable Abby Vasquez MD Unavailable Airam Hodges PA-C Unavailable [phone] Zain Quintana MD Unavailable [phone] Latricia Pettit PA-C Unavailable Encounter Details Date Type Department Care Team (Late st Contact Info) Description 11/03/2022 MyC Medical Advice [facility] Neurology Clinic [address] [phone] iCerra Perez RN Social History Tobacco Use Types Packs/Day Years Used Date Smoking Tobacco: Never Smokeless Tobacco: Never Alcohol Use Standard Drinks/Week Comments No 0 (1 standard drink = 0.6 oz pur e alcohol) PHQ-2 Answer Date Recorded PHQ-2 Score 3 05/28/2022 Sex and Gender Information Value Date Recorded Sex Assigned at Female 10/31/2021 7:59 AM RETREAD OPERATOR Gender Identity Female 10/31/2021 7:59 AM RETREAD OPERATOR Sexual Orientation Straight 10/31/2021 7: 59 AM RETREAD OPERATOR documented as of this encounter Plan of Treatment Upcoming Encounters Date Type Department Care Team (Late st Contact Info) Description 10/26/2023 1:00 PM RETREAD OPERATOR Virtual Visit [facility] Gastroenterology Clinic [address] [phone] Latricia Pettit PA-C [address] [place] [address] [phone] 10/28/2023 10:50 AM RETREAD OPERATOR Therapy Visit [address] [address] Zain Quintana MD [address] [place] [address] [phone] Lainey Simon, PT [address] [place] [address] 11/04/2023 10:50 AM RETREAD OPERATOR Therapy Visit [address] [address] Zain Quintana MD [address] [place] [address] [phone] Lainey Simon, PT [address] [place] [address] 95919 11/17/2023 11:00 AM RETREAD OPERATOR Therapy Visit [address] [address] Lainey Simon, PT [address] [place] [address] 86097 11/24/2023 10:40 AM CDT Office Visit [facility] Gastroenterology Clinic [address] [phone] Abby Vasquez MD [address] [place] [address] 8[address] 11/24/2023 1:30 PM CDT Therapy Visit [address] [address] Lainey Simon, PT [address] [place] [address] 94105 12/01/2023 10:20 AM CDT Therapy Visit [address] [address] Lainey Simon, PT [address] [place] [address] 54233 12/08/2023 10:20 AM CDT Therapy Visit [address] [address] Lainey Simon, PT [address] [place] [address] 70097 01/13/2024 10:00 AM CDT Virtual Visit [facility] Neurology Clinic [address] 3rd [place] [phone] Rosalba Pendleton APRN ELECTRO MECHANICAL SOLAR TECHNICIAN [address] [place] [address] [id number] [place] [address] 01/20/2024 8:00 PM CDT Therapy Visit [facility] [address] [place] [address] [phone] 03/14/2024 10:30 AM CDT Office Visit [address] [phone] Abhishek Acevedo PA-C 6356 [facility] 103 [place], [place] [phone] 03/21/2024 11:30 AM CDT Office Visit [facility] Colon [facility]al Surgery Clinic [address] 4th [place] [phone] Zain Quintana MD [address] [place] [address] 275345 documented as of this encounter Visit Diagnoses Not on filedocumented in this encounter Additional Health Concerns Infection Onset Date Last Indicated Resolved Time Rule Out COVID-19 04/03/2023 04/03/2023 04/04/2023 6:30 PM CDT Assessment Noted Time PHQ-9 Depression Total Score: 11 022 11:52 AM CDT documented as of this encounter Care Teams Manager Hospice Relationship Specialty Start Date End Date Monty Musa MD [facility] [address] [place] [address] PCP - General Family Medicine 08/13/21 Alfonso Tang [facility] [address] [place] [address] [facility] 08/13/21 Dayanara Bee MD [address] 159065 Pediatrics 12/26/14 Min Lange MD [address] [address] Neurology 03/30/16 Marlo Madsen MD [address] [place] [address] 158455 Cardiology 10/27/16 Mel Buckley, RN Nurse Coordinator Physical Medicine and Rehabilitation 12/02/16 Douglas Cadet MD 500 [place] [address] Gastroenterology 08/13/21 Rosalba Pendleton APRN ELECTRO MECHANICAL SOLAR TECHNICIAN [address] [place] [address] [phone] Nurse Practitioner Neurology 09/05/21 Rosalba Pendleton APRN ELECTRO MECHANICAL SOLAR TECHNICIAN [address] [place] [address] 23180 Assigned Neuroscience Provider 11/09/21 Douglas Cadet MD 500 [place] [address] Assigned Gastroenterology Provider 03/14/22 09/03/23 Marlo Madsen MD [address] [place] [address] [phone] Assigned Heart and Vascular Provider 03/14/22 Abby Vasquez MD 9 [place], [place] 557045 Gastroenterology 07/16/22 Abby Vasquez MD [address] [place] [address] 365115 Assigned PCP 09/26/22 10/06/23 Airam Hodges PA-C 500 [place], [place] 680965 Physician Stapler Coil Unit Surgery 07/19/23 Zain Quintana MD 500 [place], [place] 186895 Assigned Surgical Provider 10/07/23 Latricia Pettit PA-C [address] [place] [address] [phone] Assigned Gastroenterology Provider 10/15/23 documented as of this encounter
--- OUTSIDE RECORDS SUMMARY | 2023-10-25 14:17 | XMS_ITS | Encounter Summary ---
Author Name Unknown Organization [place] Address [address] [facility] [place] [address] Care Team Providers Care Oral Pathologist Name Role Phone Monty Musa MD Primary Care Provider [phone] Alfonso Tang Unavailable Unavailable Dayanara Bee MD Unavailable [phone] Min Lange MD Unavailable Unavailable Marlo Madsen MD Unavailable [phone] Mel Buckley RN Unavailable [phone] Douglas Cadet MD Unavailable [phone] Rosalba Pendleton APRN SPEECH LANG PATH Unavaila ble Rosalba Pendleton APRN SPEECH LANG PATH Unavaila ble Douglas Cadet MD Unavailable [phone] Marlo Madsen MD Unavailable [phone] Abby Vasquez MD Unavailable Abby Vasquez MD Unavailable Airam Hodges PA-C Unavailable [phone] Zain Quintana MD Unavailable [phone] Latricia Pettit PA-C Unavailable [phone] Encounter Details Date Type Department Care Team (Late st Contact Info) Description 08/03/2022 MyC Medical Advice [facility] Gastroenterology Clinic [address] [phone] Stephani Wheatley MA Social History Tobacco Use Types Packs/Day Years Used Date Smoking Tobacco: Never Smokeless Tobacco: Never Alcohol Use Standard Drinks/Week Comments No 0 (1 standard drink = 0.6 oz pur e alcohol) PHQ-2 Answer Date Recorded PHQ-2 Score 3 05/28/2022 Sex and Gender Information Value Date Recorded Sex Assigned at Female 10/31/2021 7:59 AM AIR HAMMER OPERATOR Gender Identity Female 10/31/2021 7:59 AM AIR HAMMER OPERATOR Sexual Orientation Straight 10/31/2021 7: 59 AM AIR HAMMER OPERATOR COVID-19 Exposure Response Date Recorded In the last 10 days, have yo u been in contact with someone who was confirmed or suspected to have Coronavirus/COVID-19? No / Unsure 07/14/2022 9:15 PM CDT documented as of this encounter Plan of Treatment Upcoming Encounters Date Type Department Care Team (Late st Contact Info) Description 10/26/2023 1:00 PM AIR HAMMER OPERATOR Virtual Visit [facility] Gastroenterology Clinic [address] [phone] Latricia Pettit PA-C [address] [place] [address] 10/28/2023 10:50 AM AIR HAMMER OPERATOR Therapy Visit [address] 300 [place] [address] Zain Quintana MD [address] [place] [address] 270065 [place] [phone] [place] [address] 11/04/2023 10:50 AM AIR HAMMER OPERATOR Therapy Visit [address] 300 [place] [address] Zain Qunitana MD [address] [place] [address] Lainey Simon, PT [address] [place] [address] 11/17/2023 11:00 AM AIR HAMMER OPERATOR Therapy Visit [address] [address] Lainey Simon, PT [address] [place] [address] 478[address] 11/24/2023 10:40 AM CDT Office Visit [facility] Gastro[facility]ology [facility] [address] [phone] Abby Vasquez MD [address] [place] [address] 359[address] 11/24/2023 1:30 PM CDT Therapy Visit [address] [address] Lainey Simon PT [address] [place] [address] 8[address]92 12/01/2023 10:20 AM CDT Therapy Visit [address] [address] Lainey Simon, PT [address] [place] [address] 63711 12/08/2023 10:20 AM CDT Therapy Visit [address] [address] [place] [address] [place] [address] 01/13/2024 10:00 AM CDT Virtual Visit [facility] Neurology [facility] [place] [address] [place] [address] 3rd [place] [phone] Rosalba Pendleton, LAYDOWN MACHINE OPERATOR SPEECH LANG PATH [address] [place] [address] [id number] [place] [address] 01/20/2024 8:00 PM CDT Therapy Visit [facility] [address] [phone] 03/14/2024 10:30 AM CDT Office Visit [address] [phone] Abhishek Acevedo PA-C [address] [phone] 03/21/2024 11:30 AM CDT Office Visit [facility]al [facility] [address] 4th [place] [phone] Zain Quintana MD [address] [place] [address] 208105 documented as of this encounter Visit Diagnoses Not on filedocumented in this encounter Additional Health Concerns Infection Onset Date Last Indicated Resolved Time Rule Out COVID-19 04/03/2023 04/03/2023 04/04/2023 6:30 PM CDT Assessment Noted Time PHQ-9 Depression Total Score: 11 05/28/ 022 11:52 AM CDT documented as of this encounter Care Teams Oral Pathologist Relationship Specialty Start Date End Date Monty Musa MD [facility] [address] [place] [address] PCP - General Family Medicine 08/13/21 Alfonso Tang [facility] [address] [place] [address] [facility] Practice 08/13/21 Dayanara Bee MD 420 [facility] 75 [place], [place] 839035 Pediatrics 12/26/14 Min Lange MD 420 [facility] 75 [place] [address] Neurology 03/30/16 Marlo Madsen MD 420 [facility] 508 [place], [place] 654195 Cardiology 10/27/16 Mel Buckley, DIAZ Nurse Coordinator Physical Medicine and Rehabilitation 12/02/16 Douglas Cadet MD 500 [place], [place] 143305 MD Gastroenterology 08/13/21 Rosalba Pendleton APRN SPEECH LANG PATH 909 [facility]2121CJ [place], [place] 548075 Nurse Practitioner Neurology 09/05/21 Rosalba Pendleton APRN SPEECH LANG PATH [address] [place] [id number] [place], [place] 561425 Assigned Neuroscience Provider 11/09/21 Douglas Cadet MD 500 [place], [place] 334505 Assigned Gastroenterology Provider 03/14/22 09/03/23 Marlo Madsen MD 420 [facility] 508 [place], [place] 125505 Assigned Heart and Vascular Provider 03/14/22 Abby Vasquez MD [address] [place] [address] 441225 Gastroenterology 07/16/22 Abby Vasquez MD [address] [place] [address] [phone] Assigned PCP 09/26/22 10/06/23 Airam Hodges PA-C 500 [place], [place] 731735 Physician Religion Department Chair Surgery 07/19/23 Zain Quintana MD [address] [place] [address] [phone] Assigned Surgical Provider 10/07/23 Latricia Pettit PA-C [address] [place] [address] 628305 Assigned Gastroenterology Provider 10/15/23 documented as of this encounter
--- OUTSIDE RECORDS SUMMARY | 2023-10-25 14:17 | XMS_ITS | Encounter Summary ---
Author Name Unknown Organization [place] Address [address] [facility] [place] [address] Care Team Providers Care Legislative Advocate Name Role Phone Alfonso Tang Primary Care Provider Unavailabl e Monty Musa MD Primary Care Provider [phone] Alfonso Tang Unavailable Unavailable Dayanara Bee MD Unavailable [phone] Min Lange MD Unavailable Unavailable BendMarlo molina MD Unavailable [phone] Mel Buckley RN Unavailable [phone] Douglas Cadet MD Unavailable [phone] Rosalba Pendleton APRN DONOR SERVICES TEAM LEADER Unavaila ble Rosalba Pendleton APRN DONOR SERVICES TEAM LEADER Unavaila ble Douglas Cadet MD Unavailable [phone] Marlo Madsen MD Unavailable [phone] Abby Vasquez MD Unavailable Abby Vasquez MD Unavailable Airam Hodges PA-C Unavailable [phone] Zain Quintana MD Unavailable [phone] Latricia Pettit PA-C Unavailable Encounter Details [...] Sex Assigned at Female 10/31/2021 7:59 AM SHARE DAIRY FARMER Gender Identity Female 10/31/2021 7:59 AM SHARE DAIRY FARMER Sexual Orientation Straight 10/31/2021 7: 59 AM SHARE DAIRY FARMER documented as of this encounter Plan of Treatment Upcoming Encounters Date Type Department Care Team (Late st Contact Info) Description 10/26/2023 1:00 PM SHARE DAIRY FARMER Virtual Visit [facility] Gastroenterology Clinic [address] [phone] Latricia Pettit PA-C [address] [place] [address] 10/28/2023 10:50 AM SHARE DAIRY FARMER Therapy Visit [address] [address] Zain Quintana MD [address] [place] [address] [phone] Lainey Simon, PT [address] [place] [address] 11/04/2023 10:50 AM SHARE DAIRY FARMER Therapy Visit [address] [address] Zain Quintana MD [address] [place] [address] 794855 Lainey Simon PT [address] [place] [address] [phone] 11/17/2023 11:00 AM SHARE DAIRY FARMER Therapy Visit [address] [address] Lainey Simon, PT [address] [place] [address] 34012 11/24/2023 10:40 AM CDT Office Visit [facility] Gastroenterology Clinic [address] 4th [place] [address] Abby Vasquez MD [address] [place] [address] 492505 11/24/2023 1:30 PM CDT Therapy Visit [address] [address] Lainey Simon, PT [address] [place] [address]15 12/01/2023 10:20 AM CDT Therapy Visit [address] [address] Lainey Simon, PT [address] [place] [address] 67[address] 12/08/2023 10:20 AM CDT Therapy Visit [address] [address] Lainey Simon, PT [address] [place] [address] 79[address] 01/13/2024 10:00 AM CDT Virtual Visit [facility] Neurology Clinic [address] 3rd [place] [address] Rosalba Pendleton APRN DONOR SERVICES TEAM LEADER [address] [place] [address] [id number] [place] [address] 01/20/2024 8:00 PM CDT Therapy Visit [facility] Sleep [facility] [address] [phone] 03/14/2024 10:30 AM CDT Office Visit [facility] Sleep [facility] [address] [phone] Abhishek Acevedo PA-C [address] [phone] 03/21/2024 11:30 AM CDT Office Visit [facility] Colon [facility]al Surgery Clinic [address] 4th [place] [phone] Zain Quintana MD [address] [place] [address] 466[address] documented as of this encounter Visit Diagnoses Not on filedocumented in this encounter Additional Health Concerns Infection Onset Date Last Indicated Resolved Time Rule Out COVID-19 04/03/2023 04/03/2023 04/04/2023 6:30 PM CDT documented as of this encounter Care Teams Legislative Advocate Relationship Specialty Start Date End Date Alfonso Tang PCP - General Family Practice 09/04/13 08/12/21 Monty Musa MD [facility]ICAL [facility] [address] [place] [address] PCP - General Family Medicine 08/13/21 Alfonso Tang Family Practice 08/13/21 Dayanara Bee MD [address] [place] [address] 75 [place] [address] Pediatrics 12/26/14 Min Lange MD 420 [facility] 75 [place] [address] Neurology 03/30/16 Marlo Mdasen MD [address] [address] Cardiology 10/27/16 Mel Buckley, RN Nurse Coordinator Physical Medicine and Rehabilitation 12/02/16 Douglas Cadet MD [address] [place] [address] Gastroenterology 08/13/21 Rosalba Pendleton APRN DONOR SERVICES TEAM LEADER [address] [place] [address] Nurse Practitioner Neurology 09/05/21 Rosalba Pendleton APRN DONOR SERVICES TEAM LEADER [address] [place] [address] 31182 Assigned Neuroscience Provider 11/09/21 Douglas Cadet MD [address] [place] [address] 8[address]60 Assigned Gastroenterology Provider 03/14/22 09/03/23 Marlo Madsen MD [address] [place] [address] 00193 Assigned Heart and Vascular Provider 03/14/22 Abby Vasquez MD [address] [place] [address] 7[address]25 Gastroenterology 07/16/22 Abby Vasquez MD 9 [place] [address] Assigned PCP 09/26/22 10/06/23 Airam Hodges PA-C 500 [place], [place] 667475 Physician Cookie Breaker Surgery 07/19/23 Zain Quintana MD 500 [place], [place] 315005 Assigned Surgical Provider 10/07/23 Latricia Pettit PA-C [address] [place] [address] 323855 Assigned Gastroenterology Provider 10/15/23 documented as of this encounter
--- OUTSIDE RECORDS SUMMARY | 2023-10-25 14:17 | XMS_ITS | Encounter Summary ---
Author Name Unknown Organization [place] Address [address] [facility] [place] [address] Care Team Providers Care Transit Operator Name Role Phone Alfonso Tang Primary Care Provider Unavailabl e Monty Musa MD Primary Care Provider [phone] Alfonso Tang Unavailable Unavailable Dayanara Bee MD Unavailable [phone] Min Lange MD Unavailable Unavailable BendMarlo molina MD Unavailable [phone] Mel Buckley RN Unavailable [phone] Douglas Cadet MD Unavailable [phone] Rosalba Pendleton APRN BAGGAGE PORTER Unavaila ble Rosalba Pendleton APRN BAGGAGE PORTER Unavaila ble Douglas Cadet MD Unavailable [phone] Marlo Madsen MD Unavailable [phone] Abby Vasquez MD Unavailable Abby Vasquez MD Unavailable Airam Hodges PA-C Unavailable [phone] Zain Quintana MD Unavailable [phone] Latricia Pettit PA-C Unavailable Encounter Details Date Type Department Care Team (Late st Contact Info) Description 04/02/2015 MyC Medical Advice [facility] Physicians Heart [facility] 4th Floor, Clinic 4B [facility] 88 [address] [place] [address] Marlo Madsen MD 420 [facility] 508 [place], [place] 397265 Social History Tobacco Use Types Packs/Day Years Used Date Smoking Tobacco: Never Smokeless Tobacco: Never Alcohol Use Standard Drinks/Week Comments No 0 (1 standard drink = 0.6 oz pur e alcohol) Sex and Gender Information Value Date Recorded Sex Assigned at Female 10/31/2021 7:59 AM LABORATORY EQUIPMENT CLEANER Gender Identity Female 10/31/2021 7:59 AM LABORATORY EQUIPMENT CLEANER Sexual Orientation Straight 10/31/2021 7: 59 AM LABORATORY EQUIPMENT CLEANER documented as of this encounter Plan of Treatment Upcoming Encounters Date Type Department Care Team (Late st Contact Info) Description 10/26/2023 1:00 PM LABORATORY EQUIPMENT CLEANER Virtual Visit [facility] Gastroenterology Clinic [address] [phone] Latricia Pettit PA-C [address] [place] [address] 10/28/2023 10:50 AM LABORATORY EQUIPMENT CLEANER Therapy Visit [address] 343177 Zain Quintana MD [address] [place] [address] [place] [address] [place] [address] 135737 11/04/2023 10:50 AM LABORATORY EQUIPMENT CLEANER Therapy Visit [address] 020087 Zain Quintana MD [address] [place] [address] Lainey Simon, PT [address] [place] [address] 11/17/2023 11:00 AM LABORATORY EQUIPMENT CLEANER Therapy Visit [address] [address] Lainey Simon, PT [address] [place] [address] 46[address] 11/24/2023 10:40 AM CDT Office Visit [facility] Gastroenterology Clinic [address] [phone] Abby Vasquez MD [address] [place] [address] 9[address] 11/24/2023 1:30 PM CDT Therapy Visit [address] [address] Lainey Simon, PT [address] [place] [address] 0[address] 12/01/2023 10:20 AM CDT Therapy Visit [address] [address] Lainey Simon, PT [address] [place] [address] 480[address] 12/08/2023 10:20 AM CDT Therapy Visit [address] [address] Lainey Simon, PT [address] [place] [address] 01/13/2024 10:00 AM CDT Virtual Visit [facility] Neurology Clinic [address] 3rd [place] [phone] Rosalba Pendleton, ALTERNATIVE EDUCATION TEACHER BAGGAGE PORTER [address] [place] [address] [id number] [place] [address] 01/20/2024 8:00 PM CDT Therapy Visit [facility] Sleep [facility] [address] [phone] 03/14/2024 10:30 AM CDT Office Visit [facility] Sleep [facility] [address] [place] [address] [phone] Abhishek Acevedo PA-C [address] [address] 03/21/2024 11:30 AM CDT Office Visit [facility] Colon [facility]al Surgery Clinic [address] 4th [place] [phone] Zain Quintana MD [address] [place] [address] 932665 documented as of this encounter Visit Diagnoses Not on filedocumented in this encounter Additional Health Concerns Infection Onset Date Last Indicated Resolved Time Rule Out COVID-19 04/03/2023 04/03/2023 04/04/2023 6:30 PM CDT documented as of this encounter Care Teams Transit Operator Relationship Specialty Start Date End Date Alfonso Tang PCP - General Family Practice 09/04/13 08/12/21 Monty Musa MD [facility] [address] [place] [address] PCP - General Family Medicine 08/13/21 Alfonso Tang Family Practice 08/13/21 Dayanara Bee MD [address] [address] Pediatrics 12/26/14 Min Lange MD [address] [address] Neurology 03/30/16 Marlo Madsen MD [address] [place] [address] 555195 Cardiology 10/27/16 Mel Buckley, RN Nurse Coordinator Physical Medicine and Rehabilitation 12/02/16 Douglas Cadet MD 500 [place] [address] Gastroenterology 08/13/21 Rosalba Pendleton APRN BAGGAGE PORTER [address] [place] [address] Nurse Practitioner Neurology 09/05/21 Rosalba Pendleton APRN BAGGAGE PORTER [address] [place] [address] Assigned Neuroscience Provider 11/09/21 Douglas Cadet MD 500 [place] [address] Assigned Gastroenterology Provider 03/14/22 09/03/23 Marlo Madsen MD [address] [place] [address] Assigned Heart and Vascular Provider 03/14/22 Abby Vasquez MD [address] [place] [address] Gastroenterology 07/16/22 Abby Vasquez MD [address] [place] [address] Assigned PCP 09/26/22 10/06/23 Airam Hodges PA-C 500 [place] [address] Physician Sofa Cover Inspector Surgery 07/19/23 Zain Quintana MD [address] [place] [address] Assigned Surgical Provider 10/07/23 Latricia Pettit PA-C [address] [place] [address] Assigned Gastroenterology Provider 10/15/23 documented as of this encounter
--- OUTSIDE RECORDS SUMMARY | 2023-10-25 14:17 | XMS_ITS | Encounter Summary ---
Author Name Unknown Organization [place] Address [address] [facility] [place] [address] Care Team Providers Care Teller Head Name Role Phone Monty Musa MD Primary Care Provider [phone] Alfonso Tang Unavailable Unavailable Dayanara Bee MD Unavailable [phone] Min Lange MD Unavailable Unavailable Marlo Madsen MD Unavailable [phone] Mel Buckley RN Unavailable [phone] Douglas Cadet MD Unavailable [phone] Rosalba Pendleton APRN AIRLINE PILOT Unavaila ble Rosalba Pendleton APRN AIRLINE PILOT Unavaila ble Douglas Cadet MD Unavailable [phone] Marlo Madsen MD Unavailable [phone] Abby Vasquez MD Unavailable Abby Vasquez MD Unavailable Airam Hodges PA-C Unavailable [phone] Zain Quintana MD Unavailable [phone] Latricia Pettit PA-C Unavailable [phone] Encounter Details Date Type Department Care Team (Late st Contact Info) Description 06/01/2022 MyC Medical Advice [facility] [address] [phone] Andie Raya Social History Tobacco Use Types Packs/Day Years Used Date Smoking Tobacco: Never Smokeless Tobacco: Never Alcohol Use Standard Drinks/Week Comments No 0 (1 standard drink = 0.6 oz pur e alcohol) PHQ-2 Answer Date Recorded PHQ-2 Score 3 05/28/2022 Sex and Gender Information Value Date Recorded Sex Assigned at Female 10/31/2021 7:59 AM MANAGER MARKET DEVELOPMENT Gender Identity Female 10/31/2021 7:59 AM MANAGER MARKET DEVELOPMENT Sexual Orientation Straight 10/31/2021 7: 59 AM MANAGER MARKET DEVELOPMENT COVID-19 Exposure Response Date Recorded In the last 10 days, have yo u been in contact with someone who was confirmed or suspected to have Coronavirus/COVID-19? No / Unsure 05/04/2022 7:58 AM CDT documented as of this encounter Plan of Treatment Upcoming Encounters Date Type Department Care Team (Late st Contact Info) Description 10/26/2023 1:00 PM MANAGER MARKET DEVELOPMENT Virtual Visit [facility] [address] 4th [place] [phone] Latricia Pettit PA-C [address] [place] [address] 10/28/2023 10:50 AM MANAGER MARKET DEVELOPMENT Therapy Visit [address] [address] Zain Quintana MD [address] [place] [address] 679315 Lainey Simon PT [address] [place] [address] 11/04/2023 10:50 AM MANAGER MARKET DEVELOPMENT Therapy Visit [address] [address] Zain Quintana MD [address] [place] [address] Lainey Simon, PT [address] [place] [address] 11/17/2023 11:00 AM MANAGER MARKET DEVELOPMENT Therapy Visit [address] [address] Lainey Simon, PT [address] [place] [address] 11/24/2023 10:40 AM CDT Office Visit [facility] [address] 4th [place] [phone] Abby Vasquez MD [address] [place] [address] 11/24/2023 1:30 PM CDT Therapy Visit [address] [address] Lainey Simon, PT [address] [place] [address] 14386 12/01/2023 10:20 AM CDT Therapy Visit [address] [address] Lainey Simon, PT [address] [place] [address] 12/08/2023 10:20 AM CDT Therapy Visit [address] [address] [place] [address] [place] [address] 01/13/2024 10:00 AM CDT Virtual Visit [facility] [address] 3rd [place] [phone] Rosalba Pendleton, MAXIMILIANO [address] [id number] [address] 01/20/2024 8:00 PM CDT Therapy Visit [facility] [address] [phone] 03/14/2024 10:30 AM CDT Office Visit [address] [phone] Abhishek Acevedo PA-C [address] [phone] 03/21/2024 11:30 AM CDT Office Visit [facility] [address] 4th [place] [phone] Zain Quintana MD [address] [place] [address]72 documented as of this encounter Visit Diagnoses Not on filedocumented in this encounter Additional Health Concerns Infection Onset Date Last Indicated Resolved Time Rule Out COVID-19 04/03/2023 04/03/2023 04/04/2023 6:30 PM CDT Assessment Noted Time PHQ-9 Depression Total Score: 11 05/28/2 022 11:52 AM CDT documented as of this encounter Care Teams Teller Head Relationship Specialty Start Date End Date Monty Musa MD [facility] [address] [place] [address] PCP - General Family Medicine 08/13/21 Alfonso Tang [facility] [address] [place] [address] [facility] 08/13/21 Dayanara Bee MD 420 [facility] 75 [place], [place] 498855 Pediatrics 12/26/14 Min Lange MD 420 [facility] 75 [place] [address] Neurology 03/30/16 Marlo Madsen MD 420 [facility] 508 [place] [address] Cardiology 10/27/16 eMl Buckley, DIAZ Nurse Coordinator Physical Medicine and Rehabilitation 12/02/16 Douglas Cadet MD 500 [place], [place] 964615 MD Gastroenterology 08/13/21 Rosalba Pendleton APRN AIRLINE PILOT [address] [place], [place] [address]J [place], [place] 7[address] Nurse Practitioner Neurology 09/05/21 Rosalba Pendleton APRN AIRLINE PILOT [address] [place], [place] [address] [place], [place] 8[address]325 Assigned Neuroscience Provider 11/09/21 Douglas Cadet MD 500 [place] [address] Assigned Gastroenterology Provider 03/14/22 09/03/23 Marlo Madsen MD 420 [facility] 508 [place] [address] Assigned Heart and Vascular Provider 03/14/22 Abby Vasquez MD [address] [place] [address] Gastroenterology 07/16/22 Abby Vasquez MD [address] [place] [address] 387355 Assigned PCP 09/26/22 10/06/23 Airam Hodges PA-C 500 [place], [place] 652595 Physician Research Professor Surgery 07/19/23 Zain Quintana MD 500 [place], [place] 446505 Assigned Surgical Provider 10/07/23 Latricia Pettit PA-C [address] [place] [address] Assigned Gastroenterology Provider 10/15/23 documented as of this encounter
--- OUTSIDE RECORDS SUMMARY | 2023-10-25 14:17 | XMS_ITS | Encounter Summary ---
Author Name Unknown Organization [place] Address [address] [facility] [address] Care Team Providers Care Ocean Lifeguard Specialist Name Role Phone Alfonso Tang Primary Care Provider Unavailabl e Monty Musa MD Primary Care Provider [phone] Alfonso Tang Unavailable Unavailable Dayanara Bee MD Unavailable [phone] Min Lange MD Unavailable Unavailable BendMarlo molina MD Unavailable [phone] Mel Buckley RN Unavailable [phone] Douglas Cadet MD Unavailable [phone] Rosalba Pendleton APRN AUXILIARY PLANT OPERATOR Unavaila ble Rosalba Pendleton APRN AUXILIARY PLANT OPERATOR Unavaila ble Douglas Cadet MD Unavailable [phone] Marlo Madsen MD Unavailable [phone] Abby Vasquez MD Unavailable Abby Vasquez MD Unavailable Airam Hodges PA-C Unavailable [phone] Zain Quintana MD Unavailable [phone] Latricia Pettit PA-C Unavailable Encounter Details [...] Sex Assigned at Female 10/31/2021 7:59 AM CLINICAL RESEARCH MANAGER Gender Identity Female 10/31/2021 7:59 AM CLINICAL RESEARCH MANAGER Sexual Orientation Straight 10/31/2021 7: 59 AM CLINICAL RESEARCH MANAGER documented as of this encounter Plan of Treatment Upcoming Encounters Date Type Department Care Team (Late st Contact Info) Description 10/26/2023 1:00 PM CLINICAL RESEARCH MANAGER Virtual Visit [facility] [address] [phone] Latricia Pettit PA-C [address] [place] [address] 10/28/2023 10:50 AM CLINICAL RESEARCH MANAGER Therapy Visit [address] [address] Zain Quintana MD [address] [place] [address] 664625 Lainey Simon, PT [address] [place] [address] 11/04/2023 10:50 AM CLINICAL RESEARCH MANAGER Therapy Visit [address] [address] Zain Quintana MD [address] [place] [address] 591055 Lainey Simon PT [address] [place] [address] 477957 11/17/2023 11:00 AM CLINICAL RESEARCH MANAGER Therapy Visit [address] [address] Lainey Simon, PT [address] [place] [address] 11/24/2023 10:40 AM CDT Office Visit [facility] [address] 4th [place] [address] Abby Vasquez MD [address] [place] [address] 965035 11/24/2023 1:30 PM CDT Therapy Visit [address] [address] Lainey Simon, PT [address] [place] [address] 12/01/2023 10:20 AM CDT Therapy Visit [address] [address] Lainey Simon, PT [address] [place] [address] 12/08/2023 10:20 AM CDT Therapy Visit [address] [address] Lainey Simon, PT [address] [place] [address] 01/13/2024 10:00 AM CDT Virtual Visit [facility] [address] 3rd [place] [address] Rosalba Pendleton APRN AUXILIARY PLANT OPERATOR [address] [place] [address] [id number] [address] 01/20/2024 8:00 PM CDT Therapy Visit [facility] [address] [phone] 03/14/2024 10:30 AM CDT Office Visit [facility] [address] [phone] Abhishek Acevedo PA-C [address] [phone] 03/21/2024 11:30 AM CDT Office Visit [facility] [address] 4th [place] [phone] Zain Quintana MD [address] [place] [address] documented as of this encounter Visit Diagnoses Not on filedocumented in this encounter Additional Health Concerns Infection Onset Date Last Indicated Resolved Time Rule Out COVID-19 04/03/2023 04/03/2023 04/04/2023 6:30 PM CDT documented as of this encounter Care Teams Ocean Lifeguard Specialist Relationship Specialty Start Date End Date Alfonso Tang PCP - General Family Practice 09/04/13 08/12/21 Monty Musa MD [facility] [address] [place] [address] PCP - General Family Medicine 08/13/21 Alfonso Tang Family Practice 08/13/21 Dayanara Bee MD [address] [place] [address] 75 [place] [address] Pediatrics 12/26/14 Min Lange MD 420 [facility] 75 [place] [address] Neurology 03/30/16 Marlo Madsen MD [address] [address] Cardiology 10/27/16 Mel Buckley, RN Nurse Coordinator Physical Medicine and Rehabilitation 12/02/16 Douglas Cadet MD [address] [place] [address] Gastroenterology 08/13/21 Rosalba Pendleton APRN AUXILIARY PLANT OPERATOR [address] [place] [address] Nurse Practitioner Neurology 09/05/21 Rosalba Pendleton APRN AUXILIARY PLANT OPERATOR [address] [place] [address]683 Assigned Neuroscience Provider 11/09/21 Douglas Cadet MD [address] [place] [address] Assigned Gastroenterology Provider 03/14/22 09/03/23 Marlo Madsen MD [address] [place] [address] Assigned Heart and Vascular Provider 03/14/22 Abby Vasquez MD [address] [place] [address] Gastroenterology 07/16/22 Abby Vasquez MD 9 [place] [address] Assigned PCP 09/26/22 10/06/23 Airam Hodges PA-C 500 [place], [place] 615205 Physician Drug Safety Assistant Surgery 07/19/23 Zain Quintana MD 500 [place], [place] 387035 Assigned Surgical Provider 10/07/23 Latricia Pettit PA-C [address] [place] [address] 059565 Assigned Gastroenterology Provider 10/15/23 documented as of this encounter
--- OUTSIDE RECORDS SUMMARY | 2023-10-25 14:17 | XMS_ITS | Encounter Summary ---
Author Name Unknown Organization [place] Address [address] [place] [address] Care Team Providers Care Belly Packer Name Role Phone Monty Musa MD Primary Care Provider [phone] Alfonso Tang Unavailable Unavailable Dayanara Bee MD Unavailable [phone] Min Lange MD Unavailable Unavailable Marlo Madsen MD Unavailable [phone] Mel Buckley RN Unavailable [phone] Douglas Cadet MD Unavailable [phone] Rosalba Pendleton APRN MEDICAL CORPS OFFICER Unavaila ble Rosalba Pendleton APRN MEDICAL [employer]PS OFFICER Unavaila ble Douglas Cadet MD Unavailable [phone] Marlo Madsen MD Unavailable [phone] Abby Vasquez MD Unavailable Abby Vasquez MD Unavailable Airam Hodges PA-C Unavailable [phone] Zain Quintana MD Unavailable [phone] Latricia Pettit PA-C Unavailable Encounter Details Date Type Department Care Team (Late st Contact Info) Description 02/20/2022 MyC Medical Advice [facility] [address] [phone] Cindy Vines CMA Social History Tobacco Use Types Packs/Day Years Used Date Smoking Tobacco: Never Smokeless Tobacco: Never Alcohol Use Standard Drinks/Week Comments No 0 (1 standard drink = 0.6 oz pur e alcohol) PHQ-2 Answer Date Recorded PHQ-2 Score 4 01/14/2022 Sex and Gender Information Value Date Recorded Sex Assigned at Female 10/31/2021 7:59 AM AGILE PROJECT MANAGER Gender Identity Female 10/31/2021 7:59 AM AGILE PROJECT MANAGER Sexual Orientation Straight 10/31/2021 7: 59 AM AGILE PROJECT MANAGER documented as of this encounter Plan of Treatment Upcoming Encounters Date Type Department Care Team (Late st Contact Info) Description 10/26/2023 1:00 PM AGILE PROJECT MANAGER Virtual Visit [facility] [address] [phone] Latricia Pettit PA-C [address] [place] [address] 10/28/2023 10:50 AM AGILE PROJECT MANAGER Therapy Visit [address] [address] Zain Quintana MD [address] [place] [address] Lainey Simon PT [address] [place] [address] 11/04/2023 10:50 AM AGILE PROJECT MANAGER Therapy Visit [address] [address] Zain Quintana MD [address] [place] [address] Lainey Simon, PT [address] [place] [address] 11/17/2023 11:00 AM AGILE PROJECT MANAGER Therapy Visit [address] [address] Lainey Simon, PT [address] [place] [address] 11/24/2023 10:40 AM CDT Office Visit [facility] [address] [phone] Abby Vasquez MD [address] [place] [address] 11/24/2023 1:30 PM CDT Therapy Visit [address] [address] Lainey Simon, PT [address] [place] [address] 12/01/2023 10:20 AM CDT Therapy Visit [address] [address] Lainey Simon, PT [address] [place] [address] 12/08/2023 10:20 AM CDT Therapy Visit [address] [address] Lainey Simon, PT [address] [place] [address] 01/13/2024 10:00 AM CDT Virtual Visit [facility] [address] 3rd [place] [phone] Rosalba Pendleton APRN MEDICAL [employer]PS OFFICER [address] [place] [address] [id number] [address] 01/20/2024 8:00 PM CDT Therapy Visit [facility] [address] [place] [address] [phone] 03/14/2024 10:30 AM CDT Office Visit [address] [phone] Abhishek Acevedo PA-C [address] [facility] 103 [place], [place] [phone] 03/21/2024 11:30 AM CDT Office Visit [facility] [address] 4th [place] [phone] Zain Quintana MD [address] [place] [address] 406745 documented as of this encounter Visit Diagnoses Not on filedocumented in this encounter Additional Health Concerns Infection Onset Date Last Indicated Resolved Time Rule Out COVID-19 04/03/2023 04/03/2023 04/04/2023 6:30 PM CDT Assessment Noted Time PHQ-9 Depression Total Score: 17 022 7:02 AM CDT documented as of this encounter Care Teams Belly Packer Relationship Specialty Start Date End Date Monty Musa MD [facility] [address] [place] [address] PCP - General Family Medicine 08/13/21 Alfonso Tang [facility] [address] [place] [address] [facility] 08/13/21 Dayanara Bee MD [address] 0[address] Pediatrics 12/26/14 Min Lange MD [address] [address] Neurology 03/30/16 Marlo Madsen MD [address] [place] [address] 642705 Cardiology 10/27/16 Mel Buckley, RN Nurse Coordinator Physical Medicine and Rehabilitation 12/02/16 Douglas Cadet MD 500 [place] [address] Gastroenterology 08/13/21 Rosalba Pendleton APRN MEDICAL CORPS OFFICER [address] [place] [address] [id number] Nurse Practitioner Neurology 09/05/21 Rosalba Pendleton APRN [employer]ICAL [employer] OFFICER [address] [place] [address] Assigned Neuroscience Provider 11/09/21 Douglas Cadet MD 500 [place] [address] Assigned Gastroenterology Provider 03/14/22 09/03/23 Marlo Madsen MD [address] [place] [address] 340615 Assigned Heart and Vascular Provider 03/14/22 Abby Vasquez MD 9 [place], [place] 721635 Gastroenterology 07/16/22 Abby Vasquez MD [address] [place] [address] 798495 Assigned PCP 09/26/22 10/06/23 Airam Hodges PA-C 500 [place], [place] 171985 Physician Solar Photovoltaic Electrician Surgery 07/19/23 Zain Quintana MD 500 [place], [place] 067825 Assigned Surgical Provider 10/07/23 Latricia Pettit PA-C [address] [place] [address] 124715 Assigned Gastroenterology Provider 10/15/23 documented as of this encounter
--- OUTSIDE RECORDS SUMMARY | 2023-10-25 14:17 | XMS_ITS | Encounter Summary ---
Author Name Unknown Organization [place] Address [address] [place] [address] Care Team Providers Care Technical Support Representative Name Role Phone Alfonso Tang Primary Care Provider Unavailabl e Monty Musa MD Primary Care Provider [phone] Alfonso Tang Unavailable Unavailable Dayanara Bee MD Unavailable [phone] Min Lange MD Unavailable Unavailable BendMarlo molina MD Unavailable [phone] Mel Buckley RN Unavailable [phone] Douglas Cadet MD Unavailable [phone] Rosalba Pendleton APRN PROCESS DESCRIPTION WRITER Unavaila ble Rosalba Pendleton APRN PROCESS DESCRIPTION WRITER Unavaila ble Douglas Cadet MD Unavailable [phone] Marlo Madsen MD Unavailable [phone] Abby Vasquez MD Unavailable Abby Vasquez MD Unavailable Airam Hodges PA-C Unavailable [phone] Zain Quintana MD Unavailable [phone] Latricia Pettit PA-C Unavailable [phone] Encounter Details Date Type Department Care Team (Late st Contact Info) Description 07/30/2015 [facility] - 1E [facility] 1st Floor, Clinic 1E [address] [place] [address] Ama Bustamante RN Social History Tobacco Use Types Packs/Day Years Used Date Smoking Tobacco: Never Smokeless Tobacco: Never Alcohol Use Standard Drinks/Week Comments No 0 (1 standard drink = 0.6 oz pur e alcohol) Sex and Gender Information Value Date Recorded Sex Assigned at Female 10/31/2021 7:59 AM WEB PRODUCTION ARTIST Gender Identity Female 10/31/2021 7:59 AM WEB PRODUCTION ARTIST Sexual Orientation Straight 10/31/2021 7: 59 AM WEB PRODUCTION ARTIST documented as of this encounter Plan of Treatment Upcoming Encounters Date Type Department Care Team (Late st Contact Info) Description 10/26/2023 1:00 PM WEB PRODUCTION ARTIST Virtual Visit [facility] [address]th [place] [phone] Latricia Pettit PA-C [address] [place] [address] 10/28/2023 10:50 AM WEB PRODUCTION ARTIST Therapy Visit [address] [address] Zain Quintana MD [address] [place] [address] 544825 Lainey Simon, PT [address] [place] [address] 210397 11/04/2023 10:50 AM WEB PRODUCTION ARTIST Therapy Visit [address] [address] Zain Quintana MD [address] [place] [address] 839145 Lainey Simon, PT [address] [place] [address] 11/17/2023 11:00 AM WEB PRODUCTION ARTIST Therapy Visit [address] [address] Lainey Simon, PT [address] [place] [address]31 11/24/2023 10:40 AM CDT Office Visit [facility] [address] [phone] Abby Vasquez MD [address] [place] [address] 11/24/2023 1:30 PM CDT Therapy Visit [address] [address] Lainey Simon, PT [address] [place] [address] 79[address] 12/01/2023 10:20 AM CDT Therapy Visit [address] [address] Lainey Simon, PT [address] [place] [address] 10324 12/08/2023 10:20 AM CDT Therapy Visit [address] [address] Lainey Simon, PT [address] [place] [address] 01/13/2024 10:00 AM CDT Virtual Visit [facility] [address] 3rd [place] [phone] Rosalba Pendleton APRN PROCESS DESCRIPTION WRITER [address] [place] [address] [id number] [place] [address] 01/20/2024 8:00 PM CDT Therapy Visit [facility] [address] [phone] 03/14/2024 10:30 AM CDT Office Visit [facility] [address] [place] [address] [phone] Abhishek Acevedo PA-C 6350 [facility] 103 [place], [place] [phone] 03/21/2024 11:30 AM CDT Office Visit [facility] [address] 4th [place] [phone] Zain Quintana MD [address] [place] [address] 8[address]07 documented as of this encounter Visit Diagnoses Not on filedocumented in this encounter Additional Health Concerns Infection Onset Date Last Indicated Resolved Time Rule Out COVID-19 04/03/2023 04/03/2023 04/04/2023 6:30 PM CDT documented as of this encounter Care Teams Technical Support Representative Relationship Specialty Start Date End Date Alfonso Tang PCP - General Family Practice 09/04/13 08/12/21 Monty Musa MD [facility] [address] [place] [address] PCP - General Family Medicine 08/13/21 Alfonso Tang Family Practice 08/13/21 Dayanara Bee MD 420 [facility] 75 [place], [place] 0[address]355 Pediatrics 12/26/14 Min Lange MD [address] [address] Neurology 03/30/16 Marlo Madsen MD [address] [place] [address] 892065 Cardiology 10/27/16 Mel Buckley, RN Nurse Coordinator Physical Medicine and Rehabilitation 12/02/16 Douglas Cadet MD 500 [place], [place] 019295 Gastroenterology 08/13/21 Rosalba Pendleton APRN PROCESS DESCRIPTION WRITER [address] [place] [address] [phone] Nurse Practitioner Neurology 09/05/21 Rosalba Pendleton APRN PROCESS DESCRIPTION WRITER [address] [place] [address] 967755 Assigned Neuroscience Provider 11/09/21 Douglas Cadet MD 500 [place], [place] 120005 Assigned Gastroenterology Provider 03/14/22 09/03/23 Marlo Madsen MD [address] 853155 Assigned Heart and Vascular Provider 03/14/22 Abby Vasquez MD 909 [place], [place] 293475 Gastroenterology 07/16/22 Abby Vasquez MD [address] [place] [address] 388285 Assigned PCP 09/26/22 10/06/23 Airam Hodges PA-C 500 [place], [place] 994245 Physician Prison Psychiatrist Surgery 07/19/23 Zain Quintana MD 500 [place], [place] 530585 Assigned Surgical Provider 10/07/23 Latricia Pettit PA-C [address] [place] [address] 735765 Assigned Gastroenterology Provider 10/15/23 documented as of this encounter
--- OUTSIDE RECORDS SUMMARY | 2023-10-25 14:17 | XMS_ITS | Encounter Summary ---
Author Name Unknown Organization [place] Address [address] [facility] [place] [address] Care Team Providers Care Non Licensed Operator Name Role Phone Monty Musa MD Primary Care Provider [phone] Alfonso Tang Unavailable Unavailable Dayanara Bee MD Unavailable [phone] Min Lange MD Unavailable Unavailable Marlo Madsen MD Unavailable [phone] Mel Buckley RN Unavailable [phone] Douglas Cadet MD Unavailable [phone] Rosalba Pendleton APRN RESEARCH PHARMACIST Unavaila ble Rosalba Pendleton APRN RESEARCH PHARMACIST Unavaila ble Douglas Cadet MD Unavailable [phone] Marlo Madsen MD Unavailable [phone] Abby Vasquez MD Unavailable Abby Vasquez MD Unavailable Airam Hodges PA-C Unavailable [phone] Zain Quintana MD Unavailable [phone] Latricia Pettit PA-C Unavailable [phone] Encounter Details Date Type Department Care Team (Late st Contact Info) Description 05/29/2022 MyC Medical Advice [facility] [address] [phone] Andie Raya Social History Tobacco Use Types Packs/Day Years Used Date Smoking Tobacco: Never Smokeless Tobacco: Never Alcohol Use Standard Drinks/Week Comments No 0 (1 standard drink = 0.6 oz pur e alcohol) PHQ-2 Answer Date Recorded PHQ-2 Score 3 05/28/2022 Sex and Gender Information Value Date Recorded Sex Assigned at Female 10/31/2021 7:59 AM RN PATIENT CARE Gender Identity Female 10/31/2021 7:59 AM RN PATIENT CARE Sexual Orientation Straight 10/31/2021 7: 59 AM RN PATIENT CARE COVID-19 Exposure Response Date Recorded In the last 10 days, have yo u been in contact with someone who was confirmed or suspected to have Coronavirus/COVID-19? No / Unsure 05/04/2022 7:58 AM CDT documented as of this encounter Plan of Treatment Upcoming Encounters Date Type Department Care Team (Late st Contact Info) Description 10/26/2023 1:00 PM RN PATIENT CARE Virtual Visit [facility] Gastroenterology Clinic [address] 4th [place] [phone] Latricia Pettit PA-C [address] [place] [address] 10/28/2023 10:50 AM RN PATIENT CARE Therapy Visit [address] [address] Zain Quintana MD [address] [place] [address] [phone] Lainey Simon PT [address] [place] [address] 11/04/2023 10:50 AM RN PATIENT CARE Therapy Visit [address] [address] Zain Quintana MD [address] [place] [address] Lainey Simon, PT [address] [place] [address] 11/17/2023 11:00 AM RN PATIENT CARE Therapy Visit [address] [address] Lainey Simon, PT [address] [place] [address] 11/24/2023 10:40 AM CDT Office Visit [facility] Gastroenterology [facility] [address] 4th [place] [phone] Abby Vasquez MD [address] [place] [address] 11/24/2023 1:30 PM CDT Therapy Visit [address] [address] Lainey Simon, PT [address] [place] [address] 12/01/2023 10:20 AM CDT Therapy Visit [address] [address] Lainey Simon, PT [address] [place] [address] 12/08/2023 10:20 AM CDT Therapy Visit [address] [address] [place] [address] [place] [address] 01/13/2024 10:00 AM CDT Virtual Visit [facility] Neurology Clinic [address] 3rd [place] [phone] Rosalba Pendleton, MAXIMILIANO [address] [id number] [address] 01/20/2024 8:00 PM CDT Therapy Visit [facility] Sleep [address] [place] [phone] 03/14/2024 10:30 AM CDT Office Visit [address] [phone] Abhishek Acevedo PA-C [address] [phone] 03/21/2024 11:30 AM CDT Office Visit [facility] Colon [facility]al Surgery Clinic [address] 4th [place] [phone] Zain Quintana MD [address] [place] [address] documented as of this encounter Visit Diagnoses Not on filedocumented in this encounter Additional Health Concerns Infection Onset Date Last Indicated Resolved Time Rule Out COVID-19 04/03/2023 04/03/2023 04/04/2023 6:30 PM CDT Assessment Noted Time PHQ-9 Depression Total Score: 11 05/28/2 022 11:52 AM CDT documented as of this encounter Care Teams Non Licensed Operator Relationship Specialty Start Date End Date Monty Musa MD [facility] [address] [place] [address] PCP - General Family Medicine 08/13/21 Alfonso Tang [facility] [address] [place] [address] [facility] 08/13/21 Dayanara Bee MD [address] [facility] 75 [place], [place] 251285 Pediatrics 12/26/14 Min Lange MD [address] [facility] 75 [place] [address] Neurology 03/30/16 Marlo Madsen MD 420 [facility] 508 [place] [address] Cardiology 10/27/16 Mel Buckley, DIAZ Nurse Coordinator Physical Medicine and Rehabilitation 12/02/16 Douglas Cadet MD 500 [place], [place] 556735 MD Gastroenterology 08/13/21 Rosalba Pendleton APRN RESEARCH PHARMACIST [address] [place], [place] [address]J [place], [place] [address] Nurse Practitioner Neurology 09/05/21 Rosalba Pendleton APRN RESEARCH PHARMACIST [address] [place], [place] [address] [place], [place] [address] Assigned Neuroscience Provider 11/09/21 Douglas Cadet MD 500 [place] [address] Assigned Gastroenterology Provider 03/14/22 09/03/23 Marlo Madsen MD 420 [facility] 508 [place] [address] Assigned Heart and Vascular Provider 03/14/22 Abby Vasquez MD [address] [place] [address] Gastroenterology 07/16/22 Abby Vasquez MD [address] [place] [address] 429355 Assigned PCP 09/26/22 10/06/23 Airam Hodges PA-C 500 [place], [place] 529145 Physician Testboard Operator Surgery 07/19/23 Zain Quintana MD 500 [place], [place] 420535 Assigned Surgical Provider 10/07/23 Latricia Pettit PA-C [address] [place] [address] Assigned Gastroenterology Provider 10/15/23 documented as of this encounter
--- OUTSIDE RECORDS SUMMARY | 2023-10-25 14:17 | XMS_ITS | Encounter Summary ---
Author Name Unknown Organization [place] Address [address] [facility] [place] [address] Care Team Providers Care Fertilizer Processing Supervisor Name Role Phone Monty Musa MD Primary Care Provider [phone] Alfonso Tang Unavailable Unavailable Dayanara Bee MD Unavailable [phone] Min Lange MD Unavailable Unavailable Marlo Madsen MD Unavailable [phone] Mel Buckley RN Unavailable [phone] Douglas Cadet MD Unavailable [phone] Rosalba Pendleton APRN CIVIL ENGINEERING DESIGNER Unavaila ble Rosalba Pendleton APRN CIVIL ENGINEERING DESIGNER Unavaila ble Douglas Cadet MD Unavailable [phone] Marlo Madsen MD Unavailable [phone] Abby Vasquez MD Unavailable Abby Vasquez MD Unavailable Airam Hodges PA-C Unavailable [phone] Zain Quintana MD Unavailable [phone] Latricia Pettit PA-C Unavailable Encounter Details Date Type Department Care Team (Late Contact Info) Description 03/17/2022 MyC Medical Advice [facility] Heart Clinic [address] [phone] Virginia Rendon, RN [address] [place] [address] [phone] Social History Tobacco Use Types Packs/Day Years Used Date Smoking Tobacco: Never Smokeless Tobacco: Never Alcohol Use Standard Drinks/Week Comments No 0 (1 standard drink = 0.6 oz pur e alcohol) PHQ-2 Answer Date Recorded PHQ-2 Score 4 01/14/2022 Sex and Gender Information Value Date Recorded Sex Assigned at Female 10/31/2021 7:59 AM PATIENT MANAGER Gender Identity Female 10/31/2021 7:59 AM PATIENT MANAGER Sexual Orientation Straight 10/31/2021 7: 59 AM PATIENT MANAGER COVID-19 Exposure Response Date Recorded In the last 10 days, have yo u been in contact with someone who was confirmed or suspected to have Coronavirus/COVID-19? No / Unsure 03/18/2022 8:57 AM CDT documented as of this encounter Plan of Treatment Upcoming Encounters Date Type Department Care Team (Late Contact Info) Description 10/26/2023 1:00 PM PATIENT MANAGER Virtual Visit [facility] Gastroenterology Clinic [address] 4th [place] [phone] Latricia Pettit PA-C [address] [place] [address] 757355 10/28/2023 10:50 AM PATIENT MANAGER Therapy Visit [facility] Rehabilitation Services [facility] [address] [facility] [address] [place], [place] 0[address]207 Zain Quintana MD [address] [place] [address] 454735 [place] [address] [place], [place] 200967 11/04/2023 10:50 AM PATIENT MANAGER Therapy Visit [address] [address] Zain Quintana MD [address] [place] [address] Lainey Simon, PT [address] [place] [address] 11/17/2023 11:00 AM PATIENT MANAGER Therapy Visit [address] [address] Lainey Simon, PT [address] [place] [address] 11/24/2023 10:40 AM CDT Office Visit [facility] Gastroenterology Clinic [address] [phone] Abby Vasquez MD [address] [place] [address] 11/24/2023 1:30 PM CDT Therapy Visit [address] [address] Lainey Simon, PT [address] [place] [address] 12/01/2023 10:20 AM CDT Therapy Visit [address] [address] Lainey Simon, PT [address] [place] [address] 12/08/2023 10:20 AM CDT Therapy Visit [facility] Rehabilitation Services [facility] [address] [facility] 300 [place] [address] Alfred LaineyJAY lowry [address] [place] [address] 01/13/2024 10:00 AM CDT Virtual Visit [facility] Neurology [facility] [place] [address] [place] [address] 3rd [place] [phone] Rosalba Pendleton, MAXIMILIANO CIVIL ENGINEERING DESIGNER [address] [facility] [id number] [place], [place] 4137[address] 01/20/2024 8:00 PM CDT Therapy Visit [facility] Sleep [address] [phone] 03/14/2024 10:30 AM CDT Office Visit [facility] Sleep [address] [phone] Abhishek Acevedo PA-C [address] [id number] 03/21/2024 11:30 AM CDT Office Visit [facility] Colon and Rectal Surgery Clinic [address] 4th [place] [phone] Zain Quintana MD [address] [place] [address] documented as of this encounter Visit Diagnoses Not on filedocumented in this encounter Additional Health Concerns Infection Onset Date Last Indicated Resolved Time Rule Out COVID-19 04/03/2023 04/03/2023 04/04/2023 6:30 PM CDT Assessment Noted Time PHQ-9 Depression Total Score: 17 05 022 7:02 AM CDT documented as of this encounter Care Teams Fertilizer Processing Supervisor Relationship Specialty Start Date End Date Monty Musa MD [facility] [address] [place] [address] PCP - General Family Medicine 08/13/21 Alfonso Tang [facility] [address] [place] [address] Family Practice 08/13/21 Dayanara Bee MD 420 [facility] 75 [place], [place] 8[address] Pediatrics 12/26/14 Min Lange MD 420 [facility] 75 [place] [address] Neurology 03/30/16 Marlo Madsen MD 420 [facility] 508 [place], [place] 7[address] Cardiology 10/27/16 Mel Buckley, RN Nurse Coordinator Physical Medicine and Rehabilitation 12/02/16 Douglas Cadet MD [address] [place] [address] 914355 Gastroenterology 08/13/21 Rosalba Pendleton APRN CIVIL ENGINEERING DESIGNER [address] [place] [address] Nurse Practitioner Neurology 09/05/21 Rosalba Pendleton APRN CIVIL ENGINEERING DESIGNER [address] [place], [place] [address] Assigned Neuroscience Provider 11/09/21 Douglas Cadet MD [address] [place] [address] Assigned Gastroenterology Provider 03/14/22 09/03/23 Marlo Madsen MD [address] [place] [address] 508 [place] [address] Assigned Heart and Vascular Provider 03/14/22 Abby Vasquez MD [address] [place] [address] Gastroenterology 07/16/22 Abby Vasquez MD [address] [place] [address] Assigned PCP 09/26/22 10/06/23 Airam Hodges PA-C 500 [place] [address] Physician Press Washer Surgery 07/19/23 Zain Quintana MD [address] [place] [address]21 Assigned Surgical Provider 10/07/23 Latricia Pettit PA-C [address] [place] [address] Assigned Gastroenterology Provider 10/15/23 documented as of this encounter
--- OUTSIDE RECORDS SUMMARY | 2023-10-25 14:17 | XMS_ITS | Encounter Summary ---
Author Name Unknown Organization [place] Address [address] [facility] [place] [address] Care Team Providers Care Billboard Poster Name Role Phone Monty Musa MD Primary Care Provider [phone] Alfonso Tang Unavailable Unavailable Dayanara Bee MD Unavailable [phone] Min Lange MD Unavailable Unavailable Marlo Madsen MD Unavailable [phone] Mel Buckley RN Unavailable [phone] Douglas Cadet MD Unavailable [phone] Rosalba Pendleton APRN SHIPPING INSPECTOR Unavaila ble Rosalba Pendleton APRN SHIPPING INSPECTOR Unavaila ble Douglas Cadet MD Unavailable [phone] Marlo Madsen MD Unavailable [phone] Abby Vasquez MD Unavailable Abby Vasquez MD Unavailable Airam Hodges PA-C Unavailable [phone] Zain Quintana MD Unavailable [phone] Latricia Pettit PA-C Unavailable [phone] Encounter Details Date Type Department Care Team (Late st Contact Info) Description 09/07/2021 MyC Medical Advice Initial Department Andie Raya Social History Tobacco Use Types Packs/Day Years Used Date Smoking Tobacco: Never Assessed Sex and Gender Information Value Date Recorded Sex Assigned at Female 10/31/2021 7:59 AM BUSINESS PROGRAMMER Gender Identity Female 10/31/2021 7:59 AM BUSINESS PROGRAMMER Sexual Orientation Straight 10/31/2021 7: 59 AM BUSINESS PROGRAMMER COVID-19 Exposure Response Date Recorded In the last month, have you been in contact with someone who was confirmed or suspected to have Coronavirus / COVID-19? Unable to assess 08/13/2021 10:06 AM BUSINESS PROGRAMMER documented as of this encounter Plan of Treatment Upcoming Encounters Date Type Department Care Team (Late st Contact Info) Description 10/26/2023 1:00 PM BUSINESS PROGRAMMER Virtual Visit [facility] Gastroenterology Clinic [address] [phone] Latricia Pettit PA-C [address] [place] [address] 10/28/2023 10:50 AM BUSINESS PROGRAMMER Therapy Visit [address] 391997 Zain Quintana MD [address] [place] [address] Lainey Simon PT [address] [place] [address] 11/04/2023 10:50 AM BUSINESS PROGRAMMER Therapy Visit [address] [phone] Zain Quintana MD [address] [place] [address] Lainey Simon PT [address] [place] [address] 11/17/2023 11:00 AM BUSINESS PROGRAMMER Therapy Visit [address] [address] Lainey Simon, PT [address] [place] [address] 11/24/2023 10:40 AM CDT Office Visit [facility] Gastroenterology Clinic [address] [place] [phone] Abby Vasquez MD [address] [place] [address] 11/24/2023 1:30 PM CDT Therapy Visit [address] [address] Lainey Simon, PT [address] [place] [address] 12/01/2023 10:20 AM CDT Therapy Visit [address] [address] Lainey Simon, PT [address] [place] [address] 12/08/2023 10:20 AM CDT Therapy Visit [address] [address] Lainey Simon, PT [address] [place] [address] 01/13/2024 10:00 AM CDT Virtual Visit [facility] Neurology Clinic [place] [address] [place] [address] 3[address] [place] [phone] Rosalba Pendleton, MAXIMILIANO [facility] [address] [place] [address] [id number] [place] [address] 01/20/2024 8:00 PM CDT Therapy Visit [facility] Sleep [facility] [address] [phone] 03/14/2024 10:30 AM CDT Office Visit [facility] Sleep [facility] [address] [address] Abhishek Acevedo PA-C [address] [address] 03/21/2024 11:30 AM CDT Office Visit [facility]al Surgery [facility] [address] [place] [phone] Zain Quintana MD [address] [place] [address] 133555 documented as of this encounter Visit Diagnoses Not on filedocumented in this encounter Additional Health Concerns Infection Onset Date Last Indicated Resolved Time Rule Out COVID-19 04/03/2023 04/03/2023 04/04/2023 6:30 PM CDT documented as of this encounter Care Teams Billboard Poster Relationship Specialty Start Date End Date Monty Musa MD [facility] [address] [place] [address] PCP - General Family Medicine 08/13/21 Alfonso Tang [facility] [address] [place] [address] Family Practice 08/13/21 Dayanara Bee MD [address] [place] [address] 75 [place] [address] Pediatrics 12/26/14 Min Lange MD 420 [facility] 75 [place] [address] Neurology 03/30/16 Marlo Madsen MD [address] [address] Cardiology 10/27/16 Mle Buckley, RN Nurse Coordinator Physical Medicine and Rehabilitation 12/02/16 Douglas Cadet MD [address] [place] [address] Gastroenterology 08/13/21 Rosalba Pendleton APRN SHIPPING INSPECTOR [address] [place] [address] Nurse Practitioner Neurology 09/05/21 Rosalba Pendleton APRN SHIPPING INSPECTOR [address] [place] [address] Assigned Neuroscience Provider 11/09/21 Douglas Cadet MD [address] [place] [address] Assigned Gastroenterology Provider 03/14/22 09/03/23 Marlo Madsen MD [address] [place] [address] Assigned Heart and Vascular Provider 03/14/22 Abby Vasquez MD [address] [place] [address] Gastroenterology 07/16/22 Abby Vasquez MD 909 [place] [address] Assigned PCP 09/26/22 10/06/23 Airam Hodges PA-C 500 [place] [address] Physician Pulmonology Technician Surgery 07/19/23 Zain Quintana MD 500 [place], [place] 989085 Assigned Surgical Provider 10/07/23 Latricia Pettit PA-C [address] [place] [address] 584615 Assigned Gastroenterology Provider 10/15/23 documented as of this encounter
--- OUTSIDE RECORDS SUMMARY | 2023-10-25 14:17 | XMS_ITS | Encounter Summary ---
Author Name Unknown Organization [place] Address [address] [facility] [place] [address] Care Team Providers Care Hand Riveter Name Role Phone Alfonso Tang Primary Care Provider Unavailabl e Monty Musa MD Primary Care Provider [phone] Alfonso Tang Unavailable Unavailable Dayanara Bee MD Unavailable [phone] Min Lange MD Unavailable Unavailable BendMarlo molina MD Unavailable [phone] Mel Buckley RN Unavailable [phone] Douglas Cadet MD Unavailable [phone] Rosalba Pendleton APRN TANK FILLER Unavaila ble Rosalba Pendleton APRN TANK FILLER Unavaila ble Douglas Cadet MD Unavailable [phone] Marlo Madsen MD Unavailable [phone] Abby Vasquez MD Unavailable Abby Vasquez MD Unavailable Airam Hodges PA-C Unavailable [phone] Zain Quintana MD Unavailable [phone] Latricia Pettit PA-C Unavailable Encounter Details Date Type Department Care Team (Late st Contact Info) Description 12/12/2016 MyC Medical Advice [facility]ology [facility] [address] [phone] Chaitanya Garza MD [address] [place] [address] [phone] Social History Tobacco Use Types Packs/Day Years Used Date Smoking Tobacco: Never Smokeless Tobacco: Never Alcohol Use Standard Drinks/Week Comments No 0 (1 standard drink = 0.6 oz pur e alcohol) Sex and Gender Information Value Date Recorded Sex Assigned at Female 10/31/2021 7:59 AM DRYING MACHINE OPERATOR PACKAGE YARNS Gender Identity Female 10/31/2021 7:59 AM DRYING MACHINE OPERATOR PACKAGE YARNS Sexual Orientation Straight 10/31/2021 7: 59 AM DRYING MACHINE OPERATOR PACKAGE YARNS documented as of this encounter Plan of Treatment Upcoming Encounters Date Type Department Care Team (Late st Contact Info) Description 10/26/2023 1:00 PM DRYING MACHINE OPERATOR PACKAGE YARNS Virtual Visit [facility] Gastroenterology [facility] [address] 4th [place] [phone] Latricia Pettit PA-C [address] [place] [address] 10/28/2023 10:50 AM DRYING MACHINE OPERATOR PACKAGE YARNS Therapy Visit [address] [phone] Zain Quintana MD [address] [place] [address] [phone] Lainey Simon [place] [id number] [place] [address] 601897 11/04/2023 10:50 AM DRYING MACHINE OPERATOR PACKAGE YARNS Therapy Visit [address] [place] [address] [phone] Zain Quintana MD [address] [place] [address] Lainey Simon, PT [address] [place] [address] 11/17/2023 11:00 AM DRYING MACHINE OPERATOR PACKAGE YARNS Therapy Visit [address] [address] Lainey Simon, PT [address] [place] [address] 11/24/2023 10:40 AM CDT Office Visit [facility] [address] [phone] Abby Vasquez MD [address] [place] [address] 11/24/2023 1:30 PM CDT Therapy Visit [address] [address] Lainey Simon, PT [address] [place] [address] 12/01/2023 10:20 AM CDT Therapy Visit [address] [address] Lainey Simon, PT [address] [place] [address] 12/08/2023 10:20 AM CDT Therapy Visit [address] [address] Lainey Simon, PT [address] [place] [address] 01/13/2024 10:00 AM CDT Virtual Visit [facility] Neurology [facility] [address] 3rd [place] [phone] Rosalba Pendleton, FOOD SCIENCE TECHNICIAN TANK FILLER [address] [place] [address] [id number] [place] [address] 01/20/2024 8:00 PM CDT Therapy Visit [facility] Sleep [address] [phone] 03/14/2024 10:30 AM CDT Office Visit [facility] [address] [place] [phone] Abhishek Acevedo PA-C [address] [id number] 03/21/2024 11:30 AM CDT Office Visit [facility]al Surgery [facility] [address] [place] [phone] Zain Quintana MD [address] [place] [address] documented as of this encounter Visit Diagnoses Not on filedocumented in this encounter Additional Health Concerns Infection Onset Date Last Indicated Resolved Time Rule Out COVID-19 04/03/2023 04/03/2023 04/04/2023 6:30 PM CDT documented as of this encounter Care Teams Hand Riveter Relationship Specialty Start Date End Date Alfonso Tang PCP - General Family Practice 09/04/13 08/12/21 Monty Musa MD [facility] [address] [place] [address] PCP - General Family Medicine 08/13/21 Alfonso Tang Family Practice 08/13/21 Dayanara Bee MD [address] [address] Pediatrics 12/26/14 Min Lange MD [address] [address] Neurology 03/30/16 Marlo Madsen MD [address] [place] [address] 246345 Cardiology 10/27/16 Mel Buckley, RN Nurse Coordinator Physical Medicine and Rehabilitation 12/02/16 Douglas Cadet MD [address] [place] [address] Gastroenterology 08/13/21 Rosalba Pendleton APRN TANK FILLER [address] [place] [address] [phone] Nurse Practitioner Neurology 09/05/21 Rosalba Pendleton APRN TANK FILLER [address] [place] [address] Assigned Neuroscience Provider 11/09/21 Douglas Cadet MD [address] [place] [address] Assigned Gastroenterology Provider 03/14/22 09/03/23 Marlo Madsen MD [address] [place] [address] Assigned Heart and Vascular Provider 03/14/22 Abby Vasquez MD [address] [place] [address] Gastroenterology 07/16/22 Abby Vasquez MD [address] [place] [address] Assigned PCP 09/26/22 10/06/23 Airam Hodges PA-C [address] [place] [address] Physician Singing Teacher Surgery 07/19/23 Zain Quintana MD [address] [place] [address] Assigned Surgical Provider 10/07/23 Latricia Pettit PA-C [address] [place] [address] Assigned Gastroenterology Provider 10/15/23 documented as of this encounter
--- OUTSIDE RECORDS SUMMARY | 2023-10-25 14:17 | XMS_ITS | Encounter Summary ---
Author Name Unknown Organization [place] Address [address] [facility] [place] [address] Care Team Providers Care On Site Construction Superintendent Name Role Phone Monty Musa MD Primary Care Provider [phone] Alfonso Tang Unavailable Unavailable Dayanara Bee MD Unavailable [phone] Min Lange MD Unavailable Unavailable Marlo Madsen MD Unavailable [phone] Mel Buckley RN Unavailable [phone] Douglas Cadet MD Unavailable [phone] Rosalba Pendleton APRN ASSISTANT TRACK COACH Unavaila ble Rosalba Pendleton APRN ASSISTANT TRACK COACH Unavaila ble Douglas Cadet MD Unavailable [phone] Marlo Madsen MD Unavailable [phone] Abby Vasquez MD Unavailable Abby Vasquez MD Unavailable Airam Hodges PA-C Unavailable [phone] Zain Quintana MD Unavailable [phone] Latricia Pettit PA-C Unavailable Reason for Visit * Reason Onset Date Comments Appointment 08/13/2021 Encounter Details Date Type Department Care Team (Late Contact Info) Description 08/13/2021 Telephone [facility] [address] [phone] Douglas Cadet MD [address] [place] [address] [phone] Appointment Social History Tobacco Use Types Packs/Day Years Used Date Smoking Tobacco: Never Assessed Sex and Gender Information Value Date Recorded Sex Assigned at Female 10/31/2021 7:59 AM DANCE CHOREOGRAPHER Gender Identity Female 10/31/2021 7:59 AM DANCE CHOREOGRAPHER Sexual Orientation Straight 10/31/2021 7: 59 AM DANCE CHOREOGRAPHER COVID-19 Exposure Response Date Recorded In the last month, have you been in contact with someone who was confirmed or suspected to have Coronavirus / COVID-19? Unable to assess 08/13/2021 10:06 AM DANCE CHOREOGRAPHER documented as of this encounter Miscellaneous Notes * Telephone Encounter - Ashleigh Shahid - 08/13/2021 10:07 AM CST [facility] Phone Message May a detailed message be left on voicemail: yes Reason for Call: Other: Patient is being referred for IBS and is experiencing weight loss, 80lbs within the last year. Please review per scheduling guidelines. Thanks! Action Taken: Message routed to[facility] GI Travel Screening: Not Applicable E CHOREOGRAPHER documented in this encounter Plan of Treatment Upcoming Encounters Date Type Department Care Team (Late st Contact Info) Description 10/26/2023 1:00 PM DANCE CHOREOGRAPHER Virtual Visit [facility] Gastroenterology Clinic [address] [phone] Latricia Pettit PA-C [address] [place] [address] 10/28/2023 10:50 AM DANCE CHOREOGRAPHER Therapy Visit [address] [address] Zain Quintana MD [address] [place] [address] Lainey Simon, PT [address] [place] [address] 11/04/2023 10:50 AM DANCE CHOREOGRAPHER Therapy Visit [address] [address] Zain Quintana MD [address] [place] [address] Lainey Simon, PT [address] [place] [address] 11/17/2023 11:00 AM DANCE CHOREOGRAPHER Therapy Visit [address] [address] Lainey Simon, PT [address] [place] [address] 11/24/2023 10:40 AM CDT Office Visit [facility] Gastroenterology Clinic [address] [phone] Abby Vasquez MD [address] [place] [address] 999475 11/24/2023 1:30 PM CDT Therapy Visit [address] [address] Lainey Simon, PT [address] [place] [address] 12/01/2023 10:20 AM CDT Therapy Visit [facility] [address] [facility] [address] [place] [address] [place] [address] [place] [address] 12/08/2023 10:20 AM CDT Therapy Visit [facility] [address] [facility] [address] [place] [address] [place] [address] [place], [place] [phone] 01/13/2024 10:00 AM CDT Virtual Visit [facility] Neurology Clinic [address] 3rd [place] [phone] Rosalba Pendleton, ANDROID IOS DEVELOPER [address] [id number] [place] [address] 01/20/2024 8:00 PM CDT Therapy Visit [facility] Sleep [address] [phone] 03/14/2024 10:30 AM CDT Office Visit [facility] Sleep [address] [phone] Abhishek Acevedo PA-C [address] [address] 03/21/2024 11:30 AM CDT Office Visit [facility]al Surgery [facility] [address] 4th [place] [phone] Zain Quintana MD [address] [place] [address] documented as of this encounter Visit Diagnoses Not on filedocumented in this encounter Additional Health Concerns Infection Onset Date Last Indicated Resolved Time Rule Out COVID-19 04/03/2023 04/03/2023 04/04/2023 6:30 PM CDT documented as of this encounter Care Teams On Site Construction Superintendent Relationship Specialty Start Date End Date Monty Musa MD [facility] [address] [place] [address] PCP - General Family Medicine 08/13/21 Alfonso Tang [facility] [address] [place] [address] [facility] 08/13/21 Dayanara Bee MD [address] [facility] [address] [place] [address] Pediatrics 12/26/14 Min Lange MD [address] [facility] [address] [place] [address] Neurology 03/30/16 Marlo Madsen MD [address] [facility] [address] [place] [address] Cardiology 10/27/16 Mel Buckley, RN Nurse Coordinator Physical Medicine and Rehabilitation 12/02/16 Douglas Cadet MD 500 [place] [address] Gastroenterology 08/13/21 Rosalba Pendleton APRN ASSISTANT TRACK COACH [address] [id number] [place] [address] Nurse Practitioner Neurology 09/05/21 Rosalba Pendleton APRN ASSISTANT TRACK COACH [address] [place] [address] [id number] [place] [address] Assigned Neuroscience Provider 11/09/21 Douglas Cadet MD [address] [place] [address] Assigned Gastroenterology Provider 03/14/22 09/03/23 Marlo Madsen MD [address] [place] [address] [address] [place] [address] Assigned Heart and Vascular Provider 03/14/22 Abby Vasquez MD [address] [place] [address] Gastroenterology 07/16/22 Abby Vasquez MD [address] [place] [address] 468255 Assigned PCP 09/26/22 10/06/23 Airam Hodges PA-C [address] [place] [address] Physician Criminal Psychologist Surgery 07/19/23 Zain Quintana MD [address] [place] [address] Assigned Surgical Provider 10/07/23 Latricia Pettit PA-C [address] [place] [address] Assigned Gastroenterology Provider 10/15/23 documented as of this encounter
== END 2023-10-25 14:03 | disposition home or self-care (01) ==
PROVIDERS: PCP Family Medicine; Visit Provider Family Medicine
DX: E78.5 Hyperlipidemia, unspecified (principal); R79.89 Other specified abnormal findings of blood chemistry; R61 Generalized hyperhidrosis; Z13.228 Encounter for screening for other metabolic disorders
CPT/HCPCS: 80048; 80061; 84439; 84443; 84480

== ENCOUNTER 2023-12-27 14:18 | Outpatient (CLI) | payer MEDICARE, OTHER, SELFPAY ==
--- OUTSIDE RECORDS SUMMARY | 2023-12-27 14:22 | XMS_ITS | Encounter Summary ---
Author Name Unknown Organization [place] Address [address] [facility] [place] [address] Care Team Providers Care Well Logging Captain Mud Analysis Name Role Phone Monty Musa MD Primary Care Provider Alfonso Tang Unavailable Unavailable Dayanara Bee MD Unavailable [phone] Min Lange MD Unavailable Unavailable Marlo Madsen MD Unavailable [phone] Mel Buckley RN Unavailable [phone] Douglas Cadet MD Unavailable [phone] Rosalba Pendleton APRN REAL ESTATE INVESTMENT ANALYST Unavaila ble Rosalba Pendleton APRN REAL ESTATE INVESTMENT ANALYST Unavaila ble Marlo Madsen MD Unavailable [phone] Abby Vasquez MD Unavailable Airam Hodges PA-C Unavailable [phone] Zain Quintana MD Unavailable [phone] Latricia Pettit PA-C Unavailable [phone] Reason for Visit * Rehab Therapy Integrated Services (Routine) - Authorized Specialty Diagnoses / Procedures Referred By Emily t Referred To Contact Diagnoses Slow transit constipation [facility] [address] [place] [phone] Referral ID Status Reason Start Date Expiration Date V isits Requested Visits Authorized [id number] Authorized 09/13/2023 09/12/2024 365 365 Encounter Details Date Type Department Care Team (Latest Contact Info) Description 12/22/2023 12:50 PM CDT Therapy Visit [facility] [address] [place], [place] [address] [place] [address] [place], [place] [id number] Slow transit constipation (Primary Dx) Social History Tobacco Use Types Packs/Day Years Used Date Smoking Tobacco: Never Smokeless Tobacco: Never Alcohol Use Standard Drinks/Week Comments No 0 (1 standard drink = 0.6 oz pur e alcohol) PHQ-2 Answer Date Recorded PHQ-2 Score 3 10/26/2023 Adolescent Education Answer Date Record ed Getting School Help Needed Not on file 06/04 Sex and Gender Information Value Date Recorded Sex Assigned at Female 10/31/2021 7:59 AM BOOKKEEPING SERVICE SALES AGENT Gender Identity Female 10/31/2021 7:59 AM BOOKKEEPING SERVICE SALES AGENT Sexual Orientation Straight 10/31/2021 7: 59 AM BOOKKEEPING SERVICE SALES AGENT documented as of this encounter Progress Notes * Lainey Simon, PT - 12/23/2023 11:57 AM CDT 12/22/23 0500 Appointment Info Signing clinician's name / credentials Lainey Simon PT, DPT Total/Authorized Visits Eval and Treat Visits Used 7 Medical Diagnosis Slow transit constipation PT Tx Diagnosis pelvic floor muscle dysfunction Quick Adds Pelvic Consent;Certification Progress Note/Certification Start of Care Date 10/21/23 Onset of illness/injury or Date of Surgery 08/02/23 Therapy Frequency 1 x per week for 6-8 weeks, then 1 x every other week Predicted Duration 6 months Certification date from 12/22/23 Certification date to 03/01/24 Progress Note Due Date 03/01/24 Progress Note Completed Date 12/22/23 GOALS PT Goals 2;3 PT Goal 1 Goal Identifier Goal 1 Goal Description The patient will report having 0/10 pain when voiding in order to promote continence, skin activity, and free movement in the community Rationale to maximize safety and independence with performance of ADLs and functional tasks;to maximize safety and independence with self cares;to maximize safety and independence within the community Target Date 04/20/24 PT Goal 2 Goal Identifier Goal 2 Goal Description The patient will be able to verbalize and demonstrate 2 effective pain management strategies in order to promote independence with self- care and full activity participation. Rationale to maximize safety and independence with self cares Target Date 04/20/24 PT Goal 3 Goal Identifier Goal 3 Goal Description The patient will consistently have 4 or more soft formed bowel movements per week with the feeling of having emptied completely. Rationale to maximize safety and independence with performance of ADLs and functional tasks;to maximize safety and independence within the home;to maximize safety and independence within the community;to maximize safety and independence with transportation;to maximize safety and independence with self cares Goal Progress 1 week consistently Target Date 04/20/24 Subjective Report Subjective Report Laying on a pilates ball has been extremely helpful for Latricia. She's been going almost almost every day, with feelings of incomplete emptying. The rectal work was helpful last time. (Bowel diar notes- need more veggie diversityj stomach pain after dairy, apple, carb and sugar heavy) PT Modalities PT Modalities Biofeedback;Cryotherapy;Hot Packs;Electrical Stimulation;Ultrasound Treatment Interventions (PT) Interventions Therapeutic Procedure/Exercise;Therapeutic Activity;Neuromuscular Re-education;Gait Training;Manual Therapy Therapeutic Procedure/Exercise Therapeutic Procedures: strength, endurance, ROM, flexibility minutes (23656) 12 PTRx Ther Proc 1 Elimination Exercise with Straw PTRx Ther Proc 1 - Details Belly big belly hard on exhale 1 x 20, sitting on towel for tactile feedback PTRx Ther Proc 2 Pelvic Floor Bulge Position PTRx Ther Proc 2 - Details 1-2 min PTRx Ther Proc 3 Knee hugs to chest w/ exhale PTRx Ther Proc 3 - Details 1 x 10 B, core strength and bowel motility Skilled Intervention Verbal and tactile cueing Therapeutic Activity Therapeutic Activities: dynamic activities to improve functional performance minutes (18378) 17 Therapeutic Activities Ther Act 3;Ther Act 2;Ther Act 4;Ther Act 5 Ther Act 1 Review of fiber intake Ther Act 1 - Details 30 g most days, discussed benefits of shakeel seeds and flax seeds Ther Act 2 Education about mineral oil enemas Ther Act 2 - Details verbalized understanding Ther Act 3 Introduction to MOP protocol, something to discuss w/ MD Ther Act 3 - Details Consistent use; more spontaneous bowel movements Ther Act 4 Abdominal massage 30 min-1 hour after medication Ther Act 4 - Details Rolling on pilates ball Skilled Intervention Patient education to improve pelvic floor function and reduce constipation Manual Therapy Manual Therapy: Mobilization, MFR, MLD, friction massage minutes (63170) 9 Manual Therapy Manual Therapy 2 Manual Therapy 1 Internal rectal STM Manual Therapy 1 - Details Puborectalis Manual Therapy 2 - Details \ Skilled Intervention manual therapy provided to decrease pain and improve function Patient Response/Progress Tolerated well; trace bear down. Difficulty relaxing muscles Education Learner/Method Patient;Pictures/Video;No Barriers to Learning;Demonstration;Listening;Reading Plan Home program See PTRX Plan for next session Check in on bowel diary, pelvic internal work, pelvic wand Comments Pelvic Health Informed Consent Statement Discussed with patient/guardian reason for referral regarding pelvic health needs and external/internal pelvic floor muscle examination. Opportunity provided to ask questions and verbal consent for assessment and intervention was given. Total Session Time Timed Code Treatment Minutes 38 Total Treatment Time (sum of timed and untimed services) 38 [facility] OUTPATIENT PHYSICAL THERAPY PLAN OF TREATMENT FOR OUTPATIENT REHABILITATION Patient's Last Name, First Name, Latricia Tatum Date of : 1990 Provider's Name [facility] On[facility] Date: 08/02/23 Start of Care Date: 10/21/23 Medical Diagnosis: Slow transit constipation PT Treatment Diagnosis: pelvic floor muscle dysfunction Plan of Treatment Frequency/Duration: 1 x per week for 6-8 weeks, then 1 x every other week/ 6 months Certification date from 12/22/23 to 03/01/24 See note for plan of treatment details and functional goals Lainey Simon PT I CERTIFY THE NEED FOR THESE SERVICES FURNISHED UNDER THIS PLAN OF TREATMENT AND WHILE UNDER MY CARE (Physician attestation of this document indicates review and certification of the therapy plan). Referring Provider: Zain Quintana Initial Assessment See [facility] Evaluation- Start of Care Date: 10/21/23 PLAN Continue therapy per current plan of care. Beginning/End Dates of Progress Note Reporting Period: 12/22/23 to 12/22/2023 Referring Provider: Zain Quintana Associated attestation - Zain Quintana MD - 12/23/2023 2:56 PM CDT Physician Attestation I agree with the information in this note. Zain Quintana MD * Lainey Simon, PT - 12/22/2023 1:20 PM CDT 12/22/23 0500 Appointment Info Signing clinician's name / credentials Lainey Simon PT, DPT Total/Authorized Visits Eval and Treat Visits Used 7 Medical Diagnosis Slow transit constipation PT Tx Diagnosis pelvic floor muscle dysfunction Quick Adds Pelvic Consent;Certification Progress Note/Certification Start of Care Date 10/21/23 Onset of illness/injury or Date of Surgery 08/02/23 Therapy Frequency 1 x per week for 6-8 weeks, then 1 x every other week Predicted Duration 6 months Certification date from 12/22/23 Certification date to 03/01/24 Progress Note Due Date 03/01/24 Progress Note Completed Date 12/22/23 GOALS PT Goals 2;3 PT Goal 1 Goal Identifier Goal 1 Goal Description The patient will report having 0/10 pain when voiding in order to promote continence, skin activity, and free movement in the community Rationale to maximize safety and independence with performance of ADLs and functional tasks;to maximize safety and independence with self cares;to maximize safety and independence within the community Target Date 04/20/24 PT Goal 2 Goal Identifier Goal 2 Goal Description The patient will be able to verbalize and demonstrate 2 effective pain management strategies in order to promote independence with self- care and full activity participation. Rationale to maximize safety and independence with self cares Target Date 04/20/24 PT Goal 3 Goal Identifier Goal 3 Goal Description The patient will consistently have 4 or more soft formed bowel movements per week with the feeling of having emptied completely. Rationale to maximize safety and independence with performance of ADLs and functional tasks;to maximize safety and independence within the home;to maximize safety and independence within the community;to maximize safety and independence with transportation;to maximize safety and independence with self cares Goal Progress 1 week consistently Target Date 04/20/24 Subjective Report Subjective Report Laying on a pilates ball has been extremely helpful for Latricia. She's been going almost almost every day, with feelings of incomplete emptying. The rectal work was helpful last time. (Bowel diar notes- need more veggie diversityj stomach pain after dairy, apple, carb and sugar heavy) PT Modalities PT Modalities Biofeedback;Cryotherapy;Hot Packs;Electrical Stimulation;Ultrasound Treatment Interventions (PT) Interventions Therapeutic Procedure/Exercise;Therapeutic Activity;Neuromuscular Re-education;Gait Training;Manual Therapy Therapeutic Procedure/Exercise Therapeutic Procedures: strength, endurance, ROM, flexibility minutes (03217) 12 PTRx Ther Proc 1 Elimination Exercise with Straw PTRx Ther Proc 1 - Details Belly big belly hard on exhale 1 x 20, sitting on towel for tactile feedback PTRx Ther Proc 2 Pelvic Floor Bulge Position PTRx Ther Proc 2 - Details 1-2 min PTRx Ther Proc 3 Knee hugs to chest w/ exhale PTRx Ther Proc 3 - Details 1 x 10 B, core strength and bowel motility Skilled Intervention Verbal and tactile cueing Therapeutic Activity Therapeutic Activities: dynamic activities to improve functional performance minutes (98188) 17 Therapeutic Activities Ther Act 3;Ther Act 2;Ther Act 4;Ther Act 5 Ther Act 1 Review of fiber intake Ther Act 1 - Details 30 g most days, discussed benefits of shakeel seeds and flax seeds Ther Act 2 Education about mineral oil enemas Ther Act 2 - Details verbalized understanding Ther Act 3 Introduction to MOP protocol, something to discuss w/ MD Ther Act 3 - Details Consistent use; more spontaneous bowel movements Ther Act 4 Abdominal massage 30 min-1 hour after medication Ther Act 4 - Details Rolling on pilates ball Skilled Intervention Patient education to improve pelvic floor function and reduce constipation Manual Therapy Manual Therapy: Mobilization, MFR, MLD, friction massage minutes (75023) 9 Manual Therapy Manual Therapy 2 Manual Therapy 1 Internal rectal STM Manual Therapy 1 - Details Puborectalis Manual Therapy 2 - Details \ Skilled Intervention manual therapy provided to decrease pain and improve function Patient Response/Progress Tolerated well; trace bear down. Difficulty relaxing muscles Education Learner/Method Patient;Pictures/Video;No Barriers to Learning;Demonstration;Listening;Reading Plan Home program See PTRX Plan for next session Check in on bowel diary, pelvic internal work, pelvic wand Comments Pelvic Health Informed Consent Statement Discussed with patient/guardian reason for referral regarding pelvic health needs and external/internal pelvic floor muscle examination. Opportunity provided to ask questions and verbal consent for assessment and intervention was given. Total Session Time Timed Code Treatment Minutes 38 Total Treatment Time (sum of timed and untimed services) 38 [facility] OUTPATIENT PHYSICAL THERAPY PLAN OF TREATMENT FOR OUTPATIENT REHABILITATION Patient's Last Name, First Name, Latricia Tatum Date of : 1990 Provider's Name [facility] Date: 08/02/23 Start of Care Date: 10/21/23 Medical Diagnosis: Slow transit constipation PT Treatment Diagnosis: pelvic floor muscle dysfunction Plan of Treatment Frequency/Duration: 1 x per week for 6-8 weeks, then 1 x every other week/ 6 months Certification date from 12/22/23 to 03/01/24 See note for plan of treatment details and functional goals Lainey Simon PT I CERTIFY THE NEED FOR THESE SERVICES FURNISHED UNDER THIS PLAN OF TREATMENT AND WHILE UNDER MY CARE (Physician attestation of this document indicates review and certification of the therapy plan). Referring Provider: Zain Quintana Initial Assessment See [facility] Evaluation- Start of Care Date: 10/21/23 PLAN Continue therapy per current plan of care. Beginning/End Dates of Progress Note Reporting Period: 12/22/23 to 12/22/2023 Referring Provider: Zain Quintana documented in this encounter Plan of Treatment Upcoming Encounters Date Type Department Care Team (Late st Contact Info) Description 01/05/2024 12:50 PM CDT Therapy Visit [address] [place] [address] Lainey Simon PT [address] [place] [phone] 01/12/2024 12:50 PM CDT Therapy Visit [address] [place] [address] Lainey Simon PT [address] [place] [address] 01/13/2024 10:00 AM CDT Virtual Visit [facility] [address] [place] [phone] Rosalba Pendleton APRN REAL ESTATE INVESTMENT ANALYST [address] [place] [address] [id number] [place], [place] [phone] 01/20/2024 8:00 PM CDT Therapy Visit [facility] Sleep [address] [phone] 01/26/2024 12:50 PM CDT Therapy Visit [address] [address] Lainey [place], [place] [address] [place] [address] [phone] 02/09/2024 12:50 PM CDT Therapy Visit [address] [address] [place] [address] [place] [address] 03/14/2024 10:30 AM CDT Office Visit [address] [phone] Abhishek Acevedo PA-C [address] [phone] 03/21/2024 11:30 AM CDT Office Visit [facility] [address] 4th [place] [phone] Zain Quintana MD [address] [place] [address] [phone] 03/21/2024 2:30 PM CDT Virtual Visit [facility] Gastroenterology Clinic [address] [phone] Latricia Pettit PA-C [address] [place] [address] [phone] 06/07/2024 11:20 AM CDT Office Visit [facility]enterology [facility] [address] [phone] Latricia Pettit PA-C [address] [place] [address] Abby Vasquez MD [address] [place] [address] [phone] documented as of this encounter Visit Diagnoses Diagnosis Slow transit constipation- Primary documented in this encounter Additional Health Concerns Assessment Noted Time PHQ-9 Depression Total Score: 12 024 12:52 PM BOOKKEEPING SERVICE SALES AGENT documented as of this encounter Care Teams Well Logging Captain Mud Analysis Relationship Specialty Start Date End Date Monty Musa MD [facility] [address] [place] [address] PCP - General Family Medicine 08/13/21 Alfonso Tang [facility] [address] [place] [address] Family Practice 08/13/21 Dayanara Bee MD [address] [place] [phone] Pediatrics 12/26/14 Min Lange MD [address] [address] Neurology 03/30/16 Marlo Madsen MD [address] [address] Cardiology 10/27/16 Mel Buckley, RN Nurse Coordinator Physical Medicine and Rehabilitation 12/02/16 Douglas Cadet MD [address] [place] [address] Gastroenterology 08/13/21 Rosalba Pendleton APRN REAL ESTATE INVESTMENT ANALYST [address] [place] [address] [phone] Nurse Practitioner Neurology 09/05/21 Rosalba Pendleton APRN REAL ESTATE INVESTMENT ANALYST [address] [place] [phone] Assigned Neuroscience Provider 11/09/21 Marlo Madsen MD [address] [place] [phone] Assigned Heart and Vascular Provider 03/14/22 Abby Vasquez MD [address] [place] [address] Gastroenterology 07/16/22 Airam Hodges PA-C [address] [place], [place] [phone] Physician Flat Bed Operator Surgery 07/19/23 Zain Quintana MD [address] [place] [address] Assigned Surgical Provider 10/07/23 Latricia Pettit PA-C [address] [place] [address] Assigned Gastroenterology Provider 10/15/23 documented as of this encounter
--- OUTSIDE RECORDS SUMMARY | 2023-12-27 14:22 | XMS_ITS | Clinical Summary ---
Author Name Unknown Organization [facility] Address [place], [place] [address] Care Team Providers Care Seasonal Delivery Driver Name Role Phone Pcp, No Primary Care Provider Adelso Ramos MD Unavailable [phone] Allergies Active Allergy Reactions Criticality Noted Date Comments Amoxicillin-Pot Clavulanate Hypertension 2017 hypertension Hydrocodone-Acetaminophen GI Upset 01/05/2018 Medications Medication Sig Dispensed Refills Start Date End Date Status citalopram (CELEXA) 20 mg tablet Take 20 mg by mouth once daily. 11/09/2021 Active clonazePAM (KLONOPIN) 0.5 mg tablet TAKE ONE TABLET BY MOUTH DAILY NEEDED FOR ANXIETY 06/26/2022 Active DULoxetine (CYMBALTA) 30 mg Delayed-release capsule TAKE ONE CAPSULE BY MOUTH ONE TIME DAILY along with 60 mg cap for total daily dose of 90 mg 09/07/2022 Active DULoxetine (CYMBALTA) 60 mg Delayed-release capsule TAKE ONE CAPSULE BY MOUTH ONE TIME DAILY ALONG WITH ONE 30 MG CAPSULE FOR TOTAL DAILY DOSE OF 90 MG 09/07/2022 Active Aimovig Autoinjector 140 mg/mL auto-injector Inject 1 mL (140 mg) Subcutaneous every 30 days 10/03/2022 Active hydrOXYzine HCL (ATARAX) 25 mg tablet Take 1-2 tablets by mouth daily as needed 09/07/2022 Active Kurvelo, 28, 0.15-0.03 mg tablet TAKE 1 TABLET BY MOUTH ONCE DAILY. Skip the placebo pills for the first two packs. Take the placebo pills of the third pack. 08/17/2022 Active mometasone 0.1% (ELOCON 0.1% CREAM) 0.1 % cream Apply topically to affected area(s). Active ondansetron (ZOFRAN ODT) 4 mg disintegrating tablet Take 1 tablet (4 mg) by mouth every 8 hours as needed for nausea 09/07/2022 Active SUMAtriptan (IMITREX) 100 mg tablet TAKE 1 TABLET (100 MG) BY MOUTH AT ONSET OF HEADACHE FOR MIGRAINE. MAY REPEAT IN 2 HOURS NEEDED. MAX 2 TABLETS IN 24 HOURS. 01/16/2022 Active prochlorperazine (COMPAZINE) 5 mg tablet Take 1-2 tablets (5-10 mg) by mouth every 6 hours as needed for nausea or vomiting 01/16/2022 Active Ubrelvy 100 mg tab tablet Take 1 tablet (100 mg) by mouth at onset of headache (may repeat in 2 hours as needed. Max 2 tabs in 24 hours) 11/03/2021 Active lubiprostone (AMITIZA) 24 mcg capsule Take 1 capsule (24 mcg) by mouth 2 times daily (with meals) 08/20/2022 Active fludrocortisone (FLORINEF) 0.1 mg tab No Take 0.2 mg by mouth once daily. 09/07/2022 Active Social History Tobacco Use Types Packs/Day Years [...] 2009 Tetanus booster 2011 COVID-19 vaccine series (2022- season) 2023 07/22/2022, 10/31/2021, 01/29/2021, Additional history exists Influenza for age 9-49 05/14/2024 Pap test for age 21-65 08/20/2026 3, 08/20/2023, 11/24/2021, Additional history exists Pneumococcal series for age 6-64 Aged Out No longer eligible based on patient's age to complete this topic Procedures Procedure Name Priority Date/Time Associated Diagnosis Comments HPV THIN PREP Routine 08/20/2023 12:00 PM HAND MOLDER AND CASTER from Last 3 Months or Most Recently Relevant to Health Maintenance Results * (ABNORMAL) HPV HIGH RISK (08/20/2023 12:00 PM HAND M[employer]DER [employer] CASTER) TYPE 16 Negative Negative 08/26/2023 11:15 AM HAND M[employer]DER AND CASTER [facility] TYPE 18 Negative Negative 08/26/2023 11:15 AM HAND MOLDER AND CASTER [facility] OTHER HIGH RISK TYPES Positive(A) Negative 08/26/2023 11:15 AM HAND MOLDER AND CASTER [facility] Other (Cervical) 08/20/2023 12:00 PM HAND MOLDER AND CASTER 08/24/2023 11:43 AM HAND MOLDER AND CASTER Narrative [facility] - 08/26/2023 11:15 AM HAND MOLDER AND CASTER Specimen is positive for the DNA of any one of, or combination of, the following high risk HPV types: 31, 33, 35, 39, 45, 51, 52, 56, 58, 59, 66, 68. HPV types 16 and 18 DNA were undetectable or below the pre-set threshold. ? Methodology: Sharon Vahid 4800 HPV Test Doctor Unknown MICROBIOLOGY [facility] [address] [place] [address], from Last 3 Months or Most Recently Relevant to Health Maintenance Care Teams Seasonal Delivery Driver Relationship Specialty Start Date End Date Pcp, No . PCP - General 10/11/22 Adelso Lara MD [address] [place] [address] 10/11/22
--- OUTSIDE RECORDS SUMMARY | 2023-12-27 14:22 | XMS_ITS | Referral Summary ---
Author Name Unknown Organization [place] Address [address] [facility] [place] [address] Care Team Providers Care Social Worker Name Role Phone Monty Musa MD Primary Care Provider Jatinder Tang Unavailable Unavailable Dayanara Bee MD Unavailable [phone] Min Lange MD Unavailable Unavailable Marlo Madsen MD Unavailable [phone] Mel Buckley RN Unavailable [phone] Douglas Cadet MD Unavailable Rosalba Pendleton APRN SAP GATHERER Unavaila ble Rosalba Pendleton APRN SAP GATHERER Unavaila ble Marlo Madsen MD Unavailable [phone] Abby Vasquez MD Unavailable Airam Hodges PA-C Unavailable [phone] Zain Quintana MD Unavailable [phone] Latricia Pettit PA-C Unavailable [phone] Encounters Date Type Department Care Team Description 12/22/2023 Travel 12/22/2023 12:50 PM CDT Therapy Visit [facility] [address] [place] [address] Wild, Lainey, PT Slow transit constipation (Primary Dx) 12/13/2023 Travel 12/13/2023 10:50 AM CDT Therapy Visit [address] [place] [address] Wild, Lainey, PT Slow transit constipation (Primary Dx) 12/06/2023 MyC Medical Advice [facility] [address] [phone] Miriam Yepez RN 12/01/2023 Travel 12/01/2023 10:20 AM CDT Therapy Visit [address] [place] [address] Wild, Lainey, PT Slow transit constipation (Primary Dx) 11/24/2023 Telephone [facility] [address] [address] Sheri Edmonds RN 11/24/2023 Travel 11/24/2023 10:40 AM CDT Office Visit [facility] [address] [address] Abby Vasquez MD Constipation, unspecified constipation type (Primary Dx); Pelvic floor dysfunction 11/18/2023 Telephone [facility] [address] [address] Miriam Yepez RN Prior Auth - Medication (AIMOVIG 140 MG/ML injection-PA NOT NEEDED/ALLOWED ) 11/17/2023 Refill [facility] [address] [address] Rosalba Pendleton APRN SAP GATHERER Refill Request 11/17/2023 MyC Medical Advice [facility] [address] [address] Abby Vasquez MD 11/17/2023 Travel 11/17/2023 Refill [facility] [address] [address] Rosalba Pendleton APRN CNP Medication Refill 11/17/2023 11:00 AM FLOOR SPECIALIST Therapy Visit [address] [address] Wild, Lainey, PT Slow transit constipation (Primary Dx) 11/11/2023 MyC Medical Advice [facility] [address] [address] Vivian Carter 11/08/2023 Travel 11/08/2023 2:40 PM FLOOR SPECIALIST Therapy Visit [address] [address] Wild, Lainey, PT Slow transit constipation (Primary Dx) 10/28/2023 Travel 10/28/2023 10:50 AM FLOOR SPECIALIST Therapy Visit [address] [address] Zain Quintana MD Wild, Lainey, PT Slow transit constipation (Primary Dx) 10/26/2023 1:00 PM FLOOR SPECIALIST Virtual Visit [facility] [address] [address] Latricia Pettit PA-C Constipation, unspecified constipation type; Pelvic floor dysfunction 10/25/2023 Telephone [facility] [address] [address] Rosalba Pendleton APRN CNP Prior Authorization 10/21/2023 Travel 10/21/2023 11:30 AM FLOOR SPECIALIST Therapy Visit [address] [place] [address] Zain Quintana MD Wild, Abigail, PT Slow transit constipation 10/18/2023 Travel 10/18/2023 PRE VISIT [facility] [address] [phone] Airam Hodges PA-C Previsit 10/13/2023 MyC Medical Advice [facility] [address] [place] [phone] Vivian Carter 10/01/2023 Travel 10/01/2023 9:30 AM FLOOR SPECIALIST Ancillary Procedure [facility] [address] [place] [address] Zain Quintana MD Slow transit constipation 09/29/2023 Travel 09/29/2023 9:30 AM FLOOR SPECIALIST Ancillary Procedure [facility] [address] [facility] [facility] [address] [place] [phone] Zain Quintana MD Slow transit constipation 09/27/2023 Travel 09/27/2023 9:30 AM FLOOR SPECIALIST Ancillary Procedure [facility] [address] [facility] [address] [facility] [address] [place] [phone] Zain Quintana MD Slow transit constipation from Last 3 Months Allergies Active Allergy Reactions Criticality Noted Date Comments Amoxicillin-Pot Clavulanate GI Disturbance Medium 04/2017 Hydrocodone-Acetaminophen 01/14/2022 Medications Medication Sig Dispensed Refills Start Date End Date Status order for DMEIndications:Dysa utonomia (H),Heat intolerance Equipment being ordered: Micro climate cooling vest 1 kit 0 04/03/2015 Active hydrOXYzine (ATARAX) 50 MG tablet Take 50 mg by mouth daily 01/07/2022 Active clonazePAM (KLONOPIN) 0.5 MG tablet Take 0.5 mg by mouth daily 08/12/2021 Active prochlorperazine (COMPAZINE) 5 MG tabletIndications:I ntractable 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 Take 1-2 tablets (5-10 mg) by mouth every 6 hours as needed for nausea or vomiting 20 tablet 3 01/14/2022 Active DULoxetine (CYMBALTA) 30 MG capsule Take 30 mg by mouth 2 times daily 02/02/2022 Active ondansetron (ZOFRAN ODT) 4 MG ODT tab Take 1 tablet by mouth every 8 hours as needed 08/12/2021 Active ZOLMitriptan (ZOMIG-ZMT) 5 MG ODTIndications:Migr soco without aura and without status migrainosus, not intractable Take 1 tablet (5 mg) by mouth at onset of headache for migraine May repeat in 2 hours. Max 2 tablets/24 hours. 18 tablet 11 04/02/2023 Active midodrine (PROAMATINE) 5 MG tabletIndications:S yncope and collapse,Palpitatio ns,Vasovagal syncope Take 2 tablets (10mg) in the morning, and 1 tablet (5mg) in the afternoon. Do not take within 4 hours lying down 270 tablet 1 06/04/2023 Active fludrocortisone (FLORINEF) 0.1 MG tabletIndications:V asovagal syncope Take 2 tablets (0.2 mg) by mouth daily 180 tablet 3 06/22/2023 Active Zavegepant HCl 10 MG/ACT SOLNIndications:Dontrell erasmo without aura and without status migrainosus, not intractable Kenner 10 mg in nostril at onset of headache (migraine. Max one spray in 24 hours) 6 each 11 07/15/2023 Active plecanatide (TRULANCE) 3 MG tabletIndications:I rritable bowel syndrome with constipation TAKE ONE TABLET BY MOUTH ONE TIME DAILY 30 tablet 1 09/29/2023 Active erenumab-aooe (AIMOVIG) 140 MG/ML injectionIndication s:Intractable 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 Inject 1 mL (140 mg) Subcutaneous every 30 days 1 mL 11 11/17/2023 Active levothyroxine (SYNTHROID/LEVOTHRO ID) 25 MCG tablet Take 25 mcg by mouth daily Active atorvastatin (LIPITOR) 10 MG tablet Take 10 mg by mouth every evening 10/29/2023 Active plecanatide (TRULANCE) 3 MG tabletIndications:I rritable bowel syndrome with constipation,Chroni c idiopathic constipation Take 1 tablet (3 mg) by mouth daily 90 tablet 3 11/24/2023 Active Active Problems Problem Noted Date Diagnosed Date Slow transit constipation 12/01/2023 Irritable bowel syndrome without diarrhea 2015 Syncope [...] Sex Assigned at Female 10/31/2021 7:59 AM FLOOR SPECIALIST Gender Identity Female 10/31/2021 7:59 AM FLOOR SPECIALIST Sexual Orientation Straight 10/31/2021 7: 59 AM FLOOR SPECIALIST Last Filed Vital Signs Vital Sign Reading Time Taken Comments Blood Pressure 136/93 11/24/2023 10:34 AM CDT Pulse 75 11/24/2023 10:34 AM CDT Temperature 36.3 ??C (97.3 ??F) 07/09/2023 12:06 PM C DT Respiratory Rate 18 07/09/2023 6:46 PM CDT Oxygen Saturation 98% 11/24/2023 10:34 AM CDT Inhaled Oxygen Concentration - - Weight 82.7 kg (182 lb 6.4 oz) 11/24/2023 10:34 AM CDT Height 167.6 cm (5' 6) 11/24/2023 10:34 AM CDT Body Mass Index 29.44 11/24/2023 10:34 AM CDT Plan of Treatment Upcoming Encounters Date Type Department Care Team (Late st Contact Info) Description 01/05/2024 12:50 PM CDT Therapy Visit [address] [address] Lainey Simon, PT [address] [place] [address] 01/12/2024 12:50 PM CDT Therapy Visit [address] [address] Lainey Simon, PT [address] [place] [address] 01/13/2024 10:00 AM CDT Virtual Visit [facility] [address] 3rd [place] [phone] Rosalba Pendleton, MAXIMILIANO [address] [id number] [place], [place] [phone] 01/20/2024 8:00 PM CDT Therapy Visit [facility] [address] [phone] 01/26/2024 12:50 PM CDT Therapy Visit [address] [address] [place] [address] [place], [place] [phone] 02/09/2024 12:50 PM CDT Therapy Visit [facility] [address] [facility] [address] [place] [address] [place] [address] [place] [address] 03/14/2024 10:30 AM CDT Office Visit [facility] [place] [address] [facility] [address] [place] [phone] Abhishek Acevedo PA-C [address] [phone] 03/21/2024 11:30 AM CDT Office Visit [facility] [address] [phone] Zain Quintana MD [address] [place] [phone] 03/21/2024 2:30 PM CDT Virtual Visit [facility] [address] [phone] Latricia Pettit PA-C [address] [place] [phone] 06/07/2024 11:20 AM CDT Office Visit [facility] [address] [phone] Latricia Pettit PA-C [address] [place] [address] 692255 Abby Vasquez MD [address] [place] [address] Procedures Procedure Name Priority Date/Time Associated Diagnosis Comments XR ABDOMEN 1 VIEW Routine 10/01/2023 8:5 8 AM FLOOR SPECIALIST Slow transit constipation XR ABDOMEN 1 VIEW Routine 09/29/2023 8:5 7 AM FLOOR SPECIALIST Slow transit constipation XR ABDOMEN 1 VIEW Routine 09/27/2023 9:0 2 AM FLOOR SPECIALIST Slow transit constipation TSH Routine 03/04/2022 12:35 PM CDT Irritable bowel syndrome with constipation COLONOSCOPY - HIM SCAN 10/16/2021 12:00 AM FLOOR SPECIALIST HCL PAP SMEAR Routine 02/05/1999 1:18 PM CDT Gynecologic Examination from Last 3 Months or Most Recently Relevant to Health Maintenance Results * XR Abdomen 1 View (10/01/2023 8:58 AM FLOOR SPECIALIST) Only the most recent of3 resultswithin the time period is included. Anatomical Region Laterality Modality Abdomen/Pelvis Computed Radiogr aphy Impressions 10/01/2023 9:33 AM FLOOR SPECIALIST IMPRESSION: Two Sitz markers remain in the rectum. Remainder no longer present. Small to moderate amount of stool. ??Nonobstructed bowel gas pattern. JATINDER ARREOLA MD Narrative 10/01/2023 9:33 AM FLOOR SPECIALIST ABDOMEN ONE VIEW ??10/01/2023 8:58 AM HISTORY: [...] MD IMG DIAGNOSTIC IMAGI NG ORDERABLES * TSH (03/04/2022 12:35 PM CDT) TSH 0.65 0.40 - 4.00 mU/L 03/04/2022 1:08 PM CDT [facility] - CORE LAB Blood STRUCTURE OF RIGHT UPPER LIMB / Unknown Venipuncture / Unknown 03/04/2022 12:35 PM CDT 03/04/2022 12:37 PM CDT Douglas Cadet MD LAB - BLOOD O RDERABLES [facility] - CORE LAB [address] [place] [address] * COLONOSCOPY - HIM SCAN (10/16/2021 12:00 AM FLOOR SPECIALIST) 10/16/2021 Provider Outside PROCEDURES * PAP SMEAR (02/05/1999 1:18 PM CDT) Unlabelled DNR [facility] Biopsy Sent DNR [facility] Source VAG,CERV,E NDOCERV [facility] LMP POST [facility] PARA 3 [facility] 2 [facility] Clinical History DNR [facility] Therapy DNR [facility] Last Pap Diagnosis WITHIN NORMAL LIMITS [facility] PAP Date [id number] [facility] Specimen # DNR [facility] Tissue DNR [facility] Tissue Date DNR [facility] Statement of Adequacy [facility] Comment: SATISFACTORY FOR INTERPRETATION POST MENOPAUSAL PATIENT. ??NO ENDOCERVICAL CELLS SEEN. General Categorization DNR [facility] Descriptive Diagnosis [facility] Comment: WITHIN NORMAL LIMITS ATROPHIC CELL PATTERN Recommendations [facility]NR [facility] DNR 114,,,,,, [facility] DNR DNR [facility] DNR DNR [facility] DNR DNR [facility] . [facility] Comment: ?PAP SMEARS ARE SUBJECT TO BOTH FALSE NEGATIVE AND FALSE ? POSITIVE RESULTS EVIDENCED BY DATA PUBLISHED IN THE ? MEDICAL LITERATURE. ??YOUR PATIENT'S RESULT SHOULD BE ? INTERPRETED IN THIS CONTEXT, TOGETHER WITH THE PATIENT'S ? HISTORY AND CLINICAL FINDINGS. TESTING LOCATION ? [facility] ? [address] [facility]. [address] ? PHONE NUMBERS FOR CYTOLOGY INQUIRES, INCLUDING SLIDE REQUESTS ? EXT. [id number] ?? EXT. [phone] Peace Mason MD LABORATORY [facility] from Last 3 Months or Most Recently Relevant to Health Maintenance Care Teams Social Worker Relationship Specialty Start Date End Date Monty Musa MD [facility] [address] [place] [address] PCP - General Family Medicine 08/13/21 Jatinder Tang [facility] [address] [place] [address] [facility] 08/13/21 Dayanara Bee MD [address] [place] [address] Pediatrics 12/26/14 Min Lange MD [address] [address] Neurology 03/30/16 Marlo Madsen MD [address] [place] [address] [phone] Cardiology 10/27/16 Mel Buckley, DIAZ Nurse Coordinator Physical Medicine and Rehabilitation 12/02/16 Douglas Cadet MD [address] [place] [address] Gastroenterology 08/13/21 Rosalba Pendleton APRN SAP GATHERER [address] [place] [address] 104225 Nurse Practitioner Neurology 09/05/21 Rosalba Pendleton APRN SAP GATHERER [address] [place] [address] 170675 Assigned Neuroscience Provider 11/09/21 Marlo Madsen MD [address] [place] [address] 191675 Assigned Heart and Vascular Provider 03/14/22 Abby Vasquez MD [address] [place] [address] Gastroenterology 07/16/22 Airam Hodges PA-C [address] [place] [address] Physician Director Of Learning Surgery 07/19/23 Zain Quintana MD [address] [place] [address] Assigned Surgical Provider 10/07/23 Latricia Pettit PA-C [address] [place] [address] Assigned Gastroenterology Provider 10/15/23
--- OUTSIDE RECORDS SUMMARY | 2023-12-27 14:22 | XMS_ITS | Encounter Summary ---
Author Name Unknown Organization [place] Address [address] [facility] [place] [address] Care Team Providers Care Sign Painter Helper Name Role Phone Monty Musa MD Primary Care Provider Alfonso Tang Unavailable Unavailable Dayanara Bee MD Unavailable [phone] Min Lange MD Unavailable Unavailable Marlo Madsen MD Unavailable [phone] Mel Buckley RN Unavailable [phone] Douglas Cadet MD Unavailable [phone] Rosalba Pendleton APRN MEDICATION RECONCILIATION TECHNICIAN Unavaila ble Rosalba Pendleton APRN MEDICATION RECONCILIATION TECHNICIAN Unavaila ble Marlo Madsen MD Unavailable [phone] Abby Vasquez MD Unavailable Airam Hodges PA-C Unavailable [phone] Zain Quintana MD Unavailable [phone] Latricia Pettit PA-C Unavailable [phone] Encounter Details Date Type Department Care Team (Latest Contact Info) Description 12/13/2023 Travel Social History Tobacco Use Types Packs/Day [...] Sex Assigned at Female 10/31/2021 7:59 AM CLAY BURNER Gender Identity Female 10/31/2021 7:59 AM CLAY BURNER Sexual Orientation Straight 10/31/2021 7: 59 AM CLAY BURNER documented as of this encounter Plan of Treatment Upcoming Encounters Date Type Department Care Team (Late st Contact Info) Description 01/05/2024 12:50 PM CDT Therapy Visit [address] [place] [address] Lainey Simon, PT [address] [place] [address] 01/12/2024 12:50 PM CDT Therapy Visit [address] [place] [address] Lainey Simon, PT [address] [place] [address] 01/13/2024 10:00 AM CDT Virtual Visit [facility] [address] 3rd [place] [phone] Rosalba Pendleton, STEAMBOAT PILOT [address] [place] [address] 01/20/2024 8:00 PM CDT Therapy Visit [facility] [address] [phone] 01/26/2024 12:50 PM CDT Therapy Visit [address] [address] [place] [address] [place], [place] [address] 02/09/2024 12:50 PM CDT Therapy Visit [facility] Rehabilitation Services [facility] [address] [facility] [address] [place] [address] [place] [address] [place] [address] 03/14/2024 10:30 AM CDT Office Visit [facility] [place] [address] [facility] 103 [place] [phone] Abhishek Acevedo PA-C 6[address] [facility] 103 [place] [address] 03/21/2024 11:30 AM CDT Office Visit [facility] [address] [phone] Zain Quintana MD [address] [place] [address] 815875 03/21/2024 2:30 PM CDT Virtual Visit [facility] [address] [phone] Latricia Pettit PA-C [address] [place] [address] 063005 06/07/2024 11:20 AM CDT Office Visit [facility] [address] [phone] Latricia Pettit PA-C [address] [place] [address] 352655 Abby Vasquez MD [address]09 [place] [address] documented as of this encounter Visit Diagnoses Not on filedocumented in this encounter Additional Health Concerns Assessment Noted Time PHQ-9 Depression Total Score: 12 024 12:52 PM CLAY BURNER documented as of this encounter Care Teams Sign Painter Helper Relationship Specialty Start Date End Date Monty Musa MD [facility] [address] [place] [address] PCP - General Family Medicine 08/13/21 Alfonso Tang [facility] [address] [place] [address] Family Practice 08/13/21 Dayanara Bee MD [address] [address] Pediatrics 12/26/14 Min Lange MD [address] [address] Neurology 03/30/16 Marlo Madsen MD [address] [address] Cardiology 10/27/16 Mel Buckley, DIAZ Nurse Coordinator Physical Medicine and Rehabilitation 12/02/16 Douglas Cadet MD [address] [place] [address] Gastroenterology 08/13/21 Rosalba Pendleton APRN MEDICATION RECONCILIATION TECHNICIAN [address] [facility] [place] [address] Nurse Practitioner Neurology 09/05/21 Rosalba Pendleton APRN MEDICATION RECONCILIATION TECHNICIAN 909 [facility] LU5070GY [place], [place] 887[address] Assigned Neuroscience Provider 11/09/21 Marlo Madsen MD [address] [place] [address] 75 [place], [place] 816015 Assigned Heart and Vascular Provider 03/14/22 Abby Vasquez MD [address] [place] [address] 187545 Gastroenterology 07/16/22 Airam Hodges PA-C 500 [place], [place] 9984[address] Physician Digital Color Press Operator Surgery 07/19/23 Zain Quintana MD 500 [place], [place] 144605 Assigned Surgical Provider 10/07/23 Latricia Pettit PA-C [address] [place] [address] 016775 Assigned Gastroenterology Provider 10/15/23 documented as of this encounter
--- OUTSIDE RECORDS SUMMARY | 2023-12-27 14:22 | XMS_ITS | Encounter Summary ---
Author Name Unknown Organization [place] Address [address] [place] [address] Care Team Providers Care Compressor Station Chief Engineer Name Role Phone Monty Musa MD Primary Care Provider Alfonso Tang Unavailable Unavailable Dayanara Bee MD Unavailable [phone] Min Lange MD Unavailable Unavailable Marlo Madsen MD Unavailable [phone] Mel Buckley RN Unavailable [phone] Douglas Cadet MD Unavailable [phone] Rosalba Pendleton APRN ASSISTANT IMPORT MANAGER Unavaila ble Rosalba Pendleton APRN ASSISTANT IMPORT MANAGER Unavaila ble Marlo Madsen MD Unavailable [phone] Abby Vasquez MD Unavailable Airam Hodges PA-C Unavailable [phone] Zain Quintana MD Unavailable [phone] Latricia Pettit PA-C Unavailable [phone] Encounter Details Date Type Department Care Team (Latest Contact Info) Description 12/22/2023 Travel Social History Tobacco Use Types Packs/Day [...] Sex Assigned at Female 10/31/2021 7:59 AM MIXER SLAGMAN Gender Identity Female 10/31/2021 7:59 AM MIXER SLAGMAN Sexual Orientation Straight 10/31/2021 7: 59 AM MIXER SLAGMAN documented as of this encounter Plan of Treatment Upcoming Encounters Date Type Department Care Team (Late st Contact Info) Description 01/05/2024 12:50 PM CDT Therapy Visit [address] [place] [address] Lainey Simon, PT [address] [place] [address] 01/12/2024 12:50 PM CDT Therapy Visit [address] [place] [address] Lainey Simon, PT [address] [place] [address] 225[address] 01/13/2024 10:00 AM CDT Virtual Visit [facility] Neurology Clinic [address] 3rd [place] [phone] Rosalba Pendleton, INFORMATICA MDM ARCHITECT [id number] [place] [address] 01/20/2024 8:00 PM CDT Therapy Visit [facility] Sleep Centers [address] [phone] 01/26/2024 12:50 PM CDT Therapy Visit [address] [address] [place] [address] [place], [place] [address]007 02/09/2024 12:50 PM CDT Therapy Visit [facility] Rehabilitation Services [facility] [address] [facility] [address] [place] [address] [place] [address] [place] [address] 03/14/2024 10:30 AM CDT Office Visit [facility] [place] 6363 [facility] 103 [place] [phone] Abhishek Acevedo PA-C 6363 [facility] 103 [place] [address] 03/21/2024 11:30 AM CDT Office Visit [facility] Colon and [facility]al Surgery [facility] [address] [phone] Zain Quintana MD [address] [place] [address] 537085 03/21/2024 2:30 PM CDT Virtual Visit [facility] Gastroenterology Clinic [address] [phone] Latricia Pettit PA-C [address] [place] [address] 724445 06/07/2024 11:20 AM CDT Office Visit [facility] Gastroenterology Clinic [address] [phone] Latricia Ptetit PA-C [address] [place] [address] 922785 Abby Vasquez MD 909 [place] [address] documented as of this encounter Visit Diagnoses Not on filedocumented in this encounter Additional Health Concerns Assessment Noted Time PHQ-9 Depression Total Score: 12 024 12:52 PM MIXER SLAGMAN documented as of this encounter Care Teams Compressor Station Chief Engineer Relationship Specialty Start Date End Date Monty Musa MD [facility] [address] [place] [address] PCP - General Family Medicine 08/13/21 Alfonso Tang [facility] [address] [place] [address] Family Practice 08/13/21 Dayanara Bee MD [address] [address] Pediatrics 12/26/14 Min Lange MD [address] [address] Neurology 03/30/16 Marlo Madsen MD [address] [address] Cardiology 10/27/16 Mel Buckley, DIAZ Nurse Coordinator Physical Medicine and Rehabilitation 12/02/16 Douglas Cadet MD [address] [place] [address] Gastroenterology 08/13/21 Rosalba Pendleton APRN ASSISTANT IMPORT MANAGER 909 [id number] [place] [address] Nurse Practitioner Neurology 09/05/21 Rosalba Pendleton APRN ASSISTANT IMPORT MANAGER [address] [facility] [place] [id number], [place] 978715 Assigned Neuroscience Provider 11/09/21 Marlo Madsen MD [address] [place] [address] 75 [place], [place] 729095 Assigned Heart and Vascular Provider 03/14/22 Abby Vasquez MD [address] [place] [address] 701085 Gastroenterology 07/16/22 Airam Hodges PA-C 500 [place], [place] 269475 Physician Heel Buffer Surgery 07/19/23 Zain Quintana MD 500 [place], [place] 598235 Assigned Surgical Provider 10/07/23 Latricia Pettit PA-C [address] [place] [address] 803865 Assigned Gastroenterology Provider 10/15/23 documented as of this encounter
--- OUTSIDE RECORDS SUMMARY | 2023-12-27 14:22 | XMS_ITS | Encounter Summary ---
Author Name Unknown Organization [place] Address [address] [facility] [place] [address] Care Team Providers Care Crnp Name Role Phone Monty Musa MD Primary Care Provider Alfonso Tang Unavailable Unavailable Dayanara Bee MD Unavailable [phone] Min Lange MD Unavailable Unavailable Marlo Madsen MD Unavailable [phone] Mel Buckley RN Unavailable [phone] Douglas Cadet MD Unavailable [phone] Rosalba Pendleton APRN STUDENT SUPPORT COUNSELOR Unavaila ble Rosalba Pendleton APRN STUDENT SUPPORT COUNSELOR Unavaila ble Marlo Madsen MD Unavailable [phone] Abby Vasquez MD Unavailable Airam Hodges PA-C Unavailable [phone] Zain Quintana MD Unavailable [phone] Latricia Pettit PA-C Unavailable [phone] Encounter Details Date Type Department Care Team (Late st Contact Info) Description 12/06/2023 [facility] Neurology [facility] [address] [phone] Miriam Yepez RN Social History Tobacco Use Types Packs/Day [...] Sex Assigned at Female 10/31/2021 7:59 AM ELECTRONICS RECYCLER Gender Identity Female 10/31/2021 7:59 AM ELECTRONICS RECYCLER Sexual Orientation Straight 10/31/2021 7: 59 AM ELECTRONICS RECYCLER documented as of this encounter Plan of Treatment Upcoming Encounters Date Type Department Care Team (Late st Contact Info) Description 01/05/2024 12:50 PM CDT Therapy Visit [address] 300 [place] [address] [place], [place] [id number] [place] [address] 01/12/2024 12:50 PM CDT Therapy Visit [address] [place] [address] Lainey [place], [place] [address] [place] [address] 01/13/2024 10:00 AM CDT Virtual Visit [facility] Neurology Clinic [address] [phone] Rosalba Pendleton APRN [address] [id number] [place] [address] 01/20/2024 8:00 PM CDT Therapy Visit [facility] Sleep Centers [address] [phone] 01/26/2024 12:50 PM CDT Therapy Visit [facility] [address] [facility] [address] [place] [address] [place] [address] [place] [address] 02/09/2024 12:50 PM CDT Therapy Visit [facility] [address] [place] [address] [place] [address] [place], [place] 892467 03/14/2024 10:30 AM CDT Office Visit [facility] Sleep Centers [place] [address] [place] [address] [phone] Abhishek Acevedo PA-C [address] [address] 03/21/2024 11:30 AM CDT Office Visit [facility] Colon and Rectal Surgery Clinic [address] [phone] Zain Quintana MD [address] [place] [address] 555785 03/21/2024 2:30 PM CDT Virtual Visit [facility] Gastroenterology Clinic [address] [phone] Latricia Pettit PA-C [address] [place] [address] 596395 06/07/2024 11:20 AM CDT Office Visit [facility] Gastroenterology Clinic [address] [phone] Latricia Pettit PA-C [address] [place] [address] Abby Vasquez MD [address] [place] [address] documented as of this encounter Visit Diagnoses Not on filedocumented in this encounter Additional Health Concerns Assessment Noted Time PHQ-9 Depression Total Score: 12 024 12:52 PM ELECTRONICS RECYCLER documented as of this encounter Care Teams Crnp Relationship Specialty Start Date End Date Monty Musa MD [facility] [address] [place] [address] PCP - General Family Medicine 08/13/21 Alfonso Tang [facility] [address] [place] [address] Family Practice 08/13/21 Dayanara Bee MD [address] [place] [address] Pediatrics 12/26/14 Min Lange MD [address] [place] [address] Neurology 03/30/16 Marlo Madsen MD [address] [place] [address] 903435 Cardiology 10/27/16 Mel Buckley, RN Nurse Coordinator Physical Medicine and Rehabilitation 12/02/16 Douglas Cadet MD [address] [place] [address] Gastroenterology 08/13/21 Rosalba Pendleton APRN STUDENT SUPPORT COUNSELOR [address] [place], [place] [address]806221CJ [place] [address] Nurse Practitioner Neurology 09/05/21 Rosalba Pendleton APRN STUDENT SUPPORT COUNSELOR [address] [place], [place] [address]806221[place] [address] Assigned Neuroscience Provider 11/09/21 Marlo Madsen MD [address] [place] [address] 75 [place] [address] Assigned Heart and Vascular Provider 03/14/22 Abby Vasquez MD [address] [place] [address] Gastroenterology 07/16/22 Airam Hodges PA-C [address] [place] [address] Physician Manager Ui Surgery 07/19/23 Zain Quintana MD [address] [place] [address] Assigned Surgical Provider 10/07/23 Latricia Pettit PA-C [address] [place] [address] Assigned Gastroenterology Provider 10/15/23 documented as of this encounter
--- OUTSIDE RECORDS SUMMARY | 2023-12-27 14:22 | XMS_ITS | Encounter Summary ---
Author Name Unknown Organization [place] Address [address] [facility] [place] [address] Care Team Providers Care Physical Science Technician Name Role Phone Monty Musa MD Primary Care Provider Alfonso Tang Unavailable Unavailable Dayanara Bee MD Unavailable [phone] Min Lange MD Unavailable Unavailable Marlo Madsen MD Unavailable [phone] Mel Buckley RN Unavailable [phone] Douglas Cadet MD Unavailable [phone] Rosalba Pendleton APRN VERIFYING MACHINE OPERATOR Unavaila ble Rosalba Pendleton APRN VERIFYING MACHINE OPERATOR Unavaila ble Marlo Madsen MD Unavailable [phone] Abby Vasquez MD Unavailable Airam Hodges PA-C Unavailable [phone] Zain Quintana MD Unavailable [phone] Latricia Pettit PA-C Unavailable [phone] Reason for Visit * Rehab Therapy Integrated Services (Routine) - Authorized Specialty Diagnoses / Procedures Referred By Emily t Referred To Contact Diagnoses Slow transit constipation [facility] [address] [place] [phone] Referral ID Status Reason Start Date Expiration Date V isits Requested Visits Authorized [id number] Authorized 09/13/2023 09/12/2024 365 365 Encounter Details Date Type Department Care Team (Latest Contact Info) Description 12/13/2023 10:50 AM CDT Therapy Visit [address] [address] Lainey Simon, PT [address] [place] [address] Slow transit constipation (Primary Dx) Social History [...] Sex Assigned at Female 10/31/2021 7:59 AM CARROTING MACHINE OPERATOR Gender Identity Female 10/31/2021 7:59 AM CARROTING MACHINE OPERATOR Sexual Orientation Straight 10/31/2021 7: 59 AM CARROTING MACHINE OPERATOR documented as of this encounter Plan of Treatment Upcoming Encounters Date Type Department Care Team (Late st Contact Info) Description 01/05/2024 12:50 PM CDT Therapy Visit [address] [address] Lainey Simon PT [address] [place] [address] 01/12/2024 12:50 PM CDT Therapy Visit [address] [address] Lainey Simon PT [address] [place] [address] 01/13/2024 10:00 AM CDT Virtual Visit [facility] Neurology Clinic [address] [place] [phone] Rosalba Pendleton APRN VERIFYING MACHINE OPERATOR [address] [place] [address] [id number] [place] [address] 01/20/2024 8:00 PM CDT Therapy Visit [facility] Sleep [address] [phone] 01/26/2024 12:50 PM CDT Therapy Visit [address] [address] L[place], [place] [address] [place] [address] 120137 02/09/2024 12:50 PM CDT Therapy Visit [address] [address] [place] [address] [place], [place] 892537 03/14/2024 10:30 AM CDT Office Visit [address] [phone] Abhishek Acevedo PA-C [address] [address] 03/21/2024 11:30 AM CDT Office Visit [facility] Colon and Rectal Surgery Clinic [address] [place] [phone] Zain Quintana MD [address] [place] [address] 03/21/2024 2:30 PM CDT Virtual Visit [facility] Gastroenterology Clinic [address] [phone] Latricia Pettit PA-C [address] [place] [address] 748405 06/07/2024 11:20 AM CDT Office Visit [facility] Gastroenterology Clinic [address] [phone] Latricia Pettit PA-C [address] [place] [address] Abby Vasquez MD [address] [place] [address] 840845 documented as of this encounter Visit Diagnoses Diagnosis Slow transit constipation- Primary documented in this encounter Additional Health Concerns Assessment Noted Time PHQ-9 Depression Total Score: 12 024 12:52 PM CARROTING MACHINE OPERATOR documented as of this encounter Care Teams Physical Science Technician Relationship Specialty Start Date End Date Monty Musa MD [facility] [address] [place] [address] PCP - General Family Medicine 08/13/21 Alfonso Tang [facility] [address] [place] [address] Family Practice 08/13/21 Dayanara Bee MD [address] 756135 Pediatrics 12/26/14 Min Lange MD [address] [address] Neurology 03/30/16 Marlo Madsen MD [address] [address] Cardiology 10/27/16 Mel Buckley, RN Nurse Coordinator Physical Medicine and Rehabilitation 12/02/16 Douglas Cadet MD [address] [place] [address] Gastroenterology 08/13/21 Rosalba Pendleton APRN VERIFYING MACHINE OPERATOR [address] [place] [address] 796655 Nurse Practitioner Neurology 09/05/21 Rosalba Pendleton APRN VERIFYING MACHINE OPERATOR [address] [place] [address] 979675 Assigned Neuroscience Provider 11/09/21 Marlo Madsen MD [address] [place] [address] Assigned Heart and Vascular Provider 03/14/22 Abby Vasquez MD [address] [place] [address] Gastroenterology 07/16/22 Airam Hodges PA-C [address] [place] [address] Physician Senior Sql Server Dba Surgery 07/19/23 Zain Quintana MD [address] [place] [address] 92422 Assigned Surgical Provider 10/07/23 Latricia Pettit PA-C 9 [place] [address] Assigned Gastroenterology Provider 10/15/23 documented as of this encounter
--- OUTSIDE RECORDS SUMMARY | 2023-12-27 14:22 | XMS_ITS | Encounter Summary ---
Author Name Unknown Organization [place] Address [address] [facility] [place] [address] Care Team Providers Care Maintenance Shop Manager Name Role Phone Monty Musa MD Primary Care Provider Alfonso Tang Unavailable Unavailable Dayanara Bee MD Unavailable [phone] Min Lange MD Unavailable Unavailable Marlo Madsen MD Unavailable [phone] Mel Buckley RN Unavailable [phone] Douglas Cadet MD Unavailable Rosalba Pendleton APRN OVEN OPERATOR Unavaila ble Rosalba Pendleton APRN OVEN OPERATOR Unavaila ble Marlo Madsen MD Unavailable [phone] Abby Vasquez MD Unavailable Airam Hodges PA-C Unavailable [phone] Zain Quintana MD Unavailable [phone] Latricia Pettit PA-C Unavailable [phone] Encounter Details Date Type Department Care Team (Latest Contact Info) Description 12/01/2023 Travel Social History Tobacco Use Types Packs/Day [...] Sex Assigned at Female 10/31/2021 7:59 AM DERRICK FOLLOWER Gender Identity Female 10/31/2021 7:59 AM DERRICK FOLLOWER Sexual Orientation Straight 10/31/2021 7: 59 AM DERRICK FOLLOWER documented as of this encounter Plan of Treatment Upcoming Encounters Date Type Department Care Team (Late st Contact Info) Description 01/05/2024 12:50 PM CDT Therapy Visit [address] [place] [address] Lainey Simon, PT [address] [place] [address] 01/12/2024 12:50 PM CDT Therapy Visit [address] [place] [address] Lainey Simon, PT [address] [place] [address] 01/13/2024 10:00 AM CDT Virtual Visit [facility] Neurology Clinic [address] 3rd [place] [phone] Rosalba Pendleton, TANK SYSTEMS MAINTAINER [address] [place] [address] 01/20/2024 8:00 PM CDT Therapy Visit [facility] Sleep Centers [address] [phone] 01/26/2024 12:50 PM CDT Therapy Visit [address] [address] [place] [address] [place], [place] 836047 02/09/2024 12:50 PM CDT Therapy Visit [facility] Rehabilitation Services [facility] [address] [facility] [address] [place] [address] [place] [address] [place] [address] 03/14/2024 10:30 AM CDT Office Visit [facility] Sleep Centers [place] 6363 [facility] 103 [place] [phone] Abhishek Acevedo PA-C 6363 [facility] 103 [place] [address] 03/21/2024 11:30 AM CDT Office Visit [facility] Colon and Rectal Surgery Clinic [address] [phone] Zain Quintana MD [address] [place] [address] 702175 03/21/2024 2:30 PM CDT Virtual Visit [facility] Gastroenterology Clinic [address] [phone] Latricia Pettit PA-C [address] [place] [address] 521765 06/07/2024 11:20 AM CDT Office Visit [facility] Gastroenterology Clinic [address] [phone] Latricia Pettit PA-C [address] [place] [address] 486885 Abby Vasquez MD 909 [place] [address] documented as of this encounter Visit Diagnoses Not on filedocumented in this encounter Additional Health Concerns Assessment Noted Time PHQ-9 Depression Total Score: 12 024 12:52 PM DERRICK FOLLOWER documented as of this encounter Care Teams Maintenance Shop Manager Relationship Specialty Start Date End Date Monty Musa MD [facility] [address] [place] [address] PCP - General Family Medicine 08/13/21 Alfonso Tang [facility] [address] [place] [address] Family Practice 08/13/21 Dayanara Bee MD [address] [address] Pediatrics 12/26/14 Min Lange MD [address] [address] Neurology 03/30/16 Marlo Madsen MD [address] [address] Cardiology 10/27/16 Mel Buckley, DIAZ Nurse Coordinator Physical Medicine and Rehabilitation 12/02/16 Douglas Cadet MD [address] [place] [address] Gastroenterology 08/13/21 Rosalba Pendleton APRN OVEN OPERATOR 909 [id number] [place] [address] Nurse Practitioner Neurology 09/05/21 Rosalba Pendleton APRN OVEN OPERATOR 909 [facility] [id number] [place], [place] 667385 Assigned Neuroscience Provider 11/09/21 Marlo Madsen MD [address] [place] [address] 75 [place], [place] 597575 Assigned Heart and Vascular Provider 03/14/22 Abby Vasquez MD [address] [place] [address] 809745 Gastroenterology 07/16/22 Airam Hodges PA-C 500 [place], [place] 713265 Physician Peanut Separator Surgery 07/19/23 Zain Quintana MD 500 [place], [place] 613915 Assigned Surgical Provider 10/07/23 Latricia Pettit PA-C [address] [place] [address] 307835 Assigned Gastroenterology Provider 10/15/23 documented as of this encounter
--- OUTSIDE RECORDS SUMMARY | 2023-12-27 14:22 | XMS_ITS | Clinical Summary ---
Author Name Unknown Organization [facility] Address [address] [facility] [place] [address] Care Team Providers Care Nurses Educator Name Role Phone Monty Musa MD Primary Care Provider [phone] Jatinder Tang Unavailable Unavailable Dayanara Bee MD Unavailable [phone] Min Lange MD Unavailable Unavailable Marlo Madsen MD Unavailable [phone] Mel Buckley RN Unavailable [phone] Douglas Cadet MD Unavailable Rosalba Pendleton APRN ASSOCIATE PROFESSOR OF PHYSICS Unavaila ble Rosalba Pendleton APRN ASSOCIATE PROFESSOR OF PHYSICS Unavaila ble Marlo Madsen MD Unavailable [phone] Abby Vasquez MD Unavailable Airam Hodges PA-C Unavailable [phone] Zain Quintana MD Unavailable [phone] Latricia Pettit PA-C Unavailable [phone] Allergies Active Allergy Reactions Criticality Noted Date [...] aura and without status migrainosus, not intractable [place] 10 mg in nostril at onset of [...] Date Type Department Care Team Description 12/22/2023 12:50 PM CDT Therapy Visit [facility] [address] [place] [address] Lainey Simon, PT Slow transit constipation (Primary Dx) 12/22/2023 Travel 12/13/2023 10:50 AM CDT Therapy Visit [address] [address] Alfred Lainey, PT Slow transit constipation (Primary Dx) 12/13/2023 Travel 12/06/2023 MyC Medical Advice [facility] [address] [place] [address] Miriam Yepez RN 12/01/2023 10:20 AM CDT Therapy Visit [address] [address] Alfred Lainey, PT Slow transit constipation (Primary Dx) 12/01/2023 Travel 11/24/2023 10:40 AM CDT Office Visit [facility] [address] [address] Abby Vasquez MD Constipation, unspecified constipation type (Primary Dx); Pelvic floor dysfunction 11/24/2023 Telephone [facility] [address] [address] Sheri Edmonds RN 11/24/2023 Travel 11/18/2023 Telephone [facility] [address] [phone] Miriam Yepez RN Prior Auth - Medication (AIMOVIG 140 MG/ML injection-PA NOT NEEDED/ALLOWED ) 11/17/2023 11:00 AM AIR BRUSH DECORATOR Therapy Visit [facility] [address] [place] [address] Lainey Simon PT Slow transit constipation (Primary Dx) 11/17/2023 Refill [facility] [address] [address] Rosalba Pendleton APRN ASSOCIATE PROFESSOR OF PHYSICS Refill Request 11/17/2023 MyC Medical Advice [facility] [address] [address] Abby Vasquez MD 11/17/2023 Travel 11/17/2023 Refill [facility] [address] [address] Rosalba Pendleton APRN ASSOCIATE PROFESSOR OF PHYSICS Medication Refill 11/11/2023 MyC Medical Advice [facility] [address] [address] Vivian Carter 11/08/2023 2:40 PM AIR BRUSH DECORATOR Therapy Visit [facility] [address] [place] [address] Lainey Simon, PT Slow transit constipation (Primary Dx) 11/08/2023 Travel 10/28/2023 10:50 AM AIR BRUSH DECORATOR Therapy Visit [facility] [address] [facility] [address] [place] [address] Zain Quintana MD Wild, Abigail, PT Slow transit constipation (Primary Dx) 10/28/2023 Travel 10/26/2023 1:00 PM AIR BRUSH DECORATOR Virtual Visit [facility] [address] [place] [address] [address] [place] [phone] Latricia Pettit PA-C Constipation, unspecified constipation type; Pelvic floor dysfunction 10/25/2023 Telephone [facility] [address] [place] [phone] Rosalba Pendleton APRN CNP Prior Authorization 10/21/2023 11:30 AM AIR BRUSH DECORATOR Therapy Visit [facility] [address] [facility] [address] [place] [address] Zain Quintana MD Wild, Abigail, PT Slow transit constipation 10/21/2023 Travel 10/18/2023 Travel 10/18/2023 PRE VISIT [facility] [address] [place] [phone] Airam Hodges PA-C Previsit 10/13/2023 MyC Medical Advice [facility] [address] [place] [address] [address] [place] [phone] Vivian Carter 10/01/2023 9:30 AM AIR BRUSH DECORATOR Ancillary Procedure [facility] [address] [place] [phone] Zain Quintana MD Slow transit constipation 10/01/2023 Travel 09/29/2023 9:30 AM AIR BRUSH DECORATOR Ancillary Procedure [facility] [address] [facility] [address] [place] [phone] Zain Quintana MD Slow transit constipation 09/29/2023 Travel 09/27/2023 9:30 AM AIR BRUSH DECORATOR Ancillary Procedure [facility] [address] [facility] [address] [place] [phone] Zain Quintana MD Slow transit constipation 09/27/2023 Travel from Last 3 Months Immunizations Name [...] Assigned at Female 10/31/2021 7:59 AM AIR BRUSH DECORATOR Gender Identity Female 10/31/2021 7:59 AM AIR BRUSH DECORATOR Sexual Orientation Straight 10/31/2021 7: 59 AM AIR BRUSH DECORATOR Last Filed Vital Signs Vital Sign Reading [...] Description 01/05/2024 12:50 PM CDT Therapy Visit [address] [address] Lainey Simon, PT [address] [place] [address] 934267 01/12/2024 12:50 PM CDT Therapy Visit [address] [address] aLiney Simon, PT [address] [place] [address] 132897 01/13/2024 10:00 AM CDT Virtual Visit [facility] [address] [place] [address] Rosalba Pendleton, CAT SWAMPER ASSOCIATE PROFESSOR OF PHYSICS [address] [place] [address] [id number] [place] [address] 01/20/2024 8:00 PM CDT Therapy Visit [facility] [address] [phone] 01/26/2024 12:50 PM CDT Therapy Visit [facility] [address] [place] [address] [address] [place] [address] [place] [address] [place], [place] 9[address] 02/09/2024 12:50 PM CDT Therapy Visit [place] [phone] [facility] 300 [place] [address] [place] [address] [place] [address] 03/14/2024 10:30 AM CDT Office Visit [facility] [address] [phone] Abhishek Acevedo PA-C [address] [address] 03/21/2024 11:30 AM CDT Office Visit [facility] [address] [address] Zain Quintana MD [address] [place] [address] 986185 03/21/2024 2:30 PM CDT Virtual Visit [facility] [address] [address] Latricia Pettit PA-C [address] [place] [address] 789325 06/07/2024 11:20 AM CDT Office Visit [facility] [address] 4th [place] [phone] Latricia Pettit PA-C [address] [place] [address] [phone] Abby Vasquez MD [address] [place] [address] [phone] Health Maintenance Due Date Last Done Comments ADVANCE CARE PLANNING 1991 ANNUAL REVIEW OF HM ORDERS 1991 CT COLONOGRAPHY 1991 FIT 1991 FLEX SIG 1991 LIPID 1991 sDNA (Cologuard) 1991 HIV SCREENING 2006 HEPATITIS C SCREENING 2009 MEDICARE ANNUAL WELLNESS VISIT 2009 TSH W/FREE T4 REFLEX 03/04/2023 03/04/2022, 10/30/19 14 DTAP/TDAP/TD IMMUNIZATION (8 - Td or Tdap) 03/24/2023 03/24/2013, 11/16/2003, 11/16/2003, Additional history exists PAP 08/20/2026 08/20/2023, 04/2023, [...] Completed 06/18/2023, , 06/04/2021, Additional history exists PHQ-2 (once per calendar year) Completed 10/26/2023, 10/26/2023, 07/15/2023, Additional history exists MENINGITIS IMMUNIZATION Aged Out [...] 1 VIEW Routine 10/01/2023 8:5 8 AM AIR BRUSH DECORATOR Slow transit constipation XR ABDOMEN 1 VIEW Routine 09/29/2023 8:5 7 AM AIR BRUSH DECORATOR Slow transit constipation XR ABDOMEN 1 VIEW Routine 09/27/2023 9:0 2 AM AIR BRUSH DECORATOR Slow transit constipation TSH Routine 03/04/2022 12:35 PM CDT Irritable bowel syndrome with constipation COLONOSCOPY - HIM SCAN 10/16/2021 12:00 AM AIR BRUSH DECORATOR HCL PAP SMEAR Routine 02/05/1999 1:18 PM CDT Gynecologic Examination from Last 3 Months or Most Recently Relevant to Health Maintenance Results * XR Abdomen 1 View (10/01/2023 8:58 AM AIR BRUSH DECORATOR) Only the most recent of3 resultswithin the time period is included. Anatomical Region Laterality Modality Abdomen/Pelvis Computed Radiogr aphy Impressions 10/01/2023 9:33 AM AIR BRUSH DECORATOR IMPRESSION: Two Sitz markers remain in the rectum. Remainder no longer present. Small to moderate amount of stool. ??Nonobstructed bowel gas pattern. JATINDER ARREOLA MD Narrative 10/01/2023 9:33 AM AIR BRUSH DECORATOR ABDOMEN ONE VIEW ??10/01/2023 8:58 AM HISTORY: [...] - 4.00 mU/L 03/04/2022 1:08 PM CDT [facility] Blood STRUCTURE OF RIGHT UPPER LIMB / Unknown Venipuncture / Unknown 03/04/2022 12:35 PM CDT 03/04/2022 12:37 PM CDT Douglas Cadet MD LAB - BLOOD O RDERABLES Performing Organization Address [facility]/State/ZIP Co de Phone Number [facility] [address] [place] [address] * COLONOSCOPY - HIM SCAN (10/16/2021 12:00 AM AIR BRUSH DECORATOR) 10/16/2021 Provider Outside PROCEDURES * PAP SMEAR (02/05/1999 1:18 PM CDT) Unlabelled DNR [facility] Biopsy Sent DNR [facility] Source VAG,CERV,E NDOCERV [facility] LMP POST [facility] PARA 3 [facility] 2 [facility] Clinical History DNR [facility] Therapy DNR [facility] Last Pap Diagnosis WITHIN NORMAL LIMITS [facility] PAP Date [id number] [facility] Specimen # DNR [facility] Tissue DNR [facility] Tissue Date DNR [facility] Statement of Adequacy [facility] Comment: SATISFACTORY FOR INTERPRETATION POST MENOPAUSAL PATIENT. ??NO ENDOCERVICAL CELLS SEEN. General Categorization DNR [facility] Descriptive Diagnosis [facility] Comment: WITHIN NORMAL LIMITS ATROPHIC CELL PATTERN Recommendations DNR QUES [facility] DNR 114,,,,,, [facility] DNR DNR [facility] DNR DNR [facility] DNR DNR [facility] . [facility] Comment: ?PAP SMEARS ARE SUBJECT TO BOTH FALSE NEGATIVE AND FALSE ? POSITIVE RESULTS EVIDENCED BY DATA PUBLISHED IN THE ? MEDICAL LITERATURE. ??YOUR PATIENT'S RESULT SHOULD BE ? INTERPRETED IN THIS CONTEXT, TOGETHER WITH THE PATIENT'S ? HISTORY AND CLINICAL FINDINGS. TESTING LOCATION ? THIS [facility] ? [address] [facility]. [address] ? PHONE NUMBERS FOR CYTOLOGY INQUIRES, INCLUDING SLIDE REQUESTS ? EXT. [id number] ?? EXT. [phone] Peace Mason MD LABORATORY Performing Organization Address City/State/[facility] Co de Phone Number [facility] from Last 3 Months or Most Recently Relevant to Health Maintenance Care Teams Nurses Educator Relationship Specialty Start Date End Date Monty Musa MD [facility] [address] [place] [address] PCP - General Family Medicine 08/13/21 Jatinder Tang [facility] [address] [place] [address] Family Practice 08/13/21 Dayanara Bee MD [address] 780655 Pediatrics 12/26/14 Min Lange MD [address] [place] [address] Neurology 03/30/16 Marlo Madsen MD [address] [place] [address] Cardiology 10/27/16 Mel Buckley, RN Nurse Coordinator Physical Medicine and Rehabilitation 12/02/16 Douglas Cadet MD [address] [place] [address] Gastroenterology 08/13/21 Rosalba Pendleton APRN ASSOCIATE PROFESSOR OF PHYSICS [address] [phone] Nurse Practitioner Neurology 09/05/21 Rosalba Pendleton APRN ASSOCIATE PROFESSOR OF PHYSICS [address] 325115 Assigned Neuroscience Provider 11/09/21 Marlo Madsen MD [address] [place] [address] 540805 Assigned Heart and Vascular Provider 03/14/22 Abby Vasquez MD [address] [place] [address] 324205 Gastroenterology 07/16/22 Airam Hodges PA-C [address] [place] [address] 039355 Physician Csw Surgery 07/19/23 Zain Quintana MD [address] [place] [address] 111895 Assigned Surgical Provider 10/07/23 Latricia Pettit PA-C [address] [place] [address] 992405 Assigned Gastroenterology Provider 10/15/23
--- OUTSIDE RECORDS SUMMARY | 2023-12-27 14:23 | XMS_ITS | Encounter Summary ---
Author Name Unknown Organization [facility] Address [address] [place] [address] Care Team Providers Care Digital Forensics Examiner Name Role Phone Monty Musa MD Primary Care Provider [phone] Alfonso Tang Unavailable Unavailable Dayanara Bee MD Unavailable [phone] Min Lange MD Unavailable Unavailable Marlo Madsen MD Unavailable [phone] Mel Buckley RN Unavailable [phone] Douglas Cadet MD Unavailable [phone] Rosalba Pendleton APRN COMPRESSOR STATION OPERATOR Unavaila ble Rosalba Pendleton APRN COMPRESSOR STATION OPERATOR Unavaila ble Marlo Madsen MD Unavailable [phone] Abby Vasquez MD Unavailable Airam Hodges PA-C Unavailable [phone] Zain Quintana MD Unavailable [phone] Latricia Pettit PA-C Unavailable [phone] Reason for Visit * Rehab Therapy Integrated Services (Routine) - Authorized Specialty Diagnoses / Procedures Referred By Emily t Referred To Contact Diagnoses Slow transit constipation [facility] [address] [place] [phone] Referral ID Status Reason Start Date Expiration Date V isits Requested Visits Authorized [id number] Authorized 09/13/2023 09/12/2024 365 365 Encounter Details Date Type Department Care Team (Latest Contact Info) Description 12/01/2023 10:20 AM CDT Therapy Visit [address] [address] Lainey Simon, PT [address] [place] [address] Slow transit constipation (Primary Dx) Social History [...] Sex Assigned at Female 10/31/2021 7:59 AM HOUSE REPAIRER Gender Identity Female 10/31/2021 7:59 AM HOUSE REPAIRER Sexual Orientation Straight 10/31/2021 7: 59 AM HOUSE REPAIRER documented as of this encounter Plan of Treatment Upcoming Encounters Date Type Department Care Team (Late st Contact Info) Description 01/05/2024 12:50 PM CDT Therapy Visit [address] [address] Lainey Simon PT [address] [place] [address] 01/12/2024 12:50 PM CDT Therapy Visit [address] [address] Lainey Simon PT [address] [place] [address] 01/13/2024 10:00 AM CDT Virtual Visit [facility] [address] [place] [phone] Rosalba Pendleton APRN COMPRESSOR STATION OPERATOR [address] [place] [address] [id number] [place] [address] 01/20/2024 8:00 PM CDT Therapy Visit [facility] Sleep [address] [phone] 01/26/2024 12:50 PM CDT Therapy Visit [address] [address] Lain[place], [place] [address] [place] [address] 971577 02/09/2024 12:50 PM CDT Therapy Visit [address] [address] [place] [address] [place], [place] 411197 03/14/2024 10:30 AM CDT Office Visit [address] [phone] Abhishek Acevedo PA-C [address] [address] 03/21/2024 11:30 AM CDT Office Visit [facility] [address] [place] [phone] Zain Quintana MD [address] [place] [address] 03/21/2024 2:30 PM CDT Virtual Visit [facility] [address] [phone] Latricia Pettit PA-C [address] [place] [address] [phone] 06/07/2024 11:20 AM CDT Office Visit [facility] [address] [phone] Latricia Pettit PA-C [address] [place] [address] Abby Vasquez MD [address] [place] [address] 432115 documented as of this encounter Visit Diagnoses Diagnosis Slow transit constipation- Primary documented in this encounter Additional Health Concerns Assessment Noted Time PHQ-9 Depression Total Score: 12 024 12:52 PM HOUSE REPAIRER documented as of this encounter Care Teams Digital Forensics Examiner Relationship Specialty Start Date End Date Monty Musa MD [facility] [address] [place] [address] PCP - General Family Medicine 08/13/21 Alfonso Tang [facility] [address] [place] [address] Family Practice 08/13/21 Dayanara Bee MD [address] 553985 Pediatrics 12/26/14 Min Lange MD [address] [address] Neurology 03/30/16 Marlo Madsen MD [address] [address] Cardiology 10/27/16 Mel Buckley, RN Nurse Coordinator Physical Medicine and Rehabilitation 12/02/16 Douglas Cadet MD [address] [place] [address] Gastroenterology 08/13/21 Rosalba Pendleton APRN COMPRESSOR STATION OPERATOR [address] [place] [address] 730695 Nurse Practitioner Neurology 09/05/21 Rosalba Pendleton APRN COMPRESSOR STATION OPERATOR [address] [place] [address] 797185 Assigned Neuroscience Provider 11/09/21 Marlo Madsen MD [address] [place] [address] Assigned Heart and Vascular Provider 03/14/22 Abby Vasquez MD [address] [place] [address] Gastroenterology 07/16/22 Airam Hodges PA-C [address] [place] [address] Physician Room Attendant Surgery 07/19/23 Zain Quintana MD [address] [place] [address] Assigned Surgical Provider 10/07/23 Latricia Pettit PA-C [address] [place] [address] Assigned Gastroenterology Provider 10/15/23 documented as of this encounter
--- OUTSIDE RECORDS SUMMARY | 2023-12-27 14:23 | XMS_ITS | Encounter Summary ---
Author Name Unknown Organization [place] Address [address] [facility] [place] [address] Care Team Providers Care Master Yacht Name Role Phone Monty Musa MD Primary Care Provider [phone] Alfonso Tang Unavailable Unavailable Dayanara Bee MD Unavailable [phone] Min Lange MD Unavailable Unavailable Marlo Madsen MD Unavailable [phone] Mel Buckley RN Unavailable [phone] Douglas Cadet MD Unavailable Rosalba Pendleton APRN TERRAZZO MECHANIC HELPER Unavaila ble Rosalba Pendleton APRN TERRAZZO MECHANIC HELPER Unavaila ble Marlo Madsen MD Unavailable [phone] Abby Vasquez MD Unavailable Airam Hodges PA-C Unavailable [phone] Zain Quintana MD Unavailable [phone] Latricia Pettit PA-C Unavailable [phone] Encounter Details Date Type Department Care Team (Latest Contact Info) Description 11/08/2023 Travel Social History Tobacco Use Types Packs/Day [...] Sex Assigned at Female 10/31/2021 7:59 AM KNOT CUTTER Gender Identity Female 10/31/2021 7:59 AM KNOT CUTTER Sexual Orientation Straight 10/31/2021 7: 59 AM KNOT CUTTER documented as of this encounter Plan of Treatment Upcoming Encounters Date Type Department Care Team (Late st Contact Info) Description 01/05/2024 12:50 PM CDT Therapy Visit [address] [place] [address] Lainey Simon, PT [address] [place] [address] 01/12/2024 12:50 PM CDT Therapy Visit [address] [place] [address] Lainey Simon, PT [address] [place] [address] 01/13/2024 10:00 AM CDT Virtual Visit [facility] [address] 3rd [place] [phone] Rosalba Pendleton, DERMATOLOGY NURSE [address] [place] [address] 01/20/2024 8:00 PM CDT Therapy Visit [facility] [address] [phone] 01/26/2024 12:50 PM CDT Therapy Visit [address] [address] [place] [address] [place], [place] 247027 02/09/2024 12:50 PM CDT Therapy Visit [facility] [address] [facility] [address] [place] [address] [place] [address] [place] [address] 03/14/2024 10:30 AM CDT Office Visit [facility] [place] [address] [facility] 103 [place] [phone] Abhishek Acevedo PA-C 6363 [facility] 103 [place] [address] 03/21/2024 11:30 AM CDT Office Visit [facility] [address] [phone] Zain Quintana MD [address] [place] [address] [phone] 03/21/2024 2:30 PM CDT Virtual Visit [facility] [address] [phone] Latricia Pettit PA-C [address] [place] [address] 934895 06/07/2024 11:20 AM CDT Office Visit [facility] [address] [phone] Latricia Pettit PA-C [address] [place] [address] 402995 Abby Vasquez MD 909 [place] [address] documented as of this encounter Visit Diagnoses Not on filedocumented in this encounter Additional Health Concerns Assessment Noted Time PHQ-9 Depression Total Score: 12 024 12:52 PM KNOT CUTTER documented as of this encounter Care Teams Master Yacht Relationship Specialty Start Date End Date Monty Musa MD [facility] [address] [place] [address] PCP - General Family Medicine 08/13/21 Alfonso Tang [facility] [address] [place] [address] Family Practice 08/13/21 Dayanara Bee MD [address] [address] Pediatrics 12/26/14 Min Lange MD [address] [address] Neurology 03/30/16 Marlo Madsen MD [address] [address] Cardiology 10/27/16 Mel Buckley, DIAZ Nurse Coordinator Physical Medicine and Rehabilitation 12/02/16 Douglas Cadet MD [address] [place] [address] Gastroenterology 08/13/21 Rosalba Pendleton APRN TERRAZZO MECHANIC HELPER 909 [id number] [place] [address] Nurse Practitioner Neurology 09/05/21 Rosalba Pendleton APRN TERRAZZO MECHANIC HELPER 909 [facility] [id number] [place], [place] 068075 Assigned Neuroscience Provider 11/09/21 Marlo Madsen MD [address] [place] [address] 75 [place], [place] [phone] Assigned Heart and Vascular Provider 03/14/22 Abby Vasquez MD [address] [place] [address] 677135 Gastroenterology 07/16/22 Airam Hodges PA-C 500 [place], [place] 993415 Physician Marine Engineering Technicians Surgery 07/19/23 Zian Quintana MD 500 [place], [place] 994905 Assigned Surgical Provider 10/07/23 Latricia Pettit PA-C [address] [place] [address] 709385 Assigned Gastroenterology Provider 10/15/23 documented as of this encounter
--- OUTSIDE RECORDS SUMMARY | 2023-12-27 14:23 | XMS_ITS | Encounter Summary ---
Author Name Unknown Organization [place] Address [address] [facility] [place] [address] Care Team Providers Care Ice Seller Name Role Phone Monty Musa MD Primary Care Provider [phone] Alfonso Tang Unavailable Unavailable Dayanara Bee MD Unavailable [phone] Min Lange MD Unavailable Unavailable Marlo Madsen MD Unavailable [phone] Mel Buckley RN Unavailable [phone] Douglas Cadet MD Unavailable [phone] Rosalba Pendleton APRN LABORATORY SUPERVISOR Unavaila ble Rosalba Pendleton APRN LABORATORY SUPERVISOR Unavaila ble Marlo Madsen MD Unavailable [phone] Abby Vasquez MD Unavailable Airam Hodges PA-C Unavailable [phone] Zain Quintana MD Unavailable [phone] Latricia Pettit PA-C Unavailable [phone] Reason for Visit * Rehab Therapy Integrated Services (Routine) - Authorized Specialty Diagnoses / Procedures Referred By Emily t Referred To Contact Diagnoses Slow transit constipation [facility] [address] [place] [phone] Referral ID Status Reason Start Date Expiration Date V isits Requested Visits Authorized [id number] Authorized 09/13/2023 09/12/2024 365 365 Encounter Details Date Type Department Care Team (Latest Contact Info) Description 11/08/2023 2:40 PM CONE MARKER Therapy Visit [address] [address] Lainey Simon, PT [address] [place] [address] Slow transit constipation (Primary Dx) Social History [...] Sex Assigned at Female 10/31/2021 7:59 AM CONE MARKER Gender Identity Female 10/31/2021 7:59 AM CONE MARKER Sexual Orientation Straight 10/31/2021 7: 59 AM CONE MARKER documented as of this encounter Plan of Treatment Upcoming Encounters Date Type Department Care Team (Late st Contact Info) Description 01/05/2024 12:50 PM CDT Therapy Visit [address] [address] Lainey Simon PT [address] [place] [address] 01/12/2024 12:50 PM CDT Therapy Visit [address] [address] Lainey Simon PT [address] [place] [address] 01/13/2024 10:00 AM CDT Virtual Visit [facility] Neurology Clinic [address] 3rd [place] [phone] Rosalba Pendleton APRN LABORATORY SUPERVISOR [address] [place] [address] [id number] [place] [address] 01/20/2024 8:00 PM CDT Therapy Visit [facility] Sleep [address] [phone] 01/26/2024 12:50 PM CDT Therapy Visit [address] [address] Lain[place], [place] [id number] [place] [address] 02/09/2024 12:50 PM CDT Therapy Visit [address] [address] Lainey [place], [place] [id number] [place] [address] 580207 03/14/2024 10:30 AM CDT Office Visit [address] [phone] Abhishek Acevedo PA-C [address] [address] 03/21/2024 11:30 AM CDT Office Visit [facility] Colon and Rectal Surgery Clinic [address] 4th [place] [phone] Zain Quintana MD [address] [place] [address] 03/21/2024 2:30 PM CDT Virtual Visit [facility] Gastroenterology Clinic [address] [phone] Latricia Pettit PA-C [address] [place] [address] 401965 06/07/2024 11:20 AM CDT Office Visit [facility] Gastroenterology Clinic [address] [phone] Latricia Pettit PA-C [address] [place] [address] Abby Vasquez MD [address] [place] [address] 194485 documented as of this encounter Visit Diagnoses Diagnosis Slow transit constipation- Primary documented in this encounter Additional Health Concerns Assessment Noted Time PHQ-9 Depression Total Score: 12 024 12:52 PM CONE MARKER documented as of this encounter Care Teams Ice Seller Relationship Specialty Start Date End Date Monty Musa MD [facility] [address] [place] [address] PCP - General Family Medicine 08/13/21 Alfonso Tang [facility] [address] [place] [address] Family Practice 08/13/21 Dayanara Bee MD [address] 820825 Pediatrics 12/26/14 Min Lange MD [address] [address] Neurology 03/30/16 Marlo Madsen MD [address] [address] Cardiology 10/27/16 Mel Buckley, RN Nurse Coordinator Physical Medicine and Rehabilitation 12/02/16 Douglas Cadet MD [address] [place] [address] Gastroenterology 08/13/21 Rosalba Pendleton APRN LABORATORY SUPERVISOR [address] [place] [address] 390545 Nurse Practitioner Neurology 09/05/21 Rosalba Pendleton APRN LABORATORY SUPERVISOR [address] [place] [address] 999315 Assigned Neuroscience Provider 11/09/21 Marlo Madsen MD [address] [place] [address] 75 [place], [place] 144305 Assigned Heart and Vascular Provider 03/14/22 Abby Vasquez MD [address] [place] [address] 066855 Gastroenterology 07/16/22 Airam Hodges PA-C [address] [place] [address] Physician Assistant Store Manager Operations Surgery 07/19/23 Zain Quintana MD [address] [place] [address] Assigned Surgical Provider 10/07/23 Latricia Pettit PA-C 90 [place] [address] Assigned Gastroenterology Provider 10/15/23 documented as of this encounter
--- OUTSIDE RECORDS SUMMARY | 2023-12-27 14:23 | XMS_ITS | Encounter Summary ---
Author Name Unknown Organization [place] Address [address] [facility] [place] [address] Care Team Providers Care Hospice Clinical Marketer Name Role Phone Monty Musa MD Primary Care Provider [phone] Alfonso Tang Unavailable Unavailable Dayanara Bee MD Unavailable [phone] iMn Lange MD Unavailable Unavailable Marlo Madsen MD Unavailable [phone] Mel Buckley RN Unavailable [phone] Douglas Cadet MD Unavailable Rosalba Pendleton APRN INTERNET SYSTEMS ADMINISTRATOR Unavaila ble Rosalba Pendleton APRN INTERNET SYSTEMS ADMINISTRATOR Unavaila ble Marlo Madsen MD Unavailable [phone] Abby Vasquez MD Unavailable Airam Hodges PA-C Unavailable [phone] Zain Quintana MD Unavailable [phone] Latricia Pettit PA-C Unavailable [phone] Reason for Visit * Reason Onset Date Comments Refill Request 11/17/2023 Encounter Details Date Type Department Care Team (Late st Contact Info) Description 11/17/2023 Refill [facility] Neurology [facility] [place] [address] [facility] 3rd [place] [phone] Rosalba Pendleton APRN INTERNET SYSTEMS ADMINISTRATOR [address] [facility] [id number] [place] [address] Refill Request Social History Tobacco Use Types Packs/Day Years [...] Sex Assigned at Female 10/31/2021 7:59 AM EDGE INKER Gender Identity Female 10/31/2021 7:59 AM EDGE INKER Sexual Orientation Straight 10/31/2021 7: 59 AM EDGE INKER documented as of this encounter Miscellaneous Notes * Telephone Encounter - Art Canseco - 11/17/2023 12:09 PM CST RX Authorization Medication: AIMOVIG 140 MG/ML injection ?? Date last refill ordered: 11/03/2022 ?? Quantity ordered: 1 mL ?? # refills: 11 ?? Date of last clinic visit with ordering provider: 07/15/2023 ?? Date of next clinic visit with ordering provider: 01/13/2024 ?? All pertinent protocol data (lab date/result): ?? Include pertinent information from patients message: INKER documented in this encounter Plan of Treatment Upcoming Encounters Date Type Department Care Team (Late st Contact Info) Description 01/05/2024 12:50 PM CDT Therapy Visit [facility] [address] [facility] [address] [place], [place] 940517 [place] [address] [place] [address] 01/12/2024 12:50 PM CDT Therapy Visit [address] [address] Lainey Simon, PT [address] [place] [address] 01/13/2024 10:00 AM CDT Virtual Visit [facility] Neurology Clinic [address] 3rd [place] [phone] Rosalba Pendleton, SOFTWARE SUPPORT ENGINEER [address] [id number] [place], [place] [address] 01/20/2024 8:00 PM CDT Therapy Visit [address] [phone] 01/26/2024 12:50 PM CDT Therapy Visit [address] [address] Lainey Simon, PT [address] [place] [address] 02/09/2024 12:50 PM CDT Therapy Visit [address] [address] Lainey Simon, PT [address] [place] [address] 03/14/2024 10:30 AM CDT Office Visit [place] [address] [place] [address] Abhishek Acevedo PA-C [address] [id number] 03/21/2024 11:30 AM CDT Office Visit [facility] [address] [phone] Zain Quintana MD [address] [place] [address] 03/21/2024 2:30 PM CDT Virtual Visit [facility] Gastroenterology Clinic [address] [phone] Latricia Pettit PA-C [address] [place] [address] 545585 06/07/2024 11:20 AM CDT Office Visit [facility] Gastro[facility]ology [facility] [address] [phone] Latricia Pettit PA-C [address] [place] [address] 653495 Abby Vasquez MD [address] [place] [address] 424435 documented as of this encounter Visit Diagnoses Diagnosis Intractable 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 Chronic migraine without aura, with intractable migraine, so stated, without mention of status migrainosus documented in this encounter Additional Health Concerns Assessment Noted Time PHQ-9 Depression Total Score: 12 024 12:52 PM EDGE INKER documented as of this encounter Care Teams Hospice Clinical Marketer Relationship Specialty Start Date End Date Monty Musa MD [facility] [address] [place] [address] PCP - General Family Medicine 08/13/21 Alfonso Tang [facility] [address] [place] [address] Family Practice 08/13/21 Dayanara Bee MD [address] [address] Pediatrics 12/26/14 Min Lange MD [address] [address] Neurology 03/30/16 Marlo Madsen MD [address] [place] [address] Cardiology 10/27/16 Mel Buckley, RN Nurse Coordinator Physical Medicine and Rehabilitation 12/02/16 Douglas Cadet MD [address] [place] [address] Gastroenterology 08/13/21 Rosalba Pendleton APRN INTERNET SYSTEMS ADMINISTRATOR [address] [place] [address] 663965 Nurse Practitioner Neurology 09/05/21 Rosalba Pendleton APRN INTERNET SYSTEMS ADMINISTRATOR [address] [place] [address]48 Assigned Neuroscience Provider 11/09/21 Marlo Madsen MD [address] [place] [address] Assigned Heart and Vascular Provider 03/14/22 Abby Vasquez MD [address] [place] [address] Gastroenterology 07/16/22 Airam Hodges PA-C 500 [place] [address] Physician Billboard Mechanic Surgery 07/19/23 Zain Quintana MD 500 [place] [address] Assigned Surgical Provider 10/07/23 Latricia Pettit PA-C 909 [place] [address] Assigned Gastroenterology Provider 10/15/23 documented as of this encounter
--- OUTSIDE RECORDS SUMMARY | 2023-12-27 14:23 | XMS_ITS | Encounter Summary ---
Author Name Unknown Organization [place] Address [address] [facility] [place] [address] Care Team Providers Care Ginseng Farmer Name Role Phone Monty Musa MD Primary Care Provider Alfonso Tang Unavailable Unavailable Dayanara Bee MD Unavailable [phone] Min Lange MD Unavailable Unavailable Marlo Madsen MD Unavailable [phone] Mel Buckley RN Unavailable [phone] Douglas Cadet MD Unavailable Rosalba Pendleton APRN WELDER MACHINE OPERATOR Unavaila ble Rosalba Pendleton APRN WELDER MACHINE OPERATOR Unavaila ble Marlo Madsen MD Unavailable [phone] Abby Vasquez MD Unavailable Airam Hodges PA-C Unavailable [phone] Zain Quintana MD Unavailable [phone] Latricia Pettit-C Unavailable [phone] Reason for Visit * Reason Onset Date Comments Prior Auth - Medication 11/18/2023 AIMOVIG 140 MG/ML injection-PA NOT NEEDED/ALLOWED Encounter Details Date Type Department Care Team (Late st Contact Info) Description 11/18/2023 Telephone [facility] Neurology Clinic [address] 3rd [place] [address] Miriam Yepez RN Prior Auth - Medication (AIMOVIG 140 MG/ML injection-PA NOT NEEDED/ALLOWED ) Social History Tobacco Use Types Packs/Day [...] Sex Assigned at Female 10/31/2021 7:59 AM FEDERAL MEDIATOR Gender Identity Female 10/31/2021 7:59 AM FEDERAL MEDIATOR Sexual Orientation Straight 10/31/2021 7: 59 AM FEDERAL MEDIATOR documented as of this encounter Miscellaneous Notes * Telephone Encounter - Miriam Yepez RN - 12/06/2023 12:52 PM CDT Sent [facility] to patient with message. Advised to call insurance to see which preventative migraine medication is covered under her insurance and to let us know. * Telephone Encounter - Ed Ching - 11/30/2023 4:05 PM CDT Images from the original note were not included. Prior Authorization Not Allowed per Insurance, Medication Exclusion From Patients Benefit Plan Medication: AIMOVIG 140 MG/ML injection-PA NOT NEEDED/ALLOWED Insurance Company: [employer] Non-Specialty PA's - Expected CoPay: Pharmacy Filling the Rx: [id number] [place] [id number] Pharmacy Notified: No Patient Notified: No Called insurance and Rep Marysol Cabrales stated that requested medication is not covered and is a Medication Exclusion from patients benefit plan. Excluded Medication, NO PA and Appeal is available for Review. Patient may receive medication but would have to pay out of pocket for medication. * Telephone Encounter - Miriam Yepez RN - 11/18/2023 8:56 AM CST Prior Authorization Retail Medication Request Medication/Dose: AIMOVIG 140 MG/ML injection ICD code (if different than what is on RX): Previously Tried and Failed: Botox, zonisamide, atrovastatin, sumatriptan, eletriptan, rizatriptan, zolmitriptan, topiramate, gabapentin, Rationale: migraine Has been using Aimovig - effective Insurance Name: [employer] Pharmacy Information (if different than what is on RX) Name: Phone: RAL MEDIATOR documented in this encounter Plan of Treatment Upcoming Encounters Date Type Department Care Team (Late st Contact Info) Description 01/05/2024 12:50 PM CDT Therapy Visit [address] [address] Lainey Simon, PT [address] [place] [address] 01/12/2024 12:50 PM CDT Therapy Visit [address] [address] Lainey Simon, PT [address] [place] [address] 01/13/2024 10:00 AM CDT Virtual Visit [facility] Neurology Clinic [address] 3rd [place] [address] Rosalba Pendleton APRN [address] [id number] [place] [address] 01/20/2024 8:00 PM CDT Therapy Visit [address] [place] [phone] 01/26/2024 12:50 PM CDT Therapy Visit [facility] [address] [facility] [address] [place] [address] [place] [address] [place], [place] [phone] 02/09/2024 12:50 PM CDT Therapy Visit [facility] [address] [facility] 300 [place] [address] [place] [address] [place], [place] 058617 03/14/2024 10:30 AM CDT Office Visit [address] [phone] Abhishek Acevedo PA-C [address] [address] 03/21/2024 11:30 AM CDT Office Visit [facility] Colon and Rectal Surgery Clinic [address] [phone] Zain Quintana MD [address] [place] [address] 885035 03/21/2024 2:30 PM CDT Virtual Visit [facility] Gastroenterology Clinic [address] [phone] Latricia Pettit PA-C [address] [place] [address] 06/07/2024 11:20 AM CDT Office Visit [facility] Gastroenterology Clinic [address] 4th [place] [phone] Latricia Pettit PA-C [address] [place] [address] 087545 Abby Vasquez MD [address] [place] [address] [phone] documented as of this encounter Visit Diagnoses Not on filedocumented in this encounter Additional Health Concerns Assessment Noted Time PHQ-9 Depression Total Score: 12 024 12:52 PM FEDERAL MEDIATOR documented as of this encounter Care Teams Ginseng Farmer Relationship Specialty Start Date End Date Monty Musa MD [facility] [address] [place] [address] PCP - General Family Medicine 08/13/21 Alfonso Tang [facility] [address] [place] [address] Family Practice 08/13/21 Dayanara Bee MD [address] [place] [address] Pediatrics 12/26/14 Min Lange MD [address] [place] [address] Neurology 03/30/16 Marlo Madsen MD [address] [place] [address] Cardiology 10/27/16 Mel Buckley, RN Nurse Coordinator Physical Medicine and Rehabilitation 12/02/16 Douglas Cadet MD [address] [place] [address] 108645 Gastroenterology 08/13/21 Rosalba Pendleton APRN WELDER MACHINE OPERATOR [address] [place] [address] 022115 Nurse Practitioner Neurology 09/05/21 Rosalba Pendleton APRN WELDER MACHINE OPERATOR [address] [place] [address] Assigned Neuroscience Provider 11/09/21 Marlo Madsen MD [address] [place] [address] 970895 Assigned Heart and Vascular Provider 03/14/22 Abby Vasquez MD [address] [place] [address] 422075 Gastroenterology 07/16/22 Airam Hodges PA-C 500 [place], [place] 514995 Physician Environmental Research Scientist Surgery 07/19/23 Zain Quintana MD [address] [place] [address] 134205 Assigned Surgical Provider 10/07/23 Latricia Pettit PA-C [address] [place] [address] 504145 Assigned Gastroenterology Provider 10/15/23 documented as of this encounter
--- OUTSIDE RECORDS SUMMARY | 2023-12-27 14:23 | XMS_ITS | Encounter Summary ---
Author Name Unknown Organization [place] Address [address] [facility] [place] [address] Care Team Providers Care Income Tax Preparer Name Role Phone Monty Musa MD Primary Care Provider Alfonso Tang Unavailable Unavailable Dayanara Bee MD Unavailable [phone] Min Lange MD Unavailable Unavailable Marlo Madsen MD Unavailable [phone] Mel Buckley RN Unavailable [phone] Douglas Cadet MD Unavailable Rosalba Pendleton APRN STUDIO OPERATION ENGINEER Unavaila ble Rosalba Pendleton APRN STUDIO OPERATION ENGINEER Unavaila ble Marlo Madsen MD Unavailable [phone] Abby Vasquez MD Unavailable Airam Hodges PA-C Unavailable [phone] Zain Quintana MD Unavailable [phone] Latricia Pettit PA-C Unavailable [phone] Encounter Details Date Type Department Care Team (Latest Contact Info) Description 11/17/2023 Travel Social History Tobacco Use Types Packs/Day [...] Sex Assigned at Female 10/31/2021 7:59 AM PEANUT CLEANER Gender Identity Female 10/31/2021 7:59 AM PEANUT CLEANER Sexual Orientation Straight 10/31/2021 7: 59 AM PEANUT CLEANER documented as of this encounter Plan of Treatment Upcoming Encounters Date Type Department Care Team (Late st Contact Info) Description 01/05/2024 12:50 PM CDT Therapy Visit [address] [place] [address] Lainey Simon, PT [address] [place] [address] 01/12/2024 12:50 PM CDT Therapy Visit [address] [place] [address] Lainey Simon, PT [address] [place] [address] 01/13/2024 10:00 AM CDT Virtual Visit [facility] Neurology Clinic [address] 3rd [place] [phone] Rsoalba Pendleton, SPORTS PHYSIOLOGIST [address] [place] [address] 01/20/2024 8:00 PM CDT Therapy Visit [facility] Centers [address] [phone] 01/26/2024 12:50 PM CDT Therapy Visit [address] [address] [place] [address] [place], [place] 590857 02/09/2024 12:50 PM CDT Therapy Visit [facility] Rehabilitation Services [facility] [address] [facility] [address] [place] [address] [place] [address] [place] [address] 03/14/2024 10:30 AM CDT Office Visit [facility] Sleep Centers [place] 6363 [facility] 103 [place] [phone] Abhishek Acevedo PA-C 6363 [facility] 103 [place] [address] 03/21/2024 11:30 AM CDT Office Visit [facility] Colon and Rectal Surgery Clinic [address] [phone] Zain Quintana MD [address] [place] [address] 071625 03/21/2024 2:30 PM CDT Virtual Visit [facility] Gastroenterology Clinic [address] [phone] Latricia Pettit PA-C [address] [place] [address] 962895 06/07/2024 11:20 AM CDT Office Visit [facility] Gastroenterology Clinic [address] [phone] Latricia Pettit PA-C [address] [place] [address] 787525 Abby Vasquez MD 909 [place] [address] documented as of this encounter Visit Diagnoses Not on filedocumented in this encounter Additional Health Concerns Assessment Noted Time PHQ-9 Depression Total Score: 12 024 12:52 PM PEANUT CLEANER documented as of this encounter Care Teams Income Tax Preparer Relationship Specialty Start Date End Date Monty Musa MD [facility] [address] [place] [address] PCP - General Family Medicine 08/13/21 Alfonso Tang [facility] [address] [place] [address] Family Practice 08/13/21 Dayanara Bee MD [address] [address] Pediatrics 12/26/14 Min Lange MD [address] [address] Neurology 03/30/16 Marlo Madsen MD [address] [address] Cardiology 10/27/16 Mel Buckley, DIAZ Nurse Coordinator Physical Medicine and Rehabilitation 12/02/16 Douglas Cadet MD [address] [place] [address] Gastroenterology 08/13/21 Rosalba Pendleton APRN STUDIO OPERATION ENGINEER 909 [id number] [place] [address] Nurse Practitioner Neurology 09/05/21 Rosalba Pendleton APRN STUDIO OPERATION ENGINEER 909 [facility] [id number] [place], [place] 870555 Assigned Neuroscience Provider 11/09/21 Marlo Madsen MD [address] [place] [address] 75 [place], [place] 323355 Assigned Heart and Vascular Provider 03/14/22 Abby Vasquez MD [address] [place] [address] 625085 Gastroenterology 07/16/22 Airam Hodges PA-C 500 [place], [place] 910645 Physician Party Plan Sales Agent Surgery 07/19/23 Zain Quintana MD 500 [place], [place] 601225 Assigned Surgical Provider 10/07/23 Latricia Pettit PA-C [address] [place] [address] 037515 Assigned Gastroenterology Provider 10/15/23 documented as of this encounter
--- OUTSIDE RECORDS SUMMARY | 2023-12-27 14:23 | XMS_ITS | Encounter Summary ---
Author Name Unknown Organization [place] Address [address] [facility] [place] [address] Care Team Providers Care Director Of Contracts Name Role Phone Monty Musa MD Primary Care Provider Alfonso Tang Unavailable Unavailable Dayanara Bee MD Unavailable [phone] Min Lange MD Unavailable Unavailable Marlo Madsen MD Unavailable [phone] Mel Buckley RN Unavailable [phone] Douglas Cadet MD Unavailable [phone] Rosalba Pendleton APRN OPERATIONS OFFICER TRUST DEPARTMENT Unavaila ble Rosalba Pendleton APRN OPERATIONS OFFICER TRUST DEPARTMENT Unavaila ble Marlo Madsen MD Unavailable [phone] Abby Vasquez MD Unavailable Airam Hodges PA-C Unavailable [phone] Zain Quintana MD Unavailable [phone] Latricia Pettit PA-C Unavailable [phone] Reason for Visit * Rehab Therapy Integrated Services (Routine) - Authorized Specialty Diagnoses / Procedures Referred By Emily t Referred To Contact Diagnoses Slow transit constipation [facility] [address] [place] [phone] Referral ID Status Reason Start Date Expiration Date V isits Requested Visits Authorized [id number] Authorized 09/13/2023 09/12/2024 365 365 Encounter Details Date Type Department Care Team (Latest Contact Info) Description 10/28/2023 10:50 AM BASTING PULLER Therapy Visit [address] [address] Zain Quintana MD [address] [place] [address] Lainey Simon, PT [address] [place] [address] [phone] Slow transit constipation (Primary Dx) Social History [...] Sex Assigned at Female 10/31/2021 7:59 AM BASTING PULLER Gender Identity Female 10/31/2021 7:59 AM BASTING PULLER Sexual Orientation Straight 10/31/2021 7: 59 AM BASTING PULLER documented as of this encounter Plan of Treatment Upcoming Encounters Date Type Department Care Team (Late st Contact Info) Description 01/05/2024 12:50 PM CDT Therapy Visit [address] [place] [address] Lainey Simon PT [address] [place] [address] [phone] 01/12/2024 12:50 PM CDT Therapy Visit [address] [address] Lainey Simon, PT [address] [place] [address], [place] [address] 01/13/2024 10:00 AM CDT Virtual Visit [facility] Neurology Clinic [address] [place] [phone] Rosalba Pendleton, STOGY ROLLER OPERATIONS OFFICER TRUST DEPARTMENT [address] [place] [address] [id number] [place] [address] 01/20/2024 8:00 PM CDT Therapy Visit [facility] Sleep [address] [phone] 01/26/2024 12:50 PM CDT Therapy Visit [address] [address] Lainey Simon, PT [address] [place] [address] 02/09/2024 12:50 PM CDT Therapy Visit [address] [address] Lainey Simon, PT [address] [place] [address] 03/14/2024 10:30 AM CDT Office Visit [address] [phone] Abhishek Acevedo PA-C [address] [phone] 03/21/2024 11:30 AM CDT Office Visit [facility] Colon and Rectal Surgery Clinic [address] 4th [place] [phone] Zain Quintana MD [address] [place] [address] [phone] 03/21/2024 2:30 PM CDT Virtual Visit [facility] Gastroenterology Clinic [address] [phone] Latricia Pettit PA-C [address] [place] [address] [phone] 06/07/2024 11:20 AM CDT Office Visit [facility] Gastroenterology Clinic [address] [phone] Latricia Pettit PA-C [address] [place] [address] [phone] Abby Vasquez MD [address] [place] [address] [phone] documented as of this encounter Visit Diagnoses Diagnosis Slow transit constipation- Primary documented in this encounter Additional Health Concerns Assessment Noted Time PHQ-9 Depression Total Score: 12 024 12:52 PM BASTING PULLER documented as of this encounter Care Teams Director Of Contracts Relationship Specialty Start Date End Date Motny Musa MD [facility] [address] [place] [address] PCP - General Family Medicine 08/13/21 Alfonso Tang [facility] [address] [place] [address] Family Practice 08/13/21 Dayanara Bee MD [address] [place] [address] Pediatrics 12/26/14 Min Lange MD [address] [address] Neurology 03/30/16 Marlo Madsen MD [address] [place] [address] Cardiology 10/27/16 Mel Buckley, RN Nurse Coordinator Physical Medicine and Rehabilitation 12/02/16 Douglas Cadet MD [address] [place] [address] Gastroenterology 08/13/21 Rosalba Pendleton APRN OPERATIONS OFFICER TRUST DEPARTMENT [address] [place] [address] [phone] Nurse Practitioner Neurology 09/05/21 Rosalba Pendleton APRN OPERATIONS OFFICER TRUST DEPARTMENT [address] [place] [address] [phone] Assigned Neuroscience Provider 11/09/21 Marlo Madsen MD [address] [place] [address] Assigned Heart and Vascular Provider 03/14/22 Abby Vasquez MD [address] [place] [address] Gastroenterology 07/16/22 Airam Hodges PA-C [address] [place] [address] 522225 Physician Management Trainer Surgery 07/19/23 Zain Quintana MD [address] [place], [place] [phone] Assigned Surgical Provider 10/07/23 Latricia Pettit PA-C [address] [place] [address] Assigned Gastroenterology Provider 10/15/23 documented as of this encounter
--- OUTSIDE RECORDS SUMMARY | 2023-12-27 14:23 | XMS_ITS | Encounter Summary ---
Author Name Unknown Organization [place] Address [address] [facility] [place] [address] Care Team Providers Care Mosaic Technician Name Role Phone Monty Musa MD Primary Care Provider Alfonso Tang Unavailable Unavailable Dayanara Bee MD Unavailable [phone] Min Lange MD Unavailable Unavailable Marlo Madsen MD Unavailable [phone] Mel Buckley RN Unavailable [phone] Douglas Cadet MD Unavailable Rosalba Pendleton APRN RAKING MACHINE OPERATOR Unavaila ble Rosalba Pendleton APRN RAKING MACHINE OPERATOR Unavaila ble Marlo Madsen MD Unavailable [phone] Abby Vasquez MD Unavailable Airam Hodges PA-C Unavailable [phone] Zain Quintana MD Unavailable [phone] Latricia Pettit PA-C Unavailable [phone] Encounter Details Date Type Department Care Team (Late st Contact Info) Description 11/11/2023 [facility] Gastroenterology Clinic [place] [address] [facility] [address]th [place] [phone] Vivian Carter Social History Tobacco Use Types [...] Sex Assigned at Female 10/31/2021 7:59 AM PROCESS CONTROL SUPERVISOR Gender Identity Female 10/31/2021 7:59 AM PROCESS CONTROL SUPERVISOR Sexual Orientation Straight 10/31/2021 7: 59 AM PROCESS CONTROL SUPERVISOR documented as of this encounter Plan of Treatment Upcoming Encounters Date Type Department Care Team (Late st Contact Info) Description 01/05/2024 12:50 PM CDT Therapy Visit [address] [place] [address] Lainey Simon, PT [address] [place] [address] 01/12/2024 12:50 PM CDT Therapy Visit [address] [place] [address] Lainey Simon, PT [address] [place] [address] 01/13/2024 10:00 AM CDT Virtual Visit [facility] Neurology Clinic [address] [place] [phone] Rosalba Pendleton APRN [address] [id number] [place] [address] 01/20/2024 8:00 PM CDT Therapy Visit [facility] Sleep Centers [address] [place] [phone] 01/26/2024 12:50 PM CDT Therapy Visit [facility] [place] [address] [facility] [address] [place] [address] [place] [address] [place] [address] 02/09/2024 12:50 PM CDT Therapy Visit [facility] [place] [address] [facility] [address] [place] [address] [place] [address] [place], [place] 850947 03/14/2024 10:30 AM CDT Office Visit [facility] Sleep Centers [place] [address] [place] [phone] Abhishek Acevedo PA-C [address] [address] 03/21/2024 11:30 AM CDT Office Visit [facility]al [facility] [address] [phone] Zain Quintana MD [address] [place] [address] [phone] 03/21/2024 2:30 PM CDT Virtual Visit [facility] Gastroenterology Clinic [address] [phone] Latricia Pettit PA-C [address] [place] [address] [phone] 06/07/2024 11:20 AM CDT Office Visit [facility] Gastroenterology Clinic [address] [phone] Latricia Pettit PA-C [address] [place] [address] Abby Vasquez MD [address] [place] [address] documented as of this encounter Visit Diagnoses Not on filedocumented in this encounter Additional Health Concerns Assessment Noted Time PHQ-9 Depression Total Score: 12 024 12:52 PM PROCESS CONTROL SUPERVISOR documented as of this encounter Care Teams Mosaic Technician Relationship Specialty Start Date End Date Monty Musa MD [facility] [address] [place] [address] PCP - General Family Medicine 08/13/21 Alfonso Tang [facility] [address] [place] [address] Family Practice 08/13/21 Dayanara Bee MD [address] [place] [address] Pediatrics 12/26/14 Min Lange MD [address] [place] [address] Neurology 03/30/16 Marlo Madsen MD [address] [place] [address] [phone] Cardiology 10/27/16 Mle Buckley, RN Nurse Coordinator Physical Medicine and Rehabilitation 12/02/16 Douglas Cadet MD [address] [place] [address] Gastroenterology 08/13/21 Rosalba Pendleton APRN RAKING MACHINE OPERATOR [address] [place], [place] [id number] [address] Nurse Practitioner Neurology 09/05/21 Rosalba Pendleton APRN RAKING MACHINE OPERATOR [address] [place], [place] [address], [place] [address] Assigned Neuroscience Provider 11/09/21 Marlo Madsen MD [address] [place] [address] [address] [place] [address] Assigned Heart and Vascular Provider 03/14/22 Abby Vasquez MD [address] [place] [address] Gastroenterology 07/16/22 Airam Hodges PA-C [address] [place] [address] Physician Press Assistant And Feeder Surgery 07/19/23 Zain Quintana MD [address] [place] [address] Assigned Surgical Provider 10/07/23 Latricia Pettit PA-C [address] [place] [address] Assigned Gastroenterology Provider 10/15/23 documented as of this encounter
--- OUTSIDE RECORDS SUMMARY | 2023-12-27 14:23 | XMS_ITS | Encounter Summary ---
Author Name Unknown Organization [place] Address [address] [facility] [place] [address] Care Team Providers Care Stick Welder Name Role Phone Monty Musa MD Primary Care Provider [phone] Alfonso Tang Unavailable Unavailable Dayanara Bee MD Unavailable [phone] Min Lange MD Unavailable Unavailable Marlo Madsen MD Unavailable [phone] Mel Buckley RN Unavailable [phone] Douglas Cadet MD Unavailable Rosalba Pendleton APRN CARPET JOURNEYMAN Unavaila ble Rosalba Pendleton APRN CARPET JOURNEYMAN Unavaila ble Marlo Madsen MD Unavailable [phone] Abby Vasquez MD Unavailable Airam Hodges PA-C Unavailable [phone] Zain Quintana MD Unavailable [phone] Latricia Pettit PA-C Unavailable [phone] Reason for Visit * Reason Comments Follow Up Encounter Details Date Type Department Care Team (Latest Contact Info) Description 11/24/2023 10:40 AM CDT Office Visit [facility] [address] [place] [address] Abby Vasquez MD [address] [place] [address] Constipation, unspecified constipation type (Primary Dx); Pelvic floor dysfunction Social History Tobacco Use [...] Sex Assigned at Female 10/31/2021 7:59 AM CALL CENTER OPERATOR Gender Identity Female 10/31/2021 7:59 AM CALL CENTER OPERATOR Sexual Orientation Straight 10/31/2021 7: 59 AM CALL CENTER OPERATOR documented as of this encounter Last Filed Vital Signs Vital Sign Reading Time Taken Comments Blood Pressure 136/93 11/24/2023 10:34 AM CDT Pulse 75 11/24/2023 10:34 AM CDT Temperature - - Respiratory Rate - - Oxygen Saturation 98% 11/24/2023 10:34 AM CDT Inhaled Oxygen Concentration - - Weight 82.7 kg (182 lb 6.4 oz) 11/24/2023 10:34 AM CDT Height 167.6 cm (5' 6) 11/24/2023 10:34 AM CDT Body Mass Index 29.44 11/24/2023 10:34 AM CDT documented in this encounter Patient Instructions * Patient Instructions* Abby Vasquez MD - 11/24/2023 10:40 AM CDT - continue Trulance daily - will reorder - increase magnesium to 1000 mg daily - increase Miralax to 2 capfuls daily - ok to increase Miralax to 3-4 capfuls daily if backed up - continue action plan of enema if no BM for 3-4 days with partial bowel cleanout if no BM for 5+ days - ok from GI perspective for use of tap water enemas instead of salt water - continue with supplemental fiber as you are - continue your excellent work with PT - follow-up in GI clinic as already scheduled If you have any questions, please don't hesitate to contact me through our GI RN Carton Counter Feeder, Sheri Edmonds, at . documented in this encounter Progress Notes * Abby Vasquez MD - 11/24/2023 10:40 AM CDT GI CLINIC VISIT CC: follow-up ASSESSMENT/PLAN: #Constipation #Pelvic Floor Dysfunction As previously noted, chronic constipation with pelvic floor dysfunction s/p biofeedback with limited improvement. Now undergoing intensive PT and noting some gains. In regards to constipation, loss of response to Amitiza and Linzess (less frequent BMs, requiring addition of osmotic laxatives but still having days without BMs and presentation to ED). Is currentlyon Trulance with some additional osmotic laxatives and stooling adequately. Bowel regimen as below w ith action plan for periods of increased symptoms/decreased stool output. She did meet with Dr. Quintana of [facility] (09/21/23) to discuss what is involved in surgery should current measures fail. She is hopeful that ongoing PT work and medications will be sufficient. #Colorectal Cancer Screening Due for repeat colonoscopy in 2026. - continue Trulance daily - will reorder - increase magnesium to 1000 mg daily - increase Miralax to 2 capfuls daily - ok to increase Miralax to 3-4 capfuls daily if backed up - continue action plan of enema if no BM for 3-4 days with partial bowel cleanout if no BM for 5+ days - ok from GI perspective for use of tap water enemas instead of salt water - continue with supplemental fiber as you are - continue your excellent work with PT - follow-up in GI clinic as already scheduled It was a pleasure to participate in the care of this patient; please contact us with any further questions. A total of 23 [id number] minutes was spent with this patient, >50% of which was counseling regarding the above delineated issues. An additional 15 minutes was spent on the date of the encounter doing chart review, documentation, care coordination, and further activities as noted above. Abby Vasquez MD Export Packerjinriksha driver Division of Gastroenterology, Hepatology and Nutrition [facility] HPI: Ms Latricia Hatch is a very pleasant 33 yo female with dysautonomia, frequent migraine HAs, chronic diffuse abdominal pain, constipation, nausea, and prior adenomatous polyp who returns to GI clinic forfollow-up of her constipation. She was previously seen by Dr. Dawson and Dr. Vasquez [place] to [place] after getting . She moved back to [place] and re-established with our practice in 02/2022. Her last visit with this press writer was 07/14/23 and she was most recently seen by KENDRICK Coto on 10/26/23. Summarized/taken from prior documentation: For constipation work-up, [facility]. Testing revealed high resting and squeeze pressures on anorectal manometry as well as a blunted tolerable volume on the balloon test. EMG and defecography were both consistent with nonrelaxation of the pelvic floor. Noanatomic issues were identified and she underwent pelvic floor PT for several weeks. She has had prior colonoscopies (father diagnosed with colon cancer at the age of 49). Colonoscopy at our institution was in 2016 with 2 small hyperplastic polyps resected. She subsequently had another colonoscopy in [place] which she reports was normal. In early 2021, she had a colonoscopy in [place] with afew small polyps removed - one was normal colon tissue and two were hyperplastic polyps. Recommended follow-up is for 2026 due to family history with a two-day prep. Prior TSH testing was normal, butrecently this has changed (see below). Sitz marker study done in Sep 2023; she was off of bowel meds for two days prior. Interestingly had a really good week with 4 BMs leading up to the Sitz marker.Though had moderate to large stool burden on the day 1 XR. Had two markers left in rectum on day 5. For nausea work-up, Gastric emptying study 05/04/2022 was normal. Nausea has been felt to be tied toperiods of worse constipation. For treatment - Linzess around 2013 initially led to a BMs every other day. In 2016, she moved to [place] and stopped Linzess as she felt her constipation was under good control until 2021. Was taken gummy fibersupplement - Amitiza 8 mcg BID in 2021 (insurance initially declined Linzess) was also using Miralax BID, Ducolax, Fleets enema, and mg citrate as needed. Amitiza dosing increased, eventually lost effect. - Linzess restarted and used with magnesium --> lost effect - Trulance started Jul 2023 and initially very helpful, over time has added more medications along with it to induce BMs (see below) Since her last GI clinic visit, Ms. Hatch has started pelvic floor therapy. She is going once a week and in December will go every other week. She relays that she's been working with therapist on internal work and pressure points. For home exercises she has been using a wand on her pressure points as well as doing repeated exercises and stretches. She continues to use the squatty potty. She is tolerating the exercises, but acknowledges she feels really tight and is working on loosening her pelvic musculature being more aware of her muscles and when to relax to aid in defecation. She feels likeact of stooling is going better and is noting less anal fissures/tears (maybe one in the last 6 weeks as opposed to every week). Ms. Hatch just started doing daily enemas as per her PT protocol. The first two days had BMs spontaneously, then had BMs with enema. Last two days had no BMs with enemas and none spontaneously. She is tracking her fiber intake (typically is getting 30 gm a day). Before the new enema regimen in the last few days, she was having 2-3 BMs a week. Meds: Trulance once daily, Mag 500 mg if BM that day, 1000 mg if hasn't. Miralax 1 capful in the morning, if had BM then day before. If not will do 2 capfuls Miralax. If hasn't gone for 3-4 days willdo an enema, if longer does a partial bowel cleanout (8 capfuls of Miralax). Has done a partial bowel cleanout twice in the last two months. Of note, she has a new diagnosis of hypothyroidism (new development with prior normal thyroid testing). She has been on levothyroxine for the past few weeks PROBLEM LIST Patient Active Problem List Diagnosis Date Noted Irritable bowel syndrome without diarrhea 04/15/2016 Priority: Medium Syncope 01/25/2014 Priority: Medium Intractable 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 aura 10/05/2013 Priority: Medium Problem list name updated by automated process. 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 Priority: Medium Abdominal pain, generalized 10/05/2013 Priority: Medium PERTINENT MEDICATIONS: Current Outpatient Medications Medication atorvastatin (LIPITOR) 10 MG tablet clonazePAM (KLONOPIN) 0.5 MG tablet DULoxetine (CYMBALTA) 30 MG capsule erenumab-aooe (AIMOVIG) 140 MG/ML injection fludrocortisone (FLORINEF) 0.1 MG tablet hydrOXYzine (ATARAX) 50 MG tablet levothyroxine (SYNTHROID/LEVOTHROID) 25 MCG tablet midodrine (PROAMATINE) 5 MG tablet ondansetron (ZOFRAN ODT) 4 MG ODT tab order for DME plecanatide (TRULANCE) 3 MG tablet prochlorperazine (COMPAZINE) 5 MG tablet Zavegepant HCl 10 MG/ACT SOLN ZOLMitriptan (ZOMIG-ZMT) 5 MG ODT No current facility-administered medications for this visit. PHYSICAL EXAMINATION: Vitals BP (!) 136/93 Pulse 75 Ht 1.676 m (5' 6) Wt 82.7 kg (182 lb 6.4 oz) SpO2 98% BMI 29.44 kg/m?? Wt Wt Readings from Last 2 Encounters: 11/24/23 82.7 kg (182 lb 6.4 oz) 09/15/23 80.1 kg (176 lb 9.6 oz) Gen: Pt sitting up in NAD, interactive and cooperative on exam Eyes: sclerae anicteric, no injection ENT: MMM Skin: Warm, dry, no jaundice Neuro: alert, oriented, answers questions appropriately PERTINENT STUDIES: Lab on 09/17/2023 Component Date Value Ref Range Status Ferritin 09/17/2023 40 6 - 175 ng/mL Final documented in this encounter Nursing Notes * Vivian Carter - 11/24/2023 10:40 AM CDT Chief Complaint Patient presents with Follow Up Vitals: 11/24/23 1034 BP: (!) 136/93 Pulse: 75 SpO2: 98% Weight: 82.7 kg (182 lb 6.4 oz) Height: 1.676 m (5' 6) Body mass index is 29.44 kg/m??. Vivian Logic documented in this encounter Plan of Treatment Upcoming Encounters Date Type Department Care Team (Late st Contact Info) Description 01/05/2024 12:50 PM CDT Therapy Visit [address] [address] Lainey Simon, PT [address] [place] [address] 01/12/2024 12:50 PM CDT Therapy Visit [address] [address] Lainey Simon, PT [address] [place] [address] 01/13/2024 10:00 AM CDT Virtual Visit [facility] [address] 3rd [place] [address] Rosalba Pendleton APRN [facility] [id number] [address] 01/20/2024 8:00 PM CDT Therapy Visit [address] [phone] 01/26/2024 12:50 PM CDT Therapy Visit [facility] [place] [address] [facility] [address] [place] [address] [place] [address] [place], [place] [phone] 02/09/2024 12:50 PM CDT Therapy Visit [facility] [address] [facility] [address] [place], [place] [address] [place] [address] [place], [place] [phone] 03/14/2024 10:30 AM CDT Office Visit [address] [phone] Abhishek Acevedo PA-C [address] [address] 03/21/2024 11:30 AM CDT Office Visit [facility] [address] [phone] Zain Quintana MD [address] [place] [address] 03/21/2024 2:30 PM CDT Virtual Visit [facility] [address] [phone] Latricia Pettit PA-C [address] [place] [address] 06/07/2024 11:20 AM CDT Office Visit [facility] [address] [place] [phone] Latricia Pettit PA-C [address] [place] [address]375 Abby Vasquez MD [address] [place] [address] [phone] documented as of this encounter Visit Diagnoses Diagnosis Constipation, unspecified constipation type- Primary Pelvic floor dysfunction Pelvic muscle wasting documented in this encounter Additional Health Concerns Assessment Noted Time PHQ-9 Depression Total Score: 12 024 12:52 PM CALL CENTER OPERATOR documented as of this encounter Care Teams Stick Welder Relationship Specialty Start Date End Date Monty Musa MD [facility] [address] [place] [address] PCP - General Family Medicine 08/13/21 Alfonso Tang [facility] [address] [place] [address] Family Practice 08/13/21 Dayanara Bee MD [address] [place] [address] [id number] Pediatrics 12/26/14 Min Lange MD [address] [place] [address] Neurology 03/30/16 Marlo Madsen MD [address] [place] [address] 752605 Cardiology 10/27/16 Mel Buckley, RN Nurse Coordinator Physical Medicine and Rehabilitation 12/02/16 Douglas Cadte MD [address] [place] [address] 640555 Gastroenterology 08/13/21 Rosalba Pendleton APRN CARPET JOURNEYMAN [address] [place] [address] Nurse Practitioner Neurology 09/05/21 Rosalba Pendleton APRN CARPET JOURNEYMAN [address] [place] [address] Assigned Neuroscience Provider 11/09/21 Marlo Madsen MD [address] [place] [address] 49919 Assigned Heart and Vascular Provider 03/14/22 Abby Vasquez MD [address] [place] [address] Gastroenterology 07/16/22 Airam Hodges PA-C [address] [place] [address] 260775 Physician Portable Power Tool Repairer Surgery 07/19/23 Zain Quintana MD [address] [place] [address] 522305 Assigned Surgical Provider 10/07/23 Latricia Pettit PA-C [address] [place] [address] Assigned Gastroenterology Provider 10/15/23 documented as of this encounter
--- OUTSIDE RECORDS SUMMARY | 2023-12-27 14:23 | XMS_ITS | Encounter Summary ---
Author Name Unknown Organization [place] Address [address] [facility] [place] [address] Care Team Providers Care Greenhouse Assistant Name Role Phone Monty Musa MD Primary Care Provider [phone] Alfonso Tang Unavailable Unavailable Dayanara Bee MD Unavailable [phone] Min Lange MD Unavailable Unavailable Marlo Madsen MD Unavailable [phone] Mel Buckley RN Unavailable [phone] Douglas Cadet MD Unavailable [phone] Rosalba Pendleton APRN FINISHED GOODS PLANNER Unavaila ble Rosalba Pendleton APRN FINISHED GOODS PLANNER Unavaila ble Marlo Madsen MD Unavailable [phone] Abby Vasquez MD Unavailable Airam Hodges PA-C Unavailable [phone] Zain Quintana MD Unavailable [phone] Latricia Pettit PA-C Unavailable [phone] Reason for Visit * Rehab Therapy Integrated Services (Routine) - Authorized Specialty Diagnoses / Procedures Referred By Emily t Referred To Contact Diagnoses Slow transit constipation [facility] [address] [place] [phone] Referral ID Status Reason Start Date Expiration Date V isits Requested Visits Authorized [id number] Authorized 09/13/2023 09/12/2024 365 365 Encounter Details Date Type Department Care Team (Latest Contact Info) Description 11/17/2023 11:00 AM CHECKERER HAND Therapy Visit [address] [address] Lainey Simon, PT [address] [place] [address] Slow transit constipation (Primary Dx) Social History [...] Sex Assigned at Female 10/31/2021 7:59 AM CHECKERER HAND Gender Identity Female 10/31/2021 7:59 AM CHECKERER HAND Sexual Orientation Straight 10/31/2021 7: 59 AM CHECKERER HAND documented as of this encounter Plan of Treatment Upcoming Encounters Date Type Department Care Team (Late st Contact Info) Description 01/05/2024 12:50 PM CDT Therapy Visit [address] [address] Lainey Simon PT [address] [place] [address] 01/12/2024 12:50 PM CDT Therapy Visit [address] [address] Lainey Simon PT [address] [place] [address] 01/13/2024 10:00 AM CDT Virtual Visit [facility] [address]rd [place] [phone] Rosalba Pendleton APRN FINISHED GOODS PLANNER [address] [place] [address] [id number] [address] 01/20/2024 8:00 PM CDT Therapy Visit [facility] [address] [phone] 01/26/2024 12:50 PM CDT Therapy Visit [address] [address] [place], [place] [id number] [place] [address] 02/09/2024 12:50 PM CDT Therapy Visit [address] [address] L[place], [place] [phone] [place] [address] [phone] 03/14/2024 10:30 AM CDT Office Visit [address] [phone] Abhishek Acevedo PA-C [address] [address] 03/21/2024 11:30 AM CDT Office Visit [facility] [address] [place] [phone] Zain Quintana MD [address] [place] [address] 03/21/2024 2:30 PM CDT Virtual Visit [facility] [address] [phone] Latricia Pettit PA-C [address] [place] [address] [phone] 06/07/2024 11:20 AM CDT Office Visit [facility] [address] [phone] Latricia Pettit PA-C [address] [place] [address] Abby Vasquez MD [address] [place] [address] [phone] documented as of this encounter Visit Diagnoses Diagnosis Slow transit constipation- Primary documented in this encounter Additional Health Concerns Assessment Noted Time PHQ-9 Depression Total Score: 12 024 12:52 PM CHECKERER HAND documented as of this encounter Care Teams Greenhouse Assistant Relationship Specialty Start Date End Date Monty Musa MD [facility] [address] [place] [address] PCP - General Family Medicine 08/13/21 Alfonso Tang [facility] [address] [place] [address] Family Practice 08/13/21 Dayanara Bee MD [address] [phone] Pediatrics 12/26/14 Min Lange MD [address] [address] Neurology 03/30/16 Marlo Madsen MD [address] [address] Cardiology 10/27/16 Mel Buckley, RN Nurse Coordinator Physical Medicine and Rehabilitation 12/02/16 Douglas Cadet MD [address] [place] [address] Gastroenterology 08/13/21 Rosalba Pendleton APRN FINISHED GOODS PLANNER [address] [place] [address] [phone] Nurse Practitioner Neurology 09/05/21 Rosalba Pendleton APRN FINISHED GOODS PLANNER [address] [place] [address] [phone] Assigned Neuroscience Provider 11/09/21 Marlo Madsen MD [address] [place] [address] 75 [place], [place] 667115 Assigned Heart and Vascular Provider 03/14/22 Abby Vasquez MD [address] [place] [address] [phone] Gastroenterology 07/16/22 Airam Hodges PA-C [address] [place] [address] Physician Cooky Packer Surgery 07/19/23 Zain Quintana MD [address] [place] [address] Assigned Surgical Provider 10/07/23 Latricia Pettit PA-C [address] [place] [address] Assigned Gastroenterology Provider 10/15/23 documented as of this encounter
--- OUTSIDE RECORDS SUMMARY | 2023-12-27 14:23 | XMS_ITS | Encounter Summary ---
Author Name Unknown Organization [facility] Address [address] [facility] [place] [address] Care Team Providers Care Director Water And Waste Services Name Role Phone Monty Musa MD Primary Care Provider Alfonso Tang Unavailable Unavailable Dayanara Bee MD Unavailable [phone] Min Lange MD Unavailable Unavailable Marol Madsen MD Unavailable [phone] Mel Buckley RN Unavailable [phone] Douglas Cadet MD Unavailable Rosalba Pendleton APRN PRODUCTION CHECKER Unavaila ble Rosalba Pendleton APRN PRODUCTION CHECKER Unavaila ble Marlo Madsen MD Unavailable [phone] Abby Vasquez MD Unavailable Airam Hodges PA-C Unavailable [phone] Zain Quintana MD Unavailable [phone] Latricia Pettit PA-C Unavailable [phone] Encounter Details Date Type Department Care Team (Late st Contact Info) Description 11/17/2023 [facility] [place] [address] [facility] 4th [place] [phone] Abby Vasquez MD [address] [place] [address] Social History Tobacco Use Types Packs/Day Years [...] Sex Assigned at Female 10/31/2021 7:59 AM WOOL HAT FORMING MACHINE TENDER Gender Identity Female 10/31/2021 7:59 AM WOOL HAT FORMING MACHINE TENDER Sexual Orientation Straight 10/31/2021 7: 59 AM WOOL HAT FORMING MACHINE TENDER documented as of this encounter Plan of Treatment Upcoming Encounters Date Type Department Care Team (Late st Contact Info) Description 01/05/2024 12:50 PM CDT Therapy Visit [address] [address] Lainey Simon, PT [address] [place] [address] 01/12/2024 12:50 PM CDT Therapy Visit [address] [address] Lainey Simon, PT [address] [place] [address] 01/13/2024 10:00 AM CDT Virtual Visit [facility] [address] 3rd [place] [phone] Rosalba Pendleton APRN [address] [id number] [address] 01/20/2024 8:00 PM CDT Therapy Visit [address] [phone] 01/26/2024 12:50 PM CDT Therapy Visit [facility] [address] [facility] [address] [place] [address] [place] [address] [place], [place] 502337 02/09/2024 12:50 PM CDT Therapy Visit [facility] [address] [facility] [address] [place] [address] [place] [address] [place] [address] 03/14/2024 10:30 AM CDT Office Visit [address] [phone] Abhishek Acevedo PA-C [address] [address] 03/21/2024 11:30 AM CDT Office Visit [facility] [address] [phone] Zain Quintana MD [address] [place] [address] 967235 03/21/2024 2:30 PM CDT Virtual Visit [facility] [address] [phone] Latricia Pettit PA-C [address] [place] [address] 06/07/2024 11:20 AM CDT Office Visit [facility] [address] 4th [place] [phone] Latricia Pettit PA-C [address] [place] [address] Abby Vasquez MD [address] [place] [address] documented as of this encounter Visit Diagnoses Not on filedocumented in this encounter Additional Health Concerns Assessment Noted Time PHQ-9 Depression Total Score: 12 024 12:52 PM WOOL HAT FORMING MACHINE TENDER documented as of this encounter Care Teams Director Water And Waste Services Relationship Specialty Start Date End Date Monty Musa MD [facility] [address] [place] [address] PCP - General Family Medicine 08/13/21 Alfonso Tang [facility] [address] [place] [address] Family Practice 08/13/21 Dayanara Bee MD [address] [place] [address] Pediatrics 12/26/14 Min Lange MD [address] [place] [address] Neurology 03/30/16 Marlo Madsen MD [address] [place] [address]67 Cardiology 10/27/16 Mel Buckley, RN Nurse Coordinator Physical Medicine and Rehabilitation 12/02/16 Douglas Cadet MD [address] [place] [address] Gastroenterology 08/13/21 Rosalba Pendleton APRN PRODUCTION CHECKER [address] [place] [address]368 Nurse Practitioner Neurology 09/05/21 Rosalba Pendleton APRN PRODUCTION CHECKER [address] [place] [address] Assigned Neuroscience Provider 11/09/21 Marlo Madsen MD [address] [place] [address]17 Assigned Heart and Vascular Provider 03/14/22 Abby Vasquez MD [address] [place] [address] Gastroenterology 07/16/22 Airam Hodges PA-C [address] [place] [address] 500735 Physician Deputy Jailer Surgery 07/19/23 Zain Quintana MD [address] [place] [address] 160085 Assigned Surgical Provider 10/07/23 Latricia Pettit PA-C [address] [place] [address] Assigned Gastroenterology Provider 10/15/23 documented as of this encounter
--- OUTSIDE RECORDS SUMMARY | 2023-12-27 14:23 | XMS_ITS | Encounter Summary ---
Author Name Unknown Organization [place] Address [address] [facility] [place] [address] Care Team Providers Care Subway Conductor Name Role Phone Monty Musa MD Primary Care Provider Alfonso Tang Unavailable Unavailable Dayanara Bee MD Unavailable [phone] Min Lange MD Unavailable Unavailable Marlo Madsen MD Unavailable [phone] Mel Buckley RN Unavailable [phone] Douglas Cadet MD Unavailable [phone] Rosalba Pendleton APRN [employer] Unavaila ble Rosalba Pendleton APRN [employer] Unavaila ble Marlo Madsen MD Unavailable [phone] Abby Vasquez MD Unavailable Airam Hodges PA-C Unavailable [phone] Zain Quintana MD Unavailable [phone] Latricia Pettit PA-C Unavailable [phone] Encounter Details Date Type Department Care Team (Latest Contact Info) Description 11/24/2023 Travel Social History Tobacco Use Types Packs/Day [...] Sex Assigned at Female 10/31/2021 7:59 AM SAFETY GROOVING MACHINE OPERATOR Gender Identity Female 10/31/2021 7:59 AM SAFETY GROOVING MACHINE OPERATOR Sexual Orientation Straight 10/31/2021 7: 59 AM SAFETY GROOVING MACHINE OPERATOR documented as of this encounter Plan of Treatment Upcoming Encounters Date Type Department Care Team (Late st Contact Info) Description 01/05/2024 12:50 PM CDT Therapy Visit [address] [place] [address] Lainey Simon, PT [address] [place] [address] 01/12/2024 12:50 PM CDT Therapy Visit [address] [place] [address] Lainey Simon, PT [address] [place] [address] 01/13/2024 10:00 AM CDT Virtual Visit [facility] [address] 3rd [place] [phone] Rosalba Pendleton, LAUNDRY OPERATOR WASH ROOM [address] [place] [address] 01/20/2024 8:00 PM CDT Therapy Visit [facility] [address] [phone] 01/26/2024 12:50 PM CDT Therapy Visit [address] [address] [place] [address] [place], [place] 392687 02/09/2024 12:50 PM CDT Therapy Visit [facility] [address] [facility] [address] [place] [address] [place] [address] [place] [address] 03/14/2024 10:30 AM CDT Office Visit [facility] [place] [address] [facility] 103 [place] [phone] Abhishek Acevedo PA-C 6363 [facility] 103 [place] [address] 03/21/2024 11:30 AM CDT Office Visit [facility] [address] [phone] Zain Quintana MD [address] [place] [address] 112195 03/21/2024 2:30 PM CDT Virtual Visit [facility] [address] [phone] Latricia Pettit PA-C [address] [place] [address] 994345 06/07/2024 11:20 AM CDT Office Visit [facility] [address] [phone] Latricia Pettit PA-C [address] [place] [address] 686905 Abby Vasquez MD 909 [place] [address] documented as of this encounter Visit Diagnoses Not on filedocumented in this encounter Additional Health Concerns Assessment Noted Time PHQ-9 Depression Total Score: 12 024 12:52 PM SAFETY GROOVING MACHINE OPERATOR documented as of this encounter Care Teams Subway Conductor Relationship Specialty Start Date End Date Monty Musa MD [facility] [address] [place] [address] PCP - General Family Medicine 08/13/21 Alfonso Tang [facility] [address] [place] [address] Family Practice 08/13/21 Dayanara Bee MD [address] [address] Pediatrics 12/26/14 Min Lange MD [address] [address] Neurology 03/30/16 Marlo Madsen MD [address] [address] Cardiology 10/27/16 Mel Buckley, DIAZ Nurse Coordinator Physical Medicine and Rehabilitation 12/02/16 Douglas Cadet MD [address] [place] [address] Gastroenterology 08/13/21 Rosalba Pendleton APRN [employer] [address] [facility]121[address] [place] [address] Nurse Practitioner Neurology 09/05/21 Rosalba Pendleton APRN [employer] 909 [facility] [id number] [place], [place] 778565 Assigned Neuroscience Provider 11/09/21 Marlo Madsen MD [address] [place] [address] 75 [place], [place] 404885 Assigned Heart and Vascular Provider 03/14/22 Abby Vasquez MD [address] [place] [address] 412815 Gastroenterology 07/16/22 Airam Hodges PA-C 500 [place], [place] 372925 Physician Wild Oyster Harvester Surgery 07/19/23 Zain Quintana MD 500 [place], [place] 207225 Assigned Surgical Provider 10/07/23 Latricia Pettit PA-C [address] [place] [address] 503145 Assigned Gastroenterology Provider 10/15/23 documented as of this encounter
--- OUTSIDE RECORDS SUMMARY | 2023-12-27 14:23 | XMS_ITS | Encounter Summary ---
Author Name Unknown Organization [facility] Address [address] [facility] [place] [address] Care Team Providers Care Cold Strip Roller Name Role Phone Monty Musa MD Primary Care Provider Alfonso Tang Unavailable Unavailable Dayanara Bee MD Unavailable [phone] Min Lange MD Unavailable Unavailable Marlo Madsen MD Unavailable [phone] Mel Buckley RN Unavailable [phone] Douglas Cadet MD Unavailable [phone] Rosalba Pendleton APRN RESTAURANT MAINTENANCE TECHNICIAN Unavaila ble Rosalba Pendleton APRN RESTAURANT MAINTENANCE TECHNICIAN Unavaila ble Marlo Madsen MD Unavailable [phone] Abby Vasquez MD Unavailable Airam Hodges PA-C Unavailable [phone] Zain Quintana MD Unavailable [phone] Latricia Pettit PA-C Unavailable [phone] Reason for Visit * Reason Comments Medication Refill Encounter Details Date Type Department Care Team (Late st Contact Info) Description 11/17/2023 [facility] [address] [phone] Rosalba Pendleton APRN RESTAURANT MAINTENANCE TECHNICIAN [address] [address] Medication Refill Social History Tobacco Use Types [...] Sex Assigned at Female 10/31/2021 7:59 AM DECKHAND Gender Identity Female 10/31/2021 7:59 AM DECKHAND Sexual Orientation Straight 10/31/2021 7: 59 AM DECKHAND documented as of this encounter Plan of Treatment Upcoming Encounters Date Type Department Care Team (Late st Contact Info) Description 01/05/2024 12:50 PM CDT Therapy Visit [address] [address] Lainey Simon, PT [address] [place] [address] 01/12/2024 12:50 PM CDT Therapy Visit [address] [address] Lainey Simon, PT [address] [place] [address] 01/13/2024 10:00 AM CDT Virtual Visit [facility] Neurology [address] [phone] Rosalba Pendleton APRN RESTAURANT MAINTENANCE TECHNICIAN [address] [address] 01/20/2024 8:00 PM CDT Therapy Visit [address] [phone] 01/26/2024 12:50 PM CDT Therapy Visit [address] 300 [place] [address] [place] [address] [place], [place] 982637 02/09/2024 12:50 PM CDT Therapy Visit [address] [address] Lainey Simon, PT [address] [place] [address] 684767 03/14/2024 10:30 AM CDT Office Visit [address] [phone] Abhishek Acevedo PA-C [address] [address] 03/21/2024 11:30 AM CDT Office Visit [facility] [address] [phone] Zain Quintana MD [address] [place] [address] 057255 03/21/2024 2:30 PM CDT Virtual Visit [facility] Gastroenterology [facility] [address] [phone] Latricia Pettit PA-C [address] [place] [address] 528015 06/07/2024 11:20 AM CDT Office Visit [facility]ology [facility] [address] 4th [place] [phone] Latricia Pettit PA-C [address] [place] [address] 618655 Abby Vasquez MD [address] [place] [address] 805185 documented as of this encounter Visit Diagnoses Diagnosis Intractable 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 Chronic migraine without aura, with intractable migraine, so stated, without mention of status migrainosus documented in this encounter Additional Health Concerns Assessment Noted Time PHQ-9 Depression Total Score: 12 024 12:52 PM DECKHAND documented as of this encounter Care Teams Cold Strip Roller Relationship Specialty Start Date End Date Monty Musa MD [facility] [address] [place] [address] PCP - General Family Medicine 08/13/21 Alfonso Tang [facility] [address] [place] [address] Family Practice 08/13/21 Dayanara Bee MD [address] [place] [address] Pediatrics 12/26/14 Min Lange MD [address] [address] Neurology 03/30/16 Marlo Madsen MD [address] [place] [address] Cardiology 10/27/16 Mel Buckley, RN Nurse Coordinator Physical Medicine and Rehabilitation 12/02/16 Douglas Cadet MD [address] [place] [address] Gastroenterology 08/13/21 Rosalba Pendleton APRN RESTAURANT MAINTENANCE TECHNICIAN [address] [place] [address] Nurse Practitioner Neurology 09/05/21 Rosalba Pendleton APRN RESTAURANT MAINTENANCE TECHNICIAN [address] [place] [address] 772665 Assigned Neuroscience Provider 11/09/21 Marlo Madsen MD [address] [place] [address] 242895 Assigned Heart and Vascular Provider 03/14/22 Abby Vasquez MD [address] [place] [address] 260505 Gastroenterology 07/16/22 Airam Hodges PA-C [address] [place] [address] Physician Automatic Casting Machine Operator Surgery 07/19/23 Zain Quintana MD [address] [place] [address] 26658 Assigned Surgical Provider 10/07/23 Latricia Pettit PA-C [address] [place] [address] Assigned Gastroenterology Provider 10/15/23 documented as of this encounter
--- OUTSIDE RECORDS SUMMARY | 2023-12-27 14:23 | XMS_ITS | Encounter Summary ---
Author Name Unknown Organization [place] Address [address] [facility] [place] [address] Care Team Providers Care Envelope Press Operator Name Role Phone Monty Musa MD Primary Care Provider [phone] Alfonso Tang Unavailable Unavailable Dayanara Bee MD Unavailable [phone] Min Lange MD Unavailable Unavailable Marlo Madsen MD Unavailable [phone] Mel Buckley RN Unavailable [phone] Douglas Cadet MD Unavailable Rosalba Pendleton APRN ADVERTISING SPACE CLERK Unavaila ble Rosalba Pendleton APRN ADVERTISING SPACE CLERK Unavaila ble Marlo Madsen MD Unavailable [phone] Abby Vasquez MD Unavailable Airam Hodges PA-C Unavailable [phone] Zain Quintana MD Unavailable [phone] Latricia Pettit PA-C Unavailable [phone] Encounter Details Date Type Department Care Team (Late st Contact Info) Description 11/24/2023 Telephone [facility] G[facility]ology [facility] [place] [address] [place] [address] Sheri Edmonds RN Social History Tobacco Use Types Packs/Day [...] Sex Assigned at Female 10/31/2021 7:59 AM SALES TRAINING MANAGER Gender Identity Female 10/31/2021 7:59 AM SALES TRAINING MANAGER Sexual Orientation Straight 10/31/2021 7: 59 AM SALES TRAINING MANAGER documented as of this encounter Miscellaneous Notes * Telephone Encounter - Inez Avendano - 12/07/2023 4:22 PM CDT Images from the original note were not included. Prior Authorization Approval Medication: TRULANCE 3 MG PO TABS Authorization Effective Date: 12/07/2023 Authorization Expiration Date: 09/12/2024 Approved Dose/Quantity: Reference #: [id number] Insurance Company: [employer] Part D - Expected CoPay: $ CoPay Card Available: Financial Assistance Needed: Which Pharmacy is filling the prescription: [facility] [id number] [place] [address] Pharmacy Notified: Yes Patient Notified: Yes * Telephone Encounter - Inez Avendano - 12/06/2023 3:07 PM CDT Images from the original note were not included. PA Initiation Medication: TRULANCE 3 MG PO TABS Insurance Company: [employer] Part D - Pharmacy Filling the Rx: [facility] [id number] [place] [address] Filling Pharmacy Filling Pharmacy Fax: Start Date: 12/06/2023 * Telephone Encounter - Sheri Edmonds RN - 11/24/2023 12:38 PM CDT Prior Authorization Retail Medication Request Medication/Dose: Disp Refills Start End ANASTACIO plecanatide (TRULANCE) 3 MG tablet 90 tablet 3 11/24/2023 -- No Sig - Route: Take 1 tablet (3 mg) by mouth daily - Oral Sent to pharmacy as: Trulance 3 MG Oral Tablet (plecanatide) Class: E-Prescribe Order: [id number] E-Prescribing Status: Receipt confirmed by pharmacy (11/24/2023 12:23 PM CDT) Diagnosis and ICD code (if different than what is on RX): New/renewal/insurance change PA/secondary ins. PA: Previously Tried and Failed: Rationale: Insurance Primary: Insurance ID: Secondary (if applicable): Insurance ID: Pharmacy Information (if different than what is on RX) Name: Phone: Fax: documented in this encounter Plan of Treatment Upcoming Encounters Date Type Department Care Team (Late st Contact Info) Description 01/05/2024 12:50 PM CDT Therapy Visit [address] [address] Lainey Simon, PT [address] [place] [address] 01/12/2024 12:50 PM CDT Therapy Visit [address] [address] Lainey Simon, PT [address] [place] [address] 01/13/2024 10:00 AM CDT Virtual Visit [facility] Neurology Clinic [address] 3rd [place] [address] Rosalba Pendleton, GLASS BLOWING INSTRUCTOR ADVERTISING SPACE CLERK [address] [place] [address] [id number] [place], [place] 674035 01/20/2024 8:00 PM CDT Therapy Visit [facility] Sleep [facility] [address] [phone] 01/26/2024 12:50 PM CDT Therapy Visit [facility] [address] [facility] [address] [place] [address] [place] [address] [place], [place] 812067 02/09/2024 12:50 PM CDT Therapy Visit [facility] [address] [facility] 300 [place] [address] [place] [address] [place] [address] 03/14/2024 10:30 AM CDT Office Visit [facility] [address] [phone] Abhishek Acevedo PA-C [address] [address] 03/21/2024 11:30 AM CDT Office Visit [facility] [address] [address] Zain Quintana MD [address] [place] [address] 531015 03/21/2024 2:30 PM CDT Virtual Visit [facility] Gastroenterology Clinic [address] [phone] Latricia Pettit PA-C [address] [place] [address] 537355 06/07/2024 11:20 AM CDT Office Visit [facility]astro[facility]ology [facility] [address] 4th [place] [phone] Latricia Pettit PA-C [address] [place] [address] 929255 Abby Vasquez MD [address] [place] [address] 759205 documented as of this encounter Visit Diagnoses Not on filedocumented in this encounter Additional Health Concerns Assessment Noted Time PHQ-9 Depression Total Score: 12 024 12:52 PM SALES TRAINING MANAGER documented as of this encounter Care Teams Envelope Press Operator Relationship Specialty Start Date End Date Monty Musa MD [facility] [address] [place] [address] PCP - General Family Medicine 08/13/21 Alfonso Tang [facility] [address] [place] [address] Family Practice 08/13/21 Dayanara Bee MD [address] [address] Pediatrics 12/26/14 Min Lange MD [address] [address] Neurology 03/30/16 Marlo Madsen MD [address] [address] Cardiology 10/27/16 Mel Buckley, RN Nurse Coordinator Physical Medicine and Rehabilitation 12/02/16 Douglas Cadet MD [address] [place] [address] Gastroenterology 08/13/21 Rosalba Pendleton APRN ADVERTISING SPACE CLERK [address] [place] [address] Nurse Practitioner Neurology 09/05/21 Rosalba Pendleton APRN ADVERTISING SPACE CLERK [address] [place] [place] [address] Assigned Neuroscience Provider 11/09/21 Marlo Madsen MD [address] [place] [address] Assigned Heart and Vascular Provider 03/14/22 Abby Vasquez MD [address] [place] [address] Gastroenterology 07/16/22 Airam Hodges PA-C [address] [place] [address] Physician Crucible Packer Surgery 07/19/23 Zain Quintana MD [address] [place] [address] Assigned Surgical Provider 10/07/23 Latricia Pettit PA-C [address] [place] [address] Assigned Gastroenterology Provider 10/15/23 documented as of this encounter
--- OUTSIDE RECORDS SUMMARY | 2023-12-27 14:23 | XMS_ITS | Encounter Summary ---
Author Name Unknown Organization [place] Address [address] [place] [address] Care Team Providers Care In Processing Instructor Name Role Phone Monty Musa MD Primary Care Provider [phone] Alfonso Tang Unavailable Unavailable Dayanara Bee MD Unavailable [phone] Min Lange MD Unavailable Unavailable Marlo Madsen MD Unavailable [phone] Mel Buckley RN Unavailable [phone] Douglas Cadet MD Unavailable Rosalba Pendleton APRN EXTRUSION ENGINEER Unavaila ble Rosalba Pendleton APRN EXTRUSION ENGINEER Unavaila ble Marlo Madsen MD Unavailable [phone] Abby Vasquez MD Unavailable Airam Hodges PA-C Unavailable [phone] Zain Quintana MD Unavailable [phone] Latricia Pettit PA-C Unavailable [phone] Encounter Details Date Type Department Care Team (Latest Contact Info) Description 10/28/2023 Travel Social History Tobacco Use Types Packs/Day [...] Sex Assigned at Female 10/31/2021 7:59 AM MIXING PAN TENDER Gender Identity Female 10/31/2021 7:59 AM MIXING PAN TENDER Sexual Orientation Straight 10/31/2021 7: 59 AM MIXING PAN TENDER documented as of this encounter Plan of Treatment Upcoming Encounters Date Type Department Care Team (Late st Contact Info) Description 01/05/2024 12:50 PM CDT Therapy Visit [address] [place] [address] Lianey Simon, PT [address] [place] [address] 01/12/2024 12:50 PM CDT Therapy Visit [address] [place] [address] Lainey Simon, PT [address] [place] [address] 01/13/2024 10:00 AM CDT Virtual Visit [facility] Neurology Clinic [address] 3rd [place] [phone] Rosalba Pendleton, BLACK TOP MACHINE OPERATOR [address] [place] [address] 01/20/2024 8:00 PM CDT Therapy Visit [facility] Sleep Centers [address] [phone] 01/26/2024 12:50 PM CDT Therapy Visit [address] [address] [place] [address] [place], [place] 492487 02/09/2024 12:50 PM CDT Therapy Visit [facility] Rehabilitation Services [facility] [address] [facility] [address] [place] [address] [place] [address] [place] [address] 03/14/2024 10:30 AM CDT Office Visit [facility] Sleep Centers [place] 6[address] [facility] 103 [place] [phone] Abhishek Acevedo PA-C 6363 [facility] 103 [place] [address] 03/21/2024 11:30 AM CDT Office Visit [facility] Colon and [facility]al Surgery Clinic [address] [phone] Zain Quintana MD [address] [place] [address] 924715 03/21/2024 2:30 PM CDT Virtual Visit [facility] Gastroenterology Clinic [address] [phone] Latricia Pettit PA-C [address] [place] [address] 904735 06/07/2024 11:20 AM CDT Office Visit [facility] Gastroenterology Clinic [address] [phone] Latricia Pettit PA-C [address] [place] [address] 432905 Abby Vasquez MD 909 [place] [address] documented as of this encounter Visit Diagnoses Not on filedocumented in this encounter Additional Health Concerns Assessment Noted Time PHQ-9 Depression Total Score: 12 024 12:52 PM MIXING PAN TENDER documented as of this encounter Care Teams In Processing Instructor Relationship Specialty Start Date End Date Monty Musa MD [facility] [address] [place] [address] PCP - General Family Medicine 08/13/21 Alfonso Tang [facility] [address] [place] [address] Family Practice 08/13/21 Dayanara Bee MD [address] [address] Pediatrics 12/26/14 Min Lange MD [address] [address] Neurology 03/30/16 Marlo Madsen MD [address] [address] Cardiology 10/27/16 Mel Buckley, DIAZ Nurse Coordinator Physical Medicine and Rehabilitation 12/02/16 Douglas Cadet MD [address] [place] [address] Gastroenterology 08/13/21 Rosalba Pendleton APRN EXTRUSION ENGINEER 909 [id number] [place] [address] Nurse Practitioner Neurology 09/05/21 Rosalba ePndleton APRN EXTRUSION ENGINEER 909 [facility] [id number] [place], [place] 903625 Assigned Neuroscience Provider 11/09/21 Marlo Madsen MD [address] [place] [address] 75 [place], [place] 317015 Assigned Heart and Vascular Provider 03/14/22 Abby Vasquez MD [address] [place] [address] 228735 Gastroenterology 07/16/22 Airam Hodges PA-C 500 [place], [place] 003445 Physician Accountancy Professor Surgery 07/19/23 Zain Quintana MD 500 [place], [place] 203625 Assigned Surgical Provider 10/07/23 Latricia Pettit PA-C [address] [place] [address] 346085 Assigned Gastroenterology Provider 10/15/23 documented as of this encounter
--- OUTSIDE RECORDS SUMMARY | 2023-12-27 14:24 | XMS_ITS | Encounter Summary ---
Author Name Unknown Organization [place] Address [address] [facility] [place] [address] Care Team Providers Care Imaging Center Manager Name Role Phone Monty Musa MD Primary Care Provider [phone] Alfonso Tang Unavailable Unavailable Dayanara Bee MD Unavailable [phone] Min Lange MD Unavailable Unavailable Marlo Madsen MD Unavailable [phone] Mel Buckley RN Unavailable [phone] Douglas Cadet MD Unavailable [phone] Rosalba Pendleton APRN PRIMARY SPECIAL EDUCATION TEACHER Unavaila ble Rosalba Pendleton APRN PRIMARY SPECIAL EDUCATION TEACHER Unavaila ble Marlo Madsen MD Unavailable [phone] Abby Vasquez MD Unavailable Abby Vasquez MD Unavailable Airam Hodges PA-C Unavailable [phone] Encounter Details Date Type Department Care [...] Sex Assigned at Female 10/31/2021 7:59 AM CAMPUS ADMINISTRATIVE ASSISTANT Gender Identity Female 10/31/2021 7:59 AM CAMPUS ADMINISTRATIVE ASSISTANT Sexual Orientation Straight 10/31/2021 7: 59 AM CAMPUS ADMINISTRATIVE ASSISTANT documented as of this encounter Plan of Treatment Upcoming Encounters Date Type Department Care Team (Late st Contact Info) Description 01/05/2024 12:50 PM CDT Therapy Visit [address] [address] Lainey Simon, PT [address] [place] [address] 01/12/2024 12:50 PM CDT Therapy Visit [address] [address] Lainey Simon, PT [address] [place] [address] 01/13/2024 10:00 AM CDT Virtual Visit [facility] Neurology Clinic [address] 3rd [place] [phone] Rosalba Pendleton, ACTIVITY ASSISTANT [facility] 909 [id number] [place] [address] 01/20/2024 8:00 PM CDT Therapy Visit [facility] Sleep Centers [address] [phone] 01/26/2024 12:50 PM CDT Therapy Visit [address] [address] Lainey Simon, PT [address] [place] [address] 02/09/2024 12:50 PM CDT Therapy Visit [facility] Rehabilitation Services [facility] [address] [facility] [address] [place] [address] [place] [address] [place], [place] 811067 03/14/2024 10:30 AM CDT Office Visit [facility] Sleep Centers [place] 6363 [facility] 103 [place] [phone] Abhishek Acevedo PA-C 6363 [facility] 103 [place], [place] [phone] 03/21/2024 11:30 AM CDT Office Visit [facility] Colon and Rectal Surgery Clinic [address] [phone] Zain Quintana MD [address] [place] [address] [id number] 03/21/2024 2:30 PM CDT Virtual Visit [facility] Gastroenterology Clinic [address] [phone] Latricia Pettit PA-C [address] [place] [address] 593535 06/07/2024 11:20 AM CDT Office Visit [facility] Gastroenterology Clinic [address] [phone] Latricia Pettit PA-C [address] [place] [address] 901695 Abby Vasquez MD [address] [place] [address] documented as of this encounter Visit Diagnoses Not on filedocumented in this encounter Additional Health Concerns Assessment Noted Time PHQ-9 Depression Total Score: 12 023 8:53 AM CDT documented as of this encounter Care Teams Imaging Center Manager Relationship Specialty Start Date End Date Monty Musa MD [facility] [address] [place] [address] PCP - General Family Medicine 08/13/21 Alfonso Tang [facility] [address] [place] [address] [facility] 08/13/21 Dayanara Bee MD [address] [place] [address] Pediatrics 12/26/14 Min Lange MD [address] [place] [address] Neurology 03/30/16 Marlo Madsen MD [address] [place] [address] Cardiology 10/27/16 Mel Buckley, RN Nurse Coordinator Physical Medicine and Rehabilitation 12/02/16 Douglas Cadet MD [address] [place] [address] Gastroenterology 08/13/21 Rosalba Pendleton APRN PRIMARY SPECIAL EDUCATION TEACHER [address] [place] [id number] [address] Nurse Practitioner Neurology 09/05/21 Rosalba Pendleton APRN PRIMARY SPECIAL EDUCATION TEACHER [address] [place] [address] [id number] [place], [place] 167255 Assigned Neuroscience Provider 11/09/21 Marlo Madsen MD [address] [place] [address] [facility] 75 [place] [address] Assigned Heart and Vascular Provider 03/14/22 Abby Vasquez MD [address] [place] [address] Gastroenterology 07/16/22 Abby Vasquez MD [address] [place] [address]347 Assigned PCP 09/26/22 10/06/23 Airam Hodges PA-C [address] [place] [address] Physician Dispute Coordinator Surgery 07/19/23 documented as of this encounter
--- OUTSIDE RECORDS SUMMARY | 2023-12-27 14:24 | XMS_ITS | Encounter Summary ---
Author Name Unknown Organization [place] Address [address] [facility] [place] [address] Care Team Providers Care Knit Goods Washer Name Role Phone Monty Musa MD Primary Care Provider Alfonso Tang Unavailable Unavailable Dayanara Bee MD Unavailable [phone] Min Lange MD Unavailable Unavailable Marlo Madsen MD Unavailable [phone] Mel Buckley RN Unavailable [phone] Douglas Cadet MD Unavailable Rosalba Pendleton APRN DIELECTRIC TESTER Unavaila ble Rosalba Pendleton APRN DIELECTRIC TESTER Unavaila ble Marlo Madsen MD Unavailable [phone] Abby Vasquez MD Unavailable Airam Hodges PA-C Unavailable [phone] Zain Quintana MD Unavailable [phone] Latricia Pettit PA-C Unavailable [phone] Encounter Details Date Type Department Care Team [...] Sex Assigned at Female 10/31/2021 7:59 AM WILDLIFE CONSERVATIONIST Gender Identity Female 10/31/2021 7:59 AM WILDLIFE CONSERVATIONIST Sexual Orientation Straight 10/31/2021 7: 59 AM WILDLIFE CONSERVATIONIST documented as of this encounter Plan of Treatment Upcoming Encounters Date Type Department Care Team (Late st Contact Info) Description 01/05/2024 12:50 PM CDT Therapy Visit [address] [place] [address] Lainey Simon, PT [address] [place] [address] 01/12/2024 12:50 PM CDT Therapy Visit [address] [place] [address] Lainey Simon, PT [address] [place] [address] 01/13/2024 10:00 AM CDT Virtual Visit [facility] Neurology Clinic [address] 3rd [place] [phone] Rosalba Pendleton, STERILE SUPPLY TECHNICIAN [address] [place] [address] 01/20/2024 8:00 PM CDT Therapy Visit [facility] Sleep Centers [address] [phone] 01/26/2024 12:50 PM CDT Therapy Visit [address] [address] [place] [address] [place], [place] 343207 02/09/2024 12:50 PM CDT Therapy Visit [facility] Rehabilitation Services [facility] [address] [facility] [address] [place] [address] [place] [address] [place] [address] 03/14/2024 10:30 AM CDT Office Visit [facility] Sleep Centers [place] 6363 [facility] 103 [place] [phone] Abhishek Acevedo PA-C 6363 [facility] 103 [place] [address] 03/21/2024 11:30 AM CDT Office Visit [facility] Colon and Rectal Surgery Clinic [address] [phone] Zain Quintana MD [address] [place] [place] [address] 628015 03/21/2024 2:30 PM CDT Virtual Visit [facility] Gastroenterology Clinic [address] [phone] Latricia Pettit PA-C [address] [place] [address] 873905 06/07/2024 11:20 AM CDT Office Visit [facility] Gastroenterology Clinic [address] [phone] Latricia Pettit PA-C [address] [place] [address] 389795 Abby Vasquez MD 909 [place] [address] documented as of this encounter Visit Diagnoses Not on filedocumented in this encounter Additional Health Concerns Assessment Noted Time PHQ-9 Depression Total Score: 12 023 8:53 AM CDT documented as of this encounter Care Teams Knit Goods Washer Relationship Specialty Start Date End Date Monty Musa MD [facility] [address] [place] [address] PCP - General Family Medicine 08/13/21 Alfonso Tang [facility] [address] [place] [address] Family Practice 08/13/21 Dayanara Bee MD [address] [address] Pediatrics 12/26/14 Min Lange MD [address] [address] Neurology 03/30/16 Marlo Madsen MD [address] [address] Cardiology 10/27/16 Mel Buckley, DIAZ Nurse Coordinator Physical Medicine and Rehabilitation 12/02/16 Douglas Cadet MD [address] [place] [place] [address] Gastroenterology 08/13/21 Rosalba Pendleton APRN DIELECTRIC TESTER 909 [id number] [place] [address] Nurse Practitioner Neurology 09/05/21 Rosalba Pendleton APRN [facility] 909 [facility] [id number] [place] [address] Assigned Neuroscience Provider 11/09/21 Marlo Madsen MD [address] [place] [address] 75 [place], [place] 485475 Assigned Heart and Vascular Provider 03/14/22 Abby Vasquez MD [address] [place] [address] 318225 Gastroenterology 07/16/22 Airam Hodges PA-C 500 [place], [place] 603845 Physician Real Time Trader Surgery 07/19/23 Zain Quintana MD 500 [place], [place] 160325 Assigned Surgical Provider 10/07/23 Latricia Pettit PA-C [address] [place] [address] 958185 Assigned Gastroenterology Provider 10/15/23 documented as of this encounter
--- OUTSIDE RECORDS SUMMARY | 2023-12-27 14:24 | XMS_ITS | Encounter Summary ---
Author Name Unknown Organization [place] Address [address] [facility] [place] [address] Care Team Providers Care Hotel Housekeeper Name Role Phone Monty Musa MD Primary Care Provider [phone] Alfonso Tang Unavailable Unavailable Dayanara Bee MD Unavailable [phone] Min Lange MD Unavailable Unavailable Marlo Madsen MD Unavailable [phone] Mel Buckley RN Unavailable [phone] Douglas Cadet MD Unavailable Rosalba Pendleton APRN INTENSIVE CARE UNIT NURSE Unavaila ble Rosalba Pendleton APRN INTENSIVE CARE UNIT NURSE Unavaila ble Marlo Madsen MD Unavailable [phone] Abby Vasquez MD Unavailable Abby Vasquez MD Unavailable Airam Hodges PA-C Unavailable [phone] Reason for Visit * Diagnostic Imaging XR (Routine) - Pending Review Specialty Diagnoses / Procedures Referred By Contac t Referred To Contact Radiology. Diagnoses Slow transit constipation Procedures XR Abdomen 1 View Zain Quintana MD 500 [place] [address] Referral ID Status Reason Start Date Expiration Date V isits Requested Visits Authorized [id number] Pending Review 09/21/2023 09/20/2024 1 1 Encounter Details Date Type Department Care Team (Latest Contact Info) Description 09/27/2023 9:30 AM MOLECULAR PATHOLOGIST Ancillary Procedure [address] [place] [phone] Zain Quintana MD [address] [place] [address] [phone] Slow transit constipation Social History Tobacco Use [...] Sex Assigned at Female 10/31/2021 7:59 AM MOLECULAR PATHOLOGIST Gender Identity Female 10/31/2021 7:59 AM MOLECULAR PATHOLOGIST Sexual Orientation Straight 10/31/2021 7: 59 AM MOLECULAR PATHOLOGIST documented as of this encounter Plan of Treatment Upcoming Encounters Date Type Department Care Team (Late st Contact Info) Description 01/05/2024 12:50 PM CDT Therapy Visit [address] [place] [address] Lainey Simon, PT [address] [place] [address] 01/12/2024 12:50 PM CDT Therapy Visit [address] [place] [address] Lainey Simon, PT [address] [place] [address] 01/13/2024 10:00 AM CDT Virtual Visit [facility] Neurology Clinic [address] 3rd [place] [phone] Rosalba Pendleton, MAXIMILIANO INTENSIVE CARE UNIT NURSE [address] [place] [address] [id number] [place] [address] 01/20/2024 8:00 PM CDT Therapy Visit [facility] Sleep [address] [phone] 01/26/2024 12:50 PM CDT Therapy Visit [address] [address] Lainey Simon, PT [address] [place] [address] 02/09/2024 12:50 PM CDT Therapy Visit [address] [address] Lainey Smion, PT [address] [place] [address] 03/14/2024 10:30 AM CDT Office Visit [address] [phone] Abhishek Acevedo PA-C [address] [address] 03/21/2024 11:30 AM CDT Office Visit [facility] Colon and Rectal Surgery Clinic [address] 4th [place] [phone] Zain Quintana MD [address] [place] [address] 03/21/2024 2:30 PM CDT Virtual Visit [facility] Gastroenterology Clinic [address] [phone] Latricia Pettit PA-C [address] [place] [address] 142795 06/07/2024 11:20 AM CDT Office Visit [facility] Gastroenterology Clinic [address] [phone] Latricia Pettit PA-C [address] [place] [address] Abby Vasquez MD [address] [place] [address] [phone] documented as of this encounter Procedures Procedure Name Priority Date/Time Associated Diagnosis Comments XR ABDOMEN 1 VIEW Routine 09/27/2023 9:0 2 AM MOLECULAR PATHOLOGIST Slow transit constipation documented in this encounter Results * XR Abdomen 1 View (09/27/2023 9:02 AM MOLECULAR PATHOLOGIST) Anatomical Region Laterality Modality Abdomen/Pelvis Computed Radiogr aphy Impressions 09/27/2023 10:27 AM MOLECULAR PATHOLOGIST IMPRESSION: Sitz markers are seen along the ascending and transverse colon. Nonobstructive bowel gas pattern. Moderate to large stool burden is seen throughout the colon. No acute bony abnormality. DERREK VILLAGOMEZ MD SYSTEM ID: ??[id number] Narrative 09/27/2023 10:27 AM MOLECULAR PATHOLOGIST ABDOMEN TWO VIEWS 09/27/2023 9:02 AM HISTORY: [...] bony abnormality. DERREK VILLAGOMEZ MD SYSTEM ID: [id number] Zain Quintana MD IMG DIAGNOSTIC IMAGI NG ORDERABLES documented in this encounter Visit Diagnoses Diagnosis Slow transit constipation documented in this encounter Additional Health Concerns Assessment Noted Time PHQ-9 Depression Total Score: 12 023 8:53 AM CDT documented as of this encounter Care Teams Hotel Housekeeper Relationship Specialty Start Date End Date Monty Musa MD [facility] [address] [place] [address] PCP - General Family Medicine 08/13/21 Alfonso Tang [facility] [address] [place] [address] Family Practice 08/13/21 Dayanara Bee MD [address] [address] Pediatrics 12/26/14 Min Lange MD [address] [address] Neurology 03/30/16 Marlo Madsen MD [address] [place] [address] Cardiology 10/27/16 Mel Buckley, RN Nurse Coordinator Physical Medicine and Rehabilitation 12/02/16 Douglas Cadet MD [address] [place] [address] Gastroenterology 08/13/21 Rosalba Pendleton APRN INTENSIVE CARE UNIT NURSE [address] [place] [address] [address] Nurse Practitioner Neurology 09/05/21 Rosalba Pendleton APRN INTENSIVE CARE UNIT NURSE [address] [place] [address] [id number] [place], [place] 441395 Assigned Neuroscience Provider 11/09/21 Marlo Madsen MD [address] [place] [address] 75 [place] [address] Assigned Heart and Vascular Provider 03/14/22 Abby Vasquez MD [address] [place] [address] 133765 Gastroenterology 07/16/22 Abby Vasquez MD [address] [place] [address] [id number] Assigned PCP 09/26/22 10/06/23 Airam Hodges PA-C [address] [place] [address] Physician Automatic Car Wash Attendant Surgery 07/19/23 documented as of this encounter
--- OUTSIDE RECORDS SUMMARY | 2023-12-27 14:24 | XMS_ITS | Encounter Summary ---
Author Name Unknown Organization [place] Address [address] [facility] [place] [address] Care Team Providers Care Butter Production Supervisor Name Role Phone Monty Musa MD Primary Care Provider [phone] Alfonso Tang Unavailable Unavailable Dayanara Bee MD Unavailable [phone] Min Lange MD Unavailable Unavailable Marlo Madsen MD Unavailable [phone] Mel Buckley RN Unavailable [phone] Douglas Cadet MD Unavailable [phone] Rosalba Pendleton APRN BRAILLE AND TALKING BOOKS CLERK Unavaila ble Rosalba Pendleton APRN BRAILLE AND TALKING BOOKS CLERK Unavaila ble Marlo Madsen MD Unavailable [phone] Abby Vasquez MD Unavailable Abby Vasquez MD Unavailable Airam Hodges PA-C Unavailable [phone] Encounter Details Date Type Department Care [...] Sex Assigned at Female 10/31/2021 7:59 AM MACHINERY ERECTOR Gender Identity Female 10/31/2021 7:59 AM MACHINERY ERECTOR Sexual Orientation Straight 10/31/2021 7: 59 AM MACHINERY ERECTOR documented as of this encounter Plan of Treatment Upcoming Encounters Date Type Department Care Team (Late st Contact Info) Description 01/05/2024 12:50 PM CDT Therapy Visit [address] [address] Lainey Simon, PT [address] [place] [address] 01/12/2024 12:50 PM CDT Therapy Visit [address] [address] Lainey Simon, PT [address] [place] [address] 01/13/2024 10:00 AM CDT Virtual Visit [facility] [address] 3rd [place] [phone] Rosalba Pendleton, [facility] [address] [facility]121[address] [address] 01/20/2024 8:00 PM CDT Therapy Visit [facility] [address] [phone] 01/26/2024 12:50 PM CDT Therapy Visit [address] [address] Lainey Simon, PT [address] [place] [address] 02/09/2024 12:50 PM CDT Therapy Visit [facility] [address] [employer] [address] [place] [address] [place] [address] [place], [place] 444327 03/14/2024 10:30 AM CDT Office Visit [facility] [place] [address] [facility] 103 [place] [phone] Abhishek Acevedo PA-C [address] [facility] 103 [place], [place] [phone] 03/21/2024 11:30 AM CDT Office Visit [facility] [address] [phone] Zain Quintana MD [address] [place] [address] 18992455 03/21/2024 2:30 PM CDT Virtual Visit [facility] [address] [phone] Latricia Pettit PA-C [address] [place] [address] 516175 06/07/2024 11:20 AM CDT Office Visit [facility] [address] [phone] Latricia Pettit PA-C [address] [place] [address] 453715 Abby Vasquez MD [address] [place] [address] documented as of this encounter Visit Diagnoses Not on filedocumented in this encounter Additional Health Concerns Assessment Noted Time PHQ-9 Depression Total Score: 12 023 8:53 AM CDT documented as of this encounter Care Teams Butter Production Supervisor Relationship Specialty Start Date End Date Monty Musa MD [facility] [address] [place] [address] PCP - General Family Medicine 08/13/21 Alfonso Tang [facility] [address] [place] [address] [facility] 08/13/21 Dayanara Bee MD [address] [place] [address] Pediatrics 12/26/14 Min Lange MD [address] [place] [address] 94[address] Neurology 03/30/16 Marlo Madsen MD [address] [place] [address]18 Cardiology 10/27/16 Mel Buckley, RN Nurse Coordinator Physical Medicine and Rehabilitation 12/02/16 Douglas Cadet MD [address] [place] [address] Gastroenterology 08/13/21 Rosalba Pendleton APRN BRAILLE AND TALKING BOOKS CLERK [address] [place] [address] [address] Nurse Practitioner Neurology 09/05/21 Rosalba Pendleton APRN BRAILLE AND TALKING BOOKS CLERK [address] [place] [address] [id number] [place], [place] 600275 Assigned Neuroscience Provider 11/09/21 Marlo Madsen MD [address] [place] [address] [facility] 75 [place] [address] Assigned Heart and Vascular Provider 03/14/22 Abby Vasquez MD [address] [place] [address] Gastroenterology 07/16/22 Abby Vasquez MD [address] [place] [address] Assigned PCP 09/26/22 10/06/23 Airam Hodges PA-C [address] [place] [address] Physician Visitor Services Associate Surgery 07/19/23 documented as of this encounter
--- OUTSIDE RECORDS SUMMARY | 2023-12-27 14:24 | XMS_ITS | Encounter Summary ---
Author Name Unknown Organization [place] Address [address] [facility] [place] [address] Care Team Providers Care Warp Spooler Name Role Phone Monty Musa MD Primary Care Provider Alfonso Tang Unavailable Unavailable Dayanara Bee MD Unavailable [phone] Min Laneg MD Unavailable Unavailable Marlo Madsen MD Unavailable [phone] Mel Buckley RN Unavailable [phone] Douglas Cadet MD Unavailable [phone] Rsoalba Pendleton APRN SEED YEAST OPERATOR Unavaila ble Rosalba Pendleton APRN SEED YEAST OPERATOR Unavaila ble Marlo Madsen MD Unavailable [phone] Abby Vasquez MD Unavailable Airam Hodges PA-C Unavailable [phone] Zain Quintana MD Unavailable [phone] Latricia Pettit PA-C Unavailable [phone] Reason for Visit * Rehab Therapy Integrated Services (Routine) - Authorized Specialty Diagnoses / Procedures Referred By Emily t Referred To Contact Diagnoses Slow transit constipation [facility] [address] [place] [phone] Referral ID Status Reason Start Date Expiration Date V isits Requested Visits Authorized [id number] Authorized 09/13/2023 09/12/2024 365 365 Encounter Details Date Type Department Care Team (Latest Contact Info) Description 10/21/2023 11:30 AM AIR OPERATIONS MANAGER Therapy Visit [facility] [address] [facility] 300 [place], [place] [address] Zain Quintana MD 500 [place] [address] [place] [address] [place] [address] Slow transit constipation Social History [...] Assigned at Female 10/31/2021 7:59 AM AIR OPERATIONS MANAGER Gender Identity Female 10/31/2021 7:59 AM AIR OPERATIONS MANAGER Sexual Orientation Straight 10/31/2021 7: 59 AM AIR OPERATIONS MANAGER documented as of this encounter Progress [...] support: With family members Type of home: [facility] Stairs to enter the home: Yes 2 [...] self care tasks, work tasks, recreational activities, manager pulmonary, household mobility, and community mobility as compared to previous level of function. Clinical Decision Making (Complexity): Clinical Presentation: Stable/Uncomplicated Clinical Presentation Rationale: based on medical and personal factors listed in PT evaluation Clinical Decision Making (Complexity): Low complexity PLAN OF CARE Treatment Interventions: Interventions: Gait Training, Manual Therapy, Neuromuscular Re-education, Therapeutic Activity, Therapeutic Exercise, Self-Care/Home Management Pruner Goals PT Goal 1 Goal Identifier: Goal [...] Care. Evaluation Time: PT Yves Velásquez Minutes (36671): 10 Signing Clinician: JAY Werner [facility] OUTPATIENT PHYSICAL THERAPY PLAN OF TREATMENT FOR OUTPATIENT REHABILITATION Patient's Last Name, First Name, JoshuaRia HoldenLatricia Jose Date of : 1990 Provider's Name [facility] Onset Date: 08/02/23 Start of Care [...] Referring Provider: Zain Quintana Initial Assessment See [facility] Evaluation- Start of Care Date: 10/21/23 OPERATIONS MANAGER Associated attestation - Zain Quintana MD - 10/21/2023 3:41 PM AIR OPERATIONS MANAGER Physician Attestation I agree with the information in this note. Zain Quintana MD documented in this encounter Plan of Treatment Upcoming Encounters Date Type Department Care Team (Late st Contact Info) Description 01/05/2024 12:50 PM CDT Therapy Visit [address] [address] Lainey Simon, PT [address] [place] [address] 01/12/2024 12:50 PM CDT Therapy Visit [address] [address] Lainey Simon, PT [address] [place] [address] 01/13/2024 10:00 AM CDT Virtual Visit [facility] [address] 3rd [place] [phone] Rosalba Pendleton, EARLY CHILDHOOD ASSOCIATE [address] [place] [address] 01/20/2024 8:00 PM CDT Therapy Visit [address] [phone] 01/26/2024 12:50 PM CDT Therapy Visit [address] [address] Lainey Simon, PT [address] [place] [address] 02/09/2024 12:50 PM CDT Therapy Visit [address] [address] Lainey Simon, PT [address] [place] [address], [place] [address] 03/14/2024 10:30 AM CDT Office Visit [facility] [place] [address] [facility] 103 [place] [phone] Abhishek Acevedo PA-C [address] [facility] 103 [place] [address] 03/21/2024 11:30 AM CDT Office Visit [facility] [address] [phone] Zain Quintana MD [address] [place] [address] 555565 03/21/2024 2:30 PM CDT Virtual Visit [facility] [address] [phone] Latricia Pettit PA-C [address] [place] [address] 06/07/2024 11:20 AM CDT Office Visit [facility] [address] [phone] Latricia Pettit PA-C [address] [place] [address] 798105 Abby Vasquez MD [address] [place] [address] 558955 documented as of this encounter Visit Diagnoses Diagnosis Slow transit constipation documented in this encounter Additional Health Concerns Assessment Noted Time PHQ-9 Depression Total Score: 12 023 8:53 AM CDT documented as of this encounter Care Teams Warp Spooler Relationship Specialty Start Date End Date Monty uMsa MD [facility] [address] [place] [address] PCP - General Family Medicine 08/13/21 Alfonso Tang [facility] [address] [place] [address] Family Practice 08/13/21 Dayanara Bee MD [address] [address] Pediatrics 12/26/14 Min Lange MD [address] [address] Neurology 03/30/16 Marlo Madsen MD [address] [place] [address] 005765 Cardiology 10/27/16 Mel Buckley, RN Nurse Coordinator Physical Medicine and Rehabilitation 12/02/16 Douglas Cadet MD [address] [place] [address] 294825 Gastroenterology 08/13/21 Rosalba Pendleton APRN SEED YEAST OPERATOR [address] [place] [address] Nurse Practitioner Neurology 09/05/21 Rosalba Pendleton APRN SEED YEAST OPERATOR [address] [address] Assigned Neuroscience Provider 11/09/21 Marlo Madsen MD [address] [place] [address] 369435 Assigned Heart and Vascular Provider 03/14/22 Abby Vasquez MD 909 [place] [address] Gastroenterology 07/16/22 Airam Hodges PA-C 500 [place] [address] Physician Personalized Living Manager Surgery 07/19/23 Zain Quintana MD 500 [place], [place] 988335 Assigned Surgical Provider 10/07/23 Latricia Pettit PA-C [address] [place] [address] Assigned Gastroenterology Provider 10/15/23 documented as of this encounter
--- OUTSIDE RECORDS SUMMARY | 2023-12-27 14:24 | XMS_ITS | Encounter Summary ---
Author Name Unknown Organization [place] Address [address] [facility] [place] [address] Care Team Providers Care Airconditioning Drafting Officer Name Role Phone Monty Musa MD Primary Care Provider Alfonso Tang Unavailable Unavailable Dayanara Bee MD Unavailable [phone] Min Lange MD Unavailable Unavailable Marlo Madsen MD Unavailable [phone] Mel Buckley RN Unavailable [phone] Douglas Cadet MD Unavailable Rosalba Pendleton APRN HANDER IN Unavaila ble Rosalba Pendleton APRN HANDER IN Unavaila ble Marlo Madsen MD Unavailable [phone] Abby Vasquez MD Unavailable Airam Hodges PA-C Unavailable [phone] Zain Quintana MD Unavailable [phone] Latricia Pettit PA-C Unavailable [phone] Reason for Visit * Reason Onset Date Comments Previsit 10/18/2023 Encounter Details Date Type Department Care Team (Late st Contact Info) Description 10/18/2023 PRE VISIT [facility] [address] 4th [place] [address] Airam Hodges PA-C [address] [place] [address] Previsit Social History Tobacco Use Types Packs/Day [...] Sex Assigned at Female 10/31/2021 7:59 AM COIN WRAPPING MACHINE OPERATOR Gender Identity Female 10/31/2021 7:59 AM COIN WRAPPING MACHINE OPERATOR Sexual Orientation Straight 10/31/2021 7: 59 AM COIN WRAPPING MACHINE OPERATOR documented as of this encounter Miscellaneous Notes * Telephone Encounter - Jose Ware EMT - 08/26/2023 2:17 PM CST Called and talked to patient about rescheduling patient with a surgeon per Airam Hodges PA-C. Patient was scheduled with Zain Quintana MD WRAPPING MACHINE OPERATOR * Telephone Encounter - Isi Clark - [...] 10/11/22 - UC OV with KENDRICK [facility]: 01/07/22 - PCC OV with Dr. Contreras 08/12/21 - PCC OV with Dr Musa DISCHARGE SUMMARY from hospital N/A DISCHARGE REPORT from the ER Internal [facility]: 07/09/23 - ED OV with Dr. Colvin 07/15/22 - ED OV with Dr. Cohen OPERATIVE REPORT N/A MEDICATION LIST Internal LABS BIOPSIES/PATHOLOGY RELATED TO DIAGNOSIS Care Everywhere / Internal [facility]: 10/16/21 - Colon Biopsy (Case: [id number]) [facility]: 12/10/16 - Colon Biopsy (Case: [id number]) 12/13/14 - Colon Biopsy (Case: [id number]) DIAGNOSTIC PROCEDURES PFC TESTING (from the Pelvic floor center includes Manometry, PDNL, EMG, etc.) Received [facility]: 11/12/22 - PFC Testing COLONOSCOPY Received / Internal [facility]: 10/16/21 - Colonoscopy [facility]: 12/10/16 - Colonoscopy 12/13/14 - Colonoscopy IMAGING (DISC & REPORT) CT [facility]: 07/09/23 - CT Abd/Pelvis 07/15/23 - CT Abd/Pelvis 05/04/22 - NM Gastric Records Requested 07/26/23 Facility [facility] Outcome * 07/26/23 3:57 PM Faxed request to [facility] for records to be faxed to the clinic. - Isi * 07/27/23 8:27 AM Records received from [facility] and sent to HIM to be scanned into the chart. -Isi WRAPPING MACHINE OPERATOR documented in this encounter Plan of Treatment Upcoming Encounters Date Type Department Care Team (Late st Contact Info) Description 01/05/2024 12:50 PM CDT Therapy Visit [address] [place] [address] Lainey Simon, PT [address] [place] [address] 01/12/2024 12:50 PM CDT Therapy Visit [address] [place] [address] [place] [address] [place] [address] 01/13/2024 10:00 AM CDT Virtual Visit [facility] [address] 3rd [place] [phone] Rosalba Pendleton, LEATHER STAMPER [address] HM8087OL [place] [address] 01/20/2024 8:00 PM CDT Therapy Visit [facility] Sleep [address] [phone] 01/26/2024 12:50 PM CDT Therapy Visit [address] [address] Lainey Simon, PT [address] [place] [address] 02/09/2024 12:50 PM CDT Therapy Visit [address] [address] Lainey Simon, PT [address] [place] [address] 03/14/2024 10:30 AM CDT Office Visit [facility] Sleep [place] [address] [place] [address] Abhishek Acevedo PA-C [address] [address] 03/21/2024 11:30 AM CDT Office Visit [facility] [address] 4th [place] [phone] Zain Quintana MD [address] [place] [address] 410725 03/21/2024 2:30 PM CDT Virtual Visit [facility] [address] [phone] Latricia Pettit PA-C [address] [place] [address] 399465 06/07/2024 11:20 AM CDT Office Visit [facility] [address] [phone] Latricia Pettit PA-C [address] [place] [address] 915065 Abby Vasquez MD [address] [place] [address] 356295 documented as of this encounter Visit Diagnoses Not on filedocumented in this encounter Additional Health Concerns Assessment Noted Time PHQ-9 Depression Total Score: 12 023 8:53 AM CDT documented as of this encounter Care Teams Airconditioning Drafting Officer Relationship Specialty Start Date End Date Monty Musa MD [facility] [address] [place] [address] PCP - General Family Medicine 08/13/21 Alfonso Tang [facility] [address] [place] [address] Family Practice 08/13/21 Dayanara Bee MD [address] [place] [address] Pediatrics 12/26/14 Min Lange MD [facility] [address] [address] Neurology 03/30/16 Marlo Madsen MD [address] [place] [address] Cardiology 10/27/16 Mel Buckley, RN Nurse Coordinator Physical Medicine and Rehabilitation 12/02/16 Douglas Cadet MD [address] [place] [address] Gastroenterology 08/13/21 Rosalba Pendleton APRN HANDER IN [address] [place] [address] 968185 Nurse Practitioner Neurology 09/05/21 Rosalba Pendleton APRN HANDER IN [address] [place] [address] 252385 Assigned Neuroscience Provider 11/09/21 Marlo Madsen MD [address] [place] [address] Assigned Heart and Vascular Provider 03/14/22 Abby Vasquez MD [address] [place] [address] Gastroenterology 07/16/22 Airam Hodges PA-C [address] [place] [address] Physician Remediation Technician Surgery 07/19/23 Zain Quintana MD 500 [place] [address] Assigned Surgical Provider 10/07/23 Latricia Pettit PA-C 909 [place] [address] Assigned Gastroenterology Provider 10/15/23 documented as of this encounter
--- OUTSIDE RECORDS SUMMARY | 2023-12-27 14:24 | XMS_ITS | Encounter Summary ---
Author Name Unknown Organization [place] Address [address] [facility] [place] [address] Care Team Providers Care Radio Mechanic Apprentice Name Role Phone Monty Musa MD Primary Care Provider Alfonso Tang Unavailable Unavailable Dayanara Bee MD Unavailable [phone] Min Lange MD Unavailable Unavailable Marlo Madsen MD Unavailable [phone] Mel Buckley RN Unavailable [phone] Douglas Cadet MD Unavailable Rosalba Pendleton APRN ASSISTANT STORE MANAGER Unavaila ble Rosalba Pendleton APRN ASSISTANT STORE MANAGER Unavaila ble Marlo Madsen MD Unavailable [phone] Abby Vasquez MD Unavailable Airam Hodges PA-C Unavailable [phone] Zain Quintana MD Unavailable [phone] Latricia Pettit PA-C Unavailable [phone] Encounter Details Date Type Department Care Team (Late st Contact Info) Description 10/13/2023 [facility] [place] [address] [facility] 4th [place] [phone] Vivian Carter Social History Tobacco Use Types [...] Sex Assigned at Female 10/31/2021 7:59 AM BAGGING MACHINE OPERATOR Gender Identity Female 10/31/2021 7:59 AM BAGGING MACHINE OPERATOR Sexual Orientation Straight 10/31/2021 7: 59 AM BAGGING MACHINE OPERATOR documented as of this encounter Plan of Treatment Upcoming Encounters Date Type Department Care Team (Late st Contact Info) Description 01/05/2024 12:50 PM CDT Therapy Visit [address] 300 [place] [address] Lainey Simon, PT [address] [place] [address] 01/12/2024 12:50 PM CDT Therapy Visit [address] 300 [place] [address] Lainey Simon, PT [address] [place] [address] 01/13/2024 10:00 AM CDT Virtual Visit [facility] [address]rd [place] [phone] Rosalba Pendleton APRN [address] [place] [address] 01/20/2024 8:00 PM CDT Therapy Visit [facility] [address] [place] [phone] 01/26/2024 12:50 PM CDT Therapy Visit [facility] [place] [address] [facility] [address] [place] [address] [place] [address] [place] [address] 02/09/2024 12:50 PM CDT Therapy Visit [facility] [place] [address] [facility] [address] [place] [address] [place] [address] [place], [place] 8[address]807 03/14/2024 10:30 AM CDT Office Visit [facility] [place] [address] [place] [address] [phone] Abhishek Acevedo PA-C [address] [address] 03/21/2024 11:30 AM CDT Office Visit [facility] [address] [phone] Zain Quintana MD [address] [place] [address] 133955 03/21/2024 2:30 PM CDT Virtual Visit [facility] [address] [phone] Latricia Pettit PA-C [address] [place] [address] 104785 06/07/2024 11:20 AM CDT Office Visit [facility] [address] [phone] Latricia Pettit PA-C [address] [place] [address] Abby Vasquez MD [address] [place] [address] documented as of this encounter Visit Diagnoses Not on filedocumented in this encounter Additional Health Concerns Assessment Noted Time PHQ-9 Depression Total Score: 12 023 8:53 AM CDT documented as of this encounter Care Teams Radio Mechanic Apprentice Relationship Specialty Start Date End Date Monty Musa MD [facility] [address] [place] [address] PCP - General Family Medicine 08/13/21 Alfonso Tang [facility] [address] [place] [address] Family Practice 08/13/21 Dayanara Bee MD [address] [place] [address] Pediatrics 12/26/14 Min Lange MD [address] [place] [address] Neurology 03/30/16 Marlo Madsen MD [address] [place] [address] Cardiology 10/27/16 Mel Buckley, RN Nurse Coordinator Physical Medicine and Rehabilitation 12/02/16 Douglas Cadet MD [address] [place] [address] Gastroenterology 08/13/21 Rosalba Pendleton APRN ASSISTANT STORE MANAGER [address] [place], [place] [address] [address] Nurse Practitioner Neurology 09/05/21 Rosalba Pendleton APRN ASSISTANT STORE MANAGER [address] [place], [place] [address] [address] Assigned Neuroscience Provider 11/09/21 Marlo Madsen MD [address] [place] [address] 75 [place] [address] Assigned Heart and Vascular Provider 03/14/22 Abby Vasquez MD [address] [place] [address] Gastroenterology 07/16/22 Airam Hodges PA-C [address] [place] [address] Physician Fern Gatherer Surgery 07/19/23 Zain Quintana MD [address] [place] [address] Assigned Surgical Provider 10/07/23 Latricia Pettit PA-C [address] [place] [address] Assigned Gastroenterology Provider 10/15/23 documented as of this encounter
--- OUTSIDE RECORDS SUMMARY | 2023-12-27 14:24 | XMS_ITS | Encounter Summary ---
Author Name Unknown Organization [place] Address [address] [facility] [place] [address] Care Team Providers Care Patient Support Assistant Name Role Phone Monty Musa MD Primary Care Provider Jatinder Tang Unavailable Unavailable Dayanara Bee MD Unavailable [phone] Min Lange MD Unavailable Unavailable Marlo Madsen MD Unavailable [phone] Mel Buckley RN Unavailable [phone] Douglas Cadet MD Unavailable [phone] Rosalba Pendleton APRN TRANSPORT TECHNICIAN Unavaila ble Rosalba Pendleton APRN TRANSPORT TECHNICIAN Unavaila ble Marlo Madsen MD Unavailable [phone] Abby Vasquez MD Unavailable Abby Vasquez MD Unavailable Airam Hodges PA-C Unavailable [phone] Reason for Visit * Diagnostic Imaging XR (Routine) - Pending Review Specialty Diagnoses / Procedures Referred By Contac t Referred To Contact Radiology. Diagnoses Slow transit constipation Procedures XR Abdomen 1 View Zain Quintana MD [address] [place] [address] Referral ID Status Reason Start Date Expiration Date V isits Requested Visits Authorized [id number] Pending Review 09/21/2023 09/20/2024 1 1 Encounter Details Date Type Department Care Team (Latest Contact Info) Description 10/01/2023 9:30 AM HOME ATTENDANT Ancillary Procedure [address] [place] [phone] Zain Quintana MD [address] [place] [address] [phone] Slow transit constipation Social History Tobacco Use [...] Assigned at Female 10/31/2021 7:59 AM HOME ATTENDANT Gender Identity Female 10/31/2021 7:59 AM HOME ATTENDANT Sexual Orientation Straight 10/31/2021 7: 59 AM HOME ATTENDANT documented as of this encounter Plan of Treatment Upcoming Encounters Date Type Department Care Team (Late st Contact Info) Description 01/05/2024 12:50 PM CDT Therapy Visit [address] [place] [address] Lainey Simon, PT [address] [place] [address] 01/12/2024 12:50 PM CDT Therapy Visit [address] [place] [address] Lainey Simon, PT [address] [place] [address] 01/13/2024 10:00 AM CDT Virtual Visit [facility] [address] 3rd [place] [phone] Rosalba Pendleton, MAXIMILIANO TRANSPORT TECHNICIAN [address] [place] [address] [id number] [place] [address] 01/20/2024 8:00 PM CDT Therapy Visit [facility] [address] [phone] 01/26/2024 12:50 PM CDT Therapy Visit [address] [address] Lainey Simon, PT [address] [place] [address] 02/09/2024 12:50 PM CDT Therapy Visit [address] [address] Lainey Simon, PT [address] [place] [address] 03/14/2024 10:30 AM CDT Office Visit [address] [phone] Abhishek Acevedo PA-C [address] [address] 03/21/2024 11:30 AM CDT Office Visit [facility] [address] 4th [place] [phone] Zain Quintana MD [address] [place] [address] 03/21/2024 2:30 PM CDT Virtual Visit [facility] [address] [phone] Latricia Pettit PA-C [address] [place] [address] 138855 06/07/2024 11:20 AM CDT Office Visit [facility] [address] [phone] Latricia Pettit PA-C [address] [place] [address] Abby Vasquez MD [address] [place] [address] [phone] documented as of this encounter Procedures Procedure Name Priority Date/Time Associated Diagnosis Comments XR ABDOMEN 1 VIEW Routine 10/01/2023 8:5 8 AM HOME ATTENDANT Slow transit constipation documented in this encounter Results * XR Abdomen 1 View (10/01/2023 8:58 AM HOME ATTENDANT) Anatomical Region Laterality Modality Abdomen/Pelvis Computed Radiogr aphy Impressions 10/01/2023 9:33 AM HOME ATTENDANT IMPRESSION: Two Sitz markers remain in the rectum. Remainder no longer present. Small to moderate amount of stool. ??Nonobstructed bowel gas pattern. JATINDER ARREOLA MD Narrative 10/01/2023 9:33 AM HOME ATTENDANT ABDOMEN ONE VIEW ??10/01/2023 8:58 AM HISTORY: Sitz Marker Study. Slow transit constipation. COMPARISON: September 29, 2023 Procedure Note Jatinedr Arreola MD - 10/01/2023 ABDOMEN ONE VIEW [...] documented as of this encounter Care Teams Patient Support Assistant Relationship Specialty Start Date End Date Monty Musa MD [facility] [address] [place] [address] PCP - General Family Medicine 08/13/21 Jatinder Tang [facility] [address] [place] [address] [facility] 08/13/21 Dayanara Bee MD [address] [address] Pediatrics 12/26/14 Min Lange MD [address] [address] Neurology 03/30/16 Marlo Madsen MD [address] [place] [address] Cardiology 10/27/16 Mel Buckley, DIAZ Nurse Coordinator Physical Medicine and Rehabilitation 12/02/16 Douglas Cadet MD [address] [place], [place] 967505 Gastroenterology 08/13/21 Rosalba Pendleton APRN TRANSPORT TECHNICIAN [address] [place], [place] [id number] [address] Nurse Practitioner Neurology 09/05/21 Rosalba Pendleton APRN TRANSPORT TECHNICIAN [address] [facility] [id number] [place], [place] [phone] Assigned Neuroscience Provider 11/09/21 Marlo Madsen MD [address] [place] [address] [address] [place], [place] [phone] Assigned Heart and Vascular Provider 03/14/22 Abby Vasquez MD [address] [place] [address] 518695 Gastroenterology 07/16/22 Abby Vasquez MD [address] [place] [address] [phone] Assigned PCP 09/26/22 10/06/23 Airam Hodges PA-C [address] [place] [address] [id number] Physician Chain Puller Surgery 07/19/23 documented as of this encounter
--- OUTSIDE RECORDS SUMMARY | 2023-12-27 14:24 | XMS_ITS | Encounter Summary ---
Author Name Unknown Organization [place] Address [address] [facility] [place] [address] Care Team Providers Care Organic Chemistry Teacher Name Role Phone Monty Musa MD Primary Care Provider [phone] Alfonso Tang Unavailable Unavailable Dayanara Bee MD Unavailable [phone] Min Lange MD Unavailable Unavailable Marlo Madsen MD Unavailable [phone] Mel Buckley RN Unavailable [phone] Douglas Cadet MD Unavailable [phone] Rosalba Pendleton APRN DINKEY DISPATCHER Unavaila ble Rosalba Pendleton APRN DINKEY DISPATCHER Unavaila ble Marlo Madsen MD Unavailable [phone] Abby Vasquez MD Unavailable Abby Vasquez MD Unavailable Airam Hodges PA-C Unavailable [phone] Encounter Details Date Type Department Care [...] Sex Assigned at Female 10/31/2021 7:59 AM CLAIMS ADJUSTER Gender Identity Female 10/31/2021 7:59 AM CLAIMS ADJUSTER Sexual Orientation Straight 10/31/2021 7: 59 AM CLAIMS ADJUSTER documented as of this encounter Plan of Treatment Upcoming Encounters Date Type Department Care Team (Late st Contact Info) Description 01/05/2024 12:50 PM CDT Therapy Visit [address] [address] Lainey Simon, PT [address] [place] [address] 01/12/2024 12:50 PM CDT Therapy Visit [address] [address] Lainey Simon, PT [address] [place] [address] 01/13/2024 10:00 AM CDT Virtual Visit [facility] [address] 3rd [place] [phone] Rosalba Pendleton, SANDER OPERATOR [facility] [address] [id number] [address] 01/20/2024 8:00 PM CDT Therapy Visit [facility] [address] [phone] 01/26/2024 12:50 PM CDT Therapy Visit [address] [address] Lainey Simon, PT [address] [place] [address] 02/09/2024 12:50 PM CDT Therapy Visit [facility] [address] [facility] [address] [place] [address] [place] [address] [place], [place] 9[address] 03/14/2024 10:30 AM CDT Office Visit [facility] [place] [address] [facility] [address] [place] [phone] Abhishek Acevedo PA-C [address] [facility] 103 [place], [place] [phone] 03/21/2024 11:30 AM CDT Office Visit [facility] [address] [phone] Zain Quintana MD [address] [place] [address] [id number] 03/21/2024 2:30 PM CDT Virtual Visit [facility] [address] [phone] Latricia Pettit PA-C [address] [place] [address] [phone] 06/07/2024 11:20 AM CDT Office Visit [facility] [address] [phone] Latricia Pettit PA-C [address] [place] [address] [phone] Abby Vasquez MD [address] [place] [address] documented as of this encounter Visit Diagnoses Not on filedocumented in this encounter Additional Health Concerns Assessment Noted Time PHQ-9 Depression Total Score: 12 023 8:53 AM CDT documented as of this encounter Care Teams Organic Chemistry Teacher Relationship Specialty Start Date End Date Monty Musa MD [facility] [address] [place] [address] PCP - General Family Medicine 08/13/21 Alfonso Tang [facility] [address] [place] [address] [facility] 08/13/21 Dayanara Bee MD [address] [place] [address] Pediatrics 12/26/14 Min Lange MD [address] [place] [address] Neurology 03/30/16 Marlo Madsen MD [address] [place] [address] Cardiology 10/27/16 Mel Buckley, RN Nurse Coordinator Physical Medicine and Rehabilitation 12/02/16 Douglas Cadet MD [address] [place] [address] Gastroenterology 08/13/21 Rosalba Pendleton APRN DINKEY DISPATCHER [address] [place], [place] [id number] [address] Nurse Practitioner Neurology 09/05/21 Rosalba Pendleton APRN DINKEY DISPATCHER [address] [place] [address] [id number] [place], [place] [phone] Assigned Neuroscience Provider 11/09/21 Marlo Madsen MD [address] [place] [address] [facility] [address] [place] [address] Assigned Heart and Vascular Provider 03/14/22 Abby Vasquez MD [address] [place] [address] Gastroenterology 07/16/22 Abby Vasquez MD [address] [place] [address] Assigned PCP 09/26/22 10/06/23 Airam Hodges PA-C [address] [place] [address] Physician Emd Teacher Surgery 07/19/23 documented as of this encounter
--- OUTSIDE RECORDS SUMMARY | 2023-12-27 14:24 | XMS_ITS | Encounter Summary ---
Author Name Unknown Organization [facility] Address [address] [facility] [place] [address] Care Team Providers Care Mysql Database Administrator Name Role Phone Monty Musa MD Primary Care Provider Alfonso Tang Unavailable Unavailable Dayanara Bee MD Unavailable [phone] Min Lange MD Unavailable Unavailable Marlo Madsen MD Unavailable [phone] Mel Buckley RN Unavailable [phone] Douglas Cadet MD Unavailable Rosalba Pendleton APRN KNOT BUMPER Unavaila ble Rosalba Pendleton APRN KNOT BUMPER Unavaila ble Marlo Madsen MD Unavailable [phone] Abby Vasquez MD Unavailable Airam Hodges PA-C Unavailable [phone] Zain Quintana MD Unavailable [phone] Latricia Pettit PA-C Unavailable [phone] Reason for Visit * Reason Comments RECHECK Encounter Details Date Type Department Care Team (Latest Contact Info) Description 10/26/2023 1:00 PM LOADER UNLOADER Virtual Visit [facility] [address] [place] [address] Latricia Pettit PA-C [address] [place] [address] Constipation, unspecified constipation type; Pelvic floor dysfunction [...] Sex Assigned at Female 10/31/2021 7:59 AM LOADER UNLOADER Gender Identity Female 10/31/2021 7:59 AM LOADER UNLOADER Sexual Orientation Straight 10/31/2021 7: 59 AM LOADER UNLOADER documented as of this encounter Patient Instructions * Patient Instructions* Latricia Pettit PA-C - 10/26/2023 1:00 PM LOADER UNLOADER It was a pleasure taking care of you today. I've included a brief summary of our discussion and care plan from today's visit below. Please review this information with your primary care provider. My recommendations are summarized as follows: - Continued evaluation with pelvic floor therapy - Please avoid constipating medications including oral iron supplementation - Continue Trulance daily, 10 g of fiber daily, MiraLAX 1 heaping capful daily (increased to twice daily if no bowel movement that day), magnesium oxide 500 mg nightly (increased to 1000 mg if no bowel movement that day). - If no BM for 3-4 days, use tap water enema or glycerin suppository up to x2 daily if you do not receive relief with the use of complete Miralax bowel cleanse. See action plan. - Contact GI clinic if you do not have success with above recommendations, and then can consider therapeutic gastrograffin enema Action Plan: - if no BM for 3-4 days --> trial Fleets enemas twice daily or glycerin suppositories twice daily - if no BM for 4-5 days --> trial Miralax cleanout (ok for 4-16 capfuls of Miralax - drinking one glass every 15 minutes or so) Bowel Cleanse: -- superannuation clerk ONE Miralax bottle (238 g) and TWO 32 once Gatorade (64 ounces). Mix the two. Drink mixture over the course of 3-4 hours. You should experience loose bowel movements that are watery in consistency when complete. -- The day after the cleanout, immediately resume Miralax 3 caps full daily x 1 week, then go to 1-2 caps fulls per day ongoing. To schedule endoscopic procedures you may call: [phone] To schedule radiology (imaging) tests you may call: [phone] To schedule an ENT appointment you may call: [phone] Please call my nurse Kaur ([phone]), Elisa ([phone]) with any questions or concerns. Return to GI Clinic in 4 months to review your progress. Who do I call with any questions after my visit? Please be in touch if there are any further questions that arise following today's visit. There aremultiple ways to contact your gastroenterology care team. During business hours, you may reach a Gastroenterology nurse at [phone] and choose option 3. To schedule or reschedule an appointment, please call [phone]. You can always send a secure message through Unbabel. Unbabel messages are answered by your nurse or doctor typically within 24 hours. Please allow extra time on weekends and holidays. For urgent/emergent questions after business hours, you may reach the on-call GI Fellow by contacting the [facility] dehydrating press operator at . How will I get the results of any tests ordered? You will receive all of your results. If you have signed up for Public Solution[employer], any tests ordered at your visit will be available to you after your physician reviews them. Typically this takes 1-2 weeks. Ifthere are urgent results that require a change in your care plan, your physician or nurse will callyou to discuss the next steps. What is Public Solutionhart? Unbabel is a secure way for you to access all of your healthcare records from the [facility]. It is a web based computer program, so you can sign on to it from any location. It also allows you to send secure messages to your care team. I recommend signing up for Unbabel access if you have not already done so and are comfortable with using a computer. How to I schedule a follow-up visit? If you did not schedule a follow-up visit today, please call [phone] to schedule a follow-up office visit. If you feel you received exceptional care and are interested in supporting the clinical and research goals of Latricia Pettit PA-C or the Division of Gastroenterology, Hepatology, and Nutrition please contact [email or web address] from the [facility] to discuss opportunities to donate. Sincerely, Latricia Pettit PA-C Division of Gastroenterology, Hepatology, and Nutrition [facility] ER UNLOADER documented in this encounter Progress Notes * Latricia Pettit PA-C - 10/26/2023 1:00 PM CST Images from the original note were not included. Virtual Visit Details Type of service: Video Visit Video Start Time: 105 PM Video End Time:126PM Originating Location (pt. Location): Home Distant Location (provider location): Off-site Platform used for Video Visit: [facility] Gastroenterology Visit for: Latricia Hatch 1990 Reason for Visit: chief complaint Referred by: Pedro / [facility] [id number] Patient Care Team: Monty Musa MD as PCP - General (Family Medicine) Dayanara Bee MD as MD (Pediatrics) Min Lange MD as MD (Neurology) Marlo Madsen MD as MD (Cardiology) Mel Buckley, DIAZ as Nurse Coordinator (Physical Medicine and Rehabilitation) Alfonso Tang (Inactive) (Family Practice) Douglas Cadet MD as (Gastroenterology) Rosalba Pendleton APRN CNP as Nurse Practitioner (Neurology) Rosalba Pendleton APRN CNP as Assigned Neuroscience Provider Marlo Madsen MD as Assigned Heart and Vascular Provider Abby Vasquez MD as MD (Gastroenterology) Airam Hodges PA-C as Physician News Camera Operator (Surgery) Zain Quintana MD as Assigned Surgical Provider Latricia Pettit PA-C as Assigned Gastroenterology Provider History of Present Illness: Latricia Hatch is a 33 year old female with significant past medical history pertinent for dysautonomia, frequent migraine HAs, chronic diffuse abdominal pain, constipation, nausea, and prior adenomatous polyp who is presenting as a new patient in consultation at the request of Dr. Vasquez with a chief complaint of constipation/irregular bowel habits. Interval History October 26, 2023: Throughout September was stooling 2x per week. Now in October has been stooling 4x daily within 1-2 hours with use of Trulance. In addition to the Trulance will take at a minimum 1 heaping capful of Miralax if needed two, 10 g of fiber, 500mg Magnesium at night and if haven't stooled that night willincrease to 1000. Had started oral iron 3-4 weeks prior taking this every other day. Carbonyl iron 65 mg Denies weight loss, incontinence of feces, melena, hematochezia and BRBR. Interval History April 24, 2023: Today Latricia reports that her bowel patterns are cyclical. Describes having 3 days of large bowel movements most consistent with [place] Stool Scale Type 4. She then will [...] pancreatic, liver or colon). 12/09/2022 HPI: Ms Latricia Hatch is a very pleasant 32 yo female with dysautonomia, frequent migraine HAs, chronic diffuse abdominal pain, constipation, nausea, and prior adenomatous polyp who returns to GI clinic forfollow-up of her constipation and nausea. She was previously seen by Dr. Dawson and Dr. Vasquez prior to moving to [place] in 2017 after getting . She moved back to [place] recently and was seen by Dr. 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 Briefly, she was started on Linzess around 2013 for chronic constipation which improved her constipation and resulted in BMs every other day. In 2016, she moved to [place] and stopped Linzess as she felt her [...] polyps. She subsequently had another colonoscopy in [place] which she reports was normal. In early 2020, she had a colonoscopy in [place] which was reported to be negative for adenoma. We do not have these reports at this time. Esophageal Questionnaire(s) BEDQ Questionnaire No data to display No data to display Eckardt Questionnaire No data to display Promis 10 Questionnaire No data to display STUDIES & PROCEDURES: EGD: Colonoscopy: 10/2021 [facility] 11/2016 Findings: Two semi-sessile polyps were found [...] limits of normal for gastric emptying. XRAY: 10/01/2022 Sitz Marker Study IMPRESSION: Two Sitz markers remain in the rectum. Remainder no longer present. Small to moderate amount of stool. Nonobstructed bowel gas pattern. Other: 11/2022 [facility] Prior medical [...] and Allergies: Outpatient Encounter Medications as of 10/26/2023 Medication Sig Dispense Refill ??? AIMOVIG 140 [...] Take 50 mg by mouth daily ??? midodrine (PROAMATINE) 5 MG tablet Take 2 tablets (10mg) in the morning, and 1 tablet (5mg) in the afternoon. Do not take within 4 hours lying down 270 tablet 1 ??? ondansetron (ZOFRAN ODT) 4 MG ODT tab Take 1 tablet by mouth every 8 hours as needed ??? order for DME Equipment being ordered: Micro climate cooling vest 1 kit 0 ??? plecanatide (TRULANCE) 3 MG tablet TAKE ONE TABLET BY MOUTH ONE TIME DAILY 30 tablet 1 ??? prochlorperazine (COMPAZINE) 5 MG tablet Take 1-2 tablets (5-10 mg) by mouth every 6 hours as needed for nausea or vomiting 20 tablet 3 ??? Zavegepant HCl 10 MG/ACT SOLN Butternut 10 mg in nostril at onset of headache (migraine. Max one spray in 24 hours) 6 each 11 ??? ZOLMitriptan (ZOMIG-ZMT) 5 MG ODT Take 1 tablet (5 mg) by mouth at onset of headache for migraine May repeat in 2 hours. Max 2 tablets/24 hours. 18 tablet 11 No facility-administered encounter medications on file as of 10/26/2023. Allergies Allergen Reactions ??? Amoxicillin-Pot Clavulanate GI Disturbance ??? Vicodin Hp [Hydrocodone-Acetaminophen] Review of systems: A full 10 point review of systems was obtained and was negative except for the pertinent positives and negatives stated within the HPI. Objective Findings: Physical Exam: Constitutional: There were no vitals taken for this visit. General: Alert, cooperative, no distress, well-appearing Head: [...] Pathology Lab Results Component Value Date WBC 4.4 07/09/2023 WBC 11.4 (H) 07/15/2022 WBC 4.7 03/04/2022 HGB 13.0 07/09/2023 HGB 12.3 07/15/2022 HGB 10.0 (L) 07/15/2022 PLT 249 07/09/2023 PLT 254 07/15/2022 PLT 222 03/04/2022 ALT 24 07/09/2023 ALT 22 03/04/2022 ALT 33 01/07/2015 AST 27 07/09/2023 AST 23 03/04/2022 AST 17 01/07/2015 NA 135 07/09/2023 NA 136 07/15/2022 NA 135 03/04/2022 BUN 8.6 07/09/2023 BUN 7.0 07/15/2022 BUN 9 03/04/2022 CO2 27 07/09/2023 CO2 25 07/15/2022 CO2 25 03/04/2022 TSH 0.65 03/04/2022 TSH 0.56 10/30/2013 Liver [...] 10/05/2013 Priority: Medium Assessment and Plan Assessment/Plan: Latricia Hatch is a 33 year old female with significant past medical history pertinent for dysautonomia, frequent migraine HAs, chronic diffuse abdominal pain, constipation, nausea, and prior adenomatous polyp who is presenting as a new patient in consultation at the request of Dr. Vasquez with a chief complaint of constipation/irregular bowel habits. #Constipation #Pelvic Floor Dysfunction Latricia presents today with concerns of chronic constipation. She has previously tried secretagogues both Linzess and Amitiza with initial success however results had waned over time. Additionally, shehas underwent pelvic floor therapy for approximately 6 weeks time with biofeedback with reports of minimal improvement in stool frequency however has previously reported decreased straining/pushing and improvement in her ability to initiate a bowel movement. At her last office visit she had developed less frequent stools with Linzess 290 mcg daily and was started on an osmotic laxative magnesium oxide 500 mg once nightly which was recommended to be increased to 1000 mg nightly if needed. Subsequently she was seen in office by Dr. Neva Vasquez 07/14/2023nd patient was transition to Trulance as previous adjustments with the addition of osmotic laxatives were unsuccessful. Latricia's current bowel regimen consists of Trulance daily, 10 g of fiber daily,MiraLAX 1 heaping capful daily (increased to twice daily if no bowel movement that day), magnesium oxide 500 mg nightly (increased to 1000 mg if no bowel movement that day) with stools occurring 4 times per week. Additionally Latricia was seen by colorectal surgery 09/21/2023 who recommended completion of Sitz marker study and extended pelvic floor therapy. Sitz marker test was negative on day 5 with 2 markers remaining within the rectum. This was completed off medications which were stopped 2 days prior. Additionally Latricia since started extended pelvic floor therapy which she attendeds to 6-7 months time. First appointment 10/21/2023. Patient was previously noted to have history of depression and may be at risk for suicidal ideationwith the use of Motegrity. If this is decided to be used in the future caution should be had. Additional considerations would be to add a secondary secretagogues such as Amitiza to her current regimen if she again develops less frequent bowel movements. - Continued evaluation with pelvic floor therapy - Please avoid constipating medications including oral iron supplementation - Continue Trulance daily, 10 g of fiber daily, MiraLAX 1 heaping capful daily (increased to twice daily if no bowel movement that day), magnesium oxide 500 mg nightly (increased to 1000 mg if no bowel movement that day). - If no BM for 3-4 days, use tap water enema or glycerin suppository up to x2 daily if you do not receive relief with the use of complete Miralax bowel cleanse. See action plan. - Contact GI clinic if you do not have success with above recommendations, and then can consider therapeutic gastrograffin enema ?? Action Plan: - if no BM for 3-4 days --> trial Fleets enemas twice daily or glycerin suppositories twice daily - if no BM for 4-5 days --> trial Miralax cleanout (ok for 4-16 capfuls of Miralax - drinking one glass every 15 minutes or so) #Colorectal Cancer Screening Colonoscopy 2016 with 2 hyperplastic polyps. Previous colonoscopies with adenomas. Family history pertinent for father with colorectal cancer at age 50. 10/2021 colonoscopy with polyps that were benign either normal colonic tissue or hyperplastic. Recall per performing provider was 5 years secondary to family history of father with colon cancer. Due for repeat colonoscopy in 2026. Follow up plan: Return to clinic [address] Vasquez followed by OV with myself 6 months from today or sooneras needed. The risks and benefits of my recommendations, as well as other treatment options were discussed with the patient and any available family today. All questions were answered. o Follow up: As planned above. Today, I personally spent 21 minutes in direct face to face time with the patient, of which greater than 50% of the time was spent in patient education and counseling as described above. Approximately 21 minutes were spent on indirect care associated with the patient's consultation including but not limited to review of: patient medical records to date, clinic visits, hospital records, lab results, imaging studies, procedural documentation, and coordinating care with other providers. The findings from this review are summarized in the above note. All of the above accounted for a cumulative time of 42 minutes and was performed on the date of service. The patient verbalized understanding of the plan and was appreciative for the time spent and information provided during the office visit. Latricia Pettit PA-C Division of Gastroenterology, Hepatology, and Nutrition [facility] Documentation assisted by voice recognition and documentation system. ER UNLOADER documented in this encounter Nursing Notes * Leann Shelton - 10/26/2023 1:00 PM CST Is the patient currently in the state of [place]? YES Visit mode:VIDEO If the visit is dropped, the patient can be reconnected by: VIDEO VISIT: Send to e-mail at: [email or web address] Will anyone else be joining the visit? NO (If patient encounters technical issues they should call [phone] :[phone]) How would you like to obtain your AVS? MyChart Are changes needed to the allergy or medication list? No Reason for visit: RECHECK Leann Hudson. Jacky Cheng [facility] ER UNLOADER documented in this encounter Plan of Treatment Upcoming Encounters Date Type Department Care Team (Late st Contact Info) Description 01/05/2024 12:50 PM CDT Therapy Visit [address] [address] Lainey Simon, PT [address] [place] [id number] 01/12/2024 12:50 PM CDT Therapy Visit [address] [address] Lainey Simon, PT [address] [place] [address] [id number] 01/13/2024 10:00 AM CDT Virtual Visit [facility] Neurology Clinic [address] 3rd [place] [phone] Rosalba Pendleton, MAXIMILIANO [id number] [place] [address] 01/20/2024 8:00 PM CDT Therapy Visit [facility] Sleep [address] [phone] 01/26/2024 12:50 PM CDT Therapy Visit [address] [address] [place] [address] [place] [address] 02/09/2024 12:50 PM CDT Therapy Visit [facility] Rehabilitation Services [facility] [address] [facility] [address] [place] [address] [place] [address] [place], [place] [phone] 03/14/2024 10:30 AM CDT Office Visit [facility] [place] [address] [facility] [address] [place] [phone] Abhishek Acevedo PA-C [address] [facility] [address] [place], [place] [id number] 03/21/2024 11:30 AM CDT Office Visit [facility]al Surgery [facility] [address] [phone] Zain Quintana MD [address] [place] [phone] 03/21/2024 2:30 PM CDT Virtual Visit [facility] Gastroenterology Clinic [address] [phone] Latricia Pettit PA-C [address] [place] [address] [phone] 06/07/2024 11:20 AM CDT Office Visit [facility] [address] [phone] Latricia Pettit PA-C [address] [place] [address] [phone] Abby Vasquez MD [address] [place] [address], [place] [address] documented as of this encounter Visit Diagnoses Diagnosis Constipation, unspecified constipation type Pelvic floor dysfunction Pelvic muscle wasting documented in this encounter Additional Health Concerns Assessment Noted Time PHQ-9 Depression Total Score: 12 024 12:52 PM LOADER UNLOADER documented as of this encounter Care Teams Mysql Database Administrator Relationship Specialty Start Date End Date Monty Musa MD [facility] [address] [place] [address] PCP - General Family Medicine 08/13/21 Alfonso Tang [facility] [address] [place] [address] [facility] 08/13/21 Dayanara Bee MD [address] [address] Pediatrics 12/26/14 Min Lange MD [address] [address] Neurology 03/30/16 Marlo Madsen MD [address] [address] Cardiology 10/27/16 Mel Buckley, RN Nurse Coordinator Physical Medicine and Rehabilitation 12/02/16 Doulgas Cadet MD [address] [place] [address] Gastroenterology 08/13/21 Rosalba Pendleton APRN KNOT BUMPER [address] [place], [place] [id number] [address] Nurse Practitioner Neurology 09/05/21 Rosalba Pendleton APRN KNOT BUMPER [address] [facility] [id number] [place], [place] [address] Assigned Neuroscience Provider 11/09/21 Marlo Madsen MD [address] [place] [address] 75 [place], [place] [address] Assigned Heart and Vascular Provider 03/14/22 Abby Vasquez MD [address] [place] [address] [id number] Gastroenterology 07/16/22 Airam Hodges PA-C [address] [place], [place] [phone] Physician News Camera Operator Surgery 07/19/23 Zain Quintana MD [address] [place], [place] [phone] Assigned Surgical Provider 10/07/23 Latricia Pettit PA-C [address] [place] [address] Assigned Gastroenterology Provider 10/15/23 documented as of this encounter
--- OUTSIDE RECORDS SUMMARY | 2023-12-27 14:24 | XMS_ITS | Encounter Summary ---
Author Name Unknown Organization [place] Address [address] [place] [address] Care Team Providers Care Access Control Specialist Name Role Phone Monty Musa MD Primary Care Provider Alfonso Tang Unavailable Unavailable Dayanara Bee MD Unavailable [phone] Min Lange MD Unavailable Unavailable Marlo Madsen MD Unavailable [phone] Mel Buckley RN Unavailable [phone] Douglas Cadet MD Unavailable [phone] Rosalba Pendleton APRN EXECUTIVE CHAIRMAN Unavaila ble Rosalba Pendleton APRN EXECUTIVE CHAIRMAN Unavaila ble Marlo Madsen MD Unavailable [phone] Abby Vasquez MD Unavailable Abby Vasquez MD Unavailable Airam Hodges PA-C Unavailable [phone] Reason for Visit * Reason Comments Medication Refill Trulance Oral Tablet 3 MG Encounter Details Date Type Department Care Team (Late st Contact Info) Description 09/26/2023 [facility] [place] [address] [facility] [address] 4th [place] [phone] Abby Vasquez MD 9 [place] [address] Medication Refill ( Trulance Oral Tablet 3 [...] Sex Assigned at Female 10/31/2021 7:59 AM STONE POLISHER MACHINE Gender Identity Female 10/31/2021 7:59 AM STONE POLISHER MACHINE Sexual Orientation Straight 10/31/2021 7: 59 AM STONE POLISHER MACHINE documented as of this encounter Miscellaneous Notes * Telephone Encounter - Teresa Colon RN - 09/29/2023 8:27 AM STONE POLISHER MACHINE Trulance Oral Tablet 3 MG Last Written Prescription Date: 07/14/23 Last Fill Quantity: 30, # refills: 1 Last Office Visit : 07/14/23 Future Office visit: 10/26/23 RF per protocol. E POLISHER MACHINE documented in this encounter Plan of Treatment Upcoming Encounters Date Type Department Care Team (Late st Contact Info) Description 01/05/2024 12:50 PM CDT Therapy Visit [address] [address] Lainey Simon, PT [address] [place] [address] 01/12/2024 12:50 PM CDT Therapy Visit [address] [address] Lainey Simon, PT [address] [place] [address] 01/13/2024 10:00 AM CDT Virtual Visit [facility] [address] 3rd [place] [phone] Rosalba Pendletno, MAXIMILIANO EXECUTIVE CHAIRMAN [address] [place] [address] [id number] [place] [address] 01/20/2024 8:00 PM CDT Therapy Visit [facility] Sleep [address] [phone] 01/26/2024 12:50 PM CDT Therapy Visit [facility] [address] [place] [address] Lain[place], [place] [address] [place] [address] 02/09/2024 12:50 PM CDT Therapy Visit [address] [address] L[place], [place] [address] [place] [address] 03/14/2024 10:30 AM CDT Office Visit [facility] Sleep [address] [place] [phone] Abhishek Acevedo PA-C [address] [address] 03/21/2024 11:30 AM CDT Office Visit [facility] [address] 4th [place] [phone] Zain Quintana MD [address] [place] [address] 096885 03/21/2024 2:30 PM CDT Virtual Visit [facility] [address] [phone] Latricia Pettit PA-C [address] [place] [address] 466755 06/07/2024 11:20 AM CDT Office Visit [facility] [place] [facility] [address] [phone] Latricia Pettit PA-C [address] [place] [address] 675295 Abby Vasquez MD [address] [place] [address] 528845 documented as of this encounter Visit Diagnoses Diagnosis Irritable bowel syndrome with constipation Irritable bowel syndrome documented in this encounter Additional Health Concerns Assessment Noted Time PHQ-9 Depression Total Score: 12 023 8:53 AM CDT documented as of this encounter Care Teams Access Control Specialist Relationship Specialty Start Date End Date Monty Musa MD [facility] [address] [place] [address] PCP - General Family Medicine 08/13/21 Alfonso Tang [facility] [address] [place] [address] Family Practice 08/13/21 Dayanara Bee MD [address] [place] [address] Pediatrics 12/26/14 Min Lange MD [address] [address] Neurology 03/30/16 Marlo Madsen MD [address] [address] Cardiology 10/27/16 Mel Buckley, RN Nurse Coordinator Physical Medicine and Rehabilitation 12/02/16 Douglas Cadet MD [address] [place] [address] Gastroenterology 08/13/21 Rosalba Pendleton APRN EXECUTIVE CHAIRMAN [address] [place] [address] Nurse Practitioner Neurology 09/05/21 Rosalba Pendleton APRN EXECUTIVE CHAIRMAN [address] [place] [address] Assigned Neuroscience Provider 11/09/21 Marlo Madsen MD [address] [place] [address] Assigned Heart and Vascular Provider 03/14/22 Abby Vasquez MD [address] [place] [address] Gastroenterology 07/16/22 Abby Vasquez MD [address] [place] [address] Assigned PCP 09/26/22 10/06/23 Airam Hodges PA-C [address] [place] [address] Physician Letter Carrier Surgery 07/19/23 documented as of this encounter
--- OUTSIDE RECORDS SUMMARY | 2023-12-27 14:24 | XMS_ITS | Encounter Summary ---
Author Name Unknown Organization [place] Address [address] [place] [address] Care Team Providers Care Lift Operator Name Role Phone Monty Musa MD Primary Care Provider Alfonso Tang Unavailable Unavailable Dayanara Bee MD Unavailable [phone] Min Lange MD Unavailable Unavailable Marlo Madsen MD Unavailable [phone] Mel Buckley RN Unavailable [phone] Douglas Cadet MD Unavailable Rosalba Pendleton APRN PRINCIPAL EMBEDDED SOFTWARE ENGINEER Unavaila ble Rosalba Pendleton APRN PRINCIPAL EMBEDDED SOFTWARE ENGINEER Unavaila ble Marlo Madsen MD Unavailable [phone] Abby Vasquez MD Unavailable Abby Vasquez MD Unavailable Airam Hodges PA-C Unavailable [phone] Reason for Visit * Diagnostic Imaging XR (Routine) - Pending Review Specialty Diagnoses / Procedures Referred By Contac t Referred To Contact Radiology. Diagnoses Slow transit constipation Procedures XR Abdomen 1 View Zain Quintana MD [address] [place] [address] Referral ID Status Reason Start Date Expiration Date V isits Requested Visits Authorized [id number] Pending Review 09/21/2023 09/20/2024 1 1 Encounter Details Date Type Department Care Team (Latest Contact Info) Description 09/29/2023 9:30 AM MRI ASSISTANT Ancillary Procedure [address] [place] [phone] Zain Quintana MD [address] [place] [address] [id number] Slow transit constipation Social History Tobacco Use [...] Sex Assigned at Female 10/31/2021 7:59 AM MRI ASSISTANT Gender Identity Female 10/31/2021 7:59 AM MRI ASSISTANT Sexual Orientation Straight 10/31/2021 7: 59 AM MRI ASSISTANT documented as of this encounter Plan of Treatment Upcoming Encounters Date Type Department Care Team (Late st Contact Info) Description 01/05/2024 12:50 PM CDT Therapy Visit [address] [place] [address] Lainey Simon, PT [address] [place] [address] 01/12/2024 12:50 PM CDT Therapy Visit [address] [place] [address] Lainey Simon, PT [address] [place] [address] 01/13/2024 10:00 AM CDT Virtual Visit [facility] [address] 3rd [place] [phone] Rosalba Pendleton APRN PRINCIPAL EMBEDDED SOFTWARE ENGINEER [address] [place] [address] [id number] [address] 01/20/2024 8:00 PM CDT Therapy Visit [facility] Sleep [address] [phone] 01/26/2024 12:50 PM CDT Therapy Visit [address] [address] Lainey Simon, PT [address] [place] [address] 02/09/2024 12:50 PM CDT Therapy Visit [address] [address] Lainey Simon, PT [address] [place] [address] 468007 03/14/2024 10:30 AM CDT Office Visit [address] [phone] Abhishek Acevedo PA-C [address] [address] 03/21/2024 11:30 AM CDT Office Visit [facility] [address] 4th [place] [phone] Zain Quintana MD [address] [place] [address] 03/21/2024 2:30 PM CDT Virtual Visit [facility] [address] [phone] Latricia Pettit PA-C [address] [place] [address] 745725 06/07/2024 11:20 AM CDT Office Visit [facility] [address] [phone] Latricia Pettit PA-C [address] [place] [address] Abby Vasquez MD [address] [place] [address] 499755 documented as of this encounter Procedures Procedure Name Priority Date/Time Associated Diagnosis Comments XR ABDOMEN 1 VIEW Routine 09/29/2023 8:5 7 AM MRI ASSISTANT Slow transit constipation documented in this encounter Results * XR Abdomen 1 View (09/29/2023 8:57 AM MRI ASSISTANT) Anatomical Region Laterality Modality Abdomen/Pelvis Computed Radiogr aphy Impressions 09/29/2023 3:13 PM MRI ASSISTANT IMPRESSION: Nonobstructive bowel. Moderate stool. Sitz markers have moved to the distal colon since the prior exam. 24 Sitz markers are identified. BETH AYOUB MD SYSTEM ID: [id number] Narrative 09/29/2023 3:13 PM MRI ASSISTANT ABDOMEN ONE VIEW September 29, 2023 8:57 [...] are identified. BETH AYOUB MD SYSTEM ID: [id number] Zain Quintana MD IMG DIAGNOSTIC IMAGI NG ORDERABLES documented in this encounter Visit Diagnoses Diagnosis Slow transit constipation documented in this encounter Additional Health Concerns Assessment Noted Time PHQ-9 Depression Total Score: 12 023 8:53 AM CDT documented as of this encounter Care Teams Lift Operator Relationship Specialty Start Date End Date Monty Musa MD [facility] [address] [place] [address] PCP - General Family Medicine 08/13/21 Alfonso Tang [facility] [address] [place] [address] Family [facility] 08/13/21 Dayanara Bee MD [address] [address] Pediatrics 12/26/14 Min Lange MD [address] [address] Neurology 03/30/16 Marlo Madsen MD [address] [place] [address] Cardiology 10/27/16 Mel Buckley, RN Nurse Coordinator Physical Medicine and Rehabilitation 12/02/16 Douglas Cadet MD [address] [place] [address] Gastroenterology 08/13/21 Rosalba Pendleton APRN PRINCIPAL EMBEDDED SOFTWARE ENGINEER [address] [place] [address] Nurse Practitioner Neurology 09/05/21 Rosalba Pendleton APRN PRINCIPAL EMBEDDED SOFTWARE ENGINEER [address] [place] [address] [id number] [place], [place] 152645 Assigned Neuroscience Provider 11/09/21 Marlo Madsen MD [address] [place] [address] 75 [place] [address] Assigned Heart and Vascular Provider 03/14/22 Abby Vasquez MD [address] [place] [address] [phone] Gastroenterology 07/16/22 Abby Vasquze MD [address] [place] [address] [phone] Assigned PCP 09/26/22 10/06/23 Airam Hodges PA-C 500 [place] [address] Physician Stock Counter Surgery 07/19/23 documented as of this encounter
--- OUTSIDE RECORDS SUMMARY | 2023-12-27 14:24 | XMS_ITS | Encounter Summary ---
Author Name Unknown Organization [place] Address [address] [place] [address] Care Team Providers Care R And D Lab Technician Name Role Phone Monty Musa MD Primary Care Provider Alfonso Tang Unavailable Unavailable Dayanara Bee MD Unavailable [phone] Min Lange MD Unavailable Unavailable Marlo Madsen MD Unavailable [phone] Mel Buckley RN Unavailable [phone] Douglas Cadet MD Unavailable Rosalba Pendleton APRN PREDATORY GAME HUNTER Unavaila ble Rosalba Pendleton APRN PREDATORY GAME HUNTER Unavaila ble Marlo Madsen MD Unavailable [phone] Abby Vasquez MD Unavailable Airam Hodges PA-C Unavailable [phone] Zain Quintana MD Unavailable [phone] Latricia Pettit PA-C Unavailable [phone] Reason for Visit * Reason Onset Date Comments Prior Authorization 10/25/2023 Encounter Details Date Type Department Care Team (Late st Contact Info) Description 10/25/[address] [facility] [place] [address] [facility] 3rd [place] [address] Rosalba Pendleton APRN [facility] [address] [facility] [id number] [place] [address] Prior Authorization Social History Tobacco Use Types [...] Assigned at Female 10/31/2021 7:59 AM ASSOCIATE RESEARCH SCIENTIST Gender Identity Female 10/31/2021 7:59 AM ASSOCIATE RESEARCH SCIENTIST Sexual Orientation Straight 10/31/2021 7: 59 AM ASSOCIATE RESEARCH SCIENTIST documented as of this encounter Miscellaneous Notes [...] FOR HB SUPPLEMENT Secondary Ins:[employer] PRIME SOLUTION ID:[id number] Pharmacy Information (if different than what is on RX) Name: Phone: CIATE RESEARCH SCIENTIST documented in this encounter Plan of Treatment Upcoming Encounters Date Type Department Care Team (Late st Contact Info) Description 01/05/2024 12:50 PM CDT Therapy Visit [facility] [place] [address] [place] [address] [address] [place], [place] 585937 Lainey Simon PT [address] [place] [address] 01/12/2024 12:50 PM CDT Therapy Visit [address] [address] Lainey Simon, PT [address] [place] [address] 01/13/2024 10:00 AM CDT Virtual Visit [facility] [address] 3rd [place] [phone] Rosalba Pendleton, MAXIMILIANO [address] EC6583DN [place] [address] 01/20/2024 8:00 PM CDT Therapy Visit [facility] Sleep [address] [place] [phone] 01/26/2024 12:50 PM CDT Therapy Visit [address] [address] Lainey Simon, PT [address] [place] [address] 02/09/2024 12:50 PM CDT Therapy Visit [address] [address] Lainey Simon, PT [address] [place] [address] 03/14/2024 10:30 AM CDT Office Visit [address] [place] [phone] Abhishek Acevedo PA-C [address] [address] 03/21/2024 11:30 AM CDT Office Visit [facility] [address] [phone] Zain Quintana MD [address] [place] [address] 617845 03/21/2024 2:30 PM CDT Virtual Visit [facility] [address] [phone] Latricia Pettit PA-C [address] [place] [address] 106875 06/07/2024 11:20 AM CDT Office Visit [facility] [address] [phone] Latricia Pettit PA-C [address] [place] [address] 175885 Abby Vasquez MD [address] [place] [address] 898225 documented as of this encounter Visit Diagnoses Not on filedocumented in this encounter Additional Health Concerns Assessment Noted Time PHQ-9 Depression Total Score: 12 023 8:53 AM CDT documented as of this encounter Care Teams R And D Lab Technician Relationship Specialty Start Date End Date Monty Musa MD [facility] [address] [place] [address] PCP - General Family Medicine 08/13/21 Alfonso Tang [facility] [address] [place] [address] Family Practice 08/13/21 Dayanara Bee MD [address] [address] Pediatrics 12/26/14 Min Lange MD [address] [address] Neurology 03/30/16 Marlo Madsen MD [address] [place] [address] Cardiology 10/27/16 Mel Buckley, RN Nurse Coordinator Physical Medicine and Rehabilitation 12/02/16 Douglas Cadet MD [address] [place] [address] Gastroenterology 08/13/21 Rosalba Pendleton APRN PREDATORY GAME HUNTER [address] [place] [address] 010445 Nurse Practitioner Neurology 09/05/21 Rosalba Pendleton APRN PREDATORY GAME HUNTER [address] [place] [address] Assigned Neuroscience Provider 11/09/21 Marlo Madsen MD [address] [place] [address] 953385 Assigned Heart and Vascular Provider 03/14/22 Abby Vasquez MD [address] [place] [address] Gastroenterology 07/16/22 Airam Hodges PA-C 500 [place] [address] Physician Project Intern Surgery 07/19/23 Zain Quintana MD 500 [place], [place] 114095 Assigned Surgical Provider 10/07/23 Latricia Pettit PA-C 909 [place] [address] Assigned Gastroenterology Provider 10/15/23 documented as of this encounter
--- OUTSIDE RECORDS SUMMARY | 2023-12-27 14:24 | XMS_ITS | Encounter Summary ---
Author Name Unknown Organization [place] Address [address] [place] [address] Care Team Providers Care Home Appliance Technician Name Role Phone Monty Musa MD Primary Care Provider Alfonso Tang Unavailable Unavailable Dayanara Bee MD Unavailable [phone] Min Lange MD Unavailable Unavailable Marlo Madsen MD Unavailable [phone] Mel Buckley RN Unavailable [phone] Douglas Cadet MD Unavailable [phone] Rosalba Pendleton APRN BILLPOSTING SUPERVISOR Unavaila ble Rosalba Pendleton APRN BILLPOSTING SUPERVISOR Unavaila ble Marlo Madsen MD Unavailable [phone] Abby Vasquez MD Unavailable Abby Vasquez MD Unavailable Airam Hodges PA-C Unavailable [phone] Encounter Details Date Type Department Care [...] Sex Assigned at Female 10/31/2021 7:59 AM CIRCUIT BOARD ASSEMBLER Gender Identity Female 10/31/2021 7:59 AM CIRCUIT BOARD ASSEMBLER Sexual Orientation Straight 10/31/2021 7: 59 AM CIRCUIT BOARD ASSEMBLER documented as of this encounter Plan of Treatment Upcoming Encounters Date Type Department Care Team (Late st Contact Info) Description 01/05/2024 12:50 PM CDT Therapy Visit [address] [address] Lainey Simon, PT [address] [place] [address] 01/12/2024 12:50 PM CDT Therapy Visit [address] [address] Lainey Simon, PT [address] [place] [address] 01/13/2024 10:00 AM CDT Virtual Visit [facility] [place] [facility] [address] 3rd [place] [phone] Rosalba Pendleton, ACADEMIC AFFAIRS ASSISTANT [facility] [address] [id number] [place] [address] 01/20/2024 8:00 PM CDT Therapy Visit [facility] [place] [facility] [address] [phone] 01/26/2024 12:50 PM CDT Therapy Visit [address] [address] Lainey Simon, PT [address] [place] [address] 02/09/2024 12:50 PM CDT Therapy Visit [facility] [address] [facility] [address] [place] [address] [place] [address] [place], [place] 230137 03/14/2024 10:30 AM CDT Office Visit [facility] [place] [facility] [place] [address] [facility] 103 [place] [phone] Abhishek Acevedo PA-C 6363 [facility] 103 [place], [place] [phone] 03/21/2024 11:30 AM CDT Office Visit [facility] [address] [phone] Zain Quintana MD [address] [place] [address] [phone] 03/21/2024 2:30 PM CDT Virtual Visit [facility] [address] [phone] Latricia Pettit PA-C [address] [place] [address] 105575 06/07/2024 11:20 AM CDT Office Visit [facility] [address] [phone] Latricia Pettit PA-C [address] [place] [address] 399375 Abby Vasquez MD [address] [place] [address] documented as of this encounter Visit Diagnoses Not on filedocumented in this encounter Additional Health Concerns Assessment Noted Time PHQ-9 Depression Total Score: 12 023 8:53 AM CDT documented as of this encounter Care Teams Home Appliance Technician Relationship Specialty Start Date End Date Monty Musa MD [facility] [address] [place] [address] PCP - General Family Medicine 08/13/21 Alfonso Tang [facility] [address] [place] [address] [facility] 08/13/21 Dayanara Bee MD [address] [place] [address] Pediatrics 12/26/14 Min Lange MD [address] [place] [address] Neurology 03/30/16 Marlo Madsen MD [address] [place] [address] Cardiology 10/27/16 Mel Buckley, RN Nurse Coordinator Physical Medicine and Rehabilitation 12/02/16 Douglas Cadet MD [address] [place] [address] Gastroenterology 08/13/21 Rosalba Pendleton APRN BILLPOSTING SUPERVISOR [address] [place] [address] [address] Nurse Practitioner Neurology 09/05/21 Rosalba Pendleton APRN BILLPOSTING SUPERVISOR [address] [place] [address] [id number] [place], [place] 269125 Assigned Neuroscience Provider 11/09/21 Marlo Madsen MD [address] [place] [address] [facility] [address] [place] [address] Assigned Heart and Vascular Provider 03/14/22 Abby Vasquez MD [address] [place] [address] Gastroenterology 07/16/22 Abby Vasquez MD [address] [place] [address] Assigned PCP 09/26/22 10/06/23 Airam Hodges PA-C [address] [place] [address] Physician Color Mixer Surgery 07/19/23 documented as of this encounter
--- OUTSIDE RECORDS SUMMARY | 2023-12-27 14:24 | XMS_ITS | Encounter Summary ---
Author Name Unknown Organization [place] Address [address] [facility] [place] [address] Care Team Providers Care Paint Process Engineer Name Role Phone Monty Musa MD Primary Care Provider Alfonso Tang Unavailable Unavailable Dayanara Bee MD Unavailable [phone] Min Lange MD Unavailable Unavailable Marlo Madsen MD Unavailable [phone] Mel Buckley RN Unavailable [phone] Douglas Cadet MD Unavailable Rosalba Pendleton APRN MOTORS ASSEMBLER Unavaila ble Rosalba Pendleton APRN MOTORS ASSEMBLER Unavaila ble Marlo Madsen MD Unavailable [phone] Abby Vasquez MD Unavailable Airam Hodges PA-C Unavailable [phone] Zain Quintana MD Unavailable [phone] Latricia Pettit PA-C Unavailable [phone] Encounter Details Date Type Department Care Team [...] Sex Assigned at Female 10/31/2021 7:59 AM RECEPTION INTERVIEWER Gender Identity Female 10/31/2021 7:59 AM RECEPTION INTERVIEWER Sexual Orientation Straight 10/31/2021 7: 59 AM RECEPTION INTERVIEWER documented as of this encounter Plan of Treatment Upcoming Encounters Date Type Department Care Team (Late st Contact Info) Description 01/05/2024 12:50 PM CDT Therapy Visit [address] [place] [address] Lainey Simon, PT [address] [place] [address] 01/12/2024 12:50 PM CDT Therapy Visit [address] [place] [address] Lainey Simon, PT [address] [place] [address] 01/13/2024 10:00 AM CDT Virtual Visit [facility]rology [facility] [address] 3rd [place] [phone] Rosalba Pendleton, COSTUME SPECIALIST [address] [place] [address] 01/20/2024 8:00 PM CDT Therapy Visit [facility] [address] [phone] 01/26/2024 12:50 PM CDT Therapy Visit [address] [address] [place] [address] [place], [place] [address]77 02/09/2024 12:50 PM CDT Therapy Visit [facility] Rehabilitation Services [facility] [address] [facility] [address] [place] [address] [place] [address] [place] [address] 03/14/2024 10:30 AM CDT Office Visit [facility] [place] [address] [facility] 103 [place] [phone] Abhishek Acevedo PA-C 6363 [facility] 103 [place] [address] 03/21/2024 11:30 AM CDT Office Visit [facility] [address] [phone] Zain Quintana MD [address] [place] [address] 420365 03/21/2024 2:30 PM CDT Virtual Visit [facility] Gastroenterology Clinic [address] [phone] Latricia Pettit PA-C [address] [place] [address] 773735 06/07/2024 11:20 AM CDT Office Visit [facility]enterology [facility] [address] [phone] Latricia Pettit PA-C [address] [place] [address] 769355 Abby Vasquez MD 909 [place] [address] documented as of this encounter Visit Diagnoses Not on filedocumented in this encounter Additional Health Concerns Assessment Noted Time PHQ-9 Depression Total Score: 12 023 8:53 AM CDT documented as of this encounter Care Teams Paint Process Engineer Relationship Specialty Start Date End Date Monty Musa MD [facility] [address] [place] [address] PCP - General Family Medicine 08/13/21 Alfonso Tang [facility] [address] [place] [address] Family Practice 08/13/21 Dayanara Bee MD [address] [address] Pediatrics 12/26/14 Min Lange MD [address] [address] Neurology 03/30/16 Marlo Madsen MD [address] [address] Cardiology 10/27/16 Mel Buckley, DIAZ Nurse Coordinator Physical Medicine and Rehabilitation 12/02/16 Douglas Cadet MD [address] [place] [address] Gastroenterology 08/13/21 Rosalba Pendleton APRN MOTORS ASSEMBLER 909 [facility]121[address] [place] [address] Nurse Practitioner Neurology 09/05/21 Rosalba Pendleton APRN [facility] 909 [facility] [id number] [place] [address] Assigned Neuroscience Provider 11/09/21 Marlo Madsen MD [address] [place] [address] 75 [place], [place] 550325 Assigned Heart and Vascular Provider 03/14/22 Abby Vasquez MD [address] [place] [address] 212495 Gastroenterology 07/16/22 Airam Hodges PA-C 500 [place], [place] 347145 Physician Paving Machine Operator Surgery 07/19/23 Zain Quintana MD 500 [place], [place] 829335 Assigned Surgical Provider 10/07/23 Latricia Pettit PA-C [address] [place] [address] 326405 Assigned Gastroenterology Provider 10/15/23 documented as of this encounter
--- OUTSIDE RECORDS SUMMARY | 2023-12-27 14:25 | XMS_ITS | Encounter Summary ---
Author Name Unknown Organization [place] Address [address] [facility] [place] [address] Care Team Providers Care Outpatient Receptionist Name Role Phone Monty Musa MD Primary Care Provider [phone] Alfonso Tang Unavailable Unavailable Dayanara Bee MD Unavailable [phone] Min Lange MD Unavailable Unavailable Marlo Madsen MD Unavailable [phone] Mel Buckley RN Unavailable [phone] Douglas Cadet MD Unavailable [phone] Rosalba Pendleton APRN FRONT END ASSISTANT Unavaila ble Rosalba Pendleton APRN FRONT END ASSISTANT Unavaila ble Douglas Cadet MD Unavailable [phone] Marlo Madsen MD Unavailable [phone] Abby Vasquez MD Unavailable Abby Vasquez MD Unavailable Airam Hodges PA-C Unavailable [phone] Zain Quintana MD Unavailable [phone] Latricia Pettit PA-C Unavailable Encounter Details Date Type Department Care Team (Late st Contact Info) Description 07/10/2023 MyC Medical Advice [facility] Gastroenterology Clinic [address] 4th [place] [address] Abby Vasquez MD [address] [place] [address] Social History Tobacco Use Types Packs/Day Years [...] Sex Assigned at Female 10/31/2021 7:59 AM SLIP SEAT COVERER Gender Identity Female 10/31/2021 7:59 AM SLIP SEAT COVERER Sexual Orientation Straight 10/31/2021 7: 59 AM SLIP SEAT COVERER documented as of this encounter Plan of Treatment Upcoming Encounters Date Type Department Care Team (Late st Contact Info) Description 01/05/2024 12:50 PM CDT Therapy Visit [address] [address] Laniey Simon, PT [address] [place] [address] 01/12/2024 12:50 PM CDT Therapy Visit [address] [address] Lainey Simon, PT [address] [place] [address] 01/13/2024 10:00 AM CDT Virtual Visit [facility] Neurology Clinic [address] 3rd [place] [address] Rosalba Pendleton, MAXIMILIANO [address] [place] [address] 01/20/2024 8:00 PM CDT Therapy Visit [place] [id number] [phone] 01/26/2024 12:50 PM CDT Therapy Visit [address] 300 [place] [address] Lainey Simon, PT [address] [place] [address] 996227 02/09/2024 12:50 PM CDT Therapy Visit [address] [address] [place] [address] [place], [place] 882907 03/14/2024 10:30 AM CDT Office Visit [address] [phone] Abhishek Acevedo PA-C [address] [address] 03/21/2024 11:30 AM CDT Office Visit [facility]al [facility] [address] [phone] Zain Quintana MD [address] [place] [address] 263855 03/21/2024 2:30 PM CDT Virtual Visit [facility] Gastroenterology Clinic [address] [address] Latricia Pettit PA-C [address] [place] [address] 06/07/2024 11:20 AM CDT Office Visit [facility] Gastroenterology Clinic [address] 4th [place] [phone] Latricia Pettit PA-C [address] [place] [address] 822785 Abby Vasquez MD [address] [place] [address] documented as of this encounter Visit Diagnoses Not on filedocumented in this encounter Additional Health Concerns Assessment Noted Time PHQ-9 Depression Total Score: 11 022 11:52 AM CDT documented as of this encounter Care Teams Outpatient Receptionist Relationship Specialty Start Date End Date Monty Musa MD [facility] [address] [place] [address] PCP - General Family Medicine 08/13/21 Alfonso Tang [facility] [address] [place] [address] Family Practice 08/13/21 Dayanara Bee MD [address] [address] Pediatrics 12/26/14 Min Lange MD [address] [address] Neurology 03/30/16 Marlo Madsen MD [address] [address] Cardiology 10/27/16 Mel Buckley, RN Nurse Coordinator Physical Medicine and Rehabilitation 12/02/16 Douglas Cadet MD 500 [place] [address] Gastroenterology 08/13/21 Rosalba Pendleton APRN FRONT END ASSISTANT [address] [place] [address] Nurse Practitioner Neurology 09/05/21 Rosalba Pendleton APRN FRONT END ASSISTANT [address] [place] [address] Assigned Neuroscience Provider 11/09/21 Douglas Cadet MD [address] [place] [address] Assigned Gastroenterology Provider 03/14/22 09/03/23 Marlo Madsen MD [address] [place] [address] 75 [place] [address] Assigned Heart and Vascular Provider 03/14/22 Abby Vasquez MD [address] [place] [address] Gastroenterology 07/16/22 Abby Vasquez MD [address] [place] [address] Assigned PCP 09/26/22 10/06/23 Airam Hodges PA-C 500 [place] [address] Physician Quality Improvement Coordinator (Rn) Surgery 07/19/23 Zain Quintana MD [address] [place] [address] 464325 Assigned Surgical Provider 10/07/23 Latricia Pettit PA-C [address] [place] [address] Assigned Gastroenterology Provider 10/15/23 documented as of this encounter
--- OUTSIDE RECORDS SUMMARY | 2023-12-27 14:25 | XMS_ITS | Encounter Summary ---
Author Name Unknown Organization [place] Address [address] [facility] [place] [address] Care Team Providers Care Boot And Shoe Repairman Name Role Phone Monty Musa MD Primary Care Provider [phone] Alfonso Tang Unavailable Unavailable Dayanara Bee MD Unavailable [phone] Min Lange MD Unavailable Unavailable Marlo Madsen MD Unavailable [phone] Mel Buckley RN Unavailable [phone] Douglas Cadet MD Unavailable [phone] Rosalba Pendleton APRN MANAGER OF SCHOOL Unavaila ble Rosalba Pendleton APRN MANAGER OF SCHOOL Unavaila ble Douglas Cadet MD Unavailable [phone] Marlo Madsen MD Unavailable [phone] Abby Vasquez MD Unavailable Abby Vasquez MD Unavailable Airam Hodges PA-C Unavailable [phone] Zain Quintana MD Unavailable [phone] Latricia Pettit PA-C Unavailable [phone] Encounter Details Date Type Department Care Team (Late st Contact Info) Description 11/17/2022 MyC Medical Advice [facility] Gastroenterology Clinic [address] [place] [address] Abby Vasquez MD [address] [place] [address] 136925 Social History Tobacco Use Types Packs/Day Years Used Date Smoking Tobacco: Never Smokeless Tobacco: Never Alcohol Use Standard Drinks/Week Comments No 0 (1 standard drink = 0.6 oz pur e alcohol) PHQ-2 Answer Date Recorded PHQ-2 Score 3 05/28/2022 Sex and Gender Information Value Date Recorded Sex Assigned at Female 10/31/2021 7:59 AM TAKER OUT Gender Identity Female 10/31/2021 7:59 AM TAKER OUT Sexual Orientation Straight 10/31/2021 7: 59 AM TAKER OUT documented as of this encounter Plan of Treatment Upcoming Encounters Date Type Department Care Team (Late st Contact Info) Description 01/05/2024 12:50 PM CDT Therapy Visit [address] [address] Lainey Simon, PT [address] [place] [address] 01/12/2024 12:50 PM CDT Therapy Visit [address] [address] Lainey Simon, PT [address] [place] [address] 01/13/2024 10:00 AM CDT Virtual Visit [facility] Neurology Clinic [address] 3rd [place] [address] Rosalba Pendleton, MAXIMILIANO MANAGER OF SCHOOL [address] [facility] [id number] [place], [place] 242265 01/20/2024 8:00 PM CDT Therapy Visit [address] [phone] 01/26/2024 12:50 PM CDT Therapy Visit [address] 300 [place] [address] [place] [address] [place], [place] 0[address]37 02/09/2024 12:50 PM CDT Therapy Visit [address] [address] Lainey Simon, PT [address] [place] [address] 183247 03/14/2024 10:30 AM CDT Office Visit [address] [phone] Abhishek Acevedo PA-C [address] [address] 03/21/2024 11:30 AM CDT Office Visit [facility]al Surgery [facility] [address] [address] Zain Quintana MD [address] [place] [address] [phone] 03/21/2024 2:30 PM CDT Virtual Visit [facility] Gastroenterology Clinic [address] [address] Larticia Pettit PA-C [address] [place] [address] [phone] 06/07/2024 11:20 AM CDT Office Visit [facility] Gastroenterology Clinic [address] 4th [place] [phone] Latricia Pettit PA-C [address] [place] [address] 860965 Abby Vasquez MD [address] [place] [address] [phone] documented as of this encounter Visit Diagnoses Not on filedocumented in this encounter Additional Health Concerns Infection Onset Date Last Indicated Resolved Time Rule Out COVID-19 04/03/2023 04/03/2023 04/04/2023 6:30 PM CDT Assessment Noted Time PHQ-9 Depression Total Score: 11 022 11:52 AM CDT documented as of this encounter Care Teams Boot And Shoe Repairman Relationship Specialty Start Date End Date Monty Musa MD [facility] [address] [place] [address] PCP - General Family Medicine 08/13/21 Alfonso Tang [facility] [address] [place] [address] Family Practice 08/13/21 Dayanara Bee MD [address] [address] Pediatrics 12/26/14 Min Lange MD [address] [address] Neurology 03/30/16 Marlo Madsen MD [address] [address] Cardiology 10/27/16 Mel Buckley, RN Nurse Coordinator Physical Medicine and Rehabilitation 12/02/16 Douglas Cadet MD [address] [place] [address] Gastroenterology 08/13/21 Rosalba Pendleton APRN MANAGER OF SCHOOL [address] [place] [address] Nurse Practitioner Neurology 09/05/21 Rosalba Pendleton APRN MANAGER OF SCHOOL [address] [place] [address] Assigned Neuroscience Provider 11/09/21 Douglas Cadet MD [address] [place] [address] Assigned Gastroenterology Provider 03/14/22 09/03/23 Marlo Madsen MD [address] [place] [address] Assigned Heart and Vascular Provider 03/14/22 Abby Vasquez MD [address] [place] [address] Gastroenterology 07/16/22 Abby Vasquez MD [address] [place] [address] Assigned PCP 09/26/22 10/06/23 Airam Hodges PA-C [address] [place] [address] Physician Buckle Sorter Surgery 07/19/23 Zain Quintana MD [address] [place] [address] 700305 Assigned Surgical Provider 10/07/23 Latricia Pettit PA-C [address] [place] [address] Assigned Gastroenterology Provider 10/15/23 documented as of this encounter
--- OUTSIDE RECORDS SUMMARY | 2023-12-27 14:25 | XMS_ITS | Encounter Summary ---
Author Name Unknown Organization [place] Address [address] [place] [address] Care Team Providers Care Stitch Bonding Machine Tender Helper Name Role Phone Monty Musa MD Primary Care Provider [phone] Alfonso Tang Unavailable Unavailable Dayanara Bee MD Unavailable [phone] Min Lange MD Unavailable Unavailable Marlo Madsen MD Unavailable [phone] Mel Buckley RN Unavailable [phone] Douglas Cadet MD Unavailable [phone] Rosalba Pendleton APRN PRACTICE LEAD Unavaila ble Rosalba Pendleton APRN PRACTICE LEAD Unavaila ble Douglas Cadet MD Unavailable [phone] Marlo Madsen MD Unavailable [phone] Abby Vasquez MD Unavailable Abby Vasquez MD Unavailable Airam Hodges PA-C Unavailable [phone] Zain Quintana MD Unavailable [phone] Latricia Pettit PA-C Unavailable [phone] Encounter Details Date Type Department Care Team (Late st Contact Info) Description 08/03/2022 MyC Medical Advice [facility] Gastroenterology [facility] [address] [place] [phone] Stephani Wheatley MA Social History Tobacco Use Types Packs/Day Years Used Date Smoking Tobacco: Never Smokeless Tobacco: Never Alcohol Use Standard Drinks/Week Comments No 0 (1 standard drink = 0.6 oz pur e alcohol) PHQ-2 Answer Date Recorded PHQ-2 Score 3 05/28/2022 Sex and Gender Information Value Date Recorded Sex Assigned at Female 10/31/2021 7:59 AM TUBE HANDLER Gender Identity Female 10/31/2021 7:59 AM TUBE HANDLER Sexual Orientation Straight 10/31/2021 7: 59 AM TUBE HANDLER COVID-19 Exposure Response Date Recorded In the last 10 days, have yo u been in contact with someone who was confirmed or suspected to have Coronavirus/COVID-19? No / Unsure 07/14/2022 9:15 PM CDT documented as of this encounter Plan of Treatment Upcoming Encounters Date Type Department Care Team (Late st Contact Info) Description 01/05/2024 12:50 PM CDT Therapy Visit [address] [address] Lainey Simon, PT [address] [place] [address] 01/12/2024 12:50 PM CDT Therapy Visit [address] [place] [address] Lainey Simon, PT [address] [place] [address] 01/13/2024 10:00 AM CDT Virtual Visit [facility] [address]rd [place] [phone] Rosalba Pendleton, MAXIMILIANO [address] [id number] [place] [address] 01/20/2024 8:00 PM CDT Therapy Visit [address] [phone] 01/26/2024 12:50 PM CDT Therapy Visit [address] 300 [place] [address] [place], [place] [address] [place] [address] 081277 02/09/2024 12:50 PM CDT Therapy Visit [address] [address] [place] [address] [place], [place] 244657 03/14/2024 10:30 AM CDT Office Visit [address] [phone] Abhishek Acevedo PA-C [address] [address] 03/21/2024 11:30 AM CDT Office Visit [facility] [address] [phone] Zain Quintana MD [address] [place] [address] 164025 03/21/2024 2:30 PM CDT Virtual Visit [facility] Gastro[facility]ology [facility] [address] [address] Latricia Pettit PA-C [address] [place] [address] 06/07/2024 11:20 AM CDT Office Visit [facility] [address] 4th [place] [phone] Latricia Pettit PA-C [address] [place] [address] 169225 Abby Vasquez MD [address] [place] [address] documented as of this encounter Visit Diagnoses Not on filedocumented in this encounter Additional Health Concerns Infection Onset Date Last Indicated Resolved Time Rule Out COVID-19 04/03/2023 04/03/2023 04/04/2023 6:30 PM CDT Assessment Noted Time PHQ-9 Depression Total Score: 11 022 11:52 AM CDT documented as of this encounter Care Teams Stitch Bonding Machine Tender Helper Relationship Specialty Start Date End Date Monty Musa MD [facility] [address] [place] [address] PCP - General Family Medicine 08/13/21 Alfonso Tang [facility] [address] [place] [address] Family Practice 08/13/21 Dayanara Bee MD [address] [address] Pediatrics 12/26/14 Min Lange MD [address] [address] Neurology 03/30/16 Marlo Madsen MD [address] [address] Cardiology 10/27/16 Mel Buckley, RN Nurse Coordinator Physical Medicine and Rehabilitation 12/02/16 Douglas Cadet MD [address] [place] [address] Gastroenterology 08/13/21 Rosalba Pendleton APRN PRACTICE LEAD [address] [place] [address] Nurse Practitioner Neurology 09/05/21 Rosalba Pendleton APRN PRACTICE LEAD [address] [place] [address] Assigned Neuroscience Provider 11/09/21 Douglas Cadet MD [address] [place] [address] Assigned Gastroenterology Provider 03/14/22 09/03/23 Marlo Madsen MD [address] [place] [address] 350065 Assigned Heart and Vascular Provider 03/14/22 Abby Vasquez MD [address] [place] [address] Gastroenterology 07/16/22 Abby Vasquez MD [address] [place] [address] Assigned PCP 09/26/22 10/06/23 Airam Hodges PA-C [address] [place] [address] Physician Critical Care Physician Assistant Surgery 07/19/23 Zain Quintana MD 500 [place] [address] Assigned Surgical Provider 10/07/23 Latricia Pettit PA-C [address] [place] [address] Assigned Gastroenterology Provider 10/15/23 documented as of this encounter
--- OUTSIDE RECORDS SUMMARY | 2023-12-27 14:25 | XMS_ITS | Encounter Summary ---
Author Name Unknown Organization [place] Address [address] [facility] [place] [address] Care Team Providers Care Pipe Bowl Paint Trimmer Name Role Phone Monty Musa MD Primary Care Provider Jatinder Tang Unavailable Unavailable Dayanara Bee MD Unavailable [phone] Min Lange MD Unavailable Unavailable Marlo Madsen MD Unavailable [phone] Mel Buckley RN Unavailable [phone] Douglas Cadet MD Unavailable Rosalba Pendleton APRN [employer] G[employer] WELDER Unavaila ble Rosalba Pendleton APRN [employer] G[employer] WELDER Unavaila ble Marlo Madsen MD Unavailable [phone] Abby Vasquez MD Unavailable Abby Vasquez MD Unavailable Airam Hodges PA-C Unavailable [phone] Reason for Referral * Diagnostic Imaging XR (Routine) - Pending Review Specialty Diagnoses / Procedures Referred By Contac t Referred To Contact Radiology. Diagnoses Slow transit constipation Procedures XR Abdomen 1 View Zain Quintana MD [address] [place] [address] Referral ID Status Reason Start Date Expiration Date V isits Requested Visits Authorized [id number] Pending Review 09/21/2023 09/20/2024 1 1 T OPERATOR * Diagnostic Imaging XR (Routine) - Pending Review Specialty Diagnoses / Procedures Referred By Contac t Referred To Contact Radiology. Diagnoses Slow transit constipation Procedures XR Abdomen 1 View Zain Quintana MD [address] [place] [address] Referral ID Status Reason Start Date Expiration Date V isits Requested Visits Authorized [id number] Pending Review 09/21/2023 09/20/2024 1 1 T OPERATOR * Diagnostic Imaging XR (Routine) - Pending Review Specialty Diagnoses / Procedures Referred By Contac t Referred To Contact Radiology. Diagnoses Slow transit constipation Procedures XR Abdomen 1 View Zain Quintana MD [address] [place] [address] Referral ID Status Reason Start Date Expiration Date V isits Requested Visits Authorized [id number] Pending Review 09/21/2023 09/20/2024 1 1 T OPERATOR * Rehab Therapy Integrated Services (Routine) - Authorized Specialty Diagnoses / Procedures [facility] Referred To Contact Diagnoses Slow transit constipation [address] [address] Referral ID Status Reason Start Date Expiration Date V isits Requested Visits Authorized [id number] Authorized 09/13/2023 09/12/2024 365 365 Question Answer Preferred Location: [facility] Scheduling Instructions: If you have not heard from the scheduling office within 2 business days, please call [phone] for [employer], for [employer] and [phone] for [employer]. Course of Action Evaluation and Treatment Adult [...] office within 2 business days, please call [phone] for Joshua Chaves, for [place] and [phone] for [place]. T OPERATOR Reason for Visit * Reason Comments Consult * Consultation (Routine: Next available opening) - Pending Review Specialty Diagnoses / Procedures Referred By Contac t Referred To Contact Colon and Rectal Surgery Diagnoses Constipation, unspecified constipation type Abby Vasquez MD [address] [place] [address] Referral ID Status Reason Start Date Expiration Date V isits Requested Visits Authorized [id number] Pending Review 07/14/2023 07/13/2024 1 1 Encounter Details Date Type Department Care Team (Late st Contact Info) Description 09/21/2023 10:00 AM FLOAT OPERATOR Office Visit [facility] [address] [place] [address] Zain Quintana MD [address] [place] [address] Slow transit constipation (Primary Dx); Constipation, [...] Sex Assigned at Female 10/31/2021 7:59 AM FLOAT OPERATOR Gender Identity Female 10/31/2021 7:59 AM FLOAT OPERATOR Sexual Orientation Straight 10/31/2021 7: 59 AM FLOAT OPERATOR documented as of this encounter Last Filed Vital Signs Vital Sign Reading Time Taken Comments Blood Pressure 108/78 09/21/2023 9:49 AM FLOAT OPERATOR Pulse 85 09/21/2023 9:49 AM FLOAT OPERATOR Temperature - - Respiratory Rate - - Oxygen Saturation 100% 09/21/2023 9:49 AM FLOAT OPERATOR Inhaled Oxygen Concentration - - Weight - - Height - - Body Mass Index - - documented in this encounter Patient Instructions * Patient Instructions* Latricia Prasad RN - 09/21/2023 10:00 AM FLOAT OPERATOR Follow up: Go out front to schedule your sitz marker test You will get the sitz marker downstairs at the pharmacy PT- Physical Therapy will call you to schedule this Follow up after 6 months by calling [phone] T OPERATOR documented in this encounter Progress Notes [...] 30 days 1 mL 11 barium sulfate (Spinal IntegrationS RADIOPAQUE MARKERS) CAPS capsule Take 1 capsule [...] tablet 3 Zavegepant HCl 10 MG/ACT SOLN [place] 10 mg in nostril at onset [...] activities as noted above. Zain Quintana MD Field Project Manager Division of Colon and Rectal Surgery [facility] Referring Provider: Abby Vasquez MD [address] [place] [address] Primary Care Provider: Monty Musa T OPERATOR documented in this encounter Nursing Notes * Jose Ware EMT - 09/21/2023 10:00 AM CST Chief Complaint Patient presents with Consult Vitals: 09/21/23 0949 BP: 108/78 BP Location: Left arm Patient Position: Sitting Cuff Size: Adult Large Pulse: 85 SpO2: 100% There is no height or weight on file to calculate BMI. Jose Ware EMT-P T OPERATOR documented in this encounter Plan of Treatment Upcoming Encounters Date Type Department Care Team (Late st Contact Info) Description 01/05/2024 12:50 PM CDT Therapy Visit [address] [address] Lainey Simon, PT [address] [place] [address] 01/12/2024 12:50 PM CDT Therapy Visit [address] [address] Lainey Simon, PT [address] [place] [address] 01/13/2024 10:00 AM CDT Virtual Visit [facility] [address] 3rd [place] [phone] Rosalba Pendleton APRN [address] [place], [place] [address] 01/20/2024 8:00 PM CDT Therapy Visit [facility] [address] [phone] 01/26/2024 12:50 PM CDT Therapy Visit [facility] [place] [address] [facility] [address] [place] [address] [place] [address] [place] [address] 02/09/2024 12:50 PM CDT Therapy Visit [facility] [place] [address] [facility] [address] [place] [address] [place] [address] [place], [place] [address] 03/14/2024 10:30 AM CDT Office Visit [facility] [place] [address] [place] [address] [phone] Abhishek Acevedo PA-C [address] [facility] 103 [place] [address] 03/21/2024 11:30 AM CDT Office Visit [facility] [address] [phone] Zain Quintana MD [address] [place] [address] 593735 03/21/2024 2:30 PM CDT Virtual Visit [facility] [address] [phone] Latricia Pettit PA-C [address] [place] [address] 534945 06/07/2024 11:20 AM CDT Office Visit [facility] [address] [phone] Latricia Pettit PA-C [address] [place] [address] Abby Vasquez MD 9 [place] [address] Scheduled Referrals Name Type Priority Associated Diagnoses Orde r Schedule Physical Therapy Referral Referral Routine: Next available opening Slow transit constipation Expected: 09/21/2023 (Approximate), Expires: 09/21/2024 documented as of this encounter Results * XR Abdomen 1 View (10/01/2023 8:58 AM FLOAT OPERATOR) Anatomical Region Laterality Modality Abdomen/Pelvis Computed Radiogr aphy Impressions 10/01/2023 9:33 AM FLOAT OPERATOR IMPRESSION: Two Sitz markers remain in the rectum. Remainder no longer present. Small to moderate amount of stool. ??Nonobstructed bowel gas pattern. JATINDER ARREOLA MD Narrative 10/01/2023 9:33 AM FLOAT OPERATOR ABDOMEN ONE VIEW ??10/01/2023 8:58 AM [...] MD IMG DIAGNOSTIC IMAGI NG ORDERABLES * XR Abdomen 1 View (09/29/2023 8:57 AM FLOAT OPERATOR) Anatomical Region Laterality Modality Abdomen/Pelvis Computed Radiogr aphy Impressions 09/29/2023 3:13 PM FLOAT OPERATOR IMPRESSION: Nonobstructive bowel. Moderate stool. Sitz markers have moved to the distal colon since the prior exam. 24 Sitz markers are identified. BETH STONER MD SYSTEM ID: ??[id number] Narrative 09/29/2023 3:13 PM FLOAT OPERATOR ABDOMEN ONE VIEW September 29, 2023 [...] are identified. BETH STONER MD SYSTEM ID: [id number] Zain Quintana MD [facility] [place]AG[place]IC [place]AG[place] ORDERABLES * XR Abdomen 1 View (09/27/2023 9:02 AM FLOAT OPERATOR) Anatomical Region Laterality Modality Abdomen/Pelvis Computed Radiogr aphy Impressions 09/27/2023 10:27 AM FLOAT OPERATOR IMPRESSION: Sitz markers are seen along the ascending and transverse colon. Nonobstructive bowel gas pattern. Moderate to large stool burden is seen throughout the colon. No acute bony abnormality. DERREK VILLAGOMEZ MD SYSTEM ID: ??[id number] Narrative 09/27/2023 10:27 AM FLOAT OPERATOR ABDOMEN TWO VIEWS 09/27/2023 9:02 AM [...] bony abnormality. DERREK VILLAGOMEZ MD SYSTEM ID: [id number] Zain FUNES DIAGNOSTIC IMAGI NG ORDERABLES documented in this encounter Visit Diagnoses Diagnosis Slow transit constipation- Primary Constipation, unspecified constipation type Slow transit constipation Slow transit constipation Slow transit constipation documented in this encounter Additional Health Concerns Assessment Noted Time PHQ-9 Depression Total Score: 12 023 8:53 AM CDT documented as of this encounter Care Teams Pipe Bowl Paint Trimmer Relationship Specialty Start Date End Date Monty Musa MD [facility] [address] [place] [address] PCP - General Family Medicine 08/13/21 Jatinder Tang [facility] [address] [place] [address] Family Practice 08/13/21 Dayanara Bee MD [address] 495965 Pediatrics 12/26/14 Min Lange MD [address] [address] Neurology 03/30/16 Marlo Madsen MD [address] [place] [address] Cardiology 10/27/16 Mel Buckley, RN Nurse Coordinator Physical Medicine and Rehabilitation 12/02/16 Douglas Cadet MD [address] [place] [address] Gastroenterology 08/13/21 Rosalba Pendleton APRN [employer] WELDER [address] [phone] Nurse Practitioner Neurology 09/05/21 Rosalba Pendleton APRN [employer] G[employer] WELDER [address] 701645 Assigned Neuroscience Provider 11/09/21 Marlo Madsen MD [address] [place] [address] 75 [place], [place] 490155 Assigned Heart and Vascular Provider 03/14/22 Abby Vasquez MD [address] [place] [address] 474915 Gastroenterology 07/16/22 Abby Vasquez MD [address] [place] [address] 953015 Assigned PCP 09/26/22 10/06/23 Airam Hodges PA-C [address] [place] [address] 737185 Physician It Program Engagement Director Surgery 07/19/23 documented as of this encounter
--- OUTSIDE RECORDS SUMMARY | 2023-12-27 14:25 | XMS_ITS | Encounter Summary ---
Author Name Unknown Organization [place] Address [address] [facility] [place] [address] Care Team Providers Care Mill Work Name Role Phone Monty Musa MD Primary Care Provider [phone] Alfonso Tang Unavailable Unavailable Dayanara Bee MD Unavailable [phone] Min Lange MD Unavailable Unavailable Marlo Madsen MD Unavailable [phone] Mel Buckley RN Unavailable [phone] Douglas Cadet MD Unavailable [phone] Rosalba Pendleton APRN MANAGEMENT DEVELOPMENT SPECIALIST Unavaila ble Rosalba Pendleton APRN MANAGEMENT DEVELOPMENT SPECIALIST Unavaila ble Douglas Cadet MD Unavailable [phone] Marlo Madsen MD Unavailable [phone] Abby Vasquez MD Unavailable Abby Vasquez MD Unavailable Airam Hodges PA-C Unavailable [phone] Zain Quintana MD Unavailable [phone] Latricia Pettit PA-C Unavailable [phone] Encounter Details Date Type Department Care Team (Late st Contact Info) Description 05/05/2023 MyC Medical Advice [facility] [address] [place] [address] Latricia Pettit PA-C [address] [place] [address] Social History Tobacco Use Types Packs/Day Years Used Date Smoking Tobacco: Never Smokeless Tobacco: Never Alcohol Use Standard Drinks/Week Comments No 0 (1 standard drink = 0.6 oz pur e alcohol) PHQ-2 Answer Date Recorded PHQ-2 Score 2 04/02/2023 Sex and Gender Information Value Date Recorded Sex Assigned at Female 10/31/2021 7:59 AM [employer]P [employer]EARCH [employer] OPERATIONS Gender Identity Female 10/31/2021 7:59 AM SVP [employer]EARCH [employer] OPERATIONS Sexual Orientation Straight 10/31/2021 7: 59 AM SVP RESEARCH [employer] EBUSINESS OPERATIONS COVID-19 Exposure Response Date Recorded In the last 10 days, have yo u been in contact with someone who was confirmed or suspected to have Coronavirus/COVID-19? Unable to assess 04/27/2023 10:12 AM CDT documented as of this encounter Plan of Treatment Upcoming Encounters Date Type Department Care Team (Late st Contact Info) Description 01/05/2024 12:50 PM CDT Therapy Visit [address] [address] Lainey Simon, PT [address] [place] [address] 01/12/2024 12:50 PM CDT Therapy Visit [address] [address] Lainey Simon, PT [address] [place] [address] 01/13/2024 10:00 AM CDT Virtual Visit [facility] [address] [place] [phone] Rosalba Pendleton, MAXIMILIANO MANAGEMENT DEVELOPMENT SPECIALIST [address] [place] [address] [id number] [place], [place] 125365 01/20/2024 8:00 PM CDT Therapy Visit [facility] [address] [phone] 01/26/2024 12:50 PM CDT Therapy Visit [facility] [address] [facility] [address] [place] [address] [place] [address] [place], [place] 104967 02/09/2024 12:50 PM CDT Therapy Visit [facility] [address] [facility] [address] [place] [address] [place] [address] [place] [address] 03/14/2024 10:30 AM CDT Office Visit [address] [place] [phone] Abhishek Acevedo PA-C [address] [address] 03/21/2024 11:30 AM CDT Office Visit [facility] [address] [phone] Zain Quintana MD [address] [place] [address] 03/21/2024 2:30 PM CDT Virtual Visit [facility] [place] [address] [place] [phone] Latricia Pettit PA-C [address] [place] [address] 666005 06/07/2024 11:20 AM CDT Office Visit [facility] [address] [phone] Latricia Pettit PA-C [address] [place] [address] 881025 Abby Vasquez MD [address] [place] [address] 664155 documented as of this encounter Visit Diagnoses Not on filedocumented in this encounter Additional Health Concerns Assessment Noted Time PHQ-9 Depression Total Score: 11 022 11:52 AM CDT documented as of this encounter Care Teams Mill Work Relationship Specialty Start Date End Date Monty Musa MD [facility] [address] [place] [address] PCP - General Family Medicine 08/13/21 Alfonso Tang [facility] [address] [place] [address] Family Practice 08/13/21 Dayanara Bee MD [address] [place] [address] Pediatrics 12/26/14 Min Lange MD [address] [address] Neurology 03/30/16 Marlo Madsen MD [address] 355[address] Cardiology 10/27/16 Mel Buckley, RN Nurse Coordinator Physical Medicine and Rehabilitation 12/02/16 Douglas Cadet MD [address] [place] [address] Gastroenterology 08/13/21 Rosalba Pendleton APRN MANAGEMENT DEVELOPMENT SPECIALIST [address] [place] [address] Nurse Practitioner Neurology 09/05/21 Rosalba Pendleton APRN MANAGEMENT DEVELOPMENT SPECIALIST [address] [place] [address] Assigned Neuroscience Provider 11/09/21 Douglas Cadet MD [address] [place] [address] Assigned Gastroenterology Provider 03/14/22 09/03/23 Marlo Madsen MD [address] [place] [address] Assigned Heart and Vascular Provider 03/14/22 Abby Vasquez MD [address] [place] [address] Gastroenterology 07/16/22 Abby Vasuqez MD [address] [place] [address] Assigned PCP 09/26/22 10/06/23 Airam Hodges PA-C [address] [place] [address] Physician Plugger Man Surgery 07/19/23 Zain Quintana MD [address] [place] [address] Assigned Surgical Provider 10/07/23 Latricia Pettit PA-C [address] [place] [address] Assigned Gastroenterology Provider 10/15/23 documented as of this encounter
--- OUTSIDE RECORDS SUMMARY | 2023-12-27 14:25 | XMS_ITS | Encounter Summary ---
Author Name Unknown Organization [place] Address [address] [facility] [place] [address] Care Team Providers Care Meat And Seafood Clerk Name Role Phone Monty Musa MD Primary Care Provider [phone] Alfonso Tang Unavailable Unavailable Dayanara Bee MD Unavailable [phone] Min Lange MD Unavailable Unavailable Marlo Madsen MD Unavailable [phone] Mel Buckley RN Unavailable [phone] Douglas Cadet MD Unavailable [phone] Rosalba Pendleton APRN [employer] Unavaila ble Rosalba Pendleton APRN [employer] Unavaila ble Douglas Cadet MD Unavailable [phone] Marlo Madsen MD Unavailable [phone] Abby Vasquez MD Unavailable Abby Vasquez MD Unavailable Airam Hodges PA-C Unavailable [phone] Zain Quintana MD Unavailable [phone] Latricia Pettit PA-C Unavailable [phone] Encounter Details Date Type Department Care Team (Late st Contact Info) Description 06/01/2022 MyC Medical Advice [facility] Heart Clinic [address] [address] Andie Raya Social History Tobacco Use Types Packs/Day Years Used Date Smoking Tobacco: Never Smokeless Tobacco: Never Alcohol Use Standard Drinks/Week Comments No 0 (1 standard drink = 0.6 oz pur e alcohol) PHQ-2 Answer Date Recorded PHQ-2 Score 3 05/28/2022 Sex and Gender Information Value Date Recorded Sex Assigned at Female 10/31/2021 7:59 AM PROFESSOR OF MEDICINE Gender Identity Female 10/31/2021 7:59 AM PROFESSOR OF MEDICINE Sexual Orientation Straight 10/31/2021 7: 59 AM PROFESSOR OF MEDICINE COVID-19 Exposure Response Date Recorded In the last 10 days, have yo u been in contact with someone who was confirmed or suspected to have Coronavirus/COVID-19? No / Unsure 05/04/2022 7:58 AM CDT documented as of this encounter Plan of Treatment Upcoming Encounters Date Type Department Care Team (Late st Contact Info) Description 01/05/2024 12:50 PM CDT Therapy Visit [address] [address] Lainey Simon, PT [address] [place] [address] 01/12/2024 12:50 PM CDT Therapy Visit [address] [address] Lainey Simon, PT [address] [place] [address] 01/13/2024 10:00 AM CDT Virtual Visit [facility] Neurology Clinic [address] 3rd [place] [address] Rosalba Pendleton, STRENGTH AND CONDITIONING COACH [address] [id number] [place] [address] 01/20/2024 8:00 PM CDT Therapy Visit [address] [phone] 01/26/2024 12:50 PM CDT Therapy Visit [address] [place] [address] Lainey Simon, PT [address] [place] [address] 02/09/2024 12:50 PM CDT Therapy Visit [address] [address] Lainey Simon, PT [address] [place] [address] 996467 03/14/2024 10:30 AM CDT Office Visit [address] [phone] Abhishek Acevedo PAJyoti [address] [address] 03/21/2024 11:30 AM CDT Office Visit [facility] [address] [phone] Zain Quintana MD [address] [place] [id number] 03/21/2024 2:30 PM CDT Virtual Visit [facility] Gastroenterology Clinic [address] [phone] Latricia Pettit PALaurleC [address] [place] [address] 06/07/2024 11:20 AM CDT Office Visit [facility] Gastroenterology Clinic [address] 4th [place] [phone] Latricia Pettit PA-C [address] [place] [address] 940715 Abby Vasquez MD [address] [place] [address] documented as of this encounter Visit Diagnoses Not on filedocumented in this encounter Additional Health Concerns Infection Onset Date Last Indicated Resolved Time Rule Out COVID-19 04/03/2023 04/03/2023 04/04/2023 6:30 PM CDT Assessment Noted Time PHQ-9 Depression Total Score: 11 022 11:52 AM CDT documented as of this encounter Care Teams Meat And Seafood Clerk Relationship Specialty Start Date End Date Monty Musa MD [facility] [address] [place] [address] PCP - General Family Medicine 08/13/21 Alfonso Tang [facility] [address] [place] [address] Family Practice 08/13/21 Dayanara Bee MD [address] [place] [address] Pediatrics 12/26/14 Min Lange MD [address] [address] Neurology 03/30/16 Marlo Madsen MD [address] [address] Cardiology 10/27/16 Mel Buckley, RN Nurse Coordinator Physical Medicine and Rehabilitation 12/02/16 Douglas Cadet MD [address] [place] [address] Gastroenterology 08/13/21 Rosalba Pendleton APRN [employer] [address] [place] [address] Nurse Practitioner Neurology 09/05/21 Rosalba Pendleton APRN [employer] [address] [place] [address] Assigned Neuroscience Provider 11/09/21 Douglas Cadet MD [address] [place] [address] Assigned Gastroenterology Provider 03/14/22 09/03/23 Marlo Madsen MD [address] [place] [address] Assigned Heart and Vascular Provider 03/14/22 Abby Vasquez MD [address] [place] [address] Gastroenterology 07/16/22 Abby Vasquez MD [address] [place] [address] Assigned PCP 09/26/22 10/06/23 Airam Hodges PA-C [address] [place] [address] Physician Tax Auditor Surgery 07/19/23 Zain Quintana MD [address] [place], [place] 133005 Assigned Surgical Provider 10/07/23 Latricia Pettit PA-C [address] [place] [address] [phone] Assigned Gastroenterology Provider 10/15/23 documented as of this encounter
--- OUTSIDE RECORDS SUMMARY | 2023-12-27 14:25 | XMS_ITS | Encounter Summary ---
Author Name Unknown Organization [place] Address [address] [facility] [place] [address] Care Team Providers Care Real Estate Associate Attorney Name Role Phone Monty Musa MD Primary Care Provider [phone] Alfonso Tang Unavailable Unavailable Dayanara Bee MD Unavailable [phone] Min Lange MD Unavailable Unavailable Marlo Madsen MD Unavailable [phone] Mel Buckley RN Unavailable [phone] Douglas Cadet MD Unavailable [phone] Rosalba Pendleton APRN FUNERAL ASSISTANT Unavaila ble Rosalba Pendleton APRN FUNERAL ASSISTANT Unavaila ble Douglas Cadet MD Unavailable [phone] Marlo Madsen MD Unavailable [phone] Abby Vasquez MD Unavailable Abby Vasquez MD Unavailable Airam Hodges PA-C Unavailable [phone] Zain Quintana MD Unavailable [phone] Latricia Pettit PA-C Unavailable [phone] Encounter Details Date Type Department Care Team (Late st Contact Info) Description 11/23/2022 MyC Medical Advice [facility] [address] [place] [phone] Vivian Carter Social History Tobacco Use Types Packs/Day Years Used Date Smoking Tobacco: Never Smokeless Tobacco: Never Alcohol Use Standard Drinks/Week Comments No 0 (1 standard drink = 0.6 oz pur e alcohol) PHQ-2 Answer Date Recorded PHQ-2 Score 3 05/28/2022 Sex and Gender Information Value Date Recorded Sex Assigned at Female 10/31/2021 7:59 AM SLUDGE FILTRATION ATTENDANT Gender Identity Female 10/31/2021 7:59 AM SLUDGE FILTRATION ATTENDANT Sexual Orientation Straight 10/31/2021 7: 59 AM SLUDGE FILTRATION ATTENDANT documented as of this encounter Plan of Treatment Upcoming Encounters Date Type Department Care Team (Late st Contact Info) Description 01/05/2024 12:50 PM CDT Therapy Visit [address] [address] Lainey Simon, PT [address] [place] [address] 01/12/2024 12:50 PM CDT Therapy Visit [address] [address] Lainey Simon, PT [address] [place] [address] 38201 01/13/2024 10:00 AM CDT Virtual Visit [facility] [address] 3rd [place] [phone] Rosalba Pendleton APRN [address] [id number] [place] [address] 01/20/2024 8:00 PM CDT Therapy Visit [facility] [address] [phone] 01/26/2024 12:50 PM CDT Therapy Visit [facility] [address] [facility] [address] [place] [address] [place] [address] [place], [place] 089047 02/09/2024 12:50 PM CDT Therapy Visit [place] [id number] [facility] [address] [place] [address] Alfred Lainey, PT [address] [place] [address] 163797 03/14/2024 10:30 AM CDT Office Visit [address] [phone] Abhishek Acevedo PA-C [address] [address] 03/21/2024 11:30 AM CDT Office Visit [facility] [address] [phone] Zain Quintana MD [address] [place] [address] 058295 03/21/2024 2:30 PM CDT Virtual Visit [facility] [address] [phone] Latricia Pettit PA-C [address] [place] [address] 392295 06/07/2024 11:20 AM CDT Office Visit [facility] [address] [phone] Latricia Pettit PA-C [address] [place] [address] 318195 Abby Vasquez MD [address] [place] [address] [phone] documented as of this encounter Visit Diagnoses Not on filedocumented in this encounter Additional Health Concerns Infection Onset Date Last Indicated Resolved Time Rule Out COVID-19 04/03/2023 04/03/2023 04/04/2023 6:30 PM CDT Assessment Noted Time PHQ-9 Depression Total Score: 11 022 11:52 AM CDT documented as of this encounter Care Teams Real Estate Associate Attorney Relationship Specialty Start Date End Date Monty Musa MD [facility] [address] [place] [address] PCP - General Family Medicine 08/13/21 Alfonso Tang [facility] [address] [place] [address] 23140 Family Practice 08/13/21 Dayanara Bee MD [address] [place] [address] 344485 Pediatrics 12/26/14 Min Lange MD [address] [place] [address] 33693 Neurology 03/30/16 Marlo Madsen MD [address] [place] [address] [phone] Cardiology 10/27/16 Mel Buckley, RN Nurse Coordinator Physical Medicine and Rehabilitation 12/02/16 Douglas Cadet MD [address] [place] [address] 47819 Gastroenterology 08/13/21 Rosalba Pendleton APRN FUNERAL ASSISTANT [address] [place] [address] 13368 Nurse Practitioner Neurology 09/05/21 Rosalba Pendleton APRN FUNERAL ASSISTANT [address] [place] [address] 13712 Assigned Neuroscience Provider 11/09/21 Douglas Cadet MD [address] [place] [address] 64386 Assigned Gastroenterology Provider 03/14/22 09/03/23 Marlo Madsen MD [address] [place] [address] 75 [place] [address] Assigned Heart and Vascular Provider 03/14/22 Abby Vasquez MD [address] [place] [address] 8[address]31 Gastroenterology 07/16/22 Abby Vasquez MD [address] [place] [address] 08992 Assigned PCP 09/26/22 10/06/23 Airam Hodges PA-C [address] [place] [address] 36955 Physician X Ray Inspector Surgery 07/19/23 Zain Quintana MD [address] [place] [address] 77809 Assigned Surgical Provider 10/07/23 Latricia Pettit PA-C 909 [place] [address] Assigned Gastroenterology Provider 10/15/23 documented as of this encounter
--- OUTSIDE RECORDS SUMMARY | 2023-12-27 14:25 | XMS_ITS | Encounter Summary ---
Author Name Unknown Organization [place] Address [address] [facility] [place] [address] Care Team Providers Care Dry Kiln Worker Name Role Phone Monty Musa MD Primary Care Provider [phone] Alfonso Tang Unavailable Unavailable Dayanara Bee MD Unavailable [phone] Min Lange MD Unavailable Unavailable Marlo Madsen MD Unavailable [phone] Mel Buckley RN Unavailable [phone] Douglas Cadet MD Unavailable [phone] Rosalba Pendleton APRN MATERIALS MGMT TECH Unavaila ble Rosalba Pendleton APRN MATERIALS MGMT TECH Unavaila ble Douglas Cadet MD Unavailable [phone] Marlo Madsen MD Unavailable [phone] Abby Vasquez MD Unavailable Abby Vasquez MD Unavailable Airam Hodges PA-C Unavailable [phone] Zain Quintana MD Unavailable [phone] Latricia Pettit PA-C Unavailable [phone] Encounter Details Date Type Department Care Team (Late st Contact Info) Description 07/16/2023 MyC Medical Advice [facility] [address] [place] [address] Sheri Edmonds, RN Social History Tobacco Use [...] Sex Assigned at Female 10/31/2021 7:59 AM U.S. SENATOR Gender Identity Female 10/31/2021 7:59 AM U.S. SENATOR Sexual Orientation Straight 10/31/2021 7: 59 AM U.S. SENATOR documented as of this encounter Plan of Treatment Upcoming Encounters Date Type Department Care Team (Late st Contact Info) Description 01/05/2024 12:50 PM CDT Therapy Visit [address] [address] Lainey Simon, PT [address] [place] [address] 01/12/2024 12:50 PM CDT Therapy Visit [address] 300 [place] [address] Lainey Simon, PT [address] [place] [address] 8[address] 01/13/2024 10:00 AM CDT Virtual Visit [facility] Neurology Clinic [address] [place] [phone] Rosalba Pendleton APRN [facility]9 [facility] [id number] [place] [address] 01/20/2024 8:00 PM CDT Therapy Visit [address] [phone] 01/26/2024 12:50 PM CDT Therapy Visit [facility] Care [place] [phone] [facility] 300 [place] [address] [place] [address] [place], [place] 678947 02/09/2024 12:50 PM CDT Therapy Visit [address] 300 [place] [address] [place] [address] [place] [address] 03/14/2024 10:30 AM CDT Office Visit [address] [phone] Abhishek Acevedo PA-C [address] [address] 03/21/2024 11:30 AM CDT Office Visit [facility] [address] [phone] Zain Quintana MD [address] [place] [address] 837725 03/21/2024 2:30 PM CDT Virtual Visit [facility] Gastroenterology Clinic [address] [phone] Latricia Pettit PA-C [address] [place] [address] 763105 06/07/2024 11:20 AM CDT Office Visit [facility]enterology Clinic [address] 4th [place] [phone] Latricia Pettit PA-C [address] [place] [address] 910055 Abby Vasquez MD [address] [place] [address] 062755 documented as of this encounter Visit Diagnoses Not on filedocumented in this encounter Additional Health Concerns Assessment Noted Time PHQ-9 Depression Total Score: 12 023 8:53 AM CDT documented as of this encounter Care Teams Dry Kiln Worker Relationship Specialty Start Date End Date Monty Musa MD [facility] [address] [place] [address] PCP - General Family Medicine 08/13/21 Alfonso Tang [facility] [address] [place] [address] Family Practice 08/13/21 Dayanara Bee MD [address] [place] [address] 9[address]86 Pediatrics 12/26/14 Min Lange MD [address] [place] [address] 31648 Neurology 03/30/16 Marlo Madsen MD [address] [place] [address] 86585 Cardiology 10/27/16 Mel Buckley, RN Nurse Coordinator Physical Medicine and Rehabilitation 12/02/16 Douglas Cadet MD [address] [place] [address] 19978 Gastroenterology 08/13/21 Rosalba Pendleton APRN MATERIALS MGMT TECH [address] [place] [address]237 Nurse Practitioner Neurology 09/05/21 Rosalba Pendleton APRN MATERIALS MGMT TECH [address] [place] [address] 67092 Assigned Neuroscience Provider 11/09/21 Dougals Cadet MD [address] [place] [address] 42527 Assigned Gastroenterology Provider 03/14/22 09/03/23 Marlo Madsen MD [address] [place] [address] 64998 Assigned Heart and Vascular Provider 03/14/22 Abby Vasquez MD [address] [place] [address] 49043 Gastroenterology 07/16/22 Abby Vasquez MD [address] [place] [address] 66455 Assigned PCP 09/26/22 10/06/23 Airam Hodges PA-C [address] [place] [address] 43646 Physician Instrument Operator Surgery 07/19/23 Zain Quintana MD [address] [place] [address] 57618 Assigned Surgical Provider 10/07/23 Latricia Pettit PA-C [address] [place] [address] 06700 Assigned Gastroenterology Provider 10/15/23 documented as of this encounter
--- OUTSIDE RECORDS SUMMARY | 2023-12-27 14:25 | XMS_ITS | Encounter Summary ---
Author Name Unknown Organization [place] Address [address] [facility] [place] [address] Care Team Providers Care Radiological Technician Name Role Phone Monty Musa MD Primary Care Provider Alfonso Tang Unavailable Unavailable Dayanara Bee MD Unavailable [phone] Min Lange MD Unavailable Unavailable Marlo Madsen MD Unavailable [phone] Mel Buckley RN Unavailable [phone] Douglas Cadet MD Unavailable [phone] Rosalba Pendleton APRN CELLOPHANE WORKER Unavaila ble Rosalba Pendleton APRN CELLOPHANE WORKER Unavaila ble Marlo Madsen MD Unavailable [phone] Abby Vasquez MD Unavailable Abby Vasquez MD Unavailable Airam Hodges PA-C Unavailable [phone] Encounter Details Date Type Department Care [...] Sex Assigned at Female 10/31/2021 7:59 AM RADIOLOGY TRANSPORTER Gender Identity Female 10/31/2021 7:59 AM RADIOLOGY TRANSPORTER Sexual Orientation Straight 10/31/2021 7: 59 AM RADIOLOGY TRANSPORTER documented as of this encounter Plan of Treatment Upcoming Encounters Date Type Department Care Team (Late st Contact Info) Description 01/05/2024 12:50 PM CDT Therapy Visit [address] [address] Lainey Simon, PT [address] [place] [address] 01/12/2024 12:50 PM CDT Therapy Visit [address] [address] Lainey Simon, PT [address] [place] [address] 01/13/2024 10:00 AM CDT Virtual Visit [facility] [address] 3rd [place] [phone] Rosalba Pendleton, COOKING SHOW HOST [facility] 909 [id number] [place] [address] 01/20/2024 8:00 PM CDT Therapy Visit [facility] [address] [phone] 01/26/2024 12:50 PM CDT Therapy Visit [address] [address] Lainey Simon, PT [address] [place] [address] 364[address] 02/09/2024 12:50 PM CDT Therapy Visit [facility] [address] [facility] [address] [place] [address] [place] [address] [place], [place] 291177 03/14/2024 10:30 AM CDT Office Visit [facility] [place] 6[address] [facility] 103 [place] [phone] Abhishek Acevedo PA-C 6363 [facility] 103 [place], [place] [phone] 03/21/2024 11:30 AM CDT Office Visit [facility] [address] [phone] Zain Quintana MD [address] [place] [address] [id number] 03/21/2024 2:30 PM CDT Virtual Visit [facility] [address] [phone] Latricia Pettit PA-C [address] [place] [address] 421845 06/07/2024 11:20 AM CDT Office Visit [facility] [address] [phone] Latricia Pettit PA-C [address] [place] [address] 220875 Abby Vasquez MD [address] [place] [address] documented as of this encounter Visit Diagnoses Not on filedocumented in this encounter Additional Health Concerns Assessment Noted Time PHQ-9 Depression Total Score: 12 023 8:53 AM CDT documented as of this encounter Care Teams Radiological Technician Relationship Specialty Start Date End Date Monty Musa MD [facility] [address] [place] [address] PCP - General Family Medicine 08/13/21 Alfonso Tang [facility] [address] [place] [address] [facility] 08/13/21 Dayanara Bee MD [address] [place] [address]55 Pediatrics 12/26/14 Min Lange MD [address] [place] [address] 51071 Neurology 03/30/16 Marlo Madsen MD [address] [place] [address] 38107 Cardiology 10/27/16 Mel Buckley, RN Nurse Coordinator Physical Medicine and Rehabilitation 12/02/16 Douglas Cadet MD [address] [place] [address] 93152 Gastroenterology 08/13/21 Rosalba Pendleton APRN CELLOPHANE WORKER [address] [place], [place] [address]J [place] [address] Nurse Practitioner Neurology 09/05/21 Rosalba Pendleton APRN CELLOPHANE WORKER [address] [place] [address] [id number] [place], [place] 896695 Assigned Neuroscience Provider 11/09/21 Marlo Madsen MD [address] [place] [address] [facility] 75 [place] [address] Assigned Heart and Vascular Provider 03/14/22 Abby Vasquez MD [address] [place] [address] 7[address]79 Gastroenterology 07/16/22 Abby Vasquez MD [address] [place] [address] 13148 Assigned PCP 09/26/22 10/06/23 Airam Hodges PA-C [address] [place] [address]365 Physician Automatic Folder Seamer Surgery 07/19/23 documented as of this encounter
--- OUTSIDE RECORDS SUMMARY | 2023-12-27 14:25 | XMS_ITS | Encounter Summary ---
Author Name Unknown Organization [place] Address [address] [place] [address] Care Team Providers Care Glass Mold Repairer Name Role Phone Monty Musa MD Primary Care Provider [phone] Alfonso Tang Unavailable Unavailable Dayanara Bee MD Unavailable [phone] Min Lange MD Unavailable Unavailable Marlo Madsen MD Unavailable [phone] Mel Buckley RN Unavailable [phone] Douglas Cadet MD Unavailable [phone] Rosalba Pendleton APRN PBX MECHANIC Unavaila ble Rosalba Pendleton APRN PBX MECHANIC Unavaila ble Douglas Cadet MD Unavailable [phone] Marlo Madsen MD Unavailable [phone] Abby Vasquez MD Unavailable Abby Vasquez MD Unavailable Airam Hodges PA-C Unavailable [phone] Zain Quintana MD Unavailable [phone] Latricia Pettit PA-C Unavailable [phone] Encounter Details Date Type Department Care Team (Late Contact Info) Description 11/03/2022 MyC Medical Advice [facility] Neurology Clinic [address] [phone] Cierra Perez, RN Social History Tobacco Use Types Packs/Day Years Used Date Smoking Tobacco: Never Smokeless Tobacco: Never Alcohol Use Standard Drinks/Week Comments No 0 (1 standard drink = 0.6 oz pur e alcohol) PHQ-2 Answer Date Recorded PHQ-2 Score 3 05/28/2022 Sex and Gender Information Value Date Recorded Sex Assigned at Female 10/31/2021 7:59 AM CARBONIZER TESTER Gender Identity Female 10/31/2021 7:59 AM CARBONIZER TESTER Sexual Orientation Straight 10/31/2021 7: 59 AM CARBONIZER TESTER documented as of this encounter Plan of Treatment Upcoming Encounters Date Type Department Care Team (Late st Contact Info) Description 01/05/2024 12:50 PM CDT Therapy Visit [address] [address] Lainey Simon, PT [address] [place] [address] 01/12/2024 12:50 PM CDT Therapy Visit [address] [address] Lainey Simon, PT [address] [place] [address] 01/13/2024 10:00 AM CDT Virtual Visit [facility] [address] [phone] Rosalba Pendleton, MAXIMILIANO [address] [id number] [place] [address] 01/20/2024 8:00 PM CDT Therapy Visit [facility] Sleep [address] [phone] 01/26/2024 12:50 PM CDT Therapy Visit [facility] [address] [facility] [address] [place] [address] [place] [address] [place], [place] 392967 02/09/2024 12:50 PM CDT Therapy Visit [facility] [address] [facility] [address] [place] [address] [place] [address] [place], [place] 451687 03/14/2024 10:30 AM CDT Office Visit [address] [phone] Abhishek Acevedo PA-C [address] [address] 03/21/2024 11:30 AM CDT Office Visit [facility] [address] [phone] Zain Quintana MD [address] [place] [address] 128395 03/21/2024 2:30 PM CDT Virtual Visit [facility] Gastroenterology Clinic [address] [phone] Latricia Pettit PA-C [address] [place] [address] 218275 06/07/2024 11:20 AM CDT Office Visit [facility]astroenterology Clinic [address] [place] [phone] Latricia Pettit PA-C [address] [place] [address] 868715 Abby Vasquez MD [address] [place] [address] 635705 documented as of this encounter Visit Diagnoses Not on filedocumented in this encounter Additional Health Concerns Infection Onset Date Last Indicated Resolved Time Rule Out COVID-19 04/03/2023 04/03/2023 04/04/2023 6:30 PM CDT Assessment Noted Time PHQ-9 Depression Total Score: 11 022 11:52 AM CDT documented as of this encounter Care Teams Glass Mold Repairer Relationship Specialty Start Date End Date Monty Musa MD [facility] [address] [place] [address] PCP - General Family Medicine 08/13/21 Alfonso Tang [facility] [address] [place] [address] Family Practice 08/13/21 Dayanara Bee MD [address] [place] [address] 955955 Pediatrics 12/26/14 Min Lange MD [address] [place] [address] 46890 Neurology 03/30/16 Marlo Madsen MD [address] [place] [address] 028295 Cardiology 10/27/16 Mel Buckley, RN Nurse Coordinator Physical Medicine and Rehabilitation 12/02/16 Douglas Cadet MD [address] [place] [address]23 Gastroenterology 08/13/21 Rosalba Pendleton APRN PBX MECHANIC [address] [place] [address] 92425 Nurse Practitioner Neurology 09/05/21 Rosalba Pendleton APRN PBX MECHANIC [address] [place] [address] 91487 Assigned Neuroscience Provider 11/09/21 Douglas Cadet MD [address] [place] [address] 08724 Assigned Gastroenterology Provider 03/14/22 09/03/23 Marlo Madsen MD [address] [place] [address] 71441 Assigned Heart and Vascular Provider 03/14/22 Abby Vasquez MD [address] [place] [address] 99399 Gastroenterology 07/16/22 Abby Vasquez MD [address] [place] [address] 54634 Assigned PCP 09/26/22 10/06/23 Airam Hodges PA-C [address] [place] [address] 35439 Physician Customs Investigator Surgery 07/19/23 Zain Quintana MD [address] [place] [address] 79053 Assigned Surgical Provider 10/07/23 Latricia Pettit PA-C 909 [place] [address] Assigned Gastroenterology Provider 10/15/23 documented as of this encounter
--- OUTSIDE RECORDS SUMMARY | 2023-12-27 14:25 | XMS_ITS | Encounter Summary ---
Author Name Unknown Organization [place] Address [address] [place] [address] Care Team Providers Care Guest Experience Captain Name Role Phone Monty Musa MD Primary Care Provider [phone] Alfonso Tang Unavailable Unavailable Dayanara Bee MD Unavailable [phone] Min Lange MD Unavailable Unavailable Marlo Madsen MD Unavailable [phone] Mel Buckley RN Unavailable [phone] Douglas Cadet MD Unavailable [phone] Rosalba Pendleton APRN SPLUNK DEVELOPER Unavaila ble Rosalba Pendleton APRN SPLUNK DEVELOPER Unavaila ble Douglas Cadet MD Unavailable [phone] Marlo Madsen MD Unavailable [phone] Abby Vasquez MD Unavailable Abby Vasquez MD Unavailable Airam Hodges PA-C Unavailable [phone] Zain Quintana MD Unavailable [phone] Latricia Pettit PA-C Unavailable [phone] Encounter Details Date Type Department Care Team (Late Contact Info) Description 01/21/2023 MyC Medical Advice [facility] [address] [address] Marlo Madsen MD [address] [place] [address] 836995 Social History Tobacco Use Types Packs/Day Years Used Date Smoking Tobacco: Never Smokeless Tobacco: Never Alcohol Use Standard Drinks/Week Comments No 0 (1 standard drink = 0.6 oz pur e alcohol) PHQ-2 Answer Date Recorded PHQ-2 Score 2 01/19/2023 Sex and Gender Information Value Date Recorded Sex Assigned at Female 10/31/2021 7:59 AM MOBILE EQUIPMENT OPERATOR Gender Identity Female 10/31/2021 7:59 AM MOBILE EQUIPMENT OPERATOR Sexual Orientation Straight 10/31/2021 7: 59 AM MOBILE EQUIPMENT OPERATOR documented as of this encounter Plan of Treatment Upcoming Encounters Date Type Department Care Team (Late st Contact Info) Description 01/05/2024 12:50 PM CDT Therapy Visit [address] [address] Lainey Simon, PT [address] [place] [address] 01/12/2024 12:50 PM CDT Therapy Visit [address] [address] Lainey Simon, PT [address] [place] [address] 01/13/2024 10:00 AM CDT Virtual Visit [facility] [address] 3rd [place] [phone] Rosalba Pendleton, MAXIMILIANO SPLUNK DEVELOPER [address] [place] [address] [id number] [place] [address] 01/20/2024 8:00 PM CDT Therapy Visit [place] [phone] [address] [phone] 01/26/2024 12:50 PM CDT Therapy Visit [facility] [address] [facility] [address] [place] [address] [place] [address] [place], [place] 904497 02/09/2024 12:50 PM CDT Therapy Visit [facility] [address] [facility] [address] [place], [place] 042977 [place] [address] [place], [place] 959657 03/14/2024 10:30 AM CDT Office Visit [address] [phone] Abhishek Acevedo PA-C [address] [address] 03/21/2024 11:30 AM CDT Office Visit [facility] [address] [address] Zain Quintana MD [address] [place] [address] 534925 03/21/2024 2:30 PM CDT Virtual Visit [facility] [address] [address] Latricia Pettit PA-C [address] [place] [address] 634115 06/07/2024 11:20 AM CDT Office Visit [facility] [address] 4th [place] [address] Latricia Pettit PA-C [address] [place] [address] 707755 Abby Vasquez MD [address] [place] [address] [phone] documented as of this encounter Visit Diagnoses Not on filedocumented in this encounter Additional Health Concerns Infection Onset Date Last Indicated Resolved Time Rule Out COVID-19 04/03/2023 04/03/2023 04/04/2023 6:30 PM CDT Assessment Noted Time PHQ-9 Depression Total Score: 11 022 11:52 AM CDT documented as of this encounter Care Teams Guest Experience Captain Relationship Specialty Start Date End Date Monty Musa MD [facility] [address] [place] [address] PCP - General Family Medicine 08/13/21 Alfonso Tang [facility] [address] [place] [address] Family Practice 08/13/21 Dayanara Bee MD [address] [place] [address] 694055 Pediatrics 12/26/14 Min Lange MD [address] [address] Neurology 03/30/16 Marlo Madsen MD [address] [place] [address] 243395 Cardiology 10/27/16 Mel Buckley, RN Nurse Coordinator Physical Medicine and Rehabilitation 12/02/16 Douglas Cadet MD [address] [place] [address] Gastroenterology 08/13/21 Rosalba Pendleton APRN SPLUNK DEVELOPER [address] [place] [address] Nurse Practitioner Neurology 09/05/21 Rosalba Pendleton APRN SPLUNK DEVELOPER [address] [place] [address] 13625 Assigned Neuroscience Provider 11/09/21 Douglas Cadet MD [address] [place] [address] Assigned Gastroenterology Provider 03/14/22 09/03/23 Marlo Madsen MD [address] [place] [address] Assigned Heart and Vascular Provider 03/14/22 Abby Vasquez MD [address] [place] [address] Gastroenterology 07/16/22 Abby Vasquez MD [address] [place] [address] Assigned PCP 09/26/22 10/06/23 Airam Hodges PA-C [address] [place] [address] Physician Nuclear Powerplant Mechanic Surgery 07/19/23 Zain Quintana MD [address] [place] [address] 564435 Assigned Surgical Provider 10/07/23 Latricia Pettit PA-C [address] [place] [address] 012155 Assigned Gastroenterology Provider 10/15/23 documented as of this encounter
--- OUTSIDE RECORDS SUMMARY | 2023-12-27 14:25 | XMS_ITS | Encounter Summary ---
Author Name Unknown Organization [place] Address [address] [facility] [place] [address] Care Team Providers Care Plastic Surgery Technician Name Role Phone Monty Musa MD Primary Care Provider [phone] Alfonso Tang Unavailable Unavailable Dayanara Bee MD Unavailable [phone] Min Lange MD Unavailable Unavailable Marlo Madsen MD Unavailable [phone] Mel Buckley RN Unavailable [phone] Douglas Cadet MD Unavailable [phone] Rosalba Pendleton APRN TAFE TEACHER Unavaila ble Rosalba Pendleton APRN TAFE TEACHER Unavaila ble Douglas Cadet MD Unavailable [phone] Marlo Madsen MD Unavailable [phone] Abby Vasquez MD Unavailable Abby Vasquez MD Unavailable Airam Hodges PA-C Unavailable [phone] Zain Quintana MD Unavailable [phone] Latricia Pettit PA-C Unavailable [phone] Encounter Details Date Type Department Care Team (Late st Contact Info) Description 04/02/2023 MyC Medical Advice [facility] [address] [place] [address] Vivian Carter Social History Tobacco Use Types Packs/Day Years Used Date Smoking Tobacco: Never Smokeless Tobacco: Never Alcohol Use Standard Drinks/Week Comments No 0 (1 standard drink = 0.6 oz pur e alcohol) PHQ-2 Answer Date Recorded PHQ-2 Score 2 04/02/2023 Sex and Gender Information Value Date Recorded Sex Assigned at Female 10/31/2021 7:59 AM ALARM SERVICE TECHNICIAN Gender Identity Female 10/31/2021 7:59 AM ALARM SERVICE TECHNICIAN Sexual Orientation Straight 10/31/2021 7: 59 AM ALARM SERVICE TECHNICIAN COVID-19 Exposure Response Date Recorded In the last 10 days, have yo u been in contact with someone who was confirmed or suspected to have Coronavirus/COVID-19? No / Unsure 04/03/2023 11:46 AM CDT documented as of this encounter Plan of Treatment Upcoming Encounters Date Type Department Care Team (Late st Contact Info) Description 01/05/2024 12:50 PM CDT Therapy Visit [address] [address] Lainey Simon, PT [address] [place] [address] 01/12/2024 12:50 PM CDT Therapy Visit [address] [place] [address] Lainey Simon, PT [address] [place] [address] 01/13/2024 10:00 AM CDT Virtual Visit [facility] [address] [place] [phone] Rosalba Pendleton, MAXIMILIANO [address] [place] [address] 01/20/2024 8:00 PM CDT Therapy Visit [address] [phone] 01/26/2024 12:50 PM CDT Therapy Visit [address] 300 [place] [address] Lainey Simon, PT [address] [place] [address] 359667 02/09/2024 12:50 PM CDT Therapy Visit [address] [address] Lainey Simon, PT [address] [place] [address] 015097 03/14/2024 10:30 AM CDT Office Visit [address] [phone] Abhishek Acevedo PA-C [address] [address] 03/21/2024 11:30 AM CDT Office Visit [facility] [address] [address] Zain Quintana MD [address] [place] [address] 517145 03/21/2024 2:30 PM CDT Virtual Visit [facility] [address] [address] Latricia Pettit PALaurelC [address] [place] [address] 06/07/2024 11:20 AM CDT Office Visit [facility] [address] [place] [phone] Latricia Pettit PA-C [address] [place] [address] 812925 Abby Vasquez MD [address] [place] [address] documented as of this encounter Visit Diagnoses Not on filedocumented in this encounter Additional Health Concerns Infection Onset Date Last Indicated Resolved Time Rule Out COVID-19 04/03/2023 04/03/2023 04/04/2023 6:30 PM CDT Assessment Noted Time PHQ-9 Depression Total Score: 11 022 11:52 AM CDT documented as of this encounter Care Teams Plastic Surgery Technician Relationship Specialty Start Date End Date Monty Musa MD [facility] [address] [place] [address] PCP - General Family Medicine 08/13/21 Alfonso Tang [facility] [address] [place] [address] Family Practice 08/13/21 Dayanara Bee MD [address] [place] [address] Pediatrics 12/26/14 Min Lange MD [address] [place] [address] Neurology 03/30/16 Marlo Madsen MD [address] [place] [address] Cardiology 10/27/16 Mel Buckley, RN Nurse Coordinator Physical Medicine and Rehabilitation 12/02/16 Douglas Cadet MD 500 [place] [address] Gastroenterology 08/13/21 Rosalba Pendleton APRN TAFE TEACHER [address] [place] [address] Nurse Practitioner Neurology 09/05/21 Rosalba Pendleton APRN TAFE TEACHER [address] [place] [address] Assigned Neuroscience Provider 11/09/21 Douglas Cadet MD [address] [place] [address] Assigned Gastroenterology Provider 03/14/22 09/03/23 Marlo Madsen MD [address] [place] [address]17 Assigned Heart and Vascular Provider 03/14/22 Abby Vasquez MD [address] [place] [address] Gastroenterology 07/16/22 Abby Vasquez MD [address] [place] [address]25 Assigned PCP 09/26/22 10/06/23 Airam Hodges PA-C [address] [place] [address] Physician Trench Pipe Layer Helper Surgery 07/19/23 Zain Quintana MD [address] [place] [address]35 Assigned Surgical Provider 10/07/23 Latricia Pettit PA-C [address] [place] [address] Assigned Gastroenterology Provider 10/15/23 documented as of this encounter
--- OUTSIDE RECORDS SUMMARY | 2023-12-27 14:26 | XMS_ITS | Encounter Summary ---
Author Name Unknown Organization [place] Address [address] [facility] [place] [address] Care Team Providers Care Plant Biology Professor Name Role Phone Alfonso Tang Primary Care Provider Unavailabl e Monty Musa MD Primary Care Provider [phone] Alfonso Tang Unavailable Unavailable Dayanara Bee MD Unavailable [phone] Min Lange MD Unavailable Unavailable BendMarlo molina MD Unavailable [phone] Mel Buckley RN Unavailable [phone] Douglas Cadet MD Unavailable [phone] Rosalba Pendleton APRN SUPERINTENDENT SERVICE Unavaila ble Rosalba Pendleton APRN SUPERINTENDENT SERVICE Unavaila ble Douglas Cadet MD Unavailable [phone] Marlo Madsen MD Unavailable [phone] Abby Vasquez MD Unavailable Abby Vasquez MD Unavailable Airam Hodges PA-C Unavailable [phone] Zain Quintana MD Unavailable [phone] Latricia Pettit PA-C Unavailable Encounter Details Date Type Department Care Team (Late st Contact Info) Description 04/02/2015 MyC Medical Advice [facility] 4th Floor, Clinic [address] 520976 [place] [address] Marlo Madsen MD [address] [place] [address] 129275 Social History Tobacco Use Types Packs/Day Years Used Date Smoking Tobacco: Never Smokeless Tobacco: Never Alcohol Use Standard Drinks/Week Comments No 0 (1 standard drink = 0.6 oz pur e alcohol) Sex and Gender Information Value Date Recorded Sex Assigned at Female 10/31/2021 7:59 AM PACK WORKER SUPERVISOR Gender Identity Female 10/31/2021 7:59 AM PACK WORKER SUPERVISOR Sexual Orientation Straight 10/31/2021 7: 59 AM PACK WORKER SUPERVISOR documented as of this encounter Plan of Treatment Upcoming Encounters Date Type Department Care Team (Late st Contact Info) Description 01/05/2024 12:50 PM CDT Therapy Visit [address] [address] Lainey Simon, PT [address] [place] [address] 539637 01/12/2024 12:50 PM CDT Therapy Visit [address] [address] Lainey Simon, PT [address] [place] [address] 01/13/2024 10:00 AM CDT Virtual Visit [facility] Neurology [address] 3rd [place] [phone] Rosalba Pendleton, MAXIMILIANO [facility] 9[address] [facility] [id number] [place] [address] 01/20/2024 8:00 PM CDT Therapy Visit [address] [phone] 01/26/2024 12:50 PM CDT Therapy Visit [facility] [address] [facility] [address] [place] [address] [place] [address] [place], [place] 396207 02/09/2024 12:50 PM CDT Therapy Visit [facility] [address] [facility] [address] [place] [address] [place] [address] [place], [place] 916707 03/14/2024 10:30 AM CDT Office Visit [address] [phone] Abhishek Acevedo PA-C [address] [address] 03/21/2024 11:30 AM CDT Office Visit [facility] [address] [address] Zain Quintana MD [address] [place] [address] 899135 03/21/2024 2:30 PM CDT Virtual Visit [facility] [address] [address] Latricia Pettit PA-C [address] [place] [address] 088895 06/07/2024 11:20 AM CDT Office Visit [facility] [address] 4th [place] [phone] Latricia Pettit PA-C [address] [place] [address] 661115 Abby Vasquez MD [address] [place] [address] [phone] documented as of this encounter Visit Diagnoses Not on filedocumented in this encounter Additional Health Concerns Infection Onset Date Last Indicated Resolved Time Rule Out COVID-19 04/03/2023 04/03/2023 04/04/2023 6:30 PM CDT documented as of this encounter Care Teams Plant Biology Professor Relationship Specialty Start Date End Date Alfonso Tang PCP - General Family Practice 09/04/13 08/12/21 Monty Musa MD [facility] [address] [place] [address] PCP - General Family Medicine 08/13/21 Alfonso Tang Family Practice 08/13/21 Dayanara Bee MD [address] 058095 Pediatrics 12/26/14 Min Lange MD [address] [address] Neurology 03/30/16 Marlo Madsen MD [address] 713475 Cardiology 10/27/16 Mel Buckley, RN Nurse Coordinator Physical Medicine and Rehabilitation 12/02/16 Douglas Cadet MD 500 [place] [address] Gastroenterology 08/13/21 Rosalba Pendleton APRN SUPERINTENDENT SERVICE [address] [place] [address] Nurse Practitioner Neurology 09/05/21 Rosalba Pendleton APRN SUPERINTENDENT SERVICE [address] [place] [address] Assigned Neuroscience Provider 11/09/21 Douglas Cadet MD [address] [place] [address] Assigned Gastroenterology Provider 03/14/22 09/03/23 Marlo Madsen MD [address] [place] [address] 75 [place], [place] 759585 Assigned Heart and Vascular Provider 03/14/22 Abby Vasquez MD [address] [place] [address] Gastroenterology 07/16/22 Abby Vasquez MD [address] [place] [address] Assigned PCP 09/26/22 10/06/23 Airam Hodges PA-C 500 [place] [address] Physician As400 Operator Surgery 07/19/23 Zain Quintana MD [address] [place] [address] 617165 Assigned Surgical Provider 10/07/23 Latricia Pettit PA-C [address] [place] [address] Assigned Gastroenterology Provider 10/15/23 documented as of this encounter
--- OUTSIDE RECORDS SUMMARY | 2023-12-27 14:26 | XMS_ITS | Encounter Summary ---
Author Name Unknown Organization [place] Address [address] [facility] [place] [address] Care Team Providers Care Payment Analyst Name Role Phone Monty Musa MD Primary Care Provider [phone] Alfonso Tang Unavailable Unavailable Dayanara Bee MD Unavailable [phone] Min Lange MD Unavailable Unavailable Marlo Madsen MD Unavailable [phone] Mel Buckley RN Unavailable [phone] Douglas Cadet MD Unavailable [phone] Rosalba Pendleton APRN FINISH PRODUCTION MANAGER Unavaila ble Rosalba Pendleton APRN FINISH PRODUCTION MANAGER Unavaila ble Douglas Cadet MD Unavailable [phone] Marlo Madsen MD Unavailable [phone] Abby Vasquez MD Unavailable Abby Vasquez MD Unavailable Airam Hodges PA-C Unavailable [phone] Zain Quintana MD Unavailable [phone] Latricia Pettit PA-C Unavailable [phone] Reason for Visit * Reason Onset Date Comments Appointment 08/13/2021 Encounter Details Date Type Department Care Team (Late st Contact Info) Description 08/13/2021 Telephone [facility] [address] 4th [place] [address] Douglas Cadet MD [address] [place] [address] Appointment Social History Tobacco Use Types Packs/Day Years Used Date Smoking Tobacco: Never Assessed Sex and Gender Information Value Date Recorded Sex Assigned at Female 10/31/2021 7:59 AM LICENSING OFFICER Gender Identity Female 10/31/2021 7:59 AM LICENSING OFFICER Sexual Orientation Straight 10/31/2021 7: 59 AM LICENSING OFFICER COVID-19 Exposure Response Date Recorded In the last month, have you been in contact with someone who was confirmed or suspected to have Coronavirus / COVID-19? Unable to assess 08/13/2021 10:06 AM LICENSING OFFICER documented as of this encounter Miscellaneous Notes * Telephone Encounter - Ashleigh Shahid - 08/13/2021 10:[address] [facility] Phone Message May a detailed message be left on voicemail: yes Reason for Call: Other: Patient is being referred for IBS and is experiencing weight loss, 80lbs within the last year. Please review per scheduling guidelines. Thanks! Action Taken: Message routed to: [facility] GI Travel Screening: Not Applicable NSING OFFICER documented in this encounter Plan of Treatment Upcoming Encounters Date Type Department Care Team (Late st Contact Info) Description 01/05/2024 12:50 PM CDT Therapy Visit [facility] [address] [place] [address] [address] [place], [place] 226547 [place] [id number] [place] [address] 01/12/2024 12:50 PM CDT Therapy Visit [address] [place] [address] Lainey Simon, PT [address] [place] [address] 01/13/2024 10:00 AM CDT Virtual Visit [facility]rology Clinic [address] 3rd [place] [phone] Rosalba Pendleton, [facility] [id number] [place], [place] 065725 01/20/2024 8:00 PM CDT Therapy Visit [address] [phone] 01/26/2024 12:50 PM CDT Therapy Visit [address] [address] Lainey Simon, PT [address] [place] [address] 02/09/2024 12:50 PM CDT Therapy Visit [address] [address] Lainey Simon, PT [address] [place] [address] 03/14/2024 10:30 AM CDT Office [place] [address] [place] [phone] Abhishek Acveedo PA-C [address] [address] 03/21/2024 11:30 AM CDT Office Visit [facility] [address] [phone] Zain Quintana MD [address] [place] [address] 264435 03/21/2024 2:30 PM CDT Virtual Visit [facility] [address] [phone] Latricia Pettit PA-C [address] [place] [address] 902805 06/07/2024 11:20 AM CDT Office Visit [facility] [address] [phone] Latricia Pettit PA-C [address] [place] [address] 750085 Abby Vasquez MD [address] [place] [address] 022565 documented as of this encounter Visit Diagnoses Not on filedocumented in this encounter Additional Health Concerns Infection Onset Date Last Indicated Resolved Time Rule Out COVID-19 04/03/2023 04/03/2023 04/04/2023 6:30 PM CDT documented as of this encounter Care Teams Payment Analyst Relationship Specialty Start Date End Date Monty Musa MD [facility] [address] [place] [address] PCP - General Family Medicine 08/13/21 Alfonso Tang [facility] [address] [place] [address] Family Practice 08/13/21 Dayanara Bee MD [address] [place] [address] Pediatrics 12/26/14 Min Lange MD [address] [address] Neurology 03/30/16 Marlo Madsen MD [address] [address] Cardiology 10/27/16 Mel Buckley, RN Nurse Coordinator Physical Medicine and Rehabilitation 12/02/16 Douglas Cadet MD 500 [place] [address] Gastroenterology 08/13/21 Rosalba Pendleton APRN FINISH PRODUCTION MANAGER [address] [place] [address] Nurse Practitioner Neurology 09/05/21 Rosalba Pendleton APRN FINISH PRODUCTION MANAGER [address] [place] [address] Assigned Neuroscience Provider 11/09/21 Douglas Cadet MD 500 [place] [address] Assigned Gastroenterology Provider 03/14/22 09/03/23 Marlo Madsen MD [address] [place] [address] Assigned Heart and Vascular Provider 03/14/22 Abby Vasquez MD [address] [place] [address] Gastroenterology 07/16/22 Abby Vasquez MD 9 [place] [address] Assigned PCP 09/26/22 10/06/23 Airam Hodges PA-C 500 [place] [address] Physician Gm Surgery 07/19/23 Zain Quintana MD 500 [place] [address] Assigned Surgical Provider 10/07/23 Latricia Pettit PA-C [address] [place] [address] Assigned Gastroenterology Provider 10/15/23 documented as of this encounter
--- OUTSIDE RECORDS SUMMARY | 2023-12-27 14:26 | XMS_ITS | Encounter Summary ---
Author Name Unknown Organization [place] Address [address] [facility] [place] [address] Care Team Providers Care Practice Lead Name Role Phone Motny Musa MD Primary Care Provider [phone] Alfonso Tang Unavailable Unavailable Dayanara Bee MD Unavailable [phone] Min Lange MD Unavailable Unavailable Marlo Madsen MD Unavailable [phone] Mel Buckley RN Unavailable [phone] Douglas Cadet MD Unavailable [phone] Rosalba Pendleton APRN WORKERS COMPENSATION CLAIMS SPECIALIST Unavaila ble Rosalba Pendleton APRN WORKERS COMPENSATION CLAIMS SPECIALIST Unavaila ble Douglas Cadet MD Unavailable [phone] Marlo Madsen MD Unavailable [phone] Abby Vasquez MD Unavailable Abby Vasquez MD Unavailable Airam Hodges PA-C Unavailable [phone] Zain Quintana MD Unavailable [phone] Latricia Pettit PA-C Unavailable [phone] Encounter Details Date Type Department Care Team (Late st Contact Info) Description 05/29/2022 MyC Medical Advice [facility] [address] [address] Andie Raya Social History Tobacco Use Types Packs/Day Years Used Date Smoking Tobacco: Never Smokeless Tobacco: Never Alcohol Use Standard Drinks/Week Comments No 0 (1 standard drink = 0.6 oz pur e alcohol) PHQ-2 Answer Date Recorded PHQ-2 Score 3 05/28/2022 Sex and Gender Information Value Date Recorded Sex Assigned at Female 10/31/2021 7:59 AM FOREST OFFICER Gender Identity Female 10/31/2021 7:59 AM FOREST OFFICER Sexual Orientation Straight 10/31/2021 7: 59 AM FOREST OFFICER COVID-19 Exposure Response Date Recorded In the last 10 days, have yo u been in contact with someone who was confirmed or suspected to have Coronavirus/COVID-19? No / Unsure 05/04/2022 7:58 AM CDT documented as of this encounter Plan of Treatment Upcoming Encounters Date Type Department Care Team (Late st Contact Info) Description 01/05/2024 12:50 PM CDT Therapy Visit [address] [address] Lainey Simon, PT [address] [place] [address] 01/12/2024 12:50 PM CDT Therapy Visit [address] [address] Lainey Simon, PT [address] [place] [address] 01/13/2024 10:00 AM CDT Virtual Visit [facility] [address] 3rd [place] [address] Rosalba Pendleton, CORE STICKER [address] [id number] [place] [address] 01/20/2024 8:00 PM CDT Therapy Visit [address] [phone] 01/26/2024 12:50 PM CDT Therapy Visit [address] 300 [place] [address] Lainey Simon, PT [address] [place] [address] 02/09/2024 12:50 PM CDT Therapy Visit [address] [address] Lainey Simon, PT [address] [place] [address] 110327 03/14/2024 10:30 AM CDT Office Visit [address] [phone] Abhishek Acevedo PAJyoti [address] [address] 03/21/2024 11:30 AM CDT Office Visit [facility] [address] [address] Zain Quintana MD [address] [place] [address] 57727455 03/21/2024 2:30 PM CDT Virtual Visit [facility] [address] [address] Latricia Pettit PALaurelC [address] [place] [address] 06/07/2024 11:20 AM CDT Office Visit [facility] [address] 4th [place] [phone] Latricia Pettit PA-C [address] [place] [address] 801565 Abby Vasquez MD [address] [place] [address] documented as of this encounter Visit Diagnoses Not on filedocumented in this encounter Additional Health Concerns Infection Onset Date Last Indicated Resolved Time Rule Out COVID-19 04/03/2023 04/03/2023 04/04/2023 6:30 PM CDT Assessment Noted Time PHQ-9 Depression Total Score: 11 022 11:52 AM CDT documented as of this encounter Care Teams Practice Lead Relationship Specialty Start Date End Date Monty Musa MD [facility] [address] [place] [address] PCP - General Family Medicine 08/13/21 Alfonso Tang [facility] [address] [place] [address] Family Practice 08/13/21 Dayanara Bee MD [address] [place] [address] Pediatrics 12/26/14 Min Lange MD [address] [address] Neurology 03/30/16 Marlo Madsen MD [address] [address] Cardiology 10/27/16 Mel Buckley, RN Nurse Coordinator Physical Medicine and Rehabilitation 12/02/16 Douglas Cadet MD [address] [place] [address] Gastroenterology 08/13/21 Rosalba Pendleton APRN WORKERS COMPENSATION CLAIMS SPECIALIST [address] [place] [address] Nurse Practitioner Neurology 09/05/21 Rosalba Pendleton APRN WORKERS COMPENSATION CLAIMS SPECIALIST [address] [place] [address] Assigned Neuroscience Provider 11/09/21 Douglas Cadet MD [address] [place] [address] Assigned Gastroenterology Provider 03/14/22 09/03/23 Marlo Madsen MD [address] [place] [address] Assigned Heart and Vascular Provider 03/14/22 Abby Vasquez MD [address] [place] [address] Gastroenterology 07/16/22 Abby Vasquez MD [address] [place] [address] Assigned PCP 09/26/22 10/06/23 Airam Hodges PA-C [address] [place] [address] Physician Box Press Operator Surgery 07/19/23 Zain Quintana MD [address] [place], [place] [phone] Assigned Surgical Provider 10/07/23 Latricia Pettit PA-C [address] [place] [address] 539125 Assigned Gastroenterology Provider 10/15/23 documented as of this encounter
--- OUTSIDE RECORDS SUMMARY | 2023-12-27 14:26 | XMS_ITS | Encounter Summary ---
Author Name Unknown Organization [place] Address [address] [facility] [place] [address] Care Team Providers Care Explosives Detonator Name Role Phone Monty Musa MD Primary Care Provider [phone] Alfonso Tang Unavailable Unavailable Dayanara Bee MD Unavailable [phone] Min Lange MD Unavailable Unavailable Marlo Madsen MD Unavailable [phone] Mel Buckley RN Unavailable [phone] Douglas Cadet MD Unavailable [phone] Rosalba Pendleton APRN CORE STRIPPER Unavaila ble Rosalba Pendleton APRN CORE STRIPPER Unavaila ble Douglas Cadet MD Unavailable [phone] Marlo Madsen MD Unavailable [phone] Abby Vasquez MD Unavailable Abby Vasquez MD Unavailable Airam Hodges PA-C Unavailable [phone] Zain Quintana MD Unavailable [phone] Latricia Pettit PA-C Unavailable [phone] Encounter Details Date Type Department Care Team (Late st Contact Info) Description 09/07/2021 MyC Medical Advice Initial Department Andie Raya Social History Tobacco Use Types Packs/Day Years Used Date Smoking Tobacco: Never Assessed Sex and Gender Information Value Date Recorded Sex Assigned at Female 10/31/2021 7:59 AM GIFTS OFFICER Gender Identity Female 10/31/2021 7:59 AM GIFTS OFFICER Sexual Orientation Straight 10/31/2021 7: 59 AM GIFTS OFFICER COVID-19 Exposure Response Date Recorded In the last month, have you been in contact with someone who was confirmed or suspected to have Coronavirus / COVID-19? Unable to assess 08/13/2021 10:06 AM GIFTS OFFICER documented as of this encounter Plan of Treatment Upcoming Encounters Date Type Department Care Team (Late st Contact Info) Description 01/05/2024 12:50 PM CDT Therapy Visit [address] [address] Lainey Simon, PT [address] [place] [address] 01/12/2024 12:50 PM CDT Therapy Visit [address] [address] Lainey Simon, PT [address] [place] [address] 01/13/2024 10:00 AM CDT Virtual Visit [facility] [address] 3rd [place] [address] Rosalba Pendleton, MAXIMILIANO [address] [place], [place] [address] 01/20/2024 8:00 PM CDT Therapy Visit [facility] [address] [place] [phone] 01/26/2024 12:50 PM CDT Therapy Visit [facility] [place] [address] [facility] [address] [place] [address] [place] [address] [place] [address] 02/09/2024 12:50 PM CDT Therapy Visit [facility] [place] [address] [facility] [address] [place] [address] [place] [address] [place], [place] 735317 03/14/2024 10:30 AM CDT Office Visit [facility] [place] [address] [place] [address] [phone] Abhishek Acevedo PA-C [address] [facility] [address] [place] [address] 03/21/2024 11:30 AM CDT Office Visit [facility] [address] [phone] Zain Quintana MD [address] [place] [address] 825965 03/21/2024 2:30 PM CDT Virtual Visit [facility] [address] [phone] Latricia Pettit PA-C [address] [place] [address] 598915 06/07/2024 11:20 AM CDT Office Visit [facility] [address] [phone] Latricia Pettit PA-C 9 [place] [address] Abby Vasquez MD [address] [place] [address] documented as of this encounter Visit Diagnoses Not on filedocumented in this encounter Additional Health Concerns Infection Onset Date Last Indicated Resolved Time Rule Out COVID-19 04/03/2023 04/03/2023 04/04/2023 6:30 PM CDT documented as of this encounter Care Teams Explosives Detonator Relationship Specialty Start Date End Date Monty Musa MD [facility] [address] [place] [address] PCP - General Family Medicine 08/13/21 Alfonso Tang [facility] [address] [place] [address] Family Practice 08/13/21 Dayanara Bee MD [address] 457025 Pediatrics 12/26/14 Min Lange MD [address] [address] Neurology 03/30/16 Marlo Madsen MD [address] [place] [address] Cardiology 10/27/16 Mel Buckley, RN Nurse Coordinator Physical Medicine and Rehabilitation 12/02/16 Douglas Cadet MD [address] [place] [address] Gastroenterology 08/13/21 Rosalba Pendleton, CERAMIC TILER CORE STRIPPER [address] [place] [address] [address] Nurse Practitioner Neurology 09/05/21 Rosalba Pendleton APRN CORE STRIPPER [address] [place] [address] [address] Assigned Neuroscience Provider 11/09/21 Douglas Cadet MD [address] [place] [address] 124905 Assigned Gastroenterology Provider 03/14/22 09/03/23 Marlo Madsen MD [address] [place] [address] 75 [place], [place] 840475 Assigned Heart and Vascular Provider 03/14/22 Abby Vasquez MD [address] [place] [address] 578085 Gastroenterology 07/16/22 Abby Vasquez MD [address] [place] [address] 132635 Assigned PCP 09/26/22 10/06/23 Airam Hodges PA-C [address] [place] [address] Physician Sorting Grapple Operator Surgery 07/19/23 Zain Quintana MD [address] [place] [address] Assigned Surgical Provider 10/07/23 Latricia Pettit PA-C [address] [place] [address] Assigned Gastroenterology Provider 10/15/23 documented as of this encounter
--- OUTSIDE RECORDS SUMMARY | 2023-12-27 14:26 | XMS_ITS | Encounter Summary ---
Author Name Unknown Organization [place] Address [address] [facility] [place] [address] Care Team Providers Care Transportation Sales Consultant Name Role Phone Monty Musa MD Primary Care Provider [phone] Alfonso Tang Unavailable Unavailable Dayanara Bee MD Unavailable [phone] Min Lange MD Unavailable Unavailable Marlo Madsen MD Unavailable [phone] Mel Buckley RN Unavailable [phone] Douglas Cadet MD Unavailable [phone] Rosalba Pendleton APRN X RAY EQUIPMENT MECHANIC Unavaila ble Rosalba Pendleton APRN X RAY EQUIPMENT MECHANIC Unavaila ble Douglas Cadet MD Unavailable [phone] Marlo Madsen MD Unavailable [phone] Abby Vasquez MD Unavailable Abby Vasquez MD Unavailable Airam Hodges PA-C Unavailable [phone] Zain Quintana MD Unavailable [phone] Latricia Pettit PA-C Unavailable [phone] Encounter Details Date Type Department Care Team (Late st Contact Info) Description 03/17/2022 MyC Medical Advice [facility] [address] [address] Virginia Rendon, RN 9 [place], [place] [phone] Social History Tobacco Use Types Packs/Day Years Used Date Smoking Tobacco: Never Smokeless Tobacco: Never Alcohol Use Standard Drinks/Week Comments No 0 (1 standard drink = 0.6 oz pur e alcohol) PHQ-2 Answer Date Recorded PHQ-2 Score 4 01/14/2022 Sex and Gender Information Value Date Recorded Sex Assigned at Female 10/31/2021 7:59 AM LIVESTOCK PRODUCER Gender Identity Female 10/31/2021 7:59 AM LIVESTOCK PRODUCER Sexual Orientation Straight 10/31/2021 7: 59 AM LIVESTOCK PRODUCER COVID-19 Exposure Response Date Recorded In the last 10 days, have yo u been in contact with someone who was confirmed or suspected to have Coronavirus/COVID-19? No / Unsure 03/18/2022 8:57 AM CDT documented as of this encounter Plan of Treatment Upcoming Encounters Date Type Department Care Team (Late st Contact Info) Description 01/05/2024 12:50 PM CDT Therapy Visit [address] [address] Lainey Simon, PT [address] [place] [address] 01/12/2024 12:50 PM CDT Therapy Visit [address] [address] Lainey Simon, PT [address] [place] [address] 01/13/2024 10:00 AM CDT Virtual Visit [facility] Neurology Clinic [address] 3rd [place] [address] Rosalba Pendleton, LAB ANIMAL TECHNICIAN X RAY EQUIPMENT MECHANIC [address] [place] [address] [id number] [place] [address] 01/20/2024 8:00 PM CDT Therapy Visit [facility] Sleep [facility] [address] [phone] 01/26/2024 12:50 PM CDT Therapy Visit [address] [address] Lainey Simon, PT [address] [place] [address] 447647 02/09/2024 12:50 PM CDT Therapy Visit [address] [address] [place] [address] [place] [address] 03/14/2024 10:30 AM CDT Office Visit [facility] Sleep [facility] [address] [phone] Abhishek Acevedo PA-C [address] [address] 03/21/2024 11:30 AM CDT Office Visit [facility] [address] [address] Zain Quintana MD [address] [place] [address] 337535 03/21/2024 2:30 PM CDT Virtual Visit [facility] Gastroenterology Clinic [address] [phone] Latricia Pettit PA-C [address] [place] [address] 205015 06/07/2024 11:20 AM CDT Office Visit [facility] Gastroenterology Clinic [address] 4th [place] [phone] Latricia Pettit PA-C [address] [place] [address] 358285 Abby Vasquez MD [address] [place] [address] 569555 documented as of this encounter Visit Diagnoses Not on filedocumented in this encounter Additional Health Concerns Infection Onset Date Last Indicated Resolved Time Rule Out COVID-19 04/03/2023 04/03/2023 04/04/2023 6:30 PM CDT Assessment Noted Time PHQ-9 Depression Total Score: 17 022 7:02 AM CDT documented as of this encounter Care Teams Transportation Sales Consultant Relationship Specialty Start Date End Date Monty Musa MD [facility] [address] [place] [address] PCP - General Family Medicine 08/13/21 Alfonso Tang [facility] [address] [place] [address] Family Practice 08/13/21 Dayanara Bee MD [address] 963555 Pediatrics 12/26/14 Min Lange MD [address] [address] Neurology 03/30/16 Marlo Madsen MD [address] [address] MD Cardiology 10/27/16 Mel Buckley, RN Nurse Coordinator Physical Medicine and Rehabilitation 12/02/16 Douglas Cadet MD 500 [place] [address] Gastroenterology 08/13/21 Rosalba Pendleton APRN X RAY EQUIPMENT MECHANIC [address] [place] [address] 434725 Nurse Practitioner Neurology 09/05/21 Rosalba Pendleton APRN X RAY EQUIPMENT MECHANIC [address] [place] [address] 133685 Assigned Neuroscience Provider 11/09/21 Douglas Cadet MD 500 [place] [address] Assigned Gastroenterology Provider 03/14/22 09/03/23 Marlo Madsen MD [address] [place] [address] Assigned Heart and Vascular Provider 03/14/22 Abby Vasquez MD [address] [place] [address] 696635 Gastroenterology 07/16/22 Abby Vasquez MD [address] [place] [address] 902865 Assigned PCP 09/26/22 10/06/23 Airam Hodges PA-C 500 [place] [address] Physician Fairing Worker Surgery 07/19/23 Zain Quintana MD 500 [place], [place] 684055 Assigned Surgical Provider 10/07/23 Latricia Pettit PA-C 909 [place] [address] Assigned Gastroenterology Provider 10/15/23 documented as of this encounter
--- OUTSIDE RECORDS SUMMARY | 2023-12-27 14:26 | XMS_ITS | Encounter Summary ---
Author Name Unknown Organization [place] Address [address] [facility] [place] [address] Care Team Providers Care Fish Cutter Name Role Phone Alfonso Tang Primary Care Provider Unavailabl e Monty Musa MD Primary Care Provider [phone] Alfonso Tang Unavailable Unavailable Dayanara Bee MD Unavailable [phone] Min Lange MD Unavailable Unavailable BendMarlo molina MD Unavailable [phone] Mel Buckley RN Unavailable [phone] Douglas Cadet MD Unavailable [phone] Rosalba Pendleton APRN HOME HEALTH LPN Unavaila ble Rosalba Pendleton APRN HOME HEALTH LPN Unavaila ble Douglas Cadet MD Unavailable [phone] Marlo Madsen MD Unavailable [phone] Abby Vasquez MD Unavailable Abby Vasquez MD Unavailable Airam Hodges PA-C Unavailable [phone] Zain Quintana MD Unavailable [phone] Latricia Pettit PA-C Unavailable Encounter Details [...] Sex Assigned at Female 10/31/2021 7:59 AM PRINTING MANAGER Gender Identity Female 10/31/2021 7:59 AM PRINTING MANAGER Sexual Orientation Straight 10/31/2021 7: 59 AM PRINTING MANAGER documented as of this encounter Plan of Treatment Upcoming Encounters Date Type Department Care Team (Late st Contact Info) Description 01/05/2024 12:50 PM CDT Therapy Visit [address] [place] [address] Lainey Simon, PT [address] [place] [address] 01/12/2024 12:50 PM CDT Therapy Visit [address] [address] Lainey Simon, PT [address] [place] [address] 01/13/2024 10:00 AM CDT Virtual Visit [facility] Neurology Clinic [address] 3rd [place] [phone] Rosalba Pendleton APRN [address] [place], [place] [address] 01/20/2024 8:00 PM CDT Therapy Visit [facility] Sleep Centers [address] [address] 01/26/2024 12:50 PM CDT Therapy Visit [facility] [address] [facility] [address] [place] [address] [place] [address] [place] [address] 02/09/2024 12:50 PM CDT Therapy Visit [facility] [address] [facility] 300 [place] [address] [place] [address] [place] [address] 03/14/2024 10:30 AM CDT Office Visit [facility] Sleep [facility] [address] [place] [phone] Abhishek Acevedo PA-C [address] [phone] 03/21/2024 11:30 AM CDT Office Visit [facility]al Surgery [facility] [address] [phone] Zain Quintana MD [address] [place] [address] 415875 03/21/2024 2:30 PM CDT Virtual Visit [facility] Gastroenterology Clinic [address] [phone] Latricia Pettit PA-C [address] [place] [address] 838195 06/07/2024 11:20 AM CDT Office Visit [facility] Gastroenterology Clinic [address] [phone] Latricia Pettit PA-C [address] [place] [address] Abby Vasquez MD [address] [place] [address] 537415 documented as of this encounter Visit Diagnoses Not on filedocumented in this encounter Additional Health Concerns Infection Onset Date Last Indicated Resolved Time Rule Out COVID-19 04/03/2023 04/03/2023 04/04/2023 6:30 PM CDT documented as of this encounter Care Teams Fish Cutter Relationship Specialty Start Date End Date Alfonso Tang PCP - General Family Practice 09/04/13 08/12/21 Monty Musa MD [facility] MEDICAL [facility] [address] [place] [address] PCP - General [facility] Medicine 08/13/21 Alfonso Tang [facility] Practice 08/13/21 Dayanara Bee MD [address] [address] Pediatrics 12/26/14 Min Lange MD [address] [address] Neurology 03/30/16 Marlo Madsen MD [address] [place] [address] Cardiology 10/27/16 Mel Buckley, RN Nurse Coordinator Physical Medicine and Rehabilitation 12/02/16 Douglas Cadet MD [address] [place] [address] Gastroenterology 08/13/21 Rosalba Pendleton APRN HOME HEALTH LPN [address] [place], [place] [address] [address] Nurse Practitioner Neurology 09/05/21 Rosalba Pendleton APRN HOME HEALTH LPN [address] [place] [address] Assigned Neuroscience Provider 11/09/21 Douglas Cadet MD [address] [place] [address] 766565 Assigned Gastroenterology Provider 03/14/22 09/03/23 Marlo Madsen MD [address] [place] [address] 75 [place], [place] 195805 Assigned Heart and Vascular Provider 03/14/22 Abby Vasquez MD [address] [place] [address] 360155 Gastroenterology 07/16/22 Abby Vasquez MD [address] [place] [address] 663455 Assigned PCP 09/26/22 10/06/23 Airam Hodges PA-C [address] [place] [address] Physician Wire Hanger Surgery 07/19/23 Zain Quintana MD [address] [place] [address] Assigned Surgical Provider 10/07/23 Latricia Pettit PA-C 9 [place] [address] Assigned Gastroenterology Provider 10/15/23 documented as of this encounter
--- OUTSIDE RECORDS SUMMARY | 2023-12-27 14:26 | XMS_ITS | Encounter Summary ---
Author Name Unknown Organization [place] Address [address] [facility] [place] [address] Care Team Providers Care Filter Tank Tender Name Role Phone Alfonso Tang Primary Care Provider Unavailabl e Monty Musa MD Primary Care Provider [phone] Alfonso Tang Unavailable Unavailable Dayanara Bee MD Unavailable [phone] Min Lange MD Unavailable Unavailable BendMarlo molina MD Unavailable +[phone] Mel Buckley RN Unavailable [phone] Douglas Cadet MD Unavailable [phone] Rosalba Pendleton APRN ECONOMIC CONSULTANT Unavaila ble Rosalba Pendleton APRN ECONOMIC CONSULTANT Unavaila ble Douglas Cadet MD Unavailable [phone] Marlo Madsen MD Unavailable +[phone] Abby Vasquez MD Unavailable Abby Vasquez MD Unavailable Airam Hodges PA-C Unavailable [phone] Zain Quintana MD Unavailable [phone] Latricia Pettit PA-C Unavailable Encounter Details [...] Sex Assigned at Female 10/31/2021 7:59 AM CHIEF LIBRARIAN BRANCH OR DEPARTMENT Gender Identity Female 10/31/2021 7:59 AM CHIEF LIBRARIAN BRANCH OR DEPARTMENT Sexual Orientation Straight 10/31/2021 7: 59 AM CHIEF LIBRARIAN BRANCH OR DEPARTMENT documented as of this encounter Plan of Treatment Upcoming Encounters Date Type Department Care Team (Late st Contact Info) Description 01/05/2024 12:50 PM CDT Therapy Visit [address] [place] [address] Lainey Simon, PT [address] [place] [address] 01/12/2024 12:50 PM CDT Therapy Visit [address] [address] Lainey Simon, PT [address] [place] [place] [address] 49[address] 01/13/2024 10:00 AM CDT Virtual Visit [facility] [address] 3rd [place] [phone] Rosalba Pendleton APRN [address] [place], [place] [address] 01/20/2024 8:00 PM CDT Therapy Visit [facility] [address] [address] 01/26/2024 12:50 PM CDT Therapy Visit [facility] [address] [facility] [address] [place] [address] [place] [address] [place] [address] 02/09/2024 12:50 PM CDT Therapy Visit [facility] [address] [facility] 300 [place] [address] [place], [place] [address] [place] [address] 03/14/2024 10:30 AM CDT Office Visit [facility] [address] [place] [address] [phone] Abhishek Acevedo PA-C [address] [phone] 03/21/2024 11:30 AM CDT Office Visit [facility] [address] [phone] Zain Quintana MD [address] [place] [address] 911605 03/21/2024 2:30 PM CDT Virtual Visit [facility] [address] [phone] Latricia Pettit PA-C [address] [place] [address] 159285 06/07/2024 11:20 AM CDT Office Visit [facility] [address] [phone] Latricia Pettit PA-C [address] [place] [address] Abby Vasquez MD [address] [place] [address] [phone] documented as of this encounter Visit Diagnoses Not on filedocumented in this encounter Additional Health Concerns Infection Onset Date Last Indicated Resolved Time Rule Out COVID-19 04/03/2023 04/03/2023 04/04/2023 6:30 PM CDT documented as of this encounter Care Teams Filter Tank Tender Relationship Specialty Start Date End Date Alfonso Tang PCP - General Family Practice 09/04/13 08/12/21 Monty Musa MD [facility] [address] [place] [address] PCP - General [facility] Medicine 08/13/21 Alfonso Tang [facility] Practice 08/13/21 Dayanara Bee MD [address] [address] Pediatrics 12/26/14 Min Lange MD [address] [address] Neurology 03/30/16 Marlo Madsen MD [address] [place] [address] Cardiology 10/27/16 Mel Buckley, RN Nurse Coordinator Physical Medicine and Rehabilitation 12/02/16 Douglas Cadet MD [address] [place] [address]71 Gastroenterology 08/13/21 Rosalba Pendleton APRN ECONOMIC CONSULTANT [address] [place], [place] [address] [address] Nurse Practitioner Neurology 09/05/21 Rosalba Pendleton APRN ECONOMIC CONSULTANT [address] [place], [place] [address] [address] Assigned Neuroscience Provider 11/09/21 Douglas Cadet MD [address] [place] [address] 259745 Assigned Gastroenterology Provider 03/14/22 09/03/23 Marlo Madsen MD [address] [place] [address] 75 [place], [place] 285465 Assigned Heart and Vascular Provider 03/14/22 Abby Vasquez MD [address] [place] [address] 627665 Gastroenterology 07/16/22 Abby Vasquez MD [address] [place] [address] 450095 Assigned PCP 09/26/22 10/06/23 Airam Hodges PA-C [address] [place] [address]92 Physician Packaging Specialist Surgery 07/19/23 Zain Quintana MD [address] [place] [address] 24678 Assigned Surgical Provider 10/07/23 Latricia Pettit PA-C 9 [place] [address] Assigned Gastroenterology Provider 10/15/23 documented as of this encounter
--- OUTSIDE RECORDS SUMMARY | 2023-12-27 14:26 | XMS_ITS | Encounter Summary ---
Author Name Unknown Organization [place] Address [address] [facility] [place] [address] Care Team Providers Care Transport Aircrewman Name Role Phone Alfonso Tang Primary Care Provider Unavailabl e Monty Musa MD Primary Care Provider [phone] Alfonso Tang Unavailable Unavailable Dayanara Bee MD Unavailable [phone] Min Lange MD Unavailable Unavailable BendMarlo molina MD Unavailable +[phone] Mel Buckley RN Unavailable [phone] Douglas Cadet MD Unavailable [phone] Rosalba Pendleton APRN NIGHT AUDITOR Unavaila ble Rosalba Pendleton APRN NIGHT AUDITOR Unavaila ble Douglas Cadet MD Unavailable [phone] Marlo Madesn MD Unavailable +[phone] Abby Vasquez MD Unavailable Abby Vasquez MD Unavailable Airam Hodges PA-C Unavailable [phone] Zain Quintana MD Unavailable [phone] Latricia Pettit PA-C Unavailable [phone] Encounter Details Date Type Department Care Team (Late st Contact Info) Description 07/30/2015 [facility] Medical Advice Medicine GI - 1E [facility] 1st Floor, Clinic 1E [address] [place] [address] Ama Bustamante RN Social History Tobacco Use Types Packs/Day Years Used Date Smoking Tobacco: Never Smokeless Tobacco: Never Alcohol Use Standard Drinks/Week Comments No 0 (1 standard drink = 0.6 oz pur e alcohol) Sex and Gender Information Value Date Recorded Sex Assigned at Female 10/31/2021 7:59 AM MANAGER STUDENT SERVICES Gender Identity Female 10/31/2021 7:59 AM MANAGER STUDENT SERVICES Sexual Orientation Straight 10/31/2021 7: 59 AM MANAGER STUDENT SERVICES documented as of this encounter Plan of Treatment Upcoming Encounters Date Type Department Care Team (Late st Contact Info) Description 01/05/2024 12:50 PM CDT Therapy Visit [address] [address] Lainey Simon, PT [address] [place] [address] 696547 01/12/2024 12:50 PM CDT Therapy Visit [address] [address] Lainey Simon, PT [address] [place] [address] 01/13/2024 10:00 AM CDT Virtual Visit [facility] [address] 3rd [place] [phone] Rosalba Pendleton, MAXIMILIANO [address] [id number] [place] [address] 01/20/2024 8:00 PM CDT Therapy Visit [address] [phone] 01/26/2024 12:50 PM CDT Therapy Visit [facility] [address] [facility] [address] [place] [address] [place] [address] [place], [place] [phone] 02/09/2024 12:50 PM CDT Therapy Visit [facility] [address]83 [facility] 300 [place] [address] [place] [address] [place], [place] 6[address]77 03/14/2024 10:30 AM CDT Office Visit [address] [phone] Abhishek Acevedo PA-C [address] [address] 03/21/2024 11:30 AM CDT Office Visit [facility] [address] [phone] Zain Quintana MD [address] [place] [address] 274305 03/21/2024 2:30 PM CDT Virtual Visit [facility] [address] [phone] Latricia Pettit PA-C [address] [place] [address] 06/07/2024 11:20 AM CDT Office Visit [facility] [address] 4th [place] [address] Latricia Pettit PA-C [address] [place] [address] 802845 Abby Vasquez MD [address] [place] [address] 895635 documented as of this encounter Visit Diagnoses Not on filedocumented in this encounter Additional Health Concerns Infection Onset Date Last Indicated Resolved Time Rule Out COVID-19 04/03/2023 04/03/2023 04/04/2023 6:30 PM CDT documented as of this encounter Care Teams Transport Aircrewman Relationship Specialty Start Date End Date Alfonso Tang PCP - General Family Practice 09/04/13 08/12/21 Monty Musa MD [facility] [address] [place] [address] PCP - General [facility] Medicine 08/13/21 Alfonso Tang [facility] Practice 08/13/21 Dayanara Bee MD [address] [place] [address] 497015 Pediatrics 12/26/14 Min Lange MD [address] [place] [address] Neurology 03/30/16 Marlo Madsen MD [address] [place] [address] 068075 Cardiology 10/27/16 Mel Buckley, RN Nurse Coordinator Physical Medicine and Rehabilitation 12/02/16 Douglas Cadet MD [address] [place] [address] Gastroenterology 08/13/21 Rosalba Pendleton APRN NIGHT AUDITOR [address] [place] [address] Nurse Practitioner Neurology 09/05/21 Rosalba Pendleton APRN NIGHT AUDITOR [address] [place] [address] 9[address]66 Assigned Neuroscience Provider 11/09/21 Douglas Cadet MD [address] [place] [address] Assigned Gastroenterology Provider 03/14/22 09/03/23 Marlo Madsen MD [address] [place] [address] 9[address]01 Assigned Heart and Vascular Provider 03/14/22 Abby Vasquez MD [address] [place] [address] Gastroenterology 07/16/22 Abby Vasquez MD [address] [place] [place] [address] Assigned PCP 09/26/22 10/06/23 Airam Hodges PA-C [address] [place] [address] Physician Pulmonary Specialist Surgery 07/19/23 Zain Quintana MD [address] [place] [address] Assigned Surgical Provider 10/07/23 Latricia Pettit PA-C 909 [place] [address] Assigned Gastroenterology Provider 10/15/23 documented as of this encounter
--- OUTSIDE RECORDS SUMMARY | 2023-12-27 14:26 | XMS_ITS | Encounter Summary ---
Author Name Unknown Organization [place] Address [address] [facility] [place] [address] Care Team Providers Care Board Of Directors Name Role Phone Monty Musa MD Primary Care Provider [phone] Alfonso Tang Unavailable Unavailable Dayanara Bee MD Unavailable [phone] Min Lange MD Unavailable Unavailable Marlo Madsen MD Unavailable [phone] Mel Buckley RN Unavailable [phone] Douglas Cadet MD Unavailable [phone] Rosalba Pendleton APRN EGG SORTER Unavaila ble Rosalba Pendleton APRN EGG SORTER Unavaila ble Douglas Cadet MD Unavailable [phone] Marlo Madsen MD Unavailable [phone] Abby Vasquez MD Unavailable Abby Vasquez MD Unavailable Airam Hodges PA-C Unavailable [phone] Zain Quintana MD Unavailable [phone] Latricia Pettit PA-C Unavailable [phone] Encounter Details Date Type Department Care Team (Late st Contact Info) Description 02/20/2022 MyC Medical Advice [facility] [address] [place] [phone] Cindy Vines CMA Social History Tobacco Use Types Packs/Day Years Used Date Smoking Tobacco: Never Smokeless Tobacco: Never Alcohol Use Standard Drinks/Week Comments No 0 (1 standard drink = 0.6 oz pur e alcohol) PHQ-2 Answer Date Recorded PHQ-2 Score 4 01/14/2022 Sex and Gender Information Value Date Recorded Sex Assigned at Female 10/31/2021 7:59 AM ASSOCIATE GENETICS PROFESSOR Gender Identity Female 10/31/2021 7:59 AM ASSOCIATE GENETICS PROFESSOR Sexual Orientation Straight 10/31/2021 7: 59 AM ASSOCIATE GENETICS PROFESSOR documented as of this encounter Plan of Treatment Upcoming Encounters Date Type Department Care Team (Late st Contact Info) Description 01/05/2024 12:50 PM CDT Therapy Visit [address] [address] Lainey Simon, PT [address] [place] [address] 01/12/2024 12:50 PM CDT Therapy Visit [address] [address] Lainey Simon, PT [address] [place] [address] 01/13/2024 10:00 AM CDT Virtual Visit [facility] [address] 3rd [place] [phone] Rosalba Pendleton, MAXIMILIANO [address] [id number] [place] [address] 01/20/2024 8:00 PM CDT Therapy Visit [facility] Sleep [address] [phone] 01/26/2024 12:50 PM CDT Therapy Visit [facility] [address] [facility] [address] [place] [address] [place] [address] [place], [place] 183757 02/09/2024 12:50 PM CDT Therapy Visit [facility] [address] [facility] [address] [place] [address] [place] [address] [place], [place] 565847 03/14/2024 10:30 AM CDT Office Visit [address] [phone] Abhishek Acevedo PA-C [address] [address] 03/21/2024 11:30 AM CDT Office Visit [facility] [address] [phone] Zain Quintana MD [address] [place] [address] 397455 03/21/2024 2:30 PM CDT Virtual Visit [facility]ology [facility] [address] [phone] Latricia Pettit PA-C [address] [place] [address] 768935 06/07/2024 11:20 AM CDT Office Visit [facility] [address] [place] [phone] Latricia Pettit PA-C [address] [place] [address] 908265 Abby Vasquez MD [address] [place] [address] 671575 documented as of this encounter Visit Diagnoses Not on filedocumented in this encounter Additional Health Concerns Infection Onset Date Last Indicated Resolved Time Rule Out COVID-19 04/03/2023 04/03/2023 04/04/2023 6:30 PM CDT Assessment Noted Time PHQ-9 Depression Total Score: 17 022 7:02 AM CDT documented as of this encounter Care Teams Board Of Directors Relationship Specialty Start Date End Date Monty Musa MD [facility] [address] [place] [address] PCP - General Family Medicine 08/13/21 Alfonso Tang [facility] [address] [place] [address] Family Practice 08/13/21 Dayanara Bee MD [address] [place] [address] 994335 Pediatrics 12/26/14 Min Lange MD [address] [place] [address] Neurology 03/30/16 Marlo Madsen MD [address] [place] [address] 115795 Cardiology 10/27/16 Mel Buckley, RN Nurse Coordinator Physical Medicine and Rehabilitation 12/02/16 Douglas Cadet MD [address] [place] [address] Gastroenterology 08/13/21 Rosalba Pendleton APRN EGG SORTER [address] [place] [address] Nurse Practitioner Neurology 09/05/21 Rosalba Pendleton APRN EGG SORTER [address] [place] [address] 82769 Assigned Neuroscience Provider 11/09/21 Douglas Cadet MD [address] [place] [address]57 Assigned Gastroenterology Provider 03/14/22 09/03/23 Marlo Madsen MD [address] [place] [address] 7[address]40 Assigned Heart and Vascular Provider 03/14/22 Abby Vasquez MD [address] [place] [address] Gastroenterology 07/16/22 Abby Vasquez MD [address] [place] [address] Assigned PCP 09/26/22 10/06/23 Airam Hodges PA-C [address] [place] [address] Physician Senior Facilities Manager Surgery 07/19/23 Zain Quintana MD [address] [place] [address]684 Assigned Surgical Provider 10/07/23 Latricia Pettit PA-C 909 [place] [address] Assigned Gastroenterology Provider 10/15/23 documented as of this encounter
--- OUTSIDE RECORDS SUMMARY | 2023-12-27 14:26 | XMS_ITS | Encounter Summary ---
Author Name Unknown Organization [place] Address [address] [place] [address] Care Team Providers Care Youth Accommodation Support Worker Name Role Phone Alfonso Tang Primary Care Provider Unavailabl e Monty Musa MD Primary Care Provider [phone] Alfonso Tang Unavailable Unavailable Dayanara Bee MD Unavailable [phone] Min Lange MD Unavailable Unavailable BendMarlo molina MD Unavailable +[phone] Mel Buckley RN Unavailable [phone] Douglas Cadet MD Unavailable [phone] Rosalba Pendleton APRN AIR DRIER Unavaila ble Rosalba Pendleton APRN AIR DRIER Unavaila ble Douglas Cadet MD Unavailable [phone] Marlo Madsen MD Unavailable [phone] Abby Vasquez MD Unavailable Abby Vasquez MD Unavailable Airam Hodges PA-C Unavailable [phone] Zain Quintana MD Unavailable [phone] Latricia Pettit PA-C Unavailable Encounter Details Date Type Department Care Team (Late st Contact Info) Description 12/12/2016 MyC Medical Advice [facility]ology [facility] [address] [phone] Chaitanya Garza MD 6 [facility] [address] [place], [place] [phone] Social History Tobacco Use Types Packs/Day Years Used Date Smoking Tobacco: Never Smokeless Tobacco: Never Alcohol Use Standard Drinks/Week Comments No 0 (1 standard drink = 0.6 oz pur e alcohol) Sex and Gender Information Value Date Recorded Sex Assigned at Female 10/31/2021 7:59 AM SENIOR CLINICAL SAS PROGRAMMER Gender Identity Female 10/31/2021 7:59 AM SENIOR CLINICAL SAS PROGRAMMER Sexual Orientation Straight 10/31/2021 7: 59 AM SENIOR CLINICAL SAS PROGRAMMER documented as of this encounter Plan of Treatment Upcoming Encounters Date Type Department Care Team (Late st Contact Info) Description 01/05/2024 12:50 PM CDT Therapy Visit [address] [address] Lainey Simon, PT [address] [place] [address] 533967 01/12/2024 12:50 PM CDT Therapy Visit [address] [address] Lainey Simon, PT [address] [place] [address] 01/13/2024 10:00 AM CDT Virtual Visit [facility] [address] 3rd [place] [address] Rosalba Pendleton, MAXIMILIANO AIR DRIER [address] [facility] [id number] [place] [address] 01/20/2024 8:00 PM CDT Therapy Visit [address] [phone] 01/26/2024 12:50 PM CDT Therapy Visit [facility] [address] [facility] 300 [place] [address] [place] [address] [place], [place] 830437 02/09/2024 12:50 PM CDT Therapy Visit [facility] [address] [facility] 300 [place] [address] [place] [address] [place], [place] 576577 03/14/2024 10:30 AM CDT Office Visit [address] [phone] Abhishek Acevedo PA-C [address] [address] 03/21/2024 11:30 AM CDT Office Visit [facility] [address] [address] Zain Quintana MD [address] [place] [address] 792055 03/21/2024 2:30 PM CDT Virtual Visit [facility] [address] [address] Latricia Pettit PA-C [address] [place] [address] 945845 06/07/2024 11:20 AM CDT Office Visit [facility] [address] 4th [place] [phone] Latricia Pettit PA-C [address] [place] [address] 093965 Abby Vasquez MD [address] [place] [address] 720075 documented as of this encounter Visit Diagnoses Not on filedocumented in this encounter Additional Health Concerns Infection Onset Date Last Indicated Resolved Time Rule Out COVID-19 04/03/2023 04/03/2023 04/04/2023 6:30 PM CDT documented as of this encounter Care Teams Youth Accommodation Support Worker Relationship Specialty Start Date End Date Alfonso Tang PCP - General Family Practice 09/04/13 08/12/21 Monty Musa MD [facility] [address] [place] [address] PCP - General Family Medicine 08/13/21 Alfonso Tang Family Practice 08/13/21 Dayanara Bee MD [address] [address] Pediatrics 12/26/14 Min Lange MD [address] [address] Neurology 03/30/16 Marlo Madsen MD [address] [address] Cardiology 10/27/16 Mel Buckley, RN Nurse Coordinator Physical Medicine and Rehabilitation 12/02/16 Douglas Cadet MD 500 [place] [address] Gastroenterology 08/13/21 Rosalba Pendleton APRN AIR DRIER [address] [place] [address] Nurse Practitioner Neurology 09/05/21 Rosalba Pendleton APRN AIR DRIER [address] [place] [address] 34514 Assigned Neuroscience Provider 11/09/21 Douglas Cadet MD 500 [place] [address] Assigned Gastroenterology Provider 03/14/22 09/03/23 Marlo Madsen MD [address] [place] [address] 75 [place] [address] Assigned Heart and Vascular Provider 03/14/22 Abby Vasquez MD [address] [place] [address] Gastroenterology 07/16/22 Abby Vasquez MD [address] [place] [address] Assigned PCP 09/26/22 10/06/23 Airam Hodges PA-C 500 [place] [address] Physician Call Center Operator Surgery 07/19/23 Zain Quintana MD [address] [place] [address] Assigned Surgical Provider 10/07/23 Latricia Pettit PA-C [address] [place] [address] Assigned Gastroenterology Provider 10/15/23 documented as of this encounter
== END 2023-12-27 14:19 | disposition home or self-care (01) ==
PROVIDERS: PCP Family Medicine; Visit Provider Family Medicine
DX: E03.9 Hypothyroidism, unspecified (principal); R79.89 Other specified abnormal findings of blood chemistry; R21 Rash and other nonspecific skin eruption
CPT/HCPCS: 84439; 84480; 86039

== ENCOUNTER 2024-04-20 11:23 | Outpatient (CLI) | payer MEDICARE, OTHER, SELFPAY ==
--- OUTSIDE RECORDS SUMMARY | 2024-04-22 13:06 | XMS_ITS | Clinical Summary ---
Author Organization [facility] Address [place], [place] [address] Care Team Providers Care Reliability Technologist Name Role Phone Pcp, No Primary Care Provider Adelso Ramos MD Unavailable [phone] Allergies Active Allergy Reactions Criticality Noted Date [...] HPV THIN PREP Routine 08/20/2023 12:00 PM CLOTH ROLL WINDER from Last 3 Months or Most Recently Relevant to Health Maintenance Results * (ABNORMAL) HPV HIGH RISK (08/20/2023 12:00 PM [facility]ER) TYPE 16 Negative Negative 08/26/2023 11:15 AM [facility] TYPE 18 Negative Negative 08/26/2023 11:15 AM [facility] RO[facility] WINDER [facility] OTHER HIGH RISK TYPES Positive(A) Negative 08/26/2023 11:15 AM [facility] W[facility]ER [facility] Other (Cervical) 08/20/2023 12:00 PM [facility] RO[facility] WINDER 08/24/2023 11:43 AM [facility] WINDER Narrative [facility] - 08/26/2023 11:15 AM [facility] RO[facility] WINDER Specimen is positive for the DNA of any one of, or combination of, the following high risk HPV types: 31, 33, 35, 39, 45, 51, 52, 56, 58, 59, 66, 68. HPV types 16 and 18 DNA were undetectable or below the pre-set threshold. ? Methodology: Sharon Vahid 4800 HPV Test Doctor Unknown MICROBIOLOGY [facility] [address] [place] [id number], from Last 3 Months or Most Recently Relevant to Health Maintenance Care Teams Reliability Technologist Relationship Specialty Start Date End Date Pcp, No . PCP - General 10/11/22 Adelso Lara MD 2024 [place] [address] 10/11/22
--- OUTSIDE RECORDS SUMMARY | 2024-04-22 13:06 | XMS_ITS | Clinical Summary ---
Author Organization [place] Address [address] [place] [address] Care Team Providers Care Embedded Software Development Engineer Name Role Phone Monty Musa MD Primary Care Provider Alfonso Tang Unavailable Unavailable Dayanara Bee MD Unavailable [phone] Min Lange MD Unavailable Unavailable Marlo Madsen MD Unavailable [phone] Mel Buckley RN Unavailable [phone] Douglas Cadet MD Unavailable Rosalba Pendleton APRN HORSE RACE STARTER Unavaila ble Rosalba Pendleton APRN HORSE RACE STARTER Unavaila ble Marlo Madsen MD Unavailable [phone] Abby Vasquez MD Unavailable Airam Hodges PA-C Unavailable [phone] Zain Quintana MD Unavailable [phone] Latricia Pettit PA-C Unavailable [phone] Allergies Active Allergy Reactions Criticality Noted Date Comments Amoxicillin 10/25/2023 Other Reaction(s): High B/P, diarrhea Amoxicillin-Pot Clavulanate GI Disturbance Medium 10/21/2016 Clavulanic Acid 10/25/2023 Other Reaction(s): High B/P, diarrhea Hydrocodone Nausea and Vomiting 10/25/2023 Hydrocodone-Acetaminoph en Unknown 01/14/2022 Medications Medication Sig Dispensed Refills Start Date End Date Status order for DMEIndications:Dy sautonomia (H),Heat intolerance Equipment being ordered: Micro climate cooling vest 1 kit 0 5 Active hydrOXYzine (ATARAX) 50 MG tablet Take 50 mg by mouth daily 2 Active clonazePAM (KLONOPIN) 0.5 MG tablet Take 0.5 mg by mouth daily 1 Active DULoxetine (CYMBALTA) 30 MG capsule Take 30 mg by mouth 2 times daily 2 Active ondansetron (ZOFRAN ODT) 4 MG ODT tab Take 1 tablet by mouth every 8 hours as needed 1 Active fludrocortisone (FLORINEF) 0.1 MG tabletIndications :Vasovagal syncope Take 2 tablets (0.2 mg) by mouth daily 180 tablet 3 3 Active levothyroxine (SYNTHROID/LEVOTH ROID) 25 MCG tablet Take 25 mcg by mouth daily Active atorvastatin (LIPITOR) 10 MG tablet Take 10 mg by mouth every evening 4 Active plecanatide (TRULANCE) 3 MG tabletIndications :Irritable bowel syndrome with constipation,Esl Instructional Assistant rianna idiopathic constipation Take 1 tablet (3 mg) by mouth daily 90 tablet 3 4 Active erenumab-aooe (AIMOVIG) 140 MG/ML injectionIndicati ons:Intractable 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 Inject 1 mL (140 mg) Subcutaneous every 30 days 1 mL 11 4 Active prochlorperazine (COMPAZINE) 5 MG tabletIndications :Intractable 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 Take 1-2 tablets (5-10 mg) by mouth every 6 hours as needed for nausea or vomiting 20 tablet 3 4 Active ZOLMitriptan (ZOMIG-ZMT) 5 MG ODTIndications:Mi graine without aura and without status migrainosus, not intractable Take 1 tablet (5 mg) by mouth at onset of headache for migraine May repeat in 2 hours. Max 2 tablets/24 hours. 18 tablet 11 4 Active oxyBUTYnin (DITROPAN) 5 MG tablet Take 1 tablet by mouth 2 times daily 4 Active medroxyPROGESTERo ne (PROVERA) 10 MG tablet Take 1 tablet by mouth daily at 2 pm 4 Active linaclotide (LINZESS) 290 MCG capsuleIndication s:Chronic idiopathic constipation,Pelv ic floor dysfunction Take 1 capsule (290 mcg) by mouth every morning (before breakfast) for 90 days 90 capsule 3 4 06/19/20 24 Active midodrine (PROAMATINE) 5 MG tabletIndications :Syncope and collapse,Palpitat ions,Vasovagal syncope Take 2 tabletS BY MOUTH in the morning, and 1 tablet in the afternoon. Do not take within 4 hours lying down 270 tablet 1 4 Active midodrine (PROAMATINE) 5 MG tabletIndications :Syncope and collapse,Palpitat ions,Vasovagal syncope Take 2 tablets (10mg) in the morning, and 1 tablet (5mg) in the afternoon. Do not take within 4 hours lying down 270 tablet 1 3 04/05/20 24 Discontinued Active Problems Problem Noted Date Diagnosed Date Slow transit constipation 12/01/2023 Irritable bowel syndrome without diarrhea 2015 Syncope 01/25/2014 Intractable 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 aura 2013 Overview: Problem list name updated by automated process. 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 Abdominal pain, generalized 10/05/2013 Encounters Date Type Department Care Team Description 04/20/2024 12:26 PM CDT - 04/20/2024 4:16 PM T Emergency [facility] Emergency Dept [address] [place] [address] Eri Vasques MD Seizure-like activity (H) Discharge Disposition: Home or Self Care 04/20/2024 Travel 04/01/2024 [facility] [address] [phone] Marlo Madsen MD Medication Refill 03/27/2024 MyC Medical Advice [facility] Neurology Clinic [address] [phone] Nishi 03/27/2024 Telephone [facility]rology [facility] [address] [phone] Rosalba Pendleton APRN HORSE RACE STARTER Appointment (Follow up) 03/27/2024 Jn Medical Advice [facility] [address] [phone] Ximena Belcher 03/27/2024 Telephone [facility] Neurology [facility] [address] [phone] Rosalba Pendleton APRN CNP Clinic Care Coordination - Follow-up 03/21/2024 2:30 PM CDT Virtual Visit [facility] Gastroenterology Clinic [address] [phone] Latricia Pettit PA-C Chronic idiopathic constipation (Primary Dx); Pelvic floor dysfunction 03/21/2024 11:30 AM CDT Office Visit [facility] Colon and Rectal Surgery [facility] [address] [phone] Zain Quintana MD Constipation, unspecified constipation type (Primary Dx) 03/21/2024 Travel 03/17/2024 MyC Medical Advice [facility] Gastroenterology [facility] [address] [phone] Tereza Tsai MA 03/14/2024 10:30 AM CDT Office Visit [facility] Sleep Centers [address] [phone] Abhishek Acevedo PA-C Delayed sleep phase syndrome (Primary Dx); Abnormal EEG 03/13/2024 10:10 AM CDT Therapy Visit [facility] [address] [place] [address] Lainey Simon, PT Slow transit constipation (Primary Dx) 03/13/2024 Travel 02/21/2024 10:10 AM CDT Therapy Visit [facility] [address] [place] [address] Lainey Simon, PT Slow transit constipation (Primary Dx) 02/21/2024 Travel 02/15/[address] [phone] Marlo Madsen MD 02/11/[address] [phone] Marlo Madsen MD 01/26/2024 12:50 PM CDT Therapy Visit [facility] [address] [place] [address] Lainey Simon, PT Slow transit constipation (Primary Dx) 01/26/2024 Travel from Last 3 Months Immunizations Name [...] PHQ-2 Answer Date Recorded PHQ-2 Score 1 03/21/2024 Adolescent Education Answer Date Record ed Getting School Help Needed Not on file 06/04 Sex and Gender Information Value Date Recorded Sex Assigned at Female 10/31/2021 7:59 AM CREDIT REPORT CHECKER Gender Identity Female 10/31/2021 7:59 AM CREDIT REPORT CHECKER Sexual Orientation Straight 10/31/2021 7: 59 AM CREDIT REPORT CHECKER Last Filed Vital Signs Vital Sign Reading Time Taken Comments Blood Pressure 122/93 04/20/2024 3:30 PM CDT Pulse 73 04/20/2024 3:30 PM CDT Temperature 37.3 ??C (99.1 ??F) 04/20/2024 12:36 PM C DT Respiratory Rate 18 04/20/2024 3:30 PM CDT Oxygen Saturation 96% 04/20/2024 3:30 PM CDT Inhaled Oxygen Concentration - - Weight 79.4 kg (175 lb) 04/20/2024 12:39 PM CDT Height 167.6 cm (5' 6) 04/20/2024 12:39 PM CDT Body Mass Index 28.25 04/20/2024 12:39 PM CDT Plan of Treatment Upcoming Encounters Date Type Department Care Team (Latest Contact Info) Description 04/25/2024 1:50 PM CDT Therapy Visit [address] [place] [address] [place] [address] [place] [address] 05/08/2024 PRE VISIT [facility] Neurology Clinic [address] [phone] Torri Francois MD [address] [place] [phone] *-*INCOMING RECORDS*-* 05/08/2024 11:30 AM CDT Ancillary Procedure [facility] EEG [facility] [address] [phone] 05/08/2024 2:45 PM CDT Office Visit [facility] Neurology [address] [phone] Abhishek Acevedo PA-C [address] [phone] Torri Francois MD [address] [place] [address] [phone] 06/07/2024 11:20 AM CDT Office Visit [facility] Gastroenterology Clinic [address] [phone] Latricia Pettit PA-C [address] [place] [phone] bAby Vasquez MD [address] [place] [phone] 07/06/2024 3:30 PM CDT Virtual Visit [facility] Heart Clinic [address] [phone] Marlo Madsen MD [address] [place] [address] 10/03/2024 3:15 PM CREDIT REPORT CHECKER Virtual Visit [facility] Gastroenterology Clinic [address] 4th [place] [phone] Latricia Pettit PA-C [address] [place] [phone] 10/10/2024 8:30 AM CREDIT REPORT CHECKER Office Visit [facility] Sleep [facility] [place] [address] [facility] [address] [place] [phone] Abhishek Acevedo PA-C [address] [facility] [address] [place], [place] [phone] 01/11/2025 9:00 AM CDT Virtual Visit [facility] Neurology Clinic [address] 3rd [place] [phone] Rosalba Pendleton, SHAKE CUTTER HORSE RACE STARTER [address] [place] [address] [id number] [place], [place] [phone] Health Maintenance Due Date Last Done Comments [...] 03/24/2023 03/24/2013, 11/16/2003, 11/16/2003, Additional history exists INFLUENZA VACCINE (#1) 2024 3, 06/06/2022, 06/04/2021, Additional history exists PAP 08/20/2026 08/20/2023, 12/0 04/2023, 11/24/2021, Additional history exists COLONOSCOPY 10/16/2026 10/16/2021, 11/2021, 12/10/2016, Additional history exists COLORECTAL CANCER SCREENING 10/16/2026 IPV IMMUNIZATION Completed 03/31/1996, , 1991, Additional history exists HEPATITIS B IMMUNIZATION Completed 004, 05/15/2004, 12/18/2003, Additional history exists HPV IMMUNIZATION Completed 02/02/2011, 03/2011, 06/09/2007 COVID-19 Vaccine Completed 06/18/2023, 05/2022, 10/31/2021, Additional history exists PHQ-2 (once per calendar year) Completed 03/21/2024, 01/13/2024, 10/26/2023, Additional history exists MENINGITIS IMMUNIZATION Aged Out [...] Name Priority Date/Time Associated Diagnosis Comments CT HEAD W/O CONTRAST STAT 04/20/2024 2:42 PM CDT CBC WITH PLATELETS & DIFFERENTIAL STAT 04/20/2024 12:50 PM CDT EXTRA RED TOP TUBE STAT 04/20/2024 12 :50 PM CDT EXTRA BLUE TOP TUBE STAT 04/20/2024 1 2:50 PM CDT CBC WITH PLATELETS AND DIFFERENTIAL STAT 04/20/2024 12:50 PM CDT EXTRA TUBE STAT 04/20/2024 12:50 PM CDT BASIC METABOLIC PANEL STAT 04/20/2024 12:50 PM CDT EKG 12-LEAD, TRACING ONLY STAT 04/20/2024 12:39 PM CDT TSH Routine 03/04/2022 12:35 PM CDT Irritable bowel syndrome with constipation COLONOSCOPY - HIM SCAN 10/16/2021 12:00 AM CREDIT REPORT CHECKER ABSTRACT PAP (HIM EXTERNAL RESULT) Routine 03/13/2015 from Last 3 Months or Most Recently Relevant to Health Maintenance Results * Head CT w/o contrast (04/20/2024 2:42 PM CDT) Anatomical Region Laterality Modality Head, SUBRAD CT NEURO, SUBRA D CT NEURO, UMP CT NEURO, RAD CT Computed Tomography Impressions 04/20/2024 3:04 PM CDT IMPRESSION: No acute intracranial abnormality. CLIFFORD BROOKS MD SYSTEM ID: [id number] Narrative 04/20/2024 3:[address] SCAN OF THE HEAD WITHOUT CONTRAST ?? 04/20/2024 2:42 PM HISTORY: Headache; Chronic GARNER (>= 3 months), no complicating feature. TECHNIQUE: Axial images of the head and coronal reformations without IV contrast material. Radiation dose for this scan was reduced using automated exposure control, adjustment of the mA and/or kV according to patient size, or iterative reconstruction technique. COMPARISON: Head MRI 01/22/2015. FINDINGS: No evidence of intracranial hemorrhage, mass, or hydrocephalus. The parenchyma is within normal limits. No acute osseous abnormality. Procedure Note Clifford Brooks MD - 04/20/2024 CT SCAN OF THE HEAD WITHOUT CONTRAST 04/20/2024 2:42 PM HISTORY: Headache; Chronic GARNER (>= 3 months), no complicating feature. TECHNIQUE: Axial images of the head and coronal reformations without IV contrast material. Radiation dose for this scan was reduced using automated exposure control, adjustment of the mA and/or kV according to patient size, or iterative reconstruction technique. COMPARISON: Head MRI 01/22/2015. FINDINGS: No evidence of intracranial hemorrhage, mass, or hydrocephalus. The parenchyma is within normal limits. No acute osseous abnormality. IMPRESSION: No acute intracranial abnormality. CLIFFORD BROOKS MD SYSTEM ID: [id number] Eri Vasques MD IMG CT ORDERABLES * Extra Red Top Tube (04/20/2024 12:50 PM CDT) Hold Specimen [facility] 04/20/2024 2:04 PM CDT [facility] Blood STRUCTURE OF RIGHT UPPER LIMB / Unknown Venipuncture / Unknown 04/20/2024 12:50 PM CDT 04/20/2024 12:54 PM CDT Eri Vasques MD LAB - BLOOD ORDERABL ES LAB[facility] Care Lab [address] Lab (1st floor, no room number) [address] * Extra Blue Top Tube (04/20/2024 12:50 PM CDT) Hold Specimen [facility] 04/20/2024 2:04 PM CDT [facility] Blood STRUCTURE OF RIGHT UPPER LIMB / Unknown Venipuncture / Unknown 04/20/2024 12:50 PM CDT 04/20/2024 12:54 PM CDT Eri Vasques MD LAB - BLOOD ORDERABL ES LABORATORY [facility] Acute Care Lab [address] Lab (1st floor, no room number) [address] * (ABNORMAL) CBC with platelets and differential (04/20/2024 12:50 PM CDT) WBC Count 3.5(L) 4.0 - 11.0 10e3/uL 04/20/2024 12:56 PM CDT [facility] RBC Count 4.51 3.80 - 5.20 10e6/uL 04/20/2024 12:56 PM CDT [facility] Hemoglobin 13.4 11.7 - 15.7 g/dL 04/20/2024 12:56 PM CDT [facility] Hematocrit 39.5 35.0 - 47.0 % 04/20/2024 12:56 PM CDT [facility] MCV 88 78 - 100 fL 04/20/2024 12:56 PM CDT [facility] MCH 29.7 26.5 - 33.0 pg 04/20/2024 12:56 PM CDT [facility] MCHC 33.9 31.5 - 36.5 g/dL 04/20/2024 12:56 PM CDT [facility] RDW 13.0 10.0 - 15.0 % 04/20/2024 12:56 PM CDT [facility] Platelet Count 228 150 - 450 10e3/uL 04/20/2024 12:56 PM CDT [facility] % Neutrophils 48 % 04/20/2024 12:56 PM CDT [facility] % Lymphocytes 38 % 04/20/2024 12:56 PM CDT [facility] % Monocytes 11 % 04/20/2024 12:56 PM CDT [facility] % Eosinophils 3 % 04/20/2024 12:56 PM CDT [facility] % Basophils 1 % 04/20/2024 12:56 PM CDT [facility] % Immature Granulocytes 0 % 04/20/2024 12:56 PM CDT [facility] NRBCs per 100 WBC 0 <1 /100 024 12:56 PM CDT [facility] Absolute Neutrophils 1.6 1.6 - 8.3 10e3/uL 04/20/2024 12:56 PM CDT [facility] Absolute Lymphocytes 1.3 0.8 - 5.3 10e3/uL 04/20/2024 12:56 PM CDT [facility] Absolute Monocytes 0.4 0.0 - 1.3 10e3/uL 04/20/2024 12:56 PM CDT [facility] Absolute Eosinophils 0.1 0.0 - 0.7 10e3/uL 04/20/2024 12:56 PM CDT [facility] Absolute Basophils 0.0 0.0 - 0.2 10e3/uL 04/20/2024 12:56 PM CDT [facility] Absolute Immature Granulocytes 0.0 <=0.4 10e3/uL 04/20/2024 12:56 PM CDT [facility] Absolute NRBCs 0.0 10e3/uL 04/20/2024 12:56 PM CDT [facility] Blood STRUCTURE OF RIGHT UPPER LIMB / Unknown Venipuncture / Unknown 04/20/2024 12:50 PM CDT 04/20/2024 12:54 PM CDT Eri Vasques MD LAB - BLOOD ORDERABL ES [facility] Acute Care Lab [address] Lab (1st floor, no room number) [place] [address], [facility] * (ABNORMAL) Basic metabolic panel (BMP) (04/20/2024 12:50 PM CDT) [facility] Sodium 141 135 - 145 mmol/L 04/20/2024 1:18 PM CDT LABORATORY Potassium 4.2 3.4 - 5.3 mmol/L 04/20/2024 1:18 PM CDT LABORATORY Chloride 105 98 - 107 mmol/L 04/20/2024 1:18 PM CDT LABORATORY Carbon Dioxide (CO2) 24 22 - 29 mmol/L 04/20/2024 1:18 PM CDT LABORATORY Anion Gap 12 7 - 15 mmol/L 04/20/2024 1:18 PM CDT [facility] Urea Nitrogen 7.7 6.0 - 20.0 mg/dL 04/20/2024 1:18 PM CDT LABORATORY Creatinine 0.67 0.51 - 0.95 mg/dL 04/20/2024 1:18 PM CDT [facility] GFR Estimate >90 >60 mL/min/1.7 3m2 04/20/2024 1:18 PM CDT [facility] Comment:eGFR calculated usin 2020 CKD-EPI equation. Calcium 9.2 8.8 - 10.4 mg/dL 04/20/2024 1:18 PM CDT [facility] Comment:Reference intervals for this test were updated on 03/28/2024 to reflect our healthy population more accurately. There may be differences in the flagging of prior results with similar values performed with this method. Those prior results can be interpreted in the context of the updated reference intervals. Glucose 108(H) 70 - 99 mg/dL 04/20/2024 1:18 PM CDT [facility] Blood STRUCTURE OF RIGHT UPPER LIMB / Unknown Venipuncture / Unknown 04/20/2024 12:50 PM CDT 04/20/2024 12:54 PM CDT Eri Vasques MD LAB - BLOOD ORDERABL ES [facility] Acute Care Lab [address] Lab (1st floor, no room number) [place] [address], [facility] * EKG 12 lead (04/20/2024 12:39 PM CDT) Systolic Blood Pressure mmHg RADIOLOGY RESULTS Diastolic Blood Pressure mmHg RADIOLOGY RESULTS Ventricular Rate 65 BPM RAD IOLOGY RESULTS Atrial Rate 65 BPM RADIOLOG Y RESULTS DC Interval 146 ms RADIOLOG Y RESULTS QRS Duration 104 ms RADIOLO GY RESULTS QT 418 ms RADIOLOGY RESULTS QTc 434 ms RADIOLOGY RESULTS P [place] 45 degrees RADIOLOGY RESULTS R AXIS 43 degrees RADIOLOGY RESULTS T [place] 36 degrees RADIOLOGY RESULTS Interpretation ECG Sinus rhythm Normal ECG When compared with ECG of 03-Mar-2022 09:55, No significant change was found Unconfirmed report - interpretation of this ECG is computer generated - see medical record for final interpretation Confirmed by - EMERGENCY ROOM, PHYSICIAN ([id number]), loan expeditor ROLY PAIZ ([id number]) on 04/20/2024 2:17:32 PM RADIOLOGY RESULTS 04/20/2024 12:3 9 PM CDT 04/20/2024 2:17 PM CDT Eri Vasques MD ECG ORDERABLES Performing Organization Address City/[facility]/ZIP Co de Phone Number RADIOLOGY RESULTS * TSH (03/04/2022 12:35 PM CDT) TSH 0.65 0.40 - 4.00 mU/L 03/04/2022 1:08 PM CDT [facility] Blood STRUCTURE OF RIGHT UPPER LIMB / Unknown Venipuncture / Unknown 03/04/2022 12:35 PM CDT 03/04/2022 12:37 PM CDT Douglas Cadet MD LAB - BLOOD O RDERABLES [facility] [address] 1st [place] [address] * COLONOSCOPY - HIM SCAN (10/16/2021 12:00 AM CREDIT REPORT CHECKER) 10/16/2021 Provider Outside PROCEDURES * ABSTRACT PAP-NO CHARGE (03/13/2015) 03/13/2015 Narrative EXTERNAL LAB - 03/13/2015 ----- Message ----- From: Arina Posey LPN Sent: 03/21/2015 10:17 AM Subject: Last pap smear: 03/13/15 Patient Reported LAB - HIM EXTERNAL R ESULT EXTERNAL LAB External Lab from Last 3 Months or Most Recently Relevant to Health Maintenance Care Teams Embedded Software Development Engineer Relationship Specialty Start Date End Date Monty Musa MD PCP - General Family Medicine 08/13/21 Alfonso Tang Family Practice 08/13/21 Dayanara Bee MD [address] [place] [address] Pediatrics 12/26/14 Min Lange MD [address] [place] [address] Neurology 03/30/16 Marlo Madsen MD [address] [place] [address] [phone] Cardiology 10/27/16 Mel Buckley, DIAZ Nurse Coordinator Physical Medicine and Rehabilitation 12/02/16 Douglas Cadet MD [address] [place] [address] Gastroenterology 08/13/21 Rosalba Pendleton APRN HORSE RACE STARTER [address] [place] [address] [phone] Nurse Practitioner Neurology 09/05/21 Rosalba Pendleton APRN HORSE RACE STARTER [address] [place] [address] [phone] Assigned Neuroscience Provider 11/09/21 Marlo Madsen MD [address] [place] [address] [phone] Assigned Heart and Vascular Provider 03/14/22 Abby Vasquez MD [address] [place] [address] Gastroenterology 07/16/22 Airam Hodges PA-C [address] [place] [address] Physician Sanitation Worker Cleaning Equipment Surgery 07/19/23 Zain Quintana MD [address] [place], [place] [phone] Assigned Surgical Provider 10/07/23 Latricia Pettit PA-C [address] [place] [address] Assigned Gastroenterology Provider 10/15/23
--- OUTSIDE RECORDS SUMMARY | 2024-04-22 13:07 | XMS_ITS | Referral Summary ---
Author Organization [place] Address [facility]0 [facility] [place] [address] Care Team Providers Care Retail Department Reset Name Role Phone Monty Musa MD Primary Care Provider Alfonso Tang Unavailable Unavailable Dayanara Bee MD Unavailable [phone] Min Lange MD Unavailable Unavailable Marlo Madsen MD Unavailable [phone] Mel Buckley RN Unavailable [phone] Douglas Cadet MD Unavailable Rosalba Pendleton APRN NETWORK SPECIALIST Unavaila ble Rosalba Pendleton APRN NETWORK SPECIALIST Unavaila ble Marlo Madsen MD Unavailable [phone] Abby Vasquez MD Unavailable Airam Hodges PA-C Unavailable [phone] Zain Quintana MD Unavailable [phone] Latricia Pettit PA-C Unavailable [phone] Encounters Date Type Department Care Team Description 04/20/2024 Travel 04/20/2024 12:26 PM CDT - 04/20/2024 4:[address] [facility] Emergency Dept [address] [place] [address] [phone] Eri Vasques MD Seizure-like activity (H) Discharge Disposition: Home or Self Care 04/01/2024 Refill [facility] Heart [address] [phone] Marlo Madsen MD Medication Refill 03/27/2024 MyC Medical Advice [facility] Neurology [facility] [address] [phone] Field Nishi 03/27/2024 Telephone [facility] Neurology [address] [phone] Rosalba Pendleton APRN CNP Appointment (Follow up) 03/27/2024 MyC Medical Advice [facility] [address] [phone] Ximena Belcher 03/27/2024 Telephone [facility] Neurology [address] [phone] Rosalba Pendleton APRN CNP Clinic Care Coordination - Follow-up 03/21/2024 Travel 03/21/2024 2:30 PM CDT Virtual Visit [facility] Gastroenterology [facility] [address] [phone] Latricia Pettit PA-C Chronic idiopathic constipation (Primary Dx); Pelvic floor dysfunction 03/21/2024 11:30 AM CDT Office Visit [facility] [address] [phone] Zain Quintana MD Constipation, unspecified constipation type (Primary Dx) 03/17/2024 MyC Medical Advice [facility] [address] [phone] Tereza Tsai MA 03/14/2024 10:30 AM CDT Office Visit [facility] Sleep [address] [place] [phone] Abhishek Acevedo PA-C Delayed sleep phase syndrome (Primary Dx); Abnormal EEG 03/13/2024 Travel 03/13/2024 10:10 AM CDT Therapy Visit [address] [place] [address] Wild, Lainey, PT Slow transit constipation (Primary Dx) 02/21/2024 Travel 02/21/2024 10:10 AM CDT Therapy Visit [address] [address] Wild, Lainey, PT Slow transit constipation (Primary Dx) 02/15/[address] [phone] Marlo Madsen MD 02/11/[address] [phone] Marlo Madsen MD 01/26/2024 Travel 01/26/2024 12:50 PM CDT Therapy Visit [address] [address] Wild, Lainey, PT Slow transit constipation (Primary Dx) from Last 3 Months Allergies Active Allergy [...] Micro climate cooling vest 1 kit 0 07/22/201 5 Active hydrOXYzine (ATARAX) 50 MG tablet [...] 3 MG tabletIndications :Irritable bowel syndrome with constipation,Sorter Packer rianna idiopathic constipation Take 1 tablet (3 [...] Sex Assigned at Female 10/31/2021 7:59 AM GREENSKEEPER HEAD Gender Identity Female 10/31/2021 7:59 AM GREENSKEEPER HEAD Sexual Orientation Straight 10/31/2021 7: 59 AM GREENSKEEPER HEAD Last Filed Vital Signs Vital Sign Reading [...] Description 04/25/2024 1:50 PM CDT Therapy Visit [facility] [address] [place] [address] [place] [address] [place], [place] [phone] 05/08/2024 PRE VISIT [facility] Neurology Clinic [address] 3rd [place] [address] Torri Francois MD [address] [place] [address] [phone] *-*INCOMING RECORDS*-* 05/08/2024 11:30 AM CDT Ancillary Procedure [facility] [address] [phone] 05/08/2024 2:45 PM CDT Office Visit [facility] Neurology [facility] [address] [phone] Abhishek Acevedo PA-C [address] [address] Torri Francois MD [address] [place] [address] [phone] 06/07/2024 11:20 AM CDT Office Visit [facility] Gastroenterology [facility] [address] [phone] Latricia Pettit PA-C [address] [place] [address] [phone] Abby Vasquez MD [address] [place] [address] [phone] 07/06/2024 3:30 PM CDT Virtual Visit [facility] Heart [facility] [address] [phone] Marlo Madsen MD [address] [place] [address] [phone] 10/03/2024 3:15 PM GREENSKEEPER HEAD Virtual Visit [facility]enterology [facility] [address] [phone] Latricia Pettit PA-C [address] [place] [address] [phone] 10/10/2024 8:30 AM GREENSKEEPER HEAD Office Visit [facility] Michelle [address] [facility] [address] [place] [phone] Abhishek Acevedo PA-C [address] [facility] [address] [place] [place] [address] 01/11/2025 9:00 AM CDT Virtual Visit [facility] Neurology Clinic [place] [phone] [facility] [address] [place] [phone] Rosalba Pendleton, PROGRAM OFFICER NETWORK SPECIALIST [address] [facility] [id number] [place] [address] Procedures Procedure Name Priority Date/Time Associated Diagnosis [...] COLONOSCOPY - HIM SCAN 10/16/2021 12:00 AM GREENSKEEPER HEAD ABSTRACT PAP (HIM EXTERNAL RESULT) Routine 03/13/2015 from Last 3 Months or Most Recently Relevant to Health Maintenance Results * Head CT w/o contrast (04/20/2024 2:42 PM CDT) Anatomical Region Laterality Modality Head, SUBRAD CT NEURO, SUBRA D CT NEURO, UMP CT NEURO, RAD CT Computed Tomography Impressions 04/20/2024 3:04 PM CDT IMPRESSION: No acute intracranial abnormality. CLIFFORD BROOKS MD SYSTEM ID: [id number] Narrative 04/20/2024 3:[address] SCAN [...] intracranial abnormality. CLIFFORD BROOKS MD SYSTEM ID: [id number] Eri Vasques MD IM CT ORDERABLES * Extra Red Top Tube (04/20/2024 12:50 PM CDT) Hold Specimen [facility] 04/20/2024 2:04 PM CDT LABORATORY Blood STRUCTURE OF RIGHT UPPER LIMB / Unknown Venipuncture / Unknown 04/20/2024 12:50 PM CDT 04/20/2024 12:54 PM CDT Eri Vasques MD LAB - BLOOD ORDERABL ES [facility] [address] Lab (1st floor, no room number) [address] * Extra Blue Top Tube (04/20/2024 12:50 PM CDT) Hold Specimen [facility] 04/20/2024 2:04 PM CDT RH LABORATORY Blood STRUCTURE OF RIGHT UPPER LIMB / Unknown Venipuncture / Unknown 04/20/2024 12:50 PM CDT 04/20/2024 12:54 PM CDT Eri Vasques MD LAB - BLOOD ORDERABL ES Performing Organization Address [facility]/ZIP Co de Phone Number [facility] [address] Lab (1st floor, no room number) [address] * (ABNORMAL) CBC with platelets and [...] LAB - BLOOD ORDERABL ES RH LABORATORY [facility] [address] Lab (1st floor, no room number) [place] [address], [facility] * (ABNORMAL) Basic metabolic panel (BMP) (04/20/2024 12:50 PM CDT) Sodium 141 135 - 145 mmol/L 04/20/2024 [...] - 0.95 mg/dL 04/20/2024 1:18 PM CDT LABORATORY GFR Estimate >90 >60 mL/min/1.7 3m2 04/20/2024 1:18 PM CDT LABORATORY Comment:eGFR calculated us2020 CKD-EPI equation. Calcium 9.2 8.8 - 10.4 [...] - 99 mg/dL 04/20/2024 1:18 PM CDT LABORATORY Blood STRUCTURE OF RIGHT UPPER LIMB / Unknown Venipuncture / Unknown 04/20/2024 12:50 PM CDT 04/20/2024 12:54 PM CDT Eri Vasques MD LAB - BLOOD ORDERABL ES LABORATORY [facility] [address] Lab (1st floor, no room number) [place] [address], [facility] * EKG 12 lead (04/20/2024 12:39 PM CDT) Systolic Blood Pressure mmHg RADIOLOGY RESULTS Diastolic Blood Pressure mmHg RADIOLOGY RESULTS Ventricular Rate 65 BPM RAD IOLOGY RESULTS Atrial Rate 65 BPM RADIOLOG Y RESULTS IL Interval 146 ms RADIOLOG Y RESULTS QRS Duration 104 ms RADIOLO GY RESULTS QT 418 ms RADIOLOGY RESULTS QTc 434 ms RADIOLOGY RESULTS P [place] 45 degrees RADIOLOGY RESULTS R AXIS 43 degrees RADIOLOGY RESULTS T [place] 36 degrees RADIOLOGY RESULTS Interpretation ECG Sinus rhythm Normal ECG When compared with ECG of 03-Mar-2022 09:55, No significant change was found Unconfirmed report - interpretation of this ECG is computer generated - see medical record for final interpretation Confirmed by - EMERGENCY ROOM, PHYSICIAN ([id number]), society editor ROLY PAIZ ([id number]) on 04/20/2024 2:17:32 PM RADIOLOGY RESULTS 04/20/2024 12:3 9 PM CDT 04/20/2024 2:17 PM CDT Eri Vasques MD ECG ORDERABLES RADIOLOGY RESULTS * TSH (03/04/2022 12:35 PM CDT) TSH 0.65 0.40 - 4.00 mU/L 03/04/2022 1:08 PM CDT [facility] LABORATORY - CORE LAB Blood STRUCTURE OF RIGHT UPPER LIMB / Unknown Venipuncture / Unknown 03/04/2022 12:35 PM CDT 03/04/2022 12:37 PM CDT Douglas Cadet MD LAB - BLOOD O RDERABLES [facility] LABORATORY - CORE LAB [address] 1st [place] [address] * COLONOSCOPY - HIM SCAN (10/16/2021 12:00 AM GREENSKEEPER HEAD) 10/16/2021 Provider Outside PROCEDURES * ABSTRACT PAP-NO CHARGE (03/13/2015) 03/13/2015 Narrative EXTERNAL LAB - 03/13/2015 ----- Message ----- From: Arina Posey LPN Sent: 03/21/2015 10:17 AM Subject: Last pap smear: 03/13/15 Patient Reported LAB - HIM EXTERNAL R ESULT EXTERNAL LAB External Lab from Last 3 Months or Most Recently Relevant to Health Maintenance Care Teams Retail Department Reset Relationship Specialty Start Date End Date Monty Musa MD PCP - General Family Medicine 08/13/21 Alfonso Tang [facility] 08/13/21 Dayanara Bee MD [address] [place] [address] [address] [place] [address] Pediatrics 12/26/14 Min Lange MD [address] [address] Neurology 03/30/16 Marlo Madsen MD [address] [place] [address] Cardiology 10/27/16 Mel Buckley, RN Nurse Coordinator Physical Medicine and Rehabilitation 12/02/16 Douglas Cadet MD [address] [place] [address] [phone] Gastroenterology 08/13/21 Rosalba Pendleton APRN NETWORK SPECIALIST [address] [place] [address] [phone] Nurse Practitioner Neurology 09/05/21 Rosalba Pendleton APRN NETWORK SPECIALIST [address] [place] [address] [phone] Assigned Neuroscience Provider 11/09/21 Marlo Madsen MD [address] [place] [address] [phone] Assigned Heart and Vascular Provider 03/14/22 Abby Vasquez MD [address] [place] [address] Gastroenterology 07/16/22 Airam Hodges PA-C [address] [place] [address] Physician Film Composer Surgery 07/19/23 Zain Quintana MD [address] [place] [address] Assigned Surgical Provider 10/07/23 Latricia Pettit PA-C [address] [place] [address] Assigned Gastroenterology Provider 10/15/23
--- OUTSIDE RECORDS SUMMARY | 2024-04-22 13:07 | XMS_ITS | Encounter Summary ---
Author Organization [place] Address [facility] [place] [address] Care Team Providers Care Director Radiation Oncology Name Role Phone Monty Musa MD Primary Care Provider Alfonso Tang Unavailable Unavailable Dayanara Bee MD Unavailable [phone] Min Lange MD Unavailable Unavailable Marlo Madsen MD Unavailable [phone] Mel Buckley RN Unavailable [phone] Douglas Cadet MD Unavailable Rosalba Pendleton APRN PHOTOGRAPHIC TECHNICIAN Unavaila ble Rosalba Pendleton APRN PHOTOGRAPHIC TECHNICIAN Unavaila ble Marlo Madsen MD Unavailable [phone] Abby Vasquez MD Unavailable Airam Hodges PA-C Unavailable [phone] Zain Quintana MD Unavailable [phone] Latricia Pettit PA-C Unavailable [phone] Reason for Visit * Reason Comments Seizures Encounter Details Date Type Department Care Team ([facility] Contact Info) Description 04/20/2024 12:26 PM CDT - 04/20/2024 4:16 PM CDT Emergency [facility] Emergency Dept [address] [place] [address] Eri Vasques MD [facility] [address] [place] [address] Seizure-like activity (H) Discharge Disposition: Home or Self Care Social [...] Sex Assigned at Female 10/31/2021 7:59 AM COMPUTING SYSTEMS MECHANIC Gender Identity Female 10/31/2021 7:59 AM COMPUTING SYSTEMS MECHANIC Sexual Orientation Straight 10/31/2021 7: 59 AM COMPUTING SYSTEMS MECHANIC documented as of this encounter Last [...] Mass Index 28.25 04/20/2024 12:39 PM CDT documented in this encounter Discharge Instructions * Discharge Instructions* Eri Vasques MD - 04/20/2024 3:39 PM CDT Please call your neurologist and follow-up with them. Please do not drive, swim, climb ladders or do anything dangerous. I discussed with the neurologist on-call who recommended holding off on any medication at this time and follow-up with neurology as previously scheduled * Attachments The following attachments cannot be sent through Care Everywhere. * Seizure ([place]) documented in this encounter Medications at Time of Discharge Medication Sig Dispensed Refills Start Date End Date atorvastatin (LIPITOR) 10 MG tablet Take 10 mg by mouth every evening 10/29/2023 clonazePAM (KLONOPIN) 0.5 MG tablet Take 0.5 mg by mouth daily 08/12/2021 DULoxetine (CYMBALTA) 30 MG capsule Take 30 mg by mouth 2 times daily 02/02/2022 erenumab-aooe (AIMOVIG) 140 MG/ML injectionIndications: Intractable 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 Inject 1 mL (140 mg) Subcutaneous every 30 days 1 mL 11 01/13/2024 fludrocortisone (FLORINEF) 0.1 MG tabletIndications:Vas ovagal syncope Take 2 tablets (0.2 mg) by mouth daily 180 tablet 3 06/22/2023 hydrOXYzine (ATARAX) 50 MG tablet Take 50 mg by mouth daily 01/07/2022 levothyroxine (SYNTHROID/LEVOTHROID ) 25 MCG tablet Take 25 mcg by mouth daily linaclotide (LINZESS) 290 MCG capsuleIndications:Ch ronic idiopathic constipation,Pelvic floor dysfunction Take 1 capsule (290 mcg) by mouth every morning (before breakfast) for 90 days 90 capsule 3 03/21/2024 06/19/2024 medroxyPROGESTERone (PROVERA) 10 MG tablet Take 1 tablet by mouth daily at 2 pm 09/27/2023 midodrine (PROAMATINE) 5 MG tabletIndications:Syn cope and collapse,Palpitations ,Vasovagal syncope Take 2 tabletS BY MOUTH in the morning, and 1 tablet in the afternoon. Do not take within 4 hours lying down 270 tablet 1 04/05/2024 ondansetron (ZOFRAN ODT) 4 MG ODT tab Take 1 tablet by mouth every 8 hours as needed 08/12/2021 order for DMEIndications:Dysaut onomia (H),Heat intolerance Equipment being ordered: Micro climate cooling vest 1 kit 0 04/03/2015 oxyBUTYnin (DITROPAN) 5 MG tablet Take 1 tablet by mouth 2 times daily 12/27/2023 plecanatide (TRULANCE) 3 MG tabletIndications:Irr itable bowel syndrome with constipation,Chronic idiopathic constipation Take 1 tablet (3 mg) by mouth daily 90 tablet 3 11/24/2023 prochlorperazine (COMPAZINE) 5 MG tabletIndications:Int ractable 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 Take 1-2 tablets (5-10 mg) by mouth every 6 hours as needed for nausea or vomiting 20 tablet 3 01/13/2024 ZOLMitriptan (ZOMIG-ZMT) 5 MG ODTIndications:Migrai ne without aura and without status migrainosus, not intractable Take 1 tablet (5 mg) by mouth at onset of headache for migraine May repeat in 2 hours. Max 2 tablets/24 hours. 18 tablet 11 01/13/2024 documented as of this encounter ED Notes * Deidre Mohan RN - 04/20/2024 12:31 PM CDT Pt presents vis EMS for evaluation of a possible seizure. Pt has a hx of nocturnal seizures, found while doing a sleep study a few months ago. At that time, pt was noted to have twitching movements. Today, pt had a seizure, which was a full body stiffening. Body felt tight, couldn't open eyes, but saw flashing lights. Pt was in a light sleep when symptoms started. Pt called mom after seizure. Pt went to wipe a tear away and then became stiff and rigid. Could hear, but couldn't move. Was incontinent and diaphoretic. Pt A&O when EMS arrived. Pt currently feeling weak and sore. Hx of dysautonomia. BG 122. * Latricia Valencia RN - 04/20/2024 12:26 PM CDT Bed: ED23 Expected date: Expected time: Means of arrival: Comments: [id number] * Eri Vasques MD - 04/20/2024 12:26 PM CDT Emergency Department Note History of Present Illness Chief Complaint Seizures HPI Latricia Avitia is a 34 year old female who presents via EMS with concern for seizures. Patient reports history of nocturnal seizures that were discovered during a sleep study in January and she is scheduled to see neurology and have an EEG done in the next couple of weeks. This morning around 10:50amafter waking up from a nap, patient says that she was unable to move, her body felt tight and painful, she was unable to open her eyes and was seeing flashes of light, and was hearing a humming sound but nothing else. Her alarm then jolted her up and she was able to move a finger and then her hand and turned the alarm off. She called for her mother and around 11:05am while wiping tears, she had another episode of being unable to move or see, but she was able to hear her mother speaking to her. Mother says that the episode lasted about five minutes and she called EMS. Mother denies any shaking or jerky movements of her extremities but says that her eyes were moving behind her eyelids. There was no loss of consciousness but mother says that she was out of it afterwards. No falls or trauma during the episodes. Currently, Latricia says that she feels weak and clammy and has some pain in her joints. No recurrence of vision changes or speech disturbances. She is not on any seizure medications. No recent fever, cough, cold, chest pain, shortness of breath, or abdominal pain. She denies any acute stressors. MRI of the brain in 2021 was normal. Independent Historian Patient's mother and sister report that patient has had a lot of stress but, but no more than normal Review of External Notes Reviewed colorectal surgery note from 03/21/24 where patient was seen for slow transient constipation. Past Medical History Medical History and Problem List Past Medical History: Diagnosis Date Anesthesia complication Autonomic dysfunction Chronic constipation Depression Depressive disorder Generalized anxiety disorder History of colonic polyps HLD (hyperlipidemia) Migraines Mixed sleep apnea Obesity Other nervous system complications PCOS (polycystic ovarian syndrome) Stomach problems Syncope Medications atorvastatin (LIPITOR) 10 MG tablet clonazePAM (KLONOPIN) 0.5 MG tablet DULoxetine (CYMBALTA) 30 MG capsule erenumab-aooe (AIMOVIG) 140 MG/ML injection fludrocortisone (FLORINEF) 0.1 MG tablet hydrOXYzine (ATARAX) 50 MG tablet levothyroxine (SYNTHROID/LEVOTHROID) 25 MCG tablet linaclotide (LINZESS) 290 MCG capsule medroxyPROGESTERone (PROVERA) 10 MG tablet midodrine (PROAMATINE) 5 MG tablet ondansetron (ZOFRAN ODT) 4 MG ODT tab order for DME oxyBUTYnin (DITROPAN) 5 MG tablet plecanatide (TRULANCE) 3 MG tablet prochlorperazine (COMPAZINE) 5 MG tablet ZOLMitriptan (ZOMIG-ZMT) 5 MG ODT Surgical History Past Surgical History: Procedure Laterality Date APPENDECTOMY APPENDECTOMY BREAST SURGERY COLONOSCOPY N/A 12/10/2016 Procedure: COMBINED COLONOSCOPY, SINGLE OR MULTIPLE BIOPSY/POLYPECTOMY BY BIOPSY; Surgeon: Chaitanya Colon MD; Location: [facility] COLONOSCOPY WITH CO2 INSUFFLATION N/A 12/13/2014 Procedure: COLONOSCOPY WITH CO2 INSUFFLATION; Surgeon: Adelso Dawson MD; Location: [facility] ORTHOPEDIC SURGERY [facility] EXPLORATORY OF ABDOMEN Physical Exam Patient Vitals for the past 24 hrs: BP Temp Temp src Pulse Resp SpO2 Height Weight 04/20/24 1530 (!) 122/93 -- -- 73 18 96 % -- -- 04/20/24 1500 121/89 -- -- 67 -- 97 % -- -- 04/20/24 1239 -- -- -- -- -- -- 1.676 m (5' 6) 79.4 kg (175 lb) 04/20/24 1236 (!) 142/95 99.1 ??F (37.3 ??C) Oral 77 18 100 % -- -- Physical Exam GENERAL: Awake, alert CARDIOVASCULAR: Regular rate and rhythm LUNGS: Clear bilaterally, no wheezes rales or rhonchi ABDOMEN: Soft, nontender, no rebound or guarding EXTREMITIES: No peripheral edema NEUROLOGICAL: Patient is awake, face is symmetric, tongue is midline, extraocular muscles intact, no dysarthria, no dysmetria on [id number], 5 out of 5 strength throughout and sensation is normal Diagnostics Lab Results Labs Ordered and Resulted from Time of ED Arrival to Time of ED Departure BASIC METABOLIC PANEL - Abnormal Result Value Sodium 141 Potassium 4.2 Chloride 105 Carbon Dioxide (CO2) 24 Anion Gap 12 Urea Nitrogen 7.7 Creatinine 0.67 GFR Estimate >90 Calcium 9.2 Glucose 108 (*) CBC WITH PLATELETS AND DIFFERENTIAL - Abnormal WBC Count 3.5 (*) RBC Count 4.51 Hemoglobin 13.4 Hematocrit 39.5 MCV 88 MCH 29.7 MCHC 33.9 RDW 13.0 Platelet Count 228 % Neutrophils 48 % Lymphocytes 38 % Monocytes 11 % Eosinophils 3 % Basophils 1 % Immature Granulocytes 0 NRBCs per 100 WBC 0 Absolute Neutrophils 1.6 Absolute Lymphocytes 1.3 Absolute Monocytes 0.4 Absolute Eosinophils 0.1 Absolute Basophils 0.0 Absolute Immature Granulocytes 0.0 Absolute NRBCs 0.[address] w/o contrast Final Result IMPRESSION: No acute intracranial abnormality. CLIFFORD BROOKS MD SYSTEM ID: [id number] EKG ECG results from 04/20/24 EKG 12 lead Value Systolic Blood Pressure Diastolic Blood Pressure Ventricular Rate [address] Interval 146 QRS Duration 104 QT 418 QTc 434 P Ranger 45 R AXIS 43 T Ranger 36 Interpretation ECG Sinus rhythm Normal ECG When compared with ECG of 03-Mar-2022 09:55, No significant change was found Unconfirmed report - interpretation of this ECG is computer generated - see medical record for final interpretation Confirmed by - EMERGENCY ROOM, PHYSICIAN ([id number]), restaurant expeditor ROLY PAIZ ([id number]) on 04/20/2024 2:17:[address] head: No intracranial hemorrhage ED Course Medications Administered Medications acetaminophen (TYLENOL) tablet 1,000 mg (1,000 mg Oral $Given 04/20/24 1350) LORazepam (ATIVAN) tablet 1 mg (1 mg Oral $Given 04/20/24 1423) LORazepam (ATIVAN) tablet 1 mg (1 mg Oral $Given 04/20/24 1549) Procedures None Discussion of Management Neurology, Dr. Bajwa ED Course ED Course as of 04/20/24 1829 Aleshia Apr 20, 2024 1232 I evaluated the patient, obtained history, and performed a physical exam as detailed above. Additional Documentation None Medical Decision Making / Diagnosis [facility] Diagnoses: None MIPS None [facility] Latricia Avitia is a 34 year old female who presents for evaluation of multiple episodes in which she feels that she cannot move. She also had another episode in the emergency department that was witnessed and she was blinking. I did try to move her arms and she was very stiff but suddenly came out of this episode. When I held the patient's arms up, they stayed above her head. These are very atypical for seizures. Certainly she does need workup for this with EEG. Also spoke with neurology about the patient. No indication for antiepileptic medications at this point. CT head was performed because patient had a diffuse headache that did not appear to be sudden onset, and neurological exam was nonfocal, labs showed some mild leukopenia otherwise unremarkable. Patient remained back to baseline. She has been under a lot of stress, unclear as to the etiology of these episodes but believes sheis stable for outpatient management. Disposition The patient was discharged. Diagnosis ICD-10-CM 1. Seizure-like activity (H) R56.9 Discharge Medications Discharge Medication List as of 04/20/2024 4:07 PM Scribe Disclosure: I, Yesi Jonelle, am serving as a scribe at 12:31 PM on 04/20/2024 to document services personally performed by Eri Vasques MD based on my observations and the provider's statements to me. Eri Vasques MD 04/20/24 1831 documented in this encounter Plan of Treatment Upcoming Encounters Date Type Department Care Team (Latest Contact Info) Description 04/25/2024 1:50 PM CDT Therapy Visit [facility] [place] [address] [place] [address] [place] [address] [place], [place] [phone] 05/08/2024 PRE VISIT [facility] [address] [place] [address] Torri Francois MD [address] [place] [address] *-*INCOMING RECORDS*-* 05/08/2024 11:30 AM CDT Ancillary Procedure [facility] [address] [phone] 05/08/2024 2:45 PM CDT Office Visit [facility] [address] [phone] Abhishek Acevedo PA-C [address] [facility] [address] [address] Torri Francois MD [address] [place] [phone] 06/07/2024 11:20 AM CDT Office Visit [facility] [address] [phone] Latricia Pettit PA-C [address] [place] [phone] Abby Vasquez MD [address] [place] [phone] 07/06/2024 3:30 PM CDT Virtual Visit [facility] [address] [phone] Marlo Madsen MD [address] [place] [address] [phone] 10/03/2024 3:15 PM COMPUTING SYSTEMS MECHANIC Virtual Visit [facility] [address] [phone] Latricia Pettit PA-C [address] [place] [phone] 10/10/2024 8:30 AM COMPUTING SYSTEMS MECHANIC Office Visit [facility] [place] [address] [facility] [address] [place] [phone] Abhishek Acevedo PA-C [address] [facility] [address] [place] [phone] 01/11/2025 9:00 AM CDT Virtual Visit [facility] [address] [place] [phone] Rosalba Pendleton, LEATHER COATER PHOTOGRAPHIC TECHNICIAN [address] [place] [address] [id number] [place], [place] [phone] documented as of this encounter Procedures Procedure Name Priority Date/Time Associated Diagnosis Comments CT HEAD W/O CONTRAST STAT 04/20/2024 2:42 PM CDT EXTRA TUBE STAT 04/20/2024 12:50 PM CDT EXTRA RED TOP TUBE STAT 04/20/2024 12 :50 PM CDT EXTRA BLUE TOP TUBE STAT 04/20/2024 1 2:50 PM CDT CBC WITH PLATELETS AND DIFFERENTIAL STAT 04/20/2024 12:50 PM CDT CBC WITH PLATELETS & DIFFERENTIAL STAT 04/20/2024 12:50 PM CDT BASIC METABOLIC PANEL STAT 04/20/2024 12:50 PM CDT EKG 12-LEAD, TRACING ONLY STAT 04/20/2024 12:39 PM CDT documented in this encounter Results * Head CT w/o contrast (04/20/2024 2:42 PM CDT) Anatomical Region Laterality Modality Head, SUBRAD CT NEURO, SUBRA D CT NEURO, UMP CT NEURO, RAD CT Computed Tomography Impressions 04/20/2024 3:04 PM CDT IMPRESSION: No acute intracranial abnormality. CLIFFORD BROOKS MD SYSTEM ID: [id number] Narrative 04/20/2024 3:[address] SCAN [...] intracranial abnormality. CLIFFORD BROOKS MD SYSTEM ID: [id number] Eri Vasques MD [facility] CT ORDERABLES * Extra Red Top Tube (04/20/2024 12:50 PM CDT) Hold Specimen [facility] 04/20/2024 2:04 PM CDT LABORATORY Blood STRUCTURE OF RIGHT UPPER LIMB / Unknown Venipuncture / Unknown 04/20/2024 12:50 PM CDT 04/20/2024 12:54 PM CDT Eri Vasques MD LAB - BLOOD ORDERABL ES [facility] [address] Lab (1st floor, no room number) [place] [phone] * Extra Blue Top Tube (04/20/2024 12:50 PM CDT) Hold Specimen [facility] 04/20/2024 2:04 PM CDT [facility] LABORATORY Blood STRUCTURE OF RIGHT UPPER LIMB / Unknown Venipuncture / Unknown 04/20/2024 12:50 PM CDT 04/20/2024 12:54 PM CDT Eri Vasques MD LAB - BLOOD ORDERABL ES [facility] LABORATORY [facility] Lab [address] Lab (1st floor, no room number) [place] [phone] * (ABNORMAL) CBC with platelets and differential [...] LAB - BLOOD ORDERABL ES [facility] LABORATORY [facility] [address] Lab (1st floor, no room number) [place] [address], [facility] * (ABNORMAL) Basic metabolic panel (BMP) (04/20/2024 12:50 PM CDT) Sodium 141 135 - 145 mmol/L 04/20/2024 1:18 PM CDT [facility] LAB[facility]AT[facility] Potassium 4.2 3.4 - 5.3 mmol/L 04/20/2024 1:18 PM CDT [facility] Chloride 105 98 - 107 mmol/L 04/20/2024 1:18 PM CDT [facility] Carbon Dioxide (CO2) 24 22 - 29 mmol/L 04/20/2024 1:18 PM CDT [facility] Anion Gap 12 7 - 15 mmol/L 04/20/2024 1:18 PM CDT [facility] Urea Nitrogen 7.7 6.0 - 20.0 mg/dL 04/20/2024 1:18 PM CDT [facility] Creatinine 0.67 0.51 - 0.95 mg/dL 04/20/2024 1:18 PM CDT [facility] GFR Estimate >90 >60 mL/min/1.7 3m2 04/20/2024 1:18 PM CDT [facility] Comment:eGFR calculated us2020 CKD-EPI equation. Calcium [...] MD LAB - BLOOD ORDERABL ES LABORATORY [facility] Lab [address] Lab (1st floor, no room number) [place] [address], [facility] * EKG 12 lead (04/20/2024 12:39 PM CDT) Systolic Blood Pressure mmHg RADIOLOGY RESULTS Diastolic Blood Pressure mmHg RADIOLOGY RESULTS Ventricular Rate 65 BPM RAD IOLOGY RESULTS Atrial Rate 65 BPM RADI[address] Y RESULTS CT Interval 146 ms RADIOLOG Y RESULTS QRS Duration 104 ms RADIOLO GY RESULTS QT 418 ms RADIOLOGY RESULTS QTc 434 ms RADIOLOGY RESULTS P Ranger 45 degrees RADIOLOGY RESULTS R AXIS 43 degrees RADIOLOGY RESULTS T Ranger 36 degrees RADIOLOGY RESULTS Interpretation ECG Sinus rhythm Normal ECG When compared with ECG of 03-Mar-2022 09:55, No significant change was found Unconfirmed report - interpretation of this ECG is computer generated - see medical record for final interpretation Confirmed by - EMERGENCY ROOM, PHYSICIAN ([id number]), restaurant expeditor ROLY PAIZ ([id number]) on 04/20/2024 2:17:32 PM RADIOLOGY RESULTS 04/20/2024 12:3 9 PM CDT 04/20/2024 2:17 PM CDT Eri Vasques MD ECG ORDERABLES RADIOLOGY RESULTS documented in this encounter Visit Diagnoses Diagnosis Seizure-like activity (H) Other convulsions documented in this encounter Administered Medications Inactive Administered Medications - up to 3 most recent administrations Medication Order MAR Action Action Date Dose Rate Site acetaminophen (TYLENOL) tablet 1,000 mg 1,000 mg, Oral, ONCE, On Aleshia 04/20/24 at 1345, For 1 dose, Maximum acetaminophen dose from all sources = 75 mg/kg/day not to exceed 4 gram $Given 04/20/2024 1:50 PM CDT 1,000 mg LORazepam (ATIVAN) tablet 1 mg 1 mg, Oral, ONCE, On Aleshia 04/20/24 at 1425, For 1 dose $Given 04/20/2024 2:23 PM CDT 1 mg LORazepam (ATIVAN) tablet 1 mg 1 mg, Oral, ONCE, On Aleshia 04/20/24 at 1545, For 1 dose $Given 04/20/2024 3:49 PM CDT 1 mg ondansetron (ZOFRAN ODT) ODT tab 4 mg 4 mg, Oral, EVERY 6 HOURS PRN, nausea, vomiting, Starting on Aleshia 04/20/24 at 1343, With dry hands, peel back foil backing and gently remove tablet. Do not push oral disintegrating tablet through foil backing. Administer immediately on tongue and oral disintegrating tablet dissolves in seconds, then swallow with saliva. Liquid not required. $Given 04/20/2024 1:50 PM CDT 4 mg documented in this encounter Active and Recently Administered Medications Times are shown in CDT. Scheduled Medication Order 04/18/2024 04/19/2024 04/20/2024 acetaminophen (TYLENOL) tablet 1,000 mg (COMPLETED) 1,000 mg, Oral, ONCE, On Aleshia 04/20/24 at 1345, For 1 dose, Maximum acetaminophen dose from all sources = 75 mg/kg/day not to exceed 4 gram 1350 ($Given - Provi sofia: Deidre Mohan RN) LORazepam (ATIVAN) tablet 1 mg (COMPLETED) 1 mg, Oral, ONCE, On Aleshia 04/20/24 at 1425, For 1 dose 1423 ($Given - Provi sofia: Deidre Mohan RN) LORazepam (ATIVAN) tablet 1 mg (COMPLETED) 1 mg, Oral, ONCE, On Aleshia 04/20/24 at 1545, For 1 dose 1549 ($Given - Provi sofia: Marissa Pineda RN) PRN Medication Order 04/18/2024 04/19/2024 04/20/2024 ondansetron (ZOFRAN ODT) ODT tab 4 mg 4 mg, Oral, EVERY 6 HOURS PRN, nausea, vomiting, Starting on Aleshia 04/20/24 at 1343, With dry hands, peel back foil backing and gently remove tablet. Do not push oral disintegrating tablet through foil backing. Administer immediately on tongue and oral disintegrating tablet dissolves in seconds, then swallow with saliva. Liquid not required. 1350 ($Given - Provi sofia: Deidre Mohan RN) documented in this encounter Additional Health Concerns Assessment Noted Time PHQ-9 Depression Total Score: 12 024 12:52 PM COMPUTING SYSTEMS MECHANIC documented as of this encounter Care Teams Director Radiation Oncology Relationship Specialty Start Date End Date Monty Musa MD PCP - General Family Medicine 08/13/21 Alfonso Tang Family Practice 08/13/21 Dayanara Bee MD [address] [place] [phone] Pediatrics 12/26/14 Min Lange MD [address] [address] Neurology 03/30/16 Marlo Madsen MD [address] [place] [address] Cardiology 10/27/16 Mel Buckley, RN Nurse Coordinator Physical Medicine and Rehabilitation 12/02/16 Douglas Cadet MD [address] [place] [address] [phone] Gastroenterology 08/13/21 Rosalba Pendleton APRN PHOTOGRAPHIC TECHNICIAN [address] [place] [address] [phone] Nurse Practitioner Neurology 09/05/21 Rosalba Pendleton APRN PHOTOGRAPHIC TECHNICIAN [address] [place] [address] [phone] Assigned Neuroscience Provider 11/09/21 Marlo Madsen MD [address] [place] [address] [phone] Assigned Heart and Vascular Provider 03/14/22 Abby Vasquez MD [address] [place] [phone] Gastroenterology 07/16/22 Airam Hodges PA-C [address] [place] [address] Physician Manager Mac Surgery 07/19/23 Zain Quintana MD [address] [place] [address] [phone] Assigned Surgical Provider 10/07/23 Latricia Pettit PA-C [address] [place] [address] Assigned Gastroenterology Provider 10/15/23 documented as of this encounter
--- OUTSIDE RECORDS SUMMARY | 2024-04-22 13:07 | XMS_ITS | Encounter Summary ---
Author Organization [place] Address [address] [facility] [place] [address] Care Team Providers Care Collar Closer Lockstitch Name Role Phone Monty Musa MD Primary Care Provider Alfonso Tang Unavailable Unavailable Dayanara Bee MD Unavailable [phone] Min Lange MD Unavailable Unavailable Marlo Madsen MD Unavailable [phone] Mel Buckley RN Unavailable [phone] Douglas Cadet MD Unavailable [phone] Rosalba Pendleton APRN MASS SPECTROMETRY MANAGER Unavaila ble Rosalba Pendleton APRN MASS SPECTROMETRY MANAGER Unavaila ble Marlo Madsen MD Unavailable [phone] Abby Vasquez MD Unavailable Airam Hodges PA-C Unavailable [phone] Zain Quintana MD Unavailable [phone] Latricia Pettit PA-C Unavailable [phone] Encounter Details Date Type Department Care Team (Latest Contact Info) Description 04/20/2024 Travel Social History Tobacco Use Types Packs/Day [...] Sex Assigned at Female 10/31/2021 7:59 AM COMPUTER SECURITY SPECIALIST Gender Identity Female 10/31/2021 7:59 AM COMPUTER SECURITY SPECIALIST Sexual Orientation Straight 10/31/2021 7: 59 AM COMPUTER SECURITY SPECIALIST documented as of this encounter Plan of Treatment Upcoming Encounters Date Type Department Care Team (Latest Contact Info) Description 04/25/2024 1:50 PM CDT Therapy Visit [facility] Rehabilitation Services [address] [place] [phone] [place] [address] [place] [address] 05/08/2024 PRE VISIT [facility] Neurology Clinic [address] [address] Torri Francois MD [address] [place] [address] 820875 *-*INCOMING RECORDS*-* 05/08/2024 11:30 AM CDT Ancillary Procedure [facility] [address] [phone] 05/08/2024 2:45 PM CDT Office Visit [facility] Neurology Clinic [address] [address] Abhishek Acevedo, STEFANOC [address] [address] Torri Francois MD [address] [place] [address] 117025 06/07/2024 11:20 AM CDT Office Visit [facility] Gastroenterology Clinic [address] [phone] Latricia Pettit PA-C [address] [place] [address] 648195 Abby Vasquez MD [address] [place] [address] 482145 07/06/2024 3:30 PM CDT Virtual Visit [facility] Heart [address] [phone] Marlo Madsen MD [address] [place] [address] 116305 10/03/2024 3:15 PM COMPUTER SECURITY SPECIALIST Virtual Visit [facility] Gastroenterology Clinic [address] [phone] Latricia Pettit PA-C [address] [place] [address] [phone] 10/10/2024 8:30 AM COMPUTER SECURITY SPECIALIST Office Visit [facility] [place] [address] [place] [phone] Abhishek Acevedo PA-C [address] [phone] 01/11/2025 9:00 AM CDT Virtual Visit [facility] Neurology Clinic [address] [phone] Rosalba Pendleton APRN MASS SPECTROMETRY MANAGER [address] [place] [address] [id number] [place], [place] [phone] documented as of this encounter Visit Diagnoses Not on filedocumented in this encounter Additional Health Concerns Assessment Noted Time PHQ-9 Depression Total Score: 12 024 12:52 PM COMPUTER SECURITY SPECIALIST documented as of this encounter Care Teams Collar Closer Lockstitch Relationship Specialty Start Date End Date Monty Musa MD PCP - General Family Medicine 08/13/21 Alfonso Tang Family [facility] 08/13/21 Dayanara Bee MD [address] 064175 Pediatrics 12/26/14 Min Lange MD [address] [address] Neurology 03/30/16 Marlo Madsen MD [address] [place] [address] 135065 Cardiology 10/27/16 Mel Buckley, RN Nurse Coordinator Physical Medicine and Rehabilitation 12/02/16 Douglas Cadet MD [address] [place] [address] Gastroenterology 08/13/21 Rosalba Pendleton APRN MASS SPECTROMETRY MANAGER [address] [place] [address] Nurse Practitioner Neurology 09/05/21 Rosalba Pendleton APRN MASS SPECTROMETRY MANAGER [address] [address] Assigned Neuroscience Provider 11/09/21 Marlo Madsen MD [address] [place] [address] [address] [place] [address] Assigned Heart and Vascular Provider 03/14/22 Abby Vasquez MD [address] [place] [address] Gastroenterology 07/16/22 Airam Hodges PA-C [address] [place] [address] Physician Middleware Engineer Surgery 07/19/23 Zain Quintana MD [address] [place] [address] Assigned Surgical Provider 10/07/23 Latricia Pettit PA-C [address] [place] [address] Assigned Gastroenterology Provider 10/15/23 documented as of this encounter
--- OUTSIDE RECORDS SUMMARY | 2024-04-22 13:07 | XMS_ITS | Encounter Summary ---
Author Organization [place] Address [facility] access hospital0 [facility] [place] [address] Care Team Providers Care [place] Soundings Group Leader Name Role Phone Monty Musa MD Primary Care Provider Alfonso Tang Unavailable Unavailable Dayanara Bee MD Unavailable [phone] Min Lange MD Unavailable Unavailable Marlo Madsen MD Unavailable [phone] Mel Buckley RN Unavailable [phone] Douglas Cadet MD Unavailable [phone] Rosalba Pendleton APRN SAP BW CONSULTANT Unavaila ble Rosalba Pendleton APRN SAP BW CONSULTANT Unavaila ble Marlo Madsen MD Unavailable [phone] Abby Vasquez MD Unavailable Airam Hodges PA-C Unavailable [phone] Zain Quintana MD Unavailable [phone] Latricia Pettit PA-C Unavailable [phone] Reason for Visit * Rehab Therapy Integrated Services (Routine) - Authorized Specialty Diagnoses / Procedures Referred By Emily t Referred To Contact Diagnoses Slow transit constipation [place] [address] [place] [address] Referral ID Status Reason Start Date Expiration Date V isits Requested Visits Authorized [id number] Authorized 09/13/2023 09/12/2024 365 365 Encounter Details Date Type Department Care Team (Latest Contact Info) Description 03/13/2024 10:10 AM CDT Therapy Visit [facility] [address] [facility] [address] [place] [address] [place] [address] [place] [address] Slow transit constipation (Primary Dx) Social History Tobacco Use Types Packs/Day Years Used Date Smoking Tobacco: Never Smokeless Tobacco: Never Alcohol Use Standard Drinks/Week Comments No 0 (1 standard drink = 0.6 oz pur e alcohol) PHQ-2 Answer Date Recorded PHQ-2 Score 2 01/13/2024 Adolescent Education Answer Date Record ed Getting School Help Needed Not on file 06/04 Sex and Gender Information Value Date Recorded Sex Assigned at Female 10/31/2021 7:59 AM SAIL REPAIR PERSON Gender Identity Female 10/31/2021 7:59 AM SAIL REPAIR PERSON Sexual Orientation Straight 10/31/2021 7: 59 AM SAIL REPAIR PERSON documented as of this encounter Plan of Treatment Upcoming Encounters Date Type Department Care Team (Latest Contact Info) Description 04/25/2024 1:50 PM CDT Therapy Visit [address] [place] [phone] Lainey Simon, PT [address] [place] [address] 05/08/2024 PRE VISIT [facility] Neurology Clinic [place] 955789 [facility] 3rd [place] [address] Torri Francois MD [address] [place] [address] 058765 *-*INCOMING RECORDS*-* 05/08/2024 11:30 AM CDT Ancillary Procedure [facility] EEG [facility] Outpatient [facility] [address] [phone] 05/08/2024 2:45 PM CDT Office Visit [facility] Neurology Clinic [address] [phone] Abhishek Acevedo PA-C [address] [address] Torri Francois MD [address] [place] [address] 360955 06/07/2024 11:20 AM CDT Office Visit [facility] Gastroenterology Clinic [address] [phone] Latricia Pettit PA-C [address] [place] [address] [phone] Abby Vasquez MD [address] [place] [address] 040825 07/06/2024 3:30 PM CDT Virtual Visit [facility] Heart Clinic [address] [phone] Marlo Madsen MD [address] [place] [address] 415365 10/03/2024 3:15 PM SAIL REPAIR PERSON Virtual Visit [facility] Gastroenterology Clinic [address] [phone] Latricia Pettit PA-C [address] [place] [address] 876015 10/10/2024 8:30 AM SAIL REPAIR PERSON Office Visit [facility] Sleep [facility] [place] [address] [facility] 103 [place] [phone] Abhishek Acevedo PA-C [address] [facility] 103 [place] [address] 01/11/2025 9:00 AM CDT Virtual Visit [facility] Neurology Clinic [place] 955789 [facility] 3rd [place] [address] Rosalba Pendleton, JUMPBASTING ARMHOLE BASTER SAP BW CONSULTANT [address] [facility] [id number] [place] [address] documented as of this encounter Visit Diagnoses Diagnosis Slow transit constipation- Primary documented in this encounter Additional Health Concerns Assessment Noted Time PHQ-9 Depression Total Score: 12 024 12:52 PM SAIL REPAIR PERSON documented as of this encounter Care Teams [place] [employer] [place] Soundings Group Leader Relationship Specialty Start Date End Date Monty Musa MD PCP - General Family Medicine 08/13/21 Alfonso Tang Family Practice 08/13/21 Dayanara Bee MD [address] [place] [address] 691485 Pediatrics 12/26/14 Min Lange MD [address] [address] Neurology 03/30/16 Marlo Madsen MD [address] [place] [address] 793925 Cardiology 10/27/16 Mel Buckley, RN Nurse Coordinator Physical Medicine and Rehabilitation 12/02/16 Douglas Cadet MD [address] [place] [address] 050042 [phone] Gastroenterology 08/13/21 Rosalba Pendleton APRN SAP BW CONSULTANT [address] [place] [address] Nurse Practitioner Neurology 09/05/21 Rosalba Pendleton APRN SAP BW CONSULTANT [address] [place] [address] Assigned Neuroscience Provider 11/09/21 Marlo Madsen MD [address] [place] [address] Assigned Heart and Vascular Provider 03/14/22 Abby Vasquez MD [address] [place] [address] Gastroenterology 07/16/22 Airam Hodges PA-C 500 [place] [address] Physician Legal Department Manager Surgery 07/19/23 Zain Quintana MD [address] [place] [address] Assigned Surgical Provider 10/07/23 Latricia Pettit PA-C [address] [place] [address] Assigned Gastroenterology Provider 10/15/23 documented as of this encounter
--- OUTSIDE RECORDS SUMMARY | 2024-04-22 13:07 | XMS_ITS | Encounter Summary ---
Author Organization [place] Address [facility] [place] [address] Care Team Providers Care Senior Facilities Manager Name Role Phone Monty Musa MD Primary Care Provider [phone] Alfonso Tang Unavailable Unavailable Dayanara Bee MD Unavailable [phone] Min Lange MD Unavailable Unavailable Marlo Madsen MD Unavailable [phone] Mel Buckley RN Unavailable [phone] Douglas Cadet MD Unavailable [phone] Rosalba Pendleton APRN NURSE PRACTITIONER PER DIEM Unavaila ble Rosalba Pendleton APRN NURSE PRACTITIONER PER DIEM Unavaila ble Marlo Madsen MD Unavailable [phone] Abby Vasquez MD Unavailable Airam Hodges PA-C Unavailable [phone] Zain Quintana MD Unavailable [phone] Latricia Pettit PA-C Unavailable [phone] Reason for Visit * Reason Onset Date Comments Clinic Care Coordination - Follow-up 03/27/2024 Encounter Details Date Type Department Care Team (Late st Contact Info) Description 03/27/2024 Telephone [facility] Neurology Clinic [place] [address] [facility] 3rd [place] [phone] Rosalba Pendleton, MAXIMILIANO NURSE PRACTITIONER PER DIEM 909 [facility] [id number] [place] [address] Clinic Care Coordination - Follow-up Social History [...] Sex Assigned at Female 10/31/2021 7:59 AM CNA Gender Identity Female 10/31/2021 7:59 AM CNA Sexual Orientation Straight 10/31/2021 7: 59 AM CNA documented as of this encounter Miscellaneous Notes * Telephone Encounter - Nishi Norton - 03/27/2024 2:07 PM CDT Left Voicemail (1st Attempt) and Sent Mychart (1st Attempt) for the patient to call back and schedule the following: Appointment type: Return Headache Provider: Rosalba Pendleton Return date: around 01/12/2025 Specialty phone number: [phone] Additional appointment(s) needed: Additonal Notes: 1 year follow up Nishi Norton on 03/27/2024 at 2:08 PM documented in this encounter Plan of Treatment Upcoming Encounters Date Type Department Care Team (Latest Contact Info) Description 04/25/2024 1:50 PM CDT Therapy Visit [facility] Rehabilitation Services [address] [place] [address] Lainey Simon, JAY [address] [place] [address] 05/08/2024 PRE VISIT [facility] Neurology [address] [phone] Torri Francois MD [address] [place] [address] 825365 *-*INCOMING RECORDS*-* 05/08/2024 11:30 AM CDT Ancillary Procedure [facility] EEG [facility] Outpatient [facility] [address] [phone] 05/08/2024 2:45 PM CDT Office Visit [facility] Neurology [address] [phone] Abhishek Acevedo PAJyoti [address] [phone] Torri Francois MD [address] [place] [address] 574565 06/07/2024 11:20 AM CDT Office Visit [facility] Gastroenterology Clinic [address] [phone] Latricia Pettit PAJyoti [address] [place] [address] 854945 Abby Vasquez MD [address] [place] [address] 943975 07/06/2024 3:30 PM CDT Virtual Visit [facility] Heart Clinic [address] [phone] Marlo Madsen MD [address] [place] [address] 834215 10/03/2024 3:15 PM CNA Virtual Visit [facility] Gastroenterology Clinic [address] 4th [place] [phone] Latricia Pettit PA-C [address] [place] [address] 891195 10/10/2024 8:30 AM CNA Office Visit [facility] Sleep [facility] [place] 6[address] [facility] 103 [place] [phone] Abhishek Acevedo PA-C 6853 [facility] [place] [facility] 103 [place], [place] [phone] 01/11/2025 9:00 AM CDT Virtual Visit [facility] Neurology Clinic [address] 3rd [place] [phone] Rosalba Pendleton, LIFE SKILLS COACH [address] [id number] [place], [place] 317135 documented as of this encounter Visit Diagnoses Not on filedocumented in this encounter Additional Health Concerns Assessment Noted Time PHQ-9 Depression Total Score: 12 024 12:52 PM CNA documented as of this encounter Care Teams Senior Facilities Manager Relationship Specialty Start Date End Date Monty Musa MD PCP - General Family Medicine 08/13/21 Alfonso Tang Family Practice 08/13/21 Dayanara Bee MD [address] [place] [address] 474035 Pediatrics 12/26/14 Min Lange MD [address] [place] [address] [address] Neurology 03/30/16 Marlo Madsen MD [address] [address] Cardiology 10/27/16 Mel Buckley, RN Nurse Coordinator Physical Medicine and Rehabilitation 12/02/16 Douglas Cadet MD 500 [place] [address] Gastroenterology 08/13/21 Rosalba Pendleton APRN NURSE PRACTITIONER PER DIEM [address] [place] [address] [phone] Nurse Practitioner Neurology 09/05/21 Rosalba Pendleton APRN NURSE PRACTITIONER PER DIEM [address] [place] [address] 065975 Assigned Neuroscience Provider 11/09/21 Marlo Madsen MD [address] [place] [address] 928315 Assigned Heart and Vascular Provider 03/14/22 Abby Vasquez MD [address] [place] [address] 045915 Gastroenterology 07/16/22 Airam Hodges PA-C 500 [place], [place] 075005 Physician Dealer Compliance Representative Surgery 07/19/23 Zain Quintana MD 500 [place] [address] Assigned Surgical Provider 10/07/23 Latricia Pettit PA-C 909 [place] [address] Assigned Gastroenterology Provider 10/15/23 documented as of this encounter
--- OUTSIDE RECORDS SUMMARY | 2024-04-22 13:07 | XMS_ITS | Encounter Summary ---
Author Organization [place] Address [address] [place] [address] Care Team Providers Care Label Designer Name Role Phone Monty Musa MD Primary Care Provider [phone] Alfonso Tang Unavailable Unavailable Dayanara Bee MD Unavailable [phone] Min Lange MD Unavailable Unavailable Marlo Madsen MD Unavailable [phone] Mel Buckley RN Unavailable [phone] Douglas Cadet MD Unavailable Rosalba Pendleton APRN METAL LOADER Unavaila ble Rosalba Pendleton APRN METAL LOADER Unavaila ble Marlo Madsen MD Unavailable [phone] Abby Vasquez MD Unavailable Airam Hodges PA-C Unavailable [phone] Zain Quintana MD Unavailable [phone] Latricia Pettit PA-C Unavailable [phone] Reason for Referral * Consultation (Routine: Next available opening) - Pending Review Specialty Diagnoses / Procedures Referred By Emily t Referred To Contact Diagnoses Abnormal EEG Abhishek Acevedo PA-C [address] [facility] [address] [address] Referral ID Status Reason Start Date Expiration Date V isits Requested Visits Authorized [id number] Pending Review 03/14/2024 03/14/2025 1 1 Question Answer Reason for Referral: Epilepsy/Seizures Scheduling Instructions: [facility] will call you to coordinate your care as prescribed by your provider. If you don't hear from a access service representative within 2 business days, please call . Additional Information: abnormal EEG on sleep study Comments Please be aware that coverage of these services is subject to the terms and limitations of your health insurance plan. Call member services at your health plan with any benefit or coverage questions. [facility] will call you to coordinate your care as prescribed by your provider. If you don't hear from a access service representative within 2 business days, please call . Reason for Visit * Reason Comments Study Results Encounter Details Date Type Department Care Team (Late st Contact Info) Description 03/14/2024 10:30 AM CDT Office Visit [facility] [address] [address] Abhishek Acevedo PA-C [address] [facility] [address] [phone] Delayed sleep phase syndrome (Primary Dx); Abnormal EEG Social History Tobacco Use Types Packs/Day Years [...] Sex Assigned at Female 10/31/2021 7:59 AM PRESS SET UP PERSON Gender Identity Female 10/31/2021 7:59 AM PRESS SET UP PERSON Sexual Orientation Straight 10/31/2021 7: 59 AM PRESS SET UP PERSON documented as of this encounter Last Filed Vital Signs Vital Sign Reading Time Taken Comments Blood Pressure 122/88 03/14/2024 10:00 AM CDT Pulse 84 03/14/2024 10:00 AM CDT Temperature - - Respiratory Rate - - Oxygen Saturation 98% 03/14/2024 10:00 AM CDT Inhaled Oxygen Concentration - - Weight 83 kg (183 lb) 03/14/2024 10:00 AM CDT Height 167.6 cm (5' 6) 03/14/2024 10:00 AM CDT Body Mass Index 29.54 03/14/2024 10:00 AM CDT documented in this encounter Progress Notes * Abhishek Acevedo PA-C - 03/14/2024 10:30 AM CDT Sleep Follow-Up Visit: Date on this visit: 03/14/2024 Latricia Hatch comes in today for follow-up of her sleep study done on 01/20/24. Latricia Hatch was initially seen for Insomnia, increased headaches upon waking, increased movements in sleep . PSG Results: Weight: 208 pounds Sleep Architecture: Sleep fragmentation The total recording time of the polysomnogram was 563.0 minutes. The total sleep time was 388.0 minutes. Sleep latency was 59.0 minutes. REM latency was 429.0 minutes. Arousal index was 67.9 arousalsper hour. Sleep efficiency was 68.9%. Wake after sleep onset was 116.0 minutes. The patient spent 23.2% of total sleep time in Stage N1, 42.1% in Stage N2, 18.0% in Stage N3, and 16.6% in REM. Time in REM supine was 64.5 minutes. Respiration: This study did not demonstrate evidence suggestive of clinically significant sleep disordered breathing. This was a good study that included REM supine. Events ? The polysomnogram revealed a presence of 1 obstructive, 1 central, and - mixed apneas resulting in an apnea index of 0.3 events per hour. There were 5 obstructive hypopneas and - central hypopneas resulting in an obstructive hypopnea index of 0.8 and central hypopnea index of - events per hour. The combined apnea/hypopnea index was 1.1 events per hour (central apnea/hypopnea index was 0.2 events per hour). The REM AHI was 0.9 events per hour. The supine AHI was 1.2 events per hour. TheRERA index was 2.5 events per hour. The RDI was 3.6 events per hour. Snoring - was reported as mild. Respiratory rate and pattern - was notable for normal respiratory rate and pattern. Sustained Sleep Associated Hypoventilation - Transcutaneous carbon dioxide monitoring was not used. Sleep Associated Hypoxemia - (Greater than 5 minutes O2 sat at or below 88%) was not present. Baseline oxygen saturation was 94.6%. Lowest oxygen saturation was 90.0%. Time spent less than or equal to 88% was 0 minutes. Time spent less than or equal to 89% was 0 minutes. Movement Activity: Elevated PLMs during NREM and mild increased transient (lower extremity) movements during REM as well. Periodic Limb Activity - There were 157 PLMs during the entire study. The PLM index was 24.3 movements per hour. The PLM Arousal Index was 8.2 per hour. REM EMG Activity - Excessive transient muscle activity was present. Nocturnal Behavior - Abnormal sleep related behaviors were not noted. Bruxism - None apparent. EEG: This was not an expanded seizure montage however the patient had a 30 second burst of generalized 2-3 hx sharp wave activity. Uncertain clinical significance. Cardiac Summary: Limited 1 lead EKG study with signal frequently obscured by artifact. Regardless this investigation primarily demonstrated narrow QRS complexes preceded by P waves suggestive of sinus rhythm. Intermittent tachycardia. The average pulse rate was 62.0 bpm. The minimum pulse rate was 48.0 bpm while the maximum pulse rate was 101.0 bpm. Assessment: This study did not demonstrate evidence suggestive of clinically significant sleep disordered breathing. This was a good study that included REM supine. Elevated PLMs during NREM and mild increased transient (lower extremity) movements during REM as well. This was not an expanded seizure montage however the patient had a 30 second burst of generalized 2-3 hx sharp wave activity. Uncertain clinical significance. RLS: Ferritin was 40 in 09/2023. She denies restlessness before bed much, maybe twice per month. Hersheets are off the bed in the morning. She wakes diagonally in bed. She took iron for a couple months, but her GI provider did not want her on it. She did not notice a difference on the iron. In bed at 11 PM. Falls asleep around 12-1 AM. Will take clonazepam if getting close to 1 AM. Wakes:9-9:30 AM. Naps 2/week for 2 hours. She gets bright light upon awakening by opening her curtains, northeast facing. She tried 3-15 mg 30-60 min before bed. She has a racing mind when trying get to sleep. She has tried relaxation exercises and biofeedback.She has tried listening to things and white noise sometimes helps, anything else wakes her. She does sleep better when she takes clonazepam. She has tried eszopiclone 3 mg in the past and that also helped. Trazodone was not effective. Past medical/surgical history, family history, social history, medications and allergies were reviewed. Problem List: Patient Active Problem List Diagnosis Date Noted Slow transit constipation 12/01/2023 Priority: Medium Irritable bowel syndrome without diarrhea 04/15/2016 Priority: Medium Syncope 01/25/2014 Priority: Medium Intractable 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 aura 10/05/2013 Priority: Medium Problem list name updated by automated process. 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 Priority: Medium Abdominal pain, generalized 10/05/2013 Priority: Medium Impression/Plan: (G47.21) Delayed sleep phase syndrome (primary encounter diagnosis) Comment: Latricia continues to have very fragmented sleep, but is in bed 10 hours (11 PM to 9 AM). This study did not show any apnea. She had a low sleep efficiency of 68% and high arousal index (about 63/hr). Her sleep did become more consolidated after 3 AM. The vast majority of the arousals were spo ntaneous. She tried to go to sleep a few hours earlier than her normal sleep onset. She gets a racing mind at night, so likely has either some anxiety or psychophysiological insomnia in addition to the DSPS. She does sleep better when she takes clonazepam. She has tried eszopiclone 3 mg in the pastand that also helped. Trazodone was not effective. Plan: Try to limit time in bed to 1-9 AM. We discussed light exposure and melatonin use again as well. (R94.01) Abnormal EEG Comment: This was not an expanded seizure montage however the patient had a 30 second burst of generalized 2-3 hx sharp wave activity. Uncertain clinical significance. Plan: Adult Neurology Credit Verifier Referral She will follow up with me in about 6 month(s). 42 minutes were spent on the date of the encounter doing chart review, history and exam, documentation and further activities as noted above. Abhishek Acevedo PA-C CC: No ref. provider found documented in this encounter Nursing Notes * Maura Burnette MA - 03/14/2024 10:30 AM CDT Chief Complaint Patient presents with Study Results Initial BP 122/88 Pulse 84 Ht 1.676 m (5' 6) Wt 83 kg (183 lb) SpO2 98% BMI 29.54 kg/m??Estimated body mass index is 29.54 kg/m?? as calculated from the following: Height as of this encounter: 1.676 m (5' 6). Weight as of this encounter: 83 kg (183 lb). Medication Reconciliation: complete ESS 13 Maura Burnette MA documented in this encounter Plan of Treatment Upcoming Encounters Date Type Department Care Team (Latest Contact Info) Description 04/25/2024 1:50 PM CDT Therapy Visit [facility] [address] [place] [address] [place] [address] [place] [address] 05/08/2024 PRE VISIT [facility] Neurology Clinic [address] [phone] Torri Francois MD [address] [place] [address] *-*INCOMING RECORDS*-* 05/08/2024 11:30 AM CDT Ancillary Procedure [facility] [address] [phone] 05/08/2024 2:45 PM CDT Office Visit [facility]rology [facility] [address] [phone] Abihshek Acevedo PA-C [address] [place] [address] Torri Francois MD [address] [place] [phone] 06/07/2024 11:20 AM CDT Office Visit [facility] Gastroenterology Clinic [address] [phone] Latricia Pettit PA-C [address] [place] [address] [phone] Abby Vasquez MD [address] [place] [address] [phone] 07/06/2024 3:30 PM CDT Virtual Visit [facility] Heart [address] [phone] Marlo Madsen MD [address] [place] [address] [phone] 10/03/2024 3:15 PM PRESS SET UP PERSON Virtual Visit [facility]enterology Clinic [address] [phone] Latricia Pettit PA-C [address] [place] [address] [phone] 10/10/2024 8:30 AM PRESS SET UP PERSON Office Visit [facility] Sleep Centers [place] [address] [facility] [address] [place] [phone] Abhishek Acevedo PA-C [address] [place] [address] 01/11/2025 9:00 AM CDT Virtual Visit [facility] Neurology Clinic [place] [address] [facility] [address] 3rd [place] [phone] Rosalba Pendleton, SLACKLINE OPERATOR METAL LOADER [address] [facility] [id number] [place] [address] Scheduled Referrals Name Type Priority Associated Diagnoses Orde r Schedule Adult Neurology Credit Verifier Referral Referral Routine: Next available opening Abnormal EEG Expected: 03/14/2024 (Approximate), Expires: 03/14/2025 documented as of this encounter Visit Diagnoses Diagnosis 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, delayed sleep phase type Abnormal EEG Nonspecific abnormal electroencephalogram (EEG) documented in this encounter Additional Health Concerns Assessment Noted Time PHQ-9 Depression Total Score: 12 024 12:52 PM PRESS SET UP PERSON documented as of this encounter Care Teams Label Designer Relationship Specialty Start Date End Date Monty Musa MD PCP - General Family Medicine 08/13/21 Alfonso Tang [facility] 08/13/21 Dayanara Bee MD [address] [address] Pediatrics 12/26/14 Min Lange MD [address] [address] Neurology 03/30/16 Marlo Madsen MD [address] [address] Cardiology 10/27/16 Mel Buckley, RN Nurse Coordinator Physical Medicine and Rehabilitation 12/02/16 Douglas Cadet MD [address] [place] [address] Gastroenterology 08/13/21 Rosalba Pendleton APRN METAL LOADER [address] [place] [address] Nurse Practitioner Neurology 09/05/21 Rosalba Pendleton APRN METAL LOADER [address] [place] [address] [phone] Assigned Neuroscience Provider 11/09/21 Marlo Madsen MD [address] [place] [address] [phone] Assigned Heart and Vascular Provider 03/14/22 Abby Vasquez MD [address] [place] [address] Gastroenterology 07/16/22 Airam Hodges PA-C [address] [place] [address] Physician Dust Collector Attendant Surgery 07/19/23 Zain Quintana MD [address] [place] [address] Assigned Surgical Provider 10/07/23 Latricia Pettit PA-C [address] [place] [address] Assigned Gastroenterology Provider 10/15/23 documented as of this encounter
--- OUTSIDE RECORDS SUMMARY | 2024-04-22 13:07 | XMS_ITS | Encounter Summary ---
Author Organization [place] Address [facility] [place] [address] Care Team Providers Care Shipyard Painter Name Role Phone Monty Musa MD Primary Care Provider Alfonso Tang Unavailable Unavailable Dayanara Bee MD Unavailable [phone] Min Lange MD Unavailable Unavailable Marlo Madsen MD Unavailable [phone] Mel Buckley RN Unavailable [phone] Douglas Cadet MD Unavailable Rosalba Pendleton APRN HYDRODYNAMICS PROFESSOR Unavaila ble Rosalba Pendleton APRN HYDRODYNAMICS PROFESSOR Unavaila ble Marlo Madsen MD Unavailable [phone] Abby Vasquez MD Unavailable Airam Hodges PA-C Unavailable [phone] Zain Quintana MD Unavailable [phone] Latricia Pettit PA-C Unavailable [phone] Encounter Details Date Type Department Care Team (Late st Contact Info) Description 03/27/2024 [facility] Medical Advice [facility] Neurology [facility] [place] [address] [facility] [address] [phone] Ximena Belcher Social History Tobacco Use Types Packs/Day Years [...] Assigned at Female 10/31/2021 7:59 AM DATA MODELER Gender Identity Female 10/31/2021 7:59 AM DATA MODELER Sexual Orientation Straight 10/31/2021 7: 59 AM DATA MODELER documented as of this encounter Plan of Treatment Upcoming Encounters Date Type Department Care Team (Latest Contact Info) Description 04/25/2024 1:50 PM CDT Therapy Visit [facility] Rehabilitation [facility] [address] [place] [phone] [place] [address] [place] [address] 05/08/2024 PRE VISIT [facility] Neurology Clinic [address] [phone] Torri Francois MD [address] [place] [address] [phone] *-*INCOMING RECORDS*-* 05/08/2024 11:30 AM CDT Ancillary Procedure [facility] [address] [phone] 05/08/2024 2:45 PM CDT Office Visit [facility] Neurology [facility] [address] [phone] Abhishek Acevedo PA-C [address] [facility] [address] [place] [address] Torri Francois MD [address] [place] [address] [phone] 06/07/2024 11:20 AM CDT Office Visit [facility] Gastroenterology [facility] [address] [phone] Latricia Pettit PA-C [address] [place] [address] [phone] Abby Vasquez MD [address] [place] [address] [phone] 07/06/2024 3:30 PM CDT Virtual Visit [facility] Heart [address] [phone] Marlo Madsen MD [address] [place] [address] [phone] 10/03/2024 3:15 PM DATA MODELER Virtual Visit [facility]astroenterology [facility] [address] [phone] Latricia Pettit PA-C [address] [place] [address] [phone] 10/10/2024 8:30 AM DATA MODELER Office Visit [facility] [address] [phone] Abhishek Acevedo PA-C [address] [phone] 01/11/2025 9:00 AM CDT Virtual Visit [facility] Neurology [facility] [address] [phone] Rosalba Pendleton APRN HYDRODYNAMICS PROFESSOR [address] [place] [address] documented as of this encounter Visit Diagnoses Not on filedocumented in this encounter Additional Health Concerns Assessment Noted Time PHQ-9 Depression Total Score: 12 024 12:52 PM DATA MODELER documented as of this encounter Care Teams Shipyard Painter Relationship Specialty Start Date End Date Monty Musa MD PCP - General Family Medicine 08/13/21 Alfonso Tang Family [facility] 08/13/21 Dayanara Bee MD [address] [place] [address] [phone] Pediatrics 12/26/14 Min Lange MD [address] [place] [address] Neurology 03/30/16 Marlo Madsen MD [address] [place] [address] [phone] Cardiology 10/27/16 Mel Buckley, RN Nurse Coordinator Physical Medicine and Rehabilitation 12/02/16 Douglas Cadet MD [address] [place] [address] Gastroenterology 08/13/21 Rosalba Pendleton APRN HYDRODYNAMICS PROFESSOR [address] [place] [address] [phone] Nurse Practitioner Neurology 09/05/21 Rosalba Pendleton APRN HYDRODYNAMICS PROFESSOR [address] [place] [address] Assigned Neuroscience Provider 11/09/21 Marlo Madsen MD [address] [place] [address] Assigned Heart and Vascular Provider 03/14/22 Abby Vasquez MD [address] [place] [address] Gastroenterology 07/16/22 Airam Hodges PA-C [address] [place] [address] [phone] Physician Airline Reservationist Surgery 07/19/23 Zain Quintana MD [address] [place] [address] [phone] Assigned Surgical Provider 10/07/23 Latricia Pettit PA-C [address] [place] [address] [phone] Assigned Gastroenterology Provider 10/15/23 documented as of this encounter
--- OUTSIDE RECORDS SUMMARY | 2024-04-22 13:07 | XMS_ITS | Encounter Summary ---
Author Organization [place] Address [address] [facility] [place] [address] Care Team Providers Care Inspector Automatic Typewriter Name Role Phone Monty Musa MD Primary Care Provider Alfonso Tang Unavailable Unavailable Dayanara Bee MD Unavailable [phone] Min Lange MD Unavailable Unavailable Marlo Madsen MD Unavailable [phone] Mel Buckley RN Unavailable [phone] Douglas Cadet MD Unavailable [phone] Rosalba Pendleton APRN SPECIAL AGENT Unavaila ble Rosalba Pendleton APRN SPECIAL AGENT Unavaila ble Marlo Madsen MD Unavailable [phone] Abby Vasquez MD Unavailable Airam Hodges PA-C Unavailable [phone] Zain Quintana MD Unavailable [phone] Latricia Pettit PA-C Unavailable [phone] Reason for Visit * Reason Comments Follow Up Encounter Details Date Type Department Care Team (Late st Contact Info) Description 03/21/2024 11:30 AM CDT Office Visit [facility] and Rectal Surgery [facility] [address] [place] [address] Zain Quintana MD [address] [place] [address] Constipation, unspecified constipation type (Primary Dx) Social [...] Sex Assigned at Female 10/31/2021 7:59 AM FINISHED GARMENT INSPECTOR Gender Identity Female 10/31/2021 7:59 AM FINISHED GARMENT INSPECTOR Sexual Orientation Straight 10/31/2021 7: 59 AM FINISHED GARMENT INSPECTOR documented as of this encounter Last Filed Vital Signs Vital Sign Reading Time Taken Comments Blood Pressure 129/84 03/21/2024 11:01 AM CDT Pulse 66 03/21/2024 11:01 AM CDT Temperature - - Respiratory Rate - - Oxygen Saturation 100% 03/21/2024 11:01 AM CDT Inhaled Oxygen Concentration - - Weight - - Height - - Body Mass Index - - documented in this encounter Progress Notes * Zain Quintana MD - 03/21/2024 11:30 AM CDT Images from the original note were not included. Colon and Rectal Surgery Clinic Note RE: Latricia Hatch. : 1990. FAWN: 03/21/2024. Reason for visit: follow up. HPI: Latricia Hatch is a 33 year old female who presents today for a follow up of her slow transit constipation. She has a past medical history of depression, dysautonomia, anxiety, HLD, sleep apnea, obesity, PCOS, and migraines. PFC testing in November 2022 demonstrated high resting and squeeze pressures on anorectal manometry as well as a blunted tolerable volume on the balloon test. EMG and defecography were both consistent with nonrelaxation of the pelvic floor. She underwent biofeedback/PT with limited improvement. She has tried Amitiza and Linzess in the past. She is now on Trulance, Miralax and mag oxide with tap water enemas as needed. Her last colonoscopy was in 2021 with two hyperplastic polyps in the sigmoid colon. Sitz marker exam in September 2023 noted 24 sitz markers in the distal colon after 24 hours. Only 2 sitz markers were noted in the rectum after 48 hours. She follows with Dr. Neva Vasquez in GI. Interval History: She has continued pelvic floor PT with some improvement. She has a few questions about possible surgical options in the future. Colonoscopy (10/16/2021): Surgical Pathology (10/16/2021): A) COLON, DESCENDING, POLYPECTOMY: 1. Colonic mucosa with no diagnostic abnormalities (clinically, 1 polyp) 2. Negative for serrated change, dysplasia, and malignancy B) COLON, SIGMOID, POLYPECTOMIES: 1. Hyperplastic polyps (2) CT Abdomen/Pelvis (07/09/2023): IMPRESSION: No acute findings or other explanation for symptoms. Pelvic Floor Testing (12/03/2022): Sitz Marker: Xray (09/27/2023): IMPRESSION: Sitz markers are seen along the ascending and transverse colon. Nonobstructive bowel gas pattern. Moderate to large stool burden is seen throughout the colon. No acute bony abnormality. Xray (09/28/2023): IMPRESSION: Nonobstructive bowel. Moderate stool. Sitz markers have moved to the distal colon since the prior exam. 24 Sitz markers are identified. Xray (10/01/2023): IMPRESSION: Two Sitz markers remain in the rectum. Remainder no longer present. Small to moderate amount of stool. Nonobstructed bowel gas pattern. Medications: Current Outpatient Medications Medication Sig Dispense Refill atorvastatin (LIPITOR) 10 MG tablet Take 10 mg by mouth every evening clonazePAM (KLONOPIN) 0.5 MG tablet Take 0.5 mg by mouth daily DULoxetine (CYMBALTA) 30 MG capsule Take 30 mg by mouth 2 times daily erenumab-aooe (AIMOVIG) 140 MG/ML injection Inject 1 mL (140 mg) Subcutaneous every 30 days 1 mL 11 fludrocortisone (FLORINEF) 0.1 MG tablet Take 2 tablets (0.2 mg) by mouth daily 180 tablet 3 hydrOXYzine (ATARAX) 50 MG tablet Take 50 mg by mouth daily levothyroxine (SYNTHROID/LEVOTHROID) 25 MCG tablet Take 25 mcg by mouth daily medroxyPROGESTERone (PROVERA) 10 MG tablet Take 1 tablet by mouth daily at 2 pm midodrine (PROAMATINE) 5 MG tablet Take 2 [...] mg) by mouth daily 90 tablet 3 prochlorperazine (COMPAZINE) 5 MG tablet Take 1-2 tablets (5-10 mg) by mouth every 6 hours as needed for nausea or vomiting 20 tablet 3 ZOLMitriptan (ZOMIG-ZMT) 5 MG ODT Take 1 tablet (5 mg) by mouth at onset of headache for migraine May repeat in 2 hours. Max 2 tablets/24 hours. 18 tablet 11 oxyBUTYnin (DITROPAN) 5 MG tablet Take 1 tablet by mouth 2 times daily (Patient not taking: Reported on 03/21/2024) Allergies: Allergies Allergen Reactions Amoxicillin-Pot Clavulanate GI Disturbance Vicodin Hp [Hydrocodone-Acetaminophen] Social history: Social History Tobacco Use Smoking status: Never Smokeless tobacco: Never Substance Use Topics Alcohol use: No Marital status: . ROS: A complete review of systems was performed with the patient and all systems negative except as per HPI. Physical Examination: Exam was chaperoned by Jose Ware, EMT-P BP 129/84 (BP Location: Left arm, Patient Position: Sitting, Cuff Size: Adult Regular) Pulse 66 SpO2 100% General: Well hydrated. No acute distress. Abdomen: Soft, NT ASSESSMENT This is a 34 year old F with a past medical history of depression, dysautonomia, anxiety, HLD, sleep apnea, obesity, PCOS, and migraines, presenting with constipation resistant to multiple line of medications. We discussed again her pelvic floor testing together with the importance of pelvic floor and biofeedback for a prolonged period of time given the non-relaxing pelvic floor. She is getting some improvements. Given the slow transit constipation and the pelvic floor dysfunction, I think her best surgical option would be a lap DLI if needed. Risks, benefits, and alternatives of operative treatment were thoroughly discussed with the patient, she understands these well and agrees to proceed. All pertinent labs and imaging were personally reviewed by me. PLAN - RTC as needed - Continue current care with GI 40 minutes spent on the date of the encounter doing chart review, history and exam, imaging review,documentation and further activities as noted above. Zain Quintana MD [facility] Division of Colon and Rectal Surgery [facility] Referring Provider: No referring provider defined for this encounter. Primary Care Provider: Monty Musa documented in this encounter Nursing Notes * Jose Ware EMT - 03/21/2024 11:30 AM CDT Chief Complaint Patient presents with Follow Up Vitals: 03/21/24 1101 BP: 129/84 BP Location: Left arm Patient Position: Sitting Cuff Size: Adult Regular Pulse: 66 SpO2: 100% There is no height or weight on file to calculate BMI. Jose Ware EMT-P documented in this encounter Plan of Treatment Upcoming Encounters Date Type Department Care Team (Latest Contact Info) Description 04/25/2024 1:50 PM CDT Therapy Visit [facility] Rehabilitation Services [place] [address] [place] [address] Lainey Simon, JAY [address] [place], [place] [phone] 05/08/2024 PRE VISIT [facility] Neurology Clinic [place] 170759 [facility] 3rd [place] [address] Torri Francois MD [address] [place] [address] *-*INCOMING RECORDS*-* 05/08/2024 11:30 AM CDT Ancillary Procedure [facility] [address] [phone] 05/08/2024 2:45 PM CDT Office Visit [facility] Neurology Clinic [address] [phone] Abhishek Acevedo PA-C [address] [address] Torri Francois MD [address] [place] [address] [phone] 06/07/2024 11:20 AM CDT Office Visit [facility] Gastroenterology Clinic [address] [phone] Latricia Pettit PA-C [address] [place] [address] [phone] Abby Vasquez MD [address] [place] [address] [phone] 07/06/2024 3:30 PM CDT Virtual Visit [facility] Heart [address] [phone] Marlo Madsen MD [address] [place] [address] [phone] 10/03/2024 3:15 PM FINISHED GARMENT INSPECTOR Virtual Visit [facility] Gastroenterology Clinic [address] [phone] Latricia Pettit PA-C [address] [place] [address] [phone] 10/10/2024 8:30 AM FINISHED GARMENT INSPECTOR Office Visit [facility] [place] [address] [facility] [address] [place] [phone] Abhishek Acevedo PA-C [address] [facility] [address] [place] [address] 01/11/2025 9:00 AM CDT Virtual Visit [facility] Neurology Clinic [address] 3rd [place] [phone] Rosalba Pendleton, TABLEAU LEAD SPECIAL AGENT [address] [facility] [id number] [place], [place] [phone] documented as of this encounter Visit Diagnoses Diagnosis Constipation, unspecified constipation type- Primary documented in this encounter Additional Health Concerns Assessment Noted Time PHQ-9 Depression Total Score: 12 024 12:52 PM FINISHED GARMENT INSPECTOR documented as of this encounter Care Teams Inspector Automatic Typewriter Relationship Specialty Start Date End Date Monty Musa MD PCP - General Family Medicine 08/13/21 Alfonso Tang [facility] 08/13/21 Dayanara Bee MD [address] [address] Pediatrics 12/26/14 Min Lange MD [address] [address] Neurology 03/30/16 Marlo Madsen MD [address] [address] Cardiology 10/27/16 Mel Buckley, RN Nurse Coordinator Physical Medicine and Rehabilitation 12/02/16 Douglas Cadet MD [address] [place] [address] Gastroenterology 08/13/21 Rosalba Pendleton APRN SPECIAL AGENT [address] [place] [address] Nurse Practitioner Neurology 09/05/21 Rosalba Pendleton APRN SPECIAL AGENT [address] [place] [address] Assigned Neuroscience Provider 11/09/21 Marlo Madsen MD [address] [place] [address] [phone] Assigned Heart and Vascular Provider 03/14/22 Abby Vasquez MD [address] [place] [address] Gastroenterology 07/16/22 Airam Hodges PA-C [address] [place] [address] Physician Human Resources Director Surgery 07/19/23 Zain Quintana MD [address] [place] [address] Assigned Surgical Provider 10/07/23 Latricia Pettit PA-C [address] [place] [address] Assigned Gastroenterology Provider 10/15/23 documented as of this encounter
--- OUTSIDE RECORDS SUMMARY | 2024-04-22 13:07 | XMS_ITS | Encounter Summary ---
Author Organization [place] Address [facility] [place] [address] Care Team Providers Care Meat And Seafood Manager Name Role Phone Monty Musa MD Primary Care Provider [phone] Alfonso Tang Unavailable Unavailable Dayanara Bee MD Unavailable [phone] Min Lange MD Unavailable Unavailable Marlo Masden MD Unavailable [phone] Mel Buckley RN Unavailable [phone] Douglas Cadet MD Unavailable [phone] Rosalba Pendleton APRN BUSINESS ACCOUNT LEADER Unavaila ble Rosalba Pendleton APRN BUSINESS ACCOUNT LEADER Unavaila ble Marlo Madsen MD Unavailable [phone] Abby Vasquez MD Unavailable Airam Hodges PA-C Unavailable [phone] Zain Quintana MD Unavailable [phone] Latricia Pettit PA-C Unavailable [phone] Encounter Details Date Type Department Care Team (Late st Contact Info) Description 03/17/2024 [facility] Medical Advice [facility] Gastroenterology Clinic [place] [address] [phone] Tereza Tsai MA Social History Tobacco Use Types Packs/Day [...] Assigned at Female 10/31/2021 7:59 AM MRI SPECIALIST Gender Identity Female 10/31/2021 7:59 AM MRI SPECIALIST Sexual Orientation Straight 10/31/2021 7: 59 AM MRI SPECIALIST documented as of this encounter Plan of Treatment Upcoming Encounters Date Type Department Care Team (Latest Contact Info) Description 04/25/2024 1:50 PM CDT Therapy Visit [facility] Rehabilitation Services [address] [place] [phone] [place] [address] [place] [address] 05/08/2024 PRE VISIT [facility] Neurology Clinic [address] [phone] Torri Francois MD [address] [place] [address] [phone] *-*INCOMING RECORDS*-* 05/08/2024 11:30 AM CDT Ancillary Procedure [facility] EEG [facility] [address] [phone] 05/08/2024 2:45 PM CDT Office Visit [facility] Neurology Clinic [address] [phone] Abhishek Acevedo PA-C [address] [address] Torri Francois MD [address] [place] [address] [phone] 06/07/2024 11:20 AM CDT Office Visit [facility] Gastroenterology Clinic [address] [phone] Latricia Pettit PA-C [address] [place] [address] [phone] Abby Vasquez MD [address] [place] [address] [phone] 07/06/2024 3:30 PM CDT Virtual Visit [facility] Heart [address] [phone] Marlo Madsen MD [address] [place] [address] [phone] 10/03/2024 3:15 PM MRI SPECIALIST Virtual Visit [facility] Gastroenterology Clinic [address] [phone] Latricia Pettit PA-C [address] [place] [address] [phone] 10/10/2024 8:30 AM MRI SPECIALIST Office Visit [facility] Sleep Centers [place] [address] [place] [phone] Abhishek Acevedo PA-C [address] [phone] 01/11/2025 9:00 AM CDT Virtual Visit [facility] Neurology Clinic [address] [phone] Rosalba Pendleton APRN BUSINESS ACCOUNT LEADER [address] [place] [address] documented as of this encounter Visit Diagnoses Not on filedocumented in this encounter Additional Health Concerns Assessment Noted Time PHQ-9 Depression Total Score: 12 024 12:52 PM MRI SPECIALIST documented as of this encounter Care Teams Meat And Seafood Manager Relationship Specialty Start Date End Date Monty Musa MD PCP - General Family Medicine 08/13/21 Alfonso Tang Family [facility] 08/13/21 Dayanara Bee MD [address] [place] [address] Pediatrics 12/26/14 Min Lange MD [address] [place] [address] Neurology 03/30/16 Marlo Madsen MD [address] [place] [address] 459625 Cardiology 10/27/16 Mel Buckley, RN Nurse Coordinator Physical Medicine and Rehabilitation 12/02/16 Douglas Cadet MD [address] [place] [address] Gastroenterology 08/13/21 Rosalba Pendleton APRN BUSINESS ACCOUNT LEADER [address] [place] [address]686 Nurse Practitioner Neurology 09/05/21 Rosalba Pendleton APRN BUSINESS ACCOUNT LEADER [address] [place] [address] Assigned Neuroscience Provider 11/09/21 Marlo Madsen MD [address] [place] [address] 75 [place] [address] Assigned Heart and Vascular Provider 03/14/22 Abby Vasquez MD [address] [place] [address] Gastroenterology 07/16/22 Airam Hodges PA-C [address] [place] [address] 091995 Physician Diamond Merchant Surgery 07/19/23 Zain Quintana MD [address] [place] [address] [phone] Assigned Surgical Provider 10/07/23 Latricia Pettit PA-C [address] [place] [address] 656145 Assigned Gastroenterology Provider 10/15/23 documented as of this encounter
--- OUTSIDE RECORDS SUMMARY | 2024-04-22 13:07 | XMS_ITS | Encounter Summary ---
Author Organization Ennice Address [facility] [place] [address] Care Team Providers Care Field Artillery Operations Specialist Name Role Phone Monty Musa MD Primary Care Provider Alfonso Tang Unavailable Unavailable Dayanara Bee MD Unavailable [phone] Min Lange MD Unavailable Unavailable Marlo Madsen MD Unavailable [phone] Mel Buckley RN Unavailable [phone] Douglas Cadet MD Unavailable [phone] Rosalba Pendleton APRN DEPUTY SHERIFF BUILDING GUARD Unavaila ble Rosalba Pendleton APRN DEPUTY SHERIFF BUILDING GUARD Unavaila ble Marlo Madsen MD Unavailable [phone] Abby Vasquez MD Unavailable Airam Hodges PA-C Unavailable [phone] Zain Quintana MD Unavailable [phone] Latricia Pettit PA-C Unavailable [phone] Reason for Visit * Reason Comments RECHECK Encounter Details Date Type Department Care Team (Latest Contact Info) Description 03/21/2024 2:30 PM CDT Virtual Visit [facility] [address] 4th [place] [phone] Latricia Pettit PA-C [address] [place] [phone] Chronic idiopathic constipation (Primary Dx); Pelvic floor dysfunction Social History [...] Sex Assigned at Female 10/31/2021 7:59 AM FASHION DIRECTOR [employer]Y PLAN SALES Gender Identity Female 10/31/2021 7:59 AM FASHION DIRECTOR PARTY PLAN SALES Sexual Orientation Straight 10/31/2021 7: 59 AM FASHION DIRECTOR PARTY PLAN SALES documented as of this encounter Last Filed Vital Signs Vital Sign Reading Time Taken Comments Blood Pressure - - Pulse - - Temperature - - Respiratory Rate - - Oxygen Saturation - - Inhaled Oxygen Concentration - - Weight 79.4 kg (175 lb) 03/21/2024 2:16 PM CDT Height - - Body Mass Index 28.25 03/14/2024 10:00 AM CDT documented in this encounter Patient Instructions * Patient Instructions* Latricia Pettit PA-C - 03/21/2024 2:30 PM CDT It was a pleasure meeting with you today and discussing your healthcare plan. Below is a summary ofwhat we covered: - Continued evaluation with pelvic floor therapy - Please avoid constipating medications including oral iron supplementation - Discontinue Trulance and start Linzess 290 mcg daily. Continue the remainder of your daily bowel regimen including 10 g of supplemental fiber daily fiber daily with a goal of 25+ grams daily between your supplementation and your diet, MiraLAX 2 heaping capful daily (increased to three times dailyif no bowel movement that day), magnesium oxide 1,000 mg nightly - Pending the results of your transition to Linzess if this is successful would then consider decreasing MiraLAX to 1 capful daily or magnesium to 500 mg nightly - If there is no improvement with the alternative secretagogue it may be that we need to use more than 1 medication simultaneously and could consider initiation of Amitiza to the Jeffreys Action Plan: - if no BM for 3-4 days --> trial tapwater enemas twice daily or glycerin suppositories twice daily - if no BM for 4-5 days --> trial Miralax cleanout (ok for 4-16 capfuls of Miralax - drinking one glass every 15 minutes or so) - Contact GI clinic if you do not have success with above recommendations, and then can consider therapeutic gastrograffin enema Please call my nurse Kaur ([phone]), Elisa ([phone]) with any questions or concerns. See below for any additional questions and scheduling guidelines. Sign up for Patient Education Systems: Patient Education Systems patient portal serves as a secure platform for accessing your medical records from the [facility]. Additionally, Patient Education Systems facilitates easy, timely, and securemessaging with your care team. If you have not signed up, you may do so by using the provided code or calling [phone]. Coordinating your care after your visit: There are multiple options for scheduling your follow-up care based on your provider's recommendation. How do I schedule a follow-up clinic appointment: After your appointment, you may receive scheduling assistance with the Clinic Coordinators by having a seat in the waiting room and a Urogynecology Physician will call you up to schedule. Virtual visits or after you leave the clinic: Your provider has placed a follow-up order in the Patient Education [employer] portal for scheduling your return appointment. A member of the scheduling team will contact you to schedule. [facility] Scheduling: Timely scheduling through Patient Education Systems is advised to ensure appointment availability. Call to schedule: You may schedule your follow-up appointment(s) by calling [phone], option 1. How do I schedule my endoscopy or colonoscopy procedure: If a procedure, such as a colonoscopy or upper endoscopy was ordered by your provider, the scheduling team will contact you to schedule this procedure. Or you may choose to call to schedule at [phone], option 2. Please allow 20-30 minutes when scheduling a procedure. How do I get my blood work done? To get your blood work done, you need to schedule a lab appointment at an [facility]. There are multiple ways to schedule: At the clinic: The Urogynecology Physician you meet after your visit can help you schedule a lab appointment. Patient Education Systems scheduling: Patient Education Systems offers online lab scheduling at all [facility] laboratory locations. Call to schedule: You can call [phone] to schedule your lab appointment. How do I schedule my imaging study: To schedule imaging studies, such as CT scans, ultrasounds, MRIs, or X-rays, contact Imaging Services at [phone]. How do I schedule a referral to another doctor: If your provider recommended a referral to another specialist(s), the referral order was placed by your provider. You will receive a phone call to schedule this referral, or you may choose to call the number attached to the referral to self-schedule. For Post-Visit Question(s): For any inquiries following today's visit: Please utilize Patient Education Systems messaging and allow 48 hours for reply or contact the Call Center during normal business hours at [phone], option 3. For Emergent After-hours questions, contact the On-Call GI Fellow through the [facility] at . In addition, you may contact your Nurse directly using the provided contact information. Test Results: Test results will be accessible via Patient Education Systems in compliance with the CuresAct. This means that your results will be available to you at the same time as your provider. Oftenyou may see your results before your provider does. Results are reviewed by staff within two weeks with communication follow-up. Results may be released in the patient portal prior to your care team review. Prescription Refill(s): Medication prescribed by your provider will be addressed during your visit.For future refills, please coordinate with your pharmacy. If you have not had a recent clinic visitor routine labs, for your safety, your provider may not be able to refill your prescription. Sincerely, Latricia Pettit PA-C Division of Gastroenterology, Hepatology, and Nutrition [facility] documented in this encounter Progress Notes * Latricia Pettit PA-C - 03/21/2024 2:30 PM CDT Images from the original note were not included. Virtual Visit Details Type of service: Video Visit Video Start Time: 2:30 PM Video End Time:2:49 PM Originating Location (pt. Location): Home Distant Location (provider location): Off-site Platform used for Video Visit: [facility] Gastroenterology Visit for: Latricia Hatch 1990 Reason for Visit: chief complaint Referred by: Pedro / Lady [facility] [id number] Patient Care Team: Monty Musa MD as [...] MD (Gastroenterology) Airam Hodges PA-C as Physician Self Propelled Dredge Operator (Surgery) Zain Quintana MD as Assigned Surgical Provider Latricia Pettit PA-C as Assigned Gastroenterology Provider History of Present Illness: Latricia Hatch is a 33 year old female with significant past medical history pertinent for dysautonomia, frequent migraine HAs, chronic diffuse abdominal pain, constipation, nausea, and prior adenomatous polyp who is presenting as a follow-up patient with a chief complaint of constipation/irregular bowel habits. Interval History March 21, 2024: Chief concern is that of day to day consistency and questions if the Trulance effects have waned Latricia continues to participate in physical therapy. This has been a total of 6 months. This has consistent primarily of crystal therapy with core strength exercises/pelvic floor strength exercises. Uses a vaginal wand. She is attempted to use the wand rectally with no relief. Her current bowel regimen consists of Trulance 3 mg daily with inconsistent bowel patterns. Noting one week she will stool 5/7 days and other weeks she will stool 1/7 days out of th week. Stools are described as Marks Stool Scale Type 4. This pattern is occurring cyclically typically on an every other week basis. On day 3 she will increase to 4 capfuls in the morning and if no BM then in the evening will take an additional 4 capfuls. Interval History November 24, 2023: Dr. Vasquez Since her last GI clinic visit, Ms. [...] on levothyroxine for the past few weeks Interval History October 26, 2023: Throughout September [...] of large bowel movements most consistent with Marks Stool Scale Type 4. She then will have 3-5 days without a bowelmovement. During this period has increased abdominal pains and bloating. Current regimen consistentof Ean 290mcg, heaping tablet spoon daily and 10g [...] and Dr. Vasquez prior to moving to [place] in 2017 after getting . She moved back to [place] recently and was seen by Dr. Cadet in 02/2022 for chronic constipation, abdominal pain and nausea and this life underwriter on 08/19/2022. Briefly, she was started on Linzess around 2013 for chronic constipation which improved her constipation and resulted in BMs every other day. In 2016, she moved to [place] and stopped Linzess as she felt her [...] polyps. She subsequently had another colonoscopy in [place] which she reports was normal. In early 2020, she had a colonoscopy in [place] which was reported to be negative for adenoma. We do not have these reports at this time. Esophageal Questionnaire(s) BEDQ Questionnaire No data to display No data to display Eckardt Questionnaire No data to display Promis 10 Questionnaire No data to display STUDIES & PROCEDURES: EGD: Colonoscopy: 10/2021 [facility] 11/2016 Findings: Two semi-sessile polyps were found [...] mins. IMPRESSION: Upper limits of normal for gastric [...] above. History Past Medical History: Diagnosis Date Anesthesia complication [...] Dawson MD; Location: [facility] ORTHOPEDIC SURGERY [facility] EXPLORATORY OF ABDOMEN Social History Socioeconomic History Marital status: Spouse [...] of Ulcerative Colitis No family hx of Family history reviewed and edited as appropriate Medications and Allergies: Outpatient Encounter Medications as of 03/21/2024 Medication Sig Dispense Refill atorvastatin (LIPITOR) 10 [...] Micro climate cooling vest 1 kit 0 oxyBUTYnin (DITROPAN) 5 MG tablet Take 1 tablet by mouth 2 times daily (Patient not taking: Reported on 03/21/2024) plecanatide (TRULANCE) 3 MG tablet Take 1 [...] facility-administered encounter medications on file as of 03/21/2024. Allergies Allergen Reactions Amoxicillin-Pot Clavulanate GI Disturbance Vicodin Hp [Hydrocodone-Acetaminophen] Review of systems: A full 10 point review of systems was obtained and was negative except for the pertinent positives and negatives stated within the HPI. Objective Findings: Physical Exam: Constitutional: Wt 79.4 kg (175 lb) BMI 28.25 kg/m?? General: Alert, cooperative, no distress, well-appearing [...] Medium Abdominal pain, generalized 10/05/2013 Priority: Medium Assessment and Plan Assessment/Plan: Latricia Hatch is a 33 year old female with significant past medical history pertinent for dysautonomia, frequent migraine HAs, chronic diffuse abdominal pain, constipation, nausea, and prior adenomatous polyp who is presenting as a new patient in consultation at the request of Dr. Vasquez with a chief complaint of constipation/irregular bowel habits. #Constipation #Negative Sitz Marker Test #Pelvic Floor Dysfunction Latricia has previously tried both Linzess and Amitiza with initial success however results had waned over time. Over 2022 Latricia was taking Linzess 290 mcg daily however effects had gradually waned. Shewas then started on an osmotic laxative laxatives however without results. Subsequently she was seen in office by Dr. Neva Vasquez 07/14/2023 and patient was transition to Trulance. Since she has remained on Trulance however now has concerns that the medication effects are also waning as she is now experiencing weeks with stools that are occurring almost daily followed by weeks where she is only stooling once every 6 to 7 days. Latricia's current bowel regimen consists of Trulance daily, 10 g of sup plemental fiber daily, MiraLAX 2 heaping capful daily, magnesium oxide 41557 mg nightly. Additionally, Latricia was seen by colorectal surgery 09/21/2023 who recommended completion of Sitz marker study and extended pelvic floor therapy. Sitz marker test was negative on day 5 with 2 markers remaining within the rectum. This was completed off medications which were stopped 2 days prior. She was seen in follow-up by the colorectal surgery team today would recommended continued work with the GI team/pelvic floor therapy and his surgical intervention was to be pursued down the road laparoscopic DLI would be recommended. Lastly, Latricia has also enrolled in extended pelvic floor therapy and will be transitioning to biofeedback therapy in the coming weeks. It should be of note that patient was previously noted to have history of depression and may be at risk for suicidal ideation with the use of Motegrity. If this is decided to be used in the future caution should be had. - Continued evaluation with pelvic floor therapy - Please avoid constipating medications including oral iron supplementation - Discontinue Trulance and start Linzess 290 mcg daily. Continue the remainder of your daily bowel regimen including 10 g of supplemental fiber daily fiber daily with a goal of 25+ grams daily between your supplementation and your diet, MiraLAX 2 heaping capful daily (increased to three times dailyif no bowel movement that day), magnesium oxide 1,000 mg nightly - Pending the results of your transition to Linzess if this is successful would then consider decreasing MiraLAX to 1 capful daily or magnesium to 500 mg nightly - If there is no improvement with the alternative secretagogue it may be that we need to use more than 1 medication simultaneously and could consider initiation of Amitiza to the Linzess Action Plan: - if no BM for 3-4 days --> trial tapwater enemas twice daily or glycerin suppositories twice daily - if no BM for 4-5 days --> trial Miralax cleanout (ok for 4-16 capfuls of Miralax - drinking one glass every 15 minutes or so) - Contact GI clinic if you do [...] 2026. Follow up plan: Return to clinic [address] Vasquez followed by OV with myself 6 months from today or sooneras needed. The risks and benefits of my recommendations, as well as other treatment options were discussed with the patient and any available family today. All questions were answered. Follow up: As planned above. Today, I personally spent 19 minutes in direct face to face time with the patient, of which greater than 50% of the time was spent in patient education and counseling as described above. Approximately 15 minutes were spent on indirect care associated with the patient's consultation including but not limited to review of: patient medical records to date, clinic visits,hospital records, lab results, imaging studies, procedural documentation, and coordinating care with other providers. The findings from this review are summarized in the above note. All of the above accounted for a cumulative time of 34 minutes and was performed on the date of service. The patient verbalized understanding of the plan and was appreciative for the time spent and information provided during the office visit. Latricia Pettit PA-C Division of Gastroenterology, Hepatology, and Nutrition [facility] Documentation assisted by voice recognition and documentation system. documented in this encounter Nursing Notes * Erika Crockett - 03/21/2024 2:30 PM CDT Current patient location: [address] [place] [address] Is the patient currently in the state [facility]? YES Visit mode:VIDEO If the visit is dropped, the patient can be reconnected by: VIDEO VISIT: Send to e-mail at: [email or web address] Will anyone else be joining the visit? NO (If patient encounters technical issues they should call [phone]) How would you like to obtain your AVS? MyChart Are changes needed to the allergy or medication list? No Are refills needed on medications prescribed by this physician? NO Reason for visit: DANY Crockett VVF documented in this encounter Plan of Treatment Upcoming Encounters Date Type Department Care Team (Latest Contact Info) Description 04/25/2024 1:50 PM CDT Therapy Visit [facility] [place] [address] [place] [phone] Lainey Simon, JAY [address] [place] [address] 05/08/2024 PRE VISIT [facility] [place] [address] [facility] [address] 3rd [place] [address] Torri Francois MD [address] [place] [phone] *-*INCOMING RECORDS*-* 05/08/2024 11:30 AM CDT Ancillary Procedure [facility] [address] [phone] 05/08/2024 2:45 PM CDT Office Visit [facility] [address] [phone] Abhishek Acevedo PA-C [address] [address] Torri Francois MD [address] [place] [address] [phone] 06/07/2024 11:20 AM CDT Office Visit [facility] [address] [phone] Latricia Pettit PA-C [address] [place] [address] Abby Vasquez MD [address] [place] [address] [phone] 07/06/2024 3:30 PM CDT Virtual Visit [facility] [address] [phone] Marlo Madsen MD [address] [place] [address] [phone] 10/03/2024 3:15 PM FASHION DIRECTOR PARTY PLAN SALES Virtual Visit [facility] [address] [phone] Latricia Pettit PA-C [address] [place] [phone] 10/10/2024 8:30 AM FASHION DIRECTOR PARTY PLAN SALES Office Visit [facility] [place] [address] [facility] [address] [place] [phone] Abhishek Acevedo PA-C [address] [facility] 103 [place], [place] [phone] 01/11/2025 9:00 AM CDT Virtual Visit [facility] [place] [address] [facility] 3rd [place] [address] Rosalba Pendleton, SUPERVISOR LANDSCAPE DEPUTY SHERIFF BUILDING GUARD [address] [facility] [id number] [place], [place] [address] documented as of this encounter Visit Diagnoses Diagnosis Chronic idiopathic constipation- Primary Unspecified constipation Pelvic floor dysfunction Pelvic muscle wasting documented in this encounter Additional Health Concerns Assessment Noted Time PHQ-9 Depression Total Score: 12 024 12:52 PM FASHION DIRECTOR [employer] SALES documented as of this encounter Care Teams Field Artillery Operations Specialist Relationship Specialty Start Date End Date Monty Musa MD PCP - General Family Medicine 08/13/21 Alfonso Tang Family Practice 08/13/21 Dayanara Bee MD [address] [facility] [address] [place] [address] Pediatrics 12/26/14 Min Lange MD [address] [facility] [address] [place] [address] Neurology 03/30/16 Marlo Madsen MD [address] [facility] [address] [place], [place] [address] Cardiology 10/27/16 Mel Buckley, RN Nurse Coordinator Physical Medicine and Rehabilitation 12/02/16 Douglas Cadet MD [address] [place] [address] Gastroenterology 08/13/21 Rosalba Pendleton APRN DEPUTY SHERIFF BUILDING GUARD [address] [place] [address] Nurse Practitioner Neurology 09/05/21 Rosalba Pendleton APRN DEPUTY SHERIFF BUILDING GUARD [address] [place] [address] Assigned Neuroscience Provider 11/09/21 Marlo Madsen MD [address] [place] [address] Assigned Heart and Vascular Provider 03/14/22 Abby Vasquez MD [address] [place] [address] Gastroenterology 07/16/22 Airam Hodges PA-C [address] [place] [address] Physician Self Propelled Dredge Operator Surgery 07/19/23 Zain Quintana MD [address] [place] [address] Assigned Surgical Provider 10/07/23 Latricia Pettit PA-C [address] [place] [address] Assigned Gastroenterology Provider 10/15/23 documented as of this encounter
--- OUTSIDE RECORDS SUMMARY | 2024-04-22 13:07 | XMS_ITS | Encounter Summary ---
Author Organization [place] Address [address] [facility] [place] [address] Care Team Providers Care Talent Management Specialist Name Role Phone Monty Musa MD Primary Care Provider [phone] Alfonso Tang Unavailable Unavailable Dayanara Bee MD Unavailable [phone] Min Lange MD Unavailable Unavailable Marlo Madsen MD Unavailable [phone] Mel Buckley RN Unavailable [phone] Douglas Cadet MD Unavailable [phone] Rosalba Pendleton APRN CERTIFIED OPHTHALMIC ASSISTANT Unavaila ble Rosalba Pendleton APRN CERTIFIED OPHTHALMIC ASSISTANT Unavaila ble Marlo Madsen MD Unavailable [phone] Abby Vasquez MD Unavailable Airam Hodges PA-C Unavailable [phone] Zain Quintana MD Unavailable [phone] Latricia Pettit PA-C Unavailable [phone] Encounter Details Date Type Department Care Team (Latest Contact Info) Description 03/21/2024 Travel Social History Tobacco Use Types Packs/Day [...] Sex Assigned at Female 10/31/2021 7:59 AM GARMENT SORTER Gender Identity Female 10/31/2021 7:59 AM GARMENT SORTER Sexual Orientation Straight 10/31/2021 7: 59 AM GARMENT SORTER documented as of this encounter Plan of Treatment Upcoming Encounters Date Type Department Care Team (Latest Contact Info) Description 04/25/2024 1:50 PM CDT Therapy Visit [facility] [address] [place] [phone] [place] [address] [place] [address] 05/08/2024 PRE VISIT [facility] [address] [address] Torri Francois MD [address] [place] [address] 051895 *-*INCOMING RECORDS*-* 05/08/2024 11:30 AM CDT Ancillary Procedure [facility] [address] [phone] 05/08/2024 2:45 PM CDT Office Visit [facility] [address] [address] Abhishek Acevedo, STEFANOC [address] [address] Torri Francois MD [address] [place] [address] 733635 06/07/2024 11:20 AM CDT Office Visit [facility] [address] [phone] Latricia Pettit PA-C [address] [place] [address] 654325 Abby Vasquez MD [address] [place] [address] 995375 07/06/2024 3:30 PM CDT Virtual Visit [facility] [address] [phone] Marlo Madsen MD [address] [place] [address] 351705 10/03/2024 3:15 PM GARMENT SORTER Virtual Visit [facility] [address] [phone] Latricia Pettit PA-C [address] [place] [address] [id number] 10/10/2024 8:30 AM GARMENT SORTER Office Visit [facility] [place] [address] [place] [phone] Abhishek Acevedo PA-C [address] [phone] 01/11/2025 9:00 AM CDT Virtual Visit [facility] [address] [phone] Rosalba Pendleton APRN CERTIFIED OPHTHALMIC ASSISTANT [address] [place] [address] [id number] [place], [place] 513385 documented as of this encounter Visit Diagnoses Not on filedocumented in this encounter Additional Health Concerns Assessment Noted Time PHQ-9 Depression Total Score: 12 024 12:52 PM GARMENT SORTER documented as of this encounter Care Teams Talent Management Specialist Relationship Specialty Start Date End Date Monty Musa MD PCP - General Family Medicine 08/13/21 Alfonso Tang Family [facility] 08/13/21 Dayanara Bee MD [address] [phone] Pediatrics 12/26/14 Min Lange MD [address] [address] Neurology 03/30/16 Marlo Madsen MD [address] [place] [address] [phone] Cardiology 10/27/16 Mel Buckley, RN Nurse Coordinator Physical Medicine and Rehabilitation 12/02/16 Douglas Cadet MD [address] [place] [address] Gastroenterology 08/13/21 Rosalba Pendleton APRN CERTIFIED OPHTHALMIC ASSISTANT [address] [place] [address] Nurse Practitioner Neurology 09/05/21 Rosalba Pendleton APRN CERTIFIED OPHTHALMIC ASSISTANT [address] [address] Assigned Neuroscience Provider 11/09/21 Marlo Madsen MD [address] [place] [address] 75 [place] [address] Assigned Heart and Vascular Provider 03/14/22 Abby Vasquez MD [address] [place] [address] Gastroenterology 07/16/22 Airam Hodges PA-C [address] [place] [address] Physician Steel Buffer Surgery 07/19/23 Zain Quintana MD [address] [place] [address] Assigned Surgical Provider 10/07/23 Latricia Pettit PA-C [address] [place] [address] Assigned Gastroenterology Provider 10/15/23 documented as of this encounter
--- OUTSIDE RECORDS SUMMARY | 2024-04-22 13:07 | XMS_ITS | Encounter Summary ---
Author Organization [place] Address [address] [place] [address] Care Team Providers Care Agile Scrum Master Name Role Phone Monty Musa MD Primary Care Provider Alfonso Tang Unavailable Unavailable Dayanara Bee MD Unavailable [phone] Min Lange MD Unavailable Unavailable Marlo Madsen MD Unavailable [phone] Mel Buckley RN Unavailable [phone] Douglas Cadet MD Unavailable [phone] Rosalba Pendleton APRN GAS OR PETROLEUM OPERATOR Unavaila ble Rosalba Pendleton APRN GAS OR PETROLEUM OPERATOR Unavaila ble Marlo Madsen MD Unavailable [phone] Abby Vasquez MD Unavailable Airam Hodges PA-C Unavailable [phone] Zain Quintana MD Unavailable [phone] Latricia Pettit PA-C Unavailable [phone] Encounter Details Date Type Department Care Team (Latest Contact Info) Description 03/13/2024 Travel Social History Tobacco Use Types Packs/Day [...] Sex Assigned at Female 10/31/2021 7:59 AM LIBRARY TECHNICAL ASSISTANT Gender Identity Female 10/31/2021 7:59 AM LIBRARY TECHNICAL ASSISTANT Sexual Orientation Straight 10/31/2021 7: 59 AM LIBRARY TECHNICAL ASSISTANT documented as of this encounter Plan of Treatment Upcoming Encounters Date Type Department Care Team (Latest Contact Info) Description 04/25/2024 1:50 PM CDT Therapy Visit [facility] [address] [place] [phone] [place] [address] [place] [address] 05/08/2024 PRE VISIT [facility] Neurology [facility] [address] [phone] Torri Francois MD [address] [place] [address] 300755 *-*INCOMING RECORDS*-* 05/08/2024 11:30 AM CDT Ancillary Procedure [facility] [address] [phone] 05/08/2024 2:45 PM CDT Office Visit [facility] [address] [phone] Abhishek Acevedo, STEFANOC [address] [address] Torri Francois MD [address] [place] [address] [phone] 06/07/2024 11:20 AM CDT Office Visit [facility] [address] [phone] Latricia Pettit PA-C [address] [place] [address] 186595 Abby Vasquez MD [address] [place] [address] 039405 07/06/2024 3:30 PM CDT Virtual Visit [facility] Heart [address] [phone] Marlo Madsen MD [address] [place] [address] 754965 10/03/2024 3:15 PM LIBRARY TECHNICAL ASSISTANT Virtual Visit [facility] [address] [phone] Latricia Pettit PA-C [address] [place] [address] [phone] 10/10/2024 8:30 AM LIBRARY TECHNICAL ASSISTANT Office Visit [facility] [place] [address] [place] [phone] Abhishek Acevedo PA-C [address] [phone] 01/11/2025 9:00 AM CDT Virtual Visit [facility] Neurology [facility] [address] [phone] Rosalba Pendleton APRN GAS OR PETROLEUM OPERATOR [address] [place] [address] [id number] [place], [place] 318975 documented as of this encounter Visit Diagnoses Not on filedocumented in this encounter Additional Health Concerns Assessment Noted Time PHQ-9 Depression Total Score: 12 024 12:52 PM LIBRARY TECHNICAL ASSISTANT documented as of this encounter Care Teams Agile Scrum Master Relationship Specialty Start Date End Date Monty Musa MD PCP - General Family Medicine 08/13/21 Alfonso Tang Family Practice 08/13/21 Dayanara Bee MD [address] 022045 Pediatrics 12/26/14 Min Lange MD [address] [address] Neurology 03/30/16 Marlo Madsen MD [address] [place] [address] 290305 Cardiology 10/27/16 Mel Buckley, RN Nurse Coordinator Physical Medicine and Rehabilitation 12/02/16 Douglas Cadet MD [address] [place] [address] Gastroenterology 08/13/21 Rosalba Pendleton APRN GAS OR PETROLEUM OPERATOR [address] [place] [address] Nurse Practitioner Neurology 09/05/21 Rosalba Pendleton APRN GAS OR PETROLEUM OPERATOR [address] [address] Assigned Neuroscience Provider 11/09/21 Marlo Madsen MD [address] [place] [address] 75 [place] [address] Assigned Heart and Vascular Provider 03/14/22 Abby Vasquez MD [address] [place] [address] Gastroenterology 07/16/22 Airam Hodges PA-C [address] [place] [address] Physician Patrol Supervisor Surgery 07/19/23 Zain Quintana MD [address] [place] [address] Assigned Surgical Provider 10/07/23 Latricia Pettit PA-C [address] [place] [address] Assigned Gastroenterology Provider 10/15/23 documented as of this encounter
--- OUTSIDE RECORDS SUMMARY | 2024-04-22 13:07 | XMS_ITS | Encounter Summary ---
Author Organization [place] Address [address] [facility] [place] [address] Care Team Providers Care Cage Clerk Name Role Phone Monty Musa MD Primary Care Provider [phone] Alfonso Tang Unavailable Unavailable Dayanara Bee MD Unavailable [phone] Min Lange MD Unavailable Unavailable Marlo Madsen MD Unavailable [phone] Mel Buckley RN Unavailable [phone] Douglas Cadet MD Unavailable [phone] Rosalba Pendleton APRN SPRING UP SUPERVISOR Unavaila ble Rosalba Pendleton APRN SPRING UP SUPERVISOR Unavaila ble Marlo Madsen MD Unavailable [phone] Abby Vasquez MD Unavailable Airam Hodges PA-C Unavailable [phone] Zain Quintana MD Unavailable [phone] Latricia Pettit PA-C Unavailable [phone] Reason for Visit * Reason Comments Medication Refill Encounter Details Date Type Department Care Team (Late st Contact Info) Description 04/01/2024 [facility] [address] [phone] Marlo Madsen MD [address] [place] [address] [phone] Medication Refill Social History Tobacco Use Types [...] Assigned at Female 10/31/2021 7:59 AM NURSING CONSULTANT Gender Identity Female 10/31/2021 7:59 AM NURSING CONSULTANT Sexual Orientation Straight 10/31/2021 7: 59 AM NURSING CONSULTANT documented as of this encounter Miscellaneous Notes * Telephone Encounter - Ananya Tolliver RN - 04/05/2024 10:55 AM CDT Images from the original note were not included. midodrine (PROAMATINE) 5 MG tablet 270 tablet 1 06/04/2023 -- No Sig: Take 2 tablets (10mg) in the morning, and 1 tablet (5mg) in the afternoon. Do not take within 4 hours lying down Last Office Visit : 04/27/2023 [facility] Heart [facility] Future Office visit: 07/06/2024 3:30 PM (30 min) Hugh Arrive by: 3:15 PM RETURN EP Rfl Status: Pending Review [facility] Marlo Madsen MD Routing refill request to provider for review/approval because: Medication not on protocol (for Med Refill Team). documented in this encounter Plan of Treatment Upcoming Encounters Date Type Department Care Team (Latest Contact Info) Description 04/25/2024 1:50 PM CDT Therapy Visit [facility] Rehabilitation Services [address] [place] [phone] [place] [address] [place] [address] 05/08/2024 PRE VISIT [facility] Neurology Clinic [address] [phone] Torri Francois MD [address] [place] [address] 071475 *-*INCOMING RECORDS*-* 05/08/2024 11:30 AM CDT Ancillary Procedure [facility] [address] [phone] 05/08/2024 2:45 PM CDT Office Visit [facility] Neurology [address] [phone] Abhishek Acevedo, KEILA [address] [phone] Torri Francois MD [address] [place] [address] 005055 06/07/2024 11:20 AM CDT Office Visit [facility] Gastroenterology Clinic [address] [phone] Latricia Pettit PAJyoti [address] [place] [address] 730775 Abby Vasquez MD [address] [place] [address] 322065 07/06/2024 3:30 PM CDT Virtual Visit [facility] Heart Clinic [address] [phone] Marlo Madsen MD [address] [place] [address] 394605 10/03/2024 3:15 PM NURSING CONSULTANT Virtual Visit [facility] Gastroenterology Clinic [address] 4th [place] [phone] Latricia Pettit PA-C [address] [place] [address] 372765 10/10/2024 8:30 AM NURSING CONSULTANT Office Visit [facility] [place] [address] [phone] Abhishek Acevedo PA-C [address] [phone] 01/11/2025 9:00 AM CDT Virtual Visit [facility] Neurology Clinic [address]rd [place] [phone] Rosalba Pendleton APRN [address] [id number] [place], [place] [address] documented as of this encounter Visit Diagnoses Diagnosis Syncope and collapse Palpitations Vasovagal syncope Syncope and collapse documented in this encounter Additional Health Concerns Assessment Noted Time PHQ-9 Depression Total Score: 12 024 12:52 PM NURSING CONSULTANT documented as of this encounter Care Teams Cage Clerk Relationship Specialty Start Date End Date Monty Musa MD PCP - General Family Medicine 08/13/21 Alfonso Tang Family Practice 08/13/21 Dayanara Bee MD [address] [address] Pediatrics 12/26/14 Min Lange MD [address] [address] Neurology 03/30/16 Marlo Madsen MD [address] [place] [address] Cardiology 10/27/16 Mel Buckley, RN Nurse Coordinator Physical Medicine and Rehabilitation 12/02/16 Douglas Cadet MD [address] [place] [address] Gastroenterology 08/13/21 Rosalba Pendleton APRN SPRING UP SUPERVISOR [address] [place] [address] Nurse Practitioner Neurology 09/05/21 Rosalba Pendleton APRN SPRING UP SUPERVISOR [address] [place] [address] Assigned Neuroscience Provider 11/09/21 Marlo Madsen MD [address] [place] [address] Assigned Heart and Vascular Provider 03/14/22 Abby Vasquez MD [address] [place] [address] Gastroenterology 07/16/22 Airam Hodges PA-C [address] [place] [address] Physician Pin Inserter Regulator Surgery 07/19/23 Zain Quintana MD [address] [place] [address] Assigned Surgical Provider 10/07/23 Latricia Pettit PA-C [address] [place] [address] 313275 Assigned Gastroenterology Provider 10/15/23 documented as of this encounter
--- OUTSIDE RECORDS SUMMARY | 2024-04-22 13:07 | XMS_ITS | Encounter Summary ---
Author Organization [place] Address [facility] [place] [address] Care Team Providers Care Protective Signal Operator Name Role Phone Monty Musa MD Primary Care Provider Alfonso Tang Unavailable Unavailable Dayanara Bee MD Unavailable [phone] Min Lange MD Unavailable Unavailable Marlo Madsen MD Unavailable [phone] Mel Buckley RN Unavailable [phone] Douglas Cadet MD Unavailable [phone] Rosalba Pendleton APRN RESERVATION SALES AGENT Unavaila ble Rosalba Pendleton APRN RESERVATION SALES AGENT Unavaila ble Marlo Madsen MD Unavailable [phone] Abby Vasquez MD Unavailable Airam Hodges PA-C Unavailable [phone] Zain Quintana MD Unavailable [phone] Latricia Pettit PA-C Unavailable [phone] Reason for Visit * Reason Onset Date Comments Appointment 03/27/2024 Follow up Encounter Details Date Type Department Care Team (Late st Contact Info) Description 03/27/2024 Telephone [facility] Neurology Clinic [place] 384239 [facility] 3rd [place] [address] Rosalba Pendleton APRN RESERVATION SALES AGENT [address] [facility] [id number] [place] [address] Appointment (Follow up) Social History Tobacco Use Types Packs/Day Years [...] Assigned at Female 10/31/2021 7:59 AM WEB METHODS DEVELOPER Gender Identity Female 10/31/2021 7:59 AM WEB METHODS DEVELOPER Sexual Orientation Straight 10/31/2021 7: 59 AM WEB METHODS DEVELOPER documented as of this encounter Miscellaneous Notes * Telephone Encounter - Nishi Norton - 03/29/2024 12:15 PM CDT Patient confirmed scheduled appointment: Date: 01/11/25 Time: 9:00 am Visit type: Return Headache Provider: Rosalba Pendleton [facility]: [facility] Testing/imaging: Additional notes: Nishi Norton on 03/29/2024 at 12:16 PM * Telephone Encounter - Ximena Belcher - 03/27/2024 2:09 PM CDT Left Voicemail (1st Attempt) and Sent Mychart (1st Attempt) for the patient to call back and schedule the following: Appointment type: Return headache Provider: Helder Navarrete CNp Return date: January 2025 Specialty phone number: [phone] Additional appointment(s) needed: n/a Additonal Notes: WQ- appointment request Ximena Belcher on 03/27/2024 at 2:09 PM documented in this encounter Plan of Treatment Upcoming Encounters Date Type Department Care Team (Latest Contact Info) Description 04/25/2024 1:50 PM CDT Therapy Visit [facility] Rehabilitation Services [address] [place] [phone] [place] [address] [place] [address] 05/08/2024 PRE VISIT [facility] Neurology Clinic [address] [address] Torri Francois MD [address] [place] [address] *-*INCOMING RECORDS*-* 05/08/2024 11:30 AM CDT Ancillary Procedure [facility] [address] [phone] 05/08/2024 2:45 PM CDT Office Visit [facility] Neurology Clinic [address] [phone] Abhishek Acevedo PA-C [address] [address] Torri Francois MD [address] [place] [address] [phone] 06/07/2024 11:20 AM CDT Office Visit [facility] Gastroenterology Clinic [address] [phone] Latricia Pettit PA-C [address] [place] [address] 722655 Abby Vasquez MD [address] [place] [address] 007495 07/06/2024 3:30 PM CDT Virtual Visit [facility] Heart Clinic [address] [phone] Marlo Madsen MD [address] [place] [address] 547755 10/03/2024 3:15 PM WEB METHODS DEVELOPER Virtual Visit [facility] Gastroenterology Clinic [address] [place] [phone] Latricia Pettit PA-C [address] [place] [address] [phone] 10/10/2024 8:30 AM WEB METHODS DEVELOPER Office Visit [facility] [place] 6363 [facility] 103 [place] [phone] Abhishek Acevedo PA-C 6363 [facility] 103 [place] [address] 01/11/2025 9:00 AM CDT Virtual Visit [facility] Neurology Clinic [address] [place] [phone] Rosalba Pendleton, MAXIMILIANO [address] GO8578MU [place], [place] [address] documented as of this encounter Visit Diagnoses Not on filedocumented in this encounter Additional Health Concerns Assessment Noted Time PHQ-9 Depression Total Score: 12 024 12:52 PM WEB METHODS DEVELOPER documented as of this encounter Care Teams Protective Signal Operator Relationship Specialty Start Date End Date Monty Musa MD PCP - General Family Medicine 08/13/21 Alfonso Tang NPI: [id number] [place] [address] 08/13/21 Dayanara Bee MD [address] [address] Pediatrics 12/26/14 Min Lange MD [address] [address] Neurology 03/30/16 Marlo Madsen MD [address] [place] [address] Cardiology 10/27/16 Mel Buckley, RN Nurse Coordinator Physical Medicine and Rehabilitation 12/02/16 Douglas Cadet MD [address] [place] [address] Gastroenterology 08/13/21 Rosalba Pendleton APRN RESERVATION SALES AGENT [address] [place] [address] 580165 Nurse Practitioner Neurology 09/05/21 Rosalba Pendleton APRN RESERVATION SALES AGENT [address] [place] [address] Assigned Neuroscience Provider 11/09/21 Marlo Madsen MD [address] [place] [address] 442385 Assigned Heart and Vascular Provider 03/14/22 Abby Vasquez MD [address] [place] [address] Gastroenterology 07/16/22 Airam Hodges PA-C 500 [place] [address] Physician Lumber Handler Surgery 07/19/23 Zain Quintana MD 500 [place] [address] Assigned Surgical Provider 10/07/23 Latricia Pettit PA-C 909 [place] [address] Assigned Gastroenterology Provider 10/15/23 documented as of this encounter
--- OUTSIDE RECORDS SUMMARY | 2024-04-22 13:07 | XMS_ITS | Encounter Summary ---
Author Organization [place] Address [facility] [place] [address] Care Team Providers Care Bobbin Presser Name Role Phone Monty Musa MD Primary Care Provider Alfonso Tang Unavailable Unavailable Dayanara Bee MD Unavailable [phone] Min Lange MD Unavailable Unavailable Marlo Madsen MD Unavailable [phone] Mel Buckley RN Unavailable [phone] Douglas Cadet MD Unavailable Rosalba Pendleton APRN CIRCUS TRAIN SUPERVISOR Unavaila ble Rosalba Pendleton APRN CIRCUS TRAIN SUPERVISOR Unavaila ble Marlo Madsen MD Unavailable [phone] Abby Vasquez MD Unavailable Airam Hodges PA-C Unavailable [phone] Zain Quintana MD Unavailable [phone] Latricia Pettit PA-C Unavailable [phone] Encounter Details Date Type Department Care Team (Late st Contact Info) Description 03/27/2024 [facility] [place] [facility] Neurology Clinic [place] [address] [facility] [address] [address] Nishi Norton Social History Tobacco Use Types Packs/Day Years [...] Sex Assigned at Female 10/31/2021 7:59 AM PORCELAIN SLUSHER Gender Identity Female 10/31/2021 7:59 AM PORCELAIN SLUSHER Sexual Orientation Straight 10/31/2021 7: 59 AM PORCELAIN SLUSHER documented as of this encounter Plan of Treatment Upcoming Encounters Date Type Department Care Team (Latest Contact Info) Description 04/25/2024 1:50 PM CDT Therapy Visit [facility] Rehabilitation Services [address] [place] [phone] [place] [address] [place] [address] 05/08/2024 PRE VISIT [facility] Neurology Clinic [address] [address] Torri Francois MD [address] [place] [address] 014875 *-*INCOMING RECORDS*-* 05/08/2024 11:30 AM CDT Ancillary Procedure [facility] EEG [facility] Outpatient [facility] [address] [phone] 05/08/2024 2:45 PM CDT Office Visit [facility] Neurology Clinic [address] [address] Abhishek Acevedo PA-C [address] [address] oTrri Francois MD [address] [place] [address] [phone] 06/07/2024 11:20 AM CDT Office Visit [facility] Gastroenterology Clinic [address] [phone] Latricia Pettit PA-C [address] [place] [address] [phone] Abby Vasquez MD [address] [place] [address] [phone] 07/06/2024 3:30 PM CDT Virtual Visit [facility] Heart [address] [phone] Marlo Madsen MD [address] [place] [address] [phone] 10/03/2024 3:15 PM PORCELAIN SLUSHER Virtual Visit [facility] Gastroenterology Clinic [address] [phone] Latricia Pettit PA-C [address] [place] [address] 618135 10/10/2024 8:30 AM PORCELAIN SLUSHER Office Visit [facility] Sleep Centers [place] [phone] [address] [phone] Abhishek Acevedo PA-C [address] [phone] 01/11/2025 9:00 AM CDT Virtual Visit [facility] Neurology Clinic [address] [phone] Rosalba Pendleton APRN CIRCUS TRAIN SUPERVISOR [address] [place] [address] documented as of this encounter Visit Diagnoses Not on filedocumented in this encounter Additional Health Concerns Assessment Noted Time PHQ-9 Depression Total Score: 12 024 12:52 PM PORCELAIN SLUSHER documented as of this encounter Care Teams Bobbin Presser Relationship Specialty Start Date End Date Monty Musa MD PCP - General Family Medicine 08/13/21 Alfonso Tang Family [facility] 08/13/21 Dayanara Bee MD [address] [place] [address] Pediatrics 12/26/14 Min Lange MD [address] [place] [address] Neurology 03/30/16 Marlo Madsen MD [address] [place] [address] [phone] Cardiology 10/27/16 Mel Buckley, RN Nurse Coordinator Physical Medicine and Rehabilitation 12/02/16 Douglas Cadet MD [address] [place] [address] Gastroenterology 08/13/21 Rosalba Pendleton APRN CIRCUS TRAIN SUPERVISOR [address] [place] [address] [phone] Nurse Practitioner Neurology 09/05/21 Rosalba Pendleton APRN CIRCUS TRAIN SUPERVISOR [address] [place] [address] Assigned Neuroscience Provider 11/09/21 Marlo Madsen MD [address] [place] [address] Assigned Heart and Vascular Provider 03/14/22 Abby Vasquez MD [address] [place] [address] Gastroenterology 07/16/22 Airam Hodges PA-C [address] [place] [address] [phone] Physician Senior Dot Net Developer Surgery 07/19/23 Zain Quintana MD [address] [place] [address] [phone] Assigned Surgical Provider 10/07/23 Latricia Pettit PA-C [address] [place] [address] 922805 Assigned Gastroenterology Provider 10/15/23 documented as of this encounter
--- OUTSIDE RECORDS SUMMARY | 2024-04-22 13:08 | XMS_ITS | Encounter Summary ---
Author Organization [place] Address [address] [facility] [place] [address] Care Team Providers Care Group Product Manager Name Role Phone Monty Musa MD Primary Care Provider Alfonso Tang Unavailable Unavailable Dayanara Bee MD Unavailable [phone] Min Lange MD Unavailable Unavailable Marlo Madsen MD Unavailable [phone] Mel Buckley RN Unavailable [phone] Douglas Cadet MD Unavailable [phone] Rosalba Pendleton APRN ANIMAL CRUELTY INVESTIGATION SUPERVISOR Unavaila ble Rosalba Pendleton APRN ANIMAL CRUELTY INVESTIGATION SUPERVISOR Unavaila ble Marlo Madsen MD Unavailable [phone] Abby Vasquez MD Unavailable Airam Hodges PA-C Unavailable [phone] Zain Quintana MD Unavailable [phone] Latricia Pettit PA-C Unavailable [phone] Reason for Referral * Medication Prior Authorization - Authorized Specialty Diagnoses / Procedures Referred By Contac t Referred To Contact Diagnoses Migraine without aura and without status migrainosus, not intractable Rosalba Pendleton APRN ANIMAL CRUELTY INVESTIGATION SUPERVISOR [address] [place] [address] Referral ID Status Reason Start Date Expiration Date V isits Requested Visits Authorized [id number] Authorized 01/19/2024 09/12/2024 1 1 Electronically signed by Rosalba Pendleton APRN ANIMAL CRUELTY INVESTIGATION SUPERVISOR at 01/13/2024 10:18 AM CDT * Medication Prior Authorization - Authorized Specialty Diagnoses / Procedures Referred By Contac t Referred To Contact Diagnoses Intractable 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 Rosalba Pendleton APRN ANIMAL CRUELTY INVESTIGATION SUPERVISOR [address] [place] [address] Referral ID Status Reason Start Date Expiration Date V isits Requested Visits Authorized [id number] Authorized 01/13/2024 07/15/2024 1 1 Electronically signed by Rosalba Pendleton APRN ANIMAL CRUELTY INVESTIGATION SUPERVISOR at 01/13/2024 10:16 AM CDT Reason for Visit * Reason Comments Follow Up Encounter Details Date Type Department Care Team (Late st Contact Info) Description 01/13/2024 10:00 AM CDT Virtual Visit [facility] Neurology Clinic [address] 3rd [place] [phone] Rosalba Pendleton APRN ANIMAL CRUELTY INVESTIGATION SUPERVISOR [address] [place] [address] Intractable 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; Migraine without aura and without status migrainosus, not intractable Social History Tobacco Use Types Packs/Day Years [...] Sex Assigned at Female 10/31/2021 7:59 AM WEIGH AND CHARGE WORKER Gender Identity Female 10/31/2021 7:59 AM WEIGH AND CHARGE WORKER Sexual Orientation Straight 10/31/2021 7: 59 AM WEIGH AND CHARGE WORKER documented as of this encounter Last Filed Vital Signs Vital Sign Reading Time Taken Comments Blood Pressure - - Pulse - - Temperature - - Respiratory Rate - - Oxygen Saturation - - Inhaled Oxygen Concentration - - Weight 82.6 kg (182 lb) 01/13/2024 9:43 AM CDT Height 167.6 cm (5' 5.98) 01/13/2024 9:43 AM CD T Body Mass Index 29.39 01/13/2024 9:43 AM CDT documented in this encounter Patient Instructions * Patient Instructions* Rosalba Pendleton APRN CNP - 01/13/2024 10:00 AM CDT Follow-up in a year or sooner if needed documented in this encounter Progress Notes * Rosalba Pendleton APRN CNP - 01/13/2024 10:00 AM CDT Images from the original note were not included. Virtual Visit Details Type of service: Video Visit Originating Location (pt. Location): Home Distant Location (provider location): Off-site Platform used for Video Visit: [facility] Headache Neurology Progress Note January 13, 2024 Subjective: Latricia Hatch returns for follow up of chronic migraine treatment Last visit 07/15/2023, see note for details Patient is a well-established in our headache clinic. Patient was seen by Dr. Lange in 2016 and neurologist for chronic migraines before moving to [facility] neurology to continue migraine care from 2017 until 2021 when patientreturned back to our neurology clinic to continue her headache care. Patient was started on Aimovig by outside neurologist in 2019 but was of Aimovig for about a year and headaches back to 2021 headache days per months and duration 24 to 48 hours with missing events and daily activities. Patient was restarted on Aimovig after her initial visit in 2021. Patient has been taking Aimovig since 2021 without any side effects and with evident improvement in migraine treatment. Today patient reports that she has been doing good. Migraines as not as debilitating and can function thru. May be 2 migraines /month not able to function and need to lay down. Thinks Aimovig has been helpful and at least 50% in headache reduction and no side effects. Prior to Aimovig 10 migraines /month could not function Zavegepant -helpful a third of the times but it better than nothing. Side effects-sore throat feeling/post nasal drainage and not pleasant after taste. Would like to stop it -does not feel it was to continue due to minimal effect. Prochlorperazine takes it 1-2/month /ondansetron takes it 8/month helpful with the nausea. Typically faster relief from ondansetron odt and no side effects. Zolmitriptan worked 50-60 % of the time and no side effects. Headache treatment tried/current Compazine as needed Aimovig-currently on and helpful zavegepant -minimum benefit and not worth to continue Ondansetron as needed and helpful Retrial of zolmitriptan at last visit in March 2023 and zolmitriptan works half the time Sumatriptan oral and injectable did not work Eletriptan -did not work Rizatriptan-did not work migranal nasal -no help Naratriptan -did not work Zolmitriptan -best response and helpful Prochlorperazine works for the nausea but prefers ondansetron -works well Ubrelvy did not work Nurtec-no effect Topamax, zonisamide, Depakote and gabapentin-did not help Venlafaxine in the past-did not help Currently on duloxetine Botox -a little bit improvement but not much Patient was seen by sleep medicine on 09/15/2023 -note reviewed. Sleep study -pending Objective: Vitals: Ht 1.676 m (5' 5.98) Wt 82.6 kg (182 lb) BMI 29.39 kg/m?? General: Cooperative, NAD Neurologic: Mental Status: Fully alert, attentive and oriented. Speech clear and fluent. Cranial Nerves: Facial movements symmetric. Motor: No abnormal movements. Pertinent Investigations: Brain MRI in 2021-negative Head CT in 2013 negative 04/02/2023 8:42 AM 07/15/2023 8:41 AM 01/13/2024 9:34 AM HIT-6 When you have headaches, how often is the pain severe 11 11 10 How often do headaches limit your ability to do usual daily activities including household work, work, school, or social activities? 10 10 10 When you have a headache, how often do you wish you could lie down? 13 11 11 In the past 4 weeks, how often have you felt too tired to do work or daily activities because of your headaches 10 10 10 In the past 4 weeks, how often have you felt fed up or irritated because of your headaches 10 10 8 In the past 4 weeks, how often did headaches limit your ability to concentrate on work or daily activities 10 10 10 HIT-6 Total Score 64 62 59 04/02/2023 8:44 AM 07/15/2023 8:43 AM 01/13/2024 9:36 AM MIDAS - in the past three months: On how many days did you miss work or school because of your headaches? 12 6 2 How many days was your productivity at work or school reduced by half or more because of your headaches? 15 5 6 On how many days did you not do household work because of your headaches? 15 6 6 How many days was your productivity in household work reduced by half or more because of your headaches? 15 2 5 On how many days did you miss family, social, or leisure activities because of your headaches? 12 15 On how many days did you have a headache? 30 40 20 On a scale of 0-10, on average how painful were these headaches? 6 5 6 MIDAS Score 69 (IV - Severe Disability) 20 (III - Moderate Disability) 24 (IV - Severe Disability) Assessment/Plan: Latricia Hatch is a 33 year old with longstanding history of migraine headaches. No new headache symptoms reported and migraines appear to be reduced by at least 50% with Aimovig, no side effects reported. No new changes to the treatment plan. Prescription refills for Aimovig, zolmitriptan and prochlorperazine were provided and sent to patient's pharmacy. Patient is happy with her current treatment and thinks there is an improvement with current treatment plan. Plan: Continue Aimovig for migraine prevention Rescue treatment Prochlorperazine and/or ondansetron as needed for migraine symptoms zolmitriptan as needed for migraine rescue Follow up in a year if stable or sooner if needed The longitudinal plan of care for Latricia was addressed during this visit. Due to the added complexity in care, I will continue to support Latricia in the subsequent management of chronic migraines and with the ongoing continuity of care of this condition. I discussed all my recommendations with Latricia Jose Holden who verbalizes understanding and comfortable with the plan. 26 minutes spent on the date of the encounter doing video access, chart review, results review, meds review, treatment plan, documentation and further activities as noted above Rosalba Pendleton APRN, ANIMAL CRUELTY INVESTIGATION SUPERVISOR [facility] Headache certified [facility] Neurology Clinic documented in this encounter Nursing Notes * Mikala Pierce - 01/13/2024 10:00 AM CDT Is the patient currently in the state of [place]? YES Visit mode:VIDEO If the visit is dropped, the patient can be reconnected by: VIDEO VISIT: Text to cell phone: Telephone Information: Will anyone else be joining the visit? NO (If patient encounters technical issues they should call [phone] :[phone]) How would you like to obtain your AVS? MyChart Are changes needed to the allergy or medication list? No Are refills needed on medicatons prescribed by this physician? YES Reason for visit: Follow Up Mikala Pierce VVF documented in this encounter Plan of Treatment Upcoming Encounters Date Type Department Care Team (Latest Contact Info) Description 04/25/2024 1:50 PM CDT Therapy Visit [address] [place] [address] [place] [address] [place] [address] 05/08/2024 PRE VISIT [facility] Neurology Clinic [address] [phone] Torri Francois MD [address] [place] [address] [phone] *-*INCOMING RECORDS*-* 05/08/2024 11:30 AM CDT Ancillary Procedure [facility] EEG [facility] Outpatient [facility] [address] [phone] 05/08/2024 2:45 PM CDT Office Visit [facility] Neurology Clinic [address] [phone] Abhishek Acevedo PA-C [address] [address] Torri Francois MD [address] [place] [address] [phone] 06/07/2024 11:20 AM CDT Office Visit [facility] Gastroenterology Clinic [address] [phone] Latricia Pettit PA-C [address] [place] [address] [phone] Abby Vasquez MD [address] [place] [address] 07/06/2024 3:30 PM CDT Virtual Visit [facility] Heart Clinic [address] [phone] Marlo Madsen MD [address] [place] [address] [phone] 10/03/2024 3:15 PM WEIGH AND CHARGE WORKER Virtual Visit [facility] Gastroenterology Clinic [address] 4th [place] [phone] Latricia Pettit PA-C [address] [place] [address] 325285 10/10/2024 8:30 AM WEIGH AND CHARGE WORKER Office Visit [facility] Sleep Centers [place] [address] [facility] [address] [place] [phone] Abhishek Acevedo PA-C [facility] [address] [place], [place] [phone] 01/11/2025 9:00 AM CDT Virtual Visit [facility] Neurology Clinic [address] [place] [phone] Rosalba Pendleton, COMPUTER NETWORKER ANIMAL CRUELTY INVESTIGATION SUPERVISOR [address] [place] [address] [id number] [place], [place] [phone] documented as of this encounter Visit Diagnoses Diagnosis Intractable 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 Chronic migraine without aura, with intractable migraine, so stated, without mention of status migrainosus Migraine without aura and without status migrainosus, not intractable Migraine without aura, without mention of intractable migraine without mention of status migrainosus documented in this encounter Additional Health Concerns Assessment Noted Time PHQ-9 Depression Total Score: 024 12:52 PM WEIGH AND CHARGE WORKER documented as of this encounter Care Teams Group Product Manager Relationship Specialty Start Date End Date Monty Musa MD PCP - General Family Medicine 08/13/21 Alfonso Tang Family [facility] 08/13/21 Dayanara Bee MD [address] [place] [address] 75 [place], [place] [phone] Pediatrics 12/26/14 Min Lange MD [address] [address] Neurology 03/30/16 Marlo Madsen MD [address] [place] [address] Cardiology 10/27/16 Mel Buckley, RN Nurse Coordinator Physical Medicine and Rehabilitation 12/02/16 Douglas Cadet MD [address] [place] [address] 350765 Gastroenterology 08/13/21 Rosalba Pendleton APRN ANIMAL CRUELTY INVESTIGATION SUPERVISOR [address] [place] [address] [phone] Nurse Practitioner Neurology 09/05/21 Rosalba Pendleton APRN ANIMAL CRUELTY INVESTIGATION SUPERVISOR [address] [place] [address]892 Assigned Neuroscience Provider 11/09/21 Marlo Madsen MD [address] [place] [address] Assigned Heart and Vascular Provider 03/14/22 Abby Vasquez MD [address] [place] [address] [phone] Gastroenterology 07/16/22 Airam Hodges PA-C [address] [place], [place] 779135 Physician Chip Unloader Surgery 07/19/23 Zain Quintana MD [address] [place] [address] 054115 Assigned Surgical Provider 10/07/23 Latricia Pettit PA-C [address] [place] [address] Assigned Gastroenterology Provider 10/15/23 documented as of this encounter
--- OUTSIDE RECORDS SUMMARY | 2024-04-22 13:08 | XMS_ITS | Encounter Summary ---
Author Organization [place] Address [address] [facility] [place] [address] Care Team Providers Care Attendant Sales Name Role Phone Monty Musa MD Primary Care Provider Alfonso Tang Unavailable Unavailable Dayanara Bee MD Unavailable [phone] Min Lange MD Unavailable Unavailable Marlo Madsen MD Unavailable [phone] Mel Bucklye RN Unavailable [phone] Douglas Cadet MD Unavailable [phone] Rosalba Pendleton APRN RADIOLOGY SUPERVISOR Unavaila ble Rosalba Pendleton APRN RADIOLOGY SUPERVISOR Unavaila ble Marlo Madsen MD Unavailable [phone] Abby Vasquez MD Unavailable Airam Hodges PA-C Unavailable [phone] Zain Quintana MD Unavailable [phone] Latricia Pettit PA-C Unavailable [phone] Encounter Details Date Type Department Care Team (Late st Contact Info) Description 02/15/2024 [facility] Heart [address] [address] Marlo Madsen MD [address] [place] [address] Social History Tobacco Use Types Packs/Day [...] Sex Assigned at Female 10/31/2021 7:59 AM HSE SPECIALIST Gender Identity Female 10/31/2021 7:59 AM HSE SPECIALIST Sexual Orientation Straight 10/31/2021 7: 59 AM HSE SPECIALIST documented as of this encounter Miscellaneous Notes * Telephone Encounter - Kimo Simmons - 02/15/2024 10:42 AM CDT 02/14 Patient confirmed scheduled appointment: Date: 07/06/2024 Time: 3:30 pm Visit type: Return EP Provider: Tena Location: CSC Testing/imaging: N/A Additional notes: N/A documented in this encounter Plan of Treatment Upcoming Encounters Date Type Department Care Team (Latest Contact Info) Description 04/25/2024 1:50 PM CDT Therapy Visit [facility] [place] [address] [place] [address] Lainey Simon, JAY [address] [place] [address] 05/08/2024 PRE VISIT [facility] Neurology Clinic [address] 3rd [place] [address] Torri Francois MD [address] [place] [address] *-*INCOMING RECORDS*-* 05/08/2024 11:30 AM CDT Ancillary Procedure [facility] EEG [facility] Outpatient [facility] [address] [phone] 05/08/2024 2:45 PM CDT Office Visit [facility] Neurology Clinic [address] [phone] Abhishek Acevedo PA-C [address] [address] Torri Francois MD [address] [place] [address] 454975 06/07/2024 11:20 AM CDT Office Visit [facility] Gastroenterology Clinic [address] [phone] Latricia Pettit PA-C [address] [place] [address] 295555 Abby Vasquez MD [address] [place] [address] 07/06/2024 3:30 PM CDT Virtual Visit [facility] Heart [address] [phone] Marlo Madsen MD [address] [place] [address] 618235 10/03/2024 3:15 PM HSE SPECIALIST Virtual Visit [facility] Gastroenterology [address] [phone] Latricia Pettit PA-C [address] [place] [address] 137695 10/10/2024 8:30 AM HSE SPECIALIST Office Visit [facility] [place] [address] [facility] 103 [place] [phone] Abhishek Acevedo PA-C [address] [facility] [address] [place] [address] 01/11/2025 9:00 AM CDT Virtual Visit [facility] Neurology Clinic [address] 3rd [place] [phone] Rosalba Pendleton, ROAST MASTER RADIOLOGY SUPERVISOR 9[address] [facility] [id number] [place], [place] [id number] documented as of this encounter Visit Diagnoses Not on filedocumented in this encounter Additional Health Concerns Assessment Noted Time PHQ-9 Depression Total Score: 12 024 12:52 PM HSE SPECIALIST documented as of this encounter Care Teams Attendant Sales Relationship Specialty Start Date End Date Monty Musa MD PCP - General Family Medicine 08/13/21 Alfonso Tang [facility] 08/13/21 Dayanara Bee MD [address] [place] [address] 175835 Pediatrics 12/26/14 Min Lange MD [address] [address] Neurology 03/30/16 Marlo Madsen MD [address] [place] [address] 348655 Cardiology 10/27/16 Mel Buckley, RN Nurse Coordinator Physical Medicine and Rehabilitation 12/02/16 Douglas Cadet MD [address] [place] [address] Gastroenterology 08/13/21 Rosalba Pendleton APRN RADIOLOGY SUPERVISOR [address] [place] [address] Nurse Practitioner Neurology 09/05/21 Rosalba Pendleton APRN RADIOLOGY SUPERVISOR [address] [place] [address] Assigned Neuroscience Provider 11/09/21 Marlo Madsen MD [address] [place] [address] Assigned Heart and Vascular Provider 03/14/22 Abby Vasquez MD [address] [place] [address] Gastroenterology 07/16/22 Airam Hodges PA-C [address] [place] [address] Physician Rn Women Services Surgery 07/19/23 Zain Quintana MD [address] [place] [address]684 Assigned Surgical Provider 10/07/23 Latricia Pettit PA-C [address] [place] [address] Assigned Gastroenterology Provider 10/15/23 documented as of this encounter
--- OUTSIDE RECORDS SUMMARY | 2024-04-22 13:08 | XMS_ITS | Encounter Summary ---
Author Organization [place] Address [address] [facility] [place] [address] Care Team Providers Care Pleater Hand Name Role Phone Monty Musa MD Primary Care Provider Alfonso Tang Unavailable Unavailable Dayanara Bee MD Unavailable [phone] Min Lange MD Unavailable Unavailable Marlo Madsen MD Unavailable [phone] Mel Buckley RN Unavailable [phone] Douglas Cadet MD Unavailable [phone] Rosalba Pendleton APRN CENTRIFUGE OPERATOR Unavaila ble Rosalba Pendleton APRN CENTRIFUGE OPERATOR Unavaila ble Marlo Madsen MD Unavailable [phone] Abby Vasquez MD Unavailable Airam Hodges PA-C Unavailable [phone] Zain Quintana MD Unavailable [phone] Latricia Pettit PA-C Unavailable [phone] Encounter Details Date Type Department Care Team (Latest Contact Info) Description 01/26/2024 Travel Social History Tobacco Use Types Packs/Day [...] Sex Assigned at Female 10/31/2021 7:59 AM LOG GETTER Gender Identity Female 10/31/2021 7:59 AM LOG GETTER Sexual Orientation Straight 10/31/2021 7: 59 AM LOG GETTER documented as of this encounter Plan of Treatment Upcoming Encounters Date Type Department Care Team (Latest Contact Info) Description 04/25/2024 1:50 PM CDT Therapy Visit [facility] Rehabilitation Services [address] [place] [phone] [place] [address] [place] [address] 05/08/2024 PRE VISIT [facility] Neurology Clinic [address] [address] Torri Francois MD [address] [place] [address] 719525 *-*INCOMING RECORDS*-* 05/08/2024 11:30 AM CDT Ancillary Procedure [facility] EEG [facility] Outpatient [facility] [address] [phone] 05/08/2024 2:45 PM CDT Office Visit [facility] Neurology Clinic [address] [address] Abhishek Acevedo, STEFANOC [address] [address] Torri Francois MD [address] [place] [address] 920745 06/07/2024 11:20 AM CDT Office Visit [facility] Gastroenterology Clinic [address] [phone] Latricia Pettit PA-C [address] [place] [address] 317615 Abby Vasquez MD [address] [place] [address] 136275 07/06/2024 3:30 PM CDT Virtual Visit [facility] Heart [address] [phone] Marlo Madsen MD [address] [place] [address] 330305 10/03/2024 3:15 PM LOG GETTER Virtual Visit [facility] Gastroenterology Clinic [address] [phone] Latricia Pettit PA-C [address] [place] [address] [phone] 10/10/2024 8:30 AM LOG GETTER Office Visit [facility] Centers [place] [address] [place] [phone] Abhishek Acevedo PA-C [address] [id number] 01/11/2025 9:00 AM CDT Virtual Visit [facility] Neurology Clinic [address] [phone] Rosalba Pendleton APRN CENTRIFUGE OPERATOR [address] [place] [address] [id number] [place], [place] 908105 documented as of this encounter Visit Diagnoses Not on filedocumented in this encounter Additional Health Concerns Assessment Noted Time PHQ-9 Depression Total Score: 12 024 12:52 PM LOG GETTER documented as of this encounter Care Teams Pleater Hand Relationship Specialty Start Date End Date Monty Musa MD PCP - General Family Medicine 08/13/21 Alfonso Tang [facility] 08/13/21 Dayanara Bee MD [address] 213715 Pediatrics 12/26/14 Min Lange MD [address] [address] Neurology 03/30/16 Marlo Madsen MD [address] [place] [address] 558225 Cardiology 10/27/16 Mel Buckley, RN Nurse Coordinator Physical Medicine and Rehabilitation 12/02/16 Douglas Cadet MD [address] [place] [address] Gastroenterology 08/13/21 Rosalba Pendleton APRN CENTRIFUGE OPERATOR [address] [place] [address] Nurse Practitioner Neurology 09/05/21 Rosalba Pendleton APRN CENTRIFUGE OPERATOR [address] [address] Assigned Neuroscience Provider 11/09/21 aMrlo Madsen MD [address] [place] [address] 75 [place] [address] Assigned Heart and Vascular Provider 03/14/22 Abby Vasquez MD [address] [place] [address] Gastroenterology 07/16/22 Airam Hodges PA-C [address] [place] [address] Physician Electronics Detail Draftsperson Surgery 07/19/23 Zain Quintana MD [address] [place] [address] Assigned Surgical Provider 10/07/23 Latricia Pettit PA-C [address] [place] [address] Assigned Gastroenterology Provider 10/15/23 documented as of this encounter
--- OUTSIDE RECORDS SUMMARY | 2024-04-22 13:08 | XMS_ITS | Encounter Summary ---
Author Organization [place] Address 24[address] [facility] [place] [address] Care Team Providers Care Market Director Name Role Phone Monty Musa MD Primary Care Provider Alfonso Tang Unavailable Unavailable Dayanara Bee MD Unavailable [phone] Min Lange MD Unavailable Unavailable Marlo Madsen MD Unavailable [phone] Mel Buckley RN Unavailable [phone] Douglas Cadet MD Unavailable [phone] Rosalba Pendleton APRN OBSERVATION ASSISTANT Unavaila ble Rosalba Pendleotn APRN OBSERVATION ASSISTANT Unavaila ble Marlo Madsen MD Unavailable [phone] Abby Vasquez MD Unavailable Airam Hodges PA-C Unavailable [phone] Zain Quintana MD Unavailable [phone] Latricia Pettit PA-C Unavailable [phone] Encounter Details Date Type Department Care Team (Latest Contact Info) Description 01/20/2024 Travel Social History Tobacco Use Types Packs/Day [...] Assigned at Female 10/31/2021 7:59 AM COMPUTER TECHNICAL SUPPORT SPECIALIST Gender Identity Female 10/31/2021 7:59 AM COMPUTER TECHNICAL SUPPORT SPECIALIST Sexual Orientation Straight 10/31/2021 7: 59 AM COMPUTER TECHNICAL SUPPORT SPECIALIST documented as of this encounter Plan of Treatment Upcoming Encounters Date Type Department Care Team (Latest Contact Info) Description 04/25/2024 1:50 PM CDT Therapy Visit [facility] Rehabilitation Services [address] [place] [phone] [place] [address] [place] [address] 05/08/2024 PRE VISIT [facility] Neurology Clinic [address] [address] Torri Francois MD [address] [place] [address] 802435 *-*INCOMING RECORDS*-* 05/08/2024 11:30 AM CDT Ancillary Procedure [facility] EEG [facility] Outpatient Clinic [address] [phone] 05/08/2024 2:45 PM CDT Office Visit [facility] Neurology Clinic [address] [phone] Abhishek Acevedo, STEFANOC [address] [address] Torri Francois MD [address] [place] [address] 564285 06/07/2024 11:20 AM CDT Office Visit [facility] Gastroenterology Clinic [address] [phone] Latricia Pettit PA-C [address] [place] [address] 300315 Abby Vasquez MD [address] [place] [address] 457785 07/06/2024 3:30 PM CDT Virtual Visit [facility] Heart [address] [phone] Marlo Madsen MD [address] [place] [address] 705135 10/03/2024 3:15 PM COMPUTER TECHNICAL SUPPORT SPECIALIST Virtual Visit [facility] Gastroenterology Clinic [address] [phone] Latricia Pettit PA-C [address] [place] [address] [phone] 10/10/2024 8:30 AM COMPUTER TECHNICAL SUPPORT SPECIALIST Office Visit [facility] [place] [address] [place] [phone] Abhishek Acevedo PA-C [address] [phone] 01/11/2025 9:00 AM CDT Virtual Visit [facility] Neurology Clinic [address] [phone] Rosalba Pendleton APRN OBSERVATION ASSISTANT [address] [place] [address] [id number] [place], [place] 213725 documented as of this encounter Visit Diagnoses Not on filedocumented in this encounter Additional Health Concerns Assessment Noted Time PHQ-9 Depression Total Score: 12 024 12:52 PM COMPUTER TECHNICAL SUPPORT SPECIALIST documented as of this encounter Care Teams Market Director Relationship Specialty Start Date End Date Monty Musa MD PCP - General Family Medicine 08/13/21 Alfonso Tang [facility] 08/13/21 Dayanara Bee MD [address] 425695 Pediatrics 12/26/14 Min Lange MD [address] [address] Neurology 03/30/16 Marlo Madsen MD [address] [place] [address] 610125 Cardiology 10/27/16 Mel Buckley, RN Nurse Coordinator Physical Medicine and Rehabilitation 12/02/16 Douglas Cadet MD [address] [place] [address] Gastroenterology 08/13/21 Rosalba Pendleton APRN OBSERVATION ASSISTANT [address] [place] [address] Nurse Practitioner Neurology 09/05/21 Rosalba Pendleton APRN OBSERVATION ASSISTANT [address] [address] Assigned Neuroscience Provider 11/09/21 Marlo Madsen MD [address] [place] [address] 75 [place] [address] Assigned Heart and Vascular Provider 03/14/22 Abby Vasquez MD [address] [place] [address] Gastroenterology 07/16/22 Airam Hodges PA-C [address] [place] [address] Physician Nursing Surgical Services Director Surgery 07/19/23 Zain Quintana MD [address] [place] [address] Assigned Surgical Provider 10/07/23 Latricia Pettit PA-C [address] [place] [address] Assigned Gastroenterology Provider 10/15/23 documented as of this encounter
--- OUTSIDE RECORDS SUMMARY | 2024-04-22 13:08 | XMS_ITS | Encounter Summary ---
Author Organization [place] Address 2450 [facility] [place] [address] Care Team Providers Care Product Manager Name Role Phone Monty Musa MD Primary Care Provider [phone] Alfonso Tang Unavailable Unavailable Dayanara Bee MD Unavailable [phone] Min Lange MD Unavailable Unavailable Marlo Madsen MD Unavailable [phone] Mel Buckley RN Unavailable [phone] Douglas Cadet MD Unavailable [phone] Rosalba Pendleton APRN EDM OPERATOR Unavaila ble Rosalba Pendleton APRN EDM OPERATOR Unavaila ble Marlo Madsen MD Unavailable [phone] Abby Vasquez MD Unavailable Airam Hodges PA-C Unavailable [phone] Zain Quintana MD Unavailable [phone] Darin Pettit PA-C Unavailable [phone] Reason for Visit * Reason Comments Sleep Problem * (Routine) - Closed Specialty Diagnoses / Procedures Referred By Emily jenkins Referred To Contact Sleep Medicine Diagnoses PSG Procedures [facility] [address] [facility] [place] [address] Referral ID Status Reason Start Date Expiration Date Visits Re quested Visits Authorized [id number] Closed 01/20/2024 01/19/2025 1 1 Encounter Details Date Type Department Care Team (Late st Contact Info) Description 01/20/2024 8:00 PM CDT Therapy Visit [facility] Sleep Centers [place] [phone] [facility] [address] [place] [address] History of sleep apnea; Morning headache Social History Tobacco Use Types Packs/Day Years [...] Sex Assigned at Female 10/31/2021 7:59 AM TIMBER BUYER Gender Identity Female 10/31/2021 7:59 AM TIMBER BUYER Sexual Orientation Straight 10/31/2021 7: 59 AM TIMBER BUYER documented as of this encounter Progress Notes * Kwasi Campoverde - 01/20/2024 8:00 PM CDT Diagnostic PSG completed per provider order. documented in this encounter Procedure Notes * Adelso Sarkar MD - 01/20/2024 8:00 PM CDT Images from the original note were not included. SLEEP STUDY INTERPRETATION DIAGNOSTIC POLYSOMNOGRAPHY REPORT Patient: DARIN BLANCO Date of : 1990 Study Date: 01/20/2024 Referring Provider: Rosalba Franz Ordering Provider: Mello Darden Indications for Polysomnography: The patient is a 33 year old Female who is 5' 6 and weighs 208.0 lbs. Her BMI is 33.8, Kite sleepiness scale - and neck circumference is 40 cm. 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 Polysomnogram Data: A full night polysomnogram recorded the standard physiologic parameters including EEG, EOG, EMG, ECG, nasal and oral airflow. Respiratory parameters of chest and abdominal movements were recorded with respiratory inductance plethysmography. Oxygen saturation was recorded by pulse oximetry. Hypopnea scoring rule used: 1B 4%. Sleep Architecture: Sleep fragmentation The total recording [...] hx sharp wave activity. Uncertain clinical significance. Recommendations: Patient may be reassured that, per this study they do not have clinically significant sleep disordered breathing. Consider referral to Epilepsy for evaluation of possible seizure activity. If patient has otherwise unexplained hypersomnia recommend a workup with PSG/MSLT. Advice regarding the risks of drowsy driving. Suggest optimizing sleep schedule and avoiding sleep deprivation. Weight management Treatment of PLMs (dopaminergic agents or delta-2 ligands) should be targeted at patients who either have wakeful motor restlessness or those in whom there is a high clinical suspicion of periodic limb movement disorder and not for elevated PLMs alone. Recommend screening for dream enactment and if present consider a diagnosis of RBD. Diagnostic Code: G47.9 Adelso Sarkar MD 02-05-2024 Diplomate, Sleep Medicine, ABPN documented in this encounter Plan of Treatment Upcoming Encounters Date Type Department Care Team (Latest Contact Info) Description 04/25/2024 1:50 PM CDT Therapy Visit [address] [place] [address] [place] [address] [place] [address] 05/08/2024 PRE VISIT [facility] Neurology Clinic [address] [phone] Torri Francois MD [address] [place] [address] [phone] *-*INCOMING RECORDS*-* 05/08/2024 11:30 AM CDT Ancillary Procedure [facility] EEG [facility] Out[facility] [address] [phone] 05/08/2024 2:45 PM CDT Office Visit [facility] Neurology [address] [phone] Abhishek Acevedo PALaurleC [address] [address] Torri Francois MD [address] [place] [address] 06/07/2024 11:20 AM CDT Office Visit [facility] Gastroenterology Clinic [address] [phone] Darin Pettit PAJyoti [address] [place] [address] 273325 Abby Vasquez MD [address] [place] [address] 777785 07/06/2024 3:30 PM CDT Virtual Visit [facility] Heart Clinic [address] [phone] Marlo Madsen MD [address] [place] [address] 10/03/2024 3:15 PM TIMBER BUYER Virtual Visit [facility] Gastroenterology Clinic [address] 4th [place] [phone] Darin Pettit PA-C [address] [place] [address] [phone] 10/10/2024 8:30 AM TIMBER BUYER Office Visit [facility] Sleep Centers [place] [address] [phone] Abhishek Acevedo PA-C [address] [address] 01/11/2025 9:00 AM CDT Virtual Visit [facility] Neurology Clinic [address] 3rd [place] [phone] Rosalba Pendleton, MAXIMILIANO EDM OPERATOR [address] [place] [address] [id number] [place], [place] 167335 documented as of this encounter Procedures Procedure Name Priority Date/Time Associated Diagnosis Comments POLICE CAPTAIN SENIOR COMPREHENSIVE SLEEP Routine 01/20/20 7:52 PM CDT History of sleep apnea Morning headache documented in this encounter Results * Comprehensive Sleep Study (01/20/2024 7:52 PM CDT) POLICE CAPTAIN SENIOR Comprehensive Sleep BREEZE PFT 01/20/2024 7:52 PM CDT Abhishek Acevedo PA-C PROCEDURES BREEZE PFT documented in this encounter Visit Diagnoses Diagnosis History of sleep apnea Personal history of other specified diseases Morning headache Headache documented in this encounter Additional Health Concerns Assessment Noted Time PHQ-9 Depression Total Score: 12 02/ 024 12:52 PM TIMBER BUYER documented as of this encounter Care Teams Product Manager Relationship Specialty Start Date End Date Monty Musa MD PCP - General Family Medicine 08/13/21 Al[facility]so [facility] 08/13/21 Dayanara Bee MD [address] [place] [address] 397295 Pediatrics 12/26/14 Min Lange MD [address] [place] [address] Neurology 03/30/16 Marlo Madsen MD [address] [place] [address] 174145 Cardiology 10/27/16 Mel Buckley, RN Nurse Coordinator Physical Medicine and Rehabilitation 12/02/16 Douglas Cadet MD [address] [place] [address] 195775 Gastroenterology 08/13/21 Rosalba Pendleton APRN EDM OPERATOR [address] [place], [place] [address]J [place], [place] [phone] Nurse Practitioner Neurology 09/05/21 Rosalba Pendleton APRN EDM OPERATOR [address] [place] [address] [id number] Assigned Neuroscience Provider 11/09/21 Marlo Madsen MD [address] [place] [address] 480235 Assigned Heart and Vascular Provider 03/14/22 Abby Vasquez MD [address] [place] [address] Gastroenterology 07/16/22 Airam Hodges PA-C 500 [place], [place] [phone] Physician Solar Photovoltaic Crew Lead Surgery 07/19/23 Zain Quintana MD [address] [place], [place] [phone] Assigned Surgical Provider 10/07/23 Darin Pettit PA-C [address] [place] [address] [phone] Assigned Gastroenterology Provider 10/15/23 documented as of this encounter
--- OUTSIDE RECORDS SUMMARY | 2024-04-22 13:08 | XMS_ITS | Encounter Summary ---
Author Organization [place] Address [facility] [place] [address] Care Team Providers Care Production Control Expert Name Role Phone Monty Musa MD Primary Care Provider Alfonso Tang Unavailable Unavailable Dayanara Bee MD Unavailable [phone] Min Lange MD Unavailable Unavailable Marlo Madsen MD Unavailable [phone] Mel Buckley RN Unavailable [phone] Douglas Cadet MD Unavailable [phone] Rosalba Pendleton APRN FIBER OPTIC ASSEMBLY WORKER Unavaila ble Rosalba Pendleton APRN FIBER OPTIC ASSEMBLY WORKER Unavaila ble Marlo Madsen MD Unavailable [phone] Abby Vasquez MD Unavailable Airam Hodges PA-C Unavailable [phone] Zain Quintana MD Unavailable [phone] Latricia Pettit PA-C Unavailable [phone] Encounter Details Date Type Department Care Team (Late st Contact Info) Description 01/13/2024 [facility] [place] [facility] Neurology [facility] [place] 909 [facility] [address] [phone] Miriam Yepez RN Social History Tobacco Use [...] Sex Assigned at Female 10/31/2021 7:59 AM CD STORAGE AND MATERIALS MAKE UP HELPER Gender Identity Female 10/31/2021 7:59 AM CD STORAGE AND MATERIALS MAKE UP HELPER Sexual Orientation Straight 10/31/2021 7: 59 AM CD STORAGE AND MATERIALS MAKE UP HELPER documented as of this encounter Plan of Treatment Upcoming Encounters Date Type Department Care Team (Latest Contact Info) Description 04/25/2024 1:50 PM CDT Therapy Visit [facility] Rehabilitation Services [address] [place] [phone] [place] [address] [place] [address] 05/08/2024 PRE VISIT [facility] Neurology Clinic [address] [phone] Torri Francois MD [address] [place] [address] [phone] *-*INCOMING RECORDS*-* 05/08/2024 11:30 AM CDT Ancillary Procedure [facility] EEG [facility] [address] [phone] 05/08/2024 2:45 PM CDT Office Visit [facility] Neurology Clinic [address] [phone] Abhishek Acevedo PA-C [address] [facility] [address] [place] [address] Torri Francois MD [address] [place] [address] [phone] 06/07/2024 11:20 AM CDT Office Visit [facility] Gastroenterology Clinic [address] [phone] Latricia Pettit PA-C [address] [place] [address] 881105 Abby Vasquez MD [address] [place] [address] [phone] 07/06/2024 3:30 PM CDT Virtual Visit [facility] Heart [address] [phone] Marlo Madsen MD [address] [place] [address] [phone] 10/03/2024 3:15 PM CD STORAGE AND MATERIALS MAKE UP HELPER Virtual Visit [facility] Gastroenterology Clinic [address] [phone] Latricia Pettit PA-C [address] [place] [address] 110885 10/10/2024 8:30 AM CD STORAGE AND MATERIALS MAKE UP HELPER Office Visit [facility] Sleep Centers [address] [phone] Abhishek Acevedo PA-C [address] [phone] 01/11/2025 9:00 AM CDT Virtual Visit [facility] Neurology Clinic [address] [phone] Rosalba Pendleton APRN FIBER OPTIC ASSEMBLY WORKER [address] [place] [address] documented as of this encounter Visit Diagnoses Not on filedocumented in this encounter Additional Health Concerns Assessment Noted Time PHQ-9 Depression Total Score: 12 024 12:52 PM CD STORAGE AND MATERIALS MAKE UP HELPER documented as of this encounter Care Teams Production Control Expert Relationship Specialty Start Date End Date Monty Musa MD PCP - General Family Medicine 08/13/21 Alfonso Tang [facility] 08/13/21 Dayanara Bee MD [address] [place] [address] 400485 Pediatrics 12/26/14 Min Lange MD [address] [place] [address] Neurology 03/30/16 Marlo Madsen MD [address] [place] [address] [phone] Cardiology 10/27/16 Mel Buckley, RN Nurse Coordinator Physical Medicine and Rehabilitation 12/02/16 Douglas Cadet MD [address] [place] [address] Gastroenterology 08/13/21 Rosalba Pendleton APRN FIBER OPTIC ASSEMBLY WORKER [address] [place] [address] 907145 Nurse Practitioner Neurology 09/05/21 Rosalba Pendleton APRN FIBER OPTIC ASSEMBLY WORKER [address] [place] [address] Assigned Neuroscience Provider 11/09/21 Marlo Madsen MD [address] [place] [address] Assigned Heart and Vascular Provider 03/14/22 Abby Vasquez MD [address] [place] [address] Gastroenterology 07/16/22 Airam Hodges PA-C [address] [place] [address] [phone] Physician Inspector Metal Can Surgery 07/19/23 Zain Quintana MD [address] [place] [address] [phone] Assigned Surgical Provider 10/07/23 Latricia Pettit PA-C [address] [place] [address] [phone] Assigned Gastroenterology Provider 10/15/23 documented as of this encounter
--- OUTSIDE RECORDS SUMMARY | 2024-04-22 13:08 | XMS_ITS | Encounter Summary ---
Author Organization [place] Address [facility]0 [facility] [place] [address] Care Team Providers Care Agency Service Coordinator Name Role Phone Monty Musa MD Primary Care Provider Alfonso Tang Unavailable Unavailable Dayanara Bee MD Unavailable [phone] Min Lange MD Unavailable Unavailable Marlo Madsen MD Unavailable [phone] Mel Buckley RN Unavailable [phone] Douglas Cadet MD Unavailable [phone] Rosalba Pendleton APRN COLORED LIQUID PLASTIC APPLIER Unavaila ble Rosalba Pendleton APRN COLORED LIQUID PLASTIC APPLIER Unavaila ble Marlo Madsen MD Unavailable [phone] Abby Vasquez MD Unavailable Airam Hodges PA-C Unavailable [phone] Zain Quintana MD Unavailable [phone] Latricia Pettit PA-C Unavailable [phone] Encounter Details Date Type Department Care Team (Late st Contact Info) Description 11/17/2023 [facility] [place] [facility] Gastroenterology Clinic [place] [address] [phone] Abby Vasquez MD [address] [place] [address] [phone] Social History Tobacco Use Types Packs/Day Years [...] Sex Assigned at Female 10/31/2021 7:59 AM STAFF CONSULTANT Gender Identity Female 10/31/2021 7:59 AM STAFF CONSULTANT Sexual Orientation Straight 10/31/2021 7: 59 AM STAFF CONSULTANT documented as of this encounter Plan of Treatment Upcoming Encounters Date Type Department Care Team (Latest Contact Info) Description 04/25/2024 1:50 PM CDT Therapy Visit [facility] Rehabilitation Services [address] [place] [phone] [place] [address] [place], [place] 592147 05/08/2024 PRE VISIT [facility] Neurology Clinic [address] [phone] Torir Francois MD [address] [place] [address] [phone] *-*INCOMING RECORDS*-* 05/08/2024 11:30 AM CDT Ancillary Procedure [facility] [address] [phone] 05/08/2024 2:45 PM CDT Office Visit [facility] Neurology Clinic [address] [phone] Abhishek Acevedo PA-C [address] [address] Torri Francois MD [address] [place] [address] 06/07/2024 11:20 AM CDT Office Visit [facility] Gastroenterology Clinic [address] [phone] Latricia Pettit PA-C [address] [place] [address] Abby Vasquez MD [address] [place] [address] 07/06/2024 3:30 PM CDT Virtual Visit [facility] Heart [address] [phone] Marlo Madsen MD [address] [place] [address] [phone] 10/03/2024 3:15 PM STAFF CONSULTANT Virtual Visit [facility] Gastroenterology Clinic [address] [phone] Latricia Pettit PA-C [address] [place] [address] [phone] 10/10/2024 8:30 AM STAFF CONSULTANT Office Visit [facility] Sleep Centers [place] [address] [phone] Abhishek Acevedo PA-C [address] [address] 01/11/2025 9:00 AM CDT Virtual Visit [facility] Neurology Clinic [address] [place] [phone] Rosalba Pendleton APRN COLORED LIQUID PLASTIC APPLIER [address] [place] [address] documented as of this encounter Visit Diagnoses Not on filedocumented in this encounter Additional Health Concerns Assessment Noted Time PHQ-9 Depression Total Score: 12 024 12:52 PM STAFF CONSULTANT documented as of this encounter Care Teams Agency Service Coordinator Relationship Specialty Start Date End Date Monty Musa MD PCP - General Family Medicine 08/13/21 Alfonso Tang [facility] 08/13/21 Dayanara Bee MD [address] 138745 Pediatrics 12/26/14 Min Lange MD [address] [address] Neurology 03/30/16 Marlo Madsen MD [address] [address] Cardiology 10/27/16 Mel Buckley, RN Nurse Coordinator Physical Medicine and Rehabilitation 12/02/16 Douglas Cadet MD [address] [place] [address] Gastroenterology 08/13/21 Rosalba Pendleton APRN COLORED LIQUID PLASTIC APPLIER [address] [place] [address] Nurse Practitioner Neurology 09/05/21 Rosalba Pendleton APRN COLORED LIQUID PLASTIC APPLIER 909 [facility] [id number] [place], [place] 169585 Assigned Neuroscience Provider 11/09/21 Marlo Madsen MD [address] [place] [address] 75 [place], [place] 960315 Assigned Heart and Vascular Provider 03/14/22 Abby Vasquze MD [address] [place] [address] 324185 Gastroenterology 07/16/22 Airam Hodges PA-C 500 [place], [place] 879835 Physician Telephone Supervisor Surgery 07/19/23 Zain Quintana MD 500 [place], [place] 810575 Assigned Surgical Provider 10/07/23 Latricia Pettit PA-C [address] [place] [address] Assigned Gastroenterology Provider 10/15/23 documented as of this encounter
--- OUTSIDE RECORDS SUMMARY | 2024-04-22 13:08 | XMS_ITS | Encounter Summary ---
Author Organization [place] Address [facility] [place] [address] Care Team Providers Care Contract Graphic Designer Name Role Phone Monty Musa MD Primary Care Provider Alfonso Tang Unavailable Unavailable Dayanara Bee MD Unavailable [phone] Min Lange MD Unavailable Unavailable Marlo Madsen MD Unavailable [phone] Mle Buckley RN Unavailable [phone] Douglas Cadet MD Unavailable [phone] Rosalba Pendleton APRN AUTOMOTIVE TIRE WORKER Unavaila ble Rosalba Pendleton APRN AUTOMOTIVE TIRE WORKER Unavaila ble Marlo Madsen MD Unavailable [phone] Abby Vasquez MD Unavailable Airam Hodges PA-C Unavailable [phone] Zain Quintana MD Unavailable [phone] Latricia Pettit PA-C Unavailable [phone] Reason for Visit * Rehab Therapy Integrated Services (Routine) - Authorized Specialty Diagnoses / Procedures Referred By Emily t Referred To Contact Diagnoses Slow transit constipation [place] [address] [place] [address] Referral ID Status Reason Start Date Expiration Date V isits Requested Visits Authorized [id number] Authorized 09/13/2023 09/12/2024 365 365 Encounter Details Date Type Department Care Team (Latest Contact Info) Description 02/21/2024 10:10 AM CDT Therapy Visit [facility] [address] [facility] [address] [place], [place] [phone] [place] [address] [place], [place] 927217 Slow transit constipation (Primary Dx) Social History [...] Sex Assigned at Female 10/31/2021 7:59 AM WANT AD RECEIVER Gender Identity Female 10/31/2021 7:59 AM WANT AD RECEIVER Sexual Orientation Straight 10/31/2021 7: 59 AM WANT AD RECEIVER documented as of this encounter Progress Notes * Lainey Simon, PT - 02/21/2024 10:38 AM CDT 02/21/24 0500 Appointment Info Signing clinician's name / credentials Lainey Simon PT, DPT Total/Authorized Visits Eval and Treat Visits Used 10 Medical Diagnosis Slow transit constipation PT Tx Diagnosis pelvic floor muscle dysfunction Quick Adds Pelvic Consent;Certification Progress Note/Certification Start of Care Date 10/21/23 Onset of illness/injury or Date of Surgery 08/02/23 Therapy Frequency 1 x per week for 6-8 weeks, then 1 x every other week Predicted Duration 6 months Certification date from 03/02/24 Certification date to 05/17/24 Progress Note Due Date 05/17/24 Progress Note Completed Date 02/21/24 GOALS PT Goals 2;3 PT Goal 1 [...] and independence within the community Target Date 05/17/24 PT Goal 2 Goal Identifier Goal 2 Goal Description The patient will be able to verbalize and demonstrate 2 effective pain management strategies in order to promote independence with self- care and full activity participation. Rationale to maximize safety and independence with self cares Target Date 05/17/24 PT Goal 3 Goal Identifier Goal 3 [...] Goal Progress 1 week consistently Target Date 05/17/24 Subjective Report Subjective Report Struggling to keep body consistent. Current pattern is 2 days constipation followed by 1 day going 7-8 times (2 big, the rest tiny). (Bowel diar notes- need more veggie diversityj stomach pain after dairy, apple, carb and sugar heavy) PT Modalities PT Modalities Biofeedback;Cryotherapy;Hot Packs;Electrical Stimulation;Ultrasound Treatment Interventions (PT) Interventions Therapeutic Procedure/Exercise;Therapeutic Activity;Neuromuscular Re-education;Gait Training;Manual Therapy Therapeutic Procedure/Exercise Therapeutic Procedures: strength, endurance, ROM, flexibility minutes (05721) 28 PTRx Ther Proc 1 Leg press (hips neutral, IR, and ER) PTRx Ther Proc 1 - Details 1 x 15 each PTRx Ther Proc 2 Alternating 1 x 10 bridge w/ TRX and 1 x 10 per side prone TKE w/ leg lift PTRx Ther Proc 2 - Details 2 sets PTRx Ther Proc 3 Knee hugs to chest w/ exhale PTRx Ther Proc 3 - Details 1 x 10 B, core strength and bowel motility Skilled Intervention Verbal and tactile cueing Ther Proc 1 Treadmill warmup Ther Proc 1 - Details 3.2 mph x 3 min, sidestep 1 min per side, high knees and butt kicks 30 seconds each Ther Proc 2 !0 x wookchop w/ 10# weight alternating w/ 10 x sumo chest press Ther Proc 2 - Details 2 set Ther Proc 3 Tiktok abs quadruped Ther Proc 3 - Details 1 x 10 per side Therapeutic Procedures Ther Proc 2;Ther Proc 3 Therapeutic Activity Therapeutic Activities: dynamic activities to improve functional performance minutes (93260) 11 Therapeutic Activities Ther Act 3;Ther Act 2;Ther Act 4;Ther Act 5 Ther Act 1 Review of constipation management Ther Act 1 - Details 4 days on, 3 days off (constipation; 3 capfuls of miralax, ducalax by end of constipated period. Using pelvic wand. Staying active with walking, running, VR workouts Ther Act 2 Review of breathing for constipation Ther Act 2 - Details belly, rib cage mobility Ther Act 3 Education about use of other end of wand for pelvic floor relaxation Ther Act 3 - Details HPE Ther Act 4 Abdominal massage 30 min-1 hour after medication Ther Act 4 - Details Helps a lot with symptoms if bad Skilled Intervention Patient education to improve pelvic floor function and reduce constipation Manual Therapy Manual Therapy Manual Therapy 2 Manual Therapy 1 Rectal, internal Manual Therapy 1 - Details static hold to release pelvic floor relaxation with perineal massage to promote muscle lengthening, sidelying Manual Therapy 2 Abdominal massage Manual Therapy 2 - Details ILU and skin rolling Skilled Intervention manual therapy provided to decrease pain and improve function Education Learner/Method Patient;Pictures/Video;No Barriers to Learning;Demonstration;Listening;Reading Plan [...] Total Session Time Timed Code Treatment Minutes 39 Total Treatment Time (sum of timed and untimed services) 39 [facility] OUTPATIENT PHYSICAL THERAPY PLAN OF TREATMENT FOR OUTPATIENT REHABILITATION Patient's Last Name, First Name, Latricia Tatum Date of : 1990 Provider's Name [facility] Onset Date: 08/02/23 Start of Care Date: 10/21/23 Medical Diagnosis: Slow transit constipation PT Treatment Diagnosis: pelvic floor muscle dysfunction Plan of Treatment Frequency/Duration: 1 x per week for 6-8 weeks, then 1 x every other week/ 6 months Certification date from 03/02/24 to 05/17/24 See note for plan of treatment details and functional goals Lainey Simon PT I CERTIFY THE NEED FOR THESE SERVICES FURNISHED UNDER THIS PLAN OF TREATMENT AND WHILE UNDER MY CARE (Physician attestation of this document indicates review and certification of the therapy plan). Referring Provider: Zain Quintana Initial Assessment See Epic Evaluation- Start of Care Date: 10/21/23 PLAN Continue therapy per current plan of care. Beginning/End Dates of Progress Note Reporting Period: 02/21/24 to 02/21/2024 Referring Provider: Zain Quintana Associated attestation - Zain Quintana MD - 02/21/2024 10:46 AM CDT Physician Attestation I agree with the information in this note. Zain Quintana MD documented in this encounter Plan of Treatment Upcoming Encounters Date Type Department Care Team (Latest Contact Info) Description 04/25/2024 1:50 PM CDT Therapy Visit [facility] Rehabilitation Services [address] [place] [phone] Lainey Simon, JAY [address] [place] [address] 05/08/[address] [facility] Neurology Clinic [address] [phone] Torri Francois MD [address] [place] [address] 356305 *-*INCOMING RECORDS*-* 05/08/2024 11:30 AM CDT Ancillary Procedure [facility] EEG [facility] Outpatient [facility] [address] [phone] 05/08/2024 2:45 PM CDT Office Visit [facility] Neurology [address] [phone] Abhishek Acevedo PA-C [address] [place] [address] Torri Francois MD [address] [place] [address] 06/07/2024 11:20 AM CDT Office Visit [facility] Gastroenterology Clinic [address] [phone] Latricia Pettit PA-C [address] [place] [address] [phone] Abby Vasquez MD [address] [place] [address] 07/06/2024 3:30 PM CDT Virtual Visit [facility] Heart [address] [phone] Marlo Madsen MD [address] [place] [address] [phone] 10/03/2024 3:15 PM WANT AD RECEIVER Virtual Visit [facility] Gastroenterology Clinic [address] [phone] Latricia Pettit PA-C [address] [place] [address] 101485 10/10/2024 8:30 AM WANT AD RECEIVER Office Visit [facility] Sleep Centers [place] [address] [phone] Abhishek Acevedo PA-C [address] [address] 01/11/2025 9:00 AM CDT Virtual Visit [facility] Neurology Clinic [address] 3[address] [place] [address] Rosalba Pendleton APRN AUTOMOTIVE TIRE WORKER [address] [place] [address] documented as of this encounter Visit Diagnoses Diagnosis Slow transit constipation- Primary documented in this encounter Additional Health Concerns Assessment Noted Time PHQ-9 Depression Total Score: 12 024 12:52 PM WANT AD RECEIVER documented as of this encounter Care Teams Contract Graphic Designer Relationship Specialty Start Date End Date Monty Musa MD PCP - General Family Medicine 08/13/21 Alfonso Tang [facility] 08/13/21 Dayanara Bee MD [address] [phone] Pediatrics 12/26/14 Min Lange MD [address] [address] Neurology 03/30/16 Marlo Madsen MD [address] [address] Cardiology 10/27/16 Mel Buckley, RN Nurse Coordinator Physical Medicine and Rehabilitation 12/02/16 Douglas Cadet MD [address] [place] [address] Gastroenterology 08/13/21 Rosalba Pendleton APRN AUTOMOTIVE TIRE WORKER [address] [place] [address] Nurse Practitioner Neurology 09/05/21 Rosalba Pendleton APRN AUTOMOTIVE TIRE WORKER 909 [facility] [place] [id number] [place] [address] Assigned Neuroscience Provider 11/09/21 Marlo Madsen MD [address] [place] [address] 75 [place], [place] 945145 Assigned Heart and Vascular Provider 03/14/22 Abby Vasquez MD [address] [place] [address] 907895 Gastroenterology 07/16/22 iAram Hodges PA-C 500 [place], [place] 361715 Physician Senior Php Web Developer Surgery 07/19/23 Zain Quintana MD 500 [place], [place] 706815 Assigned Surgical Provider 10/07/23 Latricia Pettit PA-C [address] [place] [address] 350055 Assigned Gastroenterology Provider 10/15/23 documented as of this encounter
--- OUTSIDE RECORDS SUMMARY | 2024-04-22 13:08 | XMS_ITS | Encounter Summary ---
Author Organization [place] Address [address] [facility] [place] [address] Care Team Providers Care Auto Body Technician Name Role Phone Monty Musa MD Primary Care Provider [phone] Alfonso Tang Unavailable Unavailable Dayanara Bee MD Unavailable [phone] Min Lange MD Unavailable Unavailable Marlo Madsen MD Unavailable [phone] Mel Buckley RN Unavailable [phone] Douglas Cadet MD Unavailable [phone] Rosalba Pendleton APRN LUNG PULLER Unavaila ble Rosalba Pendleton APRN LUNG PULLER Unavaila ble Douglas Cadet MD Unavailable [phone] Marlo Madsen MD Unavailable [phone] Abby Vasquez MD Unavailable Abby Vasquez MD Unavailable Airam Hodges PA-C Unavailable [phone] Zain Quintana MD Unavailable [phone] Latricia Pettit PA-C Unavailable [phone] Encounter Details Date Type Department Care Team (Late st Contact Info) Description 07/16/[address] [facility] [address] [address] Sheri Edmonds, RN Social History Tobacco [...] Sex Assigned at Female 10/31/2021 7:59 AM RECONSTRUCTIVE SURGEON Gender Identity Female 10/31/2021 7:59 AM RECONSTRUCTIVE SURGEON Sexual Orientation Straight 10/31/2021 7: 59 AM RECONSTRUCTIVE SURGEON documented as of this encounter Plan of Treatment Upcoming Encounters Date Type Department Care Team (Latest Contact Info) Description 04/25/2024 1:50 PM CDT Therapy Visit [facility] Rehabilitation Services [address] [place] [phone] [place] [address] [place], [place] [address] 05/08/[address] [facility] [address] [address] Torri Francois MD [address] [place] [address] *-*INCOMING RECORDS*-* 05/08/2024 11:30 AM CDT Ancillary Procedure [facility] [address] [phone] 05/08/2024 2:45 PM CDT Office Visit [facility] [address] [phone] Abhishek Acevedo PA-C [address] [place] [address] Torri Francois MD [address] [place] [address] 06/07/2024 11:20 AM CDT Office Visit [facility] [address] [phone] Latricia Pettit PA-C [address] [place] [address] 741835 Abby Vasquez MD [address] [place] [address] 07/06/2024 3:30 PM CDT Virtual Visit [facility] Heart [address] [phone] Marlo Madsen MD [address] [place] [address] 104845 10/03/2024 3:15 PM RECONSTRUCTIVE SURGEON Virtual Visit [facility] [address] [phone] Latricia Pettit PA-C [address] [place] [address] 126535 10/10/2024 8:30 AM RECONSTRUCTIVE SURGEON Office Visit [facility] [place] [address] [facility] [address] [place] [phone] Abhishek Acevedo PA-C [address] [address] 01/11/2025 9:00 AM CDT Virtual Visit [facility] [address] 3rd [place] [phone] Rosalba Pendleton APRN LUNG PULLER [address] [place] [address] documented as of this encounter Visit Diagnoses Not on filedocumented in this encounter Additional Health Concerns Assessment Noted Time PHQ-9 Depression Total Score: 12 023 8:53 AM CDT documented as of this encounter Care Teams Auto Body Technician Relationship Specialty Start Date End Date Monty Musa MD PCP - General Family Medicine 08/13/21 Alfonso Tang [facility] 08/13/21 Dayanara Bee MD [address] 663805 Pediatrics 12/26/14 Min Lange MD [address] [address] Neurology 03/30/16 Marlo Madsen MD [address] [address] Cardiology 10/27/16 Mel Buckley, DIAZ Nurse Coordinator Physical Medicine and Rehabilitation 12/02/16 Douglas Cadet MD [address] [place] [address] Gastroenterology 08/13/21 Rosalba Pendleton APRN LUNG PULLER [address] [place] [address] 19199 Nurse Practitioner Neurology 09/05/21 Rosalba Pendleton APRN LUNG PULLER [address] [place] [address] [id number] [place], [place] 593225 Assigned Neuroscience Provider 11/09/21 Douglas Cadet MD [address] [place] [address] Assigned Gastroenterology Provider 03/14/22 09/03/23 Malro Madsen MD [address] [place] [address] 75 [place], [place] 676625 Assigned Heart and Vascular Provider 03/14/22 Abby Vasquez MD [address] [place] [address] Gastroenterology 07/16/22 Abby Vasquez MD [address] [place] [address] Assigned PCP 09/26/22 10/06/23 Airam Hodges PA-C [address] [place] [address] Physician Air Table Operator Surgery 07/19/23 Zain Quintana MD [address] [place] [address] 35673 Assigned Surgical Provider 10/07/23 Latricia Pettit PA-C [address] [place] [address] Assigned Gastroenterology Provider 10/15/23 documented as of this encounter
--- OUTSIDE RECORDS SUMMARY | 2024-04-22 13:08 | XMS_ITS | Encounter Summary ---
Author Organization [place] Address [address] [facility] [address] Care Team Providers Care Maintenance Representative Name Role Phone Monty Musa MD Primary Care Provider [phone] Alfonso Tang Unavailable Unavailable Dayanara Bee MD Unavailable [phone] Min Lange MD Unavailable Unavailable Marlo Madsen MD Unavailable [phone] Mel Buckley RN Unavailable [phone] Douglas Cadet MD Unavailable [phone] Rosalba Pendleton APRN PIECE DYE WORKER Unavaila ble Rosalba Pendleton APRN PIECE DYE WORKER Unavaila ble Marlo Madsen MD Unavailable [phone] Abby Vasquez MD Unavailable Airam Hodges PA-C Unavailable [phone] Zain Quintana MD Unavailable [phone] Latricia Pettit PA-C Unavailable [phone] Encounter Details Date Type Department Care Team (Latest Contact Info) Description 02/21/2024 Travel Social History Tobacco Use Types Packs/Day [...] Sex Assigned at Female 10/31/2021 7:59 AM ASSEMBLER FINGER BUFFS Gender Identity Female 10/31/2021 7:59 AM ASSEMBLER FINGER BUFFS Sexual Orientation Straight 10/31/2021 7: 59 AM ASSEMBLER FINGER BUFFS documented as of this encounter Plan of Treatment Upcoming Encounters Date Type Department Care Team (Latest Contact Info) Description 04/25/2024 1:50 PM CDT Therapy Visit [facility] [address] [place] [phone] [place] [address] [place] [address] 05/08/[address] [facility] [address] [phone] Torri Francois MD [address] [place] [address] 388255 *-*INCOMING RECORDS*-* 05/08/2024 11:30 AM CDT Ancillary Procedure [facility] [address] [phone] 05/08/2024 2:45 PM CDT Office Visit [facility] [address] [phone] Abhishek Acevedo, STEFANOC [address] [address] Torri Francois MD [address] [place] [address] 614065 06/07/2024 11:20 AM CDT Office Visit [facility] [address] [phone] Latricia Pettit PA-C [address] [place] [address] 211995 Abby Vasquez MD [address] [place] [address] 096215 07/06/2024 3:30 PM CDT Virtual Visit [facility] Heart [address] [phone] Marlo Madsen MD [address] [place] [address] 657095 10/03/2024 3:15 PM ASSEMBLER FINGER BUFFS Virtual Visit [facility] [address] [phone] Latricia Pettit PA-C [address] [place] [address] [phone] 10/10/2024 8:30 AM ASSEMBLER FINGER BUFFS Office Visit [facility] [place] [address] [place] [phone] Abhishek Acevedo PA-C [address] [phone] 01/11/2025 9:00 AM CDT Virtual Visit [facility] [address] [phone] Rosalba Pendleton APRN PIECE DYE WORKER [address] [place] [address] [id number] [place], [place] 840825 documented as of this encounter Visit Diagnoses Not on filedocumented in this encounter Additional Health Concerns Assessment Noted Time PHQ-9 Depression Total Score: 12 024 12:52 PM ASSEMBLER FINGER BUFFS documented as of this encounter Care Teams Maintenance Representative Relationship Specialty Start Date End Date Monty Musa MD PCP - General Family Medicine 08/13/21 Alfonso Tang [facility] 08/13/21 Dayanara Bee MD [address] [phone] Pediatrics 12/26/14 Min Lange MD [address] [address] Neurology 03/30/16 Marlo Madsen MD [address] [place] [address] 617955 Cardiology 10/27/16 Mel Buckley, RN Nurse Coordinator Physical Medicine and Rehabilitation 12/02/16 Douglas Cadet MD [address] [place] [address] Gastroenterology 08/13/21 Rosalba Pendleton APRN PIECE DYE WORKER [address] [place] [address] Nurse Practitioner Neurology 09/05/21 Rosalba Pendleton APRN PIECE DYE WORKER [address] [address] Assigned Neuroscience Provider 11/09/21 Marlo Madsen MD [address] [place] [address] 75 [place] [address] Assigned Heart and Vascular Provider 03/14/22 Abby Vasquez MD [address] [place] [address] Gastroenterology 07/16/22 Airam Hodges PA-C [address] [place] [address]20 Physician Grid Maker Surgery 07/19/23 Zain Quintana MD [address] [place] [address]3 Assigned Surgical Provider 10/07/23 Latricia Pettit PA-C [address] [place] [address] Assigned Gastroenterology Provider 10/15/23 documented as of this encounter
--- OUTSIDE RECORDS SUMMARY | 2024-04-22 13:08 | XMS_ITS | Encounter Summary ---
Author Organization [place] Address [facility] [place] [address] Care Team Providers Care Propellant Charge Loader Name Role Phone Monty Musa MD Primary Care Provider Alfonso Tang Unavailable Unavailable Dayanara Bee MD Unavailable [phone] Min Lange MD Unavailable Unavailable Marlo Madsen MD Unavailable [phone] Mel Buckley RN Unavailable [phone] Douglas Cadet MD Unavailable Rosalba Pendleton APRN ARCHITECTURAL TECHNOLOGIST Unavaila ble Rosalba Pendleton APRN ARCHITECTURAL TECHNOLOGIST Unavaila ble Marlo Madsen MD Unavailable [phone] Abby Vasquez MD Unavailable Airam Hodges PA-C Unavailable [phone] Zain Quintana MD Unavailable [phone] Latricia Pettit PA-C Unavailable [phone] Encounter Details Date Type Department Care Team (Late st Contact Info) Description 12/06/2023 [facility] Neurology Clinic [place] [address] [facility] [address] [phone] Miriam Yepez RN Social History Tobacco Use [...] Female 10/31/2021 7:59 AM ASSOCIATE PROFESSOR OF ENGLISH Gender Identity Female 10/31/2021 7:59 AM ASSOCIATE PROFESSOR OF ENGLISH Sexual Orientation Straight 10/31/2021 7: 59 AM ASSOCIATE PROFESSOR OF ENGLISH documented as of this encounter Plan of Treatment Upcoming Encounters Date Type Department Care Team (Latest Contact Info) Description 04/25/2024 1:50 PM CDT Therapy Visit [facility] Rehabilitation Services [address] [place] [phone] [place] [address] [place] [address] 05/08/[address] [facility] Neurology Clinic [address] [phone] Torri Francois MD [address] [place] [address] [phone] *-*INCOMING RECORDS*-* 05/08/2024 11:30 AM CDT Ancillary Procedure [facility] [address] [phone] 05/08/2024 2:45 PM CDT Office Visit [facility] Neurology Clinic [address] [phone] Abhishek Acevedo PA-C [address] [facility] [address] [place] [address] Torri Francois MD [address] [place] [address] 223175 06/07/2024 11:20 AM CDT Office Visit [facility] G[facility]enterology [facility] [address] [phone] Latricia Pettit PA-C [address] [place] [address] 691545 Abby Vasquez MD [address] [place] [address] 275915 07/06/2024 3:30 PM CDT Virtual Visit [facility] Heart [address] [phone] Marlo Madsen MD [address] [place] [address] [phone] 10/03/2024 3:15 PM ASSOCIATE PROFESSOR OF ENGLISH Virtual Visit [facility]ology [facility] [address] [phone] Latricia Pettit PA-C [address] [place] [address] 464775 10/10/2024 8:30 AM ASSOCIATE PROFESSOR OF ENGLISH Office Visit [facility] Sleep Centers [address] [phone] Abhishek Acevedo PA-C [address] [phone] 01/11/2025 9:00 AM CDT Virtual Visit [facility] Neurology Clinic [address] [phone] Rosalba Pendleton APRN ARCHITECTURAL TECHNOLOGIST [address] [place] [address] documented as of this encounter Visit Diagnoses Not on filedocumented in this encounter Additional Health Concerns Assessment Noted Time PHQ-9 Depression Total Score: 12 024 12:52 PM ASSOCIATE PROFESSOR OF ENGLISH documented as of this encounter Care Teams Propellant Charge Loader Relationship Specialty Start Date End Date Monty Musa MD PCP - General Family Medicine 08/13/21 Alfonso Tang Family [facility] 08/13/21 Dayanara Bee MD [address] [place] [address] 032735 Pediatrics 12/26/14 Min Lange MD [address] [place] [address] Neurology 03/30/16 Marlo Madsen MD [address] [place] [address] 216765 Cardiology 10/27/16 Mel Buckley, RN Nurse Coordinator Physical Medicine and Rehabilitation 12/02/16 Douglas Cadet MD [address] [place] [address] Gastroenterology 08/13/21 Rosalba Pendleton APRN ARCHITECTURAL TECHNOLOGIST [address] [place] [address] 123885 Nurse Practitioner Neurology 09/05/21 Rosalba Pendleton APRN ARCHITECTURAL TECHNOLOGIST [address] [place] [address]852 Assigned Neuroscience Provider 11/09/21 Marlo Madsen MD [address] [place] [address]26 Assigned Heart and Vascular Provider 03/14/22 Abby Vasquez MD [address] [place] [address] Gastroenterology 07/16/22 Airam Hodges PA-C [address] [place] [address] 469735 Physician Machine Stripper Cutter Surgery 07/19/23 Zain Quintana MD [address] [place] [address] 920345 Assigned Surgical Provider 10/07/23 Latricia Pettit PA-C [address] [place] [address] 002205 Assigned Gastroenterology Provider 10/15/23 documented as of this encounter
--- OUTSIDE RECORDS SUMMARY | 2024-04-22 13:08 | XMS_ITS | Encounter Summary ---
Author Organization [place] Address [facility] [place] [address] Care Team Providers Care Hospital Wellness Coordinator Name Role Phone Monty Musa MD Primary Care Provider Alfonso Tang Unavailable Unavailable Dayanara Bee MD Unavailable [phone] Min Lange MD Unavailable Unavailable Marlo Madsen MD Unavailable [phone] Mel Buckley RN Unavailable [phone] Douglas Cadet MD Unavailable [phone] Rosalba Pendleton APRN BUSINESS JOB TITLES Unavaila ble Rosalba Pendleton APRN BUSINESS JOB TITLES Unavaila ble Marlo Madsen MD Unavailable [phone] Abby Vasquez MD Unavailable Airam Hodges PA-C Unavailable [phone] Zain Quintana MD Unavailable [phone] Latricia Pettit PA-C Unavailable [phone] Reason for Visit * Rehab Therapy Integrated Services (Routine) - Authorized Specialty Diagnoses / Procedures Referred By Emily t Referred To Contact Diagnoses Slow transit constipation [place] [address] [place] [address] Referral ID Status Reason Start Date Expiration Date V isits Requested Visits Authorized [id number] Authorized 09/13/2023 09/12/2024 365 365 Encounter Details Date Type Department Care Team (Latest Contact Info) Description 01/26/2024 12:50 PM CDT Therapy Visit [facility] [address] [facility] [address] [place] [address] [place] [address] [place] [address] Slow transit constipation (Primary Dx) Social History [...] Sex Assigned at Female 10/31/2021 7:59 AM HOSPITAL CHIEF EXECUTIVE OFFICER Gender Identity Female 10/31/2021 7:59 AM HOSPITAL CHIEF EXECUTIVE OFFICER Sexual Orientation Straight 10/31/2021 7: 59 AM HOSPITAL CHIEF EXECUTIVE OFFICER documented as of this encounter Plan of Treatment Upcoming Encounters Date Type Department Care Team (Latest Contact Info) Description 04/25/2024 1:50 PM CDT Therapy Visit [address] [place] [phone] Lainey Simon, PT [address] [place] [address] 05/08/2024 PRE VISIT [facility] Neurology Clinic [place] [address] [facility] 3rd [place] [address] Torri Francois MD [address] [place] [address] 911005 *-*INCOMING RECORDS*-* 05/08/2024 11:30 AM CDT Ancillary Procedure [facility] [address] [phone] 05/08/2024 2:45 PM CDT Office Visit [facility] Neurology Clinic [address] [phone] Abhishek Acevedo PA-C [address] [address] Torri Francois MD [address] [place] [address] [phone] 06/07/2024 11:20 AM CDT Office Visit [facility] Gastroenterology Clinic [address] [phone] Latricia Pettit PA-C [address] [place] [address] 807315 Abby Vasquez MD [address] [place] [address] 707155 07/06/2024 3:30 PM CDT Virtual Visit [facility] Heart Clinic [address] [phone] Marlo Madsen MD [address] [place] [address] 442325 10/03/2024 3:15 PM HOSPITAL CHIEF EXECUTIVE OFFICER Virtual Visit [facility] Gastroenterology Clinic [address] [phone] Latricia Pettit PA-C [address] [place] [address] [phone] 10/10/2024 8:30 AM HOSPITAL CHIEF EXECUTIVE OFFICER Office Visit [facility] Sleep Centers [place] 6363 [facility] 103 [place] [phone] Abhishek Acevedo PA-C 3363 [facility] 103 [place] [address] 01/11/2025 9:00 AM CDT Virtual Visit [facility] Neurology Clinic [place] 0824[address] [facility] 3rd [place] [address] Rosalba Pendleton, BODY BUILDER BUSINESS JOB TITLES 909 [facility] [id number] [place] [address] documented as of this encounter Visit Diagnoses Diagnosis Slow transit constipation- Primary documented in this encounter Additional Health Concerns Assessment Noted Time PHQ-9 Depression Total Score: 12 024 12:52 PM HOSPITAL CHIEF EXECUTIVE OFFICER documented as of this encounter Care Teams Hospital Wellness Coordinator Relationship Specialty Start Date End Date Monty Musa MD PCP - General Family Medicine 08/13/21 Alfonso Tang [facility] 08/13/21 Dayanara Bee MD [address] [place] [address] [phone] Pediatrics 12/26/14 Min Lange MD [address] [address] Neurology 03/30/16 Marlo Madsen MD [address] [place] [address] [phone] Cardiology 10/27/16 Mel Buckley, RN Nurse Coordinator Physical Medicine and Rehabilitation 12/02/16 Douglas Cadet MD [address] [place] [address] 076737 [phone] Gastroenterology 08/13/21 Rosalba Pendleton APRN BUSINESS JOB TITLES [address] [place] [address] Nurse Practitioner Neurology 09/05/21 Rosalba Pendleton APRN BUSINESS JOB TITLES [address] [place] [address] 11378 Assigned Neuroscience Provider 11/09/21 Marlo Madsen MD [address] [place] [address]016 Assigned Heart and Vascular Provider 03/14/22 Abby Vasquez MD [address] [place] [address] Gastroenterology 07/16/22 Airam Hodges PA-C [address] [place] [address] Physician Box Blank Machine Feeder Surgery 07/19/23 Zain Quintana MD [address] [place] [address] 29548 Assigned Surgical Provider 10/07/23 Latricia Pettit PA-C [address] [place] [address] Assigned Gastroenterology Provider 10/15/23 documented as of this encounter
--- OUTSIDE RECORDS SUMMARY | 2024-04-22 13:08 | XMS_ITS | Encounter Summary ---
Author Organization [place] Address Formerly [facility]0 [facility] [place] [address] Care Team Providers Care Wellness Coach Name Role Phone Monty Musa MD Primary Care Provider Alfonso Tang Unavailable Unavailable Dayanara Bee MD Unavailable [phone] Min Lange MD Unavailable Unavailable Marlo Madsen MD Unavailable [phone] Mel Buckley RN Unavailable [phone] Douglas Cadet MD Unavailable [phone] Rosalba Pendleton APRN HISTORICAL SOCIETY DIRECTOR Unavaila ble Rosalba Pendleton APRN HISTORICAL SOCIETY DIRECTOR Unavaila ble Marlo Madsen MD Unavailable [phone] Abby Vasquez MD Unavailable Airam Hodges PA-C Unavailable [phone] Zain Quintana MD Unavailable [phone] Latricia Pettit PA-C Unavailable [phone] Encounter Details Date Type Department Care Team (Late st Contact Info) Description 10/13/2023 [facility] [place] [facility] Gastroenterology Clinic [place] [address] [address] Vivian Carter Social History Tobacco Use [...] Sex Assigned at Female 10/31/2021 7:59 AM OUTSOLE CEMENTER Gender Identity Female 10/31/2021 7:59 AM OUTSOLE CEMENTER Sexual Orientation Straight 10/31/2021 7: 59 AM OUTSOLE CEMENTER documented as of this encounter Plan of Treatment Upcoming Encounters Date Type Department Care Team (Latest Contact Info) Description 04/25/2024 1:50 PM CDT Therapy Visit [facility] Rehabilitation Services [address] [place] [address] [place] [address] [place] [address] 05/08/2024 PRE VISIT [facility] Neurology Clinic [address] [address] Torri Francois MD [address] [place] [address] 440325 *-*INCOMING RECORDS*-* 05/08/2024 11:30 AM CDT Ancillary Procedure [facility] [address] [phone] 05/08/2024 2:45 PM CDT Office Visit [facility] Neurology Clinic [address] [address] Abhishek Acevedo PA-C [address] [address] Torri Francois MD [address] [place] [address] 018345 06/07/2024 11:20 AM CDT Office Visit [facility] Gastroenterology Clinic [address] [phone] Latricia Pettit PA-C [address] [place] [address] 512495 Abby Vasquez MD [address] [place] [address] 933995 07/06/2024 3:30 PM CDT Virtual Visit [facility] Heart [address] [phone] Marlo Madsen MD [address] [place] [address] 961015 10/03/2024 3:15 PM OUTSOLE CEMENTER Virtual Visit [facility] Gastroenterology Clinic [address] [phone] Latricia Pettit PA-C [address] [place] [address] 745095 10/10/2024 8:30 AM OUTSOLE CEMENTER Office Visit [facility] Sleep Centers [address] [phone] Abhishek Acevedo PA-C [address] [phone] 01/11/2025 9:00 AM CDT Virtual Visit [facility] Neurology Clinic [address] 3rd [place] [phone] Rosalba Pendleton APRN HISTORICAL SOCIETY DIRECTOR [address] [place] [address] documented as of this encounter Visit Diagnoses Not on filedocumented in this encounter Additional Health Concerns Assessment Noted Time PHQ-9 Depression Total Score: 12 023 8:53 AM CDT documented as of this encounter Care Teams Wellness Coach Relationship Specialty Start Date End Date Monty Musa MD PCP - General Family Medicine 08/13/21 Alfonso Tang [facility] 08/13/21 Dayanara Bee MD [address] [place] [address] 580995 Pediatrics 12/26/14 Min Lange MD [address] [place] [address] Neurology 03/30/16 Marlo Madsen MD [address] [place] [address] 711195 Cardiology 10/27/16 Mel Buckley, RN Nurse Coordinator Physical Medicine and Rehabilitation 12/02/16 Douglas Cadet MD [address] [place] [address] Gastroenterology 08/13/21 Rosalba Pendleton APRN HISTORICAL SOCIETY DIRECTOR [address] [place] [address] 07584 Nurse Practitioner Neurology 09/05/21 Rosalba Pendleton APRN HISTORICAL SOCIETY DIRECTOR [address] [place] [address] 47089 Assigned Neuroscience Provider 11/09/21 Marlo Madsen MD [address] [place] [address] 41071 Assigned Heart and Vascular Provider 03/14/22 Abby Vasquez MD [address] [place] [address] Gastroenterology 07/16/22 Airam Hodges PA-C [address] [place] [address] 883795 Physician Armhole Presser Surgery 07/19/23 Zain Quintana MD [address] [place] [address] 695355 Assigned Surgical Provider 10/07/23 Latricia Pettit PA-C [address] [place] [address] 684905 Assigned Gastroenterology Provider 10/15/23 documented as of this encounter
--- OUTSIDE RECORDS SUMMARY | 2024-04-22 13:08 | XMS_ITS | Encounter Summary ---
Author Organization [place] Address [address] [facility] [place] [address] Care Team Providers Care Ornamental Brick Installer Name Role Phone Monty Musa MD Primary Care Provider [phone] Alfonso Tang Unavailable Unavailable Dayanara Bee MD Unavailable [phone] Min Lange MD Unavailable Unavailable Marlo Madsen MD Unavailable [phone] Mel Buckley RN Unavailable [phone] Douglas Cadet MD Unavailable [phone] Rosalba Pendleton APRN MATH AND PHYSICS INSTRUCTOR Unavaila ble Rosalba Pendleton APRN MATH AND PHYSICS INSTRUCTOR Unavaila ble Marlo Madsen MD Unavailable [phone] Abby Vasquez MD Unavailable Airam Hodges PA-C Unavailable [phone] Zain Quintana MD Unavailable [phone] Latricia Pettit PA-C Unavailable [phone] Encounter Details Date Type Department Care Team (Late st Contact Info) Description 01/19/2024 [facility] Heart [address] [address] Marlo Madsen MD [address] [place] [address] 427805 Social History Tobacco Use Types Packs/Day Years [...] Sex Assigned at Female 10/31/2021 7:59 AM BELLSTAFF Gender Identity Female 10/31/2021 7:59 AM BELLSTAFF Sexual Orientation Straight 10/31/2021 7: 59 AM BELLSTAFF documented as of this encounter Miscellaneous Notes * Telephone Encounter - Teresa Wren - 01/19/2024 1:47 PM CDT Patient confirmed scheduled appointment: Date: 05/18/24 Time: 230pm Visit type: csc Provider: gabriel Location: csc Testing/imaging: n/a Additional notes: n/a documented in this encounter Plan of Treatment Upcoming Encounters Date Type Department Care Team (Latest Contact Info) Description 04/25/2024 1:50 PM CDT Therapy Visit [facility] Rehabilitation Services [address] [place] [phone] [place] [address] [place] [address] 05/08/2024 PRE VISIT [facility] Neurology Clinic [place] 909 [facility] 3rd [place] [address] Torri Francois MD [address] [place] [address] 832975 *-*INCOMING RECORDS*-* 05/08/2024 11:30 AM CDT Ancillary Procedure [facility] EEG [facility] Outpatient [facility] [address] [phone] 05/08/2024 2:45 PM CDT Office Visit [facility] Neurology Clinic [address] [phone] Abhishek Acevedo PA-C [address] [address] Torri Francois MD [address] [place] [address] 017875 06/07/2024 11:20 AM CDT Office Visit [facility] Gastroenterology Clinic [address] [phone] Latricia Pettit PA-C [address] [place] [address] 358505 Abby Vasquez MD [address] [place] [address] 011815 07/06/2024 3:30 PM CDT Virtual Visit [facility] Heart Clinic [address] [phone] Marlo Madsen MD [address] [place] [address] 313155 10/03/2024 3:15 PM BELLSTAFF Virtual Visit [facility] Gastroenterology Clinic [address] [phone] Latricia Pettit PA-C [address] [place] [address] 575125 10/10/2024 8:30 AM BELLSTAFF Office Visit [facility] Sleep Centers [place] 6363 [facility] 103 [place] [phone] Abhishek Acevedo PA-C 4363 [facility] 103 [place] [address] 01/11/2025 9:00 AM CDT Virtual Visit [facility] Neurology Clinic [place] 141139 [facility] 3rd [place] [phone] Rosalba Pendleton, DRAWING KILN SUPERVISOR MATH AND PHYSICS INSTRUCTOR 909 [facility] [id number] [place] [address] documented as of this encounter Visit Diagnoses Not on filedocumented in this encounter Additional Health Concerns Assessment Noted Time PHQ-9 Depression Total Score: 12 024 12:52 PM BELLSTAFF documented as of this encounter Care Teams Ornamental Brick Installer Relationship Specialty Start Date End Date Monty Musa MD PCP - General Family Medicine 08/13/21 Alfonso Tang Family [facility] 08/13/21 Dayanara Bee MD [address] [place] [address] 755505 Pediatrics 12/26/14 Min Lange MD [address] [address] Neurology 03/30/16 Marlo Madsen MD [address] [place] [address] 304305 Cardiology 10/27/16 Mel Buckley, RN Nurse Coordinator Physical Medicine and Rehabilitation 12/02/16 Douglas Cadet MD [address] [place] [address] Gastroenterology 08/13/21 Rosalba Pendleton APRN MATH AND PHYSICS INSTRUCTOR [address] [place] [address] Nurse Practitioner Neurology 09/05/21 Rosalba Pendleton APRN MATH AND PHYSICS INSTRUCTOR [address] [place] [address] 57637 Assigned Neuroscience Provider 11/09/21 Marlo Madsen MD [address] [place] [address] Assigned Heart and Vascular Provider 03/14/22 Abby Vasquez MD [address] [place] [address] Gastroenterology 07/16/22 Airam Hodges PA-C [address] [place] [address] Physician Farm Supervisor Surgery 07/19/23 Zain Quintana MD [address] [place] [address] 25201 Assigned Surgical Provider 10/07/23 Latricia Pettit PA-C [address] [place] [address]861 Assigned Gastroenterology Provider 10/15/23 documented as of this encounter
--- OUTSIDE RECORDS SUMMARY | 2024-04-22 13:08 | XMS_ITS | Encounter Summary ---
Author Organization [place] Address 24[address] [facility] [place] [address] Care Team Providers Care Practice Specialist Name Role Phone Monty Musa MD Primary Care Provider Alfonso Tang Unavailable Unavailable Dayanara Bee MD Unavailable [phone] Min Lange MD Unavailable Unavailable Marlo Madsen MD Unavailable [phone] Mel Buckley RN Unavailable [phone] Douglas Cadet MD Unavailable [phone] Rosalba Pendleton APRN BED LASTER Unavaila ble Rosalba Pendleton APRN BED LASTER Unavaila ble Marlo Madsen MD Unavailable [phone] Abby Vasquez MD Unavailable Airam Hodges PA-C Unavailable [phone] Zain Quintana MD Unavailable [phone] Latricia Pettit PA-C Unavailable [phone] Encounter Details Date Type Department Care Team (Late st Contact Info) Description 02/11/[address] [facility] Heart [address] [address] Marlo Madsen MD [address] [place] [address] Social History Tobacco Use Types Packs/Day [...] Sex Assigned at Female 10/31/2021 7:59 AM PICK PACK WORKER Gender Identity Female 10/31/2021 7:59 AM PICK PACK WORKER Sexual Orientation Straight 10/31/2021 7: 59 AM PICK PACK WORKER documented as of this encounter Miscellaneous Notes * Telephone Encounter - Kimo Simmons - 02/11/2024 2:38 PM CDT 02/10 Left Voicemail (1st Attempt) and MyChart (1st Attempt) for the patient to call back and schedule the following: Appointment type: Return EP Provider: Tena Return date: next available Specialty phone number: [phone] opt 1 Additional appointment(s) needed: n/a Additonal Notes: n/a documented in this encounter Plan of Treatment Upcoming Encounters Date Type Department Care Team (Latest Contact Info) Description 04/25/2024 1:50 PM CDT Therapy Visit [facility] Rehabilitation Services [address] [place] [address] [place] [address] [place], [place] 078227 05/08/[address] [facility] Neurology Clinic [place] [address] [place] [address] 3rd [place] [address] Torri Francois MD [address] [place] [address] *-*INCOMING RECORDS*-* 05/08/2024 11:30 AM CDT Ancillary Procedure [facility] EEG [facility] Outpatient [facility] [address] [phone] 05/08/2024 2:45 PM CDT Office Visit [facility] Neurology Clinic [address] [phone] Abhishek Acevedo PA-C [address] [address] Torri Francois MD [address] [place] [address] 479675 06/07/2024 11:20 AM CDT Office Visit [facility] Gastroenterology Clinic [address] [phone] Latricia Pettit PALaurelC [address] [place] [address] 630215 Abby Vasquez MD [address] [place] [address] [phone] 07/06/2024 3:30 PM CDT Virtual Visit [facility] Heart Clinic [address] [phone] Marlo Madsen MD [address] [place] [address] 164545 10/03/2024 3:15 PM PICK PACK WORKER Virtual Visit [facility] Gastroenterology Clinic [address] [phone] Latricia Pettit PA-C [address] [place] [address] 10/10/2024 8:30 AM PICK PACK WORKER Office Visit [facility] Sleep Centers [place] 6363 [facility] 103 [place] [phone] Abhishek Acevedo PA-C 5463 [facility] 103 [place] [phone] 01/11/2025 9:00 AM CDT Virtual Visit [facility] Neurology Clinic [place] [address] [place] [address] 3rd [place] [phone] Rosalba Pendleton, [facility] [place] 909 [facility] [id number] [place], [place] 859725 documented as of this encounter Visit Diagnoses Not on filedocumented in this encounter Additional Health Concerns Assessment Noted Time PHQ-9 Depression Total Score: 12 024 12:52 PM PICK PACK WORKER documented as of this encounter Care Teams Practice Specialist Relationship Specialty Start Date End Date Monty Musa MD PCP - General Family Medicine 08/13/21 Alfonso Tang Family [facility] 08/13/21 Dayanara Bee MD [address] [phone] Pediatrics 12/26/14 Min Lange MD [address] [address] Neurology 03/30/16 Marlo Madsen MD [address] 799875 Cardiology 10/27/16 Mel Buckley, RN Nurse Coordinator Physical Medicine and Rehabilitation 12/02/16 Douglas Cadet MD [address] [place] [address] Gastroenterology 08/13/21 Rosalba Pendleton APRN BED LASTER [address] [place] [address] Nurse Practitioner Neurology 09/05/21 Rosalba Pendleton APRN BED LASTER [address] [place] [address]30 Assigned Neuroscience Provider 11/09/21 Marlo Madsen MD [address] [place] [address] 740515 Assigned Heart and Vascular Provider 03/14/22 Abby Vaqsuez MD [address] [place] [address] 591105 Gastroenterology 07/16/22 Airam Hodges PA-C [address] [place] [address] Physician Gill Net Stringer Surgery 07/19/23 Zain Quintana MD [address] [place] [address]94 Assigned Surgical Provider 10/07/23 Latricia Pettit PA-C [address] [place] [address] Assigned Gastroenterology Provider 10/15/23 documented as of this encounter
--- OUTSIDE RECORDS SUMMARY | 2024-04-22 13:08 | XMS_ITS | Encounter Summary ---
Author Organization [place] Address Critical access hospital[facility] [place] [address] Care Team Providers Care Vocational Technical Education Teacher Name Role Phone Monty Musa MD Primary Care Provider Alfonso Tang Unavailable Unavailable Dayanara Bee MD Unavailable [phone] Min Lange MD Unavailable Unavailable Marlo Madsen MD Unavailable [phone] Mel Buckley RN Unavailable [phone] Douglas Cadet MD Unavailable [phone] Rosalba Pendleton APRN WEB DESIGN INTERN Unavaila ble Rosalba Pendleton APRN WEB DESIGN INTERN Unavaila ble Marlo Madsen MD Unavailable [phone] Abby Vasquez MD Unavailable Airam Hodges PA-C Unavailable [phone] Zain Quintana MD Unavailable [phone] Latricia Pettit PA-C Unavailable [phone] Encounter Details Date Type Department Care Team (Late st Contact Info) Description 11/11/2023 [facility] [place] Medical Advice [facility] Gastroenterology Clinic [place] [address] [address] Vivian Carter Social History Tobacco [...] Assigned at Female 10/31/2021 7:59 AM DIE CUTTER OPERATOR Gender Identity Female 10/31/2021 7:59 AM DIE CUTTER OPERATOR Sexual Orientation Straight 10/31/2021 7: 59 AM DIE CUTTER OPERATOR documented as of this encounter Plan of Treatment Upcoming Encounters Date Type Department Care Team (Latest Contact Info) Description 04/25/2024 1:50 PM CDT Therapy Visit [facility] Rehabilitation Services [address] [place] [phone] [place] [address] [place] [address] 05/08/2024 PRE VISIT [facility] Neurology Clinic [address] [address] Torri Francois MD [address] [place] [address] 867235 *-*INCOMING RECORDS*-* 05/08/2024 11:30 AM CDT Ancillary Procedure [facility] EEG [facility] Outpatient [facility] [address] [phone] 05/08/2024 2:45 PM CDT Office Visit [facility] Neurology Clinic [address] [phone] Abhishek Acevedo PA-C [address] [address] Torri Francois MD [address] [place] [address] 233785 06/07/2024 11:20 AM CDT Office Visit [facility] Gastroenterology Clinic [address] [phone] Latricia Pettit PA-C [address] [place] [address] 469095 Abby Vasquez MD [address] [place] [address] 308015 07/06/2024 3:30 PM CDT Virtual Visit [facility] Heart [address] [phone] Marlo Madsen MD [address] [place] [address] 704765 10/03/2024 3:15 PM DIE CUTTER OPERATOR Virtual Visit [facility] Gastroenterology Clinic [address] [phone] Latricia Pettit PA-C [address] [place] [address] 065565 10/10/2024 8:30 AM DIE CUTTER OPERATOR Office Visit [facility] Sleep Centers [address] [phone] Abhishek Acevedo PA-C [address] [phone] 01/11/2025 9:00 AM CDT Virtual Visit [facility] Neurology Clinic [address] 3rd [place] [phone] Rosalba Pendleton APRN WEB DESIGN INTERN [address] [place] [address] documented as of this encounter Visit Diagnoses Not on filedocumented in this encounter Additional Health Concerns Assessment Noted Time PHQ-9 Depression Total Score: 12 024 12:52 PM DIE CUTTER OPERATOR documented as of this encounter Care Teams Vocational Technical Education Teacher Relationship Specialty Start Date End Date Monty Musa MD PCP - General Family Medicine 08/13/21 Alfonso Tang Family Practice 08/13/21 Dayanara Bee MD [address] [place] [address] 068585 Pediatrics 12/26/14 Min Lange MD [address] [place] [address] Neurology 03/30/16 Marlo Madsen MD [address] [place] [address] 239275 Cardiology 10/27/16 Mel Buckley, RN Nurse Coordinator Physical Medicine and Rehabilitation 12/02/16 Douglas Cadet MD [address] [place] [address]283 Gastroenterology 08/13/21 Rosalba Pendleton APRN WEB DESIGN INTERN [address] [place] [address] 397775 Nurse Practitioner Neurology 09/05/21 Rosalba Pendleton APRN WEB DESIGN INTERN [address] [place] [address] 99432 Assigned Neuroscience Provider 11/09/21 Marlo Madsen MD [address] [place] [address] 23751 Assigned Heart and Vascular Provider 03/14/22 Abby Vasquez MD [address] [place] [address] 99960 Gastroenterology 07/16/22 Airam Hodges PA-C [address] [place] [address] 462705 Physician Blind Lacer Surgery 07/19/23 Zain Quintana MD [address] [place] [address] 399255 Assigned Surgical Provider 10/07/23 Latricia Pettit PA-C [address] [place] [address] 206645 Assigned Gastroenterology Provider 10/15/23 documented as of this encounter
--- OUTSIDE RECORDS SUMMARY | 2024-04-22 13:08 | XMS_ITS | Encounter Summary ---
Author Organization [address] Address [address] [facility] [place] [address] Care Team Providers Care Disulfurizer Tender Name Role Phone Monty Musa MD Primary Care Provider Alfonso Tang Unavailable Unavailable Dayanara Bee MD Unavailable [phone] Min Lange MD Unavailable Unavailable Marlo Madsen MD Unavailable [phone] Mel Buckley RN Unavailable [phone] [place] Cadet MD Unavailable [phone] Rosalba Pendleton APRN CHEMOTHERAPIST Unavaila ble Rosalba Pendleton APRN CHEMOTHERAPIST Unavaila ble Marlo Madsen MD Unavailable [phone] Abby Vasquez MD Unavailable Airam Hodges PA-C Unavailable [phone] Zain Quintana MD Unavailable [phone] Latricia Pettit PA-C Unavailable [phone] Reason for Visit * Reason Comments Medication Refill Encounter Details Date Type Department Care Team (Late st Contact Info) Description 11/17/2023 [facility] Neurology Clinic [address] [phone] Rosalba Pendleton APRN [address] [id number] [place] [id number] Medication Refill Social History Tobacco Use Types [...] Sex Assigned at Female 10/31/2021 7:59 AM MARKETING RESEARCH INTERN Gender Identity Female 10/31/2021 7:59 AM MARKETING RESEARCH INTERN Sexual Orientation Straight 10/31/2021 7: 59 AM MARKETING RESEARCH INTERN documented as of this encounter Plan of Treatment Upcoming Encounters Date Type Department Care Team (Latest Contact Info) Description 04/25/2024 1:50 PM CDT Therapy Visit [facility] Rehabilitation Services [address] [place] [address] [place] [address] [place], [place] [address] 05/08/2024 PRE VISIT [facility] Neurology Clinic [address] [address] Torri Francois MD [address] [place] [address] 914325 *-*INCOMING RECORDS*-* 05/08/2024 11:30 AM CDT Ancillary Procedure [facility] EEG [facility] Outpatient Clinic [address] [phone] 05/08/2024 2:45 PM CDT Office Visit [facility] Neurology Clinic [address] [phone] Abhishek Acevedo PA-C [address] [facility] [place] [address] [address] Torri Francois MD [address] [place] [address] 06/07/2024 11:20 AM CDT Office Visit [facility] Gastroenterology Clinic [address] [phone] Latricia Pettit PA-C [address] [place] [address] 491305 Abby Vasquez MD [address] [place] [address] 855165 07/06/2024 3:30 PM CDT Virtual Visit [facility] Heart Clinic [address] [phone] Marlo Madsen MD [address] [place] [address] 339285 10/03/2024 3:15 PM MARKETING RESEARCH INTERN Virtual Visit [facility] Gastroenterology Clinic [address] [phone] Latricia Pettit PA-C [address] [place] [address] 098975 10/10/2024 8:30 AM MARKETING RESEARCH INTERN Office Visit [facility] Sleep Centers [place] [address] [facility] [address] [phone] Abhishek Acevedo PA-C [address] [facility] [address] [id number] 01/11/2025 9:00 AM CDT Virtual Visit [facility] Neurology Clinic [place] 9[address] [facility] 3rd [place] [phone] Rosalba Pendleton APRN CHEMOTHERAPIST 909 [facility] [id number] [place] [address] documented as of this encounter Visit Diagnoses Diagnosis Intractable 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 Chronic migraine without aura, with intractable migraine, so stated, without mention of status migrainosus documented in this encounter Additional Health Concerns Assessment Noted Time PHQ-9 Depression Total Score: 12 024 12:52 PM MARKETING RESEARCH INTERN documented as of this encounter Care Teams Disulfurizer Tender Relationship Specialty Start Date End Date Monty Musa MD PCP - General Family Medicine 08/13/21 Alfonso Tang Family Practice 08/13/21 Dayanara Bee MD [address] 716275 Pediatrics 12/26/14 Min Lange MD [address] [address] Neurology 03/30/16 Marlo Madsen MD [address] [place] [address] Cardiology 10/27/16 Mel Buckley, RN Nurse Coordinator Physical Medicine and Rehabilitation 12/02/16 [place] Cadet MD [address] [place] [address] Gastroenterology 08/13/21 Rosalba Pendleton APRN CHEMOTHERAPIST [address] [place] [id number] [address] Nurse Practitioner Neurology 09/05/21 Rosalba Pendleton APRN CHEMOTHERAPIST [address] [place], [place] [id number] [address] Assigned Neuroscience Provider 11/09/21 Marlo Madsen MD [address] [place] [address] 75 [place] 670325 Assigned Heart and Vascular Provider 03/14/22 Abby Vasquez MD [address] [place] [address] 536755 Gastroenterology 07/16/22 Airam Hodges PA-C 500 [place], [place] 211035 Physician Claims Representative Surgery 07/19/23 Zain Quintana MD [address] [place] [address] Assigned Surgical Provider 10/07/23 Latricia Pettit PA-C [address] [place] [address] 19898 Assigned Gastroenterology Provider 10/15/23 documented as of this encounter
--- OUTSIDE RECORDS SUMMARY | 2024-04-22 13:09 | XMS_ITS | Encounter Summary ---
Author Organization [place] Address [address] [facility] [place] [address] Care Team Providers Care Pie Bakery Laborer Name Role Phone Monty Musa MD Primary Care Provider [phone] Alfonso Tang Unavailable Unavailable Dayanara Bee MD Unavailable [phone] Min Lange MD Unavailable Unavailable Marlo Madsen MD Unavailable [phone] Mel Buckley RN Unavailable [phone] [place] Cadet MD Unavailable [phone] Rosalba Pendleton APRN SCANNING COORDINATOR Unavaila ble Rosalba Pendleton APRN SCANNING COORDINATOR Unavaila ble [place] Cadet MD Unavailable [phone] Marlo Madsen MD Unavailable [phone] Abby Vasquez MD Unavailable Abby Vasquez MD Unavailable Airam Hodges PA-C Unavailable [phone] Zain Quintana MD Unavailable [phone] Latricia Pettit PA-C Unavailable [phone] Encounter Details Date Type Department Care Team (Late st Contact Info) Description 02/20/2022 MyC Medical Advice [facility] Gastroenterology Clinic [address] [address] Cindy Vines CMA Social History Tobacco Use Types Packs/Day Years Used Date Smoking Tobacco: Never Smokeless Tobacco: Never Alcohol Use Standard Drinks/Week Comments No 0 (1 standard drink = 0.6 oz pur e alcohol) PHQ-2 Answer Date Recorded PHQ-2 Score 4 01/14/2022 Sex and Gender Information Value Date Recorded Sex Assigned at Female 10/31/2021 7:59 AM WEB SITE SPECIALIST Gender Identity Female 10/31/2021 7:59 AM WEB SITE SPECIALIST Sexual Orientation Straight 10/31/2021 7: 59 AM WEB SITE SPECIALIST documented as of this encounter Plan of Treatment Upcoming Encounters Date Type Department Care Team (Latest Contact Info) Description 04/25/2024 1:50 PM CDT Therapy Visit [facility] Rehabilitation Services [address] [place] [address] [place] [address] [place] [address] 05/08/2024 PRE VISIT [facility] Neurology Clinic [address] [address] Torri Francois MD [address] [place] [address] 982785 *-*INCOMING RECORDS*-* 05/08/2024 11:30 AM CDT Ancillary Procedure [facility] EEG [facility] Outpatient [facility] [address] [phone] 05/08/2024 2:45 PM CDT Office Visit [facility] Neurology Clinic [address] [phone] Abhishek Acevedo PA-C [address] [phone] Torri Francois MD [address] [place] [address] 545085 06/07/2024 11:20 AM CDT Office Visit [facility] Gastroenterology Clinic [address] [phone] Latricia Pettit PA-C [address] [place] [address] Abby Vasquez MD [address] [place] [address] 228925 07/06/2024 3:30 PM CDT Virtual Visit [facility] Heart [address] [phone] Marlo Madsen MD [address] [place] [address] 10/03/2024 3:15 PM WEB SITE SPECIALIST Virtual Visit [facility] Gastroenterology Clinic [address] [phone] Latricia Pettit PA-C [address] [place] [address] 928025 10/10/2024 8:30 AM WEB SITE SPECIALIST Office Visit [facility] Sleep Centers [place] [address] [phone] Abhishek Acevedo PA-C [address] [address] 01/11/2025 9:00 AM CDT Virtual Visit [facility] Neurology Clinic [address] [phone] Rosalba Pendleton APRN SCANNING COORDINATOR [address] 176795 documented as of this encounter Visit Diagnoses Not on filedocumented in this encounter Additional Health Concerns Infection Onset Date Last Indicated Resolved Time Rule Out COVID-19 04/03/2023 04/03/2023 04/04/2023 6:30 PM CDT Assessment Noted Time PHQ-9 Depression Total Score: 17 022 7:02 AM CDT documented as of this encounter Care Teams Pie Bakery Laborer Relationship Specialty Start Date End Date Monty Musa MD PCP - General Family Medicine 08/13/21 Alfonso Tang Family Practice 08/13/21 Dayanara Bee MD [address] [address] Pediatrics 12/26/14 Min Lange MD [address] [address] Neurology 03/30/16 Marlo Madsen MD [address] 715085 Cardiology 10/27/16 Mel Buckley, RN Nurse Coordinator Physical Medicine and Rehabilitation 12/02/16 [place] Cadet MD [address] [place] [address] Gastroenterology 08/13/21 Rosalba Pendleton APRN SCANNING COORDINATOR [address] [place] [address] 668865 Nurse Practitioner Neurology 09/05/21 Rosalba Pendleton APRN CNP [address] [place] [address] [id number] [place] [address] Assigned Neuroscience Provider 11/09/21 [place] Cadet MD [address] [place] [address] Assigned Gastroenterology Provider 03/14/22 09/03/23 Marlo Madsen MD [address] [place] [address] 75 [place] [address] Assigned Heart and Vascular Provider 03/14/22 Abby Vasquez MD [address] [place] [address] Gastroenterology 07/16/22 Abby Vasquez MD [address] [place] [address] Assigned PCP 09/26/22 10/06/23 Airam Hodges PA-C [address] [place] [address] Physician Mogul Operator Surgery 07/19/23 Zain Quintana MD [address] [place] [address] 046215 Assigned Surgical Provider 10/07/23 Latricia Pettit PA-C [address] [place] [address] Assigned Gastroenterology Provider 10/15/23 documented as of this encounter
--- OUTSIDE RECORDS SUMMARY | 2024-04-22 13:09 | XMS_ITS | Encounter Summary ---
Author Organization [employer] Address [address] [facility]. [address] Care Team Providers Care Diagnostic Cardiac Sonographer Name Role Phone Monty Musa MD Primary Care Provider [phone] Alfonso Tang Unavailable Unavailable Dayanara Bee MD Unavailable [phone] Min Lange MD Unavailable Unavailable Marlo Madsen MD Unavailable [phone] Mel Buckley RN Unavailable [phone] [place] Cadet MD Unavailable [phone] Rosalba Pendleton APRN AUTOMOTIVE PARTS COUNTER ASSISTANT Unavaila ble Rosalba Pendleton APRN AUTOMOTIVE PARTS COUNTER ASSISTANT Unavaila ble [place] Cadet MD Unavailable [phone] Marlo Madsen MD Unavailable [phone] Abby Vasquez MD Unavailable Abby Vasquez MD Unavailable Airam Hodges PA-C Unavailable [phone] Zain Quintana MD Unavailable [phone] Latricia Pettit PA-C Unavailable [phone] Encounter Details Date Type Department Care Team (Late st Contact Info) Description 04/02/2023 MyC Medical Advice [facility] Gastroenterology Clinic [address] [phone] Vivian Carter Social History Tobacco Use Types Packs/Day Years Used Date Smoking Tobacco: Never Smokeless Tobacco: Never Alcohol Use Standard Drinks/Week Comments No 0 (1 standard drink = 0.6 oz pur e alcohol) PHQ-2 Answer Date Recorded PHQ-2 Score 2 04/02/2023 Sex and Gender Information Value Date Recorded Sex Assigned at Female 10/31/2021 7:59 AM SUPERVISOR PAINTING Gender Identity Female 10/31/2021 7:59 AM SUPERVISOR PAINTING Sexual Orientation Straight 10/31/2021 7: 59 AM SUPERVISOR PAINTING COVID-19 Exposure Response Date Recorded In the last 10 days, have yo u been in contact with someone who was confirmed or suspected to have Coronavirus/COVID-19? No / Unsure 04/03/2023 11:46 AM CDT documented as of this encounter Plan of Treatment Upcoming Encounters Date Type Department Care Team (Latest Contact Info) Description 04/25/2024 1:50 PM CDT Therapy Visit [facility] Rehabilitation Services [address] [place] [address] [place] [address] [place] [address] 05/08/2024 PRE VISIT [facility] Neurology Clinic [address] [phone] Torri Francois MD [address] [place] [address] 736805 *-*INCOMING RECORDS*-* 05/08/2024 11:30 AM CDT Ancillary Procedure [facility] EEG [facility] Outpatient Clinic [address] [phone] 05/08/2024 2:45 PM CDT Office Visit [facility] Neurology Clinic [address] [phone] Abhishek Acevedo PA-C [address] [phone] Torri Francois MD [address] [place] [address] 322515 06/07/2024 11:20 AM CDT Office Visit [facility] Gastroenterology Clinic [address] [phone] Latricia Pettit PA-C [address] [place] [address] 177035 Abby Vasquez MD [address] [place] [address] 208635 07/06/2024 3:30 PM CDT Virtual Visit [facility] Heart Clinic [address] [phone] Marlo Madsen MD [address] [place] [address] 972615 10/03/2024 3:15 PM SUPERVISOR PAINTING Virtual Visit [facility] Gastroenterology Clinic [address] [phone] Latricia Pettit PA-C [address] [place] [address] 664705 10/10/2024 8:30 AM SUPERVISOR PAINTING Office Visit [facility] Sleep Centers [place] [phone] [address] [phone] Abhishek Acevedo PA-C [address] [phone] 01/11/2025 9:00 AM CDT Virtual Visit [facility] Neurology Clinic [place] 909 [facility] 3rd Floor [phone] Rosalba Pendleton, MAXIMILIANO AUTOMOTIVE PARTS COUNTER ASSISTANT 909 [facility] [id number] [place], [place] 3[address] documented as of this encounter Visit Diagnoses Not on filedocumented in this encounter Additional Health Concerns Infection Onset Date Last Indicated Resolved Time Rule Out COVID-19 04/03/2023 04/03/2023 04/04/2023 6:30 PM CDT Assessment Noted Time PHQ-9 Depression Total Score: 11 022 11:52 AM CDT documented as of this encounter Care Teams Diagnostic Cardiac Sonographer Relationship Specialty Start Date End Date Monty Musa MD PCP - General Family Medicine 08/13/21 Alfonso Tang Family Practice 08/13/21 Dayanara Bee MD [address] [place] [address] Pediatrics 12/26/14 Min Lange MD [address] [address] Neurology 03/30/16 Marlo Madsen MD [address] [place] [address] Cardiology 10/27/16 Mel Buckley, RN Nurse Coordinator Physical Medicine and Rehabilitation 12/02/16 [place] Cadet MD [address] [place] [address] Gastroenterology 08/13/21 Rosalba Pendleton APRN AUTOMOTIVE PARTS COUNTER ASSISTANT [address] [place], [place] [address] [address] Nurse Practitioner Neurology 09/05/21 Rosalba Pendleton APRN AUTOMOTIVE PARTS COUNTER ASSISTANT [address] [place] [address] Assigned Neuroscience Provider 11/09/21 [place] Cadet MD [address] [place] [address] Assigned Gastroenterology Provider 03/14/22 09/03/23 Marlo Madsen MD [address] [place] [address] Assigned Heart and Vascular Provider 03/14/22 Abby Vasquez MD [address] [place] [address] Gastroenterology 07/16/22 Abby Vasquez MD [address] [place] [address] Assigned PCP 09/26/22 10/06/23 Airam Hodges PA-C [address] [place] [address] Physician Microbiology Laboratory Manager Surgery 07/19/23 Zain Quintana MD [address] [place] [address] Assigned Surgical Provider 10/07/23 Latricia Pettit PA-C 9 [place] [address] Assigned Gastroenterology Provider 10/15/23 documented as of this encounter
--- OUTSIDE RECORDS SUMMARY | 2024-04-22 13:09 | XMS_ITS | Encounter Summary ---
Author Organization [employer] Address [address] [place] [address] Care Team Providers Care Consulting Solution Director Name Role Phone Monty Musa MD Primary Care Provider [phone] Alfonso Tang Unavailable Unavailable Dayanara Bee MD Unavailable [phone] Min Lange MD Unavailable Unavailable Marlo Madsen MD Unavailable [phone] Mel Buckley RN Unavailable [phone] [place] Cadet MD Unavailable [phone] Rosalba Pendleton APRN MANAGER CHEMICAL Unavaila ble Rosalba Pendleton APRN MANAGER CHEMICAL Unavaila ble [place] Cadet MD Unavailable [phone] Marlo Madsen MD Unavailable [phone] Abby Vasquez MD Unavailable Abby Vasquez MD Unavailable Airam Hodges PA-C Unavailable [phone] Zain Quintana MD Unavailable [phone] Latricia Pettit PA-C Unavailable [phone] Encounter Details Date Type Department Care Team (Late st Contact Info) Description 07/10/2023 MyC Medical Advice [facility] Gastroenterology Clinic [address] [place] [address] Abby Vasquez MD [address] [place] [address] 340555 Social History Tobacco Use Types Packs/Day Years [...] Sex Assigned at Female 10/31/2021 7:59 AM GROCERY BAGGER Gender Identity Female 10/31/2021 7:59 AM GROCERY BAGGER Sexual Orientation Straight 10/31/2021 7: 59 AM GROCERY BAGGER documented as of this encounter Plan of Treatment Upcoming Encounters Date Type Department Care Team (Latest Contact Info) Description 04/25/2024 1:50 PM CDT Therapy Visit [facility] Rehabilitation Services [address] [place] [address] Lianey Simon, PT [address] [place] [address] 05/08/2024 PRE VISIT [facility] Neurology Clinic [address] [address] Torri Francois MD [address] [place] [address] [phone] *-*INCOMING RECORDS*-* 05/08/2024 11:30 AM CDT Ancillary Procedure [facility] EEG [facility] Outpatient [facility] [address] [phone] 05/08/2024 2:45 PM CDT Office Visit [facility] Neurology Clinic [address] 3rd [place] [phone] Abhishek Acevedo PA-C 8316 [facility] [address] [place] [phone] Torri Francois MD [address] [place] [address] 710815 06/07/2024 11:20 AM CDT Office Visit [facility] Gastroenterology Clinic [address] [phone] Latricia Pettit PA-C [address] [place] [address] 458955 Abby Vasquez MD [address] [place] [address] 998805 07/06/2024 3:30 PM CDT Virtual Visit [facility] Heart [address] [phone] Marlo Madsen MD [address] [place] [address] 428925 10/03/2024 3:15 PM GROCERY BAGGER Virtual Visit [facility] Gastroenterology Clinic [address] [phone] Latricia Pettit PA-C [address] [place] [address] 464185 10/10/2024 8:30 AM GROCERY BAGGER Office Visit [facility] Sleep Centers [employer] 6363 [facility] 103 [place] [phone] Abhishek Acevedo PA-C 0868 [facility] S [facility] [address] [place], [place] [phone] 01/11/2025 9:00 AM CDT Virtual Visit [facility] Neurology Clinic [address] 3rd [place] [phone] Rosalba Pendleton APRN MANAGER CHEMICAL [address] [place] [address], [place] [address] documented as of this encounter Visit Diagnoses Not on filedocumented in this encounter Additional Health Concerns Assessment Noted Time PHQ-9 Depression Total Score: 11 022 11:52 AM CDT documented as of this encounter Care Teams Consulting Solution Director Relationship Specialty Start Date End Date Monty Musa MD PCP - General Family Medicine 08/13/21 Alfonso Tang Family Practice 08/13/21 Dayanara Bee MD [address] 022895 Pediatrics 12/26/14 Min Lange MD [address] [address] Neurology 03/30/16 Marlo Madsen MD [address] 319265 Cardiology 10/27/16 Mel Buckley, RN Nurse Coordinator Physical Medicine and Rehabilitation 12/02/16 [place] Cadet MD [address] [place] [address] Gastroenterology 08/13/21 Rosalba Pendleton APRN MANAGER CHEMICAL [address] [place], [place] [address] [address] Nurse Practitioner Neurology 09/05/21 Rosalba Pendleton APRN MANAGER CHEMICAL [address] [place] [address] Assigned Neuroscience Provider 11/09/21 [place] Cadet MD [address] [place] [address] Assigned Gastroenterology Provider 03/14/22 09/03/23 Marlo Madsen MD [address] [place] [address] Assigned Heart and Vascular Provider 03/14/22 Abby Vasquez MD [address] [place] [address] Gastroenterology 07/16/22 Abby Vasquez MD [address] [place] [address]101 Assigned PCP 09/26/22 10/06/23 Airam Hodges PA-C [address] [place] [address]998 Physician Spa Host Surgery 07/19/23 Zain Quintana MD [address] [place] [address] 20165 Assigned Surgical Provider 10/07/23 Latricia Pettit PA-C [address] [place] [address] Assigned Gastroenterology Provider 10/15/23 documented as of this encounter
--- OUTSIDE RECORDS SUMMARY | 2024-04-22 13:09 | XMS_ITS | Encounter Summary ---
Author Organization [place] Address [address] [facility] [place] [address] Care Team Providers Care Paramedical Aide Name Role Phone Monty Musa MD Primary Care Provider [phone] Alfonso Tang Unavailable Unavailable Dayanara Bee MD Unavailable [phone] Min Lange MD Unavailable Unavailable Marlo Madesn MD Unavailable [phone] Mel Buckley RN Unavailable [phone] Douglas Cadet MD Unavailable [phone] Rosalba Pendleton APRN FRYER LINE HELPER Unavaila ble Rosalba Pendleton APRN FRYER LINE HELPER Unavaila ble Douglas Cadet MD Unavailable [phone] Marlo Masden MD Unavailable [phone] Abby Vasquez MD Unavailable Abby Vasquez MD Unavailable Airam Hodges PA-C Unavailable [phone] Zain Quintana MD Unavailable [phone] Latricia Pettit PA-C Unavailable [phone] Encounter Details Date Type Department Care Team (Late st Contact Info) Description 11/23/2022 MyC Medical Advice [facility] Gastroenterology Clinic [address] [address] Vivian Carter Social History Tobacco Use Types Packs/Day Years Used Date Smoking Tobacco: Never Smokeless Tobacco: Never Alcohol Use Standard Drinks/Week Comments No 0 (1 standard drink = 0.6 oz pur e alcohol) PHQ-2 Answer Date Recorded PHQ-2 Score 3 05/28/2022 Sex and Gender Information Value Date Recorded Sex Assigned at Female 10/31/2021 7:59 AM MOBILE BATTERY TECHNICIAN Gender Identity Female 10/31/2021 7:59 AM MOBILE BATTERY TECHNICIAN Sexual Orientation Straight 10/31/2021 7: 59 AM MOBILE BATTERY TECHNICIAN documented as of this encounter Plan of Treatment Upcoming Encounters Date Type Department Care Team (Latest Contact Info) Description 04/25/2024 1:50 PM CDT Therapy Visit [facility] Rehabilitation Services [address] [place] [phone] [place] [address] [place] [address] 05/08/2024 PRE VISIT [facility] Neurology Clinic [address] [address] Torri Francois MD [address] [place] [address] 491235 *-*INCOMING RECORDS*-* 05/08/2024 11:30 AM CDT Ancillary Procedure [facility] EEG [facility] [address] [address] 05/08/2024 2:45 PM CDT Office Visit [facility] Neurology Clinic [address] [phone] Abhishek Acevedo, STEFANOC [address] [id number] Torri Francois MD [address] [place] [address] 471135 06/07/2024 11:20 AM CDT Office Visit [facility] Gastroenterology Clinic [address] [phone] Latricia Pettit PA-C [address] [place] [address] 417355 Abby Vasquez MD [address] [place] [address] 191715 07/06/2024 3:30 PM CDT Virtual Visit [facility] Heart [address] [phone] Marlo Madsen MD [address] [place] [address] 432685 10/03/2024 3:15 PM MOBILE BATTERY TECHNICIAN Virtual Visit [facility] Gastroenterology Clinic [address] [phone] Latricia Pettit PA-C [address] [place] [address] 991295 10/10/2024 8:30 AM MOBILE BATTERY TECHNICIAN Office Visit [facility] Sleep Centers [place] [address] [phone] Abhishek Acevedo PA-C 3723 [facility] 103 [place], [place] [phone] 01/11/2025 9:00 AM CDT Virtual Visit [facility] Neurology Clinic [address] [phone] Rosalba Pendleton APRN FRYER LINE HELPER [address] [address] documented as of this encounter Visit Diagnoses Not on filedocumented in this encounter Additional Health Concerns Infection Onset Date Last Indicated Resolved Time Rule Out COVID-19 04/03/2023 04/03/2023 04/04/2023 6:30 PM CDT Assessment Noted Time PHQ-9 Depression Total Score: 11 022 11:52 AM CDT documented as of this encounter Care Teams Paramedical Aide Relationship Specialty Start Date End Date Monty Musa MD PCP - General Family Medicine 08/13/21 Alfonso Tang Family Practice 08/13/21 Dayanara Bee MD [address] [address] Pediatrics 12/26/14 Min Lange MD [address] [address] Neurology 03/30/16 Marlo Madsen MD [address] [place] [address] Cardiology 10/27/16 Mel Buckley, RN Nurse Coordinator Physical Medicine and Rehabilitation 12/02/16 Douglas Cadet MD [address] [place] [address] Gastroenterology 08/13/21 Rosalba Pendleton APRN FRYER LINE HELPER [address] 944925 Nurse Practitioner Neurology 09/05/21 Rosalba Pendleton APRN CNP [address] [place] [address] [id number] [place] [address] Assigned Neuroscience Provider 11/09/21 Douglas Cadet MD [address] [place] [address] Assigned Gastroenterology Provider 03/14/22 09/03/23 Marlo Madsen MD [address] [place] [address] 75 [place] [address] Assigned Heart and Vascular Provider 03/14/22 Abby Vasquez MD [address] [place] [address] Gastroenterology 07/16/22 Abby Vasquez MD [address] [place] [address] Assigned PCP 09/26/22 10/06/23 Airam Hodges PA-C [address] [place] [address] Physician Community Cultural Development Officer Surgery 07/19/23 Zain Quintana MD [address] [place] [address] Assigned Surgical Provider 10/07/23 Latricia Pettit PA-C [address] [place] [address] Assigned Gastroenterology Provider 10/15/23 documented as of this encounter
--- OUTSIDE RECORDS SUMMARY | 2024-04-22 13:09 | XMS_ITS | Encounter Summary ---
Author Organization [place] Address [address] [facility] [place] [address] Care Team Providers Care Cold Work Operator Name Role Phone Monty Musa MD Primary Care Provider [phone] Alfonso Tang Unavailable Unavailable Dayanara Bee MD Unavailable [phone] Min Lange MD Unavailable Unavailable Marlo Madsen MD Unavailable [phone] Mel Buckley RN Unavailable [phone] Douglas Cadet MD Unavailable [phone] Rosalba Pendleton APRN JOB TRAINING SPECIALIST Unavaila ble Rosalba Pendleton APRN JOB TRAINING SPECIALIST Unavaila ble Douglas Cadet MD Unavailable [phone] Marlo Madsen MD Unavailable [phone] Abby Vasquez MD Unavailable Abby Vasquez MD Unavailable Airam Hodges PA-C Unavailable [phone] Zain Quintana MD Unavailable [phone] Latricia Pettit PA-C Unavailable [phone] Encounter Details Date Type Department Care Team (Late st Contact Info) Description 05/29/2022 MyC Medical Advice [facility] Heart Clinic [address] [address] Andie Raya Social History Tobacco Use Types Packs/Day Years Used Date Smoking Tobacco: Never Smokeless Tobacco: Never Alcohol Use Standard Drinks/Week Comments No 0 (1 standard drink = 0.6 oz pur e alcohol) PHQ-2 Answer Date Recorded PHQ-2 Score 3 05/28/2022 Sex and Gender Information Value Date Recorded Sex Assigned at Female 10/31/2021 7:59 AM INLAYER SILVER Gender Identity Female 10/31/2021 7:59 AM INLAYER SILVER Sexual Orientation Straight 10/31/2021 7: 59 AM INLAYER SILVER COVID-19 Exposure Response Date Recorded In the [...] Visit [facility] Rehabilitation Services [address] [place] [address] [place] [address] [place] [address] 05/08/2024 PRE VISIT [facility] Neurology Clinic [address] [address] Torri Francois MD [address] [place] [address] *-*INCOMING RECORDS*-* 05/08/2024 11:30 AM CDT Ancillary Procedure [facility] EEG [facility] Outpatient [facility] [address] [phone] 05/08/2024 2:45 PM CDT Office Visit [facility] Neurology Clinic [address] [place] [phone] Abhishek Acevedo PA-C [address] [address] Torri Francois MD [address] [place] [address] 542495 06/07/2024 11:20 AM CDT Office Visit [facility] Gastroenterology Clinic [address] [phone] Latricia Pettit PA-C [address] [place] [address] 721615 Abby Vasquez MD [address] [place] [address] 114405 07/06/2024 3:30 PM CDT Virtual Visit [facility] Heart Clinic [address] [phone] Marlo Madsen MD [address] [place] [address] 576385 10/03/2024 3:15 PM INLAYER SILVER Virtual Visit [facility] Gastroenterology Clinic [address] [phone] Latricia Pettit PA-C [address] [place] [address] 011035 10/10/2024 8:30 AM INLAYER SILVER Office Visit [facility] Sleep Centers [place] [address] [phone] Abhishek Acevedo PA-C [address] [phone] 01/11/2025 9:00 AM CDT Virtual Visit [facility] Neurology Clinic [place] [address] [facility] 3rd [place] [phone] Rosalba Pendleton, MAXIMILIANO JOB TRAINING SPECIALIST [facility] [id number] [place], [place] [phone] documented as of this encounter Visit Diagnoses Not on filedocumented in this encounter Additional Health Concerns Infection Onset Date Last Indicated Resolved Time Rule Out COVID-19 04/03/2023 04/03/2023 04/04/2023 6:30 PM CDT Assessment Noted Time PHQ-9 Depression Total Score: 11 022 11:52 AM CDT documented as of this encounter Care Teams Cold Work Operator Relationship Specialty Start Date End Date Monty Musa MD PCP - General Family Medicine 08/13/21 Alfonso Tang Family Practice 08/13/21 Dayanara Bee MD [address] [place] [address] Pediatrics 12/26/14 Min Lange MD [address] [address] Neurology 03/30/16 Marlo Madsen MD [address] [place] [address] Cardiology 10/27/16 Mel Buckley, RN Nurse Coordinator Physical Medicine and Rehabilitation 12/02/16 Douglas Caedt MD [address] [place] [address] Gastroenterology 08/13/21 Rosalba Pendleton APRN JOB TRAINING SPECIALIST [address] [place], [place] [address]321CJ [place] [address] Nurse Practitioner Neurology 09/05/21 Rosalba Pendleton APRN JOB TRAINING SPECIALIST [address] [place] [address] Assigned Neuroscience Provider 11/09/21 Douglas Cadet MD [address] [place] [address] Assigned Gastroenterology Provider 03/14/22 09/03/23 Marlo Madsen MD [address] [place] [address] 259035 Assigned Heart and Vascular Provider 03/14/22 Abby Vasquez MD [address] [place] [address] 211595 Gastroenterology 07/16/22 Abby Vasquez MD [address] [place] [address] Assigned PCP 09/26/22 10/06/23 Airam Hodges PA-C [address] [place] [address] 721515 Physician Document Advisor Surgery 07/19/23 Zain Quintana MD [address] [place] [address] Assigned Surgical Provider 10/07/23 Latricia Pettit PA-C 909 [place] [address] Assigned Gastroenterology Provider 10/15/23 documented as of this encounter
--- OUTSIDE RECORDS SUMMARY | 2024-04-22 13:09 | XMS_ITS | Encounter Summary ---
Author Organization [place] Address [address] [place] [address] Care Team Providers Care Forensic Photographer Name Role Phone Monty Musa MD Primary Care Provider [phone] Alfonso Tang Unavailable Unavailable Dayanara Bee MD Unavailable [phone] Min Lange MD Unavailable Unavailable Marlo Madsen MD Unavailable [phone] Mel Buckley RN Unavailable [phone] Douglas Cadet MD Unavailable [phone] Rosalba Pendleton APRN SIZE STAMPER Unavaila ble Rosalba Pendleton APRN SIZE STAMPER Unavaila ble Douglas Cadet MD Unavailable [phone] Marlo Madsen MD Unavailable [phone] Abby Vasquez MD Unavailable Abby Vasquez MD Unavailable Airam Hodges PA-C Unavailable [phone] Zain Quintana MD Unavailable [phone] Latricia Pettit PA-C Unavailable [phone] Encounter Details Date Type Department Care Team (Late st Contact Info) Description 11/17/2022 MyC Medical Advice [facility] Gastroenterology Clinic [address] [phone] Abby Vasquez MD [address] [place] [address] Social History Tobacco Use Types Packs/Day Years Used Date Smoking Tobacco: Never Smokeless Tobacco: Never Alcohol Use Standard Drinks/Week Comments No 0 (1 standard drink = 0.6 oz pur e alcohol) PHQ-2 Answer Date Recorded PHQ-2 Score 3 05/28/2022 Sex and Gender Information Value Date Recorded Sex Assigned at Female 10/31/2021 7:59 AM ROUND KILN DRAWER Gender Identity Female 10/31/2021 7:59 AM ROUND KILN DRAWER Sexual Orientation Straight 10/31/2021 7: 59 AM ROUND KILN DRAWER documented as of this encounter Plan of Treatment Upcoming Encounters Date Type Department Care Team (Latest Contact Info) Description 04/25/2024 1:50 PM CDT Therapy Visit [facility] Rehabilitation Services [address] [place] [address] [place] [address] [place], [place] 964187 05/08/2024 PRE VISIT [facility] Neurology Clinic [address] [address] Torri Francois MD [address] [place] [address] *-*INCOMING RECORDS*-* 05/08/2024 11:30 AM CDT Ancillary Procedure [facility] EEG [facility]SC Outpatient Clinic [address] [phone] 05/08/2024 2:45 PM CDT Office Visit [facility] Neurology Clinic [address] [phone] Abhishek Acevedo PA-C [address] [facility] S [address] [address] Torri Francois MD [address] [place] [address] 06/07/2024 11:20 AM CDT Office Visit [facility] Gastroenterology Clinic [address] [phone] Latricia Pettit PA-C [address] [place] [address] 578775 Abby Vasquez MD [address] [place] [address] 944485 07/06/2024 3:30 PM CDT Virtual Visit [facility] Heart Clinic [address] [phone] Marlo Madsen MD [address] [place] [address] 231435 10/03/2024 3:15 PM ROUND KILN DRAWER Virtual Visit [facility] Gastroenterology Clinic [address] [phone] Latricia Pettit PA-C [address] [place] [address] 740855 10/10/2024 8:30 AM ROUND KILN DRAWER Office Visit [facility] Sleep Centers [place] 6363 [facility] [address] [phone] Abhishek Acevedo PA-C [address] [facility] S [address] [address] [id number] 01/11/2025 9:00 AM CDT Virtual Visit [facility] Neurology Clinic [place] 909 [facility] 3rd [place] [phone] Rosalba Pendleton APRN [facility] 909 [facility] [id number] [place] [address] documented as of this encounter Visit Diagnoses Not on filedocumented in this encounter Additional Health Concerns Infection Onset Date Last Indicated Resolved Time Rule Out COVID-19 04/03/2023 04/03/2023 04/04/2023 6:30 PM CDT Assessment Noted Time PHQ-9 Depression Total Score: 11 022 11:52 AM CDT documented as of this encounter Care Teams Forensic Photographer Relationship Specialty Start Date End Date Monty Musa MD PCP - General Family Medicine 08/13/21 Alfonso Tang Family Practice 08/13/21 Dayanara Bee MD [address] [address] Pediatrics 12/26/14 Min Lange MD [address] [address] Neurology 03/30/16 Marlo Madsen MD [address] [place] [address] Cardiology 10/27/16 Mel Buckley, RN Nurse Coordinator Physical Medicine and Rehabilitation 12/02/16 Douglas Cadet MD [address] [place] [address] Gastroenterology 08/13/21 Rosalba Pendleton APRN SIZE STAMPER [address] [place], [place] [address]CJ [place] [address] Nurse Practitioner Neurology 09/05/21 Rosalba Pendleton APRN SIZE STAMPER [address] [place], [place] [address], [place] [address] Assigned Neuroscience Provider 11/09/21 Douglas Cadet MD [address] [place] [address] Assigned Gastroenterology Provider 03/14/22 09/03/23 Marlo Madsen MD [address] [place] [address] 75 [place], [place] 470105 Assigned Heart and Vascular Provider 03/14/22 Abby Vasquez MD [address] [place] [address] 752065 Gastroenterology 07/16/22 Abby Vasquez MD [address] [place] [address] Assigned PCP 09/26/22 10/06/23 Airam Hodges PA-C [address] [place] [address] Physician Geothermal Sheet Metal Worker Surgery 07/19/23 Zain Quintana MD 500 [place] [address] Assigned Surgical Provider 10/07/23 Latricia Pettit PA-C 909 [place] [address] Assigned Gastroenterology Provider 10/15/23 documented as of this encounter
--- OUTSIDE RECORDS SUMMARY | 2024-04-22 13:09 | XMS_ITS | Encounter Summary ---
Author Organization [place] Address [address] [facility] [place] [address] Care Team Providers Care Vocational Nursing Instructor Name Role Phone Monty Musa MD Primary Care Provider [phone] Alfonso Tang Unavailable Unavailable Dayanara Bee MD Unavailable [phone] Min Lange MD Unavailable Unavailable Marlo Madsen MD Unavailable [phone] Mel Buckley RN Unavailable [phone] Douglas Cadet MD Unavailable [phone] Rosalba Pendleton APRN DONOR RECRUITER Unavaila ble Rosalba Pendleton APRN DONOR RECRUITER Unavaila ble Douglas Cadet MD Unavailable [phone] Marlo Madsen MD Unavailable [phone] Abby Vasquez MD Unavailable Abby Vasquez MD Unavailable Airam Hodges PA-C Unavailable [phone] Zain Quintana MD Unavailable [phone] Latricia Pettit PA-C Unavailable [phone] Encounter Details Date Type Department Care Team (Late st Contact Info) Description 06/01/2022 MyC Medical Advice [facility] Heart [facility] [address] [address] Andie Raya Social History Tobacco Use Types Packs/Day Years Used Date Smoking Tobacco: Never Smokeless Tobacco: Never Alcohol Use Standard Drinks/Week Comments No 0 (1 standard drink = 0.6 oz pur e alcohol) PHQ-2 Answer Date Recorded PHQ-2 Score 3 05/28/2022 Sex and Gender Information Value Date Recorded Sex Assigned at Female 10/31/2021 7:59 AM DOOR REPAIRER BUS Gender Identity Female 10/31/2021 7:59 AM DOOR REPAIRER BUS Sexual Orientation Straight 10/31/2021 7: 59 AM DOOR REPAIRER BUS COVID-19 Exposure Response Date Recorded In the last 10 days, have yo u been in contact with someone who was confirmed or suspected to have Coronavirus/COVID-19? No / Unsure 05/04/2022 7:58 AM CDT documented as of this encounter Plan of Treatment Upcoming Encounters Date Type Department Care Team (Latest Contact Info) Description 04/25/2024 1:50 PM CDT Therapy Visit [facility] [address] [place] [address] [place] [address] [place] [address] 05/08/2024 PRE VISIT [facility] Neurology Clinic [address] [address] Torri Francois MD [address] [place] [address] *-*INCOMING RECORDS*-* 05/08/2024 11:30 AM CDT Ancillary Procedure [facility] EEG [facility] Outpatient Clinic [address] [phone] 05/08/2024 2:45 PM CDT Office Visit [facility] Neurology Clinic [address] [place] [phone] Abhishek Acevedo PA-C [address] [address] Torri Francois MD [address] [place] [address] 158815 06/07/2024 11:20 AM CDT Office Visit [facility] Gastroenterology Clinic [address] [phone] Latricia Pettit PA-C [address] [place] [address] 626715 Abby Vasquez MD [address] [place] [address] 024615 07/06/2024 3:30 PM CDT Virtual Visit [facility] [address] [phone] Marlo Madsen MD [address] [place] [address] 060195 10/03/2024 3:15 PM DOOR REPAIRER BUS Virtual Visit [facility] Gastroenterology Clinic [address] [phone] Latricia Pettit PA-C [address] [place] [address] 596615 10/10/2024 8:30 AM DOOR REPAIRER BUS Office Visit [facility] [place] [address] [phone] Abhishek Acevedo PA-C [address] [id number] 01/11/2025 9:00 AM CDT Virtual Visit [facility] Neurology Clinic [place] 909 [facility] 3rd [place] [phone] Rosalba Pendleton, MAXIMILIANO DONOR RECRUITER 909 [facility] [id number] [place], [place] [phone] documented as of this encounter Visit Diagnoses Not on filedocumented in this encounter Additional Health Concerns Infection Onset Date Last Indicated Resolved Time Rule Out COVID-19 04/03/2023 04/03/2023 04/04/2023 6:30 PM CDT Assessment Noted Time PHQ-9 Depression Total Score: 11 022 11:52 AM CDT documented as of this encounter Care Teams Vocational Nursing Instructor Relationship Specialty Start Date End Date Monty Musa MD PCP - General Family Medicine 08/13/21 Alfonso Tang Family Practice 08/13/21 Dayanara Bee MD [address] [place] [address] Pediatrics 12/26/14 Min Lange MD [address] [address] Neurology 03/30/16 Marlo Madsen MD [address] [place] [address] Cardiology 10/27/16 Mel Buckley, RN Nurse Coordinator Physical Medicine and Rehabilitation 12/02/16 Douglas Cadet MD [address] [place] [address] Gastroenterology 08/13/21 Rosalba Pendleton APRN DONOR RECRUITER [address] [place], [place] [address] [address] Nurse Practitioner Neurology 09/05/21 Rosalba Pendleton APRN DONOR RECRUITER [address] [place] [address] Assigned Neuroscience Provider 11/09/21 Douglas Cadet MD [address] [place] [address] Assigned Gastroenterology Provider 03/14/22 09/03/23 Marlo Madsen MD [address] [place] [address] 625855 Assigned Heart and Vascular Provider 03/14/22 Abby Vasquez MD [address] [place] [address] 046385 Gastroenterology 07/16/22 Abby Vasquez MD [address] [place] [address] Assigned PCP 09/26/22 10/06/23 Airam Hodges PA-C [address] [place] [address] 724845 Physician Director Of Business Development Surgery 07/19/23 Zain Quintana MD [address] [place] [address] Assigned Surgical Provider 10/07/23 Latricia Pettit PA-C 909 [place] [address] Assigned Gastroenterology Provider 10/15/23 documented as of this encounter
--- OUTSIDE RECORDS SUMMARY | 2024-04-22 13:09 | XMS_ITS | Encounter Summary ---
Author Organization [place] Address [address] [facility] [place] [address] Care Team Providers Care Ciaio Counter Molder Name Role Phone Monty Musa MD Primary Care Provider [phone] Alfonso Tang Unavailable Unavailable Dayanara Bee MD Unavailable [phone] Min Lange MD Unavailable Unavailable Marlo Madsen MD Unavailable [phone] Mel Buckley RN Unavailable [phone] Douglas Cadet MD Unavailable [phone] Rosalba Pendleton APRN PREDATORY ANIMAL TRAPPER Unavaila ble Rosalba Pendleton APRN PREDATORY ANIMAL TRAPPER Unavaila ble Douglas Cadet MD Unavailable [phone] Marlo Madsen MD Unavailable [phone] Abby Vasquez MD Unavailable Abby Vasquez MD Unavailable Airam Hodges PA-C Unavailable [phone] Zain Quintana MD Unavailable [phone] Latricia Pettit PA-C Unavailable [phone] Encounter Details Date Type Department Care Team (Late st Contact Info) Description 08/03/2022 MyC Medical Advice [facility] [address] [place] [address] Stephani Wheatley MA Social History Tobacco Use Types Packs/Day Years Used Date Smoking Tobacco: Never Smokeless Tobacco: Never Alcohol Use Standard Drinks/Week Comments No 0 (1 standard drink = 0.6 oz pur e alcohol) PHQ-2 Answer Date Recorded PHQ-2 Score 3 05/28/2022 Sex and Gender Information Value Date Recorded Sex Assigned at Female 10/31/2021 7:59 AM MACHINE CLOTHING REPLACER Gender Identity Female 10/31/2021 7:59 AM MACHINE CLOTHING REPLACER Sexual Orientation Straight 10/31/2021 7: 59 AM MACHINE CLOTHING REPLACER COVID-19 Exposure Response Date Recorded In the last 10 days, have yo u been in contact with someone who was confirmed or suspected to have Coronavirus/COVID-19? No / Unsure 07/14/2022 9:15 PM CDT documented as of this encounter Plan of Treatment Upcoming Encounters Date Type Department Care Team (Latest Contact Info) Description 04/25/2024 1:50 PM CDT Therapy Visit [facility] [address] [place] [address] Lainey Simon, PT [address] [place] [address] 05/08/2024 PRE VISIT [facility] [address] [address] Torri Francois MD [address] [place] [address] 700335 *-*INCOMING RECORDS*-* 05/08/2024 11:30 AM CDT Ancillary Procedure [facility] [address] [phone] 05/08/2024 2:45 PM CDT Office Visit [facility] [address] [place] [phone] Abhishek Acevedo PA-C [address] [facility] 103 [place] [phone] Torri Francois MD [address] [place] [address] 595005 06/07/2024 11:20 AM CDT Office Visit [facility] [address] [phone] Latricia Pettit PA-C [address] [place] [address] 490995 Abby Vasquez MD [address] [place] [address] 059045 07/06/2024 3:30 PM CDT Virtual Visit [facility] Heart [address] [phone] Marlo Madsen MD [address] [place] [address] 050055 10/03/2024 3:15 PM MACHINE CLOTHING REPLACER Virtual Visit [facility] [address] [phone] Latricia Pettit PA-C [address] [place] [address] 002335 10/10/2024 8:30 AM MACHINE CLOTHING REPLACER Office Visit [facility] [place] 6[address] [facility] 103 [place] [phone] Abhishek Acevedo PA-C 2271 [facility] 103 [place], [place] [phone] 01/11/2025 9:00 AM CDT Virtual Visit [facility] [place] [address] [place] [address] 3rd [place] [phone] Rosalba Pendleton APRN PREDATORY ANIMAL TRAPPER 909 [facility] [id number] [place], [place] [address] documented as of this encounter Visit Diagnoses Not on filedocumented in this encounter Additional Health Concerns Infection Onset Date Last Indicated Resolved Time Rule Out COVID-19 04/03/2023 04/03/2023 04/04/2023 6:30 PM CDT Assessment Noted Time PHQ-9 Depression Total Score: 11 022 11:52 AM CDT documented as of this encounter Care Teams Ciaio Counter Molder Relationship Specialty Start Date End Date Monty Musa MD PCP - General Family Medicine 08/13/21 Alfonso Tang [facility] 08/13/21 Dayanara Bee MD [address] [place] [address] 26080 Pediatrics 12/26/14 Min Lange MD [address] [place] [address] 23114 Neurology 03/30/16 Marlo Madsen MD [address] [place] [address] 19965 Cardiology 10/27/16 Mel Buckley, RN Nurse Coordinator Physical Medicine and Rehabilitation 12/02/16 Douglas Cadet MD [address] [place] [address] 29551 Gastroenterology 08/13/21 Rosalba Pendleton APRN PREDATORY ANIMAL TRAPPER [address] [place] [address] 85302 Nurse Practitioner Neurology 09/05/21 Rosalba Pendleton APRN PREDATORY ANIMAL TRAPPER [address] [place] [address] 95665 Assigned Neuroscience Provider 11/09/21 Douglas Cadet MD [address] [place] [address] 07238 Assigned Gastroenterology Provider 03/14/22 09/03/23 Marlo Madsen MD [address] [place] [address] 54566 Assigned Heart and Vascular Provider 03/14/22 Abby Vasquez MD [address] [place] [address] 04222 Gastroenterology 07/16/22 Abby Vasquez MD [address] [place] [address] 39708 Assigned PCP 09/26/22 10/06/23 Airam Hodges PA-C [address] [place] [address] 15751 Physician Melter Clerk Surgery 07/19/23 Zain Quintana MD [address] [place] [address] 16568 Assigned Surgical Provider 10/07/23 Latricia Pettit PA-C 909 [place] [address] Assigned Gastroenterology Provider 10/15/23 documented as of this encounter
--- OUTSIDE RECORDS SUMMARY | 2024-04-22 13:09 | XMS_ITS | Encounter Summary ---
Author Organization [place] Address [address] [facility] [address] Care Team Providers Care Glaze Handler Name Role Phone Monty Musa MD Primary Care Provider [phone] Alfonso Tang Unavailable Unavailable Dayanara Bee MD Unavailable [phone] Min Lange MD Unavailable Unavailable Marlo Madsen MD Unavailable [phone] Mel Buckley RN Unavailable [phone] Douglas Cadet MD Unavailable [phone] Rosalba Pendleton APRN LANG INTERPRETER Unavaila ble Rosalba Pendleton APRN LANG INTERPRETER Unavaila ble Douglas Cadet MD Unavailable [phone] Marlo Madsen MD Unavailable [phone] Abby Vasquez MD Unavailable Abby Vasquez MD Unavailable Airam Hodges PA-C Unavailable [phone] Zain Quintana MD Unavailable [phone] Latricia Pettit PA-C Unavailable [phone] Encounter Details Date Type Department Care Team (Late st Contact Info) Description 05/05/2023 MyC Medical Advice [facility]astroenterology [facility] [address] [place] [address] Latricia Pettit PA-C [address] [place] [address] 780005 Social History Tobacco Use Types Packs/Day Years Used Date Smoking Tobacco: Never Smokeless Tobacco: Never Alcohol Use Standard Drinks/Week Comments No 0 (1 standard drink = 0.6 oz pur e alcohol) PHQ-2 Answer Date Recorded PHQ-2 Score 2 04/02/2023 Sex and Gender Information Value Date Recorded Sex Assigned at Female 10/31/2021 7:59 AM BATCH TESTER Gender Identity Female 10/31/2021 7:59 AM BATCH TESTER Sexual Orientation Straight 10/31/2021 7: 59 AM BATCH TESTER COVID-19 Exposure Response Date Recorded In the last 10 days, have yo u been in contact with someone who was confirmed or suspected to have Coronavirus/COVID-19? Unable to assess 04/27/2023 10:12 AM CDT documented as of this encounter Plan of Treatment Upcoming Encounters Date Type Department Care Team (Latest Contact Info) Description 04/25/2024 1:50 PM CDT Therapy Visit [facility] Rehabilitation Services [address] [place] [phone] [place] [address] [place], [place] 988047 05/08/2024 PRE VISIT [facility] Neurology Clinic [address] [address] Torri Francois MD [address] [place] [address] [phone] *-*INCOMING RECORDS*-* 05/08/2024 11:30 AM CDT Ancillary Procedure [facility] [address] [place] [address] 05/08/2024 2:45 PM CDT Office Visit [facility] Neurology [facility] [address] [phone] Abhishek Acevedo PA-C [address] [address] Torri Francois MD [address] [place] [address]99 06/07/2024 11:20 AM CDT Office Visit [facility]ology [facility] [address] [phone] Latricia Pettit PA-C [address] [place] [address] 375415 Abby Vasquez MD [address] [place] [address] 07/06/2024 3:30 PM CDT Virtual Visit [facility] Heart Clinic [address] [phone] Marlo Madsen MD [address] [place] [address] 794395 10/03/2024 3:15 PM BATCH TESTER Virtual Visit [facility] [address] [phone] Latricia Pettit PA-C [address] [place] [address] 032995 10/10/2024 8:30 AM BATCH TESTER Office Visit [facility] [place] [address] [phone] Abhishek Acevedo PA-C [address] [place] [address] 01/11/2025 9:00 AM CDT Virtual Visit [facility] Neurology [facility] [place] 909 [facility] 3rd [place] [phone] Rosalba Pendleton, CADD INSTRUCTOR LANG INTERPRETER 909 [facility] [id number] [place], [place] 099715 documented as of this encounter Visit Diagnoses Not on filedocumented in this encounter Additional Health Concerns Assessment Noted Time PHQ-9 Depression Total Score: 11 022 11:52 AM CDT documented as of this encounter Care Teams Glaze Handler Relationship Specialty Start Date End Date Monty Musa MD PCP - General Family Medicine 08/13/21 Alfonso Tang [facility] 08/13/21 Dayanara Bee MD [address] [address] Pediatrics 12/26/14 Min Lange MD [address] [address] Neurology 03/30/16 Marlo Madsen MD [address] [address] Cardiology 10/27/16 Mel Buckley, RN Nurse Coordinator Physical Medicine and Rehabilitation 12/02/16 Douglas Cadet MD [address] [place] [address] 31403 Gastroenterology 08/13/21 Rosalba Pendleton APRN LANG INTERPRETER [address] [place], [place] [address], [place] [address] Nurse Practitioner Neurology 09/05/21 Rosalba Pendleton APRN LANG INTERPRETER [address] [place] [address] 64661 Assigned Neuroscience Provider 11/09/21 Douglas Cadet MD [address] [place] [address] 45217 Assigned Gastroenterology Provider 03/14/22 09/03/23 Marlo Madsen MD [address] [place] [address] 99365 Assigned Heart and Vascular Provider 03/14/22 Abby Vasquez MD [address] [place] [address] 57150 Gastroenterology 07/16/22 Abby Vasquez MD [address] [place] [address] 42462 Assigned PCP 09/26/22 10/06/23 Airam Hodges PA-C [address] [place] [address] 30238 Physician Literacy Coordinator Surgery 07/19/23 Zain Quintana MD [address] [place] [address] 95720 Assigned Surgical Provider 10/07/23 Latricia Pettit PA-C [address] [place] [address] 41734 Assigned Gastroenterology Provider 10/15/23 documented as of this encounter
--- OUTSIDE RECORDS SUMMARY | 2024-04-22 13:09 | XMS_ITS | Encounter Summary ---
Author Organization [place] Address [address] [place] [address] Care Team Providers Care Surface Supply Breathing Apparatus Name Role Phone Monty Musa MD Primary Care Provider [phone] Alfonso Tang Unavailable Unavailable Dayanara Bee MD Unavailable [phone] Min Lange MD Unavailable Unavailable Marlo Madsen MD Unavailable [phone] Mel Buckley RN Unavailable [phone] Douglas Cadet MD Unavailable [phone] Rosalba Pendleton APRN NEWS OPERATIONS MANAGER Unavaila ble Rosalba Pendleton APRN NEWS OPERATIONS MANAGER Unavaila ble Douglas Cadet MD Unavailable [phone] Marlo Madsen MD Unavailable [phone] Abby Vasquez MD Unavailable Abby Vasquez MD Unavailable Airam Hodges PA-C Unavailable [phone] Zain Quintana MD Unavailable [phone] Latricia Pettit PA-C Unavailable [phone] Encounter Details Date Type Department Care Team (Late st Contact Info) Description 09/07/2021 MyC Medical Advice Initial Department [facility] Social History Tobacco Use Types Packs/Day Years Used Date Smoking Tobacco: Never Assessed Sex and Gender Information Value Date Recorded Sex Assigned at Female 10/31/2021 7:59 AM STRUCTURAL RIGGER Gender Identity Female 10/31/2021 7:59 AM STRUCTURAL RIGGER Sexual Orientation Straight 10/31/2021 7: 59 AM STRUCTURAL RIGGER COVID-19 Exposure Response Date Recorded In the last month, have you been in contact with someone who was confirmed or suspected to have Coronavirus / COVID-19? Unable to assess 08/13/2021 10:06 AM STRUCTURAL RIGGER documented as of this encounter Plan of Treatment Upcoming Encounters Date Type Department Care Team (Latest Contact Info) Description 04/25/2024 1:50 PM CDT Therapy Visit [facility] [address] [place] [phone] [place] [address] [place], [place] 9[address]127 05/08/2024 PRE VISIT [facility] Neurology [facility] [address] [address] Torri Francois MD [address] [place] [address] 340055 *-*INCOMING RECORDS*-* 05/08/2024 11:30 AM CDT Ancillary Procedure [facility] [address] [phone] 05/08/2024 2:45 PM CDT Office Visit [facility] [address] [address] Abhishek Acevedo PA-C [address] [address] Torri Francois MD [address] [place] [address] 436215 06/07/2024 11:20 AM CDT Office Visit [facility] [address] [phone] Latricia Pettit PA-C [address] [place] [address] 626495 Abby Vasquez MD [address] [place] [address] 256165 07/06/2024 3:30 PM CDT Virtual Visit [facility] Heart [address] [phone] Marlo Madsen MD [address] [place] [address] 488085 10/03/2024 3:15 PM STRUCTURAL RIGGER Virtual Visit [facility] [address] [phone] Latricia Pettit PA-C [address] [place] [address] 410025 10/10/2024 8:30 AM STRUCTURAL RIGGER Office Visit [facility] [place] [phone] [address] [place] [address] [phone] Abhishek Acevedo PA-C [address] [phone] 01/11/2025 9:00 AM CDT Virtual Visit [facility] [address] [phone] Rosalba Pendleton APRN NEWS OPERATIONS MANAGER [address] [address] documented as of this encounter Visit Diagnoses Not on filedocumented in this encounter Additional Health Concerns Infection Onset Date Last Indicated Resolved Time Rule Out COVID-19 04/03/2023 04/03/2023 04/04/2023 6:30 PM CDT documented as of this encounter Care Teams Surface Supply Breathing Apparatus Relationship Specialty Start Date End Date Monty Musa MD PCP - General Family Medicine 08/13/21 Alfonso Tang [facility] 08/13/21 Dayanara Bee MD [address] [place] [address] Pediatrics 12/26/14 Min Lange MD [address] [place] [address] Neurology 03/30/16 Marlo Madsen MD [address] [place] [address] 259735 Cardiology 10/27/16 Mel Buckley, RN Nurse Coordinator Physical Medicine and Rehabilitation 12/02/16 Douglas Cadet MD [address] [place] [address] Gastroenterology 08/13/21 Rosalba Pendleton APRN NEWS OPERATIONS MANAGER [address] [place] [address] Nurse Practitioner Neurology 09/05/21 Rosalba Pendleton APRN NEWS OPERATIONS MANAGER [address] [place] [address] [address] Assigned Neuroscience Provider 11/09/21 Douglas Cadet MD [address] [place] [address]36 Assigned Gastroenterology Provider 03/14/22 09/03/23 Marlo Madsen MD [address] [place] [address] 75 [place] [address] Assigned Heart and Vascular Provider 03/14/22 Abby Vasquez MD [address] [place] [address]250 Gastroenterology 07/16/22 Abby Vasquez MD [address] [place] [address] 08268 Assigned PCP 09/26/22 10/06/23 Airam Hodges PA-C [address] [place] [address] 12676 Physician Show Horse Driver Surgery 07/19/23 Zain Quintana MD [address] [place] [address]87 Assigned Surgical Provider 10/07/23 Latricia Pettit PA-C [address] [place] [place] [address] 18816 Assigned Gastroenterology Provider 10/15/23 documented as of this encounter
--- OUTSIDE RECORDS SUMMARY | 2024-04-22 13:09 | XMS_ITS | Encounter Summary ---
Author Organization [place] Address [address] [facility] [place] [address] Care Team Providers Care Director Compensation Name Role Phone Monty Musa MD Primary Care Provider [phone] Alfonso Tang Unavailable Unavailable Dayanara Bee MD Unavailable [phone] Min Lange MD Unavailable Unavailable Marlo Madsen MD Unavailable [phone] Mel Buckley RN Unavailable [phone] Douglas Cadet MD Unavailable [phone] Rosalba Pendleton APRN CLINICAL CYTOGENETICIST SCIENTIST Unavaila ble Rosalba Pendleton APRN CLINICAL CYTOGENETICIST SCIENTIST Unavaila ble Douglas Cadet MD Unavailable [phone] Marlo Madsen MD Unavailable [phone] Abby Vasquez MD Unavailable Abby Vasquez MD Unavailable Airam Hodges PA-C Unavailable [phone] Zain Quintana MD Unavailable [phone] Latricia Pettit PA-C Unavailable [phone] Reason for Visit * Reason Onset Date Comments Appointment 08/13/2021 Encounter Details Date Type Department Care Team (Late st Contact Info) Description 08/13/2021 Telephone [facility] Gastroenterology Clinic [address] [address] Douglas Cadet MD [address] [place] [address] 534405 Appointment Social History Tobacco Use Types Packs/Day Years Used Date Smoking Tobacco: Never Assessed Sex and Gender Information Value Date Recorded Sex Assigned at Female 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 Gender Identity Female 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 Sexual Orientation Straight 10/31/2021 7: 59 AM HYDRAULIC JACK OPERATOR COVID-19 Exposure Response Date Recorded In the last month, have you been in contact with someone who was confirmed or suspected to have Coronavirus / COVID-19? Unable to assess 08/13/2021 10:06 AM HYDRAULIC JACK OPERATOR documented as of this encounter Miscellaneous Notes * Telephone Encounter - Ashleigh Shahid - 08/13/2021 10:[address] [facility] Call Center Phone Message May a detailed message be left on voicemail: yes Reason for Call: Other: Patient is being referred for IBS and is experiencing weight loss, 80lbs within the last year. Please review per scheduling guidelines. Thanks! Action Taken: Message routed to: [facility] GI Travel Screening: Not Applicable AULIC JACK OPERATOR documented in this encounter Plan of Treatment Upcoming Encounters Date Type Department Care Team (Latest Contact Info) Description 04/25/2024 1:50 PM CDT Therapy Visit [facility] Rehabilitation Services [address] [place] [address] [place] [address] [place] [address] 05/08/2024 PRE VISIT [facility] Neurology Clinic [address] [phone] Torri Francois MD [address] [place] [address] 834765 *-*INCOMING RECORDS*-* 05/08/2024 11:30 AM CDT Ancillary Procedure [facility] [address] [address] 05/08/2024 2:45 PM CDT Office Visit [facility] Neurology Clinic [address] [address] Abhishek Acevedo PA-C [address] [phone] Torri Francois MD [address] [place] [address] [phone] 06/07/2024 11:20 AM CDT Office Visit [facility] Gastroenterology Clinic [address] [phone] Latricia Pettit PA-C [address] [place] [address] 665005 Abby Vasquez MD [address] [place] [address] 811465 07/06/2024 3:30 PM CDT Virtual Visit [facility] Heart [address] [address] Marlo Madsen MD [address] [place] [address] 623145 10/03/2024 3:15 PM HYDRAULIC JACK OPERATOR Virtual Visit [facility] Gastroenterology Clinic [address] [place] [phone] Latricia Pettit PA-C [address] [place] [address] 871545 10/10/2024 8:30 AM HYDRAULIC JACK OPERATOR Office Visit [facility] [place] [address] [facility] [address] [place] [phone] Abhishek Acevedo PA-C [address] [place], [place] [phone] 01/11/2025 9:00 AM CDT Virtual Visit [facility] Neurology Clinic [address]rd [place] [phone] Rosalba Pendleton, MAXIMILIANO [address] [id number] [place], [place] [address] documented as of this encounter Visit Diagnoses Not on filedocumented in this encounter Additional Health Concerns Infection Onset Date Last Indicated Resolved Time Rule Out COVID-19 04/03/2023 04/03/2023 04/04/2023 6:30 PM CDT documented as of this encounter Care Teams Director Compensation Relationship Specialty Start Date End Date Monty Musa MD PCP - General Family Medicine 08/13/21 [facility] 08/13/21 Dayanara Bee MD [address] 51[address] Pediatrics 12/26/14 Min Lange MD 420 [facility] 75 [place] [address] Neurology 03/30/16 Marlo Madsen MD [address] [address] Cardiology 10/27/16 Mel Buckley, RN Nurse Coordinator Physical Medicine and Rehabilitation 12/02/16 Douglas Cadet MD 500 [place] [address] Gastroenterology 08/13/21 Rosalba Pendleton CABLE TENDER CLINICAL CYTOGENETICIST SCIENTIST [address] [place] [address] 948085 Nurse Practitioner Neurology 09/05/21 Rosalba Pendleton APRN CLINICAL CYTOGENETICIST SCIENTIST [address] [place] [address] 823735 Assigned Neuroscience Provider 11/09/21 Douglas Cadet MD [address] [place] [address] 23207 Assigned Gastroenterology Provider 03/14/22 09/03/23 Marlo Madsen MD [address] [place] [address] 30608 Assigned Heart and Vascular Provider 03/14/22 Abby Vasquez MD [address] [place] [address] 169935 Gastroenterology 07/16/22 Abby Vasquez MD [address] [place] [address] 15419 Assigned PCP 09/26/22 10/06/23 Airam Hodges PA-C 500 [place], [place] 719175 Physician Documentum Consultant Surgery 07/19/23 Zain Quintana MD 500 [place], [place] 475965 Assigned Surgical Provider 10/07/23 Latricia Pettit PA-C 909 [place], [place] 595095 Assigned Gastroenterology Provider 10/15/23 documented as of this encounter
--- OUTSIDE RECORDS SUMMARY | 2024-04-22 13:09 | XMS_ITS | Encounter Summary ---
Author Organization [place] Address [address] [facility] [place] [address] Care Team Providers Care Burring Wheel Operator Name Role Phone Monty Musa MD Primary Care Provider [phone] Alfonso Tang Unavailable Unavailable Dayanara Bee MD Unavailable [phone] Min Lange MD Unavailable Unavailable Marlo Madsen MD Unavailable [phone] Mel Buckley RN Unavailable [phone] Douglas Cadet MD Unavailable [phone] Rosalba Pendleton APRN EDGE CUTTER Unavaila ble Rosalba Pendleton APRN EDGE CUTTER Unavaila ble Douglas Cadet MD Unavailable [phone] Marlo Madsen MD Unavailable [phone] Abby Vasquez MD Unavailable Abby Vasquez MD Unavailable Airam Hodges PA-C Unavailable [phone] Zain Quintana MD Unavailable [phone] Latricia Pettit PA-C Unavailable [phone] Encounter Details Date Type Department Care Team (Late st Contact Info) Description 11/03/2022 MyC Medical Advice [facility] Neurology Clinic [address] [address] Cierra Perez, RN Social History Tobacco Use Types Packs/Day Years Used Date Smoking Tobacco: Never Smokeless Tobacco: Never Alcohol Use Standard Drinks/Week Comments No 0 (1 standard drink = 0.6 oz pur e alcohol) PHQ-2 Answer Date Recorded PHQ-2 Score 3 05/28/2022 Sex and Gender Information Value Date Recorded Sex Assigned at Female 10/31/2021 7:59 AM COORDINATOR OF REHABILITATION SERVICES Gender Identity Female 10/31/2021 7:59 AM COORDINATOR OF REHABILITATION SERVICES Sexual Orientation Straight 10/31/2021 7: 59 AM COORDINATOR OF REHABILITATION SERVICES documented as of this encounter Plan of Treatment Upcoming Encounters Date Type Department Care Team (Latest Contact Info) Description 04/25/2024 1:50 PM CDT Therapy Visit [facility] Rehabilitation Services [address] [place] [phone] [place] [address] [place] [address] 05/08/2024 PRE VISIT [facility] Neurology Clinic [address] [address] Torri Francois MD [address] [place] [address] *-*INCOMING RECORDS*-* 05/08/2024 11:30 AM CDT Ancillary Procedure [facility] EEG [facility] Outpatient [facility] [address] [address] 05/08/2024 2:45 PM CDT Office Visit [facility] Neurology Clinic [address] [phone] Abhishek Acevedo PA-C [address] [id number] Torri Francois MD [address] [place] [address] 708785 06/07/2024 11:20 AM CDT Office Visit [facility] Gastroenterology Clinic [address] [phone] Latricia Pettit PA-C [address] [place] [address] Abby Vasquez MD [address] [place] [address] 081195 07/06/2024 3:30 PM CDT Virtual Visit [facility] Heart [address] [phone] Marlo Madsen MD [address] [place] [address] 10/03/2024 3:15 PM COORDINATOR OF REHABILITATION SERVICES Virtual Visit [facility] Gastroenterology Clinic [address] [phone] Latricia Pettit PA-C [address] [place] [address] 238365 10/10/2024 8:30 AM COORDINATOR OF REHABILITATION SERVICES Office Visit [facility] [place] [address] [phone] Abhishek Acevedo PA-C [address] [address] 01/11/2025 9:00 AM CDT Virtual Visit [facility] Neurology Clinic [address] [phone] Rosalba Pendleton APRN EDGE CUTTER [address] [phone] documented as of this encounter Visit Diagnoses Not on filedocumented in this encounter Additional Health Concerns Infection Onset Date Last Indicated Resolved Time Rule Out COVID-19 04/03/2023 04/03/2023 04/04/2023 6:30 PM CDT Assessment Noted Time PHQ-9 Depression Total Score: 11 022 11:52 AM CDT documented as of this encounter Care Teams Burring Wheel Operator Relationship Specialty Start Date End Date Monty Musa MD PCP - General Family Medicine 08/13/21 Alfonso Tang Family Practice 08/13/21 Dayanara Bee MD [address] [address] Pediatrics 12/26/14 Min Lange MD [address] [address] Neurology 03/30/16 Marlo Madsen MD [address] 800115 Cardiology 10/27/16 Mel Buckley, RN Nurse Coordinator Physical Medicine and Rehabilitation 12/02/16 Douglas Cadet MD [address] [place] [address] Gastroenterology 08/13/21 Rosalba Pendleton APRN EDGE CUTTER [address] [place] [address] 212045 Nurse Practitioner Neurology 09/05/21 Rosalba Pendleton APRN CNP [address] [place] [address] NW0125[place] [address] Assigned Neuroscience Provider 11/09/21 Douglas Cadet MD [address] [place] [address] Assigned Gastroenterology Provider 03/14/22 09/03/23 Marlo Madsen MD [address] [place] [address] 75 [place] [address] Assigned Heart and Vascular Provider 03/14/22 Abby Vasquez MD [address] [place] [address] Gastroenterology 07/16/22 Abby Vasquez MD [address] [place] [address] Assigned PCP 09/26/22 10/06/23 Airam Hodges PA-C [address] [place] [address] Physician Medicare Nurse Surgery 07/19/23 Zain Quintana MD [address] [place] [address] 984245 Assigned Surgical Provider 10/07/23 Latricia Pettit PA-C [address] [place] [address] Assigned Gastroenterology Provider 10/15/23 documented as of this encounter
--- OUTSIDE RECORDS SUMMARY | 2024-04-22 13:09 | XMS_ITS | Encounter Summary ---
Author Organization [place] Address [address] [facility] [place] [address] Care Team Providers Care Power Distributor Name Role Phone Monty Musa MD Primary Care Provider [phone] Alfonso Tang Unavailable Unavailable Dayanara Bee MD Unavailable [phone] Min Lange MD Unavailable Unavailable Marlo Madsen MD Unavailable [phone] Mel Buckley RN Unavailable [phone] Douglas Cadet MD Unavailable [phone] Rosalba Pendleton APRN ASBESTOS SHINGLE INSPECTOR Unavaila ble Rosalba Pendleton APRN ASBESTOS SHINGLE INSPECTOR Unavaila ble Douglas Cadet MD Unavailable [phone] Marlo Madsen MD Unavailable [phone] Abby Vasquez MD Unavailable Abby Vasquez MD Unavailable Airam Hodges PA-C Unavailable [phone] Zain Quintana MD Unavailable [phone] Latricia Pettit PA-C Unavailable [phone] Encounter Details Date Type Department Care Team (Late st Contact Info) Description 01/21/2023 MyC Medical Advice [facility] [address] [address] Marlo Madsen MD [address] [place] [address] 539275 Social History Tobacco Use Types Packs/Day Years Used Date Smoking Tobacco: Never Smokeless Tobacco: Never Alcohol Use Standard Drinks/Week Comments No 0 (1 standard drink = 0.6 oz pur e alcohol) PHQ-2 Answer Date Recorded PHQ-2 Score 2 01/19/2023 Sex and Gender Information Value Date Recorded Sex Assigned at Female 10/31/2021 7:59 AM CAMPAIGN MARKETING MANAGER Gender Identity Female 10/31/2021 7:59 AM CAMPAIGN MARKETING MANAGER Sexual Orientation Straight 10/31/2021 7: 59 AM CAMPAIGN MARKETING MANAGER documented as of this encounter Plan of Treatment Upcoming Encounters Date Type Department Care Team (Latest Contact Info) Description 04/25/2024 1:50 PM CDT Therapy Visit [facility] Rehabilitation Services [address] [place] [phone] [place] [address] [place] [address] 05/08/2024 PRE VISIT [facility] Neurology Clinic [address] [address] Torri Francois MD [address] [place] [address] 786985 *-*INCOMING RECORDS*-* 05/08/2024 11:30 AM CDT Ancillary Procedure [facility] EEG [facility] Outpatient [facility] [address] [address] 05/08/2024 2:45 PM CDT Office Visit [facility] Neurology [facility] [address] [address] Abhishek Acevedo PA-C [address] [address] Torri Francois MD [address] [place] [address] 06/07/2024 11:20 AM CDT Office Visit [facility] Gastroenterology Clinic [address] [phone] Latricia Pettit PA-C [address] [place] [address] 893305 Abby Vasquez MD [address] [place] [address] 209575 07/06/2024 3:30 PM CDT Virtual Visit [facility] Heart [address] [phone] Marlo Madsen MD [address] [place] [address] 384225 10/03/2024 3:15 PM CAMPAIGN MARKETING MANAGER Virtual Visit [facility] Gastroenterology Clinic [address] [phone] Latricia Pettit PA-C [address] [place] [address] 661135 10/10/2024 8:30 AM CAMPAIGN MARKETING MANAGER Office Visit [facility] [place] [address] [place] [address] [place] [phone] Abhishek Acevedo PA-C [address] [phone] 01/11/2025 9:00 AM CDT Virtual Visit [facility] Neurology Clinic [place] 909 [facility] 3rd [place] [phone] Rosalba Pendleton APRN ASBESTOS SHINGLE INSPECTOR [address] [id number] [place] [address] documented as of this encounter Visit Diagnoses Not on filedocumented in this encounter Additional Health Concerns Infection Onset Date Last Indicated Resolved Time Rule Out COVID-19 04/03/2023 04/03/2023 04/04/2023 6:30 PM CDT Assessment Noted Time PHQ-9 Depression Total Score: 11 022 11:52 AM CDT documented as of this encounter Care Teams Power Distributor Relationship Specialty Start Date End Date Monty Musa MD PCP - General Family Medicine 08/13/21 Alfonso Tang Family [facility] 08/13/21 Dayanara Bee MD [address] [address] Pediatrics 12/26/14 Min Lange MD [address] [address] Neurology 03/30/16 Marlo Madsen MD [address] [place] [address] Cardiology 10/27/16 Mel Buckley, RN Nurse Coordinator Physical Medicine and Rehabilitation 12/02/16 Douglas Cadet MD [address] [place] [address] Gastroenterology 08/13/21 Rosalba Pendleton APRN ASBESTOS SHINGLE INSPECTOR [address] [place], [place] [address] [address] Nurse Practitioner Neurology 09/05/21 Rosalba Pendleton APRN ASBESTOS SHINGLE INSPECTOR [address] [place] [address] [address] Assigned Neuroscience Provider 11/09/21 Douglas Cadet MD [address] [place] [address] Assigned Gastroenterology Provider 03/14/22 09/03/23 Marlo Madsen MD [address] [place] [address] 75 [place], [place] 434685 Assigned Heart and Vascular Provider 03/14/22 Abby Vasquez MD [address] [place] [address] 626225 Gastroenterology 07/16/22 Abby Vasquez MD [address] [place] [address] 842935 Assigned PCP 09/26/22 10/06/23 Airam Hodges PA-C [address] [place] [address] Physician Clock Smith Surgery 07/19/23 Zain Quintana MD [address] [place] [address]38 Assigned Surgical Provider 10/07/23 Latricia Pettit PA-C 909 [place] [address] Assigned Gastroenterology Provider 10/15/23 documented as of this encounter
--- OUTSIDE RECORDS SUMMARY | 2024-04-22 13:09 | XMS_ITS | Encounter Summary ---
Author Organization [place] Address [address] [facility] [place] [address] Care Team Providers Care Web Portal Developer Name Role Phone Alfonso Tang Primary Care Provider Unavailabl e Monty Musa MD Primary Care Provider [phone] Alfonso Tang Unavailable Unavailable Dayanara Bee MD Unavailable [phone] Min Lange MD Unavailable Unavailable BendMarlo molina MD Unavailable [phone] Mel Buckley RN Unavailable [phone] Douglas Cadet MD Unavailable [phone] Rosalba Pendleton APRN OBSTETRICS SCRUB NURSE Unavaila ble Rosalba Pendleton APRN OBSTETRICS SCRUB NURSE Unavaila ble Douglas Cadet MD Unavailable [phone] Marlo Madsen MD Unavailable [phone] Abby Vasquez MD Unavailable Abby Vasquez MD Unavailable Airam Hodges PA-C Unavailable [phone] Zain Quintana MD Unavailable [phone] Latricia Pettit PA-C Unavailable Encounter Details Date Type Department Care Team (Late st Contact Info) Description 12/12/2016 MyC Medical Advice [facility] Hepatology Clinic [address] [address] Chaitanya Garza MD [address] [facility] [address] [place] [address] Social History Tobacco Use Types Packs/Day Years Used Date Smoking Tobacco: Never Smokeless Tobacco: Never Alcohol Use Standard Drinks/Week Comments No 0 (1 standard drink = 0.6 oz pur e alcohol) Sex and Gender Information Value Date Recorded Sex Assigned at Female 10/31/2021 7:59 AM RN HEMODIALYSIS Gender Identity Female 10/31/2021 7:59 AM RN HEMODIALYSIS Sexual Orientation Straight 10/31/2021 7: 59 AM RN HEMODIALYSIS documented as of this encounter Plan of Treatment Upcoming Encounters Date Type Department Care Team (Latest Contact Info) Description 04/25/2024 1:50 PM CDT Therapy Visit [facility] Rehabilitation Services [address] [place] [address] [place] [address] [place] [address] 05/08/2024 PRE VISIT [facility] Neurology Clinic [address] [address] Torri Francois MD [address] [place] [address] *-*INCOMING RECORDS*-* 05/08/2024 11:30 AM CDT Ancillary Procedure [facility] EEG [facility] Outpatient [facility] [address] [phone] 05/08/2024 2:45 PM CDT Office Visit [facility] Neurology Clinic [address] [address] Abhishek Acevedo PA-C [address] [address] Torri Francois MD [address] [place] [address] 06/07/2024 11:20 AM CDT Office Visit [facility] Gastroenterology Clinic [address] [phone] Latricia Pettit PA-C [address] [place] [address] 517365 Abby Vasquez MD [address] [place] [address] 556355 07/06/2024 3:30 PM CDT Virtual Visit [facility] Heart [address] [phone] Marlo Madsen MD [address] [place] [address] 526705 10/03/2024 3:15 PM RN HEMODIALYSIS Virtual Visit [facility] Gastroenterology Clinic [address] [phone] Latricia Pettit PA-C [address] [place] [address] 580505 10/10/2024 8:30 AM RN HEMODIALYSIS Office Visit [facility] [place] [address] [place] [address] [place] [phone] Abhishek Acevedo PA-C [address] [phone] 01/11/2025 9:00 AM CDT Virtual Visit [facility] Neurology Clinic [place] 909 [facility] 3rd [place] [phone] Rosalba Pendleton APRN [facility] 909 [facility] [place] [id number] [address] documented as of this encounter Visit Diagnoses Not on filedocumented in this encounter Additional Health Concerns Infection Onset Date Last Indicated Resolved Time Rule Out COVID-19 04/03/2023 04/03/2023 04/04/2023 6:30 PM CDT documented as of this encounter Care Teams Web Portal Developer Relationship Specialty Start Date End Date Alfonso Tang PCP - General Family Practice 09/04/13 08/12/21 Monty Musa MD PCP - General Family Medicine 08/13/21 Alfonso Tang Family [facility] 08/13/21 Dayanara Bee MD [address] [address] Pediatrics 12/26/14 Min Lange MD [address] [address] Neurology 03/30/16 Marlo Madsen MD [address] [address] Cardiology 10/27/16 Mel Buckley, RN Nurse Coordinator Physical Medicine and Rehabilitation 12/02/16 Douglas Cadet MD [address] [place] [address] Gastroenterology 08/13/21 Rosalba Pendleton APRN OBSTETRICS SCRUB NURSE [address] [place] [address] [address] Nurse Practitioner Neurology 09/05/21 Rosalba Pendleton APRN OBSTETRICS SCRUB NURSE [address] [place] [address] Assigned Neuroscience Provider 11/09/21 Douglas Cadet MD [address] [place] [address] 029175 Assigned Gastroenterology Provider 03/14/22 09/03/23 Marlo Madsen MD [address] [place] [address] 75 [place], [place] 979625 Assigned Heart and Vascular Provider 03/14/22 Abby Vasquez MD [address] [place] [address] 510115 Gastroenterology 07/16/22 Abby Vasquez MD [address] [place] [address] 112905 Assigned PCP 09/26/22 10/06/23 Airam Hodges PA-C [address] [place] [address] Physician Tile Sorter Surgery 07/19/23 Zain Quintana MD [address] [place] [address] Assigned Surgical Provider 10/07/23 Latricia Pettit PA-C 909 [place] [address] Assigned Gastroenterology Provider 10/15/23 documented as of this encounter
--- OUTSIDE RECORDS SUMMARY | 2024-04-22 13:09 | XMS_ITS | Encounter Summary ---
Author Organization [place] Address [address] [facility] [place] [address] Care Team Providers Care Laborer Aquatic Life Name Role Phone Monty Musa MD Primary Care Provider [phone] Alfonso Tang Unavailable Unavailable Dayanara Bee MD Unavailable [phone] Min Lange MD Unavailable Unavailable Marlo Madsen MD Unavailable [phone] Mel Buckley RN Unavailable [phone] Douglas Cadet MD Unavailable [phone] Rosalba Pendleton APRN INSERT OPERATOR Unavaila ble Rosalba Pendleton APRN INSERT OPERATOR Unavaila ble Douglas Cadet MD Unavailable [phone] Marlo Madsen MD Unavailable [phone] Abby Vasquez MD Unavailable Abby Vasquez MD Unavailable Airam Hodges PA-C Unavailable [phone] Zain Quintana MD Unavailable [phone] Latricia Pettit PA-C Unavailable [phone] Encounter Details Date Type Department Care Team (Late st Contact Info) Description 03/17/2022 MyC Medical Advice [facility] Heart Clinic [address] [address] Virginia Rendon, RN [address] [place] [address] 842295 Social History Tobacco Use Types Packs/Day Years Used Date Smoking Tobacco: Never Smokeless Tobacco: Never Alcohol Use Standard Drinks/Week Comments No 0 (1 standard drink = 0.6 oz pur e alcohol) PHQ-2 Answer Date Recorded PHQ-2 Score 4 01/14/2022 Sex and Gender Information Value Date Recorded Sex Assigned at Female 10/31/2021 7:59 AM STATE EDITOR Gender Identity Female 10/31/2021 7:59 AM STATE EDITOR Sexual Orientation Straight 10/31/2021 7: 59 AM STATE EDITOR COVID-19 Exposure Response Date Recorded In the last 10 days, have yo u been in contact with someone who was confirmed or suspected to have Coronavirus/COVID-19? No / Unsure 03/18/2022 8:57 AM CDT documented as of this encounter Plan of Treatment Upcoming Encounters Date Type Department Care Team (Latest Contact Info) Description 04/25/2024 1:50 PM CDT Therapy Visit [facility] Rehabilitation Services [address] [place] [phone] [place] [address] [place], [place] 063657 05/08/2024 PRE VISIT [facility] Neurology Clinic [address] [address] Torri Francois MD [address] [place] [address] *-*INCOMING RECORDS*-* 05/08/2024 11:30 AM CDT Ancillary Procedure [facility] EEG [facility]SC Outpatient Clinic [address] [address] 05/08/2024 2:45 PM CDT Office Visit [facility] Neurology Clinic [address] [phone] Abhishek Acevedo PA-C [address] [address] Torri Francois MD [address] [place] [address] [id number] 06/07/2024 11:20 AM CDT Office Visit [facility] Gastroenterology Clinic [address] [phone] Latricia Pettit PA-C [address] [place] [address] 179945 Abby Vasquez MD [address] [place] [address] 07/06/2024 3:30 PM CDT Virtual Visit [facility] Heart [address] [phone] Marlo Madsen MD [address] [place] [address] 579245 10/03/2024 3:15 PM STATE EDITOR Virtual Visit [facility] Gastroenterology Clinic [address] [phone] Latricia Pettit PA-C [address] [place] [address] 02308455 10/10/2024 8:30 AM STATE EDITOR Office Visit [facility] Sleep Centers [place] [phone] [address] [phone] Abhishek Acevedo PA-C [address] [place] [address] 01/11/2025 9:00 AM CDT Virtual Visit [facility] Neurology Clinic [address] 3rd [place] [phone] Rosalba Pendleton, SEAT COVER INSTALLER INSERT OPERATOR [address] [place] [address] [id number] [place], [place] 224385 documented as of this encounter Visit Diagnoses Not on filedocumented in this encounter Additional Health Concerns Infection Onset Date Last Indicated Resolved Time Rule Out COVID-19 04/03/2023 04/03/2023 04/04/2023 6:30 PM CDT Assessment Noted Time PHQ-9 Depression Total Score: 17 022 7:02 AM CDT documented as of this encounter Care Teams Laborer Aquatic Life Relationship Specialty Start Date End Date Monty Musa MD PCP - General Family Medicine 08/13/21 Alfonso Tang Family Practice 08/13/21 Dayanara Bee MD [address] [place] [address] Pediatrics 12/26/14 Min Lange MD [address] [address] Neurology 03/30/16 Marlo Madsen MD [address] [place] [address] 943435 Cardiology 10/27/16 Mel Buckley, RN Nurse Coordinator Physical Medicine and Rehabilitation 12/02/16 Douglas Cadet MD [address] [place] [address] Gastroenterology 08/13/21 Rosalba Pendleton APRN INSERT OPERATOR [address] [place] [address] Nurse Practitioner Neurology 09/05/21 Rosalba Pendleton APRN INSERT OPERATOR [address] [place] [address] Assigned Neuroscience Provider 11/09/21 Douglas Cadet MD [address] [place] [address] Assigned Gastroenterology Provider 03/14/22 09/03/23 Marlo Madsen MD [address] [place] [address] Assigned Heart and Vascular Provider 03/14/22 Abby Vasquez MD [address] [place] [address] Gastroenterology 07/16/22 Abby Vasquez MD [address] [place] [address] Assigned PCP 09/26/22 10/06/23 Airam Hodges PA-C [address] [place] [address] Physician Fat Pressroom Worker Surgery 07/19/23 Zain Quintana MD [address] [place] [address] Assigned Surgical Provider 10/07/23 Latricia Pettit PA-C 909 [place] [address] Assigned Gastroenterology Provider 10/15/23 documented as of this encounter
--- OUTSIDE RECORDS SUMMARY | 2024-04-22 13:10 | XMS_ITS | Encounter Summary ---
Author Organization [place] Address [address] [facility] [place] [address] Care Team Providers Care Communications Lead Name Role Phone Alfonso Tang Primary Care Provider Unavailabl e Monty Musa MD Primary Care Provider [phone] Alfonso Tang Unavailable Unavailable Dayanara Bee MD Unavailable [phone] Min Lange MD Unavailable Unavailable BendMarlo molina MD Unavailable [phone] Mel Buckley RN Unavailable [phone] Douglas Cadet MD Unavailable [phone] Rosalba Pendleton APRN SPEED BELT SANDER TENDER Unavaila ble Rosalba Pendleton APRN SPEED BELT SANDER TENDER Unavaila ble Douglas Cadet MD Unavailable [phone] Marlo Madsen MD Unavailable [phone] Abby Vasquez MD Unavailable Abby Vasquez MD Unavailable Airam Hodges PA-C Unavailable [phone] Zain Quintana MD Unavailable [phone] Latricia Pettit PA-C Unavailable [phone] Encounter Details Date Type Department Care Team (Late st Contact Info) Description 07/30/2015 [facility] Medical Advice Medicine GI - 1E [facility] 1st Floor, Clinic 1E [address] [place] [address] Ama Bustamante, RN Social History Tobacco Use Types Packs/Day Years Used Date Smoking Tobacco: Never Smokeless Tobacco: Never Alcohol Use Standard Drinks/Week Comments No 0 (1 standard drink = 0.6 oz pur e alcohol) Sex and Gender Information Value Date Recorded Sex Assigned at Female 10/31/2021 7:59 AM REGIONAL WILDLIFE AGENT Gender Identity Female 10/31/2021 7:59 AM REGIONAL WILDLIFE AGENT Sexual Orientation Straight 10/31/2021 7: 59 AM REGIONAL WILDLIFE AGENT documented as of this encounter Plan of Treatment Upcoming Encounters Date Type Department Care Team (Latest Contact Info) Description 04/25/2024 1:50 PM CDT Therapy Visit [facility] Rehabilitation Services [address] [place] [phone] [place] [address] [place] [address] 05/08/2024 PRE VISIT [facility] Neurology Clinic [address] [address] Torri Francois MD [address] [place] [address] [phone] *-*INCOMING RECORDS*-* 05/08/2024 11:30 AM CDT Ancillary Procedure [facility] EEG [facility] Outpatient [facility] [address] [address] 05/08/2024 2:45 PM CDT Office Visit [facility] Neurology Clinic [address] [address] Abhishek Acevedo PA-C [address] [address] Torri Francois MD [address] [place] [address] 430285 06/07/2024 11:20 AM CDT Office Visit [facility] Gastroenterology Clinic [address] [phone] Latricia Pettit PA-C [address] [place] [address] 536715 Abby Vasquez MD [address] [place] [address] 151285 07/06/2024 3:30 PM CDT Virtual Visit [facility] Heart [address] [phone] Marlo Madsen MD [address] [place] [address] 184045 10/03/2024 3:15 PM REGIONAL WILDLIFE AGENT Virtual Visit [facility] Gastroenterology Clinic [address] [phone] Latricia Pettit PA-C [address] [place] [address] 314245 10/10/2024 8:30 AM REGIONAL WILDLIFE AGENT Office Visit [facility] Centers [place] [address] [phone] Abhishek Acevedo PA-C [address] [address] 01/11/2025 9:00 AM CDT Virtual Visit [facility] Neurology Clinic [address] [phone] Rosalba Pendleton APRN SPEED BELT SANDER TENDER [address] 293[address] documented as of this encounter Visit Diagnoses Not on filedocumented in this encounter Additional Health Concerns Infection Onset Date Last Indicated Resolved Time Rule Out COVID-19 04/03/2023 04/03/2023 04/04/2023 6:30 PM CDT documented as of this encounter Care Teams Communications Lead Relationship Specialty Start Date End Date Alfonso Tang PCP - General Family Practice 09/04/13 08/12/21 Monty Musa MD PCP - General Family Medicine 08/13/21 Alfonso Tang Family Practice 08/13/21 Dayanara Bee MD [address] [address] Pediatrics 12/26/14 Min Lange MD [address] [address] Neurology 03/30/16 Marlo Madsen MD [address] 112405 Cardiology 10/27/16 Mel Buckley, RN Nurse Coordinator Physical Medicine and Rehabilitation 12/02/16 Douglas Cdaet MD [address] [place] [address] Gastroenterology 08/13/21 Rosalba Pendleton APRN SPEED BELT SANDER TENDER [address] [place] [address] Nurse Practitioner Neurology 09/05/21 Rosalba Pendleton APRN CNP [address] [place] [address] Assigned Neuroscience Provider 11/09/21 Douglas Cadet MD [address] [place] [address] Assigned Gastroenterology Provider 03/14/22 09/03/23 Marlo Madsen MD [address] [place] [address] Assigned Heart and Vascular Provider 03/14/22 Abby Vasquez MD [address] [place] [address] Gastroenterology 07/16/22 Abby Vasquez MD [address] [place] [address] Assigned PCP 09/26/22 10/06/23 Airam Hodges PA-C [address] [place] [address] Physician Jewelry Polisher Surgery 07/19/23 Zain Quintana MD [address] [place] [address] Assigned Surgical Provider 10/07/23 Latricia Pettit PA-C [address] [place] [address] 352505 Assigned Gastroenterology Provider 10/15/23 documented as of this encounter
--- OUTSIDE RECORDS SUMMARY | 2024-04-22 13:10 | XMS_ITS | Encounter Summary ---
Author Organization Home Address [address] [place] [address] Care Team Providers Care Healthcare Science Specialist Name Role Phone Alfonso Tang Primary Care Provider Unavailabl e Monty Musa MD Primary Care Provider [phone] Alfonso Tang Unavailable Unavailable Dayanara Bee MD Unavailable [phone] Min Lange MD Unavailable Unavailable BendMarlo molina MD Unavailable [phone] Mel Buckley RN Unavailable [phone] Douglas Cadet MD Unavailable [phone] Rosalba Pendleton APRN AUTOMOBILE CLUB INFORMATION CLERK Unavaila ble Rosalba Pendleton APRN AUTOMOBILE CLUB INFORMATION CLERK Unavaila ble Douglas Cadet MD Unavailable [phone] Marlo Madsen MD Unavailable [phone] Abby Vasquez MD Unavailable Abby Vasquez MD Unavailable Airam Hodges PA-C Unavailable [phone] Zain Quintana MD Unavailable [phone] Latricia Pettit PA-C Unavailable [phone] Encounter Details Date Type Department Care Team [...] Sex Assigned at Female 10/31/2021 7:59 AM LOCOMOTIVE LUBRICATING SYSTEMS CLERK Gender Identity Female 10/31/2021 7:59 AM LOCOMOTIVE LUBRICATING SYSTEMS CLERK Sexual Orientation Straight 10/31/2021 7: 59 AM LOCOMOTIVE LUBRICATING SYSTEMS CLERK documented as of this encounter Plan of Treatment Upcoming Encounters Date Type Department Care Team (Latest Contact Info) Description 04/25/2024 1:50 PM CDT Therapy Visit [facility] Rehabilitation Services [address] [place] [phone] [place] [address] [place] [address] 05/08/[address] [facility] Neurology Clinic [address] [address] Torri Francois MD [address] [place] [address] *-*INCOMING RECORDS*-* 05/08/2024 11:30 AM CDT Ancillary Procedure [facility] EEG [facility] Outpatient [facility] [address] [address] 05/08/2024 2:45 PM CDT Office Visit [facility] Neurology Clinic [address] [address] Abhishek Acevedo PA-C [address] [address] Torri Francois MD [address] [place] [address] 06/07/2024 11:20 AM CDT Office Visit [facility] Gastroenterology Clinic [address] [phone] Latricia Pettit PA-C [address] [place] [address] 725955 Abby Vasquez MD [address] [place] [address] 651565 07/06/2024 3:30 PM CDT Virtual Visit [facility] Heart [address] [phone] Marlo Madsen MD [address] [place] [address] 792765 10/03/2024 3:15 PM LOCOMOTIVE LUBRICATING SYSTEMS CLERK Virtual Visit [facility] Gastroenterology Clinic [address] [phone] Latricia Pettit PA-C [address] [place] [address] 976385 10/10/2024 8:30 AM LOCOMOTIVE LUBRICATING SYSTEMS CLERK Office Visit [facility] [place] [address] [place] [phone] Abhishek Acevedo PA-C [address] [phone] 01/11/2025 9:00 AM CDT Virtual Visit [facility] Neurology Clinic [address] [phone] Rosalba Pendleton APRN [id number] [place] [address] documented as of this encounter Visit Diagnoses Not on filedocumented in this encounter Additional Health Concerns Infection Onset Date Last Indicated Resolved Time Rule Out COVID-19 04/03/2023 04/03/2023 04/04/2023 6:30 PM CDT documented as of this encounter Care Teams Healthcare Science Specialist Relationship Specialty Start Date End Date Alfonso Tang PCP - General Family Practice 09/04/13 08/12/21 Monty Musa MD PCP - General Family Medicine 08/13/21 Alfonso Tang [facility] Practice 08/13/21 Dayanara Bee MD [address] [address] Pediatrics 12/26/14 Min Lange MD [address] [address] Neurology 03/30/16 Marlo Madsen MD [address] [place] [address] Cardiology 10/27/16 Mel Buckley, RN Nurse Coordinator Physical Medicine and Rehabilitation 12/02/16 Douglas Cadet MD [address] [place] [address] Gastroenterology 08/13/21 Rosalba Pendleton APRN AUTOMOBILE CLUB INFORMATION CLERK [address] [place], [place] [id number] [address] Nurse Practitioner Neurology 09/05/21 Rosalba Pendleton APRN AUTOMOBILE CLUB INFORMATION CLERK [address] [place] [address] [id number] [place] [address] Assigned Neuroscience Provider 11/09/21 Douglas Cadet MD [address] [place] [address] Assigned Gastroenterology Provider 03/14/22 09/03/23 Marlo Madsen MD [address] [place] [address] 75 [place], [place] 836805 Assigned Heart and Vascular Provider 03/14/22 Abby Vasquez MD [address] [place] [address] 908405 Gastroenterology 07/16/22 Abby Vasquez MD [address] [place] [address] 947835 Assigned PCP 09/26/22 10/06/23 Airam Hodges PA-C [address] [place] [address] Physician Color Blender Surgery 07/19/23 Zain Quintana MD [address] [place] [address] Assigned Surgical Provider 10/07/23 Latricia Pettit PA-C [address] [place] [address] Assigned Gastroenterology Provider 10/15/23 documented as of this encounter
--- OUTSIDE RECORDS SUMMARY | 2024-04-22 13:10 | XMS_ITS | Encounter Summary ---
Author Organization [place] Address [address] [facility] [place] [address] Care Team Providers Care Application Trainer Name Role Phone Alfonso Tang Primary Care Provider Unavailabl e Monty Musa MD Primary Care Provider [phone] Alfonso Tang Unavailable Unavailable Dayanara Bee MD Unavailable [phone] Min Lange MD Unavailable Unavailable BendMarlo molina MD Unavailable [phone] Mel Buckley RN Unavailable [phone] Douglas Cadet MD Unavailable [phone] Rosalba Pendleton APRN EHS TEACHER Unavaila ble Rosalba Pendleton APRN EHS TEACHER Unavaila ble Douglas Cadet MD Unavailable [phone] Marlo Madsen MD Unavailable [phone] Abby Vasquez MD Unavailable Abby Vasquez MD Unavailable iAram Hodges PA-C Unavailable [phone] Zain Quintana MD Unavailable [phone] Latricia Pettit PA-C Unavailable [phone] Encounter Details Date Type Department Care Team (Late st Contact Info) Description 04/02/2015 [facility] Medical Advice [facility] Physicians [facility] 4th Floor, Clinic 4B [facility] [address] [place] [address] Marlo Madsen MD [address] [place] [address] Social History Tobacco Use Types Packs/Day Years Used Date Smoking Tobacco: Never Smokeless Tobacco: Never Alcohol Use Standard Drinks/Week Comments No 0 (1 standard drink = 0.6 oz pur e alcohol) Sex and Gender Information Value Date Recorded Sex Assigned at Female 10/31/2021 7:59 AM WORKFORCE ANALYST Gender Identity Female 10/31/2021 7:59 AM WORKFORCE ANALYST Sexual Orientation Straight 10/31/2021 7: 59 AM WORKFORCE ANALYST documented as of this encounter Plan of Treatment Upcoming Encounters Date Type Department Care Team (Latest Contact Info) Description 04/25/2024 1:50 PM CDT Therapy Visit [facility] Rehabilitation Services [address] [address] [place] [address] [place] [address] 05/08/2024 PRE VISIT [facility] Neurology Clinic [address] [address] Torri Francois MD [address] [place] [address] [phone] *-*INCOMING RECORDS*-* 05/08/2024 11:30 AM CDT Ancillary Procedure [facility] EEG CSC Outpatient Clinic [address] [phone] 05/08/2024 2:45 PM CDT Office Visit [facility] Neurology Clinic [address] [address] Abhishek Acevedo PA-C 9963 [facility] S [address] [place] [address] Torri Francois MD [address] [place] [address] 06/07/2024 11:20 AM CDT Office Visit [facility] Gastroenterology Clinic [address] [phone] Latricia Pettit PA-C [address] [place] [address] 904425 Abby Vasquez MD [address] [place] [address] 020115 07/06/2024 3:30 PM CDT Virtual Visit [facility] Heart [address] [phone] Marlo Madsen MD [address] [place] [address] 433075 10/03/2024 3:15 PM WORKFORCE ANALYST Virtual Visit [facility] Gastroenterology Clinic [address] [phone] Latricia Pettit PA-C [address] [place] [address] 276165 10/10/2024 8:30 AM WORKFORCE ANALYST Office Visit [facility] Sleep Centers [place] 6363 [facility] [address] [phone] Abhishek Acevedo PA-C [address] [place] [address] [place] [address] 01/11/2025 9:00 AM CDT Virtual Visit [facility] Neurology Clinic [place] 909 [facility] 3rd [place] [phone] Rosalba Pendleton, MAXIMILIANO EHS TEACHER 909 [facility] [id number] [place] [address] documented as of this encounter Visit Diagnoses Not on filedocumented in this encounter Additional Health Concerns Infection Onset Date Last Indicated Resolved Time Rule Out COVID-19 04/03/2023 04/03/2023 04/04/2023 6:30 PM CDT documented as of this encounter Care Teams Application Trainer Relationship Specialty Start Date End Date Alfonso Tang PCP - General Family Practice 09/04/13 08/12/21 Monty Musa MD PCP - General Family Medicine 08/13/21 Alfonso Tang Family Practice 08/13/21 Dayanara Bee MD [address] [address] Pediatrics 12/26/14 Min Lange MD [address] [address] Neurology 03/30/16 Marlo Madsen MD [address] [address] Cardiology 10/27/16 Mel Buckley, RN Nurse Coordinator Physical Medicine and Rehabilitation 12/02/16 Douglas Cadet MD [address] [place] [address] Gastroenterology 08/13/21 Rosalba Pendleton MODEL AND PATTERN SUPERVISOR EHS TEACHER [address] [place], [place] [address] [address] Nurse Practitioner Neurology 09/05/21 Rosalba Pendleton APRN EHS TEACHER [address] [place] [address] Assigned Neuroscience Provider 11/09/21 Douglas Cadet MD [address] [place] [address] Assigned Gastroenterology Provider 03/14/22 09/03/23 Marlo Madsen MD [address] [place] [address] 75 [place], [place] 333435 Assigned Heart and Vascular Provider 03/14/22 Abby Vasquez MD [address] [place] [address] Gastroenterology 07/16/22 Abby Vasquez MD [address] [place] [address] Assigned PCP 09/26/22 10/06/23 Airam Hodges PA-C [address] [place] [address] Physician Cheese Tester Surgery 07/19/23 Zain Quintana MD 500 [place] [address] Assigned Surgical Provider 10/07/23 Latricia Pettit PA-C 909 [place] [address] Assigned Gastroenterology Provider 10/15/23 documented as of this encounter
--- OUTSIDE RECORDS SUMMARY | 2024-04-22 13:10 | XMS_ITS | Encounter Summary ---
Author Organization [place] Address [address] [place] [address] Care Team Providers Care Production Cost Estimator Name Role Phone Alfonso Tang Primary Care Provider Unavailabl e Monty Musa MD Primary Care Provider [phone] Alfonso Tang Unavailable Unavailable Dayanara Bee MD Unavailable [phone] Min Lange MD Unavailable Unavailable BendMarlo molina MD Unavailable [phone] Mel Buckley RN Unavailable [phone] Douglas Cadet MD Unavailable [phone] Rosalba Pendleton APRN PURCHASING AGENT Unavaila ble Rosalba Pendleton APRN PURCHASING AGENT Unavaila ble Douglas Cadet MD Unavailable [phone] Marlo Madsen MD Unavailable [phone] Abby Vasquez MD Unavailable Abby Vasquez MD Unavailable Airam Hodges PA-C Unavailable [phone] Zain Quintana MD Unavailable [phone] Latricia Pettit PA-C Unavailable Encounter Details [...] Sex Assigned at Female 10/31/2021 7:59 AM MEDICAL ASSISTANT DERMATOLOGY Gender Identity Female 10/31/2021 7:59 AM MEDICAL ASSISTANT DERMATOLOGY Sexual Orientation Straight 10/31/2021 7: 59 AM MEDICAL ASSISTANT DERMATOLOGY documented as of this encounter Plan of Treatment Upcoming Encounters Date Type Department Care Team (Latest Contact Info) Description 04/25/2024 1:50 PM CDT Therapy Visit [facility] Rehabilitation Services [address] [place] [phone] [place] [address] [place] [address] 05/08/2024 PRE VISIT [facility] Neurology Clinic [address] [address] Torri Francois MD [address] [place] [address] *-*INCOMING RECORDS*-* 05/08/2024 11:30 AM CDT Ancillary Procedure [facility] EEG CSC Outpatient Clinic [address] [phone] 05/08/2024 2:45 PM CDT Office Visit [facility] Neurology Clinic [address] [address] Abhishek Acevedo PA-C [address] [address] Torri Francois MD [address] [place] [address] 06/07/2024 11:20 AM CDT Office Visit [facility] Gastroenterology Clinic [address] [phone] Latricia Pettit PA-C [address] [place] [address] 727865 Abby Vasquez MD [address] [place] [address] 412955 07/06/2024 3:30 PM CDT Virtual Visit [facility] Heart [address] [place] [address] [phone] Marlo Madsen MD [address] [place] [address] 938465 10/03/2024 3:15 PM MEDICAL ASSISTANT DERMATOLOGY Virtual Visit [facility] Gastroenterology Clinic [address] [phone] Latricia Pettit PA-C [address] [place] [address] 638915 10/10/2024 8:30 AM MEDICAL ASSISTANT DERMATOLOGY Office Visit [facility] Sleep Centers [place] [address] [place] [phone] Abhishek Acevedo PA-C [address] [id number] 01/11/2025 9:00 AM CDT Virtual Visit [facility] Neurology Clinic [address] [phone] Rosalba Pendleton APRN [address] [id number] [place] [address] documented as of this encounter Visit Diagnoses Not on filedocumented in this encounter Additional Health Concerns Infection Onset Date Last Indicated Resolved Time Rule Out COVID-19 04/03/2023 04/03/2023 04/04/2023 6:30 PM CDT documented as of this encounter Care Teams Production Cost Estimator Relationship Specialty Start Date End Date Alfonso Tang PCP - General Family Practice 09/04/13 08/12/21 Monty Musa MD PCP - General Family Medicine 08/13/21 Alfonso Tang [facility] Practice 08/13/21 Dayanara Bee MD [address] [address] Pediatrics 12/26/14 Min Lange MD [address] [address] Neurology 03/30/16 Marlo Madsen MD [address] [place] [address] Cardiology 10/27/16 Mel Buckley, RN Nurse Coordinator Physical Medicine and Rehabilitation 12/02/16 Douglas Cadet MD [address] [place] [address] Gastroenterology 08/13/21 Rosalba Pendleton APRN PURCHASING AGENT [address] [place], [place] [id number] [address] Nurse Practitioner Neurology 09/05/21 Rosalba Pendleton APRN PURCHASING AGENT [address] [place] [address] [id number] [place] [address] Assigned Neuroscience Provider 11/09/21 Douglas Cadet MD [address] [place] [address] Assigned Gastroenterology Provider 03/14/22 09/03/23 Marlo Madsen MD [address] [place] [address] 75 [place], [place] 567175 Assigned Heart and Vascular Provider 03/14/22 Abby Vasquez MD [address] [place] [address] 344335 Gastroenterology 07/16/22 Abby Vasquez MD [address] [place] [address] [phone] Assigned PCP 09/26/22 10/06/23 Airam Hodges PA-C [address] [place] [address] Physician Optical Laboratory Manager Surgery 07/19/23 Zain Quintana MD [address] [place] [address] Assigned Surgical Provider 10/07/23 Latricia Pettit PA-C [address] [place] [address] Assigned Gastroenterology Provider 10/15/23 documented as of this encounter
== END 2024-04-20 11:24 | disposition home or self-care (01) ==
LOC: AMB 04-22 13:04
PROVIDERS: PCP Family Medicine; Visit Provider Student in an Organized Health Care Education/Training Program
DX: G40.909 Epilepsy, unspecified, not intractable, without status epilepticus (principal); R53.1 Weakness
CPT/HCPCS: A0425; A0427

== ENCOUNTER 2024-09-07 09:32 | Outpatient (CLI) | payer MEDICARE, OTHER, SELFPAY ==
[2024-09-07 13:20] LABS: Chlamydia DNA Amplified* NOT DETECTED (No Detected); GC DNA Amplified* NOT DETECTED (No Detected)
[2024-09-09 03:05] LABS: HPV Source Cervical; HPV, High Risk by TMA Detected
[2024-09-10 15:43] LABS: HPV Genotype 16 by TMA Not Detected; HPV Genotype 18/45 by TMA Not Detected; HPVG Source Cervical
== END 2024-09-07 09:33 | disposition home or self-care (01) ==
PROVIDERS: PCP Family Medicine; Visit Provider Obstetrics & Gynecology
DX: E78.2 Mixed hyperlipidemia (principal); R79.89 Other specified abnormal findings of blood chemistry; Z11.3 Encounter for screening for infections with a predominantly sexual mode of transmission; Z12.4 Encounter for screening for malignant neoplasm of cervix; Z11.59 Encounter for screening for other viral diseases; Z72.51 High risk heterosexual behavior
CPT/HCPCS: 80061; 84443; 86592; 86703; 86803; 87340; 87491; 87591; 87624; 87625; 88141; 88142

== ENCOUNTER 2024-11-17 11:03 | Outpatient (CLI) | payer MEDICARE, OTHER, SELFPAY | END 2024-11-17 11:04 | disposition home or self-care (01) | LOC: LKVREF 11:04 | PROVIDERS: PCP Family Medicine; Visit Provider Family Medicine | DX: E88.810 Metabolic syndrome (principal); Z13.1 Encounter for screening for diabetes mellitus | CPT/HCPCS: 80048 ==

== ENCOUNTER 2024-12-11 12:09 | Emergency (ER) | payer MEDICARE, OTHER, SELFPAY ==
--- OUTSIDE RECORDS SUMMARY | 2024-12-11 12:12 | XMS_ITS | CCD ---
Author Name Interface, [id number] Address [address] [facility] [address] [place] [address] Organization [facility] Address [address] [facility] [address] [place] [address] Care Team Providers Care Rn First Assistant Name Role Phone Lexi Lamas Unavailable Unavailable Reason for Visit GENETICS NEW PT EXTERNAL REFERRAL 60 MIN Encounters Date Name 02/26/2022 Family history of br east cancer Problems Diagnosis Status Date of Diagnosi s History of colonic polyp Active Family history of colorectal cancer Active Screening for genetic disease carrier status Act livia Family history of breast cancer Active Social History Date Name Value 02/17/2022 Sex Female
--- OUTSIDE RECORDS SUMMARY | 2024-12-11 12:13 | XMS_ITS | Encounter Summary ---
Author Organization [facility] Address [address] [place] [address]. [place] [address] Care Team Providers Care Recreation Therapy Teacher Name Role Phone Monty Musa MD Primary Care Provider Alfonso Tang Unavailable Unavailable Dayanara Bee MD Unavailable [phone] Min Lange MD Unavailable Unavailable Marlo Madsen MD Unavailable [phone] Mel Buckley RN Unavailable [phone] Douglas Cadet MD Unavailable [phone] Rosalba Pendleton APRN COPYING MACHINE MECHANIC Unavaila ble Marlo Madsen MD Unavailable [phone] Abby Vasquez MD Unavailable Airam HodgesC Unavailable [phone] Zain Quintana MD Unavailable [phone] Latricia Pettit PA-C Unavailable [phone] Abhishek Acevedo-C Unavailable [phone] Encounter Details Date Type Department Care Team (Late st Contact Info) Description 12/09/2024 [facility] Neurology [place] [id number] [facility] SE 3rd [place] [address] Torri Francois MD [address] [place] [address] Social History Tobacco Use Types Packs/Day Years Used Date Smoking Tobacco: Never Smokeless Tobacco: Never Alcohol Use Standard Drinks/Week Comments No 0 (1 standard drink = 0.6 oz pur e alcohol) PHQ-2 Answer Date Recorded PHQ-2 Score 0 10/03/2024 Adolescent Education Answer Date Record ed Getting School Help Needed Not on file 06/04 Food Insecurity Answer Date Recorded Within the past 12 months, d id you worry that your food would run out before you got money to buy more? No 05/31/2024 Within the past 12 months, d id the food you bought just not last and you didn t have money to get more? No 05/31/2024 Housing Stability Answer Date Recorded Do you have housing? (Ginoin g is defined as stable permanent housing and does not include staying ouside in a car, in a tent, in an abandoned building, in an overnight senior living, or couch-surfing.) Yes 05/31/2024 Are you worried about losing your housing? No 05/31/2024 Financial Resource Strain Answer Date R ecorded Within the past 12 months, h ave you or your family members you live with been unable to get utilities (heat, electricity) when it was really needed? No 05/31/2024 Transportation Needs Answer Date Record ed Within the past 12 months, h as lack of transportation kept you from medical appointments, getting your medicines, non-medical meetings or appointments, work, or from getting things that you need? No 05/31/2024 Interpersonal Safety Answer Date Record ed Do you feel physically and e motionally safe where you currently live? Yes 05/31/2024 Within the past 12 months, h ave you been hit, slapped, kicked or otherwise physically hurt by someone? No 05/31/2024 Within the past 12 months, h ave you been humiliated or emotionally abused in other ways by your partner or ex-partner? No 05/31/2024 Comments No Sex and Gender Information Value Date Recorded Sex Assigned at Female 10/31/2021 7:59 AM PERSONAL CARE HOME ADMINISTRATOR Legal Sex Female 10:14 AM PERSONAL CARE HOME ADMINISTRATOR Gender Identity Female 10/31/2021 7:59 AM PERSONAL CARE HOME ADMINISTRATOR Sexual Orientation Straight 10/31/2021 7: 59 AM PERSONAL CARE HOME ADMINISTRATOR documented as of this encounter Plan of Treatment Upcoming Encounters Date Type Department Care Team (Late st Contact Info) Description 01/11/2025 9:00 AM CDT Virtual Visit [facility] [address]rd [place] [phone] Rosalba Pendleton, MAXIMILIANO COPYING MACHINE MECHANIC [address] [place] [address] [id number] [place] [address] 05/01/2025 10:00 AM CDT Office Visit [facility] [place] 6363 [facility] 103 [place] [phone] Abhishek Acevedo PA-C 1063 [facility] 103 [place], [place] [phone] 05/23/2025 10:40 AM CDT Virtual Visit [facility] Gastroenterology Clinic [address]th [place] [phone] Abby Vasquez MD [address] [place] [address] documented as of this encounter Visit Diagnoses Not on filedocumented in this encounter Additional Health Concerns Assessment Noted Time PHQ-9 Depression Total Score: 12 024 12:52 PM PERSONAL CARE HOME ADMINISTRATOR documented as of this encounter Care Teams Recreation Therapy Teacher Relationship Specialty Start Date End Date Monty Musa MD PCP - General Family Medicine 08/13/21 Alfonso Tang Family Practice 08/13/21 Dayanara Bee MD [address] [place] [address] 75 [place], [place] 418835 Pediatrics 12/26/14 Min Lange MD [address] [address] Neurology 03/30/16 Marlo Madsen MD [address] [place] [address] Cardiology 10/27/16 Mel Buckley, DIAZ Nurse Coordinator Physical Medicine and Rehabilitation 12/02/16 Douglas Cadet MD Gastroenterology 08/13/21 Rosalba Pendleton APRN CNP [address] [place], [place] [address]CJ [place], [place] 0[address] Nurse Practitioner Neurology 09/05/21 Marlo Madsen MD [address] [place] [address] 457185 Assigned Heart and Vascular Provider 03/14/22 Abby Vasquez MD [address] [place] [address] 851145 Gastroenterology 07/16/22 Airam Hodges PA-C [address] [place] [address] 124745 Physician Creative Arts Music Therapist Surgery 07/19/23 Zain Quintana MD [address] [place] [address] 768735 Assigned Surgical Provider 10/07/23 Latricia Pettit PA-C [address] [place] [address] 153525 Assigned Gastroenterology Provider 10/15/23 Abhishek Acevedo PA-C [address] [place] [address] [place] [address] Assigned Neuroscience Provider 11/05/24 documented as of this encounter
--- OUTSIDE RECORDS SUMMARY | 2024-12-11 12:13 | XMS_ITS | Encounter Summary ---
Author Organization [facility] Address [address] [place] [address]. [place] [address] Care Team Providers Care Sanding Machine Buffer Name Role Phone Monty Musa MD Primary Care Provider [phone] Alfonso Tang Unavailable Unavailable Dayanara Bee MD Unavailable [phone] Min Lange MD Unavailable Unavailable Marlo Madsen MD Unavailable [phone] Mel Buckley RN Unavailable [phone] Douglas Cadet MD Unavailable [phone] Rosalba Pendleton OPEN HEARTH FURNACE OPERATOR HELPER DIRECTOR OF STRATEGIC MARKETING Unavaila ble Rosalba Pendleton APRN DIRECTOR OF STRATEGIC MARKETING Unavaila ble Marlo Madsen MD Unavailable [phone] Abby Vasquez MD Unavailable Airam Hodges PA-C Unavailable [phone] Zain Quintana MD Unavailable [phone] Latricia Pettit PA-C Unavailable [phone] Torri Francois MD Unavailable [phone] Abhishek Acevedo PA-C Unavailable [phone] Encounter Details Date Type Department Care Team (Late st Contact Info) Description 05/29/[address] [facility] Neurology Clinic [place] [id number] [facility] [place] [facility] SE 3rd [place] [address] Torri Francois MD [address] [place] [address] Social History Tobacco Use Types Packs/Day Years [...] Answer Date Recorded Do you have housing? (Avis g is defined as stable permanent housing and does not include staying ouside in a car, in a tent, in an abandoned building, in an overnight long-term, or couch-surfing.) Yes 05/31/2024 Are you worried [...] Sex Assigned at Female 10/31/2021 7:59 AM ENVELOPE PATTERNMAKER Legal Sex Female 10:14 AM ENVELOPE PATTERNMAKER Gender Identity Female 10/31/2021 7:59 AM ENVELOPE PATTERNMAKER Sexual Orientation Straight 10/31/2021 7: 59 AM ENVELOPE PATTERNMAKER documented as of this encounter Plan of Treatment Upcoming Encounters Date Type Department Care Team (Late st Contact Info) Description 01/11/2025 9:00 AM CDT Virtual Visit [facility] Neurology Clinic [address] 3rd [place] [phone] Rosalba Pendleton APRN [address] [id number] [place], [place] [address] 05/01/2025 10:00 AM CDT Office Visit [facility] Sleep Centers [place] [address] [phone] Abhishek Acevedo PA-C 6[address] [facility] 103 [place], [place] [phone] 05/23/2025 10:40 AM CDT Virtual [address] [facility] Gastroenterology Clinic [address]th [place] [phone] Abby Vasquez MD [address] [place] [address] 631575 documented as of this encounter Visit Diagnoses Not on filedocumented in this encounter Additional Health Concerns Assessment Noted Time PHQ-9 Depression Total Score: 12 024 12:52 PM ENVELOPE PATTERNMAKER documented as of this encounter Care Teams Sanding Machine Buffer Relationship Specialty Start Date End Date Monty Musa MD PCP - General Family Medicine 08/13/21 Alfonso Tang Family Practice 08/13/21 Dayanara Bee MD [address] [address] Pediatrics 12/26/14 Min Lange MD [address] [address] Neurology 03/30/16 Marlo Madsen MD [address] [place] [address] Cardiology 10/27/16 Mel Buckley, RN Nurse Coordinator Physical Medicine and Rehabilitation 12/02/16 Douglas Cadet MD Gastroenterology 08/13/21 Rosalba Pendleton APRN DIRECTOR OF STRATEGIC MARKETING [address] [place] [address] 641675 Nurse Practitioner Neurology 09/05/21 Rosalba Pendleton APRN DIRECTOR OF STRATEGIC MARKETING [address] [place] [address] 030395 Assigned Neuroscience Provider 11/09/21 10/04/24 Marlo Madsen MD [address] [place] [address] Assigned Heart and Vascular Provider 03/14/22 Abby Vasquez MD [address] [place] [address] 672625 Gastroenterology 07/16/22 Airam Hodges PA-C [address] [place] [address] Physician Outreach Counselor Surgery 07/19/23 Zain Quintana MD 500 [place] [address] Assigned Surgical Provider 10/07/23 Latricia Pettit PA-C [address] [place] [address] Assigned Gastroenterology Provider 10/15/23 Torri Francois MD [address] [place] [address] 828435 Assigned Neuroscience Provider 10/05/24 11/04/24 Abhishek Acevedo PA-C [address] [address] Assigned Neuroscience Provider 11/05/24 documented as of this encounter
--- OUTSIDE RECORDS SUMMARY | 2024-12-11 12:13 | XMS_ITS | Encounter Summary ---
Author Organization [facility] Address [address] [place] [address]. [place] [address] Care Team Providers Care Medical Stenographer Name Role Phone Monty Musa MD Primary Care Provider [phone] Alfonso Tang Unavailable Unavailable Dayanara Bee MD Unavailable [phone] Min Lange MD Unavailable Unavailable Marlo Madsen MD Unavailable [phone] Mel Buckley RN Unavailable [phone] Douglas Cadet MD Unavailable Rosalba Pendleton APRN ASSEMBLY WORKER Unavaila ble Marlo Madsen MD Unavailable [phone] Abby Vasquez MD Unavailable Airam Hodges PA-C Unavailable [phone] Zain Quintana MD Unavailable [phone] Latricia Pettit PA-C Unavailable [phone] Abhishek Acevedo PA-C Unavailable [phone] Reason for Visit * Diagnostic Imaging XR (Routine) - Pending Review Specialty Diagnoses / Procedures Referred By Contgeovany t Referred To Contact Radiology. Diagnoses Constipation, unspecified constipation type Procedures X-ray KUB Abby Vasquez MD 9[address] [place] [address] Phone: tel: fax: Referral ID Status Reason Start Date Expiration Date V isits Requested Visits Authorized [id number] Pending Review 11/15/2024 11/15/2025 1 1 Encounter Details Date Type Department Care Team (Latest Contact Info) Description 11/15/2024 3:00 PM SOLUTION DESIGNER Ancillary Procedure [address] [place] [address] Abby Vasquez MD [address] [place] [address] Constipation, unspecified constipation type Social History Tobacco [...] in an abandoned building, in an overnight assisted, or couch-surfing.) Yes 05/31/2024 Are you worried [...] Sex Assigned at Female 10/31/2021 7:59 AM SOLUTION DESIGNER Legal Sex Female 10:14 AM SOLUTION DESIGNER Gender Identity Female 10/31/2021 7:59 AM SOLUTION DESIGNER Sexual Orientation Straight 10/31/2021 7: 59 AM SOLUTION DESIGNER documented as of this encounter Plan of Treatment Upcoming Encounters Date Type Department Care Team (Late st Contact Info) Description 01/11/2025 9:[address] AM CDT Virtual Visit [facility] Neurology Clinic [address] 3rd [place] [address] Rosalba Pendleton, MAXIMILIANO ASSEMBLY WORKER [address] [place] [address] [id number] [place], [place] 344055 05/01/2025 10:00 AM CDT Office Visit [facility] Sleep Centers [place] [address] [phone] Abhishek Acevedo, KEILA 6363 [facility] 103 [place], [place] [phone] 05/23/2025 10:40 AM CDT Virtual Visit [facility] Gastroenterology Clinic [place] [address] [place] [address] 4th [place] [address] Abby Vasquez MD [address] [place] [address] 508495 documented as of this encounter Procedures Procedure Name Priority Date/Time Associated Diagnosis Comments XR KUB Routine 11/15/2024 2:54 PM SOLUTION DESIGNER Constipation, unspecified constipation type documented in this encounter Results * X-ray KUB (11/15/2024 2:54 PM SOLUTION DESIGNER) Anatomical Region Laterality Modality Abdomen/Pelvis Computed Radiogr aphy 11/15/2024 2:54 PM SOLUTION DESIGNER Impressions 11/15/2024 3:07 PM SOLUTION DESIGNER IMPRESSION: No radiographic evidence of bowel obstruction. Small colonic stool burden, decreased in comparison to prior radiograph. No acute bony abnormality. Narrative 11/15/2024 3:07 PM SOLUTION DESIGNER EXAM: XR KUB LOCATION: [facility] DATE: 11/15/2024 INDICATION: abdominal pain, please assess degree of stool burden COMPARISON: Abdominal radiograph 11/01/2024 Procedure Note Chan Justice MD - 11/15/2024 EXAM: XR KUB LOCATION: [facility] DATE: 11/15/2024 INDICATION: abdominal pain, please assess degree of stool burden COMPARISON: Abdominal radiograph 11/01/2024 IMPRESSION: No radiographic evidence of bowel obstruction. Small colonicstool burden, decreased in comparison to prior radiograph. No acute bonyabnormality. Abby Vasquez MD IMG DIAGNOSTIC IM AGING ORDERABLES Final Result documented in this encounter Visit Diagnoses Diagnosis Constipation, unspecified constipation type documented in this encounter Additional Health Concerns Assessment Noted Time PHQ-9 Depression Total Score: 12 024 12:52 PM SOLUTION DESIGNER documented as of this encounter Care Teams Medical Stenographer Relationship Specialty Start Date End Date Monty Musa MD PCP - General Family Medicine 08/13/21 Alfonso Tang Family Practice 08/13/21 Dayanara Bee MD [address] [place] [address] 75 [place] [address] Pediatrics 12/26/14 Min Lange MD [address] [address] Neurology 03/30/16 Marlo Madsen MD [address] [place] [address] Cardiology 10/27/16 Mel Buckley, RN Nurse Coordinator Physical Medicine and Rehabilitation 12/02/16 Douglas Cadet MD Gastroenterology 08/13/21 Rosalba Pendleton APRN ASSEMBLY WORKER [address] [place] [address] [address] Nurse Practitioner Neurology 09/05/21 Marlo Madsen MD [address] [place] [address] Assigned Heart and Vascular Provider 03/14/22 Abby Vasquez MD [address] [place] [address] Gastroenterology 07/16/22 Airam Hodges PA-C [address] [place] [address] Physician Ice Cream Server Surgery 07/19/23 Zain Quintana MD [address] [place] [address] 598365 Assigned Surgical Provider 10/07/23 Latricia Pettit PA-C [address] [place] [address] Assigned Gastroenterology Provider 10/15/23 Abhishek Acevedo PA-C [address] [facility] 103 [place] [address] Assigned Neuroscience Provider 11/05/24 documented as of this encounter
--- OUTSIDE RECORDS SUMMARY | 2024-12-11 12:13 | XMS_ITS | Encounter Summary ---
Author Organization [facility] Address [address] [place] [address]. [place] [address] Care Team Providers Care Quality Engineering Manager Name Role Phone Monty Musa MD Primary Care Provider [phone] Alfonso Tang Unavailable Unavailable Dayanara Bee MD Unavailable [phone] Min Lange MD Unavailable Unavailable Marlo Madsen MD Unavailable [phone] Mel Buckley RN Unavailable [phone] Douglas Cadet MD Unavailable [phone] Rosalba Pendleton APRN DOG CATCHER Unavaila ble Marlo Madsen MD Unavailable [phone] Abby Vasquez MD Unavailable Airam Hodges PA-C Unavailable [phone] Zain Quintana MD Unavailable [phone] Latricia Pettit PA-C Unavailable [phone] Abhishek Acevedo PA-C Unavailable [phone] Encounter Details Date Type Department Care Team (Latest Contact Info) Description 11/23/2024 5:20 PM CDT Ancillary Procedure [facility] Epilepsy Care EEG [address] [facility] [address] [place] [address] Torri Francois MD [address] [place] [address] Psychogenic nonepileptic seizure Social History Tobacco Use Types Packs/Day Years [...] in an abandoned building, in an overnight penitentiary, or couch-surfing.) Yes 05/31/2024 Are you worried [...] Sex Assigned at Female 10/31/2021 7:59 AM AUDIO VISUAL TECH Legal Sex Female 10:14 AM AUDIO VISUAL TECH Gender Identity Female 10/31/2021 7:59 AM AUDIO VISUAL TECH Sexual Orientation Straight 10/31/2021 7: 59 AM AUDIO VISUAL TECH documented as of this encounter Plan of Treatment Upcoming Encounters Date Type Department Care Team (Late st Contact Info) Description 01/11/2025 9:00 AM CDT Virtual Visit [facility] Neurology Clinic [address] 3rd [place] [phone] Rosalba Pendleton, TECHNICAL INFORMATION SPECIALIST DOG CATCHER 9 [facility] [id number] [place] [address] 05/01/2025 10:00 AM CDT Office Visit [facility] Sleep Centers [place] 6363 [facility] 103 [place] [phone] Abhishek Acevedo PA-C 6363 [facility] 103 [place] [address] 05/23/2025 10:40 AM CDT Virtual Visit [facility] Gastroenterology Clinic [address] 4th [place] [phone] Abby Vasquez MD [address] [place] [address] Pending Results Name Type Priority Associated Diagnoses Date /Time EEG Ambulatory Remote vEEG 4+ Days EEG Routine Psychogenic nonepileptic seizure 11/27/2024 1:31 PM CDT documented as of this encounter Visit Diagnoses Diagnosis Psychogenic nonepileptic seizure documented in this encounter Additional Health Concerns Assessment Noted Time PHQ-9 Depression Total Score: 12 024 12:52 PM AUDIO VISUAL TECH documented as of this encounter Care Teams Quality Engineering Manager Relationship Specialty Start Date End Date Monty Musa MD PCP - General Family Medicine 08/13/21 Alfonso Tang Family Practice 08/13/21 Dayanara Bee MD [address] [address] Pediatrics 12/26/14 Min Lange MD [address] [address] Neurology 03/30/16 Marlo Madsen MD [address] [place] [address] Cardiology 10/27/16 Mel Buckley, DIAZ Nurse Coordinator Physical Medicine and Rehabilitation 12/02/16 Douglas Cadet MD Gastroenterology 08/13/21 Rosalba Pendleton APRN DOG CATCHER [address] [place], [place] [id number] [place], [place] [address] Nurse Practitioner Neurology 09/05/21 Marlo Madsen MD [address] [place] [address] Assigned Heart and Vascular Provider 03/14/22 Abby Vasquez MD [address] [place] [address] 467905 Gastroenterology 07/16/22 Airam Hodges PA-C [address] [place] [address] 330445 Physician Electronic Equipment Installer Surgery 07/19/23 Zain Quintana MD [address] [place] [address] 119625 Assigned Surgical Provider 10/07/23 Latricia Pettit PA-C 909 [place] [address] Assigned Gastroenterology Provider 10/15/23 Abhishek Acevedo PA-C [address] [id number] Assigned Neuroscience Provider 11/05/24 documented as of this encounter
--- OUTSIDE RECORDS SUMMARY | 2024-12-11 12:13 | XMS_ITS | Encounter Summary ---
Author Organization [facility] Address [address] [place] [address]. [place] [address] Care Team Providers Care Relations Mgr Name Role Phone Monty Musa MD Primary Care Provider [phone] Alfonso Tang Unavailable Unavailable Dayanara Bee MD Unavailable [phone] Min Lange MD Unavailable Unavailable BendMarlo molina MD Unavailable [phone] Mel Buckley RN Unavailable [phone] Douglas Cadet MD Unavailable [phone] Rosalba Pendleton PROFESSOR OF ART CERTIFIED PEDIATRIC NURSE PRACTITIONER Unavaila ble Rosalba Pendleton APRN CERTIFIED PEDIATRIC NURSE PRACTITIONER Unavaila ble Douglas Cadet MD Unavailable [phone] Marlo Madsen MD Unavailable [phone] Abby Vasquez MD Unavailable Abby Vasquez MD Unavailable Airam Hodges PA-C Unavailable [phone] Zain Quintana MD Unavailable [phone] Latricia Pettit PA-C Unavailable [phone] Torri Francois MD Unavailable [phone] Abhishek Acevedo PA-C Unavailable [phone] Encounter Details Date Type Department Care Team (Late Contact Info) Description 04/02/2023 MyC Medical Advice [facility]ology [facility] [address] [place] [phone] Vivian Carter Social History Tobacco Use Types Packs/Day Years Used Date Smoking Tobacco: Never Smokeless Tobacco: Never Alcohol Use Standard Drinks/Week Comments No 0 (1 standard drink = 0.6 oz pur e alcohol) PHQ-2 Answer Date Recorded PHQ-2 Score 2 04/02/2023 Comments No Sex and Gender Information Value Date Recorded Sex Assigned at Female 10/31/2021 7:59 AM ENERGY PROFESSIONAL Legal Sex Female 10:14 AM ENERGY PROFESSIONAL Gender Identity Female 10/31/2021 7:59 AM ENERGY PROFESSIONAL Sexual Orientation Straight 10/31/2021 7: 59 AM ENERGY PROFESSIONAL COVID-19 Exposure Response Date Recorded In the last 10 days, have yo u been in contact with someone who was confirmed or suspected to have Coronavirus/COVID-19? No / Unsure 04/03/2023 11:46 AM CDT documented as of this encounter Plan of Treatment Upcoming Encounters Date Type Department Care Team (Late st Contact Info) Description 01/11/2025 9:00 AM CDT Virtual Visit [facility] Neurology [facility] [address] [place] [phone] Rosalba Pendleton, MAXIMILIANO [address] [id number] [place] [address] 05/01/2025 10:00 AM CDT Office Visit [facility] [place] [address] [address] Abhishek Acevedo PA-C 0923 [facility] 103 [place], [place] [id number] 05/23/2025 10:40 AM CDT Virtual Visit [facility] [address] 4th [place] [phone] Abby Vasquez MD [address] [place] [address] documented as of this encounter Visit Diagnoses Not on filedocumented in this encounter Additional Health Concerns Infection Onset Date Last Indicated Resolved Time Rule Out COVID-19 04/03/2023 04/03/2023 04/04/2023 6:30 PM CDT Assessment Noted Time PHQ-9 Depression Total Score: 11 022 11:52 AM CDT documented as of this encounter Care Teams Relations Mgr Relationship Specialty Start Date End Date Monty Musa MD PCP - General Family Medicine 08/13/21 Alfonso Tang Family Practice 08/13/21 Dayanara Bee MD [address] [address] Pediatrics 12/26/14 Min Lange MD [address] [address] Neurology 03/30/16 Marlo Madsen MD [address] [address] Cardiology 10/27/16 Mel Buckley, RN Nurse Coordinator Physical Medicine and Rehabilitation 12/02/16 Douglas Cadet MD Gastroenterology 08/13/21 Rosalba Pendleton APRN CERTIFIED PEDIATRIC NURSE PRACTITIONER [address] [place] [address] [id number] [place] [address] Nurse Practitioner Neurology 09/05/21 Rosalba Pendleton APRN CERTIFIED PEDIATRIC NURSE PRACTITIONER [address] [place] [address] [id number] [place], [place] 427205 Assigned Neuroscience Provider 11/09/21 10/04/24 Douglas Cadet MD Assigned Gastroenterology Provider 03/14/22 09/03/23 Marlo Madsen MD [address] [place] [address] 75 [place], [place] 736195 Assigned Heart and Vascular Provider 03/14/22 Abby Vasquez MD [address] [place] [address] 260565 Gastroenterology 07/16/22 Abby Vasquez MD [address] [place] [address] 249695 Assigned PCP 09/26/22 10/06/23 Airam Hodges PA-C 500 [place], [place] 463385 Physician News Librarian Surgery 07/19/23 Zain Quintana MD [address] [place] [address] 838005 Assigned Surgical Provider 10/07/23 Latricia Pettit PA-C [address] [place] [address] 738445 Assigned Gastroenterology Provider 10/15/23 Torri Francois MD 515 [place] [address] Assigned Neuroscience Provider 10/05/24 2 Abhishek Acevedo PA-C [address] [facility] 103 [place] [address] Assigned Neuroscience Provider 11/05/24 documented as of this encounter
--- OUTSIDE RECORDS SUMMARY | 2024-12-11 12:13 | XMS_ITS | Encounter Summary ---
Author Organization [facility] Address [address] [place] [address]. [place] [address] Care Team Providers Care Family Program Specialist Name Role Phone Alfonso Tang Primary Care Provider Unavailabl Monty Olvera MD Primary Care Provider [phone] Alfonso Tang Unavailable Unavailable Dayanara Bee MD Unavailable [phone] Min Lange MD Unavailable Unavailable Marlo Madsen MD Unavailable [phone] Mel Buckley RN Unavailable [phone] Douglas Cadet MD Unavailable [phone] Rosalba Pendleton APRN WAFER PRODUCTION LEAD WORKER Unavaila ble Rosalba Pendleton APRN WAFER PRODUCTION LEAD WORKER Unavaila ble Douglas Cadet MD Unavailable [phone] Marlo Madsen MD Unavailable [phone] Abby Vasquez MD Unavailable Abby Vasquez MD Unavailable Airam Hodges PA-C Unavailable [phone] Zain Quintana MD Unavailable [phone] Latricia Pettit PA-C Unavailable [phone] Torri Francois MD Unavailable Abhishek Acevedo PA-C Unavailable Encounter Details Date Type Department Care Team (Late st Contact Info) Description 10/27/2016 Records - [facility] CONVERSION Scan, Non-Provider Social History Tobacco Use Types Packs/Day Years Used Date Smoking Tobacco: Never Smokeless Tobacco: Never Alcohol Use Standard Drinks/Week Comments No 0 (1 standard drink = 0.6 oz pur e alcohol) Comments No Sex and Gender Information Value Date Recorded Sex Assigned at Female 10/31/2021 7:59 AM ASSISTANT WOMEN'S BASKETBALL COACH Legal Sex Female 10:14 AM ASSISTANT WOMEN'S BASKETBALL COACH Gender Identity Female 10/31/2021 7:59 AM ASSISTANT WOMEN'S BASKETBALL COACH Sexual Orientation Straight 10/31/2021 7: 59 AM ASSISTANT WOMEN'S BASKETBALL COACH documented as of this encounter Plan of Treatment Upcoming Encounters Date Type Department Care Team (Late st Contact Info) Description 01/11/2025 9:00 AM CDT Virtual Visit [facility] Neurology Clinic [address] [place] [address] Rosalba Pendleton, GLOVE STITCHER WAFER PRODUCTION LEAD WORKER [address] [place] [id number] [place], [place] 339535 05/01/2025 10:00 AM CDT Office Visit [facility] Sleep Centers [address] [phone] Abhishek Acevedo PA-C [address] [address] 05/23/2025 10:40 AM CDT Virtual Visit [facility] Gastroenterology Clinic [address] [place] [address] Abby Vasquez MD [address] [place] [address] 899775 documented as of this encounter Visit Diagnoses Not on filedocumented in this encounter Additional Health Concerns Infection Onset Date Last Indicated Resolved Time Rule Out COVID-19 04/03/2023 04/03/2023 04/04/2023 6:30 PM CDT documented as of this encounter Care Teams Family Program Specialist Relationship Specialty Start Date End Date LorrainejoeAlfonso walker Odalis PCP - General Family Practice 09/04/13 08/12/21 Monty Musa MD PCP - General Family Medicine 08/13/21 Alfonso Tang Family Practice 08/13/21 Dayanara Bee MD [address] 976925 Pediatrics 12/26/14 Min Lange MD [address] [address] Neurology 03/30/16 Marlo Madsen MD [address] 959885 Cardiology 10/27/16 Mel Buckley, RN Nurse Coordinator Physical Medicine and Rehabilitation 12/02/16 Douglas Cadet MD Gastroenterology 08/13/21 Rosalba Pendleton APRN WAFER PRODUCTION LEAD WORKER [address] [place], [place] [address] Nurse Practitioner Neurology 09/05/21 Rosalba Pendleton APRN WAFER PRODUCTION LEAD WORKER [address] 596115 Assigned Neuroscience Provider 11/09/21 10/04/24 Douglas Cadet MD Assigned Gastroenterology Provider 03/14/22 09/03/23 Marlo Madsen MD [address] [place] [address] 121695 Assigned Heart and Vascular Provider 03/14/22 Abby Vasquez MD [address] [place] [address] 451315 Gastroenterology 07/16/22 Abby Vasquez MD [address] [place] [address] 581405 Assigned PCP 09/26/22 10/06/23 Airam oHdges PA-C [address] [place] [address] 272995 Physician Community Health Nursing Director Surgery 07/19/23 Zain Quintana MD [address] [place] [address] 570445 Assigned Surgical Provider 10/07/23 Latricia Pettit PA-C [address] [place] [address] 788115 Assigned Gastroenterology Provider 10/15/23 Torri Francois MD [address] [place] [address] 855205 Assigned Neuroscience Provider 10/05/24 11/04/24 Abhishek Acevedo PA-C [address] [place] [address] Assigned Neuroscience Provider 11/05/24 documented as of this encounter
--- OUTSIDE RECORDS SUMMARY | 2024-12-11 12:13 | XMS_ITS | Encounter Summary ---
Author Organization [facility] Address [address] [place] [address]. [place] [address] Care Team Providers Care Social Services Manager Name Role Phone Monty Musa MD Primary Care Provider Alfonso Tang Unavailable Unavailable Dayanara Bee MD Unavailable [phone] Min Lange MD Unavailable Unavailable Marlo Madsen MD Unavailable [phone] Mel Buckley RN Unavailable [phone] Douglas Cadet MD Unavailable [phone] Rosalba Pendleton APRN CHEMIST INTERNSHIP Unavaila ble Marlo Madsen MD Unavailable [phone] Abby Vasquez MD Unavailable Airam Hodges-C Unavailable [phone] Zain Quintana MD Unavailable [phone] Latricia PettitC Unavailable [phone] Abhishek Acevedo-C Unavailable [phone] Reason for Visit * Reason Onset Date Comments Prior Auth - Medication 11/22/2024 erenumab -aooe (AIMOVIG) 140 MG/ML injection PA APPROVED Encounter Details Date Type Department Care Team (Late st Contact Info) Description 11/22/2024 Telephone [facility] Neurology Clinic [place] [id number] [facility] 3rd [place] [address] Rosalba Pendleton APRN [facility] 909 [facility] [id number] [place] [address] Prior Auth - Medication (erenumab-aooe (AIMOVIG) 140 MG/ML injection PA APPROVED) Social History Tobacco Use Types Packs/Day Years [...] Answer Date Recorded Do you have housing? (Housin g is defined as stable permanent housing and does not include staying ouside in a car, in a tent, in an abandoned building, in an overnight nursing home, or couch-surfing.) Yes 05/31/2024 Are you worried [...] Sex Assigned at Female 10/31/2021 7:59 AM HEEL FORMER Legal Sex Female 10:14 AM HEEL FORMER Gender Identity Female 10/31/2021 7:59 AM HEEL FORMER Sexual Orientation Straight 10/31/2021 7: 59 AM HEEL FORMER documented as of this encounter Miscellaneous Notes * Telephone Encounter - Ida Terry - 11/24/2024 4:29 PM CDT Images from the original note were not included. Prior Authorization Approval Medication: AIMOVIG 140 MG/ML SC SOAJ Authorization Effective Date: 11/24/2024 Authorization Expiration Date: 09/12/2025 Approved Dose/Quantity: Reference #: Insurance Company: [employer] Part D - Expected CoPay: $ CoPay Card Available: Financial Assistance Needed: No Which Pharmacy is filling the prescription: [facility] [address] [place] [address] Pharmacy Notified: Yes Patient Notified: Instructed pharmacy to notify patient once order is ready. * Telephone Encounter - Ida Terry - 11/24/2024 3:32 PM CDT Images from the original note were not included. PA Initiation Medication: AIMOVIG 140 MG/ML SC SOAJ Insurance Company: [employer] Part D - Pharmacy Filling the Rx: [facility] [address] [place] [address] 3 Filling Pharmacy Filling Pharmacy Fax: Start Date: 11/24/2024 Retail Pharmacy Prior Authorization Team * Telephone Encounter - Brittny Rutherford - 11/22/2024 12:35 PM CDT Prior Authorization Retail Medication Request Medication/Dose: erenumab-aooe (AIMOVIG) 140 MG/ML injection Diagnosis and ICD code (if different than what is on RX): G43.719 New/renewal/insurance change PA/secondary ins. PA: Previously Tried and Failed: Rationale: Insurance Primary: MEDICARE - MEDICARE FOR HB SUPPLEMENT Secondary (if applicable):MEDICA - MEDICA PRIME SOLUTION Third: MEDICA - MEDICA ACCESS ABILITY [place] Pharmacy Information (if different than what is on RX) Name: [id number] Clinic Information Preferred routing pool for dept communication: documented in this encounter Plan of Treatment Upcoming Encounters Date Type Department Care Team (Late st Contact Info) Description 01/11/2025 9:00 AM CDT Virtual Visit [facility] Neurology Clinic [address] [address] Rosalba Pendleton APRN [address] [place], [place] [address] 05/01/2025 10:00 AM CDT Office Visit [facility] Sleep Centers [place] [phone] [address] [phone] Abhishek Acevedo PA-C 8814 [facility] 103 [place], [place] [address] 05/23/2025 10:40 AM CDT Virtual Visit [facility] Gastroenterology Clinic [address] [place] [phone] Abby Vasquez MD [address] [place] [address] 616975 documented as of this encounter Visit Diagnoses Not on filedocumented in this encounter Additional Health Concerns Assessment Noted Time PHQ-9 Depression Total Score: 12 024 12:52 PM HEEL FORMER documented as of this encounter Care Teams Social Services Manager Relationship Specialty Start Date End Date Monty Musa MD PCP - General Family Medicine 08/13/21 Alfonso Tang Family Practice 08/13/21 Dayanara Bee MD [address] 296155 Pediatrics 12/26/14 Min Lange MD [address] [address] Neurology 03/30/16 Marlo Madsen MD [address] [place] [address] 103335 Cardiology 10/27/16 Mel Buckley, RN Nurse Coordinator Physical Medicine and Rehabilitation 12/02/16 Douglas Cadet MD Gastroenterology 08/13/21 Rosalba Pendleton APRN CHEMIST INTERNSHIP [address] [place] [address] [address] Nurse Practitioner Neurology 09/05/21 Marlo Madsen MD [address] [address] Assigned Heart and Vascular Provider 03/14/22 Abby Vasquez MD [address] [place] [address] Gastroenterology 07/16/22 Airam Hodges PA-C 500 [place] [address] Physician Specifications Writer Surgery 07/19/23 Zain Quintana MD 500 [place], [place] 310475 Assigned Surgical Provider 10/07/23 Latricia Pettit PA-C 909 [place] [address] Assigned Gastroenterology Provider 10/15/23 Abhishek Acevedo PA-C [address] [address] Assigned Neuroscience Provider 11/05/24 documented as of this encounter
--- OUTSIDE RECORDS SUMMARY | 2024-12-11 12:13 | XMS_ITS | Encounter Summary ---
Author Organization [facility] Address [address] [place] [address]. [place] [address] Care Team Providers Care Field Services Analyst Name Role Phone Monty Musa MD Primary Care Provider Alfonso Tang Unavailable Unavailable Dayanara Bee MD Unavailable [phone] Min Lange MD Unavailable Unavailable Marlo Madsen MD Unavailable [phone] Mel Buckley RN Unavailable [phone] Douglas Cadet MD Unavailable Rosalba Pendleton APRN HAZMAT CDL DRIVER Unavaila ble Marlo Madsen MD Unavailable [phone] Abby Vasquez MD Unavailable Airam Hodges PA-C Unavailable [phone] Zain Quintana MD Unavailable [phone] Latricia Pettit PA-C Unavailable [phone] Torri Francois MD Unavailable [phone] Encounter Details Date Type Department Care Team (Latest Contact Info) Description 11/01/2024 Travel Social History Tobacco Use Types Packs/Day [...] in an abandoned building, in an overnight intermediate, or couch-surfing.) Yes 05/31/2024 Are you worried [...] Sex Assigned at Female 10/31/2021 7:59 AM COMPLEX CASE MANAGER Legal Sex Female 10:14 AM COMPLEX CASE MANAGER Gender Identity Female 10/31/2021 7:59 AM COMPLEX CASE MANAGER Sexual Orientation Straight 10/31/2021 7: 59 AM COMPLEX CASE MANAGER documented as of this encounter Plan of Treatment Upcoming Encounters Date Type Department Care Team (Late st Contact Info) Description 01/11/2025 9:00 AM CDT Virtual Visit [address]rd [place] [phone] Rosalba Pendleton, MAXIMILIANO HAZMAT CDL DRIVER [address] [place] [address] [id number] [place], [place] 113375 05/01/2025 10:00 AM CDT Office Visit [facility] [place] [address] [facility] [address] [place] [phone] Abhishek Acevedo PA-C [address] [place] [address] [place], [place] [id number] 05/23/2025 10:40 AM CDT Virtual Visit [facility] Gastroenterology Clinic [address] [place] [phone] Abby Vasquez MD [address] [place] [address] 871895 documented as of this encounter Visit Diagnoses Not on filedocumented in this encounter Additional Health Concerns Assessment Noted Time PHQ-9 Depression Total Score: 12 024 12:52 PM COMPLEX CASE MANAGER documented as of this encounter Care Teams Field Services Analyst Relationship Specialty Start Date End Date Monty Musa MD PCP - General Family Medicine 08/13/21 Alfonso Tang Family Practice 08/13/21 Dayanara Bee MD [address] [place] [address] 895315 Pediatrics 12/26/14 Min Lange MD [address] [place] [address] [address] Neurology 03/30/16 Marlo Madsen MD [address] [place] [address] [address] Cardiology 10/27/16 Mel Buckley, RN Nurse Coordinator Physical Medicine and Rehabilitation 12/02/16 Douglas Cadet MD Gastroenterology 08/13/21 Rosalba Pendleton APRN HAZMAT CDL DRIVER [address] [place] [address] [id number] [place] [address] Nurse Practitioner Neurology 09/05/21 Marlo Madsen MD [address] [place] [address] 75 [place] [address] Assigned Heart and Vascular Provider 03/14/22 Abby Vasquez MD [address] [place] [address] 669775 Gastroenterology 07/16/22 Airam Hodges PA-C [address] [place] [address] 088165 Physician Physician Specialist Surgery 07/19/23 Zain Quintana MD [address] [place] [address] 996175 Assigned Surgical Provider 10/07/23 Latricia Pettit PA-C [address] [place] [address] 787475 Assigned Gastroenterology Provider 10/15/23 Torri Francois MD [address] [place] [address] 164535 Assigned Neuroscience Provider 10/05/24 11/04/24 documented as of this encounter
--- OUTSIDE RECORDS SUMMARY | 2024-12-11 12:13 | XMS_ITS | Encounter Summary ---
Author Organization [facility] Address [address] [place] [address]. [place] [address] Care Team Providers Care Tower Hand Name Role Phone Monty Musa MD Primary Care Provider Alfonso Tang Unavailable Unavailable Dayanara Bee MD Unavailable [phone] Min Lange MD Unavailable Unavailable Marlo Madsen MD Unavailable [phone] Mel Buckley RN Unavailable [phone] Douglsa Cadet MD Unavailable Rosalba Pendleton APRN, CNP Unavaila ble Marlo Madsen MD Unavailable [phone] Abby Vasquez MD Unavailable Airam Hodges PA-C Unavailable [phone] Zain Quintana MD Unavailable [phone] Latricia Pettit PA-C Unavailable [phone] Torri Francois MD Unavailable [phone] Encounter Details Date Type Department Care Team (Late st Contact Info) Description 11/01/2024 [facility] Gastroenterology Clinic [place] [id number] [facility] [address] 4th [place] [address] Latricia Pettit PA-C 909 [place] [address] Social History Tobacco Use Types Packs/Day Years [...] Date Recorded Do you have housing? (Avis costello is defined as stable permanent housing and does not include staying ouside in a car, in a tent, in an abandoned building, in an overnight residential, or couch-surfing.) Yes 05/31/2024 Are you worried [...] Assigned at Female 10/31/2021 7:59 AM BUSINESS APPLICATIONS SPECIALIST Legal Sex Female 10:14 AM BUSINESS APPLICATIONS SPECIALIST Gender Identity Female 10/31/2021 7:59 AM BUSINESS APPLICATIONS SPECIALIST Sexual Orientation Straight 10/31/2021 7: 59 AM BUSINESS APPLICATIONS SPECIALIST documented as of this encounter Plan of Treatment Upcoming Encounters Date Type Department Care Team (Late st Contact Info) Description 01/11/2025 9:00 AM CDT Virtual Visit [facility] Neurology Clinic [address] [place] [phone] Rosalba Pendleton, MAXIMILIANO EXPLOSIVE ORDNANCE TECHNICIAN [address] [place] [address] [id number] [place], [place] 598815 05/01/2025 10:00 AM CDT Office Visit [facility] [place] [address] [phone] Abhishek Acevedo PA-C 6363 [facility] 103 [place], [place] [id number] 05/23/2025 10:40 AM CDT Virtual Visit [facility] Gastroenterology Clinic [address] [place] [phone] Abby Vasquez MD [address] [place] [address] 595565 documented as of this encounter Visit Diagnoses Not on filedocumented in this encounter Additional Health Concerns Assessment Noted Time PHQ-9 Depression Total Score: 12 024 12:52 PM BUSINESS APPLICATIONS SPECIALIST documented as of this encounter Care Teams Tower Hand Relationship Specialty Start Date End Date Monty Musa MD PCP - General Family Medicine 08/13/21 Alfonso Tnag Family Practice 08/13/21 Dayanara Bee MD [address] [place] [address] 75 [place], [place] [phone] Pediatrics 12/26/14 Min Lange MD [address] [address] Neurology 03/30/16 Marlo Madsen MD [address] [place] [address] Cardiology 10/27/16 Mel Buckley, DIAZ Nurse Coordinator Physical Medicine and Rehabilitation 12/02/16 Douglas Cadet MD Gastroenterology 08/13/21 Rosalba Pendleton APRN EXPLOSIVE ORDNANCE TECHNICIAN [address] [place] [address], [place] [address] Nurse Practitioner Neurology 09/05/21 Marlo Madsen MD [address] [place] [address] 961375 Assigned Heart and Vascular Provider 03/14/22 Abby Vasquez MD [address] [place] [address] 469195 Gastroenterology 07/16/22 Airam Hodges PA-C [address] [place] [address] 543105 Physician Motorcycle Maker Surgery 07/19/23 Zain Quintana MD [address] [place] [address] 672055 Assigned Surgical Provider 10/07/23 Latricia Pettit PA-C [address] [place] [address] Assigned Gastroenterology Provider 10/15/23 Torri Francois MD [address] [place] [address] Assigned Neuroscience Provider 10/05/24 11/04/24 documented as of this encounter
--- OUTSIDE RECORDS SUMMARY | 2024-12-11 12:13 | XMS_ITS | Encounter Summary ---
Author Organization [place] Address [address] [place] [address]. [place] [address] Care Team Providers Care Recreational Vehicle Resort Manager Name Role Phone Monty Musa MD Primary Care Provider Alfonso Tang Unavailable Unavailable Dayanara Bee MD Unavailable [phone] Min Lange MD Unavailable Unavailable Marlo Madsen MD Unavailable [phone] Mel Buckley RN Unavailable [phone] Douglas Cadet MD Unavailable Rosalba Pendleton CIVIL ENGINEERING INTERN REGIONAL FORESTER Unavaila ble Rosalba Pendleton APRN REGIONAL FORESTER Unavaila ble Marlo Madsen MD Unavailable [phone] Abby Vasquez MD Unavailable Airam Hodges PA-C Unavailable [phone] Zain Quintana MD Unavailable [phone] Latricia Pettit PA-C Unavailable [phone] Torri Francois MD Unavailable [phone] Abhishek Acevedo PA-C Unavailable [phone] Encounter Details Date Type Department Care Team (Late st Contact Info) Description 05/24/[address] [facility] Gastroenterology Clinic [address] [place] [phone] Savannah Dyer MA Social History Tobacco Use Types Packs/Day Years Used Date Smoking Tobacco: Never Smokeless Tobacco: Never Alcohol Use Standard Drinks/Week Comments No 0 (1 standard drink = 0.6 oz pur e alcohol) PHQ-2 Answer Date Recorded PHQ-2 Score 1 03/21/2024 Adolescent Education Answer Date Record ed Getting School Help Needed Not on file 06/04 Comments No Sex and Gender Information Value Date Recorded Sex Assigned at Female 10/31/2021 7:59 AM LASER MACHINE OPERATOR Legal Sex Female 10:14 AM LASER MACHINE OPERATOR Gender Identity Female 10/31/2021 7:59 AM LASER MACHINE OPERATOR Sexual Orientation Straight 10/31/2021 7: 59 AM LASER MACHINE OPERATOR documented as of this encounter Plan of Treatment Upcoming Encounters Date Type Department Care Team (Late st Contact Info) Description 01/11/2025 9:00 AM CDT Virtual Visit [facility] Neurology [facility] [address] [place] [phone] Rosalba Pendleton APRN [address] [place] [address] 05/01/2025 10:00 AM CDT Office Visit [facility] Sleep [facility] [address] [address] Abhishek Acevedo PA-C [address] [id number] 05/23/2025 10:40 AM CDT Virtual Visit [facility] Gastroenterology [facility] [address] [place] [phone] Abby Vasquez MD [address] [place] [address] documented as of this encounter Visit Diagnoses Not on filedocumented in this encounter Additional Health Concerns Assessment Noted Time PHQ-9 Depression Total Score: 12 024 12:52 PM LASER MACHINE OPERATOR documented as of this encounter Care Teams Recreational Vehicle Resort Manager Relationship Specialty Start Date End Date Monty Musa MD PCP - General Family Medicine 08/13/21 Alfonso Tang Family Practice 08/13/21 Dayanara Bee MD [address] 755045 Pediatrics 12/26/14 Min Lange MD [address] [address] Neurology 03/30/16 Marlo Madsen MD [address] [id number] Cardiology 10/27/16 Mel Buckley, RN Nurse Coordinator Physical Medicine and Rehabilitation 12/02/16 Douglas Cadet MD Gastroenterology 08/13/21 Rosalba Pendleton APRN REGIONAL FORESTER [id number] [place] [address] Nurse Practitioner Neurology 09/05/21 Rosalba Pendleton APRN REGIONAL FORESTER [id number] [place] [address] Assigned Neuroscience Provider 11/09/21 10/04/24 Marlo Madsen MD [address] [place] [address] 75 [place] [address] Assigned Heart and Vascular Provider 03/14/22 Abby Vasquez MD [address] [place] [address] Gastroenterology 07/16/22 Airam Hodges PA-C [address] [place] [address] Physician Tile Sprayer Surgery 07/19/23 Zain Quintana MD [address] [place] [address] Assigned Surgical Provider 10/07/23 Latricia Pettit PA-C [address] [place] [address] Assigned Gastroenterology Provider 10/15/23 Torri Francois MD [address] [place] [address] Assigned Neuroscience Provider 10/05/24 11/04/24 Abhishek Acevedo PA-C [address] [address] Assigned Neuroscience Provider 11/05/24 documented as of this encounter
--- OUTSIDE RECORDS SUMMARY | 2024-12-11 12:13 | XMS_ITS | Encounter Summary ---
Author Organization [place] Address [address] [place] [address]. [place] [address] Care Team Providers Care Stripping Cutter And Winder Name Role Phone Monty Musa MD Primary Care Provider [phone] Alfonso Tang Unavailable Unavailable Dayanara Bee MD Unavailable [phone] Min Lange MD Unavailable Unavailable BendMarlo molina MD Unavailable [phone] Mel Buckley RN Unavailable [phone] Douglas Cadet MD Unavailable [phone] Rosalba Pendleton ICE PULLER SAFETY DIRECTOR Unavaila ble Rosalba Pendleton APRN SAFETY DIRECTOR Unavaila ble Douglas Cadet MD Unavailable [phone] Marlo Madsen MD Unavailable [phone] Abby Vasquez MD Unavailable Abby Vasquez MD Unavailable Airam Hodges PA-C Unavailable [phone] Zain Quintana MD Unavailable [phone] Latricia Pettit PA-C Unavailable [phone] Torri Francois MD Unavailable Abhishek Acevedo PA-C Unavailable [phone] Encounter Details Date Type Department Care Team (Late Contact Info) Description 05/05/2023 MyC Medical Advice [facility] Gastroenterology Clinic [address] [place] [phone] Latricia Pettit PA-C [address] [place] [address] [id number] Social History Tobacco Use Types Packs/Day Years Used Date Smoking Tobacco: Never Smokeless Tobacco: Never Alcohol Use Standard Drinks/Week Comments No 0 (1 standard drink = 0.6 oz pur e alcohol) PHQ-2 Answer Date Recorded PHQ-2 Score 2 04/02/2023 Comments No Sex and Gender Information Value Date Recorded Sex Assigned at Female 10/31/2021 7:59 AM PRECISION INSTRUMENT MAKER Legal Sex Female 10:14 AM PRECISION INSTRUMENT MAKER Gender Identity Female 10/31/2021 7:59 AM PRECISION INSTRUMENT MAKER Sexual Orientation Straight 10/31/2021 7: 59 AM PRECISION INSTRUMENT MAKER COVID-19 Exposure Response Date Recorded In the last 10 days, have yo u been in contact with someone who was confirmed or suspected to have Coronavirus/COVID-19? Unable to assess 04/27/2023 10:12 AM CDT documented as of this encounter Plan of Treatment Upcoming Encounters Date Type Department Care Team (Late Contact Info) Description 01/11/2025 9:00 AM CDT Virtual Visit [facility] Neurology [facility] [address] [place] [phone] Rosalba Pendleton APRN SAFETY DIRECTOR [address] [place] [address] [id number] [place], [place] 8[address]885 05/01/2025 10:00 AM CDT Office Visit [facility] [place] 0670 [facility] 103 [place] [address] Abhishek Acevedo PA-C [address] [facility] [address] [place] [address] 05/23/2025 10:40 AM CDT Virtual Visit [facility] [address] 4th [place] [phone] Abby Vasquez MD [address] [place] [address] 344665 documented as of this encounter Visit Diagnoses Not on filedocumented in this encounter Additional Health Concerns Assessment Noted Time PHQ-9 Depression Total Score: 11 022 11:52 AM CDT documented as of this encounter Care Teams Stripping Cutter And Winder Relationship Specialty Start Date End Date Monty Musa MD PCP - General Family Medicine 08/13/21 Alfonso Tang Family Practice 08/13/21 Dayanara Bee MD [address] [address] Pediatrics 12/26/14 Min Lange MD [address] [address] Neurology 03/30/16 Marlo Madsen MD [address] 701455 Cardiology 10/27/16 Mel Buckley, RN Nurse Coordinator Physical Medicine and Rehabilitation 12/02/16 Douglas Cadet MD Gastroenterology 08/13/21 Rosalba Pendleton APRN SAFETY DIRECTOR [address] [place] [address] [id number] [place] [address] Nurse Practitioner Neurology 09/05/21 Rosalba Pendleton APRN SAFETY DIRECTOR [address] [place] [address] [id number] [place], [place] 093655 Assigned Neuroscience Provider 11/09/21 10/04/24 Douglas Cadet MD Assigned Gastroenterology Provider 03/14/22 09/03/23 Marlo Madsen MD [address] [place] [address] 75 [place], [place] 010345 Assigned Heart and Vascular Provider 03/14/22 Abby Vasquez MD [address] [place] [address] 111715 Gastroenterology 07/16/22 Abby Vasquez MD [address] [place] [address] 694895 Assigned PCP 09/26/22 10/06/23 Airam Hodges PA-C 500 [place], [place] 338375 Physician Splash Line Operator Surgery 07/19/23 Zain Quintana MD [address] [place] [address] 732285 Assigned Surgical Provider 10/07/23 Latricia Pettit PA-C [address] [place] [address] Assigned Gastroenterology Provider 10/15/23 Torri Francois MD [address] [place] [address] Assigned Neuroscience Provider 10/05/24 11/04/24 Abhishek Acevedo PA-C [address] [address] Assigned Neuroscience Provider 11/05/24 documented as of this encounter
--- OUTSIDE RECORDS SUMMARY | 2024-12-11 12:13 | XMS_ITS | Encounter Summary ---
Author Organization [place] Address [address] [place] [address]. [place] [address] Care Team Providers Care Spray Blender Name Role Phone Alfonso Tang Primary Care Provider Unavailabl Monty Olvera MD Primary Care Provider [phone] Alfonso Tang Unavailable Unavailable Dayanara Bee MD Unavailable [phone] Min Lange MD Unavailable Unavailable Marlo Madsen MD Unavailable [phone] Mel Buckley RN Unavailable [phone] Douglas Cadet MD Unavailable [phone] Rosalba Pendleton APRN TUNNEL MINER Unavaila ble Rosalba Pendleton APRN TUNNEL MINER Unavaila ble Douglas Cadet MD Unavailable [phone] Marlo Madsen MD Unavailable [phone] Abby Vasquez MD Unavailable Abby Vasquez MD Unavailable Airam Hodges PA-C Unavailable [phone] Zain Quintana MD Unavailable [phone] Latricia Pettit PA-C Unavailable [phone] Torri Francois MD Unavailable [phone] Abhishek Acevedo PA-C Unavailable [phone] Encounter Details Date Type Department Care Team (Late st Contact Info) Description 04/02/2015 MyC Medical Advice [facility] Physicians [facility] [place] [facility] 4th Floor, Clinic 4B [facility] [address] [place] [phone] Marlo Madsen MD [address] [place] [address] [id number] Social History Tobacco Use Types Packs/Day Years Used Date Smoking Tobacco: Never Smokeless Tobacco: Never Alcohol Use Standard Drinks/Week Comments No 0 (1 standard drink = 0.6 oz pur e alcohol) Comments No Sex and Gender Information Value Date Recorded Sex Assigned at Female 10/31/2021 7:59 AM IMMERSION METAL CLEANER Legal Sex Female 10:14 AM IMMERSION METAL CLEANER Gender Identity Female 10/31/2021 7:59 AM IMMERSION METAL CLEANER Sexual Orientation Straight 10/31/2021 7: 59 AM IMMERSION METAL CLEANER documented as of this encounter Plan of Treatment Upcoming Encounters Date Type Department Care Team (Late st Contact Info) Description 01/11/2025 9:00 AM CDT Virtual Visit [facility] Neurology Clinic [address] [place] [phone] Rosalba Pendleton, MAXIMILIANO TUNNEL MINER 9 [facility] [id number] [place] [address] 05/01/2025 10:00 AM CDT Office Visit [facility] [place] [address] [phone] Abhishek Acevedo PA-C 6474 [facility] 103 [place] [address] 05/23/2025 10:40 AM CDT Virtual Visit [facility] Gastroenterology Clinic [address] [place] [phone] Abby Vasquez MD 909 [place] [address] documented as of this encounter Visit Diagnoses Not on filedocumented in this encounter Additional Health Concerns Infection Onset Date Last Indicated Resolved Time Rule Out COVID-19 04/03/2023 04/03/2023 04/04/2023 6:30 PM CDT documented as of this encounter Care Teams Spray Blender Relationship Specialty Start Date End Date Alfonso Tang PCP - General Family Practice 09/04/13 08/12/21 Monty Musa MD PCP - General Family Medicine 08/13/21 Alfonso Tang Family Practice 08/13/21 Dayanara Bee MD [address] [address] Pediatrics 12/26/14 Min Lange MD [address] [address] Neurology 03/30/16 Marlo Madsen MD [address] [address] Cardiology 10/27/16 Mel Buckley, RN Nurse Coordinator Physical Medicine and Rehabilitation 12/02/16 Douglas Cadet MD Gastroenterology 08/13/21 Rosalba Pendleton, BI TESTER TUNNEL MINER 909 [facility] [id number] [place] [address] Nurse Practitioner Neurology 09/05/21 Rosalba Pendleton APRN TUNNEL MINER [address] [place] [address] [id number] [place], [place] 466175 Assigned Neuroscience Provider 11/09/21 10/04/24 Douglas Cadet MD Assigned Gastroenterology Provider 03/14/22 09/03/23 Marlo Madsen MD [address] [place] [address] 75 [place], [place] 128715 Assigned Heart and Vascular Provider 03/14/22 Abby Vasquez MD [address] [place] [address] 975095 Gastroenterology 07/16/22 Abby Vasquez MD [address] [place] [address] 346805 Assigned PCP 09/26/22 10/06/23 Airam Hodges PA-C 500 [place], [place] 506595 Physician Plate Preparer Surgery 07/19/23 Zain Quintana MD [address] [place] [address] 896925 Assigned Surgical Provider 10/07/23 Latricia Pettit PA-C [address] [place] [address] Assigned Gastroenterology Provider 10/15/23 Torri Francois MD [address] [place] [address] Assigned Neuroscience Provider 10/05/24 11/04/24 Abhishek Acevedo PA-C [address] [place] [address] Assigned Neuroscience Provider 11/05/24 documented as of this encounter
--- OUTSIDE RECORDS SUMMARY | 2024-12-11 12:13 | XMS_ITS | Encounter Summary ---
Author Organization [facility] Address [address] [place] [address]. [place] [address] Care Team Providers Care Digital Account Manager Name Role Phone Monty Musa MD Primary Care Provider [phone] Alfonso Tang Unavailable Unavailable Dayanara Bee MD Unavailable [phone] Min Lange MD Unavailable Unavailable Marlo Madsen MD Unavailable [phone] Mel Buckley RN Unavailable [phone] Douglas Cadet MD Unavailable [phone] Rosalba Pendleton APRN, CNP Unavaila ble Marlo Madsen MD Unavailable [phone] Abby Vasquez MD Unavailable Airam Hodges PA-C Unavailable [phone] Zain Quintana MD Unavailable [phone] Latricia Pettit PA-C Unavailable [phone] Torri Francois MD Unavailable [phone] Reason for Visit * Diagnostic Imaging XR (Routine) - Pending Review Specialty Diagnoses / Procedures Referred By Contac t Referred To Contact Radiology. Diagnoses Chronic idiopathic constipation Pelvic floor dysfunction Irritable bowel syndrome with constipation Procedures X-ray Abdomen 1 vw Latricia Pettit PA-C 909 [place] [address] Phone: tel: fax: Referral ID Status Reason Start Date Expiration Date V isits Requested Visits Authorized [id number] Pending Review 10/03/2024 10/03/2025 1 1 Encounter Details Date Type Department Care Team (Latest Contact Info) Description 11/01/2024 1:00 PM DISTRIBUTION FIELD ENGINEER Ancillary Procedure [address] [phone] Latricia Pettit PA-C [address] [place], [place] [id number] Chronic idiopathic constipation; Pelvic floor dysfunction; Irritable bowel syndrome with constipation Social History Tobacco Use Types Packs/Day [...] in an abandoned building, in an overnight group home, or couch-surfing.) Yes 05/31/2024 Are you [...] Sex Assigned at Female 10/31/2021 7:59 AM DISTRIBUTION FIELD ENGINEER Legal Sex Female 10:14 AM DISTRIBUTION FIELD ENGINEER Gender Identity Female 10/31/2021 7:59 AM DISTRIBUTION FIELD ENGINEER Sexual Orientation Straight 10/31/2021 7: 59 AM DISTRIBUTION FIELD ENGINEER documented as of this encounter Plan of Treatment Upcoming Encounters Date Type Department Care Team (Late st Contact Info) Description 01/11/2025 9:00 AM CDT Virtual Visit [facility]rology [facility] [address] [place] [address] Rosalba Pendleton, MAXIMILIANO TRIAGE REGISTER NURSE [address] [place] [address] [id number] [place], [place] [phone] 05/01/2025 10:00 AM CDT Office Visit [facility] [place] [id number] [address] [phone] Abhishek Acevedo PA-C 6363 [facility] 103 [place] [address] 05/23/2025 10:40 AM CDT Virtual Visit [facility] Gastroenterology [facility] [address] [place] [address] Abby Vasquez MD [address] [place] [address]95 documented as of this encounter Procedures Procedure Name Priority Date/Time Associated Diagnosis Comments XR ABDOMEN 1 VIEW Routine 11/01/2024 1:0 0 PM DISTRIBUTION FIELD ENGINEER Chronic idiopathic constipation Pelvic floor dysfunction Irritable bowel syndrome with constipation documented in this encounter Results * X-ray Abdomen 1 vw (11/01/2024 1:00 PM DISTRIBUTION FIELD ENGINEER) Anatomical Region Laterality Modality Abdomen/Pelvis Computed Radiogr aphy 11/01/2024 1:00 PM DISTRIBUTION FIELD ENGINEER Impressions 11/01/2024 1:07 PM DISTRIBUTION FIELD ENGINEER IMPRESSION: Nonobstructive bowel gas pattern. Large amount of formed stool in the cecum, ascending colon and transverse colon; and small amount of formed stool in the descending colon. Narrative 11/01/2024 1:07 PM DISTRIBUTION FIELD ENGINEER EXAM: XR ABDOMEN 1 VIEW LOCATION: [facility] DATE: 11/01/2024 INDICATION: Standing order > Please comment on stool gas pattern COMPARISON: 07/09/2023 Procedure Note Christine Santacruz MD - 11/01/2024 EXAM: XR ABDOMEN 1 VIEW LOCATION: [facility] DATE: 11/01/2024 INDICATION: Standing order > Please comment on stool gas pattern COMPARISON: 07/09/2023 IMPRESSION: Nonobstructive bowel gas pattern. Large amount of formed stoolin the cecum, ascending colon and transverse colon; and small amount offormed stool in the descending colon. Latricia Pettit PA-C [facility] Final Result documented in this encounter Visit Diagnoses Diagnosis Chronic idiopathic constipation Unspecified constipation Pelvic floor dysfunction Pelvic muscle wasting Irritable bowel syndrome with constipation Irritable bowel syndrome documented in this encounter Additional Health Concerns Assessment Noted Time PHQ-9 Depression Total Score: 12 024 12:52 PM DISTRIBUTION FIELD ENGINEER documented as of this encounter Care Teams Digital Account Manager Relationship Specialty Start Date End Date Monty Musa MD PCP - General Family Medicine 08/13/21 Alfonso Tang Family Practice 08/13/21 Dayanara Bee MD [address] [address] Pediatrics 12/26/14 Min Lange MD [address] [address] Neurology 03/30/16 Marlo Madsen MD [address] [place] [address] Cardiology 10/27/16 Mel Buckley, RN Nurse Coordinator Physical Medicine and Rehabilitation 12/02/16 Douglas Cadet MD Gastroenterology 08/13/21 Rosalba Pendleton APRN TRIAGE REGISTER NURSE 909 [id number] [place] [address] Nurse Practitioner Neurology 09/05/21 Marlo Madsen MD [address] [place] [address] Assigned Heart and Vascular Provider 03/14/22 Abby Vasquez MD 909 [place] [address] Gastroenterology 07/16/22 Airam Hodges PA-C 500 [place], [place] 556865 Physician Life Insurance Underwriter Surgery 07/19/23 Zain Qiuntana MD 500 [place] [address] Assigned Surgical Provider 10/07/23 Latricia Pettit PA-C [address] [place] [address] Assigned Gastroenterology Provider 10/15/23 Torri Francois MD [address] [place] [address] 197955 Assigned Neuroscience Provider 10/05/24 11/04/24 documented as of this encounter
--- OUTSIDE RECORDS SUMMARY | 2024-12-11 12:13 | XMS_ITS | Encounter Summary ---
Author Organization [facility] Address [address] [place] [address]. [place] [address] Care Team Providers Care Office Helper Name Role Phone Monty Musa MD Primary Care Provider Alfonso Tang Unavailable Unavailable Dayanara Bee MD Unavailable [phone] Min Lange MD Unavailable Unavailable Marlo Madsen MD Unavailable [phone] Mel Buckley RN Unavailable [phone] Douglas Cadet MD Unavailable Rosalba Pendleton APRN FINANCIAL OPERATIONS CLERK Unavaila ble Marlo Madsen MD Unavailable [phone] Abby Vsaquez MD Unavailable Airam Hodges PA-C Unavailable [phone] Zain Quintana MD Unavailable [phone] Latricia Pettit PA-C Unavailable [phone] Abhishek Acevedo PA-C Unavailable [phone] Reason for Referral * Diagnostic Imaging XR (Routine) - Pending Review Specialty Diagnoses / Procedures Referred By Contgeovany t Referred To Contact Radiology. Diagnoses Constipation, unspecified constipation type Procedures X-ray KUB Abby Vasquez MD [address] [place] [address] Phone: tel: fax: Referral ID Status Reason Start Date Expiration Date V isits Requested Visits Authorized [id number] Pending Review 11/15/2024 11/15/2025 1 1 RAL LABOR Reason for Visit * Reason Comments Follow Up Encounter Details Date Type Department Care Team (Latest Contact Info) Description 11/15/2024 11:20 AM GENERAL LABOR Office Visit [facility] [address]th [place] [address] Abby Vasquez MD [address] [place] [id number] Constipation, unspecified constipation type (Primary Dx); Pelvic [...] in an abandoned building, in an overnight fpc, or couch-surfing.) Yes 05/31/2024 Are you worried [...] Sex Assigned at Female 10/31/2021 7:59 AM GENERAL LABOR Legal Sex Female 10:14 AM GENERAL LABOR Gender Identity Female 10/31/2021 7:59 AM GENERAL LABOR Sexual Orientation Straight 10/31/2021 7: 59 AM GENERAL LABOR documented as of this encounter Last Filed Vital Signs Vital Sign Reading Time Taken Comments Blood Pressure 136/95 11/15/2024 11:17 AM GENERAL LABOR Pulse 62 11/15/2024 11:17 AM GENERAL LABOR Temperature - - Respiratory Rate - - Oxygen Saturation 100% 11/15/2024 11:17 AM GENERAL LABOR Inhaled Oxygen Concentration - - Weight 79.5 kg (175 lb 3.2 oz) 11/15/2024 11:17 AM GENERAL LABOR Height 167.6 cm (5' 6) 11/15/2024 11:17 AM GENERAL LABOR Body Mass Index 28.28 11/15/2024 11:17 AM GENERAL LABOR documented in this encounter Patient Instructions * Patient Instructions* Abby Vasquez MD - 11/15/2024 11:20 AM GENERAL LABOR -Repeat XR to assess stool burden: If moderate to large stool burden start Amitiza in addition to Linzess - If small stool burden--> reduce miralaX dosing to 0-1 capfuls prn and continue Linzess and magnesium Action plan for bowels: - If no BM in 2-3 days --> take 3 pills ducolax - IF no BM in 3-4 days --> fleet enema x2, can also do a larger volume tap water enema (500 mL) which may have more effect on emptying the more proximal colon - If no BM > week--> partial bowel cleanout (4-8 glasses of miralax) - Contact GI clinic if you do not have success with above recommendations -BM goal~ 3-4/week -As progress with home PT exercises plateaus, will likely need to check back in with pelvic PT -Consider surgery referral in the future if constipation refractory to tx -Ok to avoid glycerin suppository as not effective for you -Continue magnesium 1000 mg and fibers 10 mg daily -Consider scheduled bowel cleanses (about quarterly) even with regular BMs (to avoid episodes such as experienced in Oct 2024) Imaging Studies: If you were scheduled for a CT scan, X-ray, MRI, ultrasound, HIDA scan or other imaging study, please call [phone] to have this scheduled If you have any questions, please don't hesitate to contact me through our GI RN Lacquerer, Sheri Edmonds, at . RAL LABOR RAL LABOR documented in this encounter Progress Notes * Abby Vasquez MD - 11/15/2024 11:20 AM CST Images from the original note were not included. Reason for Visit: chief complaint History of Present Illness: Latricia is a 33 year old female with significant past medical history pertinent for dysautonomia, frequent migraine HAs, chronic diffuse abdominal pain, constipation, nausea, and prior adenomatous polyp who returns to GI clinic for follow-up of constipation and pelvic floor dysfunction. She was most recently seen in our clinic by KENDRICK Coto on 10/03/24. Interval History November 15, 2024: Was doing well throughout September and early Oct - having 2-4 large BMs a week. Experienced increased abdominal pain 2 weeks prior to presentation, which she describes twisting pain. Was associated with nausea and few episodes of vomiting. She was having BM which she felt was adequate. She used dicolax but didn't help. After contacting clinic, an AXR was done which revealed a stool burden. Per my (Dr. Vasquez) read this was most pronounced in the right colon. A bowel cleanout was recommened, which she completed with significant improvement afterwards and felt she emptied her bowels. She continued on Linzess and, after the bowel cleanout she was taking Miralax to 3 heaping capfuls x1 week then transition back to 2 capfuls. She now has~ 2 small liquid BM/ day but this small volume worries her. Her abdominal pain is at baseline~3 but she worries she is backing up again as she's not passingany large, formed stool. She also expresses concern that she thought she was having good output up until the increased pain leading to a bowel cleanout so she was surprised and worried this could happen again. Currently she is taking linzess, magnesium 1000 mg, miralax 2 capful and fibers 10 mg. She completed pelvic PT and now doing the exercise by herself. Interval History October 03, 2024: Bowel Patterns - Stating that today I have been doing pretty good. Has been having 4 BMs per week. Stating every couple of weeks will go 4-5 days without going. When this occurs she will take Dulcolax 5mg x 2 and will have a BM the following day. Abdominal Pain - Has had an increase in abdominal pain. Described as a twisting feeling stating I can feel my intestines trying to move stuff. This is occurring 2-3 days out of the month. Continuesto take Cymbalta 60 mg daily. Described as lower abdominal an inch above my belly button and down. Associated with nausea without emesis. Mild improvement with application of topical heat or the use of TENS unit. No improvement with Ibuprofen/Tylenol. No relation to postural changes. The pain is exacerbated the longer I am standing. Interval History March 21, 2024: Chief concern [...] of th week. Stools are described as [place] Stool Scale Type 4. This pattern is occurring cyclically typically on an every other week basis. On day 3 she will increase to 4 capfuls in the morning and if no BM then in the evening will take an additional 4 capfuls. Interval History November 24, 2023: Dr. Vasquez Since her last GI clinic visit, Ms. Burton has started pelvic floor therapy. She is [...] weeks as opposed to every week). Ms. Burton just started doing daily enemas as per [...] of large bowel movements most consistent with [place] Stool Scale Type 4. She then will [...] liver or colon). 12/09/2022 HPI: Ms Latricia Burton is a very pleasant 32 yo female with dysautonomia, frequent migraine HAs, chronic diffuse abdominal pain, constipation, nausea, and prior adenomatous polyp who returns to GI clinic forfollow-up of her constipation and nausea. She was previously seen by Dr. Dawson and Dr. Vasquez prior to moving to [place] in 2017 after getting . She moved back to [place] recently and was seen by Dr. Cadet in 02/2022 for chronic constipation, abdominal pain and nausea and this blurb writer on 08/19/2022. Briefly, she was started on Linzess around 2013 for chronic constipation which improved her constipation and resulted in BMs every other day. In 2016, she moved to [place] and stopped Linzess as she felt her [...] PT next week. As previously noted, Ms. Burton's father was diagnosed with colon cancer at the age of 49. She has had many colonoscopies in the past. Most recent at our institution was in 2016 when revealed 2 small hyperplastic polyps. She subsequently had another colonoscopy in [place] which she reports was normal. In early 2020, she had a colonoscopy in [place] which was reported to be negative for adenoma. We do not have these reports at this time. Esophageal Questionnaire(s) BEDQ Questionnaire No data to display No data to display Eckardt Questionnaire No data to display Promis 10 Questionnaire No data to display STUDIES & PROCEDURES: EGD: Colonoscopy: 10/2021 [facility] 11/2016 Findings: Two semi-sessile polyps were found [...] BY BIOPSY; Surgeon: Chaitanya Colon MD; Location: GI COLONOSCOPY WITH CO2 INSUFFLATION N/A 12/13/2014 Procedure: COLONOSCOPY WITH CO2 INSUFFLATION; Surgeon: Adelso Dawson MD; Location: U OR ORTHOPEDIC SURGERY [facility] EXPLORATORY OF ABDOMEN Social History Socioeconomic History Marital status: Spouse name: Not on file Number of children: Not on file Years of education: Not on file Highest education level: Not on file Occupational History Not on file Tobacco Use Smoking status: Never Smokeless tobacco: Never Vaping Use Vaping status: Never Used Substance and Sexual Activity Alcohol use: No Drug use: No Sexual activity: Yes Partners: Male control/protection: Pill Other Topics Concern Not on file Social History Narrative Not on file Social Drivers of Health Financial Resource Strain: Low Risk (05/31/2024) Financial Resource Strain Within the past 12 months, have you or your family members you live with been unable to get utilities (heat, electricity) when it was really needed?: No Food Insecurity: Low Risk (05/31/2024) Food Insecurity Within the past 12 months, did you worry that your food would run out before you got money to buy more?: No Within the past 12 months, did the food you bought just not last and you didn???t have money to getmore?: No Transportation Needs: Low Risk (05/31/2024) Transportation Needs Within the past 12 months, has lack of transportation kept you from medical appointments, getting your medicines, non-medical meetings or appointments, work, or from getting things that you need?: No Physical Activity: Not on file Stress: Not on file Social Connections: Not on file Interpersonal Safety: Low Risk (05/31/2024) Interpersonal Safety Do you feel physically and emotionally safe where you currently live?: Yes Within the past 12 months, have you been hit, slapped, kicked or otherwise physically hurt by someone?: No Within the past 12 months, have you been humiliated or emotionally abused in other ways by your partner or ex-partner?: No Housing Stability: Low Risk (05/31/2024) Housing Stability Do you have housing? : Yes Are you worried about losing your housing?: No Family History Problem Relation Age of [...] and Allergies: Outpatient Encounter Medications as of 11/15/2024 Medication Sig Dispense Refill atorvastatin (LIPITOR) 10 MG tablet Take 10 mg by mouth every evening clonazePAM (KLONOPIN) 0.5 MG tablet Take 0.5 mg by mouth daily as needed for anxiety. DULoxetine (CYMBALTA) 30 MG capsule Take 30 mg by mouth daily. Take with 60 mg for total of 90 mg daily DULoxetine (CYMBALTA) 60 MG capsule Take 60 mg by mouth daily. Take with 30 mg for total of 90 mg daily erenumab-aooe (AIMOVIG) 140 MG/ML injection Inject 1 mL (140 mg) Subcutaneous every 30 days 1 mL 11 FIBER ADULT GUMMIES PO Take 10 g by mouth every morning. Use own fludrocortisone (FLORINEF) 0.1 MG tablet Take 2 tablets (0.2 mg) by mouth once daily. 180 tablet 3 levothyroxine (SYNTHROID/LEVOTHROID) 25 MCG tablet Take 25 mcg by mouth every morning (before breakfast). LINZESS 290 MCG capsule TAKE ONE CAPSULE BY MOUTH ONE TIME DAILY IN THE MORNING BEFORE BREAKFAST* Magnesium Oxide -Mg Supplement 500 MG TABS Take 1,000 mg by mouth at bedtime. midodrine (PROAMATINE) 5 MG tablet Take 2 tabletS BY MOUTH in the morning, and 1 tablet in the afternoon. Do not take within 4 hours lying down (Patient taking differently: Take 2 tabletS BY MOUTH inthe morning, and 1 tablet in the afternoon (PRN). Do not take within 4 hours lying down) 270 tablet1 Multiple Vitamins-Minerals (MULTIVITAMIN GUMMIES ADULTS PO) Take 1 chew tab by mouth daily. Use own norethindrone (MICRONOR) 0.35 MG tablet ondansetron (ZOFRAN ODT) 4 MG ODT tab Take 4 mg by mouth every 8 hours as needed for nausea or vomiting. order for DME Equipment being ordered: Micro climate cooling vest 1 kit 0 polyethylene glycol (MIRALAX) 17 g packet Take 17 g by mouth daily. ZOLMitriptan (ZOMIG-ZMT) 5 MG ODT Take 1 tablet (5 mg) by mouth at onset of headache for migraine May repeat in 2 hours. Max 2 tablets/24 hours. 18 tablet 11 No facility-administered encounter medications on file as of 11/15/2024. Allergies Allergen Reactions Amoxicillin-Pot Clavulanate GI Disturbance Clavulanic Acid Other Reaction(s): High B/P, diarrhea Hydrocodone Nausea and Vomiting Hydrocodone-Acetaminophen Unknown Review of systems: A full 10 point review of systems was obtained and was negative except for the pertinent positives and negatives stated within the HPI. Objective Findings: Physical Exam: Constitutional: BP (!) 136/95 Pulse 62 Ht 1.676 m (5' 6) Wt 79.5 kg (175 lb 3.2 oz) SpO2 100% BMI 28.28 kg/m?? General: Alert, cooperative, no distress, well-appearing [...] Pathology Lab Results Component Value Date WBC 3.5 (L) 04/20/2024 WBC 4.4 07/09/2023 WBC 11.4 (H) 07/15/2022 HGB 13.4 04/20/2024 HGB 13.0 07/09/2023 HGB 12.3 07/15/2022 PLT 228 04/20/2024 PLT 249 07/09/2023 PLT 254 07/15/2022 ALT 24 07/09/2023 ALT 22 03/04/2022 ALT 33 01/07/2015 AST 27 07/09/2023 AST 23 03/04/2022 AST 17 01/07/2015 NA 141 04/20/2024 NA 135 07/09/2023 NA 136 07/15/2022 BUN 7.7 04/20/2024 BUN 8.6 07/09/2023 BUN 7.0 07/15/2022 CO2 24 04/20/2024 CO2 27 07/09/2023 CO2 25 07/15/2022 TSH 0.65 03/04/2022 TSH 0.56 10/30/2013 Liver Function Studies - Recent Labs Lab Test 03/04/22 1235 PROTTOTAL 7.6 ALBUMIN 3.4 BILITOTAL 0.2 ALKPHOS 50 AST 23 ALT 22 Patient Active Problem List Diagnosis Date Noted Nonspecific paroxysmal spell 05/31/2024 Priority: Medium Slow transit constipation 12/01/2023 Priority: Medium Irritable bowel syndrome without diarrhea 04/15/2016 Priority: Medium Syncope 01/25/2014 Priority: Medium Intractable 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 aura 10/05/2013 Priority: Medium Problem list name updated by automated process. 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 Priority: Medium Abdominal pain, generalized 10/05/2013 Priority: Medium Assessment and Plan Assessment/Plan: #Constipation #Pelvic Floor Dysfunction As per my prior documentation, follow-up for chronic constipation with pelvic floor dysfunction. She has previously tried secretagogues Linzess and Amitiza (each on their own, not together) with initial success however results had waned over time. She underwent pelvic floor therapy for approximately 6 weeks time with biofeedback with reports of minimal improvement. Over time she was transitioned to Trulance which initially worked with addition of magnesium or Miralax to her daily med as needed. She was seen by colorectal surgery in 2023 for details on surgical management of constipation should she become refractory to medical management. A Sitz marker test was negative on day 5 with 2 markers remaining within the rectum. This was completed off medications which were stopped 2 days prior. Latricia also established with pelvic floor physical therapy in 2023(has since completed treatment). Trulance effect waned and she was transitioned back to Linzess with possibility of adding Amitiza on top of that, but she did well with Linzess, magnesium, and prn Miralax for some time (2-4 BMs a week which felt satisfactory). In Oct 2024 she developed increased abd pain and AXR revealed a marked stool burden. Pain resolved with bowel cleanout and she felt well. Since then she's been on Linzess and magnesium with regular Miralax use and is only producing liquid stools, smaller in volume. She is worried she is backed up again, though I expressed my concern she may be on too many bowel meds atthis time. She was open to an AXR to assess stool burden with interventions as outlined below. Additionally, action plan for bowels updated as detailed below. We suspect that neuro signaling is also playing a role in her sensation of fullness, though it is unclear to what degree dysautonomia is contributing. At the moment, we will avoid making any medication changes until we have the XR results (plan outlined below). She had reached a steady state with PT and will likely need to work with them again in the future. Advised to monitor her symptoms so we can intervene as early as possible. If constipation becomes refractory, we can always refer her backto colorectal surgery,however, we still have other options. Plan: -Repeat XR to assess stool burden: If moderate to large stool burden start Amitiza in addition to Linzess - If small stool burden--> reduce miralaX dosing to 0-1 capfuls prn and continue Linzess and magnesium Action plan for bowels: - If no BM in 2-3 days --> take 3 pills ducolax - IF no BM in 3-4 days --> fleet enema x2, can also do a larger volume tap water enema (500 mL) which may have more effect on emptying the more proximal colon - If no BM > week--> partial bowel cleanout (4-8 glasses of miralax) - Contact GI clinic if you do not have success with above recommendations -BM goal~ 3-4/week -As progress with home PT exercises plateaus, will likely need to check back in with pelvic PT -Consider surgery referral in the future if constipation refractory to tx -Ok to avoid glycerin suppository as not effective for you -Continue magnesium 1000 mg and fibers 10 mg daily -Consider scheduled bowel cleanses (about quarterly) even with regular BMs (to avoid episodes such as experienced in Oct 2024) #Colorectal Cancer Screening Colonoscopy 2016 with 2 [...] 2026. Follow up plan: Return to clinic 6 month or sooner as needed. The patient verbalized understanding of the plan and was appreciative for the time spent and information provided during the office visit. Sofia Hook MD Internal Medicine Resident Physician Attestation I, Abby Vasquez MD, saw this patient and agree with the findings and plan of care as documented in the note. Note has been edited to reflect my history, exam, and assessment and plan. Items personally reviewed/procedural attestation: Recent XR imaging. Abby Vasquez MD I spent 20 minutes with the patient, of which > 50% was spent [id number] with the patient in education, counseling, and addressing questions regarding the above diagnoses. An additional 15 minutes was spent on the date of the encounter doing chart review (notes, labs, imaging reports, endoscopic and pathology reports, clinical status events, medications, etc) documentation, care coodination,and arranging of care plan with the fellow. RAL LABOR documented in this encounter Nursing Notes * Yanet Altamirano MA - 11/15/2024 11:20 AM CST Do you have a history of colon cancer in your immediate family? NO If yes who: negative And what age were they diagnosed: Chief Complaint Patient presents with Follow Up Vitals: 11/15/24 1117 BP: (!) 136/95 Pulse: 62 SpO2: 100% Weight: 79.5 kg (175 lb 3.2 oz) Height: 1.676 m (5' 6) Body mass index is 28.28 kg/m??. Yanet Altamirano MA Blood pressure elevated. Provider notified. Recheck offered. RAL LABOR documented in this encounter Plan of Treatment Upcoming Encounters Date Type Department Care Team (Late st Contact Info) Description 01/11/2025 9:00 AM CDT Virtual Visit [facility] [address]rd [place] [phone] Rosalba Pendleton APRN [address] [id number] [place] [address] 05/01/2025 10:00 AM CDT Office Visit [facility] [place] [address] [facility] [address] [place] [phone] Abhishek Acevedo PA-C [address] [facility] [address] [place], [place] [id number] 05/23/2025 10:40 AM CDT Virtual Visit [facility] [address] [address] Abby Vasquez MD [address] [place] [id number] documented as of this encounter Results * X-ray KUB (11/15/2024 2:54 PM GENERAL LABOR) Anatomical Region Laterality Modality Abdomen/Pelvis Computed Radiogr aphy 11/15/2024 2:54 PM GENERAL LABOR Impressions 11/15/2024 3:07 PM GENERAL LABOR IMPRESSION: No radiographic evidence of bowel obstruction. Small colonic stool burden, decreased in comparison to prior radiograph. No acute bony abnormality. Narrative 11/15/2024 3:07 PM GENERAL LABOR EXAM: XR KUB LOCATION: [facility] DATE: 11/15/2024 INDICATION: abdominal pain, please assess degree of stool burden COMPARISON: Abdominal radiograph 11/01/2024 Procedure Note Chan Justice MD - 11/15/2024 EXAM: XR KUB LOCATION: [facility] DATE: 11/15/2024 INDICATION: abdominal pain, please assess degree of stool burden COMPARISON: Abdominal radiograph 11/01/2024 IMPRESSION: No radiographic evidence of bowel obstruction. Small colonicstool burden, decreased in comparison to prior radiograph. No acute bonyabnormality. Abby Vasquez MD IMG DIAGNOSTIC IM AGING ORDERABLES Final Result documented in this encounter Visit Diagnoses Diagnosis Constipation, unspecified constipation type- Primary Pelvic floor dysfunction Pelvic muscle wasting Constipation, unspecified constipation type documented in this encounter Additional Health Concerns Assessment Noted Time PHQ-9 Depression Total Score: 12 024 12:52 PM GENERAL LABOR documented as of this encounter Care Teams Office Helper Relationship Specialty Start Date End Date Monty Musa MD PCP - General Family Medicine 08/13/21 Alfonso Tang [facility] 08/13/21 Dayanara Bee MD [address] [address] Pediatrics 12/26/14 Min Lange MD [address] [address] Neurology 03/30/16 Marlo Madsen MD [address] [place] [address] Cardiology 10/27/16 Mel Buckley, RN Nurse Coordinator Physical Medicine and Rehabilitation 12/02/16 Douglas Cadet MD Gastroenterology 08/13/21 Rosalba Pendleton APRN FINANCIAL OPERATIONS CLERK [address] [place], [place] [id number] [place], [place] [id number] Nurse Practitioner Neurology 09/05/21 Marlo Madsen MD [address] [place] [address] Assigned Heart and Vascular Provider 03/14/22 Abby Vasquez MD [address] [place] [address] [id number] Gastroenterology 07/16/22 Airam Hodges PA-C [address] [place] [address] [phone] Physician Rn Palliative Care Surgery 07/19/23 Zain Quintana MD [address] [place] [address] [id number] Assigned Surgical Provider 10/07/23 Latricia Pettit PA-C [address] [place], [place] [address] Assigned Gastroenterology Provider 10/15/23 Abhishek Acevedo PA-C [address] [id number] Assigned Neuroscience Provider 11/05/24 documented as of this encounter
--- OUTSIDE RECORDS SUMMARY | 2024-12-11 12:13 | XMS_ITS | Encounter Summary ---
Author Organization [facility] Address [address] [place] [address]. [place] [address] Care Team Providers Care Overlock Sleeve Setter Name Role Phone Alfonso Tang Primary Care Provider Unavailabl Monty Olvera MD Primary Care Provider Alfonso Tang Unavailable Unavailable Dayanara Bee MD Unavailable [phone] Min Lange MD Unavailable Unavailable Marlo Madsen MD Unavailable [phone] Mel Buckley RN Unavailable [phone] Douglas Cadet MD Unavailable [phone] Rosalba Pendleton APRN PURIFICATION OPERATOR HELPER Unavaila ble Rosalba Pendleton APRN PURIFICATION OPERATOR HELPER Unavaila ble Douglas Cadet MD Unavailable [phone] Marlo Madsen MD Unavailable [phone] Abby Vasquez MD Unavailable Abby Vasquez MD Unavailable Airam Hodges PA-C Unavailable [phone] Zain Quintana MD Unavailable [phone] Latricia Pettit PA-C Unavailable [phone] Torri Francois MD Unavailable Abhishek Acevedo PA-C Unavailable [phone] Encounter Details Date Type Department Care Team (Late st Contact Info) Description 07/30/2015 [facility] Medical Advice Medicine GI - 1E [facility] 1st Floor, Clinic 1E [address] [place] [phone] Ama Bustamante RN Social History Tobacco Use Types Packs/Day Years Used Date Smoking Tobacco: Never Smokeless Tobacco: Never Alcohol Use Standard Drinks/Week Comments No 0 (1 standard drink = 0.6 oz pur e alcohol) Comments No Sex and Gender Information Value Date Recorded Sex Assigned at Female 10/31/2021 7:59 AM REGULATORY COMPLIANCE SPECIALIST Legal Sex Female 10:14 AM REGULATORY COMPLIANCE SPECIALIST Gender Identity Female 10/31/2021 7:59 AM REGULATORY COMPLIANCE SPECIALIST Sexual Orientation Straight 10/31/2021 7: 59 AM REGULATORY COMPLIANCE SPECIALIST documented as of this encounter Plan of Treatment Upcoming Encounters Date Type Department Care Team (Late st Contact Info) Description 01/11/2025 9:00 AM CDT Virtual Visit [facility] [address] 3rd [place] [phone] Rosalba Pendleton, MAXIMILIANO [address] [id number] [place] [address] 05/01/2025 10:00 AM CDT Office Visit [facility] [place] [id number] [phone] Abhishek Acevedo PA-C [address] [id number] 05/23/2025 10:40 AM CDT Virtual Visit [facility] [place] [address] [place] [address] 4th [place] [phone] bAby Vasquez MD 909 [place] [address] documented as of this encounter Visit Diagnoses Not on filedocumented in this encounter Additional Health Concerns Infection Onset Date Last Indicated Resolved Time Rule Out COVID-19 04/03/2023 04/03/2023 04/04/2023 6:30 PM CDT documented as of this encounter Care Teams Overlock Sleeve Setter Relationship Specialty Start Date End Date Alfonso Tang PCP - General Family Practice 09/04/13 08/12/21 Monty Musa MD PCP - General Family Medicine 08/13/21 Alfonso Tang Family Practice 08/13/21 Dayanara Bee MD [address] 080985 Pediatrics 12/26/14 Min Lange MD [address] [address] Neurology 03/30/16 Marlo Madsen MD [address] [address] Cardiology 10/27/16 Mel Buckley, RN Nurse Coordinator Physical Medicine and Rehabilitation 12/02/16 Douglas Cadet MD Gastroenterology 08/13/21 Rosalba Pendleton APRN PURIFICATION OPERATOR HELPER [address] [place], [place] [id number] [place] [address] Nurse Practitioner Neurology 09/05/21 Rosalba Pendleton APRN PURIFICATION OPERATOR HELPER [address] [place] [address] [id number] [place] [address] Assigned Neuroscience Provider 11/09/21 10/04/24 Douglas Cadet MD Assigned Gastroenterology Provider 03/14/22 09/03/23 Marlo Madsen MD [address] [place] [address] 75 [place] [address] Assigned Heart and Vascular Provider 03/14/22 Abby Vasquez MD [address] [place] [address] Gastroenterology 07/16/22 Abby Vasquez MD [address] [place] [address] Assigned PCP 09/26/22 10/06/23 Airam Hodges PA-C [address] [place] [address] 750805 Physician Calculator Operator Surgery 07/19/23 Zain Quintana MD [address] [place] [address] 346025 Assigned Surgical Provider 10/07/23 Latricia Pettit PA-C [address] [place] [address] 300635 Assigned Gastroenterology Provider 10/15/23 Torri Francois MD [address] [place] [address] 009325 Assigned Neuroscience Provider 10/05/24 11/04/24 Abhishek Acevedo PA-C [address] [place] [address] [place] [address] Assigned Neuroscience Provider 11/05/24 documented as of this encounter
--- OUTSIDE RECORDS SUMMARY | 2024-12-11 12:13 | XMS_ITS | Encounter Summary ---
Author Organization [facility] Address [address] [place] [address]. [place] [address] Care Team Providers Care Leather Currier Name Role Phone Monty Musa MD Primary Care Provider [phone] Alfonso Tang Unavailable Unavailable Dayanara Bee MD Unavailable [phone] Min Lange MD Unavailable Unavailable Marlo Madsen MD Unavailable [phone] Mel Buckley RN Unavailable [phone] Douglas Cadet MD Unavailable Roaslba Pendleton APRN SERVICE PLANNER Unavaila ble Marlo Madsen MD Unavailable [phone] Abby Vasquez MD Unavailable Airam Hodges PA-C Unavailable [phone] Zain Quintana MD Unavailable [phone] Latricia Pettit PA-C Unavailable [phone] Abhishek Acevedo PA-C Unavailable [phone] Encounter Details Date Type Department Care Team (Latest Contact Info) Description 11/15/2024 Travel Social History Tobacco Use Types Packs/Day [...] in an abandoned building, in an overnight correction, or couch-surfing.) Yes 05/31/2024 Are you worried [...] Assigned at Female 10/31/2021 7:59 AM MOBILE PRACTICE LEAD Legal Sex Female 10:14 AM MOBILE PRACTICE LEAD Gender Identity Female 10/31/2021 7:59 AM MOBILE PRACTICE LEAD Sexual Orientation Straight 10/31/2021 7: 59 AM MOBILE PRACTICE LEAD documented as of this encounter Plan of Treatment Upcoming Encounters Date Type Department Care Team (Late st Contact Info) Description 01/11/2025 9:00 AM CDT Virtual Visit [address] 3rd [place] [phone] Rosalba Pendleton, MAXIMILIANO SERVICE PLANNER [address] [place] [address] [id number] [place], [place] 521925 05/01/2025 10:00 AM CDT Office Visit [facility] [place] [address] [facility] [address] [place] [phone] Abhishek Acevedo PA-C [address] [place] [address] [place], [place] [id number] 05/23/2025 10:40 AM CDT Virtual Visit [facility] [address] 4th [place] [phone] Abby Vasquez MD [address] [place] [address] 451445 documented as of this encounter Visit Diagnoses Not on filedocumented in this encounter Additional Health Concerns Assessment Noted Time PHQ-9 Depression Total Score: 12 024 12:52 PM MOBILE PRACTICE LEAD documented as of this encounter Care Teams Leather Currier Relationship Specialty Start Date End Date Monty Musa MD PCP - General Family Medicine 08/13/21 Alfonso Tang Family Practice 08/13/21 Dayanara Bee MD [address] [place] [address] 172205 Pediatrics 12/26/14 Min Lange MD [address] [place] [address] [facility] 75 [place] [address] Neurology 03/30/16 Marlo Madsen MD [address] [place] [address] [address] Cardiology 10/27/16 Mel Buckley, RN Nurse Coordinator Physical Medicine and Rehabilitation 12/02/16 Douglas Cadet MD Gastroenterology 08/13/21 Rosalba Pendleton APRN SERVICE PLANNER [address] [place] [address] [id number] [place] [address] Nurse Practitioner Neurology 09/05/21 Marlo Madsen MD [address] [place] [address] 75 [place] [address] Assigned Heart and Vascular Provider 03/14/22 Abby Vasquez MD [address] [place] [address] Gastroenterology 07/16/22 Airam Hodges PA-C 500 [place], [place] 739465 Physician Fpga Design Engineer Surgery 07/19/23 Zain Quintana MD [address] [place] [address] 133125 Assigned Surgical Provider 10/07/23 Latricia Pettit PA-C [address] [place] [address] 900015 Assigned Gastroenterology Provider 10/15/23 Abhishek Acevedo PA-C [address] [address] Assigned Neuroscience Provider 11/05/24 documented as of this encounter
--- OUTSIDE RECORDS SUMMARY | 2024-12-11 12:13 | XMS_ITS | Encounter Summary ---
Author Organization [facility] Address [address] [place] [address]. [place] [address] Care Team Providers Care Steel Melter Name Role Phone Monty Musa MD Primary Care Provider [phone] Alfonso Tang Unavailable Unavailable Dayanara Bee MD Unavailable [phone] Min Lange MD Unavailable Unavailable Marlo Madsen MD Unavailable [phone] Mel Buckley RN Unavailable [phone] Douglas Cadet MD Unavailable [phone] Rosalba Pendleton SENIOR TALENT ACQUISITION SPECIALIST PACKING MACHINE PILOT CAN ROUTER Unavaila ble Rosalba Pendleton APRN PACKING MACHINE PILOT CAN ROUTER Unavaila ble Marlo Madsen MD Unavailable [phone] Abby Vasquez MD Unavailable Airam Hodges PA-C Unavailable [phone] Zain Quintana MD Unavailable [phone] Latricia Pettit PA-C Unavailable [phone] Torri Francois MD Unavailable [phone] Abhishek Acevedo PA-C Unavailable [phone] Encounter Details Date Type Department Care Team (Late st Contact Info) Description 09/15/2024 MyC Medical Advice [facility] 909 [place] [address] Dandre Fuentes, 420 [place] [address] Social History Tobacco Use Types Packs/Day Years Used Date Smoking Tobacco: Never Smokeless Tobacco: Never Alcohol Use Standard Drinks/Week Comments No 0 (1 standard drink = 0.6 oz pur e alcohol) PHQ-2 Answer Date Recorded PHQ-2 Score 2 07/06/2024 Adolescent Education Answer Date Record ed Getting [...] Sex Assigned at Female 10/31/2021 7:59 AM BLOWING ENGINEER Legal Sex Female 10:14 AM BLOWING ENGINEER Gender Identity Female 10/31/2021 7:59 AM BLOWING ENGINEER Sexual Orientation Straight 10/31/2021 7: 59 AM BLOWING ENGINEER documented as of this encounter Plan of Treatment Upcoming Encounters Date Type Department Care Team (Late st Contact Info) Description 01/11/2025 9:00 AM CDT Virtual Visit [facility] [address] 3rd [place] [phone] Rosalba Pendleton, SENIOR TALENT ACQUISITION SPECIALIST PACKING MACHINE PILOT CAN ROUTER [address] [place] [address] [id number] [place], [place] 169[address] 05/01/2025 10:00 AM CDT Office Visit [facility] [place] [address] [phone] Abhishek Acevedo PA-C 6363 [facility] 103 [place], [place] [id number] 05/23/2025 10:40 AM CDT Virtual Visit [facility] [address] 4th [place] [phone] Abby Vasquez MD [address] [place] [address] 955305 documented as of this encounter Visit Diagnoses Not on filedocumented in this encounter Additional Health Concerns Assessment Noted Time PHQ-9 Depression Total Score: 12 024 12:52 PM BLOWING ENGINEER documented as of this encounter Care Teams Steel Melter Relationship Specialty Start Date End Date Monty Musa MD PCP - General Family Medicine 08/13/21 Alfonso Tang Family Practice 08/13/21 Dayanara Bee MD [address] [address] Pediatrics 12/26/14 Min Lange MD [address] [address] Neurology 03/30/16 Marlo Madsen MD [address] [place] [address] Cardiology 10/27/16 Mel Buckley, RN Nurse Coordinator Physical Medicine and Rehabilitation 12/02/16 Douglas Cadet MD Gastroenterology 08/13/21 Rosalba Pendleton APRN PACKING MACHINE PILOT CAN ROUTER [address] [place] [address] Nurse Practitioner Neurology 09/05/21 Rosalba Pendleton APRN PACKING MACHINE PILOT CAN ROUTER [address] [place] [address] Assigned Neuroscience Provider 11/09/21 10/04/24 Marlo Madsen MD [address] [place] [address] Assigned Heart and Vascular Provider 03/14/22 Abby Vasquez MD [address] [place] [address] Gastroenterology 07/16/22 Airam Hodges PA-C [address] [place] [address] 715905 Physician Rockboard Lather Surgery 07/19/23 Zain Quintana MD 500 [place], [place] 498225 Assigned Surgical Provider 10/07/23 Latricia Pettit PA-C [address] [place] [address] 816145 Assigned Gastroenterology Provider 10/15/23 Torri Francois MD [address] [place] [address] 594955 Assigned Neuroscience Provider 10/05/24 11/04/24 Abhishek Acevedo PA-C [address] [id number] Assigned Neuroscience Provider 11/05/24 documented as of this encounter
--- OUTSIDE RECORDS SUMMARY | 2024-12-11 12:14 | XMS_ITS | Encounter Summary ---
Author Organization [facility] Address [address] [place] [address]. [place] [address] Care Team Providers Care Retail Service Representative Name Role Phone Monty Musa MD Primary Care Provider [phone] Alfonso Tang Unavailable Unavailable Dayanara Bee MD Unavailable [phone] Min Lange MD Unavailable Unavailable BendMarlo molina MD Unavailable [phone] Mel Buckley RN Unavailable [phone] Douglas Cadet MD Unavailable [phone] Rosalba Pendleton CALL CENTER ASSISTANT SERVICE CENTER SPECIALIST Unavaila ble Rosalba Pendleton APRN SERVICE CENTER SPECIALIST Unavaila ble Douglas Cadet MD Unavailable [phone] Marlo Madsen MD Unavailable [phone] Abby Vasquez MD Unavailable Abby Vasquez MD Unavailable Airam Hodges PA-C Unavailable [phone] Zain Quintana MD Unavailable [phone] Latricia Pettit PA-C Unavailable [phone] Torri Francois MD Unavailable [phone] Abhishek Acevedo PA-C Unavailable [phone] Encounter Details Date Type Department Care Team (Late Contact Info) Description 08/03/2022 MyC Medical Advice [facility] [address] [place] [phone] Stephani Wheatley MA Social History Tobacco Use Types Packs/Day Years Used Date Smoking Tobacco: Never Smokeless Tobacco: Never Alcohol Use Standard Drinks/Week Comments No 0 (1 standard drink = 0.6 oz pur e alcohol) PHQ-2 Answer Date Recorded PHQ-2 Score 3 05/28/2022 Comments No Sex and Gender Information Value Date Recorded Sex Assigned at Female 10/31/2021 7:59 AM HR SPECIALIST Legal Sex Female 10:14 AM HR SPECIALIST Gender Identity Female 10/31/2021 7:59 AM HR SPECIALIST Sexual Orientation Straight 10/31/2021 7: 59 AM HR SPECIALIST COVID-19 Exposure Response Date Recorded In the last 10 days, have jan u been in contact with someone who was confirmed or suspected to have Coronavirus/COVID-19? No / Unsure 07/14/2022 9:15 PM CDT documented as of this encounter Plan of Treatment Upcoming Encounters Date Type Department Care Team (Late Contact Info) Description 01/11/2025 9:00 AM CDT Virtual Visit [facility] [address]rd [place] [phone] Rosalba Pendleton APRN [address] [id number] [place] [address] 05/01/2025 10:00 AM CDT Office Visit [facility] [place] [address] [place] [phone] Abhishek Acevedo PA-C 0584 [facility] 103 [place], [place] [id number] 05/23/2025 10:40 AM CDT Virtual Visit [facility] [address] 4th [place] [address] Abby Vasquez MD [address] [place] [address] documented as of this encounter Visit Diagnoses Not on filedocumented in this encounter Additional Health Concerns Infection Onset Date Last Indicated Resolved Time Rule Out COVID-19 04/03/2023 04/03/2023 04/04/2023 6:30 PM CDT Assessment Noted Time PHQ-9 Depression Total Score: 11 022 11:52 AM CDT documented as of this encounter Care Teams Retail Service Representative Relationship Specialty Start Date End Date Monty Musa MD PCP - General Family Medicine 08/13/21 Alfonso Tang Family Practice 08/13/21 Dayanara Bee MD [address] 413905 Pediatrics 12/26/14 Min Lange MD [address] [address] Neurology 03/30/16 Marlo Madsen MD [address] [address] Cardiology 10/27/16 Mel Buckley, RN Nurse Coordinator Physical Medicine and Rehabilitation 12/02/16 Douglas Cadet MD Gastroenterology 08/13/21 Rosalba Pendleton, CALL CENTER ASSISTANT SERVICE CENTER SPECIALIST [address] [place] [address] [id number] [place], [place] 463495 Nurse Practitioner Neurology 09/05/21 Rosalba Pendleton APRN SERVICE CENTER SPECIALIST [address] [place] [address] [id number] [place] [address] Assigned Neuroscience Provider 11/09/21 10/04/24 Douglas Cadet MD Assigned Gastroenterology Provider 03/14/22 09/03/23 Marlo Madsen MD [address] [place] [address] 75 [place], [place] 942195 Assigned Heart and Vascular Provider 03/14/22 Abby Vasquez MD [address] [place] [address] 824235 Gastroenterology 07/16/22 Abby Vasquez MD [address] [place] [address] 053425 Assigned PCP 09/26/22 10/06/23 Airam Hodges PA-C 500 [place], [place] 247735 Physician Leadership Development Instructor Surgery 07/19/23 Zain Quintana MD 500 [place] [address] Assigned Surgical Provider 10/07/23 Latricia Pettit PA-C [address] [place] [address] Assigned Gastroenterology Provider 10/15/23 Torri Francois MD [address] [place] [address] Assigned Neuroscience Provider 10/05/24 11/04/24 Abhishek Acevedo PA-C [address] [address] Assigned Neuroscience Provider 11/05/24 documented as of this encounter
--- OUTSIDE RECORDS SUMMARY | 2024-12-11 12:14 | XMS_ITS | Encounter Summary ---
Author Organization [facility] Address [address] [place] [address]. [place] [address] Care Team Providers Care Specification Writer Name Role Phone Monty Musa MD Primary Care Provider [phone] Alfonso Tang Unavailable Unavailable Dayanara Bee MD Unavailable [phone] Min Lange MD Unavailable Unavailable BendMarlo molina MD Unavailable [phone] Mel Buckley RN Unavailable [phone] Douglas Cadet MD Unavailable [phone] Rosalba Pendleton OUTSIDE CUTTER HAND RESIDENTIAL PROGRAM DIRECTOR Unavaila ble Rosalba Pendleton APRN RESIDENTIAL PROGRAM DIRECTOR Unavaila ble Douglas Cadet MD Unavailable [phone] Marlo Madsen MD Unavailable [phone] Abby Vasquez MD Unavailable Abby Vasquez MD Unavailable Airam Hodges PA-C Unavailable [phone] Zain Quintana MD Unavailable [phone] Latricia Pettit PA-C Unavailable [phone] Torri Francois MD Unavailable Abhishek Acevedo PA-C Unavailable [phone] Encounter Details Date Type Department Care Team (Late st Contact Info) Description 11/03/2022 MyC Medical Advice [facility] [address] [place] [phone] Cierra Perez RN Social History Tobacco Use Types Packs/Day Years Used Date Smoking Tobacco: Never Smokeless Tobacco: Never Alcohol Use Standard Drinks/Week Comments No 0 (1 standard drink = 0.6 oz pur e alcohol) PHQ-2 Answer Date Recorded PHQ-2 Score 3 05/28/2022 Comments No Sex and Gender Information Value Date Recorded Sex Assigned at Female 10/31/2021 7:59 AM SALVATION ARMY OFFICER Legal Sex Female 10:14 AM SAL[employer]ATION ARMY OFFICER Gender Identity Female 10/31/2021 7:59 AM SAL[employer]ATION AR[employer] OFFICER Sexual Orientation Straight 10/31/2021 7: 59 AM SALVATION ARMY OFFICER documented as of this encounter Plan of Treatment Upcoming Encounters Date Type Department Care Team (Late st Contact Info) Description 01/11/2025 9:00 AM CDT Virtual Visit [facility] [address] [place] [phone] Rosalba Pendleton, MAXIMILIANO [address] [id number] [place] [address] 05/01/2025 10:00 AM CDT Office Visit [facility] [place] [id number] [address] [phone] Abhishek Acevedo PA-C 7811 [facility] 103 [place], [place] [id number] 05/23/2025 10:40 AM CDT Virtual Visit [facility] [address] [place] [phone] Abby Vasquez MD [address] [place] [address] documented as of this encounter Visit Diagnoses Not on filedocumented in this encounter Additional Health Concerns Infection Onset Date Last Indicated Resolved Time Rule Out COVID-19 04/03/2023 04/03/2023 04/04/2023 6:30 PM CDT Assessment Noted Time PHQ-9 Depression Total Score: 11 022 11:52 AM CDT documented as of this encounter Care Teams Specification Writer Relationship Specialty Start Date End Date Monty Musa MD PCP - General Family Medicine 08/13/21 Alfonso Tang Family Practice 08/13/21 Dayanara Bee MD [address] [address] Pediatrics 12/26/14 Min Lange MD [address] [address] Neurology 03/30/16 Marlo Madsen MD [address] [place] [address] Cardiology 10/27/16 Mel Buckley, RN Nurse Coordinator Physical Medicine and Rehabilitation 12/02/16 Douglas Cadet MD Gastroenterology 08/13/21 Rosalba Pendleton APRN RESIDENTIAL PROGRAM DIRECTOR [address] [place] [address] Nurse Practitioner Neurology 09/05/21 Rosalba Pendleton APRN RESIDENTIAL PROGRAM DIRECTOR [address] [place] [address] Assigned Neuroscience Provider 11/09/21 10/04/24 Douglas Cadet MD Assigned Gastroenterology Provider 03/14/22 09/03/23 Marlo Madsen MD [address] [place] [address] 883105 Assigned Heart and Vascular Provider 03/14/22 Abby Vasquez MD [address] [place] [address] 511715 Gastroenterology 07/16/22 Abby Vasquez MD [address] [place] [address] 397775 Assigned PCP 09/26/22 10/06/23 Airam Hodges PA-C 500 [place], [place] 795155 Physician Overage Shortage And Damage Clerk Surgery 07/19/23 Zain Quintana MD [address] [place] [address] 854175 Assigned Surgical Provider 10/07/23 Latricia Pettit PA-C [address] [place] [address] 480155 Assigned Gastroenterology Provider 10/15/23 Torri Francois MD [address] [place] [address] Assigned Neuroscience Provider 10/05/24 11/04/24 Abhishek Acevedo PA-C [address] [facility] 103 [place] [address] Assigned Neuroscience Provider 11/05/24 documented as of this encounter
--- OUTSIDE RECORDS SUMMARY | 2024-12-11 12:14 | XMS_ITS | Encounter Summary ---
Author Organization [facility] Address [address] [place] [address]. [place] [address] Care Team Providers Care Buffer Machine Name Role Phone Monty Musa MD Primary Care Provider [phone] Alfonso Tang Unavailable Unavailable Dayanara Bee MD Unavailable [phone] Min Lange MD Unavailable Unavailable Marlo Madsen MD Unavailable [phone] Mel Buckley RN Unavailable [phone] Douglas Cadet MD Unavailable Rosalba Pendleton STUMP SHOOTER CLOUD SOFTWARE ENGINEER Unavaila ble Rosalba Pendleton APRN CLOUD SOFTWARE ENGINEER Unavaila ble Marlo Madsen MD Unavailable [phone] Abby Vasquez MD Unavailable Airam Hodges PA-C Unavailable [phone] Zain Quintana MD Unavailable [phone] Latricia Pettit PA-C Unavailable [phone] Torri Francois MD Unavailable [phone] Abhishek Acevedo PA-C Unavailable [phone] Encounter Details Date Type Department Care Team (Late st Contact Info) Description 11/17/2023 MyC Medical Advice [facility] Gastroenterology Clinic [address] [place] [phone] Abby Vasquez MD [address] [place] [address] Social History Tobacco Use Types Packs/Day Years [...] Sex Assigned at Female 10/31/2021 7:59 AM POWERHOUSE HELPER Legal Sex Female 10:14 AM POWERHOUSE HELPER Gender Identity Female 10/31/2021 7:59 AM POWERHOUSE HELPER Sexual Orientation Straight 10/31/2021 7: 59 AM POWERHOUSE HELPER documented as of this encounter Plan of Treatment Upcoming Encounters Date Type Department Care Team (Late st Contact Info) Description 01/11/2025 9:00 AM CDT Virtual Visit [facility] Neurology Clinic [address] [place] [phone] Rosalba Pendleton, MAXIMILIANO [address] [id number] [place] [address] 05/01/2025 10:00 AM CDT Office Visit [facility] Sleep Centers [place] [id number] [address] [address] Abhishek Acevedo PA-C 1174 [facility] 103 [place], [place] [id number] 05/23/2025 10:40 AM CDT Virtual Visit [facility] Gastroenterology [facility] [address] [place] [address] Abby Vasquez MD 909 [place] [address] documented as of this encounter Visit Diagnoses Not on filedocumented in this encounter Additional Health Concerns Assessment Noted Time PHQ-9 Depression Total Score: 12 024 12:52 PM POWERHOUSE HELPER documented as of this encounter Care Teams Buffer Machine Relationship Specialty Start Date End Date Monty Musa MD PCP - General Family Medicine 08/13/21 Alfonso Tang Family Practice 08/13/21 Dayanara Bee MD [address] [place] [address] 39132 Pediatrics 12/26/14 Min Lange MD [address] [place] [address] 23082 Neurology 03/30/16 Marlo Madsen MD [address] [place] [address] 233645 Cardiology 10/27/16 Mel Buckley, RN Nurse Coordinator Physical Medicine and Rehabilitation 12/02/16 Douglas Cadet MD Gastroenterology 08/13/21 Rosalba Pendleton APRN CLOUD SOFTWARE ENGINEER [address] [place] [address] 114955 Nurse Practitioner Neurology 09/05/21 Rosalba Pendleton APRN CLOUD SOFTWARE ENGINEER [address] [place] [address] 562365 Assigned Neuroscience Provider 11/09/21 10/04/24 Marlo Madsen MD [address] 207025 Assigned Heart and Vascular Provider 03/14/22 Abby Vasquez MD [address] [place] [address] 583765 Gastroenterology 07/16/22 Airam Hodges PA-C 500 [place], [place] 645695 Physician Owner Operator Surgery 07/19/23 Zain Quintana MD [address] [place] [address] [id number] Assigned Surgical Provider 10/07/23 Latricia Pettit PA-C [address] [place] [address] 903275 Assigned Gastroenterology Provider 10/15/23 Torri Francois MD [address] [place] [address] 612715 Assigned Neuroscience Provider 10/05/24 11/04/24 Abhishek Acevedo PA-C [address] [address] Assigned Neuroscience Provider 11/05/24 documented as of this encounter
--- OUTSIDE RECORDS SUMMARY | 2024-12-11 12:14 | XMS_ITS | Encounter Summary ---
Author Organization [facility] Address [address] [place] [address]. [place] [address] Care Team Providers Care Locket Maker Name Role Phone Monty Musa MD Primary Care Provider [phone] Alfonso Tang Unavailable Unavailable Dayanara Bee MD Unavailable [phone] Min Lange MD Unavailable Unavailable BendMarlo molina MD Unavailable [phone] Mel Buckley RN Unavailable [phone] Douglas Cadet MD Unavailable [phone] Rosalba Pendleton EVALUATION MANAGER TEST DEVELOPER Unavaila ble Rosalba Pendleton APRN TEST DEVELOPER Unavaila ble Douglas Cadet MD Unavailable [phone] Marlo Madsen MD Unavailable [phone] Abby Vasquez MD Unavailable Abby Vasquez MD Unavailable Airam Hodges PA-C Unavailable [phone] Zain Quintana MD Unavailable [phone] Latricia Pettit PA-C Unavailable [phone] Torri Francois MD Unavailable Abhishek Acevedo PA-C Unavailable [phone] Encounter Details Date Type Department Care Team (Late Contact Info) Description 03/17/2022 MyC Medical Advice [facility] Heart Clinic [address] [phone] Virginia Rendon, RN [address] [place] [address] [id number] Social History Tobacco Use Types Packs/Day Years Used Date Smoking Tobacco: Never Smokeless Tobacco: Never Alcohol Use Standard Drinks/Week Comments No 0 (1 standard drink = 0.6 oz pur e alcohol) PHQ-2 Answer Date Recorded PHQ-2 Score 4 01/14/2022 Comments No Sex and Gender Information Value Date Recorded Sex Assigned at Female 10/31/2021 7:59 AM DERMATOLOGICAL SURGEON Legal Sex Female 10:14 AM DERMATOLOGICAL SURGEON Gender Identity Female 10/31/2021 7:59 AM DERMATOLOGICAL SURGEON Sexual Orientation Straight 10/31/2021 7: 59 AM DERMATOLOGICAL SURGEON COVID-19 Exposure Response Date Recorded In the last 10 days, have yo u been in contact with someone who was confirmed or suspected to have Coronavirus/COVID-19? No / Unsure 03/18/2022 8:57 AM CDT documented as of this encounter Plan of Treatment Upcoming Encounters Date Type Department Care Team (Late Contact Info) Description 01/11/2025 9:00 AM CDT Virtual Visit [facility] Neurology Clinic [address] 3rd [place] [phone] Rosalba Pendleton, MAXIMILIANO [address] [id number] [place], [place] [address] 05/01/2025 10:00 AM CDT Office Visit [facility] Sleep Centers [place] 6126 [facility] 103 [place] [address] Abhishek Acevedo PA-C 2914 [facility] 103 [place] [address] 05/23/2025 10:40 AM CDT Virtual Visit [facility] Gastroenterology Clinic [address]th [place] [address] Abby Vasquez MD [address] [place] [address] 648515 documented as of this encounter Visit Diagnoses Not on filedocumented in this encounter Additional Health Concerns Infection Onset Date Last Indicated Resolved Time Rule Out COVID-19 04/03/2023 04/03/2023 04/04/2023 6:30 PM CDT Assessment Noted Time PHQ-9 Depression Total Score: 17 022 7:02 AM CDT documented as of this encounter Care Teams Locket Maker Relationship Specialty Start Date End Date Monty Musa MD PCP - General Family Medicine 08/13/21 Alfonso Tang Family Practice 08/13/21 Dayanara Bee MD [address] [place] [address] 967745 Pediatrics 12/26/14 Min Lange MD [address] [address] Neurology 03/30/16 Marlo Madsen MD [address] 508135 Cardiology 10/27/16 Mel Buckley, RN Nurse Coordinator Physical Medicine and Rehabilitation 12/02/16 Douglas Cadet MD Gastroenterology 08/13/21 Rosalba Pendleton APRN TEST DEVELOPER [address] [place] [id number] [address] Nurse Practitioner Neurology 09/05/21 Rosalba Pendleton APRN CNP [address] [place] [address] Assigned Neuroscience Provider 11/09/21 10/04/24 Douglas Cadet MD Assigned Gastroenterology Provider 03/14/22 09/03/23 Marlo Madsen MD [address] [place] [address] 75 [place] [address] Assigned Heart and Vascular Provider 03/14/22 Abby Vasquez MD [address] [place] [address] Gastroenterology 07/16/22 Abby Vasquez MD [address] [place] [address] 92661 Assigned PCP 09/26/22 10/06/23 Airam Hodges PA-C [address] [place] [address] Physician Priming Mixture Carrier Surgery 07/19/23 Zain Quintana MD [address] [place] [address] 004155 Assigned Surgical Provider 10/07/23 Latricia Pettit PA-C [address] [place] [address] 81952 Assigned Gastroenterology Provider 10/15/23 Torri Francois MD [address] [place] [address] Assigned Neuroscience Provider 10/05/24 11/04/24 Abhishek Acevedo PA-C [address] [address] Assigned Neuroscience Provider 11/05/24 documented as of this encounter
--- OUTSIDE RECORDS SUMMARY | 2024-12-11 12:14 | XMS_ITS | Encounter Summary ---
Author Organization [facility] Address [address] [place] [address]. [place] [address] Care Team Providers Care Gelatin Dynamite Packing Operator Name Role Phone Monty Musa MD Primary Care Provider [phone] Alfonso Tang Unavailable Unavailable Dayanara Bee MD Unavailable [phone] Min Lange MD Unavailable Unavailable BendMarlo molina MD Unavailable [phone] Mel Buckley RN Unavailable [phone] Douglas Cadet MD Unavailable [phone] Rosalba Pendleton NET SQL DEVELOPER DIRECTOR OF PARKS AND RECREATION Unavaila ble Rosalba Pendleton APRN DIRECTOR OF PARKS AND RECREATION Unavaila ble Douglas Cadet MD Unavailable [phone] Marlo Madsen MD Unavailable [phone] Abby Vasquez MD Unavailable Abby Vasquez MD Unavailable Airam Hodges PA-C Unavailable [phone] Zain Quintana MD Unavailable [phone] Latricia Pettit PA-C Unavailable [phone] Torri Francois MD Unavailable Abhishek Acevedo PA-C Unavailable Encounter Details Date Type Department Care Team (Late Contact Info) Description 07/10/2023 MyC Medical Advice [facility] Gastroenterology Clinic [address] [place] [phone] Abby Vasquez MD [address] [place] [address] 774265 Social History Tobacco Use Types Packs/Day Years [...] Sex Assigned at Female 10/31/2021 7:59 AM CHEMICAL OPERATIONS SPECIALIST Legal Sex Female 10:14 AM CHEMICAL OPERATIONS SPECIALIST Gender Identity Female 10/31/2021 7:59 AM CHEMICAL OPERATIONS SPECIALIST Sexual Orientation Straight 10/31/2021 7: 59 AM CHEMICAL OPERATIONS SPECIALIST documented as of this encounter Plan of Treatment Upcoming Encounters Date Type Department Care Team (Late st Contact Info) Description 01/11/2025 9:00 AM CDT Virtual Visit [facility] Neurology Clinic [address] 3rd [place] [phone] Rosalba Pendleton, MAXIMILIANO [address] [id number] [place] [address] 05/01/2025 10:00 AM CDT Office Visit [facility] Sleep Centers [place] [phone] [address] [address] Abhishek Acevedo PA-C 6253 [facility] 103 [place], [place] [id number] 05/23/2025 10:40 AM CDT Virtual Visit [facility] Gastroenterology Clinic [place] [address] [place] [address] 4th [place] [phone] Abby Vasquez MD [address] [place] [address] documented as of this encounter Visit Diagnoses Not on filedocumented in this encounter Additional Health Concerns Assessment Noted Time PHQ-9 Depression Total Score: 11 022 11:52 AM CDT documented as of this encounter Care Teams Gelatin Dynamite Packing Operator Relationship Specialty Start Date End Date Monty Musa MD PCP - General Family Medicine 08/13/21 Alfonso Tang Family Practice 08/13/21 Dayanara Bee MD [address] 743705 Pediatrics 12/26/14 Min Lange MD [address] [address] Neurology 03/30/16 Marlo Madsen MD [address] [address] Cardiology 10/27/16 Mel Buckley, RN Nurse Coordinator Physical Medicine and Rehabilitation 12/02/16 Douglas Cadet MD Gastroenterology 08/13/21 Rosalba Pendleton APRN DIRECTOR OF PARKS AND RECREATION [address] [place] [address] [address] Nurse Practitioner Neurology 09/05/21 Rosalba Pendleton APRN DIRECTOR OF PARKS AND RECREATION [address] [place] [address] [id number] [place], [place] 862175 Assigned Neuroscience Provider 11/09/21 10/04/24 Douglas Cadet MD Assigned Gastroenterology Provider 03/14/22 09/03/23 Marlo Madsen MD [address] [place] [address] 75 [place], [place] 978705 Assigned Heart and Vascular Provider 03/14/22 Abby Vasquez MD [address] [place] [address] [id number] MD Gastroenterology 07/16/22 Abby Vasquez MD [address] [place] [address] 555615 Assigned PCP 09/26/22 10/06/23 Airam Hodges PA-C [address] [place] [address] 140505 Physician Shoe Repairer Apprentice Surgery 07/19/23 Zain Quintana MD [address] [place] [address] 088445 Assigned Surgical Provider 10/07/23 Latricia Pettit PA-C [address] [place] [address] 053725 Assigned Gastroenterology Provider 10/15/23 Torri Francois MD [address] [place] [address] 973465 Assigned Neuroscience Provider 10/05/24 2 Abhishek Acevedo PA-C [address] [place] [address] [place] [address] Assigned Neuroscience Provider 11/05/24 documented as of this encounter
--- OUTSIDE RECORDS SUMMARY | 2024-12-11 12:14 | XMS_ITS | Encounter Summary ---
Author Organization [facility] Address [address] [place] [address]. [place] [address] Care Team Providers Care Blood Bank Calendar Control Clerk Name Role Phone Monty Musa MD Primary Care Provider [phone] Alfonso Tang Unavailable Unavailable Dayanara Bee MD Unavailable [phone] Min Lange MD Unavailable Unavailable BendMarlo molina MD Unavailable [phone] Mel Buckley RN Unavailable [phone] Douglas Cadet MD Unavailable [phone] Rosalba Pendleton COLOR REPAIRER MINE INSPECTOR FEDERAL Unavaila ble Rosalba Pendleton APRN MINE INSPECTOR FEDERAL Unavaila ble Douglas Cadet MD Unavailable [phone] Marlo Madsen MD Unavailable [phone] Abby Vasquez MD Unavailable Abby Vasquez MD Unavailable Airam Hodges PA-C Unavailable [phone] Zain Quintana MD Unavailable [phone] Latricia Pettit PA-C Unavailable [phone] Torri Francois MD Unavailable [phone] Abhishek Acevedo PA-C Unavailable [phone] Encounter Details Date Type Department Care Team (Late st Contact Info) Description 02/20/2022 MyC Medical Advice [facility] Gastroenterology Clinic [address]th [place] [phone] Cindy Vines CMA Social History Tobacco Use Types Packs/Day Years Used Date Smoking Tobacco: Never Smokeless Tobacco: Never Alcohol Use Standard Drinks/Week Comments No 0 (1 standard drink = 0.6 oz pur e alcohol) PHQ-2 Answer Date Recorded PHQ-2 Score 4 01/14/2022 Comments No Sex and Gender Information Value Date Recorded Sex Assigned at Female 10/31/2021 7:59 AM NETWORK SECURITY ARCHITECT Legal Sex Female 10:14 AM NETWORK SECURITY ARCHITECT Gender Identity Female 10/31/2021 7:59 AM NETWORK SECURITY ARCHITECT Sexual Orientation Straight 10/31/2021 7: 59 AM NETWORK SECURITY ARCHITECT documented as of this encounter Plan of Treatment Upcoming Encounters Date Type Department Care Team (Late st Contact Info) Description 01/11/2025 9:00 AM CDT Virtual Visit [facility] Neurology Clinic [address]rd [place] [phone] Rosalba Pendleton, MAXIMILIANO [address] [id number] [place] [address] 05/01/2025 10:00 AM CDT Office Visit [facility] Sleep Centers [place] [id number] [address] [phone] Abhishek Acevedo PA-C 6268 [facility] 103 [place], [place] [id number] 05/23/2025 10:40 AM CDT Virtual Visit [facility] Gastroenterology Clinic [address] [place] [phone] Abby Vasquez MD [address] [place] [address] documented as of this encounter Visit Diagnoses Not on filedocumented in this encounter Additional Health Concerns Infection Onset Date Last Indicated Resolved Time Rule Out COVID-19 04/03/2023 04/03/2023 04/04/2023 6:30 PM CDT Assessment Noted Time PHQ-9 Depression Total Score: 17 01/14/ 022 7:02 AM CDT documented as of this encounter Care Teams Blood Bank Calendar Control Clerk Relationship Specialty Start Date End Date Monty Musa MD PCP - General Family Medicine 08/13/21 Alfonso Tang Family Practice 08/13/21 Dayanara Bee MD [address] [address] Pediatrics 12/26/14 Min Lange MD [address] [address] Neurology 03/30/16 Marlo Madsen MD [address] [place] [address] Cardiology 10/27/16 Mel Buckley, RN Nurse Coordinator Physical Medicine and Rehabilitation 12/02/16 Douglas Cadet MD Gastroenterology 08/13/21 Rosalba Pendleton APRN MINE INSPECTOR FEDERAL [address] [place] [address] Nurse Practitioner Neurology 09/05/21 Rosalba Pendleton APRN MINE INSPECTOR FEDERAL [address] [place] [address] Assigned Neuroscience Provider 11/09/21 10/04/24 Douglas Cadet MD Assigned Gastroenterology Provider 03/14/22 09/03/23 Marlo Madsen MD [address] [place] [address] 418525 Assigned Heart and Vascular Provider 03/14/22 Abby Vasquez MD [address] [place] [address] 637235 Gastroenterology 07/16/22 Abby Vasquez MD [address] [place] [address] 584105 Assigned PCP 09/26/22 10/06/23 Airam Hodges PA-C 500 [place], [place] 850435 Physician Fleshing Machine Operator Surgery 07/19/23 Zain Quintana MD [address] [place] [address] 151655 Assigned Surgical Provider 10/07/23 Latricia Pettit PA-C [address] [place] [address] 185935 Assigned Gastroenterology Provider 10/15/23 Torri Francois MD [address] [place] [address] Assigned Neuroscience Provider 10/05/24 11/04/24 Abhishek Acevedo PA-C [address] [facility] 103 [place] [address] Assigned Neuroscience Provider 11/05/24 documented as of this encounter
--- OUTSIDE RECORDS SUMMARY | 2024-12-11 12:14 | XMS_ITS | Encounter Summary ---
Author Organization [place] Address [address] [place] [address]. [place] [address] Care Team Providers Care Client Consultant Name Role Phone Monty Musa MD Primary Care Provider [phone] Alfonso Tang Unavailable Unavailable Dayanara Bee MD Unavailable [phone] Min Lange MD Unavailable Unavailable BendMarlo molina MD Unavailable [phone] Mel Buckley RN Unavailable [phone] Douglas Cadet MD Unavailable [phone] Rosalba Pendleton CAREER BASED INTERVENTION COORDINATOR CLASSER Unavaila ble Rosalba Pendleton APRN CLASSER Unavaila ble Douglas Cadet MD Unavailable [phone] Marlo Madsen MD Unavailable [phone] Abby Vasquez MD Unavailable Abby Vasquez MD Unavailable Airam Hodges PA-C Unavailable [phone] Zain Quintana MD Unavailable [phone] Latricia Pettit PA-C Unavailable [phone] Torri Francois MD Unavailable [phone] Abhishek Acevedo PA-C Unavailable [phone] Encounter Details Date Type Department Care Team (Late st Contact Info) Description 07/16/2023 MyC Medical Advice [facility] Gastroenterology Clinic [address] [place] [phone] Sheri Edmonds RN Social History Tobacco Use [...] Sex Assigned at Female 10/31/2021 7:59 AM CELLOPHANE WORKER Legal Sex Female 10:14 AM CELLOPHANE WORKER Gender Identity Female 10/31/2021 7:59 AM CELLOPHANE WORKER Sexual Orientation Straight 10/31/2021 7: 59 AM CELLOPHANE WORKER documented as of this encounter Plan of Treatment Upcoming Encounters Date Type Department Care Team (Late st Contact Info) Description 01/11/2025 9:00 AM CDT Virtual Visit [facility] Neurology Clinic [address] 3rd [place] [address] Rosalba Pendleton APRN [address] [id number] [place] [address] 05/01/2025 10:00 AM CDT Office Visit [facility] Sleep Centers [place] 6363 [facility] 103 [place] [phone] Abhishek Acevedo PA-C 5340 [facility] [place] 103 [place] [address] 05/23/2025 10:40 AM CDT Virtual Visit [facility] Gastroenterology Clinic [address] [place] [address] Abby Vasquez MD 909 [place] [address] documented as of this encounter Visit Diagnoses Not on filedocumented in this encounter Additional Health Concerns Assessment Noted Time PHQ-9 Depression Total Score: 12 023 8:53 AM CDT documented as of this encounter Care Teams Client Consultant Relationship Specialty Start Date End Date Monty Musa MD PCP - General Family Medicine 08/13/21 Alfonso Tang Family Practice 08/13/21 Dayanara Bee MD [address] [place] [address] Pediatrics 12/26/14 Min Lange MD [address] [place] [address] 1984[address] Neurology 03/30/16 Marlo Madsen MD [address] [place] [address] 951235 Cardiology 10/27/16 Mel Buckley, RN Nurse Coordinator Physical Medicine and Rehabilitation 12/02/16 Douglas Cadet MD Gastroenterology 08/13/21 Rosalba Pendleton APRN CLASSER [address] [place] [address] 955955 Nurse Practitioner Neurology 09/05/21 Rosalba Pendleton APRN CLASSER [address] [place] [address] 08782 Assigned Neuroscience Provider 11/09/21 10/04/24 Douglas Cadet MD Assigned Gastroenterology Provider 03/14/22 09/03/23 Marlo Madsen MD [address] [place] [address] 138565 Assigned Heart and Vascular Provider 03/14/22 Abby Vasquez MD [address] [place] [address] 732555 Gastroenterology 07/16/22 Abby Vasquez MD [address] [place] [address] 441845 Assigned PCP 09/26/22 10/06/23 Airam Hodges PA-C 500 [place], [place] 149425 Physician Tube Bender Hand Surgery 07/19/23 Zain Quintana MD 500 [place], [place] 483235 Assigned Surgical Provider 10/07/23 Latricia Pettit PA-C [address] [place] [address] 448515 Assigned Gastroenterology Provider 10/15/23 Torri Francois MD [address] [place] [address] 586235 Assigned Neuroscience Provider 10/05/24 11/04/24 Abhishek Acevedo PA-C [address] [facility] 103 [place] [address] Assigned Neuroscience Provider 11/05/24 documented as of this encounter
--- OUTSIDE RECORDS SUMMARY | 2024-12-11 12:14 | XMS_ITS | Encounter Summary ---
Author Organization [facility] Address [address] [place] [address]. [place] [address] Care Team Providers Care Stock Selector Name Role Phone Alfonso Tang Primary Care Provider Unavailabl Monty Olvera MD Primary Care Provider Alfonso Tang Unavailable Unavailable Dayanara Bee MD Unavailable [phone] Min Lange MD Unavailable Unavailable Marlo Madsen MD Unavailable [phone] Mel Buckley RN Unavailable [phone] [place] Cadet MD Unavailable [phone] Rosalba Pendleton APRN SOFA COVER INSPECTOR Unavaila ble Rosalba Pendleton APRN SOFA COVER INSPECTOR Unavaila ble [place] Cadet MD Unavailable [phone] Marlo Madsen MD Unavailable [phone] Abby Vasquez MD Unavailable Abby Vasquez MD Unavailable Airam Hodges PA-C Unavailable [phone] Zain Quintana MD Unavailable [phone] Latricia Pettit PA-C Unavailable [phone] Torri Francois MD Unavailable [phone] Abhishek Acevedo PA-C Unavailable Encounter Details Date [...] Sex Assigned at Female 10/31/2021 7:59 AM HUMAN RESOURCES RECEPTIONIST Legal Sex Female 10:14 AM HUMAN RESOURCES RECEPTIONIST Gender Identity Female 10/31/2021 7:59 AM HUMAN RESOURCES RECEPTIONIST Sexual Orientation Straight 10/31/2021 7: 59 AM HUMAN RESOURCES RECEPTIONIST documented as of this encounter Plan of Treatment Upcoming Encounters Date Type Department Care Team (Late st Contact Info) Description 01/11/2025 9:00 AM CDT Virtual Visit [facility] Neurology Clinic [address] [place] [address] Rosalba Pendleton, COMPLAINT ADJUSTER SOFA COVER INSPECTOR [address] [place] [address] [id number] [place], [place] 243195 05/01/2025 10:00 AM CDT Office Visit [facility] Sleep Centers [address] [phone] Abhishek Acevedo PA-C [address] [address] 05/23/2025 10:40 AM CDT Virtual Visit [facility] Gastroenterology Clinic [address] [place] [address] Abby Vasquez MD [address] [place] [address] 774885 documented as of this encounter Visit Diagnoses Not on filedocumented in this encounter Additional Health Concerns Infection Onset Date Last Indicated Resolved Time Rule Out COVID-19 04/03/2023 04/03/2023 04/04/2023 6:30 PM CDT documented as of this encounter Care Teams Stock Selector Relationship Specialty Start Date End Date LorrainejoeAlfonso walker Odalis PCP - General Family Practice 09/04/13 08/12/21 Monty Musa MD PCP - General Family Medicine 08/13/21 Alfonso Tang Family Practice 08/13/21 Dayanara Bee MD [address] 120445 Pediatrics 12/26/14 Min Lange MD [address] [address] Neurology 03/30/16 Marlo Madsen MD [address] 465275 Cardiology 10/27/16 Mel Buckley, RN Nurse Coordinator Physical Medicine and Rehabilitation 12/02/16 [place] Cadet MD Gastroenterology 08/13/21 Rosalba Pendleton APRN SOFA COVER INSPECTOR [address] [place], [place] [address] Nurse Practitioner Neurology 09/05/21 Rosalba Pendleton APRN SOFA COVER INSPECTOR [address] 189595 Assigned Neuroscience Provider 11/09/21 10/04/24 [place] Cadet MD Assigned Gastroenterology Provider 03/14/22 09/03/23 Marlo Madsen MD [address] [place] [address] 157835 Assigned Heart and Vascular Provider 03/14/22 Abby Vasquez MD [address] [place] [address] 841345 Gastroenterology 07/16/22 Abby Vasquez MD [address] [place] [address] 145895 Assigned PCP 09/26/22 10/06/23 Airam Hodges PA-C [address] [place] [address] 044945 Physician [employer] Professional Surgery 07/19/23 Zain Quintana MD [address] [place] [address] 392435 Assigned Surgical Provider 10/07/23 Latricia Pettit PA-C [address] [place] [address] 762115 Assigned Gastroenterology Provider 10/15/23 Torri Francois MD [address] [place] [address] 918135 Assigned Neuroscience Provider 10/05/24 11/04/24 Abhishek Acevedo PA-C [address] [place] [address] Assigned Neuroscience Provider 11/05/24 documented as of this encounter
--- OUTSIDE RECORDS SUMMARY | 2024-12-11 12:14 | XMS_ITS | Encounter Summary ---
Author Organization [facility] Address [address] [place] [address]. [place] [address] Care Team Providers Care Sports Official Name Role Phone Monty Musa MD Primary Care Provider [phone] Alfonso Tang Unavailable Unavailable Dayanara Bee MD Unavailable [phone] Min Lange MD Unavailable Unavailable BendMarlo molina MD Unavailable [phone] Mel Buckley RN Unavailable [phone] [place] Cadet MD Unavailable [phone] Rosalba Pendleton HAIRSPRING I INSPECTOR PROPERTY MANAGER Unavaila ble Rosalba Pendleton APRN PROPERTY MANAGER Unavaila ble [place] Cadet MD Unavailable [phone] Marlo Madsen MD Unavailable [phone] Abby Vasquez MD Unavailable Abby Vasquez MD Unavailable Airam Hodges PA-C Unavailable [phone] Zain Quintana MD Unavailable [phone] Latricia Pettit PA-C Unavailable [phone] Torri Francois MD Unavailable Abhishek Acevedo PA-C Unavailable [phone] Encounter Details Date Type Department Care Team (Late Contact Info) Description 01/21/2023 MyC Medical Advice [facility] Heart [address] [address] Marlo Madsen MD [address] [place] [address] [id number] Social History Tobacco Use Types Packs/Day Years Used Date Smoking Tobacco: Never Smokeless Tobacco: Never Alcohol Use Standard Drinks/Week Comments No 0 (1 standard drink = 0.6 oz pur e alcohol) PHQ-2 Answer Date Recorded PHQ-2 Score 2 01/19/2023 Comments No Sex and Gender Information Value Date Recorded Sex Assigned at Female 10/31/2021 7:59 AM PROJECT MANAGEMENT DIRECTOR Legal Sex Female 10:14 AM PROJECT MANAGEMENT DIRECTOR Gender Identity Female 10/31/2021 7:59 AM PROJECT MANAGEMENT DIRECTOR Sexual Orientation Straight 10/31/2021 7: 59 AM PROJECT MANAGEMENT DIRECTOR documented as of this encounter Plan of Treatment Upcoming Encounters Date Type Department Care Team (Late st Contact Info) Description 01/11/2025 9:00 AM CDT Virtual Visit [facility] Neurology Clinic [address] [place] [address] Rosalba Pendleton, HAIRSPRING I INSPECTOR [address] [id number] [place] [address] 05/01/2025 10:00 AM CDT Office Visit [facility] Sleep Centers [place] [address] [address] Abhishek Acevedo PA-C 0688 [facility] 103 [place], [place] 120[address] 05/23/2025 10:40 AM CDT Virtual Visit [facility] Gastroenterology Clinic [address] [place] [phone] Abby Vasquez MD 909 [place] [address] documented as of this encounter Visit Diagnoses Not on filedocumented in this encounter Additional Health Concerns Infection Onset Date Last Indicated Resolved Time Rule Out COVID-19 04/03/2023 04/03/2023 04/04/2023 6:30 PM CDT Assessment Noted Time PHQ-9 Depression Total Score: 11 022 11:52 AM CDT documented as of this encounter Care Teams Sports Official Relationship Specialty Start Date End Date Monty Musa MD PCP - General Family Medicine 08/13/21 Alfonso Tang Family Practice 08/13/21 Dayanara Bee MD [address] [address] Pediatrics 12/26/14 Min Lange MD [address] [address] Neurology 03/30/16 Marlo Madsen MD [address] [address] Cardiology 10/27/16 Mel Buckley, RN Nurse Coordinator Physical Medicine and Rehabilitation 12/02/16 [place] Cadet MD Gastroenterology 08/13/21 Rosabla Pendleton APRN PROPERTY MANAGER [address] [place] [address] [id number] [place] [address] Nurse Practitioner Neurology 09/05/21 Rosalba Pendleton APRN CNP [address] [place] [address] [id number] [place], [place] 127915 Assigned Neuroscience Provider 11/09/21 10/04/24 [place] Cadet MD Assigned Gastroenterology Provider 03/14/22 09/03/23 Marlo Madsen MD [address] [place] [address] 75 [place] [address] Assigned Heart and Vascular Provider 03/14/22 Abby Vasquez MD [address] [place] [address] Gastroenterology 07/16/22 Abby Vasquez MD [address] [place] [address] Assigned PCP 09/26/22 10/06/23 Airam Hodges PA-C [address] [place] [address] 134025 Physician Batch Analyst Surgery 07/19/23 Zain Quintana MD [address] [place] [place] [address] Assigned Surgical Provider 10/07/23 Latricia Pettit PA-C [address] [place] [address] 642235 Assigned Gastroenterology Provider 10/15/23 Torri Francois MD [address] [place] [address] 643395 Assigned Neuroscience Provider 10/05/24 11/04/24 Abhishek Acevedo PA-C [address] [place] [address] Assigned Neuroscience Provider 11/05/24 documented as of this encounter
--- OUTSIDE RECORDS SUMMARY | 2024-12-11 12:14 | XMS_ITS | Encounter Summary ---
Author Organization [facility] Address [address] [place] [address]. [place] [address] Care Team Providers Care Customer Records Division Supervisor Name Role Phone Monty Musa MD Primary Care Provider [phone] Alfonso Tang Unavailable Unavailable Dayanara Bee MD Unavailable [phone] Min Lange MD Unavailable Unavailable BendMarlo molina MD Unavailable [phone] Mel Buckley RN Unavailable [phone] [place] Cadet MD Unavailable [phone] Rosalba Pendleton SURGERY AIDE CRYSTAL GAZER Unavaila ble Rosalba Pendleton APRN CRYSTAL GAZER Unavaila ble [place] aCdet MD Unavailable [phone] Marlo Madsen MD Unavailable [phone] Abby Vasquez MD Unavailable Abby Vasquez MD Unavailable Airam Hodges PA-C Unavailable [phone] Zain Quintana MD Unavailable [phone] Latricia Pettit PA-C Unavailable [phone] Torri Francois MD Unavailable Abhishek Acevedo PA-C Unavailable [phone] Encounter Details Date Type Department Care Team (Late st Contact Info) Description 09/07/2021 MyC Medical Advice Initial Department Andie Raya Social History Tobacco Use Types Packs/Day Years Used Date Smoking Tobacco: Never Assessed Comments No Sex and Gender Information Value Date Recorded Sex Assigned at Female 10/31/2021 7:59 AM CIVIL TECHNICIAN Legal Sex Female 10:14 AM CIVIL TECHNICIAN Gender Identity Female 10/31/2021 7:59 AM CIVIL TECHNICIAN Sexual Orientation Straight 10/31/2021 7: 59 AM CIVIL TECHNICIAN COVID-19 Exposure Response Date Recorded In the last month, have you been in contact with someone who was confirmed or suspected to have Coronavirus / COVID-19? Unable to assess 08/13/2021 10:06 AM CIVIL TECHNICIAN documented as of this encounter Plan of Treatment Upcoming Encounters Date Type Department Care Team (Late st Contact Info) Description 01/11/2025 9:00 AM CDT Virtual Visit [facility] Neurology Clinic [address] [address] Rosalba Pendleton, MAXIMILIANO CRYSTAL GAZER [address] [place] [address] [id number] [place], [place] 768535 05/01/2025 10:00 AM CDT Office Visit [facility] Sleep Centers [place] [phone] [address] [phone] Abhishek Acevedo PA-C 6363 [facility] 103 [place], [place] [id number] 05/23/2025 10:40 AM CDT Virtual Visit [facility] Gastroenterology Clinic [address] [place] [phone] Abby Vasquez MD [address] [place] [address] 054725 documented as of this encounter Visit Diagnoses Not on filedocumented in this encounter Additional Health Concerns Infection Onset Date Last Indicated Resolved Time Rule Out COVID-19 04/03/2023 04/03/2023 04/04/2023 6:30 PM CDT documented as of this encounter Care Teams Customer Records Division Supervisor Relationship Specialty Start Date End Date Monty Musa MD PCP - General Family Medicine 08/13/21 Alfonso Tang Family Practice 08/13/21 Dayanara Bee MD [address] 245925 Pediatrics 12/26/14 Min Lange MD [address] [address] Neurology 03/30/16 Marlo Madsen MD [address] [address] Cardiology 10/27/16 Mel Buckley, RN Nurse Coordinator Physical Medicine and Rehabilitation 12/02/16 [place] Cadet MD Gastroenterology 08/13/21 Rosalba Pendleton APRN CRYSTAL GAZER [address] [place] [address] Nurse Practitioner Neurology 09/05/21 Rosalba Pendleton APRN CRYSTAL GAZER [address] [address] Assigned Neuroscience Provider 11/09/21 10/04/24 [place] Cadet MD Assigned Gastroenterology Provider 03/14/22 09/03/23 Marlo Madsen MD [address] [place] [address] Assigned Heart and Vascular Provider 03/14/22 Abby Vasquez MD [address] [place] [address] Gastroenterology 07/16/22 Abby Vasquez MD [address] [place] [address] Assigned PCP 09/26/22 10/06/23 Airam Hodges PA-C [address] [place] [address] 164065 Physician Room Server Surgery 07/19/23 Zain Quintana MD [address] [place] [address] 832435 Assigned Surgical Provider 10/07/23 Latricia Pettit PA-C [address] [place] [address] 607115 Assigned Gastroenterology Provider 10/15/23 Torri Francois MD [address] [place] [address] 149995 Assigned Neuroscience Provider 10/05/24 11/04/24 Abhishek Acevedo PA-C [address] [address] Assigned Neuroscience Provider 11/05/24 documented as of this encounter
--- OUTSIDE RECORDS SUMMARY | 2024-12-11 12:14 | XMS_ITS | Encounter Summary ---
Author Organization [facility] Address [address] [place] [address]. [place] [address] Care Team Providers Care Stenotypist Name Role Phone Monty Musa MD Primary Care Provider [phone] Alfonso Tang Unavailable Unavailable Dayanara Bee MD Unavailable [phone] Min Lange MD Unavailable Unavailable BendMarlo molina MD Unavailable [phone] Mel Buckley RN Unavailable [phone] [place] Cadet MD Unavailable [phone] Rosalba Pendleton AMORTIZATION CLERK SUPERVISOR CONCRETE PIPE PLANT Unavaila ble Rosalba Pendleton APRN SUPERVISOR CONCRETE PIPE PLANT Unavaila ble [place] Cadet MD Unavailable [phone] Marlo Madsen MD Unavailable [phone] Abby Vasquez MD Unavailable Abby Vasquez MD Unavailable Airam Hodges PA-C Unavailable [phone] Zain Quintana MD Unavailable [phone] Latricia Pettit PA-C Unavailable [phone] Torri Francois MD Unavailable Abhishek Acevedo PA-C Unavailable [phone] Reason for Visit * Reason Onset Date Comments Appointment 08/13/2021 Encounter Details Date Type Department Care Team (Late Contact Info) Description 08/13/[address] [facility] Gastroenterology Clinic [address] [place] [address] [place] Cadet MD [address] [place] [address] 956905 Appointment Social History Tobacco Use Types Packs/Day Years Used Date Smoking Tobacco: Never Assessed Comments No Sex and Gender Information Value Date Recorded Sex Assigned at Female 10/31/2021 7:59 AM LUMBER PRESS OPERATOR Legal Sex Female 10:14 AM LUMBER PRESS OPERATOR Gender Identity Female 10/31/2021 7:59 AM LUMBER PRESS OPERATOR Sexual Orientation Straight 10/31/2021 7: 59 AM LUMBER PRESS OPERATOR COVID-19 Exposure Response Date Recorded In the last month, have you been in contact with someone who was confirmed or suspected to have Coronavirus / COVID-19? Unable to assess 08/13/2021 10:06 AM LUMBER PRESS OPERATOR documented as of this encounter Miscellaneous Notes * Telephone Encounter - Ashleigh Shahid - 08/13/2021 10:07 AM CST [facility] Call Center Phone Message May a detailed message be left on voicemail: yes Reason for Call: Other: Patient is being referred for IBS and is experiencing weight loss, 80lbs within the last year. Please review per scheduling guidelines. Thanks! Action Taken: Message routed to: [facility] GI Travel Screening: Not Applicable ER PRESS OPERATOR documented in this encounter Plan of Treatment Upcoming Encounters Date Type Department Care Team (Late st Contact Info) Description 01/11/2025 9:00 AM CDT Virtual Visit [facility] Neurology Clinic [address] [place] [phone] Rosalba Pendleton APRN [address] [id number] [place] [address] 05/01/2025 10:00 AM CDT Office Visit [facility] Sleep Centers [place] 6363 [facility] [address] [place] [phone] Abhishek Acevedo PA-C [address] [place], [place] [id number] 05/23/2025 10:40 AM CDT Virtual Visit [facility] Gastroenterology Clinic [address] 4th [place] [phone] Abby Vasquez MD [address] [place] [address] documented as of this encounter Visit Diagnoses Not on filedocumented in this encounter Additional Health Concerns Infection Onset Date Last Indicated Resolved Time Rule Out COVID-19 04/03/2023 04/03/2023 04/04/2023 6:30 PM CDT documented as of this encounter Care Teams Stenotypist Relationship Specialty Start Date End Date Monty Musa MD PCP - General Family Medicine 08/13/21 Alfonso Tang Family Practice 08/13/21 Dayanara Bee MD [address] [address] Pediatrics 12/26/14 Min Lange MD [address] [address] Neurology 03/30/16 Marlo Madsen MD [address] [address] Cardiology 10/27/16 Mel Buckley, RN Nurse Coordinator Physical Medicine and Rehabilitation 12/02/16 [place] Cadet MD Gastroenterology 08/13/21 Rosalba Pendleton APRN SUPERVISOR CONCRETE PIPE PLANT [address] [place] [address] 956005 Nurse Practitioner Neurology 09/05/21 Rosalba Pendleton APRN SUPERVISOR CONCRETE PIPE PLANT [address] [place] [address] 507925 Assigned Neuroscience Provider 11/09/21 10/04/24 [place] Cadet MD Assigned Gastroenterology Provider 03/14/22 09/03/23 Marlo Madsen MD [address] [place] [address] 525645 Assigned Heart and Vascular Provider 03/14/22 Abby Vasquez MD [address] [place] [address] 104105 Gastroenterology 07/16/22 Abby Vasquez MD [address] [place] [address] Assigned PCP 09/26/22 10/06/23 Airam Hodges PA-C [address] [place] [address] 996375 Physician Adult Family Home Program Manager Surgery 07/19/23 Zain Quintana MD [address] [place] [address] Assigned Surgical Provider 10/07/23 Latricia Pettit PA-C [address] [place] [address] Assigned Gastroenterology Provider 10/15/23 Torri Francois MD [address] [place] [address] Assigned Neuroscience Provider 10/05/24 11/04/24 Abhishek Acevedo PA-C [address] [address] Assigned Neuroscience Provider 11/05/24 documented as of this encounter
--- OUTSIDE RECORDS SUMMARY | 2024-12-11 12:14 | XMS_ITS | Encounter Summary ---
Author Organization [facility] Address [address] [place] [address]. [place] [address] Care Team Providers Care Log Handler Name Role Phone Alfonso Tang Primary Care Provider Unavailabl Monty Olvera MD Primary Care Provider Alfonso Tang Unavailable Unavailable Dayanara Bee MD Unavailable [phone] Min Lange MD Unavailable Unavailable Marlo Madsen MD Unavailable [phone] Mel Buckley RN Unavailable [phone] [place] Cadet MD Unavailable [phone] Rosalba Pendleton APRN CHEMISTRY INSTRUCTOR Unavaila ble Rosalba Pendleton APRN CHEMISTRY INSTRUCTOR Unavaila ble [place] Cadet MD Unavailable [phone] Marlo Madsen MD Unavailable [phone] Abby Vasquez MD Unavailable Abby Vasquez MD Unavailable Airam Hodges PA-C Unavailable [phone] Zain Quintana MD Unavailable [phone] Latricia Pettit PA-C Unavailable [phone] Torri Francois MD Unavailable [phone] Abhishek Acevedo PA-C Unavailable [phone] Encounter Details Date Type Department Care Team (Late Contact Info) Description 12/12/2016 MyC Medical Advice [facility] Hepatology Clinic [address] [address] Chaitanya Garza MD [address] [place] [address] [address] [place], [place] [address] Social History Tobacco Use Types Packs/Day Years Used Date Smoking Tobacco: Never Smokeless Tobacco: Never Alcohol Use Standard Drinks/Week Comments No 0 (1 standard drink = 0.6 oz pur e alcohol) Comments No Sex and Gender Information Value Date Recorded Sex Assigned at Female 10/31/2021 7:59 AM IRRIGATIONIST Legal Sex Female 10:14 AM IRRIGATIONIST Gender Identity Female 10/31/2021 7:59 AM IRRIGATIONIST Sexual Orientation Straight 10/31/2021 7: 59 AM IRRIGATIONIST documented as of this encounter Plan of Treatment Upcoming Encounters Date Type Department Care Team (Late st Contact Info) Description 01/11/2025 9:00 AM CDT Virtual Visit [facility] Neurology Clinic [address] [place] [address] Rosalba Pendleton, SAFETY COUNSELOR [address] [id number] [place] [address] 05/01/2025 10:00 AM CDT Office Visit [facility] Sleep Centers [place] [address] [address] Abhishek Acevedo PA-C 9051 [facility] [place] 103 [place], [place] [id number] 05/23/2025 10:40 AM CDT Virtual Visit [facility] Gastroenterology Clinic [address] [place] [phone] Abby Vasquez MD 909 [place] [address] documented as of this encounter Visit Diagnoses Not on filedocumented in this encounter Additional Health Concerns Infection Onset Date Last Indicated Resolved Time Rule Out COVID-19 04/03/2023 04/03/2023 04/04/2023 6:30 PM CDT documented as of this encounter Care Teams Log Handler Relationship Specialty Start Date End Date Alfonso Tang PCP - General Family Practice 09/04/13 08/12/21 Monty Musa MD PCP - General Family Medicine 08/13/21 Alfonso Tang Family Practice 08/13/21 Dayanara Bee MD [address] [address] Pediatrics 12/26/14 Min Lange MD [address] [address] Neurology 03/30/16 Marlo Madsen MD [address] [address] Cardiology 10/27/16 Mel Buckley, RN Nurse Coordinator Physical Medicine and Rehabilitation 12/02/16 [place] Cadet MD Gastroenterology 08/13/21 Rosalba Pendleton APRN CHEMISTRY INSTRUCTOR 909 [facility] [id number] [place] [address] Nurse Practitioner Neurology 09/05/21 Rosalba Pendleton APRN CHEMISTRY INSTRUCTOR [address] [place] [address] [id number] [place], [place] 206115 Assigned Neuroscience Provider 11/09/21 10/04/24 [place] Cadet MD Assigned Gastroenterology Provider 03/14/22 09/03/23 Marlo Madsen MD [address] [place] [address] 75 [place], [place] 002145 Assigned Heart and Vascular Provider 03/14/22 Abby Vasquez MD [address] [place] [address] 835645 Gastroenterology 07/16/22 Abby Vasquez MD [address] [place] [address] 427685 Assigned PCP 09/26/22 10/06/23 Airam Hodges PA-C [address] [place] [address] 736025 Physician Master Control Engineer Surgery 07/19/23 Zain Quintana MD [address] [place] [address] 554065 Assigned Surgical Provider 10/07/23 Latricia Pettit PA-C [address] [place] [address] Assigned Gastroenterology Provider 10/15/23 Torri Francois MD [address] [place] [address] Assigned Neuroscience Provider 10/05/24 11/04/24 Abhishek Acevedo PA-C [address] [place] [address] Assigned Neuroscience Provider 11/05/24 documented as of this encounter
--- OUTSIDE RECORDS SUMMARY | 2024-12-11 12:14 | XMS_ITS | Continuity of Care Document ---
Author Organization [facility] Address [address] [facility] [address] [place] [address] Phone Care Team Providers Care Supervisor Area Name Role Phone Sukumar Costello PsyD Unavailable Unavailable Procedures Procedure Date Psychother Ov/op-behv Mod Psychother Ov/op-behv Mod Psychother Ov/op-behv Mod Psychother Ov/op-behv Mod Psychother Ov/op-behv Mod Psychother Ov/op-behv Mod 45-5 11 Psychother Ov/op-behv Mod 45-5 11 Advance Directives Directive Yes / No Effective Date File Name No Information Encounters Encounter Description Practice Location Reason(s) For Visit Diagnoses Date Provider Providers Copied on Encounter [facility], [address], [place], [place], [id number], [place] tel:[phone] Michelle [facility] 7390 No Information Pravin Patino. [address] , [address], [place], [place], [address], [place]. tel:[phone] Referring Provider: Alfonso Tang MD, [address] [place], [address]. tel:[phone] [facility], [address], [place], [place], [address], tel:[phone] Michelle [facility] 7392 No Information Lexau Sukumar. [address], [address], [place], [place], [address], [place]. tel:[phone] Referring Provider: Alfonso Tang MD, [address] [place], [address]. tel:[phone] [facility], [address], [place], [place], [id number], [place] tel:[phone] [facility] 7390 No Information Lexau Sukumar. [address], [address], [facility] [place], [address], [place]. tel:[phone] Referring Provider: Alfonso Tang MD, [address] [place], [address]. tel:[phone] [facility], [address], [place], [place], [address], [place] tel:[phone] [facility] 7390 No Information Lexau Sukumar. [address], [address], [place], [place], [address], [place]. tel:[phone] Referring Provider: Alfonso Tang MD, [address] [place], [address]. tel:[phone] [facility], [address], [place], [place], [address], [place] tel:[phone] [facility] 7390 No Information Lexau Sukumar. [address], [address], [place], [place], [address], [place]. tel:[phone] Referring Provider: Alfonso Tang MD, [address] [place], [address]. tel:[phone] [facility], [address] [facility] [address], [place], [place], [address], tel:[phone] Michelle [facility] 7390 No Information Lexau Sukumar. [address] [facility], [address], [place], [place], [address], . tel:[phone] Referring Provider: Alfonso Tang MD, [address] [place], [address]. tel:[phone] [facility] [address] [facility] [address], [place], [place], [address], tel:[phone] Michelle [facility] 7390 No Information Jose Manuelau Sukumar. [address] [facility], [address], [place], [place], [address], [place]. tel:[phone] Referring Provider: Alfonso Tang MD, [address] [place], [address]. tel:[phone] Family History Family Member Type Diagnosis Age At Onset No Information Payers Payer name Insurance type Covered republican ID Margi jalolh(s) Devonte Lugo [id number] Social History Type Description Quantity Date Captured Comments Sex Female Smoking Status No Information Chief Complaint And Reason For Visit No Information Reason For Referral Reason For Referral No Information History Of Present Illness Encounter Date Complaint History Of Prese nt Illness No Information Functional Status Date Functional Assessmen t No Information Instructions Date Instruction Additional Infor mation No Information Assessments Type Assessment Date No Information Patient Care Teams Name Effective Dates (start - stop) Status Members No Information
--- OUTSIDE RECORDS SUMMARY | 2024-12-11 12:14 | XMS_ITS | Encounter Summary ---
Author Organization [facility] Address [address] [place] [address]. [place] [address] Care Team Providers Care Telex Operator Name Role Phone Monty Musa MD Primary Care Provider [phone] Alfonso Tang Unavailable Unavailable Dayanara Bee MD Unavailable [phone] Min Lange MD Unavailable Unavailable BendMarlo molina MD Unavailable [phone] Mel Buckley RN Unavailable [phone] Douglas Cadet MD Unavailable [phone] Rosalba Pendleton PROFILER HAND SIGNAL APPRENTICE Unavaila ble Rosalba Pendleton APRN SIGNAL APPRENTICE Unavaila ble Douglas Cadet MD Unavailable [phone] Marlo Madsen MD Unavailable [phone] Abby Vasquez MD Unavailable Abby Vasquez MD Unavailable Airam Hodges PA-C Unavailable [phone] Zain Quintana MD Unavailable [phone] Latricia Pettit PA-C Unavailable [phone] Torri Francois MD Unavailable Abhishek Acevedo PA-C Unavailable [phone] Encounter Details Date Type Department Care Team (Late st Contact Info) Description 11/23/2022 MyC Medical Advice [facility] [address] [place] [phone] Vivian Carter Social History Tobacco Use Types Packs/Day Years Used Date Smoking Tobacco: Never Smokeless Tobacco: Never Alcohol Use Standard Drinks/Week Comments No 0 (1 standard drink = 0.6 oz pur e alcohol) PHQ-2 Answer Date Recorded PHQ-2 Score 3 05/28/2022 Comments No Sex and Gender Information Value Date Recorded Sex Assigned at Female 10/31/2021 7:59 AM VOCAL ARTIST Legal Sex Female 10:14 AM VOCAL ARTIST Gender Identity Female 10/31/2021 7:59 AM VOCAL ARTIST Sexual Orientation Straight 10/31/2021 7: 59 AM VOCAL ARTIST documented as of this encounter Plan of Treatment Upcoming Encounters Date Type Department Care Team (Late st Contact Info) Description 01/11/2025 9:00 AM CDT Virtual Visit [facility] [address] [place] [phone] Rosalba Pendleton APRN [address] [id number] [place] [address] 05/01/2025 10:00 AM CDT Office Visit [facility] [place] [id number] [phone] Abhishek Acevedo PA-C 5[address] [facility] 103 [place], [place] [id number] 05/23/2025 10:40 AM CDT Virtual Visit [facility] [address] [place] [phone] Abby Vasquez MD [address] [place] [address] documented as of this encounter Visit Diagnoses Not on filedocumented in this encounter Additional Health Concerns Infection Onset Date Last Indicated Resolved Time Rule Out COVID-19 04/03/2023 04/03/2023 04/04/2023 6:30 PM CDT Assessment Noted Time PHQ-9 Depression Total Score: 11 022 11:52 AM CDT documented as of this encounter Care Teams Telex Operator Relationship Specialty Start Date End Date Monty Musa MD PCP - General Family Medicine 08/13/21 Alfonso Tang Family Practice 08/13/21 Dayanara Bee MD [address] [address] Pediatrics 12/26/14 Min Lange MD [address] [address] Neurology 03/30/16 Marlo Madsen MD [address] [place] [address] 016805 Cardiology 10/27/16 Mel Buckley, DIAZ Nurse Coordinator Physical Medicine and Rehabilitation 12/02/16 Douglas Cadet MD Gastroenterology 08/13/21 Rosalba Pendleton APRN SIGNAL APPRENTICE [address] [place] [address] 303545 Nurse Practitioner Neurology 09/05/21 Rosalba Pendleton APRN SIGNAL APPRENTICE [address] [place] [address] Assigned Neuroscience Provider 11/09/21 10/04/24 Douglas Cadet MD Assigned Gastroenterology Provider 03/14/22 09/03/23 Marlo Madsen MD [address] [place] [address] 849685 Assigned Heart and Vascular Provider 03/14/22 Abby Vasquez MD [address] [place] [address] 276845 Gastroenterology 07/16/22 Abby Vasquez MD [address] [place] [address] 932245 Assigned PCP 09/26/22 10/06/23 Airam Hodges PA-C [address] [place], [place] [address] Physician Fiber Optic Technician Surgery 07/19/23 Zain Quintana MD [address] [place] [address] 652665 Assigned Surgical Provider 10/07/23 Latricia Pettit PA-C [address] [place] [address] 631925 Assigned Gastroenterology Provider 10/15/23 Torri Francois MD [address] [place] [address] Assigned Neuroscience Provider 10/05/24 11/04/24 Abhishek Acevedo PA-C [address] [facility] [address] [place] [address] Assigned Neuroscience Provider 11/05/24 documented as of this encounter
--- OUTSIDE RECORDS SUMMARY | 2024-12-11 12:14 | XMS_ITS | Encounter Summary ---
Author Organization [facility] Address [address] [place] [address]. [place] [address] Care Team Providers Care E Commerce Specialist Name Role Phone Monty Musa MD Primary Care Provider [phone] Alfonso Tang Unavailable Unavailable Dayanara Bee MD Unavailable [phone] Min Lange MD Unavailable Unavailable BendMarlo molina MD Unavailable [phone] Mel Buckley RN Unavailable [phone] Douglas Cadet MD Unavailable [phone] Rosalba Pendleton BILL BOARD POSTER SENIOR QUALITY CONTROL TECHNICIAN Unavaila ble Rosalba Pendleton APRN SENIOR QUALITY CONTROL TECHNICIAN Unavaila ble Douglas Cadet MD Unavailable [phone] Marlo Madsen MD Unavailable [phone] Abby Vasquez MD Unavailable Abby Vasquez MD Unavailable Airam Hodges PA-C Unavailable [phone] Zain Quintana MD Unavailable [phone] Latricia Pettit PA-C Unavailable [phone] Torri Francois MD Unavailable [phone] Abhishek Acevedo PA-C Unavailable [phone] Encounter Details Date Type Department Care Team (Late st Contact Info) Description 05/29/2022 MyC Medical Advice [facility] [address] [phone] [facility] Social History Tobacco Use Types Packs/Day Years Used Date Smoking Tobacco: Never Smokeless Tobacco: Never Alcohol Use Standard Drinks/Week Comments No 0 (1 standard drink = 0.6 oz pur e alcohol) PHQ-2 Answer Date Recorded PHQ-2 Score 3 05/28/2022 Comments No Sex and Gender Information Value Date Recorded Sex Assigned at Female 10/31/2021 7:59 AM MANAGER FIELD Legal Sex Female 10:14 AM MANAGER FIELD Gender Identity Female 10/31/2021 7:59 AM MANAGER FIELD Sexual Orientation Straight 10/31/2021 7: 59 AM MANAGER FIELD COVID-19 Exposure Response Date Recorded In the last 10 days, have yo u been in contact with someone who was confirmed or suspected to have Coronavirus/COVID-19? No / Unsure 05/04/2022 7:58 AM CDT documented as of this encounter Plan of Treatment Upcoming Encounters Date Type Department Care Team (Late st Contact Info) Description 01/11/2025 9:00 AM CDT Virtual Visit [facility] [address] 3rd [place] [phone] Rosalba Pendleton, BILL BOARD POSTER [address] [id number] [place] [address] 05/01/2025 10:00 AM CDT Office Visit [facility] [place] [phone] [address] [address] Abhishek Acevedo PA-C 3308 [facility] 103 [place], [place] [id number] 05/23/2025 10:40 AM CDT Virtual Visit [facility] [address] 4th [place] [address] Abby Vasquez MD [address] [place] [address] 693365 documented as of this encounter Visit Diagnoses Not on filedocumented in this encounter Additional Health Concerns Infection Onset Date Last Indicated Resolved Time Rule Out COVID-19 04/03/2023 04/03/2023 04/04/2023 6:30 PM CDT Assessment Noted Time PHQ-9 Depression Total Score: 11 022 11:52 AM CDT documented as of this encounter Care Teams E Commerce Specialist Relationship Specialty Start Date End Date Monty Musa MD PCP - General Family Medicine 08/13/21 Alfonso Tang Family Practice 08/13/21 Dayanara Bee MD [address] [address] Pediatrics 12/26/14 Min Lange MD [address] [address] Neurology 03/30/16 Marlo Madsen MD [address] [address] Cardiology 10/27/16 Mel Buckley, RN Nurse Coordinator Physical Medicine and Rehabilitation 12/02/16 Douglas Cadet MD Gastroenterology 08/13/21 Rosalba Pendleton APRN SENIOR QUALITY CONTROL TECHNICIAN [address] [place] [address] [id number] [place] [address] Nurse Practitioner Neurology 09/05/21 Rosalba Pendleton APRN SENIOR QUALITY CONTROL TECHNICIAN [address] [place] [address] [id number] [place], [place] 333615 Assigned Neuroscience Provider 11/09/21 10/04/24 Douglas Cadet MD Assigned Gastroenterology Provider 03/14/22 09/03/23 Marlo Madsen MD [address] [place] [address] 75 [place], [place] 8[address] Assigned Heart and Vascular Provider 03/14/22 Abby Vasquez MD [address] [place] [address] 45[address] Gastroenterology 07/16/22 Abby Vasquez MD [address] [place] [address] 818365 Assigned PCP 09/26/22 10/06/23 Airam Hodges PA-C [address] [place] [address] 106075 Physician Rebar Bender Surgery 07/19/23 Zain Quintana MD [address] [place] [address] 143465 Assigned Surgical Provider 10/07/23 Latricia Pettit PA-C [address] [place] [address] 026615 Assigned Gastroenterology Provider 10/15/23 Torri Francois MD [address] [place] [address] Assigned Neuroscience Provider 10/05/24 11/04/24 Abhishek Acevedo PA-C [address] [facility] 103 [place] [address] Assigned Neuroscience Provider 11/05/24 documented as of this encounter
--- OUTSIDE RECORDS SUMMARY | 2024-12-11 12:14 | XMS_ITS | Encounter Summary ---
Author Organization [facility] Address [address] [place] [address]. [place] [address] Care Team Providers Care Field Operations Supervisor Name Role Phone Monty Musa MD Primary Care Provider [phone] Alfonso Tang Unavailable Unavailable Dayanara Bee MD Unavailable [phone] Min Lange MD Unavailable Unavailable BendMarlo molina MD Unavailable [phone] Mel Buckley RN Unavailable [phone] Douglas Cadet MD Unavailable [phone] Rosalba Pendleton DETAIL DRAFTER BLENDER OPERATOR Unavaila ble Rosalba Pendleton APRN BLENDER OPERATOR Unavaila ble Douglas Cadet MD Unavailable [phone] Marlo Madsen MD Unavailable [phone] Abyb Vasquez MD Unavailable Abby Vasquez MD Unavailable Airam Hodges PA-C Unavailable [phone] Zain Quintana MD Unavailable [phone] Latricia Pettit PA-C Unavailable [phone] Torri Francois MD Unavailable Abhishek Acevedo PA-C Unavailable [phone] Encounter Details Date Type Department Care Team (Late Contact Info) Description 11/17/2022 MyC Medical Advice [facility] [address] [phone] Abby Vasquez MD [address] [place] [address] 878595 Social History Tobacco Use Types Packs/Day Years Used Date Smoking Tobacco: Never Smokeless Tobacco: Never Alcohol Use Standard Drinks/Week Comments No 0 (1 standard drink = 0.6 oz pur e alcohol) PHQ-2 Answer Date Recorded PHQ-2 Score 3 05/28/2022 Comments No Sex and Gender Information Value Date Recorded Sex Assigned at Female 10/31/2021 7:59 AM PHYSICAL THERAPIST AIDE Legal Sex Female 10:14 AM PHYSICAL THERAPIST AIDE Gender Identity Female 10/31/2021 7:59 AM PHYSICAL THERAPIST AIDE Sexual Orientation Straight 10/31/2021 7: 59 AM PHYSICAL THERAPIST AIDE documented as of this encounter Plan of Treatment Upcoming Encounters Date Type Department Care Team (Late st Contact Info) Description 01/11/2025 9:00 AM CDT Virtual Visit [facility] [address] [phone] Rosalba Pendleton APRN [address] [id number] [place] [address] 05/01/2025 10:00 AM CDT Office Visit [facility] [place] [address] [address] Abhishek Acevedo PA-C 0850 [facility] 103 [place], [place] [id number] 05/23/2025 10:40 AM CDT Virtual Visit [facility] [address] [place] [address] Abby Vasquez MD [address] [place], [place] 56[address] documented as of this encounter Visit Diagnoses Not on filedocumented in this encounter Additional Health Concerns Infection Onset Date Last Indicated Resolved Time Rule Out COVID-19 04/03/2023 04/03/2023 04/04/2023 6:30 PM CDT Assessment Noted Time PHQ-9 Depression Total Score: 11 022 11:52 AM CDT documented as of this encounter Care Teams Field Operations Supervisor Relationship Specialty Start Date End Date Monty Musa MD PCP - General Family Medicine 08/13/21 Alfonso Tang Family Practice 08/13/21 Dayanara Bee MD [address] [address] Pediatrics 12/26/14 Min Lange MD [address] [address] Neurology 03/30/16 Marlo Madsen MD [address] [address] Cardiology 10/27/16 Mel Buckley, RN Nurse Coordinator Physical Medicine and Rehabilitation 12/02/16 Douglas Cadet MD Gastroenterology 08/13/21 Rosalba Pendleton APRN BLENDER OPERATOR [address] [place] [address] [id number] [place], [place] 9173[address] Nurse Practitioner Neurology 09/05/21 Rosalba Pendleton APRN BLENDER OPERATOR [address] [place] [address] [id number] [place], [place] 092845 Assigned Neuroscience Provider 11/09/21 10/04/24 Douglas Cadet MD Assigned Gastroenterology Provider 03/14/22 09/03/23 Marlo Madsen MD [address] [place] [address] 75 [place], [place] 279[address] Assigned Heart and Vascular Provider 03/14/22 Abby Vasquez MD [address] [place] [address] 814465 Gastroenterology 07/16/22 Abby Vasquez MD [address] [place] [address] 242895 Assigned PCP 09/26/22 10/06/23 Airam Hodges PA-C [address] [place] [address] 610945 Physician Bpm Analyst Surgery 07/19/23 Zain Quintana MD [address] [place] [address] 799725 Assigned Surgical Provider 10/07/23 Latricia Pettit PA-C [address] [place] [address] Assigned Gastroenterology Provider 10/15/23 Torri Francois MD [address] [place] [address] Assigned Neuroscience Provider 10/05/24 11/04/24 Abhishek Acevedo PA-C [address] [facility] [address] [place] [address] Assigned Neuroscience Provider 11/05/24 documented as of this encounter
--- OUTSIDE RECORDS SUMMARY | 2024-12-11 12:14 | XMS_ITS | Encounter Summary ---
Author Organization [facility] Address [address] [place] [address]. [place] [address] Care Team Providers Care Trash Hauler Name Role Phone Monty Musa MD Primary Care Provider Alfonso Tang Unavailable Unavailable Dayanara Bee MD Unavailable [phone] Min Lange MD Unavailable Unavailable Marlo Madsen MD Unavailable [phone] Mel Buckley RN Unavailable [phone] Douglas Cadet MD Unavailable Rosalba Pendleton CIGARETTE TIPPER DRY CLEANER APPRENTICE Unavaila ble Rosalba Pendleton APRN DRY CLEANER APPRENTICE Unavaila ble Marlo Madsen MD Unavailable [phone] Abby Vasquez MD Unavailable Airam Hodges PA-C Unavailable [phone] Zain Quintana MD Unavailable [phone] Latricia Pettit PA-C Unavailable [phone] Torri Francois MD Unavailable [phone] Abhishek Acevedo PA-C Unavailable [phone] Encounter Details Date Type Department Care Team (Late st Contact Info) Description 12/06/2023 MyC Medical Advice [facility] [address] [place] [phone] Miriam Yepez RN Social History Tobacco Use [...] Sex Assigned at Female 10/31/2021 7:59 AM TABLE ASSEMBLER METAL Legal Sex Female 10:14 AM TABLE ASSEMBLER METAL Gender Identity Female 10/31/2021 7:59 AM TABLE ASSEMBLER METAL Sexual Orientation Straight 10/31/2021 7: 59 AM TABLE ASSEMBLER METAL documented as of this encounter Plan of Treatment Upcoming Encounters Date Type Department Care Team (Late Contact Info) Description 01/11/2025 9:00 AM CDT Virtual Visit [facility] [address] [phone] Rosalba Pendleton APRN [address] [id number] [place] [address] 05/01/2025 10:00 AM CDT Office Visit [facility] [address] [phone] Abhishek Acevedo PA-C [address] [address] 05/23/2025 10:40 AM CDT Virtual Visit [facility] [address] [place] [phone] Abby Vasquez MD [address] [place] [address] documented as of this encounter Visit Diagnoses Not on filedocumented in this encounter Additional Health Concerns Assessment Noted Time PHQ-9 Depression Total Score: 12 024 12:52 PM TABLE ASSEMBLER METAL documented as of this encounter Care Teams Trash Hauler Relationship Specialty Start Date End Date Monty Musa MD PCP - General Family Medicine 08/13/21 Alfosno Tang Family Practice 08/13/21 Dayanara Bee MD [address] 6[address] Pediatrics 12/26/14 Min Lange MD [address] [address] Neurology 03/30/16 Marlo Madsen MD [address] 0395[address] Cardiology 10/27/16 Mel Buckley, RN Nurse Coordinator Physical Medicine and Rehabilitation 12/02/16 Douglas Cadet MD Gastroenterology 08/13/21 Rosalba Pendleton APRN DRY CLEANER APPRENTICE 909 [id number] [place] [address] Nurse Practitioner Neurology 09/05/21 Rosalba Pendleton APRN DRY CLEANER APPRENTICE 909 [id number] [place] [address] Assigned Neuroscience Provider 11/09/21 10/04/24 Marlo Madsen MD [address] [address] Assigned Heart and Vascular Provider 03/14/22 Abby Vasquez MD [address] [place] [address] Gastroenterology 07/16/22 Airam Hodges PA-C [address] [place] [address] Physician Assistant Professor Of History Surgery 07/19/23 Zain Quintana MD [address] [place] [address] Assigned Surgical Provider 10/07/23 Latricia Pettit PA-C [address] [place] [address] Assigned Gastroenterology Provider 10/15/23 Torri Francois MD [address] [place] [address] 850855 Assigned Neuroscience Provider 10/05/24 11/04/24 Abhishek Acevedo PA-C [address] [address] Assigned Neuroscience Provider 11/05/24 documented as of this encounter
--- OUTSIDE RECORDS SUMMARY | 2024-12-11 12:14 | XMS_ITS | Encounter Summary ---
Author Organization [facility] Address [address] [place] [address]. [place] [address] Care Team Providers Care Solutions Delivery Consultant Name Role Phone Monty Musa MD Primary Care Provider [phone] Alfonso Tang Unavailable Unavailable Dayanara Bee MD Unavailable [phone] Min Lange MD Unavailable Unavailable BendMarlo molina MD Unavailable [phone] Mel Buckley RN Unavailable [phone] Douglas Cadet MD Unavailable [phone] Rosalba Pendleton VARNISH MELTER HELPER UX ARCHITECT Unavaila ble Rosalba Pendleton APRN UX ARCHITECT Unavaila ble Douglas Cadet MD Unavailable [phone] Marlo Madsen MD Unavailable [phone] Abby Vasquez MD Unavailable Abby Vasquez MD Unavailable Airam Hodges PA-C Unavailable [phone] Zain Quintana MD Unavailable [phone] Latricia Pettit PA-C Unavailable [phone] Torri Francois MD Unavailable [phone] Abhishek Acevedo PA-C Unavailable [phone] Encounter Details Date Type Department Care Team (Late st Contact Info) Description 06/01/[address] [facility] Heart Clinic [address] [phone] [facility] Social History Tobacco Use Types Packs/Day Years Used Date Smoking Tobacco: Never Smokeless Tobacco: Never Alcohol Use Standard Drinks/Week Comments No 0 (1 standard drink = 0.6 oz pur e alcohol) PHQ-2 Answer Date Recorded PHQ-2 Score 3 05/28/2022 Comments No Sex and Gender Information Value Date Recorded Sex Assigned at Female 10/31/2021 7:59 AM PROTOTYPE MACHINIST Legal Sex Female 10:14 AM PROTOTYPE MACHINIST Gender Identity Female 10/31/2021 7:59 AM PROTOTYPE MACHINIST Sexual Orientation Straight 10/31/2021 7: 59 AM PROTOTYPE MACHINIST COVID-19 Exposure Response Date Recorded In the last 10 days, have yo u been in contact with someone who was confirmed or suspected to have Coronavirus/COVID-19? No / Unsure 05/04/2022 7:58 AM CDT documented as of this encounter Plan of Treatment Upcoming Encounters Date Type Department Care Team (Late st Contact Info) Description 01/11/2025 9:[address] CDT Virtual Visit [facility] Neurology Clinic [address] 3rd [place] [phone] Rosalba Pendleton, VARNISH MELTER HELPER [id number] [address] 05/01/2025 10:00 AM CDT Office Visit [facility] Sleep Centers [place] [id number] [address] [address] Abhishek Acevedo PA-C 10[address] [facility] [address] [place], [place] [phone] 05/23/2025 10:40 AM CDT Virtual Visit [facility] Gastroenterology Clinic [address] 4th [place] [address] Abby Vasquez MD [address] [place] [address] [id number] documented as of this encounter Visit Diagnoses Not on filedocumented in this encounter Additional Health Concerns Infection Onset Date Last Indicated Resolved Time Rule Out COVID-19 04/03/2023 04/03/2023 04/04/2023 6:30 PM CDT Assessment Noted Time PHQ-9 Depression Total Score: 11 022 11:52 AM CDT documented as of this encounter Care Teams Solutions Delivery Consultant Relationship Specialty Start Date End Date Monty Musa MD PCP - General Family Medicine 08/13/21 Alfonso Tang [facility] 08/13/21 Dayanara Bee MD [address] [address] Pediatrics 12/26/14 Min Lange MD [address] [address] Neurology 03/30/16 Marlo Madsen MD [address] [address] Cardiology 10/27/16 Mel Buckley, RN Nurse Coordinator Physical Medicine and Rehabilitation 12/02/16 Douglas Cadet MD Gastroenterology 08/13/21 Rosalba Pendleton APRN UX ARCHITECT [address] [place] [address] [id number] [place] [address] Nurse Practitioner Neurology 09/05/21 Rosalba Pendleton APRN UX ARCHITECT [address] [place] [address] [id number] [place], [place] [id number] Assigned Neuroscience Provider 11/09/21 10/04/24 Douglas Cadet MD Assigned Gastroenterology Provider 03/14/22 09/03/23 Marlo Madsen MD [address] [place] [address] 75 [place], [place] [address] Assigned Heart and Vascular Provider 03/14/22 Abby Vasquez MD [address] [place] [address] [id number] Gastroenterology 07/16/22 Abby Vasquez MD [address] [place] [address] 408655 Assigned PCP 09/26/22 10/06/23 Airam Hodges PA-C [address] [place] [address] [id number] Physician Video And Sound Recorder Surgery 07/19/23 Zain Quintana MD [address] [place] [address] [id number] Assigned Surgical Provider 10/07/23 Latricia Pettit PA-C [address] [place] [address] [id number] Assigned Gastroenterology Provider 10/15/23 Torri Francois MD [address] [place] [address] Assigned Neuroscience Provider 10/05/24 11/04/24 Abhishek Acevedo PA-C [address] [facility] [address] [place] [address] Assigned Neuroscience Provider 11/05/24 documented as of this encounter
--- OUTSIDE RECORDS SUMMARY | 2024-12-11 12:14 | XMS_ITS | Clinical Summary ---
Author Organization [place] Address [address] [place] [address]. [place] [address] Care Team Providers Care Stick Puller Name Role Phone Monty Musa MD Primary Care Provider Alfonso Tang Unavailable Unavailable Dayanara Bee MD Unavailable [phone] Min Lange MD Unavailable Unavailable Marlo Madsen MD Unavailable [phone] Mel Buckley RN Unavailable [phone] Douglas Cadet MD Unavailable [phone] Rosalba Pendleton APRN BAND SAW MARKER Unavaila ble Marlo Madsen MD Unavailable [phone] Abby Vasquez MD Unavailable Airam Hodges PA-C Unavailable [phone] Zain Quintana MD Unavailable [phone] Latricia Pettit PA-C Unavailable [phone] Abhishek Acevedo PA-C Unavailable [phone] Allergies Active Allergy Reactions Criticality Noted Date Comments Amoxicillin-Pot Clavulanate GI Disturbance Medium 10/21/2016 Clavulanic Acid 10/25/2023 Other Reaction(s): High B/P, diarrhea Hydrocodone Nausea and Vomiting 10/25/2023 Hydrocodone-Acetaminoph en Unknown 01/14/2022 Medications order for DMEIndications: Dysautonomia (H),Heat intolerance Equipment being ordered: Micro climate cooling vest 1 kit 0 5 Active clonazePAM (KLONOPIN) 0.5 MG tablet Take 0.5 mg by mouth daily as needed for anxiety. 1 Active DULoxetine (CYMBALTA) 30 MG capsule Take 30 mg by mouth daily. Take with 60 mg for total of 90 mg daily 2 Active ondansetron (ZOFRAN ODT) 4 MG ODT tab Take 4 mg by mouth every 8 hours as needed for nausea or vomiting. 1 Active levothyroxine (SYNTHROID/LEVO THROID) 25 MCG tablet Take 25 mcg by mouth every morning (before breakfast). Active atorvastatin (LIPITOR) 10 MG tablet Take 10 mg by mouth every evening 4 Active erenumab-aooe (AIMOVIG) 140 MG/ML injectionIndica tions:Intractab le 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 Inject 1 mL (140 mg) Subcutaneous every 30 days 1 mL 11 4 Active ZOLMitriptan (ZOMIG-ZMT) 5 MG ODTIndications: Migraine without aura and without status migrainosus, not intractable Take 1 tablet (5 mg) by mouth at onset of headache for migraine May repeat in 2 hours. Max 2 tablets/24 hours. 18 tablet 11 4 Active midodrine (PROAMATINE) 5 MG tabletIndicatio ns:Syncope and collapse,Palpit ations,Vasovaga l syncope Take 2 tabletS BY MOUTH in the morning, and 1 tablet in the afternoon. Do not take within 4 hours lying down 270 tablet 1 4 Active Additional Information Patient taking differently: Take 2 tabletS BY MOUTH in the morning, and 1 tablet in the afternoon (PRN). Do not take within 4 hours lying down, Reported on 10/10/2024 DULoxetine (CYMBALTA) 60 MG capsule Take 60 mg by mouth daily. Take with 30 mg for total of 90 mg daily 4 Active Magnesium Oxide -Mg Supplement 500 MG TABS Take 1,000 mg by mouth at bedtime. Active Multiple Vitamins-Minera ls (MULTIVITAMIN GUMMIES ADULTS PO) Take 1 chew tab by mouth daily. Use own Active FIBER ADULT GUMMIES PO Take 10 g by mouth every morning. Use own Active polyethylene glycol (MIRALAX) 17 g packet Take 17 g by mouth daily. Active fludrocortisone (FLORINEF) 0.1 MG tabletIndicatio ns:Vasovagal syncope Take 2 tablets (0.2 mg) by mouth once daily. 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 Abdominal pain, generalized 10/05/2013 Encounters Date Type Department Care Team Description 12/09/2024 MyC Medical Advice [facility] Neurology [address] [address] Torri Francois MD 11/23/2024 5:20 PM CDT Ancillary Procedure Physicians [facility] EEG [address] [facility] [address] [place] [address] Torri Francois MD Psychogenic nonepileptic seizure 11/22/2024 Telephone [facility] Neurology [address] [address] Rosalba Pendleton APRN BAND SAW MARKER Prior Auth - Medication (erenumab-aooe (AIMOVIG) 140 MG/ML injection PA APPROVED) 11/15/2024 3:00 PM PROCESS PROJECT ENGINEER Ancillary Procedure [address] [place] [address] Abby Vasquez MD Constipation, unspecified constipation type 11/15/2024 11:20 AM PROCESS PROJECT ENGINEER Office Visit [facility] Gastroenterology Clinic [address] [phone] Abby Vasquez MD Constipation, unspecified constipation type (Primary Dx); Pelvic floor dysfunction 11/15/2024 Travel 11/01/2024 1:00 PM PROCESS PROJECT ENGINEER Ancillary Procedure [address] [place] [address] [phone] Latricia Pettit PA-C Chronic idiopathic constipation; Pelvic floor dysfunction; Irritable bowel syndrome with constipation 11/01/2024 MyC Medical Advice [facility] Gastroenterology Clinic [address] [phone] Latricia Pettit PA-C 11/01/2024 Travel 10/10/2024 8:30 AM PROCESS PROJECT ENGINEER Office Visit [facility] Sleep Centers [address] [phone] Abhishek Acevedo PA-C Delayed sleep phase syndrome (Primary Dx); Chronic insomnia; PLMD (periodic limb movement disorder) 10/10/2024 Travel 10/06/2024 11:30 AM PROCESS PROJECT ENGINEER Virtual Visit [facility] [address] [place] [phone] Dnadre Fuentes, GC Family history of malignant neoplasm of colon (Primary Dx); Family history of malignant neoplasm of breast; Family history of carrier of genetic disease; Family history of malignant neoplasm of ovary; Family history of colonic polyps 10/03/2024 3:15 PM PROCESS PROJECT ENGINEER Virtual Visit [facility] Gastroenterology Clinic [address] [phone] Latricia Pettit PA-C Chronic idiopathic constipation (Primary Dx); Pelvic floor dysfunction; Irritable bowel syndrome with constipation 09/27/2024 Orders Only [address] [address] Dandre Fuentes GC Family history of malignant neoplasm of breast (Primary Dx); Family history of carrier of genetic disease; Family history of malignant neoplasm of colon; Family history of malignant neoplasm of ovary; Family history of colonic polyps 09/20/2024 11:30 AM PROCESS PROJECT ENGINEER Lab [facility] [address] [place] [address] Family history of malignant neoplasm of breast; Family history of carrier of genetic disease; Family history of malignant neoplasm of colon; Family history of malignant neoplasm of ovary; Family history of colonic polyps 09/20/2024 Travel 09/18/2024 12:00 PM PROCESS PROJECT ENGINEER Virtual Visit [address] [phone] Dandre Fuentes GC Family history of malignant neoplasm of colon (Primary Dx); Family history of malignant neoplasm of breast; Family history of carrier of genetic disease; Family history of malignant neoplasm of ovary; Family history of colonic polyps 09/15/2024 MyC Medical Advice [address] [address] Dandre Fuentes GC 09/14/2024 Transcribe Orders GENERIC EXTERNAL DATA DEPARTMENT Provider, Generic External Data Family history of malignant neoplasm of breast (Primary Dx); Hereditary cancer-predisposing syndrome from Last 3 Months Immunizations Name Administration Dates Next Due DTAP (<7y) 11/16/2003, 6,01/31/1993,1990,1991,1991 HEPA 03/24/2013,11/01/2006 HIB(PRP-OMP)(PedvaxHIB) 06/14/1992,1991, HPV 02/02/2011,09/19/2010 HepB 05/15/2004,12/18/2003,11/16/2003 Influenza (IIV3) PF 05/23/2013 Influenza, Split Virus, Triv alent, Pf (Fluzone\Fluarix) 06/07/2024 MMR (MMRII) 03/31/1996,06/14/1992 Poliovirus, inactivated (IPV) 03/31/1996 ,1991,1991,1990 TDAP (Adacel,Boostrix) 03/24/2013 Varicella (Varivax) 03/24/2013,08/03/1995 Family History Medical History Relation Comments [...] Assigned at Female 10/31/2021 7:59 AM PROCESS PROJECT ENGINEER Legal Sex Female 10:14 AM PROCESS PROJECT ENGINEER Gender Identity Female 10/31/2021 7:59 AM PROCESS PROJECT ENGINEER Sexual Orientation Straight 10/31/2021 7: 59 AM PROCESS PROJECT ENGINEER Last Filed Vital Signs Vital Sign Reading Time Taken Comments Blood Pressure 136/95 11/15/2024 11:17 AM PROCESS PROJECT ENGINEER Pulse 62 11/15/2024 11:17 AM PROCESS PROJECT ENGINEER Temperature 37 C (98.6 F) 06/07/2024 7:59 AM CDT Respiratory Rate 16 08/15/2024 10:30 AM PROCESS PROJECT ENGINEER Oxygen Saturation 100% 11/15/2024 11:17 AM PROCESS PROJECT ENGINEER Inhaled Oxygen Concentration - - Weight 79.5 kg (175 lb 3.2 oz) 11/15/2024 11:17 AM PROCESS PROJECT ENGINEER Height 167.6 cm (5' 6) 11/15/2024 11:17 AM PROCESS PROJECT ENGINEER Body Mass Index 28.28 11/15/2024 11:17 AM PROCESS PROJECT ENGINEER Plan of Treatment Upcoming Encounters Date Type Department Care Team (Late st Contact Info) Description 01/11/2025 9:00 AM CDT Virtual Visit [facility] Neurology Clinic [address] 3rd [place] [address] Rosalba Pendleton APRN [facility] [address] [facility] [id number], [place] [address] 05/01/2025 10:00 AM CDT Office Visit [facility] Michelle [address] [facility] [address] [place] [address] Abhishek Acevedo PA-C [address] [place] [address] 05/23/2025 10:40 AM CDT Virtual Visit [facility] Gastroenterology Clinic [address] 4th [place] [address] Abby Vasquez MD [address] [place] [address] Health Maintenance Due Date Last Done Comments [...] 03/24/2023 03/24/2013, 11/16/2003, 11/16/2003, Additional history exists COVID-19 Vaccine ( season) 2024 06/18/2023, 07/22/2022, 10/31/2021, Additional history exists PAP 08/20/2026 08/20/2023, 04/2023, 11/24/2021, Additional history exists COLONOSCOPY 10/16/2026 10/16/2021, 11/2021, 12/10/2016, Additional history exists COLORECTAL CANCER SCREENING 10/16/2026 ZOSTER IMMUNIZATION (1 of 2) 2041 HEPATITIS B IMMUNIZATION Completed 004, 05/15/2004, 12/18/2003, Additional history exists HPV IMMUNIZATION Completed 02/02/2011, 03/2011, 06/09/2007 INFLUENZA VACCINE Completed 06/07/2024, , 06/06/2022, Additional history exists PHQ-2 (once per calendar year) Completed 10/03/2024, 07/06/2024, 06/21/2024, Additional history exists MENINGITIS IMMUNIZATION Aged Out No l onger eligible based on patient's age to complete this topic Pneumococcal Vaccine: Pediatrics (0 to 5 Years) and At-Risk Patients (6 to 49 Years) Aged Out No longer eligible based on patient's age to complete this topic Procedures Procedure Name Priority Date/Time Associated Diagnosis Comments XR KUB Routine 11/15/2024 2:54 PM PROCESS PROJECT ENGINEER Constipation, unspecified constipation type XR ABDOMEN 1 VIEW Routine 11/01/2024 1:0 0 PM PROCESS PROJECT ENGINEER Chronic idiopathic constipation Pelvic floor dysfunction Irritable bowel syndrome with constipation LABORATORY MISCELLANEOUS RESULT Routine 09/20/2024 11:09 AM PROCESS PROJECT ENGINEER Family history of malignant neoplasm of breast Family history of carrier of genetic disease Family history of malignant neoplasm of colon Family history of malignant neoplasm of ovary Family history of colonic polyps LABORATORY MISCELLANEOUS ORDER Routine 09/20/2024 11:09 AM PROCESS PROJECT ENGINEER Family history of malignant neoplasm of breast Family history of carrier of genetic disease Family history of malignant neoplasm of colon Family history of malignant neoplasm of ovary Family history of colonic polyps TSH Routine 03/04/2022 12:35 PM CDT Irritable bowel syndrome with constipation COLONOSCOPY - HIM SCAN 10/16/2021 12:00 AM PROCESS PROJECT ENGINEER ABSTRACT PAP (HIM EXTERNAL RESULT) Routine 03/13/2015 from Last 3 Months or Most Recently Relevant to Health Maintenance Results * X-ray KUB (11/15/2024 2:54 PM PROCESS PROJECT ENGINEER) Anatomical Region Laterality Modality Abdomen/Pelvis Computed Radiogr aphy 11/15/2024 2:54 PM PROCESS PROJECT ENGINEER Impressions 11/15/2024 3:07 PM PROCESS PROJECT ENGINEER IMPRESSION: No radiographic evidence of bowel obstruction. Small colonic stool burden, decreased in comparison to prior radiograph. No acute bony abnormality. Narrative 11/15/2024 3:07 PM PROCESS PROJECT ENGINEER EXAM: XR KUB LOCATION: [facility] DATE: 11/15/2024 INDICATION: abdominal pain, please assess degree of stool burden COMPARISON: Abdominal radiograph 11/01/2024 Procedure Note Chan Justice MD - 11/15/2024 EXAM: XR KUB LOCATION: [facility] DATE: 11/15/2024 INDICATION: abdominal pain, please assess degree of stool burden COMPARISON: Abdominal radiograph 11/01/2024 IMPRESSION: No radiographic evidence of bowel obstruction. Small colonicstool burden, decreased in comparison to prior radiograph. No acute bonyabnormality. Abby Vasquez MD IMG DIAGNOSTIC IM AGING ORDERABLES Final Result * X-ray Abdomen 1 vw (11/01/2024 1:00 PM PROCESS PROJECT ENGINEER) Anatomical Region Laterality Modality Abdomen/Pelvis Computed Radiogr aphy 11/01/2024 1:00 PM PROCESS PROJECT ENGINEER Impressions 11/01/2024 1:07 PM PROCESS PROJECT ENGINEER IMPRESSION: Nonobstructive bowel gas pattern. Large amount of formed stool in the cecum, ascending colon and transverse colon; and small amount of formed stool in the descending colon. Narrative 11/01/2024 1:07 PM PROCESS PROJECT ENGINEER EXAM: XR ABDOMEN 1 VIEW LOCATION: [facility] DATE: 11/01/2024 INDICATION: Standing order > Please comment on stool gas pattern COMPARISON: 07/09/2023 Procedure Note Christine Santacruz MD - 11/01/2024 EXAM: XR ABDOMEN 1 VIEW LOCATION: [facility] DATE: 11/01/2024 INDICATION: Standing order > Please comment on stool gas pattern COMPARISON: 07/09/2023 IMPRESSION: Nonobstructive bowel gas pattern. Large amount of formed stoolin the cecum, ascending colon and transverse colon; and small amount offormed stool in the descending colon. Latricia Pettit PA-C IMG DIAGNOSTIC IMAGING ORDE RABLES Final Result * Laboratory Miscellaneous Result (09/20/2024 11:09 AM PROCESS PROJECT ENGINEER) Test Name GADIEL 10/13/2024 7:04 AM PROCESS PROJECT ENGINEER MISCELLANEOUS TESTING See Scanned Result LABORATORY MISCELLANEOUS RESULT-Scanned 10/13/2024 7:04 AM PROCESS PROJECT ENGINEER MISCELLANEOUS TESTING Blood BLOOD SPECIMEN / Unknown Venipuncture / Unknown 09/20/2024 11:09 AM PROCESS PROJECT ENGINEER 09/20/2024 11:09 AM PROCESS PROJECT ENGINEER Wendi Esparza APRN BAND SAW MARKER LAB - BLOOD ORDERABLES Edited Result - Final MISCELLANEOUS TESTING * Other Laboratory; [facility]; Common Hereditary Cancers panel- PLEASE SEE COMMENTS FOR BLOOD DRAW INSTRUCTIONS (Laboratory Miscellaneous Order) (09/20/2024 11:09 AM PROCESS PROJECT ENGINEER) Specimen Status Specimen received. Reordered and sent to performing laboratory. Report to follow upon completion. [facility] 09/21/2024 9:22 AM PROCESS PROJECT ENGINEER [facility] Performing Laboratory [facility] 09/21/2024 9:22 AM PROCESS PROJECT ENGINEER [facility] LABORATORY Test Name Common Hereditary Cancers panel- PLEASE SEE COMMENTS FOR BLOOD DRAW INSTRUCTIONS [facility] 09/21/2024 9:22 AM PROCESS PROJECT ENGINEER [facility] LABORATORY Test Code [id number] [facility] 09/21/2024 9:22 AM PROCESS PROJECT ENGINEER [facility] Blood BLOOD SPECIMEN / Unknown Venipuncture / Unknown 09/20/2024 11:09 AM PROCESS PROJECT ENGINEER 09/20/2024 11:09 AM PROCESS PROJECT ENGINEER Wendi Esparza APRN, CNP LAB - BLOOD ORDERABLES Final Result [facility] [place] [facility] [address] [facility], Room [address] [place] [address], [place] [facility] LABORATORY [facility] [address] [facility] (no room number, 1st floor of clinic) [place] [address], [place] * TSH (03/04/2022 12:35 PM CDT) TSH 0.65 0.40 - 4.00 mU/L 03/04/2022 1:08 PM CDT [facility] Blood STRUCTURE OF RIGHT UPPER LIMB / Unknown Venipuncture / Unknown 03/04/2022 12:35 PM CDT 03/04/2022 12:37 PM CDT Douglas Cadet MD LAB - BLOOD ORDERABLE S Final Result [facility] [address] [facility] 1st [place] [address] * COLONOSCOPY - HIM SCAN (10/16/2021 12:00 AM PROCESS PROJECT ENGINEER) 10/16/2021 Provider Outside PROCEDURES Final Result * ABSTRACT PAP-NO CHARGE (03/13/2015) 03/13/2015 Narrative EXTERNAL LAB - 03/13/2015 ----- Message ----- From: Arina Posey LPN Sent: 03/21/2015 10:17 AM Subject: Last pap smear: 03/13/15 us Patient Reported LAB - HIM EXTERNAL RESULT Final Result EXTERNAL LAB External Lab from Last 3 Months or Most Recently Relevant to Health Maintenance Insurance DJZ MEDICARE MEDICA ACCESS ABILITY NE MEDICA PRIME SOLUTION MEDICA ACCESS ABILITY NE MEDICARE MEDICA PRIME SOLUTION [place] [id number] MEDICARE MED[place] ACC[place] MED[place] PRIME SOLUTION [place] Advance Directives For more information, please contact: [phone] * Full Code (Latest Code Status on File) Date Activated Date Inactivated Comments 05/31/2024 1:08 PM 06/07/2024 5:44 PM All basic an d advanced life-sustaining interventions are performed as appropriate Question Answer Comments Code status determined by: Discussion with zeyade nt/ legal decision maker Care Teams Stick Puller Relationship Specialty Start Date End Date Monty Musa MD PCP - General Family Medicine 08/13/21 Alfonso Tang Family [facility] 08/13/21 Dayanara Bee MD [address] 789[address] Pediatrics 12/26/14 Min Lange MD [address] [place] [address] Neurology 03/30/16 Marlo Madsen MD [address] [place] [address] Cardiology 10/27/16 Mel Buckley, RN Nurse Coordinator Physical Medicine and Rehabilitation 12/02/16 Douglas Cadet MD Gastroenterology 08/13/21 Rosalba Pendleton APRN BAND SAW MARKER [address] [place] [id number] [place], [place] [phone] Nurse Practitioner Neurology 09/05/21 Marlo Madsen MD [address] [place] [address] 470285 Assigned Heart and Vascular Provider 03/14/22 Abby Vasquez MD [address] [place] [address] [id number] Gastroenterology 07/16/22 Airam Hodges PA-C [address] [place] [address] 179535 Physician Barrow Worker Helper Surgery 07/19/23 Zain Quintana MD [address] [place] [address] Assigned Surgical Provider 10/07/23 Latricia Pettit PA-C [address] [place] [address] Assigned Gastroenterology Provider 10/15/23 Abhishek Acevedo PA-C [address] [address] Assigned Neuroscience Provider 11/05/24
--- OUTSIDE RECORDS SUMMARY | 2024-12-11 12:15 | XMS_ITS | Encounter Summary ---
Author Organization [place] Address [address] [place] [address]. [place] [address] Care Team Providers Care Boiler Installer Name Role Phone Monty Musa MD Primary Care Provider Alfonso Tang Unavailable Unavailable Dayanara Bee MD Unavailable [phone] Min Lange MD Unavailable Unavailable Marlo Madsen MD Unavailable [phone] Mel Buckley RN Unavailable [phone] Douglas Cadet MD Unavailable Rosalba Pendleton MANAGER STRATEGIC SOURCING NODULIZER Unavaila ble Rosalba Pendleton APRN NODULIZER Unavaila ble Marlo Madsen MD Unavailable [phone] Abby Vasquez MD Unavailable Airam Hodges PA-C Unavailable [phone] Zain Quintana MD Unavailable [phone] Latricia Pettit PA-C Unavailable [phone] Torri Francois MD Unavailable [phone] Abhishek Acevedo PA-C Unavailable [phone] Encounter Details Date Type Department Care Team (Late st Contact Info) Description 10/13/2023 MyC Medical Advice [facility] [address] [place] [phone] Vivian Carter Social History Tobacco Use Types [...] Assigned at Female 10/31/2021 7:59 AM INTERVENTIONAL TECHNOLOGIST Legal Sex Female 10:14 AM INTERVENTIONAL TECHNOLOGIST Gender Identity Female 10/31/2021 7:59 AM INTERVENTIONAL TECHNOLOGIST Sexual Orientation Straight 10/31/2021 7: 59 AM INTERVENTIONAL TECHNOLOGIST documented as of this encounter Plan of Treatment Upcoming Encounters Date Type Department Care Team (Late Contact Info) Description 01/11/2025 9:00 AM CDT Virtual Visit [facility] [address]rd [place] [phone] Rosalba Pendleton APRN [address] [id number] [place] [address] 05/01/2025 10:00 AM CDT Office Visit [facility] [place] [address] [phone] Abhishek Acevedo PA-C 5963 [facility] 103 [place] [address] 05/23/2025 10:40 AM CDT Virtual Visit [facility] [address] [place] [phone] Abby Vasquez MD [address] [place] [address] documented as of this encounter Visit Diagnoses Not on filedocumented in this encounter Additional Health Concerns Assessment Noted Time PHQ-9 Depression Total Score: 12 023 8:53 AM CDT documented as of this encounter Care Teams Boiler Installer Relationship Specialty Start Date End Date Monty Musa MD PCP - General Family Medicine 08/13/21 Alfonso Tang Family Practice 08/13/21 Dayanara Bee MD [address] 349365 Pediatrics 12/26/14 Min Lange MD [address] [address] Neurology 03/30/16 Marlo Madsen MD [address] 958955 Cardiology 10/27/16 Mel Buckley, RN Nurse Coordinator Physical Medicine and Rehabilitation 12/02/16 Douglas Cadet MD Gastroenterology 08/13/21 Rosalba Pendleton APRN NODULIZER [id number] [place] [address] Nurse Practitioner Neurology 09/05/21 Rosalba Pendleton APRN NODULIZER [address] [id number] [address] Assigned Neuroscience Provider 11/09/21 10/04/24 Marlo Madsen MD [address] [address] Assigned Heart and Vascular Provider 03/14/22 Abby Vasquez MD [address] [place] [address]202 Gastroenterology 07/16/22 Airam Hodges PA-C [address] [place] [address]274 Physician Telecom Billing Analyst Surgery 07/19/23 Zain Quintana MD [address] [place] [address] 31581 Assigned Surgical Provider 10/07/23 Latricia Pettit PA-C [address] [place] [address] Assigned Gastroenterology Provider 10/15/23 Torri Francois MD [address] [place] [address] 909295 Assigned Neuroscience Provider 10/05/24 11/04/24 Abhishek Acevedo PA-C [address] [address] Assigned Neuroscience Provider 11/05/24 documented as of this encounter
--- OUTSIDE RECORDS SUMMARY | 2024-12-11 12:15 | XMS_ITS | Encounter Summary ---
Author Organization [place] Address [address] [place] [address]. [place] [address] Care Team Providers Care Clinical Partner Name Role Phone Monty Musa MD Primary Care Provider Alfonso Tang Unavailable Unavailable Dayanara Bee MD Unavailable [phone] Min Lange MD Unavailable Unavailable Marlo Madsen MD Unavailable [phone] Mel Buckley RN Unavailable [phone] Douglas Cadet MD Unavailable Rosalba Pendlteon FABRIC WORKER SUPERVISOR NEEDLE BOARD REPAIRER Unavaila ble Rosalba Pendleton APRN NEEDLE BOARD REPAIRER Unavaila ble Marlo Madsen MD Unavailable [phone] Abby Vasquez MD Unavailable Airam Hodges PA-C Unavailable [phone] Zain Quintana MD Unavailable [phone] Latricia Pettit PA-C Unavailable [phone] Torri Francois MD Unavailable [phone] Abhishek Acevedo PA-C Unavailable [phone] Encounter Details Date Type Department Care Team (Late st Contact Info) Description 03/27/2024 MyC Medical Advice [facility] [address]rd [place] [phone] Ximena Belcher Social History Tobacco Use Types [...] Sex Assigned at Female 10/31/2021 7:59 AM PULPWOOD CONTRACTOR Legal Sex Female 10:14 AM PULPWOOD CONTRACTOR Gender Identity Female 10/31/2021 7:59 AM PULPWOOD CONTRACTOR Sexual Orientation Straight 10/31/2021 7: 59 AM PULPWOOD CONTRACTOR documented as of this encounter Plan of Treatment Upcoming Encounters Date Type Department Care Team (Late Contact Info) Description 01/11/2025 9:00 AM CDT Virtual Visit [facility] [address] [phone] Rosalba Pendleton APRN [address] [id number] [place] [address] 05/01/2025 10:00 AM CDT Office Visit [facility] [address] [phone] Abhishek Acevedo PA-C [address] [address] 05/23/2025 10:40 AM CDT Virtual Visit [facility] [address] [place] [phone] Abby Vasquez MD [address] [place] [address] documented as of this encounter Visit Diagnoses Not on filedocumented in this encounter Additional Health Concerns Assessment Noted Time PHQ-9 Depression Total Score: 12 024 12:52 PM PULPWOOD CONTRACTOR documented as of this encounter Care Teams Clinical Partner Relationship Specialty Start Date End Date Monty Musa MD PCP - General Family Medicine 08/13/21 Alfonso Tang Family Practice 08/13/21 Dayanara Bee MD [address] 050275 Pediatrics 12/26/14 Min Lange MD [address] [address] Neurology 03/30/16 Marlo Madsen MD [address] [phone] Cardiology 10/27/16 Mel Buckley, RN Nurse Coordinator Physical Medicine and Rehabilitation 12/02/16 Douglas Cadet MD Gastroenterology 08/13/21 Rosalba Pendleton APRN NEEDLE BOARD REPAIRER 909 [id number] [place] [address] Nurse Practitioner Neurology 09/05/21 Rosalba Pendleton APRN NEEDLE BOARD REPAIRER 909 [id number] [place] [address] Assigned Neuroscience Provider 11/09/21 10/04/24 Marlo Madsen MD [address] [address] Assigned Heart and Vascular Provider 03/14/22 Abby Vasquez MD [address] [place] [address] Gastroenterology 07/16/22 Airam Hodges PA-C [address] [place] [address] Physician Beam Racker Surgery 07/19/23 Zain Quintana MD [address] [place] [address] Assigned Surgical Provider 10/07/23 Latricia Pettit PA-C [address] [place] [address] Assigned Gastroenterology Provider 10/15/23 Torri Francois MD [address] [place] [address] 752155 Assigned Neuroscience Provider 10/05/24 11/04/24 Abhishek Acevedo PA-C [address] [address] Assigned Neuroscience Provider 11/05/24 documented as of this encounter
--- OUTSIDE RECORDS SUMMARY | 2024-12-11 12:15 | XMS_ITS | Encounter Summary ---
Author Organization [place] Address [address] [place] [address]. [place] [address] Care Team Providers Care Radial Drill Press Operator Name Role Phone Monty Musa MD Primary Care Provider Alfonso Tang Unavailable Unavailable Dayanara Bee MD Unavailable [phone] Min Lange MD Unavailable Unavailable Marlo Madsen MD Unavailable [phone] Mel Buckley RN Unavailable [phone] Douglas Cadet MD Unavailable Rosalba Pendleton OUTPATIENT FACILITY PHYSICAL THERAPIST COMPUTER ENGINEERING PROFESSOR Unavaila ble Rosalba Pendleton APRN COMPUTER ENGINEERING PROFESSOR Unavaila ble Marlo Madsen MD Unavailable [phone] Abby Vasquez MD Unavailable Airam Hodges PA-C Unavailable [phone] Zain Quintana MD Unavailable [phone] Latricia Pettit PA-C Unavailable [phone] Torri Francois MD Unavailable [phone] Abhishek Acevedo PA-C Unavailable [phone] Encounter Details Date Type Department Care Team (Late st Contact Info) Description 11/11/2023 MyC Medical Advice [facility] Gastro[facility]ology [facility] [address] [place] [phone] Vivian Carter Social History Tobacco Use Types [...] Sex Assigned at Female 10/31/2021 7:59 AM FUR DYER Legal Sex Female 10:14 AM FUR DYER Gender Identity Female 10/31/2021 7:59 AM FUR DYER Sexual Orientation Straight 10/31/2021 7: 59 AM FUR DYER documented as of this encounter Plan of Treatment Upcoming Encounters Date Type Department Care Team (Late st Contact Info) Description 01/11/2025 9:00 AM CDT Virtual Visit [facility] [address]rd [place] [phone] Rosalba Pendleton APRN [address] [id number] [place] [address] 05/01/2025 10:00 AM CDT Office Visit [facility] [place] [address] [phone] Abhishek Acevedo PA-C 1663 [facility] 103 [place] [address] 05/23/2025 10:40 AM CDT Virtual Visit [facility] [address] [place] [phone] Abby Vasquez MD [address] [place] [address] documented as of this encounter Visit Diagnoses Not on filedocumented in this encounter Additional Health Concerns Assessment Noted Time PHQ-9 Depression Total Score: 12 024 12:52 PM FUR DYER documented as of this encounter Care Teams Radial Drill Press Operator Relationship Specialty Start Date End Date Monty Musa MD PCP - General Family Medicine 08/13/21 Alfonso Tang Family Practice 08/13/21 Dayanara Bee MD [address] 421415 Pediatrics 12/26/14 Min Lange MD [address] [address] Neurology 03/30/16 Marlo Madsen MD [address] 634775 Cardiology 10/27/16 eMl Buckley, RN Nurse Coordinator Physical Medicine and Rehabilitation 12/02/16 Douglas Cadet MD Gastroenterology 08/13/21 Rosalba Pendleton APRN COMPUTER ENGINEERING PROFESSOR [address] [id number] [place] [address] Nurse Practitioner Neurology 09/05/21 Rosalba Pendleton APRN COMPUTER ENGINEERING PROFESSOR 909 [id number] [address] Assigned Neuroscience Provider 11/09/21 10/04/24 Marlo Madsen MD [address] [address] Assigned Heart and Vascular Provider 03/14/22 Abby Vasquez MD [address] [place] [address] Gastroenterology 07/16/22 Airam Hodges PA-C [address] [place] [address] Physician Environmental Services Floor Tech Surgery 07/19/23 Zain Quintana MD [address] [place] [address] Assigned Surgical Provider 10/07/23 Latricia Pettit PA-C [address] [place] [address] Assigned Gastroenterology Provider 10/15/23 Torri Francois MD [address] [place] [address] 708595 Assigned Neuroscience Provider 10/05/24 11/04/24 Abhishek Acevedo PA-C [address] [address] Assigned Neuroscience Provider 11/05/24 documented as of this encounter
--- OUTSIDE RECORDS SUMMARY | 2024-12-11 12:15 | XMS_ITS | Encounter Summary ---
Author Organization [place] Address [address] [place] [address]. [place] [address] Care Team Providers Care Music Store Manager Name Role Phone Monty Musa MD Primary Care Provider Alfonso Tang Unavailable Unavailable Daaynara Bee MD Unavailable [phone] Min Lange MD Unavailable Unavailable Marlo Madsen MD Unavailable [phone] Mel Buckley RN Unavailable [phone] Douglas Cadet MD Unavailable Rosalba Pendleton REAMING MACHINE TENDER PAINTER TUMBLING BARREL Unavaila ble Rosalba Pendleton APRN PAINTER TUMBLING BARREL Unavaila ble Marlo Madsen MD Unavailable [phone] Abby Vasquez MD Unavailable Airam Hodges PA-C Unavailable [phone] Zain Quintana MD Unavailable [phone] Latricia Pettit PA-C Unavailable [phone] Torri Francois MD Unavailable [phone] Abhishek Acevedo PA-C Unavailable [phone] Encounter Details Date Type Department Care Team (Late st Contact Info) Description 03/17/2024 MyC Medical Advice [facility] Gastroenterology [facility] [address] [place] [phone] Tereza Tsai MA Social History Tobacco Use [...] Sex Assigned at Female 10/31/2021 7:59 AM FILTER CLOTH MAKER Legal Sex Female 10:14 AM FILTER CLOTH MAKER Gender Identity Female 10/31/2021 7:59 AM FILTER CLOTH MAKER Sexual Orientation Straight 10/31/2021 7: 59 AM FILTER CLOTH MAKER documented as of this encounter Plan of Treatment Upcoming Encounters Date Type Department Care Team (Late st Contact Info) Description 01/11/2025 9:00 AM CDT Virtual Visit [facility] Neurology [facility] [address] [place] [phone] Rosalba Pendleton APRN [id number] [place] [address] 05/01/2025 10:00 AM CDT Office Visit [facility] [address] [phone] Abhishek Acevedo PA-C [address] [id number] 05/23/2025 10:40 AM CDT Virtual Visit [facility]astro[facility]ology [facility] [address] [place] [phone] Abby Vasquez MD [address] [place] [address] documented as of this encounter Visit Diagnoses Not on filedocumented in this encounter Additional Health Concerns Assessment Noted Time PHQ-9 Depression Total Score: 12 024 12:52 PM FILTER CLOTH MAKER documented as of this encounter Care Teams Music Store Manager Relationship Specialty Start Date End Date Monty Musa MD PCP - General Family Medicine 08/13/21 Alfonso Tang Family Practice 08/13/21 Dayanara Bee MD [address] 155755 Pediatrics 12/26/14 Min Lange MD [address] [address] Neurology 03/30/16 Marlo Madsen MD [address] 825835 Cardiology 10/27/16 Mel Buckley, RN Nurse Coordinator Physical Medicine and Rehabilitation 12/02/16 Douglas Cadet MD Gastroenterology 08/13/21 Rosalba Pendleton APRN PAINTER TUMBLING BARREL [address] [id number] [place] [address] Nurse Practitioner Neurology 09/05/21 Rosalba Pendleton APRN PAINTER TUMBLING BARREL [address] [id number] [place] [address] Assigned Neuroscience Provider 11/09/21 10/04/24 Marlo Madsen MD [address] [place] [address] 75 [place] [address] Assigned Heart and Vascular Provider 03/14/22 Abby Vasquez MD [address] [place] [address] Gastroenterology 07/16/22 Airam Hodges PA-C [address] [place] [address] Physician Golf Cart Assembler Surgery 07/19/23 Zain Quintana MD [address] [place] [address] Assigned Surgical Provider 10/07/23 Latricia Pettit PA-C [address] [place] [address] Assigned Gastroenterology Provider 10/15/23 Torri Francois MD [address] [place] [address] Assigned Neuroscience Provider 10/05/24 11/04/24 Abhishek Acevedo PA-C [address] [address] Assigned Neuroscience Provider 11/05/24 documented as of this encounter
--- OUTSIDE RECORDS SUMMARY | 2024-12-11 12:15 | XMS_ITS | Encounter Summary ---
Author Organization [place] Address [address] [place] [address]. [place] [address] Care Team Providers Care Bereavement Coordinator Name Role Phone Monty Musa MD Primary Care Provider Alfonso Tang Unavailable Unavailable Dayanara Bee MD Unavailable [phone] Min Lange MD Unavailable Unavailable Marlo Madsen MD Unavailable [phone] Mel Buckley RN Unavailable [phone] Douglas Cadet MD Unavailable Rosalba Pendleton WEB MERCHANT YOUTH LEADER Unavaila ble Rosalba Pendleton APRN YOUTH LEADER Unavaila ble Marlo Madsen MD Unavailable [phone] Abby Vasquez MD Unavailable Airam Hodges PA-C Unavailable [phone] Zain Quintana MD Unavailable [phone] Latricia Pettit PA-C Unavailable [phone] Torri Francois MD Unavailable [phone] Abhishek Acevedo PA-C Unavailable [phone] Encounter Details Date Type Department Care Team (Late st Contact Info) Description 03/27/2024 MyC Medical Advice [facility] Neurology Clinic [address] [place] [phone] Nishi Norton Social History Tobacco Use Types [...] Sex Assigned at Female 10/31/2021 7:59 AM HEAD MILLER Legal Sex Female 10:14 AM HEAD MILLER Gender Identity Female 10/31/2021 7:59 AM HEAD MILLER Sexual Orientation Straight 10/31/2021 7: 59 AM HEAD MILLER documented as of this encounter Plan of Treatment Upcoming Encounters Date Type Department Care Team (Late st Contact Info) Description 01/11/2025 9:00 AM CDT Virtual Visit [facility] Neu[facility] [address] [phone] Rosalba Pendleton, MAXIMILIANO [address] [id number] [place], [place] [address] 05/01/2025 10:00 AM CDT Office Visit [facility] [place] [address] [phone] Abhishek Acevedo PA-C 4263 [facility] 103 [place] [address] 05/23/2025 10:40 AM CDT Virtual Visit [facility]ology [facility] [address] [place] [phone] Abby Vasquez MD [address] [place] [address] documented as of this encounter Visit Diagnoses Not on filedocumented in this encounter Additional Health Concerns Assessment Noted Time PHQ-9 Depression Total Score: 12 024 12:52 PM HEAD MILLER documented as of this encounter Care Teams Bereavement Coordinator Relationship Specialty Start Date End Date Monty Musa MD PCP - General Family Medicine 08/13/21 Alfonso Tang Family Practice 08/13/21 Dayanara Bee MD [address] 933125 Pediatrics 12/26/14 Min Lange MD [address] [address] Neurology 03/30/16 Marlo Madsen MD [address] 109235 Cardiology 10/27/16 Mel Buckley, RN Nurse Coordinator Physical Medicine and Rehabilitation 12/02/16 Douglas Cadet MD Gastroenterology 08/13/21 Rosalba Pendleton APRN YOUTH LEADER 909 [facility] [id number] [place] [address] Nurse Practitioner Neurology 09/05/21 Rosalba Pendleton APRN YOUTH LEADER 909 [id number] [place] [address] Assigned Neuroscience Provider 11/09/21 10/04/24 Marlo Madsen MD [address] [address] Assigned Heart and Vascular Provider 03/14/22 Abby Vasquez MD [address] [place] [address] Gastroenterology 07/16/22 Airam Hodges PA-C [address] [place] [address] Sql Developer Surgery 07/19/23 Zain Quintana MD [address] [place] [address] 708285 Assigned Surgical Provider 10/07/23 Latricia Pettit PA-C [address] [place] [place] [address] Assigned Gastroenterology Provider 10/15/23 Torri Francois MD [address] [place] [address] 867875 Assigned Neuroscience Provider 10/05/24 11/04/24 Abhishek Acevedo PA-C [address] [address] Assigned Neuroscience Provider 11/05/24 documented as of this encounter
--- OUTSIDE RECORDS SUMMARY | 2024-12-11 12:15 | XMS_ITS | Encounter Summary ---
Author Organization [place] Address [address] [place] [address]. [place] [address] Care Team Providers Care Order Management Specialist Name Role Phone Monty Musa MD Primary Care Provider [phone] Alfonso Tang Unavailable Unavailable Dayanara Bee MD Unavailable [phone] Min Lange MD Unavailable Unavailable Marlo Madsen MD Unavailable [phone] Mel Buckley RN Unavailable [phone] Douglas Cadet MD Unavailable Rosalba Pendleton [employer] ARCHITECT LOAN REVIEW ANALYST Unavaila ble Rosalba Pendleton APRN LOAN REVIEW ANALYST Unavaila ble Marlo Madsen MD Unavailable [phone] Abby Vasquez MD Unavailable Airam Hodges PA-C Unavailable [phone] Zain Quintana MD Unavailable [phone] Latricia Pettit PA-C Unavailable [phone] Torri Francois MD Unavailable [phone] Abhishek Acevedo PA-C Unavailable [phone] Encounter Details Date Type Department Care Team (Late st Contact Info) Description 01/13/2024 MyC Medical Advice [facility] [address] [place] [phone] Miriam Yepez RN Social History Tobacco Use [...] Sex Assigned at Female 10/31/2021 7:59 AM FURNACE OPERATOR OIL OR GAS Legal Sex Female 10:14 AM FURNACE OPERATOR OIL OR GAS Gender Identity Female 10/31/2021 7:59 AM FURNACE OPERATOR OIL OR GAS Sexual Orientation Straight 10/31/2021 7: 59 AM FURNACE OPERATOR OIL OR GAS documented as of this encounter Plan of Treatment Upcoming Encounters Date Type Department Care Team (Late Contact Info) Description 01/11/2025 9:00 AM CDT Virtual Visit [facility] [address] [phone] Rosalba Pendleton APRN [address] [id number] [place] [address] 05/01/2025 10:00 AM CDT Office Visit [facility] [address] [phone] Abhishek Acevedo PA-C [address] [address] 05/23/2025 10:40 AM CDT Virtual Visit [facility] [address] [place] [phone] Abby Vasquez MD [address] [place] [address] documented as of this encounter Visit Diagnoses Not on filedocumented in this encounter Additional Health Concerns Assessment Noted Time PHQ-9 Depression Total Score: 12 024 12:52 PM FURNACE OPERATOR OIL OR GAS documented as of this encounter Care Teams Order Management Specialist Relationship Specialty Start Date End Date Monty Musa MD PCP - General Family Medicine 08/13/21 Alfonso aTng Family Practice 08/13/21 Dayanara Bee MD [address] 905275 Pediatrics 12/26/14 Min Lange MD [address] [address] Neurology 03/30/16 Marlo Madsen MD [address] 365585 Cardiology 10/27/16 Mel Buckley, RN Nurse Coordinator Physical Medicine and Rehabilitation 12/02/16 Douglas Cadet MD Gastroenterology 08/13/21 Rosalba Pendleton APRN LOAN REVIEW ANALYST 909 [facility]121CJ [place] [address] Nurse Practitioner Neurology 09/05/21 Rosalba Pendleton APRN LOAN REVIEW ANALYST 909 [facility]121[address] [place] [address] Assigned Neuroscience Provider 11/09/21 10/04/24 Marlo Madsen MD [address] [address] Assigned Heart and Vascular Provider 03/14/22 Abby Vasquez MD [address] [place] [address] Gastroenterology 07/16/22 Airam Hodges PA-C [address] [place] [address] Physician Roll Forming Machine Set Up Operator Surgery 07/19/23 Zain Quintana MD [address] [place] [address] Assigned Surgical Provider 10/07/23 Latricia Pettit PA-C [address] [place] [address] Assigned Gastroenterology Provider 10/15/23 Torri Francois MD [address] [place] [address] 333885 Assigned Neuroscience Provider 10/05/24 11/04/24 Abhishek Acevedo PA-C [address] [address] Assigned Neuroscience Provider 11/05/24 documented as of this encounter
[2024-12-11 12:43] VITALS: BP 136/90; PULSE 69; RESP 16; TEMP 36.8; O2SAT 98; BMI 28.2
--- NOTE | 2024-12-11 12:52 | CRLHL7_ITS ---
For Patients: As a result of the Century Cures Act, medical imaging exams and procedure reports are released immediately into your electronic medical record. You may view this report before your referring provider. If you have questions, please contact your health care provider. INDICATION: Leg pain and swelling TECHNIQUE: Ultrasound venous duplex lower left extremity. Compression venous exam was performed using guerrero-scale, color Doppler, and spectral Doppler analysis. COMPARISON: None. FINDINGS: Sonographic imaging demonstrates the left common femoral, deep femoral, superficial femoral, popliteal, posterior tibial and greater saphenous and the contralateral right common femoral veins to be fully compressible with normal color Doppler blood flow. IMPRESSION: Normal left lower extremity venous ultrasound, no sign of deep venous thrombosis. Dictated by Jeovany Caraballo MD @ 12/11/2024 1:51:03 PM (Electronically Signed)
--- NOTE | 2024-12-11 13:18 | ED_ITS ---
HPI - General Adult General Chief complaint: Extremity Pain/Injury, Lower Stated complaint: blood clot left leg? Time Seen by Provider: 12/11/24 12:35 History of Present Illness HPI narrative: This 34-year-old female comes in reporting some discomfort in her left lower extremity. She states that she was recently wearing some compression stockings because of varicose veins or edema in her leg. After wearing the stockings she is now has some tingling sensation and feels some discomfort up into her upper leg. She does not have any history of blood clot and arrives here with normal vital signs. She comes here the however concerned that she may have a blood clot in her leg. She does not report any chest pain or shortness of breath. She states that she wears compression stockings at the advice of her communication signals intelligence because she has autonomic dysfunction and sometimes feels light headed. The compression stockings help with return blood flow back to her heart. Related Data Home Medications ?Medication ?Instructions ?Recorded ?Confirmed erenumab-aooe 140 mg/mL 140 mg subcut MONTHLY 03/23/22 12/11/24 subcutaneous auto-injector (Aimovig Autoinjector) multivitamin with minerals 1 tab PO DAILY 03/23/22 12/11/24 (Hair,Skin and Nails tablet) polyethylene glycol 3350 17 17 g PO .Daily as needed PRN 03/23/22 11/17/24 gram/dose oral powder midodrine 5 mg tablet 5 mg PO TID 08/20/23 12/11/24 fludrocortisone 0.1 mg tablet 0.2 mg PO QDAY 10/25/23 12/11/24 linaclotide 290 mcg capsule 290 mcg PO QAM 09/07/24 12/11/24 (Linzess) magnesium PO DAILY 11/17/24 magnesium 500 mg tablet 1,000 mg PO DAILY 11/17/24 12/11/24 mometasone 0.1 % topical cream 0.1 applic topical BID PRN 11/17/24 12/11/24 zolmitriptan 5 mg disintegrating 5 mg PO BID PRN 11/17/24 12/11/24 tablet Previous Rx's ?Medication ?Instructions ?Recorded norethindrone (contraceptive) 0.35 0.35 mg PO QDAY #84 tabs 09/07/24 mg tablet duloxetine 30 mg capsule,delayed 30 mg PO QDAY #90 caps 11/17/24 release duloxetine 60 mg capsule,delayed 60 mg PO QDAY #90 caps 11/17/24 release (Cymbalta) levothyroxine 25 mcg tablet 25 mcg PO QDAY #90 tabs 11/17/24 ondansetron 4 mg disintegrating 4 mg PO Q6H PRN nausea and 11/17/24 tablet vomiting #30 tabs rosuvastatin 10 mg tablet 10 mg PO QDAY #90 tabs 11/17/24 clonazepam 0.5 mg tablet 0.5 mg PO .Daily as needed PRN 12/04/24 anxiety #10 tabs Allergies Allergy/AdvReac Type Severity Reaction Status Date / Time amoxicillin (From Augmentin) Allergy Unknown High B/P, Verified 11/17/24 10:20 diarrhea clavulanic acid (From Allergy Unknown High B/P, Verified 12/11/24 12:51 Augmentin) diarrhea hydrocodone (From Vicodin) Allergy Unknown Vomiting Verified 12/11/24 12:51 Review of Systems Status of ROS: Reports: 10 or more systems reviewed and unremarkable except as noted in History and below Narrative: Constitutional: No fevers, no weight gain or loss. Eyes: No discharge. No vision changes. HENT: No congestion, no sore throat, no ear pain. Cardiovascular: No chest pain, no palpitations. Respiratory: No shortness of breath, no wheezes, no cough. Gastrointestinal: No abdominal pain, no vomiting, no diarrhea. Genitourinary: No dysuria, no hematuria. Musculoskeletal: Normal range of motion. Skin: No rashes, no pruritis. Neurological: No dizziness, weakness, sensory change, speech change. Endo/Heme/Allergies: No bruising or bleeding. No polydipsia. Pysch: no suicidality, no anxiety, no insomnia. All other systems reviewed and are negative. PFSH PFSH Medical History Hereditary cancer-predisposing syndrome ?Z15.09 - Genetic susceptibility to other malignant neoplasm (ICD-10) High risk sexual behavior ?Z72.51 - High risk heterosexual behavior (ICD-10) Surgical History Status post cholecystectomy (03/23/18) ?Z90.49 - Acquired absence of other specified parts of digestive tract (ICD- 10) Status post breast reduction (2010) ?Z98.890 - Other specified postprocedural states (ICD-10) History of arthroscopy of left knee (2019) ?Z98.890 - Other specified postprocedural states (ICD-10) History of appendectomy (2005) ?Z90.49 - Acquired absence of other specified parts of digestive tract (ICD- 10) Family History (Updated 11/20/24 @ 08:35 by Sarah Mirza ~ CTA) Father Diabetes Heart disease High cholesterol Colon cancer Grandmother Diabetes Ovarian cancer Maternal Grandmother Heart disease Ovarian cancer Mother Heart disease High blood pressure High cholesterol Maternal Grandfather Stroke Heart disease Sister High cholesterol Ovarian cancer Aunt Seizure disorder Breast cancer Uncle Stroke Other ASCVD (arteriosclerotic cardiovascular disease) FH: breast cancer in second degree relative when <50 years old Social History (Updated 11/20/24 @ 08:38 by Sarah Mirza ~ CTA) Narrative: Disabled No children Never smoked What is your current living situation?: I presently have a place to live Problems where you live: no known problems In the past 12 months, utilities in danger of being shut off: no In past 12 months, lack of transportation kept you from medical appts, meetings, work, or getting things needed for daily living: no In the past 12 mos, have been you worried that your food would run out before you had money to buy more?: never true In the past 12 mos, the food you bought just didn't last and you didn't have money to buy more?: never true Smoking Status: Never smoker Do you use any of these nicotine containing products: None Second hand tobacco smoke exposure: No How often do you have a drink containing alcohol: monthly or less How many standard drinks containing alcohol do you have on a typical day: 1 or 2 How often do you have six or more drinks on one occasion: Never AUDIT-C Alcohol total score: 1 Non-prescribed substance use: marijuana (any form) Non-prescribed substance use details: thc gummy once a month How often does anyone, including family, friends and others, physically hurt you : never How often does anyone, including family, friends and others, insult or talk down to you: never How often does anyone, including family, friends and others, threaten you with harm: never How often does anyone, including family, friends and others, scream or curse at you: never service: No Exam Narrative: Exam Narrative: Constitutional: Well-developed, well-nourished, no acute distress. HEENT: Normocephalic, atraumatic. Neck: Normal range of motion. Nontender. Supple. Heart: Regular. No murmurs. Normal rate. Intact distal pulses. Lungs: Clear to auscultation. No chest discomfort. No wheezes, rhonchi, or rales. Abdomen: Normal bowel sounds. Nontender. No rebound tenderness. Genitalia: Deferred. Back: No midline tenderness. Normal range of motion. Extremities: Normal range of motion. No injury. No unilateral swelling or discoloration. Skin: Intact. No rash. Warm. No erythema or pallor. Neurologic: No altered sensation. No weakness. Alert and oriented. Psychiatric: No suicidality. No anxiety or depression. No insomnia. Nursing notes and vitals signs are reviewed. Const: Vital Signs, click to edit/add: Vital Signs - 24 hr 12/11/24 12:43 Temperature 98.2 F Pulse Rate [Pulse Oximeter] 69 Respiratory Rate 16 Blood Pressure [Ri t Upper Arm] 136/90 H Pulse Oximetry 98 Oxygen Delivery Me thod Room Air Course Vital Signs Vital signs: Initial Vital Signs Temperature 98.2 F 12/11/24 12:43 Temperature Source Temporal Artery Scan 12/11/24 12:43 Pulse Rate 69 12/11/24 12:43 Respiratory Rate 16 12/11/24 12:43 Blood Pressure 136/90 H 12/11/24 12:43 Blood Pressure Mean 105 12/11/24 12:43 Blood Pressure Position Sitting 12/11/24 12:43 Pulse Oximetry 98 12/11/24 12:43 Oxygen Delivery Method Room Air 12/11/24 12:43 Vital Signs Temperature 98.2 F 12/11/24 12:43 Pulse Rate 69 12/11/24 12:43 Respiratory Rate 16 12/11/24 12:43 Blood Pressure 136/90 H 12/11/24 12:43 Pulse Oximetry 98 12/11/24 12:43 Oxygen Delivery Method Room Air 12/11/24 12:43 Temperature 98.2 F 12/11/24 12:43 Pulse Rate 69 12/11/24 12:43 Respiratory Rate 16 12/11/24 12:43 Blood Pressure 136/90 H 12/11/24 12:43 Pulse Oximetry 98 12/11/24 12:43 Oxygen Delivery Method Room Air 12/11/24 12:43 Medical Decision Making MDM Narrative Medical decision making narrative: This patient comes in wanting to rule out a blood clot in her left lower leg because of symptoms as described above. An ultrasound is obtained and appears completely normal. The patient's exam is also very reassuring. She is okay to be discharged home. I advised her to follow-up with her communication signals intelligence and stated that perhaps the compression stockings are compressing too much in causing some paresthesias. Discharge Plan Discharge Clinical Impression: Left leg paresthesias Patient Disposition: Home, Self-Care Condition: Stable Additional Instructions: Follow-up with communication signals intelligence regarding ongoing management of autonomic dysfunction and the use of compression stockings. Follow up with MD otherwise as needed or return if worsening. Prescriptions: No Action Hair,Skin and Nails Tablet 1 tab PO DAILY polyethylene glycol 3350 17 gram/dose powder 17 g PO .Daily as needed PRN Aimovig Autoinjector 140 mg/mL auto-injector 140 mg subcut MONTHLY mometasone 0.1 % cream 0.1 applic topical BID PRN Linzess 290 mcg capsule 290 mcg PO QAM norethindrone (contraceptive) 0.35 mg tablet 0.35 mg PO QDAY Qty: 84 3RF Rx Instructions: start day 1 of menstrual cycle zolmitriptan 5 mg tablet,disintegrating 5 mg PO BID PRN midodrine 5 mg tablet 5 mg PO TID Rx Instructions: do not give last dose of day after 6PM or within 4 hrs of bedtime fludrocortisone 0.1 mg tablet 0.2 mg PO QDAY magnesium 500 mg tablet PO DAILY Patient Comments: 1-2 tablets as needed for IBS magnesium 500 mg tablet 1,000 mg PO DAILY rosuvastatin 10 mg tablet 10 mg PO QDAY Qty: 90 3RF duloxetine 30 mg capsule,delayed release(DR/EC) 30 mg PO QDAY Qty: 90 3RF duloxetine [Cymbalta] 60 mg capsule,delayed release(DR/EC) 60 mg PO QDAY Qty: 90 3RF Patient Comments: takes along with 30mg capsules daily levothyroxine 25 mcg tablet 25 mcg PO QDAY Qty: 90 3RF ondansetron 4 mg tablet,disintegrating 4 mg PO Q6H PRN (Reason: nausea and vomiting) Qty: 30 2RF clonazepam 0.5 mg tablet 0.5 mg PO .Daily as needed PRN (Reason: anxiety) Qty: 10 1RF Rx Instructions: Should last a full month Follow Up/Referrals: Sean Musa MD [Primary Care Provider] - Stand Alone Forms: [employer] Info Instructions
--- OUTSIDE RECORDS SUMMARY | 2024-12-11 13:41 | XMS_ITS | Encounter Summary ---
Author Organization [facility] Address [address] [place] [address]. [place] [address] Care Team Providers Care Printing Machine Operator Name Role Phone Monty Musa MD Primary Care Provider [phone] Alfonso Tang Unavailable Unavailable Dayanara Bee MD Unavailable [phone] Min Lange MD Unavailable Unavailable Marlo Madsen MD Unavailable [phone] Mel Buckley RN Unavailable [phone] Douglas Cadet MD Unavailable Rosalba Pendleton INFANTRY ASSAULTMAN CORE BLOWER OPERATOR Unavaila ble Rosalba Pendleton APRN CORE BLOWER OPERATOR Unavaila ble Marlo Madsen MD Unavailable [phone] Abby Vasquez MD Unavailable Airam Hodges PA-C Unavailable [phone] Zain Quintana MD Unavailable [phone] Latricia Pettit PA-C Unavailable [phone] Torri Francois MD Unavailable [phone] Abhishek Acevedo PA-C Unavailable [phone] Encounter Details Date Type Department Care Team (Late st Contact Info) Description 09/15/2024 MyC Medical Advice [facility] [address] [place] [address] Dandre Fuentes, [address] [place] [address] Social History Tobacco Use Types Packs/Day Years [...] in an abandoned building, in an overnight mcfp, or couch-surfing.) Yes 05/31/2024 Are you worried [...] Sex Assigned at Female 10/31/2021 7:59 AM THEATRICAL AGENT Legal Sex Female 10:14 AM THEATRICAL AGENT Gender Identity Female 10/31/2021 7:59 AM THEATRICAL AGENT Sexual Orientation Straight 10/31/2021 7: 59 AM THEATRICAL AGENT documented as of this encounter Plan of Treatment Upcoming Encounters Date Type Department Care Team (Late st Contact Info) Description 01/11/2025 9:00 AM CDT Virtual Visit [facility] [address] 3rd [place] [phone] Rosalba Pendleton, INFANTRY ASSAULTMAN CORE BLOWER OPERATOR [address] [place] [address] [id number] [place], [place] [id number] 05/01/2025 10:00 AM CDT Office Visit [facility] [place] [address] [phone] Abhishek Acevedo PA-C [address] [facility] [address] [place], [place] [phone] 05/23/2025 10:40 AM CDT Virtual Visit [facility] Gastroenterology [facility] [address] [place] [phone] Abby Vasquez MD [address] [place] [address] [id number] documented as of this encounter Visit Diagnoses Not on filedocumented in this encounter Additional Health Concerns Assessment Noted Time PHQ-9 Depression Total Score: 12 024 12:52 PM THEATRICAL AGENT documented as of this encounter Care Teams Printing Machine Operator Relationship Specialty Start Date End Date Monty Musa MD PCP - General Family Medicine 08/13/21 Alfonso Tang Family Practice 08/13/21 Dayanara Bee MD [address] [address] Pediatrics 12/26/14 Min Lange MD [address] [address] Neurology 03/30/16 Marlo Madsen MD [address] [place] [address] Cardiology 10/27/16 Mel Buckley, RN Nurse Coordinator Physical Medicine and Rehabilitation 12/02/16 Douglas Cadet MD Gastroenterology 08/13/21 Rosalba Pendleton APRN CORE BLOWER OPERATOR [address] [place] [address] Nurse Practitioner Neurology 09/05/21 Rosalba Pendleton APRN CORE BLOWER OPERATOR [address] [place] [address] Assigned Neuroscience Provider 11/09/21 10/04/24 Marlo Madsen MD [address] [place] [address] Assigned Heart and Vascular Provider 03/14/22 Abby Vasquez MD [address] [place] [address] Gastroenterology 07/16/22 Airam Hodges PA-C [address] [place] [address] [phone] Physician Wet Process Miller Head Assistant Surgery 07/19/23 Zain Quintana MD [address] [place], [place] 196[address] Assigned Surgical Provider 10/07/23 Latricia Pettit PA-C [address] [place] [address] [phone] Assigned Gastroenterology Provider 10/15/23 Torri Francois MD [address] [place] [address] [phone] Assigned Neuroscience Provider 10/05/24 11/04/24 Abhishek Acevedo PA-C [address] [phone] Assigned Neuroscience Provider 11/05/24 documented as of this encounter
--- OUTSIDE RECORDS SUMMARY | 2024-12-11 13:41 | XMS_ITS | Encounter Summary ---
Author Organization [facility] Address [address] [place] [address]. [place] [address] Care Team Providers Care Director Telehealth Name Role Phone Monty Musa MD Primary Care Provider [phone] Alfonso Tang Unavailable Unavailable Dayanara Bee MD Unavailable [phone] Min Lange MD Unavailable Unavailable Marlo Madsen MD Unavailable [phone] Mel Buckley RN Unavailable [phone] Douglas Cadet MD Unavailable Rosalba Pendleton LOCK TENDER CHIEF OPERATOR WELL SERVICE DERRICK WORKER Unavaila ble Rosalba Pendleton APRN WELL SERVICE DERRICK WORKER Unavaila ble Marlo Madsen MD Unavailable [phone] Abby Vasquez MD Unavailable Airam Hodges PA-C Unavailable [phone] Zain Quintana MD Unavailable [phone] Latricia Pettti PA-C Unavailable [phone] Torri Francois MD Unavailable [phone] Abhishek Acevedo PA-C Unavailable [phone] Encounter Details Date Type Department Care Team (Late st Contact Info) Description 05/29/2024 MyC Medical Advice [facility]rology [facility] [place] [phone] [place] [address] Torri Francois MD [address] [place] [address] Social History Tobacco Use Types Packs/Day Years [...] Sex Assigned at Female 10/31/2021 7:59 AM WASTEWATER TECHNICIAN Legal Sex Female 10:14 AM WASTEWATER TECHNICIAN Gender Identity Female 10/31/2021 7:59 AM WASTEWATER TECHNICIAN Sexual Orientation Straight 10/31/2021 7: 59 AM WASTEWATER TECHNICIAN documented as of this encounter Plan of Treatment Upcoming Encounters Date Type Department Care Team (Late st Contact Info) Description 01/11/2025 9:00 AM CDT Virtual Visit [facility] [address] 3rd [place] [phone] Rosalba Pendleton APRN [address] [id number] [place], [place] [address] 05/01/2025 10:00 AM CDT Office Visit [facility] [place] [address] [phone] Abhishek Acevedo PA-C [address]63 [facility] [address] [place], [place] [phone] 05/23/2025 10:40 AM CDT Virtual Visit [facility] Gastro[facility]ology [facility] [address] [place] [phone] Abby Vasquez MD [address] [place] [address] [phone] documented as of this encounter Visit Diagnoses Not on filedocumented in this encounter Additional Health Concerns Assessment Noted Time PHQ-9 Depression Total Score: 12 024 12:52 PM WASTEWATER TECHNICIAN documented as of this encounter Care Teams Director Telehealth Relationship Specialty Start Date End Date Monty Musa MD PCP - General Family Medicine 08/13/21 Alfonso Tang Family Practice 08/13/21 Dayanara Bee MD [address] [address] Pediatrics 12/26/14 Min Lange MD [address] [address] Neurology 03/30/16 Marlo Madsen MD [address] [place] [address] Cardiology 10/27/16 Mel Buckley, RN Nurse Coordinator Physical Medicine and Rehabilitation 12/02/16 Douglas Cadet MD Gastroenterology 08/13/21 Rosalba Pendleton APRN WELL SERVICE DERRICK WORKER [address] [place] [address] [phone] Nurse Practitioner Neurology 09/05/21 Rosalba Pendleton APRN WELL SERVICE DERRICK WORKER [address] [place] [address] [phone] Assigned Neuroscience Provider 11/09/21 10/04/24 Marlo Madsen MD [address] [place] [address] Assigned Heart and Vascular Provider 03/14/22 Abby Vasquez MD [address] [place] [address] [phone] Gastroenterology 07/16/22 Airam Hodges PA-C [address] [place] [address] Physician Programs Assistant Surgery 07/19/23 Zain Quintana MD [address] [place] [address] Assigned Surgical Provider 10/07/23 Latricia Pettit PA-C [address] [place] [address] Assigned Gastroenterology Provider 10/15/23 Torri Francois MD [address] [place] [address] [phone] Assigned Neuroscience Provider 10/05/24 11/04/24 Abhishek Acevedo PA-C [address] [address] Assigned Neuroscience Provider 11/05/24 documented as of this encounter
--- OUTSIDE RECORDS SUMMARY | 2024-12-11 13:41 | XMS_ITS | Encounter Summary ---
Author Organization [place] Address [address] [place] [address]. [place] [address] Care Team Providers Care Adding Machine Mechanic Name Role Phone Alfosno Tang Primary Care Provider Unavailabl Monty Olvera MD Primary Care Provider Alfonso Tang Unavailable Unavailable Dayanara Bee MD Unavailable [phone] Min Lange MD Unavailable Unavailable Marlo Madsen MD Unavailable [phone] Mel Buckley RN Unavailable [phone] Douglas Cadet MD Unavailable [phone] Rosalba Pendleton APRN BEHAVIORAL SERVICES TECH Unavaila ble Rosalba Pendleton APRN BEHAVIORAL SERVICES TECH Unavaila ble Douglas [facility] MD Unavailable [phone] Marlo Madsen MD Unavailable [phone] Abby Vasquez MD Unavailable Abby Vasquez MD Unavailable Airam Hodges PA-C Unavailable [phone] Zain Quintana MD Unavailable [phone] Latricia Pettit PA-C Unavailable [phone] Torri Francois MD Unavailable Abhishek Acevedo PA-C Unavailable [phone] Encounter Details Date Type Department Care Team (Late st Contact Info) Description 04/02/2015 MyC Medical Advice [facility] Heart [facility] 4th Floor, Clinic 4B [facility] [address] [place] [phone] Marlo Madsen MD [address] [place] [address] [phone] Social History Tobacco Use Types Packs/Day Years Used Date Smoking Tobacco: Never Smokeless Tobacco: Never Alcohol Use Standard Drinks/Week Comments No 0 (1 standard drink = 0.6 oz pur e alcohol) Comments No Sex and Gender Information Value Date Recorded Sex Assigned at Female 10/31/2021 7:59 AM ENGRAVER LETTER Legal Sex Female 10:14 AM ENGRAVER LETTER Gender Identity Female 10/31/2021 7:59 AM ENGRAVER LETTER Sexual Orientation Straight 10/31/2021 7: 59 AM ENGRAVER LETTER documented as of this encounter Plan of Treatment Upcoming Encounters Date Type Department Care Team (Late st Contact Info) Description 01/11/2025 9:00 AM CDT Virtual Visit [facility] Neurology Clinic [address]rd [place] [phone] Rosalba Pendleton, MAXIMILIANO BEHAVIORAL SERVICES TECH 9 [facility] [id number] [place] [address] 05/01/2025 10:00 AM CDT Office Visit [facility] [place] [address] [phone] Abhishek Acevedo PA-C [address] [facility] [address] [place] [address] 05/23/2025 10:40 AM CDT Virtual Visit [facility] Gastroenterology Clinic [address] 4th [place] [phone] Abby Vasquez MD 909 [place] [address] documented as of this encounter Visit Diagnoses Not on filedocumented in this encounter Additional Health Concerns Infection Onset Date Last Indicated Resolved Time Rule Out COVID-19 04/03/2023 04/03/2023 04/04/2023 6:30 PM CDT documented as of this encounter Care Teams Adding Machine Mechanic Relationship Specialty Start Date End Date Alfonso Tang PCP - General Family Practice 09/04/13 08/12/21 Monty Musa MD PCP - General Family Medicine 08/13/21 Alfonso Tang Family Practice 08/13/21 Dayanara Bee MD [address] [address] Pediatrics 12/26/14 Min Lange MD [address] [address] Neurology 03/30/16 Marlo Madsen MD [address] [address] Cardiology 10/27/16 Mel Buckley, RN Nurse Coordinator Physical Medicine and Rehabilitation 12/02/16 Douglas [facility] MD Gastroenterology 08/13/21 Rosalba Pendleton, PORT CDL A DRIVER BEHAVIORAL SERVICES TECH 909 [facility] [id number] [place] [address] Nurse Practitioner Neurology 09/05/21 Rosalba Pendleton APRN BEHAVIORAL SERVICES TECH [address] [place] [address] [id number] [place], [place] 813235 Assigned Neuroscience Provider 11/09/21 10/04/24 Douglas Cadet MD Assigned Gastroenterology Provider 03/14/22 09/03/23 Marlo Madsen MD [address] [place] [address] 75 [place], [place] 890705 Assigned Heart and Vascular Provider 03/14/22 Abby Vasquez MD [address] [place] [address] 296905 Gastroenterology 07/16/22 Abby Vasquez MD [address] [place] [address] 433965 Assigned PCP 09/26/22 10/06/23 Airam Hodges PA-C 500 [place], [place] 412805 Physician Picture Booker Surgery 07/19/23 Zain Quintana MD [address] [place] [address] 926315 Assigned Surgical Provider 10/07/23 Latricia Pettit PA-C [address] [place] [address] Assigned Gastroenterology Provider 10/15/23 oTrri Francois MD [address] [place] [address] Assigned Neuroscience Provider 10/05/24 11/04/24 Abhishek Acevedo PA-C [address] [place] [address] Assigned Neuroscience Provider 11/05/24 documented as of this encounter
--- OUTSIDE RECORDS SUMMARY | 2024-12-11 13:41 | XMS_ITS | Encounter Summary ---
Author Organization [place] Address [address] [place] [address]. [place] [address] Care Team Providers Care Student Truck Driver Name Role Phone Monty Msua MD Primary Care Provider Alfonso Tang Unavailable Unavailable Dayanara Bee MD Unavailable [phone] Min Lange MD Unavailable Unavailable Marlo Madsen MD Unavailable [phone] Mel Buckley RN Unavailable [phone] Douglas Cadet MD Unavailable Rosalba Pendleton APRN COMPRESSOR STATION OPERATOR Unavaila ble Marlo Madsen MD Unavailable [phone] Abby Vasquez MD Unavailable Airam Hodges PA-C Unavailable [phone] Zain Quintana MD Unavailable [phone] Latricia Pettit PA-C Unavailable [phone] Abhishek Acevedo PA-C Unavailable [phone] Reason for Referral * Diagnostic Imaging XR (Routine) - Pending Review Specialty Diagnoses / Procedures Referred By Contgeovany t Referred To Contact Radiology. Diagnoses Constipation, unspecified constipation type Procedures X-ray KUB Abby Vasquez MD 909 [place] [address] Phone: tel: fax: Referral ID Status Reason Start Date Expiration Date V isits Requested Visits Authorized [id number] Pending Review 11/15/2024 11/15/2025 1 1 ASSEMBLER Reason for Visit * Reason Comments Follow Up Encounter Details Date Type Department Care Team (Latest Contact Info) Description 11/15/2024 11:20 AM RAIL ASSEMBLER Office Visit [facility] Gastroenterology Clinic [address] 4th [place] [address] Abby Vasquez MD [address] [place] [address] Constipation, unspecified constipation type (Primary Dx); Pelvic [...] an abandoned building, in an overnight senior care, or couch-surfing.) Yes 05/31/2024 Are you worried [...] Assigned at Female 10/31/2021 7:59 AM RAIL ASSEMBLER Legal Sex Female 10:14 AM RAIL ASSEMBLER Gender Identity Female 10/31/2021 7:59 AM RAIL ASSEMBLER Sexual Orientation Straight 10/31/2021 7: 59 AM RAIL ASSEMBLER documented as of this encounter Last Filed Vital Signs Vital Sign Reading Time Taken Comments Blood Pressure 136/95 11/15/2024 11:17 AM RAIL ASSEMBLER Pulse 62 11/15/2024 11:17 AM RAIL ASSEMBLER Temperature - - Respiratory Rate - - Oxygen Saturation 100% 11/15/2024 11:17 AM RAIL ASSEMBLER Inhaled Oxygen Concentration - - Weight 79.5 kg (175 lb 3.2 oz) 11/15/2024 11:17 AM RAIL ASSEMBLER Height 167.6 cm (5' 6) 11/15/2024 11:17 AM RAIL ASSEMBLER Body Mass Index 28.28 11/15/2024 11:17 AM RAIL ASSEMBLER documented in this encounter Patient Instructions * Patient Instructions* Abby Vasquez MD - 11/15/2024 11:20 AM RAIL ASSEMBLER -Repeat XR to assess stool burden: If [...] scan or other imaging study, please call [phone] to have this scheduled If you have any questions, please don't hesitate to contact me through our GI RN Assistant Financial Accountant, Sheri Edmonds, at . ASSEMBLER ASSEMBLER documented in this encounter Progress Notes * [...] of th week. Stools are described as Glasgow Stool Scale Type 4. This pattern is [...] of large bowel movements most consistent with Glasgow Stool Scale Type 4. She then will [...] and Dr. Vasquez prior to moving to [place] in 2017 after getting . She moved back to [place] recently and was seen by Dr. 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 Briefly, she was started on Linzess around 2013 for chronic constipation which improved her constipation and resulted in BMs every other day. In 2016, she moved to [place] and stopped Linzess as she felt her [...] polyps. She subsequently had another colonoscopy in [place] which she reports was normal. In early 2020, she had a colonoscopy in [place] which was reported to be negative for adenoma. We do not have these reports at this time. Esophageal Questionnaire(s) BEDQ Questionnaire No data to display No data to display Eckardt Questionnaire No data to display Promis 10 Questionnaire No data to display STUDIES & PROCEDURES: EGD: Colonoscopy: 10/2021 [facility] 11/2016 Findings: Two semi-sessile polyps were [...] patient, of which > 50% was spent [id number] with the patient in education, counseling, and addressing questions regarding the above diagnoses. An additional 15 minutes was spent on the date of the encounter doing chart review (notes, labs, imaging reports, endoscopic and pathology reports, clinical status events, medications, etc) documentation, care coodination,and arranging of care plan with the fellow. ASSEMBLER documented in this encounter Nursing Notes * [...] Blood pressure elevated. Provider notified. Recheck offered. ASSEMBLER documented in this encounter Plan of Treatment Upcoming Encounters Date Type Department Care Team (Late st Contact Info) Description 01/11/2025 9:00 AM CDT Virtual Visit [facility] Neurology Clinic [address] 3rd [place] [phone] Rosalba Pendleton APRN [address] [id number] [place] [address] 05/01/2025 10:00 AM CDT Office Visit [facility] [place] 6327 [facility] [address] [place] [phone] Abhishek Acevedo PA-C 4006 [facility] 103 [place], [place] [id number] 05/23/2025 10:40 AM CDT Virtual Visit [facility] Gastroenterology Clinic [address] [address] Abby Vasquez MD [address] [place] [address] documented as of this encounter Results * X-ray KUB (11/15/2024 2:54 PM RAIL ASSEMBLER) Anatomical Region Laterality Modality Abdomen/Pelvis Computed Radiogr aphy 11/15/2024 2:54 PM RAIL ASSEMBLER Impressions 11/15/2024 3:07 PM RAIL ASSEMBLER IMPRESSION: No radiographic evidence of bowel obstruction. Small colonic stool burden, decreased in comparison to prior radiograph. No acute bony abnormality. Narrative 11/15/2024 3:07 PM RAIL ASSEMBLER EXAM: XR KUB LOCATION: [facility] DATE: 11/15/2024 INDICATION: abdominal pain, please assess degree of stool burden COMPARISON: Abdominal radiograph 11/01/2024 Procedure Note Chan Justice MD - 11/15/2024 EXAM: XR KUB LOCATION: [facility] DATE: 11/15/2024 INDICATION: abdominal pain, please [...] Depression Total Score: 12 024 12:52 PM RAIL ASSEMBLER documented as of this encounter Care Teams Student Truck Driver Relationship Specialty Start Date End Date Monty Musa MD PCP - General Family Medicine 08/13/21 Alfonso Tang [facility] Practice 08/13/21 Dayanara Bee MD [address] [address] Pediatrics 12/26/14 Min Lange MD [address] [address] Neurology 03/30/16 Marlo Madsen MD [address] [place] [address] Cardiology 10/27/16 Mel Buckley, RN Nurse Coordinator Physical Medicine and Rehabilitation 12/02/16 Douglas Cadet MD Gastroenterology 08/13/21 Rosalba Pendleton APRN COMPRESSOR STATION OPERATOR [address] [place], [place] [id number] [place], [place] [address] Nurse Practitioner Neurology 09/05/21 Marlo Madsen MD [address] [place] [address] Assigned Heart and Vascular Provider 03/14/22 Abby Vasquez MD [address] [place] [address] 821745 Gastroenterology 07/16/22 Airam Hodges PA-C [address] [place] [address] 275365 Physician General Repair Mechanic Surgery 07/19/23 Zain Quintana MD [address] [place] [address] 671135 Assigned Surgical Provider 10/07/23 Latricia Pettit PA-C 909 [place], [place] 696035 Assigned Gastroenterology Provider 10/15/23 Abhishek Acevedo PA-C [address] [id number] Assigned Neuroscience Provider 11/05/24 documented as of this encounter
--- OUTSIDE RECORDS SUMMARY | 2024-12-11 13:41 | XMS_ITS | Encounter Summary ---
Author Organization [place] Address [address] [place] [address]. [place] [address] Care Team Providers Care Shellacker Name Role Phone Monty Musa MD Primary Care Provider [phone] Alfonso Tang Unavailable Unavailable Dayanara Bee MD Unavailable [phone] Min Lange MD Unavailable Unavailable Marlo Madsen MD Unavailable [phone] Mel Buckley RN Unavailable [phone] Douglas Cadet MD Unavailable Rosalba Pendleton FUNERAL HOME ASSISTANT FIELD CAPTAIN Unavaila ble Rosalba Pendleton APRN FIELD CAPTAIN Unavaila ble Marlo Madsen MD Unavailable [phone] Abby Vasquez MD Unavailable Airam Hodges PA-C Unavailable [phone] Zain Quintana MD Unavailable [phone] Latricia Pettit PA-C Unavailable [phone] Torri Francois MD Unavailable [phone] Abhishek Acevedo PA-C Unavailable [phone] Encounter Details Date Type Department Care Team (Late st Contact Info) Description 05/24/2024 MyC Medical Advice [facility] Gastroenterology Clinic [address]th [place] [phone] Savannah Dyer MA Social History Tobacco Use [...] Sex Assigned at Female 10/31/2021 7:59 AM CAR FRAMER Legal Sex Female 10:14 AM CAR FRAMER Gender Identity Female 10/31/2021 7:59 AM CAR FRAMER Sexual Orientation Straight 10/31/2021 7: 59 AM CAR FRAMER documented as of this encounter Plan of Treatment Upcoming Encounters Date Type Department Care Team (Late st Contact Info) Description 01/11/2025 9:00 AM CDT Virtual Visit [facility] Neurology Clinic [address]rd [place] [phone] Rosalba Pendleton APRN [id number] [place] [address] 05/01/2025 10:00 AM CDT Office Visit [facility] Sleep Centers [address] [address] Abhishek Acevedo PA-C [address] [id number] 05/23/2025 10:40 AM CDT Virtual Visit [facility] Gastroenterology Clinic [address] [place] [phone] Abby Vasquez MD [address] [place] [address] documented as of this encounter Visit Diagnoses Not on filedocumented in this encounter Additional Health Concerns Assessment Noted Time PHQ-9 Depression Total Score: 12 024 12:52 PM CAR FRAMER documented as of this encounter Care Teams Shellacker Relationship Specialty Start Date End Date Monty Musa MD PCP - General Family Medicine 08/13/21 Alfonso Tang Family Practice 08/13/21 Dayanara Bee MD [address] 473625 Pediatrics 12/26/14 Min Lange MD [address] [address] Neurology 03/30/16 Marlo Madsen MD [address] 919295 Cardiology 10/27/16 Mel Buckley, RN Nurse Coordinator Physical Medicine and Rehabilitation 12/02/16 Douglas Cadet MD Gastroenterology 08/13/21 Rosalba Pendleton APRN FIELD CAPTAIN [address] [place] [id number] [place] [address] Nurse Practitioner Neurology 09/05/21 Rosalba Pendleton APRN FIELD CAPTAIN [address] [id number] [place] [address] Assigned Neuroscience Provider 11/09/21 10/04/24 Marlo Madsen MD [address] [place] [address] 75 [place] [address] Assigned Heart and Vascular Provider 03/14/22 Abby Vasquez MD [address] [place] [address] Gastroenterology 07/16/22 Airam Hodges PA-C [address] [place] [address] Physician Ship Propeller Finisher Surgery 07/19/23 Zain Quintana MD [address] [place] [address] Assigned Surgical Provider 10/07/23 Latricia Pettit PA-C [address] [place] [address] Assigned Gastroenterology Provider 10/15/23 Torri Francois MD [address] [place] [address] Assigned Neuroscience Provider 10/05/24 11/04/24 Abhishek Acevedo PA-C [address] [address] Assigned Neuroscience Provider 11/05/24 documented as of this encounter
--- OUTSIDE RECORDS SUMMARY | 2024-12-11 13:41 | XMS_ITS | Encounter Summary ---
Author Organization [place] Address [address] [place] [address]. [place] [address] Care Team Providers Care Treatment Counselor Name Role Phone Monty Musa MD Primary Care Provider Alfonso Tang Unavailable Unavailable Dayanara Bee MD Unavailable [phone] Min Lange MD Unavailable Unavailable Marlo Madsen MD Unavailable [phone] Mel Buckley RN Unavailable [phone] Douglas Cadet MD Unavailable Rosalba Pendleton APRN C ENGINEER Unavaila ble Marlo Madsen MD Unavailable [phone] Abby Vasquez MD Unavailable Airam Hodges PA-C Unavailable [phone] Zain Quintana MD Unavailable [phone] Latricia Pettit PA-C Unavailable [phone] Torri Francois MD Unavailable [phone] Encounter Details Date Type Department Care Team [...] in an abandoned building, in an overnight skilled nursing, or couch-surfing.) Yes 05/31/2024 Are you worried [...] Sex Assigned at Female 10/31/2021 7:59 AM ARTIST'S REPRESENTATIVE Legal Sex Female 10:14 AM ARTIST'S REPRESENTATIVE Gender Identity Female 10/31/2021 7:59 AM ARTIST'S REPRESENTATIVE Sexual Orientation Straight 10/31/2021 7: 59 AM ARTIST'S REPRESENTATIVE documented as of this encounter Plan of Treatment Upcoming Encounters Date Type Department Care Team (Late st Contact Info) Description 01/11/2025 9:00 AM CDT Virtual Visit [address] [place] [phone] Rosalba Pendleton, MAXIMILIANO C ENGINEER [address] [place] [address] [id number] [place], [place] [address] 05/01/2025 10:00 AM CDT Office Visit [facility] [place] [address] [facility] [address] [place] [phone] Abhishek Acevedo PA-C [address] [place] [place], [place] [id number] 05/23/2025 10:40 AM CDT Virtual Visit [facility] Gastroenterology Clinic [address] [place] [phone] Abby Vasquez MD [address] [place] [address] 574495 documented as of this encounter Visit Diagnoses Not on filedocumented in this encounter Additional Health Concerns Assessment Noted Time PHQ-9 Depression Total Score: 12 024 12:52 PM ARTIST'S REPRESENTATIVE documented as of this encounter Care Teams Treatment Counselor Relationship Specialty Start Date End Date Monty Musa MD PCP - General Family Medicine 08/13/21 Alfonso Tang Family Practice 08/13/21 Dayanara Bee MD [address] [place] [address] 246015 Pediatrics 12/26/14 Min Lange MD [address] [place] [address] [address] Neurology 03/30/16 Marlo Madsen MD [address] [place] [address] [address] Cardiology 10/27/16 Mel Buckley, RN Nurse Coordinator Physical Medicine and Rehabilitation 12/02/16 Douglas [facility] MD Gastroenterology 08/13/21 Rosalba Pendleton APRN C ENGINEER [address] [place] [address] [id number] [place] [address] Nurse Practitioner Neurology 09/05/21 Marlo Madsen MD [address] [place] [address] 75 [place] [address] Assigned Heart and Vascular Provider 03/14/22 Abby Vasquez MD [address] [place] [address] 226565 Gastroenterology 07/16/22 Airam Hodges PA-C [address] [place] [address] 127965 Physician Stove Cleaner Surgery 07/19/23 Zain Quintana MD [address] [place] [address] 936165 Assigned Surgical Provider 10/07/23 Latricia Pettit PA-C [address] [place] [address] 089955 Assigned Gastroenterology Provider 10/15/23 Torri Francois MD [address] [place] [address] Assigned Neuroscience Provider 10/05/24 11/04/24 documented as of this encounter
--- OUTSIDE RECORDS SUMMARY | 2024-12-11 13:41 | XMS_ITS | Encounter Summary ---
Author Organization [place] Address [address] [place] [address]. [place] [address] Care Team Providers Care Paper Goods Machine Set Up Operator Name Role Phone Monty Musa MD Primary Care Provider [phone] Alfonso Tang Unavailable Unavailable Dayanara Bee MD Unavailable [phone] Min Lange MD Unavailable Unavailable BendMarlo molina MD Unavailable [phone] Mel Buckley RN Unavailable [phone] Douglas Cadet MD Unavailable [phone] Rosalba Pendleton SATELLITE TV TECHNICIAN INSTALLER MACHINE APPLICATOR CEMENTER Unavaila ble Rosalba Pendleton APRN MACHINE APPLICATOR CEMENTER Unavaila ble Douglas Cadet MD Unavailable [phone] Marlo Madsen MD Unavailable [phone] Abby Vasquez MD Unavailable Abby Vasquez MD Unavailable Airam Hodges PA-C Unavailable [phone] Zain Quintana MD Unavailable [phone] Latricia Pettit PA-C Unavailable [phone] Torri Francois MD Unavailable [phone] Abhishek Acevedo PA-C Unavailable [phone] Encounter Details Date Type Department Care Team (Late Contact Info) Description 04/02/2023 MyC Medical Advice [facility] Gastroenterology Clinic [address]th [place] [phone] Vivian Carter Social History Tobacco Use Types Packs/Day Years Used Date Smoking Tobacco: Never Smokeless Tobacco: Never Alcohol Use Standard Drinks/Week Comments No 0 (1 standard drink = 0.6 oz pur e alcohol) PHQ-2 Answer Date Recorded PHQ-2 Score 2 04/02/2023 Comments No Sex and Gender Information Value Date Recorded Sex Assigned at Female 10/31/2021 7:59 AM CHIEF WARDEN Legal Sex Female 10:14 AM CHIEF WARDEN Gender Identity Female 10/31/2021 7:59 AM CHIEF WARDEN Sexual Orientation Straight 10/31/2021 7: 59 AM CHIEF WARDEN COVID-19 Exposure Response Date Recorded In the [...] [facility] Neurology Clinic [address]rd [place] [phone] Rosalba Pendleton, MAXIMILIANO [address] [id number] [place] [address] 05/01/2025 10:00 AM CDT Office Visit [facility] [place] [address] [address] Abhishek Acevedo PA-C 9819 [facility] 103 [place], [place] [phone] 05/23/2025 10:40 AM CDT Virtual Visit [facility] Gastroenterology Clinic [address] 4th [place] [phone] Abby Vasquez MD [address] [place] [address] documented as of this encounter Visit Diagnoses Not on filedocumented in this encounter Additional Health Concerns Infection Onset Date Last Indicated Resolved Time Rule Out COVID-19 04/03/2023 04/03/2023 04/04/2023 6:30 PM CDT Assessment Noted Time PHQ-9 Depression Total Score: 11 022 11:52 AM CDT documented as of this encounter Care Teams Paper Goods Machine Set Up Operator Relationship Specialty Start Date End Date Monty Musa MD PCP - General Family Medicine 08/13/21 Alfonso Tang Family Practice 08/13/21 Dayanara Bee MD [address] [address] Pediatrics 12/26/14 Min Lange MD [address] [address] Neurology 03/30/16 Marlo Madsen MD [address] [address] Cardiology 10/27/16 Mel Buckley, RN Nurse Coordinator Physical Medicine and Rehabilitation 12/02/16 Douglas Cadet MD Gastroenterology 08/13/21 Rosalba Pendleton APRN MACHINE APPLICATOR CEMENTER [address] [place] [address] [id number] [place] [address] Nurse Practitioner Neurology 09/05/21 Rosalba Pendleton APRN MACHINE APPLICATOR CEMENTER [address] [place] [address] [id number] [place], [place] 578985 Assigned Neuroscience Provider 11/09/21 10/04/24 Douglas Cadet MD Assigned Gastroenterology Provider 03/14/22 09/03/23 Marlo Madsen MD [address] [place] [address] 75 [place], [place] 8[address]55 Assigned Heart and Vascular Provider 03/14/22 Abby Vasquez MD [address] [place] [address] 997885 Gastroenterology 07/16/22 Abby Vasquez MD [address] [place] [address] 149745 Assigned PCP 09/26/22 10/06/23 Airam Hodges PA-C 500 [place], [place] 155765 Physician Instructional Design Manager Surgery 07/19/23 Zain Quintana MD [address] [place] [address] 816155 Assigned Surgical Provider 10/07/23 Latricia Pettit PA-C [address] [place] [address] 745585 Assigned Gastroenterology Provider 10/15/23 Torri Francois MD 515 [place] [address] Assigned Neuroscience Provider 10/05/24 2 Abhishek Acevedo PA-C [address] [facility] 103 [place] [address] Assigned Neuroscience Provider 11/05/24 documented as of this encounter
--- OUTSIDE RECORDS SUMMARY | 2024-12-11 13:41 | XMS_ITS | Encounter Summary ---
Author Organization [facility] Address [address] [place] [address]. [place] [address] Care Team Providers Care Azure Principal Solution Specialist Name Role Phone Monty Musa MD Primary Care Provider Alfonso Tang Unavailable Unavailable Dayanara Bee MD Unavailable [phone] Min Lange MD Unavailable Unavailable Marlo Madsen MD Unavailable [phone] Mel Buckley RN Unavailable [phone] Douglas Cadet MD Unavailable Rosalba Pendleton APRN RUBBER PRESS TENDER Unavaila ble Marlo Madsen MD Unavailable [phone] Abby Vasquez MD Unavailable Airam Hodges PA-C Unavailable [phone] Zain Quintana MD Unavailable [phone] Latricia Pettit PA-C Unavailable [phone] Abhishek Acevedo PA-C Unavailable [phone] Encounter Details Date Type Department Care Team (Latest Contact Info) Description 11/23/2024 5:20 PM CDT Ancillary Procedure [facility] Epilepsy Care EEG 5775 [facility] [address] [place] [address] Torri Francois MD [address] [place] [address] Psychogenic nonepileptic seizure Social History Tobacco Use [...] Assigned at Female 10/31/2021 7:59 AM CARBONIZER Legal Sex Female 10:14 AM CARBONIZER Gender Identity Female 10/31/2021 7:59 AM CARBONIZER Sexual Orientation Straight 10/31/2021 7: 59 AM CARBONIZER documented as of this encounter Plan of Treatment Upcoming Encounters Date Type Department Care Team (Late st Contact Info) Description 01/11/2025 9:00 AM CDT Virtual Visit [facility] Neurology Clinic [address] 3rd [place] [phone] Rosalba Pendleton, CLINICAL RESOURCE NURSE RUBBER PRESS TENDER 9 [facility] [id number] [place] [address] 05/01/2025 10:00 AM CDT Office Visit [facility] [place] 6363 [facility] 103 [place] [phone] Abhishek Acevedo PA-C 6363 [facility] 103 [place] [address] 05/23/2025 10:40 AM CDT Virtual Visit [facility] Gastroenterology Clinic [address] 4th [place] [phone] Abby Vasquez MD [address] [place] [address] Pending Results Name Type Priority Associated Diagnoses Date /Time EEG Ambulatory Remote vEEG 4+ Days EEG Routine Psychogenic nonepileptic seizure 11/27/2024 1:31 PM CDT documented as of this encounter Visit Diagnoses Diagnosis Psychogenic nonepileptic seizure documented in this encounter Additional Health Concerns Assessment Noted Time PHQ-9 Depression Total Score: 12 024 12:52 PM CARBONIZER documented as of this encounter Care Teams Azure Principal Solution Specialist Relationship Specialty Start Date End Date Monty Musa MD PCP - General Family Medicine 08/13/21 Alfonso Tang Family Practice 08/13/21 Dayanara Bee MD [address] [address] Pediatrics 12/26/14 Min Lange MD [address] [address] Neurology 03/30/16 Marlo Madsen MD [address] [place] [address] Cardiology 10/27/16 Mel Buckley, DIAZ Nurse Coordinator Physical Medicine and Rehabilitation 12/02/16 Douglas Cadet MD Gastroenterology 08/13/21 Rosalba Pendleton APRN RUBBER PRESS TENDER [address] [place], [place] [address] [place], [place] [address] Nurse Practitioner Neurology 09/05/21 Marlo Madsen MD [address] [place] [address] Assigned Heart and Vascular Provider 03/14/22 Abby Vasquez MD [address] [place] [address] 595735 Gastroenterology 07/16/22 Airam Hodges PA-C [address] [place] [address] 174895 Physician Oil Speculator Surgery 07/19/23 Zain Quintana MD [address] [place] [address] 530395 Assigned Surgical Provider 10/07/23 Latricia Pettit PA-C 909 [place] [address] Assigned Gastroenterology Provider 10/15/23 Abhishek Acevedo PA-C [address] [id number] Assigned Neuroscience Provider 11/05/24 documented as of this encounter
--- OUTSIDE RECORDS SUMMARY | 2024-12-11 13:41 | XMS_ITS | Encounter Summary ---
Author Organization [facility] Address [address] [place] [address]. [place] [address] Care Team Providers Care Budget Director Name Role Phone Monty Musa MD Primary Care Provider Alfonso Tang Unavailable Unavailable Dayanara Bee MD Unavailable [phone] Min Lange MD Unavailable Unavailable Marlo Madsen MD Unavailable [phone] Mel Buckley RN Unavailable [phone] Douglas Cadet MD Unavailable [phone] Rosalba Pendleton APRN HAND III CUTTER Unavaila ble Marlo Madsen MD Unavailable [phone] Abby Vasquez MD Unavailable Airam HodgesC Unavailable [phone] Zain Quintana MD Unavailable [phone] Latricia Pettit PA-C Unavailable [phone] Abhisehk Acevedo-C Unavailable [phone] Encounter Details Date Type Department Care Team (Late st Contact Info) Description 12/09/2024 [facility] Neurology [place] 913839 [facility] [address] 3rd [place] [address] Torri Francois MD [address] [place] [address] Social History Tobacco Use Types Packs/Day Years [...] Sex Assigned at Female 10/31/2021 7:59 AM TIRE CHANGER AIRCRAFT Legal Sex Female 10:14 AM TIRE CHANGER AIRCRAFT Gender Identity Female 10/31/2021 7:59 AM TIRE CHANGER AIRCRAFT Sexual Orientation Straight 10/31/2021 7: 59 AM TIRE CHANGER AIRCRAFT documented as of this encounter Plan of Treatment Upcoming Encounters Date Type Department Care Team (Late st Contact Info) Description 01/11/2025 9:00 AM CDT Virtual Visit [facility] Neurology Clinic [address]rd [place] [phone] Roslaba Pendleton, MAXIMILIANO HAND III CUTTER [address] [place] [address] [id number] [place] [address] 05/01/2025 10:00 AM CDT Office Visit [facility] Sleep [facility] [place] 6363 [facility] 103 [place] [phone] Abhishek Acevedo PA-C 6763 [facility] 103 [place], [place] [address] 05/23/2025 10:40 AM CDT Virtual Visit [facility] Gastroenterology Clinic [address]th [place] [phone] Abby Vasquez MD [address] [place] [address] documented as of this encounter Visit Diagnoses Not on filedocumented in this encounter Additional Health Concerns Assessment Noted Time PHQ-9 Depression Total Score: 12 024 12:52 PM TIRE CHANGER AIRCRAFT documented as of this encounter Care Teams Budget Director Relationship Specialty Start Date End Date Monty Musa MD PCP - General Family Medicine 08/13/21 Alfonso Tang Family Practice 08/13/21 Dayanara Bee MD [address] [place] [address] 75 [place], [place] 872625 Pediatrics 12/26/14 Min Lange MD [address] [address] Neurology 03/30/16 Marlo Madsen MD [address] [place] [address] Cardiology 10/27/16 Mel Buckley, DIAZ Nurse Coordinator Physical Medicine and Rehabilitation 12/02/16 Douglas Cadet MD Gastroenterology 08/13/21 Rosalba Pendleton APRN CNP [address] [place], [place] [address] [place], [place] [address] Nurse Practitioner Neurology 09/05/21 Marlo Madsen MD [address] [place] [address] 159845 Assigned Heart and Vascular Provider 03/14/22 Abby Vasquez MD [address] [place] [address] 936475 Gastroenterology 07/16/22 Airam Hodges PA-C [address] [place] [address] 723745 Physician Diamond Cleaner Surgery 07/19/23 Zain Quintana MD [address] [place] [address] 318335 Assigned Surgical Provider 10/07/23 Latricia Ptetit PA-C [address] [place] [address] 27[address] Assigned Gastroenterology Provider 10/15/23 Abhishek Acevedo PA-C [address] [place] [address] [place] [address] Assigned Neuroscience Provider 11/05/24 documented as of this encounter
--- OUTSIDE RECORDS SUMMARY | 2024-12-11 13:41 | XMS_ITS | Encounter Summary ---
Author Organization [facility] Address [address] [place] [address]. [place] [address] Care Team Providers Care Ad Setter Name Role Phone Alfonso Tang Primary Care Provider Unavailabl Monty Olvera MD Primary Care Provider Alfonso Tang Unavailable Unavailable Dayanara Bee MD Unavailable [phone] Min Lange MD Unavailable Unavailable Marlo Madsen MD Unavailable [phone] Mel Buckley RN Unavailable [phone] Douglas Cadet MD Unavailable [phone] Rosalba Pendleton APRN SOLAR DESIGNER Unavaila ble Rosalba Pendleton APRN SOLAR DESIGNER Unavaila ble Douglas Cadet MD Unavailable [phone] Marlo Madsen MD Unavailable [phone] Abby Vasquez MD Unavailable Abby Vasquez MD Unavailable Airam Hodges PA-C Unavailable [phone] Zain Quintana MD Unavailable [phone] Latricia Pettit PA-C Unavailable [phone] Torri Francois MD Unavailable Abhishek Acevedo PA-C Unavailable [phone] Encounter Details Date Type Department Care Team (Late st Contact Info) Description 07/30/2015 [facility] Medical Advice Medicine GI - 1E [facility] 1st Floor, Clinic 1E [address] [place] [phone] Ama Bustamante RN Social History Tobacco Use Types Packs/Day Years Used Date Smoking Tobacco: Never Smokeless Tobacco: Never Alcohol Use Standard Drinks/Week Comments No 0 (1 standard drink = 0.6 oz pur e alcohol) Comments No Sex and Gender Information Value Date Recorded Sex Assigned at Female 10/31/2021 7:59 AM PUBLIC HEALTH ENGINEER Legal Sex Female 10:14 AM PUBLIC HEALTH ENGINEER Gender Identity Female 10/31/2021 7:59 AM PUBLIC HEALTH ENGINEER Sexual Orientation Straight 10/31/2021 7: 59 AM PUBLIC HEALTH ENGINEER documented as of this encounter Plan of Treatment Upcoming Encounters Date Type Department Care Team (Late st Contact Info) Description 01/11/2025 9:00 AM CDT Virtual Visit [facility] Neurology Clinic [address] 3rd [place] [phone] Rosalba Pendleton, MAXIMILIANO [address] [id number] [place] [address] 05/01/2025 10:00 AM CDT Office Visit [facility] Sleep Centers [place] [id number] [address] [phone] Abhishek Acevedo PA-C [address] [id number] 05/23/2025 10:40 AM CDT Virtual Visit [facility] Gastroenterology Clinic [place] [address] [place] [address] 4th [place] [phone] Abby Vasquez MD 909 [place] [address] documented as of this encounter Visit Diagnoses Not on filedocumented in this encounter Additional Health Concerns Infection Onset Date Last Indicated Resolved Time Rule Out COVID-19 04/03/2023 04/03/2023 04/04/2023 6:30 PM CDT documented as of this encounter Care Teams Ad Setter Relationship Specialty Start Date End Date Alfonso Tang PCP - General Family Practice 09/04/13 08/12/21 Monty Musa MD PCP - General Family Medicine 08/13/21 Alfonso Tang Family Practice 08/13/21 Dayanara Bee MD [address] 372345 Pediatrics 12/26/14 Min Lange MD [address] [address] Neurology 03/30/16 Marlo Madsen MD [address] [address] Cardiology 10/27/16 Mel Buckley, RN Nurse Coordinator Physical Medicine and Rehabilitation 12/02/16 Douglas Cadet MD Gastroenterology 08/13/21 Rosalba Pendleton APRN SOLAR DESIGNER [address] [place], [place] [address] [address] Nurse Practitioner Neurology 09/05/21 Rosalba Pendleton APRN SOLAR DESIGNER [address] [place] [address] [id number] [place] [address] Assigned Neuroscience Provider 11/09/21 10/04/24 Douglas Cadet MD Assigned Gastroenterology Provider 03/14/22 09/03/23 Marlo Madsen MD [address] [place] [address] 75 [place] [address] Assigned Heart and Vascular Provider 03/14/22 Abby Vasquez MD [address] [place] [address] Gastroenterology 07/16/22 Abby Vasquez MD [address] [place] [address] Assigned PCP 09/26/22 10/06/23 Airam Hodges PA-C [address] [place] [address] 623945 Physician Traffic Police Officer Surgery 07/19/23 Zain Quintana MD [address] [place] [address] 403235 Assigned Surgical Provider 10/07/23 Latricia Pettit PA-C [address] [place] [address] 531085 Assigned Gastroenterology Provider 10/15/23 Torri Francois MD [address] [place] [address] 424785 Assigned Neuroscience Provider 10/05/24 11/04/24 Abhishek Acevedo PA-C [address] [place] [address] [place] [address] Assigned Neuroscience Provider 11/05/24 documented as of this encounter
--- OUTSIDE RECORDS SUMMARY | 2024-12-11 13:41 | XMS_ITS | Encounter Summary ---
Author Organization [facility] Address [address] [place] [address]. [place] [address] Care Team Providers Care Grades 9 12 Tutor Name Role Phone Monty Musa MD Primary Care Provider Alfonso Tang Unavailable Unavailable Dayanara Bee MD Unavailable [phone] Min Lange MD Unavailable Unavailable Marlo Madsen MD Unavailable [phone] Mel Buckley RN Unavailable [phone] Douglas Cadet MD Unavailable Rosalba Pnedleton APRN TREASURY AGENT Unavaila ble Marlo Madsen MD Unavailable [phone] Abby Vasquez MD Unavailable Airam Hodges-C Unavailable [phone] Zain Quintana MD Unavailable [phone] Latricia PettitC Unavailable [phone] Abhishek Acevedo-C Unavailable [phone] Reason for Visit * Reason Onset Date Comments Prior Auth - Medication 11/22/2024 erenumab -aooe (AIMOVIG) 140 MG/ML injection PA APPROVED Encounter Details Date Type Department Care Team (Late st Contact Info) Description 11/22/2024 Telephone [facility] Neurology Clinic [place] [address]1769 [facility] 3rd [place] [address] Rosalba Pendleton APRN [facility] 909 [facility] [id number] [place] [address] Prior Auth - Medication (erenumab-aooe (AIMOVIG) 140 [...] in an abandoned building, in an overnight alf, or couch-surfing.) Yes 05/31/2024 Are you worried [...] Assigned at Female 10/31/2021 7:59 AM MANAGER BANK Legal Sex Female 10:14 AM MANAGER BANK Gender Identity Female 10/31/2021 7:59 AM MANAGER BANK Sexual Orientation Straight 10/31/2021 7: 59 AM MANAGER BANK documented as of this encounter Miscellaneous Notes * Telephone Encounter - Ida Terry - 11/24/2024 4:29 PM CDT Images from the original note were not included. Prior Authorization Approval Medication: AIMOVIG 140 MG/ML [place] SOAJ Authorization Effective Date: 11/24/2024 Authorization Expiration Date: 09/12/2025 Approved Dose/Quantity: Reference #: Insurance Company: [employer] Part D - Expected CoPay: $ CoPay Card Available: Financial Assistance Needed: No Which Pharmacy is filling the prescription: [facility] [address] [place] [address] Pharmacy Notified: Yes Patient Notified: Instructed pharmacy to notify patient once order is ready. * Telephone Encounter - Ida Terry - 11/24/2024 3:32 PM CDT Images from the original note were not included. PA Initiation Medication: AIMOVIG 140 MG/ML [place] SOAJ Insurance Company: [employer] Part D - Pharmacy Filling the Rx: [facility] [address] [place] [address] 3 Filling Pharmacy Filling Pharmacy Fax: Start [...] different than what is on RX) Name: [id number] Clinic Information Preferred routing pool for dept communication: documented in this encounter Plan of Treatment Upcoming Encounters Date Type Department Care Team (Late st Contact Info) Description 01/11/2025 9:00 AM CDT Virtual Visit [facility] Neurology Clinic [address] [address] Rosalba Pendleton APRN [id number] [place], [place] 68[address] 05/01/2025 10:00 AM CDT Office Visit [facility] Sleep Centers [place] [id number] [address] [phone] Abhishek Acevedo PA-C 7146 [facility] 103 [place], [place] [id number] 05/23/2025 10:40 AM CDT Virtual Visit [facility] Gastroenterology Clinic [address] [place] [phone] Abby Vasquez MD [address] [place] [address] 968945 documented as of this encounter Visit Diagnoses Not on filedocumented in this encounter Additional Health Concerns Assessment Noted Time PHQ-9 Depression Total Score: 12 024 12:52 PM MANAGER BANK documented as of this encounter Care Teams Grades 9 12 Tutor Relationship Specialty Start Date End Date Monty Musa MD PCP - General Family Medicine 08/13/21 Alfonso Tang Family Practice 08/13/21 Dayanara Bee MD [address] 266545 Pediatrics 12/26/14 Min Lange MD [address] [address] Neurology 03/30/16 Marlo Madsen MD [address] [place] [address] 142875 Cardiology 10/27/16 Mel Buckley, RN Nurse Coordinator Physical Medicine and Rehabilitation 12/02/16 Douglas Cadet MD Gastroenterology 08/13/21 Rosalba Pendleton APRN TREASURY AGENT [address] [place] [id number] [address] Nurse Practitioner Neurology 09/05/21 Marlo Madsen MD [address] [address] Assigned Heart and Vascular Provider 03/14/22 Abby Vasquez MD [address] [place] [address] Gastroenterology 07/16/22 Airam Hodges PA-C 500 [place] [address] Physician Service Station Equipment Mechanic Surgery 07/19/23 Zain Quintana MD 500 [place], [place] 848225 Assigned Surgical Provider 10/07/23 Latricia Pettit PA-C 909 [place] [address] Assigned Gastroenterology Provider 10/15/23 Abhishek Acevedo PA-C [address] [address] Assigned Neuroscience Provider 11/05/24 documented as of this encounter
--- OUTSIDE RECORDS SUMMARY | 2024-12-11 13:41 | XMS_ITS | Encounter Summary ---
Author Organization [place] Address [address] [place] [address]. [place] [address] Care Team Providers Care Vertical Lathe Operator Name Role Phone Monty Musa MD Primary Care Provider Alfonso Tang Unavailable Unavailable Dayanara Bee MD Unavailable [phone] Min Lange MD Unavailable Unavailable Marlo Madsen MD Unavailable [phone] Mel Buckley RN Unavailable [phone] Douglas Cadet MD Unavailable Rosalba Pendleton APRN HOME APPLIANCE TECHNICIAN Unavaila ble Marlo Madsen MD Unavailable [phone] Abby Vasquez MD Unavailable Airam Hodges PA-C Unavailable [phone] Zain Quintana MD Unavailable [phone] Latricia Pettit PA-C Unavailable [phone] Abhishek Acevedo PA-C Unavailable [phone] Encounter Details Date Type Department Care Team [...] in an abandoned building, in an overnight long term, or couch-surfing.) Yes 05/31/2024 Are you worried [...] Sex Assigned at Female 10/31/2021 7:59 AM DOUGHNUT GLAZIER Legal Sex Female 10:14 AM DOUGHNUT GLAZIER Gender Identity Female 10/31/2021 7:59 AM DOUGHNUT GLAZIER Sexual Orientation Straight 10/31/2021 7: 59 AM DOUGHNUT GLAZIER documented as of this encounter Plan of Treatment Upcoming Encounters Date Type Department Care Team (Late st Contact Info) Description 01/11/2025 9:00 AM CDT Virtual Visit [address]rd [place] [phone] Rosalba Pendleton, MAXIMILIANO HOME APPLIANCE TECHNICIAN [address] [place] [address] [id number] [place], [place] 847475 05/01/2025 10:00 AM CDT Office Visit [facility] [place] [address] [facility] [address] [place] [phone] Abhishek Acevedo PA-C [address] [place], [place] [id number] 05/23/2025 10:40 AM CDT Virtual Visit [facility] G[facility]enterology Clinic [address] [place] [phone] Abby Vasquez MD [address] [place] [address] 396585 documented as of this encounter Visit Diagnoses Not on filedocumented in this encounter Additional Health Concerns Assessment Noted Time PHQ-9 Depression Total Score: 12 024 12:52 PM DOUGHNUT GLAZIER documented as of this encounter Care Teams Vertical Lathe Operator Relationship Specialty Start Date End Date Monty Musa MD PCP - General Family Medicine 08/13/21 Alfonso Tang Family [facility] 08/13/21 Dayanara Bee MD [address] [address] 694[address] Pediatrics 12/26/14 Min Lange MD [address] [facility] 75 [place] [address] Neurology 03/30/16 Marlo Madsen MD [address] [address] Cardiology 10/27/16 Mel Buckley, RN Nurse Coordinator Physical Medicine and Rehabilitation 12/02/16 Douglas Cadet MD Gastroenterology 08/13/21 Rosalba Pendleton APRN HOME APPLIANCE TECHNICIAN [address] [place] [address] [id number] [place] [address] Nurse Practitioner Neurology 09/05/21 Marlo Madsen MD [address] [place] [address] 75 [place] [address] Assigned Heart and Vascular Provider 03/14/22 Abby Vasquez MD [address] [place] [address] Gastroenterology 07/16/22 Airam Hodges PA-C 500 [place], [place] 956735 Physician Regulatory Services Consultant Surgery 07/19/23 Zain Quintana MD [address] [place] [address] 322175 Assigned Surgical Provider 10/07/23 Latricia Pettit PA-C [address] [place] [address] 813475 Assigned Gastroenterology Provider 10/15/23 Abhishek Acevedo PA-C [address] [address] [address] Assigned Neuroscience Provider 11/05/24 documented as of this encounter
--- OUTSIDE RECORDS SUMMARY | 2024-12-11 13:41 | XMS_ITS | Encounter Summary ---
Author Organization [place] Address [address] [place] [address]. [place] [address] Care Team Providers Care Imaging Center Manager Name Role Phone Monty Musa MD Primary Care Provider Alfonso Tang Unavailable Unavailable Dayanara Bee MD Unavailable [phone] Min Lange MD Unavailable Unavailable Marlo Madsen MD Unavailable [phone] Mel Buckley RN Unavailable [phone] Douglas Cadet MD Unavailable Rosalba Pendleton APRN COMMERCIAL SUBCONTRACTOR Unavaila ble Marlo Madsen MD Unavailable [phone] Abby Vasquez MD Unavailable Airam Hodges PA-C Unavailable [phone] Zain Quintana MD Unavailable [phone] Latricia Pettit PA-C Unavailable [phone] Abhishek Acevedo PA-C Unavailable [phone] Reason for Visit * Diagnostic Imaging XR (Routine) - Pending Review Specialty Diagnoses / Procedures Referred By Contgeovany t Referred To Contact Radiology. Diagnoses Constipation, unspecified constipation type Procedures X-ray KUB Abby Vasquez MD 909 [place] [address] Phone: tel: fax: Referral ID Status Reason Start Date Expiration Date V isits Requested Visits Authorized [id number] Pending Review 11/15/2024 11/15/2025 1 1 Encounter Details Date Type Department Care Team (Latest Contact Info) Description 11/15/2024 3:00 PM DEPUTY K 9 Ancillary Procedure [address] [place] [address] Abby Vasquez MD 903 [place] [address] Constipation, unspecified constipation type Social [...] Sex Assigned at Female 10/31/2021 7:59 AM DEPUTY K 9 Legal Sex Female 10:14 AM DEPUTY K 9 Gender Identity Female 10/31/2021 7:59 AM DEPUTY K 9 Sexual Orientation Straight 10/31/2021 7: 59 AM DEPUTY K 9 documented as of this encounter Plan of Treatment Upcoming Encounters Date Type Department Care Team (Late st Contact Info) Description 01/11/2025 9:00 AM CDT Virtual Visit [facility] [address] 3rd [place] [address] Rosalba Pendleton, MAXIMILIANO COMMERCIAL SUBCONTRACTOR [address] [place] [address] [id number] [place], [place] [address] 05/01/2025 10:00 AM CDT Office Visit [facility] [place] [address] [place] [address] [phone] Abhishek Acevedo, KEILA 6363 [facility] 103 [place], [place] [address] 05/23/2025 10:40 AM CDT Virtual Visit [facility]astroenterology [facility] [place] [address] [place] [address] 4th [place] [address] Abby Vasquez MD [address] [place] [address] [id number] documented as of this encounter Procedures Procedure Name Priority Date/Time Associated Diagnosis Comments XR KUB Routine 11/15/2024 2:54 PM DEPUTY K 9 Constipation, unspecified constipation type documented in this encounter Results * X-ray KUB (11/15/2024 2:54 PM DEPUTY K 9) Anatomical Region Laterality Modality Abdomen/Pelvis Computed Radiogr aphy 11/15/2024 2:54 PM DEPUTY K 9 Impressions 11/15/2024 3:07 PM DEPUTY K 9 IMPRESSION: No radiographic evidence of bowel obstruction. Small colonic stool burden, decreased in comparison to prior radiograph. No acute bony abnormality. Narrative 11/15/2024 3:07 PM DEPUTY K 9 EXAM: XR KUB LOCATION: [facility] DATE: 11/15/2024 INDICATION: abdominal pain, please assess degree of stool burden COMPARISON: Abdominal radiograph 11/01/2024 Procedure Note Chan Justice MD - 11/15/2024 EXAM: XR KUB LOCATION: [facility] DATE: 11/15/2024 INDICATION: abdominal pain, [...] Depression Total Score: 12 024 12:52 PM DEPUTY K 9 documented as of this encounter Care Teams Imaging Center Manager Relationship Specialty Start Date End Date Monty Musa MD PCP - General Family Medicine 08/13/21 Alfonso Tang Family [facility] 08/13/21 Dayanara Bee MD [address] [place] [address] 75 [place] [address] Pediatrics 12/26/14 Min Lange MD [address] [address] Neurology 03/30/16 Marlo Madsen MD [address] [place] [address] Cardiology 10/27/16 Mel Buckley, RN Nurse Coordinator Physical Medicine and Rehabilitation 12/02/16 Douglas Cadet MD Gastroenterology 08/13/21 Rosalba Pendleton APRN COMMERCIAL SUBCONTRACTOR [address] [place] [address] [address] Nurse Practitioner Neurology 09/05/21 Marlo Madsen MD [address] [place] [address] Assigned Heart and Vascular Provider 03/14/22 Abby Vasquez MD [address] [place] [address] Gastroenterology 07/16/22 Airam Hodges PA-C [address] [place] [address] Physician Investment Fund Manager Surgery 07/19/23 Zain Quintana MD [address] [place] [address] 002575 Assigned Surgical Provider 10/07/23 Latricia Pettit PA-C [address] [place] [address] Assigned Gastroenterology Provider 10/15/23 Abhishek Acevedo PA-C [address] [facility] [address] [place] [address] Assigned Neuroscience Provider 11/05/24 documented as of this encounter
--- OUTSIDE RECORDS SUMMARY | 2024-12-11 13:41 | XMS_ITS | Encounter Summary ---
Author Organization [place] Address [address] [place] [address]. [place] [address] Care Team Providers Care Pmo Manager Name Role Phone Monty Musa MD Primary Care Provider Alfonso Tang Unavailable Unavailable Dayanara Bee MD Unavailable [phone] Min Lange MD Unavailable Unavailable Marlo Madsen MD Unavailable [phone] Mel Buckley RN Unavailable [phone] Douglas Cadet MD Unavailable Rosalba Pendleton APRN, CNP Unavaila ble Marlo Madsen MD Unavailable [phone] Abby Vasquez MD Unavailable Airam Hodges PA-C Unavailable [phone] Zain Quintana MD Unavailable [phone] Latricia Pettit PA-C Unavailable [phone] Torri Francois MD Unavailable [phone] Reason for Visit * Diagnostic Imaging XR (Routine) - Pending Review Specialty Diagnoses / Procedures Referred By Contac t Referred To Contact Radiology. Diagnoses Chronic idiopathic constipation Pelvic floor dysfunction Irritable bowel syndrome with constipation Procedures X-ray Abdomen 1 vw Latricia Pettit PA-C 909 [place] [address] Phone: tel: fax: Referral ID Status Reason Start Date Expiration Date V isits Requested Visits Authorized [id number] Pending Review 10/03/2024 10/03/2025 1 1 Encounter Details Date Type Department Care Team (Latest Contact Info) Description 11/01/2024 1:00 PM ABSORPTION PLANT OPERATOR HELPER Ancillary Procedure [address] [phone] Latricia Pettit PA-C [address] [place], [place] [phone] Chronic idiopathic constipation; Pelvic floor dysfunction; Irritable [...] Sex Assigned at Female 10/31/2021 7:59 AM ABSORPTION PLANT OPERATOR HELPER Legal Sex Female 10:14 AM ABSORPTION PLANT OPERATOR HELPER Gender Identity Female 10/31/2021 7:59 AM ABSORPTION PLANT OPERATOR HELPER Sexual Orientation Straight 10/31/2021 7: 59 AM ABSORPTION PLANT OPERATOR HELPER documented as of this encounter Plan of Treatment Upcoming Encounters Date Type Department Care Team (Late st Contact Info) Description 01/11/2025 9:00 AM CDT Virtual Visit [facility] Neurology Clinic [address]rd [place] [address] Rosalba Pendleton, MAXIMILIANO MINIATURE SET DESIGNER [address] [place] [address] [id number] [place], [place] [address] 05/01/2025 10:00 AM CDT Office Visit [facility] [place] [phone] [address] [phone] Abhishek Acevedo PA-C 6363 [facility] 103 [place] [address] 05/23/2025 10:40 AM CDT Virtual Visit [facility] Gastroenterology Clinic [address] [place] [address] Abby Vasquez MD [address] [place] [address] [phone] documented as of this encounter Procedures Procedure Name Priority Date/Time Associated Diagnosis Comments XR ABDOMEN 1 VIEW Routine 11/01/2024 1:0 0 PM ABSORPTION PLANT OPERATOR HELPER Chronic idiopathic constipation Pelvic floor dysfunction Irritable bowel syndrome with constipation documented in this encounter Results * X-ray Abdomen 1 vw (11/01/2024 1:00 PM ABSORPTION PLANT OPERATOR HELPER) Anatomical Region Laterality Modality Abdomen/Pelvis Computed Radiogr aphy 11/01/2024 1:00 PM ABSORPTION PLANT OPERATOR HELPER Impressions 11/01/2024 1:07 PM ABSORPTION PLANT OPERATOR HELPER IMPRESSION: Nonobstructive bowel gas pattern. Large amount of formed stool in the cecum, ascending colon and transverse colon; and small amount of formed stool in the descending colon. Narrative 11/01/2024 1:07 PM ABSORPTION PLANT OPERATOR HELPER EXAM: XR ABDOMEN 1 VIEW LOCATION: [facility] DATE: 11/01/2024 INDICATION: Standing order > Please comment on stool gas pattern COMPARISON: 07/09/2023 Procedure Note Christine Santacruz MD - 11/01/2024 EXAM: XR ABDOMEN 1 VIEW LOCATION: [facility] DATE: 11/01/2024 INDICATION: Standing order > [...] Depression Total Score: 12 024 12:52 PM ABSORPTION PLANT OPERATOR HELPER documented as of this encounter Care Teams Pmo Manager Relationship Specialty Start Date End Date Monty Musa MD PCP - General Family Medicine 08/13/21 Alfonso Tang Family Practice 08/13/21 Dayanara Bee MD [address] [address] Pediatrics 12/26/14 Min Lange MD [address] [address] Neurology 03/30/16 Marlo Madsen MD [address] [place] [address] Cardiology 10/27/16 Mel Buckley, RN Nurse Coordinator Physical Medicine and Rehabilitation 12/02/16 Douglas Cadet MD Gastroenterology 08/13/21 Rosalba Pendleton APRN MINIATURE SET DESIGNER 909 [id number] [place] [address] Nurse Practitioner Neurology 09/05/21 Marlo Madsen MD [address] [place] [address] Assigned Heart and Vascular Provider 03/14/22 Abby Vasquez MD 909 [place] [address] Gastroenterology 07/16/22 Airam Hodges PA-C 500 [place], [place] 193485 Physician Reception Centre Manager Surgery 07/19/23 Zain Quintana MD 500 [place] [address] Assigned Surgical Provider 10/07/23 Latricia Pettit PA-C [address] [place] [address] Assigned Gastroenterology Provider 10/15/23 Torri Francois MD [address] [place] [address] 262985 Assigned Neuroscience Provider 10/05/24 11/04/24 documented as of this encounter
--- OUTSIDE RECORDS SUMMARY | 2024-12-11 13:41 | XMS_ITS | CCD ---
Author Name Interface, [id number] Address [address] [place], [place] [address] [place] [address] [facility] Oncology Address [address] [place] [address] Care Team Providers Care Production Welder Name Role Phone Lexi Lamas Unavailable Unavailable Reason for Visit Encounters Problems Social History
--- OUTSIDE RECORDS SUMMARY | 2024-12-11 13:41 | XMS_ITS | Encounter Summary ---
Author Organization [place] Address [address] [place] [address]. [place] [address] Care Team Providers Care Working Second Hand Name Role Phone Monty Musa MD Primary Care Provider [phone] Alfonso Tang Unavailable Unavailable Dayanara Bee MD Unavailable [phone] Min Lange MD Unavailable Unavailable Marlo Madsen MD Unavailable [phone] Mel Buckley RN Unavailable [phone] Douglas Cadet MD Unavailable Rosalba Pendleton APRN, CNP Unavaila ble Marlo Madsen MD Unavailable [phone] Abby Vasquez MD Unavailable Airam Hodges PA-C Unavailable [phone] Zain Quintana MD Unavailable [phone] Latricia Pettit PA-C Unavailable [phone] Torri Francois MD Unavailable [phone] Encounter Details Date Type Department Care Team (Late st Contact Info) Description 11/01/2024 [facility] Gastroenterology Clinic [place] [phone] [facility] [address] 4th [place] [address] Latricia Pettit PA-C 909 [place] [address] Social History Tobacco Use Types Packs/Day Years [...] in an abandoned building, in an overnight detention, or couch-surfing.) Yes 05/31/2024 Are you worried [...] Assigned at Female 10/31/2021 7:59 AM SUPERVISOR AIR CONDITIONING INSTALLER Legal Sex Female 10:14 AM SUPERVISOR AIR CONDITIONING INSTALLER Gender Identity Female 10/31/2021 7:59 AM SUPERVISOR AIR CONDITIONING INSTALLER Sexual Orientation Straight 10/31/2021 7: 59 AM SUPERVISOR AIR CONDITIONING INSTALLER documented as of this encounter Plan of Treatment Upcoming Encounters Date Type Department Care Team (Late st Contact Info) Description 01/11/2025 9:00 AM CDT Virtual Visit [facility] Neurology Clinic [address]rd [place] [phone] Rosalba Pendleton, MAXIMILIANO MANAGER EDITORIAL [address] [place] [address] [id number] [place], [place] 342345 05/01/2025 10:00 AM CDT Office Visit [facility] [place] [address] [phone] Abhishek Acevedo PA-C 6363 [facility] 103 [place], [place] [phone] 05/23/2025 10:40 AM CDT Virtual Visit [facility] Gastroenterology Clinic [address] [place] [phone] Abby Vasquez MD [address] [place] [address] documented as of this encounter Visit Diagnoses Not on filedocumented in this encounter Additional Health Concerns Assessment Noted Time PHQ-9 Depression Total Score: 12 024 12:52 PM SUPERVISOR AIR CONDITIONING INSTALLER documented as of this encounter Care Teams Working Second Hand Relationship Specialty Start Date End Date Monty Musa MD PCP - General Family Medicine 08/13/21 Alfonso Tang Family [facility] 08/13/21 Dayanara Bee MD [address] [place] [address] 75 [place], [place] [phone] Pediatrics 12/26/14 Min Lange MD [address] [address] Neurology 03/30/16 Marlo Madsen MD [address] [place] [address] Cardiology 10/27/16 Mel Buckley, DIAZ Nurse Coordinator Physical Medicine and Rehabilitation 12/02/16 Douglas Cadet MD Gastroenterology 08/13/21 Rosalba Pendleton APRN MANAGER EDITORIAL [address] [place] [address], [place] [address] Nurse Practitioner Neurology 09/05/21 Marlo Madsen MD [address] [place] [address] 285855 Assigned Heart and Vascular Provider 03/14/22 Abby Vasquez MD [address] [place] [address] 698205 Gastroenterology 07/16/22 Airam Hodges PA-C [address] [place] [address] 182175 Physician Cigarette Book Maker Surgery 07/19/23 Zain Quintana MD [address] [place] [address] 863065 Assigned Surgical Provider 10/07/23 Latricia Pettit PA-C [address] [place] [address] Assigned Gastroenterology Provider 10/15/23 Torri Francois MD [address] [place] [address] Assigned Neuroscience Provider 10/05/24 11/04/24 documented as of this encounter
--- OUTSIDE RECORDS SUMMARY | 2024-12-11 13:42 | XMS_ITS | CCD ---
Author Name Interface, [id number] Address [address] [place], [place] [address]N [place] [address] [facility] Oncology Address [address] [place] [address] Care Team Providers Care Crnp Name Role Phone Lexi Lamas Unavailable Unavailable Reason for Visit Encounters Problems Social History
--- OUTSIDE RECORDS SUMMARY | 2024-12-11 13:42 | XMS_ITS | Encounter Summary ---
Author Organization [place] Address [address] [place] [address]. [place] [address] Care Team Providers Care Floor Inspector Name Role Phone Monty Musa MD Primary Care Provider [phone] Alfonso Tang Unavailable Unavailable Dayanara Bee MD Unavailable [phone] Min Lange MD Unavailable Unavailable BendMarlo molina MD Unavailable [phone] Mel Buckley RN Unavailable [phone] Douglas Cadet MD Unavailable [phone] Rosalba Pendleton SIFTER OPERATOR PRODUCT PROMOTER RETAIL PET Unavaila ble Rosalba Pendleton APRN PRODUCT PROMOTER RETAIL PET Unavaila ble Douglas Cadet MD Unavailable [phone] Marlo Madsen MD Unavailable [phone] Abby Vasquez MD Unavailable Abby Vasquez MD Unavailable Airam Hodges PA-C Unavailable [phone] Zain Quintana MD Unavailable [phone] Latricia Pettit PA-C Unavailable [phone] Torri Francois MD Unavailable Abhishek Acevedo PA-C Unavailable [phone] Encounter Details Date Type Department Care Team (Late st Contact Info) Description 11/23/2022 MyC Medical Advice [facility] Gastroenterology Clinic [address] [place] [phone] Vivian Carter Social History Tobacco Use Types Packs/Day Years Used Date Smoking Tobacco: Never Smokeless Tobacco: Never Alcohol Use Standard Drinks/Week Comments No 0 (1 standard drink = 0.6 oz pur e alcohol) PHQ-2 Answer Date Recorded PHQ-2 Score 3 05/28/2022 Comments No Sex and Gender Information Value Date Recorded Sex Assigned at Female 10/31/2021 7:59 AM REFRIGERATOR REPAIRMAN Legal Sex Female 10:14 AM REFRIGERATOR REPAIRMAN Gender Identity Female 10/31/2021 7:59 AM REFRIGERATOR REPAIRMAN Sexual Orientation Straight 10/31/2021 7: 59 AM REFRIGERATOR REPAIRMAN documented as of this encounter Plan of Treatment Upcoming Encounters Date Type Department Care Team (Late st Contact Info) Description 01/11/2025 9:00 AM CDT Virtual Visit [facility] Neurology Clinic [address]rd [place] [phone] Rosalba Pendleton APRN [address] [id number] [place] [address] 05/01/2025 10:00 AM CDT Office Visit [facility] [place] [id number] [address] [phone] Abhishek Acevedo PA-C 7762 [facility] 103 [place], [place] [address] 05/23/2025 10:40 AM CDT Virtual Visit [facility] Gastroenterology Clinic [address] [place] [phone] Abby Vasquez MD [address] [place] [address] documented as of this encounter Visit Diagnoses Not on filedocumented in this encounter Additional Health Concerns Infection Onset Date Last Indicated Resolved Time Rule Out COVID-19 04/03/2023 04/03/2023 04/04/2023 6:30 PM CDT Assessment Noted Time PHQ-9 Depression Total Score: 11 022 11:52 AM CDT documented as of this encounter Care Teams Floor Inspector Relationship Specialty Start Date End Date Monty Musa MD PCP - General Family Medicine 08/13/21 Alfonso Tang Family Practice 08/13/21 Dayanara Bee MD [address] 424315 Pediatrics 12/26/14 Min Lange MD [address] [address] Neurology 03/30/16 Marlo Madsen MD [address] [place] [address] 909745 Cardiology 10/27/16 Mel Buckley, DIAZ Nurse Coordinator Physical Medicine and Rehabilitation 12/02/16 Douglas Cadet MD Gastroenterology 08/13/21 Rosalba Pendleton APRN PRODUCT PROMOTER RETAIL PET [address] [place] [address] Nurse Practitioner Neurology 09/05/21 Rosalba Pendleton APRN PRODUCT PROMOTER RETAIL PET [address] [place] [address] Assigned Neuroscience Provider 11/09/21 10/04/24 Douglas Cadet MD Assigned Gastroenterology Provider 03/14/22 09/03/23 Marlo Madsen MD [address] [place] [address] 546775 Assigned Heart and Vascular Provider 03/14/22 Abby Vasquez MD [address] [place] [address] 844295 Gastroenterology 07/16/22 Abby Vasquez MD [address] [place] [address] 449595 Assigned PCP 09/26/22 10/06/23 Airam Hodges PA-C 500 [place], [place] 130375 Physician Civil Structural Designer Surgery 07/19/23 Zain Quintana MD [address] [place] [address] 420845 Assigned Surgical Provider 10/07/23 Latricia Pettit PA-C [address] [place] [address] 992505 Assigned Gastroenterology Provider 10/15/23 Torri Francois MD [address] [place] [address] Assigned Neuroscience Provider 10/05/24 11/04/24 Abhishek Acevedo PA-C [address] [facility] [address] [place] [address] Assigned Neuroscience Provider 11/05/24 documented as of this encounter
--- OUTSIDE RECORDS SUMMARY | 2024-12-11 13:42 | XMS_ITS | Encounter Summary ---
Author Organization [facility] Address [address] [place] [address]. [place] [address] Care Team Providers Care Museum Guide Name Role Phone Monty Musa MD Primary Care Provider [phone] Alfonso Tang Unavailable Unavailable Dayanara Bee MD Unavailable [phone] Min Lange MD Unavailable Unavailable BendMarlo molina MD Unavailable +[phone] Mel Buckley RN Unavailable [phone] Douglas Cadet MD Unavailable [phone] Rosalba Pendleton DATA MANAGEMENT ENGINEER PARCEL POST OFFICER Unavaila ble Rosalba Pendleton APRN PARCEL POST OFFICER Unavaila ble Douglas Cadet MD Unavailable [phone] Marlo Madsen MD Unavailable [phone] Abby Vasquez MD Unavailable Abby Vasquez MD Unavailable Airam Hodges PA-C Unavailable [phone] Zain Quintana MD Unavailable [phone] Latricia Pettit PA-C Unavailable [phone] Torri Francois MD Unavailable [phone] Abhishek Acevedo PA-C Unavailable [phone] Encounter Details Date Type Department Care Team (Late st Contact Info) Description 11/03/2022 MyC Medical Advice [facility] [address] [place] [phone] Cierra Perez RN Social History Tobacco Use Types Packs/Day Years Used Date Smoking Tobacco: Never Smokeless Tobacco: Never Alcohol Use Standard Drinks/Week Comments No 0 (1 standard drink = 0.6 oz pur e alcohol) PHQ-2 Answer Date Recorded PHQ-2 Score 3 05/28/2022 Comments No Sex and Gender Information Value Date Recorded Sex Assigned at Female 10/31/2021 7:59 AM BIAS CUTTING MACHINE OPERATOR VERTICAL Legal Sex Female 10:14 AM BIAS CUTTING MACHINE OPERATOR VERTICAL Gender Identity Female 10/31/2021 7:59 AM BIAS CUTTING MACHINE OPERATOR VERTICAL Sexual Orientation Straight 10/31/2021 7: 59 AM BIAS CUTTING MACHINE OPERATOR VERTICAL documented as of this encounter Plan of Treatment Upcoming Encounters Date Type Department Care Team (Late st Contact Info) Description 01/11/2025 9:00 AM CDT Virtual Visit [facility] [address] [place] [phone] Rosalba Pendleton, MAXIMILIANO [address] [id number] [place] [address] 05/01/2025 10:00 AM CDT Office Visit [facility] [place] [id number] [address] [phone] Abhishek Acevedo PA-C 5626 [facility] 103 [place], [place] [id number] 05/23/2025 10:40 AM CDT Virtual Visit [facility] [address] [place] [phone] Abby Vasquez MD [address] [place] [address] documented as of this encounter Visit Diagnoses [...] Family Practice 08/13/21 Dayanara Bee MD [address] [address] Pediatrics 12/26/14 Min Lange MD [address] [address] Neurology 03/30/16 Marlo Madsen MD [address] [place] [address] Cardiology 10/27/16 Mel Buckley, RN Nurse Coordinator Physical Medicine and Rehabilitation 12/02/16 Douglas Cadet MD Gastroenterology 08/13/21 Rosalba Pendleton APRN PARCEL POST OFFICER [address] [place] [address] Nurse Practitioner Neurology 09/05/21 Rosalba Pendleton APRN PARCEL POST OFFICER [address] [place] [address] 12722 Assigned Neuroscience Provider 11/09/21 10/04/24 Douglas Cadet MD Assigned Gastroenterology Provider 03/14/22 09/03/23 Marlo Madsen MD [address] [place] [address] 475565 Assigned Heart and Vascular Provider 03/14/22 Abby Vasquez MD [address] [place] [address] 938975 Gastroenterology 07/16/22 Abby Vasquez MD [address] [place] [address] 996825 Assigned PCP 09/26/22 10/06/23 Airam Hodges PA-C 500 [place], [place] 980565 Physician Customer Service Sales Consultant Surgery 07/19/23 Zain Quintana MD [address] [place] [address] 763415 Assigned Surgical Provider 10/07/23 Latricia Pettit PA-C [address] [place] [address] 656745 Assigned Gastroenterology Provider 10/15/23 Torri Francois MD [address] [place] [address] Assigned Neuroscience Provider 10/05/24 11/04/24 Abhishek Acevedo PA-C [address] [facility] [address] [address] Assigned Neuroscience Provider 11/05/24 documented as of this encounter
--- OUTSIDE RECORDS SUMMARY | 2024-12-11 13:42 | XMS_ITS | Encounter Summary ---
Author Organization [place] [facility] Address [address] [place] [address]. [place] [address] Care Team Providers Care Binder Stripper Hand Name Role Phone Monty Musa MD Primary Care Provider [phone] Alfonso Tang Unavailable Unavailable Dayanara Bee MD Unavailable [phone] Min Lange MD Unavailable Unavailable BendMarlo molina MD Unavailable [phone] Mel Buckley RN Unavailable [phone] Douglas Cadet MD Unavailable [phone] Rosalba Pendleton SALESPERSON HANDBAGS TREATING INSPECTOR Unavaila ble Rosalba Pendleton APRN TREATING INSPECTOR Unavaila ble Douglas Cadet MD Unavailable [phone] Marlo Madsen MD Unavailable [phone] Abby Vasquez MD Unavailable Abby Vasquez MD Unavailable Airam Hodges PA-C Unavailable [phone] Zain Quintana MD Unavailable [phone] Latricia Pettit PA-C Unavailable [phone] Torri Francois MD Unavailable Abhishek Acevedo PA-C Unavailable Encounter Details Date Type Department Care Team (Late st Contact Info) Description 02/20/2022 MyC Medical Advice [facility] [address] [place] [phone] Cindy Vines CMA Social History Tobacco Use Types Packs/Day Years Used Date Smoking Tobacco: Never Smokeless Tobacco: Never Alcohol Use Standard Drinks/Week Comments No 0 (1 standard drink = 0.6 oz pur e alcohol) PHQ-2 Answer Date Recorded PHQ-2 Score 4 01/14/2022 Comments No Sex and Gender Information Value Date Recorded Sex Assigned at Female 10/31/2021 7:59 AM ADULT NEUROLOGIST Legal Sex Female 10:14 AM ADULT NEUROLOGIST Gender Identity Female 10/31/2021 7:59 AM ADULT NEUROLOGIST Sexual Orientation Straight 10/31/2021 7: 59 AM ADULT NEUROLOGIST documented as of this encounter Plan of Treatment Upcoming Encounters Date Type Department Care Team (Late st Contact Info) Description 01/11/2025 9:00 AM CDT Virtual Visit [facility] [address] [place] [phone] Rosalba Pendleton, MAXIMILIANO [address] [id number] [place] [address] 05/01/2025 10:00 AM CDT Office Visit [facility] [place] [id number] [address] [phone] Abhishek Acevedo PA-C 4333 [facility] 103 [place], [place] [phone] 05/23/2025 10:40 AM CDT Virtual Visit [facility] [address] [place] [phone] Abby Vasquez MD [address] [place] [address] documented as of this encounter Visit Diagnoses Not on filedocumented in this encounter Additional Health Concerns Infection Onset Date Last Indicated Resolved Time Rule Out COVID-19 04/03/2023 04/03/2023 04/04/2023 6:30 PM CDT Assessment Noted Time PHQ-9 Depression Total Score: 17 01/14/ 022 7:02 AM CDT documented as of this encounter Care Teams Binder Stripper Hand Relationship Specialty Start Date End Date Monty Musa MD PCP - General Family Medicine 08/13/21 Alfonso Tang Family Practice 08/13/21 Dayanara Bee MD [address] [address] Pediatrics 12/26/14 Min Lange MD [address] [address] Neurology 03/30/16 Marlo Madsen MD [address] [place] [address] Cardiology 10/27/16 Mel Buckley, RN Nurse Coordinator Physical Medicine and Rehabilitation 12/02/16 Douglas Cadet MD Gastroenterology 08/13/21 Rosalba Pendleton APRN TREATING INSPECTOR [address] [place] [address] Nurse Practitioner Neurology 09/05/21 Rosalba Pendleton APRN TREATING INSPECTOR [address] [place] [address] Assigned Neuroscience Provider 11/09/21 10/04/24 Douglas Cadet MD Assigned Gastroenterology Provider 03/14/22 09/03/23 Marlo Madsen MD [address] [place] [address] 708905 Assigned Heart and Vascular Provider 03/14/22 Abby Vasquez MD [address] [place] [address] 551745 Gastroenterology 07/16/22 Abby Vasquez MD [address] [place] [address] 284945 Assigned PCP 09/26/22 10/06/23 Airam Hodges PA-C 500 [place], [place] 836395 Physician Stenographer Print Shop Surgery 07/19/23 Zain Quintana MD [address] [place] [address] 070135 Assigned Surgical Provider 10/07/23 Latricia Pettit PA-C [address] [place] [address] 887515 Assigned Gastroenterology Provider 10/15/23 Torri Francois MD [address] [place] [address] Assigned Neuroscience Provider 10/05/24 11/04/24 Abhishek Acevedo PA-C [address] [facility] [address] [address] Assigned Neuroscience Provider 11/05/24 documented as of this encounter
--- OUTSIDE RECORDS SUMMARY | 2024-12-11 13:42 | XMS_ITS | Encounter Summary ---
Author Organization [facility] Address [address] [place] [address]. [place] [address] Care Team Providers Care Sales Administrator Name Role Phone Monty Musa MD Primary Care Provider Alfonso Tang Unavailable Unavailable Dayanara Bee MD Unavailable [phone] Min Lange MD Unavailable Unavailable Marlo Madsen MD Unavailable [phone] Mle Buckley RN Unavailable [phone] Douglas Cadet MD Unavailable Rosalba Pendleton MANAGER PATIENT GLASS BENDER Unavaila ble Rosalba Pendleton APRN GLASS BENDER Unavaila ble Marlo Madsen MD Unavailable [phone] Abby Vasquez MD Unavailable Airam Hodges PA-C Unavailable [phone] Zain Quintana MD Unavailable [phone] Latricia Pettit PA-C Unavailable [phone] Torri Francois MD Unavailable [phone] Abhishek Acevedo PA-C Unavailable [phone] Encounter Details Date Type Department Care Team (Late st Contact Info) Description 11/17/2023 MyC Medical Advice [facility] [address] [place] [phone] Abby Vasquez MD [address] [place] [address] Social History Tobacco Use Types Packs/Day Years [...] Sex Assigned at Female 10/31/2021 7:59 AM COLLECTION TECHNICIAN Legal Sex Female 10:14 AM COLLECTION TECHNICIAN Gender Identity Female 10/31/2021 7:59 AM COLLECTION TECHNICIAN Sexual Orientation Straight 10/31/2021 7: 59 AM COLLECTION TECHNICIAN documented as of this encounter Plan of Treatment Upcoming Encounters Date Type Department Care Team (Late st Contact Info) Description 01/11/2025 9:00 AM CDT Virtual Visit [facility] [address] [place] [phone] Rosalba Pendleton, MAXIMILIANO [address] [id number] [place] [address] 05/01/2025 10:00 AM CDT Office Visit [facility] [place] [id number] [address] [phone] Abhishek Acevedo PA-C 0935 [facility] 103 [place], [place] [phone] 05/23/2025 10:40 AM CDT Virtual Visit [facility] [address] [place] [address] Abby Vasquez MD 909 [place] [address] documented as of this encounter Visit Diagnoses Not on filedocumented in this encounter Additional Health Concerns Assessment Noted Time PHQ-9 Depression Total Score: 12 024 12:52 PM COLLECTION TECHNICIAN documented as of this encounter Care Teams Sales Administrator Relationship Specialty Start Date End Date Monty Musa MD PCP - General Family Medicine 08/13/21 Alfonso Tang Family Practice 08/13/21 Dayanara Bee MD [address] [place] [address] Pediatrics 12/26/14 Min Lange MD [address] [place] [address] Neurology 03/30/16 Marlo Madsen MD [address] [place] [address] 211595 Cardiology 10/27/16 Mel Buckley, RN Nurse Coordinator Physical Medicine and Rehabilitation 12/02/16 Douglas Cadet MD Gastroenterology 08/13/21 Rosalba Pendleton APRN GLASS BENDER [address] [place] [address] 699315 Nurse Practitioner Neurology 09/05/21 Rosalba Pendleton APRN GLASS BENDER [address] [place] [address] 806795 Assigned Neuroscience Provider 11/09/21 10/04/24 Marlo Madsen MD [address] 456905 Assigned Heart and Vascular Provider 03/14/22 Abby Vasquez MD [address] [place] [address] 929525 Gastroenterology 07/16/22 Airam Hodges PA-C 500 [place], [place] 176735 Physician Cloth Washer Surgery 07/19/23 Zain Quintana MD [address] [place] [address] 013015 Assigned Surgical Provider 10/07/23 Latricia Pettit PA-C [address] [place] [address] 714965 Assigned Gastroenterology Provider 10/15/23 Torri Francois MD [address] [place] [address] 179335 Assigned Neuroscience Provider 10/05/24 11/04/24 Abhishek Acevedo PA-C [address] [address] Assigned Neuroscience Provider 11/05/24 documented as of this encounter
--- OUTSIDE RECORDS SUMMARY | 2024-12-11 13:42 | XMS_ITS | Encounter Summary ---
Author Organization [facility] Address [address] [place] [address]. [place] [address] Care Team Providers Care Police Specialist Name Role Phone Monty Musa MD Primary Care Provider Alfonso Tang Unavailable Unavailable Dayanara Bee MD Unavailable [phone] Min Lange MD Unavailable Unavailable Marlo Madsen MD Unavailable [phone] Mel Buckley RN Unavailable [phone] Douglas Cadet MD Unavailable Rosalba Pendleton BUSINESS MANAGER COLLEGE OR UNIVERSITY MARKETING TECHNOLOGY SPECIALIST Unavaila ble Rosalba Pendleton APRN MARKETING TECHNOLOGY SPECIALIST Unavaila ble Marlo Madsen MD Unavailable [phone] Abby Vasquez MD Unavailable Airam Hodges PA-C Unavailable [phone] Zain Quintana MD Unavailable [phone] Latricia Pettit PA-C Unavailable [phone] Torri Francois MD Unavailable [phone] Abhishek Acevedo PA-C Unavailable [phone] Encounter Details Date Type Department Care Team (Late st Contact Info) Description 12/06/2023 MyC Medical Advice [facility] [address] [place] [phone] Miriam Yepez RN Social History Tobacco Use [...] Sex Assigned at Female 10/31/2021 7:59 AM JIGGER OPERATOR Legal Sex Female 10:14 AM JIGGER OPERATOR Gender Identity Female 10/31/2021 7:59 AM JIGGER OPERATOR Sexual Orientation Straight 10/31/2021 7: 59 AM JIGGER OPERATOR documented as of this encounter Plan of Treatment Upcoming Encounters Date Type Department Care Team (Late Contact Info) Description 01/11/2025 9:00 AM CDT Virtual Visit [facility] [address] [phone] Rosalba Pendleton APRN [address] [id number] [place] [address] 05/01/2025 10:00 AM CDT Office Visit [facility] [address] [phone] Abhishek Acevedo PA-C [address] [address] 05/23/2025 10:40 AM CDT Virtual Visit [facility] [address] [place] [phone] Abby Vasquez MD [address] [place] [address] documented as of this encounter Visit Diagnoses Not on filedocumented in this encounter Additional Health Concerns Assessment Noted Time PHQ-9 Depression Total Score: 12 024 12:52 PM JIGGER OPERATOR documented as of this encounter Care Teams Police Specialist Relationship Specialty Start Date End Date Monty Musa MD PCP - General Family Medicine 08/13/21 Alfonso Tang Family Practice 08/13/21 Dayanara Bee MD [address] 119725 Pediatrics 12/26/14 Min Lange MD [address] [address] Neurology 03/30/16 Marlo Madsen MD [address] 197765 Cardiology 10/27/16 Mel Buckley, RN Nurse Coordinator Physical Medicine and Rehabilitation 12/02/16 Douglas Cadet MD Gastroenterology 08/13/21 Rosalba Pendleton APRN MARKETING TECHNOLOGY SPECIALIST 909 [id number] [place] [address] Nurse Practitioner Neurology 09/05/21 Rosalba Pendleton APRN MARKETING TECHNOLOGY SPECIALIST 909 [id number] [place] [address] Assigned Neuroscience Provider 11/09/21 10/04/24 Marlo Madsen MD [address] [address] Assigned Heart and Vascular Provider 03/14/22 Abby Vasquez MD [address] [place] [address] Gastroenterology 07/16/22 Airam Hodges PA-C [address] [place] [address] Physician Masonry Inspector Surgery 07/19/23 Zain Quintana MD [address] [place] [address] Assigned Surgical Provider 10/07/23 Latricia Pettit PA-C [address] [place] [address] Assigned Gastroenterology Provider 10/15/23 Torri Francois MD [address] [place] [address] 193275 Assigned Neuroscience Provider 10/05/24 11/04/24 Abhishek Acevedo PA-C [address] [address] Assigned Neuroscience Provider 11/05/24 documented as of this encounter
--- OUTSIDE RECORDS SUMMARY | 2024-12-11 13:42 | XMS_ITS | Encounter Summary ---
Author Organization [facility] Address [address] [place] [address]. [place] [address] Care Team Providers Care Part Time Receptionist Name Role Phone Alfonso Tang Primary Care Provider Unavailabl Monty Olvera MD Primary Care Provider Alfonso Tang Unavailable Unavailable Dayanara Bee MD Unavailable [phone] Min Lange MD Unavailable Unavailable Marlo Madsen MD Unavailable [phone] Mel Buckley RN Unavailable [phone] Douglas Cadet MD Unavailable [phone] Rosalba Pendleton APRN CHRISTIAN SCIENCE NURSE Unavaila ble Rosalba Pendleton APRN CHRISTIAN SCIENCE NURSE Unavaila ble Douglas Cadet MD Unavailable [phone] Marlo Madsen MD Unavailable [phone] Abby Vasquez MD Unavailable Abby Vasquez MD Unavailable Airam Hodges PA-C Unavailable [phone] Zain Quintana MD Unavailable [phone] Latricia Pettit PA-C Unavailable [phone] Torri Francois MD Unavailable Abhishek Acevedo PA-C Unavailable [phone] Encounter Details Date Type Department Care Team (Late Contact Info) Description 12/12/2016 MyC Medical Advice [facility] [address] [address] Chaitanya Garza MD [address] [place] [address] [address] [place], [place] [phone] Social History Tobacco Use Types Packs/Day Years Used Date Smoking Tobacco: Never Smokeless Tobacco: Never Alcohol Use Standard Drinks/Week Comments No 0 (1 standard drink = 0.6 oz pur e alcohol) Comments No Sex and Gender Information Value Date Recorded Sex Assigned at Female 10/31/2021 7:59 AM WINDING LATHE OPERATOR Legal Sex Female 10:14 AM WINDING LATHE OPERATOR Gender Identity Female 10/31/2021 7:59 AM WINDING LATHE OPERATOR Sexual Orientation Straight 10/31/2021 7: 59 AM WINDING LATHE OPERATOR documented as of this encounter Plan of Treatment Upcoming Encounters Date Type Department Care Team (Late st Contact Info) Description 01/11/2025 9:00 AM CDT Virtual Visit [facility] [address] [place] [address] Rosalba Pendleton, WELL SERVICE PUMP EQUIPMENT OPERATOR [address] [id number] [place] [address] 05/01/2025 10:00 AM CDT Office Visit [facility] [place] [address] [address] Abhishek Acevedo PA-C 7060 [facility] 103 [place], [place] [address] 05/23/2025 10:40 AM CDT Virtual Visit [facility] [address] [place] [phone] Abby Vasquez MD 909 [place] [address] documented as of this encounter Visit Diagnoses Not on filedocumented in this encounter Additional Health Concerns Infection Onset Date Last Indicated Resolved Time Rule Out COVID-19 04/03/2023 04/03/2023 04/04/2023 6:30 PM CDT documented as of this encounter Care Teams Part Time Receptionist Relationship Specialty Start Date End Date Alfonso Tang PCP - General Family Practice 09/04/13 08/12/21 Monty Musa MD PCP - General Family Medicine 08/13/21 Alfonso Tang Family Practice 08/13/21 Dayanara Bee MD [address] [address] Pediatrics 12/26/14 Min Lange MD [address] [address] Neurology 03/30/16 Marlo Madsen MD [address] [address] Cardiology 10/27/16 Mel Buckley, RN Nurse Coordinator Physical Medicine and Rehabilitation 12/02/16 Douglas Cadet MD Gastroenterology 08/13/21 Rosalba Pendleton APRN CHRISTIAN SCIENCE NURSE [address] [facility] [id number] [place] [address] Nurse Practitioner Neurology 09/05/21 Rosalba Pendleton APRN CHRISTIAN SCIENCE NURSE [address] [place] [address] [id number] [place], [place] 085605 Assigned Neuroscience Provider 11/09/21 10/04/24 Douglas Cadet MD Assigned Gastroenterology Provider 03/14/22 09/03/23 Marlo Madsen MD [address] [place] [address] 75 [place], [place] 454945 Assigned Heart and Vascular Provider 03/14/22 Abby Vasquez MD [address] [place] [address] 430235 Gastroenterology 07/16/22 Abby Vasquez MD [address] [place] [address] 498315 Assigned PCP 09/26/22 10/06/23 Airam Hodges PA-C [address] [place] [address] 924885 Physician Geology Faculty Member Surgery 07/19/23 Zain Quintana MD [address] [place] [address] 561035 Assigned Surgical Provider 10/07/23 Latricia Pettit PA-C [address] [place] [address] Assigned Gastroenterology Provider 10/15/23 Torri Francois MD [address] [place] [address] Assigned Neuroscience Provider 10/05/24 11/04/24 Abhishek Acevedo PA-C [address] [facility] [address] [address] Assigned Neuroscience Provider 11/05/24 documented as of this encounter
--- OUTSIDE RECORDS SUMMARY | 2024-12-11 13:42 | XMS_ITS | Encounter Summary ---
Author Organization [facility] Address [address] [place] [address]. [place] [address] Care Team Providers Care Upholstery Trimmer Name Role Phone Monty Musa MD Primary Care Provider [phone] Alfonso Tang Unavailable Unavailable Dayanara Bee MD Unavailable [phone] Min Lange MD Unavailable Unavailable BendMarlo molina MD Unavailable [phone] Mel Buckley RN Unavailable [phone] Douglas Cadet MD Unavailable [phone] Rosalba Pendleton SURVEILLANCE CAMERA TECHNICIAN SHEAR OPERATOR HELPER Unavaila ble Rosalba Pendleton APRN SHEAR OPERATOR HELPER Unavaila ble Douglas Cadet MD Unavailable [phone] Marlo Madsen MD Unavailable [phone] Abby Vasquez MD Unavailable Abby Vasquez MD Unavailable Airam Hodges PA-C Unavailable [phone] Zain Quintana MD Unavailable [phone] Latricia Pettit PA-C Unavailable [phone] Torri Francois MD Unavailable Abhishek Acevedo PA-C Unavailable [phone] Encounter Details Date Type Department Care Team (Late st Contact Info) Description 09/07/2021 MyC Medical Advice Initial Department Andie Raya Social History Tobacco Use Types Packs/Day Years Used Date Smoking Tobacco: Never Assessed Comments No Sex and Gender Information Value Date Recorded Sex Assigned at Female 10/31/2021 7:59 AM AEROSPACE PROJECT ENGINEER Legal Sex Female 10:14 AM AEROSPACE PROJECT ENGINEER Gender Identity Female 10/31/2021 7:59 AM AEROSPACE PROJECT ENGINEER Sexual Orientation Straight 10/31/2021 7: 59 AM AEROSPACE PROJECT ENGINEER COVID-19 Exposure Response Date Recorded In the last month, have you been in contact with someone who was confirmed or suspected to have Coronavirus / COVID-19? Unable to assess 08/13/2021 10:06 AM AEROSPACE PROJECT ENGINEER documented as of this encounter Plan of Treatment Upcoming Encounters Date Type Department Care Team (Late st Contact Info) Description 01/11/2025 9:00 AM CDT Virtual Visit [facility] [address] [address] Rosalba Pendleton, MAXIMILIANO SHEAR OPERATOR HELPER [address] [place] [address] [id number] [place], [place] 09[address] 05/01/2025 10:00 AM CDT Office Visit [facility] [place] [phone] [address] [phone] Abhishek Acevedo PA-C 6363 [facility] 103 [place], [place] [id number] 05/23/2025 10:40 AM CDT Virtual Visit [facility] [address]th [place] [phone] Abby Vasquez MD [address] [place] [address] 377795 documented as of this encounter Visit Diagnoses Not on filedocumented in this encounter Additional Health Concerns Infection Onset Date Last Indicated Resolved Time Rule Out COVID-19 04/03/2023 04/03/2023 04/04/2023 6:30 PM CDT documented as of this encounter Care Teams Upholstery Trimmer Relationship Specialty Start Date End Date Monty Musa MD PCP - General Family Medicine 08/13/21 Alfonso Tang Family Practice 08/13/21 Dayanara Bee MD [address] [id number] Pediatrics 12/26/14 Min Lange MD [address] [address] Neurology 03/30/16 Marlo Madsen MD [address] [address] Cardiology 10/27/16 Mel Buckley, RN Nurse Coordinator Physical Medicine and Rehabilitation 12/02/16 Douglas Cadet MD Gastroenterology 08/13/21 Rosalba Pendleton APRN SHEAR OPERATOR HELPER [address] [place] [address] Nurse Practitioner Neurology 09/05/21 Rosalba Pendleton APRN SHEAR OPERATOR HELPER [address] [address] Assigned Neuroscience Provider 11/09/21 10/04/24 Douglas Cadet MD Assigned Gastroenterology Provider 03/14/22 09/03/23 Marlo Madsen MD [address] [place] [address] Assigned Heart and Vascular Provider 03/14/22 Abby Vasquez MD [address] [place] [address] Gastroenterology 07/16/22 Abby Vasquez MD [address] [place] [address] Assigned PCP 09/26/22 10/06/23 Airam Hodges PA-C [address] [place] [address] 818655 Physician Furnace Checker Surgery 07/19/23 Zain Quintana MD [address] [place] [address] 466775 Assigned Surgical Provider 10/07/23 Latricia Pettit PA-C [address] [place] [address] 690055 Assigned Gastroenterology Provider 10/15/23 Torri Francois MD [address] [place] [address] 450015 Assigned Neuroscience Provider 10/05/24 11/04/24 Abhishek Acevedo PA-C [address] [address] Assigned Neuroscience Provider 11/05/24 documented as of this encounter
--- OUTSIDE RECORDS SUMMARY | 2024-12-11 13:42 | XMS_ITS | Continuity of Care Document ---
Author Organization [facility] Address [address] [facility] [address] [place] [address] Phone Care Team Providers Care Stable Manager Name Role Phone uSkumar Costello PsyD Unavailable Unavailable Procedures Procedure Date Psychother Ov/op-behv Mod Psychother Ov/op-behv Mod Psychother Ov/op-behv Mod Psychother Ov/op-behv Mod Psychother Ov/op-behv Mod Psychother Ov/op-behv Mod 45-5 11 Psychother Ov/op-behv Mod 45-5 11 Advance Directives Directive Yes / No Effective Date File Name No Information Encounters Encounter Description Practice Location Reason(s) For Visit Diagnoses Date Provider Providers Copied on Encounter [facility], [address], [place], [place], [id number], [place] tel:[phone] Michelle [facility] 7390 No Information Pravin Patino. [address] , [address], [place], [place], [address], [place]. tel:[phone] Referring Provider: Alfonso Tang MD, [address] [place], [address]. tel:[phone] [facility], [address], [place], [place], [address], tel:[phone] Michelle [facility] 7374 No Information Lexau Sukumar. [address], [address], [place], [place], [address], [place]. tel:[phone] Referring Provider: Alfonso Tang MD, [address] [place], [address]. tel:[phone] [facility], [address], [place], [place], [address], [place] tel:[phone] [facility] 7390 No Information Lexau Sukumar. [address], [address], [facility] [place], [address], [place]. tel:[phone] Referring Provider: Alfonso Tang MD, [address] [place], [address]. tel:[phone] [facility], [address], [place], [place], [address], [place] tel:[phone] [facility] 7390 No Information Lexau Sukumar. [address], [address], [place], [place], [address], [place]. tel:[phone] Referring Provider: Alfonso Tang MD, [address] [place], [address]. tel:[phone] [facility], [address], [place], [place], [address], [place] tel:[phone] [facility] 7390 No Information Lexau Sukumar. [address], [address], [place], [place], [address], [place]. tel:[phone] Referring Provider: Alfonso Tang MD, [address] [place], [address]. tel:[phone] [facility], [address] [facility] [address], [place], [place], [address], tel:[phone] Michelle [place] [facility] 7390 No Information Lexau Sukumar. [address] [facility], [address], [place], [place], [address], . tel:[phone] Referring Provider: Alfonso Tang MD, [address] [place], [address]. tel:[phone] [facility] [address] [facility] [address], [place], [place], [address], tel:[phone] Michelle [facility] 7390 No Information Jose Manuelau Sukumar. [address] [facility], [address], [place], [place], [address], [place]. tel:[phone] Referring Provider: Alfonso Tang MD, [address] [place], [address]. tel:[phone] Family History Family Member Type Diagnosis Age At Onset No Information Payers Payer name Insurance type Covered libertarian ID Margi jalloh(s) Devonte Lugo [id number] Social History Type Description Quantity Date Captured [...]
--- OUTSIDE RECORDS SUMMARY | 2024-12-11 13:42 | XMS_ITS | Encounter Summary ---
Author Organization [facility] Address [address] [place] [address]. [place] [address] Care Team Providers Care Corporate Relations Director Name Role Phone Alfonso Tang Primary Care Provider Unavailabl Monty Olvera MD Primary Care Provider [phone] Alfonso Tang Unavailable Unavailable Dayanara Bee MD Unavailable [phone] Min Lange MD Unavailable Unavailable Marlo Madsen MD Unavailable [phone] Mel Buckley RN Unavailable [phone] Douglas Cadet MD Unavailable [phone] Rosalba Pendleton APRN CONTROL ROOM TECHNICIAN Unavaila ble Rosalba Pendleton APRN CONTROL ROOM TECHNICIAN Unavaila ble Douglas Cadet MD Unavailable [phone] Marlo Madsen MD Unavailable [phone] Abby Vasquez MD Unavailable Abby Vasquez MD Unavailable Airam Hodges PA-C Unavailable [phone] Zain Quintana MD Unavailable [phone] Latricia Pettit PA-C Unavailable [phone] Torri Francois MD Unavailable Abhishek Acevedo PA-C Unavailable [phone] Encounter Details Date Type Department Care Team [...] Sex Assigned at Female 10/31/2021 7:59 AM COMMERCIAL INSULATOR Legal Sex Female 10:14 AM COMMERCIAL INSULATOR Gender Identity Female 10/31/2021 7:59 AM COMMERCIAL INSULATOR Sexual Orientation Straight 10/31/2021 7: 59 AM COMMERCIAL INSULATOR documented as of this encounter Plan of Treatment Upcoming Encounters Date Type Department Care Team (Late st Contact Info) Description 01/11/2025 9:00 AM CDT Virtual Visit [facility] [address] [place] [address] Rosalba Pendleton, MEDIA PRODUCTION OPERATOR CONTROL ROOM TECHNICIAN [address] [place] [address] [id number] [place], [place] [address] 05/01/2025 10:00 AM CDT Office Visit [facility] [address] [phone] Abhishek Acevedo PA-C [address] [address] 05/23/2025 10:40 AM CDT Virtual Visit [facility] Gastroenterology [facility] [address] [place] [address] Abby Vasquez MD [address] [place] [address] 909005 documented as of this encounter Visit Diagnoses Not on filedocumented in this encounter Additional Health Concerns Infection Onset Date Last Indicated Resolved Time Rule Out COVID-19 04/03/2023 04/03/2023 04/04/2023 6:30 PM CDT documented as of this encounter Care Teams Corporate Relations Director Relationship Specialty Start Date End Date LorrainejoeAlfonso walker Odalis PCP - General Family Practice 09/04/13 08/12/21 Monty Musa MD PCP - General Family Medicine 08/13/21 Alfonso Tang Family Practice 08/13/21 Dayanara Bee MD [address] 785335 Pediatrics 12/26/14 Min Lange MD [address] [address] Neurology 03/30/16 Marlo Madsen MD [address] 246445 Cardiology 10/27/16 Mel Buckley, RN Nurse Coordinator Physical Medicine and Rehabilitation 12/02/16 Douglas Cadet MD Gastroenterology 08/13/21 Rosalba Pendleton APRN CONTROL ROOM TECHNICIAN [address] [place], [place] [address] Nurse Practitioner Neurology 09/05/21 Rosalba Pendleton APRN CONTROL ROOM TECHNICIAN [address] 867655 Assigned Neuroscience Provider 11/09/21 10/04/24 Douglas Cadet MD Assigned Gastroenterology Provider 03/14/22 09/03/23 Marlo Madsen MD [address] [place] [address] 810495 Assigned Heart and Vascular Provider 03/14/22 Abby Vasquez MD [address] [place] [address] 227605 Gastroenterology 07/16/22 Abby Vasquez MD [address] [place] [address] 547705 Assigned PCP 09/26/22 10/06/23 Airam Hodges PA-C [address] [place] [address] Physician Sap Abap Programmer Surgery 07/19/23 Zain Quintana MD [address] [place] [address] 852575 Assigned Surgical Provider 10/07/23 Latricia Pettit PA-C [address] [place] [address] 930105 Assigned Gastroenterology Provider 10/15/23 Torri Francois MD [address] [place] [address] 503725 Assigned Neuroscience Provider 10/05/24 11/04/24 Abhishek Acevedo PA-C [address] [place] [address] Assigned Neuroscience Provider 11/05/24 documented as of this encounter
--- OUTSIDE RECORDS SUMMARY | 2024-12-11 13:42 | XMS_ITS | Encounter Summary ---
Author Organization [facility] Address [address] [place] [address]. [place] [address] Care Team Providers Care Parts Remover Name Role Phone Monty Musa MD Primary Care Provider [phone] Alfonso Tang Unavailable Unavailable Dayanara Bee MD Unavailable [phone] Min Lange MD Unavailable Unavailable BendMarlo molina MD Unavailable [phone] Mel Buckley RN Unavailable [phone] Douglas Cadet MD Unavailable [phone] Rosalba Pendleton ELECTRONIC GAME DEVELOPER HAND ETCHER Unavaila ble Rosalba Pendleton APRN HAND ETCHER Unavaila ble Douglas Cadet MD Unavailable [phone] Marlo Madsen MD Unavailable [phone] Abby Vasquez MD Unavailable Abby Vasquez MD Unavailable Airam Hodges PA-C Unavailable [phone] Zain Quintana MD Unavailable [phone] Latricia Pettit PA-C Unavailable [phone] Torri Francois MD Unavailable [phone] Abhishek Acevedo PA-C Unavailable [phone] Encounter Details Date Type Department Care Team (Late Contact Info) Description 11/17/2022 MyC Medical Advice [facility] G[facility]ology [facility] [address] [phone] Abby Vasquez MD [address] [place] [address] 324865 Social History Tobacco Use Types Packs/Day Years Used Date Smoking Tobacco: Never Smokeless Tobacco: Never Alcohol Use Standard Drinks/Week Comments No 0 (1 standard drink = 0.6 oz pur e alcohol) PHQ-2 Answer Date Recorded PHQ-2 Score 3 05/28/2022 Comments No Sex and Gender Information Value Date Recorded Sex Assigned at Female 10/31/2021 7:59 AM LEAD RELAY TESTER Legal Sex Female 10:14 AM LEAD RELAY TESTER Gender Identity Female 10/31/2021 7:59 AM LEAD RELAY TESTER Sexual Orientation Straight 10/31/2021 7: 59 AM LEAD RELAY TESTER documented as of this encounter Plan of Treatment Upcoming Encounters Date Type Department Care Team (Late st Contact Info) Description 01/11/2025 9:00 AM CDT Virtual Visit [facility] [address] [phone] Rosalba Pendleton APRN [address] [id number] [place] [address] 05/01/2025 10:00 AM CDT Office Visit [facility] [place] [address] [address] Abhishek Acevedo PA-C 4325 [facility] 103 [place], [place] [id number] 05/23/2025 10:40 AM CDT Virtual Visit [facility] [address]th [place] [address] Abby Vasquez MD 909 [place], [place] 238425 documented as of this encounter Visit Diagnoses Not on filedocumented in this encounter Additional Health Concerns Infection Onset Date Last Indicated Resolved Time Rule Out COVID-19 04/03/2023 04/03/2023 04/04/2023 6:30 PM CDT Assessment Noted Time PHQ-9 Depression Total Score: 11 022 11:52 AM CDT documented as of this encounter Care Teams Parts Remover Relationship Specialty Start Date End Date Monty Musa MD PCP - General Family Medicine 08/13/21 Alfonso Tang Family Practice 08/13/21 Dayanara Bee MD [address] [address] Pediatrics 12/26/14 Min Lange MD [address] [address] Neurology 03/30/16 Marlo Madsen MD [address] [address] Cardiology 10/27/16 Mel Buckley, RN Nurse Coordinator Physical Medicine and Rehabilitation 12/02/16 Douglas Cadet MD Gastroenterology 08/13/21 Rosalba Pendleton APRN HAND ETCHER [address] [place] [address] [id number] [place], [place] 365[address] Nurse Practitioner Neurology 09/05/21 Rosalba Pendleton APRN HAND ETCHER [address] [place] [address] [id number] [place], [place] 110[address] Assigned Neuroscience Provider 11/09/21 10/04/24 Douglas Cadet MD Assigned Gastroenterology Provider 03/14/22 09/03/23 Marlo Madsen MD [address] [place] [address] 75 [place], [place] 248925 Assigned Heart and Vascular Provider 03/14/22 Abby Vasquez MD [address] [place] [address] 495075 Gastroenterology 07/16/22 Abby Vasquez MD [address] [place] [address] 388565 Assigned PCP 09/26/22 10/06/23 Airam Hodges PA-C [address] [place] [address] 561125 Physician Brazer Production Line Surgery 07/19/23 Zain Quintana MD [address] [place] [address] 395815 Assigned Surgical Provider 10/07/23 Latricia Pettit PA-C [address] [place] [address] Assigned Gastroenterology Provider 10/15/23 Torri Francois MD [address] [place] [address] Assigned Neuroscience Provider 10/05/24 11/04/24 Abhishek Acevedo PA-C [address] [place] [address] Assigned Neuroscience Provider 11/05/24 documented as of this encounter
--- OUTSIDE RECORDS SUMMARY | 2024-12-11 13:42 | XMS_ITS | Encounter Summary ---
Author Organization [facility] Address [address] [place] [address]. [place] [address] Care Team Providers Care Industrial Roof Plumber Name Role Phone Monty Musa MD Primary Care Provider [phone] Alfonso Tang Unavailable Unavailable Dayanara Bee MD Unavailable [phone] Min Lange MD Unavailable Unavailable BendMarlo molina MD Unavailable [phone] Mel Buckley RN Unavailable [phone] Douglas Cadet MD Unavailable [phone] Rosalba Pendleton BARREL RACER CANNON PINION ADJUSTER Unavaila ble Rosalba Pendleton APRN CANNON PINION ADJUSTER Unavaila ble Douglas Cadet MD Unavailable [phone] Marlo Madsen MD Unavailable [phone] Abby Vasquez MD Unavailable Abby Vasquez MD Unavailable Airam Hodges PA-C Unavailable [phone] Zain Quintana MD Unavailable [phone] Latricia Pettit PA-C Unavailable [phone] Torri Francois MD Unavailable Abhishek Acevedo PA-C Unavailable Encounter Details Date Type Department Care Team (Late Contact Info) Description 07/10/2023 MyC Medical Advice [facility] Gastroenterology Clinic [address] [place] [phone] Abby Vasquez MD [address] [place] [address] [id number] Social History Tobacco Use Types Packs/Day Years [...] Sex Assigned at Female 10/31/2021 7:59 AM LINE ERECTOR APPRENTICE Legal Sex Female 10:14 AM LINE ERECTOR APPRENTICE Gender Identity Female 10/31/2021 7:59 AM LINE ERECTOR APPRENTICE Sexual Orientation Straight 10/31/2021 7: 59 AM LINE ERECTOR APPRENTICE documented as of this encounter Plan of Treatment Upcoming Encounters Date Type Department Care Team (Late st Contact Info) Description 01/11/2025 9:00 AM CDT Virtual Visit [facility] [address] [place] [phone] Rosalba Pendleton, MAXIMILIANO [address] [id number] [place] [address] 05/01/2025 10:00 AM CDT Office Visit [facility] [place] [phone] [address] [address] Abhishek Acevedo PA-C 4900 [facility] 103 [place], [place] [id number] 05/23/2025 10:40 AM CDT Virtual Visit [facility] [place] [address] [place] [address] 4th [place] [phone] Abby Vasquez MD [address] [place] [address] documented as of this encounter Visit Diagnoses Not on filedocumented in this encounter Additional Health Concerns Assessment Noted Time PHQ-9 Depression Total Score: 11 022 11:52 AM CDT documented as of this encounter Care Teams Industrial Roof Plumber Relationship Specialty Start Date End Date Monty Musa MD PCP - General Family Medicine 08/13/21 Alfonso Tang Family Practice 08/13/21 Dayanara Bee MD [address] 396055 Pediatrics 12/26/14 Min Lange MD [address] [address] Neurology 03/30/16 Marlo Madsen MD [address] [address] Cardiology 10/27/16 Mel Buckley, RN Nurse Coordinator Physical Medicine and Rehabilitation 12/02/16 Douglas Cadet MD Gastroenterology 08/13/21 Rosalba Pendleton APRN CANNON PINION ADJUSTER [address] [place] [id number] [place] [address] Nurse Practitioner Neurology 09/05/21 Rosalba Pendleton APRN CANNON PINION ADJUSTER [address] [place] [address] [id number] [place], [place] 702095 Assigned Neuroscience Provider 11/09/21 10/04/24 Douglas Cadet MD Assigned Gastroenterology Provider 03/14/22 09/03/23 Marlo Madsen MD [address] [place] [address] 75 [place], [place] 379565 Assigned Heart and Vascular Provider 03/14/22 Abby Vasquez MD [address] [place] [address] 185875 MD Gastroenterology 07/16/22 Abby Vasquez MD [address] [place] [address] [id number] Assigned PCP 09/26/22 10/06/23 Airam Hodges PA-C [address] [place] [address] 606045 Physician Vp Production Surgery 07/19/23 Zain Quintana MD [address] [place] [address] 149515 Assigned Surgical Provider 10/07/23 Latricia Pettit PA-C [address] [place] [address] 158705 Assigned Gastroenterology Provider 10/15/23 Torri Francois MD [address] [place] [address] 469245 Assigned Neuroscience Provider 10/05/24 2 Abhishek Acevedo PA-C [address] [place] [address] [place] [address] Assigned Neuroscience Provider 11/05/24 documented as of this encounter
--- OUTSIDE RECORDS SUMMARY | 2024-12-11 13:42 | XMS_ITS | Encounter Summary ---
Author Organization [place] Address [address] [place] [address]. [place] [address] Care Team Providers Care Search Marketing Coordinator Name Role Phone Monty Musa MD Primary Care Provider [phone] Alfonso Tang Unavailable Unavailable Dayanara Bee MD Unavailable [phone] Min Lange MD Unavailable Unavailable BendMarlo molina MD Unavailable +[phone] Mel Buckley RN Unavailable [phone] Douglas Cadet MD Unavailable [phone] Rosalba Pendleton SMOOTH [employer] BURR WORKER COMPOSITES PLANT OPERATIONS COORDINATOR Unavaila ble Rosalba Pendleton APRN PLANT OPERATIONS COORDINATOR Unavaila ble Douglas Cadet MD Unavailable [phone] Marlo Madsen MD Unavailable [phone] Abby Vasquez MD Unavailable Abby Vasquez MD Unavailable Airam Hodges PA-C Unavailable [phone] Zain Quintana MD Unavailable [phone] Latricia Pettit PA-C Unavailable [phone] Torri Francois MD Unavailable Abhishek Acevedo PA-C Unavailable [phone] Encounter Details Date Type Department Care Team (Late Contact Info) Description 08/03/2022 MyC Medical Advice [facility] G[facility]ology [facility] [address] [place] [phone] Stephani Wheatley MA Social History Tobacco Use Types Packs/Day Years Used Date Smoking Tobacco: Never Smokeless Tobacco: Never Alcohol Use Standard Drinks/Week Comments No 0 (1 standard drink = 0.6 oz pur e alcohol) PHQ-2 Answer Date Recorded PHQ-2 Score 3 05/28/2022 Comments No Sex and Gender Information Value Date Recorded Sex Assigned at Female 10/31/2021 7:59 AM TEST FIXTURE DESIGNER Legal Sex Female 10:14 AM TEST FIXTURE DESIGNER Gender Identity Female 10/31/2021 7:59 AM TEST FIXTURE DESIGNER Sexual Orientation Straight 10/31/2021 7: 59 AM TEST FIXTURE DESIGNER COVID-19 Exposure Response Date Recorded In [...] Virtual Visit [facility] Neurology Clinic [address] [place] [phone] oRsalba Pendleton APRN [address] [id number] [place] [address] 05/01/2025 10:00 AM CDT Office Visit [facility] [place] [address] [place] [phone] Abhishek Acevedo PA-C 6816 [facility] 103 [place], [place] [id number] 05/23/2025 10:40 AM CDT Virtual Visit [facility] Gastroenterology [facility] [address] 4th [place] [address] Abby Vasquez MD [address] [place] [address] documented as of this encounter Visit Diagnoses Not on filedocumented in this encounter Additional Health Concerns Infection Onset Date Last Indicated Resolved Time Rule Out COVID-19 04/03/2023 04/03/2023 04/04/2023 6:30 PM CDT Assessment Noted Time PHQ-9 Depression Total Score: 11 022 11:52 AM CDT documented as of this encounter Care Teams Search Marketing Coordinator Relationship Specialty Start Date End Date Monty Musa MD PCP - General Family Medicine 08/13/21 Alfonso Tang Family Practice 08/13/21 Dayanara Bee MD [address] 109835 Pediatrics 12/26/14 Min Lange MD [address] [address] Neurology 03/30/16 Marlo Madsen MD [address] [address] Cardiology 10/27/16 Mel Buckley, RN Nurse Coordinator Physical Medicine and Rehabilitation 12/02/16 Douglas Cadet MD Gastroenterology 08/13/21 Rosalba Pendleton, SMOOTH AND BURR WORKER COMPOSITES PLANT OPERATIONS COORDINATOR [address] [place] [address] [id number] [place], [place] 000[address]65 Nurse Practitioner Neurology 09/05/21 Rosalba Pendleton APRN PLANT OPERATIONS COORDINATOR [address] [place] [address] [id number] [place] [address] Assigned Neuroscience Provider 11/09/21 10/04/24 Douglas Cadet MD Assigned Gastroenterology Provider 03/14/22 09/03/23 Marlo Madsen MD [address] [place] [address] 75 [place], [place] 085315 Assigned Heart and Vascular Provider 03/14/22 Abby Vasquez MD [address] [place] [address] 028565 Gastroenterology 07/16/22 Abby Vasquez MD [address] [place] [address] 398915 Assigned PCP 09/26/22 10/06/23 Airam Hodges PA-C 500 [place], [place] 840745 Physician Linen Supply Load Builder Surgery 07/19/23 Zain Quintana MD 500 [place] [address] Assigned Surgical Provider 10/07/23 Latricia Pettit PA-C [address] [place] [address] Assigned Gastroenterology Provider 10/15/23 Torri Francois MD [address] [place] [address] Assigned Neuroscience Provider 10/05/24 11/04/24 Abhishek Acevedo PA-C [address] [address] Assigned Neuroscience Provider 11/05/24 documented as of this encounter
--- OUTSIDE RECORDS SUMMARY | 2024-12-11 13:42 | XMS_ITS | Encounter Summary ---
Author Organization [facility] Address [address] [place] [address]. [place] [address] Care Team Providers Care Collar Worker Name Role Phone Monty Musa MD Primary Care Provider [phone] Alfonso Tang Unavailable Unavailable Dayanara Bee MD Unavailable [phone] Min Lange MD Unavailable Unavailable BendMarlo molina MD Unavailable [phone] Mel Buckley RN Unavailable [phone] Douglas Cadet MD Unavailable [phone] Rosalba Pendleton [employer] SENIOR OFFICER RETAIL INVENTORY CONTROL CLERK Unavaila ble Rosalba Pendleton APRN RETAIL INVENTORY CONTROL CLERK Unavaila ble Douglas Cadet MD Unavailable [phone] Marlo Madsen MD Unavailable [phone] Abby Vasquez MD Unavailable Abby Vasquez MD Unavailable Airam Hodges PA-C Unavailable [phone] Zain Quintana MD Unavailable [phone] Latricia Pettit PA-C Unavailable [phone] Torri Francois MD Unavailable Abhishek Acevedo PA-C Unavailable [phone] Encounter Details Date Type Department Care Team (Late Contact Info) Description 03/17/2022 MyC Medical Advice [facility] [address] [phone] Virginia Rendon, RN [address] [place] [address] [phone] Social History Tobacco Use Types Packs/Day Years Used Date Smoking Tobacco: Never Smokeless Tobacco: Never Alcohol Use Standard Drinks/Week Comments No 0 (1 standard drink = 0.6 oz pur e alcohol) PHQ-2 Answer Date Recorded PHQ-2 Score 4 01/14/2022 Comments No Sex and Gender Information Value Date Recorded Sex Assigned at Female 10/31/2021 7:59 AM CHAPLAIN Legal Sex Female 10:14 AM CHAPLAIN Gender Identity Female 10/31/2021 7:59 AM CHAPLAIN Sexual Orientation Straight 10/31/2021 7: 59 AM CHAPLAIN COVID-19 Exposure Response Date Recorded In the last 10 days, have yo u been in contact with someone who was confirmed or suspected to have Coronavirus/COVID-19? No / Unsure 03/18/2022 8:57 AM CDT documented as of this encounter Plan of Treatment Upcoming Encounters Date Type Department Care Team (Late Contact Info) Description 01/11/2025 9:00 AM CDT Virtual Visit [facility] [address] 3rd [place] [phone] Rosalba Pendleton, MAXIMILIANO [address] [id number] [place], [place] [address] 05/01/2025 10:00 AM CDT Office Visit [facility] [place] 5245 [facility] 103 [place] [address] Abhishek Acevedo PA-C 8045 [facility] 103 [place] [address] 05/23/2025 10:40 AM CDT Virtual Visit [facility] [address] [place] [address] Abby Vasquez MD [address] [place] [address] 126215 documented as of this encounter Visit Diagnoses Not on filedocumented in this encounter Additional Health Concerns Infection Onset Date Last Indicated Resolved Time Rule Out COVID-19 04/03/2023 04/03/2023 04/04/2023 6:30 PM CDT Assessment Noted Time PHQ-9 Depression Total Score: 17 022 7:02 AM CDT documented as of this encounter Care Teams Collar Worker Relationship Specialty Start Date End Date Monty Musa MD PCP - General Family Medicine 08/13/21 Alfonso Tang Family Practice 08/13/21 Dayanara Bee MD [address] [place] [address] 064775 Pediatrics 12/26/14 Min Lnage MD [address] [address] Neurology 03/30/16 Marlo Madsen MD [address] 757295 Cardiology 10/27/16 Mel Buckley, RN Nurse Coordinator Physical Medicine and Rehabilitation 12/02/16 Douglas Cadet MD Gastroenterology 08/13/21 Rosalba Pendleton APRN RETAIL INVENTORY CONTROL CLERK [address] [place], [place] [address] [address] Nurse Practitioner Neurology 09/05/21 Rosalba Pendleton APRN CNP [address] [place] [address] Assigned Neuroscience Provider 11/09/21 10/04/24 Douglas Cadet MD Assigned Gastroenterology Provider 03/14/22 09/03/23 Marlo Madsen MD [address] [place] [address] 75 [place] [address] Assigned Heart and Vascular Provider 03/14/22 Abby Vasquez MD [address] [place] [address] Gastroenterology 07/16/22 Abby Vasquez MD [address] [place] [address] Assigned PCP 09/26/22 10/06/23 Airam Hodges PA-C [address] [place] [address] Physician Gold Cutter Surgery 07/19/23 Zain Quintana MD [address] [place] [address] 123035 Assigned Surgical Provider 10/07/23 Latricia Pettit PA-C [address] [place] [address] Assigned Gastroenterology Provider 10/15/23 Torri Francois MD [address] [place] [address] Assigned Neuroscience Provider 10/05/24 11/04/24 Abhishek Acevedo PA-C [address] [address] Assigned Neuroscience Provider 11/05/24 documented as of this encounter
--- OUTSIDE RECORDS SUMMARY | 2024-12-11 13:42 | XMS_ITS | Encounter Summary ---
Author Organization [place] Address [address] [place] [address]. [place] [address] Care Team Providers Care Retirement Plan Counselor Name Role Phone Monty Musa MD Primary Care Provider [phone] Alfonso Tang Unavailable Unavailable Dayanara Bee MD Unavailable [phone] Min Lange MD Unavailable Unavailable BendMarlo molina MD Unavailable [phone] Mel Buckley RN Unavailable [phone] Douglas Cadet MD Unavailable [phone] Rosalba Pendleton HEALTH FACILITIES SURVEYOR REINSURANCE CLAIM ANALYST Unavaila ble Rosalba Pendleton APRN REINSURANCE CLAIM ANALYST Unavaila ble Douglas Cadet MD Unavailable [phone] Marlo Madsen MD Unavailable [phone] Abby Vasquez MD Unavailable Abby Vasquez MD Unavailable Airam Hodges PA-C Unavailable [phone] Zain Quintana MD Unavailable [phone] Latricia Pettit PA-C Unavailable [phone] Torri Francois MD Unavailable [phone] Abhishek Aceevdo PA-C Unavailable [phone] Encounter Details Date Type Department Care Team (Late st Contact Info) Description 06/01/2022 MyC Medical Advice [facility] [address] [phone] [facility] Social History Tobacco Use Types Packs/Day Years Used Date Smoking Tobacco: Never Smokeless Tobacco: Never Alcohol Use Standard Drinks/Week Comments No 0 (1 standard drink = 0.6 oz pur e alcohol) PHQ-2 Answer Date Recorded PHQ-2 Score 3 05/28/2022 Comments No Sex and Gender Information Value Date Recorded Sex Assigned at Female 10/31/2021 7:59 AM DATA COLLECTOR Legal Sex Female 10:14 AM DATA COLLECTOR Gender Identity Female 10/31/2021 7:59 AM DATA COLLECTOR Sexual Orientation Straight 10/31/2021 7: 59 AM DATA COLLECTOR COVID-19 Exposure Response Date Recorded In the last 10 days, have yo u been in contact with someone who was confirmed or suspected to have Coronavirus/COVID-19? No / Unsure 05/04/2022 7:58 AM CDT documented as of this encounter Plan of Treatment Upcoming Encounters Date Type Department Care Team (Late st Contact Info) Description 01/11/2025 9:00 AM CDT Virtual Visit [facility] Neurology Clinic [address] 3rd [place] [phone] Rosalba Pendleton, HEALTH FACILITIES SURVEYOR [address] [id number] [place] [address] 05/01/2025 10:00 AM CDT Office Visit [facility] Sleep Centers [place] [phone] [address] [address] Abhishek Acevedo PA-C 9066 [facility] 103 [place], [place] [id number] 05/23/2025 10:40 AM CDT Virtual Visit [facility] Gastroenterology Clinic [address] 4th [place] [address] Abby Vasquez MD [address] [place] [address] 065185 documented as of this encounter Visit Diagnoses Not on filedocumented in this encounter Additional Health Concerns Infection Onset Date Last Indicated Resolved Time Rule Out COVID-19 04/03/2023 04/03/2023 04/04/2023 6:30 PM CDT Assessment Noted Time PHQ-9 Depression Total Score: 11 022 11:52 AM CDT documented as of this encounter Care Teams Retirement Plan Counselor Relationship Specialty Start Date End Date Monty Musa MD PCP - General Family Medicine 08/13/21 Alfonso Tang Family Practice 08/13/21 Dayanara Bee MD [address] [address] Pediatrics 12/26/14 Min Lange MD [address] [address] Neurology 03/30/16 Marlo Madsen MD [address] [address] Cardiology 10/27/16 Mel Buckley, RN Nurse Coordinator Physical Medicine and Rehabilitation 12/02/16 Douglas Cadet MD Gastroenterology 08/13/21 Rosalba Pendleton APRN REINSURANCE CLAIM ANALYST [address] [place] [address] [id number] [place] [address] Nurse Practitioner Neurology 09/05/21 Rosalba Pendleton APRN REINSURANCE CLAIM ANALYST [address] [place] [address] [id number] [place], [place] 306395 Assigned Neuroscience Provider 11/09/21 10/04/24 Douglas Cadet MD Assigned Gastroenterology Provider 03/14/22 09/03/23 Marlo Madsen MD [address] [place] [address] 75 [place], [place] 6[address] Assigned Heart and Vascular Provider 03/14/22 Abby Vasquez MD [address] [place] [address] 090315 Gastroenterology 07/16/22 Abby Vasquez MD [address] [place] [address] 498035 Assigned PCP 09/26/22 10/06/23 Airam Hodges PA-C [address] [place] [address] 939995 Physician Guitar Maker Surgery 07/19/23 Zain Quintana MD [address] [place] [address] 411025 Assigned Surgical Provider 10/07/23 Latricia Pettit PA-C [address] [place] [address] 795635 Assigned Gastroenterology Provider 10/15/23 Torri Francois MD [address] [place] [address] Assigned Neuroscience Provider 10/05/24 11/04/24 Abhishek Acevedo PA-C [address] [facility] 103 [place] [address] Assigned Neuroscience Provider 11/05/24 documented as of this encounter
--- OUTSIDE RECORDS SUMMARY | 2024-12-11 13:42 | XMS_ITS | Encounter Summary ---
Author Organization [facility] Address [address] [place] [address]. [place] [address] Care Team Providers Care Rand Sewer Name Role Phone Monty Musa MD Primary Care Provider [phone] Alfonso Tang Unavailable Unavailable Dayanara Bee MD Unavailable [phone] Min Lange MD Unavailable Unavailable BendMarlo molina MD Unavailable [phone] Mel Buckley RN Unavailable [phone] Douglas Cadet MD Unavailable [phone] Rosalba Pendleton RETAIL COVERAGE MERCHANDISER LEAD BRANCH ACCOUNT MANAGER Unavaila ble Rosalba Pendleton APRN BRANCH ACCOUNT MANAGER Unavaila ble Douglas Cadet MD Unavailable [phone] Marlo Madsen MD Unavailable [phone] Abby Vasquez MD Unavailable Abby Vasquez MD Unavailable Airam Hodges PA-C Unavailable [phone] Zain Quintana MD Unavailable [phone] Latricia Pettit PA-C Unavailable [phone] Torri Francois MD Unavailable [phone] Abhishek Acevedo PA-C Unavailable Encounter Details Date Type Department Care Team (Late Contact Info) Description 01/21/2023 MyC Medical Advice [facility] Heart [address] [phone] Marlo Madsen MD [address] [place] [address] [id number] Social History Tobacco Use Types Packs/Day Years Used Date Smoking Tobacco: Never Smokeless Tobacco: Never Alcohol Use Standard Drinks/Week Comments No 0 (1 standard drink = 0.6 oz pur e alcohol) PHQ-2 Answer Date Recorded PHQ-2 Score 2 01/19/2023 Comments No Sex and Gender Information Value Date Recorded Sex Assigned at Female 10/31/2021 7:59 AM STROKE PROGRAM COORDINATOR Legal Sex Female 10:14 AM STROKE PROGRAM COORDINATOR Gender Identity Female 10/31/2021 7:59 AM STROKE PROGRAM COORDINATOR Sexual Orientation Straight 10/31/2021 7: 59 AM STROKE PROGRAM COORDINATOR documented as of this encounter Plan of Treatment Upcoming Encounters Date Type Department Care Team (Late st Contact Info) Description 01/11/2025 9:00 AM CDT Virtual Visit [facility] Neurology Clinic [address]rd [place] [address] Rosalba Pendleton, RETAIL COVERAGE MERCHANDISER LEAD [address] [id number] [place] [address] 05/01/2025 10:00 AM CDT Office Visit [facility] Sleep Centers [place] [address] [address] Abhishek Acevedo PA-C 0473 [facility] 103 [place], [place] [address] 05/23/2025 10:40 AM CDT Virtual Visit [facility] Gastroenterology Clinic [address] [place] [phone] Abby Vasquez MD 909 [place] [address] documented as of this encounter Visit Diagnoses Not on filedocumented in this encounter Additional Health Concerns Infection Onset Date Last Indicated Resolved Time Rule Out COVID-19 04/03/2023 04/03/2023 04/04/2023 6:30 PM CDT Assessment Noted Time PHQ-9 Depression Total Score: 11 022 11:52 AM CDT documented as of this encounter Care Teams Rand Sewer Relationship Specialty Start Date End Date Monty Musa MD PCP - General Family Medicine 08/13/21 Alfonso Tang Family Practice 08/13/21 Dayanara Bee MD [address] [address] Pediatrics 12/26/14 Min Lange MD [address] [address] Neurology 03/30/16 Marlo Madsen MD [address] [address] Cardiology 10/27/16 Mel Buckley, RN Nurse Coordinator Physical Medicine and Rehabilitation 12/02/16 Douglas Cadet MD Gastroenterology 08/13/21 Rosalba Pendleton APRN BRANCH ACCOUNT MANAGER [address] [place] [address] [id number] [place] [address] Nurse Practitioner Neurology 09/05/21 Rosalba Pendleton APRN CNP [address] [place] [address] [id number] [place], [place] 584425 Assigned Neuroscience Provider 11/09/21 10/04/24 Douglas Cadet MD Assigned Gastroenterology Provider 03/14/22 09/03/23 Marlo Madsen MD [address] [place] [address] 75 [place] [address] Assigned Heart and Vascular Provider 03/14/22 Abby Vasquez MD [address] [place] [address] Gastroenterology 07/16/22 Abby Vasquez MD [address] [place] [address] Assigned PCP 09/26/22 10/06/23 Airam Hodges PA-C [address] [place] [address] 653405 Physician Siebel Developer Surgery 07/19/23 Zain Quintana MD [address] [place] [address] Assigned Surgical Provider 10/07/23 Latricia Pettit PA-C [address] [place] [address] 311615 Assigned Gastroenterology Provider 10/15/23 Torri Francois MD [address] [place] [address] 770815 Assigned Neuroscience Provider 10/05/24 11/04/24 Abhishek Acevedo PA-C [address] [facility] [address] [place] [address] Assigned Neuroscience Provider 11/05/24 documented as of this encounter
--- OUTSIDE RECORDS SUMMARY | 2024-12-11 13:42 | XMS_ITS | Encounter Summary ---
Author Organization [place] Address [address] [place] [address]. [place] [address] Care Team Providers Care Brazer Production Line Name Role Phone Alfonso Tang Primary Care Provider Unavailabl Monty Olvera MD Primary Care Provider [phone] Alfonso Tang Unavailable Unavailable Dayanara Bee MD Unavailable [phone] Min Lange MD Unavailable Unavailable Marlo Madsen MD Unavailable [phone] Mel Buckley RN Unavailable [phone] Douglas Cadet MD Unavailable [phone] Rosalba Pendleton APRN POLISHER EYEGLASS FRAMES Unavaila ble Rosalba Pendleton APRN POLISHER EYEGLASS FRAMES Unavaila ble Douglas Cadet MD Unavailable [phone] Marlo Madsen MD Unavailable [phone] Abby Vasquez MD Unavailable Abby Vasquez MD Unavailable Airam Hodges PA-C Unavailable [phone] Zain Quintana MD Unavailable [phone] Latricia Pettit PA-C Unavailable [phone] Torri Francois MD Unavailable Abhishek Acevedo PA-C [...] Sex Assigned at Female 10/31/2021 7:59 AM TOY MECHANIC Legal Sex Female 10:14 AM TOY MECHANIC Gender Identity Female 10/31/2021 7:59 AM TOY MECHANIC Sexual Orientation Straight 10/31/2021 7: 59 AM TOY MECHANIC documented as of this encounter Plan of Treatment Upcoming Encounters Date Type Department Care Team (Late st Contact Info) Description 01/11/2025 9:00 AM CDT Virtual Visit [facility] [address] [place] [address] Rosalba Pendleton, HEALTH ADVOCATE POLISHER EYEGLASS FRAMES [address] [place] [address] [id number] [place], [place] 989435 05/01/2025 10:00 AM CDT Office Visit [facility] [address] [phone] Abhishek Acevedo PA-C [address] [address] 05/23/2025 10:40 AM CDT Virtual Visit [facility] Gastroenterology Clinic [address] [place] [address] Abby Vasquez MD [address] [place] [address] 394945 documented as of this encounter Visit Diagnoses Not on filedocumented in this encounter Additional Health Concerns Infection Onset Date Last Indicated Resolved Time Rule Out COVID-19 04/03/2023 04/03/2023 04/04/2023 6:30 PM CDT documented as of this encounter Care Teams Brazer Production Line Relationship Specialty Start Date End Date LorrainejoeAlfonso walker Odalis PCP - General Family Practice 09/04/13 08/12/21 Monty Musa MD PCP - General Family Medicine 08/13/21 Alfonso Tang Family Practice 08/13/21 Dayanara Bee MD [address] 331445 Pediatrics 12/26/14 Min Lange MD [address] [address] Neurology 03/30/16 Marlo Madsen MD [address] 616175 Cardiology 10/27/16 Mel Buckley, RN Nurse Coordinator Physical Medicine and Rehabilitation 12/02/16 Douglas Cadet MD Gastroenterology 08/13/21 Rosalba Pendleton APRN POLISHER EYEGLASS FRAMES [address] [place], [place] 7[address] Nurse Practitioner Neurology 09/05/21 Rosalba Pendleton APRN POLISHER EYEGLASS FRAMES [address] 786465 Assigned Neuroscience Provider 11/09/21 10/04/24 Douglas Cadet MD Assigned Gastroenterology Provider 03/14/22 09/03/23 Marlo Madsen MD [address] [place] [address] 130045 Assigned Heart and Vascular Provider 03/14/22 Abby Vasquez MD [address] [place] [address] 636765 Gastroenterology 07/16/22 Abby Vasquez MD [address] [place] [address] 991615 Assigned PCP 09/26/22 10/06/23 Airam Hodges PA-C [address] [place] [address] 377875 Physician Surveillance Director Surgery 07/19/23 Zain Quintana MD [address] [place] [address] 689455 Assigned Surgical Provider 10/07/23 Latricia Pettit PA-C [address] [place] [address] 140735 Assigned Gastroenterology Provider 10/15/23 Torri Francois MD [address] [place] [address] 923515 Assigned Neuroscience Provider 10/05/24 11/04/24 Abhishek Acevedo PA-C [address] [place] [address] Assigned Neuroscience Provider 11/05/24 documented as of this encounter
--- OUTSIDE RECORDS SUMMARY | 2024-12-11 13:42 | XMS_ITS | Encounter Summary ---
Author Organization [facility] Address [address] [place] [address]. [place] [address] Care Team Providers Care Reset Merchandiser Name Role Phone Monty Musa MD Primary Care Provider [phone] Alfonso Tang Unavailable Unavailable Dayanara Bee MD Unavailable [phone] Min Lange MD Unavailable Unavailable BendMarlo molina MD Unavailable +[phone] Mel Buckley RN Unavailable [phone] Douglas Cadet MD Unavailable [phone] Rosalba Pendleton MOLD CUTTING MACHINE OPERATOR HELP DESK ASSOCIATE Unavaila ble Rosalba Pendleton APRN HELP DESK ASSOCIATE Unavaila ble Douglas Cadet MD Unavailable [phone] Marlo Madsen MD Unavailable [phone] Abby Vasquez MD Unavailable Abby Vasquez MD Unavailable Airam Hodges PA-C Unavailable [phone] Zain Quintana MD Unavailable [phone] Latricia Pettit PA-C Unavailable [phone] Torri Francois MD Unavailable [phone] Abhishek Acevedo PA-C Unavailable [phone] Encounter Details Date Type Department Care Team (Late Contact Info) Description 05/05/2023 MyC Medical Advice [facility] [address] [place] [phone] Latricia Pettit PA-C [address] [place] [address] [id number] Social History Tobacco Use Types Packs/Day Years Used Date Smoking Tobacco: Never Smokeless Tobacco: Never Alcohol Use Standard Drinks/Week Comments No 0 (1 standard drink = 0.6 oz pur e alcohol) PHQ-2 Answer Date Recorded PHQ-2 Score 2 04/02/2023 Comments No Sex and Gender Information Value Date Recorded Sex Assigned at Female 10/31/2021 7:59 AM SWITCHBOARD CLERK Legal Sex Female 10:14 AM SWITCHBOARD CLERK Gender Identity Female 10/31/2021 7:59 AM SWITCHBOARD CLERK Sexual Orientation Straight 10/31/2021 7: 59 AM SWITCHBOARD CLERK COVID-19 Exposure Response Date Recorded In the last 10 days, have yo u been in contact with someone who was confirmed or suspected to have Coronavirus/COVID-19? Unable to assess 04/27/2023 10:12 AM CDT documented as of this encounter Plan of Treatment Upcoming Encounters Date Type Department Care Team (Late Contact Info) Description 01/11/2025 9:00 AM CDT Virtual Visit [facility] Neurology [facility] [address] [place] [phone] Rosalba Pendleton APRN HELP DESK ASSOCIATE [address] [place] [address] [id number] [place], [place] [id number] 05/01/2025 10:00 AM CDT Office Visit [facility] [place] 0300 [facility] 103 [place] [address] Abhishek Acevedo PA-C 6672 [facility] 103 [place] [address] 05/23/2025 10:40 AM CDT Virtual Visit [facility] [address] 4th [place] [phone] Abby Vasquez MD [address] [place] [address] [phone] documented as of this encounter Visit Diagnoses Not on filedocumented in this encounter Additional Health Concerns Assessment Noted Time PHQ-9 Depression Total Score: 11 022 11:52 AM CDT documented as of this encounter Care Teams Reset Merchandiser Relationship Specialty Start Date End Date Monty Musa MD PCP - General Family Medicine 08/13/21 Alfonso Tang Family Practice 08/13/21 Dayanara eBe MD [address] [address] Pediatrics 12/26/14 Min Lange MD [address] [address] Neurology 03/30/16 Marlo Madsen MD [address] 823765 Cardiology 10/27/16 Mle Buckley, RN Nurse Coordinator Physical Medicine and Rehabilitation 12/02/16 Douglas Cadet MD Gastroenterology 08/13/21 Rosalba Pendleton APRN HELP DESK ASSOCIATE [address] [place] [address] [id number] [place] [address] Nurse Practitioner Neurology 09/05/21 Rosalba Pendleton APRN HELP DESK ASSOCIATE [address] [place] [address] [id number] [place], [place] 872835 Assigned Neuroscience Provider 11/09/21 10/04/24 Douglas Cadet MD Assigned Gastroenterology Provider 03/14/22 09/03/23 Marlo Madsen MD [address] [place] [address] 75 [place], [place] 417505 Assigned Heart and Vascular Provider 03/14/22 Abby Vasquez MD [address] [place] [address] 296625 Gastroenterology 07/16/22 Abby Vasquez MD [address] [place] [address] 088315 Assigned PCP 09/26/22 10/06/23 Airam Hodges PA-C 500 [place], [place] 512765 Physician Equipment Associate Surgery 07/19/23 Zain Quintana MD [address] [place] [address] 157415 Assigned Surgical Provider 10/07/23 Latricia Pettit PA-C [address] [place] [address] Assigned Gastroenterology Provider 10/15/23 Torri Francois MD [address] [place] [address] Assigned Neuroscience Provider 10/05/24 11/04/24 Abhishek Acevedo PA-C [address] [address] Assigned Neuroscience Provider 11/05/24 documented as of this encounter
--- OUTSIDE RECORDS SUMMARY | 2024-12-11 13:42 | XMS_ITS | Encounter Summary ---
Author Organization [facility] Address [address] [place] [address]. [place] [address] Care Team Providers Care Field Inspector Name Role Phone Monty Musa MD Primary Care Provider [phone] Alfonso Tang Unavailable Unavailable Dayanara Bee MD Unavailable [phone] Min Lange MD Unavailable Unavailable BendMarlo molina MD Unavailable [phone] Mel Buckley RN Unavailable [phone] Douglas Cadet MD Unavailable [phone] Rosalba Pendleton SPORTS ADMINISTRATOR POLICE SERGEANT Unavaila ble Rosalba Pendleton APRN POLICE SERGEANT Unavaila ble Douglas Cadet MD Unavailable [phone] Marlo Madsen MD Unavailable [phone] Abby Vasquez MD Unavailable Abby Vasquez MD Unavailable Airam Hodges PA-C Unavailable [phone] Zain Quintana MD Unavailable [phone] Latricia Pettit PA-C Unavailable [phone] Torri Francois MD Unavailable Abhishek Acevedo PA-C Unavailable [phone] Encounter Details Date Type Department Care Team (Late st Contact Info) Description 05/29/2022 MyC Medical Advice [facility] [address] [phone] [facility] Social History Tobacco Use Types Packs/Day Years Used Date Smoking Tobacco: Never Smokeless Tobacco: Never Alcohol Use Standard Drinks/Week Comments No 0 (1 standard drink = 0.6 oz pur e alcohol) PHQ-2 Answer Date Recorded PHQ-2 Score 3 05/28/2022 Comments No Sex and Gender Information Value Date Recorded Sex Assigned at Female 10/31/2021 7:59 AM EXAMINER RATING CLERK Legal Sex Female 10:14 AM EXAMINER RATING CLERK Gender Identity Female 10/31/2021 7:59 AM EXAMINER RATING CLERK Sexual Orientation Straight 10/31/2021 7: 59 AM EXAMINER RATING CLERK COVID-19 Exposure Response Date Recorded In the last 10 days, have yo u been in contact with someone who was confirmed or suspected to have Coronavirus/COVID-19? No / Unsure 05/04/2022 7:58 AM CDT documented as of this encounter Plan of Treatment Upcoming Encounters Date Type Department Care Team (Late st Contact Info) Description 01/11/2025 9:00 AM CDT Virtual Visit [facility] Neurology [facility] [address] 3rd [place] [phone] Rosalba Pendleton, SPORTS ADMINISTRATOR [address] [id number] [place] [address] 05/01/2025 10:00 AM CDT Office Visit [facility] [place] [phone] [address] [address] Abhishek Acevedo PA-C 0937 [facility] 103 [place], [place] [id number] 05/23/2025 10:40 AM CDT Virtual Visit [facility] Gastroenterology [facility] [address] 4th [place] [address] Abby Vasquez MD [address] [place] [address] 187355 documented as of this encounter Visit Diagnoses Not on filedocumented in this encounter Additional Health Concerns Infection Onset Date Last Indicated Resolved Time Rule Out COVID-19 04/03/2023 04/03/2023 04/04/2023 6:30 PM CDT Assessment Noted Time PHQ-9 Depression Total Score: 11 022 11:52 AM CDT documented as of this encounter Care Teams Field Inspector Relationship Specialty Start Date End Date Monty Musa MD PCP - General Family Medicine 08/13/21 Alfonso Tang Family Practice 08/13/21 Dayanara Bee MD [address] [address] Pediatrics 12/26/14 Min Lange MD [address] [address] Neurology 03/30/16 Marlo Madsen MD [address] [address] Cardiology 10/27/16 Mel Buckley, RN Nurse Coordinator Physical Medicine and Rehabilitation 12/02/16 Douglas Cadet MD Gastroenterology 08/13/21 Rosalba Pendleton APRN POLICE SERGEANT [address] [place] [address] [id number] [place] [address] Nurse Practitioner Neurology 09/05/21 Rosalba Pendleton APRN POLICE SERGEANT [address] [place] [address] [id number] [place], [place] 451135 Assigned Neuroscience Provider 11/09/21 10/04/24 Douglas Cadet MD Assigned Gastroenterology Provider 03/14/22 09/03/23 Marlo Madsen MD [address] [place] [address] 75 [place], [place] 604255 Assigned Heart and Vascular Provider 03/14/22 Abby Vasquez MD [address] [place] [address] 900885 Gastroenterology 07/16/22 Abby Vasquez MD [address] [place] [address] 179375 Assigned PCP 09/26/22 10/06/23 Airam Hodges PA-C [address] [place] [address] 466105 Physician Treating Plant Pumper Surgery 07/19/23 Zain Quintana MD [address] [place] [address] 043635 Assigned Surgical Provider 10/07/23 Latricia Petitt PA-C [address] [place] [address] [phone] Assigned Gastroenterology Provider 10/15/23 Torri Francois MD [address] [place] [address] Assigned Neuroscience Provider 10/05/24 11/04/24 Abhsihek Acevedo PA-C [address] [facility] 103 [place] [address] Assigned Neuroscience Provider 11/05/24 documented as of this encounter
--- OUTSIDE RECORDS SUMMARY | 2024-12-11 13:43 | XMS_ITS | Encounter Summary ---
Author Organization [facility] Address [address] [place] [address]. [place] [address] Care Team Providers Care Clothing Pattern Preparer Name Role Phone Monty Musa MD Primary Care Provider [phone] Alfonso Tang Unavailable Unavailable Dayanara Bee MD Unavailable [phone] Min Lange MD Unavailable Unavailable BendMarlo molina MD Unavailable [phone] Mel Buckley RN Unavailable [phone] Douglas Cadet MD Unavailable [phone] Rosalba Pendleton ACCOUNT SERVICE ASSOCIATE SEISMIC SURVEY ASSISTANT Unavaila ble Rosalba Pendleton APRN SEISMIC SURVEY ASSISTANT Unavaila ble Douglas Cadet MD Unavailable [phone] Marlo Madsen MD Unavailable [phone] Abby Vasquez MD Unavailable Abby Vsaquez MD Unavailable Airam Hodges PA-C Unavailable [phone] Zain Quintana MD Unavailable [phone] Latricia Pettit PA-C Unavailable [phone] Torri Francois MD Unavailable Abhishek Acevedo PA-C Unavailable [phone] Encounter Details Date Type Department Care Team (Late st Contact Info) Description 07/16/2023 MyC Medical Advice [facility]ology [facility] [address] [place] [phone] Sheri Edmonds RN Social History Tobacco Use [...] Assigned at Female 10/31/2021 7:59 AM CNA CAREGIVER Legal Sex Female 10:14 AM CNA CAREGIVER Gender Identity Female 10/31/2021 7:59 AM CNA CAREGIVER Sexual Orientation Straight 10/31/2021 7: 59 AM CNA CAREGIVER documented as of this encounter Plan of Treatment Upcoming Encounters Date Type Department Care Team (Late st Contact Info) Description 01/11/2025 9:00 AM CDT Virtual Visit [facility] [address] 3rd [place] [address] Rosalba Pendleton APRN [address] [id number] [place] [address] 05/01/2025 10:00 AM CDT Office Visit [facility] [place] 6363 [facility] 103 [place] [phone] Abhishek Acevedo PA-C 6240 [facility] 103 [place] [address] 05/23/2025 10:40 AM CDT Virtual Visit [facility] [address] [place] [address] Abby Vasquez MD 909 [place] [address] documented as of this encounter Visit Diagnoses Not on filedocumented in this encounter Additional Health Concerns Assessment Noted Time PHQ-9 Depression Total Score: 12 023 8:53 AM CDT documented as of this encounter Care Teams Clothing Pattern Preparer Relationship Specialty Start Date End Date Monty Musa MD PCP - General Family Medicine 08/13/21 Alfonso Tang [facility] 08/13/21 Dayanara Bee MD [address] [place] [address] Pediatrics 12/26/14 Min Lange MD [address] [place] [address] Neurology 03/30/16 Marlo Madsen MD [address] [place] [address] 979765 Cardiology 10/27/16 Mel Buckley, RN Nurse Coordinator Physical Medicine and Rehabilitation 12/02/16 Douglas Cadet MD Gastroenterology 08/13/21 Rosalba Pendleton APRN SEISMIC SURVEY ASSISTANT [address] [place] [address] 969355 Nurse Practitioner Neurology 09/05/21 Rosalba Pendleton APRN SEISMIC SURVEY ASSISTANT [address] [place] [address] Assigned Neuroscience Provider 11/09/21 10/04/24 Douglas Cadet MD Assigned Gastroenterology Provider 03/14/22 09/03/23 Marlo Madsen MD [address] [place] [address] 135275 Assigned Heart and Vascular Provider 03/14/22 Abby Vasquez MD [address] [place] [address] 264795 Gastroenterology 07/16/22 Abby Vasquez MD [address] [place] [place] [address] 599765 Assigned PCP 09/26/22 10/06/23 Airam Hodges PA-C 500 [place], [place] 184465 Physician Dumper Bulk System Surgery 07/19/23 Zain Quintana MD 500 [place], [place] 947895 Assigned Surgical Provider 10/07/23 Latricia Pettit PA-C [address] [place] [address] 759655 Assigned Gastroenterology Provider 10/15/23 Torri Francois MD [address] [place] [address] 142835 Assigned Neuroscience Provider 10/05/24 11/04/24 Abhishek Acevedo PA-C [address] [facility] 103 [place] [address] Assigned Neuroscience Provider 11/05/24 documented as of this encounter
--- OUTSIDE RECORDS SUMMARY | 2024-12-11 13:43 | XMS_ITS | Encounter Summary ---
Author Organization [facility] Address [address] [place] [address]. [place] [address] Care Team Providers Care Career And Technology Education Teacher Name Role Phone Monty Musa MD Primary Care Provider Alfonso Tang Unavailable Unavailable Dayanara Bee MD Unavailable [phone] Min Lange MD Unavailable Unavailable Marlo Madsen MD Unavailable [phone] Mel Buckley RN Unavailable [phone] Douglas Cadet MD Unavailable [phone] Rosalba Pendleton SUPERVISOR GROWER MERCHANDISING COORDINATOR Unavaila ble Rosalba Pendletno APRN MERCHANDISING COORDINATOR Unavaila ble Marlo Madsen MD Unavailable [phone] Abby Vasquez MD Unavailable Airam Hodges PA-C Unavailable [phone] Zain Quintana MD Unavailable [phone] Latricia Pettit PA-C Unavailable [phone] Torri Francois MD Unavailable [phone] Abhishek Acevedo PA-C Unavailable [phone] Encounter Details Date Type Department Care Team (Late st Contact Info) Description 01/13/2024 MyC Medical Advice [facility] Neurology [facility] [address]rd [place] [phone] Miriam Yepez RN Social History Tobacco Use [...] Sex Assigned at Female 10/31/2021 7:[address] TECHNICIAN Legal Sex Female 10:[address] TECHNICIAN Gender Identity Female 10/31/2021 7:[address] TECHNICIAN Sexual Orientation Straight 10/31/2021 7: [address] TECHNICIAN documented as of this encounter Plan of Treatment Upcoming Encounters Date Type Department Care Team (Late Contact Info) Description 01/11/2025 9:00 AM CDT Virtual Visit [facility] [address] [phone] Rosalba Pendleton APRN [address] [id number] [place] [address] 05/01/2025 10:00 AM CDT Office Visit [facility] [address] [phone] Abhishek Acevedo PA-C [address] [address] 05/23/2025 10:40 AM CDT Virtual Visit [facility] Gastroenterology [facility] [address] [place] [phone] Abby Vasquez MD [address] [place] [address] documented as of this encounter Visit Diagnoses Not on filedocumented in this encounter Additional Health Concerns Assessment Noted Time PHQ-9 Depression Total Score: 12 024 12:[address] TECHNICIAN documented as of this encounter Care Teams Career And Technology Education Teacher Relationship Specialty Start Date End Date Monty Musa MD PCP - General Family Medicine 08/13/21 Alfonso Tang [facility] 08/13/21 Dayanara Bee MD [address] 173115 Pediatrics 12/26/14 Min Lange MD [address] [address] Neurology 03/30/16 Marlo Madsen MD [address] 510035 Cardiology 10/27/16 Mel Buckley, RN Nurse Coordinator Physical Medicine and Rehabilitation 12/02/16 Douglas Cadet MD Gastroenterology 08/13/21 Rosalba Pendleton APRN MERCHANDISING COORDINATOR 909 [id number] [place] [address] Nurse Practitioner Neurology 09/05/21 Rosalba Pendleton APRN MERCHANDISING COORDINATOR 909 [id number] [place] [address] Assigned Neuroscience Provider 11/09/21 10/04/24 Marlo Madsen MD [address] [address] Assigned Heart and Vascular Provider 03/14/22 Abby Vasquez MD [address] [place] [address] Gastroenterology 07/16/22 Airam Hodges PA-C [address] [place] [address] Physician Cash On Delivery Clerk Surgery 07/19/23 Zain Quintana MD [address] [place] [address] Assigned Surgical Provider 10/07/23 Latricia Pettit PA-C [address] [place] [address] Assigned Gastroenterology Provider 10/15/23 Torri Francois MD [address] [place] [address] 547015 Assigned Neuroscience Provider 10/05/24 11/04/24 Abhishek Acevedo PA-C [address] [address] Assigned Neuroscience Provider 11/05/24 documented as of this encounter
--- OUTSIDE RECORDS SUMMARY | 2024-12-11 13:43 | XMS_ITS | Encounter Summary ---
Author Organization [facility] Address [address] [place] [address]. [place] [address] Care Team Providers Care Research Associate Molecular Biology Name Role Phone Monty Musa MD Primary Care Provider Alfonso Tang Unavailable Unavailable Dayanara Bee MD Unavailable [phone] Min Lange MD Unavailable Unavailable Marlo Madsen MD Unavailable [phone] Mel Buckley RN Unavailable [phone] Douglas Cadet MD Unavailable Rosalba Pendleton UTILITY SYSTEM REPAIRER STUDY COORDINATOR Unavaila ble Rosalba Pendleton APRN STUDY COORDINATOR Unavaila ble Marlo Madsen MD Unavailable [phone] Abby Vasquez MD Unavailable Airam Hodges PA-C Unavailable [phone] Zain Quintana MD Unavailable [phone] Latricia Pettit PA-C Unavailable [phone] Torri Francois MD Unavailable [phone] Abhishek Acevedo PA-C Unavailable [phone] Encounter Details Date Type Department Care Team (Late st Contact Info) Description 03/27/2024 MyC Medical Advice [facility] Neurology Clinic [address] [place] [phone] Nishi Norton Social History Tobacco Use Types [...] Assigned at Female 10/31/2021 7:59 AM TEST TECH Legal Sex Female 10:14 AM TEST TECH Gender Identity Female 10/31/2021 7:59 AM TEST TECH Sexual Orientation Straight 10/31/2021 7: 59 AM TEST TECH documented as of this encounter Plan of Treatment Upcoming Encounters Date Type Department Care Team (Late st Contact Info) Description 01/11/2025 9:00 AM CDT Virtual Visit [facility] Neurology [facility] [address] [phone] Rosalba Pendleton, MAXIMILIANO [address] [id number] [place], [place] [address] 05/01/2025 10:00 AM CDT Office Visit [facility] [place] [address] [phone] Abhishek Acevedo PA-C 1263 [facility] 103 [place] [address] 05/23/2025 10:40 AM CDT Virtual Visit [facility] Gastroenterology Clinic [address] [place] [phone] Abby Vasquez MD [address] [place] [address] documented as of this encounter Visit Diagnoses Not on filedocumented in this encounter Additional Health Concerns Assessment Noted Time PHQ-9 Depression Total Score: 12 024 12:52 PM TEST TECH documented as of this encounter Care Teams Research Associate Molecular Biology Relationship Specialty Start Date End Date Monty Musa MD PCP - General Family Medicine 08/13/21 Alfonso Tang [facility] 08/13/21 Dayanara Bee MD [address] 381795 Pediatrics 12/26/14 Min Lange MD [address] [address] Neurology 03/30/16 Marlo Madsen MD [address] 890875 Cardiology 10/27/16 Mel Buckley, RN Nurse Coordinator Physical Medicine and Rehabilitation 12/02/16 Douglas Cadet MD Gastroenterology 08/13/21 Rosalba Pendleton APRN STUDY COORDINATOR 909 [id number] [place] [address] Nurse Practitioner Neurology 09/05/21 Rosalba Pendleton APRN STUDY COORDINATOR 909 [id number] [place] [address] Assigned Neuroscience Provider 11/09/21 10/04/24 Marlo Madsen MD [address] [address] Assigned Heart and Vascular Provider 03/14/22 Abby Vasquez MD [address] [place] [address] Gastroenterology 07/16/22 Airam Hodges PA-C [address] [place] [address] Physician Peer Specialist Surgery 07/19/23 Zain Quintana MD [address] [place] [address] 888665 Assigned Surgical Provider 10/07/23 Latricia Pettit PA-C [address] [place] [address] Assigned Gastroenterology Provider 10/15/23 Torri Francois MD [address] [place] [address] 259075 Assigned Neuroscience Provider 10/05/24 11/04/24 Abhishek Acevedo PA-C [address] [address] Assigned Neuroscience Provider 11/05/24 documented as of this encounter
--- OUTSIDE RECORDS SUMMARY | 2024-12-11 13:43 | XMS_ITS | Encounter Summary ---
Author Organization [place] [facility] Address [address] [place] [address]. [place] [address] Care Team Providers Care Flavoring Oil Filterer Name Role Phone Monty Musa MD Primary Care Provider Alfonso Tang Unavailable Unavailable Dayanara Bee MD Unavailable [phone] Min Lange MD Unavailable Unavailable Marlo Madsen MD Unavailable [phone] Mel Buckley RN Unavailable [phone] Douglas Cadet MD Unavailable Rosalba Pendleton MARRIAGE AND FAMILY TEACHER STRAINER TENDER Unavaila ble Rosalba Pendleton APRN STRAINER TENDER Unavaila ble Marlo Madsen MD Unavailable [phone] Abby Vasquez MD Unavailable Airam Hodges PA-C Unavailable [phone] Zain Quintana MD Unavailable [phone] Latricia Pettit PA-C Unavailable [phone] Torri Francois MD Unavailable [phone] Abhishek Acevedo PA-C Unavailable [phone] Encounter Details Date Type Department Care Team (Late st Contact Info) Description 03/17/2024 MyC Medical Advice [facility] [address] [place] [phone] Tereza Tsai MA Social History Tobacco Use [...] Sex Assigned at Female 10/31/2021 7:59 AM OIL AGENT Legal Sex Female 10:14 AM OIL AGENT Gender Identity Female 10/31/2021 7:59 AM OIL AGENT Sexual Orientation Straight 10/31/2021 7: 59 AM OIL AGENT documented as of this encounter Plan of Treatment Upcoming Encounters Date Type Department Care Team (Late st Contact Info) Description 01/11/2025 9:00 AM CDT Virtual Visit [facility] Neurology [facility] [address] [place] [phone] Rosalba Pendleton APRN [id number] [place] [address] 05/01/2025 10:00 AM CDT Office Visit [facility] [address] [address] Abhishek Acevedo PA-C [address] [id number] 05/23/2025 10:40 AM CDT Virtual Visit [facility] [address] [place] [phone] Abby Vasquez MD [address] [place] [address] documented as of this encounter Visit Diagnoses Not on filedocumented in this encounter Additional Health Concerns Assessment Noted Time PHQ-9 Depression Total Score: 12 024 12:52 PM OIL AGENT documented as of this encounter Care Teams Flavoring Oil Filterer Relationship Specialty Start Date End Date Monty Musa MD PCP - General Family Medicine 08/13/21 Alfonso Tang Family [facility] 08/13/21 Dayanara Bee MD [address] 537[address] Pediatrics 12/26/14 Min Lange MD [address] [address] Neurology 03/30/16 Marlo Madsen MD [address] 889265 Cardiology 10/27/16 Mel Buckley, RN Nurse Coordinator Physical Medicine and Rehabilitation 12/02/16 Douglas Cadet MD Gastroenterology 08/13/21 Rosalba Pendleton APRN STRAINER TENDER [id number] [place] [address] Nurse Practitioner Neurology 09/05/21 Rosalba Pendleton APRN STRAINER TENDER [id number] [address] Assigned Neuroscience Provider 11/09/21 10/04/24 Marlo Madsen MD [address] [place] [address] 75 [place] [address] Assigned Heart and Vascular Provider 03/14/22 Abby Vasquez MD [address] [place] [address] Gastroenterology 07/16/22 Airam Hodges PA-C [address] [place] [address] Physician Project Management Specialist Surgery 07/19/23 Zain Quintana MD [address] [place] [address] Assigned Surgical Provider 10/07/23 Latricia Pettit PA-C [address] [place] [address] Assigned Gastroenterology Provider 10/15/23 Torri Francois MD [address] [place] [address] Assigned Neuroscience Provider 10/05/24 11/04/24 Abhishek Acevedo PA-C [address] [address] Assigned Neuroscience Provider 11/05/24 documented as of this encounter
--- OUTSIDE RECORDS SUMMARY | 2024-12-11 13:43 | XMS_ITS | Encounter Summary ---
Author Organization [facility] Address [address] [place] [address]. [place] [address] Care Team Providers Care Animal Ride Attendant Name Role Phone Monty Musa MD Primary Care Provider [phone] Alfonso Tang Unavailable Unavailable Dayanara Bee MD Unavailable [phone] Min Lange MD Unavailable Unavailable Marlo Madsen MD Unavailable [phone] Mel Buckley RN Unavailable [phone] Douglas Cadet MD Unavailable Rosalba ePndleton INTERACTIVE DEVELOPER SOLUTION COORDINATOR Unavaila ble Rosalba Pendleton APRN SOLUTION COORDINATOR Unavaila ble Marlo Madsen MD Unavailable [phone] Abby Vasquez MD Unavailable Airam Hodges PA-C Unavailable [phone] Zain Quintana MD Unavailable [phone] Latricia Pettit PA-C Unavailable [phone] Torri Francois MD Unavailable [phone] Abhishek Acevedo PA-C Unavailable [phone] Encounter Details Date Type Department Care Team (Late st Contact Info) Description 11/11/2023 MyC Medical Advice [facility] Gastroenterology Clinic [address] [place] [phone] Vivian Carter Social History Tobacco Use Types [...] Sex Assigned at Female 10/31/2021 7:59 AM TANK HOUSE OPERATOR Legal Sex Female 10:14 AM TANK HOUSE OPERATOR Gender Identity Female 10/31/2021 7:59 AM TANK HOUSE OPERATOR Sexual Orientation Straight 10/31/2021 7: 59 AM TANK HOUSE OPERATOR documented as of this encounter Plan of Treatment Upcoming Encounters Date Type Department Care Team (Late st Contact Info) Description 01/11/2025 9:00 AM CDT Virtual Visit [facility] Neurology Clinic [address] [place] [phone] Rosalba Pendleton APRN [address] [id number] [place] [address] 05/01/2025 10:00 AM CDT Office Visit [facility] Sleep Centers [place] [address] [phone] Abhishek Acevedo PA-C [address] [facility] [address] [place] [address] 05/23/2025 10:40 AM CDT Virtual Visit [facility] Gastroenterology Clinic [address] [place] [phone] Abby Vasquez MD [address] [place] [address] documented as of this encounter Visit Diagnoses Not on filedocumented in this encounter Additional Health Concerns Assessment Noted Time PHQ-9 Depression Total Score: 12 024 12:52 PM TANK HOUSE OPERATOR documented as of this encounter Care Teams Animal Ride Attendant Relationship Specialty Start Date End Date Monty Musa MD PCP - General Family Medicine 08/13/21 Alfonso Tang Family Practice 08/13/21 Dayanara Bee MD [address] [address] Pediatrics 12/26/14 Min Lange MD [address] [address] Neurology 03/30/16 Marlo Madsen MD [address] 199335 Cardiology 10/27/16 Mel Buckley, RN Nurse Coordinator Physical Medicine and Rehabilitation 12/02/16 Douglas Cadet MD Gastroenterology 08/13/21 Rosalba Pendleton APRN SOLUTION COORDINATOR [id number] [place] [address] Nurse Practitioner Neurology 09/05/21 Rosalba Pendleton APRN SOLUTION COORDINATOR [address] [id number] [place] [address] Assigned Neuroscience Provider 11/09/21 10/04/24 Marlo Madsen MD [address] [address] Assigned Heart and Vascular Provider 03/14/22 Abby Vasuqez MD [address] [place] [address] Gastroenterology 07/16/22 Airam Hodges PA-C [address] [place] [address] Physician Ice Handler Surgery 07/19/23 Zain Quintana MD [address] [place] [address] Assigned Surgical Provider 10/07/23 Latricia Pettit PA-C [address] [place] [address] Assigned Gastroenterology Provider 10/15/23 Torri Francois MD [address] [place] [address] 838525 Assigned Neuroscience Provider 10/05/24 11/04/24 Abhishek Acevedo PA-C [address] [address] Assigned Neuroscience Provider 11/05/24 documented as of this encounter
--- OUTSIDE RECORDS SUMMARY | 2024-12-11 13:43 | XMS_ITS | Clinical Summary ---
Author Organization [facility] Address [address] [place] [address]. [place] [address] Care Team Providers Care Peoplesoft Fscm Developer Name Role Phone Monty Musa MD Primary Care Provider Alfonso Tang Unavailable Unavailable Dayanara Bee MD Unavailable [phone] Min Lange MD Unavailable Unavailable Marlo Madsen MD Unavailable [phone] Mel Buckley RN Unavailable [phone] Douglas Cadet MD Unavailable [phone] Rosalba Pendleton APRN BUSINESS BANKING RELATIONSHIP MANAGER Unavaila ble Marlo Madsen MD Unavailable [phone] Abby Vasquez MD Unavailable Airam Hodges PA-C Unavailable [phone] Zain Quintana MD Unavailable [phone] Latricia Pettit PA-C Unavailable [phone] Abhishek Acevedo PA-C Unavailable [phone] Allergies Active Allergy Reactions Criticality Noted Date [...] Care Team Description 12/09/2024 MyC Medical Advice [facility] Neurology [address] [address] Torri Francois MD 11/23/2024 5:20 PM CDT Ancillary Procedure [facility] [address] [facility] [address] [place] [address] Torri Francois MD Psychogenic nonepileptic seizure 11/22/2024 Telephone [facility] Neurology [address] [address] Rosalba Pendleton APRN BUSINESS BANKING RELATIONSHIP MANAGER Prior Auth - Medication (erenumab-aooe (AIMOVIG) 140 MG/ML injection PA APPROVED) 11/15/2024 3:00 PM HIM DIRECTOR Ancillary Procedure [address] [place] [address] Abby Vasquez MD Constipation, unspecified constipation type 11/15/2024 11:20 AM HIM DIRECTOR Office Visit [facility] Gastroenterology Clinic [address] [phone] Abby Vasquez MD Constipation, unspecified constipation type (Primary Dx); Pelvic floor dysfunction 11/15/2024 Travel 11/01/2024 1:00 PM HIM DIRECTOR Ancillary Procedure [address] [phone] Latricia Pettit PA-C Chronic idiopathic constipation; Pelvic floor dysfunction; Irritable bowel syndrome with constipation 11/01/2024 MyC Medical Advice [facility] Gastroenterology Clinic [address] [phone] Latricia Pettit PA-C 11/01/2024 Travel 10/10/2024 8:30 AM HIM DIRECTOR Office Visit [facility] Sleep Centers [address] [phone] Abhishek Acevedo PA-C Delayed sleep phase syndrome (Primary Dx); Chronic insomnia; PLMD (periodic limb movement disorder) 10/10/2024 Travel 10/06/2024 11:30 AM HIM DIRECTOR Virtual Visit [facility] [address] [place] [phone] Dandre Fuentes, GC Family history of malignant neoplasm of colon (Primary Dx); Family history of malignant neoplasm of breast; Family history of carrier of genetic disease; Family history of malignant neoplasm of ovary; Family history of colonic polyps 10/03/2024 3:15 PM HIM DIRECTOR Virtual Visit [facility] Gastroenterology Clinic [address] [phone] Latricia Pettit PA-C Chronic idiopathic constipation (Primary Dx); Pelvic floor dysfunction; Irritable bowel syndrome with constipation 09/27/2024 Orders Only [address] [address] Dandre Fuentes GC Family history of malignant neoplasm of breast (Primary Dx); Family history of carrier of genetic disease; Family history of malignant neoplasm of colon; Family history of malignant neoplasm of ovary; Family history of colonic polyps 09/20/2024 11:30 AM HIM DIRECTOR Lab [facility] [address] [place] [address] Family history of malignant neoplasm of breast; Family history of carrier of genetic disease; Family history of malignant neoplasm of colon; Family history of malignant neoplasm of ovary; Family history of colonic polyps 09/20/2024 Travel 09/18/2024 12:00 PM HIM DIRECTOR Virtual Visit [address] [address] Dandre Fuentes GC Family history of malignant neoplasm of colon (Primary Dx); Family history of malignant neoplasm of breast; Family history of carrier of genetic disease; Family history of malignant neoplasm of ovary; Family history of colonic polyps 09/15/2024 MyC Medical Advice [address] [address] Dandre Fuentes GC 09/14/2024 Transcribe Orders GENERIC [...] Sex Assigned at Female 10/31/2021 7:59 AM HIM DIRECTOR Legal Sex Female 10:14 AM HIM DIRECTOR Gender Identity Female 10/31/2021 7:59 AM HIM DIRECTOR Sexual Orientation Straight 10/31/2021 7: 59 AM HIM DIRECTOR Last Filed Vital Signs Vital Sign Reading Time Taken Comments Blood Pressure 136/95 11/15/2024 11:17 AM HIM DIRECTOR Pulse 62 11/15/2024 11:17 AM HIM DIRECTOR Temperature 37 C (98.6 F) 06/07/2024 7:59 AM CDT Respiratory Rate 16 08/15/2024 10:30 AM HIM DIRECTOR Oxygen Saturation 100% 11/15/2024 11:17 AM HIM DIRECTOR Inhaled Oxygen Concentration - - Weight 79.5 kg (175 lb 3.2 oz) 11/15/2024 11:17 AM HIM DIRECTOR Height 167.6 cm (5' 6) 11/15/2024 11:17 AM HIM DIRECTOR Body Mass Index 28.28 11/15/2024 11:17 AM HIM DIRECTOR Plan of Treatment Upcoming Encounters Date Type Department Care Team (Late st Contact Info) Description 01/11/2025 9:00 AM CDT Virtual Visit [facility] Neurology Clinic [address] 3rd [place] [address] Rosalba Pendleton APRN [facility] [address] [facility] [id number] [place], [place] [address] 05/01/2025 10:00 AM CDT Office Visit [facility] Sleep [facility] [place] [address] [facility] [address] [place] [address] Abhishek Acevedo PA-C [address] [place] [address] 05/23/2025 10:40 AM CDT Virtual Visit [facility] Gastroenterology Clinic [address] 4[address] [place] [address] Abby Vasquez MD [address] [place] [address] Health Maintenance Due Date Last Done [...] Comments XR KUB Routine 11/15/2024 2:54 PM HIM DIRECTOR Constipation, unspecified constipation type XR ABDOMEN 1 VIEW Routine 11/01/2024 1:0 0 PM HIM DIRECTOR Chronic idiopathic constipation Pelvic floor dysfunction Irritable bowel syndrome with constipation LABORATORY MISCELLANEOUS RESULT Routine 09/20/2024 11:09 AM HIM DIRECTOR Family history of malignant neoplasm of breast Family history of carrier of genetic disease Family history of malignant neoplasm of colon Family history of malignant neoplasm of ovary Family history of colonic polyps LABORATORY MISCELLANEOUS ORDER Routine 09/20/2024 11:09 AM HIM DIRECTOR Family history of malignant neoplasm of breast Family history of carrier of genetic disease Family history of malignant neoplasm of colon Family history of malignant neoplasm of ovary Family history of colonic polyps TSH Routine 03/04/2022 12:35 PM CDT Irritable bowel syndrome with constipation COLONOSCOPY - HIM SCAN 10/16/2021 12:00 AM HIM DIRECTOR ABSTRACT PAP (HIM EXTERNAL RESULT) Routine 03/13/2015 from Last 3 Months or Most Recently Relevant to Health Maintenance Results * X-ray KUB (11/15/2024 2:54 PM HIM DIRECTOR) Anatomical Region Laterality Modality Abdomen/Pelvis Computed Radiogr aphy 11/15/2024 2:54 PM HIM DIRECTOR Impressions 11/15/2024 3:07 PM HIM DIRECTOR IMPRESSION: No radiographic evidence of bowel obstruction. Small colonic stool burden, decreased in comparison to prior radiograph. No acute bony abnormality. Narrative 11/15/2024 3:07 PM HIM DIRECTOR EXAM: XR KUB LOCATION: [facility] DATE: 11/15/2024 INDICATION: abdominal pain, please assess degree of stool burden COMPARISON: Abdominal radiograph 11/01/2024 Procedure Note Chan Justice MD - 11/15/2024 EXAM: XR KUB LOCATION: [facility] DATE: 11/15/2024 INDICATION: abdominal pain, please assess degree of stool burden COMPARISON: Abdominal radiograph 11/01/2024 IMPRESSION: No radiographic evidence of bowel obstruction. Small colonicstool burden, decreased in comparison to prior radiograph. No acute bonyabnormality. Abby Vasquez MD IMG DIAGNOSTIC IM AGING ORDERABLES Final Result * X-ray Abdomen 1 vw (11/01/2024 1:00 PM HIM DIRECTOR) Anatomical Region Laterality Modality Abdomen/Pelvis Computed Radiogr aphy 11/01/2024 1:00 PM HIM DIRECTOR Impressions 11/01/2024 1:07 PM HIM DIRECTOR IMPRESSION: Nonobstructive bowel gas pattern. Large amount of formed stool in the cecum, ascending colon and transverse colon; and small amount of formed stool in the descending colon. Narrative 11/01/2024 1:07 PM HIM DIRECTOR EXAM: XR ABDOMEN 1 VIEW LOCATION: [facility] DATE: 11/01/2024 INDICATION: Standing order > Please comment on stool gas pattern COMPARISON: 07/09/2023 Procedure Note Christine Santacruz MD - 11/01/2024 EXAM: XR ABDOMEN 1 VIEW LOCATION: [facility] DATE: 11/01/2024 INDICATION: Standing order > Please comment on stool gas pattern COMPARISON: 07/09/2023 IMPRESSION: Nonobstructive bowel gas pattern. Large amount of formed stoolin the cecum, ascending colon and transverse colon; and small amount offormed stool in the descending colon. Latricia Pettit PA-C IMG DIAGNOSTIC IMAGING ORDE RABLES Final Result * Laboratory Miscellaneous Result (09/20/2024 11:09 AM HIM DIRECTOR) Test Name GADIEL 10/13/2024 7:04 AM HIM DIRECTOR MISCELLANEOUS TESTING See Scanned Result LABORATORY MISCELLANEOUS RESULT-Scanned 10/13/2024 7:04 AM HIM DIRECTOR MISCELLANEOUS TESTING Blood BLOOD SPECIMEN / Unknown Venipuncture / Unknown 09/20/2024 11:09 AM HIM DIRECTOR 09/20/2024 11:09 AM HIM DIRECTOR Wendi Esparza APRN BUSINESS BANKING RELATIONSHIP MANAGER LAB - BLOOD ORDERABLES Edited Result - Final MISCELLANEOUS TESTING * Other Laboratory; [facility]; Common Hereditary Cancers panel- PLEASE SEE COMMENTS FOR BLOOD DRAW INSTRUCTIONS (Laboratory Miscellaneous Order) (09/20/2024 11:09 AM HIM DIRECTOR) Specimen Status Specimen received. Reordered and sent to performing laboratory. Report to follow upon completion. [facility] 09/21/2024 9:22 AM HIM DIRECTOR [facility] Performing Laboratory [facility] 09/21/2024 9:22 AM HIM DIRECTOR [facility] Test Name Common Hereditary Cancers panel- PLEASE SEE COMMENTS FOR BLOOD DRAW INSTRUCTIONS [facility] 09/21/2024 9:22 AM HIM DIRECTOR [facility] Test Code [id number] [facility] 09/21/2024 9:22 AM HIM DIRECTOR [facility] Blood BLOOD SPECIMEN / Unknown Venipuncture / Unknown 09/20/2024 11:09 AM HIM DIRECTOR 09/20/2024 11:09 AM HIM DIRECTOR Wendi Esparza APRN, CNP LAB - BLOOD ORDERABLES Final Result [facility] [place] [facility] [address] [facility], [address] [place] [address], [place] [facility] [address] [facility] Lab (no room number, 1st floor of clinic) [place] [address], [place] * TSH (03/04/2022 12:35 PM CDT) TSH 0.65 0.40 - 4.00 mU/L 03/04/2022 1:08 PM CDT [facility] Blood STRUCTURE OF RIGHT UPPER LIMB / Unknown Venipuncture / Unknown 03/04/2022 12:35 PM CDT 03/04/2022 12:37 PM CDT Douglas Cadet MD LAB - BLOOD ORDERABLE S Final Result [facility] [address] [facility] 1st [place] [address] * COLONOSCOPY - HIM SCAN (10/16/2021 12:00 AM HIM DIRECTOR) 10/16/2021 Provider Outside PROCEDURES Final Result * ABSTRACT PAP-NO CHARGE (03/13/2015) 03/13/2015 Narrative EXTERNAL LAB - 03/13/2015 ----- Message ----- From: Arina Posey LPN Sent: 03/21/2015 10:17 AM Subject: Last pap smear: 03/13/15 us Patient Reported LAB - HIM EXTERNAL RESULT Final Result EXTERNAL LAB External Lab from Last 3 Months or Most Recently Relevant to Health Maintenance Insurance [employer] MEDIC[place] [id number] [place] Advance Directives For more information, please contact: [phone] * Full Code (Latest Code Status on File) Date Activated Date Inactivated Comments 05/31/2024 1:08 PM 06/07/2024 5:44 PM All basic an d advanced life-sustaining interventions are performed as appropriate Question Answer Comments Code status determined by: Discussion with zeyade nt/ legal decision maker Care Teams Peoplesoft Fscm Developer Relationship Specialty Start Date End Date Monty Msua MD PCP - General Family Medicine 08/13/21 Alfonso Tang Family Practice 08/13/21 Dayanara Bee MD [address] [id number] Pediatrics 12/26/14 Min Lange MD [address] [place] [address] Neurology 03/30/16 Marlo Madsen MD [address] [place] [address] Cardiology 10/27/16 Mel Buckley, RN Nurse Coordinator Physical Medicine and Rehabilitation 12/02/16 Douglas Cadet MD Gastroenterology 08/13/21 Rosalba Pendleton APRN BUSINESS BANKING RELATIONSHIP MANAGER [address] [place], [place] [address], [place] [address] Nurse Practitioner Neurology 09/05/21 Marlo Madsen MD [address] [place] [address] 837605 Assigned Heart and Vascular Provider 03/14/22 Abby Vasquez MD [address] [place] [address] [id number] Gastroenterology 07/16/22 Airam Hodges PA-C [address] [place] [address] 200885 Physician Unloader Operator Surgery 07/19/23 Zain Quintana MD [address] [place] [address] Assigned Surgical Provider 10/07/23 Latricia Pettit PA-C [address]09 [place] [address] Assigned Gastroenterology Provider 10/15/23 Abhishek Acevedo PA-C [address] [address] Assigned Neuroscience Provider 11/05/24
--- OUTSIDE RECORDS SUMMARY | 2024-12-11 13:43 | XMS_ITS | Encounter Summary ---
Author Organization [facility] Address [address] [place] [address]. [place] [address] Care Team Providers Care Career And Transition Teacher Name Role Phone Monty Musa MD Primary Care Provider [phone] Alfonso Tang Unavailable Unavailable Dayanara Bee MD Unavailable [phone] Min Lange MD Unavailable Unavailable BendMarlo molina MD Unavailable [phone] Mel Buckley RN Unavailable [phone] Douglas Cadet MD Unavailable [phone] Rosalba Pendleton WATER TRAINER CARTRIDGE BELT PUNCHER Unavaila ble Rosalba Pendleton APRN CARTRIDGE BELT PUNCHER Unavaila ble Douglas Cadet MD Unavailable [phone] Marlo Madsen MD Unavailable [phone] Abby Vasquez MD Unavailable Abby Vasquez MD Unavailable Airam Hodges PA-C Unavailable [phone] Zain Quintana MD Unavailable [phone] Latricia Pettit PA-C Unavailable [phone] Torri Francois MD Unavailable Abhishek Acevedo PA-C Unavailable [phone] Reason for Visit * Reason Onset Date Comments Appointment 08/13/2021 Encounter Details Date Type Department Care Team (Late Contact Info) Description 08/13/2021 Telephone [facility] Gastroenterology Clinic [address] [place] [address] Douglas Cadet MD [address] [place] [address] [phone] Appointment Social History Tobacco Use Types Packs/Day Years Used Date Smoking Tobacco: Never Assessed Comments No Sex and Gender Information Value Date Recorded Sex Assigned at Female 10/31/2021 7:59 AM BOAT HOIST OPERATOR Legal Sex Female 10:14 AM BOAT HOIST OPERATOR Gender Identity Female 10/31/2021 7:59 AM BOAT HOIST OPERATOR Sexual Orientation Straight 10/31/2021 7: 59 AM BOAT HOIST OPERATOR COVID-19 Exposure Response Date Recorded In the last month, have you been in contact with someone who was confirmed or suspected to have Coronavirus / COVID-19? Unable to assess 08/13/2021 10:06 AM BOAT HOIST OPERATOR documented as of this encounter Miscellaneous Notes * Telephone Encounter - Ashleigh Shahid - 08/13/2021 10:07 AM CST [facility] [place] [facility] Call Center Phone Message May a detailed message be left on voicemail: yes Reason for Call: Other: Patient is being referred for IBS and is experiencing weight loss, 80lbs within the last year. Please review per scheduling guidelines. Thanks! Action Taken: Message routed to[facility] GI Travel Screening: Not Applicable HOIST OPERATOR documented in this encounter Plan of Treatment Upcoming Encounters Date Type Department Care Team (Late st Contact Info) Description 01/11/2025 9:00 AM CDT Virtual Visit [facility] Neurology Clinic [address] [place] [phone] Rosalba Pendleton APRN [id number] [place] [address] 05/01/2025 10:00 AM CDT Office Visit [facility] [address] [facility] [address] [place] [phone] Abhishek Acevedo PA-C [address] [place], [place] [id number] 05/23/2025 10:40 AM CDT Virtual Visit [facility] Gastroenterology [facility] [address] 4[address] [place] [phone] Abby Vasquez MD [address] [place] [address] documented as of this encounter Visit Diagnoses Not on filedocumented in this encounter Additional Health Concerns Infection Onset Date Last Indicated Resolved Time Rule Out COVID-19 04/03/2023 04/03/2023 04/04/2023 6:30 PM CDT documented as of this encounter Care Teams Career And Transition Teacher Relationship Specialty Start Date End Date Monty Musa MD PCP - General Family Medicine 08/13/21 Alfonso Tang Family Practice 08/13/21 Dayanara Bee MD [address] [address] Pediatrics 12/26/14 Min Lange MD [address] [address] Neurology 03/30/16 Marlo Madsen MD [address] [address] Cardiology 10/27/16 Mel Buckley, RN Nurse Coordinator Physical Medicine and Rehabilitation 12/02/16 Douglas Cadet MD Gastroenterology 08/13/21 Rosalba Pendleton APRN CARTRIDGE BELT PUNCHER [address] [place] [address] [phone] Nurse Practitioner Neurology 09/05/21 Rosalba Pendleton APRN CARTRIDGE BELT PUNCHER [address] [place] [address] 308345 Assigned Neuroscience Provider 11/09/21 10/04/24 Douglas Cadet MD Assigned Gastroenterology Provider 03/14/22 09/03/23 Marlo Madsen MD [address] [place] [address] [phone] Assigned Heart and Vascular Provider 03/14/22 Abby Vasquez MD [address] [place] [address] 680965 Gastroenterology 07/16/22 Abby Vasquez MD [address] [place] [address] Assigned PCP 09/26/22 10/06/23 Airam Hodges PA-C [address] [place] [address] [phone] Physician Drywall Hanger Helper Surgery 07/19/23 Zain Quintana MD [address] [place] [address] Assigned Surgical Provider 10/07/23 Latricia Pettit PA-C [address] [place] [address] Assigned Gastroenterology Provider 10/15/23 Torri Francois MD [address] [place] [address] Assigned Neuroscience Provider 10/05/24 11/04/24 Abhishek Acevedo PA-C [address] [place] [address] [address] Assigned Neuroscience Provider 11/05/24 documented as of this encounter
--- OUTSIDE RECORDS SUMMARY | 2024-12-11 13:43 | XMS_ITS | Encounter Summary ---
Author Organization [facility] Address [address] [place] [address]. [place] [address] Care Team Providers Care Healthcare Risk Control Consultant Name Role Phone Monty Musa MD Primary Care Provider Alfonso Tang Unavailable Unavailable Dayanara Bee MD Unavailable [phone] Min Lange MD Unavailable Unavailable Marlo Madsen MD Unavailable [phone] Mel Buckley RN Unavailable [phone] Douglas Cadet MD Unavailable Rosalba Pendleton SWITCHBOARD OPERATOR SUPERVISOR SUPERVISOR COFFEE Unavaila ble Rosalba Pendleton APRN SUPERVISOR COFFEE Unavaila ble Marlo Madsen MD Unavailable [phone] Abby Vasquez MD Unavailable Airam Hodges PA-C Unavailable [phone] Zain Quintana MD Unavailable [phone] Latricia Pettit PA-C Unavailable [phone] Torri Francois MD Unavailable [phone] Abhishek Acevedo PA-C Unavailable [phone] Encounter Details Date Type Department Care Team (Late st Contact Info) Description 03/27/2024 MyC Medical Advice [facility] Neurology Clinic [address] [place] [phone] Ximena Belcher Social History Tobacco Use Types [...] Sex Assigned at Female 10/31/2021 7:59 AM SWEAT BAND SEWER Legal Sex Female 10:14 AM SWEAT BAND SEWER Gender Identity Female 10/31/2021 7:59 AM SWEAT BAND SEWER Sexual Orientation Straight 10/31/2021 7: 59 AM SWEAT BAND SEWER documented as of this encounter Plan of Treatment Upcoming Encounters Date Type Department Care Team (Late Contact Info) Description 01/11/2025 9:00 AM CDT Virtual Visit [facility] Neurology Clinic [address] [phone] Rosalba Pendleton APRN [address] [id number] [place] [address] 05/01/2025 10:00 AM CDT Office Visit [facility] Sleep Centers [address] [phone] Abhishek Acevedo PA-C [address] [address] 05/23/2025 10:40 AM CDT Virtual Visit [facility] Gastroenterology Clinic [address] [place] [phone] Abby Vasquez MD [address] [place] [address] documented as of this encounter Visit Diagnoses Not on filedocumented in this encounter Additional Health Concerns Assessment Noted Time PHQ-9 Depression Total Score: 12 024 12:52 PM SWEAT BAND SEWER documented as of this encounter Care Teams Healthcare Risk Control Consultant Relationship Specialty Start Date End Date Monty Musa MD PCP - General Family Medicine 08/13/21 Alfonso Tang Family Practice 08/13/21 Dayanara Bee MD [address] [phone] Pediatrics 12/26/14 Min Lange MD [address] [address] Neurology 03/30/16 aMrlo Madsen MD [address] [phone] Cardiology 10/27/16 Mel Buckley, RN Nurse Coordinator Physical Medicine and Rehabilitation 12/02/16 Douglas Cadet MD Gastroenterology 08/13/21 Rosalba Pendleton APRN SUPERVISOR COFFEE [address] [facility] [place] [address] Nurse Practitioner Neurology 09/05/21 Rosalba Pendleton APRN SUPERVISOR COFFEE [address] [facility] [place] [address] Assigned Neuroscience Provider 11/09/21 10/04/24 Marlo Madsen MD [address] [address] Assigned Heart and Vascular Provider 03/14/22 Abby Vasquez MD [address] [place] [address] Gastroenterology 07/16/22 Airam Hodges PA-C [address] [place] [address] Physician Fans Clerk Surgery 07/19/23 Zain Quintana MD [address] [place] [address] Assigned Surgical Provider 10/07/23 Latricia Pettit PA-C [address] [place] [address] Assigned Gastroenterology Provider 10/15/23 Torri Francois MD [address] [place] [address] 075565 Assigned Neuroscience Provider 10/05/24 11/04/24 Abhishek Acevedo PA-C [address] [address] Assigned Neuroscience Provider 11/05/24 documented as of this encounter
--- OUTSIDE RECORDS SUMMARY | 2024-12-11 13:43 | XMS_ITS | Encounter Summary ---
Author Organization [facility] Address [address] [place] [address]. [place] [address] Care Team Providers Care School Speech Language Pathologist Name Role Phone Monty Musa MD Primary Care Provider Alfonso Tang Unavailable Unavailable Dayanara Bee MD Unavailable [phone] Min Lange MD Unavailable Unavailable Marlo Madsen MD Unavailable [phone] Mel Buckley RN Unavailable [phone] Douglas Cadet MD Unavailable Rosalba Pendleton FAMILY REUNIFICATION SPECIALIST HANDLE MAKER Unavaila ble Rosalba Pendleton APRN HANDLE MAKER Unavaila ble Marlo Madsen MD Unavailable [phone] Abby Vasquez MD Unavailable Airam Hodges PA-C Unavailable [phone] Zain Quintana MD Unavailable [phone] Latricia Pettit PA-C Unavailable [phone] Torri Francois MD Unavailable [phone] Abhishek Acevedo PA-C Unavailable [phone] Encounter Details Date Type Department Care Team (Late st Contact Info) Description 10/13/2023 MyC Medical Advice [facility] Gastroenterology Clinic [address] [place] [phone] Vivian Carter Social History Tobacco Use Types [...] Sex Assigned at Female 10/31/2021 7:59 AM CONCRETE FLOAT MAKER Legal Sex Female 10:14 AM CONCRETE FLOAT MAKER Gender Identity Female 10/31/2021 7:59 AM CONCRETE FLOAT MAKER Sexual Orientation Straight 10/31/2021 7: 59 AM CONCRETE FLOAT MAKER documented as of this encounter Plan of Treatment Upcoming Encounters Date Type Department Care Team (Late Contact Info) Description 01/11/2025 9:00 AM CDT Virtual Visit [facility] Neurology Clinic [address] [place] [phone] Rosalba Pendleton APRN [address] [id number] [place] [address] 05/01/2025 10:00 AM CDT Office Visit [facility] [place] [address] [phone] Abhishek Acevedo PA-C [address] [facility] [address] [place] [address] 05/23/2025 10:40 AM CDT Virtual Visit [facility] Gastroenterology Clinic [address] [place] [phone] Abby Vasquez MD [address] [place] [address] documented as of this encounter Visit Diagnoses Not on filedocumented in this encounter Additional Health Concerns Assessment Noted Time PHQ-9 Depression Total Score: 12 023 8:53 AM CDT documented as of this encounter Care Teams School Speech Language Pathologist Relationship Specialty Start Date End Date Monty Musa MD PCP - General Family Medicine 08/13/21 Alfonso Tang Family Practice 08/13/21 Dayanara Bee MD [address] 955285 Pediatrics 12/26/14 Min Lange MD [address] [address] Neurology 03/30/16 Marlo Madsen MD [address] 755685 Cardiology 10/27/16 Mel Buckley, RN Nurse Coordinator Physical Medicine and Rehabilitation 12/02/16 Douglas Cadet MD Gastroenterology 08/13/21 Rosalba Pendleton APRN HANDLE MAKER [address] [facility] [place] [address] Nurse Practitioner Neurology 09/05/21 Rosalba Pendleton APRN HANDLE MAKER [address] [facility] [place] [address] Assigned Neuroscience Provider 11/09/21 10/04/24 Marlo Madsen MD [address] [address] Assigned Heart and Vascular Provider 03/14/22 Abby Vasquez MD [address] [place] [address] Gastroenterology 07/16/22 Airam Hodges PA-C [address] [place] [address] Physician Medical Policy Specialist Surgery 07/19/23 Zain Quintana MD [address] [place] [address] Assigned Surgical Provider 10/07/23 Latricia Pettit PA-C [address] [place] [address] Assigned Gastroenterology Provider 10/15/23 Torri Francois MD [address] [place] [address] [phone] Assigned Neuroscience Provider 10/05/24 11/04/24 Abhishek Acevedo PA-C [address] [address] Assigned Neuroscience Provider 11/05/24 documented as of this encounter
== END 2024-12-11 14:01 | disposition home or self-care (01) ==
PROVIDERS: Emergency Provider Emergency Medicine Emergency Medical Services; PCP Family Medicine
DX: R20.2 Paresthesia of skin (principal)
CPT/HCPCS: 93971; 99283; 99284

== ENCOUNTER 2025-06-08 15:18 | Outpatient (CLI) | payer MEDICARE, OTHER, MEDICAID, SELFPAY | END 2025-06-08 15:19 | disposition home or self-care (01) | LOC: NFLDREF 06-11 09:53 | PROVIDERS: PCP Family Medicine; Referring Provider Family Medicine; Visit Provider Physician Assistant | DX: N39.0 Urinary tract infection, site not specified (principal) | CPT/HCPCS: 87086 ==